=== PATIENT | female | born 1960 | race Caucasian/White ===

== ENCOUNTER 2024-02-20 14:43 | Outpatient (AMB) | payer MEDICARE, MEDICAID, SELFPAY ==
[2024-02-20 14:55] VITALS: PULSE 79; O2SAT 97; BMI 54.9
--- NOTE | 2024-02-20 14:55 | MHC.OFFVIS ---
Vital Signs 02/20/24 14:55 Height 5 ft 2 in Weight 300 lb BMI 54.9 Pulse 79 Pulse Source Pulse Oximeter Pulse Oximetry (%) 97 Oxygen Delivery Method Room Air Intake Visit Reasons: Chronic Low Back Pain Allergies No Known Allergies Allergy (Verified 02/20/24 17:25) HPI Comments Details: Lilli is a very pleasant 63-year-old who presents the office today for evaluation and management of their chronic right lower back pain Patient has been suffering with this pain for greater than 10 years, does endorse many accidents, falls and injuries in the past Right lower back pain with radiation down the thigh to the knee. Pain does not travel past the knee. Denies numbness, tingling, weakness of either lower extremity. History of bilateral knee replacements, does endorse chronic knee pain also Pain today is rated as a 10/10, constant. Pain is exacerbated by moving, bending, twisting, sitting for extended period of time, standing for extended period of time, doing housework. Patient is currently taking tramadol every 4-6 hours with oxycodone as needed. Cyclobenzaprine 10 mg 3 times daily as needed. Meloxicam daily. All without improvement of the pain. Currently attending formal physical therapy as well as seeing a physical therapist on their own. Working on core strength but there pain persists. Currently also doing home exercise therapy and water aerobics Patient has been using a sacroiliac joint belt without improvement of her pain. Endorses some urinary dribbling over the last several months, denies any loss of bladder without sensory awareness. Denies saddle anesthesia. Denies loss of bowel. In terms of muscle damage condition is described as spasming, stabbing, sharp, shooting, tiring, exhausting, cramping, numb. Pain is negatively impacting patient's enjoyment of life, general activity, recreational activities, relationships with people, sleep, walking, dressing, yd work, cooking, hygiene, housework. Review of Systems Const All systems reviewed & are unremarkable except as noted in HPI and below Physical Exam Vital Signs: Last Vital Signs Pulse 79 02/20/24 14:55 Pulse Ox 97 02/20/24 14:55 Oxygen Delivery Method Room Air 02/20/24 14:55 BMI result Body Mass Index 54.9 General: awake, alert, oriented. Answers questions appropriately. Fully engaged in examination. Skin: warm, dry, intact HEENT: Normocephalic. Hearing intact. Cardiac: External chest normal in appearance. Respiratory: No cough, audible wheezing or stridor. Abdomen: without gross distension. MS: No obvious swelling or deformities. Able to transition from sit to stand unassisted. Ambulates with bilaterally normal heel strike and toe off Bilateral lower extremity strength 5/5 Tenderness over right PSIS [place] positive in the right Thigh thrust positive on the right SI compression positive on the right SLR negative bilaterally Decreased range of motion of lumbar spine Facet loading positive Neurological: Oriented to person, place, time and situation. Thought process intact. Ambulates with the use of a cane/walker Psychiatric: Appropriate mood and affect. Good judgment and insight. Results Reviewed Results Reviewed: 06/2023 XR LS 04/2022 MRI LS Assessment & Plan Assessment & Plan (1) Sacroiliac joint dysfunction of right side: Code(s): M53.3 - Sacrococcygeal disorders, not elsewhere classified Category: Medical (2) Bilateral knee pain: Code(s): M25.561 - Pain in right knee; M25.562 - Pain in left knee Category: Medical Plan Patient presents the office today for evaluation management of their chronic right lower back pain History, physical exam and provocative testing consistent with right sacroiliac joint dysfunction Patient has exhausted conservative therapy including SI belt, PT, home exercise program, nonsteroidal anti-inflammatory medications, prescription medications, aquatherapy and aepe-cha-gthpiqa medications Discussed options for treatment including diagnostic interventional testing, epidural steroid injections, peripheral nerve stimulation with Sprint, RFA and more permanent neuromodulation. Informational pamphlets provided. TENS unit ordered, pamphlet provided to patient with instructions for use. There will be no call from the [employer] to the injury delivery of the device and supplies. Will schedule for diagnostic right sacroiliac joint injection under fluoroscopy guidance with local anesthetic. All questions and concerns have been answered and patient agrees with the plan. Follow up after injections and sooner if needed. Coding Level of Care Code New Pt Level 4 (56549) Diagnoses Sacroiliac joint dysfunction of right side M53.3 Bilateral knee pain M25.561; M25.562
== END 2024-02-20 17:00 | disposition home or self-care (01) ==
PROVIDERS: PCP Pediatrics; Referring Provider Pediatrics; Visit Provider Registered Nurse Emergency
DX: M53.3 Sacrococcygeal disorders, not elsewhere classified (principal); M25.561 Pain in right knee; M25.562 Pain in left knee
CPT/HCPCS: 99204

== ENCOUNTER → 2024-02-20 14:43 | Outpatient (BNVA) | payer MEDICARE, MEDICAID, SELFPAY | PROVIDERS: PCP Pediatrics; Referring Provider Pediatrics; Visit Provider Registered Nurse Emergency | DX: M53.3 Sacrococcygeal disorders, not elsewhere classified (principal); M25.561 Pain in right knee; M25.562 Pain in left knee | CPT/HCPCS: 99202 ==

== ENCOUNTER 2024-04-15 07:08 | Outpatient (REF) | payer MEDICARE, MEDICAID, SELFPAY | END 2024-04-15 07:09 | disposition home or self-care (01) | LOC: CF 07:08 | PROVIDERS: Visit Provider Anesthesiology | DX: M53.3 Sacrococcygeal disorders, not elsewhere classified (principal); M25.561 Pain in right knee; M25.562 Pain in left knee | CPT/HCPCS: 27096; J2795; Q9967 ==

== ENCOUNTER 2024-04-15 09:20 | Outpatient (AMB) | payer MEDICARE, MEDICAID, SELFPAY ==
--- NOTE | 2024-04-15 09:27 | MHC.OFFVIS ---
Vital Signs 04/15/24 09:41 04/15/24 10:58 BP 172/75 H 180/90 H Blood Pressure Location Lt radial Lt radial Position Sitting Sitting Respiration 16 16 Pulse 67 65 Pulse Source Pulse Oximeter Pulse Oximeter Pulse Oximetry (%) 97 98 Oxygen Delivery Method Room Air Room Air Comment pre-op post-op Intake Visit Reasons: RIGHT DIAGNOSTIC SIJ INJECTION Allergies No Known Allergies Allergy (Verified 04/15/24 10:58) Physical Exam Vital Signs: Last Vital Signs Pulse 65 04/15/24 10:58 Resp 16 04/15/24 10:58 BP 180/90 H 04/15/24 10:58 Pulse Ox 98 04/15/24 10:58 Oxygen Delivery Method Room Air 04/15/24 10:58 Assessment & Plan Assessment & Plan (1) Sacroiliac joint dysfunction of right side: Code(s): M53.3 - Sacrococcygeal disorders, not elsewhere classified Category: Medical Plan: Right diagnostic sacroiliac joint injection Informed consent was explained thoroughly to the patient. All questions about benefits and risks for the procedure were answered. Patient came to the operating room and was positioned prone on the operating table with the pillow under the abdomen. Time out was performed delineating name and of the patient, allergies and the nature of the procedure. The lower back and buttocks of the patient were prepped with ChloraPrep prepped and draped with sterile utility towels. C-arm was brought over the operating field and sq picture of patient's pelvis was demonstrated on the screen. For the right joint tilting C-arm contralateral to the site of the joint the most posterior portion of the joints was superimposed with anterior silhouette of the joint. large SI joint insufficiency was noted on the screen. Skin was injected in the projection of the joint slightly medial to the location of the joint with 25 gauge 1/2 inch needle using local lidocaine 2% .After that 22 gauge 3 and 1/2 inch needle was driven to the right joint in tunnel vision fashion. When needle entered the joint capsule injection of the contrast was performed demonstrating intra-articular and minimally periarticular spread of the contrast. After that 5 cc. of ropivacaine 0.5% was injected into the joint. Upon completion of the injections the needle was removed Sterile dressing was applied. Upon completion of the injection patient was taken outside of the operating room to the recovery room where recovered uneventfully. (2) Bilateral knee pain: Code(s): M25.561 - Pain in right knee; M25.562 - Pain in left knee Category: Medical Plan Patient presents the office today for evaluation management of their chronic right lower back pain History, physical exam and provocative testing consistent with right sacroiliac joint dysfunction Patient has exhausted conservative therapy including SI belt, PT, home exercise program, nonsteroidal anti-inflammatory medications, prescription medications, aquatherapy and iadx-yza-zcvxnpl medications Discussed options for treatment including diagnostic interventional testing, epidural steroid injections, peripheral nerve stimulation with Sprint, RFA and more permanent neuromodulation. Informational pamphlets provided. TENS unit ordered, pamphlet provided to patient with instructions for use. There will be no call from the company to the injury delivery of the device and supplies. Will schedule for diagnostic right sacroiliac joint injection under fluoroscopy guidance with local anesthetic. All questions and concerns have been answered and patient agrees with the plan. Follow up after injections and sooner if needed. Orders: Orders FL guidance in treatment room Today M53.3 - Sacrococcygeal disorders, not elsewhere classified Coding Level of Care Code Procedure Only Diagnoses Sacroiliac joint dysfunction of right side M53.3 Bilateral knee pain M25.561; M25.562
[2024-04-15 09:41] VITALS: BP 172/75; PULSE 67; RESP 16; O2SAT 97
[2024-04-15 10:58] VITALS: BP 180/90; PULSE 65; RESP 16; O2SAT 98
== END 2024-04-15 10:56 | disposition home or self-care (01) ==
LOC: HO.PMCPRC 09:20
PROVIDERS: PCP Pediatrics; Visit Provider Anesthesiology
DX: M53.3 Sacrococcygeal disorders, not elsewhere classified (principal); M25.561 Pain in right knee; M25.562 Pain in left knee
CPT/HCPCS: 27096

== ENCOUNTER 2024-04-17 18:06 | Outpatient (REF) | payer MEDICARE, MEDICAID, SELFPAY ==
--- NOTE | ~2024-04-17 | MR_ITS ---
EXAMINATION: MR LUMBAR SPINE WITHOUT CONTRAST CLINICAL INFORMATION: Lower back pain. COMPARISON: None available. TECHNIQUE: MRI of the lumbar spine was obtained using routine sequences without contrast. FINDINGS: Minimal left convex curvature of the lumbar spine. Degenerative grade 1 anterolisthesis of L4 on L5. Moderate degenerative disc disease from L2-S1. Mild degenerative disc disease at all additional levels. Associated mixed Modic type discogenic endplate changes including Modic type I discogenic edema from T12-S1 . Mild marrow edema within the posterior elements of L3-S1 consistent with degenerative stress reaction. No additional suspicious marrow edema. The vertebral body heights are well-maintained. The conus medullaris terminates at the level of L1. The distal spinal cord is normal in appearance. No significant abnormalities of the paraspinal musculature. Limited evaluation of the intra-abdominal structures without significant abnormalities. The abdominal aorta is of normal contour and caliber. AXIAL SPINAL LEVELS: L1-L2: Mild diffuse disc bulge. There is mild bilateral facet joint arthropathy. There is mild bilateral neural foraminal stenosis. There is no spinal canal stenosis. L2-L3: Mild diffuse disc bulge. There is severe right and moderate left facet joint arthropathy. There is moderate bilateral neural foraminal stenosis. There is stenosis of the subarticular zones with moderate spinal canal stenosis centrally. L3-L4: Moderate diffuse disc bulge with posterior osseous ridging. There is moderate bilateral facet joint arthropathy. There is severe bilateral neural foraminal stenosis. There is stenosis of the subarticular zones with moderate spinal canal stenosis centrally. L4-L5: Prominent diffuse disc bulge exacerbated by uncovering from anterolisthesis. There is severe bilateral facet joint arthropathy. There is moderate to severe bilateral neural foraminal stenosis. There is stenosis of the subarticular zones with moderate to severe spinal canal stenosis centrally. L5-S1: Moderate diffuse disc bulge. Left lateral osteophyte complex abutting the exited left L5 nerve root. There is severe right and moderate left facet joint arthropathy. There is moderate to severe left and moderate right neural foraminal stenosis. There is narrowing of the subarticular zones with no overt spinal canal stenosis centrally. MR/MR lumbar spine wo con IMPRESSION: Moderate to advanced multilevel degenerative spondyloarthropathy of the lumbar spine as described in detail above. Most notably, there is moderate to severe spinal canal stenosis at L4-L5. Moderate spinal canal stenoses at L2-L3 and L3-L4. Narrowing/stenoses of the subarticular zones from L2-S1. Moderate to severe neural foraminal stenoses from L2-S1. Electronically signed by: Ton Del Castillo DO 04/24/2024 02:44 PM EDT
== END 2024-04-17 18:07 | disposition home or self-care (01) ==
LOC: HO.MRI 18:06
PROVIDERS: PCP Pediatrics; Visit Provider Registered Nurse Emergency
DX: M54.50 Low back pain, unspecified (principal)
CPT/HCPCS: 72148

== ENCOUNTER 2024-04-18 10:56 | Outpatient (AMB) | payer MEDICARE, MEDICAID, SELFPAY ==
--- NOTE | 2024-04-18 15:05 | A.OFFVIS_ITS ---
Intake Visit Reasons: RIGHT DIAGNOSTIC SIJ INJECTION/05/06/24 Allergies No Known Allergies Allergy (Verified 04/15/24 10:58) HPI Comments Details: Telephone visit performed today for follow-up, 2 days status post right diagnostic sacroiliac joint injection She reports for 3 hours after the procedure she had no pain and her mobility was significantly improved. After this pain continued to improve though she did find that the instability and difficulty with walking and lifting her right leg remained Overall she would reports 80% pain relief in the hours after the procedure. She would like referral to spine surgeon can evaluate her for SI fusion with external hardware Intake note: Lilli is a very pleasant 63-year-old who presents the office today for evaluation and management of their chronic right lower back pain Patient has been suffering with this pain for greater than 10 years, does endorse many accidents, falls and injuries in the past Right lower back pain with radiation down the thigh to the knee. Pain does not travel past the knee. Denies numbness, tingling, weakness of either lower extremity. History of bilateral knee replacements, does endorse chronic knee pain also Pain today is rated as a 10/10, constant. Pain is exacerbated by moving, bending, twisting, sitting for extended period of time, standing for extended period of time, doing housework. Patient is currently taking tramadol every 4-6 hours with oxycodone as needed. Cyclobenzaprine 10 mg 3 times daily as needed. Meloxicam daily. All without improvement of the pain. Currently attending formal physical therapy as well as seeing a physical therapist on their own. Working on core strength but there pain persists. Currently also doing home exercise therapy and water aerobics Patient has been using a sacroiliac joint belt without improvement of her pain. Endorses some urinary dribbling over the last several months, denies any loss of bladder without sensory awareness. Denies saddle anesthesia. Denies loss of bowel. In terms of muscle damage condition is described as spasming, stabbing, sharp, shooting, tiring, exhausting, cramping, numb. Pain is negatively impacting patient's enjoyment of life, general activity, recreational activities, relationships with people, sleep, walking, dressing, yd work, cooking, hygiene, housework. Review of Systems Const All systems reviewed & are unremarkable except as noted in HPI and below Physical Exam Vital signs and physical exam deferred, telephone visit only Telehealth Telehealth Telehealth Platform: Telephone Location of provider rendering services: practice address Location of patient: address on file Patient Identification confirmed using: Name, : Yes Telehealth method: voice only Patient verbally consented to treatment: Yes Patient verbally consented to billing insurance company: Yes Patient informed of any privacy concerns related to visit: Yes Minutes spent on Phone/Video with Pt.: 32 Results Reviewed Results Reviewed: 06/2023 XR LS 04/2022 MRI LS Assessment & Plan Assessment & Plan (1) Sacroiliac joint dysfunction of right side: Code(s): M53.3 - Sacrococcygeal disorders, not elsewhere classified Category: Medical (2) Bilateral knee pain: Code(s): M25.561 - Pain in right knee; M25.562 - Pain in left knee Category: Medical (3) Gait instability: Code(s): R26.81 - Unsteadiness on feet Category: Medical Plan Telephone visit completed today for follow-up, today status post right diagnostic sacroiliac joint injection Reports 80% pain relief with the hours after the procedure with improvement in function and mobility. Pain has now returned. Order placed for occupational therapy to assist with ambulation Patient has exhausted conservative therapy including SI belt, PT, home exercise program, nonsteroidal anti-inflammatory medications, prescription medications, aquatherapy and [id number]-[id number] medications Will schedule for therapeutic right sacroiliac joint injection under fluoroscopy guidance with local anesthetic. Referral placed for neuro spine at [facility] to discuss SI fusion with external hardware. All questions and concerns have been answered and patient agrees with the plan. Follow up after injections and sooner if needed. Orders: Orders 2 OT Evaluation and Treatment Today M53.3 - Sacrococcygeal disorders, not elsewhere classified, R26.81 - Unsteadiness on feet Referrals 2 Neuro Spine Referral M53.3 - Sacrococcygeal disorders, not elsewhere classified, R26.81 - Unsteadiness on feet Medications: New 2 methocarbamol No driving while taking this medication. Do no take with alcohol or other [employer] Depressants 500 mg PO TID PRN 90 tabs 1RF muscle spasm Coding Level of Care Code Tele Est Pt Level 3 (71180) Complex EM visit Add On G2211 Diagnoses Sacroiliac joint dysfunction of right side M53.3 Bilateral knee pain M25.561; M25.562 Gait instability R26.81
== END 2024-04-18 11:09 | disposition home or self-care (01) ==
PROVIDERS: PCP Pediatrics; Visit Provider Registered Nurse Emergency
DX: M53.3 Sacrococcygeal disorders, not elsewhere classified (principal); M25.561 Pain in right knee; M25.562 Pain in left knee; R26.81 Unsteadiness on feet
CPT/HCPCS: 99443

== ENCOUNTER → 2024-04-18 10:56 | Outpatient (BNVA) | payer MEDICARE, MEDICAID, SELFPAY | PROVIDERS: PCP Pediatrics; Visit Provider Registered Nurse Emergency ==

== ENCOUNTER 2024-04-24 10:43 | Outpatient (AMB) | payer MEDICARE, MEDICAID, SELFPAY ==
--- NOTE | 2024-04-24 10:27 | A.OFFVIS_ITS ---
Vital Signs 3 04/24/24 10:43 Height 5 ft 2 in Weight 300 lb BMI 54.9 Intake Visit Reasons: Med discussion Allergies No Known Allergies Allergy (Verified 04/24/24 10:44) HPI Comments Details: Telephone visit completed today for follow up, patient with some questions about medications Has been taking Methocarbamol with minimal effect, she was advised yesterday she can increase to 1000mg TID as needed. Has questions about dosing and when to take in regards to her other medications continues with right SIJ pain and reports worsening function and mobility using two canes and at times a walker for ambulation has appt with [facility] for eval next Sunday Prior: Telephone visit performed today for follow-up, 2 days status post right diagnostic sacroiliac joint injection She reports for 3 hours after the procedure she had no pain and her mobility was significantly improved. After this pain continued to improve though she did find that the instability and difficulty with walking and lifting her right leg remained Overall she would reports 80% pain relief in the hours after the procedure. She would like referral to spine surgeon can evaluate her for SI fusion with external hardware Intake note: Lilli is a very pleasant 63-year-old who presents the office today for evaluation and management of their chronic right lower back pain Patient has been suffering with this pain for greater than 10 years, does endorse many accidents, falls and injuries in the past Right lower back pain with radiation down the thigh to the knee. Pain does not travel past the knee. Denies numbness, tingling, weakness of either lower extremity. History of bilateral knee replacements, does endorse chronic knee pain also Pain today is rated as a 10/10, constant. Pain is exacerbated by moving, bending, twisting, sitting for extended period of time, standing for extended period of time, doing housework. Patient is currently taking tramadol every 4-6 hours with oxycodone as needed. Cyclobenzaprine 10 mg 3 times daily as needed. Meloxicam daily. All without improvement of the pain. Currently attending formal physical therapy as well as seeing a physical therapist on their own. Working on core strength but there pain persists. Currently also doing home exercise therapy and water aerobics Patient has been using a sacroiliac joint belt without improvement of her pain. Endorses some urinary dribbling over the last several months, denies any loss of bladder without sensory awareness. Denies saddle anesthesia. Denies loss of bowel. In terms of muscle damage condition is described as spasming, stabbing, sharp, shooting, tiring, exhausting, cramping, numb. Pain is negatively impacting patient's enjoyment of life, general activity, recreational activities, relationships with people, sleep, walking, dressing, yd work, cooking, hygiene, housework. Review of Systems Const All systems reviewed & are unremarkable except as noted in HPI and below Physical Exam Vital signs and physical exam deferred, telephone visit only Telehealth Telehealth Telehealth Platform: Telephone Location of provider rendering services: practice address Location of patient: address on file Patient Identification confirmed using: Name, : Yes Telehealth method: voice only Patient verbally consented to treatment: Yes Patient verbally consented to billing insurance company: Yes Patient informed of any privacy concerns related to visit: Yes Minutes spent on Phone/Video with Pt.: 14 Results Reviewed Results Reviewed: 06/2023 XR LS 04/2022 MRI LS Assessment & Plan Assessment & Plan (1) Sacroiliac joint dysfunction of right side: Code(s): M53.3 - Sacrococcygeal disorders, not elsewhere classified Category: Medical (2) Bilateral knee pain: Code(s): M25.561 - Pain in right knee; M25.562 - Pain in left knee Category: Medical (3) Gait instability: Code(s): R26.81 - Unsteadiness on feet Category: Medical Plan Telephone visit completed today for follow-up Lengthy discussion today with patient about methocarbamol, all questions were answered Previously reported 80% pain relief with the hours after the diagnostic right SIJ injection with improvement in function and mobility. She has exhausted conservative therapy including SI belt, PT, home exercise program, nonsteroidal anti-inflammatory medications, prescription medications, aquatherapy and ombc-web-hfywadj medications Will schedule for therapeutic right sacroiliac joint injection under fluoroscopy guidance with local anesthetic. C/W plan for evaluation with [facility] for SIJ fusion with external hardware on Sunday04/28/24. All questions and concerns have been answered and patient agrees with the plan. Follow up after injections and sooner if needed. Coding Level of Care Code Tele Est Pt Level 3 (36051) Complex EM visit Add On G2211 Diagnoses Sacroiliac joint dysfunction of right side M53.3 Bilateral knee pain M25.561; M25.562 Gait instability R26.81
[2024-04-24 10:43] VITALS: BMI 54.9
== END 2024-04-24 10:43 | disposition home or self-care (01) ==
LOC: HO.PMC 10:43
PROVIDERS: PCP Pediatrics; Visit Provider Registered Nurse Emergency
DX: M53.3 Sacrococcygeal disorders, not elsewhere classified (principal); M25.561 Pain in right knee; M25.562 Pain in left knee; R26.81 Unsteadiness on feet
CPT/HCPCS: 99442

== ENCOUNTER → 2024-04-24 10:43 | Outpatient (BNVA) | payer MEDICARE, MEDICAID, SELFPAY | PROVIDERS: PCP Pediatrics; Visit Provider Registered Nurse Emergency ==

== ENCOUNTER 2024-06-05 14:29 | Outpatient (AMB) | payer MEDICARE, MEDICAID, SELFPAY ==
--- NOTE | 2024-06-05 15:01 | MHC.OFFVIS ---
Intake Visit Reasons: FU patient concerns Allergies No Known Allergies Allergy (Verified 04/24/24 10:44) HPI Comments Details: Telephone visit completed today for follow-up, review of recent MRI and x-rays. Imaging reviewed, results as per below Radiology findings reviewed with patient, questions and concerns were answered. She has been working to find an orthopedic office that will not discriminate because of her weight. She has been unsuccessful so far, unable to find anybody who would be willing to proceed with hip replacement surgery. Finding this frustrating as she is suffering in pain and her mobility/function are declining. Prior: Telephone visit completed today for follow up, patient with some questions about medications Has been taking Methocarbamol with minimal effect, she was advised yesterday she can increase to 1000mg TID as needed. Has questions about dosing and when to take in regards to her other medications continues with right SIJ pain and reports worsening function and mobility using two canes and at times a walker for ambulation has appt with [facility] for eval next Sunday Prior: Telephone visit performed today for follow-up, 2 days status post right diagnostic sacroiliac joint injection She reports for 3 hours after the procedure she had no pain and her mobility was significantly improved. After this pain continued to improve though she did find that the instability and difficulty with walking and lifting her right leg remained Overall she would reports 80% pain relief in the hours after the procedure. She would like referral to spine surgeon can evaluate her for SI fusion with external hardware Intake note: Lilli is a very pleasant 63-year-old who presents the office today for evaluation and management of their chronic right lower back pain Patient has been suffering with this pain for greater than 10 years, does endorse many accidents, falls and injuries in the past Right lower back pain with radiation down the thigh to the knee. Pain does not travel past the knee. Denies numbness, tingling, weakness of either lower extremity. History of bilateral knee replacements, does endorse chronic knee pain also Pain today is rated as a 10/10, constant. Pain is exacerbated by moving, bending, twisting, sitting for extended period of time, standing for extended period of time, doing housework. Patient is currently taking tramadol every 4-6 hours with oxycodone as needed. Cyclobenzaprine 10 mg 3 times daily as needed. Meloxicam daily. All without improvement of the pain. Currently attending formal physical therapy as well as seeing a physical therapist on their own. Working on core strength but there pain persists. Currently also doing home exercise therapy and water aerobics Patient has been using a sacroiliac joint belt without improvement of her pain. Endorses some urinary dribbling over the last several months, denies any loss of bladder without sensory awareness. Denies saddle anesthesia. Denies loss of bowel. In terms of muscle damage condition is described as spasming, stabbing, sharp, shooting, tiring, exhausting, cramping, numb. Pain is negatively impacting patient's enjoyment of life, general activity, recreational activities, relationships with people, sleep, walking, dressing, yd work, cooking, hygiene, housework. Review of Systems Const All systems reviewed & are unremarkable except as noted in HPI and below Physical Exam Vital signs and physical exam deferred, telephone visit only Telehealth Telehealth Telehealth Platform: Telephone Location of provider rendering services: practice address Location of patient: address on file Patient Identification confirmed using: Name, : Yes Telehealth method: voice only Patient verbally consented to treatment: Yes Patient verbally consented to billing insurance company: Yes Patient informed of any privacy concerns related to visit: Yes Minutes spent on Phone/Video with Pt.: 36 Results Reviewed Results Reviewed: 04/202404/17/24 MR/MR lumbar spine wo con FINDINGS: Minimal left convex curvature of the lumbar spine. Degenerative grade 1 anterolisthesis of L4 on L5. Moderate degenerative disc disease from L2-S1. Mild degenerative disc disease at all additional levels. Associated mixed Modic type discogenic endplate changes including Modic type I discogenic edema from T12-S1 . Mild marrow edema within the posterior elements of L3-S1 consistent with degenerative stress reaction. No additional suspicious marrow edema. The vertebral body heights are well-maintained. The conus medullaris terminates at the level of L1. The distal spinal cord is normal in appearance. No significant abnormalities of the paraspinal musculature. Limited evaluation of the intra-abdominal structures without significant abnormalities. The abdominal aorta is of normal contour and caliber. AXIAL SPINAL LEVELS: L1-L2: Mild diffuse disc bulge. There is mild bilateral facet joint arthropathy. There is mild bilateral neural foraminal stenosis. There is no spinal canal stenosis. L2-L3: Mild diffuse disc bulge. There is severe right and moderate left facet joint arthropathy. There is moderate bilateral neural foraminal stenosis. There is stenosis of the subarticular zones with moderate spinal canal stenosis centrally. L3-L4: Moderate diffuse disc bulge with posterior osseous ridging. There is moderate bilateral facet joint arthropathy. There is severe bilateral neural foraminal stenosis. There is stenosis of the subarticular zones with moderate spinal canal stenosis centrally. L4-L5: Prominent diffuse disc bulge exacerbated by uncovering from anterolisthesis. There is severe bilateral facet joint arthropathy. There is moderate to severe bilateral neural foraminal stenosis. There is stenosis of the subarticular zones with moderate to severe spinal canal stenosis centrally. L5-S1: Moderate diffuse disc bulge. Left lateral osteophyte complex abutting the exited left L5 nerve root. There is severe right and moderate left facet joint arthropathy. There is moderate to severe left and moderate right neural foraminal stenosis. There is narrowing of the subarticular zones with no overt spinal canal stenosis centrally. IMPRESSION: Moderate to advanced multilevel degenerative spondyloarthropathy of the lumbar spine as described in detail above. Most notably, there is moderate to severe spinal canal stenosis at L4-L5. Moderate spinal canal stenoses at L2-L3 and L3-L4. Narrowing/stenoses of the subarticular zones from L2-S1. Moderate to severe neural foraminal stenoses from L2-S1. 06/2023 XR LS 04/2022 MRI LS Assessment & Plan Assessment & Plan (1) Sacroiliac joint dysfunction of right side: Code(s): M53.3 - Sacrococcygeal disorders, not elsewhere classified Category: Medical (2) Bilateral knee pain: Code(s): M25.561 - Pain in right knee; M25.562 - Pain in left knee Category: Medical (3) Gait instability: Code(s): R26.81 - Unsteadiness on feet Category: Medical (4) Spinal stenosis: Code(s): M48.00 - Spinal stenosis, site unspecified Category: Medical Plan Telephone visit completed today for follow-up Review of recent MRI, results as per above. Patient has exhausted conservative therapy including SI belt, PT, home exercise program, nonsteroidal anti-inflammatory medications, prescription medications, aquatherapy and kbva-fvq-iuviajp medications Continue with plan for right therapeutic sacroiliac joint injection in one-week C/W plan for follow up with [facility] neuro spine All questions and concerns have been answered and patient agrees with the plan. Follow up after injections and sooner if needed. Coding Level of Care Code Tele Est Pt Level 3 (53351) Complex EM visit Add On G2211 Diagnoses Sacroiliac joint dysfunction of right side M53.3 Bilateral knee pain M25.561; M25.562 Gait instability R26.81 Spinal stenosis M48.00
== END 2024-06-05 15:08 | disposition home or self-care (01) ==
LOC: HO.PMC 14:30
PROVIDERS: PCP Pediatrics; Visit Provider Registered Nurse Emergency
DX: M53.3 Sacrococcygeal disorders, not elsewhere classified (principal); M25.561 Pain in right knee; M25.562 Pain in left knee; R26.81 Unsteadiness on feet; M48.00 Spinal stenosis, site unspecified
CPT/HCPCS: 99443

== ENCOUNTER 2024-06-10 06:22 | Outpatient (REF) | payer MEDICARE, MEDICAID, SELFPAY | END 2024-06-10 06:23 | disposition home or self-care (01) | LOC: CF 06:22 | PROVIDERS: Visit Provider Anesthesiology | DX: Z13.89 Encounter for screening for other disorder (principal) ==

== ENCOUNTER 2024-06-24 06:44 | Outpatient (REF) | payer MEDICARE, MEDICAID, SELFPAY | END 2024-06-24 06:45 | disposition home or self-care (01) | LOC: CF 06:44 | PROVIDERS: Visit Provider Anesthesiology | DX: M53.3 Sacrococcygeal disorders, not elsewhere classified (principal); M48.00 Spinal stenosis, site unspecified; M54.50 Low back pain, unspecified | CPT/HCPCS: 27096; J2003; J2795; J3301; Q9967 ==

== ENCOUNTER 2024-06-24 14:05 | Outpatient (AMB) | payer MEDICARE, MEDICAID, SELFPAY ==
--- OUTSIDE RECORDS SUMMARY | 2024-06-24 14:07 | XMS_ITS | Continuity of Care Document ---
Author Organization [facility] Address [address] [place] [address]- Care Team Providers Care Morgue Librarian Name Role Phone Vivi HENNING, Celestina Givens Primary Care Physician Encounter [facility] Date(s): 04/29/24 - 05/29/24 [facility] [address] [place] [address]- Allergies, Adverse Reactions, Alerts No Known Allergies Immunizations Given and Recorded Vaccine Date Status Refusal Reason influenza virus vaccine, inactivated 1 07/13/23 Gi hali influenza virus vaccine, inactivated 06/08/22 Give n influenza virus vaccine, inactivated 05/06/21 Give n influenza virus vaccine, inactivated 06/08/20 Give n influenza virus vaccine, inactivated 2 05/27/19 Gi hali influenza virus vaccine, inactivated 3 05/25/18 Gi hali influenza virus vaccine, inactivated 4 08/20/17 Gi hali influenza virus vaccine, inactivated 05/17/16 Give n influenza virus vaccine, inactivated 08/11/15 Give n influenza virus vaccine, inactivated 5 07/31/12 Gi hali tetanus/diphtheria/pertussis, acel(Tdap) 6 08/21/22 Given tetanus/diphtheria/pertussis, acel(Tdap) 7 08/13/12 Given [id number] 12y+ bivalent booster vax 06/14/22 Recorded SARS-CoV-2 mRNA ([id number]) vax 02/14/22 Recorded SARS-CoV-2 (COVID-19) mRNA BNT-162b2 vac 05/06/21 Given SARS-CoV-2 (COVID-19) mRNA BNT-162b2 vac 11/04/20 Recorded SARS-CoV-2 (COVID-19) mRNA BNT-162b2 vac 10/14/20 Recorded pneumococcal 23-valent vaccine 8 04/07/19 Given 1Result Comment: screening negative 2Result Comment: [facility]# [id number] 3Result Comment: [05/25/2018] seqirus lot number [id number] exp 01/26/2019 [facility] [id number] 4Result Comment: [08/20/2017] [facility] [id number] 5Admin Note: VIM dated 01/29/12 GIVEN TODAY 6Result Comment: [facility]# [id number] 7Admin Note: VIM dated 08/22/11 GIVEN TODAY 8Result Comment: [facility]#[id number] Medications acetaminophen 500 mg oral capsule 2 capsule = 1,000 mg, By Mouth, 2 times a day, 0 Refills, Maintenance, 07/25/21 16:23:00 EST, Partial fill upon patient request if the prescription is for a schedule II opioid drug. Start Date: 07/25/21 Status: Ordered Aerochamber w/Mask (Medium) See Instructions, # 1 each, Maintenance, Use as directed with albuterol inhaler. Asthma ICD 10 codeJ45.909, 08/15/19 7:50:00 EST, Compound, 161, cm, 08/12/19 12:43:00 EST, Height Start Date: 08/15/19 Status: Ordered amoxicillin 500 mg oral tablet 4 tablet = 2,000 mg, By Mouth, Once, Prior to dental work, # 4 tablet, 1 Refills, Soft Stop, 12/06/23 17:28:00 EDT, [facility]/pharmacy #5, Partial fill upon patient request if the prescription is for a schedule II opioid drug., 157.5, cm, 10/18/23 15:15:... Start Date: 12/06/23 Status: Ordered cilostazol 100 mg oral tablet 60 each, 0 Refill(s), TAKE 1 TABLET BY MOUTH TWICE A DAY, 0 Refills, 03/14/23 10:59:00 EDT, Partialfill upon patient request if the prescription is for a schedule II opioid drug. Start Date: 03/14/23 Status: Ordered Compression Stockings See Instructions, # 2 each, Refills 2, Tot. Refills 2, Maintenance, surgical, calf length 20-30 mm Hg Dx: venous insufficiency, 07/01/22 6:53:00 EST, Compound, 158, cm, 06/09/22 11:21:00 EST, Height,143, kg, 01/04/21 10:42:00 EDT, Dry Weight Start Date: 07/01/22 Status: Ordered Compression Stockings See Instructions, # 3 each, Maintenance, surgical, calf length 20-30 mm Hg Venous insufficiency. (187.2), 10/30/22 16:07:00 EDT, Venous insufficiency. (187.2), Supply Start Date: 10/30/22 Status: Ordered cyclobenzaprine 10 mg oral tablet 10 mg, 1, tablet, By Mouth, 3 times a day, PRN, # 30 tablet, Refills 0, Tot. Refills 0, Maintenance, for spasm, 05/17/24 16:46:00 EDT, Route to Pharmacy Electronically, [facility]/pharmacy #2024, Partial fill upon patient request if the prescription is for a... Start Date: 05/17/24 Status: Ordered diclofenac 1% topical gel See Instructions, APPLY TO AFFECTED AREA 4 TIMES A DAY. NOT COVERED, # 100 Gm, 1 Refills, Maintenance, 04/22/24 15:15:00 EDT, [facility]/pharmacy #2024, 30, APPLY TO AFFECTED AREA 4 TIMES A DAY. NOT COVERED, 157.5, cm, 02/12/24 14:48:00 EDT, Height, 145.9, k... Start Date: 04/22/24 Status: Ordered diclofenac 1% topical gel See Instructions, APPLY TO AFFECTED AREA 4 TIMES A DAY, # 100 Gm, 1 Refills, Maintenance, 11/07/23 7:48:00 EDT, [facility]/pharmacy #2024, 25, APPLY TO AFFECTED AREA 4 TIMES A DAY, 157.5, cm, 10/18/23 15:15:00 EDT, Height, 145.9, kg, 05/22/23 7:39:00 EDT, . Start Date: 11/07/23 Status: Ordered Dulera 50 mcg-5 mcg/inh inhalation aerosol 2 puffs, Inhalation, 2 times a day, PRN Other, as needed for cough, wheezing, or shortness of breath; may use up to 4 times daily for up to 1 week due to acute symptoms but notify prescriber if needing longer. Rinse mouth and throat after use., # 13 G... Start Date: 08/29/23 Status: Ordered Flonase 50 mcg/inh nasal spray See Instructions, 2 sprays Nares twice daily x 1 week, then once daily x 1-2 weeks until symptoms improve, # 16 Gm, 0 Refills, Maintenance, 02/28/21 16:31:00 EDT, [place], [facility]/pharmacy #2025, Partial fill upon patient request if the prescription is for... Start Date: 02/28/21 Status: Ordered FLUoxetine 10 mg oral capsule 1, capsule, By Mouth, Daily, INSTR:TO BE TAKEN WITH 20MG CAPSULES TO EQUAL 30MG DAILY, # 90 capsule, Refills 1, Maintenance, 01/25/24 9:11:00 EDT, Route to Pharmacy Electronically, [facility] STORE [id number], 157.5, cm, 01/22/24 10:31:00 EDT, Height, 145.9, kg,... Start Date: 01/25/24 Status: Ordered gabapentin 300 mg oral capsule 600 mg, 2, capsule, By Mouth, 3 times a day, # 180 capsule, Refills 3, Tot. Refills 3, Maintenance,08/25/22 22:35:00 EST, Route to Pharmacy Electronically, [facility]pharmacy #2025, Partial fill upon patient request if the prescription is for a schedule II... Start Date: 08/25/22 Status: Ordered Home Blood Pressure Monitor See Instructions, # 1 each, Maintenance, use to check pressure daily, 10/24/22 11:58:00 EDT, Pleaseensure available cuff will fit pt's arm or wrist, Supply Start Date: 10/24/22 Status: Ordered levothyroxine 150 mcg (0.15 mg) oral tablet 1 tablet, By Mouth, Daily, # 90 tablet, 1 Refills, Maintenance, 12/28/23 16:17:00 EDT, [facility] STORE [id number], 157.5, cm, 10/18/23 15:15:00 EDT, Height, 145.9, kg, 05/22/23 7:39:00 EDT, Dry Weight Start Date: 12/28/23 Status: Ordered meclizine 25 mg oral tablet See Instructions, PRN Dizziness, 1 tablet By Mouth 3 times a day, # 30 tablet, 0 Refills, Maintenance, 02/27/23 10:43:00 EDT, [facility], Partial fill upon patient request if the prescriptionis for a schedule II opioid drug., 157, cm, 2... Start Date: 02/27/23 Status: Ordered meloxicam 15 mg oral tablet See Instructions, TAKE 1 TABLET BY MOUTH DAILY WITH FOOD., # 30 tablet, 1 Refills, Maintenance, 03/28/24 7:37:00 EDT, [facility], 157.5, cm, 02/12/24 14:48:00 EDT, Height, 145.9, kg, 237:39:00 EDT, Dry Weight Start Date: 03/28/24 Status: Ordered metFORMIN 500 mg oral tablet, extended release 1 tablet = 500 mg, By Mouth, Daily, # 90 tablet, 1 Refills, Maintenance, 01/22/24 11:02:00 EDT, ER Tablet, [facility], Partial fill upon patient request if the prescription is for a schedule II opioid drug., 157.5, cm, 01/22/24 10:31:00 EDT, H... Start Date: 01/22/24 Status: Ordered oxyCODONE 5 mg oral tablet 5 mg, 1, tablet, By Mouth, Every 4 hours, PRN, you may filll this prescription for fewer pills. MASSpat reviewed, # 20 tablet, Refills 0, Tot. Refills 0, Maintenance, Pain , Severe, 05/28/24 16:27:00EDT, Route to Pharmacy Electronically, [facility]... Start Date: 05/28/24 Status: Ordered ROLLATOR WALKER with seat and wheels, HEAVY DUTY ROLLATOR WALKER with seat and wheels, HEAVY DUTY, See Instructions, # 1 each, Refills 0, Tot. Refills 0, Maintenance, use as directed. Diagnosis: osteoarthritis, Sacroiliiac dysfunction, sciatica, 02/22/24 8:47:00 EDT, Supply Start Date: 02/22/24 Status: Ordered Rollator wheeled walker with seat Rollator wheeled walker with seat, See Instructions, # 1 each, Refills 0, Tot. Refills 0, Maintenance, DX: Sacroiliac pain, 02/12/24 15:46:00 EDT, Supply Start Date: 02/12/24 Status: Ordered Splint See Instructions, # 1 each, Maintenance, left wrist short cock-up splint, 01/08/20 14:28:00 EDT, Supply Start Date: 01/08/20 Status: Ordered traMADol 50 mg oral tablet See Instructions, Take 2 tablets (100 mg) in the morning, 1 tab (50 mg) in afternoon,. and 1 tab (50 mg) at bedtime. Total of 4 tabs (200 mg) daily., # 81 tablet, 0 Refills, Maintenance, 11/29/23 15:24:00 EDT, [facility], 157.5, cm, 10/18/23 1... Start Date: 11/29/23 Status: Ordered traMADol 50 mg oral tablet 1 tablet = 50 mg, By Mouth, Every 4 hours, PRN for pain, max 5 tabs per day, # 140 tablet, 0 Refills, Maintenance, 03/28/24 16:39:00 EDT, Tablet, [facility], Partial fill upon patient requestif the prescription is for a schedule II opioid bairon... Start Date: 03/28/24 Status: Ordered Vitamin D3 2000 intl units oral capsule 2 capsule = 100 mcg, By Mouth, Daily, # 180 capsule, 1 Refills, Maintenance, 11/23/23 17:40:00 EDT,Capsule, [facility], Partial fill upon patient request if the prescription is for a schedule II opioid drug., 157.5, cm, 10/18/23 15:15:00 EDT,... Start Date: 11/23/23 Status: Ordered zolpidem 10 mg oral tablet 1 tablet = 10 mg, By Mouth, Daily at bedtime, # 30 tablet, 0 Refills, Maintenance, 05/08/24 17:33:00 EDT, [facility], Partial fill upon patient request if the prescription is for a schedule II opioid drug., 157.5, cm, 02/12/24 14:48:00 EDT, He... Start Date: 05/08/24 Status: Ordered Problem List Condition Confirmation Course Effective Dates Status H ealth Status Informant Acquired hypothyroidism Confirmed Active BMI 50.0-59.9, adult Confirmed Active Chronic low back pain Confirmed Active Drug-drug interaction Confirmed Active Eczema Confirmed Active Hirsutism Confirmed Active S/P hernia repair Confirmed Active Breast hypertrophy Confirmed Active Hyperkeratosis of skin Confirmed Active Asthma, mild persistent 1 Confirmed 07/01/22 Active Mixed anxiety and depressive disorder 2 Confirmed 07/01/22 Active Obesity Confirmed Active Obstructive sleep apnea on CPAP Confirmed Active Osteoarthritis of both knees Confirmed Active Osteomyelitis Confirmed Active Mild recurrent major depression Confirmed Active Severe obesity Confirmed Active Thromboangiitis obliterans Confirmed Active Diabetes mellitus, type 2 Confirmed Active 1Outside Source Comment: Last Assessment & Plan: I will give scheduled Combivent in place of an oral Ellipta. 2Outside Source Comment: Last Assessment & Plan: Continue outpatient medications. Social History Social History Type Response Smoking Status Former smoker, quit more than 30 days ago; Other: smoked up to pack a day x 25 years; entered on: 11/14/21 Sex Implantable Device List Procedure Provider Procedure Date Device Type Site Repair Hernia Umbilical Laparoscopic Yasemin Diaz MD 05/22/23 Unknown Umbilicus Device Identifier Serial Number Lot or Batch Number Manufacturing Date Expiration Date Distinct Identification Code MRI Safety Implantable Status Assigning Authority [id number] Unknown [id number] Unknown 08/26/24 Unknown Unknown Active GS1 Patient Care team information Care Team Personnel Name: Celestina Trinidad MD Position: [facility] Physician - Primary Care Member Role: PCP Address: Address: [address] [place] [address] Name: Hemalatha Lucas RN Position: [facility] RN Member Role: Primary Care Nurse Name: Lauren Mack RN Position: [facility] RN Member Role: Primary Care Nurse Name: Madelaine Ruiz RN Position: [facility] RN Member Role: Primary Care Nurse Name: Lora Santiago RN Position: [facility] SN RN Member Role: Primary Care Nurse Name: Mayco Ro RN Position: [facility] RN Member Role: Primary Care Nurse Name: Heydi Potts RN Position: [facility] SN RN Member Role: Primary Care Nurse Name: Janice Romano LPN Position: [facility] RN Member Role: Primary Care Nurse Name: Nadya Low RN Position: [facility] RN Member Role: Primary Care Nurse Name: Mirna Greenfield RN Position: [facility] RN Member Role: Primary Care Nurse Name: Nessa Bonilla RN Position: [facility] Tool Maintenance Technician Member Role: Primary Care Nurse Care Team Related Persons Name: ROSETTA, DINESH Address: [address] [place] [address] Name: BON DE Address: home [address] [address]
--- OUTSIDE RECORDS SUMMARY | 2024-06-24 14:07 | XMS_ITS | Continuity of Care Document ---
Author Organization [facility] Address [address] [place] [address]- Care Team Providers Care Skoog Machine Operator Name Role Phone Elder Good NP Primary Care Physician [phone] Encounter [facility] Date(s): 08/18/20 - 08/25/20 [facility] [address] [place] [address]- Encounter Diagnosis Low back pain(Discharge Diagnosis) - 08/22/20 Attending Physician: Elder Good NP Allergies, Adverse Reactions, Alerts Substance Reaction Severity Status NKA Active Immunizations Given and Recorded Vaccine Date Status Refusal Reason influenza virus vaccine, inactivated 06/08/20 Give n influenza virus vaccine, inactivated 1 05/27/19 Gi hali influenza virus vaccine, inactivated 2 05/25/18 Gi hali influenza virus vaccine, inactivated 3 08/20/17 Gi hali influenza virus vaccine, inactivated 05/17/16 Give n influenza virus vaccine, inactivated 08/11/15 Give n influenza virus vaccine, inactivated 4 07/31/12 Gi hali pneumococcal 23-valent vaccine 5 04/07/19 Given tetanus/diphtheria/pertussis, acel(Tdap) 6 08/13/12 Given 1Result Comment: [facility]# [id number] 2Result Comment: [05/25/2018] seqirus lot number [id number] exp 01/26/2019 [facility] [id number] 3Result Comment: [08/20/2017] [facility] [id number] 4Admin Note: VIM dated 01/29/12 GIVEN TODAY 5Result Comment: [facility]#[id number] 6Admin Note: VIM dated 08/22/11 GIVEN TODAY Medications Aerochamber w/Mask (Medium) See Instructions, # 1 each, Maintenance, Use as directed with albuterol inhaler. Asthma ICD 10 codeJ45.909, 08/15/19 7:50:00 EST, Compound, 161, cm, 08/12/19 12:43:00 EST, Height Start Date: 08/15/19 Status: Ordered albuterol CFC free 90 mcg/inh inhalation aerosol See Instructions, # 25.5 Unknown, Refills 2 Tot. Refills 2, INHALE 2 PUFFS EVERY 6 HOURS NEEDED FOR WHEEZE, [facility]/pharmacy #2024 Start Date: 05/27/19 Status: Ordered diclofenac 1% topical gel See Instructions, APPLY TOPICALLY 4 TIMES A DAY, # 100 Gm, 0 Refills, Maintenance, [facility] STORE ,25, APPLY TOPICALLY 4 TIMES A DAY, 161, cm, 06/08/20 13:48:00 EST, Height Start Date: 07/12/20 Status: Ordered FLUoxetine 20 mg oral capsule 20 mg, 1, capsule, By Mouth, Daily, # 30 capsule, Refills 5, Tot. Refills 5, Maintenance, 05/13/20 9:34:00 EDT, Route to Pharmacy Electronically, [facility]/pharmacy #2024, replacing 10mg dose, 161, cm, 05/13/20 8:28:00 EDT, Height Start Date: 05/13/20 Status: Ordered levothyroxine 0.137 mg oral tablet 1 tablet = 137 mcg, By Mouth, Daily, # 30 tablet, 3 Refills, Maintenance, 06/08/20 15:09:00 EST, Tablet, [facility]/pharmacy #2024, 161, cm, 06/08/20 13:48:00 EST, Height Start Date: 06/08/20 Stop Date: 10/06/20 Status: Ordered levothyroxine 125 mcg (0.125 mg) oral tablet 1 tablet = 125 mcg, By Mouth, Daily, # 30 tablet, 5 Refills, Maintenance, 05/13/20 9:34:00 EDT, Tablet, [facility]/pharmacy #2024, 161, cm, 05/13/20 8:28:00 EDT, Height Start Date: 05/13/20 Status: Ordered meloxicam 15 mg oral tablet 1 tablet = 15 mg, By Mouth, Daily, Take w food., # 30 tablet, 1 Refills, Maintenance, 07/08/20 11:31:00 EST, Tablet, [facility]/pharmacy #2025, Labs needed for further refills, 161, cm, 06/08/20 13:48:00 EST, Height Start Date: 07/08/20 Status: Ordered Splint See Instructions, # 1 each, Maintenance, left wrist short cock-up splint, 01/08/20 14:28:00 EDT, Supply Start Date: 01/08/20 Status: Ordered tiZANidine 2 mg oral tablet 2 mg, 1, tablet, By Mouth, Daily at bedtime, PRN, # 14 tablet, Refills 0, Tot. Refills 0, Maintenance, as needed for muscle spasm, 08/04/19 17:54:00 EST, Route to Pharmacy Electronically, [facility]/pharmacy #2024, 161, cm, 08/04/19 14:44:00 EST, Height Start Date: 08/04/19 Stop Date: 08/18/19 Status: Ordered traMADol 50 mg oral tablet 2 tablet = 100 mg, By Mouth, Every 12 hours, as needed for pain masspat checked, # 120 tablet, 2 Refills, Maintenance, 08/17/20 16:20:00 EST, [facility], 161, cm, 06/08/20 13:48:00 EST, Height Start Date: 08/17/20 Stop Date: 11/15/20 Status: Ordered zolpidem 10 mg oral tablet 1 tablet = 10 mg, By Mouth, Daily at bedtime, PRN for sleep, for 30 days, masspat check may fill less, # 30 tablet, 3 Refills, Acute 09/10/20 9:34:00 EST, 05/13/20 9:34:00 EDT, Tablet, [facility]/pharmacy #2024, 161, cm, 05/13/20 8:28:00 EDT, Height Start Date: 05/13/20 Stop Date: 09/10/20 Status: Ordered zolpidem 10 mg oral tablet 1 tablet = 10 mg, By Mouth, Daily at bedtime, PRN for sleep, for 30 days, masspat check may fill less, # 30 tablet, 3 Refills, Acute 01/08/21 9:34:00 EDT, 09/10/20 9:34:00 EST, Tablet, [facility], 161, cm, 08/18/20 15:29:00 EST, Height Start Date: 09/10/20 Stop Date: 01/08/21 Status: Ordered Problem List Condition Effective Dates Status Health Status Inform ant Acquired hypothyroidism(Confirmed) Active Asthma(Confirmed) Active BMI 50.0-59.9, adult(Confirmed) Active Eczema(Confirmed) Active Hirsutism(Confirmed) Active Obesity(Confirmed) Active Osteoarthritis of both knees(Confirmed) Active Mild recurrent major depression(Confirmed) Active Diagnosis Diagnosis Type Effective Dates Health Status Cl inical Service Informant Low back pain Discharge Diagnosis 08/22/20 Vital Signs Most recent to oldest [Reference Range]: 1 Height 161 cm (08/18/20 3:29 PM) Social History Social History Type Response Smoking Status Current every day oliva weinberg; Tobacco user in household: No; Type: Cigarettes; Tobacco use times per day: 1/2 ppd; entered on: 07/08/15 Sex
--- OUTSIDE RECORDS SUMMARY | 2024-06-24 14:07 | XMS_ITS | Continuity of Care Document ---
Author Organization [facility] Address [address] [place] [address]- Care Team Providers Care Pesticide Chemist Name Role Phone Yolanda AHN, Padmaja Pelayo Primary Care Physician En[place] [facility] [place](s): 11/14/21 - 12/14/21 [facility] [address] [place] [address]- Attending Physician: Calixto Beltran Admitting Physician: AdmCalixto hernandez Referring Physician: AdmtrCalixto Allergies, Adverse Reactions, Alerts No Known Allergies Immunizations Given and Recorded Vaccine Date Status Refusal Reason SARS-CoV-2 (COVID-19) mRNA BNT-162b2 vac 05/06/21 Given SARS-CoV-2 (COVID-19) mRNA BNT-162b2 vac 11/04/20 Recorded SARS-CoV-2 (COVID-19) mRNA BNT-162b2 vac 10/14/20 Recorded influenza virus vaccine, inactivated 05/06/21 Give n [...] tetanus/diphtheria/pertussis, acel(Tdap) 6 08/13/12 Given 1Result Comment: [facility] [place]# [id number] 2Result Comment: [05/25/2018] [facility] lot number [id number] 01/26/2019 [facility] [id number] 3Result Comment: [08/20/2017] [facility] [id number] 4Admin Note: VIM dated 01/29/12 GIVEN TODAY 5Result Comment: [facility]#[id number] 6Admin Note: VIM dated 08/22/11 GIVEN TODAY Medications acetaminophen 500 mg oral capsule 2 capsule = 1,000 mg, By Mouth, 2 times a day, 0 Refills, Maintenance, 07/25/21 16:23:00 EST, Partial fill upon patient request if the prescription is for a schedule II opioid drug. Start Date: 07/25/21 Status: Ordered Advair Diskus 250 mcg-50 mcg inhalation powder See Instructions, INHALE 1 DOSE BY MOUTH TWICE DAILY. RINSE MOUTH AFTER USE, # 60 each, Refills 5, Tot. Refills 5, Maintenance, 10/28/21 11:32:00 EDT, Instructions Replace Required Details, Route to Pharmacy Electronically, [id number]... Start Date: 10/28/21 Status: Ordered Aerochamber w/Mask (Medium) See Instructions, # 1 each, Maintenance, Use as directed with albuterol inhaler. Asthma ICD 10 codeJ45.909, 08/15/19 7:50:00 EST, Compound, 161, cm, 08/12/19 12:43:00 EST, Height Start Date: 08/15/19 Status: Ordered albuterol CFC free 90 mcg/inh inhalation aerosol 2, puffs, Inhalation, Every 4 hours, PRN, # 1 each, Refills 2, Tot. Refills 2, Soft Stop, 07/25/21 16:53:00 EST, Route to Pharmacy Electronically, [id number], [facility], 160.02, cm, 07/25/21 16:20:00 EST, Height, 143... Start Date: 07/25/21 Status: Ordered diclofenac 1% topical gel See Instructions, APPLY TOPICALLY 4 TIMES A DAY, # 100 Gm, 1 Refills, 09/19/21 12:51:00 EST, [facility], 25, APPLY TOPICALLY 4 TIMES A DAY, 160.02, cm, 07/25/21 16:20:00 EST, Height, 143, kg,01/04/21 10:42:00 EDT, Dry Weight Start Date: 09/19/21 Status: Ordered Flonase 50 mcg/inh nasal spray See Instructions, 2 sprays Nares twice daily x 1 week, then once daily x 1-2 weeks until symptoms improve, # 16 Gm, 0 Refills, Maintenance, 02/28/21 16:31:00 EDT, [place], [facility]/pharmacy #202, Partial fill upon patient request if the prescription is for... Start Date: 02/28/21 Status: Ordered FLUoxetine 10 mg oral capsule 10 mg, 1, capsule, By Mouth, Daily, Take with 20mg capsule for total of 30mg daily, # 90 capsule, Refills 1, Tot. Refills 1, Maintenance, 09/19/21 12:45:00 EST, Route to Pharmacy Electronically, [facility]/pharmacy #202, Partial fill upon patient request if... Start Date: 09/19/21 Status: Ordered FLUoxetine 20 mg oral capsule 20 mg, 1, capsule, By Mouth, Daily, Take with Fluoxetine 10mg for a total of 30mg, # 90 capsule, Refills 1, Tot. Refills 1, Maintenance, 05/04/21 16:44:00 EDT, Route to Pharmacy Electronically, [facility]/pharmacy #202, replacing 10mg dose, 160.02, cm, 08/0... Start Date: 05/04/21 Status: Ordered levothyroxine 0.137 mg oral tablet See Instructions, TAKE 1 TABLET BY MOUTH ON DAYS 1-6, THEN TAKE 2 TABLETS BY MOUTH ON DAY 7, # 96 tablet, 1 Refills, [facility] STORE [id number], 160.02, cm, 10/04/21 10:38:00 EST, Height, 143, kg, 01/04/21 10:42:00 EDT, Dry Weight Start Date: 11/08/21 Status: Ordered meclizine 25 mg oral tablet See Instructions, PRN Dizziness, 1 tablet By Mouth 3 times a day, # 30 tablet, 0 Refills, Maintenance, 05/11/21 13:11:00 EDT, [facility]/pharmacy #202, Partial fill upon patient request if the prescriptionis for a schedule II opioid drug., 160.02, cm, 10/0... Start Date: 05/11/21 Status: Ordered meloxicam 15 mg oral tablet 1 tablet, By Mouth, Daily, WITH FOOD., # 30 tablet, 3 Refills, 09/19/21 12:46:00 EST, [facility], 160.02, cm, 07/25/21 16:20:00 EST, Height, 143, kg, 01/04/21 10:42:00 EDT, Dry Weight Start Date: 09/19/21 Status: Ordered Splint See Instructions, # 1 each, Maintenance, left wrist short cock-up splint, 01/08/20 14:28:00 EDT, Supply Start Date: 01/08/20 Status: Ordered Symbicort 160mcg/4.5mcg Inhaler INHALE 2 PUFFS TWICE A DAY Start Date: 11/14/21 Status: Ordered traMADol 50 mg oral tablet 2 tablet = 100 mg, By Mouth, Every 12 hours, as needed for pain masspat checked, # 112 tablet, 0 Refills, Maintenance, 09/20/21 10:55:00 EST, [facility], 160.02, cm, 07/25/21 16:20:00 EST, Height, 143, kg, 01/04/21 10:42:00 EDT, Dry Weight Start Date: 09/20/21 Stop Date: 10/18/21 Status: Ordered zolpidem 10 mg oral tablet 1 tablet = 10 mg, By Mouth, Daily at bedtime, PRN for sleep, for 30 days, masspat check may fill less, # 30 tablet, 3 Refills, Acute 01/20/22 10:19:00 EDT, 09/22/21 10:19:00 EST, Tablet, [facility], 160.02, cm, 07/25/21 16:20:00 EST, Height,... Start Date: 09/22/21 Stop Date: 01/20/22 Status: Ordered Problem List Condition Effective Dates Status Health Status Inform ant Acquired hypothyroidism(Confirmed) Active Asthma(Confirmed) Active BMI 50.0-59.9, adult(Confirmed) Active Eczema(Confirmed) Active Hirsutism(Confirmed) Active Hyperkeratosis of skin(Confirmed) Active Obesity(Confirmed) Active Osteoarthritis of both knees(Confirmed) Active Mild recurrent major depression(Confirmed) Active Mild persistent asthma witho ut complication(Confirmed) Active Social History Social History Type Response Smoking Status Former smoker, quit more than 30 days ago; Other: smoked up to pack a day x 25 years; entered on: 11/14/21 Sex
--- OUTSIDE RECORDS SUMMARY | 2024-06-24 14:07 | XMS_ITS | Continuity of Care Document ---
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 Phone Patrick Mathur MD Primary Care Physician [phone] [place] [facility] [place] 08[place] [facility] [address] [place] [address]- [facility] Encounter Diagnosis Mild recurrent major depression(Discharge Diagnosis) - 08/12/19 Acquired hypothyroidism(Discharge Diagnosis) - 08/12/19 Attending Physician: Patrick Mathur MD Allergies, Adverse Reactions, Alerts Substance Reaction Severity Status NKA Active Immunizations Given and Recorded Vaccine Date Status Refusal Reason influenza virus vaccine, inactivated 1 05/27/19 Gi hali influenza virus vaccine, inactivated 2 05/25/18 Gi hali influenza virus vaccine, inactivated 3 08/20/17 Gi hali influenza virus vaccine, inactivated 05/17/16 Give n influenza virus vaccine, inactivated 08/11/15 Give n influenza virus vaccine, inactivated 4 07/31/12 Gi hali pneumococcal 23-valent vaccine 5 04/07/19 Given tetanus/diphtheria/pertussis, acel(Tdap) 6 08/13/12 Given 1Result Comment: [facility] [place]# [id number] 2Result Comment: [05/25/2018] [facility] lot number [id number] exp 01/26/2019 [facility] [place] [id number] 3Result Comment: [08/20/2017] [facility] [place] [id number] 4Admin Note: VIM dated 01/29/12 GIVEN TODAY 5Result Comment: [facility]#[id number] 6Admin Note: VIM dated 08/22/11 GIVEN TODAY [...] PUFFS EVERY 6 HOURS NEEDED FOR WHEEZE, [facility]/pharmacy #2024 Start Date: 05/27/19 Status: Ordered benzonatate 200 mg oral capsule 1 capsule = 200 mg, By Mouth, 3 times a day, PRN as needed for cough, for 10 days, # 30 capsule, 0 Refills, Acute 08/22/19 13:50:00 EST, 08/12/19 13:50:00 EST, Capsule, [facility]/pharmacy #2024, 161, cm, 08/12/19 12:43:00 EST, Height Start Date: 08/12/19 Stop Date: 08/22/19 Status: Ordered diclofenac 1% topical gel 1 application, Topically, 4 times a day, # 100 Gm, 0 Refills, Maintenance, 08/01/18 17:08:02 EST, Gel Start Date: 08/01/18 Status: Ordered FLUoxetine 20 mg oral capsule 20 mg, 1, capsule, By Mouth, Daily, # 30 capsule, Refills 5, Tot. Refills 5, Maintenance, 07/10/19 14:06:00 EST, Route to Pharmacy Electronically, [id number], [facility]/pharmacy #2024, replacing 10mg dose, 161, cm, 06/25/19 11:16:1... Start Date: 07/10/19 Status: Ordered levothyroxine 125 mcg (0.125 mg) oral tablet 1 tablet = 125 mcg, By Mouth, Daily, # 30 tablet, 5 Refills, Maintenance, 06/07/19 10:35:59 EST, Tablet Start Date: 06/07/19 Status: Ordered meloxicam 15 mg oral tablet 1 tablet = 15 mg, By Mouth, Daily, Take w food., # 30 tablet, 0 Refills, Maintenance, 08/03/19 11:35:00 EST, Tablet, [facility]/pharmacy #2024, Labs needed for further refills, 161, cm, 06/25/19 11:16:00 EST, Height Start Date: 08/03/19 Status: Ordered tiZANidine 2 mg oral tablet 2 mg, 1, tablet, By Mouth, Daily at bedtime, PRN, # 14 tablet, Refills 0, Tot. Refills 0, Maintenance, as needed for muscle spasm, 08/04/19 17:54:00 EST, Route to Pharmacy Electronically, [facility]/pharmacy #2024, 161, cm, 08/04/19 14:44:00 EST, Height Start Date: 08/04/19 Stop Date: 08/18/19 Status: Ordered traMADol 50 mg oral tablet 2 tablet = 100 mg, By Mouth, Every 12 hours, as needed for pain masspat checked, # 120 tablet, 0 Refills, Maintenance, 08/19/19 12:27:00 EST, [facility]/pharmacy #2024, 161, cm, 08/12/19 12:43:00 EST, Height Start Date: 08/19/19 Stop Date: 09/18/19 Status: Ordered zolpidem 10 mg oral tablet 1 tablet = 10 mg, By Mouth, Daily at bedtime, PRN for sleep, for 30 days, masspat check may fill less, # 30 tablet, 5 Refills, Acute 12/16/19 4:45:13 EDT, 06/19/19 4:45:13 EST, Tablet Start Date: 06/19/19 Stop Date: 12/16/19 Status: Ordered Problem List Condition Effective Dates Status Health Status Inform ant Acquired hypothyroidism(Confirmed) Active Asthma(Confirmed) Active BMI 50.0-59.9, adult(Confirmed) Active Eczema(Confirmed) Active Hirsutism(Confirmed) Active Obesity(Confirmed) Active Osteoarthritis of both knees(Confirmed) Active Mild recurrent major depression(Confirmed) Active Diagnosis Diagnosis Type Effective Dates Health Status Clinical Service Informant Mild recurrent major depression Discharge Diagnosis 08/12/19 Acquired hypothyroidism Discharge Diagnosis 08/12/19 Procedures Procedure Date Related Diagnosis Body Site Status Arthroscopically aided treat ment of intercondylar spine(s) and/or tuberosity fracture(s) of the knee, with or without manipulation; without internal or external fixation (includes arthroscopy) Completed Arthroscopy, elbow, diagnost ic, with or without synovial biopsy (separate procedure) Completed Arthrotomy, acromioclavicula r joint or sternoclavicular joint, including biopsy and/or excision of torn cartilage Completed Vital Signs Most recent to oldest [Reference Range]: 1 Height 161 cm (08/12/19 12:43 PM) Pulse Rate [55-90 bpm] 62 bpm (08/12/19 12:43 PM) Blood Pressure [90-138/55-84 mm Hg] 140/ 90mm Hg *H* (08/12/19 12:43 PM) Temperature [96.8-100.4 DegF] 97.9 DegF (08/12/19 12:43 PM) Blood pressure sites Arm, left (08/12/19 12:43 PM) Temperature Route Oral (08/12/19 12:43 PM) Social History Social History Type Response Smoking Status Current every day sm sultana; Tobacco user in household: No; Type: Cigarettes; Tobacco use times per day: 1/2 ppd; entered on: 07/08/15 Sex
--- OUTSIDE RECORDS SUMMARY | 2024-06-24 14:07 | XMS_ITS | Continuity of Care Document ---
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 Name Role Phone Celestina Trinidad MD Primary Care Physician [place] [facility] [place] [facility] [address] [address]- Attending Physician: Celestina Trinidad MD Admitting Physician: Celestina Trinidad MD Referring Physician: Celestina Trinidad MD Allergies, Adverse Reactions, Alerts No Known Allergies Immunizations Given and Recorded Vaccine Date Status Refusal Reason [id number] 12y+ bivalent booster vax 06/14/22 Recorded influenza virus vaccine, inactivated 06/08/22 Give n influenza virus vaccine, inactivated 05/06/21 Give n influenza virus vaccine, inactivated 06/08/20 Give n influenza virus vaccine, inactivated 1 05/27/19 Gi hali influenza virus vaccine, inactivated 2 05/25/18 Gi hali influenza virus vaccine, inactivated 3 08/20/17 Gi hali influenza virus vaccine, inactivated 05/17/16 Give n influenza virus vaccine, inactivated 08/11/15 Give n influenza virus vaccine, inactivated 07/31/12 Gi hali SARS-CoV-2 mRNA ([id number]) vax 02/14/22 Recorded SARS-CoV-2 (COVID-19) mRNA BNT-162b2 vac 05/06/21 Given SARS-CoV-2 (COVID-19) mRNA BNT-162b2 vac 11/04/20 Recorded SARS-CoV-2 (COVID-19) mRNA BNT-162b2 vac 10/14/20 Recorded pneumococcal 23-valent vaccine 5 04/07/19 Given tetanus/diphtheria/pertussis, acel(Tdap) 6 08/13/12 Given 1Result Comment: [facility]# [id number] 2Result Comment: [05/25/2018] [facility] lot number [id number] exp 01/26/2019 [facility] [id number] 3Result Comment: [08/20/2017] [facility] [id number] 4Admin Note: VIM dated 01/29/12 GIVEN TODAY 5Result Comment: [facility]#[id number] 6Admin Note: VIM dated 08/22/11 GIVEN TODAY [...] puffs, Inhalation, Every 4 hours, PRN, # 18 Gm, Refills 11, Tot. Refills 11, Soft Stop, 04/10/2215:14:00 EDT, Route to Pharmacy Electronically, [id number], [facility]/pharmacy #2025, 158, cm, 04/10/22 14:56:00 EDT, Height, 143,... Start Date: 04/10/22 Status: Ordered amLODIPine 10 mg oral tablet 1 tablet, By Mouth, Daily, # 90 tablet, 0 Refills, Maintenance, 07/21/22 17:34:00 EST, [facility], 158, cm, 07/21/22 15:09:00 EST, Height, 143, kg, 01/04/21 10:42:00 EDT, Dry Weight Start Date: 07/21/22 Status: Ordered Anoro Ellipta 62.5 mcg-25 mcg/inh inhalation powder 1 puffs, By Mouth, Daily, # 1 each, 6 Refills, Maintenance, 05/11/22 13:00:00 EDT, Powder, [facility], Partial fill upon patient request if the prescription is for a schedule II opioid drug., 1puffs By Mouth Daily,x30 days, 158, cm, 05/08/22 11... Start Date: 05/11/22 Stop Date: 12/07/22 Status: Ordered cilostazol 100 mg oral tablet 1 tablet = 100 mg, By Mouth, 2 times a day, 0 Refills, Maintenance, 07/03/22 13:46:00 EST, Partial fill upon patient request if the prescription is for a schedule II opioid drug. Start Date: 07/03/22 Status: Ordered cilostazol 100 mg oral tablet 1 tablet = 100 mg, By Mouth, 2 times a day, # 60 tablet, 0 Refills, Maintenance, 08/01/22 16:58:00 EST, Tablet, [facility]/pharmacy #2024, Partial fill upon patient request if the prescription is for a schedule II opioid drug., 159, cm, 08/01/22 14:14:00 EST... Start Date: 08/01/22 Status: Ordered Compression Stockings See Instructions, # 2 each, Refills 2, Tot. Refills 2, Maintenance, surgical, calf length 20-30 mm Hg Dx: venous insufficiency, 07/01/22 6:53:00 EST, Compound, 158, cm, 06/09/22 11:21:00 EST, Height,143, kg, 01/04/21 10:42:00 EDT, Dry Weight Start Date: 07/01/22 Status: Ordered diclofenac 1% topical gel See Instructions, APPLY TOPICALLY 4 TIMES A DAY, # 100 Gm, 1 Refills, 09/19/21 12:51:00 EST, [facility]/pharmacy #2024, 25, APPLY TOPICALLY 4 TIMES A DAY, 160.02, cm, 07/25/21 16:20:00 EST, Height, 143, kg,01/04/21 10:42:00 EDT, Dry Weight Start Date: 09/19/21 Status: Ordered doxycycline hyclate 100 mg oral tablet 1 tablet, By Mouth, 2 times a day, # 20 tablet, 0 Refills, Maintenance, 07/21/22 17:34:00 EST, [facility], 158, cm, 07/21/22 15:09:00 EST, Height, 143, kg, 01/04/21 10:42:00 EDT, Dry Weight Start Date: 07/21/22 Stop Date: 07/31/22 Status: Ordered Flonase 50 mcg/inh nasal spray See Instructions, 2 sprays Nares twice daily x 1 week, then once daily x 1-2 weeks until symptoms improve, # 16 Gm, 0 Refills, Maintenance, 02/28/21 16:31:00 EDT, [place], [facility]/pharmacy #2025, Partial fill upon patient request if the prescription is for... Start Date: 02/28/21 Status: Ordered FLUoxetine 20 mg oral capsule See Instructions, TAKE 1 CAPSULE BY MOUTH EVERY DAY, # 90 capsule, Refills 1, Maintenance, 06/13/2215:26:00 EST, Instructions Replace Required Details, Route to Pharmacy Electronically, [facility], 158, cm, 06/09/22 11:21:00 EST, Height, 143, kg... Start Date: 06/13/22 Status: Ordered gabapentin 300 mg oral capsule 600 mg, 2, capsule, By Mouth, 2 times a day, # 120 capsule, Refills 1, Tot. Refills 1, Maintenance,07/22/22 8:06:00 EST, Route to Pharmacy Electronically, [facility]/pharmacy #2025, Partial fill upon patient request if the prescription is for a schedule II... Start Date: 07/22/22 Status: Ordered levothyroxine 0.137 mg oral tablet 1 tablet = 137 mcg, By Mouth, Daily, 1 tab on days 1-6, take 2 tabs on day 7, # 102 tablet, 1 Refills, Maintenance, 07/03/22 14:41:00 EST, Tablet, [facility], Partial fill upon patient request if the prescription is for a schedule II opioid drMelonie.. Start Date: 07/03/22 Status: Ordered levothyroxine 0.137 mg oral tablet See Instructions, TAKE 1 TABLET BY MOUTH ON DAYS 1-6, THEN TAKE 2 TABLETS BY MOUTH ON DAY 7 Needs TSH lab work for refills, # 96 tablet, 0 Refills, 06/29/22 15:47:00 EST, [facility]/pharmacy #2024, 158, cm,06/09/22 11:21:00 EST, Height, 143, kg, 01/04/21 1... Start Date: 06/29/22 Status: Ordered meclizine 25 mg oral tablet See Instructions, PRN Dizziness, 1 tablet By Mouth 3 times a day, # 30 tablet, 0 Refills, Maintenance, 05/11/21 13:11:00 EDT, [facility]/pharmacy #2024, Partial fill upon patient request if the prescriptionis for a schedule II opioid drug., 160.02, cm, 10/0... Start Date: 05/11/21 Status: Ordered meloxicam 15 mg oral tablet See Instructions, TAKE 1 TABLET BY MOUTH DAILY WITH FOOD. LABS NEEDED FOR FURTHER REFILLS, # 30 tablet, 3 Refills, Maintenance, 07/17/22 19:56:00 EST, [facility]/pharmacy #2024, 158, cm, 07/13/22 13:46:00 EST, Height, 143, kg, 01/04/21 10:42:00 EDT, Dry Weight Start Date: 07/17/22 Status: Ordered oxyCODONE 10 mg oral tablet 1 tablet = 10 mg, By Mouth, Every 6 hours, PRN as needed for pain, # 20 tablet, 0 Refills, Maintenance, 08/01/22 16:58:00 EST, Tablet, [facility]/pharmacy #2024, Partial fill upon patient request if the prescription is for a schedule II opioid drug., 159, cm... Start Date: 08/01/22 Status: Ordered oxyCODONE 5 mg oral tablet 5 mg, 1, tablet, By Mouth, Every 6 hours, Refills 0, Tot. Refills 0, Maintenance, 07/03/22 13:46:00EST, Partial fill upon patient request if the prescription is for a schedule II opioid drug. Start Date: 07/03/22 Status: Ordered Santyl 250 u/gm ointment 1 application, Topically, Daily, # 15 Gm, 2 Refills, Acute 09/27/22 16:00:00 EST, 08/01/22 21:26:00EST, Ointment, [facility]/pharmacy #2024, Partial fill upon patient request if the prescription is for a schedule II opioid drug., 1 application Topically Loreto... Start Date: 08/01/22 Stop Date: 09/27/22 Status: Ordered Splint See Instructions, # 1 each, Maintenance, left wrist short cock-up splint, 01/08/20 14:28:00 EDT, Supply Start Date: 01/08/20 Status: Ordered traMADol 50 mg oral tablet See Instructions, 2 tab po qam and one tab po q pm prn moderate to severe pain, # 81 tablet, 0 Refills, Maintenance, 07/11/22 17:21:00 EST, [facility], 158, cm, 07/07/22 11:19:00 EST, Height,143, kg, 01/04/21 10:42:00 EDT, Dry Weight Start Date: 07/11/22 Status: Ordered Problem List Condition Confirmation Course Effective Dates Status H ealth Status Informant Acquired hypothyroidism Confirmed Active Asthma Confirmed Active BMI 50.0-59.9, adult Confirmed Active Eczema Confirmed Active Hirsutism Confirmed Active 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/22 Active Hyperkeratosis of skin Confirmed Active Obesity Confirmed Active Osteoarthritis of both knees Confirmed Active Mild recurrent major depression Confirmed Active Severe obesity Confirmed Active Thromboangiitis obliterans Confirmed Active Mild persistent asthma without complication Confirmed Active Vital Signs Most recent to oldest [Reference Range]: 1 Height 159 cm (07/28/22 3:07 PM) Oxygen Saturation [94-100 %] 100 % (07/28/22 3:07 PM) Pulse Rate [55-90 bpm] 81 bpm (07/28/22 3:07 PM) Blood Pressure [90-138/55-84 mm Hg] 120/ 67mm Hg (07/28/22 3:07 PM) Blood pressure sites Arm, left (07/28/22 3:07 PM) Social History Social History Type Response Smoking Status Former smoker, quit more than 30 days ago; Other: smoked up to pack a day x 25 years; entered on: 11/14/21 Sex Patient Care team information Care Team Personnel Name: Celestina Trinidad MD Position: [facility] Primary Care Physician Member Role: PCP Address: Address: [address] [place] [id number] Name: Lauren Mack RN Position: [facility] AMB Nurse Member Role: Primary Care Nurse Name: Lora Santiago RN Position: [facility] SN RN Member Role: Primary Care Nurse Name: Mayco Ro RN Position: [facility] RN Member Role: Primary Care Nurse Name: Heydi Potts RN Position: [facility] RN Member Role: Primary Care Nurse Name: Nadya Low RN Position: [facility] RN Member Role: Primary Care Nurse Name: Mirna Greenfield RN Position: [facility] RN Member Role: Primary Care Nurse Name: Nessa Bonilla RN Position: [facility] Hospital Pet Ambassador Member Role: Primary Care Nurse Care Team Related Persons Name: DINESH SARGENT Address: home [address] [place] [address] Name: BON DE Address: home [address] [address]
--- OUTSIDE RECORDS SUMMARY | 2024-06-24 14:07 | XMS_ITS | Continuity of Care Document ---
Author Organization [facility] Address [address] [place] [address]- Care Team Providers Care Site Supervising Technical Operator Name Role Phone Vivi HENNING, Celestina Givens Primary Care Physician [facility] - 01/07/23 [facility] [address] [place] [address]- Allergies, Adverse Reactions, Alerts No Known Allergies Immunizations Given and Recorded Vaccine Date Status Refusal Reason tetanus/diphtheria/pertussis, acel(Tdap) 1 08/21/22 Given tetanus/diphtheria/pertussis, acel(Tdap) 2 08/13/12 Given [id number] 12y+ bivalent booster vax 06/14/22 Recorded influenza virus vaccine, inactivated 06/08/22 Give n influenza virus vaccine, inactivated 05/06/21 Give n influenza virus vaccine, inactivated 06/08/20 Give n influenza virus vaccine, inactivated 3 05/27/19 Gi hali influenza virus vaccine, inactivated 4 05/25/18 Gi hali influenza virus vaccine, inactivated 5 08/20/17 Gi hali influenza virus vaccine, inactivated 05/17/16 Give n influenza virus vaccine, inactivated 08/11/15 Give n influenza virus vaccine, inactivated 6 07/31/12 Gi hali SARS-CoV-2 mRNA ([id number]) vax 02/14/22 Recorded SARS-CoV-2 (COVID-19) mRNA BNT-162b2 vac 05/06/21 Given SARS-CoV-2 (COVID-19) mRNA BNT-162b2 vac 11/04/20 Recorded SARS-CoV-2 (COVID-19) mRNA BNT-162b2 vac 10/14/20 Recorded pneumococcal 23-valent vaccine 7 04/07/19 Given 1Result Comment: [facility]# 74506-852-81 2Admin Note: VIM dated 08/22/11 GIVEN TODAY 3Result Comment: [facility]# [id number] 4Result Comment: [05/25/2018] [facility] lot number [id number] exp 01/26/2019 [facility] [id number] 5Result Comment: [08/20/2017] [facility] [id number] 6Admin Note: VIM dated 01/29/12 GIVEN TODAY 7Result Comment: [facility]#[id number] Medications acetaminophen 500 mg oral capsule 2 [...] Stop, 04/10/2215:14:00 EDT, Route to Pharmacy Electronically, [id number], [facility]/pharmacy #2025, 158, cm, 04/10/22 14:56:00 EDT, Height, 143,... Start Date: 04/10/22 Status: Ordered amLODIPine 10 mg oral tablet 1 tablet, By Mouth, Daily, # 90 tablet, 0 Refills, Maintenance, 10/23/22 12:47:00 EDT, [facility] STORE [facility], 157, cm, 09/13/22 15:58:00 EST, Height, 145, kg, 08/29/22 20:13:00 EST, Dry Weight Start Date: 10/23/22 Status: Ordered budesonide-formoterol 80 mcg-4.5 mcg/inh inhalation aerosol with adapter 2, puffs, Inhalation, 2 times a day, PRN, use with spacer chamber, rinse mouth and throat after use, j44.9, # 1 each, Refills 6, Tot. Refills 6, Maintenance, 12/08/22 12:55:00 EDT, Aerosol, Route to Pharmacy Electronically, [id number]... Start Date: 12/08/22 Status: Ordered Compression Stockings See Instructions, # [...] (187.2), Supply Start Date: 10/30/22 Status: Ordered diclofenac 1% topical gel See Instructions, APPLY TOPICALLY 4 TIMES A DAY, # 100 Gm, 1 Refills, 09/22/22 7:28:00 EST, [facility]/pharmacy #2024, 25, APPLY TOPICALLY 4 TIMES A DAY, 157, cm, 09/13/22 15:58:00 EST, Height, 145, kg, 08/29/22 20:13:00 EST, Dry Weight Start Date: 09/22/22 Status: Ordered docusate sodium 100 mg oral capsule 100 mg, 1, capsule, By Mouth, 2 times a day, PRN, # 20 capsule, Refills 0, Tot. Refills 0, Maintenance, as needed for constipation, 08/31/22 13:30:00 EST, Route to Pharmacy Electronically, [facility]/pharmacy #2024, Partial fill upon patient request if the p... Start Date: 08/31/22 Status: Ordered Flonase 50 mcg/inh nasal spray See Instructions, 2 sprays Nares twice daily x 1 week, then once daily x 1-2 weeks until symptoms improve, # 16 Gm, 0 Refills, Maintenance, 02/28/21 16:31:00 EDT, [place], [facility]/pharmacy #2024, Partial fill upon patient request if the prescription is for... Start Date: 02/28/21 Status: Ordered FLUoxetine 20 mg oral capsule 1, capsule, By Mouth, Daily, # 30 capsule, Refills 0, Tot. Refills 0, Maintenance, 12/29/22 15:11:00 EDT, Print Requisition Start Date: 12/29/22 Status: Ordered furosemide 20 mg oral tablet 1, tablet, By Mouth, Daily, MAY REPEAT IF NEEDED IN 2 HOURS, # 30 tablet, Refills 0, Maintenance, 11/29/22 22:18:00 EDT, Route to Pharmacy Electronically, [facility], 157, cm, 10/30/22 13:53:00 EDT, Height, 145, kg, 08/29/22 20:13:00 EST, Dry Weight Start Date: 11/29/22 Status: Ordered gabapentin 300 mg oral capsule 600 mg, 2, capsule, By Mouth, 3 times a day, # 180 capsule, Refills 3, Tot. Refills 3, Maintenance,08/25/22 22:35:00 EST, Route to Pharmacy Electronically, [facility]/pharmacy #2024, Partial fill upon patient request if the prescription is for a schedule II... Start Date: 08/25/22 Status: Ordered Home Blood Pressure Monitor See Instructions, # 1 each, Maintenance, use to check pressure daily, 10/24/22 11:58:00 EDT, Pleaseensure available cuff will fit pt's arm or wrist, Supply Start Date: 10/24/22 Status: Ordered levothyroxine 0.137 mg oral tablet 1 tablet = 137 mcg, By Mouth, Daily, 1 tab on days 1-6, take 2 tabs on day 7, # 102 tablet, 1 Refills, Maintenance, 07/03/22 14:41:00 EST, Tablet, [facility]/pharmacy #2024, Partial fill upon patient request if the prescription is for a schedule II opioid drMelonie.. Start Date: 07/03/22 Status: Ordered meclizine 25 mg oral tablet See Instructions, PRN Dizziness, 1 tablet By Mouth 3 times a day, # 30 tablet, 0 Refills, Maintenance, 10/13/21 13:11:00 EDT, [facility]/pharmacy #2025, Partial fill upon patient request if the prescriptionis for a schedule II opioid drug., 160.02, cm, 10/0... Start Date: 05/11/21 Status: Ordered meloxicam 15 mg oral tablet See Instructions, TAKE 1 TABLET BY MOUTH DAILY WITH FOOD. LABS NEEDED FOR FURTHER REFILLS, # 30 tablet, 3 Refills, Maintenance, 10/18/22 21:31:00 EDT, [facility], 157, cm, 09/13/22 15:58:00 EST,Height, 145, kg, 08/29/22 20:13:00 EST, Dry Weight Start Date: 10/18/22 Status: Ordered Splint See Instructions, # 1 each, Maintenance, left wrist short cock-up splint, 01/08/20 14:28:00 EDT, Supply Start Date: 01/08/20 Status: Ordered tiZANidine 2 mg oral tablet 2 mg, 1, tablet, By Mouth, 3 times a day, may use 1 tab or 2, # 21 tablet, Refills 0, Tot. Refills 0, Maintenance, 09/05/22 16:29:00 EST, Route to Pharmacy Electronically, [facility]/pharmacy #2025, Partialfill upon patient request if the prescription is fo... Start Date: 09/05/22 Stop Date: 09/12/22 Status: Ordered traMADol 50 mg oral tablet See Instructions, 2 tab po qam and one tab po q pm prn moderate to severe pain. 28 days. mass pat ok, # 81 tablet, 0 Refills, Maintenance, 12/29/22 15:11:00 EDT Start Date: 12/29/22 Status: Ordered zolpidem 10 mg oral tablet 1 tablet = 10 mg, By Mouth, Daily at bedtime, PRN for sleep, for 30 days, # 30 tablet, 0 Refills, Acute 02/03/23 16:33:00 EDT, 01/04/23 16:33:00 EDT, Tablet, early refill for travel. Thanks. Start Date: 01/04/23 Stop Date: 02/03/23 Status: Ordered zolpidem 5 mg oral tablet 2 tablet = 10 mg, By Mouth, Daily at bedtime, PRN as needed for insomnia, # 50 tablet, 0 Refills, Acute 02/03/23 16:53:00 EDT, 12/04/22 16:52:00 EDT, Tablet, [facility], Partial fill upon patient request if the prescription is for a schedule I... Start Date: 12/04/22 Stop Date: 02/03/23 Status: Ordered Problem List Condition Confirmation Course Effective Dates Status H ealth Status Informant Acquired hypothyroidism Confirmed Active Asthma Confirmed Active BMI 50.0-59.9, adult Confirmed Active Drug-drug interaction Confirmed Active Eczema Confirmed Active Hirsutism Confirmed Active 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/22 Active Ischemic finger ulcer Confirmed Active Hyperkeratosis of skin Confirmed Active Obesity Confirmed Active Osteoarthritis of both knees Confirmed Active Osteomyelitis Confirmed Active Mild recurrent major depression Confirmed Active Severe obesity Confirmed Active Thromboangiitis obliterans Confirmed Active Mild persistent asthma without complication Confirmed Active Social History Social History Type Response Smoking Status Former smoker, quit more than 30 days ago; Other: smoked up to pack a day x 25 years; entered on: 11/14/21 Sex Patient Care team information Care Team Personnel Name: Celestina Trinidad MD Position: [facility] Physician - Primary Care Member Role: PCP Address: Address: [address] [place] [address] Name: Hemalatha Lucas RN Position: [facility] RN Member Role: Primary Care Nurse Name: Lauren Mack RN Position: [facility] AMB Nurse Member Role: Primary Care Nurse Name: Madelaine Ruiz RN Position: [facility] RN Member Role: Primary Care Nurse Name: Lora Santiago RN Position: [facility] SN RN Member Role: Primary Care Nurse Name: Mayco Ro RN Position: [facility] RN Member Role: Primary Care Nurse Name: Heydi Potts RN Position: [facility] RN Member Role: Primary Care Nurse Name: Janice Romano LPN Position: [facility] RN Member Role: Primary Care Nurse Name: Nadya Low RN Position: [facility] RN Member Role: Primary Care Nurse Name: Mirna Greenfield RN Position: [facility] RN Member Role: Primary Care Nurse Name: Nessa Bonilla RN Position: [facility] [employer] Member Role: Primary Care Nurse Care Team Related Persons Name: ROSETTADINESH AVILA Address: [address] [place] [address] Name: BON DE Address: home [address] [place] [id number]
--- OUTSIDE RECORDS SUMMARY | 2024-06-24 14:08 | XMS_ITS | Continuity of Care Document ---
Author Organization [facility] Address [address] [place] [address]- Care Team Providers Care Junior Sales Assistant Name Role Phone Florentino AHN, Elder Hannah Primary Care Physician [facility] - [facility]04[facility]20 [facility] [address] [place] [address]- Allergies, Adverse Reactions, Alerts Substance Reaction Severity [...] tetanus/diphtheria/pertussis, acel(Tdap) 6 08/13/12 Given 1Result Comment: [facility]# 12412-062-17 2Result Comment: [05/25/2018] [facility] lot number [id number] exp 01/26/2019 [facility] 56813-547-96 3Result Comment: [08/20/2017] [facility] [id number] 4Admin Note: VIM dated 01/29/12 GIVEN TODAY 5Result Comment: [facility]#[id number] 6Admin Note: VIM dated 08/22/11 GIVEN TODAY [...] PUFFS EVERY 6 HOURS NEEDED FOR WHEEZE, [facility]/pharmacy #2024 Start Date: 05/27/19 Status: Ordered diclofenac 1% topical gel 1 applicator, Topically, 4 times a day, # 100 Gm, 0 Refills, Maintenance, 02/18/20 11:51:00 EDT, Gel, [facility]/pharmacy #2024, 161, cm, 01/08/20 13:51:00 EDT, Height Start Date: 02/18/20 Status: Ordered FLUoxetine 20 mg oral capsule 20 mg, 1, capsule, By Mouth, Daily, # 30 capsule, Refills 5, Tot. Refills 5, Maintenance, 05/13/20 9:34:00 EDT, Route to Pharmacy Electronically, [facility]/pharmacy #2024, replacing 10mg dose, 161, cm, 05/13/20 8:28:00 EDT, Height Start Date: 05/13/20 Status: Ordered levothyroxine 125 mcg (0.125 mg) oral tablet 1 tablet = 125 mcg, By Mouth, Daily, # 30 tablet, 5 Refills, Maintenance, 05/13/20 9:34:00 EDT, Tablet, [facility]/pharmacy #2024, 161, cm, 05/13/20 8:28:00 EDT, Height Start Date: 05/13/20 Status: Ordered meloxicam 15 mg oral tablet 1 tablet = 15 mg, By Mouth, Daily, Take w food., # 30 tablet, 1 Refills, Maintenance, 05/10/20 12:59:00 EDT, Tablet, [facility]/pharmacy #2024, Labs needed for further refills, 161, cm, 02/24/20 10:51:00 EDT, Height Start Date: 05/10/20 Status: Ordered Splint See Instructions, # 1 each, Maintenance, left wrist short cock-up splint, 01/08/20 14:28:00 EDT, Supply Start Date: 01/08/20 Status: Ordered tiZANidine 2 mg oral tablet 2 mg, 1, tablet, By Mouth, Daily at bedtime, PRN, # 14 tablet, Refills 0, Tot. Refills 0, Maintenance, as needed for muscle spasm, 08/04/19 17:54:00 EST, Route to Pharmacy Electronically, [facility]/pharmacy #5, 161, cm, 08/04/19 14:44:00 EST, Height Start Date: 08/04/19 Stop Date: 08/18/19 Status: Ordered traMADol 50 mg oral tablet 2 tablet = 100 mg, By Mouth, Every 12 hours, as needed for pain masspat checked, # 120 tablet, 2 Refills, Maintenance, 05/13/20 9:34:00 EDT, [facility], 161, cm, 05/13/20 8:28:00 EDT, Height Start Date: 05/13/20 Stop Date: 08/11/20 Status: Ordered zolpidem 10 mg oral tablet 1 tablet = 10 mg, By Mouth, Daily at bedtime, PRN for sleep, for 30 days, masspat check may fill less, # 30 tablet, 3 Refills, Acute 09/10/20 9:34:00 EST, 05/13/20 9:34:00 EDT, Tablet, [facility]/pharmacy #5, 161, cm, 05/13/20 8:28:00 EDT, Height Start Date: 05/13/20 Stop Date: 09/10/20 Status: Ordered Problem List Condition Effective Dates Status Health Status Inform ant Acquired hypothyroidism(Confirmed) Active Asthma(Confirmed) Active BMI 50.0-59.9, adult(Confirmed) Active Eczema(Confirmed) Active Hirsutism(Confirmed) Active Obesity(Confirmed) Active Osteoarthritis of both knees(Confirmed) Active Mild recurrent major depression(Confirmed) Active Social History Social History Type Response Smoking Status Current every day sm oker; Tobacco user in household: No; Type: Cigarettes; Tobacco use times per day: 1/2 ppd; entered on: 07/08/15 Sex
--- OUTSIDE RECORDS SUMMARY | 2024-06-24 14:08 | XMS_ITS | Continuity of Care Document ---
Author Organization [facility] Address [address] [place] [address]- Care Team Providers Care Flying Shear Operator Name Role Phone Vivi HENNING, Celestina Givens Primary Care Physician [facility] - 11/01/22 [facility] [address] [place] [address]- Allergies, Adverse Reactions, Alerts No Known Allergies Immunizations Given and Recorded Vaccine Date Status Refusal Reason tetanus/diphtheria/pertussis, acel(Tdap) 1 08/21/22 Given tetanus/diphtheria/pertussis, acel(Tdap) 2 08/13/12 Given [id number] 12y+ bivalent booster vax 06/14/22 Recorded influenza [...] inactivated 6 07/31/12 Gi hali SARS-CoV-2 mRNA ([id number]-[id number]-hsmxm) vax 02/14/22 Recorded SARS-CoV-2 (COVID-19) mRNA BNT-162b2 vac 05/06/21 Given SARS-CoV-2 (COVID-19) mRNA BNT-162b2 vac 11/04/20 Recorded SARS-CoV-2 (COVID-19) mRNA BNT-162b2 vac 10/14/20 Recorded pneumococcal 23-valent vaccine 7 04/07/19 Given 1Result Comment: [facility]# [id number] 2Admin Note: VIM dated 08/22/11 GIVEN TODAY 3Result Comment: [facility]# [id number] 4Result Comment: [05/25/2018] [facility] lot number [id number] exp 01/26/2019 [facility] [id number] 5Result Comment: [08/20/2017] [facility] [id number] 6Admin Note: VIM dated 01/29/12 GIVEN TODAY 7Result Comment: [facility]#[id number] Medications acetaminophen 500 mg oral capsule 2 [...] Stop, 04/10/2215:14:00 EDT, Route to Pharmacy Electronically, [id number], [facility]/pharmacy #2025, 158, cm, 04/10/22 14:56:00 EDT, Height, 143,... Start Date: 04/10/22 Status: Ordered amLODIPine 10 mg oral tablet 1 tablet, By Mouth, Daily, # 90 tablet, 0 Refills, Maintenance, 10/23/22 12:47:00 EDT, [facility] STORE 16[facility], 157, cm, 09/13/22 15:58:00 EST, Height, 145, kg, 08/29/22 20:13:00 EST, Dry Weight Start Date: 10/23/22 Status: Ordered budesonide-formoterol 80 mcg-4.5 mcg/inh inhalation aerosol with adapter 2, puffs, Inhalation, 2 times a day, PRN, use with spacer chamber, rinse mouth and throat after use, # 10.2 Gm, Refills 5, Tot. Refills 5, Maintenance, 09/12/22 11:06:00 EST, Aerosol, Route to Pharmacy Electronically, [id number]... Start Date: 09/12/22 Status: Ordered cilostazol 100 mg oral tablet 1 tablet, By Mouth, 2 times a day, # 60 tablet, 0 Refills, Maintenance, 10/23/22 12:47:00 EDT, [facility], 157, cm, 09/13/22 15:58:00 EST, Height, 145, kg, 08/29/22 20:13:00 EST, Dry Weight Start Date: 10/23/22 Status: Ordered Compression Stockings See Instructions, # [...] 100 Gm, 1 Refills, 09/22/22 7:28:00 EST, [facility], 25, APPLY TOPICALLY 4 TIMES A DAY, 157, cm, 09/13/22 15:58:00 EST, Height, 145, kg, 08/29/22 20:13:00 EST, Dry Weight Start Date: 09/22/22 Status: Ordered docusate sodium 100 mg oral capsule 100 mg, 1, capsule, By Mouth, 2 times a day, PRN, # 20 capsule, Refills 0, Tot. Refills 0, Maintenance, as needed for constipation, 08/31/22 13:30:00 EST, Route to Pharmacy Electronically, [facility]/pharmacy #2025, Partial fill upon patient request if the p... Start Date: 08/31/22 Status: Ordered Flonase 50 mcg/inh nasal spray See Instructions, 2 sprays Nares twice daily x 1 week, then once daily x 1-2 weeks until symptoms improve, # 16 Gm, 0 Refills, Maintenance, 02/28/21 16:31:00 EDT, [place], [facility]/pharmacy #2025, Partial fill upon patient request if the prescription is for... Start Date: 02/28/21 Status: Ordered FLUoxetine 20 mg oral capsule 1, capsule, By Mouth, Daily, # 90 capsule, Refills 1, Maintenance, 10/23/22 12:47:00 EDT, Route to Pharmacy Electronically, [facility], 157, cm, 09/13/22 15:58:00 EST, Height, 145, kg, 08/29/22 20:13:00 EST, Dry Weight Start Date: 10/23/22 Status: Ordered furosemide 20 mg oral tablet 1, tablet, By Mouth, Daily, MAY REPEAT IF NEEDED IN 2 HOURS, # 30 tablet, Refills 0, Maintenance, 10/29/22 21:42:00 EDT, Route to Pharmacy Electronically, [facility], 157, cm, 09/13/22 15:58:00 EST, Height, 145, kg, 08/29/22 20:13:00 EST, Dry Weight Start Date: 10/29/22 Status: Ordered gabapentin 300 mg oral capsule 600 mg, 2, capsule, By Mouth, 3 times a day, # 180 capsule, Refills 3, Tot. Refills 3, Maintenance,08/25/22 22:35:00 EST, Route to Pharmacy Electronically, [facility]/pharmacy #2025, Partial fill upon patient request if [...] 1 Refills, Maintenance, 07/03/22 14:41:00 EST, Tablet, [facility]/pharmacy #202, Partial fill upon patient request if the prescription is for a schedule II opioid dr... Start Date: 07/03/22 Status: Ordered meclizine 25 mg oral tablet See Instructions, PRN Dizziness, 1 tablet By Mouth 3 times a day, # 30 tablet, 0 Refills, Maintenance, 05/11/21 13:11:00 EDT, [facility]/pharmacy #202, Partial fill upon patient request if the prescriptionis for a schedule II opioid drug., 160.02, cm, 10/0... Start Date: 05/11/21 Status: Ordered meloxicam 15 mg oral tablet See Instructions, TAKE 1 TABLET BY MOUTH DAILY WITH FOOD. LABS NEEDED FOR FURTHER REFILLS, # 30 tablet, 3 Refills, Maintenance, 10/18/22 21:31:00 EDT, [facility], 157, cm, 09/13/22 15:58:00 EST,Height, 145, kg, [...] 09/05/22 16:29:00 EST, Route to Pharmacy Electronically, [facility]/pharmacy #2025, Partialfill upon patient request if the prescription is fo... Start Date: 09/05/22 Stop Date: 09/12/22 Status: Ordered traMADol 50 mg oral tablet See Instructions, 2 tab po qam and one tab po q pm prn moderate to severe pain. 28 days. mass pat ok, # 81 tablet, 0 Refills, Maintenance, 10/29/22 21:38:00 EDT, [facility], 157, cm, 09/13/2314:58:00 EST, Height, 145, kg, 08/29/22 20:13:00 E... Start Date: 10/29/22 Status: Ordered zolpidem 10 mg oral tablet 1 tablet = 10 mg, By Mouth, Daily at bedtime, PRN for sleep, for 30 days, masspat check may fill less, # 30 tablet, 0 Refills, Acute 11/20/22 16:47:00 EDT, 10/21/22 16:47:00 EDT, Tablet, [facility]/pharmacy#5, 157, cm, 09/13/22 15:58:00 EST, Height, 145... Start Date: 10/21/22 Stop Date: 11/20/22 Status: Ordered Problem List Condition Confirmation Course [...] Team Personnel Name: Celestina Trinidad MD Position: [facility] Primary Care Physician Member Role: PCP Address: Address: [address] [place] [address] Name: Hemalatha Lucas RN Position: [facility] RN Member Role: Primary Care Nurse Name: Lauren Mack RN Position: [facility] AMB Nurse Member Role: Primary Care Nurse Name: Madelaine Ruiz RN Position: [facility] RN Member Role: Primary Care Nurse Name: Lora Santiago RN Position: [facility] RN Member Role: Primary Care Nurse Name: Mayco Ro RN Position: [facility] RN Member Role: Primary Care Nurse Name: Heydi Potts RN Position: [facility] RN Member Role: Primary Care Nurse Name: Janice Romano LPN Position: [facility] RN Member Role: Primary Care Nurse Name: Nadya Low RN Position: [facility] RN Member Role: Primary Care Nurse Name: Mirna Greenfield RN Position: [facility] RN Member Role: Primary Care Nurse Name: Nessa Bonilla RN Position: [facility] [employer] Member Role: Primary Care Nurse Care Team Related Persons Name: ROSETTADINESH Address: home [address] [place] [address] Name: BON DE Address: home [address] [address]
--- OUTSIDE RECORDS SUMMARY | 2024-06-24 14:08 | XMS_ITS | Continuity of Care Document ---
Author Organization [facility] Address [address] [place] [address]- Care Team Providers Care Machine Tester Name Role Phone Vivi HENNING, Celestina Givens Primary Care Physician Encounter [facility] Date(s): 02/11/24 - 03/12/24 [facility] [address] [place] [address]- Allergies, Adverse Reactions, Alerts No Known Allergies [...] 08/21/22 Given tetanus/diphtheria/pertussis, acel(Tdap) 7 08/13/12 Given [id number] 12y+ bivalent booster vax 06/14/22 Recorded SARS-CoV-2 mRNA ([id number]) vax 02/14/22 Recorded SARS-CoV-2 (COVID-19) mRNA BNT-162b2 vac 05/06/21 Given SARS-CoV-2 (COVID-19) mRNA BNT-162b2 vac 11/04/20 Recorded SARS-CoV-2 (COVID-19) mRNA BNT-162b2 vac 10/14/20 Recorded pneumococcal 23-valent vaccine 8 04/07/19 Given 1Result Comment: screening negative 2Result Comment: [facility]# [id number] 3Result Comment: [05/25/2018] [employer] lot number [id number] exp 01/26/2019 [facility] [id number] 4Result Comment: [08/20/2017] [facility] [id number] 5Admin Note: VIM dated 01/29/12 GIVEN TODAY 6Result Comment: [facility]# [id number] 7Admin Note: VIM dated 08/22/11 GIVEN TODAY 8Result Comment: [facility]#[id number] Medications acetaminophen 500 mg oral capsule 2 [...] 1 Refills, Soft Stop, 12/06/23 17:28:00 EDT, [facility]/pharmacy #5, Partial fill upon patient request if [...] 05/17/24 16:46:00 EDT, Route to Pharmacy Electronically, [facility]/pharmacy #[id number], Partial fill upon patient request if the prescription is for a... Start Date: 05/17/24 Status: Ordered cyclobenzaprine 10 mg oral tablet 10 mg, 1, tablet, By Mouth, 3 times a day, PRN, # 30 tablet, Refills 0, Tot. Refills 0, Acute 05/17/24 16:46:00 EDT, for spasm, 05/17/23 16:45:00 EDT, Route to Pharmacy Electronically, [facility]/pharmacy #[id number], Partial fill upon patient request if the presc... Start Date: 05/17/23 Stop Date: 05/17/24 Status: Ordered diclofenac 1% topical gel See Instructions, APPLY TO AFFECTED AREA 4 TIMES A DAY, # 100 Gm, 1 Refills, Maintenance, 11/07/23 7:48:00 EDT, [facility]/pharmacy #2024, 25, APPLY TO AFFECTED AREA 4 TIMES A DAY, 157.5, cm, 10/18/23 15:15:00 EDT, Height, 145.9, kg, 05/22/23 7:39:00 EDT, Start Date: 11/07/23 Status: Ordered diclofenac 1% topical gel See Instructions, APPLY TO AFFECTED AREA 4 TIMES A DAY. NOT COVERED, # 100 Gm, 1 Refills, Maintenance, 02/01/24 13:44:00 EDT, [id number], 30, APPLY TO AFFECTED AREA 4 TIMES A DAY. NOT COVERED, 157.5, cm, 01/22/24 10:31:00 EDT, Height, 145.9, kg,... Start Date: 02/01/24 Status: Ordered Dulera 50 mcg-5 mcg/inh inhalation [...] Gm, 0 Refills, Maintenance, 02/28/21 16:31:00 EDT, [place], [facility]/pharmacy #2024, Partial fill upon patient request if the prescription is for... Start Date: 02/28/21 Status: Ordered FLUoxetine 10 mg oral capsule 1, capsule, By Mouth, Daily, INSTR:TO BE TAKEN WITH 20MG CAPSULES TO EQUAL 30MG DAILY, # 90 capsule, Refills 1, Maintenance, 01/25/24 9:11:00 EDT, Route to Pharmacy Electronically, [id number], 157.5, cm, 01/22/24 10:31:00 EDT, Height, 145.9, kg,... Start Date: 01/25/24 Status: Ordered gabapentin 300 mg oral capsule 600 mg, 2, capsule, By Mouth, 3 times a day, # 180 capsule, Refills 3, Tot. Refills 3, Maintenance,08/25/22 22:35:00 EST, Route to Pharmacy Electronically, [facility]/pharmacy #2024, Partial fill upon patient request if [...] tablet, 1 Refills, Maintenance, 12/28/23 16:17:00 EDT, [id number], 157.5, cm, 10/18/23 15:15:00 EDT, Height, 145.9, kg, 05/22/23 7:39:00 EDT, Dry Weight Start Date: 12/28/23 Status: Ordered meclizine 25 mg oral tablet See Instructions, PRN Dizziness, 1 tablet By Mouth 3 times a day, # 30 tablet, 0 Refills, Maintenance, 02/27/23 10:43:00 EDT, [facility], Partial fill upon patient request if the prescriptionis for a schedule II opioid drug., 157, cm, ... Start Date: 02/27/23 Status: Ordered meloxicam 15 mg oral tablet See Instructions, TAKE 1 TABLET BY MOUTH DAILY WITH FOOD., # 30 tablet, 5 Refills, Maintenance, 10/08/23 17:05:00 EDT, [facility]/pharmacy #2025, 157.5, cm, 07/13/23 9:57:00 EST, Height, 145.9, kg, :39:00 EDT, Dry Weight Start Date: 10/08/23 Status: Ordered metFORMIN 500 mg oral tablet, extended release 1 tablet = 500 mg, By Mouth, Daily, # 90 tablet, 1 Refills, Maintenance, 01/22/24 11:02:00 EDT, ER Tablet, [facility]/pharmacy #2025, Partial fill upon patient request if [...] Tot. Refills 0, Maintenance, Pain , Severe, 01/25/24 16:24:00EDT, Route to Pharmacy Electronically, [facility]... Start Date: 01/25/24 Status: Ordered ROLLATOR WALKER with seat and [...] 10/18/23 1... Start Date: 11/29/23 Status: Ordered Vitamin D3 2000 intl units [...] bedtime, # 30 tablet, 0 Refills, Maintenance, 03/07/24 17:13:00 EDT, [facility], Partial fill upon patient request if the prescription is for a schedule II opioid drug., 157.5, cm, 02/12/24 14:48:00 EDT, He... Start Date: 03/07/24 Status: Ordered Problem List Condition Confirmation Course [...] Device Type Site Repair Hernia Umbilical Laparoscopic Emily HENNING, Yasemin 05/22/23 Unknown Umbilicus Device Identifier Serial Number Lot or Batch Number Manufacturing Date Expiration Date Distinct Identification Code MRI Safety Implantable Status Assigning Authority [id number] Unknown [id number] Unknown 08/26/24 Unknown Unknown Active GS1 Patient Care team information Care Team Personnel Name: Celestina Trinidad MD Position: [facility] Physician - Primary Care Member Role: PCP Address: Address: [address] [place] [address] Name: Hemalatha Lucas RN Position: [facility] RN Member Role: Primary Care Nurse Name: Lauren Mack RN Position: [facility] MARY Nurse Member Role: Primary Care Nurse Name: Madelaine Ruiz RN Position: [facility] RN Member Role: Primary Care Nurse Name: Lora Santiago RN Position: [facility] RN Member Role: Primary Care Nurse Name: Mayco Ro RN Position: [facility] RN Member Role: Primary Care Nurse Name: Heydi Potts RN Position: [facility] SN RN Member Role: Primary Care Nurse Name: Janice Romano LPN Position: [facility] RN Member Role: Primary Care Nurse Name: Nadya Low RN Position: [facility] RN Member Role: Primary Care Nurse Name: Mirna Greenfield RN Position: [facility] RN Member Role: Primary Care Nurse Name: eNssa Bonilla RN Position: [facility] Product Advisor Member Role: Primary Care Nurse Care Team Related Persons Name: ROSETTA DINESH Address: home [address] [place] [address] Name: BON DE Address: home [address] [address]
--- OUTSIDE RECORDS SUMMARY | 2024-06-24 14:08 | XMS_ITS | Continuity of Care Document ---
Author Organization [facility] ter Address [address] [place] [id number]- Care Team Providers Care Charge Account Authorizer Name Role Phone Vivi HENNING, Celestina Givens Primary Care Physician Encounter [facility] [place] Date(s): 08/29/22 - 08/31/[address] [address]- Discharge Disposition: A-D/C Home Attending Physician: Jeannine Ames MD Admitting Physician: Jeannine Ames MD Referring Physician: Jeannine Ames MD Allergies, Adverse Reactions, Alerts No Known Allergies Immunizations Given and Recorded Vaccine Date Status Refusal Reason tetanus/diphtheria/pertussis, acel(Tdap) 1 08/21/22 Given tetanus/diphtheria/pertussis, acel(Tdap) 2 08/13/12 Given [id number] 12y+ bivalent booster vax 06/14/22 Recorded influenza [...] inactivated 6 07/31/12 Gi hali SARS-CoV-2 mRNA (heliyzy-[id number]) vax 02/14/22 Recorded SARS-CoV-2 (COVID-19) mRNA BNT-162b2 vac 05/06/21 Given SARS-CoV-2 (COVID-19) mRNA BNT-162b2 vac 11/04/20 Recorded SARS-CoV-2 (COVID-19) mRNA BNT-162b2 vac 10/14/20 Recorded pneumococcal 23-valent vaccine 7 04/07/19 Given 1Result Comment: [facility]# [id number] 2Admin Note: VIM dated 08/22/11 GIVEN TODAY 3Result Comment: [facility]# [id number] 4Result Comment: [05/25/2018] [employer] lot number [id number] exp 01/26/[address] [facility] [id number] 5Result Comment: [08/20/2017] [facility] [id number] 6Admin Note: VIM dated 01/29/12 GIVEN TODAY 7Result Comment: [facility]#[id number] Medications acetaminophen 500 mg oral capsule 2 [...] Stop, 04/10/2215:14:00 EDT, Route to Pharmacy Electronically, [id number], [facility]/pharmacy #[id number], 158, cm, 04/10/22 14:56:00 EDT, Height, 143,... Start Date: 04/10/22 Status: Ordered amLODIPine 5 mg oral tablet 1 tablet, By Mouth, Daily, # 30 tablet, 5 Refills, Maintenance, 08/24/22 20:08:00 EST, [id number], 159, cm, 08/21/22 11:38:00 EST, Height, 143, kg, 01/04/21 10:42:00 EDT, Dry Weight Start Date: 08/24/22 Status: Ordered amLODIPine 5 mg oral tablet 5 mg, Tablet, By Mouth, 08/31/22 9:00:00 EST Start Date: 08/31/22 Stop Date: 08/31/22 Status: Completed Anoro Ellipta 62.5 mcg-25 mcg/inh inhalation powder 1 puffs, By Mouth, Daily, # 1 each, 6 Refills, Maintenance, 05/11/22 13:00:00 EDT, Powder, [facility], Partial fill upon patient request if the prescription is for a schedule II opioid drug., 1puffs By Mouth Daily,x30 days, 158, cm, 05/08/22 11... Start Date: 05/11/22 Stop Date: 12/07/22 Status: Ordered Augmentin 875 mg-125 mg oral tablet 1 tablet, By Mouth, Every 12 hours, for 6 week(s), # 84 tablet, 0 Refills, Acute 10/12/22 13:28:00 EDT, 08/31/22 13:28:00 EST, Tablet, [facility]/pharmacy #2025, Partial fill upon patient request if the prescription is for a schedule II opioid drug., 157, cm... Start Date: 08/31/22 Stop Date: 10/12/22 Status: Ordered cilostazol 100 mg oral tablet 1 tablet, By Mouth, 2 times a day, # 60 tablet, 0 Refills, Maintenance, 08/20/22 11:31:00 EST, [id number], 159, cm, 08/15/22 11:23:00 EST, Height, 143, kg, 01/04/21 10:42:00 EDT, Dry Weight Start Date: 08/20/22 Status: Ordered Compression Stockings See Instructions, # [...] 100 Gm, 1 Refills, 09/19/21 12:51:00 EST, [facility]/pharmacy #2024, 25, APPLY TOPICALLY 4 TIMES A DAY, 160.02, cm, 07/25/21 16:20:00 EST, Height, 143, kg,01/04/21 10:42:00 EDT, Dry Weight Start Date: 09/19/21 Status: Ordered docusate sodium 100 mg oral capsule 100 mg, 1, capsule, By Mouth, 2 times a day, PRN, # 20 capsule, Refills 0, Tot. Refills 0, Maintenance, as needed for constipation, 08/31/22 13:30:00 EST, Route to Pharmacy Electronically, [facility]/pharmacy #2024, Partial fill upon patient request if the p... Start Date: 08/31/22 Status: Ordered Flonase 50 mcg/inh nasal spray See Instructions, 2 sprays Nares twice daily x 1 week, then once daily x 1-2 weeks until symptoms improve, # 16 Gm, 0 Refills, Maintenance, 02/28/21 16:31:00 EDT, [place], [facility]/pharmacy #202, Partial fill upon patient request if the prescription is for... Start Date: 02/28/21 Status: Ordered fluconazole 200 mg oral tablet 2 tablet = 400 mg, By Mouth, Daily, for 6 week(s), # 84 tablet, 0 Refills, Acute 10/12/22 13:28:00 EDT, 08/31/22 13:28:00 EST, Tablet, [facility]/pharmacy #202, Partial fill upon patient request if the prescription is for a schedule II opioid drug., 157, cm... Start Date: 08/31/22 Stop Date: 10/12/22 Status: Ordered FLUoxetine 20 mg oral capsule See Instructions, TAKE 1 CAPSULE BY MOUTH EVERY DAY, # 90 capsule, Refills 1, Maintenance, 06/13/2215:26:00 EST, Instructions Replace Required Details, Route to Pharmacy Electronically, [id number], 158, cm, 06/09/22 11:21:00 EST, Height, 143, kg... Start Date: 06/13/22 Status: Ordered gabapentin 300 mg oral capsule 600 mg, Capsule, By Mouth, 08/31/22 11:00:00 EST Start Date: 08/31/22 Stop Date: 08/31/22 Status: Completed gabapentin 300 mg oral capsule 600 mg, 2, capsule, By Mouth, 3 times a day, # 180 capsule, Refills 3, Tot. Refills 3, Maintenance,08/25/22 22:35:00 EST, Route to Pharmacy Electronically, [facility]/pharmacy #2024, Partial fill upon patient request if the prescription is for a schedule II... Start Date: 08/25/22 Status: Ordered levothyroxine 0.137 mg oral tablet 1 tablet = 137 mcg, By Mouth, Daily, 1 tab on days 1-6, take 2 tabs on day 7, # 102 tablet, 1 Refills, Maintenance, 07/03/22 14:41:00 EST, Tablet, [facility]/pharmacy #2024, Partial fill upon patient request if the prescription is for a schedule II opioid dr.Melonie. Start Date: 07/03/22 Status: Ordered meclizine 25 mg oral tablet See Instructions, PRN Dizziness, 1 tablet By Mouth 3 times a day, # 30 tablet, 0 Refills, Maintenance, 05/11/21 13:11:00 EDT, [facility]/pharmacy #2024, Partial fill upon patient request if the prescriptionis for a schedule II opioid drug., 160.02, cm, 100... Start Date: 05/11/21 Status: Ordered meloxicam 15 mg oral tablet See Instructions, TAKE 1 TABLET BY MOUTH DAILY WITH FOOD. LABS NEEDED FOR FURTHER REFILLS, # 30 tablet, 3 Refills, Maintenance, 07/17/22 19:56:00 EST, [facility]/pharmacy #2024, 158, cm, 07/13/22 13:46:00 EST, Height, 143, kg, 01/04/21 10:42:00 EDT, Dry Weight Start Date: 07/17/22 Status: Ordered oxyCODONE 10 mg oral tablet 1 tablet = 10 mg, By Mouth, Every 6 hours, PRN as needed for pain, for 5 days, # 20 tablet, 0 Refills, Acute 09/05/22 13:29:00 EST, 08/31/22 13:29:00 EST, Tablet, [facility]/pharmacy #2024, Partial fill upon patient request if the prescription is for a sched... Start Date: 08/31/22 Stop Date: 09/05/22 Status: Ordered Splint See Instructions, # 1 [...] Most recent to oldest [Reference Range]: 1 2 3 Height 157 cm (08/31/22 7:20 AM) 157 cm (08/31/22 5:02 AM) 157 cm (08/30/22 7:03 PM) Weight 145 kg (08/29/22 8:13 PM) Oxygen Saturation [94-100 %] 96 % (08/31/22 7:20 AM) 96 % (08/31/22 5:02 AM) 100 % (08/30/22 7:03 PM) Pulse Rate [55-90 bpm] 89 bpm (08/31/22 7:20 AM) 86 bpm (08/31/22 5:02 AM) 88 bpm (08/30/22 7:03 PM) Body Mass Index [18.5-24.99 kg/m2] 58.83 kg/m2 *>HHI* (08/29/22 8:13 PM) Blood Pressure [90-138/55-84 mm Hg] 123/73mm Hg (08/31/22 9:37 AM) 134/55mm Hg (08/31/22 7:20 AM) 150/75mm Hg *H* (08/31/22 5:02 AM) Respiratory Rate [16-30 br/min] 17 br/min (08/31/22 10:36 AM) 18 br/min (08/31/22 9:36 AM) 18 br/min (08/31/22 7:20 AM) Temperature [96.8-100.4 DegF] 97.5 DegF (08/31/22 7:20 AM) 97.4 DegF (08/31/22 5:02 AM) 98.5 DegF (08/30/22 7:03 PM) Mode of Delivery (Oxygen) Room air (08/31/22 7:20 AM) Room air (08/31/22 5:02 AM) Room air (08/30/22 7:03 PM) Blood pressure sites Arm, left (08/31/22 7:20 AM) Arm, left (08/31/22 5:02 AM) Arm, left (08/30/22 7:03 PM) Temperature Route Oral (08/31/22 7:20 AM) Oral (08/31/22 5:02 AM) Oral (08/30/22 7:03 PM) Dry Weight 145 kg (08/29/22 8:13 PM) Weight Obtained Via Patient/family state d (08/29/22 8:13 PM) Social History Social History Type Response Smoking Status Former smoker, quit more than 30 days ago; Other: smoked up to pack a day x 25 years; entered on: 11/14/21 Sex Admission evaluation note * Billie Ramirez MD: MODIFY, SIGN, VERIFY, PERFORM, MODIFY Event Display: Admission Note Authored Date: [id number] Patient: JORGE ALBERTO SAHU Age: 62 years Sex: Female : 1960 Associated Diagnoses: None Author: Billie Ramirez MD Admission Information Attending Physician Certification of Inpatient Medical Necessity Estimated Duration of Hospitalization: 3-4 days. Plans for Posthospital Care: Home. History of Present Illness Jorge Alberto is a 62-year-old female who was directly admitted due to a non healing right finger ulcer. She was initially seen at an OSH on 07/01/22 with an acutely painful purple cold right index finger. Workup in the ER included multiple labs (CRP was high, CBC normal). She had good peripheral pulses. She was started on amlodipine and pletal and discharged home with oxycodone for pain. Since then the purple area of her index finger gradually decreased; initially the whole finger was involved; 2 weekslater only the distal phalanx was still purple/black and cold. She also had cellulitis/tissue necrosis at an area of infection on the finger, and was treated with doxycycline. Wound care cultured thewound and felt there might be a fungal infection, so she was started on a p.o. antifungal. Infectious disease recommended a biopsy of the wound. She was seen in the vascular surgery office on 08/25 where she was found to have a large necrotic eschar at the base of the wound. She underwent a debridement of the finger with bone biopsy which showed E.faecalis/luis a. She has since completed her oral antifungals. She was directly admitted to Vascular Surgery for IV antibiotics and further management. The finger is extremely painful to touch and erythematous, but she is motor and sensation intact.She denies any fevers, chills, chest pain, SOB, nausea, or vomiting. She is afebrile and hemodynamic ally stable. Past Medical History Asthma Hypothyroidism Eczema Ischemic finger Thromboangiitis obliterans Obesity MDD Allergies: Patient denies any known allergies Problem list All Problems knee pain / Confirmed morbid obesity ( class III) / Confirmed Acquired hypothyroidism / SNOMED CT 075200464 / Confirmed Asthma / SNOMED CT 528402505 / Confirmed BMI 50.0-59.9, adult / SNOMED CT 7247106649 / Confirmed Eczema / SNOMED CT 36592011 / Confirmed Hirsutism / SNOMED CT 2808618027 / Confirmed Hyperkeratosis of skin / SNOMED CT 273547612 / Confirmed Ischemic finger / SNOMED CT 610045420 / Confirmed Mild persistent asthma without complication / SNOMED CT 3032028857 / Confirmed Mild recurrent major depression / SNOMED CT 270598259 / Confirmed Obesity / SNOMED CT 2116084411 / Confirmed Osteoarthritis of both knees / SNOMED CT 875545796 / Confirmed Severe obesity / SNOMED CT 7903485236 / Confirmed Thromboangiitis obliterans / SNOMED CT 50439661 / Confirmed Allergies Allergic Reactions (Selected) NKA Current medications (Selected) Inpatient Medications Ordered Acetaminophen Tablet: 650 mg, Tablet, By Mouth, Every 4 hours, PRN for Pain , Mild, Temperature Greater than 100.5, Routine, 08/29/22 18:33:00 EST Docusate/Senna Tablet: 1 tablet, Tablet, By Mouth, 2 times a day, PRN for Constipation, Routine, 08/29/22 18:33:00 EST Melatonin Tablet: 3 mg, Tablet, By Mouth, Daily at bedtime, PRN for Insomnia, Routine, 08/29/22 18:33:00 EST MiraLax Powder: 17 Gm, Powder, By Mouth, Daily for 14 days, Dissolve in 8 ounces of water., PRN forConstipation, Routine, 08/29/22 18:33:00 EST, Stop date 09/12/22 18:32:00 EST NaCL 0.9% Flush: 3 mL, Injection, IV Push, Every 8 hours, PRN for Line/Tube Patency, Routine, 08/29/22 18:33:00 EST NaCL 0.9% Flush: 3 mL, Injection, IV Push, Every 8 hours, Routine, 08/29/22 19:00:00 EST Robitussin DM Liquid: 10 mL, Syrup, By Mouth, Every 4 hours, PRN for Cough, Routine, 08/29/22 18:33:00 EST Simethicone Tablet: 80 mg, Chew Tablet, Chew, 3 times a day, PRN for Gas, Routine, 08/29/22 18:33:00 EST Prescriptions Prescribed Aerochamber w/Mask (Medium): See Instructions, # 1 each, Maintenance, Use as directed with albuterol inhaler. Asthma ICD 10 code J45.909, 08/15/19 7:50:00 EST, Compound, 161, cm, 08/12/19 12:43:00 EST, Height Anoro Ellipta 62.5 mcg-25 mcg/inh inhalation powder: 1 puffs, By Mouth, Daily, # 1 each, 6 Refills,Maintenance, 05/11/22 13:00:00 EDT, Powder, [facility], Partial fill upon patient request if the prescription is for a schedule II opioid drug., 1 puffs By Mouth Daily,x30 days, 158, cm, 05/08/22 11... Compression Stockings: See Instructions, # 2 each, Refills 2, Tot. Refills 2, Maintenance, surgical, calf length 20-30 mm Hg Dx: venous insufficiency, 07/01/22 6:53:00 EST, Compound, 158, cm, 06/09/22 11:21:00 EST, Height, 143, kg, 01/04/21 10:42:00 EDT, Dry Weight FLUoxetine 20 mg oral capsule: See Instructions, TAKE 1 CAPSULE BY MOUTH EVERY DAY, # 90 capsule, Refills 1, Maintenance, 06/13/22 15:26:00 EST, Instructions Replace Required Details, Route to Pharmacy Electronically, [id number], 158, cm, 06/09/22 11:21:00 EST, Height, 143, kg... Flonase 50 mcg/inh nasal spray: See Instructions, 2 sprays Nares twice daily x 1 week, then once daily x 1-2 weeks until symptoms improve, # 16 Gm, 0 Refills, Maintenance, 02/28/21 16:31:00 EDT, [place], [facility]/pharmacy #2024, Partial fill upon patient request if the prescription is for... Santyl 250 u/gm ointment: 1 application, Topically, Daily, # 15 Gm, 2 Refills, Acute 09/27/22 16:00:00 EST, 08/01/22 21:26:00 EST, Ointment, [facility]/pharmacy #2024, Partial fill upon patient request if the prescription is for a schedule II opioid drug., 1 application Topically [place]to... Splint: See Instructions, # 1 each, Maintenance, left wrist short cock-up splint, 01/08/20 14:28:00EDT, Supply albuterol CFC free 90 mcg/inh inhalation aerosol: 2, puffs, Inhalation, Every 4 hours, PRN, # 18 Gm, Refills 11, Tot. Refills 11, Soft Stop, 04/10/22 15:14:00 EDT, Route to Pharmacy Electronically, [id number], [facility]/pharmacy #2024, 158, cm, 04/10/22 14:56:00 EDT, Height, 143,... amLODIPine 5 mg oral tablet: 1 tablet, By Mouth, Daily, # 30 tablet, 5 Refills, Maintenance, 08/24/22 20:08:00 EST, [facility], 159, cm, 08/21/22 11:38:00 EST, Height, 143, kg, 01/04/21 10:42:00EDT, Dry Weight cilostazol 100 mg oral tablet: 1 tablet, By Mouth, 2 times a day, # 60 tablet, 0 Refills, Maintenance, 08/20/22 11:31:00 EST, [facility], 159, cm, 08/15/22 11:23:00 EST, Height, 143, kg, 01/04/21 10:42:00 EDT, Dry Weight diclofenac 1% topical gel: See Instructions, APPLY TOPICALLY 4 TIMES A DAY, # 100 Gm, 1 Refills, 09/19/21 12:51:00 EST, [facility]/pharmacy #2024, 25, APPLY TOPICALLY 4 TIMES A DAY, 160.02, cm, 07/25/21 16:20:00 EST, Height, 143, kg, 01/04/21 10:42:00 EDT, Dry Weight doxycycline hyclate 100 mg oral tablet: 1 tablet, By Mouth, 2 times a day, # 20 tablet, 0 Refills, Maintenance, 08/10/22 16:34:00 EST, [facility]/pharmacy #2024, 159, cm, 08/01/22 14:14:00 EST, Height, 143,kg, 01/04/21 10:42:00 EDT, Dry Weight gabapentin 300 mg oral capsule: 600 mg, 2, capsule, By Mouth, 2 times a day, # 120 capsule, Refills1, Tot. Refills 1, Maintenance, 07/22/22 8:06:00 EST, Route to Pharmacy Electronically, [facility]/pharmacy #202, Partial fill upon patient request if the prescription is for a schedule II... gabapentin 300 mg oral capsule: 600 mg, 2, capsule, By Mouth, 3 times a day, # 180 capsule, Refills3, Tot. Refills 3, Maintenance, 08/25/22 22:35:00 EST, Route to Pharmacy Electronically, [facility]/pharmacy #202, Partial fill upon patient request if the prescription is for a schedule II... levothyroxine 0.137 mg oral tablet: 1 tablet = 137 mcg, By Mouth, Daily, 1 tab on days 1-6, take 2 tabs on day 7, # 102 tablet, 1 Refills, Maintenance, 07/03/22 14:41:00 EST, Tablet, [facility]/pharmacy #2024, Partial fill upon patient request if the prescription is for a schedule II opioid dr... levothyroxine 0.137 mg oral tablet: See Instructions, TAKE 1 TABLET BY MOUTH ON DAYS 1-6, THEN TAKE2 TABLETS BY MOUTH ON DAY 7 Needs TSH lab work for refills, # 96 tablet, 0 Refills, 06/29/22 15:47:00 EST, [facility], 158, cm, 06/09/22 11:21:00 EST, Height, 143, kg, 01/04/21 1... meclizine 25 mg oral tablet: See Instructions, PRN Dizziness, 1 tablet By Mouth 3 times a day, # 30tablet, 0 Refills, Maintenance, 05/11/21 13:11:00 EDT, [facility]/pharmacy #2024, Partial fill upon patient request if the prescription is for a schedule II opioid drug., 160.02, cm, 10/0... meloxicam 15 mg oral tablet: See Instructions, TAKE 1 TABLET BY MOUTH DAILY WITH FOOD. LABS NEEDED FOR FURTHER REFILLS, # 30 tablet, 3 Refills, Maintenance, 07/17/22 19:56:00 EST, [facility]/pharmacy #2024,158, cm, 07/13/22 13:46:00 EST, Height, 143, kg, 01/04/21 10:42:00 EDT, Dry Weight... oxyCODONE 10 mg oral tablet: 1 tablet = 10 mg, By Mouth, Every 6 hours, PRN as needed for pain, # 20 tablet, 0 Refills, Maintenance, 08/01/22 16:58:00 EST, Tablet, [facility]/pharmacy #2024, Partial fill upon patient request if the prescription is for a schedule II opioid drug., 159, cm... traMADol 50 mg oral tablet: See Instructions, 2 tab po qam and one tab po q pm prn moderate to severe pain, # 81 tablet, 0 Refills, Maintenance, 07/11/22 17:21:00 EST, [facility], 158, cm, 07/07/22 11:19:00 EST, Height, 143, kg, 01/04/21 10:42:00 EDT, Dry Weight Documented Medications Documented Diflucan 100 mg oral tablet: 1 tablet = 100 mg, By Mouth, Daily, Patient taking 200 mg, 0 Refills, Maintenance, 08/25/22 11:14:00 EST, Partial fill upon patient request if the prescription is for a schedule II opioid drug. acetaminophen 500 mg oral capsule: 2 capsule = 1,000 mg, By Mouth, 2 times a day, 0 Refills, Maintenance, 07/25/21 16:23:00 EST, Partial fill upon patient request if the prescription is for a schedule II opioid drug. oxyCODONE 5 mg oral tablet: 5 mg, 1, tablet, By Mouth, Every 6 hours, Refills 0, Tot. Refills 0, Maintenance, 07/03/22 13:46:00 EST, Partial fill upon patient request if the prescription is for a schedule II opioid drug. Surgical History Left Knee arthroplasty: 06/14/15 Arthroscopically aided treatment of intercondylar spine(s) and/or tuberosity fracture(s) of the knee, with or without manipulation; without internal or external fixation (includes arthroscopy) Arthroscopy, elbow, diagnostic, with or without synovial biopsy (separate procedure) Arthrotomy, acromioclavicular joint or sternoclavicular joint, including biopsy and/or excision of torn cartilage Social History Patient denies any alcohol use Former tobacco use Current marijuana Patient lives at home alone Family History Patient denies any past family history Review of Systems All others negative as per HPI Physical Examination Vitals: Temperature 98.8 (20:16) Systolic Blood Pressure 128 (19:47) Diastolic Blood Pressure 62 (19:47) Pulse 87 (20:16) SpO2 98 (20:13) Respiratory Rate 16 (20:16) Physical Exam: Constitutional: No acute distress, awake, alert and oriented x3, obese Cardiovascular: Regular rate and rhythm, +S1/S2, no murmurs, rubs, or gallops, no edema, 2+ dorsalis pedia bilaterally Respiratory: Clear to auscultation bilaterally, no wheezes, rales, rhonchi, or crackles Abdomen: soft, non-tender, non-distended Gastrointestinal: bowel sounds present Genitourinary: no CVA tenderness Musculoskeletal: no calf tenderness Skin: Right index finger distal phalanx with approximately 1.5 cm ulceration with no signs of necrosis, there is surrounding erythema. There is a healing left index finger laceration with sutures in place with no erythema. Neurological: no loss of sensation bilaterally Lymphatic: no lymphedema or hepatosplenomegaly Results Review No labs resulted between 08/28/2022 00:00 and 08/29/2022 21:40 Impression and Plan Jorge Alberto is a 62F w/ PMH of Thromboangiitis obliterans, asthma, obesity, and hypothyroidism who was directly admitted due to an ongoing non healing right index finger ulcer. She was seen in clinic on 08/25 where she underwent a debridement and bone biopsy which was significant for Canidia and E. fecalis. The area has failed to heal despite wound care and continues to be extremely painful to touch. Given the results of the bone biopsy the decision was made to directly admit her for IV antibiotics aswell as a RUE angiogram. We will consult ID as they initially recommended obtaining the bone biopsy. Plan: - Diet: Regular diet - IV ab: Zosyn/Fluconazole - ID consult - Wound care - Pain control: Oxy, Isabela, Tylenol - OR for RUE angiogram - DVT Prophylaxis: [facility] [place] [phone] with any questions This patient was discussed with ??[facility] Progress note * Manisha Elam: PERFORM, SIGN, VERIFY Event Display: Progress Note Hospital Authored Date: [id number] Patient: JORGE ALBERTO SAHU [facility]: [id number] Age: 62 years Sex: Female : 1960 Associated Diagnoses: None Author: Manisha Elam Findings Problem Related to Alteration in Integumentary : Alteration in Integumentary/new 08/31/2022 7:00 EST Alteration in Integumentary Related to Other: right index finger ulcer Goals & Outcomes, Integumentary Nutritional intake is adequate for metabolic needs, Pt will maintain adequate fluid & nutritional balance, Pt will maintain intact skin integrity, Wound will progress towards healing Interventions, Integumentary Cleanse all wounds with Normal Saline, Consult Wound Care as needed for further interventions, Encourage & assist with range of motion exercises, Interdisciplinary consults as appropriate, Keep linen clean, dry and wrinkle free, Keep skin clean & dry, Maintain sterile technique with dressing changes, Minimize friction, shear and moisture, Record extent of impai red skin integrity, Teach Pt/caregiver s/s of infection, Teach Pt/S.O. risks of & measures to prevent skin breakdown BH Goals/Interventions, Integumentary Yes Integumentary, Problem Start 08/31/2022 7:43 Reviewed plan with, Integumentary Patient Patient Progression, Integumentary Plan Initiation . Nursing Data Integumentary Data. : Integumentary Data. 08/31/2022 7:00 EST Skin Integrity Intact Pressure Ulcer Location I Fingers, right Pressure Ulcer I, Stage Unable to Stage Pressure Ulcer I, Surrounding Skin Intact Integumentary WNL except . Evaluation Pt AAOx4, VSS on RA in no apparent distress. pt denying pain, SOB, N/V. Ambualting independently tobathroom, voiding without issue. pt diet changed to regular, tolerating diet. ulcer on right hand index finger wrapped with gauze and tape. Pt scheduled for angio procedure, procedure cancelled and will be preformed outpt. Pt planned to be discharged home.. * Jacek Bull NP: PERFORM, SIGN, VERIFY Event Display: Progress Note Hospital Authored Date: Patient: JORGE ALBERTO SAHU Age: 62 years Sex: Female : 1960 Associated Diagnoses: None Author: Jacek Bull NP Subjective No acute events overnight. Denies chest pain, shortness of breath, nausea or vomiting. Pain controlled Objective Vital Signs Vitals : VITALS 08/31/2022 5:02 EST Height 157 cm Temperature 97.4 DegF Temperature Route Oral Pulse Rate 86 bpm Respiratory Rate 18 br/min Systolic Blood Pressure 150 mm Hg H Diastolic Blood Pressure 75 mm Hg Blood pressure sites Arm, left Mean Arterial Pressure 100 mm Hg Pulse Pressure 75 mm Hg Oxygen Saturation 96 % Mode of Delivery (Oxygen) Room air . Physical exam Patient is: in no acute distress, alert, awake. Cardiac: RRR. Respiratory: CTA. Abdomen: Abdomen is (soft, non-tender, non-distended), Bowel Sounds positive. Extremities: Right index finger distal phalanx with approximately 1.5 cm ulceration with no signs of necrosis, there is surrounding erythema. There is a healing left index finger laceration with sutures in place with no erythema. . Vascular Surgical Pulses Left Upper Extremity: Radial palpable, Ulnar palpable. Left Lower Extremity: Dorsalis pedis palpable, Posterior tibial palpable. Right Upper Extremity: Radial palpable, Ulnar palpable. Right Lower Extremity: Dorsalis pedis palpable, Posterior tibial palpable. Results Review 7 Day Results Results Laboratory : LABORATORY 08/31/2022 7:29 EST WBC 6.7 k/mm3 RBC 3.56 m/mm3 L Hgb 10.7 Gm/dL L Hct 33.4 % L MCV 93.8 femtoliters MCH 30.1 pg MCHC 32.0 g/dL L Platelet Count 319 k/mm3 RDW-SD 46.7 femtoliters MPV 9.2 femtoliters L Nucleated RBC (Automated) 0.0 #/100 WBC'S Abs. NRBC 0.0 k/mm3 Abs. Neut 3.2 k/mm3 Abs. Lymph 2.4 k/mm3 Abs. [place] 0.6 k/mm3 Abs. Eo 0.3 k/mm3 Abs. Baso 0.1 k/mm3 Neut % 48.5 % Lymph % 35.4 % [place] % 9.3 % Eos % 4.9 % Baso % 1.0 % Imm Gran 0.9 % Abs. Imm Gran 0.1 k/mm3 INR 1.0 Protime (PT) 10.7 seconds APTT 25.5 seconds Sodium 139 mmol/L Potassium 4.3 mmol/L Chloride 102 mmol/L Bicarbonate Level 26 mmol/L Anion Gap 11 BUN 14 mg/dL Creatinine-Blood 0.7 mg/dL Estimated GFR Creatinine 97 ML/MIN/1.73 M2 Calcium, Ionized pH Corrected 1.18 mmol/L Phosphorus 3.8 mg/dL Magnesium 1.9 mg/dL Impression and Plan Jorge Alberto is a 62F w/ PMH of Thromboangiitis obliterans, asthma, obesity, and hypothyroidism who was directly admitted due to an ongoing non healing right index finger ulcer. She was seen in clinic on 08/25 where she underwent a debridement and bone biopsy which was significant for Canidia and E. fecalis. The area has failed to heal despite wound care and continues to be extremely painful to touch. Given the results of the bone biopsy the decision was made to directly admit her for IV antibiotics aswell as a RUE angiogram. We will consult ID as they initially recommended obtaining the bone biopsy. Unable to perform RUE angiogram today due to lack of OR space. Will arrange outpatient. Will resume diet Plan: - Regular diet - RUE angiogram to be scheduled outpatient - IV abx: Zosyn/Fluconazole - ID consult; will need outpatient abx plan ?IV vs PO - Moist saline gauze packing to right index finger, cover with DSD - Pain control: Oxy, Isabela, Tylenol - DVT Prophylaxis: [facility] [place] [phone] with any questions This patient was discussed with ??Hui * Janice Romano LPN: PERFORM, SIGN, VERIFY Event Display: Progress Note Hospital Authored Date: Patient: JORGE ALBERTO SAHU Age: 62 years Sex: Female : 1960 Associated Diagnoses: None Author: Janice Romano LPN Findings Evaluation Patient alert, oriented and independently abulatory. Friends visiting at bedside. Patient in good spirits. Appetite good. Does c/o pain to right index finer and is noted to be massaging right knee (has osteroarthritis) . Medicated for pain her orders with gabapentin and oxycodone with satifactorialresults. EKG [place] pre procedure for tomorrows angiogram and plced on paper chart. Pre op checklist started. IV to left hand no longer patent and would not flush. IV team paged for replacement so IV meds can be administered. Safety and comfort maintained.. Note * Manisha Elam: PERFORM Event Display: Discharge/Transfer Note Hospital Authored Date: Nursing Discharge Note Entered On: 08/31/2022 15:47 EST Performed On: 08/31/2022 15:46 EST by Manisha Elam Nursing Discharge Note 2 Discharge Time : 08/31/2022 15:47 EST Discharge Level of Care at Discharge : Home/Jail/Foster Care Patient Left Unit Via : Ambulatory Patient Accompanied Off Unit with : Responsible adult DC Instructions Provided & Signed by Pt : Yes Patient Understands D/C Instructions : Yes Patient Instructions Discharge Signed : Yes Did Pt have Specialty Bed or Wound Vac : No aMnisha Elam - 08/31/2022 15:46 EST * Jacek Bull NP: MODIFY, MODIFY, SIGN, VERIFY, PERFORM Event Display: Discharge/Transfer Note Hospital Authored Date: [id number] Patient: JORGE ALBERTO SAHU Age: 62 years Sex: Female : 1960 Associated Diagnoses: None Author: Jacek Bull NP Discharge Information Admission Date: 08/29/2022 Discharge Date 08/31/2022 Primary Care Provider: Celestina Trinidad MD Principal Discharge Diagnosis Ischemic finger ulcer: Present on admission - yes. Secondary Discharge Diagnoses Thromboangiitis obliterans: Present on admission - yes. Osteomyelitis: Present on admission - yes. Osteoarthritis of both knees: Present on admission - yes. Mild recurrent major depression: Present on admission - yes. Mild persistent asthma without complication: Present on admission - yes. Mild persistent asthma: Present on admission - yes. Hyperkeratosis of skin: Present on admission - yes. Hirsutism: Present on admission - yes. Eczema: Present on admission - yes. BMI 50.0-59.9, adult: Present on admission - yes. Asthma: Present on admission - yes. Acquired hypothyroidism: Present on admission - yes. Medications MEDICATION LIST (Selected) Prescriptions Prescribed Aerochamber w/Mask (Medium): See Instructions, # 1 each, Maintenance, Use as directed with albuterol inhaler. Asthma ICD 10 code J45.909, 08/15/19 7:50:00 EST, Compound, 161, cm, 08/12/19 12:43:00 EST, Height Anoro Ellipta 62.5 mcg-25 mcg/inh inhalation powder: 1 puffs, By Mouth, Daily, # 1 each, 6 Refills,Maintenance, 05/11/22 13:00:00 EDT, Powder, [facility], Partial fill upon patient request if the prescription is for a schedule II opioid drug., 1 puffs By Mouth Daily,x30 days, 158, cm, 05/08/22 11... Augmentin 875 mg-125 mg oral tablet: 1 tablet, By Mouth, Every 12 hours, for 6 week(s), # 84 tablet, 0 Refills, Acute 10/12/22 13:28:00 EDT, 08/31/22 13:28:00 EST, Tablet, [facility]/pharmacy #2024, Partialfill upon patient request if the prescription is for a schedule II opioid drug., 157, cm... Compression Stockings: See Instructions, # 2 each, Refills 2, Tot. Refills 2, Maintenance, surgical, calf length 20-30 mm Hg Dx: venous insufficiency, 07/01/22 6:53:00 EST, Compound, 158, cm, 06/09/22 11:21:00 EST, Height, 143, kg, 01/04/21 10:42:00 EDT, Dry Weight FLUoxetine 20 mg oral capsule: See Instructions, TAKE 1 CAPSULE BY MOUTH EVERY DAY, # 90 capsule, Refills 1, Maintenance, 06/13/22 15:26:00 EST, Instructions Replace Required Details, Route to Pharmacy Electronically, [id number], 158, cm, 06/09/22 11:21:00 EST, Height, 143, kg... Flonase 50 mcg/inh nasal spray: See Instructions, 2 sprays Nares twice daily x 1 week, then once daily x 1-2 weeks until symptoms improve, # 16 Gm, 0 Refills, Maintenance, 02/28/21 16:31:00 EDT, [place], [facility]/pharmacy #2024, Partial fill upon patient request if the prescription is for... Splint: See Instructions, # 1 each, Maintenance, left wrist short cock-up splint, 01/08/20 14:28:00EDT, Supply albuterol CFC free 90 mcg/inh inhalation aerosol: 2, puffs, Inhalation, Every 4 hours, PRN, # 18 Gm, Refills 11, Tot. Refills 11, Soft Stop, 04/10/22 15:14:00 EDT, Route to Pharmacy Electronically, [id number], [facility]/pharmacy #2024, 158, cm, 04/10/22 14:56:00 EDT, Height, 143,... amLODIPine 5 mg oral tablet: 1 tablet, By Mouth, Daily, # 30 tablet, 5 Refills, Maintenance, 08/24/22 20:08:00 EST, [id number], 159, cm, 08/21/22 11:38:00 EST, Height, 143, kg, 01/04/21 10:42:00EDT, Dry Weight cilostazol 100 mg oral tablet: 1 tablet, By Mouth, 2 times a day, # 60 tablet, 0 Refills, Maintenance, 08/20/22 11:31:00 EST, [facility] [id number], 159, cm, 08/15/22 11:23:00 EST, Height, 143, kg, 01/04/21 10:42:00 EDT, Dry Weight diclofenac 1% topical gel: See Instructions, APPLY TOPICALLY 4 TIMES A DAY, # 100 Gm, 1 Refills, 09/19/21 12:51:00 EST, [facility]/pharmacy #2024, 25, APPLY TOPICALLY 4 TIMES A DAY, 160.02, cm, 07/25/21 16:20:00 EST, Height, 143, kg, 01/04/21 10:42:00 EDT, Dry Weight docusate sodium 100 mg oral capsule: 100 mg, 1, capsule, By Mouth, 2 times a day, PRN, # 20 capsule, Refills 0, Tot. Refills 0, Maintenance, as needed for constipation, 08/31/22 13:30:00 EST, Route to Pharmacy Electronically, [facility]/pharmacy #2024, Partial fill upon patient request if the p... fluconazole 200 mg oral tablet: 2 tablet = 400 mg, By Mouth, Daily, for 6 week(s), # 84 tablet, 0 Refills, Acute 10/12/22 13:28:00 EDT, 08/31/22 13:28:00 EST, Tablet, [facility]/pharmacy #2025, Partial fillupon patient request if the prescription is for a schedule II opioid drug., 157, cm... gabapentin 300 mg oral capsule: 600 mg, 2, capsule, By Mouth, 3 times a day, # 180 capsule, Refills3, Tot. Refills 3, Maintenance, 08/25/22 22:35:00 EST, Route to Pharmacy Electronically, [facility]/pharmacy #2025, Partial fill upon patient request if the prescription is for a schedule II... levothyroxine 0.137 mg oral tablet: 1 tablet = 137 mcg, By Mouth, Daily, 1 tab on days 1-6, take 2 tabs on day 7, # 102 tablet, 1 Refills, Maintenance, 07/03/22 14:41:00 EST, Tablet, [facility], Partial fill upon patient request if the prescription is for a schedule II opioid dr... meclizine 25 mg oral tablet: See Instructions, PRN Dizziness, 1 tablet By Mouth 3 times a day, # 30tablet, 0 Refills, Maintenance, 05/11/21 13:11:00 EDT, [facility], Partial fill upon patient request if the prescription is for a schedule II opioid drug., 160.02, cm, 10/0... meloxicam 15 mg oral tablet: See Instructions, TAKE 1 TABLET BY MOUTH DAILY WITH FOOD. LABS NEEDED FOR FURTHER REFILLS, # 30 tablet, 3 Refills, Maintenance, 07/17/22 19:56:00 EST, [facility],158, cm, 07/13/22 13:46:00 EST, Height, 143, kg, 01/04/21 10:42:00 EDT, Dry Weight... oxyCODONE 10 mg oral tablet: 1 tablet = 10 mg, By Mouth, Every 6 hours, PRN as needed for pain, for5 days, # 20 tablet, 0 Refills, Acute 09/05/22 13:29:00 EST, 08/31/22 13:29:00 EST, Tablet, [facility], Partial fill upon patient request if the prescription is for a sched... traMADol 50 mg oral tablet: See Instructions, 2 tab po qam and one tab po q pm prn moderate to severe pain, # 81 tablet, 0 Refills, Maintenance, 07/11/22 17:21:00 EST, [facility], 158, cm, 07/07/22 11:19:00 EST, Height, 143, kg, 01/04/21 10:42:00 EDT, Dry Weight Documented Medications Documented acetaminophen 500 mg oral capsule: 2 capsule = 1,000 mg, By Mouth, 2 times a day, 0 Refills, Maintenance, 07/25/21 16:23:00 EST, Partial fill upon patient request if the prescription is for a schedule II opioid drug.. Chief Complaint/Reason for Admission Right Index Finger Ischemic Ulcer Aware of diagnosis: patient. Attending Consultants Stu HENNING, Maninder Moser Allergies Allergic Reactions (Selected) NKA Discharge condition: good Compared to admission: improved Code status: Full Hospital Course Postoperative Events Unexpected Return to the OR: no. Bleeding required re-operation: noMelonie Reeder is a 62F w/ PMH of Thromboangiitis obliterans, asthma, obesity, and hypothyroidism who was directly admitted due to an ongoing non healing right index finger ulcer. She was seen in clinic on 08/25 where she underwent a debridement and bone biopsy which was significant for Canidia and E. fecalis. The area has failed to heal despite wound care and continues to be extremely painful to touch. Given the results of the bone biopsy the decision was made to directly admit her for IV antibiotics aswell as a RUE angiogram. We will consult ID as they initially recommended obtaining the bone biopsy. Will arrange for outpatient RUE angiogram. Per ID, will discharge on PO Augmentin and Fluconazole for 6 weeks. Pt tolerating diet without nausea or vomiting. Pain well controlled. Pt voiding withoutdifficulty. Pt ambulatory to baseline. Pt is seen as ready for discharge home on 08/31/22. PLEASE TAKE 1/2 TABLET (50MG) TWICE DAILY OF CILOSTAZOL WHILE ON ANTIMICROBIALS. Physical Exam Patient is: in no acute distress, alert, awake. Cardiac: RRR. Respiratory: CTA. Abdomen: Abdomen is (soft, non-tender, non-distended), Bowel Sounds positive. Extremities: Right index finger distal phalanx with approximately 1.5 cm ulceration with no signs of necrosis, there is surrounding erythema. Left index finger laceration with sutures in place with no erythema. Vascular Surgical Pulses Left Upper Extremity: Radial palpable, Ulnar palpable. Left Lower Extremity: Dorsalis pedis palpable, Posterior tibial palpable. Right Upper Extremity: Radial palpable, Ulnar palpable. Right Lower Extremity: Dorsalis pedis palpable, Posterior tibial palpable. Discharge Plan Discharge Disposition Discharge: home with VNA. Home Health Face to Face I certify that this patient is under my care and that I or an allowed non- physician practitioner working with me, had a [id number] encounter with the patient on this date: 08/31/2022. The encounter with the patient was in whole, or in part, for the following medical condition, whichis the primary reason for home health care: Ischemic finger ulcer. Nursing: Chronic disease management, Wound care and treatment, Home safety evaluation, Daily moist saline gauze packing to right index finger, cover with DSD. Homebound due to: Inability to leave home without assistance/supervision. Physician Signature: Hui HENNING, Jeannine Moreira . * Manisha Elam: PERFORM Event Display: Patient Education/Instruction Authored Date: [id number] Inpatient Adult Discharge Instructions [address] [address] Name: JORGE ALBERTO SAHU : 1960 Visit: 08/29/2022 17:30:00 Current Date: 08/31/2022 13:47 Account: [id number] Inpatient Adult Discharge Instructions We would like to thank you for allowing us to assist you with your healthcare needs. The following includes patient education materials and information regarding your injury/illness. Our entire staffstrives to provide an excellent experience for our patients and their families. PLEASE ENSURE YOU FOLLOW-UP PER THE INSTRUCTIONS BELOW! ?? YOUR OPINION IS IMPORTANT TO US! Please complete the survey you may receive by mail or email. Your feedback will be used to make improvements to the healthcare experiences of our patients and their families. Surveys are administered by [employer] ?? If further treatment with your primary care physician or another doctor is recommended, it is important for you to keep the appointment. Call your primary care physician or return to the Emergency Department immediately if your condition worsens, fails to improve, or new symptoms develop. If you need to find a doctor, you can call [facility] [facility] for a referral at [phone] or toll free at [phone] or log in to [email or web address].. ?? You can view and manage your care through the patient portal or by using a health care bryan of your choosing. [employer] is a website that allows you to securely view your medical information including your hospital discharge summary, office visit summaries, medications and follow-up visits. You can also request appointments, renew medications, and request access to your medical information using a health care bryan of your choosing, or just ask a question. You can enroll at [email or web address] or register during your next office visit. You have been discharged from [facility], Patient Care Unit: S1. If you have any questions regarding these instructions after you leave, please call us and we will be happy to assist you. [facility] Your Care Team Attending Physician Hui HENNING, Jeannine Moreira Consulting Providers Maninder Peraza MD Discharging Providers Priest AHN, Jacek Castillo Reason for Admission OSTEOMYELITIS Your Diagnosis Ischemic finger ulcer Mild persistent asthma Acquired hypothyroidism Asthma BMI 50.0-59.9, adult Eczema Hirsutism Hyperkeratosis of skin Mild persistent asthma without complication Mild recurrent major depression Osteoarthritis of both knees Thromboangiitis obliterans Osteomyelitis Tests Performed Below is a partial list of the tests performed during your hospitalization. You may have had other tests and procedures not included in this list. Please discuss all test results with your provider. BUN CBC w/ Differential Creatinine Ionized Calcium Lytes Magnesium Level Phosphorus Level PT (INR) PTT Type and Screen Primary Care Provider Celestina Trinidad MD Advance Directive Health Care Proxy on File Yes - Health Care Proxy Discharge Vitals Temperature: 97.5 DegF Height: 157 cm Pulse Rate: 89 bpm Weight: 145 kg Respiratory Rate: 18 br/min Body Mass Index:??58.83 kg/m2??Critical Systolic Blood Pressure: 123 mm Hg Body surface area: 2.51 Diastolic Blood Pressure: 73 mm Hg ?? Oxygen Saturation: 96 % ?? Studies Pending All tests and labs ordered during this hospital stay have been completed unless listed below. Please discuss all pending results with your provider listed above in these instructions. ?? BUN CBC w/ Differential COVID-19 (2019 Novel Coronavirus) PCR Creatinine Electrolytes (Lytes) INR (PT (INR)) Ionized Calcium Magnesium Level PTT Phosphorus Level What to do next Instructions From Your Doctor Discharge Orders Scheduled Follow-Up Appointments Sunday 4:20 PM EST ?? With: Wanda Panchal Where: [facility] Sunday 10:40 AM EST ?? With: Hector Boss MD Where: [facility] [address] [place] [phone]- Sunday 3:40 PM EST ?? With: Maninder Peraza MD Where: [facility] [address] [place] [id number]- You Need to Schedule the Following Appointments Follow Up with??Hui HENNING, Jeannine Moreira When??Within 2 to 3 weeks Why: [facility] will call with angiogram information Where: [address] [place] [phone]- Discharge Medications JORGE ALBERTO SAHU :1960 Visit Date:08/29/2022 Medications: Please continue your medications until treatment is completed or stopped by your provider. Medications not listed below should be discontinued. Discuss any questions related to medications with your provider. What How Much When Why Instructions Next Dose New Amoxicillin-Clavulanate (Augmentin 875 mg-125 mg oral tablet) 1 tab(s) Oral Every 12 hours Duration: 6 week(s) Pickup at [facility]/pharmacy #2024 New Docusate (docusate sodium 100 mg oral capsule) 1 capsule Oral Twice a day as needed for as needed for constipation [facility] Changed Fluconazole (fluconazole 200 mg oral tablet) 2 tab(s) Oral Daily Duration: 6 week(s) [facility] Changed Gabapentin (gabapentin 300 mg oral capsule) 2 capsule Oral 3 times a day Changed Levothyroxine (levothyroxine 0.137 mg oral tablet) 1 tab(s) Oral Daily 1 tab on days 1-6, take 2 tabs on day 7 ?? Changed Oxycodone (oxyCODONE 10 mg oral tablet) 1 tab(s) Oral Every 6 hours as needed for as needed for pain Duration: 5 Days Pickup at [facility]/pharmacy #2024 Unchanged Acetaminophen (acetaminophen 500 mg oral capsule) 2 capsule Oral Twice a day Unchanged Albuterol (albuterol CFC free 90 mcg/ inh inhalation aerosol) 2 puff(s) Inhalation Every 4 hours as needed for Wheezing/Shortness of Breath Mild persistent asthma Unchanged Amlodipine (amLODIPine 5 mg oral tablet) 1 tab(s) Oral Daily Unchanged Cilostazol (cilostazol 100 mg oral tablet) 1 tab(s) Oral Twice a day Unchanged Diclofenac Topical (diclofenac 1% topical gel) See instructions APPLY TOPICALLY 4 TIMES A DAY ?? Unchanged Durable Medical Equipment (Aerochamber w/ Mask (Medium)) See instructions Use as directed with albuterol inhaler. Asthma ICD 10 code J45.909 ?? Unchanged Durable Medical Equipment (Compression Stockings) See instructions surgical, calf length 20-30 mm Hg Dx: venous insufficiency ?? Unchanged Durable Medical Equipment (Splint) See instructions Left wrist pain left wrist short cock-up splint ?? Unchanged Fluoxetine (FLUoxetine 20 mg oral capsule) See instructions TAKE 1 CAPSULE BY MOUTH EVERY DAY ?? Unchanged Fluticasone Nasal (Flonase 50 mcg/ inh nasal spray) See instructions Serous otitis media 2 sprays Nares twice daily x 1 week, then once daily x 1-2 weeks until symptoms improve ?? Unchanged Meclizine (meclizine 25 mg oral tablet) See instructions 1 tablet By Mouth 3 times a day ?? Unchanged Meloxicam (meloxicam 15 mg oral tablet) See instructions TAKE 1 TABLET BY MOUTH DAILY WITH FOOD. LABS NEEDED FOR FURTHER REFILLS ?? Unchanged Tramadol (traMADol 50 mg oral tablet) See instructions 2 tab po qam and one tab po q pm prn moderate to severe pain ?? Unchanged umeclidinium-vilanterol (Anoro Ellipta 62.5 mcg-25 mcg/ inh inhalation powder) 1 puff(s) Oral Daily Duration: 30 Days Pharmacy Information [facility]/pharmacy #2024: [address], [place] [id number] [phone] ?? What How Much When Comments Stop Taking Collagenase Topical (Santyl 250 u/ gm ointment) 1 bryan Topically Daily Stop Taking Doxycycline (doxycycline hyclate 100 mg oral tablet) 1 tab(s) Oral Twice a day Duration: 10 Days Test Results Below is a partial list of the most recent Laboratory test results done prior to this discharge. You may have had other tests and procedures not included in this list. Please discuss all test resultswith your provider. BUN (08/31/2022) ???BUN - 14 mg/dL CBC w/ Differential (08/31/2022) ???WBC - 6.7 k/mm3???RBC - 3.56 m/mm3???Hgb - 10.7 Gm/dL???Hct - 33.4 %???MCV - 93.8 femtoliters???MCH - 30.1 pg???MCHC - 32.0 g/dL???Platelet Count - 319 k/mm3???RDW-SD - 46.7 femtoliters???MPV - 9.2 femtoliters???Nucleated RBC (Automated) - 0.0 #/100 WBC'S???Abs. NRBC - 0.0 k/mm3???Abs. Neut - 3.2 k/mm3???Abs. Lymph - 2.4 k/mm3???Abs. [place] - 0.6 k/mm3???Abs. Eo - 0.3 k/mm3???Abs. Baso - 0.1 k/mm3???Neut % - 48.5 %???Lymph % - 35.4 %???[place] % - 9.3 %???Eos % - 4.9 %???Baso % - 1.0 %???Imm Gran- 0.9 %???Abs. Imm Gran - 0.1 k/mm3 Creatinine (08/31/2022) ???Creatinine-Blood - 0.7 mg/dL???Estimated GFR Creatinine - 97 ML/MIN/1.73 M2 Ionized Calcium (08/31/2022) ???Calcium, Ionized pH Corrected - 1.18 mmol/L Lytes (08/31/2022) ???Sodium - 139 mmol/L???Potassium - 4.3 mmol/L???Chloride - 102 mmol/L???Bicarbonate Level - 26 mmol/L???Anion Gap - 11 Magnesium Level (08/31/2022) ???Magnesium - 1.9 mg/dL Phosphorus Level (08/31/2022) ???Phosphorus - 3.8 mg/dL PT (INR) (08/31/2022) ???INR - 1.0???Protime (PT) - 10.7 seconds PTT (08/31/2022) ???APTT - 25.5 seconds Type and Screen (08/29/2022) ???Blood Type - B Positive???Antibody Screen - Negative Allergies (NKA means No Known Allergies) NKA Problems Active Problems??(17) Acquired hypothyroidism?? Asthma?? BMI 50.0-59.9, adult?? Eczema?? Hirsutism?? Hyperkeratosis of skin?? Ischemic finger?? Ischemic finger ulcer?? knee pain?? Mild persistent asthma without complication?? Mild recurrent major depression?? morbid obesity ( class III)?? Obesity?? Osteoarthritis of both knees?? Osteomyelitis?? Severe obesity?? Thromboangiitis obliterans?? Education Materials Below is the list of Educational Leaflet Providered with your Discharge Instructions. Fluconazole Oral Tablet?? Amoxicillin/Clavulanate Oral Tablet?? Discharge Instructions for Osteomyelitis?? Valuables and Belongings I fully understand and agree that [facility] accepts no responsibility for all my personal property including clothing, toilet articles, radios, jewelry, dentures, hearing aids, rings, money, or any other property that is in my possession or is brought to me after admission. I understand certain valuables may be placed in a hospital safe for a short period of time. I understand that the hospital is not liable for loss or damage due to accident, fire, or other natural occurrence while said property is in the safe. I accept full responsibility for any personal property that I keep with me, and will not hold the hospital responsible in case of loss or disappearance. I acknowledge that i have been encouraged to send valuables and belongings home. ? Other Discharge Information ?? Wound Assessment?? Wound Assessment?? Wound Location I: Fingers, left Wound Type I: Traumatic Wound Wound I, Length: 0.1 cm Wound I, Width: 0.1 cm Wound I, Depth: 0.1 cm Wound I, Present on Admission: Yes ? Pulmonary Rehab Status?? Pulmonary Rehab Discharge Status?? Respiratory Rate: 18 br/min ? Common Emergency Awareness Tips IS IT A STROKE? Act FAST and Check for these signs: FACE Does the face look uneven? ARM Does one arm drift down? SPEECH Does their speech sound strange? TIME Call at any sign of stroke ?? Heart Attack Signs Chest discomfort: Most heart attacks involve discomfort in the center of the chest and lasts more than a few minutes, or goes away and comes back. It can feel like uncomfortable pressure, squeezing, fullness or pain. Discomfort in upper body: Symptoms can include pain or discomfort in one or both arms, back, neck, jaw or stomach. Shortness of breath: With or without discomfort. Other signs: Breaking out in a cold sweat, nausea, or lightheaded. Remember, MINUTES DO MATTER. If you experience any of these heart attack warning signs, call 9-1-1 to get immediate medical attention! ?? Smoking can increase your chances of developing chronic health problems and can cause harmful effects to other family members in your house. If you smoke, you are strongly encouraged to quit. Please call [facility] [employer] [facility] at [phone] or [phone] ([phone]) or log in to [email or web address] for referrals to smoking cessation programs. ?? The National Suicide Prevention Hotline is available 19/02 if you or someone you know needs to find a reason to keep living. By calling 8-529-764-[employer] (3062) you'll be connected to a skilled, trained counselor at a crisis center in your area. INPATIENT DISCHARGE INSTRUCTIONS SIGNATURE PAGE JORGE ALBERTO SAHU [facility]:[id number] Location:[facility] Registration Date and Time:08/29/2022 17:30 EST Primary Care Physician: Vivi HENNING, Celestina Givens, I JORGE ALBERTO SAHU, have received the above patient education materials/instructions and have verbalizedunderstanding. If ambulance or transport services are being used I further acknowledge being given a choice of service. ?? If you need to contact me, please call me at this number: . Patient/Neurological Surgeon Name: Patient/Neurological Surgeon Signature: Relationship to Patient: Witness Name/Signature: Date: * Jacek Bull NP: PERFORM Event Display: Patient Education Leaflets Authored Date: [id number] Fluconazole Oral Tablet ?? [id number] Fluconazole Oral Tablet Brands: Diflucan Uses For treating fungal infections. ?? Instructions This medicine may be taken with or without food. It is very important that you take the medicine at about the same time every day. It will work bestif you do this. Keep the medicine at room temperature. Avoid heat and direct light. Tell your doctor if you have severe or persistent sweating, diarrhea or vomiting. These can increase your risk of a serious side effect. If you forget to take a dose on time, take it as soon as you remember. If it is almost time for thenext dose, do not take the missed dose. Return to your normal schedule. Do not take 2 doses at one time. Drug interactions can change how medicines work or increase risk for side effects. Tell your healthcare providers about all medicines taken. Include prescription and numc-rup-pfpcwnb medicines, vitamins, and herbal medicines. Speak with your doctor or pharmacist before starting or stopping any medicine. Tell your doctor if symptoms do not get better or if they get worse. Keep using this medicine for the full number of days that it is prescribed. Do not stop the medicine even if you start to feel better. It is very important that you follow your doctor's instructions for all blood tests. ?? Cautions Tell your doctor and pharmacist if you ever had an allergic reaction to a medicine. Do not use the medication any more than instructed. Your ability to stay alert or to react quickly may be impaired by this medicine. Do not drive or operate machinery until you know how this medicine will affect you. Tell the doctor or pharmacist if you are , planning to be , or . Women must use reliable forms of control while taking this medicine and for 1 week after stopping to prevent . Do not share this medicine with anyone who has not been prescribed this medicine. ?? Side Effects The following is a list of some common side effects from this medicine. Please speak with your doctor about what you should do if you experience these or other side effects. ??? diarrhea ??? dizziness ??? headaches ??? nausea and vomiting ??? stomach upset or abdominal pain Call your doctor or get medical help right away if you notice any of these more serious side effects: ??? decreased appetite ??? fainting ??? swelling in the neck or throat ??? fast or irregular heart beats ??? signs of liver damage (such as yellowing of eye or skin, dark urine, or unusual tiredness)??? weight loss A few people may have an allergic reaction to this medicine. Symptoms can include difficulty breathing, skin rash, itching, swelling, or severe dizziness. If you notice any of these symptoms, seek medical help quickly. ?? Extra Please speak with your doctor, nurse, or pharmacist if you have any questions about this medicine. ?? [email or web address] IMPORTANT NOTE: This document tells you briefly how to take your medicine, but it does not tell youall there is to know about it. Your doctor or pharmacist may give you other documents about your medicine. Please talk to them if you have any questions. Always follow their advice. There is a more complete description of this medicine available in Kosovan. Scan this code on your smartphone or tablet or use the web address below. You can also ask your pharmacist for a printout. If you have any questions, please ask your pharmacist. The display and use of this drug information is subject to Terms of Use. Copyright(c) 2021 [employer]. ?? [employer]. All rights reserved. This information is not intended as a substitute for professional medical care. Always follow your healthcare professional's instructions. ?? * Jacek Bull NP: PERFORM Event Display: Patient Education Leaflets Authored Date: [id number] Amoxicillin/Clavulanate Oral Tablet ?? [id number] Amoxicillin/Clavulanate Oral Tablet Brands: Augmentin Uses For treating bacterial infection. ?? Instructions Take the medicine with food. Keep the medicine at room temperature. Avoid heat and direct light. It is important that you keep taking each dose of this medicine on time even if you are feeling well. If you forget to take a dose on time, take it as soon as you remember. If it is almost time for thenext dose, do not take the missed dose. Return to your normal schedule. Do not take 2 doses at one time. Tell your doctor and pharmacist about all your medicines. Include prescription and lizt-ryf-xsjwuuztllkhrnkm, vitamins, and herbal medicines. Keep using this medicine for the full number of days that it is prescribed. Do not stop the medicine even if you start to feel better. If you have diabetes and use urine glucose tests, this medicine may cause incorrect results. Pleasecheck with your doctor before making any changes to your diabetes treatment plan. ?? Cautions Tell your doctor and pharmacist if you ever had an allergic reaction to a medicine. Do not use the medication any more than instructed. Please tell your doctor if you have moderate to severe diarrhea while on this medicine. Do not treat the diarrhea with cqma-grw-iblixau diarrhea medicine. Tell the doctor or pharmacist if you are , planning to be , or . Do not start or stop any other medicines without first speaking to your doctor or pharmacist. Do not share this medicine with anyone who has not been prescribed this medicine. ?? Side Effects The following is a list of some common side effects from this medicine. Please speak with your doctor about what you should do if you experience these or other side effects. ??? diarrhea ??? nausea and vomiting ??? stomach upset or abdominal pain Call your doctor or get medical help right away if you notice any of these more serious side effects: ??? severe or persistent abdominal pain ??? severe, watery or bloody diarrhea ??? signs of liver damage (such as yellowing of eye or skin, dark urine, or unusual tiredness) ??? red, burning, or itchyskin ??? yeast infection of mouth ??? vaginal itching or discharge A few people may have an allergic reaction to this medicine. Symptoms can include difficulty breathing, skin rash, itching, swelling, or severe dizziness. If you notice any of these symptoms, seek medical help quickly. ?? Extra Please speak with your doctor, nurse, or pharmacist if you have any questions about this medicine. ?? [email or web address] IMPORTANT NOTE: This document tells you briefly how to take your medicine, but it does not tell youall there is to know about it. Your doctor or pharmacist may give you other documents about your medicine. Please talk to them if you have any questions. Always follow their advice. There is a more complete description of this medicine available in Kosovan. Scan this code on your smartphone or tablet or use the web address below. You can also ask your pharmacist for a printout. If you have any questions, please ask your pharmacist. The display and use of this drug information is subject to Terms of Use. Copyright(c) 2021 [employer] ?? [employer]. All rights reserved. This information is not intended as a substitute for professional medical care. Always follow your healthcare professional's instructions. ?? * Priest AHN, Jacek Castillo: PERFORM Event Display: Patient Education Leaflets Authored Date: [id number] Discharge Instructions for Osteomyelitis ?? 37143 Discharge Instructions for Osteomyelitis You have a condition called osteomyelitis. This is a bone infection caused by bacteria or fungi. Itmay have spread through the blood from one area of your body to the bone. Osteomyelitis is called acute when the infection is new. It's called chronic when you've had it for a longer time. Home care ??? Take your medicine exactly as directed. If you were given antibiotics or antifungal medicine, make sure you finish the prescription???even if you feel better. If you don???t finish the medicine, the infection may return and may make future infections harder??to treat. ??? Be careful not to injure the area where you have the infection. ??? Carefully follow all instructions for takingcare of any wounds. ??? Use a splint, sling, or brace as directed by your healthcare provider. ?? Follow-up care Make a follow-up appointment, or as directed. ?? When to get medical care Call your healthcare provider??if you have any of the following: ??? Increasing pain, redness, swelling, or drainage in the infected area ??? Fever of 100.4?? F??( 38??C) or higher, or as advised by your provider ??? Chills ??? Increasing fatigue or feeling tired ?? Last Reviewed Date: 2021 ?? [employer]. All rights reserved. This information is not intended as a substitute for professional medical care. Always follow your healthcare professional's instructions. ?? Patient Care team information Care Team Personnel Name: Celestina Trinidad MD Position: [facility] Primary Care Physician Member Role: PCP Address: Address: [address] [place] [id number] Name: Hemalatha Lucas RN Position: [facility] RN Member Role: Primary Care Nurse Name: Lauren Mack RN Position: [facility] AMB Nurse Member Role: Primary Care Nurse Name: Madelaine Ruiz RN Position: [facility] RN Member Role: Primary Care Nurse Name: Lora Santiago RN Position: [facility] SN RN Member Role: Primary Care Nurse Name: Mayco Ro RN Position: [facility] RN Member Role: Primary Care Nurse Name: Heydi Potts RN Position: [facility] RN Member Role: Primary Care Nurse Name: Janice Romano LPN Position: [facility] RN Member Role: Primary Care Nurse Name: Nadya Low RN Position: [facility] RN Member Role: Primary Care Nurse Name: Mirna Greenfield RN Position: [facility] RN Member Role: Primary Care Nurse Name: Nessa Bonilla RN Position: [facility] Hospital 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
--- OUTSIDE RECORDS SUMMARY | 2024-06-24 14:08 | XMS_ITS | Continuity of Care Document ---
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 Name Role Phone Patrick Mathur MD Primary Care Physician Encounter [facility] Date(s): 08/27/19 - 12/25/19 [facility] [address] [place] [address]- [facility] Attending Physician: Patrick Mathur MD Allergies, Adverse [...] acel(Tdap) 6 08/13/12 Given 1Result Comment: [facility]# [id number] 2Result Comment: [05/25/2018] [employer] lot number [id number] exp 01/26/2019 [facility] [id number] 3Result Comment: [08/20/2017] [facility] [id number] 4Admin Note: VIM dated 01/29/12 GIVEN TODAY 5Result Comment: [facility]#[id number] 6Admin Note: VIM dated 08/22/11 GIVEN TODAY [...] EVERY 6 HOURS NEEDED FOR WHEEZE, [facility]/pharmacy #2024 Start Date: 05/27/19 Status: Ordered diclofenac 1% topical gel 1 applicator, Topically, 4 times a day, # 100 Gm, 0 Refills, Maintenance, 08/22/19 12:32:00 EST, Gel, [facility]/pharmacy #2024, 161, cm, 08/12/19 12:43:00 EST, Height Start Date: 08/22/19 Status: Ordered FLUoxetine 20 mg oral capsule 20 mg, 1, capsule, By Mouth, Daily, # 30 capsule, Refills 4, Tot. Refills 4, Maintenance, 08/30/19 20:34:00 EST, Route to Pharmacy Electronically, [facility]/pharmacy #2024, replacing 10mg dose, 161, cm, 08/12/19 12:43:00 EST, Height Start Date: 08/30/19 Status: Ordered levothyroxine 125 mcg (0.125 mg) oral tablet 1 tablet = 125 mcg, By Mouth, Daily, # 30 tablet, 5 Refills, Maintenance, 11/11/19 14:50:00 EDT, Tablet, [facility]/pharmacy #2024, 161, cm, 10/07/19 9:57:00 EDT, Height Start Date: 11/11/19 Status: Ordered meloxicam 15 mg oral tablet 1 tablet = 15 mg, By Mouth, Daily, Take w food., # 30 tablet, 2 Refills, Maintenance, 10/06/19 15:04:00 EDT, Tablet, [facility]/pharmacy #2024, Labs needed for further refills, 161, cm, 08/12/19 12:43:00 EST, Height Start Date: 10/06/19 Status: Ordered tiZANidine 2 mg oral tablet 2 mg, 1, tablet, By Mouth, Daily at bedtime, PRN, # 14 tablet, Refills 0, Tot. Refills 0, Maintenance, as needed for muscle spasm, 08/04/19 17:54:00 EST, Route to Pharmacy Electronically, [facility]/pharmacy #5, 161, cm, 08/04/19 14:44:00 EST, Height Start Date: 08/04/19 Stop Date: 08/18/19 Status: Ordered traMADol 50 mg oral tablet 2 tablet = 100 mg, By Mouth, Every 12 hours, as needed for pain masspat checked, # 120 tablet, 2 Refills, Maintenance, 11/04/19 6:31:00 EDT, [facility], 161, cm, 10/07/19 9:57:00 EDT, Height Start Date: 11/04/19 Stop Date: 02/02/20 Status: Ordered zolpidem 10 mg oral tablet 1 tablet = 10 mg, By Mouth, Daily at bedtime, PRN for sleep, for 30 days, masspat check may fill less, # 30 tablet, 3 Refills, Acute 04/17/20 12:28:00 EDT, 12/19/19 12:28:00 EDT, Tablet, [facility]/pharmacy#5, 161, cm, 10/07/19 9:57:00 EDT, Height Start Date: 12/19/19 Stop Date: 04/17/20 Status: Ordered Problem List Condition Effective Dates [...]
--- OUTSIDE RECORDS SUMMARY | 2024-06-24 14:08 | XMS_ITS | Continuity of Care Document ---
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 Name Role Phone Vivi HENNING, Celestina Givens Primary Care Physician Encounter [facility] Date(s): 01/25/24 - 02/24/24 [facility] [address] [place] [address]- Allergies, Adverse Reactions, Alerts No Known Allergies [...] 08/21/22 Given tetanus/diphtheria/pertussis, acel(Tdap) 7 08/13/12 Given COQN-PlV-2nFKZ 12y+ bivalent booster vax 06/14/22 Recorded SARS-CoV-2 mRNA (vugfqcs-sfux-rijgl) vax 02/14/22 Recorded SARS-CoV-2 (COVID-19) mRNA BNT-162b2 vac 05/06/21 Given SARS-CoV-2 (COVID-19) mRNA BNT-162b2 vac 11/04/20 Recorded SARS-CoV-2 (COVID-19) mRNA BNT-162b2 vac 10/14/20 Recorded pneumococcal 23-valent vaccine 8 04/07/19 Given 1Result Comment: screening negative 2Result Comment: [facility]# [id number] 3Result Comment: [05/25/2018] [employer] lot number [id number] exp 01/26/2019 [facility] [id number] 4Result Comment: [08/20/2017] [facility] [id number] 5Admin Note: VIM dated 01/29/12 GIVEN TODAY 6Result Comment: [facility]# [id number] 7Admin Note: VIM dated 08/22/11 GIVEN TODAY 8Result Comment: [facility]#[id number] Medications acetaminophen 500 mg oral capsule 2 [...] 1 Refills, Soft Stop, 12/06/23 17:28:00 EDT, [facility]/pharmacy #5, Partial fill upon patient request [...] 05/17/23 16:45:00 EDT, Route to Pharmacy Electronically, [facility]/pharmacy #2024, Partial fill upon patient request if the presc... Start Date: 05/17/23 Stop Date: 05/17/24 Status: Ordered diclofenac 1% topical gel See Instructions, APPLY TO AFFECTED AREA 4 TIMES A DAY, # 100 Gm, 1 Refills, Maintenance, 11/07/23 7:48:00 EDT, [facility]/pharmacy #2024, 25, APPLY TO AFFECTED AREA 4 TIMES A DAY, 157.5, cm, 10/18/23 15:15:00 EDT, Height, 145.9, kg, 05/22/23 7:39:00 EDT, . Start Date: 11/07/23 Status: Ordered diclofenac 1% topical gel See Instructions, APPLY TO AFFECTED AREA 4 TIMES A DAY. NOT COVERED, # 100 Gm, 1 Refills, Maintenance, 02/01/24 13:44:00 EDT, [id number], 30, APPLY TO AFFECTED AREA 4 TIMES [...] Gm, 0 Refills, Maintenance, 02/28/21 16:31:00 EDT, [place], [facility]/pharmacy #2025, Partial fill upon patient request if the prescription is for... Start Date: 02/28/21 Status: Ordered FLUoxetine 10 mg oral capsule 1, capsule, By Mouth, Daily, INSTR:TO BE TAKEN WITH 20MG CAPSULES TO EQUAL 30MG DAILY, # 90 capsule, Refills 1, Maintenance, 01/25/24 9:11:00 EDT, Route to Pharmacy Electronically, [id number], 157.5, cm, 01/22/24 10:31:00 EDT, Height, 145.9, kg,... Start Date: 01/25/24 Status: Ordered gabapentin 300 mg oral capsule 600 mg, 2, capsule, By Mouth, 3 times a day, # 180 capsule, Refills 3, Tot. Refills 3, Maintenance,08/25/22 22:35:00 EST, Route to Pharmacy Electronically, [facility]/pharmacy #2024, Partial fill upon patient request [...] Refills, Maintenance, 12/28/23 16:17:00 EDT, [facility], 157.5, cm, 10/18/23 15:15:00 EDT, Height, 145.9, kg, 05/22/23 7:39:00 EDT, Dry Weight Start Date: 12/28/23 Status: Ordered meclizine 25 mg oral tablet See Instructions, PRN Dizziness, 1 tablet By Mouth 3 times a day, # 30 tablet, 0 Refills, Maintenance, 02/27/23 10:43:00 EDT, [facility]/pharmacy #2025, Partial fill upon patient request if the prescriptionis for a schedule II opioid drug., 157, cm, 2... Start Date: 02/27/23 Status: Ordered meloxicam 15 mg oral tablet See Instructions, TAKE 1 TABLET BY MOUTH DAILY WITH FOOD., # 30 tablet, 5 Refills, Maintenance, 10/08/23 17:05:00 EDT, [facility], 157.5, cm, 07/13/23 9:57:00 EST, Height, 145.9, kg, 237:39:00 EDT, Dry Weight Start Date: 10/08/23 Status: [...] tablet, 0 Refills, Maintenance, 11/29/23 15:24:00 EDT, [facility]/pharmacy #2025, 157.5, cm, 10/18/23 1... Start Date: [...] bedtime, # 30 tablet, 0 Refills, Maintenance, 02/05/24 8:12:00EDT, [facility], Partial fill upon patient request if the prescription is for a schedule IIopioid drug., 157.5, cm, 01/22/24 10:31:00 EDT, Hei... Start Date: 02/05/24 Status: Ordered Problem List Condition Confirmation Course [...] Code MRI Safety Implantable Status Assigning Authority [id number] Unknown [id number] Unknown 08/26/24 Unknown Unknown Active GS1 Patient Care team information Care Team Personnel Name: Celestina Trinidad MD Position: [facility] Physician - Primary Care Member Role: PCP Address: Address: [address] [place] [address] Name: Hemalatha Lucas RN Position: [facility] RN Member Role: Primary Care Nurse Name: Lauren Mack RN Position: [facility] AMB Nurse Member Role: Primary Care Nurse Name: Madelaine Ruiz RN Position: [facility] RN Member Role: Primary Care Nurse Name: Lora Santiago RN Position: [facility] SN RN Member Role: Primary Care Nurse Name: Mayco Ro RN Position: [facility] RN Member Role: Primary Care Nurse Name: Heydi Potts RN Position: [facility] SN RN Member Role: Primary Care Nurse Name: Janice Romano LPN Position: [facility] RN Member Role: Primary Care Nurse Name: Nadya Low RN Position: [facility] RN Member Role: Primary Care Nurse Name: Mirna Greenfield RN Position: [facility] RN Member Role: Primary Care Nurse Name: Nessa Bonilla RN Position: [facility] Hospital Munitions Factory Worker Member Role: Primary Care Nurse Care Team Related Persons Name: DINESH SARGENT Address: [address] [address] Name: BON DE Address: home [address] [place] [address]
--- OUTSIDE RECORDS SUMMARY | 2024-06-24 14:08 | XMS_ITS | Continuity of Care Document ---
Author Organization [facility] Address [address] [place] [address]- Care Team Providers Care Event Executive Name Role Phone Vivi HENNING, Celestina Givens Primary Care Physician En[place] [facility](s): 05/15/23 - 06/14/23 [facility] [address] [place] [address]- Allergies, Adverse Reactions, Alerts No Known Allergies Immunizations Given and Recorded Vaccine Date Status Refusal Reason tetanus/diphtheria/pertussis, acel(Tdap) 1 08/21/22 Given tetanus/diphtheria/pertussis, acel(Tdap) 2 08/13/12 Given [id number] 12y+ bivalent booster vax 06/14/22 Recorded influenza [...] inactivated 6 07/31/12 Gi hali SARS-CoV-2 mRNA ([id number]-[id number]) vax 02/14/22 Recorded SARS-CoV-2 (COVID-19) mRNA BNT-162b2 vac 05/06/21 Given SARS-CoV-2 (COVID-19) mRNA BNT-162b2 vac 11/04/20 Recorded SARS-CoV-2 (COVID-19) mRNA BNT-162b2 vac 10/14/20 Recorded pneumococcal 23-valent vaccine 7 04/07/19 Given 1Result Comment: [facility]# 27012-402-60 2Admin Note: VIM dated 08/22/11 GIVEN TODAY 3Result Comment: [facility]# [id number] 4Result Comment: [05/25/2018] seqirus lot number [id number] exp 01/26/2019 [facility] [id number] 5Result Comment: [08/20/2017] [facility] [id number] 6Admin Note: VIM dated 01/29/12 GIVEN TODAY 7Result Comment: [facility]#[id number] Medications acetaminophen 500 mg oral capsule 2 [...] Stop, 04/10/2215:14:00 EDT, Route to Pharmacy Electronically, [id number], [facility]/pharmacy #2025, 158, cm, 04/10/22 14:56:00 EDT, Height, 143,... Start Date: 04/10/22 Status: Ordered Anoro Ellipta 62.5 mcg-25 mcg/inh inhalation powder 60 each, 0 Refill(s), INHALE 1 PUFF BY MOUTH DAILY, 0 Refills, 03/14/23 10:58:00 EDT, Partial fill upon patient request if the prescription is for a schedule II opioid drug. Start Date: 03/14/23 Status: Ordered cephalexin monohydrate 500 mg oral tablet 1 tablet = 500 mg, By Mouth, 4 times a day, for 5 days, # 20 tablet, 0 Refills, Acute 06/17/23 15:49:00 EST, 06/12/23 15:49:00 EST, Tablet, [facility]/pharmacy #2024, Partial fill upon patient request if the prescription is for a schedule II opioid drug., 15... Start Date: 06/12/23 Stop Date: 06/17/23 Status: Ordered cilostazol 100 mg oral tablet [...] 05/17/23 16:45:00 EDT, Route to Pharmacy Electronically, [facility]/pharmacy #2024, Partial fill upon patient request if the presc... Start Date: 05/17/23 Stop Date: 05/17/24 Status: Ordered diclofenac 1% topical gel See Instructions, APPLY TOPICALLY 4 TIMES A DAY, # 100 Gm, 1 Refills, Maintenance, 06/05/23 10:25:00 EST, [facility]/pharmacy #2025, 50, APPLY TOPICALLY 4 TIMES A DAY, 157.5, cm, 05/22/23 7:39:00 EDT, Height, 145.9, kg, 05/22/23 7:39:00 EDT, Dry Weight Start Date: 06/05/23 Status: Ordered Flonase 50 mcg/inh nasal spray See Instructions, 2 sprays Nares twice daily x 1 week, then once daily x 1-2 weeks until symptoms improve, # 16 Gm, 0 Refills, Maintenance, 02/28/21 16:31:00 EDT, [place], [facility]/pharmacy #202, Partial fill upon patient request if the prescription is for... Start Date: 02/28/21 Status: Ordered FLUoxetine 10 mg oral capsule 10 mg, 1, capsule, By Mouth, Daily, to be taken with 20mg capsules to equal 30mg daily, # 90 capsule, Refills 1, Tot. Refills 1, Maintenance, 04/03/23 11:25:00 EDT, Route to Pharmacy Electronically, [facility]/pharmacy #2024, Partial fill upon patient reques... Start Date: 04/03/23 Status: Ordered FLUoxetine 20 mg oral capsule 1, capsule, By Mouth, Daily, # 90 capsule, Refills 1, Tot. Refills 1, Maintenance, 04/03/23 11:23:00 EDT, Route to Pharmacy Electronically, [facility]/pharmacy #2024, 157, cm, 03/14/23 11:02:00 EDT, Height,145, kg, 08/29/22 20:13:00 EST, Dry Weight Start Date: 04/03/23 Status: Ordered gabapentin 300 mg oral capsule 600 mg, 2, capsule, By Mouth, 3 times a day, # 180 capsule, Refills 3, Tot. Refills 3, Maintenance,08/25/22 22:35:00 EST, Route to Pharmacy Electronically, [facility]/pharmacy #2024, Partial fill upon patient request [...] See Instructions, TAKE 1 TABLET BY MOUTH 6 DAYS A WEEK AND 2 TABLETS BY MOUTH DAILY 1 DAY PER WEEK,# 96 tablet, 2 Refills, Maintenance, 02/27/23 7:25:00 EDT, [id number], 157, cm, 12/08/22 14:27:00 EDT, Height, 145, kg, 08/29/22 20:13:00 EST, Dry... Start Date: 02/27/23 Status: Ordered meclizine 25 mg oral tablet [...] NEEDED FOR FURTHER REFILLS, # 30 tablet, 1 Refills, Maintenance, 05/01/23 14:45:00 EDT, [facility], 157, cm, 03/14/23 11:02:00 EDT, Height, 145, kg, 08/29/22 20:13:00 EST, Dry Weight Start Date: 05/01/23 Status: Ordered oxyCODONE 5 mg oral tablet 5 mg, 1, tablet, By Mouth, Every 4 hours, PRN, you may filll this prescription for fewer pills. MASSpat reviewed, # 20 tablet, Refills 0, Tot. Refills 0, Maintenance, Pain , Severe, 05/22/23 9:10:00 EDT, Route to Pharmacy Electronically, [facility] Start Date: 05/22/23 Status: Ordered Paxlovid 150 mg-100 mg oral tablet See Instructions, take 300mg (2tabs) of nirmatrelvir + 100mg (1tab) of ritonavir by Mouth 2 times aday for 5 days, # 30 tablet, 0 Refills, Maintenance, 06/01/23 17:10:00 EDT, [facility], Partial fill upon patient request if the prescription i... Start Date: 06/01/23 Status: Ordered Splint See Instructions, # 1 each, Maintenance, left wrist short cock-up splint, 01/08/20 14:28:00 EDT, Supply Start Date: 01/08/20 Status: Ordered Symbicort 80mcg/4.5mcg Inhaler 10 Gm, 0 Refill(s), TAKE 2 PUFFS TWICE A DAY FOR WHEEZING SHORTNESS OF BREATH USE WITH SPACER [place]/THROAT AFTER., Refills 0, 03/14/23 10:59:00 EDT Start Date: 03/14/23 Status: Ordered Symbicort 80mcg/4.5mcg Inhaler 2, puffs, Inhalation, 2 times a day, # 10.2 Gm, Refills 1, Tot. Refills 1, Maintenance, 06/07/23 16:30:00 EST, Aerosol, Route to Pharmacy Electronically, [id number], [facility]/pharmacy #2024, 157.5, cm, 05/22/23 7:39:00 EDT, Height... Start Date: 06/07/23 Status: Ordered traMADol 50 mg oral tablet See Instructions, 2 tab po qam and one tab po q pm prn moderate to severe pain. 28 days. mass pat ok, # 81 tablet, 0 Refills, Maintenance, 05/14/23 16:14:00 EDT, [facility]/pharmacy #2024, 157, cm, 03/14/2311:02:00 EDT, Height, 145, kg, 08/29/22 20:13:00 E... Start Date: 05/14/23 Status: Ordered zolpidem 10 mg oral tablet 1 tablet = 10 mg, By Mouth, Daily at bedtime, PRN for sleep, for 30 days, # 30 tablet, 0 Refills, Acute 07/12/23 11:04:00 EST, 06/12/23 11:04:00 EST, Tablet, [facility]/pharmacy #2024, early refill for travel. Thanks., 157.5, cm, 06/08/23 11:48:00 EST, Heigh... Start Date: 06/12/23 Stop Date: 07/12/23 Status: Ordered Problem List Condition Confirmation Course Effective Dates Status H ealth Status Informant Acquired hypothyroidism Confirmed Active BMI 50.0-59.9, adult Confirmed Active Drug-drug interaction Confirmed Active Eczema Confirmed Active Hirsutism Confirmed Active Ischemic finger ulcer Confirmed Active Hyperkeratosis of skin Confirmed Active Mixed anxiety and depressive disorder 1 Confirmed 07/01/22 Active Moderate persistent asthma 2 Confirmed 07/01/22 Active Obesity Confirmed Active Obstructive sleep apnea on CPAP Confirmed Active Osteoarthritis of both knees Confirmed Active Osteomyelitis Confirmed Active Mild recurrent major depression Confirmed Active Severe obesity Confirmed Active Thromboangiitis obliterans Confirmed Active 1Outside Source Comment: Last Assessment & Plan: Continue outpatient medications. 2Outside Source Comment: Last Assessment & Plan: I will give scheduled Combivent in place of an oral Ellipta. Social History Social History Type Response Smoking [...] Code MRI Safety Implantable Status Assigning Authority [id number] Unknown [id number] Unknown 08/26/24 Unknown Unknown Active GS1 Patient Care team information Care Team Personnel Name: Celestina Trinidad MD Position: [facility] Physician - Primary Care Member Role: PCP Address: Address: [address] [place] [address] Name: Hemalatha Lucas RN Position: [facility] RN Member Role: Primary Care Nurse Name: Lauren Mack RN Position: [facility] AMB Nurse Member Role: Primary Care Nurse Name: Madelaine Ruiz RN Position: [facility] RN Member Role: Primary Care Nurse Name: Lora Santiago RN Position: [facility] RN Member Role: Primary Care Nurse Name: Mayco Ro RN Position: [facility] RN Member Role: Primary Care Nurse Name: Heydi Potts RN Position: [facility] RN Member Role: Primary Care Nurse Name: Janice Romano LPN Position: [facility] RN Member Role: Primary Care Nurse Name: Nadya Low RN Position: [facility] RN Member Role: Primary Care Nurse Name: Mirna Greenfield RN Position: [facility] RN Member Role: Primary Care Nurse Name: Nessa Bonilla RN Position: [facility] Senior Account Executive Member Role: Primary Care Nurse Care Team Related Persons Name: ROSETTADINESH JOHNSON Address: home [address] [id number] Name: BON ED Address: home [address] [address]
--- OUTSIDE RECORDS SUMMARY | 2024-06-24 14:08 | XMS_ITS | Continuity of Care Document ---
Author Organization [facility] Address [address] [place] [address]- Care Team Providers Care Harvest Worker Field Crop Name Role Phone Vivi HENNING, Celestina Givens Primary Care Physician Encounter [facility] Date(s): 09/14/23 - 10/14/23 [facility] [address] [place] [address]- Allergies, Adverse Reactions, Alerts No Known Allergies [...] 08/21/22 Given tetanus/diphtheria/pertussis, acel(Tdap) 7 08/13/12 Given [id number] 12y+ bivalent booster vax 06/14/22 Recorded SARS-CoV-2 mRNA ([id number]-jdso-[id number]) vax 02/14/22 Recorded SARS-CoV-2 (COVID-19) mRNA BNT-162b2 vac 05/06/21 Given SARS-CoV-2 (COVID-19) mRNA BNT-162b2 vac 11/04/20 Recorded SARS-CoV-2 (COVID-19) mRNA BNT-162b2 vac 10/14/20 Recorded pneumococcal 23-valent vaccine 8 04/07/19 Given 1Result Comment: screening negative 2Result Comment: [facility]# [id number] 3Result Comment: [05/25/2018] seq[facility] lot number [id number] exp 01/26/[address] [facility] 15076-744-70 4Result Comment: [08/20/2017] [facility] 20480-617-61 5Admin Note: VIM dated 01/29/12 GIVEN TODAY 6Result Comment: [facility]# [id number] 7Admin Note: VIM dated 08/22/11 GIVEN TODAY 8Result Comment: [facility]#[id number] Medications acetaminophen 500 mg oral capsule 2 [...] EST, Height Start Date: 08/15/19 Status: Ordered cilostazol 100 mg oral tablet [...] 05/17/23 16:45:00 EDT, Route to Pharmacy Electronically, [facility]/pharmacy #2024, Partial fill upon patient request if the presc... Start Date: 05/17/23 Stop Date: 05/17/24 Status: Ordered diclofenac 1% topical gel See Instructions, APPLY TO AFFECTED AREA 4 TIMES A DAY, # 100 Gm, 1 Refills, Maintenance, 09/02/23 8:08:00 EST, [id number], 25, APPLY TO AFFECTED AREA 4 TIMES A DAY, 157.5, cm, 07/13/23 9:57:00 EST, Height, 145.9, kg, 05/22/23 7:39:00 EDT, Dry We... Start Date: 09/02/23 Status: Ordered Dulera 50 mcg-5 mcg/inh inhalation [...] Gm, 0 Refills, Maintenance, 02/28/21 16:31:00 EDT, [place], Partial fill upon patient request if the prescription is for... Start Date: 02/28/21 Status: Ordered FLUoxetine 10 mg oral capsule 10 mg, 1, capsule, By Mouth, Daily, to be taken with 20mg capsules to equal 30mg daily, # 90 capsule, Refills 1, Tot. Refills 1, Maintenance, 07/31/23 19:01:00 EST, Route to Pharmacy Electronically, [facility], Partial fill upon patient reques... Start Date: 07/31/23 Status: Ordered FLUoxetine 20 mg oral capsule 1, capsule, By Mouth, Daily, # 90 capsule, Refills 1, Tot. Refills 1, Maintenance, 07/31/23 19:01:00 EST, Route to Pharmacy Electronically, [facility]/pharmacy #2024, 157.5, cm, 07/13/23 9:57:00 EST, Height, 145.9, kg, 05/22/23 7:39:00 EDT, Dry Weight Start Date: 07/31/23 Status: Ordered gabapentin 300 mg oral capsule 600 mg, 2, capsule, By Mouth, 3 times a day, # 180 capsule, Refills 3, Tot. Refills 3, Maintenance,08/25/22 22:35:00 EST, [facility] Partial fill upon patient request if [...] Daily, # 90 tablet, 0 Refills, Maintenance, 10/12/23 6:42:00 EDT, [facility]/pharmacy #2024, 157.5, cm, 07/13/23 9:57:00 EST, Height, 145.9, kg, 05/22/23 7:39:00 EDT, Dry Weight Start Date: 10/12/23 Status: Ordered meclizine 25 mg oral tablet See Instructions, PRN Dizziness, 1 tablet By Mouth 3 times a day, # 30 tablet, 0 Refills, Maintenance, 02/27/23 10:43:00 EDT, [facility]/pharmacy #2024, Partial fill upon patient request if the prescriptionis for a schedule II opioid drug., 157, cm, ... Start Date: 02/27/23 Status: Ordered meloxicam 15 mg oral tablet See Instructions, TAKE 1 TABLET BY MOUTH DAILY WITH FOOD., # 30 tablet, 5 Refills, Maintenance, 10/08/23 17:05:00 EDT, [facility], 157.5, cm, 07/13/23 9:57:00 EST, Height, 145.9, kg, 237:39:00 EDT, Dry Weight Start Date: 10/08/23 Status: Ordered oxyCODONE 5 mg oral tablet 5 mg, 1, tablet, By Mouth, Every 4 hours, PRN, you may filll this prescription for fewer pills. ARIELluis danielmarija reviewed, # 20 tablet, Refills 0, Tot. Refills 0, Maintenance, Pain , Severe, 09/11/23 12:45:00EST, Route to Pharm[facility] Electronically, [facility] Start Date: 09/11/23 Status: Ordered Splint See Instructions, # 1 each, Maintenance, left wrist short cock-up splint, 01/08/20 14:28:00 EDT, Supply Start Date: 01/08/20 Status: Ordered traMADol 50 mg oral tablet See Instructions, 2 tab po qam and one tab po q pm prn moderate to severe pain. 28 days. ariel merly ok, # 81 tablet, 0 Refills, Maintenance, 10/02/23 12:17:00 EST, [facility], 157.5, cm, 07/13/23 9:57:00 EST, Height, 145.9, kg, 05/22/23 7:39:00... Start Date: 10/02/23 Status: Ordered Vitamin D3 2000 intl units oral capsule 1 capsule = 50 mcg, By Mouth, Daily, # 90 capsule, 1 Refills, Maintenance, 07/15/23 17:38:00 EST, [place], [facility], Partial fill upon patient request if the prescription is for a schedule II opioid drug., 157.5, cm, 07/13/23 9:57:00 EST, He... Start Date: 07/15/23 Status: Ordered zolpidem 10 mg oral tablet 1 tablet = 10 mg, By Mouth, Daily at bedtime, # 30 tablet, 0 Refills, Maintenance, 10/08/23 17:51:00 EDT, [facility], Partial fill upon patient request if the prescription is for a schedule II opioid drug., 157.5, cm, 07/13/23 9:57:00 EST, Hei... Start Date: 10/08/23 Status: Ordered Problem List Condition Confirmation Course [...] Code MRI Safety Implantable Status Assigning Authority [id number] Unknown [id number] Unknown 08/26/24 Unknown Unknown Active GS1 Patient Care team information Care Team Personnel Name: Celestina Trinidad MD Position: [facility] Physician - Primary Care Member Role: PCP Address: Address: [address] [place] [id number] Name: Hemalatha Lucas RN Position: [facility] RN Member Role: Primary Care Nurse Name: Lauren Mack RN Position: [facility] MARY Nurse Member Role: Primary Care Nurse Name: Madelaine Ruiz RN Position: [facility] RN Member Role: Primary Care Nurse Name: Lora Santiago RN Position: [facility] RN Member Role: Primary Care Nurse Name: Mayco Ro RN Position: [facility] RN Member Role: Primary Care Nurse Name: Heydi Potts RN Position: [facility] RN Member Role: Primary Care Nurse Name: Janice Romano LPN Position: [facility] RN Member Role: Primary Care Nurse Name: Nadya Low RN Position: [facility] RN Member Role: Primary Care Nurse Name: Mirna Greenfield RN Position: [facility] RN Member Role: Primary Care Nurse Name: Nessa Bonilla RN Position: [facility] Risk Intern Member Role: Primary Care Nurse Care Team Related Persons Name: DINESH SARGENT Address: home [address] [place] [address] Name: BON DE Address: home [address] [address]
--- OUTSIDE RECORDS SUMMARY | 2024-06-24 14:08 | XMS_ITS | Continuity of Care Document ---
Author Organization [facility] Address [address] [place] [address]- Care Team Providers Care Prison Officer Name Role Phone Florentino AHN, Elder Hannah Primary Care Physician Encounter [facility] Date(s): 11/19/20 - 12/19/20 [facility] [address] [place], [place] [address] Allergies, Adverse Reactions, Alerts Substance Reaction Severity [...] influenza virus vaccine, inactivated 4 07/31/12 Gi hlai pneumococcal 23-valent vaccine 5 04/07/19 Given tetanus/diphtheria/pertussis, acel(Tdap) 6 08/13/12 Given 1Result Comment: [facility]# [id number] 2Result Comment: [05/25/2018] seq[facility] lot number [id number] exp 01/26/2019 [facility] [id number] 3Result Comment: [08/20/2017] [facility] [id number] 4Admin Note: VIM dated 01/29/12 GIVEN TODAY 5Result Comment: [facility]#[id number] 6Admin Note: VIM dated 08/22/11 GIVEN TODAY Medications Aerochamber w/Mask (Medium) See Instructions, # 1 each, Maintenance, Use as directed with albuterol inhaler. Asthma ICD 10 codeJ45.909, 08/15/19 7:50:00 EST, Compound, 161, cm, 08/12/19 12:43:00 EST, Height Start Date: 08/15/19 Status: Ordered albuterol CFC free 90 mcg/inh inhalation aerosol 2, puffs, Inhalation, Every 6 hours, PRN, # 1 each, Refills 2, Tot. Refills 2, Soft Stop, 10/27/20 14:48:00 EDT, Route to Pharmacy Electronically, [id number], [facility]/pharmacy #2024, 160.02, cm, 10/19/20 11:04:00 EDT, Height, 156... Start Date: 10/27/20 Status: Ordered diclofenac 1% topical gel See Instructions, APPLY TOPICALLY 4 TIMES A DAY, # 100 Gm, 1 Refills, 10/27/20 12:37:00 EDT, [facility]/pharmacy #2024, 25, APPLY TOPICALLY 4 TIMES A DAY, 160.02, cm, 10/19/20 11:04:00 EDT, Height, 156.81, kg, 10/19/20 11:04:00 EDT, Dry Weight Start Date: 10/27/20 Status: Ordered FLUoxetine 20 mg oral capsule 20 mg, 1, capsule, By Mouth, Daily, # 30 capsule, Refills 5, Tot. Refills 5, Maintenance, 05/13/20 9:34:00 EDT, Route to Pharmacy Electronically, [facility]/pharmacy #2024, replacing 10mg dose, 161, cm, 05/13/20 8:28:00 EDT, Height Start Date: 05/13/20 Status: Ordered levothyroxine 0.137 mg oral tablet See Instructions, Take 1 tablet by mouth on days 1-6, then take 2 tablets by mouth on day 7, # 121 tablet, 5 Refills, Maintenance, 12/07/20 9:46:00 EDT, [facility]/pharmacy #2024, 160.02, cm, 10/19/20 11:04:00 EDT, Height, 156.81, kg, 10/19/20 11:04:00 EDT,... Start Date: 12/07/20 Status: Ordered meloxicam 15 mg oral tablet 1 tablet, By Mouth, Daily, WITH FOOD., # 30 tablet, 1 Refills, Maintenance, 10/24/20 10:06:00 EDT, [facility] 78[facility], 160.02, cm, 10/19/20 11:04:00 EDT, Height, 156.81, kg, 10/19/20 11:04:00 EDT, Dry Weight Start Date: 10/24/20 Status: Ordered Splint See Instructions, # 1 each, Maintenance, left wrist short cock-up splint, 01/08/20 14:28:00 EDT, Supply Start Date: 01/08/20 Status: Ordered tiZANidine 2 mg oral tablet 2 mg, 1, tablet, By Mouth, Daily at bedtime, PRN, # 14 tablet, Refills 0, Tot. Refills 0, Maintenance, as needed for muscle spasm, 08/04/19 17:54:00 EST, Route to Pharmacy Electronically, [facility]/pharmacy #5, 161, cm, 08/04/19 14:44:00 EST, Height Start Date: 08/04/19 Stop Date: 08/18/19 Status: Ordered traMADol 50 mg oral tablet 2 tablet = 100 mg, By Mouth, Every 12 hours, as needed for pain masspat checked, # 120 tablet, 2 Refills, Maintenance, 09/13/20 16:54:00 EST, [facility]/pharmacy #5, 161, cm, 08/18/20 15:29:00 EST, Height Start Date: 09/13/20 Stop Date: 12/12/20 Status: Ordered zolpidem 10 mg oral tablet 1 tablet = 10 mg, By Mouth, Daily at bedtime, PRN for sleep, for 30 days, masspat check may fill less, # 30 tablet, 3 Refills, Acute 01/08/21 9:34:00 EDT, 09/10/20 9:34:00 EST, Tablet, [facility]/pharmacy #2024, 161, cm, 08/18/20 15:29:00 EST, Height Start Date: 09/10/20 Stop Date: 01/08/21 Status: Ordered zolpidem 10 mg oral tablet 1 tablet = 10 mg, By Mouth, Daily at bedtime, PRN for sleep, for 30 days, masspat check may fill less, # 30 tablet, 3 Refills, Acute 03/19/21 10:02:00 EDT, 11/19/20 10:02:00 EDT, [facility]t, [facility], 160.02, cm, 10/19/20 11:04:00 EDT, Height,... Start Date: 11/19/20 Stop Date: 03/19/21 Status: Ordered Problem List Condition Effective Dates [...]
--- OUTSIDE RECORDS SUMMARY | 2024-06-24 14:08 | XMS_ITS | Continuity of Care Document ---
Author Organization [facility] Address [address] [place] [address]- Care Team Providers Care Shank Faker Name Role Phone Celestina Trinidad MD Primary Care Physician Encounter [facility] [place] Date(s): 01/22/24 - 01/29/24 [facility] [address] [place] [address]- Encounter Diagnosis Chronic back pain(Discharge Diagnosis) - 01/23/24 Attending Physician: Celestina Trinidad MD Allergies, Adverse Reactions, [...] 08/21/22 Given tetanus/diphtheria/pertussis, acel(Tdap) 7 08/13/12 Given [id number] 12y+ bivalent booster vax 06/14/22 Recorded SARS-CoV-2 mRNA (delvedf-kdxp-piliy) vax 02/14/22 Recorded SARS-CoV-2 (COVID-19) mRNA BNT-162b2 vac 05/06/21 Given SARS-CoV-2 (COVID-19) mRNA BNT-162b2 vac 4/8/21 Recorded SARS-CoV-2 (COVID-19) mRNA BNT-162b2 vac 10/14/20 Recorded pneumococcal 23-valent vaccine 8 04/07/19 Given 1Result Comment: screening negative 2Result Comment: [facility]# [id number] 3Result Comment: [05/25/2018] [employer] lot number [id number] exp 01/26/[address] [facility] [id number] 4Result Comment: [08/20/2017] [facility] [id number] 5Admin Note: VIM dated 01/29/12 GIVEN TODAY 6Result Comment: [facility]# [id number] 7Admin Note: VIM dated 08/22/11 GIVEN TODAY 8Result Comment: [facility]#[id number] Medications acetaminophen 500 mg oral capsule 2 [...] 1 Refills, Soft Stop, 12/06/23 17:28:00 EDT, [facility]/pharmacy #2025, Partial fill upon patient request [...] 16:45:00 EDT, Route to Pharmacy Electronically, [facility]/pharmacy #2025, Partial fill upon patient request if the presc... Start Date: 05/17/23 Stop Date: 05/17/24 Status: Ordered diclofenac 1% topical gel See Instructions, APPLY TO AFFECTED AREA 4 TIMES A DAY, # 100 Gm, 1 Refills, Maintenance, 11/07/23 7:48:00 EDT, [facility]/pharmacy #202, 25, APPLY TO AFFECTED AREA 4 TIMES A DAY, 157.5, cm, 10/18/23 15:15:00 EDT, Height, 145.9, kg, 05/22/23 7:39:00 EDT, Start Date: 11/07/23 Status: Ordered Dulera 50 [...] Gm, 0 Refills, Maintenance, 02/28/21 16:31:00 EDT, [place], [facility], Partial fill upon patient request if the prescription is for... Start Date: 02/28/21 Status: Ordered FLUoxetine 10 mg oral capsule 1, capsule, By Mouth, Daily, INSTR:TO BE TAKEN WITH 20MG CAPSULES TO EQUAL 30MG DAILY, # 90 capsule, Refills 1, Maintenance, 01/25/24 9:11:00 EDT, Route to Pharmacy Electronically, [id number], 157.5, cm, 01/22/24 10:31:00 EDT, Height, 145.9, kg,... Start Date: 01/25/24 Status: Ordered gabapentin 300 mg oral capsule 600 mg, 2, capsule, By Mouth, 3 times a day, # 180 capsule, Refills 3, Tot. Refills 3, Maintenance,08/25/22 22:35:00 EST, Route to Pharmacy Electronically, [facility]/pharmacy #2024, Partial fill upon patient request [...] Refills, Maintenance, 12/28/23 16:17:00 EDT, [facility], 157.5, cm, 10/18/23 15:15:00 EDT, Height, 145.9, [...] tablet, 5 Refills, Maintenance, 10/08/23 17:05:00 EDT, [facility]/pharmacy #2024, 157.5, cm, 07/13/23 9:57:00 EST, Height, 145.9, kg, 237:39:00 EDT, Dry Weight Start Date: 10/08/23 Status: Ordered metFORMIN 500 mg oral tablet, extended release 1 tablet = 500 mg, By Mouth, Daily, # 90 tablet, 1 Refills, Maintenance, 01/22/24 11:02:00 EDT, ER Tablet, [facility], Partial fill upon patient [...] Electronically, [facility] Start Date: 01/25/24 Status: Ordered Splint See Instructions, # 1 [...] 0 Refills, Maintenance, 11/29/23 15:24:00 EDT, [facility], 157.5, cm, 10/18/23 1... Start Date: 11/29/23 Status: Ordered traMADol 50 mg oral tablet 1 tablet = 50 mg, By Mouth, Every 4 hours, PRN for pain, max 5 tabs per day, # 140 tablet, 0 Refills, Acute 02/19/24 11:11:00 EDT, 01/22/24 11:08:00 EDT, Tablet, [facility], Partial fill uponpatient request if the prescription is for a schedu... Start Date: 01/22/24 Stop Date: 02/19/24 Status: Ordered Vitamin D3 2000 intl units [...] bedtime, # 30 tablet, 0 Refills, Maintenance, 01/08/24 17:06:00 EDT, [facility], Partial fill upon patient request if the prescription is for a schedule II opioid drug., 157.5, cm, 10/18/23 15:15:00 EDT, He... Start Date: 01/08/24 Status: Ordered Problem List Condition Confirmation Course [...] Last Assessment & Plan: Continue outpatient medications. Diagnosis Diagnosis Type Effective Dates Health Status Cl inical Service Informant Chronic back pain Discharge Diagnosis 6/26/24 Vital Signs Most recent to oldest [Reference Range]: 1 Height 157.5 cm (01/22/24 10:31 AM) Oxygen Saturation [94-100 %] 97 % (01/22/24 10:31 AM) Pulse Rate [55-90 bpm] 68 bpm (01/22/24 10:31 AM) Blood Pressure [90-138/55-84 mm Hg] 128/ 69mm Hg (01/22/24 10:31 AM) Blood pressure sites Arm, left (01/22/24 10:31 AM) Social History Social History Type Response Smoking [...] Code MRI Safety Implantable Status Assigning Authority [id number] Unknown [id number] Unknown 08/26/24 Unknown Unknown Active GS1 Patient Care team information Care Team Personnel Name: Celestina Trinidad MD Position: [facility] Physician - Primary Care Member Role: PCP Address: Address: [address] [place] [address] Name: Hemalatha Lucas RN Position: [facility] RN Member Role: Primary Care Nurse Name: Lauren Mack RN Position: [facility] AMB Nurse Member Role: Primary Care Nurse Name: Madelaine Ruiz RN Position: [facility] RN Member Role: Primary Care Nurse Name: Lora Santiago RN Position: [facility] SN RN Member Role: Primary Care Nurse Name: Mayco Ro RN Position: [facility] RN Member Role: Primary Care Nurse Name: Heydi Potts RN Position: [facility] SN RN Member Role: Primary Care Nurse Name: Janice Romano LPN Position: [facility] RN Member Role: Primary Care Nurse Name: Nadya Low RN Position: [facility] RN Member Role: Primary Care Nurse Name: Mirna Greenfield RN Position: [facility] RN Member Role: Primary Care Nurse Name: Nessa Bonilla RN Position: [facility] Knitting Teacher Member Role: Primary Care Nurse Care Team Related Persons Name: DINESH SARGENT Address: home [address] [place] [address] Name: BON DE Address: home [address] [place] [address]
--- OUTSIDE RECORDS SUMMARY | 2024-06-24 14:08 | XMS_ITS | Continuity of Care Document ---
Author Organization [facility] Address [address] [place] [address]- Care Team Providers Care Typewriter Operator Automatic Name Role Phone Celestina Trinidad MD Primary Care Physician [place] [facility] [place] Date(s): 10/02/23 - 11/01/23 [facility] [address] [place] [address]- Allergies, Adverse Reactions, Alerts No Known Allergies [...] 08/21/22 Given tetanus/diphtheria/pertussis, acel(Tdap) 7 08/13/12 Given [id number] 12y+ bivalent booster vax 06/14/22 Recorded SARS-CoV-2 mRNA (kjhrilx-areg-ixpxq) vax 02/14/22 Recorded SARS-CoV-2 (COVID-19) mRNA BNT-162b2 vac 05/06/21 Given SARS-CoV-2 (COVID-19) mRNA BNT-162b2 vac 11/04/20 Recorded SARS-CoV-2 (COVID-19) mRNA BNT-162b2 vac 10/14/20 Recorded pneumococcal 23-valent vaccine 8 04/07/19 Given 1Result Comment: screening negative 2Result Comment: [facility]# [id number] 3Result Comment: [05/25/2018] [employer] lot number [id number] exp 01/26/2019 [facility] [id number] 4Result Comment: [08/20/2017] [facility] [id number] 5Admin Note: VIM dated 01/29/12 GIVEN TODAY 6Result Comment: [facility][NOTE 3]# [id number] 7Admin Note: VIM dated 08/22/11 GIVEN TODAY 8Result Comment: [facility][NOTE 3]#[id number] Medications acetaminophen 500 mg oral capsule 2 [...] 05/17/23 16:45:00 EDT, Route to Pharmacy Electronically, [facility]/pharmacy #2025, Partial fill upon patient request if the presc... Start Date: 05/17/23 Stop Date: 05/17/24 Status: Ordered diclofenac 1% topical gel See Instructions, APPLY TO AFFECTED AREA 4 TIMES A DAY, # 100 Gm, 1 Refills, Maintenance, 09/02/23 8:08:00 EST, [facility], 25, APPLY TO AFFECTED AREA 4 TIMES [...] Gm, 0 Refills, Maintenance, 02/28/21 16:31:00 EDT, [place], [facility], Partial fill upon patient request if the prescription is for... Start Date: 02/28/21 Status: Ordered FLUoxetine 10 mg oral capsule 10 mg, 1, capsule, By Mouth, Daily, to be taken with 20mg capsules to equal 30mg daily, # 90 capsule, Refills 1, Tot. Refills 1, Maintenance, 07/31/23 19:01:00 EST, Route to [facility]acy Electronically, [facility], Partial fill upon patient reques... Start Date: 07/31/23 Status: Ordered FLUoxetine 20 mg oral capsule 1, capsule, By Mouth, Daily, # 90 capsule, Refills 1, Tot. Refills 1, Maintenance, 07/31/23 19:01:00 EST, [facility], cm, 07/13/23 9:57:00 EST, Height, 145.9, kg, 05/22/23 7:39:00 EDT, Dry Weight Start Date: 07/31/23 Status: Ordered gabapentin 300 mg oral capsule 600 mg, 2, capsule, By Mouth, 3 times a day, # 180 capsule, Refills 3, Tot. Refills 3, Maintenance,08/25/22 22:35:00 EST, [facility] fill upon patient request [...] tablet, 0 Refills, Maintenance, 10/12/23 6:42:00 EDT, [facility]/pharmacy #2024, 157.5, cm, 07/13/23 9:57:00 EST, Height, 145.9, kg, 05/22/23 7:39:00 EDT, Dry Weight Start Date: 10/12/23 Status: Ordered meclizine 25 mg oral tablet See Instructions, PRN Dizziness, 1 tablet By Mouth 3 times a day, # 30 tablet, 0 Refills, Maintenance, 02/27/23 10:43:00 EDT, [facility]/pharmacy #2024, Partial fill upon patient request [...] Daily, # 90 tablet, 1 Refills, Maintenance, 10/24/23 11:39:00 EDT, ER Tablet, [facility], Partial fill upon patient request if the prescription is for a schedule II opioid drug., 157.5, cm, 10/18/23 15:15:00 EDT, H... Start Date: 10/24/23 Status: Ordered oxyCODONE 5 mg oral tablet 5 mg, 1, tablet, By Mouth, Every 4 hours, PRN, you may filll this prescription for fewer pills. Edward reviewed, # 20 tablet, Refills 0, Tot. Refills 0, Maintenance, Pain , Severe, 10/22/23 18:15:00EDT, [facility] to [facility], [facility] Start Date: 10/22/23 Status: Ordered Splint See Instructions, # 1 each, Maintenance, left wrist short cock-up splint, 01/08/20 14:28:00 EDT, Supply Start Date: 01/08/20 Status: Ordered traMADol 50 mg oral tablet See Instructions, 2 tab po qam and one tab po q pm prn moderate to severe pain. 28 days. ariel holliday, # 81 tablet, 0 Refills, Maintenance, 10/02/23 [...] tablet, 0 Refills, Maintenance, 10/08/23 17:51:00 EDT, [facility]/pharmacy #2025, Partial fill upon patient request [...] Code MRI Safety Implantable Status Assigning Authority [id number] [id number] Unknown [id number] Unknown 08/26/24 Unknown Unknown Active GS1 Patient Care team information Care Team Personnel Name: Celestina Trinidad MD Position: [facility] Physician - Primary Care Member Role: PCP Address: Address: [address] [place] [address] Name: Hemalatha Lucas RN Position: [facility] RN Member Role: Primary Care Nurse Name: Lauren Mack RN Position: [facility] AMB Nurse Member Role: Primary Care Nurse Name: Madelaine Ruiz RN Position: [facility] RN Member Role: Primary Care Nurse Name: Lora Santiago RN Position: [facility] SN RN Member Role: Primary Care Nurse Name: Mayco Ro RN Position: [facility] RN Member Role: Primary Care Nurse Name: Heydi Potts RN Position: [facility] SN RN Member Role: Primary Care Nurse Name: Janice Romano LPN Position: [facility] RN Member Role: Primary Care Nurse Name: Nadya Low RN Position: [facility] RN Member Role: Primary Care Nurse Name: Mirna Greenfield RN Position: [facility] RN Member Role: Primary Care Nurse Name: Nessa Bonilla RN Position: [facility] [employer]raft Digester Operator Member Role: Primary Care Nurse Care Team Related Persons Name: ROSETTA DINESH Address: home [address] [place] [address] Name: BON DE Address: [address] [address]
--- OUTSIDE RECORDS SUMMARY | 2024-06-24 14:08 | XMS_ITS | Continuity of Care Document ---
Author Organization [facility] Address [address] [place] [address]- Care Team Providers Care Customer Professional Name Role Phone Noe EXCHANGE TROUBLE SHOOTER, Mónica Graham Primary Care Physician Encounter [facility] Date(s): 07/19/21 - 08/18/21 [facility] [address] [place] [address]- Allergies, Adverse Reactions, Alerts No Known Allergies [...] tetanus/diphtheria/pertussis, acel(Tdap) 6 08/13/12 Given 1Result Comment: [facility]# [id number] 2Result Comment: [05/25/2018] [facility] lot number [id number] exp 01/26/2019 [facility] [id number] 3Result Comment: [08/20/2017] [facility] [id number] 4Admin Note: VIM dated 01/29/12 GIVEN TODAY 5Result Comment: [facility][NOTE 3]#[id number] 6Admin Note: VIM dated 08/22/11 GIVEN TODAY Medications acetaminophen 500 mg oral capsule 2 capsule = 1,000 mg, By Mouth, 2 times a day, 0 Refills, Maintenance, 07/25/21 16:23:00 EST, Partial fill upon patient request if the prescription is for a schedule II opioid drug. Start Date: 07/25/21 Status: Ordered Advair Diskus 250 mcg-50 mcg inhalation powder 1, puffs, Inhalation, 2 times a day, # 60 each, Refills 1, Tot. Refills 1, Maintenance, 07/25/21 16:52:00 EST, Powder, Route to Pharmacy Electronically, [id number], [facility]/pharmacy #2024, 160.02, cm, 07/25/21 16:20:00 EST, Heigh... Start Date: 07/25/21 Status: Ordered Aerochamber w/Mask [...] 07/25/21 16:53:00 EST, Route to Pharmacy Electronically, [id number], [facility], 160.02, cm, 07/25/21 16:20:00 EST, Height, 143... Start Date: 07/25/21 Status: Ordered diclofenac 1% topical gel See Instructions, APPLY TOPICALLY 4 TIMES A DAY, # 100 Gm, 1 Refills, 10/27/20 12:37:00 EDT, [facility], 25, APPLY TOPICALLY 4 TIMES A DAY, 160.02, cm, 10/19/20 11:04:00 EDT, Height, 156.81, kg, 10/19/20 11:04:00 EDT, Dry Weight Start Date: 10/27/20 Status: Ordered Flonase 50 mcg/inh nasal spray See Instructions, 2 sprays Nares twice daily x 1 week, then once daily x 1-2 weeks until symptoms improve, # 16 Gm, 0 Refills, Maintenance, 02/28/21 16:31:00 EDT, [place], [facility]/pharmacy #202, Partial fill upon patient request if the prescription is for... Start Date: 02/28/21 Status: Ordered FLUoxetine 10 mg oral capsule 10 mg, 1, capsule, By Mouth, Daily, Take with 20mg capsule for total of 30mg daily, # 90 capsule, Refills 1, Tot. Refills 1, Maintenance, 05/04/21 16:44:00 EDT, Route to Pharmacy Electronically, [facility]/pharmacy #202, Partial fill upon patient request if... Start Date: 05/04/21 Status: Ordered FLUoxetine 20 mg oral capsule 20 mg, 1, capsule, By Mouth, Daily, Take with Fluoxetine 10mg for a total of 30mg, # 90 capsule, Refills 1, Tot. Refills 1, Maintenance, 05/04/21 16:44:00 EDT, Route to Pharmacy Electronically, [facility]/pharmacy #2024, replacing 10mg dose, 160.02, cm, 08/0... Start Date: 05/04/21 Status: Ordered levothyroxine 0.137 mg oral tablet See Instructions, Take 1 tablet by mouth on days 1-6, then take 2 tablets by mouth on day 7, # 121 tablet, 5 Refills, Maintenance, 12/07/20 9:46:00 EDT, [facility], 160.02, cm, 10/19/20 11:04:00 EDT, Height, 156.81, kg, 10/19/20 11:04:00 EDT,... Start Date: 12/07/20 Status: Ordered meclizine 25 mg oral tablet See Instructions, PRN Dizziness, 1 tablet By Mouth 3 times a day, # 30 tablet, 0 Refills, Maintenance, 05/11/21 13:11:00 EDT, [facility]/pharmacy #202, Partial fill upon patient request if the prescriptionis for a schedule II opioid drug., 160.02, cm, 100... Start Date: 05/11/21 Status: Ordered meloxicam 15 mg oral tablet 1 tablet, By Mouth, Daily, WITH FOOD., # 30 tablet, 0 Refills, [facility], 160.02, cm, 05/06/21 10:09:00 EDT, Height, 143, kg, 01/04/21 10:42:00 EDT, Dry Weight Start Date: 07/07/21 Status: Ordered Splint See Instructions, # 1 each, Maintenance, left wrist short cock-up splint, 01/08/20 14:28:00 EDT, Supply Start Date: 01/08/20 Status: Ordered tiZANidine 2 mg oral tablet 2 mg, 1, tablet, By Mouth, Daily at bedtime, PRN, # 14 tablet, Refills 0, Tot. Refills 0, Maintenance, as needed for muscle spasm, 08/04/19 17:54:00 EST, Route to Pharmacy Electronically, [facility]/pharmacy #2024, 161, cm, 08/04/19 14:44:00 EST, Height Start Date: 08/04/19 Stop Date: 08/18/19 Status: Ordered traMADol 50 mg oral tablet 2 tablet = 100 mg, By Mouth, Every 12 hours, as needed for pain masspat checked, # 112 tablet, 0 Refills, Maintenance, 07/20/21 17:37:00 EST, [facility]/pharmacy #2024, 160.02, cm, 07/13/21 15:00:00 EST, Height, 143, kg, 01/04/21 10:42:00 EDT, Dry Weight Start Date: 07/20/21 Stop Date: 08/17/21 Status: Ordered zolpidem 10 mg oral tablet 1 tablet = 10 mg, By Mouth, Daily at bedtime, PRN for sleep, for 30 days, masspat check may fill less, # 30 tablet, 3 Refills, Acute 09/08/21 13:11:00 EST, 05/11/21 13:11:00 EDT, Tablet, [facility]/pharmacy#202, 160.02, cm, 05/06/21 10:09:00 EDT, Height,... Start Date: 05/11/21 Stop Date: 09/08/21 Status: Ordered Problem List Condition Effective Dates Status Health Status Inform ant Acquired hypothyroidism(Confirmed) Active Asthma(Confirmed) Active BMI 50.0-59.9, adult(Confirmed) Active Eczema(Confirmed) Active Hirsutism(Confirmed) Active Obesity(Confirmed) Active Osteoarthritis of both knees(Confirmed) Active Mild recurrent major depression(Confirmed) Active Social History Social History Type Response Smoking Status Former smoker, quit more than 30 days ago entered on: 07/25/21 Sex
--- OUTSIDE RECORDS SUMMARY | 2024-06-24 14:08 | XMS_ITS | Continuity of Care Document ---
Author Organization [facility] Address [address] [place] [address]- Care Team Providers Care Station Installer And Repairer Name Role Phone Vivi HENNING, Celestina Givens Primary Care Physician Encounter [facility] [place] [facility] Date(s): 06/12/23 - 07/12/23 [facility] [address] [place] [address]- Allergies, Adverse Reactions, Alerts No Known Allergies Immunizations Given and Recorded Vaccine Date Status Refusal Reason tetanus/diphtheria/pertussis, acel(Tdap) 1 08/21/22 Given tetanus/diphtheria/pertussis, acel(Tdap) 2 08/13/12 Given [id number] 12y+ bivalent booster vax 06/14/22 Recorded influenza [...] inactivated 6 07/31/12 Gi hali SARS-CoV-2 mRNA ([id number]) vax 02/14/22 Recorded SARS-CoV-2 (COVID-19) mRNA BNT-162b2 vac 05/06/21 Given SARS-CoV-2 (COVID-19) mRNA BNT-162b2 vac 11/04/20 Recorded SARS-CoV-2 (COVID-19) mRNA BNT-162b2 vac 10/14/20 Recorded pneumococcal 23-valent vaccine 7 04/07/19 Given 1Result Comment: [facility]# [id number] 2Admin Note: VIM dated 08/22/11 GIVEN TODAY 3Result Comment: [facility]# [id number] 4Result Comment: [05/25/2018] [employer] lot number [id number] exp 01/26/2019 [facility] [id number] 5Result Comment: [08/20/2017] [facility] [id number] 6Admin Note: VIM dated 01/29/12 GIVEN TODAY 7Result Comment: [facility]#[id number] Medications acetaminophen 500 mg oral capsule 2 [...] 05/17/23 16:45:00 EDT, Route to Pharmacy Electronically, [facility]/pharmacy #2024, Partial fill upon patient request if the presc... Start Date: 05/17/23 Stop Date: 05/17/24 Status: Ordered diclofenac 1% topical gel See Instructions, APPLY TOPICALLY 4 TIMES A DAY, # 100 Gm, 1 Refills, Maintenance, 06/05/23 10:25:00 EST, [facility], [facility], APPLY TOPICALLY 4 TIMES A DAY, 157.5, cm, 05/22/23 7:39:00 EDT, Height, 145.9, kg, 05/22/23 7:39:00 EDT, Dry Weight Start Date: 06/05/23 Status: Ordered Flonase 50 mcg/inh nasal spray See Instructions, 2 sprays Nares twice daily x 1 week, then once daily x 1-2 weeks until symptoms improve, # 16 Gm, 0 Refills, Maintenance, 02/28/21 16:31:00 EDT, [place], [facility]/pharmacy #2024, Partial fill upon patient request if the prescription is for... Start Date: 02/28/21 Status: Ordered FLUoxetine 10 mg oral capsule 10 mg, 1, capsule, By Mouth, Daily, to be taken with 20mg capsules to equal 30mg daily, # 90 capsule, Refills 1, Tot. Refills 1, Maintenance, 04/03/23 11:25:00 EDT, [facility] to [facility], [facility], Partial fill upon patient reques... Start Date: 04/03/23 Status: Ordered FLUoxetine 20 mg oral capsule 1, capsule, By Mouth, Daily, # 90 capsule, Refills 1, Tot. Refills 1, Maintenance, 04/03/23 11:23:00 EDT, Route to Pharmacy Electronically, [facility]/pharmacy #2024, 157, cm, 03/14/23 11:02:00 EDT, Height,145, kg, 08/29/22 20:13:00 EST, Dry Weight Start Date: 04/03/23 Status: Ordered gabapentin 300 mg oral capsule 600 mg, 2, capsule, By Mouth, 3 times a day, # 180 capsule, Refills 3, Tot. Refills 3, Maintenance,08/25/22 22:35:00 EST, Route to Pharmacy Electronically, [facility]/pharmacy #2025, Partial fill upon patient [...] tablet, 2 Refills, Maintenance, 02/27/23 7:25:00 EDT, [facility] STORE [id number], 157, cm, 12/08/22 14:27:00 EDT, Height, 145, kg, 08/29/22 20:13:00 EST, Dry... Start Date: 02/27/23 Status: Ordered meclizine 25 mg oral tablet See Instructions, PRN Dizziness, 1 tablet By Mouth 3 times a day, # 30 tablet, 0 Refills, Maintenance, 02/27/23 10:43:00 EDT, [facility]/pharmacy #202, Partial fill upon patient request if the prescriptionis for a schedule II opioid drug., 157, cm, ... Start Date: 02/27/23 Status: Ordered meloxicam 15 mg oral tablet See Instructions, TAKE 1 TABLET BY MOUTH DAILY WITH FOOD. LABS NEEDED FOR FURTHER REFILLS, # 30 tablet, 1 Refills, Maintenance, 05/01/23 14:45:00 EDT, [facility]/pharmacy #2025, 157, cm, 03/14/23 11:02:00 EDT, Height, 145, kg, 08/29/22 20:13:00 EST, Dry Weight Start Date: 05/01/23 Status: Ordered oxyCODONE 5 mg oral tablet 5 mg, 1, tablet, By Mouth, Every 4 hours, PRN, you may filll this prescription for fewer pills. Edward reviewed, # 20 tablet, Refills 0, Tot. Refills 0, Maintenance, Pain , Severe, 05/22/23 9:10:00 EDT, Route to Pharmacy Electronically, [facility]/pharmacy... Start Date: 05/22/23 Status: Ordered Splint See Instructions, # 1 each, Maintenance, left wrist short cock-up splint, 01/08/20 14:28:00 EDT, Supply Start Date: 01/08/20 Status: Ordered Symbicort 80mcg/4.5mcg Inhaler 2, puffs, Inhalation, 2 times a day, PRN, use with spacer chamber, rinse mouth and throat after use, may use up to 4 times daily for a week if necessary but notify provider, # 1 each, Refills 11, Tot. Refills 11, Maintenance, 07/04/23 16:07:00 EST,... Start Date: 07/04/23 Status: Ordered traMADol 50 mg oral tablet See Instructions, 2 tab po qam and one tab po q pm prn moderate to severe pain. 28 days. ariel holliday, # 81 tablet, 0 Refills, Maintenance, 07/02/23 16:52:00 EST, [facility], 157.5, cm, 06/26/23 10:22:00 EST, Height, 145.9, kg, 05/22/23 7:39:0... Start Date: 07/02/23 Status: Ordered zolpidem 10 mg oral tablet 1 tablet = 10 mg, By Mouth, Daily at bedtime, # 30 tablet, 0 Refills, Maintenance, 07/10/23 11:57:00 EST, [facility]/pharmacy #2024, Partial fill upon patient request if the prescription is for a schedule II opioid drug., 157.5, cm, 07/04/23 15:33:00 EST, He... Start Date: 07/10/23 Status: Ordered Problem List Condition Confirmation Course Effective Dates Status H ealth Status Informant Acquired hypothyroidism Confirmed Active BMI 50.0-59.9, adult Confirmed Active Drug-drug interaction Confirmed Active Eczema Confirmed Active Hirsutism Confirmed Active Hyperkeratosis of skin Confirmed Active [...] Code MRI Safety Implantable Status Assigning Authority [id number] Unknown [id number] Unknown 08/26/24 Unknown Unknown Active GS1 Patient Care team information Care Team Personnel Name: Celestina Trinidad MD Position: [facility] Physician - Primary Care Member Role: PCP Address: Address: [address] [place] [address] Name: Hemalatha Lucas RN Position: [facility] RN Member Role: Primary Care Nurse Name: Lauren Mack RN Position: [facility] AMB Nurse Member Role: Primary Care Nurse Name: Madelaine Ruiz RN Position: [facility] RN Member Role: Primary Care Nurse Name: Lora Santiago RN Position: [facility] SN RN Member Role: Primary Care Nurse Name: Mayco Ro RN Position: [facility] RN Member Role: Primary Care Nurse Name: Heydi Potts RN Position: [facility] SN RN Member Role: Primary Care Nurse Name: Janice Romano LPN Position: [facility] RN Member Role: Primary Care Nurse Name: Nadya Low RN Position: [facility] RN Member Role: Primary Care Nurse Name: Mirna Greenfield RN Position: [facility] RN Member Role: Primary Care Nurse Name: Nessa Bonilla RN Position: [facility] Hospital Therapy Technician Member Role: Primary Care Nurse Care Team Related Persons Name: ROSETTADINESH AVILA Address: home [address] [place] [address] Name: BON DE Address: home [address] [place] [id number]
--- OUTSIDE RECORDS SUMMARY | 2024-06-24 14:08 | XMS_ITS | Continuity of Care Document ---
Author Organization [facility] Address [address] [place] [address]- Care Team Providers Care Construction Consultant Name Role Phone Celestina Trinidad MD Primary Care Physician [place] [facility] 10/08/23 - 11/07/23 [facility] [address] [place] [address]- Allergies, Adverse Reactions, Alerts No Known Allergies [...] 08/21/22 Given tetanus/diphtheria/pertussis, acel(Tdap) 7 08/13/12 Given [id number] 12y+ bivalent booster vax 06/14/22 Recorded SARS-CoV-2 mRNA (inymicd-vggl-ipwux) vax 02/14/22 Recorded SARS-CoV-2 (COVID-19) mRNA BNT-162b2 vac 05/06/21 Given SARS-CoV-2 (COVID-19) mRNA BNT-162b2 vac 11/04/20 Recorded SARS-CoV-2 (COVID-19) mRNA BNT-162b2 vac 10/14/20 Recorded pneumococcal 23-valent vaccine 8 04/07/19 Given 1Result Comment: screening negative 2Result Comment: [facility]# [id number] 3Result Comment: [05/25/2018] [employer] lot number [id number] exp 01/26/2019 [facility] [id number] 4Result Comment: [08/20/2017] [facility] [id number] 5Admin Note: VIM dated 01/29/12 GIVEN TODAY 6Result Comment: [facility]# [id number] 7Admin Note: VIM dated 08/22/11 GIVEN TODAY 8Result Comment: [facility]#[id number] Medications acetaminophen 500 mg oral capsule 2 [...] Gm, 0 Refills, Maintenance, 02/28/21 16:31:00 EDT, [place], [facility], Partial fill upon patient request [...] 07/31/23 19:01:00 EST, Route to Pharmacy Electronically, [facility]/pharmacy #2024, 157.5, cm, 07/13/23 9:57:00 EST, Height, 145.9, kg, 05/22/23 7:39:00 EDT, Dry Weight Start Date: 07/31/23 Status: Ordered gabapentin 300 mg oral capsule 600 mg, 2, capsule, By Mouth, 3 times a day, # 180 capsule, Refills 3, Tot. Refills 3, Maintenance,08/25/22 22:35:00 EST, [facility] Partial fill upon patient request if [...] tablet, 0 Refills, Maintenance, 10/12/23 6:42:00 EDT, [facility]/pharmacy #2024, 157.5, cm, 07/13/23 9:57:00 EST, Height, 145.9, kg, 05/22/23 7:39:00 EDT, Dry Weight Start Date: 10/12/23 Status: Ordered meclizine 25 mg oral tablet See Instructions, PRN Dizziness, 1 tablet By Mouth 3 times a day, # 30 tablet, 0 Refills, Maintenance, 02/27/23 10:43:00 EDT, [facility]/pharmacy #2024, Partial fill upon patient request if the prescriptionis for a schedule II opioid drug., 157, cm, ... Start Date: 02/27/23 Status: Ordered meloxicam 15 mg oral tablet See Instructions, TAKE 1 TABLET BY MOUTH DAILY WITH FOOD., # 30 tablet, 5 Refills, Maintenance, 10/08/23 17:05:00 EDT, [facility]/pharmacy #2024, 157.5, cm, 07/13/23 9:57:00 EST, Height, 145.9, kg, :39:00 EDT, Dry Weight Start Date: 10/08/23 Status: Ordered metFORMIN 500 mg oral tablet, extended release 1 tablet = 500 mg, By Mouth, Daily, # 90 tablet, 1 Refills, Maintenance, 10/24/23 11:39:00 EDT, ER Tablet, [facility]/pharmacy #2024, Partial fill upon patient request if the prescription is for a schedule II opioid drug., 157.5, cm, 10/18/23 15:15:00 EDT, H... Start Date: 10/24/23 Status: Ordered oxyCODONE 5 mg oral tablet 5 mg, 1, tablet, By Mouth, Every 4 hours, PRN, you may filll this prescription for fewer pills. Edward ochoa, # 20 tablet, Refills 0, Tot. Refills [...] prn moderate to severe pain. 28 days. arile holliday, # 81 tablet, 0 Refills, Maintenance, 11/04/23 9:02:00 EDT, [facility], 157.5, cm, 10/18/23 15:15:00 EDT, Height, 145.9, kg, 05/22/23 7:39:00... Start Date: 11/04/23 Status: Ordered Vitamin D3 2000 intl units oral capsule 1 capsule = 50 mcg, By Mouth, Daily, # 90 capsule, 1 Refills, Maintenance, 07/15/23 17:38:00 EST, Capsule, [facility]/pharmacy #2024, Partial fill upon patient request if the prescription is for a schedule II opioid drug., 157.5, cm, 07/13/23 9:57:00 EST, He... Start Date: 07/15/23 Status: Ordered zolpidem 10 mg oral tablet 1 tablet = 10 mg, By Mouth, Daily at bedtime, # 30 tablet, 0 Refills, Maintenance, 11/05/23 16:28:00 EDT, [facility]/pharmacy #2025, Partial fill upon patient request if the prescription is for a schedule II opioid drug., 157.5, cm, 10/18/23 15:15:00 EDT, He... Start Date: 11/05/23 Status: Ordered Problem List Condition Confirmation Course [...] Code MRI Safety Implantable Status Assigning Authority [id number] Unknown [id number] Unknown 08/26/24 Unknown Unknown Active GS1 Patient Care team information Care Team Personnel Name: Celestina Trinidad MD Position: S Physician - Primary Care Member Role: PCP Address: Address: [address] [place] [address] Name: Hemalatha Lucas RN Position: [facility] RN Member Role: Primary Care Nurse Name: Lauren Mack RN Position: [facility] AMB Nurse Member Role: Primary Care Nurse Name: Madelaine Ruiz RN Position: [facility] RN Member Role: Primary Care Nurse Name: Lora Santiago RN Position: [facility] SN RN Member Role: Primary Care Nurse Name: Mayco Ro RN Position: [facility] RN Member Role: Primary Care Nurse Name: Heydi Potts RN Position: [facility] SN RN Member Role: Primary Care Nurse Name: Janice Romano LPN Position: [facility] RN Member Role: Primary Care Nurse Name: Nadya Low RN Position: [facility] RN Member Role: Primary Care Nurse Name: Mirna Greenfield RN Position: [facility] RN Member Role: Primary Care Nurse Name: Nessa Bonilla RN Position: [facility] Final Inspector Truck Trailer Member Role: Primary Care Nurse Care Team Related Persons Name: DINESH SARGENT Address: home [address] [place] [address] Name: BON DE Address: home [address] [place] [address]
--- OUTSIDE RECORDS SUMMARY | 2024-06-24 14:08 | XMS_ITS | Continuity of Care Document ---
Author Organization [facility] Address [address] [place] [address]- Care Team Providers Care Poly Operator Name Role Phone Elder Good NP Primary Care Physician Encounter [facility] Date(s): 09/24/20 - 10/01/20 [facility] [address] [place] [address]- Encounter Diagnosis Low back pain(Discharge Diagnosis) - 09/26/20 Attending Physician: Elder Good NP Allergies, Adverse [...] tetanus/diphtheria/pertussis, acel(Tdap) 6 08/13/12 Given 1Result Comment: [facility]# [id number] 2Result Comment: [05/25/2018] [facility] lot number [id number] exp 01/26/2019 [facility] [id number] 3Result Comment: [08/20/2017] [facility] [id number] 4Admin Note: VIM dated 01/29/12 GIVEN TODAY 5Result Comment: [facility]#[id number] 6Admin Note: VIM dated 08/22/11 GIVEN TODAY [...] PUFFS EVERY 6 HOURS NEEDED FOR WHEEZE, [facility]/pharmacy #2024 Start Date: 05/27/19 Status: Ordered diclofenac 1% topical gel See Instructions, APPLY TOPICALLY 4 TIMES A DAY, # 100 Gm, 0 Refills, Maintenance, [facility], APPLY TOPICALLY 4 TIMES A DAY, 161, cm, 06/08/20 13:48:00 EST, Height Start Date: 07/12/20 Status: Ordered FLUoxetine 20 mg oral capsule 20 mg, 1, capsule, By Mouth, Daily, # 30 capsule, Refills 5, Tot. Refills 5, Maintenance, 05/13/20 9:34:00 EDT, Route to Pharmacy Electronically, [facility]/pharmacy #2024, replacing 10mg dose, 161, cm, 05/13/20 8:28:00 EDT, Height Start Date: 05/13/20 Status: Ordered levothyroxine 0.137 mg oral tablet See Instructions, Take 1 tablet by mouth on days 1-6, then take 2 tablets by mouth on day 7, # 121 tablet, 1 Refills, Maintenance, 08/31/20 7:32:00 EST, [facility]/pharmacy #2024, 161, cm, 08/18/20 15:29:00EST, Height Start Date: 08/31/20 Status: Ordered meloxicam 15 mg oral tablet 1 tablet, By Mouth, Daily, WITH FOOD., # 30 tablet, 1 Refills, Maintenance, 08/30/20 7:37:00 EST, [facility], 161, cm, 08/18/20 15:29:00 EST, Height Start Date: 08/30/20 Status: Ordered Splint See Instructions, # 1 each, Maintenance, left wrist short cock-up splint, 01/08/20 14:28:00 EDT, Supply Start Date: 01/08/20 Status: Ordered tiZANidine 2 mg oral tablet 2 mg, 1, tablet, By Mouth, Daily at bedtime, PRN, # 14 tablet, Refills 0, Tot. Refills 0, Maintenance, as needed for muscle spasm, 08/04/19 17:54:00 EST, Route to Pharmacy Electronically, [facility]/pharmacy #2025, 161, cm, 08/04/19 14:44:00 EST, Height Start Date: 08/04/19 Stop Date: 08/18/19 Status: Ordered traMADol 50 mg oral tablet 2 tablet = 100 mg, By Mouth, Every 12 hours, for 30 days, as needed for pain masspat checked, # 120tablet, 2 Refills, Hard Stop 11/15/20 16:20:00 EDT, 08/17/20 16:20:00 EST, [facility]/pharmacy #5, 161,cm, 06/08/20 13:48:00 EST, Height Start Date: 08/17/20 Stop Date: 11/15/20 Status: Ordered traMADol 50 mg oral tablet 2 tablet = 100 mg, By Mouth, Every 12 hours, as needed for pain masspat checked, # 120 tablet, 2 Refills, Maintenance, 09/13/20 16:54:00 EST, [facility], 161, cm, 08/18/20 15:29:00 EST, Height Start Date: 09/13/20 Stop Date: 12/12/20 Status: Ordered zolpidem 10 mg oral tablet 1 tablet = 10 mg, By Mouth, Daily at bedtime, PRN for sleep, for 30 days, masspat check may fill less, # 30 tablet, 3 Refills, Acute 01/14/21 9:22:00 EDT, 09/16/20 9:22:00 EST, Tablet, [facility], 161, cm, 08/18/20 15:29:00 EST, Height Start Date: 09/16/20 Stop Date: 01/14/21 Status: Ordered zolpidem 10 mg oral tablet [...] Service Informant Low back pain Discharge Diagnosis 09/26/20 Social History Social History Type Response Smoking Status Current every day sm sultana; Tobacco user in household: No; Type: Cigarettes; Tobacco use times per day: 1/2 ppd; entered on: 07/08/15 Sex
--- OUTSIDE RECORDS SUMMARY | 2024-06-24 14:08 | XMS_ITS | Continuity of Care Document ---
Author Organization [facility] Address [address] [place] [address]- Care Team Providers Care Target Man Name Role Phone Yolanda AHN, Padmaja Heard Primary Care Physician Encounter [facility] [place] [facility] Date(s): 04/10/22 - 05/10/22 [facility] [address] [place] [address]- Attending Physician: Calixto Beltran Admitting Physician: AdmCalixto hernandez Referring Physician: [id number] Allergies, Adverse Reactions, Alerts No Known Allergies [...] tetanus/diphtheria/pertussis, acel(Tdap) 6 08/13/12 Given 1Result Comment: [facility]# [id number] 2Result Comment: [05/25/2018] [facility] lot number [id number] exp 01/26/2019 [facility] [id number] 3Result Comment: [08/20/2017] [facility] [id number] 4Admin Note: VIM dated 01/29/12 GIVEN TODAY 5Result Comment: [facility]#[id number] 6Admin Note: VIM dated 08/22/11 GIVEN TODAY [...] Stop, 04/10/2215:14:00 EDT, Route to Pharmacy Electronically, [id number], [facility]/pharmacy #2025, 158, cm, 04/10/22 14:56:00 EDT, Height, 143,... Start Date: 04/10/22 Status: Ordered Anoro Ellipta 62.5 mcg-25 mcg/inh inhalation powder 1 puffs, By Mouth, Daily, # 1 each, 6 Refills, Maintenance, 04/10/22 15:12:00 EDT, Powder, [facility], Partial fill upon patient request if the prescription is for a schedule II opioid drug.,1 puffs By Mouth Daily,x30 days, 158, cm, 04/10/22... Start Date: 04/10/22 Stop Date: 11/06/22 Status: Ordered Compression Stockings See Instructions, # 2 each, Refills 2, Tot. Refills 2, Maintenance, surgical, calf length 20-30 mm Hg Dx: venous insufficiency, 11/26/19 14:34:00 EDT, Compound Start Date: 11/26/19 Status: Ordered diclofenac 1% topical gel See Instructions, APPLY TOPICALLY 4 TIMES A DAY, # 100 Gm, 1 Refills, 09/19/21 12:51:00 EST, [facility]/pharmacy #2025, 25, APPLY TOPICALLY 4 TIMES A DAY, 160.02, cm, 07/25/21 16:20:00 EST, Height, 143, kg,01/04/21 10:42:00 EDT, Dry Weight Start Date: 09/19/21 Status: Ordered Flonase 50 mcg/inh nasal spray See Instructions, 2 sprays Nares twice daily x 1 week, then once daily x 1-2 weeks until symptoms improve, # 16 Gm, 0 Refills, Maintenance, 02/28/21 16:31:00 EDT, [place], [facility]/pharmacy #202, Partial fill upon patient request if the prescription is for... Start Date: 02/28/21 Status: Ordered FLUoxetine 10 mg oral capsule 10 mg, 1, capsule, By Mouth, Daily, Take with 20mg capsule for total of 30mg daily, # 90 capsule, Refills 1, Tot. Refills 1, Maintenance, 04/11/22 14:55:00 EDT, Route to Pharmacy Electronically, [facility], Partial fill upon patient request if t... Start Date: 04/11/22 Status: Ordered levothyroxine 0.137 mg oral tablet See Instructions, TAKE 1 TABLET BY MOUTH ON DAYS 1-6, THEN TAKE 2 TABLETS BY MOUTH ON DAY 7, # 96 tablet, 1 Refills, [facility] STORE 25323, 160.02, cm, 10/04/21 10:38:00 EST, Height, 143, kg, 01/04/21 10:42:00 EDT, Dry Weight Start Date: 11/08/21 Status: Ordered LORazepam 0.5 mg oral tablet 1 tablet = 0.5 mg, By Mouth, 2 times a day, PRN as needed for anxiety, take 60 minutes prior to flying; may repeat 30 min prior to fllying if necessary, # 10 tablet, 0 Refills, Acute 06/16/22 16:47:00 EST, 04/10/22 16:47:00 EDT, Tablet, [facility]/pharmacy #... Start Date: 04/10/22 Stop Date: 06/16/22 Status: Ordered meclizine 25 mg oral tablet See Instructions, PRN Dizziness, 1 tablet By Mouth 3 times a day, # 30 tablet, 0 Refills, Maintenance, 05/11/21 13:11:00 EDT, [facility]/pharmacy #2025, Partial fill upon patient request if the prescriptionis for a schedule II opioid drug., 160.02, cm, 10/0... Start Date: 05/11/21 Status: Ordered meloxicam 15 mg oral tablet See Instructions, TAKE 1 TABLET BY MOUTH DAILY WITH FOOD, # 30 tablet, 0 Refills, Maintenance, 04/11/22 14:55:00 EDT, [facility], Labs needed for further refills., 158, cm, 04/10/22 14:56:00 EDT, Height, 143, kg, 01/04/21 10:42:00 EDT, Dry Weight Start Date: 04/11/22 Status: Ordered Splint See Instructions, # 1 each, Maintenance, left wrist short cock-up splint, 01/08/20 14:28:00 EDT, Supply Start Date: 01/08/20 Status: Ordered traMADol 50 mg oral tablet See Instructions, 2 tab po qam and one tab po q pm prn moderate to severe pain, # 81 tablet, 0 Refills, Maintenance, 04/11/22 14:55:00 EDT, [facility], 158, cm, 04/10/22 14:56:00 EDT, Height, 143, kg, 01/04/21 10:42:00 EDT, Dry Weight Start Date: 04/11/22 Status: Ordered zolpidem 10 mg oral tablet 1 tablet = 10 mg, By Mouth, Daily at bedtime, PRN for sleep, for 30 days, masspat check may fill less, # 30 tablet, 2 Refills, Acute 07/19/22 9:22:00 EST, 04/20/22 9:22:00 EDT, Tablet, [facility], 158, cm, 04/10/22 14:56:00 EDT, Height, 143, kg... Start Date: 04/20/22 Stop Date: 07/19/22 Status: Ordered zolpidem 10 mg oral tablet 1 tablet = 10 mg, By Mouth, Daily at bedtime, PRN for sleep, for 30 days, masspat check may fill less, # 30 tablet, 3 Refills, Acute 07/19/22 13:40:00 EST, 03/21/22 13:40:00 EDT, Tablet, [facility], 158, cm, 03/02/22 11:38:00 EDT, Height, 143... Start Date: 03/21/22 Stop Date: 07/19/22 Status: Ordered Problem List Condition Confirmation Course Effective Dates Status H ealth Status Informant Acquired hypothyroidism Confirmed Active Asthma Confirmed Active BMI 50.0-59.9, adult Confirmed Active Eczema Confirmed Active Hirsutism Confirmed Active Hyperkeratosis of skin Confirmed Active Obesity Confirmed Active Osteoarthritis of both knees Confirmed Active Mild recurrent major depression Confirmed Active Mild persistent asthma without complication Confirmed Active Social History Social History Type Response Smoking Status Former smoker, quit more than 30 days ago; Other: smoked up to pack a day x 25 years; entered on: 11/14/21 Sex Patient Care team information Personnel Name: Padmaja Guerrero NP Address: Address: [address] [place] [address]
--- OUTSIDE RECORDS SUMMARY | 2024-06-24 14:08 | XMS_ITS | Continuity of Care Document ---
Author Organization [facility] Address [address] [place] [address]- Care Team Providers Care Manager Voice Name Role Phone Noe AHN, Mónica Graham Primary Care Physician [facility]): [facility] - 08/12/21 [facility] [address] [place] [address]- Attending Physician: Admdavid, Calixto Admitting Physician: Admtr, [id number] Referring Physician: Admtr, Ar8 Allergies, Adverse Reactions, Alerts No Known Allergies [...] Given 1Result Comment: [facility]# [id number] 2Result Comment: [05/25/2018] [facility] lot number [id number] exp 01/26/2019 [facility] [id number] 3Result Comment: [08/20/2017] [facility] [id number] 4Admin Note: VIM dated 01/29/12 GIVEN TODAY 5Result Comment: [facility]#[id number] 6Admin Note: VIM dated 08/22/11 GIVEN TODAY [...] 16:52:00 EST, Powder, Route to Pharmacy Electronically, [id number], [facility]/pharmacy #5, 160.02, cm, 07/25/21 16:20:00 EST, Heigh... Start [...] 07/25/21 16:53:00 EST, Route to Pharmacy Electronically, [id number], [facility]/pharmacy #5, 160.02, cm, 07/25/21 16:20:00 EST, Height, 143... Start Date: 07/25/21 Status: Ordered diclofenac 1% topical gel See Instructions, APPLY TOPICALLY 4 TIMES A DAY, # 100 Gm, 1 Refills, 10/27/20 12:37:00 EDT, [facility]/pharmacy #2024, 25, APPLY TOPICALLY 4 TIMES A DAY, 160.02, cm, 10/19/20 11:04:00 EDT, Height, 156.81, kg, 10/19/20 11:04:00 EDT, Dry Weight Start Date: 10/27/20 Status: Ordered Flonase 50 mcg/inh nasal spray See Instructions, 2 sprays Nares twice daily x 1 week, then once daily x 1-2 weeks until symptoms improve, # 16 Gm, 0 Refills, Maintenance, 02/28/21 16:31:00 EDT, [place], [facility]/pharmacy #2024, Partial fill upon patient request if the prescription is for... Start Date: 02/28/21 Status: Ordered FLUoxetine 10 mg oral capsule 10 mg, 1, capsule, By Mouth, Daily, Take with 20mg capsule for total of 30mg daily, # 90 capsule, Refills 1, Tot. Refills 1, Maintenance, 05/04/21 16:44:00 EDT, Route to Pharmacy Electronically, [facility]/pharmacy #2024, Partial fill upon patient request if... Start Date: 05/04/21 Status: Ordered FLUoxetine 20 mg oral capsule 20 mg, 1, capsule, By Mouth, Daily, Take with Fluoxetine 10mg for a total of 30mg, # 90 capsule, Refills 1, Tot. Refills 1, Maintenance, 05/04/21 16:44:00 EDT, Route to Pharmacy Electronically, [facility]/pharmacy #2024, replacing 10mg dose, 160.02, cm, 08/0... Start Date: 05/04/21 Status: Ordered levothyroxine 0.137 mg oral tablet See Instructions, Take 1 tablet by mouth on days 1-6, then take 2 tablets by mouth on day 7, # 121 tablet, 5 Refills, Maintenance, 12/07/20 9:46:00 EDT, [facility]/pharmacy #202, 160.02, cm, 10/19/20 11:04:00 EDT, Height, 156.81, kg, 10/19/20 11:04:00 EDT,... Start Date: 12/07/20 Status: Ordered meclizine 25 mg oral tablet See Instructions, PRN Dizziness, 1 tablet By Mouth 3 times a day, # 30 tablet, 0 Refills, Maintenance, 05/11/21 13:11:00 EDT, [facility]/pharmacy #202, Partial fill upon patient request if the prescriptionis for a schedule II opioid drug., 160.02, cm, ... Start Date: 05/11/21 Status: Ordered meloxicam 15 mg oral tablet 1 tablet, By Mouth, Daily, WITH FOOD., # 30 tablet, 0 Refills, [facility], 160.02, cm, 05/06/21 10:09:00 EDT, Height, 143, [...] tablet, 0 Refills, Maintenance, 07/20/21 17:37:00 EST, [facility]24, 160.02, cm, 07/13/21 15:00:00 EST, Height, 143, kg, 01/04/21 10:42:00 EDT, Dry Weight Start Date: 07/20/21 Stop Date: 08/17/21 Status: Ordered zolpidem 10 mg oral tablet 1 tablet = 10 mg, By Mouth, Daily at bedtime, PRN for sleep, for 30 days, masspat check may fill less, # 30 tablet, 3 Refills, Acute 09/08/21 13:11:00 EST, 05/11/21 13:11:00 EDT, Tablet, [facility], 160.02, cm, 05/06/21 10:09:00 EDT, Height,... Start [...]
--- OUTSIDE RECORDS SUMMARY | 2024-06-24 14:08 | XMS_ITS | Continuity of Care Document ---
Author Organization [facility] Address [address] [place] [address]- Care Team Providers Care Research Software Engineer Name Role Phone Florentino AHN, Elder Hannah Primary Care Physician [facility] Date[facility]): 08[facility]18/20 - 09/17/20 [facility] [address] [place] [address]- Allergies, Adverse Reactions, Alerts Substance Reaction Severity [...] 6 08/13/12 Given 1Result Comment: [facility]# [id number] 2Result Comment: [05/25/2018] [facility] lot number [id number] exp 01/26/2019 [facility] [id number] 3Result Comment: [08/20/2017] [facility] [id number] 4Admin Note: VIM dated 01/29/12 GIVEN TODAY 5Result Comment: [facility]#[id number] 6Admin Note: VIM dated 08/22/11 GIVEN TODAY [...] EVERY 6 HOURS NEEDED FOR WHEEZE, [facility]/pharmacy #2024 Start Date: 05/27/19 Status: Ordered diclofenac 1% topical gel See Instructions, APPLY TOPICALLY 4 TIMES A DAY, # 100 Gm, 0 Refills, Maintenance, [facility],25, APPLY TOPICALLY 4 TIMES A DAY, 161, cm, 06/08/20 13:48:00 EST, Height Start Date: 07/12/20 Status: Ordered FLUoxetine 20 mg oral capsule 20 mg, 1, capsule, By Mouth, Daily, # 30 capsule, Refills 5, Tot. Refills 5, Maintenance, 05/13/20 9:34:00 EDT, Route to Pharmacy Electronically, [facility]/pharmacy #2024, replacing 10mg dose, 161, cm, 05/13/20 8:28:00 EDT, Height Start Date: 05/13/20 Status: Ordered levothyroxine 0.137 mg oral tablet See Instructions, Take 1 tablet by mouth on days 1-6, then take 2 tablets by mouth on day 7, # 121 tablet, 1 Refills, Maintenance, 08/31/20 7:32:00 EST, [facility]/pharmacy #2024, 161, cm, 08/18/20 15:29:00EST, Height Start Date: 08/31/20 Status: Ordered meloxicam 15 mg oral tablet 1 tablet, By Mouth, Daily, WITH FOOD., # 30 tablet, 1 Refills, Maintenance, 08/30/20 7:37:00 EST, [facility] STORE [facility]99, 161, cm, 08/18/20 15:29:00 EST, Height Start [...] 17:54:00 EST, Route to Pharmacy Electronically, [facility]/pharmacy #5, 161, cm, 08/04/19 14:44:00 EST, Height Start Date: 08/04/19 Stop Date: 08/18/19 Status: Ordered traMADol 50 mg oral tablet 2 tablet = 100 mg, By Mouth, Every 12 hours, for 30 days, as needed for pain masspat checked, # 120tablet, 2 Refills, Hard Stop 11/15/20 16:20:00 EDT, 08/17/20 16:20:00 EST, [facility]/pharmacy #5, 161,cm, 06/08/20 13:48:00 EST, Height Start Date: 08/17/20 Stop Date: 11/15/20 Status: Ordered traMADol 50 mg oral tablet 2 tablet = 100 mg, By Mouth, Every 12 hours, as needed for pain masspat checked, # 120 tablet, 2 Refills, Maintenance, 09/13/20 16:54:00 EST, [facility]/pharmacy #5, 161, cm, 08/18/20 15:29:00 EST, Height Start Date: 09/13/20 Stop Date: 12/12/20 Status: Ordered zolpidem 10 mg oral tablet 1 tablet = 10 mg, By Mouth, Daily at bedtime, PRN for sleep, for 30 days, masspat check may fill less, # 30 tablet, 3 Refills, Acute 01/14/21 9:22:00 EDT, 09/16/20 9:22:00 EST, Tablet, [facility]/pharmacy #5, 161, cm, 08/18/20 15:29:00 EST, Height Start Date: 09/16/20 Stop Date: 01/14/21 Status: Ordered zolpidem 10 mg oral tablet 1 tablet = 10 mg, By Mouth, Daily at bedtime, PRN for sleep, for 30 days, masspat check may fill less, # 30 tablet, 3 Refills, Acute 01/08/21 9:34:00 EDT, 09/10/20 9:34:00 EST, Tablet, [facility]/pharmacy #5, 161, cm, 08/18/20 15:29:00 [...]
--- OUTSIDE RECORDS SUMMARY | 2024-06-24 14:08 | XMS_ITS | Continuity of Care Document ---
Author Organization [facility] Address [address] [place] [address]- Care Team Providers Care Kaiawhina Kohanga Reo Name Role Phone Vivi HENNING, Celestina Givens Primary Care Physician [facility] 12[facility]22 - 01/26/23 [facility] [address] [place] [address]- Allergies, Adverse Reactions, Alerts No Known Allergies Immunizations Given and Recorded Vaccine Date Status Refusal Reason tetanus/diphtheria/pertussis, acel(Tdap) 1 08/21/22 Given tetanus/diphtheria/pertussis, acel(Tdap) 2 08/13/12 Given [id number] 12y+ bivalent booster vax 06/14/22 Recorded influenza [...] inactivated 6 07/31/12 Gi hali SARS-CoV-2 mRNA ([id number]) vax 02/14/22 Recorded SARS-CoV-2 (COVID-19) mRNA BNT-162b2 vac 05/06/21 Given SARS-CoV-2 (COVID-19) mRNA BNT-162b2 vac 11/04/20 Recorded SARS-CoV-2 (COVID-19) mRNA BNT-162b2 vac 10/14/20 Recorded pneumococcal 23-valent vaccine 7 04/07/19 Given 1Result Comment: [facility]# [id number] 2Admin Note: VIM dated 08/22/11 GIVEN TODAY 3Result Comment: [facility]# [id number] 4Result Comment: [05/25/2018] [facility] lot number [id number] exp 01/26/2019 [facility] [id number] 5Result Comment: [08/20/2017] [facility] [id number] 6Admin Note: VIM dated 01/29/12 GIVEN TODAY 7Result Comment: [facility]#[id number] Medications acetaminophen 500 mg oral capsule 2 [...] Stop, 04/10/2215:14:00 EDT, Route to Pharmacy Electronically, [id number], [facility]/pharmacy #2025, 158, cm, 04/10/22 14:56:00 EDT, Height, 143,... Start Date: 04/10/22 Status: Ordered amLODIPine 10 mg oral tablet 1 tablet, By Mouth, Daily, # 90 tablet, 0 Refills, Maintenance, 10/23/22 12:47:00 EDT, [facility] STORE 49809, 157, cm, 09/13/22 15:58:00 EST, Height, 145, kg, 08/29/22 20:13:00 EST, Dry Weight Start Date: 10/23/22 Status: Ordered budesonide-formoterol 80 mcg-4.5 mcg/inh inhalation aerosol with adapter 2, puffs, Inhalation, 2 times a day, PRN, use with spacer chamber, rinse mouth and throat after use, j44.9, # 1 each, Refills 6, Tot. Refills 6, Maintenance, 12/08/22 12:55:00 EDT, Aerosol, Route to Pharmacy Electronically, [id number]... Start Date: 12/08/22 Status: Ordered Compression Stockings [...] DAY, # 100 Gm, 1 Refills, Maintenance, 01/08/23 9:36:00EDT, [facility] STORE 70635, 50, APPLY TOPICALLY 4 TIMES A DAY, 157, cm, 12/08/22 14:27:00 EDT, Height, 145, kg, 08/29/22 20:13:00 EST, Dry Weight Start Date: 01/08/23 Status: Ordered docusate sodium 100 mg oral capsule 100 mg, 1, capsule, By Mouth, 2 times a day, PRN, # 20 capsule, Refills 0, Tot. Refills 0, Maintenance, as needed for constipation, 08/31/22 13:30:00 EST, Route to Pharmacy Electronically, [facility]/pharmacy #2024, Partial fill upon patient request if the p... Start Date: 08/31/22 Status: Ordered Flonase 50 mcg/inh nasal spray See Instructions, 2 sprays Nares twice daily x 1 week, then once daily x 1-2 weeks until symptoms improve, # 16 Gm, 0 Refills, Maintenance, 02/28/21 16:31:00 EDT, [place], [facility]/pharmacy #2025, Partial fill upon patient request if the prescription is for... Start Date: 02/28/21 Status: Ordered FLUoxetine 10 mg oral capsule 10 mg, 1, capsule, By Mouth, Daily, to be taken with 20mg capsules to equal 30mg daily, # 90 capsule, Refills 0, Tot. Refills 0, Maintenance, 01/18/23 9:13:00 EDT, Route to Pharmacy Electronically, [facility]/pharmacy #8915, Partial fill upon patient request... Start Date: 01/18/23 Status: Ordered FLUoxetine 20 mg oral capsule 1, capsule, By Mouth, Daily, # 30 capsule, Refills 0, Tot. Refills 0, Maintenance, 12/29/22 15:11:00 EDT, Print Requisition Start Date: 12/29/22 Status: Ordered furosemide 20 mg oral tablet 1, tablet, By Mouth, Daily, MAY REPEAT IF NEEDED IN 2 HOURS, # 30 tablet, Refills 0, Maintenance, 11/29/22 22:18:00 EDT, Route to Pharmacy Electronically, [facility] STORE 38914, 157, cm, 10/30/22 13:53:00 EDT, Height, 145, kg, 08/29/22 20:13:00 EST, Dry Weight Start Date: 11/29/22 Status: Ordered gabapentin 300 mg oral capsule 600 mg, 2, capsule, By Mouth, 3 times a day, # 180 capsule, Refills 3, Tot. Refills 3, Maintenance,08/25/22 22:35:00 EST, Route to Pharmacy Electronically, [facility]/pharmacy #2025, Partial fill upon patient [...] 1 Refills, Maintenance, 07/03/22 14:41:00 EST, Tablet, [facility]/pharmacy #2024, Partial fill upon patient request if the prescription is for a schedule II opioid dr... Start Date: 07/03/22 Status: Ordered meclizine 25 mg oral tablet See Instructions, PRN Dizziness, 1 tablet By Mouth 3 times a day, # 30 tablet, 0 Refills, Maintenance, 05/11/21 13:11:00 EDT, [facility]/pharmacy #2024, Partial fill upon patient request if the prescriptionis for a schedule II opioid drug., 160.02, cm, 10/0... Start Date: 05/11/21 Status: Ordered meloxicam 15 mg oral tablet See Instructions, TAKE 1 TABLET BY MOUTH DAILY WITH FOOD. LABS NEEDED FOR FURTHER REFILLS, # 30 tablet, 3 Refills, Maintenance, 10/18/22 21:31:00 EDT, [facility] STORE 13918, 157, cm, 09/13/22 15:58:00 EST,Height, 145, kg, [...] 09/05/22 16:29:00 EST, Route to Pharmacy Electronically, [facility]/pharmacy #2024, Partialfill upon patient request [...] 16:53:00 EDT, 12/04/22 16:52:00 EDT, Tablet, [facility], Partial fill upon [...] Team Personnel Name: Celestina Trinidad MD Position: [facility] Physician - Primary Care Member Role: PCP Address: Address: [address] [place] [address] Name: Hemalatha Lucas RN Position: [facility] RN Member Role: Primary Care Nurse Name: Lauren Mack RN Position: [facility] AMB Nurse Member Role: Primary Care Nurse Name: Madelaine Ruiz RN Position: [facility] RN Member Role: Primary Care Nurse Name: Lora Santiago RN Position: [facility] RN Member Role: Primary Care Nurse Name: Mayco Ro RN Position: [facility] RN Member Role: Primary Care Nurse Name: Heydi Potts RN Position: [facility] RN Member Role: Primary Care Nurse Name: Janice Roamno LPN Position: [facility] RN Member Role: Primary Care Nurse Name: Nadya Low RN Position: [facility] RN Member Role: Primary Care Nurse Name: Mirna Greenfield RN Position: [facility] RN Member Role: Primary Care Nurse Name: Nessa Bonilla RN Position: [facility] [employer] Packer Member Role: Primary Care Nurse Care Team Related Persons Name: ROSETTADINESH Address: home [address] [place] [address] Name: BON DE Address: home [address] [address]
--- OUTSIDE RECORDS SUMMARY | 2024-06-24 14:08 | XMS_ITS | Continuity of Care Document ---
Author Organization [facility] Address [address] [place] [address]- Care Team Providers Care Meat Clerk Name Role Phone Elder Good NP Primary Care Physician [facility]20 [facility] [address] [place] [address]- Encounter Diagnosis Acquired hypothyroidism(Discharge Diagnosis) - 12/27/20 Left shoulder pain(Discharge Diagnosis) - 12/27/20 Pain of both breasts(Discharge Diagnosis) - 12/27/20 Tinea manuum(Discharge Diagnosis) - 12/27/20 Attending Physician: Elder Good NP Allergies, Adverse [...] tetanus/diphtheria/pertussis, acel(Tdap) 6 08/13/12 Given 1Result Comment: [facility]# [id number] 2Result Comment: [05/25/2018] [facility] lot number [id number] exp 01/26/2019 [facility] [id number] 3Result Comment: [08/20/2017] [facility] [id number] 4Admin Note: VIM dated 01/29/12 GIVEN TODAY 5Result Comment: [facility]#[id number] 6Admin Note: VIM dated 08/22/11 GIVEN TODAY [...] 10/27/20 14:48:00 EDT, Route to Pharmacy Electronically, [id number], [facility]/pharmacy #2024, 160.02, cm, 10/19/20 11:04:00 EDT, Height, 156... Start Date: 10/27/20 Status: Ordered betamethasone-clotrimazole 0.05%-1% topical cream 1 application, Topically, 2 times a day, # 45 Gm, 0 Refills, Maintenance, 12/27/20 14:13:00 EDT, Cream, [facility]/pharmacy #2024, Partial fill upon patient request if the prescription is for a schedule II opioid drug., 1 application Topically 2 times a day,... Start Date: 12/27/20 Status: Ordered diclofenac 1% topical gel See Instructions, APPLY TOPICALLY 4 TIMES A DAY, # 100 Gm, 1 Refills, 10/27/20 12:37:00 EDT, [facility]/pharmacy #2024, 25, APPLY TOPICALLY 4 TIMES A DAY, 160.02, cm, 10/19/20 11:04:00 EDT, Height, 156.81, kg, 10/19/20 11:04:00 EDT, Dry Weight Start Date: 10/27/20 Status: Ordered FLUoxetine 20 mg oral capsule 20 mg, 1, capsule, By Mouth, Daily, # 30 capsule, Refills 5, Tot. Refills 5, Maintenance, 12/20/20 14:39:00 EDT, Route to Pharmacy Electronically, [facility]/pharmacy #2024, replacing 10mg dose, 160.02, cm,12/20/20 11:59:00 EDT, Height, 156.81, kg, 10/19/20... Start Date: 12/20/20 Status: Ordered levothyroxine 0.137 mg oral tablet See Instructions, Take 1 tablet by mouth on days 1-6, then take 2 tablets by mouth on day 7, # 121 tablet, 5 Refills, Maintenance, 12/07/20 9:46:00 EDT, [facility]/pharmacy #2024, 160.02, cm, 10/19/20 11:04:00 EDT, Height, 156.81, kg, 10/19/20 11:04:00 EDT,... Start Date: 12/07/20 Status: Ordered meloxicam 15 mg oral tablet 1 tablet, By Mouth, Daily, WITH FOOD., # 30 tablet, 1 Refills, Maintenance, 12/20/20 7:39:00 EDT, [facility] STORE [address]29, 160.02, cm, 10/19/20 11:04:00 EDT, Height, 156.81, kg, 10/19/20 11:04:00 EDT, Dry Weight Start Date: 12/20/20 Status: Ordered Splint See Instructions, # 1 each, Maintenance, left wrist short cock-up splint, 01/08/20 14:28:00 EDT, Supply Start Date: 01/08/20 Status: Ordered tiZANidine 2 mg oral tablet 2 mg, 1, tablet, By Mouth, Daily at bedtime, PRN, # 14 tablet, Refills 0, Tot. Refills 0, Maintenance, as needed for muscle spasm, 08/04/19 17:54:00 EST, Route to Pharmacy Electronically, [facility]/pharmacy #2024, 161, cm, 08/04/19 14:44:00 EST, Height Start Date: 08/04/19 Stop Date: 08/18/19 Status: Ordered traMADol 50 mg oral tablet 2 tablet = 100 mg, By Mouth, Every 12 hours, as needed for pain masspat checked, # 120 tablet, 2 Refills, Maintenance, 09/13/20 16:54:00 EST, [facility]/pharmacy #2024, 161, cm, 08/18/20 15:29:00 EST, Height Start Date: 09/13/20 Stop Date: 12/12/20 Status: Ordered zolpidem 10 mg oral tablet 1 tablet = 10 mg, By Mouth, Daily at bedtime, PRN for sleep, for 30 days, masspat check may fill less, # 30 tablet, 3 Refills, Acute 01/08/21 9:34:00 EDT, 09/10/20 9:34:00 EST, Tablet, [facility]/pharmacy #2025, 161, cm, 08/18/20 15:29:00 EST, Height Start Date: 09/10/20 Stop Date: 01/08/21 Status: Ordered zolpidem 10 mg oral tablet 1 tablet = 10 mg, By Mouth, Daily at bedtime, PRN for sleep, for 30 days, masspat check may fill less, # 30 tablet, 3 Refills, Acute 03/19/21 10:02:00 EDT, 11/19/20 10:02:00 EDT, Tablet, [facility]/pharmacy#2025, 160.02, cm, 10/19/20 11:04:00 EDT, Height,... Start Date: 11/19/20 Stop Date: 03/19/21 Status: Ordered Problem List Condition Effective Dates Status Health Status Inform ant Acquired hypothyroidism(Confirmed) Active Asthma(Confirmed) Active BMI 50.0-59.9, adult(Confirmed) Active Eczema(Confirmed) Active Hirsutism(Confirmed) Active Obesity(Confirmed) Active Osteoarthritis of both knees(Confirmed) Active Mild recurrent major depression(Confirmed) Active Diagnosis Diagnosis Type Effective Dates Health Status Clinical Service Informant Acquired hypothyroidism Discharge Diagnosis 12/27/20 Left shoulder pain Discharge Diagnosis 12/27/20 Pain of both breasts Discharge Diagnosis 12/27/20 Tinea manuum Discharge Diagnosis 12/27/20 Vital Signs Most recent to oldest [Reference Range]: 1 2 Height 160.02 cm (12/20/20 11:59 AM) 160.02 cm (12/20/20 11:09 AM) Oxygen Saturation [94-100 %] 96 % (12/20/20 11:09 AM) Pulse Rate [55-90 bpm] 68 bpm (12/20/20 11:09 AM) Blood Pressure [90-138/55-84 mm Hg] 134/ 84mm Hg (12/20/20 11:59 AM) 166/99mm Hg *H* (12/20/20 11:09 AM) Respiratory Rate [16-30 br/min] 20 br/mi n (12/20/20 11:09 AM) Blood pressure sites Arm, right (12/20/20 11:09 AM) Social History Social History Type Response Smoking Status Current every day sm oker; Tobacco user in household: No; Type: Cigarettes; Tobacco use times per day: 1/2 ppd; entered on: 07/08/15 Sex
--- OUTSIDE RECORDS SUMMARY | 2024-06-24 14:08 | XMS_ITS | Continuity of Care Document ---
Author Organization [facility] Address [address] [place] [address]- Care Team Providers Care Photographer Apprentice Lithographic Name Role Phone Florentino AHN, Elder Hannah Primary Care Physician Encounter [facility] Date(s): 09/23/20 - 10/23/20 [facility] [address] [place], [place] [address] Allergies, Adverse Reactions, Alerts Substance [...] tetanus/diphtheria/pertussis, acel(Tdap) 6 08/13/12 Given 1Result Comment: [facility]# [id number] 2Result Comment: [05/25/2018] [facility] lot number [id number] 01/26/2019 [facility] [id number] 3Result Comment: [08/20/2017] [facility] [id number] 4Admin Note: VIM dated 01/29/12 GIVEN TODAY 5Result Comment: [facility]#[id number] 6Admin Note: VIM dated 08/22/11 GIVEN TODAY [...] PUFFS EVERY 6 HOURS NEEDED FOR WHEEZE, [facility]/pharmacy #2024 Start Date: 05/27/19 Status: Ordered diclofenac 1% topical gel See Instructions, APPLY TOPICALLY 4 TIMES A DAY, # 100 Gm, 0 Refills, Maintenance, [facility], APPLY TOPICALLY 4 TIMES A DAY, 161, cm, 06/08/20 13:48:00 EST, Height Start Date: 07/12/20 Status: Ordered FLUoxetine 20 mg oral capsule 20 mg, 1, capsule, By Mouth, Daily, # 30 capsule, Refills 5, Tot. Refills 5, Maintenance, 05/13/20 9:34:00 EDT, Route to Pharmacy Electronically, [facility]/pharmacy #2024, replacing 10mg dose, 161, cm, 05/13/20 8:28:00 EDT, Height Start Date: 05/13/20 Status: Ordered levothyroxine 0.137 mg oral tablet See Instructions, Take 1 tablet by mouth on days 1-6, then take 2 tablets by mouth on day 7, # 121 tablet, 1 Refills, Maintenance, 08/31/20 7:32:00 EST, [facility]/pharmacy #2024, 161, cm, 08/18/20 15:29:00EST, Height Start Date: 08/31/20 Status: Ordered meloxicam 15 mg oral tablet 1 tablet, By Mouth, Daily, WITH FOOD., # 30 tablet, 1 Refills, Maintenance, 08/30/20 7:37:00 EST, [facility] STORE [id number], 161, cm, 08/18/20 15:29:00 EST, Height Start [...] 08/04/19 17:54:00 EST, Route to Pharmacy Electronically, [facility]/pharmacy #5, 161, cm, 08/04/19 14:44:00 EST, Height Start Date: 08/04/19 Stop Date: 08/18/19 Status: Ordered traMADol 50 mg oral tablet 2 tablet = 100 mg, By Mouth, Every 12 hours, for 30 days, as needed for pain masspat checked, # 120tablet, 2 Refills, Hard Stop 11/15/20 16:20:00 EDT, 08/17/20 16:20:00 EST, [facility]/pharmacy #5, 161,cm, 06/08/20 13:48:00 EST, Height Start Date: 08/17/20 Stop Date: 11/15/20 Status: Ordered traMADol 50 mg oral tablet 2 tablet = 100 mg, By Mouth, Every 12 hours, as needed for pain masspat checked, # 120 tablet, 2 Refills, Maintenance, 09/13/20 16:54:00 EST, [facility]/pharmacy #5, 161, cm, 08/18/20 15:29:00 EST, Height Start Date: 09/13/20 Stop Date: 12/12/20 Status: Ordered zolpidem 10 mg oral tablet 1 tablet = 10 mg, By Mouth, Daily at bedtime, PRN for sleep, for 30 days, masspat check may fill less, # 30 tablet, 3 Refills, Acute 01/14/21 9:22:00 EDT, 09/16/20 9:22:00 EST, Tablet, [facility]/pharmacy #5, 161, cm, 08/18/20 15:29:00 EST, Height Start Date: 09/16/20 Stop Date: 01/14/21 Status: Ordered zolpidem 10 mg oral tablet 1 tablet = 10 mg, By Mouth, Daily at bedtime, PRN for sleep, for 30 days, masspat check may fill less, # 30 tablet, 3 Refills, Acute 01/08/21 9:34:00 EDT, 09/10/20 9:34:00 EST, Tablet, [facility]/pharmacy #5, 161, cm, 08/18/20 15:29:00 EST, Height [...]
--- OUTSIDE RECORDS SUMMARY | 2024-06-24 14:08 | XMS_ITS | Continuity of Care Document ---
Author Organization [facility] Address Unknown Care Team Providers Care Slip Mixer Name Role Phone Not on Staff, PCP Primary Care Physician Unavail able Encounter [facility] [id number] Date(s): 10/20/22 - 11/29/22 [facility] Attending Physician: Yasemin Diaz MD Admitting Physician: Yasemin Diaz MD Patient Care team information Care Team Personnel Name: Not on Staff, PCP Position: S Physician (General Medicine) Member Role: PCP
--- OUTSIDE RECORDS SUMMARY | 2024-06-24 14:09 | XMS_ITS | Continuity of Care Document ---
Author Organization [facility] Address [address] [place] [address]- Care Team Providers Care Pipe Processor Name Role Phone Celestina Trinidad MD Primary Care Physician Encounter [facility] Date(s): 07/13/23 - 07/20/23 [facility] [address] [place] [address]- Encounter Diagnosis Lumbar radiculitis(Discharge Diagnosis) - 07/15/23 Acquired hypothyroidism(Discharge Diagnosis) - 07/15/23 Breast hypertrophy(Discharge Diagnosis) - 07/15/23 S/P hernia repair(Discharge Diagnosis) - 07/15/23 Attending Physician: Celestina Trinidad MD Allergies, Adverse [...] 08/21/22 Given tetanus/diphtheria/pertussis, acel(Tdap) 7 08/13/12 Given [id number] 12y+ bivalent booster vax 06/14/22 Recorded SARS-CoV-2 mRNA (oeyyblh-tvwb-bqxhs) vax 02/14/22 Recorded SARS-CoV-2 (COVID-19) mRNA BNT-162b2 vac 05/06/21 Given SARS-CoV-2 (COVID-19) mRNA BNT-162b2 vac 11/04/20 Recorded SARS-CoV-2 (COVID-19) mRNA BNT-162b2 vac 10/14/20 Recorded pneumococcal 23-valent vaccine 8 04/07/19 Given 1Result Comment: screening negative 2Result Comment: [facility]# [id number] 3Result Comment: [05/25/2018] [facility] lot number [id number] exp 01/26/2019 [facility] [id number] 4Result Comment: [08/20/2017] [facility] [id number] 5Admin Note: VIM dated 01/29/12 GIVEN TODAY 6Result Comment: [facility]# [id number] 7Admin Note: VIM dated 08/22/11 GIVEN TODAY 8Result Comment: [facility]#[id number] Medications acetaminophen 500 mg oral capsule 2 [...] 05/17/23 16:45:00 EDT, Route to Pharmacy Electronically, [facility]/pharmacy #2024, Partial fill upon patient request [...] Gm, 0 Refills, Maintenance, 02/28/21 16:31:00 EDT, [place], Partial fill upon patient request if the prescription is for... Start Date: 02/28/21 Status: Ordered FLUoxetine 10 mg oral capsule 10 mg, 1, capsule, By Mouth, Daily, to be taken with 20mg capsules to equal 30mg daily, # 90 capsule, Refills 1, Tot. Refills 1, Maintenance, 04/03/23 11:25:00 EDT, [facility], [facility], Partial fill upon patient reques... Start Date: 04/03/23 Status: Ordered FLUoxetine 20 mg oral capsule 1, capsule, By Mouth, Daily, # 90 capsule, Refills 1, Tot. Refills 1, Maintenance, 04/03/23 11:23:00 EDT, Route to Pharmacy Electronically, [facility]/pharmacy #2024, 157, cm, 03/14/23 11:02:00 EDT, Height,145, kg, 08/29/22 20:13:00 EST, Dry Weight Start Date: 04/03/23 Status: Ordered gabapentin 300 mg oral capsule 600 mg, 2, capsule, By Mouth, 3 times a day, # 180 capsule, Refills 3, Tot. Refills 3, Maintenance,08/25/22 22:35:00 EST, Route to Pharmacy Electronically, [facility]/pharmacy #202, Partial fill upon patient request [...] tablet, 2 Refills, Maintenance, 02/27/23 7:25:00 EDT, [facility] STORE 28509, 157, cm, 12/08/22 14:27:00 EDT, Height, 145, kg, 08/29/22 20:13:00 EST, Dry... Start Date: 02/27/23 Status: Ordered levothyroxine 150 mcg (0.15 mg) oral tablet 1 tablet = 150 mcg, By Mouth, Daily, # 90 tablet, 0 Refills, Maintenance, 07/15/23 17:38:00 EST, Tablet, [facility]/pharmacy #202, Partial fill upon patient request if the prescription is for a schedule IIopioid drug., 157.5, cm, 07/13/23 9:57:00 EST, [place]... Start Date: 07/15/23 Status: Ordered meclizine 25 mg oral tablet [...] 1 Refills, Maintenance, 05/01/23 14:45:00 EDT, [facility], 157, cm, 03/14/23 11:02:00 EDT, Height, 145, kg, 08/29/22 20:13:00 EST, Dry Weight Start Date: 05/01/23 Status: Ordered oxyCODONE 5 mg oral tablet 5 mg, 1, tablet, By Mouth, Every 4 hours, PRN, you may filll this prescription for fewer pills. Edward ochoa, # 20 tablet, Refills 0, Tot. Refills 0, Maintenance, Pain , Severe, 07/13/23 21:40:00EST, [facility], [facility] Start Date: 07/13/23 Status: Ordered Splint See Instructions, # 1 [...] 05/22/23 7:39:0... Start Date: 07/02/23 Status: Ordered Vitamin D3 2000 intl units oral capsule 1 capsule = 50 mcg, By Mouth, Daily, # 90 capsule, 1 Refills, Maintenance, 07/15/23 17:38:00 EST, Capsule, [facility], Partial fill upon patient request if the prescription is for a schedule II opioid drug., 157.5, cm, 07/13/23 9:57:00 EST, He... Start Date: 07/15/23 Status: Ordered zolpidem 10 mg oral tablet 1 tablet = 10 mg, By Mouth, Daily at bedtime, # 30 tablet, 0 Refills, Maintenance, 07/10/23 11:57:00 EST, [facility], Partial fill upon patient request [...] Effective Dates Health Status Clinical Service Informant Lumbar radiculitis Discharge Diagnosis 07/15/23 Acquired hypothyroidism Discharge Diagnosis 07/15/23 Breast hypertrophy Discharge Diagnosis 07/15/23 S/P hernia repair Discharge Diagnosis 07/15/23 Vital Signs Most recent to oldest [Reference Range]: 1 2 Height 157.5 cm (07/13/23 9:57 AM) 157.5 cm (07/13/23 9:50 AM) Oxygen Saturation [94-100 %] 99 % (07/13/23 9:50 AM) Pulse Rate [55-90 bpm] 68 bpm (07/13/23 9:50 AM) Blood Pressure [90-138/55-84 mm Hg] 156/ 85mm Hg *H* (07/13/23 9:57 AM) 155/82mm Hg *H* (07/13/23 9:50 AM) Blood pressure sites Arm, left (07/13/23 9:57 AM) Arm, left (07/13/23 9:50 AM) Social History Social History Type Response [...] Code MRI Safety Implantable Status Assigning Authority [id number] Unknown [id number] Unknown 08/26/24 Unknown Unknown Active GS1 Patient Care team information Care Team Personnel Name: Celestina Trinidad MD Position: [facility] Physician - Primary Care Member Role: PCP Address: Address: [address] [place] [address] Name: Hemalatha Lucas RN Position: [facility] RN Member Role: Primary Care Nurse Name: Lauren Mack RN Position: [facility] AMB Nurse Member Role: Primary Care Nurse Name: Madelaine Ruiz RN Position: [facility] RN Member Role: Primary Care Nurse Name: Lora Santiago RN Position: [facility] SN RN Member Role: Primary Care Nurse Name: Mayco Ro RN Position: [facility] RN Member Role: Primary Care Nurse Name: Heydi Potts RN Position: [facility] SN RN Member Role: Primary Care Nurse Name: Janice Romano LPN Position: [facility] RN Member Role: Primary Care Nurse Name: Nadya Low RN Position: [facility] RN Member Role: Primary Care Nurse Name: Mirna Greenfield RN Position: [facility] RN Member Role: Primary Care Nurse Name: Nessa Bonilla RN Position: [facility] [employer] Dedicated Truck Driver Member Role: Primary Care Nurse Care Team Related Persons Name: DINESH SARGENT Address: home [address] [place] [address] Name: BON DE Address: home [address] [place] [id number]
--- OUTSIDE RECORDS SUMMARY | 2024-06-24 14:09 | XMS_ITS | Continuity of Care Document ---
Author Organization [facility] Address [address] [place] [address]- Care Team Providers Care Logging Crew Foreman Name Role Phone Vivi HENNING, Celestina Givens Primary Care Physician En[place] [facility] Date(s): 03/04/24 - 04/03/24 [facility] [address] [place] [address]- Allergies, Adverse Reactions, Alerts No Known Allergies [...] 08/21/22 Given tetanus/diphtheria/pertussis, acel(Tdap) 7 08/13/12 Given [id number] 12y+ bivalent booster vax 06/14/22 Recorded SARS-CoV-2 mRNA (lrqhmzk-vgzo-lhblc) vax 02/14/22 Recorded SARS-CoV-2 (COVID-19) mRNA BNT-162b2 vac 05/06/21 Given SARS-CoV-2 (COVID-19) mRNA BNT-162b2 vac 11/04/20 Recorded SARS-CoV-2 (COVID-19) mRNA BNT-162b2 vac 10/14/20 Recorded pneumococcal 23-valent vaccine 8 04/07/19 Given 1Result Comment: screening negative 2Result Comment: [facility]# [id number] 3Result Comment: [05/25/2018] [facility] lot number [id number] exp 01/26/2019 [facility] [id number] 4Result Comment: [08/20/2017] [facility] [id number] 5Admin Note: VIM dated 01/29/12 GIVEN TODAY 6Result Comment: [facility]# [id number] 7Admin Note: VIM dated 08/22/11 GIVEN TODAY 8Result Comment: [facility]#[id number] Medications acetaminophen 500 mg oral capsule 2 [...] Refills, Soft Stop, 12/06/23 17:28:00 EDT, [facility]/pharmacy #5, Partial fill upon patient request if [...] 05/17/24 16:46:00 EDT, [facility], Partial fill upon patient request if the prescription is for a... Start Date: 05/17/24 Status: Ordered cyclobenzaprine 10 mg oral tablet 10 mg, 1, tablet, By Mouth, 3 times a day, PRN, # 30 tablet, Refills 0, Tot. Refills 0, Acute 05/17/24 16:46:00 EDT, for spasm, 05/17/23 16:45:00 EDT, [facility], [facility], Partial fill upon patient request if the presc... Start Date: 05/17/23 Stop Date: 05/17/24 Status: Ordered diclofenac 1% topical gel See Instructions, APPLY TO AFFECTED AREA 4 TIMES A DAY. NOT COVERED, # 100 Gm, 1 Refills, Maintenance, 03/28/24 11:20:00 EDT, [facility], 30, APPLY TO AFFECTED AREA 4 TIMES A DAY. NOT COVERED, 157.5, cm, 02/12/24 14:48:00 EDT, Height, 145.9, k... Start Date: 03/28/24 Status: Ordered diclofenac 1% topical gel See Instructions, APPLY TO AFFECTED AREA 4 TIMES A DAY, # 100 Gm, 1 Refills, Maintenance, 11/07/23 7:48:00 EDT, [facility], 25, APPLY TO AFFECTED AREA 4 [...] Gm, 0 Refills, Maintenance, 02/28/21 16:31:00 EDT, [place], [facility]/pharmacy #2024, Partial fill upon patient request if the prescription is for... Start Date: 02/28/21 Status: Ordered FLUoxetine 10 mg oral capsule 1, capsule, By Mouth, Daily, INSTR:TO BE TAKEN WITH 20MG CAPSULES TO EQUAL 30MG DAILY, # 90 capsule, Refills 1, Maintenance, 01/25/24 9:11:00 EDT, Route to Pharmacy Electronically, [facility] STORE 95961, 157.5, cm, 01/22/24 10:31:00 EDT, Height, 145.9, kg,... Start Date: 01/25/24 Status: Ordered gabapentin 300 mg oral capsule 600 mg, 2, capsule, By Mouth, 3 times a day, # 180 capsule, Refills 3, Tot. Refills 3, Maintenance,08/25/22 22:35:00 EST, Route to Pharmacy Electronically, [facility]/pharmacy #2024, Partial fill upon patient request if [...] Refills, Maintenance, 12/28/23 16:17:00 EDT, [facility], 157.5, cm, 10/18/23 15:15:00 EDT, Height, 145.9, [...] tablet, 1 Refills, Maintenance, 03/28/24 7:37:00 EDT, [facility]/pharmacy #2025, 157.5, cm, 02/12/24 14:48:00 EDT, Height, 145.9, kg, :39:00 EDT, Dry Weight Start Date: 03/28/24 Status: Ordered metFORMIN 500 mg oral tablet, extended release 1 tablet = 500 mg, By Mouth, Daily, # 90 tablet, 1 Refills, Maintenance, 01/22/24 11:02:00 EDT, ER Tablet, [facility]/pharmacy #2025, Partial fill upon patient request if [...] Tot. Refills 0, Maintenance, Pain , Severe, 03/24/24 17:27:00EDT, [facility], [facility] Start Date: 03/24/24 Status: Ordered ROLLATOR WALKER with seat and [...] 0 Refills, Maintenance, 11/29/23 15:24:00 EDT, [facility], 157.5, cm, 10/18/23 1... Start Date: 11/29/23 [...] bedtime, # 30 tablet, 0 Refills, Maintenance, 03/31/24 17:50:00 EDT, [facility]/pharmacy #5, Partial fill upon patient request if the prescription is for a schedule II opioid drug., 157.5, cm, 02/12/24 14:48:00 EDT, He... Start Date: 03/31/24 Status: Ordered Problem List Condition Confirmation Course [...] Code MRI Safety Implantable Status Assigning Authority [id number] Unknown [id number] Unknown 08/26/24 Unknown Unknown Active GS1 Patient Care team information Care Team Personnel Name: Celestina Trinidad MD Position: [facility] Physician - Primary Care Member Role: PCP Address: Address: [address] [place] [id number] Name: Hemalatha Lucas RN Position: [facility] RN Member Role: Primary Care Nurse Name: Lauren Mack RN Position: [facility] RN Member Role: Primary Care Nurse Name: Madelaine Ruiz RN Position: [facility] RN Member Role: Primary Care Nurse Name: Lora Santiago RN Position: [facility] SN RN Member Role: Primary Care Nurse Name: Mayco Ro RN Position: [facility] RN Member Role: Primary Care Nurse Name: Heydi Potts RN Position: [facility] SN RN Member Role: Primary Care Nurse Name: Janice Romano LPN Position: [facility] RN Member Role: Primary Care Nurse Name: Nadya Low RN Position: [facility] RN Member Role: Primary Care Nurse Name: Mirna Greenfield RN Position: [facility] RN Member Role: Primary Care Nurse Name: Nessa Bonilla RN Position: [facility] Pharmacology Associate Member Role: Primary Care Nurse Care Team Related Persons Name: DINESH SARGENT Address: home [address] [place] [address] Name: BON DE Address: [address] [address]
--- OUTSIDE RECORDS SUMMARY | 2024-06-24 14:09 | XMS_ITS | Continuity of Care Document ---
Author Organization [facility] Address [address] [place] [address]- Care Team Providers Care Edge Inker Uppers Name Role Phone Celestina Trinidad MD Primary Care Physician [place] [facility] [place] 10/22/23 - 11/21/23 [facility] [address] [place] [address]- Allergies, Adverse Reactions, Alerts No Known Allergies [...] 08/21/22 Given tetanus/diphtheria/pertussis, acel(Tdap) 7 08/13/12 Given [id number] 12y+ bivalent booster vax 06/14/22 Recorded SARS-CoV-2 mRNA (zubrexp-vdam-ghawf) vax 02/14/22 Recorded SARS-CoV-2 (COVID-19) mRNA BNT-162b2 vac 05/06/21 Given SARS-CoV-2 (COVID-19) mRNA BNT-162b2 vac 11/04/20 Recorded SARS-CoV-2 (COVID-19) mRNA BNT-162b2 vac 10/14/20 Recorded pneumococcal 23-valent vaccine 8 04/07/19 Given 1Result Comment: screening negative 2Result Comment: [facility]# [id number] 3Result Comment: [05/25/2018] [facility] lot number [id number] exp 01/26/2019 [facility] [id number] 4Result Comment: [08/20/2017] [facility] [id number] 5Admin Note: VIM dated 01/29/12 GIVEN TODAY 6Result Comment: [facility]# [id number] 7Admin Note: VIM dated 08/22/11 GIVEN TODAY 8Result Comment: [facility]#[id number] Medications acetaminophen 500 mg oral capsule 2 [...] 05/17/23 16:45:00 EDT, Route to Pharmacy Electronically, [facility]/pharmacy #2024, Partial fill upon patient request if [...] Gm, 0 Refills, Maintenance, 02/28/21 16:31:00 EDT, [place], [facility], Partial fill upon patient request [...] 07/31/23 19:01:00 EST, [facility], cm, 07/13/23 9:57:00 EST, Height, 145.9, kg, 05/22/23 7:39:00 EDT, Dry Weight Start Date: 07/31/23 Status: Ordered gabapentin 300 mg oral capsule 600 mg, 2, capsule, By Mouth, 3 times a day, # 180 capsule, Refills 3, Tot. Refills 3, Maintenance,08/25/22 22:35:00 EST, [facility] fill upon patient request [...] tablet, 0 Refills, Maintenance, 10/12/23 6:42:00 EDT, [facility]/pharmacy #2024, 157.5, cm, 07/13/23 9:57:00 EST, Height, 145.9, kg, 05/22/23 7:39:00 EDT, Dry Weight Start Date: 10/12/23 Status: Ordered meclizine 25 mg oral tablet See Instructions, PRN Dizziness, 1 tablet By Mouth 3 times a day, # 30 tablet, 0 Refills, Maintenance, 02/27/23 10:43:00 EDT, [facility]/pharmacy #2024, Partial fill upon patient request if the prescriptionis for a schedule II opioid drug., 157, cm, ... Start Date: 02/27/23 Status: Ordered meloxicam 15 mg oral tablet See Instructions, TAKE 1 TABLET BY MOUTH DAILY WITH FOOD., # 30 tablet, 5 Refills, Maintenance, 10/08/23 17:05:00 EDT, [facility]/pharmacy #2024, 157.5, cm, 07/13/23 9:57:00 EST, Height, 145.9, kg, :39:00 EDT, Dry Weight Start Date: 10/08/23 Status: Ordered metFORMIN 500 mg oral tablet, extended release 1 tablet = 500 mg, By Mouth, Daily, # 90 tablet, 1 Refills, Maintenance, 10/24/23 11:39:00 EDT, ER Tablet, [facility]/pharmacy #2024, Partial fill upon patient request if [...] tablet, 0 Refills, Maintenance, 11/05/23 16:28:00 EDT, [facility]/pharmacy #2025, Partial fill upon patient request if [...] Code MRI Safety Implantable Status Assigning Authority [id number] Unknown [id number] Unknown 08/26/24 Unknown Unknown Active GS1 Patient Care team information Care Team Personnel Name: Celestina Trinidad MD Position: S Physician - Primary Care Member Role: PCP Address: Address: [address] [place] [address] Name: Hemalatha Lucas RN Position: [facility] RN Member Role: Primary Care Nurse Name: Lauren Mack RN Position: [facility] AMB Nurse Member Role: Primary Care Nurse Name: Madelaine Ruiz RN Position: [facility] RN Member Role: Primary Care Nurse Name: Lora Santiago RN Position: [facility] SN RN Member Role: Primary Care Nurse Name: Mayco Ro RN Position: [facility] RN Member Role: Primary Care Nurse Name: Heydi Potts RN Position: [facility] RN Member Role: Primary Care Nurse Name: Janice Romano LPN Position: [facility] RN Member Role: Primary Care Nurse Name: Nadya Low RN Position: [facility] RN Member Role: Primary Care Nurse Name: Mirna Greenfield RN Position: [facility] RN Member Role: Primary Care Nurse Name: Nessa Bonilla RN Position: [facility] Art Critic Member Role: Primary Care Nurse Care Team Related Persons Name: ROSETTA DINESH Address: home [address] [place] [address] Name: BON DE Address: home [address] [address]
--- OUTSIDE RECORDS SUMMARY | 2024-06-24 14:09 | XMS_ITS | Continuity of Care Document ---
Author Organization [facility] Address [address] [place] [address]- Care Team Providers Care Case Consultant Name Role Phone Florentino AHN, Elder Hannah Primary Care Physician Encounter [facility] Date(s): 12/06/20 - 01/05/21 [facility] [address] [place] [address]- Allergies, Adverse Reactions, Alerts Substance Reaction Severity [...] acel(Tdap) 6 08/13/12 Given 1Result Comment: [facility]# [id number] 2Result Comment: [05/25/2018] [facility] lot number [id number] exp 01/26/2019 [facility] [id number] 3Result Comment: [08/20/2017] [facility] [id number] 4Admin Note: VIM dated 01/29/12 GIVEN TODAY 5Result Comment: [facility]#[id number] 6Admin Note: VIM dated 08/22/11 GIVEN TODAY [...] 10/27/20 14:48:00 EDT, Route to Pharmacy Electronically, [id number], [facility]/pharmacy #2024, 160.02, cm, 10/19/20 11:04:00 EDT, Height, 156... Start Date: 10/27/20 Status: Ordered betamethasone-clotrimazole 0.05%-1% topical cream 1 application, Topically, 2 times a day, # 45 Gm, 0 Refills, Maintenance, 12/27/20 14:13:00 EDT, Cream, [facility]/pharmacy #2024, Partial fill upon patient request if the prescription is for a schedule II opioid drug., 1 application Topically 2 times a day,... Start Date: 12/27/20 Status: Ordered diclofenac 1% topical gel See Instructions, APPLY TOPICALLY 4 TIMES A DAY, # 100 Gm, 1 Refills, 10/27/20 12:37:00 EDT, [facility]/pharmacy #2024, 25, APPLY TOPICALLY 4 TIMES A DAY, 160.02, cm, 10/19/20 11:04:00 EDT, Height, 156.81, kg, 10/19/20 11:04:00 EDT, Dry Weight Start Date: 10/27/20 Status: Ordered FLUoxetine 20 mg oral capsule 20 mg, 1, capsule, By Mouth, Daily, # 30 capsule, Refills 5, Tot. Refills 5, Maintenance, 12/20/20 14:39:00 EDT, Route to Pharmacy Electronically, [facility]/pharmacy #2024, replacing 10mg dose, 160.02, cm,12/20/20 11:59:00 EDT, Height, 156.81, kg, 10/19/20... Start Date: 12/20/20 Status: Ordered levothyroxine 0.137 mg oral tablet See Instructions, Take 1 tablet by mouth on days 1-6, then take 2 tablets by mouth on day 7, # 121 tablet, 5 Refills, Maintenance, 12/07/20 9:46:00 EDT, [facility]/pharmacy #5, 160.02, cm, 10/19/20 11:04:00 EDT, Height, 156.81, kg, 10/19/20 11:04:00 EDT,... Start Date: 12/07/20 Status: Ordered meloxicam 15 mg oral tablet 1 tablet, By Mouth, Daily, WITH FOOD., # 30 tablet, 1 Refills, Maintenance, 12/20/20 7:39:00 EDT, [facility], 160.02, cm, 10/19/20 11:04:00 EDT, Height, 156.81, [...] EST, Route to Pharmacy Electronically, [facility]/pharmacy #2024, 161, cm, 08/04/19 14:44:00 EST, Height Start Date: 08/04/19 Stop Date: 08/18/19 Status: Ordered traMADol 50 mg oral tablet 2 tablet = 100 mg, By Mouth, Every 12 hours, as needed for pain masspat checked, # 120 tablet, 2 Refills, Maintenance, 09/13/20 16:54:00 EST, [facility]/pharmacy #5, 161, cm, 08/18/20 15:29:00 [...]
--- OUTSIDE RECORDS SUMMARY | 2024-06-24 14:09 | XMS_ITS | Continuity of Care Document ---
Author Organization [facility] Address [address] [place] [address]- Care Team Providers Care Dye Expert Name Role Phone Vivi HENNING, Celestina Givens Primary Care Physician Encounter [facility] Date(s): 09/21/22 - 10/21/22 [facility] [address] [place] [address]- Allergies, Adverse Reactions, Alerts No Known Allergies Immunizations Given and Recorded Vaccine Date Status Refusal Reason tetanus/diphtheria/pertussis, acel(Tdap) 1 08/21/22 Given tetanus/diphtheria/pertussis, acel(Tdap) 2 08/13/12 Given [id number] 12y+ bivalent booster vax 06/14/22 Recorded influenza [...] inactivated 6 07/31/12 Gi hali SARS-CoV-2 mRNA ([id number]) vax 02/14/22 Recorded SARS-CoV-2 (COVID-19) mRNA BNT-162b2 vac 05/06/21 Given SARS-CoV-2 (COVID-19) mRNA BNT-162b2 vac 11/04/20 Recorded SARS-CoV-2 (COVID-19) mRNA BNT-162b2 vac 10/14/20 Recorded pneumococcal 23-valent vaccine 7 04/07/19 Given 1Result Comment: [facility]# [id number] 2Admin Note: VIM dated 08/22/11 GIVEN TODAY 3Result Comment: [facility][note 3]# [id number] 4Result Comment: [05/25/2018] [employer] lot number [id number] exp 01/26/2019 [facility][note 3] [id number] 5Result Comment: [08/20/2017] [facility][note 3] [id number] 6Admin Note: VIM dated 01/29/12 GIVEN TODAY 7Result Comment: [facility]#[id number] Medications acetaminophen 500 mg oral capsule 2 [...] Stop, 04/10/2215:14:00 EDT, Route to Pharmacy Electronically, [id number], [facility]/pharmacy #2025, 158, cm, 04/10/22 14:56:00 EDT, Height, 143,... Start Date: 04/10/22 Status: Ordered amLODIPine 5 mg oral tablet 1 tablet, By Mouth, Daily, # 30 tablet, 5 Refills, Maintenance, 08/24/22 20:08:00 EST, [facility], 159, cm, 08/21/22 11:38:00 EST, Height, 143, kg, 01/04/21 10:42:00 EDT, Dry Weight Start Date: 08/24/22 Status: Ordered budesonide-formoterol 80 mcg-4.5 mcg/inh inhalation aerosol with adapter 2, puffs, Inhalation, 2 times a day, PRN, use with spacer chamber, rinse mouth and throat after use, # 10.2 Gm, Refills 5, Tot. Refills 5, Maintenance, 09/12/22 11:06:00 EST, Aerosol, Route to Pharmacy Electronically, [id number]... Start Date: 09/12/22 Status: Ordered cilostazol 50 mg oral tablet 1 tablet = 50 mg, By Mouth, Daily, # 180 tablet, 0 Refills, Maintenance, 09/02/22 10:35:00 EST, Tablet, [facility]/pharmacy #2024, Partial fill upon patient request if the prescription is for a schedule II opioid drug., 157, cm, 08/31/22 7:20:00 EST, Height,... Start Date: 09/02/22 Stop Date: 10/14/22 Status: Ordered Compression Stockings See Instructions, # 2 each, Refills 2, Tot. Refills 2, Maintenance, surgical, calf length 20-30 mm Hg Dx: venous insufficiency, 07/01/22 6:53:00 EST, Compound, 158, cm, 06/09/22 11:21:00 EST, Height,143, kg, 01/04/21 10:42:00 EDT, Dry Weight Start Date: 07/01/22 Status: Ordered Compression Stockings See Instructions, # 3 each, Maintenance, surgical, calf length 30-40 mm Hg Venous insufficiency. (187.2), 09/28/22 12:23:00 EST, Venous insufficiency. (187.2), Supply Start Date: 09/28/22 Status: Ordered diclofenac 1% topical gel See Instructions, APPLY TOPICALLY 4 TIMES A DAY, # 100 Gm, 1 Refills, 09/22/22 7:28:00 EST, [facility], 25, APPLY TOPICALLY 4 [...] 08/31/22 13:30:00 EST, Route to Pharmacy Electronically, [facility]/pharmacy #5, Partial fill upon patient request if the p... Start Date: 08/31/22 Status: Ordered Flonase 50 mcg/inh nasal spray See Instructions, 2 sprays Nares twice daily x 1 week, then once daily x 1-2 weeks until symptoms improve, # 16 Gm, 0 Refills, Maintenance, 02/28/21 16:31:00 EDT, [place], [facility]/pharmacy #2025, Partial fill upon patient request if the prescription is for... Start Date: 02/28/21 Status: Ordered FLUoxetine 20 mg oral capsule See Instructions, TAKE 1 CAPSULE BY MOUTH EVERY DAY, # 90 capsule, Refills 1, Maintenance, 06/13/2215:26:00 EST, Instructions Replace Required Details, Route to Pharmacy Electronically, [facility], 158, cm, 06/09/22 11:21:00 EST, Height, 143, kg... Start Date: 06/13/22 Status: Ordered furosemide 20 mg oral tablet 1, tablet, By Mouth, Daily, MAY REPEAT IF NEEDED IN 2 HOURS, # 30 tablet, Refills 0, Maintenance, 10/18/22 21:31:00 EDT, Route to Pharmacy Electronically, [facility], 157, cm, 09/13/22 15:58:00 EST, Height, 145, kg, 08/29/22 20:13:00 EST, Dry Weight Start Date: 10/18/22 Status: Ordered gabapentin 300 mg oral capsule 600 mg, 2, capsule, By Mouth, 3 times a day, # 180 capsule, Refills 3, Tot. Refills 3, Maintenance,08/25/22 22:35:00 EST, Route to Pharmacy Electronically, [facility]/pharmacy #5, Partial fill upon patient request if the prescription is for a schedule II... Start Date: 08/25/22 Status: Ordered levothyroxine 0.137 mg oral tablet 1 tablet = 137 mcg, By Mouth, Daily, 1 tab on days 1-6, take 2 tabs on day 7, # 102 tablet, 1 Refills, Maintenance, 07/03/22 14:41:00 EST, Tablet, [facility]/pharmacy #202, Partial fill upon patient request if the prescription is for a schedule II opioid dr... Start Date: 07/03/22 Status: Ordered meclizine 25 mg oral tablet See Instructions, PRN Dizziness, 1 tablet By Mouth 3 times a day, # 30 tablet, 0 Refills, Maintenance, 05/11/21 13:11:00 EDT, [facility]/pharmacy #2024, Partial fill upon patient request if the prescriptionis for a schedule II opioid drug., 160.02, cm, 10/0... Start Date: 05/11/21 Status: Ordered meloxicam 15 mg oral tablet See Instructions, TAKE 1 TABLET BY MOUTH DAILY WITH FOOD. LABS NEEDED FOR FURTHER REFILLS, # 30 tablet, 3 Refills, Maintenance, 10/18/22 21:31:00 EDT, [facility], 157, cm, 09/13/22 15:58:00 EST,Height, 145, kg, [...] 09/05/22 16:29:00 EST, Route to Pharmacy Electronically, [facility]/pharmacy #2024, Partialfill upon patient request if the prescription is fo... Start Date: 09/05/22 Stop Date: 09/12/22 Status: Ordered traMADol 50 mg oral tablet See Instructions, 2 tab po qam and one tab po q pm prn moderate to severe pain. 28 days. mass pat ok, # 81 tablet, 0 Refills, Maintenance, 09/21/22 16:44:00 EST, [facility], 157, cm, 09/13/2314:58:00 EST, Height, 145, kg, 08/29/22 20:13:00 E... Start Date: 09/21/22 Status: Ordered zolpidem 10 mg oral tablet 1 tablet = 10 mg, By Mouth, Daily at bedtime, PRN for sleep, for 30 days, masspat check may fill less, # 30 tablet, 0 Refills, Acute 11/01/22 17:14:00 EDT, 10/02/22 17:14:00 EST, Tablet, [facility], 157, cm, 09/13/22 15:58:00 EST, Height, 145... Start Date: 10/02/22 Stop Date: 11/01/22 Status: Ordered zolpidem 10 mg oral tablet 1 tablet = 10 mg, By Mouth, Daily at bedtime, PRN for sleep, for 30 days, masspat check may fill less, # 30 tablet, 0 Refills, Acute 11/20/22 16:47:00 EDT, 10/21/22 16:47:00 EDT, Tablet, [facility], 157, cm, 09/13/22 15:58:00 EST, Height, 145... [...] Trinidad MD Position: [facility] Primary Care Physician Member Role: PCP Address: Address: [address] [place] [id number] Name: Hemalatha Lucas RN Position: [facility] RN Member Role: Primary Care Nurse Name: Lauren Mack RN Position: [facility] Nurse Member Role: Primary Care Nurse Name: Madelaine Ruiz RN Position: [facility] RN Member Role: Primary Care Nurse Name: Lora Santiago RN Position: [facility] SN RN Member Role: Primary Care Nurse Name: Mayco Ro RN Position: [facility] RN Member Role: Primary Care Nurse Name: Heydi Potts RN Position: [facility] RN [...] Name: Nessa Bonilla RN Position: [facility] Director Acute Member Role: Primary Care Nurse Care Team Related Persons Name: DINESH SARGENT Address: home [address] [place] [address] Name: BON DE Address: home [address] [address]
--- OUTSIDE RECORDS SUMMARY | 2024-06-24 14:09 | XMS_ITS | Continuity of Care Document ---
Author Organization [facility] Address [address] [place] [address]- Care Team Providers Care Truck Hop Name Role Phone Celestina Trinidad MD Primary Care Physician Encounter [facility] Date(s): 10/15/23 - 11/14/23 [facility] [address] [place] [address]- Allergies, Adverse Reactions, Alerts No Known Allergies [...] 08/21/22 Given tetanus/diphtheria/pertussis, acel(Tdap) 7 08/13/12 Given [id number] 12y+ bivalent booster vax 06/14/22 Recorded SARS-CoV-2 mRNA (bjpialh-zmmn-qjjgk) vax 02/14/22 Recorded SARS-CoV-2 (COVID-19) mRNA BNT-162b2 vac 05/06/21 Given SARS-CoV-2 (COVID-19) mRNA BNT-162b2 vac 11/04/20 Recorded SARS-CoV-2 (COVID-19) mRNA BNT-162b2 vac 10/14/20 Recorded pneumococcal 23-valent vaccine 8 04/07/19 Given 1Result Comment: screening negative 2Result Comment: [facility]# [id number] 3Result Comment: [05/25/2018] [facility] lot number [id number] exp 01/26/2019 [facility] [id number] 4Result Comment: [08/20/2017] [facility] [id number] 5Admin Note: VIM dated 01/29/12 GIVEN TODAY 6Result Comment: [facility]# [id number] 7Admin Note: VIM dated 08/22/11 GIVEN TODAY 8Result Comment: [facility]#[id number] Medications acetaminophen 500 mg oral capsule 2 [...] 05/17/23 16:45:00 EDT, Route to Pharmacy Electronically, [facility]/pharmacy #2024, Partial fill upon patient request [...] Gm, 0 Refills, Maintenance, 02/28/21 16:31:00 EDT, [place], Partial fill upon patient request [...] 19:01:00 EST, [facility], cm, 07/13/23 9:57:00 EST, Height, 145.9, kg, 05/22/23 7:39:00 EDT, Dry Weight Start Date: 07/31/23 Status: Ordered gabapentin 300 mg oral capsule 600 mg, 2, capsule, By Mouth, 3 times a day, # 180 capsule, Refills 3, Tot. Refills 3, Maintenance,08/25/22 22:35:00 EST, [facility]ically[facility] fill upon patient request [...] tablet, 0 Refills, Maintenance, 10/12/23 6:42:00 EDT, [facility]/pharmacy #2024, 157.5, cm, 07/13/23 9:57:00 EST, Height, 145.9, kg, 05/22/23 7:39:00 EDT, Dry Weight Start Date: 10/12/23 Status: Ordered meclizine 25 mg oral tablet See Instructions, PRN Dizziness, 1 tablet By Mouth 3 times a day, # 30 tablet, 0 Refills, Maintenance, 02/27/23 10:43:00 EDT, [facility]/pharmacy #2024, Partial fill upon patient request if the prescriptionis for a schedule II opioid drug., 157, cm, ... Start Date: 02/27/23 Status: Ordered meloxicam 15 mg oral tablet See Instructions, TAKE 1 TABLET BY MOUTH DAILY WITH FOOD., # 30 tablet, 5 Refills, Maintenance, 10/08/23 17:05:00 EDT, [facility]/pharmacy #2024, 157.5, cm, 07/13/23 9:57:00 EST, Height, 145.9, kg, :39:00 EDT, Dry Weight Start Date: 10/08/23 Status: Ordered metFORMIN 500 mg oral tablet, extended release 1 tablet = 500 mg, By Mouth, Daily, # 90 tablet, 1 Refills, Maintenance, 10/24/23 11:39:00 EDT, ER Tablet, [facility]/pharmacy #2024, Partial fill upon patient request [...] tablet, 0 Refills, Maintenance, 11/05/23 16:28:00 EDT, [facility]/pharmacy #2025, Partial fill upon patient request [...] Code MRI Safety Implantable Status Assigning Authority [id number] Unknown [id number] Unknown 08/26/24 Unknown Unknown Active GS1 Patient Care team information Care Team Personnel Name: Celestina Trinidad MD Position: S Physician - Primary Care Member Role: PCP Address: Address: [address] [place] [address] Name: Hemalatha Lucas RN Position: [facility] RN Member Role: Primary Care Nurse Name: Lauren Mack RN Position: [facility] AMB Nurse Member Role: Primary Care Nurse Name: Madelaine Ruiz RN Position: [facility] RN Member Role: Primary Care Nurse Name: Lora Santiago RN Position: [facility] SN RN Member Role: Primary Care Nurse Name: Mayco Ro RN Position: [facility] RN Member Role: Primary Care Nurse Name: Heydi Potts RN Position: [facility] SN RN Member Role: Primary Care Nurse Name: Janice Romano LPN Position: [facility] RN Member Role: Primary Care Nurse Name: Nadya Low RN Position: [facility] RN Member Role: Primary Care Nurse Name: Mirna Greenfield RN Position: [facility] RN Member Role: Primary Care Nurse Name: Nessa Bonilla RN Position: [facility] Business Development Coordinator Member Role: Primary Care Nurse Care Team Related Persons Name: ROSETTAROLADINESH Address: home [address] [place] [address] Name: BON DE Address: home [address] [address]
--- OUTSIDE RECORDS SUMMARY | 2024-06-24 14:09 | XMS_ITS | Continuity of Care Document ---
Author Organization [facility] Address [address] [place] [address]- Care Team Providers Care Coning Machine Operator Name Role Phone Celestina Trinidad MD Primary Care Physician Encounter [facility] Date(s): 09/13/22 - 11/17/22 [facility] [address] [place] [id number] Attending Physician: Maninder Peraza MD Admitting Physician: Maninder Peraza MD Allergies, Adverse Reactions, Alerts No Known Allergies Immunizations Given and Recorded Vaccine Date Status Refusal Reason tetanus/diphtheria/pertussis, acel(Tdap) 1 08/21/22 Given tetanus/diphtheria/pertussis, acel(Tdap) 2 08/13/12 Given [id number] 12y+ bivalent booster vax 06/14/22 Recorded influenza [...] inactivated 6 07/31/12 Gi hali SARS-CoV-2 mRNA ([id number]-dhqrn) vax 02/14/22 Recorded SARS-CoV-2 (COVID-19) mRNA BNT-162b2 vac 05/06/21 Given SARS-CoV-2 (COVID-19) mRNA BNT-162b2 vac 11/04/20 Recorded SARS-CoV-2 (COVID-19) mRNA BNT-162b2 vac 10/14/20 Recorded pneumococcal 23-valent vaccine 7 04/07/19 Given 1Result Comment: [facility]# [id number] 2Admin Note: VIM dated 08/22/11 GIVEN TODAY 3Result Comment: [facility]# [id number] 4Result Comment: [05/25/2018] [facility] lot number [id number] exp 01/26/[address] [facility] [id number] 5Result Comment: [08/20/2017] [facility] [id number] 6Admin Note: VIM dated 01/29/12 GIVEN TODAY 7Result Comment: [facility]#[id number] Medications acetaminophen 500 mg oral capsule 2 [...] Stop, 04/10/2215:14:00 EDT, Route to Pharmacy Electronically, [id number], [facility]/pharmacy #2025, 158, cm, 04/10/22 14:56:00 EDT, Height, 143,... Start Date: 04/10/22 Status: Ordered amLODIPine 10 mg oral tablet 1 tablet, By Mouth, Daily, # 90 tablet, 0 Refills, Maintenance, 10/23/22 12:47:00 EDT, [facility], 157, cm, 09/13/22 15:58:00 EST, Height, 145, kg, 08/29/22 20:13:00 EST, Dry Weight Start Date: 10/23/22 Status: Ordered budesonide-formoterol 80 mcg-4.5 mcg/inh inhalation aerosol with adapter 2, puffs, Inhalation, 2 times a day, PRN, use with spacer chamber, rinse mouth and throat after use, # 10.2 Gm, Refills 5, Tot. Refills 5, Maintenance, 09/12/22 11:06:00 EST, Aerosol, Route to Pharmacy Electronically, [id number]... Start Date: 09/12/22 Status: Ordered cilostazol 100 mg oral tablet 1 tablet, By Mouth, 2 times a day, # 60 tablet, 0 Refills, Maintenance, 11/15/22 22:18:00 EDT, [facility], 157, cm, 10/30/22 13:53:00 EDT, Height, 145, kg, 08/29/22 20:13:00 EST, Dry Weight Start Date: 11/15/22 Status: Ordered Compression Stockings See Instructions, # [...] 100 Gm, 1 Refills, 09/22/22 7:28:00 EST, [facility]/pharmacy #5, 25, APPLY TOPICALLY 4 TIMES A DAY, 157, cm, 09/13/22 15:58:00 EST, Height, 145, kg, 08/29/22 20:13:00 EST, Dry Weight Start Date: 09/22/22 Status: Ordered docusate sodium 100 mg oral capsule 100 mg, 1, capsule, By Mouth, 2 times a day, PRN, # 20 capsule, Refills 0, Tot. Refills 0, Maintenance, as needed for constipation, 08/31/22 13:30:00 EST, Route to Pharmacy Electronically, [facility]/pharmacy #2024, Partial fill upon patient request if the p... Start Date: 08/31/22 Status: Ordered Flonase 50 mcg/inh nasal spray See Instructions, 2 sprays Nares twice daily x 1 week, then once daily x 1-2 weeks until symptoms improve, # 16 Gm, 0 Refills, Maintenance, 02/28/21 16:31:00 EDT, [place], [facility]/pharmacy #2024, Partial fill upon patient request if the prescription is for... Start Date: 02/28/21 Status: Ordered FLUoxetine 20 mg oral capsule 1, capsule, By Mouth, Daily, # 90 capsule, Refills 1, Maintenance, 10/23/22 12:47:00 EDT, Route to Pharmacy Electronically, [facility], 157, cm, 09/13/22 15:58:00 EST, Height, 145, kg, 08/29/22 20:13:00 EST, Dry Weight Start Date: 10/23/22 Status: Ordered furosemide 20 mg oral tablet 1, tablet, By Mouth, Daily, MAY REPEAT IF NEEDED IN 2 HOURS, # 30 tablet, Refills 0, Maintenance, 11/08/22 16:39:00 EDT, Route to Pharmacy Electronically, [facility], 157, cm, 10/30/22 13:53:00 EDT, Height, 145, kg, 08/29/22 20:13:00 EST, Dry Weight Start Date: 11/08/22 Status: Ordered gabapentin 300 mg oral capsule 600 mg, 2, capsule, By Mouth, 3 times a day, # 180 capsule, Refills 3, Tot. Refills 3, Maintenance,08/25/22 22:35:00 EST, Route to Pharmacy Electronically, [facility]/pharmacy #2024, Partial fill upon patient [...] 1 Refills, Maintenance, 07/03/22 14:41:00 EST, Tablet, [facility]/pharmacy #2024, Partial fill upon patient request if the prescription is for a schedule II opioid dr... Start Date: 07/03/22 Status: Ordered meclizine 25 mg oral tablet See Instructions, PRN Dizziness, 1 tablet By Mouth 3 times a day, # 30 tablet, 0 Refills, Maintenance, 05/11/21 13:11:00 EDT, [facility]/pharmacy #2024, Partial fill upon patient request if the prescriptionis for a schedule II opioid drug., 160.02, cm, 10/0... Start Date: 05/11/21 Status: Ordered meloxicam 15 mg oral tablet See Instructions, TAKE 1 TABLET BY MOUTH DAILY WITH FOOD. LABS NEEDED FOR FURTHER REFILLS, # 30 tablet, 3 Refills, Maintenance, 10/18/22 21:31:00 EDT, [facility], 157, cm, 09/13/22 15:58:00 EST,Height, 145, kg, [...] 09/05/22 16:29:00 EST, Route to Pharmacy Electronically, [facility]/pharmacy #2024, Partialfill upon patient request if [...] Team Personnel Name: Celestina Trinidad MD Position: [facility] Primary Care Physician Member Role: PCP Address: Address: [address] [place] [id number] Name: Hemalatha Lucas RN Position: [facility] RN Member Role: Primary Care Nurse Name: Lauren Mack RN Position: [facility] AMB Nurse Member Role: Primary Care Nurse Name: Madelaine Ruiz RN Position: [facility] RN Member Role: Primary Care Nurse Name: Lora Santiago RN Position: [facility] RN Member Role: Primary Care Nurse Name: Mayco Ro RN Position: [facility] RN Member Role: Primary Care Nurse Name: Heydi Potts RN Position: [facility] RN Member Role: Primary Care Nurse Name: Janice Romano LPN Position: [facility] RN Member Role: Primary Care Nurse Name: Nadya Low RN Position: [facility] RN Member Role: Primary Care Nurse Name: Mirna Greenfield RN Position: [facility] RN Member Role: Primary Care Nurse Name: Nessa Bonilla RN Position: [facility] [employer] Driver Member Role: Primary Care Nurse Care Team Related Persons Name: DINESH SARGENT Address: home [address] [place] [address] Name: BON DE Address: home [address] [place] [address]
--- OUTSIDE RECORDS SUMMARY | 2024-06-24 14:09 | XMS_ITS | Continuity of Care Document ---
Author Organization [facility] ry Address [address] [place] [address]- Care Team Providers Care Video Game Technician Name Role Phone Celestina Trinidad MD Primary Care Physician Encounter [facility] Date(s): 06/20/23 - 07/20/23 [facility] Surgery [address] [place] [address]- Allergies, Adverse Reactions, Alerts No Known Allergies [...] 08/21/22 Given tetanus/diphtheria/pertussis, acel(Tdap) 7 08/13/12 Given [id number] 12y+ bivalent booster vax 06/14/22 Recorded SARS-CoV-2 mRNA (hfgczyl-efkx-qeibs) vax 02/14/22 Recorded SARS-CoV-2 (COVID-19) mRNA BNT-162b2 vac 05/06/21 Given SARS-CoV-2 (COVID-19) mRNA BNT-162b2 vac 11/04/20 Recorded SARS-CoV-2 (COVID-19) mRNA BNT-162b2 vac 10/14/20 Recorded pneumococcal 23-valent vaccine 8 04/07/19 Given 1Result Comment: screening negative 2Result Comment: [facility]# 20650-126-82 3Result Comment: [05/25/2018] [facility] lot number [id number] exp 01/26/[address] [facility] [id number] 4Result Comment: [08/20/2017] [facility] [id number] 5Admin Note: VIM dated 01/29/12 GIVEN TODAY 6Result Comment: [facility]# [id number] 7Admin Note: VIM dated 08/22/11 GIVEN TODAY 8Result Comment: [facility]#[id number] Medications acetaminophen 500 mg oral capsule 2 [...] 16:45:00 EDT, Route to [facility]acy [facility]ically, [facility], Partial fill upon patient request [...] Gm, 0 Refills, Maintenance, 02/28/21 16:31:00 EDT, [place], [facility], Partial fill upon patient request [...] 04/03/23 11:23:00 EDT, Route to Pharmacy Electronically, [facility], 157, cm, 03/14/23 11:02:00 EDT, Height,145, kg, 08/29/22 20:13:00 EST, Dry Weight Start Date: 04/03/23 Status: Ordered gabapentin 300 mg oral capsule 600 mg, 2, capsule, By Mouth, 3 times a day, # 180 capsule, Refills 3, Tot. Refills 3, Maintenance,08/25/22 22:35:00 EST, Route to Pharmacy Electronically, [facility]/pharmacy #2024, Partial fill upon patient [...] Refills, Maintenance, 02/27/23 7:25:00 EDT, [facility], 157, cm, 12/08/22 14:27:00 EDT, Height, 145, kg, 08/29/22 20:13:00 EST, Dry... Start Date: 02/27/23 Status: Ordered levothyroxine 150 mcg (0.15 mg) oral tablet 1 tablet = 150 mcg, By Mouth, Daily, # 90 tablet, 0 Refills, Maintenance, 07/15/23 17:38:00 EST, Tablet, [facility]/pharmacy #2024, Partial fill upon patient [...] moderate to severe pain. 28 days. ariel [place], # 81 tablet, 0 Refills, Maintenance, 07/02/23 [...] tablet, 0 Refills, Maintenance, 07/10/23 11:57:00 EST, [facility]/pharmacy #2024, Partial fill upon patient [...] Code MRI Safety Implantable Status Assigning Authority [id number] [id number] Unknown [id number] Unknown 08/26/24 Unknown Unknown Active GS1 Patient Care team information Care Team Personnel Name: Celestina Trinidad MD Position: [facility] Physician - Primary Care Member Role: PCP Address: Address: [address] [place] [address]- Name: Hemaaltha Lucas RN Position: [facility] RN Member Role: Primary Care Nurse Name: Lauren Mack RN Position: [facility] AMB Nurse Member Role: Primary Care Nurse Name: Madelaine Ruiz RN Position: [facility] RN Member Role: Primary Care Nurse Name: Lora Santiago RN Position: [facility] SN RN Member Role: Primary Care Nurse Name: Mayco Ro RN Position: [facility] RN Member Role: Primary Care Nurse Name: Heydi Potts RN Position: [facility] SN RN Member Role: Primary Care Nurse Name: Janice Romano LPN Position: [facility] RN Member Role: Primary Care Nurse Name: Nadya Low RN Position: [facility] RN Member Role: Primary Care Nurse Name: Mirna Greenfield RN Position: [facility] RN Member Role: Primary Care Nurse Name: Nessa Bonilla RN Position: [facility] Dean Of Graduate [employer] Member Role: Primary Care Nurse Care Team Related Persons Name: DINESH SARGENT Address: home [address] [place] [address] Name: BON DE Address: home [address] [place] [address]
--- OUTSIDE RECORDS SUMMARY | 2024-06-24 14:09 | XMS_ITS | Continuity of Care Document ---
Author Organization [facility] em Address Unknown Care Team Providers Care Sider Mechanic Name Role Phone Celestina Trinidad MD Primary Care Physician [place] [facility] [place] 06/26/23 - 07/26/23 [facility] Attending Physician: Calixto Beltran Admitting Physician: Calixto Beltran Referring Physician: Calixto Beltran Allergies, Adverse Reactions, Alerts No Known Allergies [...] 08/21/22 Given tetanus/diphtheria/pertussis, acel(Tdap) 7 08/13/12 Given [id number] 12y+ bivalent booster vax 06/14/22 Recorded SARS-CoV-2 mRNA (hflorfk-ycpm-qpjbn) vax 02/14/22 Recorded SARS-CoV-2 (COVID-19) mRNA BNT-162b2 vac 05/06/21 Given SARS-CoV-2 (COVID-19) mRNA BNT-162b2 vac 11/04/20 Recorded SARS-CoV-2 (COVID-19) mRNA BNT-162b2 vac 10/14/20 Recorded pneumococcal 23-valent vaccine 8 04/07/19 Given 1Result Comment: screening negative 2Result Comment: [facility]# [id number] 3Result Comment: [05/25/2018] [employer] lot number [id number] exp 01/26/2019 [facility] 89331-557-22 4Result Comment: [08/20/2017] [facility] [id number] 5Admin Note: VIM dated 01/29/12 GIVEN TODAY 6Result Comment: [facility]# [id number] 7Admin Note: VIM dated 08/22/11 GIVEN TODAY 8Result Comment: [facility]#[id number] Medications acetaminophen 500 mg oral capsule 2 [...] 05/17/23 16:45:00 EDT, Route to Pharmacy Electronically, [facility]/pharm[facility] #202, Partial fill upon patient request if [...] Gm, 0 Refills, Maintenance, 02/28/21 16:31:00 EDT, [place], [facility]/pharmacy #202, Partial fill upon patient request if [...] 11:23:00 EDT, Route to [facility] Electronically, [facility], 157, cm, 03/14/23 11:02:00 EDT, Height,145, kg, 08/29/22 20:13:00 EST, Dry Weight Start Date: 04/03/23 Status: Ordered gabapentin 300 mg oral capsule 600 mg, 2, capsule, By Mouth, 3 times a day, # 180 capsule, Refills 3, Tot. Refills 3, Maintenance,08/25/22 22:35:00 EST, Route to Pharmacy Electronically, [facility]/pharmacy #2025, Partial fill upon patient request if [...] Refills, Maintenance, 02/27/23 7:25:00 EDT, [facility], 157, cm, 12/08/22 14:27:00 EDT, Height, 145, kg, 08/29/22 20:13:00 EST, Dry... Start Date: 02/27/23 Status: Ordered levothyroxine 150 mcg (0.15 mg) oral tablet 1 tablet = 150 mcg, By Mouth, Daily, # 90 tablet, 0 Refills, Maintenance, 07/15/23 17:38:00 EST, Tablet, [facility]/pharmacy #2025, Partial fill upon patient request if [...] tablet, 0 Refills, Maintenance, 07/10/23 11:57:00 EST, [facility]/pharmacy #5, Partial fill upon patient request if [...] Code MRI Safety Implantable Status Assigning Authority [id number] 731 Unknown [id number] Unknown 08/26/24 Unknown Unknown Active GS1 Patient Care team information Care Team Personnel Name: Celestina Trinidad MD Position: S Physician - Primary Care Member Role: PCP Address: Address: [address] [place] [address], [place] [address]- Name: Hemalatha Lucas RN Position: [facility] RN Member Role: Primary Care Nurse Name: Lauren Mack RN Position: [facility] AMB Nurse Member Role: Primary Care Nurse Name: Madelaine Ruiz RN Position: [facility] RN Member Role: Primary Care Nurse Name: Lora Santiago RN Position: [facility] SN RN Member Role: Primary Care Nurse Name: Mayco Ro RN Position: [facility] RN Member Role: Primary Care Nurse Name: Heydi Potts RN Position: [facility] SN RN Member Role: Primary Care Nurse Name: Janice Romano LPN Position: [facility] RN Member Role: Primary Care Nurse Name: Nadya Low RN Position: [facility] RN Member Role: Primary Care Nurse Name: Mirna Greenfield RN Position: [facility] RN Member Role: Primary Care Nurse Name: Nessa Bonilla RN Position: [facility] Corporate Meeting Planner Member Role: Primary Care Nurse Care Team Related Persons Name: DINESH SARGENT Address: home [address] [place] [address] Name: BON DE Address: home [address] [place] [address]
--- OUTSIDE RECORDS SUMMARY | 2024-06-24 14:09 | XMS_ITS | Continuity of Care Document ---
Author Organization [facility] Address [address] [place] [address]- Care Team Providers Care Specialized Language Instructor Name Role Phone Vivi HENNING, Celestina Givens Primary Care Physician [place] [facility] [place]23 [facility] [address] [place] [address]- Attending Physician: Calixto Beltran Admitting Physician: Calixto Beltran Referring Physician: AdmtrCalixto Allergies, Adverse Reactions, Alerts No Known Allergies Immunizations Given and Recorded Vaccine Date Status Refusal Reason tetanus/diphtheria/pertussis, acel(Tdap) 1 08/21/22 Given tetanus/diphtheria/pertussis, acel(Tdap) 2 08/13/12 Given [id number] 12y+ bivalent booster vax 06/14/22 Recorded influenza [...] inactivated 6 07/31/12 Gi hali SARS-CoV-2 mRNA (dhkzxww-qjpg-fvrhb) vax 02/14/22 Recorded SARS-CoV-2 (COVID-19) mRNA BNT-162b2 vac 05/06/21 Given SARS-CoV-2 (COVID-19) mRNA BNT-162b2 vac 11/04/20 Recorded SARS-CoV-2 (COVID-19) mRNA BNT-162b2 vac 10/14/20 Recorded pneumococcal 23-valent vaccine 7 04/07/19 Given 1Result Comment: [facility]# [id number] 2Admin Note: VIM dated 08/22/11 GIVEN TODAY 3Result Comment: [facility][note 2]# 36997-998-17 4Result Comment: [05/25/2018] [facility] lot number [id number] exp 01/26/2019 [facility][note 2] 03241-517-73 5Result Comment: [08/20/2017] [facility][note 2] 69654-265-76 6Admin Note: VIM dated 01/29/12 GIVEN TODAY 7Result Comment: [facility]#[id number] Medications acetaminophen 500 mg oral capsule 2 [...] Stop, 04/10/2215:14:00 EDT, Route to Pharmacy Electronically, [id number], [facility]/pharmacy #2025, 158, cm, 04/10/22 14:56:00 EDT, Height, 143,... Start Date: 04/10/22 Status: Ordered Anoro Ellipta 62.5 mcg-25 mcg/inh inhalation powder 60 each, 0 Refill(s), INHALE 1 PUFF BY MOUTH DAILY, 0 Refills, 03/14/23 10:58:00 EDT, Partial fill upon patient request if the prescription is for a schedule II opioid drug. Start Date: 03/14/23 Status: Ordered cilostazol 100 mg oral tablet [...] 05/17/23 16:45:00 EDT, Route to Pharmacy Electronically, [facility]/pharmacy #2024, Partial fill upon patient request if the presc... Start Date: 05/17/23 Stop Date: 05/17/24 Status: Ordered diclofenac 1% topical gel See Instructions, APPLY TOPICALLY 4 TIMES A DAY, # 100 Gm, 1 Refills, Maintenance, 06/05/23 10:25:00 EST, [facility]/pharmacy #2024, 50, APPLY TOPICALLY 4 TIMES A DAY, 157.5, cm, 05/22/23 7:39:00 EDT, Height, 145.9, kg, 05/22/23 7:39:00 EDT, Dry Weight Start Date: 06/05/23 Status: Ordered Flonase 50 mcg/inh nasal spray See Instructions, 2 sprays Nares twice daily x 1 week, then once daily x 1-2 weeks until symptoms improve, # 16 Gm, 0 Refills, Maintenance, 02/28/21 16:31:00 EDT, [place], [facility]/pharmacy #202, Partial fill upon patient request if the prescription is for... Start Date: 02/28/21 Status: Ordered FLUoxetine 10 mg oral capsule 10 mg, 1, capsule, By Mouth, Daily, to be taken with 20mg capsules to equal 30mg daily, # 90 capsule, Refills 1, Tot. Refills 1, Maintenance, 04/03/23 11:25:00 EDT, Route to Pharmacy Electronically, [facility]/pharmacy #202, Partial fill upon patient reques... Start Date: 04/03/23 Status: Ordered FLUoxetine 20 mg oral capsule 1, capsule, By Mouth, Daily, # 90 capsule, Refills 1, Tot. Refills 1, Maintenance, 04/03/23 11:23:00 EDT, Route to Pharmacy Electronically, [facility]/pharmacy #2024, 157, cm, 03/14/23 11:02:00 EDT, Height,145, kg, 08/29/22 20:13:00 EST, Dry Weight Start Date: 04/03/23 Status: Ordered gabapentin 300 mg oral capsule 600 mg, 2, capsule, By Mouth, 3 times a day, # 180 capsule, Refills 3, Tot. Refills 3, Maintenance,08/25/22 22:35:00 EST, Route to Pharmacy Electronically, [facility]/pharmacy #202, Partial fill [...] Refills, Maintenance, 02/27/23 7:25:00 EDT, [facility], 157, cm, 12/08/22 14:27:00 EDT, Height, 145, kg, 08/29/22 20:13:00 EST, Dry... Start Date: 02/27/23 Status: Ordered meclizine 25 mg oral tablet See Instructions, PRN Dizziness, 1 tablet By Mouth 3 times a day, # 30 tablet, 0 Refills, Maintenance, 02/27/23 10:43:00 EDT, [facility]/pharmacy #2025, Partial fill upon patient request [...] may filll this prescription for fewer pills. [facility], # 20 tablet, Refills 0, Tot. [...] 16:30:00 EST, Aerosol, Route to Pharmacy Electronically, [id number], [facility]/pharmacy #2025, 157.5, cm, 05/22/23 7:39:00 EDT, Height... Start Date: 06/07/23 Status: Ordered traMADol 50 mg oral tablet See Instructions, 2 tab po qam and one tab po q pm prn moderate to severe pain. 28 days. mass pat ok, # 81 tablet, 0 Refills, Maintenance, 05/14/23 16:14:00 EDT, [facility]/pharmacy #5, 157, cm, 03/14/2311:02:00 EDT, Height, 145, kg, 08/29/22 20:13:00 E... Start Date: 05/14/23 Status: Ordered zolpidem 10 mg oral tablet 1 tablet = 10 mg, By Mouth, Daily at bedtime, PRN for sleep, for 30 days, # 30 tablet, 0 Refills, Acute 07/12/23 11:04:00 EST, 06/12/23 11:04:00 EST, Tablet, [facility]/pharmacy #2024, early refill for travel. Thanks., 157.5, [...] Code MRI Safety Implantable Status Assigning Authority [id number] 731 Unknown [id number] Unknown 08/26/24 Unknown Unknown Active GS1 Patient Care team information Care Team Personnel Name: Celestina Trinidad MD Position: [facility] Physician - Primary Care Member Role: PCP Address: Address: [address] [place] [address] Name: Hemalatha Lucas RN Position: [facility] RN Member Role: Primary Care Nurse Name: Lauren Mack RN Position: [facility] AMB Nurse Member Role: Primary Care Nurse Name: Madelaine Ruiz RN Position: [facility] RN Member Role: Primary Care Nurse Name: Lora Santiago RN Position: [facility] SN RN Member Role: Primary Care Nurse Name: Mayco Ro RN Position: [facility] RN Member Role: Primary Care Nurse Name: Heydi Potts RN Position: [facility] RN Member Role: Primary Care Nurse Name: Janice Romano LPN Position: [facility] RN Member Role: Primary Care Nurse Name: Nadya Low RN Position: [facility] RN Member Role: Primary Care Nurse Name: Mirna Greenfield RN Position: [facility] RN Member Role: Primary Care Nurse Name: Nessa Bonilla RN Position: [facility] Hospital Ball Assembler Member Role: Primary Care Nurse Care Team Related Persons Name: DINESH SARGENT Address: home [address] [place] [address] Name: BON DE Address: [address] [address]
--- OUTSIDE RECORDS SUMMARY | 2024-06-24 14:09 | XMS_ITS | Continuity of Care Document ---
Author Organization [facility] Address [address] [place] [address]- Care Team Providers Care Leather Heel Breaster Name Role Phone Vivi HENNING, Celestina Givens Primary Care Physician Encounter [facility] Date(s): 06/02/23 - 07/02/23 [facility] [address] [place] [address]- Allergies, Adverse Reactions, Alerts No Known Allergies Immunizations Given and Recorded Vaccine Date Status Refusal Reason tetanus/diphtheria/pertussis, acel(Tdap) 1 08/21/22 Given tetanus/diphtheria/pertussis, acel(Tdap) 2 08/13/12 Given [id number] 12y+ bivalent booster vax 06/14/22 Recorded influenza [...] inactivated 6 07/31/12 Gi hali SARS-CoV-2 mRNA (ycflwib-npzc-lifjy) vax 02/14/22 Recorded SARS-CoV-2 (COVID-19) mRNA BNT-162b2 vac 05/06/21 Given SARS-CoV-2 (COVID-19) mRNA BNT-162b2 vac 11/04/20 Recorded SARS-CoV-2 (COVID-19) mRNA BNT-162b2 vac 10/14/20 Recorded pneumococcal 23-valent vaccine 7 04/07/19 Given 1Result Comment: [facility]# 12582-622-64 2Admin Note: VIM dated 08/22/11 GIVEN TODAY 3Result Comment: [facility]# 69557-963-73 4Result Comment: [05/25/2018] [employer] lot number [id number] 01/26/2019 [facility] 66931-270-12 5Result Comment: [08/20/2017] [facility] 89551-265-05 6Admin Note: VIM dated 01/29/12 GIVEN TODAY 7Result Comment: [facility]#[id number] Medications acetaminophen 500 mg oral capsule 2 [...] Stop, 04/10/2215:14:00 EDT, Route to Pharmacy Electronically, [id number], [facility]/pharmacy #2025, 158, cm, 04/10/22 14:56:00 [...] 05/17/23 16:45:00 EDT, Route to Pharmacy Electronically, [facility]/pharmacy #2024, Partial fill upon patient request if the presc... Start Date: 05/17/23 Stop Date: 05/17/24 Status: Ordered diclofenac 1% topical gel See Instructions, APPLY TOPICALLY 4 TIMES A DAY, # 100 Gm, 1 Refills, Maintenance, 06/05/23 10:25:00 EST, [facility]/pharmacy #2024, 50, APPLY TOPICALLY 4 TIMES A DAY, 157.5, cm, 05/22/23 7:39:00 EDT, Height, 145.9, kg, 05/22/23 7:39:00 EDT, Dry Weight Start Date: 06/05/23 Status: Ordered Flonase 50 mcg/inh nasal spray See Instructions, 2 sprays Nares twice daily x 1 week, then once daily x 1-2 weeks until symptoms improve, # 16 Gm, 0 Refills, Maintenance, 02/28/21 16:31:00 EDT, [place], [facility]/pharmacy #2024, Partial fill upon patient request if the prescription is for... Start Date: 02/28/21 Status: Ordered FLUoxetine 10 mg oral capsule 10 mg, 1, capsule, By Mouth, Daily, to be taken with 20mg capsules to equal 30mg daily, # 90 capsule, Refills 1, Tot. Refills 1, Maintenance, 04/03/23 11:25:00 EDT, Route to Pharmacy Electronically, [facility]/pharmacy #2024, Partial fill upon patient reques... Start Date: 04/03/23 Status: Ordered FLUoxetine 20 mg oral capsule 1, capsule, By Mouth, Daily, # 90 capsule, Refills 1, Tot. Refills 1, Maintenance, 04/03/23 11:23:00 EDT, Route to Pharmacy Electronically, [facility]/pharmacy #2024, 157, cm, 03/14/23 11:02:00 EDT, Height,145, kg, 08/29/22 20:13:00 EST, Dry Weight Start Date: 04/03/23 Status: Ordered gabapentin 300 mg oral capsule 600 mg, 2, capsule, By Mouth, 3 times a day, # 180 capsule, Refills 3, Tot. Refills 3, Maintenance,08/25/22 22:35:00 EST, Route to Pharmacy Electronically, [facility]/pharmacy #2024, Partial fill upon patient [...] tablet, 2 Refills, Maintenance, 02/27/23 7:25:00 EDT, [facility] STORE [facility], 157, cm, 12/08/22 14:27:00 EDT, Height, 145, kg, 08/29/22 20:13:00 EST, Dry... Start Date: 02/27/23 Status: Ordered meclizine 25 mg oral tablet See Instructions, PRN Dizziness, 1 tablet By Mouth 3 times a day, # 30 tablet, 0 Refills, Maintenance, 02/27/23 10:43:00 EDT, [facility] Partial fill upon patient request [...] 0 Refills, Maintenance, 06/01/23 17:10:00 EDT, [facility], Partial fill upon patient [...] 16:30:00 EST, Aerosol, Route to Pharmacy Electronically, [id number], [facility]/pharmacy #2024, 157.5, cm, 05/22/23 7:39:00 EDT, Height... Start Date: 06/07/23 Status: Ordered traMADol 50 mg oral tablet See Instructions, 2 tab po qam and one tab po q pm prn moderate to severe pain. 28 days. mass pat ok, # 81 tablet, 0 Refills, Maintenance, 07/02/23 16:52:00 EST, [facility]/pharmacy #2024, 157.5, cm, 06/26/23 10:22:00 EST, Height, 145.9, kg, 05/22/23 7:39:0... Start Date: 07/02/23 Status: Ordered zolpidem 10 mg oral tablet 1 tablet = 10 mg, By Mouth, Daily at bedtime, PRN for sleep, for 30 days, # 30 tablet, 0 Refills, Acute 07/12/23 11:04:00 EST, 06/12/23 11:04:00 EST, Tablet, [facility]/pharmacy #2024, early refill for travel. Thanks., [...] Code MRI Safety Implantable Status Assigning Authority [id number] 731 Unknown [id number] Unknown 08/26/24 Unknown Unknown Active GS1 Patient Care team information Care Team Personnel Name: Celestina Trinidad MD Position: [facility] Physician - Primary Care Member Role: PCP Address: Address: [address] [place] [address] Name: Hemalatha Lucas RN Position: [facility] RN Member Role: Primary Care Nurse Name: Lauren Mack RN Position: [facility] AMB Nurse Member Role: Primary Care Nurse Name: Madelaine Ruiz RN Position: [facility] RN Member Role: Primary Care Nurse Name: Lora Santiago RN Position: [facility] SN RN Member Role: Primary Care Nurse Name: Mayco Ro RN Position: [facility] RN Member Role: Primary Care Nurse Name: Heydi Potts RN Position: [facility] RN Member Role: Primary Care Nurse Name: Janice Romano LPN Position: [facility] RN Member Role: Primary Care Nurse Name: Nadya Low RN Position: [facility] RN Member Role: Primary Care Nurse Name: Mirna Greenfield RN Position: [facility] RN Member Role: Primary Care Nurse Name: Nessa Bonilla RN Position: [facility] Hospital Die Attacher Member Role: Primary Care Nurse Care Team Related Persons Name: ROSETTA DINESH Address: [address] [place] [address] Name: BON DE Address: [address] [address]
--- OUTSIDE RECORDS SUMMARY | 2024-06-24 14:09 | XMS_ITS | Continuity of Care Document ---
Author Organization [facility] Address [address] [place] [address]- Care Team Providers Care Barber Shop Operator Name Role Phone Celestina Trinidad MD Primary Care Physician Encounter [facility] Date(s): 11/07/23 - 12/07/23 [facility] [address] [place] [address]- Allergies, Adverse Reactions, Alerts No Known Allergies [...] 08/21/22 Given tetanus/diphtheria/pertussis, acel(Tdap) 7 08/13/12 Given [id number] 12y+ bivalent booster vax 06/14/22 Recorded SARS-CoV-2 mRNA (didgenj-ayzy-yxpcc) vax 02/14/22 Recorded SARS-CoV-2 (COVID-19) mRNA BNT-162b2 vac 05/06/21 Given SARS-CoV-2 (COVID-19) mRNA BNT-162b2 vac 11/04/20 Recorded SARS-CoV-2 (COVID-19) mRNA BNT-162b2 vac 10/14/20 Recorded pneumococcal 23-valent vaccine 8 04/07/19 Given 1Result Comment: screening negative 2Result Comment: [facility] [place] 2]# [id number] 3Result Comment: [05/25/2018] seq[facility] lot number [id number] exp 01/26/2019 [facility] [place]note 2] 17430-846-60 4Result Comment: [08/20/2017] [facility] [place][note 2] [id number] 5Admin Note: VIM dated 01/29/12 GIVEN TODAY 6Result Comment: [facility]# [id number] 7Admin Note: VIM dated 08/22/11 GIVEN TODAY 8Result Comment: [facility]#[id number] Medications acetaminophen 500 mg oral capsule 2 [...] 1 Refills, Soft Stop, 12/06/23 17:28:00 EDT, [facility]/pharmacy #5, Partial fill upon patient request if [...] 05/17/23 16:45:00 EDT, Route to Pharmacy Electronically, [facility]/pharmacy #2024, Partial fill upon patient request if [...] Gm, 0 Refills, Maintenance, 02/28/21 16:31:00 EDT, [place], [facility]/pharmacy #2024, Partial fill upon patient request if the prescription is for... Start Date: 02/28/21 Status: Ordered FLUoxetine 10 mg oral capsule 10 mg, 1, capsule, By Mouth, Daily, to be taken with 20mg capsules to equal 30mg daily, # 90 capsule, Refills 1, Tot. Refills 1, Maintenance, 07/31/23 19:01:00 EST, Route to Pharmacy Electronically, [facility]/pharmacy #2024, Partial fill upon patient reques... Start Date: 07/31/23 Status: Ordered FLUoxetine 20 mg oral capsule 1, capsule, By Mouth, Daily, # 90 capsule, Refills 1, Tot. Refills 1, Maintenance, 07/31/23 19:01:00 EST, [facility], cm, 07/13/23 9:57:00 EST, Height, 145.9, kg, 05/22/23 7:39:00 EDT, Dry Weight Start Date: 07/31/23 Status: Ordered gabapentin 300 mg oral capsule 600 mg, 2, capsule, By Mouth, 3 times a day, # 180 capsule, Refills 3, Tot. Refills 3, Maintenance,08/25/22 22:35:00 EST, Route to Pharmacy Electronically, [facility]/pharmacy #2024, Partial fill upon patient request if [...] tablet, 0 Refills, Maintenance, 10/12/23 6:42:00 EDT, [facility]/pharmacy #2024, 157.5, cm, 07/13/23 9:57:00 EST, Height, [...] 5 Refills, Maintenance, 10/08/23 17:05:00 EDT, [facility], 157.5, cm, 07/13/23 9:57:00 EST, Height, 145.9, [...] Tot. Refills 0, Maintenance, Pain , Severe, 11/29/23 13:25:00EDT, [facility] to [facility]ically, [facility] Start Date: 11/29/23 Status: Ordered Splint See Instructions, # 1 [...] capsule, 1 Refills, Maintenance, 11/23/23 17:40:00 EDT,Capsule, [facility]/pharmacy #2024, Partial fill upon patient request if the prescription is for a schedule II opioid drug., 157.5, cm, 10/18/23 15:15:00 EDT,... Start Date: 11/23/23 Status: Ordered zolpidem 10 mg oral tablet 1 tablet = 10 mg, By Mouth, Daily at bedtime, # 30 tablet, 0 Refills, Maintenance, 11/05/23 16:28:00 EDT, [facility], Partial fill upon patient [...] Code MRI Safety Implantable Status Assigning Authority [id number] Unknown [id number] Unknown 08/26/24 Unknown Unknown Active GS1 Patient Care team information Care Team Personnel Name: Celestina Trinidad MD Position: [facility] Physician - Primary Care Member Role: PCP Address: Address: [address] [place] [address] Name: Hemalatha Lucas RN Position: [facility] RN Member Role: Primary Care Nurse Name: Lauren Mack RN Position: [facility] AMB Nurse Member Role: Primary Care Nurse Name: Madelaine Ruiz RN Position: [facility] RN Member Role: Primary Care Nurse Name: Lora Santiago RN Position: [facility] SN RN Member Role: Primary Care Nurse Name: Mayco Ro RN Position: [facility] RN Member Role: Primary Care Nurse Name: Heydi Potts RN Position: [facility] SN RN Member Role: Primary Care Nurse Name: Janice Romano LPN Position: [facility] RN Member Role: Primary Care Nurse Name: Nadya Low RN Position: [facility] RN Member Role: Primary Care Nurse Name: Mirna Greenfield RN Position: [facility] RN Member Role: Primary Care Nurse Name: Nessa Bonilla RN Position: [facility] Retail Operations Specialist Member Role: Primary Care Nurse Care Team Related Persons Name: ROSETTA DINESH Address: home [address] [place] [address] Name: BON DE Address: [address] [address]
--- OUTSIDE RECORDS SUMMARY | 2024-06-24 14:09 | XMS_ITS | Continuity of Care Document ---
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 Name Role Phone Vivi HENNING, Celestina Givens Primary Care Physician Encounter [facility] Date(s): 12/28/23 - 01/27/24 [facility] [address] [place] [address]- Allergies, Adverse Reactions, Alerts No Known Allergies [...] 08/21/22 Given tetanus/diphtheria/pertussis, acel(Tdap) 7 08/13/12 Given [id number] 12y+ bivalent booster vax 06/14/22 Recorded SARS-CoV-2 mRNA (ushocrj-lryk-xdvgk) vax 02/14/22 Recorded SARS-CoV-2 (COVID-19) mRNA BNT-162b2 vac 05/06/21 Given SARS-CoV-2 (COVID-19) mRNA BNT-162b2 vac 11/04/20 Recorded SARS-CoV-2 (COVID-19) mRNA BNT-162b2 vac 10/14/20 Recorded pneumococcal 23-valent vaccine 8 04/07/19 Given 1Result Comment: screening negative 2Result Comment: [facility]# [id number] 3Result Comment: [05/25/2018] [facility] lot number [id number] exp 01/26/2019 [facility] [id number] 4Result Comment: [08/20/2017] [facility] [id number] 5Admin Note: VIM dated 01/29/12 GIVEN TODAY 6Result Comment: [facility]# [id number] 7Admin Note: VIM dated 08/22/11 GIVEN TODAY 8Result Comment: [facility]#[id number] Medications acetaminophen 500 mg oral capsule 2 [...] 1 Refills, Soft Stop, 12/06/23 17:28:00 EDT, [facility]/pharmacy #5, Partial fill upon patient request [...] 05/17/23 16:45:00 EDT, Route to Pharmacy Electronically, [facility]/pharmacy #2024, Partial fill upon patient request if the presc... Start Date: 05/17/23 Stop Date: 05/17/24 Status: Ordered diclofenac 1% topical gel See Instructions, APPLY TO AFFECTED AREA 4 TIMES A DAY, # 100 Gm, 1 Refills, Maintenance, 11/07/23 7:48:00 EDT, [facility]/pharmacy #2024, 25, APPLY TO AFFECTED AREA [...] Gm, 0 Refills, Maintenance, 02/28/21 16:31:00 EDT, [place], [facility], Partial fill upon patient request if the prescription is for... Start Date: 02/28/21 Status: Ordered FLUoxetine 10 mg oral capsule 1, capsule, By Mouth, Daily, INSTR:TO BE TAKEN WITH 20MG CAPSULES TO EQUAL 30MG DAILY, # 90 capsule, Refills 1, Maintenance, 01/25/24 9:11:00 EDT, Route to Pharmacy Electronically, [facility], 157.5, cm, 01/22/24 10:31:00 EDT, Height, 145.9, kg,... Start Date: 01/25/24 Status: Ordered gabapentin 300 mg oral capsule 600 mg, 2, capsule, By Mouth, 3 times a day, # 180 capsule, Refills 3, Tot. Refills 3, Maintenance,08/25/22 22:35:00 EST, Route to Pharmacy Electronically, [facility]/pharmacy #2024, Partial fill upon patient request [...] Refills, Maintenance, 12/28/23 16:17:00 EDT, [facility], 157.5, cm, 10/18/23 15:15:00 EDT, Height, 145.9, [...] Maintenance, 01/22/24 11:02:00 EDT, [place] Table[place], [facility], Partial fill upon patient request if the prescription is for a schedule II opioid drug., 157.5, cm, 01/22/24 10:31:00 EDT, H... Start Date: 01/22/24 Status: Ordered oxyCODONE 5 mg oral tablet 5 mg, 1, tablet, By Mouth, Every 4 hours, PRN, you may filll this prescription for fewer pills[facility], Refills 0, Tot. [...] 0 Refills, Maintenance, 01/08/24 17:06:00 EDT, [facility], Partial fill upon patient [...] Code MRI Safety Implantable Status Assigning Authority [id number] 731 Unknown [id number] Unknown 08/26/24 Unknown Unknown Active GS1 Patient Care team information Care Team Personnel Name: Celestina Trinidad MD Position: [facility] Physician - Primary Care Member Role: PCP Address: Address: [address] [place] [address] Name: Hemalatha Lucas RN Position: [facility] RN Member Role: Primary Care Nurse Name: Lauren Mack RN Position: [facility] AMB Nurse Member Role: Primary Care Nurse Name: Madelaine Ruiz RN Position: [facility] RN Member Role: Primary Care Nurse Name: Lora Santiago RN Position: [facility] SN RN Member Role: Primary Care Nurse Name: Mayco Ro RN Position: [facility] RN Member Role: Primary Care Nurse Name: Heydi Potts RN Position: [facility] SN RN Member Role: Primary Care Nurse Name: Janice Romano LPN Position: [facility] RN Member Role: Primary Care Nurse Name: Nadya Low RN Position: [facility] RN Member Role: Primary Care Nurse Name: Mirna Greenfield RN Position: [facility] RN Member Role: Primary Care Nurse Name: Nessa Bonilla RN Position: [facility] Doctor Assistant Member Role: Primary Care Nurse Care Team Related Persons Name: DINESH SARGENT Address: home [address] [place] [address] Name: BON DE Address: home [address] [address]
--- OUTSIDE RECORDS SUMMARY | 2024-06-24 14:09 | XMS_ITS | Continuity of Care Document ---
Author Organization [facility] Address [address] [place] [address]- Care Team Providers Care Spring Tacker Name Role Phone Celestina Trinidad MD Primary Care Physician Encounter [facility] Date(s): 10/08/23 - 11/07/23 [facility] [address] [place] [address]- Allergies, Adverse Reactions, Alerts No Known Allergies [...] 08/21/22 Given tetanus/diphtheria/pertussis, acel(Tdap) 7 08/13/12 Given [id number] 12y+ bivalent booster vax 06/14/22 Recorded SARS-CoV-2 mRNA (qumkyfj-jjei-igcjx) vax 02/14/22 Recorded SARS-CoV-2 (COVID-19) mRNA BNT-162b2 vac 05/06/21 Given SARS-CoV-2 (COVID-19) mRNA BNT-162b2 vac 11/04/20 Recorded SARS-CoV-2 (COVID-19) mRNA BNT-162b2 vac 10/14/20 Recorded pneumococcal 23-valent vaccine 8 04/07/19 Given 1Result Comment: screening negative 2Result Comment: [facility]# [id number] 3Result Comment: [05/25/2018] seq[facility] lot number [id number] exp 01/26/2019 [facility] [id number] 4Result Comment: [08/20/2017] [facility] 93134-417-28 5Admin Note: VIM dated 01/29/12 GIVEN TODAY 6Result Comment: [facility]# [id number] 7Admin Note: VIM dated 08/22/11 GIVEN TODAY 8Result Comment: [facility]#[id number] Medications acetaminophen 500 mg oral capsule 2 [...] 05/17/23 16:45:00 EDT, Route to Pharmacy Electronically, [facility]/pharmacy #2024, Partial fill upon patient request if the presc... Start Date: 05/17/23 Stop Date: 05/17/24 Status: Ordered diclofenac 1% topical gel See Instructions, APPLY TO AFFECTED AREA 4 TIMES A DAY, # 100 Gm, 1 Refills, Maintenance, 11/07/23 7:48:00 EDT, [facility]/pharmacy #2024, 25, APPLY TO AFFECTED AREA [...] Gm, 0 Refills, Maintenance, 02/28/21 16:31:00 EDT, [place], [facility], Partial fill upon patient request [...] 07/31/23 19:01:00 EST, Route to Pharmacy Electronically, [facility]/pharmacy #2024, 157.5, cm, 07/13/23 9:57:00 EST, Height, 145.9, kg, 05/22/23 7:39:00 EDT, Dry Weight Start Date: 07/31/23 Status: Ordered gabapentin 300 mg oral capsule 600 mg, 2, capsule, By Mouth, 3 times a day, # 180 capsule, Refills 3, Tot. Refills 3, Maintenance,08/25/22 22:35:00 EST, [facility] fill upon patient request [...] tablet, 0 Refills, Maintenance, 10/12/23 6:42:00 EDT, [facility]/pharmacy #2024, 157.5, cm, 07/13/23 9:57:00 EST, Height, 145.9, kg, 05/22/23 7:39:00 EDT, Dry Weight Start Date: 10/12/23 Status: Ordered meclizine 25 mg oral tablet See Instructions, PRN Dizziness, 1 tablet By Mouth 3 times a day, # 30 tablet, 0 Refills, Maintenance, 02/27/23 10:43:00 EDT, [facility]/pharmacy #2024, Partial fill upon patient request if the prescriptionis for a schedule II opioid drug., 157, cm, ... Start Date: 02/27/23 Status: Ordered meloxicam 15 mg oral tablet See Instructions, TAKE 1 TABLET BY MOUTH DAILY WITH FOOD., # 30 tablet, 5 Refills, Maintenance, 10/08/23 17:05:00 EDT, [facility]/pharmacy #2024, 157.5, cm, 07/13/23 9:57:00 EST, Height, 145.9, kg, :39:00 EDT, Dry Weight Start Date: 10/08/23 Status: Ordered metFORMIN 500 mg oral tablet, extended release 1 tablet = 500 mg, By Mouth, Daily, # 90 tablet, 1 Refills, Maintenance, 10/24/23 11:39:00 EDT, ER Tablet, [facility]/pharmacy #2024, Partial fill upon patient request [...] 1 Refills, Maintenance, 07/15/23 17:38:00 EST, Capsule, [facility]/pharmacy #2024, Partial fill upon patient request if the prescription is for a schedule II opioid drug., 157.5, cm, 07/13/23 9:57:00 EST, He... Start Date: 07/15/23 Status: Ordered zolpidem 10 mg oral tablet 1 tablet = 10 mg, By Mouth, Daily at bedtime, # 30 tablet, 0 Refills, Maintenance, 11/05/23 16:28:00 EDT, [facility]/pharmacy #2025, Partial fill upon patient request [...] Code MRI Safety Implantable Status Assigning Authority [id number] 731 Unknown [id number] Unknown 08/26/24 Unknown Unknown Active GS1 Patient Care team information Care Team Personnel Name: Celestina Trinidad MD Position: S Physician - Primary Care Member Role: PCP Address: Address: [address] [place] [address] Name: Hemalatha Lucas RN Position: [facility] RN Member Role: Primary Care Nurse Name: Lauren Mack RN Position: [facility] AMB Nurse Member Role: Primary Care Nurse Name: Madelaine Ruiz RN Position: [facility] RN Member Role: Primary Care Nurse Name: Lora Santiago RN Position: [facility] SN RN Member Role: Primary Care Nurse Name: Mayco Ro RN Position: [facility] RN Member Role: Primary Care Nurse Name: Heydi Potts RN Position: [facility] SN RN Member Role: Primary Care Nurse Name: Janice Romano LPN Position: [facility] RN Member Role: Primary Care Nurse Name: Nadya Low RN Position: [facility] RN Member Role: Primary Care Nurse Name: Mirna Greenfield RN Position: [facility] RN Member Role: Primary Care Nurse Name: Nessa Bonilla RN Position: [facility] Vice President Risk Management Member Role: Primary Care Nurse Care Team Related Persons Name: DINESH SARGENT Address: home [address] [place] [address] Name: BON DE Address: home [address] [place] [address]
--- OUTSIDE RECORDS SUMMARY | 2024-06-24 14:09 | XMS_ITS | Continuity of Care Document ---
Author Organization [facility] Address [address] [place] [address]- Care Team Providers Care Wax Machine Operator Name Role Phone Florentino AHN, Elder Hannah Primary Care Physician Encounter [facility] Date(s): 08/17/20 - 09/16/20 [facility] [address] [place] [address]- Allergies, Adverse Reactions, Alerts Substance Reaction Severity [...] 6 08/13/12 Given 1Result Comment: [facility]# [id number] 2Result Comment: [05/25/2018] [facility] lot number [id number] exp 01/26/2019 [facility] 71175-364-25 3Result Comment: [08/20/2017] [facility] 56171-509-66 4Admin Note: VIM dated 01/29/12 GIVEN TODAY 5Result Comment: [facility]#[id number] 6Admin Note: VIM dated 08/22/11 GIVEN TODAY [...] 6 HOURS NEEDED FOR WHEEZE, [facility]/pharmacy #2024 Start Date: 05/27/19 Status: Ordered diclofenac 1% topical gel See Instructions, APPLY TOPICALLY 4 TIMES A DAY, # 100 Gm, 0 Refills, Maintenance, [facility], APPLY TOPICALLY 4 TIMES A DAY, 161, cm, 06/08/20 13:48:00 EST, Height Start Date: 07/12/20 Status: Ordered FLUoxetine 20 mg oral capsule 20 mg, 1, capsule, By Mouth, Daily, # 30 capsule, Refills 5, Tot. Refills 5, Maintenance, 05/13/20 9:34:00 EDT, Route to Pharmacy Electronically, [facility]/pharmacy #2024, replacing 10mg dose, 161, cm, 05/13/20 8:28:00 EDT, Height Start Date: 05/13/20 Status: Ordered levothyroxine 0.137 mg oral tablet See Instructions, Take 1 tablet by mouth on days 1-6, then take 2 tablets by mouth on day 7, # 121 tablet, 1 Refills, Maintenance, 08/31/20 7:32:00 EST, [facility]/pharmacy #2024, 161, cm, 08/18/20 15:29:00EST, Height Start Date: 08/31/20 Status: Ordered meloxicam 15 mg oral tablet 1 tablet, By Mouth, Daily, WITH FOOD., # 30 tablet, 1 Refills, Maintenance, 08/30/20 7:37:00 EST, [facility] STORE [facility], 161, cm, 08/18/20 15:29:00 EST, Height Start [...] EST, Route to Pharmacy Electronically, [facility]/pharmacy #5, 161, cm, 08/04/19 14:44:00 EST, Height Start Date: 08/04/19 Stop Date: 08/18/19 Status: Ordered traMADol 50 mg oral tablet 2 tablet = 100 mg, By Mouth, Every 12 hours, for 30 days, as needed for pain masspat checked, # 120tablet, 2 Refills, Hard Stop 11/15/20 16:20:00 EDT, 08/17/20 16:20:00 EST, [facility]/pharmacy #5, 161,cm, 06/08/20 13:48:00 EST, Height Start Date: 08/17/20 Stop Date: 11/15/20 Status: Ordered traMADol 50 mg oral tablet 2 tablet = 100 mg, By Mouth, Every 12 hours, as needed for pain masspat checked, # 120 tablet, 2 Refills, Maintenance, 09/13/20 16:54:00 EST, [facility]/pharmacy #5, 161, cm, 08/18/20 15:29:00 EST, Height Start Date: 09/13/20 Stop Date: 12/12/20 Status: Ordered zolpidem 10 mg oral tablet 1 tablet = 10 mg, By Mouth, Daily at bedtime, PRN for sleep, for 30 days, masspat check may fill less, # 30 tablet, 3 Refills, Acute 01/14/21 9:22:00 EDT, 09/16/20 9:22:00 EST, Tablet, [facility]/pharmacy #5, 161, cm, 08/18/20 15:29:00 EST, Height Start Date: 09/16/20 Stop Date: 01/14/21 Status: Ordered zolpidem 10 mg oral tablet 1 tablet = 10 mg, By Mouth, Daily at bedtime, PRN for sleep, for 30 days, masspat check may fill less, # 30 tablet, 3 Refills, Acute 01/08/21 9:34:00 EDT, 09/10/20 9:34:00 EST, Tablet, [facility]/pharmacy #5, 161, cm, 08/18/20 15:29:00 EST, [...]
--- OUTSIDE RECORDS SUMMARY | 2024-06-24 14:09 | XMS_ITS | Continuity of Care Document ---
Author Organization [facility] Address [address] [place] [address]- Care Team Providers Care Gauger Chief Name Role Phone Noe AHN, Mónica Graham Primary Care Physician Unava ilable Encounter [facility] Date(s): 01/05/22 - 02/04/22 [facility] [address] [place] [address]- Allergies, Adverse Reactions, Alerts No Known Allergies [...] tetanus/diphtheria/pertussis, acel(Tdap) 6 08/13/12 Given 1Result Comment: [facility]# [id number] 2Result Comment: [05/25/2018] [facility] lot number [id number] exp 01/26/2019 [facility] 54974-454-25 3Result Comment: [08/20/2017] [facility] [id number] 4Admin Note: VIM dated 01/29/12 GIVEN TODAY 5Result Comment: [facility]#[id number] 6Admin Note: VIM dated 08/22/11 GIVEN TODAY [...] free 90 mcg/inh inhalation aerosol See Instructions, PRN, 2 puffs Inhalation Every 4 tp 6 hours prn SOB, cough, wheezing - may use with spacer, # 8.5 Gm, Refills 2, Tot. Refills 2, Soft Stop, 01/02/22 15:25:00 EDT, Instructions Replace Required Details, Route to Pharmacy Electronically... Start Date: 01/02/22 Status: Ordered Anoro Ellipta 62.5 mcg-25 mcg/inh inhalation powder 1 puffs, Inhalation, Daily, # 1 each, 3 Refills, Maintenance, 01/02/22 15:20:00 EDT, [place], [facility], Partial fill upon patient request if the prescription is for a schedule II opioid drug., 1 puffs Inhalation Daily,x30 days, 160.02, cm, 06... Start Date: 01/02/22 Stop Date: 05/02/22 Status: Ordered diclofenac 1% topical gel See [...] Gm, 0 Refills, Maintenance, 02/28/21 16:31:00 EDT, [place], [facility]/pharmacy #2024, Partial fill upon patient request if the prescription is for... Start Date: 02/28/21 Status: Ordered FLUoxetine 20 mg oral capsule 20 mg, 1, capsule, By Mouth, Daily, Take with Fluoxetine 10mg for a total of 30mg, # 90 capsule, Refills 1, Tot. Refills 1, Maintenance, 12/30/21 12:34:00 EDT, Route to Pharmacy Electronically, [facility]/pharmacy #202, replacing 10mg dose, 160.02, cm, 10/28... Start Date: 12/30/21 Status: Ordered levothyroxine 0.137 mg oral tablet See Instructions, TAKE 1 TABLET BY MOUTH ON DAYS 1-6, THEN TAKE 2 TABLETS BY MOUTH ON DAY 7, # 96 tablet, 1 Refills, [facility] STORE 45406, 160.02, cm, 10/04/21 10:38:00 EST, Height, 143, kg, 01/04/21 10:42:00 EDT, Dry Weight Start Date: 11/08/21 Status: Ordered meclizine 25 mg oral tablet See Instructions, PRN Dizziness, 1 tablet By Mouth 3 times a day, # 30 tablet, 0 Refills, Maintenance, 05/11/21 13:11:00 EDT, [facility]/pharmacy #202, Partial fill upon patient request if the prescriptionis for a schedule II opioid drug., 160.02, cm, 0... Start Date: 05/11/21 Status: Ordered meloxicam 15 mg oral tablet 1 tablet, By Mouth, Daily, WITH FOOD., # 30 tablet, 3 Refills, 09/19/21 12:46:00 EST, [facility]/pharmacy #202, 160.02, cm, 07/25/21 16:20:00 EST, Height, 143, [...] pain, # 81 tablet, 0 Refills, Maintenance, 01/12/22 11:47:00 EDT, [facility], 160.02, cm, 01/12/22 11:09:00 EDT, Height, 143, kg, 01/04/21 10:42:00 EDT, Dry Weight Start Date: 01/12/22 Status: Ordered Problem List Condition Effective Dates [...]
--- OUTSIDE RECORDS SUMMARY | 2024-06-24 14:09 | XMS_ITS | Continuity of Care Document ---
Author Organization [facility] ter Address [address] [place] [id number]- Care Team Providers Care Custom Shop Worker Name Role Phone Celestina Trinidad MD Primary Care Physician Encounter [facility] Date(s): 07/22/22 - 07/23/[address] [address]- Encounter Diagnosis Cellulitis of right finger(Final) - 07/23/22 Discharge Disposition: A-D/C Home Attending Physician: Wil Livingston MD Admitting Physician: Wil Livingston MD Referring Physician: Not on Staff, Referring MD Allergies, Adverse Reactions, Alerts No Known Allergies Immunizations Given and Recorded Vaccine Date Status Refusal Reason [id number] 12y+ bivalent booster vax 06/14/22 Recorded influenza [...] virus vaccine, inactivated 4 07/31/12 Gi hali SARS-CoV-2 mRNA (pjeuyvp-beqw-lypae) vax 02/14/22 Recorded SARS-CoV-2 (COVID-19) mRNA BNT-162b2 vac 05/06/21 Given SARS-CoV-2 (COVID-19) mRNA BNT-162b2 vac 11/04/20 Recorded SARS-CoV-2 (COVID-19) mRNA BNT-162b2 vac 10/14/20 Recorded pneumococcal 23-valent vaccine 5 04/07/19 Given tetanus/diphtheria/pertussis, acel(Tdap) 6 08/13/12 Given 1Result Comment: [facility]# [id number] 2Result Comment: [05/25/2018] [facility] lot number [id number] exp 01/[facility]/2019 [facility] [id number] 3Result Comment: [08/20/2017] [facility] [id number] 4Admin Note: VIM dated 01/29/12 GIVEN TODAY 5Result Comment: [facility]#[id number] 6Admin Note: VIM dated 08/22/11 GIVEN TODAY [...] Stop, 04/10/2215:14:00 EDT, Route to Pharmacy Electronically, [id number], [facility]/pharmacy #2025, 158, cm, 04/10/22 14:56:00 EDT, Height, 143,... Start Date: 04/10/22 Status: Ordered amLODIPine 10 mg oral tablet 1 tablet, By Mouth, Daily, # 90 tablet, 0 Refills, Maintenance, 07/21/22 17:34:00 EST, [facility], 158, cm, 07/21/22 15:09:00 EST, Height, 143, kg, 01/04/21 10:42:00 EDT, Dry Weight Start Date: 07/21/22 Status: Ordered Anoro Ellipta 62.5 mcg-25 mcg/inh inhalation powder 1 puffs, By Mouth, Daily, # 1 each, 6 Refills, Maintenance, 05/11/22 13:00:00 EDT, Powder, [facility], Partial fill upon patient request if [...] opioid drug. Start Date: 07/03/22 Status: Ordered Compression Stockings See Instructions, # [...] Gm, 1 Refills, 09/19/21 12:51:00 EST, [facility], 25, APPLY TOPICALLY 4 TIMES A DAY, 160.02, cm, 07/25/21 16:20:00 EST, Height, 143, kg,01/04/21 10:42:00 EDT, Dry Weight Start Date: 09/19/21 Status: Ordered doxycycline hyclate 100 mg oral tablet 1 tablet = 100 mg, By Mouth, 2 times a day, for 10 days, # 20 tablet, 0 Refills, Acute 08/02/22 1:51:00 EST, 07/23/22 1:51:00 EST, Capsule, [facility], Partial fill upon patient request if the prescription is for a schedule II opioid drug., 15... Start Date: 07/23/22 Stop Date: 08/02/22 Status: Ordered doxycycline hyclate 100 mg oral tablet 1 tablet, By Mouth, 2 times a day, # 20 tablet, 0 Refills, Maintenance, 07/21/22 17:34:00 EST, [facility], 158, cm, 07/21/22 15:09:00 EST, Height, 143, kg, 01/04/21 10:42:00 EDT, Dry Weight Start Date: 07/21/22 Stop Date: 07/31/22 Status: Ordered Flonase 50 mcg/inh nasal spray See Instructions, 2 sprays Nares twice daily x 1 week, then once daily x 1-2 weeks until symptoms improve, # 16 Gm, 0 Refills, Maintenance, 02/28/21 16:31:00 EDT, [place], [facility]/pharmacy #2025, Partial fill upon patient request if the prescription is for... Start Date: 02/28/21 Status: Ordered FLUoxetine 20 mg oral capsule See Instructions, TAKE 1 CAPSULE BY MOUTH EVERY DAY, # 90 capsule, Refills 1, Maintenance, 06/13/2215:26:00 EST, Instructions Replace Required Details, Route to Pharmacy Electronically, [facility], 158, cm, 06/09/22 11:21:00 EST, Height, 143, kg... Start Date: 06/13/22 Status: Ordered gabapentin 300 mg oral capsule 600 mg, 2, capsule, By Mouth, 2 times a day, # 120 capsule, Refills 1, Tot. Refills 1, Maintenance,07/22/22 8:06:00 EST, Route to Pharmacy Electronically, [facility]/pharmacy #2025, Partial fill upon patient request [...] 96 tablet, 0 Refills, 06/29/22 15:47:00 EST, [facility]/pharmacy #202, 158, cm,06/09/22 11:21:00 EST, Height, 143, kg, 01/04/21 1... Start Date: 06/29/22 Status: Ordered meclizine 25 mg oral tablet See Instructions, PRN Dizziness, 1 tablet By Mouth 3 times a day, # 30 tablet, 0 Refills, Maintenance, 05/11/21 13:11:00 EDT, [facility]/pharmacy #202, Partial fill upon patient request if the prescriptionis for a schedule II opioid drug., 160.02, cm, 100... Start Date: 05/11/21 Status: Ordered meloxicam 15 mg oral tablet See Instructions, TAKE 1 TABLET BY MOUTH DAILY WITH FOOD. LABS NEEDED FOR FURTHER REFILLS, # 30 tablet, 3 Refills, Maintenance, 07/17/22 19:56:00 EST, [facility]/pharmacy #2024, 158, cm, 07/13/22 13:46:00 EST, Height, 143, kg, 01/04/21 10:42:00 EDT, Dry Weight Start Date: 07/17/22 Status: Ordered oxyCODONE 10 mg oral tablet 1 tablet = 10 mg, By Mouth, Every 6 hours, PRN as needed for pain, # 20 tablet, 0 Refills, Acute 08/04/22 9:15:00 EST, 07/21/22 9:15:00 EST, Tablet, [facility]/pharmacy #202, Partial fill upon patient request if the prescription is for a schedule II opioid... Start Date: 07/21/22 Stop Date: 08/04/22 Status: Ordered oxyCODONE 5 mg oral tablet 5 mg, 1, tablet, By Mouth, Every 6 hours, Refills 0, Tot. Refills 0, Maintenance, 07/03/22 13:46:00EST, Partial fill upon patient request if the prescription is for a schedule II opioid drug. Start Date: 07/03/22 Status: Ordered Splint See Instructions, # 1 each, Maintenance, left wrist short cock-up splint, 01/08/20 14:28:00 EDT, Supply Start Date: 01/08/20 Status: Ordered traMADol 50 mg oral tablet See Instructions, 2 tab po qam and one tab po q pm prn moderate to severe pain, # 81 tablet, 0 Refills, Maintenance, 07/11/22 17:21:00 EST, [facility], 158, cm, 07/07/22 11:19:00 EST, Height,143, kg, [...] Mild persistent asthma without complication Confirmed Active Results Radiology Reports * Exam Date Time Procedure Performing Provider Status 07/23/22 1:26 AM Finger 2nd Right Hand Melisa Farmer; Auth (Verified) Notes: (Finger 2nd Right Hand) Reason For Exam: Infection RESULT: Finger 2nd Right Hand Finger 2nd Right Hand, 3 views Hx of Present Illness: pt presents to the ED stating I need to get iv abx for my R index finger. ;Reason: Infection; Clinical Question(s): Osteomyelitis COMPARISON: 03/16/2020. FINDINGS: No fractures or bone lesions. Again demonstrated extensive osteoarthritic changes at the first carpometacarpal joint. There is soft tissue swelling at the second digit. IMPRESSION: Soft tissue swelling without evidence of underlying bone pathology. WSN: [id number] Ordering Physician: Doyle Rowland Dictated By: Tangela Lopez MD Dictated Date/Time: 07/23/22 4:53 am Reviewed By: Tangela Lopez MD Signed By: Tangela Lopez MD Signed Date/Time: 07/23/22 4:53 am Transcribed By: ARGENTINA Transcribed Date/Time: 07/23/22 4:51 am Vital Signs Most recent to oldest [Reference Range]: 1 2 Height 159 cm (07/22/22 10:24 PM) 159 cm (07/22/22 10:15 PM) Oxygen Saturation [94-100 %] 99 % (07/23/22 2:09 AM) 98 % (07/22/22 10:15 PM) Pulse Rate [55-90 bpm] 82 bpm (07/23/22 2:09 AM) 97 bpm *H* (07/22/22 10:15 PM) Blood Pressure [90-138/55-84 mm Hg] 145/ 86mm Hg *H* (07/23/22 2:09 AM) 159/97mm Hg *H* (07/22/22 10:15 PM) Respiratory Rate [16-30 br/min] 18 br/mi n (07/23/22 2:09 AM) 18 br/min (07/22/22 10:15 PM) Temperature [96.8-100.4 DegF] 97.3 DegF (07/22/22 10:15 PM) Mode of Delivery (Oxygen) Room air (07/23/22 2:09 AM) Room air (07/22/22 10:15 PM) Blood pressure sites Arm, left (07/23/22 2:09 AM) Arm, left (07/22/22 10:15 PM) Temperature Route Oral (07/22/22 10:15 PM) Social History Social History Type Response Smoking Status Former smoker, quit more than 30 days ago; Other: smoked up to pack a day x 25 years; entered on: 11/14/21 Sex XR Finger second - right Views * [facility] , CIS S: TRANSCRIBE Tangela Lopez MD: VERIFY Event Display: Result: Authored Date: [id number] Finger 2nd Right Hand, 3 views Hx of Present Illness: pt presents to the ED stating I need to get iv abx for my R index finger. ;Reason: Infection; Clinical Question(s): Osteomyelitis COMPARISON: 03/16/2020. FINDINGS: No fractures or bone lesions. Again demonstrated extensive osteoarthritic changes at the first carpometacarpal joint. There is soft tissue swelling at the second digit. IMPRESSION: Soft tissue swelling without evidence of underlying bone pathology. WSN: [id number] Ordering Physician: Doyle Rowland Dictated By: Tangela Lopez MD Dictated Date/Time: 07/23/22 4:53 am Reviewed By: Tangela Lopez MD Signed By: Tangela Lopez MD Signed Date/Time: 07/23/22 4:53 am Transcribed By: CSBrayan Transcribed Date/Time: 07/23/22 4:51 am Patient Care team information Care Team Personnel Name: Celestina Trinidad MD Position: [facility] Primary Care Physician Member Role: PCP Address: Address: [address] [place] [address]- Name: Lauren Mack RN Position: [facility] AMB Nurse Member Role: Primary Care Nurse Name: Lora Santiago RN Position: [facility] SN RN Member Role: Primary Care Nurse Name: Mayco Ro RN Position: [facility] RN Member Role: Primary Care Nurse Name: Heydi Potts RN Position: [facility] RN Member Role: Primary Care Nurse Name: Nadya Low RN Position: [facility] RN Member Role: Primary Care Nurse Name: Mirna Greenfield RN Position: [facility] RN Member Role: Primary Care Nurse Name: Nessa Bonilla RN Position: [facility] Hospital Ultrasound Coordinator Member Role: Primary Care Nurse Name: Jailyn Mejía RN Position: [facility] ED RN W/OE and Tasks Member Role: Patient Care Provider Name: Wil Livingston MD Position: [facility] Resident Member Role: ED Attending Physician Address: Address: [address] [place] [address]- Name: Doyle Rowland DO Position: [facility] Resident Member Role: ED Resident Address: Address: [address] [place] [address]- Care Team Related Persons Name: DINESH SARGENT Address: home [address] [place] [address] Name: BON DE Address: home [address] [address]
--- OUTSIDE RECORDS SUMMARY | 2024-06-24 14:09 | XMS_ITS | Continuity of Care Document ---
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 Name Role Phone Vivi HENNING, Celestina Givens Primary Care Physician [facility] Date[facility]): 07[facility]22 - 08/04/22 [facility] [address] [place] [address]- Allergies, Adverse Reactions, Alerts No Known Allergies Immunizations Given and Recorded Vaccine Date Status Refusal Reason [id number] 12y+ bivalent booster vax 06/14/22 Recorded influenza [...] inactivated 4 07/31/12 Gi hali SARS-CoV-2 mRNA (icprlxz-qkin-vmcof) vax 02/14/22 Recorded SARS-CoV-2 (COVID-19) mRNA BNT-162b2 vac 05/06/21 Given SARS-CoV-2 (COVID-19) mRNA BNT-162b2 vac 11/04/20 Recorded SARS-CoV-2 (COVID-19) mRNA BNT-162b2 vac 10/14/20 Recorded pneumococcal 23-valent vaccine 5 04/07/19 Given tetanus/diphtheria/pertussis, acel(Tdap) 6 08/13/12 Given 1Result Comment: [facility]# [id number] 2Result Comment: [05/25/2018] [facility] lot number [id number] exp 01/26/[address] [facility] [id number] 3Result Comment: [08/20/2017] [facility] [id number] 4Admin Note: VIM dated 01/29/12 GIVEN TODAY 5Result Comment: [facility]#[id number] 6Admin Note: VIM dated 08/22/11 GIVEN TODAY [...] Stop, 04/10/2215:14:00 EDT, Route to Pharmacy Electronically, [id number], [facility]/pharmacy #2025, 158, cm, 04/10/22 14:56:00 EDT, Height, 143,... Start Date: 04/10/22 Status: Ordered amLODIPine 10 mg oral tablet 1 tablet, By Mouth, Daily, # 90 tablet, 0 Refills, Maintenance, 07/21/22 17:34:00 EST, [facility], 158, cm, 07/21/22 15:09:00 EST, Height, 143, kg, 01/04/21 10:42:00 EDT, Dry Weight Start Date: 07/21/22 Status: Ordered Anoro Ellipta 62.5 mcg-25 mcg/inh inhalation powder 1 puffs, By Mouth, Daily, # 1 each, 6 Refills, Maintenance, 05/11/22 13:00:00 EDT, Powder, [facility], Partial fill upon patient request if [...] 0 Refills, Maintenance, 08/01/22 16:58:00 EST, Tablet, [facility]/pharmacy #202, Partial fill upon patient request [...] 100 Gm, 1 Refills, 09/19/21 12:51:00 EST, [facility]/pharmacy #2025, 25, APPLY TOPICALLY 4 TIMES A DAY, 160.02, cm, 07/25/21 16:20:00 EST, Height, 143, kg,01/04/21 10:42:00 EDT, Dry Weight Start Date: 09/19/21 Status: Ordered doxycycline hyclate 100 mg oral tablet 1 tablet, By Mouth, 2 times a day, # 20 tablet, 0 Refills, Maintenance, 07/21/22 17:34:00 EST, [facility], 158, cm, 07/21/22 15:09:00 EST, Height, 143, kg, 01/04/21 10:42:00 EDT, Dry Weight Start Date: 07/21/22 Stop Date: 07/31/22 Status: Ordered Flonase 50 mcg/inh nasal spray See Instructions, 2 sprays Nares twice daily x 1 week, then once daily x 1-2 weeks until symptoms improve, # 16 Gm, 0 Refills, Maintenance, 02/28/21 16:31:00 EDT, [place], [facility]/pharmacy #202, Partial fill upon patient request if the prescription is for... Start Date: 02/28/21 Status: Ordered FLUoxetine 20 mg oral capsule See Instructions, TAKE 1 CAPSULE BY MOUTH EVERY DAY, # 90 capsule, Refills 1, Maintenance, 06/13/2215:26:00 EST, Instructions Replace Required Details, Route to Pharmacy Electronically, [facility], 158, cm, 06/09/22 11:21:00 EST, Height, 143, kg... Start Date: 06/13/22 Status: Ordered gabapentin 300 mg oral capsule 600 mg, 2, capsule, By Mouth, 2 times a day, # 120 capsule, Refills 1, Tot. Refills 1, Maintenance,07/22/22 8:06:00 EST, Route to Pharmacy Electronically, [facility]/pharmacy #2024, Partial fill upon patient request if the prescription is for a schedule II... Start Date: 07/22/22 Status: Ordered levothyroxine 0.137 mg oral tablet 1 tablet = 137 mcg, By Mouth, Daily, 1 tab on days 1-6, take 2 tabs on day 7, # 102 tablet, 1 Refills, Maintenance, 07/03/22 14:41:00 EST, Tablet, [facility]/pharmacy #202, Partial fill upon patient request if the prescription is for a schedule II opioid dr... Start Date: 07/03/22 Status: Ordered levothyroxine 0.137 mg oral tablet See Instructions, TAKE 1 TABLET BY MOUTH ON DAYS 1-6, THEN TAKE 2 TABLETS BY MOUTH ON DAY 7 Needs TSH lab work for refills, # 96 tablet, 0 Refills, 06/29/22 15:47:00 EST, [facility]/pharmacy #2024, 158, cm,06/09/22 11:21:00 EST, Height, 143, kg, 01/04/21 1... Start Date: 06/29/22 Status: Ordered meclizine 25 mg oral tablet See Instructions, PRN Dizziness, 1 tablet By Mouth 3 times a day, # 30 tablet, 0 Refills, Maintenance, 05/11/21 13:11:00 EDT, [facility]/pharmacy #2024, Partial fill upon patient request if the prescriptionis for a schedule II opioid drug., 160.02, cm, 10/0... Start Date: 05/11/21 Status: Ordered meloxicam 15 mg oral tablet See Instructions, TAKE 1 TABLET BY MOUTH DAILY WITH FOOD. LABS NEEDED FOR FURTHER REFILLS, # 30 tablet, 3 Refills, Maintenance, 07/17/22 19:56:00 EST, [facility], 158, cm, 07/13/22 13:46:00 EST, Height, 143, kg, 01/04/21 10:42:00 EDT, Dry Weight Start Date: 07/17/22 Status: Ordered oxyCODONE 10 mg oral tablet 1 tablet = 10 mg, By Mouth, Every 6 hours, PRN as needed for pain, # 20 tablet, 0 Refills, Maintenance, 08/01/22 16:58:00 EST, Tablet, [facility]/pharmacy #2024, Partial [...] Acute 09/27/22 16:00:00 EST, 08/01/22 21:26:00EST, [place], [facility]/pharmacy #2024, Partial fill [...] Name: Celestina Trinidad MD Position: [facility] Primary Care Physician Member Role: PCP Address: Address: [address] [place] [address] Name: Lauren Mack RN Position: [facility] AMB Nurse Member Role: Primary Care Nurse Name: Lora Santiago RN Position: [facility] SN RN Member Role: Primary Care Nurse Name: Mayco Ro RN Position: [facility] RN Member Role: Primary Care Nurse Name: Heydi Potts RN Position: [facility] RN Member Role: Primary Care Nurse Name: Nadya Low RN Position: [facility] RN Member Role: Primary Care Nurse Name: Mirna Greenfield RN Position: [facility] RN Member Role: Primary Care Nurse Name: Nessa Bonilla RN Position: [facility] Hospital Generation Engineer Member Role: Primary Care Nurse Care Team Related Persons Name: DINESH SARGENT Address: home [address] [place] [address] Name: BON DE Address: home [address] [place] [address]
--- OUTSIDE RECORDS SUMMARY | 2024-06-24 14:09 | XMS_ITS | Continuity of Care Document ---
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 Name Role Phone Vivi HENNING, Celestina Givens Primary Care Physician [facility]counter [facility] Date[facility]): 07[facility]23 - 08/27/23 [facility] [address] [place], [place] [address] Allergies, Adverse Reactions, Alerts No Known Allergies [...] 08/21/22 Given tetanus/diphtheria/pertussis, acel(Tdap) 7 08/13/12 Given [id number] 12y+ bivalent booster vax 06/14/22 Recorded SARS-CoV-2 mRNA (atlplhy-odag-dljsw) vax 02/14/22 Recorded SARS-CoV-2 (COVID-19) mRNA BNT-162b2 vac 05/06/21 Given SARS-CoV-2 (COVID-19) mRNA BNT-162b2 vac 11/04/20 Recorded SARS-CoV-2 (COVID-19) mRNA BNT-162b2 vac 10/14/20 Recorded pneumococcal 23-valent vaccine 8 04/07/19 Given 1Result Comment: screening negative 2Result Comment: [facility]# [id number] 3Result Comment: [05/25/2018] [facility] lot number [id number] exp 01/26/[address] [facility] [id number] 4Result Comment: [08/20/2017] [facility] [id number] 5Admin Note: VIM dated 01/29/12 GIVEN TODAY 6Result Comment: [facility]# [id number] 7Admin Note: VIM dated 08/22/11 GIVEN TODAY 8Result Comment: [facility]#[id number] Medications acetaminophen 500 mg oral capsule 2 [...] 16:45:00 EDT, Route to Pharmacy Electronically, [facility]/pharmacy #2025, Partial fill upon patient request [...] Gm, 0 Refills, Maintenance, 02/28/21 16:31:00 EDT, [place], [facility]/pharmacy #2025, Partial fill upon patient request if the prescription is for... Start Date: 02/28/21 Status: Ordered FLUoxetine 10 mg oral capsule 10 mg, 1, capsule, By Mouth, Daily, to be taken with 20mg capsules to equal 30mg daily, # 90 capsule, Refills 1, Tot. Refills 1, Maintenance, 07/31/23 19:01:00 EST, Route to [facility], [facility], Partial fill upon patient reques... Start Date: 07/31/23 Status: Ordered FLUoxetine 20 mg oral capsule 1, capsule, By Mouth, Daily, # 90 capsule, Refills 1, Tot. Refills 1, Maintenance, 07/31/23 19:01:00 EST, Route to [facility]ically, [facility], 157.5, cm, 07/13/23 9:57:00 EST, Height, 145.9, kg, 05/22/23 7:39:00 EDT, Dry Weight Start Date: 07/31/23 Status: Ordered gabapentin 300 mg oral capsule 600 mg, 2, capsule, By Mouth, 3 times a day, # 180 capsule, Refills 3, Tot. Refills 3, Maintenance,08/25/22 22:35:00 EST, Route to Pharmacy Electronically, [facility]/pharmacy #2024, Partial fill upon patient request [...] tablet, 2 Refills, Maintenance, 02/27/23 7:25:00 EDT, [facility], 157, cm, 12/08/22 14:27:00 EDT, Height, 145, kg, 08/29/22 20:13:00 EST, Dry... Start Date: 02/27/23 Status: Ordered levothyroxine 150 mcg (0.15 mg) oral tablet 1 tablet = 150 mcg, By Mouth, Daily, # 90 tablet, 0 Refills, Maintenance, 07/15/23 17:38:00 EST, Tablet, [facility]/pharmacy #2024, Partial fill upon patient request [...] REFILLS, # 30 tablet, 1 Refills, Maintenance, 07/28/23 10:21:00 EST, [facility], 157.5, cm, 07/13/23 9:57:00 EST, Height, 145.9, kg, 05/22/23 7:39:00 EDT, Dry Weight Start Date: 07/28/23 Status: Ordered oxyCODONE 5 mg oral tablet [...] holliday, # 81 tablet, 0 Refills, Maintenance, 08/05/23 12:22:00 EST, [facility]/pharmacy #5, 157.5, cm, 07/13/23 9:57:00 EST, Height, 145.9, kg, 05/22/23 7:39:00... Start Date: 08/05/23 Status: Ordered Vitamin D3 2000 intl units [...] bedtime, # 30 tablet, 0 Refills, Maintenance, 08/09/23 20:17:00 EST, [facility], Partial fill upon patient request if the prescription is for a schedule II opioid drug., 157.5, cm, 07/13/23 9:57:00 EST, [place]i... Start Date: 08/09/23 Status: Ordered Problem List Condition Confirmation Course [...] Code MRI Safety Implantable Status Assigning Authority [id number] Unknown [id number] Unknown 08/26/24 Unknown Unknown Active GS1 Patient Care team information Care Team Personnel Name: Celestina Trinidad MD Position: [facility] Physician - Primary Care Member Role: PCP Address: Address: [address] [place] [id number]- Name: Hemalatha Lucas RN Position: [facility] RN Member Role: Primary Care Nurse Name: Lauren Mack RN Position: [facility] AMB Nurse Member Role: Primary Care Nurse Name: Madelaine Ruiz RN Position: [facility] RN Member Role: Primary Care Nurse Name: Lora Santiago RN Position: [facility] SN RN Member Role: Primary Care Nurse Name: Mayco Ro RN Position: [facility] RN Member Role: Primary Care Nurse Name: Heydi Potts RN Position: [facility] RN Member Role: Primary Care Nurse Name: Janice Romano LPN Position: [facility] RN Member Role: Primary Care Nurse Name: Nadya Low RN Position: [facility] RN Member Role: Primary Care Nurse Name: Mirna Greenfield RN Position: [facility] RN Member Role: Primary Care Nurse Name: Nessa Bonilla RN Position: [facility] Management Development Specialist Member Role: Primary Care Nurse Care Team Related Persons Name: DINESH SARGENT Address: home [address] [place] [address] Name: BON DE Address: home [address] [address]
--- OUTSIDE RECORDS SUMMARY | 2024-06-24 14:10 | XMS_ITS | Continuity of Care Document ---
Author Organization [facility] Address [address] [place] [address]- Care Team Providers Care Fruit Preserver Name Role Phone Florentino AHN, Elder Hannah Primary Care Physician [phone] Encounter [facility] Date(s): 03/17/21 - 04/21/21 [facility] [address] [place] [address]- Attending Physician: Elder Good NP Allergies, Adverse [...] Given 1Result Comment: [facility]# [id number] 2Result Comment: [05/25/2018] [facility] lot number [id number] exp 01/26/2019 [facility] [phone] 3Result Comment: [08/20/2017] [facility] [phone] 4Admin Note: VIM dated 01/29/12 GIVEN TODAY 5Result Comment: [facility]#[id number] 6Admin Note: VIM dated 08/22/11 GIVEN TODAY [...] 10/27/20 14:48:00 EDT, Route to Pharmacy Electronically, [id number], [facility]/pharmacy #2024, 160.02, cm, 10/19/20 11:04:00 EDT, Height, 156... Start Date: 10/27/20 Status: Ordered betamethasone-clotrimazole 0.05%-1% topical cream 1 application, Topically, 2 times a day, # 45 Gm, 0 Refills, Maintenance, 12/27/20 14:13:00 EDT, Cream, [facility]/pharmacy #2024, Partial fill upon patient request if the prescription is for a schedule II opioid drug., 1 application Topically 2 times a day,... Start Date: 12/27/20 Status: Ordered diclofenac 1% topical gel See Instructions, APPLY TOPICALLY 4 TIMES A DAY, # 100 Gm, 1 Refills, 10/27/20 12:37:00 EDT, [facility]/pharmacy #2024, 25, APPLY TOPICALLY 4 TIMES A DAY, 160.02, cm, 10/19/20 11:04:00 EDT, Height, 156.81, kg, 10/19/20 11:04:00 EDT, Dry Weight Start Date: 10/27/20 Status: Ordered Flonase 50 mcg/inh nasal spray See Instructions, 2 sprays Nares twice daily x 1 week, then once daily x 1-2 weeks until symptoms improve, # 16 Gm, 0 Refills, Maintenance, 02/28/21 16:31:00 EDT, [place], [facility]/pharmacy #202, Partial fill upon patient request if the prescription is for... Start Date: 02/28/21 Status: Ordered FLUoxetine 10 mg oral capsule 10 mg, 1, capsule, By Mouth, Daily, Take with 20mg capsule for total of 30mg daily, # 90 capsule, Refills 0, Tot. Refills 0, Maintenance, 03/11/21 12:00:00 EDT, [facility] Partial fill upon patient request if... Start Date: 03/11/21 Status: Ordered FLUoxetine 20 mg oral capsule 20 mg, 1, capsule, By Mouth, Daily, # 30 capsule, Refills 5, Tot. Refills 5, Maintenance, 12/20/20 14:39:00 EDT, Route to Pharmacy Electronically, [facility]/pharmacy #202, replacing 10mg dose, 160.02, cm,12/20/20 11:59:00 EDT, Height, 156.81, kg, 10/19/20... Start Date: 12/20/20 Status: Ordered levothyroxine 0.137 mg oral tablet See Instructions, Take 1 tablet by mouth on days 1-6, then take 2 tablets by mouth on day 7, # 121 tablet, 5 Refills, Maintenance, 12/07/20 9:46:00 EDT, [facility]/pharmacy #2024, 160.02, cm, 10/19/20 11:04:00 EDT, Height, 156.81, kg, 10/19/20 11:04:00 EDT,... Start Date: 12/07/20 Status: Ordered meloxicam 15 mg oral tablet 1 tablet, By Mouth, Daily, WITH FOOD., # 30 tablet, 1 Refills, [facility] STORE 78[facility], 160.02, cm, 02/28/21 15:45:00 EDT, Height, 143, kg, 01/04/21 10:42:00 EDT, Dry Weight Start Date: 04/09/21 Status: Ordered Splint See Instructions, # 1 each, Maintenance, left wrist short cock-up splint, 01/08/20 14:28:00 EDT, Supply Start Date: 01/08/20 Status: Ordered tiZANidine 2 mg oral tablet 2 mg, 1, tablet, By Mouth, Daily at bedtime, PRN, # 14 tablet, Refills 0, Tot. Refills 0, Maintenance, as needed for muscle spasm, 08/04/19 17:54:00 EST, Route to Pharmacy Electronically, [facility], 161, cm, 08/04/19 14:44:00 EST, Height Start Date: 08/04/19 Stop Date: 08/18/19 Status: Ordered traMADol 50 mg oral tablet 2 tablet = 100 mg, By Mouth, Every 12 hours, as needed for pain masspat checked, # 120 tablet, 2 Refills, Maintenance, 02/10/21 12:37:00 EDT, [facility], 160.02, cm, 01/04/21 10:42:00 EDT, Height, 143, kg, 01/04/21 10:42:00 EDT, Dry Weight Start Date: 02/10/21 Stop Date: 05/11/21 Status: Ordered Problem List Condition Effective Dates [...]
--- OUTSIDE RECORDS SUMMARY | 2024-06-24 14:10 | XMS_ITS | Continuity of Care Document ---
Author Organization [facility] Address [address] [place] [address]- Care Team Providers Care Miniature Set Builder Name Role Phone Vivi HENNING, Celestina Givens Primary Care Physician Encounter [facility] Date(s): 01/25/24 - 02/24/24 [facility] [address] [place] [address]- Allergies, Adverse Reactions, Alerts No Known Allergies [...] 08/21/22 Given tetanus/diphtheria/pertussis, acel(Tdap) 7 08/13/12 Given [id number] 12y+ bivalent booster vax 06/14/22 Recorded SARS-CoV-2 mRNA (omaxleu-hqkg-geweq) vax 02/14/22 Recorded SARS-CoV-2 (COVID-19) mRNA BNT-162b2 vac 05/06/21 Given SARS-CoV-2 (COVID-19) mRNA BNT-162b2 vac 11/04/20 Recorded SARS-CoV-2 (COVID-19) mRNA BNT-162b2 vac 10/14/20 Recorded pneumococcal 23-valent vaccine 8 04/07/19 Given 1Result Comment: screening negative 2Result Comment: [facility]# [id number] 3Result Comment: [05/25/2018] [facility] lot number [id number] exp 01/26/2019 [facility] [id number] 4Result Comment: [08/20/2017] [facility] [id number] 5Admin Note: VIM dated 01/29/12 GIVEN TODAY 6Result Comment: [facility]# [id number] 7Admin Note: VIM dated 08/22/11 GIVEN TODAY 8Result Comment: [facility]#[id number] Medications acetaminophen 500 mg oral capsule 2 [...] 1 Refills, Soft Stop, 12/06/23 17:28:00 EDT, [facility]/pharmacy #5, Partial fill upon patient request [...] 05/17/23 16:45:00 EDT, Route to Pharmacy Electronically, [facility]/pharmacy #2024, Partial fill upon patient request if the presc... Start Date: 05/17/23 Stop Date: 05/17/24 Status: Ordered diclofenac 1% topical gel See Instructions, APPLY TO AFFECTED AREA 4 TIMES A DAY, # 100 Gm, 1 Refills, Maintenance, 11/07/23 7:48:00 EDT, [facility]/pharmacy #2024, 25, APPLY TO AFFECTED AREA 4 TIMES A DAY, 157.5, cm, 10/18/23 15:15:00 EDT, Height, 145.9, kg, 05/22/23 7:39:00 EDT, . Start Date: 11/07/23 Status: Ordered diclofenac 1% topical gel See Instructions, APPLY TO AFFECTED AREA 4 TIMES A DAY. NOT COVERED, # 100 Gm, 1 Refills, Maintenance, 02/01/24 13:44:00 EDT, [facility], 30, APPLY TO AFFECTED AREA 4 TIMES [...] Gm, 0 Refills, Maintenance, 02/28/21 16:31:00 EDT, [place], [facility]/pharmacy #5, Partial fill upon patient request if the prescription is for... Start Date: 02/28/21 Status: Ordered FLUoxetine 10 mg oral capsule 1, capsule, By Mouth, Daily, INSTR:TO BE TAKEN WITH 20MG CAPSULES TO EQUAL 30MG DAILY, # 90 capsule, Refills 1, Maintenance, 01/25/24 9:11:00 EDT, Route to Pharmacy Electronically, [facility], 157.5, cm, 01/22/24 10:31:00 EDT, Height, 145.9, kg,... Start Date: 01/25/24 Status: Ordered gabapentin 300 mg oral capsule 600 mg, 2, capsule, By Mouth, 3 times a day, # 180 capsule, Refills 3, Tot. Refills 3, Maintenance,08/25/22 22:35:00 EST, Route to Pharmacy Electronically, [facility]/pharmacy #2024, Partial fill upon [...] Refills, Maintenance, 12/28/23 16:17:00 EDT, [facility], 157.5, cm, 10/18/23 15:15:00 EDT, Height, 145.9, kg, 05/22/23 7:39:00 EDT, Dry Weight Start Date: 12/28/23 Status: Ordered meclizine 25 mg oral tablet See Instructions, PRN Dizziness, 1 tablet By Mouth 3 times a day, # 30 tablet, 0 Refills, Maintenance, 02/27/23 10:43:00 EDT, [facility]/pharmacy #2025, Partial fill upon [...] tablet, 0 Refills, Maintenance, 11/29/23 15:24:00 EDT, [facility]/pharmacy #2025, 157.5, cm, 10/18/23 1... Start [...] Code MRI Safety Implantable Status Assigning Authority [id number] Unknown [id number] Unknown 08/26/24 Unknown Unknown Active GS1 Patient Care team information Care Team Personnel Name: Celestina Trinidad MD Position: [facility] Physician - Primary Care Member Role: PCP Address: Address: [address] [place] [address] Name: Hemalatha Lucas RN Position: [facility] RN Member Role: Primary Care Nurse Name: Lauren Mack RN Position: [facility] AMB Nurse Member Role: Primary Care Nurse Name: Madelaine Ruiz RN Position: [facility] RN Member Role: Primary Care Nurse Name: Lora Santiago RN Position: [facility] SN RN Member Role: Primary Care Nurse Name: Mayco Ro RN Position: [facility] RN Member Role: Primary Care Nurse Name: Heydi Potts RN Position: [facility] SN RN Member Role: Primary Care Nurse Name: Janice Romano LPN Position: [facility] RN Member Role: Primary Care Nurse Name: Nadya Low RN Position: [facility] RN Member Role: Primary Care Nurse Name: Mirna Greenfield RN Position: [facility] RN Member Role: Primary Care Nurse Name: Nessa Bonilla RN Position: [facility] Promenade Tile Setter Member Role: Primary Care Nurse Care Team Related Persons Name: DINESH SARGENT Address: [address] [place] [address] Name: BON DE Address: home [address] [place] [address]
--- OUTSIDE RECORDS SUMMARY | 2024-06-24 14:10 | XMS_ITS | Continuity of Care Document ---
Author Organization [facility] Address [address] [place] [address] [address], [address] [place] [address]- Care Team Providers Care Therapeutic Assistant Name Role Phone Vivi HENNING, Celestina Givens Primary Care Physician Encounter [facility] Date(s): 05/11/23 - 06/10/23 [facility] [address] [place] [address] Drive, [address] [place] [address]- Allergies, Adverse Reactions, Alerts No Known Allergies Immunizations Given and Recorded Vaccine Date Status Refusal Reason tetanus/diphtheria/pertussis, acel(Tdap) 1 08/21/22 Given tetanus/diphtheria/pertussis, acel(Tdap) 2 08/13/12 Given [id number] 12y+ bivalent booster vax 06/14/22 Recorded influenza [...] inactivated 6 07/31/12 Gi [facility] SARS-CoV-2 mRNA (nqzzybc-slae-lbegq) vax 02/14/22 Recorded SARS-CoV-2 (COVID-19) mRNA BNT-162b2 vac 05/06/21 Given SARS-CoV-2 (COVID-19) mRNA BNT-162b2 vac 11/04/20 Recorded SARS-CoV-2 (COVID-19) mRNA BNT-162b2 vac 10/14/20 Recorded pneumococcal 23-valent vaccine 7 04/07/19 Given 1Result Comment: [facility]# [id number] 2Admin Note: VIM dated 08/22/11 GIVEN TODAY 3Result Comment: [facility]# [id number] 4Result Comment: [05/25/2018] [facility] lot number [id number] exp 01/26/2019 [facility] [id number] 5Result Comment: [08/20/2017] [facility] [id number] 6Admin Note: VIM dated 01/29/12 GIVEN TODAY 7Result Comment: [facility]#[id number] Medications acetaminophen 500 mg oral capsule 2 [...] Stop, 04/10/2215:14:00 EDT, Route to Pharmacy Electronically, [id number], [facility]/pharmacy #2025, 158, cm, 04/10/22 14:56:00 EDT, Height, [...] 05/17/23 16:45:00 EDT, Route to Pharmacy Electronically, [facility]/pharmacy #2024, Partial fill upon patient request if the presc... Start Date: 05/17/23 Stop Date: 05/17/24 Status: Ordered diclofenac 1% topical gel See Instructions, APPLY TOPICALLY 4 TIMES A DAY, # 100 Gm, 1 Refills, Maintenance, 06/05/23 10:25:00 EST, [facility]/pharmacy #2024, 50, APPLY TOPICALLY 4 TIMES A DAY, 157.5, cm, 05/22/23 7:39:00 EDT, Height, 145.9, kg, 05/22/23 7:39:00 EDT, Dry Weight Start Date: 06/05/23 Status: Ordered Flonase 50 mcg/inh nasal spray See Instructions, 2 sprays Nares twice daily x 1 week, then once daily x 1-2 weeks until symptoms improve, # 16 Gm, 0 Refills, Maintenance, 02/28/21 16:31:00 EDT, [place], [facility]/pharmacy #202, Partial fill upon patient request if the prescription is for... Start Date: 02/28/21 Status: Ordered FLUoxetine 10 mg oral capsule 10 mg, 1, capsule, By Mouth, Daily, to be taken with 20mg capsules to equal 30mg daily, # 90 capsule, Refills 1, Tot. Refills 1, Maintenance, 04/03/23 11:25:00 EDT, Route to Pharmacy Electronically, [facility]/pharmacy #2024, Partial fill upon patient reques... Start Date: 04/03/23 Status: Ordered FLUoxetine 20 mg oral capsule 1, capsule, By Mouth, Daily, # 90 capsule, Refills 1, Tot. Refills 1, Maintenance, 04/03/23 11:23:00 EDT, Route to Pharmacy Electronically, [facility]/pharmacy #2024, 157, cm, 03/14/23 11:02:00 EDT, Height,145, kg, 08/29/22 20:13:00 EST, Dry Weight Start Date: 04/03/23 Status: Ordered gabapentin 300 mg oral capsule 600 mg, 2, capsule, By Mouth, 3 times a day, # 180 capsule, Refills 3, Tot. Refills 3, Maintenance,08/25/22 22:35:00 EST, Route to Pharmacy Electronically, [facility]/pharmacy #2024, Partial fill upon patient request if [...] tablet, 2 Refills, Maintenance, 02/27/23 7:25:00 EDT, [facility] STORE 08[facility], 157, cm, 12/08/22 14:27:00 EDT, Height, 145, [...] 16:30:00 EST, Aeros[place], Route to Pharmacy Electronically, [id number], [facility]/pharmacy #2025, 157.5, cm, 05/22/23 7:39:00 EDT, Height... Start Date: 06/07/23 Status: Ordered traMADol 50 mg oral tablet See Instructions, 2 tab po qam and one tab po q pm prn moderate to severe pain. 28 days. mass pat ok, # 81 tablet, 0 Refills, Maintenance, 05/14/23 16:14:00 EDT, [facility]/pharmacy #2025, 157, cm, 03/14/2311:02:00 EDT, Height, 145, kg, 08/29/22 20:13:00 E... Start Date: 05/14/23 Status: Ordered Problem List Condition Confirmation Course [...] Code MRI Safety Implantable Status Assigning Authority [id number] Unknown [id number] Unknown 08/26/24 Unknown Unknown Active GS1 Patient Care team information Care Team Personnel Name: Celestina Trinidad MD Position: [facility] Physician - Primary Care Member Role: PCP Address: Address: [address] [place] [address] Name: Hemalatha Lucas RN Position: [facility] RN Member Role: Primary Care Nurse Name: Lauren Mack RN Position: [facility] AMB Nurse Member Role: Primary Care Nurse Name: Madelaine Ruiz RN Position: [facility] RN Member Role: Primary Care Nurse Name: Lora Santiago RN Position: [facility] SN RN Member Role: Primary Care Nurse Name: Mayco Ro RN Position: [facility] RN Member Role: Primary Care Nurse Name: Heydi Potts RN Position: [facility] RN Member Role: Primary Care Nurse Name: Janice Romano LPN Position: [facility] RN Member Role: Primary Care Nurse Name: Nadya Low RN Position: [facility] RN Member Role: Primary Care Nurse Name: Mirna Greenfield RN Position: [facility] RN Member Role: Primary Care Nurse Name: Nessa Bonilla RN Position: [facility] Hospital Cyber Security Specialist Member Role: Primary Care Nurse Care Team Related Persons Name: ROSETTA DINESH Address: [place] [address] Name: BON DE Address: home [address] [address]
--- OUTSIDE RECORDS SUMMARY | 2024-06-24 14:10 | XMS_ITS | Continuity of Care Document ---
Author Organization [facility] Address [address] [place] [address]- Care Team Providers Care Marketing Programs Manager Name Role Phone Kareen HENNING, Patrick Graham Primary Care Physician Encounter [facility] Date(s): 03/11/20 - 04/10/20 [facility] [address] [place] [address]- [facility] Allergies, Adverse Reactions, Alerts Substance Reaction Severity [...] tetanus/diphtheria/pertussis, acel(Tdap) 6 08/13/12 Given 1Result Comment: [facility]# [id number] 2Result Comment: [05/25/2018] [facility] lot number [id number] exp 01/26/2019 [facility] [id number] 3Result Comment: [08/20/2017] [facility] [phone] 4Admin Note: VIM dated 01/29/12 GIVEN TODAY 5Result Comment: [facility]#[id number] 6Admin Note: VIM dated 08/22/11 GIVEN TODAY [...] PUFFS EVERY 6 HOURS NEEDED FOR WHEEZE, [facility]/pharmacy #2024 Start Date: 05/27/19 Status: Ordered diclofenac 1% topical gel 1 applicator, Topically, 4 times a day, # 100 Gm, 0 Refills, Maintenance, 02/18/20 11:51:00 EDT, Gel, [facility]/pharmacy #2024, 161, cm, 01/08/20 13:51:00 EDT, Height Start Date: 02/18/20 Status: Ordered FLUoxetine 20 mg oral capsule 20 mg, 1, capsule, By Mouth, Daily, # 30 capsule, Refills 4, Tot. Refills 4, Maintenance, 08/30/19 20:34:00 EST, Route to Pharmacy Electronically, [facility]/pharmacy #2024, replacing 10mg dose, 161, cm, 08/12/19 12:43:00 EST, Height Start Date: 08/30/19 Status: Ordered levothyroxine 125 mcg (0.125 mg) oral tablet 1 tablet = 125 mcg, By Mouth, Daily, # 30 tablet, 5 Refills, Maintenance, 11/11/19 14:50:00 EDT, Tablet, [facility]/pharmacy #2024, 161, cm, 10/07/19 9:57:00 EDT, Height Start Date: 11/11/19 Status: Ordered meloxicam 15 mg oral tablet 1 tablet = 15 mg, By Mouth, Daily, Take w food., # 30 tablet, 1 Refills, Maintenance, 03/04/20 14:47:00 EDT, Tablet, [facility]/pharmacy #2024, Labs needed for further refills, 161, cm, 02/24/20 10:51:00 EDT, Height Start Date: 03/04/20 Status: Ordered Splint See Instructions, # 1 each, Maintenance, left wrist short cock-up splint, 01/08/20 14:28:00 EDT, Supply Start Date: 01/08/20 Status: Ordered tiZANidine 2 mg oral tablet 2 mg, 1, tablet, By Mouth, Daily at bedtime, PRN, # 14 tablet, Refills 0, Tot. Refills 0, Maintenance, as needed for muscle spasm, 08/04/19 17:54:00 EST, Route to Pharmacy Electronically, [facility]/pharmacy #5, 161, cm, 08/04/19 14:44:00 EST, Height Start Date: 08/04/19 Stop Date: 08/18/19 Status: Ordered traMADol 50 mg oral tablet 2 tablet = 100 mg, By Mouth, Every 12 hours, as needed for pain masspat checked, # 120 tablet, 2 Refills, Maintenance, 03/11/20 16:48:00 EDT, [facility], 161, cm, 02/24/20 10:51:00 EDT, Height Start Date: 03/11/20 Stop Date: 06/09/20 Status: Ordered zolpidem 10 mg oral tablet 1 tablet = 10 mg, By Mouth, Daily at bedtime, PRN for sleep, for 30 days, masspat check may fill less, # 30 tablet, 3 Refills, Acute 04/17/20 12:28:00 EDT, 12/19/19 12:28:00 EDT, Tablet, [facility]/pharmacy#5, 161, cm, 10/07/19 9:57:00 EDT, Height Start [...]
--- OUTSIDE RECORDS SUMMARY | 2024-06-24 14:10 | XMS_ITS | Continuity of Care Document ---
Author Organization [facility] Address [address] [place] [address]- Care Team Providers Care Financial Aid Administrator Name Role Phone Vivi HENNING, Celestina Givens Primary Care Physician [facility]counter [facility] Date(s): 12/04/22 - 01/03/23 [facility] [address] [place] [address]- Allergies, Adverse Reactions, Alerts No Known Allergies Immunizations Given and Recorded Vaccine Date Status Refusal Reason tetanus/diphtheria/pertussis, acel(Tdap) 1 08/21/22 Given tetanus/diphtheria/pertussis, acel(Tdap) 2 08/13/12 Given [id number] 12y+ bivalent booster vax 06/14/22 Recorded influenza [...] inactivated 6 07/31/12 Gi hali SARS-CoV-2 mRNA ([id number]) vax 02/14/22 Recorded SARS-CoV-2 (COVID-19) mRNA BNT-162b2 vac 05/06/21 Given SARS-CoV-2 (COVID-19) mRNA BNT-162b2 vac 11/04/20 Recorded SARS-CoV-2 (COVID-19) mRNA BNT-162b2 vac 10/14/20 Recorded pneumococcal 23-valent vaccine 7 04/07/19 Given 1Result Comment: [facility]# [id number] 2Admin Note: VIM dated 08/22/11 GIVEN TODAY 3Result Comment: [facility]# [id number] 4Result Comment: [05/25/2018] [employer] lot number [id number] 01/26/2019 [facility] [id number] 5Result Comment: [08/20/2017] [facility] [id number] 6Admin Note: VIM dated 01/29/12 GIVEN TODAY 7Result Comment: [facility]#[id number] Medications acetaminophen 500 mg oral capsule 2 [...] Stop, 04/10/2215:14:00 EDT, Route to Pharmacy Electronically, [id number], [facility]/pharmacy #2025, 158, cm, 04/10/22 14:56:00 EDT, Height, 143,... Start Date: 04/10/22 Status: Ordered amLODIPine 10 mg oral tablet 1 tablet, By Mouth, Daily, # 90 tablet, 0 Refills, Maintenance, 10/23/22 12:47:00 EDT, [facility] STORE [id number], 157, cm, 09/13/22 15:58:00 EST, Height, 145, kg, 08/29/22 20:13:00 EST, Dry Weight Start Date: 10/23/22 Status: Ordered budesonide-formoterol 80 mcg-4.5 mcg/inh inhalation aerosol with adapter 2, puffs, Inhalation, 2 times a day, PRN, use with spacer chamber, rinse mouth and throat after use, j44.9, # 1 each, Refills 6, Tot. Refills 6, Maintenance, 12/08/22 12:55:00 EDT, Aerosol, Route to Pharmacy Electronically, [id number]... Start Date: 12/08/22 Status: Ordered Compression Stockings [...] 100 Gm, 1 Refills, 09/22/22 7:28:00 EST, [facility]/pharmacy #2024, 25, APPLY TOPICALLY 4 [...] 13:30:00 EST, Route to Pharmacy Electronically, [facility]/pharmacy #2024, Partial fill upon patient request if the p... Start Date: 08/31/22 Status: Ordered Flonase 50 mcg/inh nasal spray See Instructions, 2 sprays Nares twice daily x 1 week, then once daily x 1-2 weeks until symptoms improve, # 16 Gm, 0 Refills, Maintenance, 02/28/21 16:31:00 EDT, [place], [facility]/pharmacy #2024, Partial fill upon patient [...] 11/29/22 22:18:00 EDT, Route to Pharmacy Electronically, [facility] STORE [id number], 157, cm, 10/30/22 13:53:00 EDT, Height, 145, kg, 08/29/22 20:13:00 EST, Dry Weight Start Date: 11/29/22 Status: Ordered gabapentin 300 mg oral capsule 600 mg, 2, capsule, By Mouth, 3 times a day, # 180 capsule, Refills 3, Tot. Refills 3, Maintenance,08/25/22 22:35:00 EST, Route to Pharmacy Electronically, [facility]/pharmacy #2024, Partial fill upon patient [...] Refills, Maintenance, 07/03/22 14:41:00 EST, Tablet, [facility]/pharmacy #2024, Partial fill upon patient request if the prescription is for a schedule II opioid drMelonie.. Start Date: 07/03/22 Status: Ordered meclizine 25 mg oral tablet See Instructions, PRN Dizziness, 1 tablet By Mouth 3 times a day, # 30 tablet, 0 Refills, Maintenance, 05/11/21 13:11:00 EDT, [facility], Partial fill upon patient request if the prescriptionis for a schedule II opioid drug., 160.02, cm, 10/0... Start Date: 05/11/21 Status: Ordered meloxicam 15 mg oral tablet See Instructions, TAKE 1 TABLET BY MOUTH DAILY WITH FOOD. LABS NEEDED FOR FURTHER REFILLS, # 30 tablet, 3 Refills, Maintenance, 10/18/22 21:31:00 EDT, [id number], 157, cm, 09/13/22 15:58:00 EST,Height, 145, kg, [...] 09/05/22 16:29:00 EST, Route to Pharmacy Electronically, [facility], Partialfill upon patient request if the prescription [...] days, # 30 tablet, 0 Refills, Acute 01/30/23 16:24:00 EDT, 12/31/22 16:24:00 EDT, Tablet, [facility], early refill for travel. Thanks., 157, cm, 10/30/22 13:53:00 EDT, Height,... Start Date: 12/31/22 Stop Date: 01/30/23 Status: Ordered zolpidem 5 mg oral tablet 2 tablet = 10 mg, By Mouth, Daily at bedtime, PRN as needed for insomnia, # 50 tablet, 0 Refills, Acute 02/03/23 16:53:00 EDT, 12/04/22 16:52:00 EDT, Tablet, [facility], Partial fill upon patient request [...] Team Personnel Name: Celestina Trinidad MD Position: [facility] Physician - Primary Care Member Role: PCP Address: Address: [address] [place] [id number] Name: Hemalatha Lucas RN Position: [facility] RN Member Role: Primary Care Nurse Name: Lauren Mack RN Position: [facility] AMB Nurse Member Role: Primary Care Nurse Name: Madelaine Ruiz RN Position: [facility] RN Member Role: Primary Care Nurse Name: Lora Santiago RN Position: [facility] SN RN Member Role: Primary Care Nurse Name: Mayco Ro RN Position: [facility] RN Member Role: Primary Care Nurse Name: Heydi Potts RN Position: [facility] RN Member Role: Primary Care Nurse Name: Janice Romano LPN Position: [facility] RN Member Role: Primary Care Nurse Name: Nadya Low RN Position: [facility] RN Member Role: Primary Care Nurse Name: Mirna Greenfield RN Position: [facility] RN Member Role: Primary Care Nurse Name: Nessa Bonilla RN Position: [facility] Registered Massage Therapist Member Role: Primary Care Nurse Care Team Related Persons Name: DINESH SARGENT Address: home [address] [place] [address] Name: BON DE Address: home [address] [address]
--- OUTSIDE RECORDS SUMMARY | 2024-06-24 14:10 | XMS_ITS | Continuity of Care Document ---
Author Organization [facility] Address [address] [place] [address]- Care Team Providers Care Hygiene Teacher Name Role Phone Kareen HENNING, Patrick Graham Primary Care Physician Encounter [facility] Date(s): 08/07/19 - 08/14/[address] [address]- [facility] Attending Physician: Deb Ward Allergies, Adverse Reactions, Alerts Substance Reaction Severity [...] tetanus/diphtheria/pertussis, acel(Tdap) 6 08/13/12 Given 1Result Comment: [facility]# [id number] 2Result Comment: [05/25/2018] [facility] lot number [id number] exp 01/26/2019 [facility] [id number] 3Result Comment: [08/20/2017] [facility] [id number] 4Admin Note: VIM dated 01/29/12 GIVEN TODAY 5Result Comment: [facility]#[id number] 6Admin Note: VIM dated 08/22/11 GIVEN TODAY Medications albuterol CFC free 90 mcg/inh inhalation aerosol See Instructions, # 25.5 Unknown, Refills 2 Tot. Refills 2, INHALE 2 PUFFS EVERY 6 HOURS NEEDED FOR WHEEZE, [facility]/pharmacy #2024 Start Date: 05/27/19 Status: Ordered benzonatate 200 mg oral capsule 1 capsule = 200 mg, By Mouth, 3 times a day, PRN as needed for cough, for 10 days, # 30 capsule, 0 Refills, Acute 08/22/19 13:50:00 EST, 08/12/19 13:50:00 EST, Capsule, [facility]/pharmacy #2024, 161, cm, 08/12/19 12:43:00 EST, Height [...] 07/10/19 14:06:00 EST, Route to Pharmacy Electronically, [id number], [facility]/pharmacy #2024, replacing 10mg dose, 161, cm, 06/25/19 [...] 0 Refills, Maintenance, 08/03/19 11:35:00 EST, Tablet, [facility]/pharmacy #2024, Labs needed for further refills, 161, cm, 06/25/19 11:16:00 EST, Height Start Date: 08/03/19 Status: Ordered tiZANidine 2 mg oral tablet 2 mg, 1, tablet, By Mouth, Daily at bedtime, PRN, # 14 tablet, Refills 0, Tot. Refills 0, Maintenance, as needed for muscle spasm, 08/04/19 17:54:00 EST, Route to Pharmacy Electronically, [facility]/pharmacy #2025, 161, cm, 08/04/19 14:44:00 EST, Height Start Date: 08/04/19 Stop Date: 08/18/19 Status: Ordered traMADol 50 mg oral tablet 2 tablet = 100 mg, By Mouth, Every 12 hours, as needed for pain masspat check, # 120 tablet, 0 Refills, Maintenance, 06/25/19 9:54:00 EST Start Date: 06/25/19 Stop Date: 07/25/19 Status: Ordered zolpidem 10 mg oral tablet [...]
--- OUTSIDE RECORDS SUMMARY | 2024-06-24 14:10 | XMS_ITS | Continuity of Care Document ---
Author Organization [facility] Address Unknown Care Team Providers Care Keymodule Assembly Machine Tender Name Role Phone Noe FIELD SUPERVISOR [employer], Mónica Graham Primary Care Physician Encounter [facility] Date(s): 05/04/21 - 06/03/21 [facility] Allergies, Adverse Reactions, Alerts Substance Reaction Severity [...] tetanus/diphtheria/pertussis, acel(Tdap) 6 08/13/12 Given 1Result Comment: [facility][note 3]# [id number] 2Result Comment: [05/25/2018] [facility] lot number [id number] exp 01/26/2019 [facility][note 3] [id number] 3Result Comment: [08/20/2017] [facility][note 3] [id number] 4Admin Note: VIM dated 01/29/12 GIVEN TODAY 5Result Comment: [facility]#[id number] 6Admin Note: VIM dated 08/22/11 GIVEN TODAY [...] 10/27/20 14:48:00 EDT, Route to Pharmacy Electronically, [id number], [facility]/pharmacy #2024, 160.02, cm, 10/19/20 11:04:00 EDT, Height, 156... Start Date: 10/27/20 Status: Ordered betamethasone-clotrimazole 0.05%-1% topical cream 1 application, Topically, 2 times a day, # 45 Gm, 0 Refills, Maintenance, 12/27/20 14:13:00 EDT, Cream, [facility]/pharmacy #2024, Partial fill upon patient request if the prescription is for a schedule II opioid drug., 1 application Topically 2 times a day,... Start Date: 12/27/20 Status: Ordered diclofenac 1% topical gel See Instructions, APPLY TOPICALLY 4 TIMES A DAY, # 100 Gm, 1 Refills, 10/27/20 12:37:00 EDT, [facility]/pharmacy #2024, 25, APPLY TOPICALLY 4 TIMES A DAY, 160.02, cm, 10/19/20 11:04:00 EDT, Height, 156.81, kg, 10/19/20 11:04:00 EDT, Dry Weight Start Date: 10/27/20 Status: Ordered Flonase 50 mcg/inh nasal spray See Instructions, 2 sprays Nares twice daily x 1 week, then once daily x 1-2 weeks until symptoms improve, # 16 Gm, 0 Refills, Maintenance, 02/28/21 16:31:00 EDT, [place], [facility]/pharmacy #202, Partial fill upon patient request if the prescription is for... Start Date: 02/28/21 Status: Ordered FLUoxetine 10 mg oral capsule 10 mg, 1, capsule, By Mouth, Daily, Take with 20mg capsule for total of 30mg daily, # 90 capsule, Refills 1, Tot. Refills 1, Maintenance, 05/04/21 16:44:00 EDT, [facility] fill upon patient request if... Start Date: 05/04/21 Status: Ordered FLUoxetine 20 mg oral capsule 20 mg, 1, capsule, By Mouth, Daily, Take with Fluoxetine 10mg for a total of 30mg, # 90 capsule, Refills 1, Tot. Refills 1, Maintenance, 05/04/21 16:44:00 EDT, [facility] Electronically[facility] dose, 160.02, cm, 08/0... Start Date: 05/04/21 Status: Ordered levothyroxine 0.137 mg oral tablet See Instructions, Take 1 tablet by mouth on days 1-6, then take 2 tablets by mouth on day 7, # 121 tablet, 5 Refills, Maintenance, 12/07/20 9:46:00 EDT, [facility]/pharmacy #202, 160.02, cm, 10/19/20 11:04:00 EDT, Height, 156.81, kg, 10/19/20 11:04:00 EDT,... Start Date: 12/07/20 Status: Ordered meclizine 25 mg oral tablet See Instructions, PRN Dizziness, 1 tablet By Mouth 3 times a day, # 30 tablet, 0 Refills, Maintenance, 05/11/21 13:11:00 EDT, [facility]/pharmacy #202, Partial fill upon patient request if the prescriptionis for a schedule II opioid drug., 160.02, cm, 10/0... Start Date: 05/11/21 Status: Ordered meloxicam 15 mg oral tablet 1 tablet, By Mouth, Daily, WITH FOOD., # 30 tablet, 1 Refills, [facility] STORE 95674, 160.02, cm, 02/28/21 15:45:00 EDT, Height, 143, [...] EST, Route to Pharmacy Electronically, [facility]/pharmacy #2025, 161, cm, 08/04/19 14:44:00 EST, Height Start Date: 08/04/19 Stop Date: 08/18/19 Status: Ordered traMADol 50 mg oral tablet 2 tablet = 100 mg, By Mouth, Every 12 hours, as needed for pain masspat checked, # 120 tablet, 2 Refills, Maintenance, 05/11/21 13:11:00 EDT, [facility]/pharmacy #2025, 160.02, cm, 05/06/21 10:09:00 EDT, Height, 143, kg, 01/04/21 10:42:00 EDT, Dry Weight Start Date: 05/11/21 Stop Date: 08/09/21 Status: Ordered traMADol 50 mg oral tablet 2 tablet = 100 mg, By Mouth, Every 12 hours, as needed for pain masspat checked, # 120 tablet, 2 Refills, Maintenance, 02/10/21 12:37:00 EDT, [facility], 160.02, cm, 01/04/21 10:42:00 EDT, Height, 143, kg, 01/04/21 10:42:00 EDT, Dry Weight Start Date: 02/10/21 Stop Date: 05/11/21 Status: Ordered zolpidem 10 mg oral tablet 1 tablet = 10 mg, By Mouth, Daily at bedtime, PRN for sleep, for 30 days, masspat check may fill less, # 30 tablet, 3 Refills, Acute 09/08/21 13:11:00 EST, 05/11/21 13:11:00 EDT, Tablet, [facility], 160.02, cm, 05/06/21 10:09:00 EDT, Height,... Start [...]
--- OUTSIDE RECORDS SUMMARY | 2024-06-24 14:10 | XMS_ITS | Continuity of Care Document ---
Author Organization [facility] Address [address] [place] [address]- Care Team Providers Care General House Worker Name Role Phone Vivi HENNING, Celestina Givens Primary Care Physician Encounter [facility] Date(s): 11/19/23 - 12/19/23 [facility] [address] [place] [address]- Allergies, Adverse Reactions, Alerts No Known Allergies [...] 08/21/22 Given tetanus/diphtheria/pertussis, acel(Tdap) 7 08/13/12 Given [id number] 12y+ bivalent booster vax 06/14/22 Recorded SARS-CoV-2 mRNA ([id number]) vax 02/14/22 Recorded SARS-CoV-2 (COVID-19) mRNA BNT-162b2 vac 05/06/21 Given SARS-CoV-2 (COVID-19) mRNA BNT-162b2 vac 11/04/20 Recorded SARS-CoV-2 (COVID-19) mRNA BNT-162b2 vac 10/14/20 Recorded pneumococcal 23-valent vaccine 8 04/07/19 Given 1Result Comment: screening negative 2Result Comment: [facility]# [id number] 3Result Comment: [05/25/2018] [facility] lot number [id number] exp 01/26/[address] [facility] 97036-206-89 4Result Comment: [08/20/2017] [facility] [id number] 5Admin Note: VIM dated 01/29/12 GIVEN TODAY 6Result Comment: [facility]# [id number] 7Admin Note: VIM dated 08/22/11 GIVEN TODAY 8Result Comment: [facility]#[id number] Medications acetaminophen 500 mg oral capsule 2 [...] 1 Refills, Soft Stop, 12/06/23 17:28:00 EDT, [facility]/pharmacy #5, Partial fill upon patient request [...] 05/17/23 16:45:00 EDT, Route to Pharmacy Electronically, [facility]/pharmacy #2024, Partial fill upon patient request if the presc... Start Date: 05/17/23 Stop Date: 05/17/24 Status: Ordered diclofenac 1% topical gel See Instructions, APPLY TO AFFECTED AREA 4 TIMES A DAY, # 100 Gm, 1 Refills, Maintenance, 11/07/23 7:48:00 EDT, [facility]/pharmacy #2024, 25, APPLY TO AFFECTED AREA [...] Gm, 0 Refills, Maintenance, 02/28/21 16:31:00 EDT, [place], [facility]/pharmacy #2024, Partial fill upon patient request if the prescription is for... Start Date: 02/28/21 Status: Ordered FLUoxetine 10 mg oral capsule 10 mg, 1, capsule, By Mouth, Daily, to be taken with 20mg capsules to equal 30mg daily, # 90 capsule, Refills 1, Tot. Refills 1, Maintenance, 07/31/23 19:01:00 EST, Route to Pharmacy Electronically, [facility]/pharmacy #2024, Partial fill upon patient reques... Start Date: 07/31/23 Status: Ordered FLUoxetine 20 mg oral capsule 1, capsule, By Mouth, Daily, # 90 capsule, Refills 1, Tot. Refills 1, Maintenance, 07/31/23 19:01:00 EST, Route to Pharmacy Electronically, [facility]/pharmacy #2024, 157.5, cm, 07/13/23 9:57:00 EST, Height, 145.9, kg, 05/22/23 7:39:00 EDT, Dry Weight Start Date: 07/31/23 Status: Ordered gabapentin 300 mg oral capsule 600 mg, 2, capsule, By Mouth, 3 times a day, # 180 capsule, Refills 3, Tot. Refills 3, Maintenance,08/25/22 22:35:00 EST, Route to Pharmacy Electronically, [facility]/pharmacy #2024, Partial fill upon patient request [...] tablet, 0 Refills, Maintenance, 10/12/23 6:42:00 EDT, [facility]/pharmacy #2024, 157.5, cm, 07/13/23 9:57:00 EST, Height, 145.9, kg, 05/22/23 7:39:00 EDT, Dry Weight Start Date: 10/12/23 Status: Ordered meclizine 25 mg oral tablet See Instructions, PRN Dizziness, 1 tablet By Mouth 3 times a day, # 30 tablet, 0 Refills, Maintenance, 02/27/23 10:43:00 EDT, [facility]/pharmacy #2025, Partial fill upon patient request [...] Refills, Maintenance, 10/24/23 11:39:00 EDT, ER Tablet, [facility]/pharmacy #2025, Partial fill upon patient request [...] 1 Refills, Maintenance, 11/23/23 17:40:00 EDT,Capsule, [facility], Partial fill upon patient request if the prescription is for a schedule II opioid drug., 157.5, cm, 10/18/23 15:15:00 EDT,... Start Date: 11/23/23 Status: Ordered zolpidem 10 mg oral tablet 1 tablet = 10 mg, By Mouth, Daily at bedtime, # 30 tablet, 0 Refills, Maintenance, 12/10/23 11:53:00 EDT, [facility], Partial fill upon patient request if the prescription is for a schedule II opioid drug., 157.5, cm, 10/18/23 15:15:00 EDT, He... Start Date: 12/10/23 Status: Ordered Problem List Condition Confirmation Course [...] Repair Hernia Umbilical Laparoscopic Emily HENNING, Yasemin 10/24/23 Unknown Umbilicus Device Identifier Serial Number Lot or Batch Number Manufacturing Date Expiration Date Distinct Identification Code MRI Safety Implantable Status Assigning Authority [id number] Unknown [id number] Unknown 08/26/24 Unknown Unknown Active GS1 Patient Care team information Care Team Personnel Name: Celestina Trinidad MD Position: [facility] Physician - Primary Care Member Role: PCP Address: Address: [address] [place] [address] Name: Hemalatha Lucas RN Position: [facility] RN Member Role: Primary Care Nurse Name: Lauren Mack RN Position: [facility] AMB Nurse Member Role: Primary Care Nurse Name: Madelaine Ruiz RN Position: [facility] RN Member Role: Primary Care Nurse Name: Lora Santiago RN Position: [facility] SN RN Member Role: Primary Care Nurse Name: Mayco Ro RN Position: [facility] RN Member Role: Primary Care Nurse Name: Heydi Potts RN Position: [facility] SN RN Member Role: Primary Care Nurse Name: Janice Romano LPN Position: [facility] RN Member Role: Primary Care Nurse Name: Nadya Low RN Position: [facility] RN Member Role: Primary Care Nurse Name: Mirna Greenfield RN Position: [facility] RN Member Role: Primary Care Nurse Name: Nessa Bonilla RN Position: [facility] Horse Rancher Member Role: Primary Care Nurse Care Team Related Persons Name: DINESH SARGENT Address: home [address] [place] [address] Name: BON DE Address: home [address] [address]
--- OUTSIDE RECORDS SUMMARY | 2024-06-24 14:10 | XMS_ITS | Continuity of Care Document ---
Author Organization [facility] Address [address] [place] [id number]- Care Team Providers Care Flight Operations Manager Name Role Phone Vivi HENNING, Celestina Givens Primary Care Physician Encounter [facility] Date(s): 07/14/22 - 08/13/22 [facility] [address] [place] [id number] Allergies, Adverse Reactions, Alerts No Known Allergies Immunizations Given and Recorded Vaccine Date Status Refusal Reason [id number] 12y+ bivalent booster vax 06/14/22 Recorded influenza [...] inactivated 4 07/31/12 Gi hali SARS-CoV-2 mRNA (uphjxcu-cmhk-olojo) vax 02/14/22 Recorded SARS-CoV-2 (COVID-19) mRNA BNT-162b2 vac 05/06/21 Given SARS-CoV-2 (COVID-19) mRNA BNT-162b2 vac 11/04/20 Recorded SARS-CoV-2 (COVID-19) mRNA BNT-162b2 vac 10/14/20 Recorded pneumococcal 23-valent vaccine 5 04/07/19 Given tetanus/diphtheria/pertussis, acel(Tdap) 6 08/13/12 Given 1Result Comment: [facility]# [id number] 2Result Comment: [05/25/2018] [employer] lot number [id number] exp 01/26/[address] [facility] [id number] 3Result Comment: [08/20/2017] [facility] [id number] 4Admin Note: VIM dated 01/29/12 GIVEN TODAY 5Result Comment: [facility]#[id number] 6Admin Note: VIM dated 08/22/11 GIVEN TODAY [...] Stop, 04/10/2215:14:00 EDT, Route to Pharmacy Electronically, [id number], [facility]/pharmacy #2025, 158, cm, 04/10/22 14:56:00 EDT, Height, 143,... Start Date: 04/10/22 Status: Ordered amLODIPine 10 mg oral tablet 1 tablet, By Mouth, Daily, # 90 tablet, 0 Refills, Maintenance, 07/21/22 17:34:00 EST, [facility], 158, cm, 07/21/22 15:09:00 EST, Height, 143, kg, 01/04/21 10:42:00 EDT, Dry Weight Start Date: 07/21/22 Status: Ordered Anoro Ellipta 62.5 mcg-25 mcg/inh inhalation powder 1 puffs, By Mouth, Daily, # 1 each, 6 Refills, Maintenance, 05/11/22 13:00:00 EDT, Powder, [facility], Partial fill upon patient request if [...] Refills, Maintenance, 08/01/22 16:58:00 EST, Tablet, [facility]/pharmacy #202, Partial fill upon patient [...] Gm, 1 Refills, 09/19/21 12:51:00 EST, [facility]/pharmacy #202, 25, APPLY TOPICALLY 4 TIMES A DAY, 160.02, cm, 07/25/21 16:20:00 EST, Height, 143, kg,01/04/21 10:42:00 EDT, Dry Weight Start Date: 09/19/21 Status: Ordered doxycycline hyclate 100 mg oral tablet 1 tablet, By Mouth, 2 times a day, # 20 tablet, 0 Refills, Maintenance, 08/10/22 16:34:00 EST, [facility], 159, cm, 08/01/22 14:14:00 EST, Height, 143, kg, 01/04/21 10:42:00 EDT, Dry Weight Start Date: 08/10/22 Stop Date: 08/20/22 Status: Ordered Flonase 50 mcg/inh nasal spray See Instructions, 2 sprays Nares twice daily x 1 week, then once daily x 1-2 weeks until symptoms improve, # 16 Gm, 0 Refills, Maintenance, 02/28/21 16:31:00 EDT, [place], [facility]/pharmacy #202, Partial fill upon patient request if the prescription is for... Start Date: 02/28/21 Status: Ordered FLUoxetine 20 mg oral capsule See Instructions, TAKE 1 CAPSULE BY MOUTH EVERY DAY, # 90 capsule, Refills 1, Maintenance, 06/13/2215:26:00 EST, Instructions Replace Required Details, Route to Pharmacy Electronically, [facility], 158, cm, 06/09/22 11:21:00 EST, Height, 143, kg... Start Date: 06/13/22 Status: Ordered gabapentin 300 mg oral capsule 600 mg, 2, capsule, By Mouth, 2 times a day, # 120 capsule, Refills 1, Tot. Refills 1, Maintenance,07/22/22 8:06:00 EST, Route to Pharmacy Electronically, [facility]/pharmacy #2024, Partial fill upon patient request if the prescription is for a schedule II... Start Date: 07/22/22 Status: Ordered levothyroxine 0.137 mg oral tablet 1 tablet = 137 mcg, By Mouth, Daily, 1 tab on days 1-6, take 2 tabs on day 7, # 102 tablet, 1 Refills, Maintenance, 07/03/22 14:41:00 EST, Tablet, [facility]/pharmacy #202, Partial fill upon patient request if the prescription is for a schedule II opioid dr... Start Date: 07/03/22 Status: Ordered levothyroxine 0.137 mg oral tablet See Instructions, TAKE 1 TABLET BY MOUTH ON DAYS 1-6, THEN TAKE 2 TABLETS BY MOUTH ON DAY 7 Needs TSH lab work for refills, # 96 tablet, 0 Refills, 06/29/22 15:47:00 EST, [facility]/pharmacy #2024, 158, cm,06/09/22 11:21:00 EST, Height, 143, kg, 01/04/21 1... Start Date: 06/29/22 Status: Ordered meclizine 25 mg oral tablet See Instructions, PRN Dizziness, 1 tablet By Mouth 3 times a day, # 30 tablet, 0 Refills, Maintenance, 05/11/21 13:11:00 EDT, [facility]/pharmacy #2024, Partial fill upon patient [...] Refills, Maintenance, 08/01/22 16:58:00 EST, Tablet, [facility]/pharmacy #2024, Partial fill upon patient [...] Acute 09/27/22 16:00:00 EST, 08/01/22 21:26:00EST, Ointment, [facility]/pharmacy #2024, Partial fill upon patient [...] Team Personnel Name: Celestina Trinidad MD Position: [facility] Primary Care Physician Member Role: PCP Address: Address: [address] [place] [address] [id number] Name: Lauren Mack RN Position: [facility] Nurse Member Role: Primary Care Nurse Name: Lora Santiago RN Position: [facility] SN RN Member Role: Primary Care Nurse Name: Mayco Ro RN Position: [facility] RN Member Role: Primary Care Nurse Name: Heydi Potts RN Position: [facility] RN Member Role: Primary Care Nurse Name: Nadya Low RN Position: [facility] RN Member Role: Primary Care Nurse Name: Mirna Greenfield RN Position: [facility] RN Member Role: Primary Care Nurse Name: Nessa Bonilla RN Position: [facility] Hospital Catering Sales Manager Member Role: Primary Care Nurse Care Team Related Persons Name: ROSETTAROLA JOHNSONELLE Address: home [address] [place] [address] Name: BON DE Address: home [address] [place] [address]
--- OUTSIDE RECORDS SUMMARY | 2024-06-24 14:10 | XMS_ITS | Continuity of Care Document ---
Author Organization [facility] Address [address] [place] [address]- Care Team Providers Care Rim Fire Charger Operator Name Role Phone Vivi HENNING, Celestina Givens Primary Care Physician Encounter [facility] Date(s): 01/25/24 - 02/24/24 [facility] [address] [place] [address]- Allergies, Adverse Reactions, Alerts No Known Allergies [...] 08/21/22 Given tetanus/diphtheria/pertussis, acel(Tdap) 7 08/13/12 Given [id number]-[id number] 12y+ bivalent booster vax 06/14/22 Recorded SARS-CoV-2 mRNA (bwijcvh-whzq-kpaic) vax 02/14/22 Recorded SARS-CoV-2 (COVID-19) mRNA BNT-162b2 vac 05/06/21 Given SARS-CoV-2 (COVID-19) mRNA BNT-162b2 vac 11/04/20 Recorded SARS-CoV-2 (COVID-19) mRNA BNT-162b2 vac 10/14/20 Recorded pneumococcal 23-valent vaccine 8 04/07/19 Given 1Result Comment: screening negative 2Result Comment: [facility]# [id number] 3Result Comment: [05/25/2018] [facility] lot number [id number] exp 01/26/[address] [facility] [id number] 4Result Comment: [08/20/2017] [facility] [id number] 5Admin Note: VIM dated 01/29/12 GIVEN TODAY 6Result Comment: [facility]# [id number] 7Admin Note: VIM dated 08/22/11 GIVEN TODAY 8Result Comment: [facility]#0368-3995-05 Medications acetaminophen 500 mg oral capsule 2 [...] 1 Refills, Soft Stop, 12/06/23 17:28:00 EDT, [facility]/pharmacy #5, Partial fill upon patient request if [...] 05/17/23 16:45:00 EDT, Route to Pharmacy Electronically, [facility]/pharmacy #2024, Partial fill upon patient request if the presc... Start Date: 05/17/23 Stop Date: 05/17/24 Status: Ordered diclofenac 1% topical gel See Instructions, APPLY TO AFFECTED AREA 4 TIMES A DAY, # 100 Gm, 1 Refills, Maintenance, 11/07/23 7:48:00 EDT, [facility]/pharmacy #2024, 25, APPLY TO AFFECTED AREA 4 TIMES A DAY, 157.5, cm, 10/18/23 15:15:00 EDT, Height, 145.9, kg, 05/22/23 7:39:00 EDT, . Start Date: 11/07/23 Status: Ordered diclofenac 1% topical gel See Instructions, APPLY TO AFFECTED AREA 4 TIMES A DAY. NOT COVERED, # 100 Gm, 1 Refills, Maintenance, 02/01/24 13:44:00 EDT, [facility], 30, APPLY TO AFFECTED AREA 4 TIMES [...] Gm, 0 Refills, Maintenance, 02/28/21 16:31:00 EDT, [place], [facility]/pharmacy #2025, Partial fill upon patient request if the prescription is for... Start Date: 02/28/21 Status: Ordered FLUoxetine 10 mg oral capsule 1, capsule, By Mouth, Daily, INSTR:TO BE TAKEN WITH 20MG CAPSULES TO EQUAL 30MG DAILY, # 90 capsule, Refills 1, Maintenance, 01/25/24 9:11:00 EDT, Route to Pharmacy Electronically, [facility], 157.5, cm, 01/22/24 10:31:00 EDT, Height, 145.9, kg,... Start Date: 01/25/24 Status: Ordered gabapentin 300 mg oral capsule 600 mg, 2, capsule, By Mouth, 3 times a day, # 180 capsule, Refills 3, Tot. Refills 3, Maintenance,08/25/22 22:35:00 EST, Route to Pharmacy Electronically, [facility]/pharmacy #2024, Partial fill upon patient request if [...] Refills, Maintenance, 12/28/23 16:17:00 EDT, [facility], 157.5, cm, 10/18/23 15:15:00 EDT, Height, 145.9, kg, 05/22/23 7:39:00 EDT, Dry Weight Start Date: 12/28/23 Status: Ordered meclizine 25 mg oral tablet See Instructions, PRN Dizziness, 1 tablet By Mouth 3 times a day, # 30 tablet, 0 Refills, Maintenance, 02/27/23 10:43:00 EDT, [facility]/pharmacy #2025, Partial fill [...] tablet, 0 Refills, Maintenance, 11/29/23 15:24:00 EDT, [facility]/pharmacy #2025, 157.5, cm, 10/18/23 1... Start Date: [...] Code MRI Safety Implantable Status Assigning Authority [id number] Unknown [id number] Unknown 08/26/24 Unknown Unknown Active GS1 Patient Care team information Care Team Personnel Name: Celestina Trinidad MD Position: [facility] Physician - Primary Care Member Role: PCP Address: Address: [address] [place] [address] Name: Hemalatha Lucas RN Position: [facility] RN Member Role: Primary Care Nurse Name: Lauren Mack RN Position: [facility] AMB Nurse Member Role: Primary Care Nurse Name: Madelaine Ruiz RN Position: [facility] RN Member Role: Primary Care Nurse Name: Lora Santiago RN Position: [facility] SN RN Member Role: Primary Care Nurse Name: Mayco Ro RN Position: [facility] RN Member Role: Primary Care Nurse Name: Heydi Potts RN Position: [facility] SN RN Member Role: Primary Care Nurse Name: Janice Romano LPN Position: [facility] RN Member Role: Primary Care Nurse Name: Nadya Low RN Position: [facility] RN Member Role: Primary Care Nurse Name: Mirna Greenfield RN Position: [facility] RN Member Role: Primary Care Nurse Name: Nessa Bonilla RN Position: [facility] Hospital [place]t Member Role: Primary Care Nurse Care Team Related Persons Name: DINESH SARGENT Address: [address] [address] Name: BON DE Address: home [address] [place] [address]
--- OUTSIDE RECORDS SUMMARY | 2024-06-24 14:10 | XMS_ITS | Continuity of Care Document ---
Author Organization [facility] Address [address] [place] [address]- Care Team Providers Care Patrol Commander Name Role Phone Vivi HENNING, Celestina Givens Primary Care Physician Encounter [facility] [place] Date(s): 09/14/22 - 10/14/22 [facility] [address] [place] [address]- Allergies, Adverse Reactions, Alerts No Known Allergies Immunizations Given and Recorded Vaccine Date Status Refusal Reason tetanus/diphtheria/pertussis, acel(Tdap) 1 08/21/22 Given tetanus/diphtheria/pertussis, acel(Tdap) 2 08/13/12 Given [id number] 12y+ bivalent booster vax 06/14/22 Recorded influenza [...] inactivated 6 07/31/12 Gi hali SARS-CoV-2 mRNA (zhettje-hvmy-nyxmf) vax 02/14/22 Recorded SARS-CoV-2 (COVID-19) mRNA BNT-162b2 vac 05/06/21 Given SARS-CoV-2 (COVID-19) mRNA BNT-162b2 vac 11/04/20 Recorded SARS-CoV-2 (COVID-19) mRNA BNT-162b2 vac 10/14/20 Recorded pneumococcal 23-valent vaccine 7 04/07/19 Given 1Result Comment: [facility]# 96888-698-25 2Admin Note: VIM dated 08/22/11 GIVEN TODAY 3Result Comment: [facility]# [id number] 4Result Comment: [05/25/2018] [facility] lot number [id number] exp 01/26/2019 [facility] [id number] 5Result Comment: [08/20/2017] [facility] [phone] 6Admin Note: VIM dated 01/29/12 GIVEN TODAY 7Result Comment: [facility]#[id number] Medications acetaminophen 500 mg oral capsule 2 [...] Stop, 04/10/2215:14:00 EDT, Route to Pharmacy Electronically, [id number], [facility]/pharmacy #2025, 158, cm, 04/10/22 14:56:00 EDT, Height, 143,... Start Date: 04/10/22 Status: Ordered amLODIPine 5 mg oral tablet 1 tablet, By Mouth, Daily, # 30 tablet, 5 Refills, Maintenance, 08/24/22 20:08:00 EST, [facility], 159, cm, 08/21/22 11:38:00 EST, Height, 143, kg, 01/04/21 10:42:00 EDT, Dry Weight Start Date: 08/24/22 Status: Ordered budesonide-formoterol 80 mcg-4.5 mcg/inh inhalation aerosol with adapter 2, puffs, Inhalation, 2 times a day, PRN, use with spacer chamber, rinse mouth and throat after use, # 10.2 Gm, Refills 5, Tot. Refills 5, Maintenance, 09/12/22 11:06:00 EST, Aerosol, Route to Pharmacy Electronically, [id number]... Start Date: 09/12/22 Status: Ordered cilostazol 50 mg oral tablet 1 tablet = 50 mg, By Mouth, Daily, # 180 tablet, 0 Refills, Maintenance, 09/02/22 10:35:00 EST, [facility], [facility] upon [...] EST, Route to Pharmacy Electronically, [facility]/pharmacy #2025, Partial fill upon patient request if the p... Start Date: 08/31/22 Status: Ordered Flonase 50 mcg/inh nasal spray See Instructions, 2 sprays Nares twice daily x 1 week, then once daily x 1-2 weeks until symptoms improve, # 16 Gm, 0 Refills, Maintenance, 02/28/21 16:31:00 EDT, [place], [facility]/pharmacy #2025, Partial fill upon patient request if the prescription is for... Start Date: 02/28/21 Status: Ordered FLUoxetine 20 mg oral capsule See Instructions, TAKE 1 CAPSULE BY MOUTH EVERY DAY, # 90 capsule, Refills 1, Maintenance, 06/13/2215:26:00 EST, Instructions Replace Required Details, Route to Pharmacy Electronically, [facility], 158, cm, 06/09/22 11:21:00 EST, Height, 143, kg... Start Date: 06/13/22 Status: Ordered furosemide 20 mg oral tablet 1, tablet, By Mouth, Daily, MAY REPEAT IF NEEDED IN 2 HOURS, # 30 tablet, Refills 0, Maintenance, 10/06/22 15:44:00 EST, Route to Pharmacy Electronically, [facility], 157, cm, 09/13/22 15:58:00 EST, Height, 145, kg, 08/29/22 20:13:00 EST, Dry Weight Start Date: 10/06/22 Status: Ordered gabapentin 300 mg oral capsule 600 mg, 2, capsule, By Mouth, 3 times a day, # 180 capsule, Refills 3, Tot. Refills 3, Maintenance,08/25/22 22:35:00 EST, Route to Pharmacy Electronically, [facility]/pharmacy #2025, Partial fill upon patient request if the prescription is for a schedule II... Start Date: 08/25/22 Status: Ordered levothyroxine 0.137 mg oral tablet 1 tablet = 137 mcg, By Mouth, Daily, 1 tab on days 1-6, take 2 tabs on day 7, # 102 tablet, 1 Refills, Maintenance, 07/03/22 14:41:00 EST, Tablet, [facility]/pharmacy #2024, Partial fill upon patient request if the prescription is for a schedule II opioid dr... Start Date: 07/03/22 Status: Ordered meclizine 25 mg oral tablet See Instructions, PRN Dizziness, 1 tablet By Mouth 3 times a day, # 30 tablet, 0 Refills, Maintenance, 05/11/21 13:11:00 EDT, [facility]/pharmacy #2024, Partial fill upon patient request if the prescriptionis for a schedule II opioid drug., 160.02, cm, 10/0... Start Date: 05/11/21 Status: Ordered meloxicam 15 mg oral tablet See Instructions, TAKE 1 TABLET BY MOUTH DAILY WITH FOOD. LABS NEEDED FOR FURTHER REFILLS, # 30 tablet, 3 Refills, Maintenance, 07/17/22 19:56:00 EST, [facility]/pharmacy #2024, 158, cm, 07/13/22 13:46:00 EST, Height, 143, kg, 01/04/21 10:42:00 EDT, Dry Weight Start Date: 07/17/22 Status: Ordered Splint See Instructions, # 1 each, Maintenance, left wrist short cock-up splint, 01/08/20 14:28:00 EDT, Supply Start Date: 01/08/20 Status: Ordered tiZANidine 2 mg oral tablet 2 mg, 1, tablet, By Mouth, 3 times a day, may use 1 tab or 2, # 21 tablet, Refills 0, Tot. Refills 0, Maintenance, 09/05/22 16:29:00 EST, Route to Pharmacy Electronically, [facility]/pharmacy #2024, Partialfill upon patient request if the [...] Team Personnel Name: Celestina Trinidad MD Position: [facility] Primary Care Physician Member Role: PCP Address: Address: [address] [place] [id number] Name: Hemalatha Lucas RN Position: [facility] RN Member Role: Primary Care Nurse Name: Lauren Mack RN Position: [facility] AMB Nurse Member Role: Primary Care Nurse Name: Madelaine Ruiz RN Position: [facility] RN Member Role: Primary Care Nurse Name: Lora Santiago RN Position: [facility] SN RN Member Role: Primary Care Nurse Name: Mayco Ro RN Position: [facility] RN Member Role: Primary Care Nurse Name: Heydi Potts RN Position: [facility] RN Member Role: Primary Care Nurse Name: Janice Romano LPN Position: [facility] RN Member Role: Primary Care Nurse Name: Nadya Low RN Position: [facility] RN Member Role: Primary Care Nurse Name: Mirna Greenfield RN Position: [facility] RN Member Role: Primary Care Nurse Name: Nessa Bonilla RN Position: [facility] Tarp Repairer Member Role: Primary Care Nurse Care Team Related Persons Name: DINESH SARGENT Address: home [address] [place] [address] Name: BON DE Address: home [address] [address]
--- OUTSIDE RECORDS SUMMARY | 2024-06-24 14:10 | XMS_ITS | Continuity of Care Document ---
Author Organization [facility] Address [address] [place] [address]- Care Team Providers Care Flying Shear Operator Name Role Phone Celestina Trinidad MD Primary Care Physician Encounter [facility] [place] [place] Date(s): 10/06/23 - 11/05/23 [facility] [address] [place] [address]- Allergies, Adverse Reactions, Alerts No Known Allergies [...] 08/21/22 Given tetanus/diphtheria/pertussis, acel(Tdap) 7 08/13/12 Given XOKO-IaO-0nYRC 12y+ bivalent booster vax 06/14/22 Recorded SARS-CoV-2 mRNA (ewvgwws-fzyz-pkige) vax 02/14/22 Recorded SARS-CoV-2 (COVID-19) mRNA BNT-162b2 vac 05/06/21 Given SARS-CoV-2 (COVID-19) mRNA BNT-162b2 vac 11/04/20 Recorded SARS-CoV-2 (COVID-19) mRNA BNT-162b2 vac 10/14/20 Recorded pneumococcal 23-valent vaccine 8 04/07/19 Given 1Result Comment: screening negative 2Result Comment: [facility]# [id number] 3Result Comment: [05/25/2018] [facility] lot number [id number] exp 01/26/2019 [facility] 65819-982-27 4Result Comment: [08/20/2017] [facility] 26678-901-04 5Admin Note: VIM dated 01/29/12 GIVEN TODAY 6Result Comment: [facility]# [id number] 7Admin Note: VIM dated 08/22/11 GIVEN TODAY 8Result Comment: [facility]#[id number] Medications acetaminophen 500 mg oral capsule 2 [...] 05/17/23 16:45:00 EDT, Route to Pharmacy Electronically, [facility]/pharmacy #2025, Partial fill upon patient request if the presc... Start Date: 05/17/23 Stop Date: 05/17/24 Status: Ordered diclofenac 1% topical gel See Instructions, APPLY TO AFFECTED AREA 4 TIMES A DAY, # 100 Gm, 1 Refills, Maintenance, 09/02/23 8:08:00 EST, [facility], 25, APPLY TO AFFECTED AREA 4 TIMES [...] Gm, 0 Refills, Maintenance, 02/28/21 16:31:00 EDT, [place], Partial fill upon patient request [...] 07/31/23 19:01:00 EST, [facility], cm, 07/13/23 9:57:00 EST, Height, 145.9, kg, 05/22/23 7:39:00 EDT, Dry Weight Start Date: 07/31/23 Status: Ordered gabapentin 300 mg oral capsule 600 mg, 2, capsule, By Mouth, 3 times a day, # 180 capsule, Refills 3, Tot. Refills 3, Maintenance,08/25/22 22:35:00 EST, [facility]ically[facility] upon patient [...] tablet, 0 Refills, Maintenance, 10/12/23 6:42:00 EDT, [facility]/pharmacy #2024, 157.5, cm, 07/13/23 9:57:00 EST, Height, 145.9, kg, 05/22/23 7:39:00 EDT, Dry Weight Start Date: 10/12/23 Status: Ordered meclizine 25 mg oral tablet See Instructions, PRN Dizziness, 1 tablet By Mouth 3 times a day, # 30 tablet, 0 Refills, Maintenance, 02/27/23 10:43:00 EDT, [facility]/pharmacy #2024, Partial fill upon [...] tablet, 0 Refills, Maintenance, 11/05/23 16:28:00 EDT, [facility]/pharmacy #2025, Partial fill upon patient [...] Code MRI Safety Implantable Status Assigning Authority [id number] Unknown [id number] Unknown 08/26/24 Unknown Unknown Active GS1 Patient Care team information Care Team Personnel Name: Celestina Trinidad MD Position: S Physician - Primary Care Member Role: PCP Address: Address: [address] [place] [address] Name: Hemalatha Lucas RN Position: [facility] RN Member Role: Primary Care Nurse Name: Lauren Mack RN Position: [facility] AMB Nurse Member Role: Primary Care Nurse Name: Madelaine Ruiz RN Position: [facility] RN Member Role: Primary Care Nurse Name: Lora Santiago RN Position: [facility] SN RN Member Role: Primary Care Nurse Name: Mayco Ro RN Position: [facility] RN Member Role: Primary Care Nurse Name: Heydi Potts RN Position: [facility] SN RN Member Role: Primary Care Nurse Name: Janice Romano LPN Position: [facility] RN Member Role: Primary Care Nurse Name: Nadya Low RN Position: [facility] RN Member Role: Primary Care Nurse Name: Mirna Greenfield RN Position: [facility] RN Member Role: Primary Care Nurse Name: Nessa Bonilla RN Position: [facility] Procurement Engineer Member Role: Primary Care Nurse Care Team Related Persons Name: ROSETTAROLADINESH Address: home [address] [address] Name: BON DE Address: [address] [address]
--- OUTSIDE RECORDS SUMMARY | 2024-06-24 14:10 | XMS_ITS | Continuity of Care Document ---
Author Organization [facility] em Address Unknown Care Team Providers Care Supervisor Special Education Name Role Phone Celestina Trinidad MD Primary Care Physician Encounter [facility] [place] [facility] Date(s): 06/14/23 - 07/22/23 [facility] Attending Physician: Liliana Allison Admitting Physician: Liliana Allison Allergies, Adverse Reactions, Alerts No Known Allergies [...] 08/21/22 Given tetanus/diphtheria/pertussis, acel(Tdap) 7 08/13/12 Given [id number] 12y+ bivalent booster vax 06/14/22 Recorded SARS-CoV-2 mRNA (oepbvbr-[id number]-spier) vax 02/14/22 Recorded SARS-CoV-2 (COVID-19) mRNA BNT-162b2 vac 05/06/21 Given SARS-CoV-2 (COVID-19) mRNA BNT-162b2 vac 11/04/20 Recorded SARS-CoV-2 (COVID-19) mRNA BNT-162b2 vac 10/14/20 Recorded pneumococcal 23-valent vaccine 8 04/07/19 Given 1Result Comment: screening negative 2Result Comment: [facility]# [id number] 3Result Comment: [05/25/2018] [facility] lot number [id number] exp 01/26/2019 [facility] [id number] 4Result Comment: [08/20/2017] [facility] [id number] 5Admin Note: VIM dated 01/29/12 GIVEN TODAY 6Result Comment: [facility][NOTE 3]# [id number] 7Admin Note: VIM dated 08/22/11 GIVEN TODAY 8Result Comment: [facility][NOTE 3]#[id number] Medications acetaminophen 500 mg oral capsule 2 [...] 05/17/23 16:45:00 EDT, Route to Pharmacy Electronically, [facility]/pharmacy #2025, Partial fill upon patient request if the presc... Start Date: 05/17/23 Stop Date: 05/17/24 Status: Ordered diclofenac 1% topical gel See Instructions, APPLY TOPICALLY 4 TIMES A DAY, # 100 Gm, 1 Refills, Maintenance, 06/05/23 10:25:00 EST, [facility]/pharmacy #2024, 50, APPLY TOPICALLY 4 TIMES A DAY, 157.5, cm, 05/22/23 7:39:00 EDT, Height, 145.9, kg, 05/22/23 7:39:00 EDT, Dry Weight Start Date: 06/05/23 Status: Ordered Flonase 50 mcg/inh nasal spray See Instructions, 2 sprays Nares twice daily x 1 week, then once daily x 1-2 weeks until symptoms improve, # 16 Gm, 0 Refills, Maintenance, 02/28/21 16:31:00 EDT, [place], [facility]/pharmacy #2025, Partial fill upon patient request [...] 04/03/23 11:23:00 EDT, Route to Pharmacy Electronically, [facility]/pharmacy #202, 157, cm, 03/14/23 11:02:00 EDT, Height,145, [...] Refills, Maintenance, 02/27/23 7:25:00 EDT, [facility], 157, cm, 12/08/22 14:27:00 EDT, Height, 145, kg, 08/29/22 20:13:00 EST, Dry... Start Date: 02/27/23 Status: Ordered levothyroxine 150 mcg (0.15 mg) oral tablet 1 tablet = 150 mcg, By Mouth, Daily, # 90 tablet, 0 Refills, Maintenance, 07/15/23 17:38:00 EST, Tablet, [facility]/pharmacy #2024, Partial fill [...] tablet, 0 Refills, Maintenance, 07/10/23 11:57:00 EST, [facility]/pharmacy #2025, Partial fill upon patient request [...] Code MRI Safety Implantable Status Assigning Authority [id number] Unknown [id number] Unknown 08/26/24 Unknown Unknown Active GS1 Patient Care team information Care Team Personnel Name: Celestina Trinidad MD Position: S Physician - Primary Care Member Role: PCP Address: Address: [address] [place] [id number] Name: Hemalatha Lucas RN Position: [facility] RN Member Role: Primary Care Nurse Name: Lauren Mack RN Position: [facility] AMB Nurse Member Role: Primary Care Nurse Name: Madelaine Ruiz RN Position: [facility] RN Member Role: Primary Care Nurse Name: Lora Santiago RN Position: [facility] SN RN Member Role: Primary Care Nurse Name: Mayco Ro RN Position: [facility] RN Member Role: Primary Care Nurse Name: Heydi Potts RN Position: [facility] SN RN Member Role: Primary Care Nurse Name: Janice Romano LPN Position: [facility] RN Member Role: Primary Care Nurse Name: Nadya Low RN Position: [facility] RN Member Role: Primary Care Nurse Name: Mirna Greenfield RN Position: [facility] RN Member Role: Primary Care Nurse Name: Nessa Bonilla RN Position: [facility] Shirt Presser Member Role: Primary Care Nurse Care Team Related Persons Name: DINESH SARGENT Address: [address] [place] [address] Name: BON DE Address: home [address] [place] [address]
--- OUTSIDE RECORDS SUMMARY | 2024-06-24 14:10 | XMS_ITS | Continuity of Care Document ---
Author Organization [facility] y Address [address] [place] [address], [address] [place] [address]- Care Team Providers Care Audit Specialist Name Role Phone Florentino AHN, Elder Hannah Primary Care Physician Encounter [facility] Date(s): 10/12/20 - 12/17/20 [facility] [address] [place] [address], [address] [place], [place] [address] Attending Physician: Shae Mosqueda DO Referring Physician: Elder Good NP Allergies, Adverse Reactions, [...] tetanus/diphtheria/pertussis, acel(Tdap) 6 08/13/12 Given 1Result Comment: [facility]# [id number] 2Result Comment: [05/25/2018] [facility] lot number [id number] exp 01/26/2019 [facility] [id number] 3Result Comment: [08/20/2017] [facility] [id number] 4Admin Note: VIM dated 01/29/12 GIVEN TODAY 5Result Comment: [facility]#[id number] 6Admin Note: VIM dated 08/22/11 GIVEN TODAY [...] 10/27/20 14:48:00 EDT, Route to Pharmacy Electronically, [id number], [facility]/pharmacy #2024, 160.02, cm, 10/19/20 11:04:00 EDT, Height, 156... Start Date: 10/27/20 Status: Ordered diclofenac 1% topical gel See Instructions, APPLY TOPICALLY 4 TIMES A DAY, # 100 Gm, 1 Refills, 10/27/20 12:37:00 EDT, [facility]/pharmacy #2024, 25, APPLY TOPICALLY 4 TIMES A DAY, 160.02, cm, 10/19/20 11:04:00 EDT, Height, 156.81, kg, 10/19/20 11:04:00 EDT, Dry Weight Start Date: 10/27/20 Status: Ordered FLUoxetine 20 mg oral capsule 20 mg, 1, capsule, By Mouth, Daily, # 30 capsule, Refills 5, Tot. Refills 5, Maintenance, 05/13/20 9:34:00 EDT, Route to Pharmacy Electronically, [facility]/pharmacy #2024, replacing 10mg dose, 161, cm, 05/13/20 8:28:00 EDT, Height Start Date: 05/13/20 Status: Ordered levothyroxine 0.137 mg oral tablet See Instructions, Take 1 tablet by mouth on days 1-6, then take 2 tablets by mouth on day 7, # 121 tablet, 5 Refills, Maintenance, 12/07/20 9:46:00 EDT, [facility], 160.02, cm, 10/19/20 11:04:00 EDT, Height, 156.81, kg, 10/19/20 11:04:00 EDT,... Start Date: 12/07/20 Status: Ordered meloxicam 15 mg oral tablet 1 tablet, By Mouth, Daily, WITH FOOD., # 30 tablet, 1 Refills, Maintenance, 10/24/20 10:06:00 EDT, [facility] STORE [facility], 160.02, cm, 10/19/20 11:04:00 EDT, Height, 156.81, [...] 08/04/19 17:54:00 EST, Route to Pharmacy Electronically, [facility]/pharmacy #5, 161, cm, 08/04/19 14:44:00 EST, Height Start Date: 08/04/19 Stop Date: 08/18/19 Status: Ordered traMADol 50 mg oral tablet 2 tablet = 100 mg, By Mouth, Every 12 hours, as needed for pain masspat checked, # 120 tablet, 2 Refills, Maintenance, 09/13/20 16:54:00 EST, [facility]/pharmacy #5, 161, cm, 08/18/20 15:29:00 EST, Height Start Date: 09/13/20 Stop Date: 12/12/20 Status: Ordered zolpidem 10 mg oral tablet 1 tablet = 10 mg, By Mouth, Daily at bedtime, PRN for sleep, for 30 days, masspat check may fill less, # 30 tablet, 3 Refills, Acute 01/08/21 9:34:00 EDT, 09/10/20 9:34:00 EST, Tablet, [facility], 161, cm, 08/18/20 15:29:00 EST, Height [...]
--- OUTSIDE RECORDS SUMMARY | 2024-06-24 14:10 | XMS_ITS | Continuity of Care Document ---
Author Organization [facility] Address [address] [address]- Care Team Providers Care Shoe Shanker Name Role Phone Celestina Trinidad MD Primary Care Physician Encounter [facility] [place] Date(s): 10/02/22 - 10/09/22 [facility] [address] [address]- Attending Physician: Hui HENNING, Jeannine Moreira Admitting Physician: Hui HENNING, Jeannine Moreira Referring Physician: Celestina Trinidad MD Allergies, Adverse Reactions, Alerts No Known Allergies Immunizations Given and Recorded Vaccine Date Status Refusal Reason tetanus/diphtheria/pertussis, acel(Tdap) 1 08/21/22 Given tetanus/diphtheria/pertussis, acel(Tdap) 2 08/13/12 Given [id number] 12y+ bivalent booster vax 06/14/22 Recorded influenza [...] inactivated 6 07/31/12 Gi [facility]i SARS-CoV-2 mRNA (bbpefng-jllt-xywfr) vax 02/14/22 Recorded SARS-CoV-2 (COVID-19) mRNA BNT-162b2 vac 05/06/21 Given SARS-CoV-2 (COVID-19) mRNA BNT-162b2 vac 11/04/20 Recorded SARS-CoV-2 (COVID-19) mRNA BNT-162b2 vac 10/14/20 Recorded pneumococcal 23-valent vaccine 7 04/07/19 Given 1Result Comment: [facility]# [id number] 2Admin Note: VIM dated 08/22/11 GIVEN TODAY 3Result Comment: [facility]# [id number] 4Result Comment: [05/25/2018] [facility] lot number [id number] exp 01/26/2019 [facility] [id number] 5Result Comment: [08/20/2017] [facility] [id number] 6Admin Note: VIM dated 01/29/12 GIVEN TODAY 7Result Comment: [facility]#[id number] Medications acetaminophen 500 mg oral capsule 2 [...] Stop, 04/10/2215:14:00 EDT, Route to Pharmacy Electronically, [id number], [facility]/pharmacy #2025, 158, cm, 04/10/22 14:56:00 EDT, Height, 143,... Start Date: 04/10/22 Status: Ordered amLODIPine 5 mg oral tablet 1 tablet, By Mouth, Daily, # 30 tablet, 5 Refills, Maintenance, 08/24/22 20:08:00 EST, [facility], 159, cm, 08/21/22 11:38:00 EST, Height, 143, kg, 06/08/21 10:42:00 EDT, Dry Weight Start Date: 08/24/22 Status: Ordered Augmentin 875 mg-125 mg oral tablet 1 tablet, By Mouth, Every 12 hours, for 6 week(s), # 84 tablet, 0 Refills, Acute 10/12/22 13:28:00 EDT, 08/31/22 13:28:00 EST, Tablet, [facility]/pharmacy #2024, Partial fill upon patient request if the prescription is for a schedule II opioid drug., 157, cm... Start Date: 08/31/22 Stop Date: 10/12/22 Status: Ordered budesonide-formoterol 80 mcg-4.5 mcg/inh inhalation aerosol with adapter 2, puffs, Inhalation, 2 times a day, PRN, use with spacer chamber, rinse mouth and throat after use, # 10.2 Gm, Refills 5, Tot. Refills 5, Maintenance, 09/12/22 11:06:00 EST, Aerosol, Route to Pharmacy Electronically, [id number]... Start Date: 09/12/22 Status: Ordered cilostazol 50 mg oral tablet 1 tablet = 50 mg, By Mouth, Daily, # 180 tablet, 0 Refills, Maintenance, 09/02/22 10:35:00 EST, Tablet, [facility]/pharmacy #2024, Partial fill upon [...] 100 Gm, 1 Refills, 09/22/22 7:28:00 EST, [facility]/pharmacy #2024, 25, APPLY TOPICALLY [...] 08/31/22 13:30:00 EST, Route to Pharmacy Electronically, [facility]/pharmacy #2024, Partial fill upon patient request if the p... Start Date: 08/31/22 Status: Ordered Flonase 50 mcg/inh nasal spray See Instructions, 2 sprays Nares twice daily x 1 week, then once daily x 1-2 weeks until symptoms improve, # 16 Gm, 0 Refills, Maintenance, 02/28/21 16:31:00 EDT, [place], [facility]/pharmacy #2024, Partial fill upon patient request if the prescription is for... Start Date: 02/28/21 Status: Ordered fluconazole 200 mg oral tablet 2 tablet = 400 mg, By Mouth, Daily, for 6 week(s), # 84 tablet, 0 Refills, Acute 10/12/22 13:28:00 EDT, 08/31/22 13:28:00 EST, Tablet, [facility]/pharmacy #202, Partial fill upon patient request if the prescription is for a schedule II opioid drug., 157, cm... Start Date: 08/31/22 Stop Date: 10/12/22 Status: Ordered FLUoxetine 20 mg oral capsule See Instructions, TAKE 1 CAPSULE BY MOUTH EVERY DAY, # 90 capsule, Refills 1, Maintenance, 06/13/2215:26:00 EST, Instructions Replace Required Details, Route to Pharmacy Electronically, [facility], 158, cm, 06/09/22 11:21:00 EST, Height, 143, kg... Start Date: 06/13/22 Status: Ordered furosemide 20 mg oral tablet 1, tablet, By Mouth, Daily, MAY REPEAT IF NEEDED IN 2 HOURS, # 30 tablet, Refills 0, Maintenance, 10/06/22 15:44:00 EST, Route to Pharmacy Electronically, [facility], 157, cm, 09/13/22 15:58:00 EST, Height, 145, kg, 08/29/22 20:13:00 EST, Dry Weight Start Date: 10/06/22 Status: Ordered gabapentin 300 mg oral capsule 600 mg, 2, capsule, By Mouth, 3 times a day, # 180 capsule, Refills 3, Tot. Refills 3, Maintenance,08/25/22 22:35:00 EST, Route to Pharmacy Electronically, [facility]/pharmacy #2024, Partial fill upon patient request if the prescription is for a schedule II... Start Date: 08/25/22 Status: Ordered levothyroxine 0.137 mg oral tablet 1 tablet = 137 mcg, By Mouth, Daily, 1 tab on days 1-6, take 2 tabs on day 7, # 102 tablet, 1 Refills, Maintenance, 07/03/22 14:41:00 EST, Tablet, [facility]/pharmacy #2024, Partial fill upon patient request if the prescription is for a schedule II opioid drMelonie.. Start Date: 07/03/22 Status: Ordered meclizine 25 mg oral tablet See Instructions, PRN Dizziness, 1 tablet By Mouth 3 times a day, # 30 tablet, 0 Refills, Maintenance, 05/11/21 13:11:00 EDT, [facility]/pharmacy #2024, Partial fill upon patient request if the prescriptionis for a schedule II opioid drug., 160.02, cm, 10/0... Start Date: 05/11/21 Status: Ordered meloxicam 15 mg oral tablet See Instructions, TAKE 1 TABLET BY MOUTH DAILY WITH FOOD. LABS NEEDED FOR FURTHER REFILLS, # 30 tablet, 3 Refills, Maintenance, 07/17/22 19:56:00 EST, [facility]/pharmacy #2024, 158, cm, 07/13/22 [...] 09/05/22 16:29:00 EST, Route to Pharmacy Electronically, [facility]/pharmacy #2024, Partialfill upon patient request if the prescription is fo... Start Date: 09/05/22 Stop Date: 09/12/22 Status: Ordered traMADol 50 mg oral tablet See Instructions, 2 tab po qam and one tab po q pm prn moderate to severe pain. 28 days. mass pat ok, # 81 tablet, 0 Refills, Maintenance, 09/21/22 16:44:00 EST, [facility]/pharmacy #2024, 157, cm, 09/13/2314:58:00 EST, Height, 145, kg, 08/29/22 20:13:00 E... Start Date: 09/21/22 Status: Ordered zolpidem 10 mg oral tablet 1 tablet = 10 mg, By Mouth, Daily at bedtime, PRN for sleep, for 30 days, masspat check may fill less, # 30 tablet, 0 Refills, Acute 11/01/22 17:14:00 EDT, 10/02/22 17:14:00 EST, Tablet, [facility]/pharmacy#2024, 157, cm, 09/13/22 15:58:00 EST, Height, 145... Start Date: 10/02/22 Stop Date: 11/01/22 Status: Ordered zolpidem 10 mg oral tablet 1 tablet = 10 mg, By Mouth, Daily at bedtime, PRN for sleep, for 30 days, masspat check may fill less, # 30 tablet, 0 Refills, Acute 11/20/22 16:47:00 EDT, 10/21/22 16:47:00 EDT, Tablet, [facility]/pharmacy#2024, 157, cm, 09/13/22 15:58:00 EST, Height, 145... [...] Team Personnel Name: Celestina Trinidad MD Position: [facility] Primary Care Physician Member Role: PCP Address: Address: [address] [place] [address] Name: Hemalatha Lucas RN Position: [facility] RN Member Role: Primary Care Nurse Name: Lauren Mack RN Position: [facility] Nurse Member Role: Primary Care Nurse Name: Madelaine Ruiz RN Position: [facility] RN Member Role: Primary Care Nurse Name: Lora Santiago RN Position: [facility] SN RN Member Role: Primary Care Nurse Name: Mayco Ro RN Position: [facility] RN Member Role: Primary Care Nurse Name: Heydi Potts RN Position: [facility] RN Member Role: Primary Care Nurse Name: Janice Romano LPN Position: [facility] RN Member Role: Primary Care Nurse Name: Nadya Low RN Position: [facility] RN Member Role: Primary Care Nurse Name: Mirna Greenfield RN Position: [facility] RN Member Role: Primary Care Nurse Name: Nessa Bonilla RN Position: [facility] Hospital Refrigeration Service Technician Member Role: Primary Care Nurse Care Team Related Persons Name: DINESH SARGENT Address: home [address] [place] [address] Name: BON DE Address: home [address] [address]
--- OUTSIDE RECORDS SUMMARY | 2024-06-24 14:10 | XMS_ITS | Continuity of Care Document ---
Author Organization [facility] Address [address] [place] [address]- Care Team Providers Care Class B Driver Name Role Phone Florentino AHN, Elder Hannah Primary Care Physician [phone] [facility]counter [facility] Date(s): 08/17/20 - 09/16/20 [facility] [address] [place] [address]- Allergies, Adverse Reactions, Alerts Substance Reaction Severity [...] tetanus/diphtheria/pertussis, acel(Tdap) 6 08/13/12 Given 1Result Comment: [facility]# [id number] 2Result Comment: [05/25/2018] [facility] lot number [id number] exp 01/26/2019 [facility] [id number] 3Result Comment: [08/20/2017] [facility] 03461-544-09 4Admin Note: VIM dated 01/29/12 GIVEN TODAY 5Result Comment: [facility]#[id number] 6Admin Note: VIM dated 08/22/11 GIVEN TODAY [...] PUFFS EVERY 6 HOURS NEEDED FOR WHEEZE, [facility]/pharmacy #2024 Start Date: 05/27/19 Status: Ordered diclofenac 1% topical gel See Instructions, APPLY TOPICALLY 4 TIMES A DAY, # 100 Gm, 0 Refills, Maintenance, [facility], APPLY TOPICALLY 4 TIMES A DAY, 161, cm, 06/08/20 13:48:00 EST, Height Start Date: 07/12/20 Status: Ordered FLUoxetine 20 mg oral capsule 20 mg, 1, capsule, By Mouth, Daily, # 30 capsule, Refills 5, Tot. Refills 5, Maintenance, 05/13/20 9:34:00 EDT, Route to Pharmacy Electronically, [facility]/pharmacy #2024, replacing 10mg dose, 161, cm, 05/13/20 8:28:00 EDT, Height Start Date: 05/13/20 Status: Ordered levothyroxine 0.137 mg oral tablet See Instructions, Take 1 tablet by mouth on days 1-6, then take 2 tablets by mouth on day 7, # 121 tablet, 1 Refills, Maintenance, 08/31/20 7:32:00 EST, [facility]/pharmacy #2024, 161, cm, 08/18/20 15:29:00EST, Height Start Date: 08/31/20 Status: Ordered meloxicam 15 mg oral tablet 1 tablet, By Mouth, Daily, WITH FOOD., # 30 tablet, 1 Refills, Maintenance, 08/30/20 7:37:00 EST, [facility], 161, cm, 08/18/20 15:29:00 EST, Height Start [...] 08/04/19 17:54:00 EST, Route to Pharmacy Electronically, [facility]/pharmacy #5, 161, cm, 08/04/19 14:44:00 EST, Height Start Date: 08/04/19 Stop Date: 08/18/19 Status: Ordered traMADol 50 mg oral tablet 2 tablet = 100 mg, By Mouth, Every 12 hours, for 30 days, as needed for pain masspat checked, # 120tablet, 2 Refills, Hard Stop 11/15/20 16:20:00 EDT, 08/17/20 16:20:00 EST, [facility]/pharmacy #5, 161,cm, 06/08/20 13:48:00 EST, Height Start Date: 08/17/20 Stop Date: 11/15/20 Status: Ordered traMADol 50 mg oral tablet 2 tablet = 100 mg, By Mouth, Every 12 hours, as needed for pain masspat checked, # 120 tablet, 2 Refills, Maintenance, 09/13/20 16:54:00 EST, [facility]/pharmacy #5, 161, cm, 08/18/20 15:29:00 EST, Height Start Date: 09/13/20 Stop Date: 12/12/20 Status: Ordered zolpidem 10 mg oral tablet 1 tablet = 10 mg, By Mouth, Daily at bedtime, PRN for sleep, for 30 days, masspat check may fill less, # 30 tablet, 3 Refills, Acute 01/14/21 9:22:00 EDT, 09/16/20 9:22:00 EST, Tablet, [facility]/pharmacy #5, 161, cm, 08/18/20 15:29:00 EST, Height Start Date: 09/16/20 Stop Date: 01/14/21 Status: Ordered zolpidem 10 mg oral tablet 1 tablet = 10 mg, By Mouth, Daily at bedtime, PRN for sleep, for 30 days, masspat check may fill less, # 30 tablet, 3 Refills, Acute 01/08/21 9:34:00 EDT, 09/10/20 9:34:00 EST, Tablet, [facility]/pharmacy #5, 161, cm, 08/18/20 15:29:00 EST, Height [...]
--- OUTSIDE RECORDS SUMMARY | 2024-06-24 14:10 | XMS_ITS | Continuity of Care Document ---
Author Organization [facility] Address [address] [place] [address]- Care Team Providers Care Family Nurse Name Role Phone Vivi HENNING, Celestina Givens Primary Care Physician Encounter [facility] Date(s): 05/10/23 - 06/09/23 [facility] [address] [place] [address]- Allergies, Adverse Reactions, Alerts No Known Allergies Immunizations Given and Recorded Vaccine Date Status Refusal Reason tetanus/diphtheria/pertussis, acel(Tdap) 1 08/21/22 Given tetanus/diphtheria/pertussis, acel(Tdap) 2 08/13/12 Given [id number] 12y+ bivalent booster vax 06/14/22 Recorded influenza [...] inactivated 6 07/31/12 Gi hali SARS-CoV-2 mRNA ([id number]) vax 02/14/22 Recorded SARS-CoV-2 (COVID-19) mRNA BNT-162b2 vac 05/06/21 Given SARS-CoV-2 (COVID-19) mRNA BNT-162b2 vac 11/04/20 Recorded SARS-CoV-2 (COVID-19) mRNA BNT-162b2 vac 10/14/20 Recorded pneumococcal 23-valent vaccine 7 04/07/19 Given 1Result Comment: [facility]# [id number] 2Admin Note: VIM dated 08/22/11 GIVEN TODAY 3Result Comment: [facility]# [id number] 4Result Comment: [05/25/2018] [facility] lot number [id number] exp 01/26/2019 [facility] [id number] 5Result Comment: [08/20/2017] [facility] [id number] 6Admin Note: VIM dated 01/29/12 GIVEN TODAY 7Result Comment: [facility]#[id number] Medications acetaminophen 500 mg oral capsule 2 [...] Stop, 04/10/2215:14:00 EDT, Route to Pharmacy Electronically, [id number], [facility]/pharmacy #2025, 158, cm, 04/10/22 14:56:00 [...] 05/17/23 16:45:00 EDT, Route to Pharmacy Electronically, [facility]/pharmacy #2024, Partial fill upon patient request if the presc... Start Date: 05/17/23 Stop Date: 05/17/24 Status: Ordered diclofenac 1% topical gel See Instructions, APPLY TOPICALLY 4 TIMES A DAY, # 100 Gm, 1 Refills, Maintenance, 06/05/23 10:25:00 EST, [facility]/pharmacy #2024, 50, APPLY TOPICALLY 4 TIMES A DAY, 157.5, cm, 05/22/23 7:39:00 EDT, Height, 145.9, kg, 05/22/23 7:39:00 EDT, Dry Weight Start Date: 06/05/23 Status: Ordered Flonase 50 mcg/inh nasal spray See Instructions, 2 sprays Nares twice daily x 1 week, then once daily x 1-2 weeks until symptoms improve, # 16 Gm, 0 Refills, Maintenance, 02/28/21 16:31:00 EDT, [place], [facility]/pharmacy #2024, Partial fill upon patient request if the prescription is for... Start Date: 02/28/21 Status: Ordered FLUoxetine 10 mg oral capsule 10 mg, 1, capsule, By Mouth, Daily, to be taken with 20mg capsules to equal 30mg daily, # 90 capsule, Refills 1, Tot. Refills 1, Maintenance, 04/03/23 11:25:00 EDT, Route to Pharmacy Electronically, [facility]/pharmacy #2024, Partial fill upon patient reques... Start Date: 04/03/23 Status: Ordered FLUoxetine 20 mg oral capsule 1, capsule, By Mouth, Daily, # 90 capsule, Refills 1, Tot. Refills 1, Maintenance, 04/03/23 11:23:00 EDT, Route to Pharmacy Electronically, [facility]/pharmacy #2024, 157, cm, 03/14/23 11:02:00 EDT, Height,145, kg, 08/29/22 20:13:00 EST, Dry Weight Start Date: 04/03/23 Status: Ordered gabapentin 300 mg oral capsule 600 mg, 2, capsule, By Mouth, 3 times a day, # 180 capsule, Refills 3, Tot. Refills 3, Maintenance,08/25/22 22:35:00 EST, Route to Pharmacy Electronically, [facility]/pharmacy #2024, Partial fill upon patient request [...] tablet, 2 Refills, Maintenance, 02/27/23 7:25:00 EDT, [facility] STORE 40580, 157, cm, 12/08/22 14:27:00 EDT, Height, 145, [...] 0 Refills, Maintenance, 06/01/23 17:10:00 EDT, [facility], Partial fill upon patient [...] 16:30:00 EST, Aerosol, Route to Pharmacy Electronically, [id number], [facility]/pharmacy #2025, 157.5, cm, 05/22/23 7:39:00 EDT, Height... Start Date: 06/07/23 Status: Ordered traMADol 50 mg oral tablet See Instructions, 2 tab po qam and one tab po q pm prn moderate to severe pain. 28 days. mass pat ok, # 81 tablet, 0 Refills, Maintenance, 05/14/23 16:14:00 EDT, [facility]/pharmacy #2025, 157, cm, 03/14/2311:02:00 EDT, Height, 145, kg, 08/29/22 20:13:00 E... Start Date: 05/14/23 Status: Ordered zolpidem 10 mg oral tablet 1 tablet = 10 mg, By Mouth, Daily at bedtime, PRN for sleep, for 30 days, # 30 tablet, 0 Refills, Acute 06/10/23 12:40:00 EST, 05/11/23 12:40:00 EDT, Tablet, [facility]/pharmacy #2024, early refill for travel. Thanks., 157, cm, 03/14/23 11:02:00 EDT, Height,... Start Date: 05/11/23 Stop Date: 06/10/23 Status: Ordered Problem List Condition Confirmation Course [...] Code MRI Safety Implantable Status Assigning Authority [id number] Unknown [id number] Unknown 08/26/24 Unknown Unknown Active GS1 Patient Care team information Care Team Personnel Name: Celestina Trinidad MD Position: [facility] Physician - Primary Care Member Role: PCP Address: Address: [address] [place] [address] Name: Hemalatha Lucas RN Position: [facility] RN Member Role: Primary Care Nurse Name: Lauren Mack RN Position: [facility] AMB Nurse Member Role: Primary Care Nurse Name: Madelaine Ruiz RN Position: [facility] RN Member Role: Primary Care Nurse Name: Lora Santiago RN Position: [facility] SN RN Member Role: Primary Care Nurse Name: Mayco Ro RN Position: [facility] RN Member Role: Primary Care Nurse Name: Heydi Potts RN Position: [facility] RN Member Role: Primary Care Nurse Name: Jnaice Romano LPN Position: [facility] RN Member Role: Primary Care Nurse Name: Nadya Low RN Position: [facility] RN Member Role: Primary Care Nurse Name: Mirna Greenfield RN Position: [facility] RN Member Role: Primary Care Nurse Name: Nessa Bonilla RN Position: [facility] Hospital Drilling Engineering Manager Member Role: Primary Care Nurse Care Team Related Persons Name: ROLA SARGENTELLE Address: home [address] [place] [address] Name: BON DE Address: [address] [address]
--- OUTSIDE RECORDS SUMMARY | 2024-06-24 14:10 | XMS_ITS | Continuity of Care Document ---
Author Organization [facility] Address [address] [place] [address]- Care Team Providers Care Piano Tuner Name Role Phone Vivi HENNING, Celestina Givens Primary Care Physician Encounter [facility] Date(s): 08/22/22 - 09/21/22 [facility] [address] [place] [address]- Allergies, Adverse Reactions, Alerts No Known Allergies Immunizations Given and Recorded Vaccine Date Status Refusal Reason tetanus/diphtheria/pertussis, acel(Tdap) 1 08/21/22 Given tetanus/diphtheria/pertussis, acel(Tdap) 2 08/13/12 Given [id number] 12y+ bivalent booster vax 06/14/22 Recorded influenza [...] inactivated 6 07/31/12 Gi hali SARS-CoV-2 mRNA ([id number]-fvoi-gdtrf) vax 02/14/22 Recorded SARS-CoV-2 (COVID-19) mRNA BNT-162b2 vac 05/06/21 Given SARS-CoV-2 (COVID-19) mRNA BNT-162b2 vac 11/04/20 Recorded SARS-CoV-2 (COVID-19) mRNA BNT-162b2 vac 10/14/20 Recorded pneumococcal 23-valent vaccine 7 04/07/19 Given 1Result Comment: [facility]# [id number] 2Admin Note: VIM dated 08/22/11 GIVEN TODAY 3Result Comment: [facility]# [id number] 4Result Comment: [05/25/2018] [facility] lot number [id number] exp 01/26/2019 [facility] [id number] 5Result Comment: [08/20/2017] [facility] [id number] 6Admin Note: VIM dated 01/29/12 GIVEN TODAY 7Result Comment: [facility]#[id number] Medications acetaminophen 500 mg oral capsule 2 [...] Stop, 04/10/2215:14:00 EDT, Route to Pharmacy Electronically, [id number], [facility]/pharmacy #2025, 158, cm, 04/10/22 14:56:00 EDT, Height, 143,... Start Date: 04/10/22 Status: Ordered amLODIPine 5 mg oral tablet 1 tablet, By Mouth, Daily, # 30 tablet, 5 Refills, Maintenance, 08/24/22 20:08:00 EST, [facility], 159, cm, 08/21/22 11:38:00 EST, Height, 143, kg, 01/04/21 10:42:00 EDT, Dry Weight Start Date: 08/24/22 Status: Ordered Augmentin 875 mg-125 mg oral tablet 1 tablet, By Mouth, Every 12 hours, for 6 week(s), # 84 tablet, 0 Refills, Acute 10/12/22 13:28:00 EDT, 08/31/22 13:28:00 EST, [place], [facility]/pharmacy #2024, Partial fill upon patient [...] 11:06:00 EST, Aerosol, Route to Pharmacy Electronically, [id number]... Start Date: 09/12/22 Status: Ordered cilostazol 50 mg oral tablet 1 tablet = 50 mg, By Mouth, Daily, # 180 tablet, 0 Refills, Maintenance, 09/02/22 10:35:00 EST, Tablet, [facility]/pharmacy #2024, Partial fill upon patient [...] each, Maintenance, surgical, calf length 30-40 mm Hg, 09/08/22 12:35:00 EST, Supply Start Date: 09/08/22 Status: Ordered diclofenac 1% topical gel See Instructions, APPLY TOPICALLY 4 TIMES A DAY, # 100 Gm, 1 Refills, 09/19/21 12:51:00 EST, [facility]/pharmacy #2024, 25, APPLY TOPICALLY 4 [...] 08/31/22 13:30:00 EST, Route to Pharmacy Electronically, [facility]/pharmacy #202, Partial fill upon patient request if the p... Start Date: 08/31/22 Status: Ordered Flonase 50 mcg/inh nasal spray See Instructions, 2 sprays Nares twice daily x 1 week, then once daily x 1-2 weeks until symptoms improve, # 16 Gm, 0 Refills, Maintenance, 02/28/21 16:31:00 EDT, [place], [facility]/pharmacy #2025, Partial fill upon patient request if the prescription is for... Start Date: 02/28/21 Status: Ordered fluconazole 200 mg oral tablet 2 tablet = 400 mg, By Mouth, Daily, for 6 week(s), # 84 tablet, 0 Refills, Acute 10/12/22 13:28:00 EDT, 08/31/22 13:28:00 EST, Tablet, [facility]/pharmacy #2025, Partial fill upon patient request if the prescription is for a schedule II opioid drug., 157, cm... Start Date: 08/31/22 Stop Date: 10/12/22 Status: Ordered FLUoxetine 20 mg oral capsule See Instructions, TAKE 1 CAPSULE BY MOUTH EVERY DAY, # 90 capsule, Refills 1, Maintenance, 06/13/2215:26:00 EST, Instructions Replace Required Details, Route to Pharmacy Electronically, [facility] STORE 115[facility], 158, cm, 06/09/22 11:21:00 EST, Height, 143, kg... Start Date: 06/13/22 Status: Ordered furosemide 20 mg oral tablet 1, tablet, By Mouth, Daily, MAY REPEAT IF NEEDED IN 2 HOURS, # 30 tablet, Refills 0, Maintenance, 09/07/22 12:45:00 EST, Route to Pharmacy Electronically, [facility] STORE [facility], 157, cm, 09/05/22 15:49:00 EST, Height, 145, kg, 08/29/22 20:13:00 EST, Dry Weight Start Date: 09/07/22 Status: Ordered gabapentin 300 mg oral capsule 600 mg, 2, capsule, By Mouth, 3 times a day, # 180 capsule, Refills 3, Tot. Refills 3, Maintenance,08/25/22 22:35:00 EST, [facility] Partial fill upon patient request if the prescription is for a schedule II... Start Date: 08/25/22 Status: Ordered levothyroxine 0.137 mg oral tablet 1 tablet = 137 mcg, By Mouth, Daily, 1 tab on days 1-6, take 2 tabs on day 7, # 102 tablet, 1 Refills, Maintenance, 07/03/22 14:41:00 EST, Tablet, [facility]/pharmacy #2024, Partial fill upon patient request if the prescription is for a schedule II opioid dr... Start Date: 07/03/22 Status: Ordered meclizine 25 mg oral tablet See Instructions, PRN Dizziness, 1 tablet By Mouth 3 times a day, # 30 tablet, 0 Refills, Maintenance, 05/11/21 13:11:00 EDT, [facility]/pharmacy #2024, Partial fill upon patient request if the prescriptionis for a schedule II opioid drug., 160.02, cm, 10/0... Start Date: 05/11/21 Status: Ordered meloxicam 15 mg oral tablet See Instructions, TAKE 1 TABLET BY MOUTH DAILY WITH FOOD. LABS NEEDED FOR FURTHER REFILLS, # 30 tablet, 3 Refills, Maintenance, 07/17/22 19:56:00 EST, [facility]/pharmacy #202, 158, cm, 07/13/22 13:46:00 EST, Height, 143, [...] 09/05/22 16:29:00 EST, [facility] upon patient request if the prescription is fo... Start Date: 09/05/22 Stop Date: 09/12/22 Status: Ordered traMADol 50 mg oral tablet See Instructions, 2 tab po qam and one tab po q pm prn moderate to severe pain. 28 days. mass pat ok, # 81 tablet, 0 Refills, Maintenance, 09/21/22 16:44:00 EST, [facility]/pharmacy #2024, 157, cm, 09/13/2314:58:00 EST, Height, 145, kg, 08/29/22 20:13:00 E... Start Date: 09/21/22 Status: Ordered zolpidem 10 mg oral tablet 1 tablet = 10 mg, By Mouth, Daily at bedtime, PRN for sleep, for 30 days, masspat check may fill less, # 10 tablet, 0 Refills, Acute 10/21/22 16:47:00 EDT, 09/21/22 16:47:00 EST, Tablet, [facility]/pharmacy#2024, 157, cm, 09/13/22 15:58:00 EST, Height, 145... Start Date: 09/21/22 Stop Date: 10/21/22 Status: Ordered Problem List Condition Confirmation Course [...] Team Personnel Name: Celestina Trinidad MD Position: [facility] Primary Care Physician Member Role: PCP Address: Address: [address] [place] [id number] Name: Hemalatha Lucas RN Position: [facility] RN Member Role: Primary Care Nurse Name: Lauren Mack RN Position: [facility] AMB Nurse Member Role: Primary Care Nurse Name: Madelaine Ruiz RN Position: [facility] RN Member Role: Primary Care Nurse Name: Lora Santiago RN Position: [facility] SN RN Member Role: Primary Care Nurse Name: Mayco Ro RN Position: [facility] RN Member Role: Primary Care Nurse Name: Heydi Potts RN Position: [facility] RN Member Role: Primary Care Nurse Name: Janice Romano LPN Position: [facility] RN Member Role: Primary Care Nurse Name: Nadya Low RN Position: [facility] RN Member Role: Primary Care Nurse Name: Mirna Greenfield RN Position: [facility] RN Member Role: Primary Care Nurse Name: Nessa Bonilla RN Position: [facility] Hospital Molder Meat Member Role: Primary Care Nurse Care Team Related Persons Name: DINESH SARGENT Address: home [address] [place] [address] Name: BON ED Address: [address] [address]
--- OUTSIDE RECORDS SUMMARY | 2024-06-24 14:10 | XMS_ITS | Continuity of Care Document ---
Author Organization [facility] Address [address] [place] [address]- Care Team Providers Care Lathe Machinist Name Role Phone Florentino AHN, Elder Hannah Primary Care Physician [facility]counter [facility] Date(s): 09/16/20 - 10/16/20 [facility] [address] [place] [address]- Allergies, Adverse Reactions, Alerts Substance Reaction Severity [...] tetanus/diphtheria/pertussis, acel(Tdap) 6 08/13/12 Given 1Result Comment: [facility]# [id number] 2Result Comment: [05/25/2018] [facility] lot number [id number] exp 01/26/2019 [facility] 75644-403-75 3Result Comment: [08/20/2017] [facility] [id number] 4Admin Note: VIM dated 01/29/12 GIVEN TODAY 5Result Comment: [facility]#[id number] 6Admin Note: VIM dated 08/22/11 GIVEN TODAY [...] PUFFS EVERY 6 HOURS NEEDED FOR WHEEZE, [facility]/pharmacy #2024 Start Date: 05/27/19 Status: Ordered diclofenac 1% topical gel See Instructions, APPLY TOPICALLY 4 TIMES A DAY, # 100 Gm, 0 Refills, Maintenance, [facility],25, APPLY TOPICALLY 4 TIMES A DAY, 161, cm, 06/08/20 13:48:00 EST, Height Start Date: 07/12/20 Status: Ordered FLUoxetine 20 mg oral capsule 20 mg, 1, capsule, By Mouth, Daily, # 30 capsule, Refills 5, Tot. Refills 5, Maintenance, 05/13/20 9:34:00 EDT, Route to Pharmacy Electronically, [facility]/pharmacy #2024, replacing 10mg dose, 161, cm, 05/13/20 8:28:00 EDT, Height Start Date: 05/13/20 Status: Ordered levothyroxine 0.137 mg oral tablet See Instructions, Take 1 tablet by mouth on days 1-6, then take 2 tablets by mouth on day 7, # 121 tablet, 1 Refills, Maintenance, 08/31/20 7:32:00 EST, [facility]/pharmacy #2024, 161, cm, 08/18/20 15:29:00EST, Height Start Date: 08/31/20 Status: Ordered meloxicam 15 mg oral tablet 1 tablet, By Mouth, Daily, WITH FOOD., # 30 tablet, 1 Refills, Maintenance, 08/30/20 7:37:00 EST, [facility], 161, cm, 08/18/20 15:29:00 EST, Height Start [...] 08/04/19 17:54:00 EST, Route to Pharmacy Electronically, [facility]/pharmacy #5, 161, cm, 08/04/19 14:44:00 EST, Height Start Date: 08/04/19 Stop Date: 08/18/19 Status: Ordered traMADol 50 mg oral tablet 2 tablet = 100 mg, By Mouth, Every 12 hours, for 30 days, as needed for pain masspat checked, # 120tablet, 2 Refills, Hard Stop 11/15/20 16:20:00 EDT, 08/17/20 16:20:00 EST, [facility]/pharmacy #5, 161,cm, 06/08/20 13:48:00 EST, Height Start Date: 08/17/20 Stop Date: 11/15/20 Status: Ordered traMADol 50 mg oral tablet 2 tablet = 100 mg, By Mouth, Every 12 hours, as needed for pain masspat checked, # 120 tablet, 2 Refills, Maintenance, 09/13/20 16:54:00 EST, [facility]/pharmacy #5, 161, cm, 08/18/20 15:29:00 EST, Height Start Date: 09/13/20 Stop Date: 12/12/20 Status: Ordered zolpidem 10 mg oral tablet 1 tablet = 10 mg, By Mouth, Daily at bedtime, PRN for sleep, for 30 days, masspat check may fill less, # 30 tablet, 3 Refills, Acute 01/14/21 9:22:00 EDT, 09/16/20 9:22:00 EST, Tablet, [facility]/pharmacy #5, 161, cm, 08/18/20 15:29:00 EST, Height Start Date: 09/16/20 Stop Date: 01/14/21 Status: Ordered zolpidem 10 mg oral tablet 1 tablet = 10 mg, By Mouth, Daily at bedtime, PRN for sleep, for 30 days, masspat check may fill less, # 30 tablet, 3 Refills, Acute 01/08/21 9:34:00 EDT, 09/10/20 9:34:00 EST, Tablet, [facility]/pharmacy #5, 161, cm, 08/18/20 15:29:00 EST, [...]
--- OUTSIDE RECORDS SUMMARY | 2024-06-24 14:10 | XMS_ITS | Continuity of Care Document ---
Author Organization [facility] Address [address] [place] [address]- Care Team Providers Care Blind Lacer Name Role Phone Vivi HENNING, Celestina Givens Primary Care Physician [facility]counter [facility] Date(s): 06/26/22 - 07/26/22 [facility] [address] [place] [address]- Allergies, Adverse Reactions, Alerts No Known Allergies Immunizations Given and Recorded Vaccine Date Status Refusal Reason [id number] 12y+ bivalent booster vax 06/14/22 Recorded influenza [...] inactivated 4 07/31/12 Gi hali SARS-CoV-2 mRNA ([id number]-[id number]-[id number]) vax 02/14/22 Recorded SARS-CoV-2 (COVID-19) mRNA BNT-162b2 vac 05/06/21 Given SARS-CoV-2 (COVID-19) mRNA BNT-162b2 vac 11/04/20 Recorded SARS-CoV-2 (COVID-19) mRNA BNT-162b2 vac 10/14/20 Recorded pneumococcal 23-valent vaccine 5 04/07/19 Given tetanus/diphtheria/pertussis, acel(Tdap) 6 08/13/12 Given 1Result Comment: [facility]# [id number] 2Result Comment: [05/25/2018] [facility] lot number [id number] exp 01/26/[address] [facility] [id number] 3Result Comment: [08/20/2017] [facility] [id number] 4Admin Note: VIM dated 01/29/12 GIVEN TODAY 5Result Comment: [facility]#[id number] 6Admin Note: VIM dated 08/22/11 GIVEN TODAY [...] Stop, 04/10/2215:14:00 EDT, Route to Pharmacy Electronically, [id number], [facility]/pharmacy #2025, 158, cm, 04/10/22 14:56:00 EDT, Height, 143,... Start Date: 04/10/22 Status: Ordered amLODIPine 10 mg oral tablet 1 tablet, By Mouth, Daily, # 90 tablet, 0 Refills, Maintenance, 07/21/22 17:34:00 EST, [facility], 158, cm, 07/21/22 15:09:00 EST, Height, 143, kg, 01/04/21 10:42:00 EDT, Dry Weight Start Date: 07/21/22 Status: Ordered Anoro Ellipta 62.5 mcg-25 mcg/inh inhalation powder 1 puffs, By Mouth, Daily, # 1 each, 6 Refills, Maintenance, 05/11/22 13:00:00 EDT, Powder, [facility], Partial fill upon patient request if [...] 100 Gm, 1 Refills, 09/19/21 12:51:00 EST, [facility]/pharmacy #2024, 25, APPLY TOPICALLY 4 TIMES A DAY, 160.02, cm, 07/25/21 16:20:00 EST, Height, 143, kg,01/04/21 10:42:00 EDT, Dry Weight Start Date: 09/19/21 Status: Ordered doxycycline hyclate 100 mg oral tablet 1 tablet = 100 mg, By Mouth, 2 times a day, for 10 days, # 20 tablet, 0 Refills, Acute 08/02/22 1:51:00 EST, 07/23/22 1:51:00 EST, Capsule, [facility]/pharmacy #2024, Partial fill upon patient request if the prescription is for a schedule II opioid drug., 15... Start Date: 07/23/22 Stop Date: 08/02/22 Status: Ordered doxycycline hyclate 100 mg oral tablet 1 tablet, By Mouth, 2 times a day, # 20 tablet, 0 Refills, Maintenance, 07/21/22 17:34:00 EST, [facility], 158, cm, 07/21/22 15:09:00 EST, Height, 143, kg, 01/04/21 10:42:00 EDT, Dry Weight Start Date: 07/21/22 Stop Date: 07/31/22 Status: Ordered Flonase 50 mcg/inh nasal spray See Instructions, 2 sprays Nares twice daily x 1 week, then once daily x 1-2 weeks until symptoms improve, # 16 Gm, 0 Refills, Maintenance, 02/28/21 16:31:00 EDT, [place], [facility]/pharmacy #2024, Partial fill upon patient request if the prescription is for... Start Date: 02/28/21 Status: Ordered FLUoxetine 20 mg oral capsule See Instructions, TAKE 1 CAPSULE BY MOUTH EVERY DAY, # 90 capsule, Refills 1, Maintenance, 06/13/2215:26:00 EST, Instructions Replace Required Details, Route to Pharmacy Electronically, [facility], 158, cm, 06/09/22 11:21:00 EST, Height, 143, kg... Start Date: 06/13/22 Status: Ordered gabapentin 300 mg oral capsule 600 mg, 2, capsule, By Mouth, 2 times a day, # 120 capsule, Refills 1, Tot. Refills 1, Maintenance,07/22/22 8:06:00 EST, Route to Pharmacy Electronically, [facility]/pharmacy #2025, Partial fill upon patient request if the prescription is for a schedule II... Start Date: 07/22/22 Status: Ordered levothyroxine 0.137 mg oral tablet 1 tablet = 137 mcg, By Mouth, Daily, 1 tab on days 1-6, take 2 tabs on day 7, # 102 tablet, 1 Refills, Maintenance, 07/03/22 14:41:00 EST, Tablet, [facility]/pharmacy #2025, Partial fill upon patient request if the prescription is for a schedule II opioid drMelonie.. Start Date: 07/03/22 Status: Ordered levothyroxine 0.137 mg oral tablet See Instructions, TAKE 1 TABLET BY MOUTH ON DAYS 1-6, THEN TAKE 2 TABLETS BY MOUTH ON DAY 7 Needs TSH lab work for refills, # 96 tablet, 0 Refills, 06/29/22 15:47:00 EST, [facility]/pharmacy #5, 158, cm,06/09/22 11:21:00 EST, Height, 143, kg, 01/04/21 1... Start Date: 06/29/22 Status: Ordered meclizine 25 mg oral tablet See Instructions, PRN Dizziness, 1 tablet By Mouth 3 times a day, # 30 tablet, 0 Refills, Maintenance, 05/11/21 13:11:00 EDT, [facility]/pharmacy #2024, Partial fill upon patient request [...] 08/04/22 9:15:00 EST, 07/21/22 9:15:00 EST, Tablet, [facility], Partial fill upon [...] Team Personnel Name: Celestina Trinidad MD Position: [facility] Primary Care Physician Member Role: PCP Address: Address: [address] [place] [id number] Name: Lauren Mack RN Position: [facility] Nurse Member Role: Primary Care Nurse Name: Lora Santiago RN Position: [facility] SN RN Member Role: Primary Care Nurse Name: Mayco Ro RN Position: [facility] RN Member Role: Primary Care Nurse Name: Heydi Potts RN Position: [facility] RN Member Role: Primary Care Nurse Name: Nadya Low RN Position: [facility] RN Member Role: Primary Care Nurse Name: Mirna Greenfield RN Position: [facility] RN Member Role: Primary Care Nurse Name: Nessa Bonilla RN Position: [facility] Hospital Fws Faculty Assistant Member Role: Primary Care Nurse Care Team Related Persons Name: ROSETTA DINESH Address: home [address] [place] [address] Name: BON DE Address: home [address] [address]
--- OUTSIDE RECORDS SUMMARY | 2024-06-24 14:10 | XMS_ITS | Continuity of Care Document ---
Author Organization [facility] Address [address] [place] [address]- Care Team Providers Care Dump Truck Operator Name Role Phone Vivi HENNING, Celestina Givens Primary Care Physician Encounter [facility] Date(s): 09/11/23 - 10/11/23 [facility] [address] [place] [address]- Allergies, Adverse Reactions, Alerts No Known Allergies [...] 08/21/22 Given tetanus/diphtheria/pertussis, acel(Tdap) 7 08/13/12 Given [id number] 12y+ bivalent booster vax 06/14/22 Recorded SARS-CoV-2 mRNA (aelsmvj-yjgh-bztqr) vax 02/14/22 Recorded SARS-CoV-2 (COVID-19) mRNA BNT-162b2 vac 05/06/21 Given SARS-CoV-2 (COVID-19) mRNA BNT-162b2 vac 11/04/20 Recorded SARS-CoV-2 (COVID-19) mRNA BNT-162b2 vac 10/14/20 Recorded pneumococcal 23-valent vaccine 8 04/07/19 Given 1Result Comment: screening negative 2Result Comment: [facility]# [id number] 3Result Comment: [05/25/2018] [facility] lot number [id number] exp 01/26/2019 [facility] [id number] 4Result Comment: [08/20/2017] [facility] [id number] 5Admin Note: VIM dated 01/29/12 GIVEN TODAY 6Result Comment: [facility]# [id number] 7Admin Note: VIM dated 08/22/11 GIVEN TODAY 8Result Comment: [facility]#[id number] Medications acetaminophen 500 mg oral capsule 2 [...] Refills, Maintenance, 09/02/23 8:08:00 EST, [facility], 25, APPLY TO AFFECTED AREA 4 TIMES [...] Gm, 0 Refills, Maintenance, 02/28/21 16:31:00 EDT, [place], [facility], Partial fill upon patient request [...] 07/31/23 19:01:00 EST, Route to Pharmacy Electronically, [facility]/pharmacy #2024, 157.5, cm, 07/13/23 [...] tablet, 2 Refills, Maintenance, 02/27/23 7:25:00 EDT, [facility], 157, cm, 12/08/22 14:27:00 EDT, Height, 145, kg, 08/29/22 20:13:00 EST, Dry... Start Date: 02/27/23 Status: Ordered levothyroxine 150 mcg (0.15 mg) oral tablet 1 tablet = 150 mcg, By Mouth, Daily, # 90 tablet, 0 Refills, Maintenance, 07/15/23 17:38:00 EST, Tablet, [facility]/pharmacy #2024, Partial fill upon patient request if the prescription is for a schedule IIopioid drug., 157.5, cm, 07/13/23 9:57:00 EST, [place]... Start Date: 07/15/23 Status: Ordered meclizine 25 mg oral tablet See Instructions, PRN Dizziness, 1 tablet By Mouth 3 times a day, # 30 tablet, 0 Refills, Maintenance, 02/27/23 10:43:00 EDT, [facility], Partial fill upon patient [...] tablet, 0 Refills, Maintenance, 10/08/23 17:51:00 EDT, [facility]/pharmacy #2024, Partial fill [...] Code MRI Safety Implantable Status Assigning Authority [id number] Unknown [id number] Unknown 08/26/24 Unknown Unknown Active GS1 Patient Care team information Care Team Personnel Name: Celestina Trinidad MD Position: [facility] Physician - Primary Care Member Role: PCP Address: Address: [address] [place] [address]- Name: Hemalatha Lucas RN Position: [facility] RN Member Role: Primary Care Nurse Name: Lauren Mack RN Position: [facility] AMB Nurse Member Role: Primary Care Nurse Name: Madelaine Ruiz RN Position: [facility] RN Member Role: Primary Care Nurse Name: Lora Santiago RN Position: [facility] SN RN Member Role: Primary Care Nurse Name: Mayco Ro RN Position: [facility] RN Member Role: Primary Care Nurse Name: Heydi Potts RN Position: [facility] SN RN Member Role: Primary Care Nurse Name: Janice Romano LPN Position: [facility] RN Member Role: Primary Care Nurse Name: Nadya Low RN Position: [facility] RN Member Role: Primary Care Nurse Name: Mirna Greenfield RN Position: [facility] RN Member Role: Primary Care Nurse Name: Nessa Bonilla RN Position: [facility] Logistics Clerk Member Role: Primary Care Nurse Care Team Related Persons Name: DINESH SARGENT Address: home [address] [address] Name: BON DE Address: home [address] [place] [address]
--- OUTSIDE RECORDS SUMMARY | 2024-06-24 14:10 | XMS_ITS | Continuity of Care Document ---
Author Organization [facility] Address [address] [place] [address]- Care Team Providers Care Bindery Machine Feeder Offbearer Name Role Phone Vivi HENNING, Celestina Givens Primary Care Physician [facility]counter [facility] Date(s): 11/14/22 - 12/14/22 [facility] [address] [place] [address]- Allergies, Adverse Reactions, Alerts No Known Allergies Immunizations Given and Recorded Vaccine Date Status Refusal Reason tetanus/diphtheria/pertussis, acel(Tdap) 1 08/21/22 Given tetanus/diphtheria/pertussis, acel(Tdap) 2 08/13/12 Given [id number] 12y+ bivalent booster vax 06/14/22 Recorded influenza [...] inactivated 6 07/31/12 Gi hali SARS-CoV-2 mRNA (pdsfqep-jlhd-fwben) vax 02/14/22 Recorded SARS-CoV-2 (COVID-19) mRNA BNT-162b2 vac 05/06/21 Given SARS-CoV-2 (COVID-19) mRNA BNT-162b2 vac 11/04/20 Recorded SARS-CoV-2 (COVID-19) mRNA BNT-162b2 vac 10/14/20 Recorded pneumococcal 23-valent vaccine 7 04/07/19 Given 1Result Comment: [facility]# [id number] 2Admin Note: VIM dated 08/22/11 GIVEN TODAY 3Result Comment: [facility]# [id number] 4Result Comment: [05/25/2018] [facility] lot number [id number] exp 01/26/2019 [facility] [id number] 5Result Comment: [08/20/2017] [facility] [id number] 6Admin Note: VIM dated 01/29/12 GIVEN TODAY 7Result Comment: [facility]#[id number] Medications acetaminophen 500 mg oral capsule 2 [...] Stop, 04/10/2215:14:00 EDT, Route to Pharmacy Electronically, [id number], [facility]/pharmacy #2025, 158, cm, 04/10/22 14:56:00 EDT, Height, 143,... Start Date: 04/10/22 Status: Ordered amLODIPine 10 mg oral tablet 1 tablet, By Mouth, Daily, # 90 tablet, 0 Refills, Maintenance, 10/23/22 12:47:00 EDT, [facility] ST[facility] 88[facility], 157, cm, 09/13/22 15:58:00 EST, Height, 145, kg, 08/29/22 20:13:00 EST, Dry Weight Start Date: 10/23/22 Status: Ordered budesonide-formoterol 80 mcg-4.5 mcg/inh inhalation aerosol with adapter 2, puffs, Inhalation, 2 times a day, PRN, use with spacer chamber, rinse mouth and throat after use, j44.9, # 1 each, Refills 6, Tot. Refills 6, Maintenance, 12/08/22 12:55:00 EDT, Aerosol, Route to Pharmacy Electronically, [id number]... Start Date: 12/08/22 Status: Ordered Compression Stockings [...] 100 Gm, 1 Refills, 09/22/22 7:28:00 EST, [facility]/pharmacy #2024, 25, APPLY TOPICALLY 4 TIMES [...] 08/31/22 13:30:00 EST, Route to Pharmacy Electronically, [facility]/pharmacy #2024, Partial fill upon patient request if the p... Start Date: 08/31/22 Status: Ordered Flonase 50 mcg/inh nasal spray See Instructions, 2 sprays Nares twice daily x 1 week, then once daily x 1-2 weeks until symptoms improve, # 16 Gm, 0 Refills, Maintenance, 02/28/21 16:31:00 EDT, [place], [facility], Partial fill upon patient request if the prescription is for... Start Date: 02/28/21 Status: Ordered FLUoxetine 20 mg oral capsule 1, capsule, By Mouth, Daily, # 90 capsule, Refills 1, Maintenance, 10/23/22 12:47:00 EDT, Route to Pharmacy Electronically, [facility], 157, cm, 09/13/22 15:58:00 EST, Height, 145, kg, 08/29/22 20:13:00 EST, Dry Weight Start Date: 10/23/22 Status: Ordered furosemide 20 mg oral tablet 1, tablet, By Mouth, Daily, MAY REPEAT IF NEEDED IN 2 HOURS, # 30 tablet, Refills 0, Maintenance, 11/29/22 22:18:00 EDT, Route to Pharmacy Electronically, [facility], 157, cm, 10/30/22 13:53:00 EDT, Height, 145, [...] tablet, 0 Refills, Maintenance, 05/11/21 13:11:00 EDT, [facility]/pharmacy #202, Partial fill upon patient request if the prescriptionis for a schedule II opioid drug., 160.02, cm, 10/0... Start Date: 05/11/21 Status: Ordered meloxicam 15 mg oral tablet See Instructions, TAKE 1 TABLET BY MOUTH DAILY WITH FOOD. LABS NEEDED FOR FURTHER REFILLS, # 30 tablet, 3 Refills, Maintenance, 10/18/22 21:31:00 EDT, [facility], 157, cm, 09/13/22 15:58:00 EST,Height, 145, kg, [...] 09/05/22 16:29:00 EST, Route to Pharmacy Electronically, [facility]/pharmacy #2024, Partialfill upon patient request if the prescription is fo... Start Date: 09/05/22 Stop Date: 09/12/22 Status: Ordered traMADol 50 mg oral tablet See Instructions, 2 tab po qam and one tab po q pm prn moderate to severe pain. 28 days. mass pat ok, # 81 tablet, 0 Refills, Maintenance, 10/29/22 21:38:00 EDT, [facility], 157, cm, 09/13/2314:58:00 EST, Height, [...] 12/31/22 Stop Date: 01/30/23 Status: Ordered zolpidem 10 mg oral tablet 1 tablet = 10 mg, By Mouth, Daily at bedtime, PRN for sleep, for 30 days, masspat check may fill less, # 10 tablet, 0 Refills, Acute 12/31/22 16:24:00 EDT, 12/01/22 16:24:00 EDT, Tablet, [facility], 157, cm, 10/30/22 13:53:00 EDT, Height, 145... Start Date: 12/01/22 Stop Date: 12/31/22 Status: Ordered zolpidem 5 mg oral tablet [...] Name: Celestina Trinidad MD Position: [facility] Primary Care Physician Member Role: PCP Address: Address: [address] [place] [id number] Name: Hemalatha Lucas RN Position: [facility] RN Member Role: Primary Care Nurse Name: Lauren Mack RN Position: [facility] AMB Nurse Member Role: Primary Care Nurse Name: Madelaine Ruiz RN Position: [facility] RN Member Role: Primary Care Nurse Name: Lora Santiago RN Position: [facility] SN RN Member Role: Primary Care Nurse Name: Mayco Ro RN Position: [facility] RN Member Role: Primary Care Nurse Name: Heydi Potts RN Position: [facility] RN Member Role: Primary Care Nurse Name: Janice Romano LPN Position: [facility] RN Member Role: Primary Care Nurse Name: Nadya Low RN Position: [facility] RN Member Role: Primary Care Nurse Name: Mirna Greenfield RN Position: [facility] RN Member Role: Primary Care Nurse Name: Nessa Bonilla RN Position: [facility] [place] Drill Operator Member Role: Primary Care Nurse Care Team Related Persons Name: DINESH SARGENT Address: home [address] [place] [address] Name: BON DE Address: home [address] [address]
--- OUTSIDE RECORDS SUMMARY | 2024-06-24 14:10 | XMS_ITS | Continuity of Care Document ---
Author Organization [facility] Address [address] [place] [address]- Care Team Providers Care Lacquer Coater Name Role Phone Flornetino AHN, Eldre Hannah Primary Care Physician Encounter [facility] Date(s): 05/07/20 - 06/06/20 [facility] [address] [place] [address]- Allergies, Adverse Reactions, Alerts Substance Reaction Severity [...] tetanus/diphtheria/pertussis, acel(Tdap) 6 08/13/12 Given 1Result Comment: [facility]# [id number] 2Result Comment: [05/25/2018] [facility] lot number [id number] exp 01/26/2019 [facility] [id number] 3Result Comment: [08/20/2017] [facility] [id number] 4Admin Note: VIM dated 01/29/12 GIVEN TODAY 5Result Comment: [facility]#[id number] 6Admin Note: VIM dated 08/22/11 GIVEN TODAY [...] Refills, Maintenance, 02/18/20 11:51:00 EDT, Gel, [facility]/pharmacy #2024, 161, cm, 01/08/20 13:51:00 EDT, Height Start Date: 02/18/20 Status: Ordered FLUoxetine 20 mg oral capsule 20 mg, 1, capsule, By Mouth, Daily, # 30 capsule, Refills 5, Tot. Refills 5, Maintenance, 05/13/20 9:34:00 EDT, Route to Pharmacy Electronically, [facility]/pharmacy #2024, replacing 10mg dose, 161, cm, 05/13/20 8:28:00 EDT, Height Start Date: 05/13/20 Status: Ordered levothyroxine 125 mcg (0.125 mg) oral tablet 1 tablet = 125 mcg, By Mouth, Daily, # 30 tablet, 5 Refills, Maintenance, 05/13/20 9:34:00 EDT, Tablet, [facility]/pharmacy #2024, 161, cm, 05/13/20 8:28:00 EDT, Height Start Date: 05/13/20 Status: Ordered meloxicam 15 mg oral tablet 1 tablet = 15 mg, By Mouth, Daily, Take w food., # 30 tablet, 1 Refills, Maintenance, 05/10/20 12:59:00 EDT, Tablet, [facility]/pharmacy #2024, [...] 9:34:00 EST, 05/13/20 9:34:00 EDT, Tablet, [facility]/pharmacy #5, 161, cm, 05/13/20 8:28:00 EDT, Height [...]
--- OUTSIDE RECORDS SUMMARY | 2024-06-24 14:11 | XMS_ITS | Continuity of Care Document ---
Author Organization [facility] Address [address] [place] [address]- Care Team Providers Care Associate Relations Specialist Name Role Phone Noe AHN, Mónica Graham Primary Care Physician Unava ilable [facility] Date[facility]s): 01/05/22 - 02/04/22 [facility] [address] [place] [address]- Allergies, Adverse Reactions, Alerts No Known Allergies [...] 08/13/12 Given 1Result Comment: [facility]# [id number] 2Result Comment: [05/25/2018] [facility] lot number [id number] exp 01/26/[address] [facility] [id number] 3Result Comment: [08/20/2017] [facility] [id number] 4Admin Note: VIM dated 01/29/12 GIVEN TODAY 5Result Comment: [facility]#[id number] 6Admin Note: VIM dated 08/22/11 GIVEN TODAY [...] Gm, 0 Refills, Maintenance, 02/28/21 16:31:00 EDT, [place], [facility]/pharmacy #2024, Partial fill upon patient request if the prescription is for... Start Date: 02/28/21 Status: Ordered FLUoxetine 20 mg oral capsule 20 mg, 1, capsule, By Mouth, Daily, Take with Fluoxetine 10mg for a total of 30mg, # 90 capsule, Refills 1, Tot. Refills 1, Maintenance, 12/30/21 12:34:00 EDT, Route to Pharmacy Electronically, [facility]/pharmacy #202, replacing 10mg dose, 160.02, cm, 10/28... Start Date: 12/30/21 Status: Ordered levothyroxine 0.137 mg oral tablet See Instructions, TAKE 1 TABLET BY MOUTH ON DAYS 1-6, THEN TAKE 2 TABLETS BY MOUTH ON DAY 7, # 96 tablet, 1 Refills, [facility] STORE 43494, 160.02, cm, 10/04/21 10:38:00 EST, Height, 143, kg, 01/04/21 10:42:00 EDT, Dry Weight Start Date: 11/08/21 Status: Ordered meclizine 25 mg oral tablet See Instructions, PRN Dizziness, 1 tablet By Mouth 3 times a day, # 30 tablet, 0 Refills, Maintenance, 05/11/21 13:11:00 EDT, [facility]/pharmacy #202, Partial fill upon patient request if the prescriptionis for a schedule II opioid drug., 160.02, cm, 0... Start Date: 05/11/21 Status: Ordered meloxicam 15 mg oral tablet 1 tablet, By Mouth, Daily, WITH FOOD., # 30 tablet, 3 Refills, 09/19/21 12:46:00 EST, [facility]/pharmacy #202, 160.02, cm, 07/25/21 16:20:00 EST, Height, [...]
--- OUTSIDE RECORDS SUMMARY | 2024-06-24 14:11 | XMS_ITS | Continuity of Care Document ---
Author Organization [facility] Address [address] [place] [address]- Care Team Providers Care Integration Software Developer Name Role Phone Vivi HENNING, Celestina Givens Primary Care Physician [place] [facility] [place] 03/13/24 [facility] [address] [place] [address]- Attending Physician: Calixto Beltran Admitting Physician: Calixto [...] 08/21/22 Given tetanus/diphtheria/pertussis, acel(Tdap) 7 08/13/12 Given [id number] 12y+ bivalent booster vax 06/14/22 Recorded SARS-CoV-2 mRNA (zkjvcuy-nqik-uifud) vax 02/14/22 Recorded SARS-CoV-2 (COVID-19) mRNA BNT-162b2 vac 05/06/21 Given SARS-CoV-2 (COVID-19) mRNA BNT-162b2 vac 11/04/20 Recorded SARS-CoV-2 (COVID-19) mRNA BNT-162b2 vac 10/14/20 Recorded pneumococcal 23-valent vaccine 8 04/07/19 Given 1Result Comment: screening negative 2Result Comment: [facility]# [id number] 3Result Comment: [05/25/2018] [facility] lot number [id number] exp 01/26/2019 [facility] [id number] 4Result Comment: [08/20/2017] [facility] [id number] 5Admin Note: VIM dated 01/29/12 GIVEN TODAY 6Result Comment: [facility]# [id number] 7Admin Note: VIM dated 08/22/11 GIVEN TODAY 8Result Comment: [facility]#[id number] Medications acetaminophen 500 mg oral capsule 2 [...] Refills, Soft Stop, 12/06/23 17:28:00 EDT, [facility]pharmacy [facility]2025, Partial fill upon patient request if [...] 05/17/24 16:46:00 EDT, Route to Pharmacy Electronically, [facility]/pharmacy #2024, Partial fill upon patient request if the prescription is for a... Start Date: 05/17/24 Status: Ordered cyclobenzaprine 10 mg oral tablet 10 mg, 1, tablet, By Mouth, 3 times a day, PRN, # 30 tablet, Refills 0, Tot. Refills 0, Acute 05/17/24 16:46:00 EDT, for spasm, 05/17/23 16:45:00 EDT, [facility], [facility], [...] Refills, Maintenance, 02/01/24 13:44:00 EDT, [facility], 30, APPLY TO AFFECTED AREA 4 TIMES [...] Gm, 0 Refills, Maintenance, 02/28/21 16:31:00 EDT, [place], [facility]/pharmacy #2024, Partial fill upon patient request if the prescription is for... Start Date: 02/28/21 Status: Ordered FLUoxetine 10 mg oral capsule 1, capsule, By Mouth, Daily, INSTR:TO BE TAKEN WITH 20MG CAPSULES TO EQUAL 30MG DAILY, # 90 capsule, Refills 1, Maintenance, 01/25/24 9:11:00 EDT, Route to Pharmacy Electronically, [facility], 157.5, cm, 01/22/24 10:31:00 EDT, Height, 145.9, kg,... Start Date: 01/25/24 Status: Ordered gabapentin 300 mg oral capsule 600 mg, 2, capsule, By Mouth, 3 times a day, # 180 capsule, Refills 3, Tot. Refills 3, Maintenance,08/25/22 22:35:00 EST, Route to Pharmacy Electronically, [facility]/pharmacy #2024, Partial fill upon patient request if [...] Refills, Maintenance, 12/28/23 16:17:00 EDT, [facility], 157.5, cm, 10/18/23 15:15:00 EDT, Height, 145.9, [...] 0 Refills, Maintenance, 11/29/23 15:24:00 EDT, [facility]/pharmacy #2025, 157.5, cm, 10/18/23 1... Start Date: [...] II opioid drug., 157.5, cm, 02/12/24 14:48:00 EDTGriffin. Start Date: 03/07/24 Status: Ordered Problem List [...] Code MRI Safety Implantable Status Assigning Authority [id number] Unknown [id number] Unknown 08/26/24 Unknown Unknown Active GS1 EKG study * Event Display: EKG Authored Date: Laboratory * Event Display: Non BH Lab Results Authored Date: * Event Display: Non BH Lab Results Authored Date: * Event Display: Non BH Lab Results Authored Date: * Event Display: Laboratory Result Scanned Authored Date: * Event Display: Non BH Lab Results Authored Date: * Event Display: Non BH Lab Results Authored Date: * Event Display: Non BH Lab Results Authored Date: * Event Display: Non BH Lab Results Authored Date: MR Spine * Event Display: MRI Spine Authored Date: Radiology * Event Display: Non BH Radiology Results Authored Date: * Ada Odell: PERFORM Event Display: Radiology Results Scanned Authored Date: [id number] * Fernando Jamison: PERFORM Event Display: Radiology Results Scanned Authored Date: Note * Event Display: Discharge/Transfer Note Hospital Authored Date: * Yesenia Kwon: PERFORM, SIGN, VERIFY Event Display: Patient Education/Instruction Authored Date: BMP PV Family Clinical Summary Person Information Name JORGE ALBERTO SAHU Age 52 Years 1960 12:00 AM PCP Kareen HENNING , Patrick Graham PCP Reason for Visit: Allergy Info: NKA Vital Signs Height Weight BMI Blood Pressure / Temperature Pulse Rate Respiratory Rate 02 Sat Mode of Delivery / Medication Information Albuterol (ProAir HFA 90 mcg/inh inhalation aerosol with adapter) 2 puffs, Inhalation, every 6 hours, As Needed, for wheezing, Refills: 0 Diclofenac (diclofenac sodium 75 mg oral enteric coated tablet) 1 tablet, Oral, twice a day, Refills: 0 Guaifenesin/Codeine (Robitussin-AC 10 mg-100 mg/5 ml oral syrup) 10 mL, Oral, every 6 hours, 10 days, As Needed, Cough, Refills: 0 Ibuprofen , As Needed, knee pain Ibuprofen Ibuprofen (ibuprofen 800 mg oral tablet) 1 tablet, Oral, 3 times a day, As Needed, for pain, Refills: 0 Meloxicam (meloxicam 15 mg oral tablet) 1 tablet, Oral, Daily, Refills: 1 Problem List Date Problem 10/13/11 Asthma 10/15/11 Hirsutism If the following labs have been performed in the last year, the most recent result is displayed below. Diagnostic Results Lab Result Value Date Lead Hemoglobin A1C LDL HDL Triglycerides Total Cholesterol Disclaimer: The information provided is of a general nature and is intended to be used in conjunction with the recommendations and advice of your health care practitioner. Every effort has been made to ensure that the information provided is accurate and complete at the time it is provided to you however, as your needs change, or, as new information becomes available, different or additional instructions may be required. If you have questions, please consult with your primary care provider or pharmacist, as appropriate. This information is not intended to serve as substitution for assessment and evaluation by a qualified health care provider. If you do not have a primary care provider, you may find a [facility] provider by calling [facility] at [phone]. Patient Education Information Follow-up Details: Patient Education Material: Please follow instructions discussed with your provider during this visit as well as any education documents you were given today. Patient Care team information Care Team Personnel Name: Celestina Trinidad MD Position: [facility] Physician - Primary Care Member Role: PCP Address: Address: [address] [place] [address] Name: Hemalatha Lucas RN Position: [facility] RN Member Role: Primary Care Nurse Name: Lauren Mack RN Position: [facility] AMB Nurse Member Role: Primary Care Nurse Name: Madelaine Ruiz RN Position: [facility] RN Member Role: Primary Care Nurse Name: Lora Santiago RN Position: [facility] SN RN Member Role: Primary Care Nurse Name: Mayco Ro RN Position: [facility] RN Member Role: Primary Care Nurse Name: Heydi Potts RN Position: [facility] SN RN Member Role: Primary Care Nurse Name: Janice Romano LPN Position: [facility] RN Member Role: Primary Care Nurse Name: Nadya Low RN Position: [facility] RN Member Role: Primary Care Nurse Name: Mirna Greenfield RN Position: [facility] RN Member Role: Primary Care Nurse Name: Nessa Bonilla RN Position: [facility] Hospital Deputy Prosecuting Attorney Member Role: Primary Care Nurse Care Team Related Persons Name: DINESH SARGENT Address: home [address] [place] [address] Name: BON DE Address: home [address] [address]
--- OUTSIDE RECORDS SUMMARY | 2024-06-24 14:11 | XMS_ITS | Continuity of Care Document ---
Author Organization [facility] Address [address] [place] [address]- Care Team Providers Care Emergency Services Professional Name Role Phone Vivi HENNING, Celestina Givens Primary Care Physician Encounter [facility] Date(s): 09/08/22 - 10/08/22 [facility] [address] [place] [address]- Allergies, Adverse Reactions, Alerts No Known Allergies Immunizations Given and Recorded Vaccine Date Status Refusal Reason tetanus/diphtheria/pertussis, acel(Tdap) 1 08/21/22 Given tetanus/diphtheria/pertussis, acel(Tdap) 2 08/13/12 Given [id number] 12y+ bivalent booster vax 06/14/22 Recorded influenza [...] inactivated 6 07/31/12 Gi hali SARS-CoV-2 mRNA (eoldkao-ygci-qnibr) vax 02/14/22 Recorded SARS-CoV-2 (COVID-19) mRNA BNT-162b2 vac 05/06/21 Given SARS-CoV-2 (COVID-19) mRNA BNT-162b2 vac 11/04/20 Recorded SARS-CoV-2 (COVID-19) mRNA BNT-162b2 vac 10/14/20 Recorded pneumococcal 23-valent vaccine 7 04/07/19 Given 1Result Comment: [facility]# [id number] 2Admin Note: VIM dated 08/22/11 GIVEN TODAY 3Result Comment: [facility]# [id number] 4Result Comment: [05/25/2018] [facility] lot number [id number] exp 01/26/2019 [facility] [id number] 5Result Comment: [08/20/2017] [facility] [id number] 6Admin Note: VIM dated 01/29/12 GIVEN TODAY 7Result Comment: [facility]#[id number] Medications acetaminophen 500 mg oral capsule 2 [...] Stop, 04/10/2215:14:00 EDT, Route to Pharmacy Electronically, [id number], [facility]/pharmacy #2025, 158, cm, 04/10/22 14:56:00 EDT, Height, 143,... Start Date: 04/10/22 Status: Ordered amLODIPine 5 mg oral tablet 1 tablet, By Mouth, Daily, # 30 tablet, 5 Refills, Maintenance, 08/24/22 20:08:00 EST, [facility], 159, cm, 08/21/22 11:38:00 EST, Height, 143, kg, 01/04/21 10:42:00 EDT, Dry Weight Start Date: 08/24/22 Status: Ordered Augmentin 875 mg-125 mg oral tablet 1 tablet, By Mouth, Every 12 hours, for 6 week(s), # 84 tablet, 0 Refills, Acute 10/12/22 13:28:00 EDT, 08/31/22 13:28:00 EST, Tablet, [facility]/pharmacy #2024, Partial fill upon [...] 11:06:00 EST, Aerosol, Route to Pharmacy Electronically, [id number]... Start Date: 09/12/22 Status: Ordered cilostazol 50 mg oral tablet 1 tablet = 50 mg, By Mouth, Daily, # 180 tablet, 0 Refills, Maintenance, 09/02/22 10:35:00 EST, Tablet, [facility]/pharmacy #2024, Partial fill upon [...] 100 Gm, 1 Refills, 09/22/22 7:28:00 EST, [facility]/pharmacy #2025, 25, APPLY [...] 08/31/22 13:30:00 EST, Route to Pharmacy Electronically, [facility]/pharmacy #202, Partial fill upon patient request if the p... Start Date: 08/31/22 Status: Ordered Flonase 50 mcg/inh nasal spray See Instructions, 2 sprays Nares twice daily x 1 week, then once daily x 1-2 weeks until symptoms improve, # 16 Gm, 0 Refills, Maintenance, 02/28/21 16:31:00 EDT, [place], [facility]/pharmacy #2025, Partial fill upon patient request if the prescription is for... Start Date: 02/28/21 Status: Ordered fluconazole 200 mg oral tablet 2 tablet = 400 mg, By Mouth, Daily, for 6 week(s), # 84 tablet, 0 Refills, Acute 10/12/22 13:28:00 EDT, 08/31/22 13:28:00 EST, Tablet, [facility]/pharmacy #2025, Partial fill upon patient request if the prescription is for a schedule II opioid drug., 157, cm... Start Date: 08/31/22 Stop Date: 10/12/22 Status: Ordered FLUoxetine 20 mg oral capsule See Instructions, TAKE 1 CAPSULE BY MOUTH EVERY DAY, # 90 capsule, Refills 1, Maintenance, 06/13/2215:26:00 EST, Instructions Replace Required Details, Route to Pharmacy Electronically, [facility], 158, cm, 06/09/22 11:21:00 EST, Height, 143, kg... Start Date: 06/13/22 Status: Ordered furosemide 20 mg oral tablet 1, tablet, By Mouth, Daily, MAY REPEAT IF NEEDED IN 2 HOURS, # 30 tablet, Refills 0, Maintenance, 10/06/22 15:44:00 EST, Route to Pharmacy Electronically, [facility], 157, cm, 09/13/22 15:58:00 EST, Height, 145, [...] 1 Refills, Maintenance, 07/03/22 14:41:00 EST, Tablet, [facility]/pharmacy #2024, Partial fill upon patient request if the prescription is for a schedule II opioid drJim. Start Date: 07/03/22 Status: Ordered meclizine 25 mg oral tablet See Instructions, PRN Dizziness, 1 tablet By Mouth 3 times a day, # 30 tablet, 0 Refills, Maintenance, 05/11/21 13:11:00 EDT, [facility]/pharmacy #2024, Partial fill upon patient request if the prescriptionis for a schedule II opioid drug., 160.02, cm, 10/0... Start Date: 05/11/21 Status: Ordered meloxicam 15 mg oral tablet See Instructions, TAKE 1 TABLET BY MOUTH DAILY WITH FOOD. LABS NEEDED FOR FURTHER REFILLS, # 30 tablet, 3 Refills, Maintenance, 07/17/22 19:56:00 EST, [facility]/pharmacy #2024, 158, cm, 07/13/22 13:46:00 EST, Height, [...] 09/05/22 16:29:00 EST, Route to Pharmacy Electronically, [facility]/pharmacy #2024, Partialfill upon patient request if the prescription is fo... Start Date: 09/05/22 Stop Date: 09/12/22 Status: Ordered traMADol 50 mg oral tablet See Instructions, 2 tab po qam and one tab po q pm prn moderate to severe pain. 28 days. mass pat ok, # 81 tablet, 0 Refills, Maintenance, 09/21/22 16:44:00 EST, [facility]/pharmacy #2024, 157, cm, 09/13/2314:58:00 EST, Height, 145, kg, 08/29/22 20:13:00 E... Start Date: 09/21/22 Status: Ordered zolpidem 10 mg oral tablet 1 tablet = 10 mg, By Mouth, Daily at bedtime, PRN for sleep, for 30 days, masspat check may fill less, # 30 tablet, 0 Refills, Acute 11/01/22 17:14:00 EDT, 10/02/22 17:14:00 EST, Tablet, [facility]/pharmacy#2024, 157, cm, 09/13/22 15:58:00 EST, Height, 145... Start Date: 10/02/22 Stop Date: 11/01/22 Status: Ordered zolpidem 10 mg oral tablet 1 tablet = 10 mg, By Mouth, Daily at bedtime, PRN for sleep, for 30 days, masspat check may fill less, # 30 tablet, 0 Refills, Acute 11/20/22 16:47:00 EDT, 10/21/22 16:47:00 EDT, Tablet, [facility]/pharmacy#2024, 157, cm, 09/13/22 15:58:00 EST, Height, 145... [...] MD Position: [facility] Primary Care Physician Member Role: PCP Address: Address: [address] [place] [id number] Name: Hemalatha Lucas RN Position: [facility] RN Member Role: Primary Care Nurse Name: Lauren Mack RN Position: [facility] AMB Nurse Member Role: Primary Care Nurse Name: Madelaine Ruiz RN Position: [facility] RN Member Role: Primary Care Nurse Name: Lora Santiago RN Position: [facility] SN RN Member Role: Primary Care Nurse Name: Mayco Ro RN Position: [facility] RN Member Role: Primary Care Nurse Name: Heydi Potts RN Position: [facility] RN Member Role: Primary Care Nurse Name: Janice Romano LPN Position: [facility] RN Member Role: Primary Care Nurse Name: Nadya Low RN Position: [facility] RN Member Role: Primary Care Nurse Name: Mirna Greenfield RN Position: [facility] RN Member Role: Primary Care Nurse Name: Nessa Bonilla RN Position: [facility] Hospital Health Concierge Member Role: Primary Care Nurse Care Team Related Persons Name: DINESH SARGENT Address: home [address] [place] [address] Name: BON DE Address: home [address] [address]
--- OUTSIDE RECORDS SUMMARY | 2024-06-24 14:11 | XMS_ITS | Continuity of Care Document ---
Author Organization [facility] Address [address] [address]- Care Team Providers Care Cleaning Matron Name Role Phone Vivi HENNING, Celestina Givens Primary Care Physician Encounter [facility] Date(s): 09/04/22 - 10/04/22 [facility] [address] [address] [place] Allergies, Adverse Reactions, Alerts No Known Allergies Immunizations Given and Recorded Vaccine Date Status Refusal Reason tetanus/diphtheria/pertussis, acel(Tdap) 1 08/21/22 Given tetanus/diphtheria/pertussis, acel(Tdap) 2 08/13/12 Given [id number] 12y+ bivalent booster vax 06/14/22 Recorded influenza [...] inactivated 6 07/31/12 Gi hali SARS-CoV-2 mRNA (mmddufw-ggkk-lvgxw) vax 02/14/22 Recorded SARS-CoV-2 (COVID-19) mRNA BNT-162b2 vac 05/06/21 Given SARS-CoV-2 (COVID-19) mRNA BNT-162b2 vac 11/04/20 Recorded SARS-CoV-2 (COVID-19) mRNA BNT-162b2 vac 10/14/20 Recorded pneumococcal 23-valent vaccine 7 04/07/19 Given 1Result Comment: [facility]# [id number] 2Admin Note: VIM dated 08/22/11 GIVEN TODAY 3Result Comment: [facility]# [id number] 4Result Comment: [05/25/2018] [facility] lot number [id number] exp 01/26/2019 [facility] [id number] 5Result Comment: [08/20/2017] [facility] [id number] 6Admin Note: VIM dated 01/29/12 GIVEN TODAY 7Result Comment: [facility]#[id number] Medications acetaminophen 500 mg oral capsule 2 [...] Stop, 04/10/2215:14:00 EDT, Route to Pharmacy Electronically, [id number], [facility]/pharmacy #2025, 158, cm, 04/10/22 14:56:00 EDT, Height, 143,... Start Date: 04/10/22 Status: Ordered amLODIPine 5 mg oral tablet 1 tablet, By Mouth, Daily, # 30 tablet, 5 Refills, Maintenance, 08/24/22 20:08:00 EST, [facility], 159, cm, 08/21/22 11:38:00 EST, Height, 143, kg, 01/04/21 10:42:00 EDT, Dry Weight Start Date: 08/24/22 Status: Ordered Augmentin 875 mg-125 mg oral tablet 1 tablet, By Mouth, Every 12 hours, for 6 week(s), # 84 tablet, 0 Refills, Acute 10/12/22 13:28:00 EDT, 08/31/22 13:28:00 EST, Tablet, [facility]/pharmacy #2024, Partial fill upon patient [...] 11:06:00 EST, Aerosol, Route to Pharmacy Electronically, [id number]... Start Date: 09/12/22 Status: Ordered cilostazol 50 mg oral tablet 1 tablet = 50 mg, By Mouth, Daily, # 180 tablet, 0 Refills, Maintenance, 09/02/22 10:35:00 EST, Tablet, [facility]/pharmacy #2024, Partial fill upon patient [...] 100 Gm, 1 Refills, 09/22/22 7:28:00 EST, [facility]/pharmacy #2024, 25, APPLY TOPICALLY 4 [...] 08/31/22 13:30:00 EST, Route to Pharmacy Electronically, [facility]/pharmacy #202, Partial fill upon patient request if the p... Start Date: 08/31/22 Status: Ordered Flonase 50 mcg/inh nasal spray See Instructions, 2 sprays Nares twice daily x 1 week, then once daily x 1-2 weeks until symptoms improve, # 16 Gm, 0 Refills, Maintenance, 02/28/21 16:31:00 EDT, [place], [facility]/pharmacy #202, Partial fill upon patient request if the prescription is for... Start Date: 02/28/21 Status: Ordered fluconazole 200 mg oral tablet 2 tablet = 400 mg, By Mouth, Daily, for 6 week(s), # 84 tablet, 0 Refills, Acute 10/12/22 13:28:00 EDT, 08/31/22 13:28:00 EST, Tablet, [facility]/pharmacy #202, Partial fill upon patient request if the prescription is for a schedule II opioid drug., 157, cm... Start Date: 08/31/22 Stop Date: 10/12/22 Status: Ordered FLUoxetine 20 mg oral capsule See Instructions, TAKE 1 CAPSULE BY MOUTH EVERY DAY, # 90 capsule, Refills 1, Maintenance, 06/13/2215:26:00 EST, Instructions Replace Required Details, Route to Pharmacy Electronically, [facility], 158, cm, 06/09/22 11:21:00 EST, Height, 143, kg... Start Date: 06/13/22 Status: Ordered furosemide 20 mg oral tablet 1, tablet, By Mouth, Daily, MAY REPEAT IF NEEDED IN 2 HOURS, # 30 tablet, Refills 0, Maintenance, 09/26/22 15:09:00 EST, Route to Pharmacy Electronically, [facility], 157, cm, 09/13/22 15:58:00 EST, Height, 145, kg, 08/29/22 20:13:00 EST, Dry Weight Start Date: 09/26/22 Status: Ordered gabapentin 300 mg oral capsule 600 mg, 2, capsule, By Mouth, 3 times a day, # 180 capsule, Refills 3, Tot. Refills 3, Maintenance,08/25/22 22:35:00 EST, [facility] fill upon patient request if the prescription is for a schedule II... Start Date: 08/25/22 Status: Ordered levothyroxine 0.137 mg oral tablet 1 tablet = 137 mcg, By Mouth, Daily, 1 tab on days 1-6, take 2 tabs on day 7, # 102 tablet, 1 Refills, Maintenance, 07/03/22 14:41:00 EST, Tablet, [facility] Partial fill upon patient request if the prescription is for a schedule II opioid dr... Start Date: 07/03/22 Status: Ordered meclizine 25 mg oral tablet See Instructions, PRN Dizziness, 1 tablet By Mouth 3 times a day, # 30 tablet, 0 Refills, Maintenance, 05/11/21 13:11:00 EDT, [facility]/pharmacy #2024, Partial fill upon patient request if the prescriptionis for a schedule II opioid drug., 160.02, cm, 10/0... Start Date: 05/11/21 Status: Ordered meloxicam 15 mg oral tablet See Instructions, TAKE 1 TABLET BY MOUTH DAILY WITH FOOD. LABS NEEDED FOR FURTHER REFILLS, # 30 tablet, 3 Refills, Maintenance, 07/17/22 19:56:00 EST, [facility]/pharmacy #2024, 158, cm, 07/13/22 13:46:00 EST, Height, [...] 09/05/22 16:29:00 EST, [facility] upon patient request if the prescription is fo... Start Date: 09/05/22 Stop Date: 09/12/22 Status: Ordered traMADol 50 mg oral tablet See Instructions, 2 tab po qam and one tab po q pm prn moderate to severe pain. 28 days. mass pat ok, # 81 tablet, 0 Refills, Maintenance, 09/21/22 16:44:00 EST, [facility]/pharmacy #2024, 157, cm, 09/13/2314:58:00 EST, Height, 145, kg, 08/29/22 20:13:00 E... Start Date: 09/21/22 Status: Ordered zolpidem 10 mg oral tablet 1 tablet = 10 mg, By Mouth, Daily at bedtime, PRN for sleep, for 30 days, masspat check may fill less, # 30 tablet, 0 Refills, Acute 11/01/22 17:14:00 EDT, 10/02/22 17:14:00 EST, Tablet, [facility]/pharmacy#2024, 157, cm, 09/13/22 15:58:00 EST, Height, 145... Start Date: 10/02/22 Stop Date: 11/01/22 Status: Ordered zolpidem 10 mg oral tablet 1 tablet = 10 mg, By Mouth, Daily at bedtime, PRN for sleep, for 30 days, masspat check may fill less, # 30 tablet, 0 Refills, Acute 11/20/22 16:47:00 EDT, 10/21/22 16:47:00 EDT, Tablet, [facility]/pharmacy#2024, 157, cm, 09/13/22 15:58:00 EST, Height, 145... [...] Team Personnel Name: Celestina Trinidad MD Position: [facility] Primary Care Physician Member Role: PCP Address: Address: [address] [place] [id number] Name: Hemalatha Lucas RN Position: [facility] RN Member Role: Primary Care Nurse Name: Lauren Mack RN Position: [facility] AMB Nurse Member Role: Primary Care Nurse Name: Madelaine Ruiz RN Position: [facility] RN Member Role: Primary Care Nurse Name: Lora Santiago RN Position: [facility] RN Member Role: Primary Care Nurse Name: Mayco Ro RN Position: [facility] RN Member Role: Primary Care Nurse Name: Heydi Potts RN Position: [facility] RN Member Role: Primary Care Nurse Name: Janice Romano LPN Position: [facility] RN Member Role: Primary Care Nurse Name: Nadya Low RN Position: [facility] RN Member Role: Primary Care Nurse Name: Mirna Greenfield RN Position: [facility] RN Member Role: Primary Care Nurse Name: Nessa Bonilla RN Position: [facility] Hospital Tassel Making Machine Operator Member Role: Primary Care Nurse Care Team Related Persons Name: DINESH SARGENT Address: home [address] [place] [address] Name: BON DE Address: home [address] [address]
--- OUTSIDE RECORDS SUMMARY | 2024-06-24 14:11 | XMS_ITS | Continuity of Care Document ---
Author Organization [facility] Address [address] [place] [address]- Care Team Providers Care Supervisor Mill Name Role Phone Celestina Trinidad MD Primary Care Physician Encounter [facility] Date(s): 10/08/23 - 11/07/23 [facility] [address] [place] [address]- Allergies, Adverse Reactions, Alerts No Known Allergies [...] 08/21/22 Given tetanus/diphtheria/pertussis, acel(Tdap) 7 08/13/12 Given [id number] 12y+ bivalent booster vax 06/14/22 Recorded SARS-CoV-2 mRNA (pgyqwfy-jsli-ymwdi) vax 02/14/22 Recorded SARS-CoV-2 (COVID-19) mRNA BNT-162b2 vac 05/06/21 Given SARS-CoV-2 (COVID-19) mRNA BNT-162b2 vac 11/04/20 Recorded SARS-CoV-2 (COVID-19) mRNA BNT-162b2 vac 10/14/20 Recorded pneumococcal 23-valent vaccine 8 04/07/19 Given 1Result Comment: screening negative 2Result Comment: [facility]# [id number] 3Result Comment: [05/25/2018] [employer] lot number [id number] exp 01/26/2019 [facility] 57854-436-58 4Result Comment: [08/20/2017] [facility] [id number] 5Admin Note: VIM dated 01/29/12 GIVEN TODAY 6Result Comment: [facility]# [id number] 7Admin Note: VIM dated 08/22/11 GIVEN TODAY 8Result Comment: [facility]#[id number] Medications acetaminophen 500 mg oral capsule 2 [...] EDT, Route to Pharmacy Electronically, [facility]/pharmacy #2024, Partial fill upon patient request if the presc... Start Date: 05/17/23 Stop Date: 05/17/24 Status: Ordered diclofenac 1% topical gel See Instructions, APPLY TO AFFECTED AREA 4 TIMES A DAY, # 100 Gm, 1 Refills, Maintenance, 11/07/23 7:48:00 EDT, [facility]/pharmacy #2024, 25, APPLY TO AFFECTED AREA 4 [...] Gm, 0 Refills, Maintenance, 02/28/21 16:31:00 EDT, [place], [facility], Partial fill upon patient request [...] EST, Route to Pharmacy Electronically, [facility]/pharmacy #2024, 157.5, cm, 07/13/23 9:57:00 EST, Height, 145.9, kg, 05/22/23 7:39:00 EDT, Dry Weight Start Date: 07/31/23 Status: Ordered gabapentin 300 mg oral capsule 600 mg, 2, capsule, By Mouth, 3 times a day, # 180 capsule, Refills 3, Tot. Refills 3, Maintenance,08/25/22 22:35:00 EST, [facility] Partial fill upon patient request [...] Refills, Maintenance, 10/12/23 6:42:00 EDT, [facility]/pharmacy #2024, 157.5, cm, 07/13/23 9:57:00 EST, Height, 145.9, kg, 05/22/23 7:39:00 EDT, Dry Weight Start Date: 10/12/23 Status: Ordered meclizine 25 mg oral tablet See Instructions, PRN Dizziness, 1 tablet By Mouth 3 times a day, # 30 tablet, 0 Refills, Maintenance, 02/27/23 10:43:00 EDT, [facility]/pharmacy #2024, Partial fill upon patient request if the prescriptionis for a schedule II opioid drug., 157, cm, ... Start Date: 02/27/23 Status: Ordered meloxicam 15 mg oral tablet See Instructions, TAKE 1 TABLET BY MOUTH DAILY WITH FOOD., # 30 tablet, 5 Refills, Maintenance, 10/08/23 17:05:00 EDT, [facility]/pharmacy #2024, 157.5, cm, 07/13/23 9:57:00 EST, Height, 145.9, kg, :39:00 EDT, Dry Weight Start Date: 10/08/23 Status: Ordered metFORMIN 500 mg oral tablet, extended release 1 tablet = 500 mg, By Mouth, Daily, # 90 tablet, 1 Refills, Maintenance, 10/24/23 11:39:00 EDT, ER Tablet, [facility]/pharmacy #2024, Partial fill upon patient request [...] 1 Refills, Maintenance, 07/15/23 17:38:00 EST, Capsule, [facility]/pharmacy #2024, Partial fill upon patient request if the prescription is for a schedule II opioid drug., 157.5, cm, 07/13/23 9:57:00 EST, He... Start Date: 07/15/23 Status: Ordered zolpidem 10 mg oral tablet 1 tablet = 10 mg, By Mouth, Daily at bedtime, # 30 tablet, 0 Refills, Maintenance, 11/05/23 16:28:00 EDT, [facility]/pharmacy #2025, Partial fill upon patient request [...] Code MRI Safety Implantable Status Assigning Authority [id number] Unknown [id number] Unknown 08/26/24 Unknown Unknown Active GS1 Patient Care team information Care Team Personnel Name: Celestina Trinidad MD Position: S Physician - Primary Care Member Role: PCP Address: Address: [address] [place] [address] Name: Hemalatha Lucas RN Position: [facility] RN Member Role: Primary Care Nurse Name: Lauren Mack RN Position: [facility] AMB Nurse Member Role: Primary Care Nurse Name: Madelaine Ruiz RN Position: [facility] RN Member Role: Primary Care Nurse Name: Lora Santiago RN Position: [facility] SN RN Member Role: Primary Care Nurse Name: Mayco Ro RN Position: [facility] RN Member Role: Primary Care Nurse Name: Heydi Potts RN Position: [facility] SN RN Member Role: Primary Care Nurse Name: Janice Romano LPN Position: [facility] RN Member Role: Primary Care Nurse Name: Nadya Low RN Position: [facility] RN Member Role: Primary Care Nurse Name: Mirna Greenfield RN Position: [facility] RN Member Role: Primary Care Nurse Name: Nessa Bonilla RN Position: [facility] [employer] Advisor Member Role: Primary Care Nurse Care Team Related Persons Name: DINESH SARGENT Address: home [address] [place] [address] Name: BON DE Address: home [address] [place] [address]
--- OUTSIDE RECORDS SUMMARY | 2024-06-24 14:11 | XMS_ITS | Continuity of Care Document ---
Author Organization [facility] Address [address] [place] [address]- Care Team Providers Care Food Sanitarian Name Role Phone Florentino AHN, Elder Hannah Primary Care Physician [phone] Encounter [facility] Date(s): 12/09/20 - 01/08/21 [facility] [address] [place] [address]- Allergies, Adverse Reactions, Alerts Substance Reaction Severity [...] tetanus/diphtheria/pertussis, acel(Tdap) 6 08/13/12 Given 1Result Comment: [facility]# [id number] 2Result Comment: [05/25/2018] [employer] lot number [id number] exp 01/26/2019 [facility] [id number] 3Result Comment: [08/20/2017] [facility] 85297-551-65 4Admin Note: VIM dated 01/29/12 GIVEN TODAY 5Result Comment: [facility]#[id number] 6Admin Note: VIM dated 08/22/11 GIVEN TODAY [...] 10/27/20 14:48:00 EDT, Route to Pharmacy Electronically, [id number], [facility]/pharmacy #2024, 160.02, cm, 10/19/20 11:04:00 EDT, Height, 156... Start Date: 10/27/20 Status: Ordered betamethasone-clotrimazole 0.05%-1% topical cream 1 application, Topically, 2 times a day, # 45 Gm, 0 Refills, Maintenance, 12/27/20 14:13:00 EDT, Cream, [facility]/pharmacy #2024, Partial fill upon patient request if the prescription is for a schedule II opioid drug., 1 application Topically 2 times a day,... Start Date: 12/27/20 Status: Ordered diclofenac 1% topical gel See Instructions, APPLY TOPICALLY 4 TIMES A DAY, # 100 Gm, 1 Refills, 10/27/20 12:37:00 EDT, [facility]/pharmacy #2024, 25, APPLY TOPICALLY 4 TIMES A DAY, 160.02, cm, 10/19/20 11:04:00 EDT, Height, 156.81, kg, 10/19/20 11:04:00 EDT, Dry Weight Start Date: 10/27/20 Status: Ordered FLUoxetine 20 mg oral capsule 20 mg, 1, capsule, By Mouth, Daily, # 30 capsule, Refills 5, Tot. Refills 5, Maintenance, 12/20/20 14:39:00 EDT, Route to Pharmacy Electronically, [facility]/pharmacy #2024, replacing 10mg dose, 160.02, cm,12/20/20 11:59:00 EDT, Height, 156.81, kg, 10/19/20... Start Date: 12/20/20 Status: Ordered levothyroxine 0.137 mg oral tablet See Instructions, Take 1 tablet by mouth on days 1-6, then take 2 tablets by mouth on day 7, # 121 tablet, 5 Refills, Maintenance, 12/07/20 9:46:00 EDT, [facility]/pharmacy #5, 160.02, cm, 10/19/20 11:04:00 EDT, Height, 156.81, kg, 10/19/20 11:04:00 EDT,... Start Date: 12/07/20 Status: Ordered meloxicam 15 mg oral tablet 1 tablet, By Mouth, Daily, WITH FOOD., # 30 tablet, 1 Refills, Maintenance, 12/20/20 7:39:00 EDT, [facility], 160.02, cm, 10/19/20 11:04:00 EDT, Height, 156.81, [...] 08/04/19 17:54:00 EST, Route to Pharmacy Electronically, [facility]/pharmacy #2024, 161, cm, 08/04/19 14:44:00 EST, Height Start Date: 08/04/19 Stop Date: 08/18/19 Status: Ordered traMADol 50 mg oral tablet 2 tablet = 100 mg, By Mouth, Every 12 hours, as needed for pain masspat checked, # 120 tablet, 2 Refills, Maintenance, 09/13/20 16:54:00 EST, [facility]/pharmacy #5, 161, cm, 08/18/20 15:29:00 EST, [...]
--- OUTSIDE RECORDS SUMMARY | 2024-06-24 14:11 | XMS_ITS | Continuity of Care Document ---
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 Role Phone Celestina Trinidad MD Primary Care Physician Encounter [facility] Date(s): 12/08/22 - 01/07/23 [facility] [address] [address]- Attending Physician: Calixto Beltran Admitting Physician: AdmtrCalixto Referring Physician: Admtr, Ar8 Allergies, Adverse Reactions, Alerts No Known Allergies Immunizations Given and Recorded Vaccine Date Status Refusal Reason tetanus/diphtheria/pertussis, acel(Tdap) 1 08/21/22 Given tetanus/diphtheria/pertussis, acel(Tdap) 2 08/13/12 Given [id number] 12y+ bivalent booster vax 06/14/22 Recorded influenza [...] inactivated 6 07/31/12 Gi hali SARS-CoV-2 mRNA (ynuinnd-dcyb-ofyzi) vax 02/14/22 Recorded SARS-CoV-2 (COVID-19) mRNA BNT-162b2 vac 05/06/21 Given SARS-CoV-2 (COVID-19) mRNA BNT-162b2 vac 11/04/20 Recorded SARS-CoV-2 (COVID-19) mRNA BNT-162b2 vac 10/14/20 Recorded pneumococcal 23-valent vaccine 7 04/07/19 Given 1Result Comment: [facility]# [id number] 2Admin Note: VIM dated 08/22/11 GIVEN TODAY 3Result Comment: [facility]# [id number] 4Result Comment: [05/25/2018] [facility] lot number [id number] exp 01/26/2019 [facility] [id number] 5Result Comment: [08/20/2017] [facility] [id number] 6Admin Note: VIM dated 01/29/12 GIVEN TODAY 7Result Comment: [facility]#[id number] Medications acetaminophen 500 mg oral capsule 2 [...] Stop, 04/10/2215:14:00 EDT, Route to Pharmacy Electronically, [id number], [facility]/pharmacy #2025, 158, cm, 04/10/22 14:56:00 EDT, Height, 143,... Start Date: 04/10/22 Status: Ordered amLODIPine 10 mg oral tablet 1 tablet, By Mouth, Daily, # 90 tablet, 0 Refills, Maintenance, 10/23/22 12:47:00 EDT, [facility], 157, cm, 09/13/22 15:58:00 EST, Height, 145, kg, 08/29/22 20:13:00 EST, Dry Weight Start Date: 10/23/22 Status: Ordered budesonide-formoterol 80 mcg-4.5 mcg/inh inhalation aerosol with adapter 2, puffs, Inhalation, 2 times a day, PRN, use with spacer chamber, rinse mouth and throat after use, j44.9, # 1 each, Refills 6, Tot. Refills 6, Maintenance, 12/08/22 12:55:00 EDT, Aerosol, Route to Pharmacy Electronically, [id number]... Start Date: 12/08/22 Status: Ordered Compression Stockings [...] 100 Gm, 1 Refills, 09/22/22 7:28:00 EST, [facility]/pharmacy #2024, 25, APPLY TOPICALLY 4 TIMES A DAY, 157, cm, 09/13/22 15:58:00 EST, Height, 145, kg, 08/29/22 20:13:00 EST, Dry Weight Start Date: 09/22/22 Status: Ordered docusate sodium 100 mg oral capsule 100 mg, 1, capsule, By Mouth, 2 times a day, PRN, # 20 capsule, Refills 0, Tot. Refills 0, Maintenance, as needed for constipation, 08/31/22 13:30:00 EST, Route to Pharmacy Electronically, [facility]/pharmacy #2024, Partial fill upon patient request if the p... Start Date: 08/31/22 Status: Ordered Flonase 50 mcg/inh nasal spray See Instructions, 2 sprays Nares twice daily x 1 week, then once daily x 1-2 weeks until symptoms improve, # 16 Gm, 0 Refills, Maintenance, 02/28/21 16:31:00 EDT, [place], [facility]/pharmacy #2024, Partial fill upon patient request [...] 11/29/22 22:18:00 EDT, Route to Pharmacy Electronically, [facility], 157, cm, 10/30/22 13:53:00 EDT, Height, 145, kg, 08/29/22 20:13:00 EST, Dry Weight Start Date: 11/29/22 Status: Ordered gabapentin 300 mg oral capsule 600 mg, 2, capsule, By Mouth, 3 times a day, # 180 capsule, Refills 3, Tot. Refills 3, Maintenance,08/25/22 22:35:00 EST, Route to Pharmacy Electronically, [facility]/pharmacy #2024, Partial fill upon patient request [...] tablet, 0 Refills, Maintenance, 05/11/21 13:11:00 EDT, [facility]/pharmacy #2025, Partial fill upon patient request if the prescriptionis for a schedule II opioid drug., 160.02, cm, 10/0... Start Date: 05/11/21 Status: Ordered meloxicam 15 mg oral tablet See Instructions, TAKE 1 TABLET BY MOUTH DAILY WITH FOOD. LABS NEEDED FOR FURTHER REFILLS, # 30 tablet, 3 Refills, Maintenance, 10/18/22 21:31:00 EDT, [facility], 157, cm, 09/13/22 15:58:00 EST,Height, 145, kg, [...] 09/05/22 16:29:00 EST, Route to Pharmacy Electronically, [facility]/pharmacy #2025, Partialfill upon patient request if the [...] Name: Celestina Trinidad MD Position: [facility] Physician - Primary Care Member Role: PCP Address: Address: [address] [place] [address] Name: Hemalatha Lucas RN Position: [facility] RN Member Role: Primary Care Nurse Name: Lauren Mack RN Position: [facility] AMB Nurse Member Role: Primary Care Nurse Name: Madelaine Ruiz RN Position: [facility] RN Member Role: Primary Care Nurse Name: Lora Santiago RN Position: [facility] RN Member Role: Primary Care Nurse Name: Mayco Ro RN Position: [facility] RN Member Role: Primary Care Nurse Name: Heydi Potts RN Position: [facility] RN Member Role: Primary Care Nurse Name: Janice Romano LPN Position: [facility] RN Member Role: Primary Care Nurse Name: Nadya Low RN Position: [facility] RN Member Role: Primary Care Nurse Name: Mrina Greenfield RN Position: [facility] RN Member Role: Primary Care Nurse Name: Nessa Bonilla RN Position: [facility] [employer] Member Role: Primary Care Nurse Care Team Related Persons Name: DINESH SARGENT Address: home [address] [place] [address] Name: BON DE Address: home [address] [place] [id number]
--- OUTSIDE RECORDS SUMMARY | 2024-06-24 14:11 | XMS_ITS | Continuity of Care Document ---
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 Role Phone Florentino AHN, Elder Hannah Primary Care Physician Encounter [facility] Date(s): 01/04/21 - 02/03/21 [facility] [address] [place] [address]- Attending Physician: Calixto Beltran Admitting Physician: AdmCalixto hernandez Referring Physician: AdmtrCalixto Allergies, Adverse Reactions, Alerts Substance Reaction Severity [...] tetanus/diphtheria/pertussis, acel(Tdap) 6 08/13/12 Given 1Result Comment: [facility]# [id number] 2Result Comment: [05/25/2018] [facility] lot number [id number] exp 01/26/2019 [facility] [id number] 3Result Comment: [08/20/2017] [facility] [id number] 4Admin Note: VIM dated 01/29/12 GIVEN TODAY 5Result Comment: [facility]#[id number] 6Admin Note: VIM dated 08/22/11 GIVEN TODAY [...] 10/27/20 14:48:00 EDT, Route to Pharmacy Electronically, [id number], [facility]/pharmacy #2024, 160.02, cm, 10/19/20 11:04:00 EDT, Height, 156... Start Date: 10/27/20 Status: Ordered betamethasone-clotrimazole 0.05%-1% topical cream 1 application, Topically, 2 times a day, # 45 Gm, 0 Refills, Maintenance, 12/27/20 14:13:00 EDT, Cream, [facility]/pharmacy #2024, Partial fill upon patient request if the prescription is for a schedule II opioid drug., 1 application Topically 2 times a day,... Start Date: 12/27/20 Status: Ordered diclofenac 1% topical gel See Instructions, APPLY TOPICALLY 4 TIMES A DAY, # 100 Gm, 1 Refills, 10/27/20 12:37:00 EDT, [facility]/pharmacy #2024, 25, APPLY TOPICALLY 4 TIMES A DAY, 160.02, cm, 10/19/20 11:04:00 EDT, Height, 156.81, kg, 10/19/20 11:04:00 EDT, Dry Weight Start Date: 10/27/20 Status: Ordered FLUoxetine 20 mg oral capsule 20 mg, 1, capsule, By Mouth, Daily, # 30 capsule, Refills 5, Tot. Refills 5, Maintenance, 12/20/20 14:39:00 EDT, Route to Pharmacy Electronically, [facility]/pharmacy #2024, replacing 10mg dose, 160.02, cm,12/20/20 11:59:00 EDT, Height, 156.81, kg, 10/19/20... Start Date: 12/20/20 Status: Ordered levothyroxine 0.137 mg oral tablet See Instructions, Take 1 tablet by mouth on days 1-6, then take 2 tablets by mouth on day 7, # 121 tablet, 5 Refills, Maintenance, 12/07/20 9:46:00 EDT, [facility]/pharmacy #2025, 160.02, cm, 10/19/20 11:04:00 EDT, Height, 156.81, kg, 10/19/20 11:04:00 EDT,... Start Date: 12/07/20 Status: Ordered meloxicam 15 mg oral tablet 1 tablet, By Mouth, Daily, WITH FOOD., # 30 tablet, 1 Refills, Maintenance, 12/20/20 7:39:00 EDT, [facility], 160.02, cm, 10/19/20 11:04:00 EDT, Height, 156.81, [...] EST, Route to Pharmacy Electronically, [facility]/pharmacy #2024, 161, cm, 08/04/19 14:44:00 EST, [...] less, # 30 tablet, 3 Refills, Acute 05/20/21 10:28:00 EDT, 01/20/21 10:28:00 EDT, Tablet, [facility], 160.02, cm, 01/04/21 10:42:00 EDT, Height,... Start Date: 01/20/21 Stop Date: 05/20/21 Status: Ordered zolpidem 10 mg oral tablet 1 tablet = 10 mg, By Mouth, Daily at bedtime, PRN for sleep, for 30 days, masspat check may fill less, # 30 tablet, 3 Refills, Acute 03/19/21 10:02:00 EDT, 11/19/20 10:02:00 EDT, Tablet, [facility]/pharmacy#2025, 160.02, cm, 10/19/20 11:04:00 EDT, Height,... Start [...]
--- OUTSIDE RECORDS SUMMARY | 2024-06-24 14:11 | XMS_ITS | Continuity of Care Document ---
Author Organization [facility] Address [address] [place] [address]- Care Team Providers Care Clinical Quality Rn Name Role Phone Vivi HENNING, Celesitna Givens Primary Care Physician Encounter [facility] Date(s): 07/21/22 - 08/20/22 [facility] [address] [place] [address]- Allergies, Adverse Reactions, Alerts No Known Allergies Immunizations Given and Recorded Vaccine Date Status Refusal Reason [id number] 12y+ bivalent booster vax 06/14/22 Recorded influenza [...] inactivated 4 07/31/12 Gi hali SARS-CoV-2 mRNA (nrzprls-rwfw-bqakb) vax 02/14/22 Recorded SARS-CoV-2 (COVID-19) mRNA BNT-162b2 vac 05/06/21 Given SARS-CoV-2 (COVID-19) mRNA BNT-162b2 vac 11/04/20 Recorded SARS-CoV-2 (COVID-19) mRNA BNT-162b2 vac 10/14/20 Recorded pneumococcal 23-valent vaccine 5 04/07/19 Given tetanus/diphtheria/pertussis, acel(Tdap) 6 08/13/12 Given 1Result Comment: [facility]# [id number] 2Result Comment: [05/25/2018] [facility] lot number [id number] exp 01/26/2019 [facility] [id number] 3Result Comment: [08/20/2017] [facility] [id number] 4Admin Note: VIM dated 01/29/12 GIVEN TODAY 5Result Comment: [facility]#[id number] 6Admin Note: VIM dated 08/22/11 GIVEN TODAY [...] Stop, 04/10/2215:14:00 EDT, Route to Pharmacy Electronically, [id number], [facility]/pharmacy #2025, 158, cm, 04/10/22 14:56:00 EDT, Height, 143,... Start Date: 04/10/22 Status: Ordered amLODIPine 10 mg oral tablet 1 tablet, By Mouth, Daily, # 90 tablet, 0 Refills, Maintenance, 07/21/22 17:34:00 EST, [facility], 158, cm, 07/21/22 15:09:00 EST, Height, 143, kg, 01/04/21 10:42:00 EDT, Dry Weight Start Date: 07/21/22 Status: Ordered Anoro Ellipta 62.5 mcg-25 mcg/inh inhalation powder 1 puffs, By Mouth, Daily, # 1 each, 6 Refills, Maintenance, 05/11/22 13:00:00 EDT, Powder, [facility], Partial fill upon patient request if the prescription is for a schedule II opioid drug., 1puffs By Mouth Daily,x30 days, 158, cm, 05/08/22 11... Start Date: 05/11/22 Stop Date: 12/07/22 Status: Ordered cilostazol 100 mg oral tablet 1 tablet, By Mouth, 2 times a day, # 60 tablet, 0 Refills, Maintenance, 08/20/22 11:31:00 EST, [facility], 159, cm, 08/15/22 11:23:00 EST, Height, 143, [...] 100 Gm, 1 Refills, 09/19/21 12:51:00 EST, [facility]/pharmacy #2025, 25, APPLY TOPICALLY 4 TIMES A DAY, 160.02, cm, 07/25/21 16:20:00 EST, Height, 143, kg,01/04/21 10:42:00 EDT, Dry Weight Start Date: 09/19/21 Status: Ordered doxycycline hyclate 100 mg oral tablet 1 tablet, By Mouth, 2 times a day, # 20 tablet, 0 Refills, Maintenance, 08/10/22 16:34:00 EST, [facility]/pharmacy #2025, 159, cm, 08/01/22 14:14:00 EST, Height, 143, kg, 01/04/21 10:42:00 EDT, Dry Weight Start Date: 08/10/22 Stop Date: 08/20/22 Status: Ordered Flonase 50 mcg/inh nasal spray See Instructions, 2 sprays Nares twice daily x 1 week, then once daily x 1-2 weeks until symptoms improve, # 16 Gm, 0 Refills, Maintenance, 02/28/21 16:31:00 EDT, [place], [facility]/pharmacy #2024, Partial fill upon patient request if the prescription is for... Start Date: 02/28/21 Status: Ordered FLUoxetine 20 mg oral capsule See Instructions, TAKE 1 CAPSULE BY MOUTH EVERY DAY, # 90 capsule, Refills 1, Maintenance, 06/13/2215:26:00 EST, Instructions Replace Required Details, Route to Pharmacy Electronically, [id number], 158, cm, 06/09/22 11:21:00 EST, Height, 143, kg... Start Date: 06/13/22 Status: Ordered gabapentin 300 mg oral capsule 600 mg, 2, capsule, By Mouth, 2 times a day, # 120 capsule, Refills 1, Tot. Refills 1, Maintenance,07/22/22 8:06:00 EST, [facility] Partial fill upon patient request if the prescription is for a schedule II... Start Date: 07/22/22 Status: Ordered levothyroxine 0.137 mg oral tablet 1 tablet = 137 mcg, By Mouth, Daily, 1 tab on days 1-6, take 2 tabs on day 7, # 102 tablet, 1 Refills, Maintenance, 07/03/22 14:41:00 EST, Tablet, [facility]/pharmacy #2024, Partial fill upon patient request if the prescription is for a schedule II opioid dr... Start Date: 07/03/22 Status: Ordered levothyroxine 0.137 mg oral tablet See Instructions, TAKE 1 TABLET BY MOUTH ON DAYS 1-6, THEN TAKE 2 TABLETS BY MOUTH ON DAY 7 Needs TSH lab work for refills, # 96 tablet, 0 Refills, 06/29/22 15:47:00 EST, [facility]/pharmacy #2024, 158, cm,06/09/22 11:21:00 EST, Height, 143, kg, 01/04/21 1... Start Date: 06/29/22 Status: Ordered meclizine 25 mg oral tablet See Instructions, PRN Dizziness, 1 tablet By Mouth 3 times a day, # 30 tablet, 0 Refills, Maintenance, 05/11/21 13:11:00 EDT, [facility], Partial fill upon patient [...] 0 Refills, Maintenance, 08/01/22 16:58:00 EST, Tablet, [facility]/pharmacy #2024, Partial fill upon patient request if [...] Acute 09/27/22 16:00:00 EST, 08/01/22 21:26:00EST, Ointment, [facility]/pharmacy #2024, Partial fill upon patient request if [...] Trinidad MD Position: [facility] Primary Care Physician Member Role: PCP Address: Address: [address] [place] [address] Name: Lauren Mack RN Position: [facility] Nurse Member Role: Primary Care Nurse Name: Lora Santiago RN Position: [facility] RN Member Role: Primary Care Nurse Name: Mayco Ro RN Position: [facility] RN Member Role: Primary Care Nurse Name: Heydi Potts RN Position: [facility] RN Member Role: Primary Care Nurse Name: Nadya Low RN Position: [facility] RN Member Role: Primary Care Nurse Name: Mirna Greenfield RN Position: [facility] RN Member Role: Primary Care Nurse Name: Nessa Bonilla RN Position: [facility] Hospital Wood Chopper Member Role: Primary Care Nurse Care Team Related Persons Name: ROSETTAROLADINESH Address: home [address] [address] Name: BON DE Address: home [address] [address]
--- OUTSIDE RECORDS SUMMARY | 2024-06-24 14:11 | XMS_ITS | Continuity of Care Document ---
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 Role Phone Vivi HENNING, Celestina Givens Primary Care Physician Encounter [facility] Date(s): 02/05/24 - 03/06/24 [facility] [address] [place] [address]- Allergies, Adverse Reactions, Alerts No Known Allergies [...] 08/21/22 Given tetanus/diphtheria/pertussis, acel(Tdap) 7 08/13/12 Given [id number] 12y+ bivalent booster vax 06/14/22 Recorded SARS-CoV-2 mRNA (kgcthqm-akdl-ilglp) vax 02/14/22 Recorded SARS-CoV-2 (COVID-19) mRNA BNT-162b2 vac 05/06/21 Given SARS-CoV-2 (COVID-19) mRNA BNT-162b2 vac 11/04/20 Recorded SARS-CoV-2 (COVID-19) mRNA BNT-162b2 vac 10/14/20 Recorded pneumococcal 23-valent vaccine 8 04/07/19 Given 1Result Comment: screening negative 2Result Comment: [facility]# [id number] 3Result Comment: [05/25/2018] [facility] lot number [id number] exp 01/26/2019 [facility] [id number] 4Result Comment: [08/20/2017] [facility] [id number] 5Admin Note: VIM dated 01/29/12 GIVEN TODAY 6Result Comment: [facility]# [id number] 7Admin Note: VIM dated 08/22/11 GIVEN TODAY 8Result Comment: [facility]#[id number] Medications acetaminophen 500 mg oral capsule 2 [...] Refills, Soft Stop, 12/06/23 17:28:00 EDT, [facility]/pharmacy #5, Partial fill upon patient request if [...] 05/17/24 16:46:00 EDT, Route to Pharmacy Electronically, [facility]/pharmacy #2024, Partial fill upon patient request if the prescription is for a... Start Date: 05/17/24 Status: Ordered cyclobenzaprine 10 mg oral tablet 10 mg, 1, tablet, By Mouth, 3 times a day, PRN, # 30 tablet, Refills 0, Tot. Refills 0, Acute 05/17/24 16:46:00 EDT, for spasm, 05/17/23 16:45:00 EDT, Route to Pharmacy Electronically, [facility]/pharmacy #2024, Partial fill upon patient request if the presc... Start Date: 05/17/23 Stop Date: 05/17/24 Status: Ordered diclofenac 1% topical gel See Instructions, APPLY TO AFFECTED AREA 4 TIMES A DAY, # 100 Gm, 1 Refills, Maintenance, 11/07/23 7:48:00 EDT, [facility]/pharmacy #2024, 25, APPLY TO AFFECTED AREA 4 TIMES A DAY, 157.5, cm, 10/18/23 15:15:00 EDT, Height, 145.9, kg, 05/22/23 7:39:00 EDT, Start Date: 11/07/23 Status: Ordered diclofenac 1% topical gel See Instructions, APPLY TO AFFECTED AREA 4 TIMES A DAY. NOT COVERED, # 100 Gm, 1 Refills, Maintenance, 02/01/24 13:44:00 EDT, [facility], 30, APPLY TO AFFECTED AREA 4 TIMES [...] Gm, 0 Refills, Maintenance, 02/28/21 16:31:00 EDT, [place], [facility]/pharmacy #2024, Partial fill upon patient request if the prescription is for... Start Date: 02/28/21 Status: Ordered FLUoxetine 10 mg oral capsule 1, capsule, By Mouth, Daily, INSTR:TO BE TAKEN WITH 20MG CAPSULES TO EQUAL 30MG DAILY, # 90 capsule, Refills 1, Maintenance, 01/25/24 9:11:00 EDT, Route to Pharmacy Electronically, [facility], 157.5, cm, 01/22/24 10:31:00 EDT, Height, 145.9, kg,... Start Date: 01/25/24 Status: Ordered gabapentin 300 mg oral capsule 600 mg, 2, capsule, By Mouth, 3 times a day, # 180 capsule, Refills 3, Tot. Refills 3, Maintenance,08/25/22 22:35:00 EST, Route to Pharmacy Electronically, [facility]/pharmacy #2024, Partial fill upon patient request [...] Refills, Maintenance, 12/28/23 16:17:00 EDT, [facility], 157.5, cm, 10/18/23 15:15:00 EDT, Height, 145.9, [...] tablet, 5 Refills, Maintenance, 10/08/23 17:05:00 EDT, [facility]/pharmacy #2025, 157.5, cm, 07/13/23 9:57:00 EST, Height, 145.9, kg, :39:00 EDT, Dry Weight Start Date: 10/08/23 Status: Ordered metFORMIN 500 mg oral tablet, extended release 1 tablet = 500 mg, By Mouth, Daily, # 90 tablet, 1 Refills, Maintenance, 01/22/24 11:02:00 EDT, ER Tablet, [facility]/pharmacy #2025, Partial fill upon patient request [...] Code MRI Safety Implantable Status Assigning Authority [id number] Unknown [id number] Unknown 08/26/24 Unknown Unknown Active GS1 Patient Care team information Care Team Personnel Name: Celestina Trinidad MD Position: [facility] Physician - Primary Care Member Role: PCP Address: Address: [address] [place] [address] Name: Hemalatha Lucas RN Position: [facility] RN Member Role: Primary Care Nurse Name: Lauren Mack RN Position: [facility] Nurse Member Role: Primary Care Nurse Name: Madelaine Ruiz RN Position: [facility] RN Member Role: Primary Care Nurse Name: Lora Santiago RN Position: [facility] RN Member Role: Primary Care Nurse Name: Mayco Ro RN Position: [facility] RN Member Role: Primary Care Nurse Name: Heydi Potts RN Position: [facility] RN Member Role: Primary Care Nurse Name: Janice Romano LPN Position: [facility] RN Member Role: Primary Care Nurse Name: Nadya Low RN Position: [facility] RN Member Role: Primary Care Nurse Name: Mirna Greenfield RN Position: [facility] RN Member Role: Primary Care Nurse Name: Nessa Bonilla RN Position: [facility] Operations Support Representative Member Role: Primary Care Nurse Care Team Related Persons Name: DINESH SARGENT Address: home [address] [place] [address] Name: BON DE Address: [address] [address]
--- OUTSIDE RECORDS SUMMARY | 2024-06-24 14:11 | XMS_ITS | Continuity of Care Document ---
Author Organization [facility] Address [address] [place] [address]- Care Team Providers Care Supervisor Paper Machine Name Role Phone Celestina Trinidad MD Primary Care Physician Encounter [facility] Date(s): 11/07/23 - 12/07/23 [facility] [address] [place] [address]- Allergies, Adverse Reactions, Alerts No Known Allergies [...] 08/21/22 Given tetanus/diphtheria/pertussis, acel(Tdap) 7 08/13/12 Given PJZF-JiN-4rVXR 12y+ bivalent booster vax 06/14/22 Recorded SARS-CoV-2 mRNA (cmeooso-wvtp-zjurf) vax 02/14/22 Recorded SARS-CoV-2 (COVID-19) mRNA BNT-162b2 vac 05/06/21 Given SARS-CoV-2 (COVID-19) mRNA BNT-162b2 vac 11/04/20 Recorded SARS-CoV-2 (COVID-19) mRNA BNT-162b2 vac 10/14/20 Recorded pneumococcal 23-valent vaccine 8 04/07/19 Given 1Result Comment: screening negative 2Result Comment: [facility]# [id number] 3Result Comment: [05/25/2018] [facility] lot number [id number] exp 01/26/[address] [facility] [id number] 4Result Comment: [08/20/2017] [facility] [id number] 5Admin Note: VIM dated 01/29/12 GIVEN TODAY 6Result Comment: [facility]# [id number] 7Admin Note: VIM dated 08/22/11 GIVEN TODAY 8Result Comment: [facility]#[id number] Medications acetaminophen 500 mg oral capsule 2 [...] 1 Refills, Soft Stop, 12/06/23 17:28:00 EDT, [facility]/pharmacy #5, Partial fill upon patient request if [...] 05/17/23 16:45:00 EDT, Route to Pharmacy Electronically, [facility]/pharmacy #2024, Partial fill upon patient [...] Gm, 0 Refills, Maintenance, 02/28/21 16:31:00 EDT, [place], [facility]/pharmacy #2024, Partial fill upon patient request if the prescription is for... Start Date: 02/28/21 Status: Ordered FLUoxetine 10 mg oral capsule 10 mg, 1, capsule, By Mouth, Daily, to be taken with 20mg capsules to equal 30mg daily, # 90 capsule, Refills 1, Tot. Refills 1, Maintenance, 07/31/23 19:01:00 EST, Route to Pharmacy Electronically, [facility]/pharmacy #2024, Partial fill upon patient reques... Start Date: 07/31/23 Status: Ordered FLUoxetine 20 mg oral capsule 1, capsule, By Mouth, Daily, # 90 capsule, Refills 1, Tot. Refills 1, Maintenance, 07/31/23 19:01:00 EST, [facility] 157.5, cm, 07/13/23 9:57:00 EST, Height, 145.9, kg, 05/22/23 7:39:00 EDT, Dry Weight Start Date: 07/31/23 Status: Ordered gabapentin 300 mg oral capsule 600 mg, 2, capsule, By Mouth, 3 times a day, # 180 capsule, Refills 3, Tot. Refills 3, Maintenance,08/25/22 22:35:00 EST, Route to Pharmacy Electronically, [facility]/pharmacy #2024, Partial fill upon patient [...] tablet, 0 Refills, Maintenance, 10/12/23 6:42:00 EDT, [facility]/pharmacy #2024, 157.5, cm, 07/13/23 9:57:00 EST, Height, [...] capsule, 1 Refills, Maintenance, 11/23/23 17:40:00 EDT,Capsule, [facility]/pharmacy #2024, Partial fill upon patient [...] Device Type Site Repair Hernia Umbilical Laparoscopic Emliy HENNING, Yasemin 05/22/23 Unknown Umbilicus Device Identifier Serial Number Lot or Batch Number Manufacturing Date Expiration Date Distinct Identification Code MRI Safety Implantable Status Assigning Authority [id number] Unknown [id number] Unknown 08/26/24 Unknown Unknown Active GS1 Patient Care team information Care Team Personnel Name: Celestina Trinidad MD Position: [facility] Physician - Primary Care Member Role: PCP Address: Address: [address] [place] [address] Name: Hemalatha Lucas RN Position: [facility] RN Member Role: Primary Care Nurse Name: Lauren Mack RN Position: [facility] AMB Nurse Member Role: Primary Care Nurse Name: Madelaine Ruiz RN Position: [facility] RN Member Role: Primary Care Nurse Name: Lora Santiago RN Position: [facility] SN RN Member Role: Primary Care Nurse Name: Mayco Ro RN Position: [facility] RN Member Role: Primary Care Nurse Name: eHydi Potts RN Position: [facility] SN RN Member Role: Primary Care Nurse Name: Janice Romano LPN Position: [facility] RN Member Role: Primary Care Nurse Name: Nadya Low RN Position: [facility] RN Member Role: Primary Care Nurse Name: Mirna Greenfield RN Position: [facility] RN Member Role: Primary Care Nurse Name: Nessa Bonilla RN Position: [facility] Cafeteria Director Member Role: Primary Care Nurse Care Team Related Persons Name: ROSETTA DINESH Address: home [address] [place] [address] Name: BON DE Address: [address] [address]
--- OUTSIDE RECORDS SUMMARY | 2024-06-24 14:11 | XMS_ITS | Continuity of Care Document ---
Author Organization [facility] Address [address] [place] [address]- Care Team Providers Care Livestock Ranch Hand Name Role Phone Viiv HENNING, Celestina Givens Primary Care Physician [facility]counter [facility] Date(s): 06/09/23 - 07/09/23 [facility] [address] [place] [address]- Allergies, Adverse Reactions, Alerts No Known Allergies Immunizations Given and Recorded Vaccine Date Status Refusal Reason tetanus/diphtheria/pertussis, acel(Tdap) 1 08/21/22 Given tetanus/diphtheria/pertussis, acel(Tdap) 2 08/13/12 Given [id number]-[id number]-[id number] 12y+ bivalent booster vax 06/14/22 Recorded influenza [...] inactivated 6 07/31/12 Gi hali SARS-CoV-2 mRNA (iixrgpl-aamc-xsmmi) vax 02/14/22 Recorded SARS-CoV-2 (COVID-19) mRNA BNT-162b2 vac 05/06/21 Given SARS-CoV-2 (COVID-19) mRNA BNT-162b2 vac 11/04/20 Recorded SARS-CoV-2 (COVID-19) mRNA BNT-162b2 vac 10/14/20 Recorded pneumococcal 23-valent vaccine 7 04/07/19 Given 1Result Comment: [facility]# [id number] 2Admin Note: VIM dated 08/22/11 GIVEN TODAY 3Result Comment: [facility]# [id number] 4Result Comment: [05/25/2018] [facility] lot number [id number] exp 01/26/2019 [facility] [id number] 5Result Comment: [08/20/2017] [facility] [id number] 6Admin Note: VIM dated 01/29/12 GIVEN TODAY 7Result Comment: [facility]#[id number] Medications acetaminophen 500 mg oral capsule 2 [...] Gm, 0 Refills, Maintenance, 02/28/21 16:31:00 EDT, [place], [facility]/pharmacy #2024, Partial [...] Pharmacy Electronically, [facility]/pharmacy #2025, Partial [...] tablet, 2 Refills, Maintenance, 02/27/23 7:25:00 EDT, [facility]ORE [facility], 157, cm, 12/08/22 14:27:00 EDT, Height, 145, kg, 08/29/22 20:13:00 EST, Dry... Start Date: 02/27/23 Status: Ordered meclizine 25 mg oral tablet See Instructions, PRN Dizziness, 1 tablet By Mouth 3 times a day, # 30 tablet, 0 Refills, Maintenance, 02/27/23 10:43:00 EDT, [facility]/pharmacy #202, Partial fill upon patient request if the prescriptionis for a schedule II opioid drug., 157, cm, ... Start Date: 02/27/23 Status: Ordered meloxicam 15 mg oral tablet See Instructions, TAKE 1 TABLET BY MOUTH DAILY WITH FOOD. LABS NEEDED FOR FURTHER REFILLS, # 30 tablet, 1 Refills, Maintenance, 05/01/23 14:45:00 EDT, [facility]/pharmacy #2025, 157, cm, 03/14/23 11:02:00 EDT, [...] 05/22/23 9:10:00 EDT, Route to Pharmacy Electronically, [facility]/pharmacy... Start Date: 05/22/23 Status: Ordered Splint [...] 07/12/23 11:04:00 EST, 06/12/23 11:04:00 EST, Tablet, [facility], early refill for travel. Thanks., 157.5, cm, 06/08/23 11:48:00 EST, [place]... Start Date: 06/12/23 Stop Date: 07/12/23 Status: [...] Code MRI Safety Implantable Status Assigning Authority [id number] Unknown [id number] Unknown 08/26/24 Unknown Unknown Active GS1 Patient Care team information Care Team Personnel Name: Celestina Trinidad MD Position: [facility] Physician - Primary Care Member Role: PCP Address: Address: [address] [place] [address] Name: Hemalatha Lucas RN Position: [facility] RN Member Role: Primary Care Nurse Name: Lauren Mack RN Position: [facility] AMB Nurse Member Role: Primary Care Nurse Name: Madelaine Ruiz RN Position: [facility] RN Member Role: Primary Care Nurse Name: Lora Santiago RN Position: [facility] SN RN [...] Name: Nessa Bonilla RN Position: [facility] Retail Sales Advisor Member Role: Primary Care Nurse Care Team Related Persons Name: DINESH SARGENT Address: home [address] [place] [address] Name: BON DE Address: home [address] [place] [id number]
--- OUTSIDE RECORDS SUMMARY | 2024-06-24 14:11 | XMS_ITS | Continuity of Care Document ---
Author Organization [facility] Geovanna liana Address [address] [place] [address] [address] [place] [address]- Care Team Providers Care Parks And Recreation Worker Name Role Phone Celestina Trinidad MD Primary Care Physician [place] [facility] [place]22 - 09/27/22 [facility] [address] [place] [address]- Attending Physician: Jay Stafford MD Referring Physician: Celestina Trinidad MD Allergies, Adverse Reactions, Alerts No Known Allergies Immunizations Given and Recorded Vaccine Date Status Refusal Reason tetanus/diphtheria/pertussis, acel(Tdap) 1 08/21/22 Given tetanus/diphtheria/pertussis, acel(Tdap) 2 08/13/12 Given [id number] 12y+ bivalent booster vax 06/14/22 Recorded influenza [...] influenza virus vaccine, inactivated 6 07/31/12 Gi hlai SARS-CoV-2 mRNA (pbxjdux-gdcp-hguro) vax 02/14/22 Recorded SARS-CoV-2 (COVID-19) mRNA BNT-162b2 vac 05/06/21 Given SARS-CoV-2 (COVID-19) mRNA BNT-162b2 vac 11/04/20 Recorded SARS-CoV-2 (COVID-19) mRNA BNT-162b2 vac 10/14/20 Recorded pneumococcal 23-valent vaccine 7 04/07/19 Given 1Result Comment: [facility]# [id number] 2Admin Note: VIM dated 08/22/11 GIVEN TODAY 3Result Comment: [facility]# [id number] 4Result Comment: [05/25/2018] seq[employer] lot number [id number] exp 01/26/[address] [facility] [id number] 5Result Comment: [08/20/2017] [facility] 16621-469-89 6Admin Note: VIM dated 01/29/12 GIVEN TODAY 7Result Comment: [facility]#[id number] Medications acetaminophen 500 mg oral capsule 2 [...] Stop, 04/10/2215:14:00 EDT, Route to Pharmacy Electronically, [id number], [facility]/pharmacy #2025, 158, cm, 04/10/22 14:56:00 EDT, Height, 143,... Start Date: 04/10/22 Status: Ordered amLODIPine 5 mg oral tablet 1 tablet, By Mouth, Daily, # 30 tablet, 5 Refills, Maintenance, 08/24/22 20:08:00 EST, [facility], 159, cm, 08/21/22 11:38:00 EST, Height, 143, kg, 01/04/21 10:42:00 EDT, Dry Weight Start Date: 08/24/22 Status: Ordered Augmentin 875 mg-125 mg oral tablet 1 tablet, By Mouth, Every 12 hours, for 6 week(s), # 84 tablet, 0 Refills, Acute 10/12/22 13:28:00 EDT, 08/31/22 13:28:00 EST, Tablet, [facility]/pharmacy #2024, Partial fill [...] 11:06:00 EST, Aerosol, Route to Pharmacy Electronically, [id number]... Start Date: 09/12/22 Status: Ordered cilostazol 50 mg oral tablet 1 tablet = 50 mg, By Mouth, Daily, # 180 tablet, 0 Refills, Maintenance, 09/02/22 10:35:00 EST, Tablet, [facility]/pharmacy #2024, Partial fill [...] 100 Gm, 1 Refills, 09/22/22 7:28:00 EST, [facility]/pharmacy #2024, 25, APPLY [...] 08/31/22 13:30:00 EST, Route to Pharmacy Electronically, [facility]/pharmacy #2024, Partial fill upon patient request if the p... Start Date: 08/31/22 Status: Ordered Flonase 50 mcg/inh nasal spray See Instructions, 2 sprays Nares twice daily x 1 week, then once daily x 1-2 weeks until symptoms improve, # 16 Gm, 0 Refills, Maintenance, 02/28/21 16:31:00 EDT, [place], [facility]/pharmacy #202, Partial fill upon patient request if the prescription is for... Start Date: 02/28/21 Status: Ordered fluconazole 200 mg oral tablet 2 tablet = 400 mg, By Mouth, Daily, for 6 week(s), # 84 tablet, 0 Refills, Acute 10/12/22 13:28:00 EDT, 08/31/22 13:28:00 EST, Tablet, [facility]/pharmacy #2025, Partial fill upon patient request if the prescription is for a schedule II opioid drug., 157, cm... Start Date: 08/31/22 Stop Date: 10/12/22 Status: Ordered FLUoxetine 20 mg oral capsule See Instructions, TAKE 1 CAPSULE BY MOUTH EVERY DAY, # 90 capsule, Refills 1, Maintenance, 06/13/2215:26:00 EST, Instructions Replace Required Details, Route to Pharmacy Electronically, [facility], 158, cm, 06/09/22 11:21:00 EST, Height, 143, kg... Start Date: 06/13/22 Status: Ordered furosemide 20 mg oral tablet 1, tablet, By Mouth, Daily, MAY REPEAT IF NEEDED IN 2 HOURS, # 30 tablet, Refills 0, Maintenance, 09/26/22 15:09:00 EST, Route to Pharmacy Electronically, [facility], 157, cm, 09/13/22 15:58:00 EST, Height, 145, kg, 08/29/22 20:13:00 EST, Dry Weight Start Date: 09/26/22 Status: Ordered gabapentin 300 mg oral capsule 600 mg, 2, capsule, By Mouth, 3 times a day, # 180 capsule, Refills 3, Tot. Refills 3, Maintenance,08/25/22 22:35:00 EST, Route to Pharmacy Electronically, [facility]/pharmacy #2024, Partial fill upon patient request if the prescription is for a schedule II... Start Date: 08/25/22 Status: Ordered levothyroxine 0.137 mg oral tablet 1 tablet = 137 mcg, By Mouth, Daily, 1 tab on days 1-6, take 2 tabs on day 7, # 102 tablet, 1 Refills, Maintenance, 07/03/22 14:41:00 EST, Tablet, [facility]/pharmacy #2024, Partial fill upon patient request if the prescription is for a schedule II opioid dr... Start Date: 07/03/22 Status: Ordered meclizine 25 mg oral tablet See Instructions, PRN Dizziness, 1 tablet By Mouth 3 times a day, # 30 tablet, 0 Refills, Maintenance, 05/11/21 13:11:00 EDT, [facility]/pharmacy #2024, Partial fill upon patient request if the prescriptionis for a schedule II opioid drug., 160.02, cm, 10/0... Start Date: 05/11/21 Status: Ordered meloxicam 15 mg oral tablet See Instructions, TAKE 1 TABLET BY MOUTH DAILY WITH FOOD. LABS NEEDED FOR FURTHER REFILLS, # 30 tablet, 3 Refills, Maintenance, 07/17/22 19:56:00 EST, [facility]/pharmacy #2024, 158, cm, 07/13/22 13:46:00 EST, [...] 09/05/22 16:29:00 EST, Route to Pharmacy Electronically, [facility]/pharmacy #2024, Partialfill upon patient request if the prescription is fo... Start Date: 09/05/22 Stop Date: 09/12/22 Status: Ordered traMADol 50 mg oral tablet See Instructions, 2 tab po qam and one tab po q pm prn moderate to severe pain. 28 days. mass pat ok, # 81 tablet, 0 Refills, Maintenance, 09/21/22 16:44:00 EST, [facility]/pharmacy #2024, 157, cm, 09/13/2314:58:00 EST, Height, 145, kg, 08/29/22 20:13:00 E... Start Date: 09/21/22 Status: Ordered zolpidem 10 mg oral tablet 1 tablet = 10 mg, By Mouth, Daily at bedtime, PRN for sleep, for 30 days, masspat check may fill less, # 30 tablet, 0 Refills, Acute 11/20/22 16:47:00 EDT, 10/21/22 16:47:00 EDT, Tablet, [facility]/pharmacy#2024, 157, cm, 09/13/22 15:58:00 EST, Height, 145... Start Date: 10/21/22 Stop Date: 11/20/22 Status: Ordered zolpidem 10 mg oral tablet 1 tablet = 10 mg, By Mouth, Daily at bedtime, PRN for sleep, for 30 days, masspat check may fill less, # 10 tablet, 0 Refills, Acute 10/21/22 16:47:00 EDT, 09/21/22 16:47:00 EST, Tablet, [facility]/pharmacy#2024, 157, cm, 09/13/22 15:58:00 EST, [...] Name: Celestina Trinidad MD Position: [facility] Primary Care Physician Member Role: PCP Address: Address: [address] [place] [id number] Name: Hemalatha Lucas RN Position: [facility] RN Member Role: Primary Care Nurse Name: Lauren Mack RN Position: [facility] Nurse Member Role: Primary Care Nurse Name: Madelaine Ruiz RN Position: [facility] RN Member Role: Primary Care Nurse Name: Lora Santiago RN Position: [facility] SN RN Member Role: Primary Care Nurse Name: Mayco Ro RN Position: [facility] RN Member Role: Primary Care Nurse Name: Heydi Potts RN Position: [facility] RN Member Role: Primary Care Nurse Name: Janice Romano LPN Position: [facility] RN Member Role: Primary Care Nurse Name: Nadya Low RN Position: [facility] RN Member Role: Primary Care Nurse Name: Mirna Greenfield RN Position: [facility] RN Member Role: Primary Care Nurse Name: Nessa Bonilla RN Position: [facility] Hospital Manual Lathe Machinist Member Role: Primary Care Nurse Care Team Related Persons Name: DINESH SARGENT Address: home [address] [place] [address] Name: BON DE Address: [address] [address]
--- OUTSIDE RECORDS SUMMARY | 2024-06-24 14:11 | XMS_ITS | Continuity of Care Document ---
Author Organization [facility] Address [address] [place] [address]- Care Team Providers Care Entertainment Production Professional Name Role Phone Vivi HENNING, Celestina Givens Primary Care Physician Encounter [facility] Date(s): 07/25/22 - 08/24/22 [facility] [address] [place], [place] [address] Attending Physician: Calixto Beltran Admitting Physician: AdmCalixto hernandez Referring Physician: Admtr, Ar8 Allergies, Adverse Reactions, Alerts No Known Allergies Immunizations Given and Recorded Vaccine Date Status Refusal Reason tetanus/diphtheria/pertussis, acel(Tdap) 1 08/21/22 Given tetanus/diphtheria/pertussis, acel(Tdap) 2 08/13/12 Given [id number] 12y+ bivalent booster vax 06/14/22 Recorded influenza [...] inactivated 6 07/31/12 Gi hali SARS-CoV-2 mRNA (dgaxxib-bmar-ohwsv) vax 02/14/22 Recorded SARS-CoV-2 (COVID-19) mRNA BNT-162b2 vac 05/06/21 Given SARS-CoV-2 (COVID-19) mRNA BNT-162b2 vac 11/04/20 Recorded SARS-CoV-2 (COVID-19) mRNA BNT-162b2 vac 10/14/20 Recorded pneumococcal 23-valent vaccine 7 04/07/19 Given 1Result Comment: [facility]# [id number] 2Admin Note: VIM dated 08/22/11 GIVEN TODAY 3Result Comment: [facility]# [id number] 4Result Comment: [05/25/2018] seq[employer] lot number [id number] exp 01/26/2019 [facility] [id number] 5Result Comment: [08/20/2017] [facility] [id number] 6Admin Note: VIM dated 01/29/12 GIVEN TODAY 7Result Comment: [facility]#[id number] Medications acetaminophen 500 mg oral capsule 2 [...] Stop, 04/10/2215:14:00 EDT, Route to Pharmacy Electronically, [id number], [facility]/pharmacy #2025, 158, cm, 04/10/22 14:56:00 EDT, Height, 143,... Start Date: 04/10/22 Status: Ordered amLODIPine 5 mg oral tablet 1 tablet, By Mouth, Daily, # 30 tablet, 5 Refills, Maintenance, 08/24/22 20:08:00 EST, [facility], 159, cm, 08/21/22 11:38:00 EST, Height, 143, kg, 01/04/21 10:42:00 EDT, Dry Weight Start Date: 08/24/22 Status: Ordered Anoro Ellipta 62.5 mcg-25 mcg/inh inhalation powder 1 puffs, By Mouth, Daily, # 1 each, 6 Refills, Maintenance, 05/11/22 13:00:00 EDT, Powder, [facility], Partial fill upon patient request if the prescription is for a schedule II opioid drug., 1puffs By Mouth Daily,x30 days, 158, cm, 05/08/22 11... Start Date: 05/11/22 Stop Date: 12/07/22 Status: Ordered cilostazol 100 mg oral tablet 1 tablet, By Mouth, 2 times a day, # 60 tablet, 0 Refills, Maintenance, 08/20/22 11:31:00 EST, [facility], 159, cm, 08/15/22 11:23:00 EST, Height, 143, [...] 100 Gm, 1 Refills, 09/19/21 12:51:00 EST, [facility]/pharmacy #2025, 25, APPLY TOPICALLY 4 TIMES A DAY, 160.02, cm, 07/25/21 16:20:00 EST, Height, 143, kg,01/04/21 10:42:00 EDT, Dry Weight Start Date: 09/19/21 Status: Ordered doxycycline hyclate 100 mg oral tablet 1 tablet, By Mouth, 2 times a day, # 20 tablet, 0 Refills, Maintenance, 08/10/22 16:34:00 EST, [facility]/pharmacy #2025, 159, cm, 08/01/22 14:14:00 EST, Height, 143, kg, 01/04/21 10:42:00 EDT, Dry Weight Start Date: 08/10/22 Stop Date: 08/20/22 Status: Ordered Flonase 50 mcg/inh nasal spray See Instructions, 2 sprays Nares twice daily x 1 week, then once daily x 1-2 weeks until symptoms improve, # 16 Gm, 0 Refills, Maintenance, 02/28/21 16:31:00 EDT, [place], [facility]/pharmacy #202, Partial fill upon patient request if the prescription is for... Start Date: 02/28/21 Status: Ordered FLUoxetine 20 mg oral capsule See Instructions, TAKE 1 CAPSULE BY MOUTH EVERY DAY, # 90 capsule, Refills 1, Maintenance, 06/13/2215:26:00 EST, Instructions Replace Required Details, Route to Pharmacy Electronically, [facility], 158, cm, 06/09/22 11:21:00 EST, Height, 143, kg... Start Date: 06/13/22 Status: Ordered gabapentin 300 mg oral capsule 600 mg, 2, capsule, By Mouth, 2 times a day, # 120 capsule, Refills 1, Tot. Refills 1, Maintenance,07/22/22 8:06:00 EST, [facility] Electronically, [facility] 96 tablet, 0 Refills, 06/29/22 15:47:00 EST, [facility]/pharmacy #2024, 158, cm,06/09/22 11:21:00 EST, Height, [...] 0 Refills, Maintenance, 08/01/22 16:58:00 EST, Tablet, [facility]/pharmacy #2024, [...] Acute 09/27/22 16:00:00 EST, 08/01/22 21:26:00EST, Oint[place], [facility]/pharmacy #2024, Partial fill [...] Care Physician Member Role: PCP Address: Address: [address] [place] [id number] Name: Lauren Mack RN Position: [...] Care Nurse Name: Nessa Bonilla RN Position: [facility] Stoker Installation Mechanic Member Role: Primary Care Nurse Care Team Related Persons Name: ROLA SARGENTELLE Address: home [address] [place] [address] Name: BON DE Address: home [address] [place] [address]
--- OUTSIDE RECORDS SUMMARY | 2024-06-24 14:11 | XMS_ITS | Continuity of Care Document ---
Author Organization [facility] Address [address] [place] [address]- Care Team Providers Care Golf Course Mechanic Name Role Phone Yolanda AHN, Padmaja Pelayo Primary Care Physician Encounter [facility] Date(s): 09/29/21 - 10/29/21 [facility] [address] [place] [address]- Allergies, Adverse Reactions, Alerts No Known Allergies [...] tetanus/diphtheria/pertussis, acel(Tdap) 6 08/13/12 Given 1Result Comment: [facility]# [id number] 2Result Comment: [05/25/2018] [employer] lot number [id number] exp 01/26/2019 [facility] [id number] 3Result Comment: [08/20/2017] [facility] [id number] 4Admin Note: VIM dated 01/29/12 GIVEN TODAY 5Result Comment: [facility]#[id number] 6Admin Note: VIM dated 08/22/11 GIVEN TODAY [...] Replace Required Details, Route to Pharmacy Electronically, [id number]... Start Date: 10/28/21 Status: Ordered Aerochamber w/Mask [...] 07/25/21 16:53:00 EST, Route to Pharmacy Electronically, [id number], [facility]/pharmacy #2025, 160.02, cm, 07/25/21 16:20:00 EST, Height, 143... Start Date: 07/25/21 Status: Ordered diclofenac 1% topical gel See Instructions, APPLY TOPICALLY 4 TIMES A DAY, # 100 Gm, 1 Refills, 09/19/21 12:51:00 EST, [facility], APPLY TOPICALLY 4 TIMES A DAY, 160.02, cm, 07/25/21 16:20:00 EST, Height, 143, kg,01/04/21 10:42:00 EDT, Dry Weight Start Date: 09/19/21 Status: Ordered Flonase 50 mcg/inh nasal spray See Instructions, 2 sprays Nares twice daily x 1 week, then once daily x 1-2 weeks until symptoms improve, # 16 Gm, 0 Refills, Maintenance, 02/28/21 16:31:00 EDT, [place], [facility]/pharmacy #2024, Partial fill upon patient request if the prescription is for... Start Date: 02/28/21 Status: Ordered FLUoxetine 10 mg oral capsule 10 mg, 1, capsule, By Mouth, Daily, Take with 20mg capsule for total of 30mg daily, # 90 capsule, Refills 1, Tot. Refills 1, Maintenance, 09/19/21 12:45:00 EST, Route to Pharmacy Electronically, [facility]/pharmacy #2024, Partial fill upon patient request if... Start Date: 09/19/21 Status: Ordered FLUoxetine 20 mg oral capsule 20 mg, 1, capsule, By Mouth, Daily, Take with Fluoxetine 10mg for a total of 30mg, # 90 capsule, Refills 1, Tot. Refills 1, Maintenance, 05/04/21 16:44:00 EDT, Route to Pharmacy Electronically, [facility]/pharmacy #202, replacing 10mg dose, 160.02, cm, 08/0... Start Date: 05/04/21 Status: Ordered levothyroxine 0.137 mg oral tablet See Instructions, Take 1 tablet by mouth on days 1-6, then take 2 tablets by mouth on day 7, # 121 tablet, 5 Refills, Maintenance, 12/07/20 9:46:00 EDT, [facility]/pharmacy #202, 160.02, cm, 10/19/20 11:04:00 EDT, Height, 156.81, kg, 10/19/20 11:04:00 EDT,... Start Date: 12/07/20 Status: Ordered meclizine 25 mg oral tablet See Instructions, PRN Dizziness, 1 tablet By Mouth 3 times a day, # 30 tablet, 0 Refills, Maintenance, 05/11/21 13:11:00 EDT, [facility]/pharmacy #202, Partial fill [...] 0 Refills, Maintenance, 09/20/21 10:55:00 EST, [facility], 160.02, cm, 07/25/21 16:20:00 EST, Height, 143, kg, 01/04/21 10:42:00 EDT, Dry Weight Start Date: 09/20/21 Stop Date: 10/18/21 Status: Ordered zolpidem 10 mg oral tablet 1 tablet = 10 mg, By Mouth, Daily at bedtime, PRN for sleep, for 30 days, masspat check may fill less, # 30 tablet, 3 Refills, Acute 01/20/22 10:19:00 EDT, 09/22/21 10:19:00 EST, Tablet, [facility], 160.02, cm, 07/25/21 16:20:00 EST, Height,... Start [...]
--- OUTSIDE RECORDS SUMMARY | 2024-06-24 14:11 | XMS_ITS | Continuity of Care Document ---
Author Organization [facility] Address [address] [place] [address]- Care Team Providers Care Tank Car Repairer Name Role Phone Vivi HENNING, Celestina Givens Primary Care Physician Encounter [facility] Date(s): 05/29/23 - 06/28/23 [facility] [address] [place] [address]- Allergies, Adverse Reactions, Alerts No Known Allergies Immunizations Given and Recorded Vaccine Date Status Refusal Reason tetanus/diphtheria/pertussis, acel(Tdap) 1 08/21/22 Given tetanus/diphtheria/pertussis, acel(Tdap) 2 08/13/12 Given [id number]-[id number] 12y+ bivalent booster vax 06/14/22 Recorded influenza [...] inactivated 6 07/31/12 Gi hali SARS-CoV-2 mRNA (dgroygs-dxeb-wljsw) vax 02/14/22 Recorded SARS-CoV-2 (COVID-19) mRNA BNT-162b2 vac 05/06/21 Given SARS-CoV-2 (COVID-19) mRNA BNT-162b2 vac 11/04/20 Recorded SARS-CoV-2 (COVID-19) mRNA BNT-162b2 vac 10/14/20 Recorded pneumococcal 23-valent vaccine 7 04/07/19 Given 1Result Comment: [facility]# [id number] 2Admin Note: VIM dated 08/22/11 GIVEN TODAY 3Result Comment: [facility]# [id number] 4Result Comment: [05/25/2018] [facility] lot number [id number] exp 01/26/2019 [facility] [id number] 5Result Comment: [08/20/2017] [facility] [id number] 6Admin Note: VIM dated 01/29/12 GIVEN TODAY 7Result Comment: [facility]#[id number] Medications acetaminophen 500 mg oral capsule 2 [...] Stop, 04/10/2215:14:00 EDT, Route to Pharmacy Electronically, [id number], [facility]/pharmacy #2025, 158, cm, 04/10/22 14:56:00 [...] Gm, 0 Refills, Maintenance, 02/28/21 16:31:00 EDT, [place], [facility], Partial fill upon patient request if the prescription is for... Start Date: 02/28/21 Status: Ordered FLUoxetine 10 mg oral capsule 10 mg, 1, capsule, By Mouth, Daily, to be taken with 20mg capsules to equal 30mg daily, # 90 capsule, Refills 1, Tot. Refills 1, Maintenance, 04/03/23 11:25:00 EDT, Route to Pharmacy Electronically, [facility]/pharmacy #2024, Partial fill upon patient reques... Start Date: 04/03/23 Status: Ordered FLUoxetine 20 mg oral capsule 1, capsule, By Mouth, Daily, # 90 capsule, Refills 1, Tot. Refills 1, Maintenance, 04/03/23 11:23:00 EDT, Route to Pharmacy Electronically, [facility]/pharmacy #2024, 157, cm, 03/14/23 11:02:00 EDT, Height,145, kg, 08/29/22 20:13:00 EST, Dry Weight Start Date: 04/03/23 Status: Ordered gabapentin 300 mg oral capsule 600 mg, 2, capsule, By Mouth, 3 times a day, # 180 capsule, Refills 3, Tot. Refills 3, Maintenance,08/25/22 22:35:00 EST, Route to Pharmacy Electronically, [facility]/pharmacy #2024, Partial fill upon [...] tablet, 2 Refills, Maintenance, 02/27/23 7:25:00 EDT, [facility]ORE 864[facility], 157, cm, 12/08/22 14:27:00 EDT, Height, 145, [...] 16:30:00 EST, Aerosol, Route to Pharmacy Electronically, [id number], [facility]/pharmacy #2025, 157.5, cm, 05/22/23 7:39:00 EDT, Height... Start Date: 06/07/23 Status: Ordered traMADol 50 mg oral tablet See Instructions, 2 tab po qam and one tab po q pm prn moderate to severe pain. 28 days. mass pat ok, # 81 tablet, 0 Refills, Maintenance, 05/14/23 16:14:00 EDT, [facility]/pharmacy #5, 157, cm, 03/14/2311:02:00 EDT, Height, 145, kg, 08/29/22 20:13:00 E... Start Date: 05/14/23 Status: Ordered zolpidem 10 mg oral tablet 1 tablet = 10 mg, By Mouth, Daily at bedtime, PRN for sleep, for 30 days, # 30 tablet, 0 Refills, Acute 07/12/23 11:04:00 EST, 06/12/23 11:04:00 EST, Tablet, [facility]/pharmacy #2024, early refill for travel. Thanks., [...] Code MRI Safety Implantable Status Assigning Authority [id number] Unknown [id number] Unknown 08/26/24 Unknown Unknown Active GS1 Patient Care team information Care Team Personnel Name: Celestina Trinidad MD Position: [facility] Physician - Primary Care Member Role: PCP Address: Address: [address] [place] [address] Name: Hemalatha Lucas RN Position: [facility] RN Member Role: Primary Care Nurse Name: Lauren Mack RN Position: [facility] AMB Nurse Member Role: Primary Care Nurse Name: Madelaine Ruiz RN Position: [facility] RN Member Role: Primary Care Nurse Name: Lora Santiago RN Position: [facility] SN RN Member Role: Primary Care Nurse Name: Mayco Ro RN Position: [facility] RN Member Role: Primary Care Nurse Name: Heydi Potts RN Position: [facility] RN Member Role: Primary Care Nurse Name: Janice Romano LPN Position: [facility] RN Member Role: Primary Care Nurse Name: Nadya Low RN Position: [facility] RN Member Role: Primary Care Nurse Name: Mirna Greenfield RN Position: [facility] RN Member Role: Primary Care Nurse Name: Nessa Bonilla RN Position: [facility] Hospital Felt Coverer Member Role: Primary Care Nurse Care Team Related Persons Name: ROSETTA, DINESH Address: home [address] [place] [address] Name: BON DE Address: home [address] [address]
--- OUTSIDE RECORDS SUMMARY | 2024-06-24 14:11 | XMS_ITS | Continuity of Care Document ---
Author Organization [facility] Address [address] [place] [address]- Care Team Providers Care Industrial Safety And Health Manager Name Role Phone Vivi HENNING, Celestina Givens Primary Care Physician Encounter [facility] Date(s): 03/24/24 - 04/23/24 [facility] [address] [place] [address]- Allergies, Adverse Reactions, Alerts No Known Allergies [...] 08/21/22 Given tetanus/diphtheria/pertussis, acel(Tdap) 7 08/13/12 Given [id number] 12y+ bivalent booster vax 06/14/22 Recorded SARS-CoV-2 mRNA (ulmdpyo-stxa-jwkly) vax 02/14/22 Recorded SARS-CoV-2 (COVID-19) mRNA BNT-162b2 vac 05/06/21 Given SARS-CoV-2 (COVID-19) mRNA BNT-162b2 vac 11/04/20 Recorded SARS-CoV-2 (COVID-19) mRNA BNT-162b2 vac 10/14/20 Recorded pneumococcal 23-valent vaccine 8 04/07/19 Given 1Result Comment: screening negative 2Result Comment: [facility]# [id number] 3Result Comment: [05/25/2018] seq[employer] lot number [id number] exp 01/26/2019 [facility] [id number] 4Result Comment: [08/20/2017] [facility] [id number] 5Admin Note: VIM dated 01/29/12 GIVEN TODAY 6Result Comment: [facility]# [id number] 7Admin Note: VIM dated 08/22/11 GIVEN TODAY 8Result Comment: [facility]#[id number] Medications acetaminophen 500 mg oral capsule 2 [...] 1 Refills, Soft Stop, 12/06/23 17:28:00 EDT, [facility]/pharmacy #5, Partial fill upon patient request if [...] Gm, 1 Refills, Maintenance, 04/22/24 15:15:00 EDT, [facility] 30, APPLY TO AFFECTED AREA 4 TIMES [...] Gm, 0 Refills, Maintenance, 02/28/21 16:31:00 EDT, [place], [facility]/pharmacy #2024, Partial fill upon patient request if the prescription is for... Start Date: 02/28/21 Status: Ordered FLUoxetine 10 mg oral capsule 1, capsule, By Mouth, Daily, INSTR:TO BE TAKEN WITH 20MG CAPSULES TO EQUAL 30MG DAILY, # 90 capsule, Refills 1, Maintenance, 01/25/24 9:11:00 EDT, Route to Pharmacy Electronically, [facility], 157.5, cm, 01/22/24 10:31:00 EDT, Height, 145.9, kg,... Start Date: 01/25/24 Status: Ordered gabapentin 300 mg oral capsule 600 mg, 2, capsule, By Mouth, 3 times a day, # 180 capsule, Refills 3, Tot. Refills 3, Maintenance,08/25/22 22:35:00 EST, Route to Pharmacy Electronically, [facility]/pharmacy #2024, [...] Refills, Maintenance, 12/28/23 16:17:00 EDT, [facility], 157.5, cm, 10/18/23 15:15:00 EDT, Height, 145.9, [...] tablet, 1 Refills, Maintenance, 03/28/24 7:37:00 EDT, [facility]/pharmacy #2025, 157.5, cm, 02/12/24 14:48:00 EDT, Height, 145.9, kg, :39:00 EDT, Dry Weight Start Date: 03/28/24 Status: Ordered metFORMIN 500 mg oral tablet, extended release 1 tablet = 500 mg, By Mouth, Daily, # 90 tablet, 1 Refills, Maintenance, 01/22/24 11:02:00 EDT, ER Tablet, [facility]/pharmacy #2025, Partial fill upon patient [...] tablet, 0 Refills, Maintenance, 03/31/24 17:50:00 EDT, [facility]/pharmacy #2025, Partial fill upon [...] Code MRI Safety Implantable Status Assigning Authority [id number] Unknown [id number] Unknown 08/26/24 Unknown Unknown Active GS1 Patient Care team information Care Team Personnel Name: Celestina Trinidad MD Position: [facility] Physician - Primary Care Member Role: PCP Address: Address: [address] [place] [id number] Name: Hemalatha Lucas RN Position: [facility] RN Member Role: Primary Care Nurse Name: Lauren Mack RN Position: [facility] RN Member Role: Primary Care Nurse Name: Madelaine Ruiz RN Position: [facility] RN Member Role: Primary Care Nurse Name: Lora Santiago RN Position: [facility] SN RN Member Role: Primary Care Nurse Name: Mayco Ro RN Position: [facility] RN Member Role: Primary Care Nurse Name: Heydi Potts RN Position: [facility] SN RN Member Role: Primary Care Nurse Name: Janice Romano LPN Position: [facility] RN Member Role: Primary Care Nurse Name: Nadya Low RN Position: [facility] RN Member Role: Primary Care Nurse Name: Mirna Greenfield RN Position: [facility] RN Member Role: Primary Care Nurse Name: Nessa Bonilla RN Position: [facility] Press[employer] Automatic Member Role: Primary Care Nurse Care Team Related Persons Name: DINESH SARGENT Address: home [address] [place] [address] Name: BON DE Address: home [address] [address]
--- OUTSIDE RECORDS SUMMARY | 2024-06-24 14:11 | XMS_ITS | Continuity of Care Document ---
Author Organization [facility] Address [address] [place] [address]- Care Team Providers Care Certified Procedural Coder Name Role Phone Vivi HENNING, Celestina Givens Primary Care Physician Encounter [facility] Date(s): 12/01/22 - 12/31/22 [facility] [address] [place] [address]- Allergies, Adverse Reactions, Alerts No Known Allergies Immunizations Given and Recorded Vaccine Date Status Refusal Reason tetanus/diphtheria/pertussis, acel(Tdap) 1 08/21/22 Given tetanus/diphtheria/pertussis, acel(Tdap) 2 08/13/12 Given [id number]-0bSNX 12y+ bivalent booster vax 06/14/22 Recorded influenza [...] inactivated 6 07/31/12 Gi hali SARS-CoV-2 mRNA (pwwqtie-khrr-gyjal) vax 02/14/22 Recorded SARS-CoV-2 (COVID-19) mRNA BNT-162b2 vac 05/06/21 Given SARS-CoV-2 (COVID-19) mRNA BNT-162b2 vac 11/04/20 Recorded SARS-CoV-2 (COVID-19) mRNA BNT-162b2 vac 10/14/20 Recorded pneumococcal 23-valent vaccine 7 04/07/19 Given 1Result Comment: [facility][NOTE 3]# [id number] 2Admin Note: VIM dated 08/22/11 GIVEN TODAY 3Result Comment: [facility]# [id number] 4Result Comment: [05/25/2018] [employer] lot number [id number] exp 01/26/2019 [facility] [id number] 5Result Comment: [08/20/2017] [facility] [id number] 6Admin Note: VIM dated 01/29/12 GIVEN TODAY 7Result Comment: [facility][NOTE 3]#[id number] Medications acetaminophen 500 mg oral capsule 2 [...] Stop, 04/10/2215:14:00 EDT, Route to Pharmacy Electronically, [id number], [facility]/pharmacy #2025, 158, cm, 04/10/22 14:56:00 EDT, Height, 143,... Start Date: 04/10/22 Status: Ordered amLODIPine 10 mg oral tablet 1 tablet, By Mouth, Daily, # 90 tablet, 0 Refills, Maintenance, 10/23/22 12:47:00 EDT, [facility] STORE 100[facility], 157, cm, 09/13/22 15:58:00 EST, Height, 145, kg, 08/29/22 20:13:00 EST, Dry Weight Start Date: 10/23/22 Status: Ordered budesonide-formoterol 80 mcg-4.5 mcg/inh inhalation aerosol with adapter 2, puffs, Inhalation, 2 times a day, PRN, use with spacer chamber, rinse mouth and throat after use, j44.9, # 1 each, Refills 6, Tot. Refills 6, Maintenance, 12/08/22 12:55:00 EDT, Aerosol, Route to Pharmacy Electronically, [id number]... Start Date: 12/08/22 Status: Ordered Compression Stockings [...] 100 Gm, 1 Refills, 09/22/22 7:28:00 EST, [facility]/pharmacy #2024, 25, APPLY TOPICALLY 4 TIMES [...] 08/31/22 13:30:00 EST, Route to Pharmacy Electronically, [facility]/pharmacy #2024, Partial fill upon patient request if the p... Start Date: 08/31/22 Status: Ordered Flonase 50 mcg/inh nasal spray See Instructions, 2 sprays Nares twice daily x 1 week, then once daily x 1-2 weeks until symptoms improve, # 16 Gm, 0 Refills, Maintenance, 02/28/21 16:31:00 EDT, [place], [facility]/pharmacy #2024, Partial fill upon [...] 11/29/22 22:18:00 EDT, Route to Pharmacy Electronically, [facility] STORE 14917, 157, cm, 10/30/22 13:53:00 EDT, Height, 145, [...] 1 Refills, Maintenance, 07/03/22 14:41:00 EST, Tablet, [facility]/pharmacy #2024, Partial fill upon patient request if the prescription is for a schedule II opioid drMelonie.. Start Date: 07/03/22 Status: Ordered meclizine 25 mg oral tablet See Instructions, PRN Dizziness, 1 tablet By Mouth 3 times a day, # 30 tablet, 0 Refills, Maintenance, 10/13/21 13:11:00 EDT, [facility], Partial fill upon patient request if the prescriptionis for a schedule II opioid drug., 160.02, cm, 10/0... Start Date: 05/11/21 Status: Ordered meloxicam 15 mg oral tablet See Instructions, TAKE 1 TABLET BY MOUTH DAILY WITH FOOD. LABS NEEDED FOR FURTHER REFILLS, # 30 tablet, 3 Refills, Maintenance, 10/18/22 21:31:00 EDT, [facility], 157, cm, 09/13/22 15:58:00 EST,Height, 145, kg, [...] 16:24:00 EDT, 12/31/22 16:24:00 EDT, Tablet, [facility], early refill for travel. Thanks., 157, cm, [...] Team Personnel Name: Celestina Trinidad MD Position: [facility] Physician - Primary Care Member Role: PCP Address: Address: [address] [place] [address] Name: Hemalatha Lucas RN Position: [facility] RN Member Role: Primary Care Nurse Name: Lauren Mack RN Position: [facility] AMB Nurse Member Role: Primary Care Nurse Name: Madelaine Ruiz RN Position: [facility] RN Member Role: Primary Care Nurse Name: Lora Santiago RN Position: [facility] SN RN Member Role: Primary Care Nurse Name: Mayco Ro RN Position: [facility] RN Member Role: Primary Care Nurse Name: Heydi Potts RN Position: [facility] RN Member Role: Primary Care Nurse Name: Janice Romano LPN Position: [facility] RN Member Role: Primary Care Nurse Name: Nadya Low RN Position: [facility] RN Member Role: Primary Care Nurse Name: Mirna Greenfield RN Position: [facility] RN Member Role: Primary Care Nurse Name: Nessa Bonilla RN Position: [facility] Custom Garment Designer Member Role: Primary Care Nurse Care Team Related Persons Name: DINESH SARGENT Address: home [address] [place] [address] Name: BON DE Address: home [address] [address]
--- OUTSIDE RECORDS SUMMARY | 2024-06-24 14:11 | XMS_ITS | Continuity of Care Document ---
Author Organization [facility] Address [address] [place] [address]- Care Team Providers Care School Program Director Name Role Phone Vivi HENNING, Celestina Givens Primary Care Physician Encounter [facility] [place] [place] Date(s): 01/31/24 - 03/01/24 [facility] [address] [place] [address]- Allergies, Adverse Reactions, Alerts No Known Allergies [...] 08/21/22 Given tetanus/diphtheria/pertussis, acel(Tdap) 7 08/13/12 Given [id number]-KwM-7jCTN 12y+ bivalent booster vax 06/14/22 Recorded SARS-CoV-2 mRNA (jdzawyh-vinz-hbufp) vax 02/14/22 Recorded SARS-CoV-2 (COVID-19) mRNA BNT-162b2 vac 05/06/21 Given SARS-CoV-2 (COVID-19) mRNA BNT-162b2 vac 11/04/20 Recorded SARS-CoV-2 (COVID-19) mRNA BNT-162b2 vac 10/14/20 Recorded pneumococcal 23-valent vaccine 8 04/07/19 Given 1Result Comment: screening negative 2Result Comment: [facility]# [id number] 3Result Comment: [05/25/2018] [facility] lot number [id number] exp 01/26/2019 [facility] [id number] 4Result Comment: [08/20/2017] [facility] [id number] 5Admin Note: VIM dated 01/29/12 GIVEN TODAY 6Result Comment: [facility]# [id number] 7Admin Note: VIM dated 08/22/11 GIVEN TODAY 8Result Comment: [facility]#[id number] Medications acetaminophen 500 mg oral capsule 2 [...] Refills, Soft Stop, 12/06/23 17:28:00 EDT, [facility]/pharmacy #5, Partial fill upon patient request if [...] 16:45:00 EDT, Route to Pharmacy Electronically, [facility]/pharmacy #2024, Partial fill upon patient request if the presc... Start Date: 05/17/23 Stop Date: 05/17/24 Status: Ordered diclofenac 1% topical gel See Instructions, APPLY TO AFFECTED AREA 4 TIMES A DAY, # 100 Gm, 1 Refills, Maintenance, 11/07/23 7:48:00 EDT, [facility]/pharmacy #2024, 25, APPLY TO AFFECTED AREA 4 TIMES A DAY, 157.5, cm, 10/18/23 15:15:00 EDT, Height, 145.9, kg, 05/22/23 7:39:00 EDT, . Start Date: 11/07/23 Status: Ordered diclofenac 1% topical gel See Instructions, APPLY TO AFFECTED AREA 4 TIMES A DAY. NOT COVERED, # 100 Gm, 1 Refills, Maintenance, 02/01/24 13:44:00 EDT, [facility], 30, APPLY TO AFFECTED AREA 4 TIMES [...] Gm, 0 Refills, Maintenance, 02/28/21 16:31:00 EDT, [place], [facility]/pharmacy #5, Partial fill upon patient request if the prescription is for... Start Date: 02/28/21 Status: Ordered FLUoxetine 10 mg oral capsule 1, capsule, By Mouth, Daily, INSTR:TO BE TAKEN WITH 20MG CAPSULES TO EQUAL 30MG DAILY, # 90 capsule, Refills 1, Maintenance, 01/25/24 9:11:00 EDT, Route to Pharmacy Electronically, [facility], 157.5, cm, 01/22/24 10:31:00 EDT, Height, 145.9, kg,... Start Date: 01/25/24 Status: Ordered gabapentin 300 mg oral capsule 600 mg, 2, capsule, By Mouth, 3 times a day, # 180 capsule, Refills 3, Tot. Refills 3, Maintenance,08/25/22 22:35:00 EST, Route to Pharmacy Electronically, [facility]/pharmacy #2024, Partial fill [...] Refills, Maintenance, 12/28/23 16:17:00 EDT, [facility], 157.5, cm, 10/18/23 15:15:00 EDT, Height, 145.9, kg, 05/22/23 7:39:00 EDT, Dry Weight Start Date: 12/28/23 Status: Ordered meclizine 25 mg oral tablet See Instructions, PRN Dizziness, 1 tablet By Mouth 3 times a day, # 30 tablet, 0 Refills, Maintenance, 02/27/23 10:43:00 EDT, [facility]/pharmacy #2025, Partial fill upon patient request if [...] tablet, 0 Refills, Maintenance, 11/29/23 15:24:00 EDT, [facility]/pharmacy #2025, 157.5, cm, 10/18/23 1... Start Date: [...] Code MRI Safety Implantable Status Assigning Authority [id number] [id number] Unknown [id number] Unknown 08/26/24 Unknown Unknown Active GS1 Patient Care team information Care Team Personnel Name: Celestina Trinidad MD Position: [facility] Physician - Primary Care Member Role: PCP Address: Address: [address] [place] [address] Name: Hemalatha Lucas RN Position: [facility] RN Member Role: Primary Care Nurse Name: Lauren Mack RN Position: [facility] AMB Nurse Member Role: Primary Care Nurse Name: Madelaine Ruiz RN Position: [facility] RN Member Role: Primary Care Nurse Name: Lora Santiago RN Position: [facility] SN RN Member Role: Primary Care Nurse Name: Mayco Ro RN Position: [facility] RN Member Role: Primary Care Nurse Name: Heydi Potts RN Position: [facility] SN RN Member Role: Primary Care Nurse Name: Janice Romano LPN Position: [facility] RN Member Role: Primary Care Nurse Name: Nadya Low RN Position: [facility] RN Member Role: Primary Care Nurse Name: Mirna Greenfield RN Position: [facility] RN Member Role: Primary Care Nurse Name: Nessa Bonilla RN Position: [facility] Hospital Order Dispatcher Member Role: Primary Care Nurse Care Team Related Persons Name: DINESH SARGENT Address: [address] [place] [address] Name: BON DE Address: home [address] [place] [address]
--- OUTSIDE RECORDS SUMMARY | 2024-06-24 14:12 | XMS_ITS | Continuity of Care Document ---
Author Organization [facility] Address [address] [place] [address]- Care Team Providers Care Health Safety Specialist Name Role Phone Noe RAILROAD OPERATOR, Mónica Graham Primary Care Physician Unamonico iljoe Encounter [facility] Date(s): 03/06/22 - 04/05/22 [facility] [address] [place] [id number] Allergies, Adverse Reactions, Alerts No Known Allergies [...] tetanus/diphtheria/pertussis, acel(Tdap) 6 08/13/12 Given 1Result Comment: [facility]# [id number] 2Result Comment: [05/25/2018] [facility] lot number [id number] exp 01/26/2019 [facility] [id number] 3Result Comment: [08/20/2017] [facility] [id number] 4Admin Note: VIM dated 01/29/12 GIVEN TODAY 5Result Comment: [facility]#[id number] 6Admin Note: VIM dated 08/22/11 GIVEN TODAY [...] Refills 11, Tot. Refills 11, Soft Stop, 03/02/2212:01:00 EDT, Route to Pharmacy Electronically, [id number], [facility]/pharmacy #5, 158, cm, 03/02/22 11:38:00 EDT, Height, 143,... Start Date: 03/02/22 Status: Ordered Compression Stockings See Instructions, # 2 each, Refills 2, Tot. Refills 2, Maintenance, surgical, calf length 20-30 mm Hg Dx: venous insufficiency, 11/26/19 14:34:00 EDT, Compound Start Date: 11/26/19 Status: Ordered diclofenac 1% topical gel See Instructions, APPLY TOPICALLY 4 TIMES A DAY, # 100 Gm, 1 Refills, 09/19/21 12:51:00 EST, [facility]/pharmacy #5, 25, APPLY TOPICALLY 4 TIMES A DAY, 160.02, cm, 07/25/21 16:20:00 EST, Height, 143, kg,01/04/21 10:42:00 EDT, Dry Weight Start Date: 09/19/21 Status: Ordered Flonase 50 mcg/inh nasal spray See Instructions, 2 sprays Nares twice daily x 1 week, then once daily x 1-2 weeks until symptoms improve, # 16 Gm, 0 Refills, Maintenance, 02/28/21 16:31:00 EDT, [place], [facility]/pharmacy #2025, Partial fill upon patient request if the prescription is for... Start Date: 02/28/21 Status: Ordered FLUoxetine 10 mg oral capsule 10 mg, 1, capsule, By Mouth, Daily, Take with 20mg capsule for total of 30mg daily, # 90 capsule, Refills 1, Tot. Refills 1, Maintenance, 03/11/22 11:03:00 EDT, Route to Pharmacy Electronically, [facility]/pharmacy #202, Partial fill upon patient request if... Start Date: 03/11/22 Status: Ordered FLUoxetine 20 mg oral capsule 20 mg, 1, capsule, By Mouth, Daily, Take with Fluoxetine 10mg for a total of 30mg, # 90 capsule, Refills 1, Tot. Refills 1, Maintenance, 12/30/21 12:34:00 EDT, Route to Pharmacy Electronically, [facility]/pharmacy #202, replacing 10mg dose, 160.02, cm, 10/28... Start Date: 12/30/21 Status: Ordered fluticasone-vilanterol 100 mcg-25 mcg/inh inhalation powder 1 puffs, Inhalation, Every 24 hours, rinse mouth and throat after use, j45.40, # 1 each, 11 Refills, Maintenance, 03/10/22 12:51:00 EDT, [place], [facility]/pharmacy #2024, Partial fill upon patient request if the prescription is for a schedule II opioid drug... Start Date: 03/10/22 Status: Ordered levothyroxine 0.137 mg oral tablet See Instructions, TAKE 1 TABLET BY MOUTH ON DAYS 1-6, THEN TAKE 2 TABLETS BY MOUTH ON DAY 7, # 96 tablet, 1 Refills, [facility]26, 160.02, cm, 10/04/21 10:38:00 EST, Height, 143, [...] FOOD, # 30 tablet, 0 Refills, Maintenance, 03/21/22 12:05:00 EDT, [facility], Labs needed for further refills., 158, cm, 03/02/22 11:38:00 EDT, Height, 143, kg, 01/04/21 10:42:00 EDT, Dry Weight Start Date: 03/21/22 Status: Ordered Splint See Instructions, # 1 each, Maintenance, left wrist short cock-up splint, 01/08/20 14:28:00 EDT, Supply Start Date: 01/08/20 Status: Ordered traMADol 50 mg oral tablet See Instructions, 2 tab po qam and one tab po q pm prn moderate to severe pain, # 81 tablet, 0 Refills, Maintenance, 03/12/22 18:29:00 EDT, [facility], 158, cm, 03/02/22 11:38:00 EDT, Height,143, kg, 01/04/21 10:42:00 EDT, Dry Weight Start Date: 03/12/22 Status: Ordered zolpidem 10 mg oral tablet 1 tablet = 10 mg, By Mouth, Daily at bedtime, PRN for sleep, for 30 days, masspat check may fill less, # 30 tablet, 3 Refills, Acute 07/19/22 13:40:00 EST, 03/21/22 13:40:00 EDT, Tablet, [facility], 158, cm, 03/02/22 11:38:00 EDT, Height, 143... Start Date: 03/21/22 Stop Date: 07/19/22 Status: Ordered Problem List Condition Effective Dates [...] x 25 years; entered on: 11/14/21 Sex Care Team Personnel Name: Noe AHN, Mónica Graham
--- OUTSIDE RECORDS SUMMARY | 2024-06-24 14:12 | XMS_ITS | Continuity of Care Document ---
Author Organization [facility] Address [address] [place] [address]- Care Team Providers Care Exhibit Carpenter Name Role Phone Celestina Trinidad MD Primary Care Physician En[place] [facility] [place](s): 04/03/23 - 05/05/23 [facility] [address] [place] [address]- Attending Physician: Rosie Cortes NP Referring Physician: Celestina Trinidad MD Allergies, Adverse Reactions, Alerts No Known Allergies Immunizations Given and Recorded Vaccine Date Status Refusal Reason tetanus/diphtheria/pertussis, acel(Tdap) 1 08/21/22 Given tetanus/diphtheria/pertussis, acel(Tdap) 2 08/13/12 Given [id number] 12y+ bivalent booster vax 06/14/22 Recorded influenza [...] inactivated 6 07/31/12 Gi hali SARS-CoV-2 mRNA (xapysrw-onvh-birte) vax 02/14/22 Recorded SARS-CoV-2 (COVID-19) mRNA BNT-162b2 vac 05/06/21 Given SARS-CoV-2 (COVID-19) mRNA BNT-162b2 vac 11/04/20 Recorded SARS-CoV-2 (COVID-19) mRNA BNT-162b2 vac 10/14/20 Recorded pneumococcal 23-valent vaccine 7 04/07/19 Given 1Result Comment: [facility]# [id number] 2Admin Note: VIM dated 08/22/11 GIVEN TODAY 3Result Comment: [facility]# [id number] 4Result Comment: [05/25/2018] seq[facility] lot number [id number] exp 01/26/2019 [facility] [id number] 5Result Comment: [08/20/2017] [facility] [id number] 6Admin Note: VIM dated 01/29/12 GIVEN TODAY 7Result Comment: [facility]#[id number] Medications acetaminophen 500 mg oral capsule 2 [...] Stop, 04/10/2215:14:00 EDT, Route to Pharmacy Electronically, [id number], [facility]/pharmacy #2025, 158, [...] 100 Gm, 1 Refills, Maintenance, 01/08/23 9:36:00EDT, [facility] STORE 24724, 50, APPLY TOPICALLY 4 TIMES A DAY, 157, cm, 12/08/22 14:27:00 EDT, Height, 145, kg, 08/29/22 20:13:00 EST, Dry Weight Start Date: 01/08/23 Status: Ordered diclofenac sodium 75 mg oral delayed release tablet 60 each, 0 Refill(s), TAKE 1 TABLET BY MOUTH TWICE A DAY DIRECTED WITH FOOD, 0 Refills, 03/14/2310:59:00 EDT, Partial fill upon patient request if the prescription is for a schedule II opioid drug. Start Date: 03/14/23 Status: Ordered Flonase 50 mcg/inh nasal spray See Instructions, 2 sprays Nares twice daily x 1 week, then once daily x 1-2 weeks until symptoms improve, # 16 Gm, 0 Refills, Maintenance, 02/28/21 16:31:00 EDT, [place], [facility]/pharmacy #2024, Partial [...] EDT, [facility] STORE 91815, 157, cm, 12/08/22 14:27:00 EDT, Height, 145, kg, 08/29/22 20:13:00 EST, Dry... Start Date: 02/27/23 Status: Ordered meclizine 25 mg oral tablet See Instructions, PRN Dizziness, 1 tablet By Mouth 3 times a day, # 30 tablet, 0 Refills, Maintenance, 02/27/23 10:43:00 EDT, [facility]/pharmacy #2024, Partial [...] Dry Weight Start Date: 05/01/23 Status: Ordered Splint See Instructions, # 1 each, Maintenance, left wrist short cock-up splint, 01/08/20 14:28:00 EDT, Supply Start Date: 01/08/20 Status: Ordered Symbicort 80mcg/4.5mcg Inhaler 10 Gm, 0 Refill(s), TAKE 2 PUFFS TWICE A DAY FOR WHEEZING SHORTNESS OF BREATH USE WITH SPACER [place]/THROAT AFTER., Refills 0, 03/14/23 10:59:00 EDT Start Date: 03/14/23 Status: Ordered traMADol 50 mg oral tablet See Instructions, 2 tab po qam and one tab po q pm prn moderate to severe pain. 28 days. mass pat ok, # 81 tablet, 0 Refills, Maintenance, 02/20/23 17:17:00 EDT, [facility], 157, cm, 12/08/2313:27:00 EDT, Height, 145, kg, 08/29/22 20:13:00 E... 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 Name: Hemalatha Lucas RN Position: [facility] RN Member Role: Primary Care Nurse Name: Lauren Mack RN Position: [facility] Nurse Member Role: Primary Care Nurse Name: Madelaine Ruiz RN Position: [facility] RN Member Role: Primary Care Nurse Name: Lora Santiago RN Position: [facility] SN RN Member Role: Primary Care Nurse Name: Mayco Ro RN Position: [facility] RN Member Role: Primary Care Nurse Name: Heydi Potts RN Position: [facility] RN Member Role: Primary Care Nurse Name: Janice Romano LPN Position: [facility] RN Member Role: Primary Care Nurse Name: Nadya Low RN Position: [facility] RN Member Role: Primary Care Nurse Name: Mirna Greenfield RN Position: [facility] RN Member Role: Primary Care Nurse Name: Nessa Bonilla RN Position: [facility] Hospital Truck Driver Rubbish Collector Member Role: Primary Care Nurse Care Team Related Persons Name: ROSETTA DINESH Address: home [address] [place] [address] Name: BON DE Address: [address] [address]
--- OUTSIDE RECORDS SUMMARY | 2024-06-24 14:12 | XMS_ITS | Continuity of Care Document ---
Author Organization [facility] Address [address] [place] [address]- Care Team Providers Care Manager It Security Name Role Phone Vivi HENNING, Celestina Givens Primary Care Physician [place] [facility] [place] 04/28/24 [facility] [address] [place] [address]- Allergies, Adverse Reactions, Alerts No Known Allergies [...] 08/21/22 Given tetanus/diphtheria/pertussis, acel(Tdap) 7 08/13/12 Given [id number] 12y+ bivalent booster vax 06/14/22 Recorded SARS-CoV-2 mRNA (yawtffr-bnts-kpnsd) vax 02/14/22 Recorded SARS-CoV-2 (COVID-19) mRNA BNT-162b2 vac 05/06/21 Given SARS-CoV-2 (COVID-19) mRNA BNT-162b2 vac 11/04/20 Recorded SARS-CoV-2 (COVID-19) mRNA BNT-162b2 vac 10/14/20 Recorded pneumococcal 23-valent vaccine 8 04/07/19 Given 1Result Comment: screening negative 2Result Comment: [facility]# [id number] 3Result Comment: [05/25/2018] seq[facility] lot number [id number] exp 01/26/2019 [facility] [id number] 4Result Comment: [08/20/2017] [facility] [id number] 5Admin Note: VIM dated 01/29/12 GIVEN TODAY 6Result Comment: [facility]# [id number] 7Admin Note: VIM dated 08/22/11 GIVEN TODAY 8Result Comment: [facility]#[id number] Medications acetaminophen 500 mg oral capsule 2 [...] Soft Stop, 12/06/23 17:28:00 EDT, [facility]/pharmacy #5, Partial fill upon patient request [...] 1 Refills, Maintenance, 04/22/24 15:15:00 EDT, [facility], 30, APPLY TO AFFECTED [...] Gm, 0 Refills, Maintenance, 02/28/21 16:31:00 EDT, [place], [facility]/pharmacy #2024, Partial fill upon patient request if the prescription is for... Start Date: 02/28/21 Status: Ordered FLUoxetine 10 mg oral capsule 1, capsule, By Mouth, Daily, INSTR:TO BE TAKEN WITH 20MG CAPSULES TO EQUAL 30MG DAILY, # 90 capsule, Refills 1, Maintenance, 01/25/24 9:11:00 EDT, Route to Pharmacy Electronically, [facility] STORE 56596, 157.5, cm, 01/22/24 10:31:00 EDT, Height, 145.9, kg,... Start Date: 01/25/24 Status: Ordered gabapentin 300 mg oral capsule 600 mg, 2, capsule, By Mouth, 3 times a day, # 180 capsule, Refills 3, Tot. Refills 3, Maintenance,08/25/22 22:35:00 EST, Route to Pharmacy Electronically, [facility]/pharmacy #2024, Partial fill upon patient request [...] Refills, Maintenance, 12/28/23 16:17:00 EDT, [facility], 157.5, cm, 10/18/23 15:15:00 EDT, Height, 145.9, [...] tablet, 1 Refills, Maintenance, 03/28/24 7:37:00 EDT, [facility]/pharmacy #2025, 157.5, cm, 02/12/24 14:48:00 EDT, Height, 145.9, kg, :39:00 EDT, Dry Weight Start Date: 03/28/24 Status: Ordered metFORMIN 500 mg oral tablet, extended release 1 tablet = 500 mg, By Mouth, Daily, # 90 tablet, 1 Refills, Maintenance, 01/22/24 11:02:00 EDT, ER Tablet, [facility]/pharmacy #2025, Partial fill upon patient request [...] tablet, 0 Refills, Maintenance, 03/31/24 17:50:00 EDT, [facility]/pharmacy #5, Partial fill upon patient request [...] Code MRI Safety Implantable Status Assigning Authority [id number] Unknown [id number] Unknown 08/26/24 Unknown Unknown Active GS1 Patient Care team information Care Team Personnel Name: Celestina Trinidad MD Position: [facility] Physician - Primary Care Member Role: PCP Address: Address: [address] [place] [id number] Name: Hemalatha Lucas RN Position: [facility] RN Member Role: Primary Care Nurse Name: Lauren Mack RN Position: [facility] RN Member Role: Primary Care Nurse Name: Madelaine Ruiz RN Position: [facility] RN Member Role: Primary Care Nurse Name: Lora Santiago RN Position: [facility] SN RN Member Role: Primary Care Nurse Name: Mayco Ro RN Position: [facility] RN Member Role: Primary Care Nurse Name: Heydi Potts RN Position: [facility] SN RN Member Role: Primary Care Nurse Name: Janice Romano LPN Position: [facility] RN Member Role: Primary Care Nurse Name: Nadya Low RN Position: [facility] RN Member Role: Primary Care Nurse Name: Mirna Greenfield RN Position: [facility] RN Member Role: Primary Care Nurse Name: Nessa Bonilla RN Position: [facility] Charge Master Analyst Member Role: Primary Care Nurse Care Team Related Persons Name: DINESH SARGENT Address: home [address] [place] [address] Name: BON DE Address: [address] [address]
--- OUTSIDE RECORDS SUMMARY | 2024-06-24 14:12 | XMS_ITS | Continuity of Care Document ---
Author Organization [facility] Address [address] [place] [address]- Care Team Providers Care Direct Care Supervisor Name Role Phone iVvi HENNING, Celestina Givens Primary Care Physician [place] [facility] [place] 01/28/24 - 02/27/24 [facility] [address] [place] [address]- Allergies, Adverse Reactions, Alerts No Known Allergies [...] 08/21/22 Given tetanus/diphtheria/pertussis, acel(Tdap) 7 08/13/12 Given [id number] 12y+ bivalent booster vax 06/14/22 Recorded SARS-CoV-2 mRNA (lijsdyy-mquk-yphls) vax 02/14/22 Recorded SARS-CoV-2 (COVID-19) mRNA BNT-162b2 vac 05/06/21 Given SARS-CoV-2 (COVID-19) mRNA BNT-162b2 vac 11/04/20 Recorded SARS-CoV-2 (COVID-19) mRNA BNT-162b2 vac 10/14/20 Recorded pneumococcal 23-valent vaccine 8 04/07/19 Given 1Result Comment: screening negative 2Result Comment: [facility]# [id number] 3Result Comment: [05/25/2018] [facility] lot number [id number] exp 01/26/2019 [facility] [id number] 4Result Comment: [08/20/2017] [facility] [id number] 5Admin Note: VIM dated 01/29/12 GIVEN TODAY 6Result Comment: [facility]# [id number] 7Admin Note: VIM dated 08/22/11 GIVEN TODAY 8Result Comment: [facility]#[id number] Medications acetaminophen 500 mg oral capsule 2 [...] 1 Refills, Soft Stop, 12/06/23 17:28:00 EDT, [facility]/pharmacy #5, Partial fill upon patient [...] 05/17/23 16:45:00 EDT, Route to Pharmacy Electronically, [facility]/pharmacy #2024, Partial fill upon patient request if the presc... Start Date: 05/17/23 Stop Date: 05/17/24 Status: Ordered diclofenac 1% topical gel See Instructions, APPLY TO AFFECTED AREA 4 TIMES A DAY, # 100 Gm, 1 Refills, Maintenance, 11/07/23 7:48:00 EDT, [facility]/pharmacy #2024, 25, APPLY TO AFFECTED AREA 4 TIMES A DAY, 157.5, cm, 10/18/23 15:15:00 EDT, Height, 145.9, kg, 05/22/23 7:39:00 EDT, . Start Date: 11/07/23 Status: Ordered diclofenac 1% topical gel See Instructions, APPLY TO AFFECTED AREA 4 TIMES A DAY. NOT COVERED, # 100 Gm, 1 Refills, Maintenance, 02/01/24 13:44:00 EDT, [facility], 30, APPLY TO AFFECTED AREA 4 TIMES [...] Gm, 0 Refills, Maintenance, 02/28/21 16:31:00 EDT, [place], [facility]/pharmacy #2025, Partial fill upon patient request if the prescription is for... Start Date: 02/28/21 Status: Ordered FLUoxetine 10 mg oral capsule 1, capsule, By Mouth, Daily, INSTR:TO BE TAKEN WITH 20MG CAPSULES TO EQUAL 30MG DAILY, # 90 capsule, Refills 1, Maintenance, 01/25/24 9:11:00 EDT, Route to Pharmacy Electronically, [facility], 157.5, cm, 01/22/24 10:31:00 EDT, Height, 145.9, kg,... Start Date: 01/25/24 Status: Ordered gabapentin 300 mg oral capsule 600 mg, 2, capsule, By Mouth, 3 times a day, # 180 capsule, Refills 3, Tot. Refills 3, Maintenance,08/25/22 22:35:00 EST, Route to Pharmacy Electronically, [facility]/pharmacy #2024, Partial fill upon patient [...] Refills, Maintenance, 12/28/23 16:17:00 EDT, [facility], 157.5, cm, 10/18/23 15:15:00 EDT, Height, 145.9, kg, 05/22/23 7:39:00 EDT, Dry Weight Start Date: 12/28/23 Status: Ordered meclizine 25 mg oral tablet See Instructions, PRN Dizziness, 1 tablet By Mouth 3 times a day, # 30 tablet, 0 Refills, Maintenance, 02/27/23 10:43:00 EDT, [facility]/pharmacy #2025, Partial fill upon patient [...] tablet, 0 Refills, Maintenance, 11/29/23 15:24:00 EDT, [facility]/pharmacy #2025, 157.5, cm, 10/18/23 1... [...] Code MRI Safety Implantable Status Assigning Authority [id number] Unknown [id number] Unknown 08/26/24 Unknown Unknown Active GS1 Patient Care team information Care Team Personnel Name: Celestina Trinidad MD Position: [facility] Physician - Primary Care Member Role: PCP Address: Address: [address] [place] [address] Name: Hemalatha Lucas RN [facility] Care Nurse Name: Nessa Bonilla RN Position: [facility] Hospital Building Rental Manager Member Role: Primary Care Nurse Care Team Related Persons Name: DINESH SARGENT Address: [address] [address] Name: BON DE Address: home [address] [place] [address]
--- OUTSIDE RECORDS SUMMARY | 2024-06-24 14:12 | XMS_ITS | Continuity of Care Document ---
Author Organization [facility] Address [address] [place] [address]- Care Team Providers Care Authorization Rep Name Role Phone Yolanda AHN, Padmaja Pelayo Primary Care Physician [phone] Encounter [facility] Date(s): 10/21/21 - 11/20/21 [facility] [address] [place] [address]- Allergies, Adverse Reactions, Alerts No Known Allergies [...] tetanus/diphtheria/pertussis, acel(Tdap) 6 08/13/12 Given 1Result Comment: [facility]# [id number] 2Result Comment: [05/25/2018] [facility] lot number [id number] exp 01/26/2019 [facility] [id number] 3Result Comment: [08/20/2017] [facility] [id number] 4Admin Note: VIM dated 01/29/12 GIVEN TODAY 5Result Comment: [facility]#[id number] 6Admin Note: VIM dated 08/22/11 GIVEN TODAY [...] Replace Required Details, Route to Pharmacy Electronically, [id number]... Start Date: 10/28/21 Status: Ordered Aerochamber w/Mask [...] 07/25/21 16:53:00 EST, Route to Pharmacy Electronically, [id number], [facility]/pharmacy #5, 160.02, cm, 07/25/21 16:20:00 EST, Height, [...] Gm, 0 Refills, Maintenance, 02/28/21 16:31:00 EDT, [place], [facility]/pharmacy #2025, Partial fill upon patient request if the prescription is for... Start Date: 02/28/21 Status: Ordered FLUoxetine 10 mg oral capsule 10 mg, 1, capsule, By Mouth, Daily, Take with 20mg capsule for total of 30mg daily, # 90 capsule, Refills 1, Tot. Refills 1, Maintenance, 09/19/21 12:45:00 EST, Route to Pharmacy Electronically, [facility]/pharmacy #202, Partial fill upon patient request if... Start Date: 09/19/21 Status: Ordered FLUoxetine 20 mg oral capsule 20 mg, 1, capsule, By Mouth, Daily, Take with Fluoxetine 10mg for a total of 30mg, # 90 capsule, Refills 1, Tot. Refills 1, Maintenance, 05/04/21 16:44:00 EDT, Route to Pharm[facility]ically, [facility], replacing 10mg dose, 160.02, cm, 08/0... Start Date: 05/04/21 Status: Ordered levothyroxine 0.137 mg oral tablet See Instructions, TAKE 1 TABLET BY MOUTH ON DAYS 1-6, THEN TAKE 2 TABLETS BY MOUTH ON DAY 7, # 96 tablet, 1 Refills, [facility] STORE 22999, 160.02, cm, 10/04/21 10:38:00 EST, Height, 143, kg, 01/04/21 10:42:00 EDT, Dry Weight Start Date: 11/08/21 Status: Ordered meclizine 25 mg oral tablet See Instructions, PRN Dizziness, 1 tablet By Mouth 3 times a day, # 30 tablet, 0 Refills, Maintenance, 05/11/21 13:11:00 EDT, [facility]/pharmacy #2025, Partial [...]
--- OUTSIDE RECORDS SUMMARY | 2024-06-24 14:12 | XMS_ITS | Continuity of Care Document ---
Author Organization [facility] Address [address] [place] [address]- Care Team Providers Care Petroleum Refining Equipment Operator Name Role Phone Yolanda AHN, Pdamaja Heard Primary Care Physician [place] [facility] [place] 04/12/22 - 05/12/22 [facility] [address] [place] [address]- Allergies, Adverse Reactions, Alerts No Known Allergies [...] 08/13/12 Given 1Result Comment: [facility]# [id number] 2Result Comment: [05/25/2018] seq[facility] lot number [id number] exp 01/26/2019 [facility] [id number] 3Result Comment: [08/20/2017] [facility] [id number] 4Admin Note: VIM dated 01/29/12 GIVEN TODAY 5Result Comment: [facility]#[id number] 6Admin Note: VIM dated 08/22/11 GIVEN TODAY [...] Stop, 04/10/2215:14:00 EDT, Route to Pharmacy Electronically, [id number], [facility]/pharmacy #2025, 158, cm, 04/10/22 14:56:00 EDT, Height, 143,... Start Date: 04/10/22 Status: Ordered Anoro Ellipta 62.5 mcg-25 mcg/inh inhalation powder 1 puffs, By Mouth, Daily, # 1 each, 6 Refills, Maintenance, 05/11/22 13:00:00 EDT, [place], [facility], Partial fill upon patient request if the prescription is for a schedule II opioid drug., 1puffs By Mouth Daily,x30 days, 158, cm, 05/08/22 11... Start Date: 05/11/22 Stop Date: 12/07/22 Status: Ordered Compression Stockings See Instructions, # 2 each, Refills 2, Tot. Refills 2, Maintenance, surgical, calf length 20-30 mm Hg Dx: venous insufficiency, 11/26/19 14:34:00 EDT, Compound Start Date: 11/26/19 Status: Ordered diclofenac 1% topical gel See Instructions, APPLY TOPICALLY 4 TIMES A DAY, # 100 Gm, 1 Refills, 09/19/21 12:51:00 EST, [facility]/pharmacy #2024, 25, APPLY TOPICALLY 4 TIMES A DAY, 160.02, cm, 07/25/21 16:20:00 EST, Height, 143, kg,01/04/21 10:42:00 EDT, Dry Weight Start Date: 09/19/21 Status: Ordered Flonase 50 mcg/inh nasal spray See Instructions, 2 sprays Nares twice daily x 1 week, then once daily x 1-2 weeks until symptoms improve, # 16 Gm, 0 Refills, Maintenance, 02/28/21 16:31:00 EDT, [place], [facility]/pharmacy #2024, Partial fill upon patient request if the prescription is for... Start Date: 02/28/21 Status: Ordered FLUoxetine 10 mg oral capsule 10 mg, 1, capsule, By Mouth, Daily, Take with 20mg capsule for total of 30mg daily, # 90 capsule, Refills 1, Tot. Refills 1, Maintenance, 04/11/22 14:55:00 EDT, Route to Pharmacy Electronically, [facility], Partial fill upon patient request if t... Start Date: 04/11/22 Status: Ordered levothyroxine 0.137 mg oral tablet See Instructions, TAKE 1 TABLET BY MOUTH ON DAYS 1-6, THEN TAKE 2 TABLETS BY MOUTH ON DAY 7, # 96 tablet, 1 Refills, [facility] STORE 75138, 160.02, cm, 10/04/21 10:38:00 EST, Height, 143, [...] 06/16/22 16:47:00 EST, 04/10/22 16:47:00 EDT, [facility]t, [facility] Start Date: 04/10/22 Stop Date: 06/16/22 Status: Ordered meclizine 25 mg oral tablet See Instructions, PRN Dizziness, 1 tablet By Mouth 3 times a day, # 30 tablet, 0 Refills, Maintenance, 05/11/21 13:11:00 EDT, [facility]/pharmacy #2024, Partial fill upon patient request if the prescriptionis for a schedule II opioid drug., 160.02, cm, 100... Start Date: 05/11/21 Status: Ordered meloxicam 15 mg oral tablet See Instructions, TAKE 1 TABLET BY MOUTH DAILY WITH FOOD, # 30 tablet, 0 Refills, Maintenance, 05/11/22 18:51:00 EDT, [facility], Labs needed for further refills., 158, cm, 05/08/22 11:49:00 EDT, Height, 143, kg, 01/04/21 10:42:00 EDT, Dry Weight Start Date: 05/11/22 Status: Ordered Splint See Instructions, # 1 each, Maintenance, left wrist short cock-up splint, 01/08/20 14:28:00 EDT, Supply Start Date: 01/08/20 Status: Ordered traMADol 50 mg oral tablet See Instructions, 2 tab po qam and one tab po q pm prn moderate to severe pain, # 81 tablet, 0 Refills, Maintenance, 05/11/22 18:51:00 EDT, [facility], 158, cm, 05/08/22 11:49:00 EDT, Height, 143, kg, 01/04/21 10:42:00 EDT, Dry Weight Start Date: 05/11/22 Status: Ordered zolpidem 10 mg oral tablet 1 tablet = 10 mg, By Mouth, Daily at bedtime, PRN for sleep, for 30 days, masspat check may fill less, # 30 tablet, 2 Refills, Acute 07/19/22 9:22:00 EST, 04/20/22 9:22:00 EDT, Tablet, [facility], 158, cm, 04/10/22 14:56:00 EDT, Height, [...] Sex Patient Care team information Personnel Name: Yolanda AHN, Padmaja Heard Address: Address: [address] [place] [address] [place], [place] [address]
--- OUTSIDE RECORDS SUMMARY | 2024-06-24 14:12 | XMS_ITS | Continuity of Care Document ---
Author Organization [facility] Address [address] [place] [address]- Care Team Providers Care Burglar Alarm Superintendent Name Role Phone Celestina Trinidad MD Primary Care Physician [place] [facility] [place]23 [facility] [address] [place] [address]- Allergies, Adverse Reactions, Alerts No Known Allergies [...] 08/21/22 Given tetanus/diphtheria/pertussis, acel(Tdap) 7 08/13/12 Given [id number] 12y+ bivalent booster vax 06/14/22 Recorded SARS-CoV-2 mRNA (lnawrnx-sahd-avxoo) vax 02/14/22 Recorded SARS-CoV-2 (COVID-19) mRNA BNT-162b2 vac 05/06/21 Given SARS-CoV-2 (COVID-19) mRNA BNT-162b2 vac 11/04/20 Recorded SARS-CoV-2 (COVID-19) mRNA BNT-162b2 vac 10/14/20 Recorded pneumococcal 23-valent vaccine 8 04/07/19 Given 1Result Comment: screening negative 2Result Comment: [facility]# [id number] 3Result Comment: [05/25/2018] seqirus lot number [id number] exp 01/26/2019 [facility] [id number] 4Result Comment: [08/20/2017] [facility] [id number] 5Admin Note: VIM dated 01/29/12 GIVEN TODAY 6Result Comment: [facility]# [id number] 7Admin Note: VIM dated 08/22/11 GIVEN TODAY 8Result Comment: [facility]#[id number] Medications acetaminophen 500 mg oral capsule 2 [...] 05/17/23 16:45:00 EDT, Route to Pharmacy Electronically, [facility]/pharmacy #2024, Partial fill upon patient request if the presc... Start Date: 05/17/23 Stop Date: 05/17/24 Status: Ordered diclofenac 1% topical gel See Instructions, APPLY TO AFFECTED AREA 4 TIMES A DAY, # 100 Gm, 1 Refills, Maintenance, 11/07/23 7:48:00 EDT, [facility]/pharmacy #2024, 25, APPLY TO AFFECTED AREA 4 [...] Gm, 0 Refills, Maintenance, 02/28/21 16:31:00 EDT, [place], [facility], Partial fill upon patient request [...] 07/31/23 19:01:00 EST, Route to Pharmacy Electronically, [facility]/pharmacy #2024, 157.5, cm, 07/13/23 9:57:00 EST, Height, 145.9, kg, 05/22/23 7:39:00 EDT, Dry Weight Start Date: 07/31/23 Status: Ordered gabapentin 300 mg oral capsule 600 mg, 2, capsule, By Mouth, 3 times a day, # 180 capsule, Refills 3, Tot. Refills 3, Maintenance,08/25/22 22:35:00 EST, [facility] fill upon patient request if [...] tablet, 0 Refills, Maintenance, 10/12/23 6:42:00 EDT, [facility]/pharmacy #2024, 157.5, cm, 07/13/23 9:57:00 EST, Height, 145.9, kg, 05/22/23 7:39:00 EDT, Dry Weight Start Date: 10/12/23 Status: Ordered meclizine 25 mg oral tablet See Instructions, PRN Dizziness, 1 tablet By Mouth 3 times a day, # 30 tablet, 0 Refills, Maintenance, 02/27/23 10:43:00 EDT, [facility]/pharmacy #2024, Partial fill upon patient request if the prescriptionis for a schedule II opioid drug., 157, cm, ... Start Date: 02/27/23 Status: Ordered meloxicam 15 mg oral tablet See Instructions, TAKE 1 TABLET BY MOUTH DAILY WITH FOOD., # 30 tablet, 5 Refills, Maintenance, 10/08/23 17:05:00 EDT, [facility]/pharmacy #2024, 157.5, cm, 07/13/23 9:57:00 EST, Height, 145.9, kg, :39:00 EDT, Dry Weight Start Date: 10/08/23 Status: Ordered metFORMIN 500 mg oral tablet, extended release 1 tablet = 500 mg, By Mouth, Daily, # 90 tablet, 1 Refills, Maintenance, 10/24/23 11:39:00 EDT, ER Tablet, [facility]/pharmacy #2024, Partial fill upon [...] 1 Refills, Maintenance, 07/15/23 17:38:00 EST, Capsule, [facility]/pharmacy #2024, Partial fill upon patient request if the prescription is for a schedule II opioid drug., 157.5, cm, 07/13/23 9:57:00 EST, He... Start Date: 07/15/23 Status: Ordered zolpidem 10 mg oral tablet 1 tablet = 10 mg, By Mouth, Daily at bedtime, # 30 tablet, 0 Refills, Maintenance, 11/05/23 16:28:00 EDT, [facility]/pharmacy #2025, Partial fill [...] Code MRI Safety Implantable Status Assigning Authority [id number] Unknown [id number] Unknown 08/26/24 Unknown Unknown Active GS1 Patient Care team information Care Team Personnel Name: Celestina Trinidad MD Position: S Physician - Primary Care Member Role: PCP Address: Address: [address] [place] [address] Name: Hemalatha Lucas RN Position: [facility] RN Member Role: Primary Care Nurse Name: Lauren Mack RN Position: [facility] AMB Nurse Member Role: Primary Care Nurse Name: Madelaine Ruiz RN Position: [facility] RN Member Role: Primary Care Nurse Name: Lora Santiago RN Position: [facility] SN RN Member Role: Primary Care Nurse Name: Mayco Ro RN Position: [facility] RN Member Role: Primary Care Nurse Name: Heydi Potts RN Position: [facility] SN RN Member Role: Primary Care Nurse Name: Janice Romano LPN Position: [facility] RN Member Role: Primary Care Nurse Name: Nadya Low RN Position: [facility] RN Member Role: Primary Care Nurse Name: Mirna Greenfield RN Position: [facility] RN Member Role: Primary Care Nurse Name: Nessa Bonilla RN Position: [facility] Furniture Rental Consultant Member Role: Primary Care Nurse Care Team Related Persons Name: DINESH SARGENT Address: home [address] [place] [address] Name: BON DE Address: home [address] [place] [address]
--- OUTSIDE RECORDS SUMMARY | 2024-06-24 14:12 | XMS_ITS | Continuity of Care Document ---
Author Organization [facility] Address [address] [place] [address]- Care Team Providers Care Hostler Helper Name Role Phone Yolanda AHN, Padmaja Pelayo Primary Care Physician Encounter [facility] Date(s): 09/20/21 - 10/20/21 [facility] [address] [place] [address]- Allergies, Adverse Reactions, Alerts No Known Allergies [...] acel(Tdap) 6 08/13/12 Given 1Result Comment: [facility]# [id number] 2Result Comment: [05/25/2018] [employer] lot number [id number] exp 01/26/[address] [facility] [id number] 3Result Comment: [08/20/2017] [facility] [id number] 4Admin Note: VIM dated 01/29/12 GIVEN TODAY 5Result Comment: [facility]#[id number] 6Admin Note: VIM dated 08/22/11 GIVEN TODAY [...] each, Refills 5, Tot. Refills 5, Maintenance, 09/15/21 8:01:00 EST, Instructions Replace Required Details, Route to Pharmacy Electronically, [id number]... Start Date: 09/15/21 Status: Ordered Aerochamber w/Mask (Medium) See Instructions, [...] 07/25/21 16:53:00 EST, Route to Pharmacy Electronically, [id number], [facility]/pharmacy #2025, 160.02, cm, 07/25/21 16:20:00 EST, Height, [...] Gm, 0 Refills, Maintenance, 02/28/21 16:31:00 EDT, [place], [facility]/pharmacy #2024, Partial fill upon patient request if the prescription is for... Start Date: 02/28/21 Status: Ordered FLUoxetine 10 mg oral capsule 10 mg, 1, capsule, By Mouth, Daily, Take with 20mg capsule for total of 30mg daily, # 90 capsule, Refills 1, Tot. Refills 1, Maintenance, 09/19/21 12:45:00 EST, Route to Pharmacy Electronically, [facility]/pharmacy #2024, Partial fill upon patient request if... Start Date: 09/19/21 Status: Ordered FLUoxetine 20 mg oral capsule 20 mg, 1, capsule, By Mouth, Daily, Take with Fluoxetine 10mg for a total of 30mg, # 90 capsule, Refills 1, Tot. Refills 1, Maintenance, 05/04/21 16:44:00 EDT, Route to Pharmacy Electronically, [facility]/pharmacy #202, replacing 10mg dose, 160.02, cm, 08/0... Start Date: 05/04/21 Status: Ordered levothyroxine 0.137 mg oral tablet See Instructions, Take 1 tablet by mouth on days 1-6, then take 2 tablets by mouth on day 7, # 121 tablet, 5 Refills, Maintenance, 12/07/20 9:46:00 EDT, [facility]/pharmacy #202, 160.02, cm, 10/19/20 11:04:00 EDT, Height, 156.81, kg, 10/19/20 11:04:00 EDT,... Start Date: 12/07/20 Status: Ordered meclizine 25 mg oral tablet See Instructions, PRN Dizziness, 1 tablet By Mouth 3 times a day, # 30 tablet, 0 Refills, Maintenance, 05/11/21 13:11:00 EDT, [facility]/pharmacy #202, Partial fill upon patient request if the prescriptionis for a schedule II opioid drug., 160.02, cm, 10/0... Start Date: 05/11/21 Status: Ordered meloxicam 15 mg oral tablet 1 tablet, By Mouth, Daily, WITH FOOD., # 30 tablet, 3 Refills, 09/19/21 12:46:00 EST, [facility]/pharmacy #2025, 160.02, cm, 07/25/21 16:20:00 EST, Height, 143, kg, 01/04/21 10:42:00 EDT, Dry Weight Start Date: 09/19/21 Status: Ordered Splint See Instructions, # 1 each, Maintenance, left wrist short cock-up splint, 01/08/20 14:28:00 EDT, Supply Start Date: 01/08/20 Status: Ordered Symbicort 160mcg/4.5mcg Inhaler 2, puffs, Inhalation, 2 times a day, # 10.2 Gm, Refills 0, Tot. Refills 0, Maintenance, 10/03/21 13:47:00 EST, Aerosol, Route to Pharmacy Electronically, [id number], [facility]/pharmacy #2024, 160.02, cm, 07/25/21 16:20:00 EST, [place]... Start Date: 10/03/21 Status: Ordered traMADol 50 mg oral tablet 2 tablet = 100 mg, By Mouth, Every 12 hours, as needed for pain masspat checked, # 112 tablet, 0 Refills, Maintenance, 09/20/21 10:55:00 EST, [facility]/pharmacy #5, 160.02, cm, 07/25/21 16:20:00 EST, Height, 143, kg, 01/04/21 10:42:00 EDT, Dry Weight Start Date: 09/20/21 Stop Date: 10/18/21 Status: Ordered zolpidem 10 mg oral tablet 1 tablet = 10 mg, By Mouth, Daily at bedtime, PRN for sleep, for 30 days, masspat check may fill less, # 30 tablet, 3 Refills, Acute 01/20/22 10:19:00 EDT, 09/22/21 10:19:00 EST, Tablet, [facility]/pharmacy#5, 160.02, cm, 07/25/21 16:20:00 EST, Height,... Start [...]
--- OUTSIDE RECORDS SUMMARY | 2024-06-24 14:12 | XMS_ITS | Continuity of Care Document ---
Author Organization [facility] Address [address] [place] [address]- Care Team Providers Care Head Sampler Name Role Phone Vivi HENNING, Celestina Givens Primary Care Physician Encounter [facility] Date(s): 05/22/24 - 06/21/24 [facility] [address] [place] [address]- Encounter Type: Triage Allergies, Adverse Reactions, Alerts No Known Allergies [...] 08/21/22 Given tetanus/diphtheria/pertussis, acel(Tdap) 7 08/13/12 Given EUUD-GgG-1qLDN 12y+ bivalent booster vax 06/14/22 Recorded SARS-CoV-2 mRNA (yucouna-[id number]-gzggw) vax 02/14/22 Recorded SARS-CoV-2 (COVID-19) mRNA BNT-162b2 vac 05/06/21 Given SARS-CoV-2 (COVID-19) mRNA BNT-162b2 vac 11/04/20 Recorded SARS-CoV-2 (COVID-19) mRNA BNT-162b2 vac 10/14/20 Recorded pneumococcal 23-valent vaccine 8 04/07/19 Given 1Result Comment: screening negative 2Result Comment: [facility]# [id number] 3Result Comment: [05/25/2018] seqirus lot number [id number] exp 01/26/2019 [facility] [id number] 4Result Comment: [08/20/2017] [facility] [phone] 5Admin Note: VIM dated 01/29/12 GIVEN TODAY 6Result Comment: [facility]# [id number] 7Admin Note: VIM dated 08/22/11 GIVEN TODAY 8Result Comment: [facility]#[id number] Medications acetaminophen 500 mg oral capsule 2 capsule = 1,000 mg, By Mouth, 2 times a day, 0 Refills, Maintenance, 07/25/21 4:23:00 PM EST, Partial fill upon patient request if the prescription is for a schedule II opioid drug. Start Date: 07/25/21 Status: Ordered Repeat number: 1 Aerochamber w/Mask (Medium) See Instructions, # 1 each, Maintenance, Use as directed with albuterol inhaler. Asthma ICD 10 codeJ45.909, 06/13/24 11:42:00 AM EST, Compound, 157.5, cm, 02/12/24 14:48:00 EDT, Height, 145.9, kg, 05/22/23 7:39:00 EDT, Dry Weight Start Date: 06/13/24 Status: Ordered Quantity: 1.0 Unit: each Repeat number: 1 amoxicillin 500 mg oral tablet 4 tablet = 2,000 mg, By Mouth, Once, Prior to dental work, # 4 tablet, 1 Refills, Soft Stop, :28:00 PM EDT, [facility], Partial fill upon patient request if the prescription is for a schedule II opioid drug., 157.5, cm, 10/18/23 15:15:00 EDT, Height, 145.9, kg, 05/22/23 7:39:00 EDT,Dry Weight Start Date: 12/06/23 Status: Ordered Quantity: 4.0 Unit: tablet Repeat number: 2 cilostazol 100 mg oral tablet 60 each, 0 Refill(s), TAKE 1 TABLET BY MOUTH TWICE A DAY, 0 Refills, 03/14/23 10:59:00 AM EDT, Partial fill upon patient request if the prescription is for a schedule II opioid drug. Start Date: 03/14/23 Status: Ordered Repeat number: 1 Compression Stockings See Instructions, # 2 each, Refills 2, Tot. Refills 2, Maintenance, surgical, calf length 20-30 mm Hg Dx: venous insufficiency, 07/01/22 6:53:00 AM EST, Compound, 158, cm, 06/09/22 11:21:00 EST, Height, 143, kg, 01/04/21 10:42:00 EDT, Dry Weight Start Date: 07/01/22 Status: Ordered Quantity: 2.0 Unit: each Repeat number: 3 Compression Stockings See Instructions, # 3 each, Maintenance, surgical, calf length 20-30 mm Hg Venous insufficiency. (187.2), 10/30/22 4:07:00 PM EDT, Venous insufficiency. (187.2), Supply Start Date: 10/30/22 Status: Ordered Quantity: 3.0 Unit: each Repeat number: 1 cyclobenzaprine 10 mg oral tablet 10 mg, 1, tablet, By Mouth, 3 times a day, PRN, # 30 tablet, Refills 0, Tot. Refills 0, Maintenance, for spasm, 05/17/24 4:46:00 PM EDT, Route to Pharmacy Electronically, [facility]/pharmacy #[id number], Partial fill upon patient request if the prescription is for a schedule II opioid drug., 157.5, cm, 02/11/2414:48:00 EDT, Height, 145.9, kg, 05/22/23 7:39:00 EDT, Dry Weight Start Date: 05/17/24 Status: Ordered Quantity: 30.0 Unit: tablet Repeat number: 1 diclofenac 1% topical gel See Instructions, APPLY TO AFFECTED AREA 4 TIMES A DAY. NOT COVERED, # 100 Gm, 1 Refills, Maintenance, 04/22/24 3:15:00 PM EDT, [facility]/pharmacy #2024, 30, APPLY TO AFFECTED AREA 4 TIMES A DAY. NOT COVERED, 157.5, cm, 02/12/24 14:48:00 EDT, Height, 145.9, kg, 05/22/23 7:39:00 EDT, Dry Weight Start Date: 04/22/24 Status: Ordered Quantity: 100.0 Unit: g Repeat number: 2 diclofenac 1% topical gel See Instructions, APPLY TO AFFECTED AREA 4 TIMES A DAY, # 100 Gm, 1 Refills, Maintenance, 11/07/23 7:48:00 AM EDT, [facility]/pharmacy #2024, 25, APPLY TO AFFECTED AREA 4 TIMES A DAY, 157.5, cm, 10/18/23 15:15:00 EDT, Height, 145.9, kg, 05/22/23 7:39:00 EDT, Dry Weight Start Date: 11/07/23 Status: Ordered Quantity: 100.0 Unit: g Repeat number: 2 Dulera 50 mcg-5 mcg/inh inhalation aerosol 2 puffs, Inhalation, 2 times a day, PRN Other, as needed for cough, wheezing, or shortness of breath; may use up to 4 times daily for up to 1 week due to acute symptoms but notify prescriber if needing longer. Rinse mouth and throat after use., # 13 Gm, 11 Refills, Maintenance, 08/29/23 5:07:00 PM EST, Aerosol, [facility]/pharmacy #2024, Partial fill upon patient request if the prescription is for a schedule II opioid drug., 2 puffs Inhalation 2 times a day,PRN:Other,Instr:as needed for cough, wheezing, or shortness of breath; may use up to 4 times daily for up to 1 week due to acute symptoms but notify prescriber if needing longer. Rinse mouth and throat after use., 157.5, cm, 07/13/23 9:57:00 EST, Height, 145.9, kg, 05/22/23 7:39:00 EDT, Dry Weight Start Date: 08/29/23 Status: Ordered Quantity: 13.0 Unit: g Repeat number: 12 Indication: Mild persistent asthma, uncomplicated Flonase 50 mcg/inh nasal spray See Instructions, 2 sprays Nares twice daily x 1 week, then once daily x 1-2 weeks until symptoms improve, # 16 Gm, 0 Refills, Maintenance, 02/28/21 4:31:00 PM EDT, [place], [facility]/pharmacy #2025, Partial fill upon patient request if the prescription is for a schedule II opioid drug., 2 sprays Nares twicedaily x 1 week, then once daily x 1-2 weeks until symptoms improve, 160.02, cm, 02/28/21 15:45:00 EDT, Height, 143, kg, 01/04/21 10:42:00 EDT, Dry Weight Start Date: 02/28/21 Status: Ordered Quantity: 16.0 Unit: g Repeat number: 1 Indication: Unspecified nonsuppurative otitis media, unspecified ear FLUoxetine 10 mg oral capsule 1, capsule, By Mouth, Daily, INSTR:TO BE TAKEN WITH 20MG CAPSULES TO EQUAL 30MG DAILY, # 90 capsule, Refills 1, Maintenance, 01/25/24 9:11:00 AM EDT, Route to Pharmacy Electronically, [facility]ORE [id number],157.5, cm, 01/22/24 10:31:00 EDT, Height, 145.9, kg, 05/22/23 7:39:00 EDT, Dry Weight Start Date: 01/25/24 Status: Ordered Quantity: 90.0 Unit: capsule Repeat number: 1 FLUoxetine 20 mg oral capsule See Instructions, TAKE 1 CAPSULE BY MOUTH EVERY DAY, # 90 capsule, Refills 1, Maintenance, 06/20/2411:48:00 AM EST, Instructions Replace Required Details, Route to Pharmacy Electronically, [facility] [id number], 157.5, cm, 06/16/24 14:53:00 EST, Height, 145.9, kg, 05/22/23 7:39:00 EDT, Dry Weight Start Date: 06/20/24 Status: Ordered Quantity: 90.0 Unit: capsule Repeat number: 1 gabapentin 300 mg oral capsule 600 mg, 2, capsule, By Mouth, 3 times a day, # 180 capsule, Refills 3, Tot. Refills 3, Maintenance,08/25/22 10:35:00 PM EST, Route to Pharmacy Electronically, [facility]/pharmacy #202, Partial fill upon patient request if the prescription is for a schedule II opioid drug., 159, cm, 08/25/22 11:55:00 EST, Height, 143, kg, 01/04/21 10:42:00 EDT, Dry Weight Start Date: 08/25/22 Status: Ordered Quantity: 180.0 Unit: capsule Repeat number: 4 Home Blood Pressure Monitor See Instructions, # 1 each, Maintenance, use to check pressure daily, 10/24/22 11:58:00 AM EDT, Please ensure available cuff will fit pt's arm or wrist, Supply Start Date: 10/24/22 Status: Ordered Quantity: 1.0 Unit: each Repeat number: 1 levothyroxine 150 mcg (0.15 mg) oral tablet 1 tablet, By Mouth, Daily, # 90 tablet, 1 Refills, Maintenance, 12/28/23 4:17:00 PM EDT, [id number], 157.5, cm, 10/18/23 15:15:00 EDT, Height, 145.9, kg, 05/22/23 7:39:00 EDT, Dry Weight Start Date: 12/28/23 Status: Ordered Quantity: 90.0 Unit: tablet Repeat number: 1 levothyroxine 175 mcg (0.175 mg) oral tablet 1 tablet = 175 mcg, By Mouth, Daily, # 90 tablet, 2 Refills, Maintenance, 06/17/24 1:48:00 PM EST, Tablet, [facility]/pharmacy #2025, Partial fill upon patient request if the prescription is for a schedule II opioid drug., 157.5, cm, 06/16/24 14:53:00 EST, Height, 145.9, kg, 05/22/23 7:39:00 EDT, Dry Weight Start Date: 06/17/24 Status: Ordered Quantity: 90.0 Unit: tablet Repeat number: 3 meclizine 25 mg oral tablet See Instructions, PRN Dizziness, 1 tablet By Mouth 3 times a day, # 30 tablet, 0 Refills, Maintenance, 02/27/23 10:43:00 AM EDT, [facility], Partial fill upon patient request if the prescription is for a schedule II opioid drug., 157, cm, 12/08/22 14:27:00 EDT, Height, 145, kg, 08/29/22 20:13:00 EST, Dry Weight Start Date: 02/27/23 Status: Ordered Quantity: 30.0 Unit: tablet Repeat number: 1 meloxicam 15 mg oral tablet See Instructions, TAKE 1 TABLET BY MOUTH DAILY WITH FOOD., # 30 tablet, 1 Refills, Maintenance, 03/28/24 7:37:00 AM EDT, [facility]/pharmacy #2024, 157.5, cm, 02/12/24 14:48:00 EDT, Height, 145.9, kg, 05/22/23 7:39:00 EDT, Dry Weight Start Date: 03/28/24 Status: Ordered Quantity: 30.0 Unit: tablet Repeat number: 2 metFORMIN 500 mg oral tablet, extended release 1 tablet = 500 mg, By Mouth, Daily, # 90 tablet, 1 Refills, Maintenance, 01/22/24 11:02:00 AM EDT, ER Tablet, [facility]/pharmacy #2024, Partial fill upon patient request if the prescription is for a schedule II opioid drug., 157.5, cm, 01/22/24 10:31:00 EDT, Height, 145.9, kg, 05/22/23 7:39:00 EDT, Dry Weight Start Date: 01/22/24 Status: Ordered Quantity: 90.0 Unit: tablet Repeat number: 2 oxyCODONE 5 mg oral tablet 5 mg, 1, tablet, By Mouth, Every 4 hours, PRN, you may filll this prescription for fewer pills. [facility] reviewed, # 20 tablet, Refills 0, Tot. Refills 0, Maintenance, Pain , Severe, 05/28/24 4:27:00 PM EDT, Route to Pharmacy Electronically, [facility]/pharmacy #2024, Partial fill upon patient request, 157.5, cm, 02/12/24 14:48:00 EDT, Height, 145.9, kg, 05/22/23 7:39:00 EDT, Dry Weight Start Date: 05/28/24 Status: Ordered Quantity: 20.0 Unit: tablet Repeat number: 1 ROLLATOR WALKER with seat and wheels, HEAVY DUTY ROLLATOR WALKER with seat and wheels, HEAVY DUTY, See Instructions, # 1 each, Refills 0, Tot. Refills 0, Maintenance, use as directed. Diagnosis: osteoarthritis, Sacroiliiac dysfunction, sciatica, 02/22/24 8:47:00 AM EDT, Supply Start Date: 02/22/24 Status: Ordered Quantity: 1.0 Unit: each Repeat number: 1 Rollator wheeled walker with seat Rollator wheeled walker with seat, See Instructions, # 1 each, Refills 0, Tot. Refills 0, Maintenance, DX: Sacroiliac pain, 02/12/24 3:46:00 PM EDT, Supply Start Date: 02/12/24 Status: Ordered Quantity: 1.0 Unit: each Repeat number: 1 Splint See Instructions, # 1 each, Maintenance, left wrist short cock-up splint, 01/08/20 2:28:00 PM EDT, Supply Start Date: 01/08/20 Status: Ordered Quantity: 1.0 Unit: each Repeat number: 1 Indication: Pain in left wrist traMADol 50 mg oral tablet 1 tablet = 50 mg, By Mouth, Every 4 hours, PRN for pain, max 5 tabs per day, # 140 tablet, 0 Refills, Maintenance, 06/10/24 2:39:00 PM EST, Tablet, [facility], Partial fill upon patient request if the prescription is for a schedule II opioid drug., 157.5, cm, 02/12/24 14:48:00 EDT, Height, 145.9, kg, 05/22/23 7:39:00 EDT, Dry Weight Start Date: 06/10/24 Status: Ordered Quantity: 140.0 Unit: tablet Repeat number: 1 traMADol 50 mg oral tablet See Instructions, Take 2 tablets (100 mg) in the morning, 1 tab (50 mg) in afternoon,. and 1 tab (50 mg) at bedtime. Total of 4 tabs (200 mg) daily., # 81 tablet, 0 Refills, Maintenance, 11/29/23 3:24:00 PM EDT, [facility], 157.5, cm, 10/18/23 15:15:00 EDT, Height, 145.9, kg, 05/22/23 7:39:00EDT, Dry Weight Start Date: 11/29/23 Status: Ordered Quantity: 81.0 Unit: tablet Repeat number: 1 Vitamin D3 2000 intl units oral capsule 2 capsule = 100 mcg, By Mouth, Daily, # 180 capsule, 1 Refills, Maintenance, 11/23/23 5:40:00 PM EDT, Capsule, [facility], Partial fill upon patient request if the prescription is for a schedule II opioid drug., 157.5, cm, 10/18/23 15:15:00 EDT, Height, 145.9, kg, 05/22/23 7:39:00 EDT, Dry Weight Start Date: 11/23/23 Status: Ordered Quantity: 180.0 Unit: capsule Repeat number: 2 zolpidem 10 mg oral tablet 1 tablet = 10 mg, By Mouth, Daily at bedtime, # 30 tablet, 0 Refills, Maintenance, 06/10/24 2:39:00PM [facility], [facility]/pharmacy #2024, Partial fill upon patient request if the prescription is for a scheduleII opioid drug., 157.5, cm, 02/12/24 14:48:00 EDT, Height, 145.9, kg, 05/22/23 7:39:00 EDT, Dry Weight Start Date: 06/10/24 Status: Ordered Quantity: 30.0 Unit: tablet Repeat number: 1 Problem List Condition Confirmation Course Effective Dates [...] x 25 years; entered on: 11/14/21 Sex Sex Representation Female (finding) Implantable Device List Procedure Provider Procedure Date Device Type Site Repair Hernia Umbilical Laparoscopic Emily HENNING, Yasemin 05/22/23 Unknown Umbilicus Device Identifier Serial Number Lot or Batch Number Manufacturing Date Expiration Date Distinct Identification Code MRI Safety Implantable Status Assigning Authority [id number] Unknown [id number] Unknown 08/26/24 Unknown Unknown Active GS1 Patient Care team information Care Team Personnel Name: Celestina Trinidad MD Position: [facility] Physician - Primary Care Member Role: PCP Address: [address] [place] [id number] Telecom: Name: Hemalatha Lucas RN [facility] [...] Nessa Bonilla RN Position: [facility] Supply Clerk Member Role: Primary Care Nurse Care Team Related Persons Name: DINESH SARGENT Name: BON DE Insurance Providers Guarantor name: JORGE ALBERTO SAHU Health Plan Information #: 1 Payer: MEDICARE PART B OUTPT Member Number: NA Policy Number: NA Group Number: NA Health Plan Information #: 2 Payer: [place] Member Number: NA Policy Number: NA Group Number: NA
--- OUTSIDE RECORDS SUMMARY | 2024-06-24 14:12 | XMS_ITS | Continuity of Care Document ---
Author Organization [facility] Address [address] [place] [address]- Care Team Providers Care Programmer Numerical Control Name Role Phone Vivi HENNING, Celestina Givens Primary Care Physician Encounter [facility] Date(s): 11/29/23 - 12/29/23 [facility] [address] [place] [address]- Allergies, Adverse Reactions, Alerts No Known Allergies [...] 08/21/22 Given tetanus/diphtheria/pertussis, acel(Tdap) 7 08/13/12 Given AVHR-AcF-1uLTU 12y+ bivalent booster vax 06/14/22 Recorded SARS-CoV-2 mRNA (qcbshsp-swdr-syoec) vax 02/14/22 Recorded SARS-CoV-2 (COVID-19) mRNA BNT-162b2 vac 05/06/21 Given SARS-CoV-2 (COVID-19) mRNA BNT-162b2 vac 11/04/20 Recorded SARS-CoV-2 (COVID-19) mRNA BNT-162b2 vac 10/14/20 Recorded pneumococcal 23-valent vaccine 8 04/07/19 Given 1Result Comment: screening negative 2Result Comment: [facility]# [id number] 3Result Comment: [05/25/2018] seqirus lot number [id number] exp 01/26/2019 [facility] [id number] 4Result Comment: [08/20/2017] [facility] [id number] 5Admin Note: VIM dated 01/29/12 GIVEN TODAY 6Result Comment: [facility]# [id number] 7Admin Note: VIM dated 08/22/11 GIVEN TODAY 8Result Comment: [facility]#[id number] Medications acetaminophen 500 mg oral capsule 2 [...] 1 Refills, Soft Stop, 12/06/23 17:28:00 EDT, [facility]/pharmacy #5, Partial fill upon patient request [...] 05/17/23 16:45:00 EDT, Route to Pharmacy Electronically, [facility]/pharmacy #2024, Partial fill upon patient request if the presc... Start Date: 05/17/23 Stop Date: 05/17/24 Status: Ordered diclofenac 1% topical gel See Instructions, APPLY TO AFFECTED AREA 4 TIMES A DAY, # 100 Gm, 1 Refills, Maintenance, 11/07/23 7:48:00 EDT, [facility]/pharmacy #2024, 25, APPLY TO AFFECTED AREA [...] Gm, 0 Refills, Maintenance, 02/28/21 16:31:00 EDT, [place], [facility]/pharmacy #2024, Partial fill upon patient request if the prescription is for... Start Date: 02/28/21 Status: Ordered FLUoxetine 10 mg oral capsule 10 mg, 1, capsule, By Mouth, Daily, to be taken with 20mg capsules to equal 30mg daily, # 90 capsule, Refills 1, Tot. Refills 1, Maintenance, 07/31/23 19:01:00 EST, Route to Pharmacy Electronically, [facility]/pharmacy #2024, Partial fill upon patient reques... Start Date: 07/31/23 Status: Ordered FLUoxetine 20 mg oral capsule 1, capsule, By Mouth, Daily, # 90 capsule, Refills 1, Tot. Refills 1, Maintenance, 07/31/23 19:01:00 EST, Route to Pharmacy Electronically, [facility]/pharmacy #2024, 157.5, cm, 07/13/23 9:57:00 EST, Height, 145.9, kg, 05/22/23 7:39:00 EDT, Dry Weight Start Date: 07/31/23 Status: Ordered gabapentin 300 mg oral capsule 600 mg, 2, capsule, By Mouth, 3 times a day, # 180 capsule, Refills 3, Tot. Refills 3, Maintenance,08/25/22 22:35:00 EST, Route to Pharmacy Electronically, [facility]/pharmacy #2024, Partial fill upon patient request [...] tablet, 1 Refills, Maintenance, 12/28/23 16:17:00 EDT, [facility]ORE [id number], 157.5, cm, 10/18/23 15:15:00 EDT, Height, 145.9, kg, 05/22/23 7:39:00 EDT, Dry Weight Start Date: 12/28/23 Status: Ordered meclizine 25 mg oral tablet See Instructions, PRN Dizziness, 1 tablet By Mouth 3 times a day, # 30 tablet, 0 Refills, Maintenance, 02/27/23 10:43:00 EDT, [facility]/pharmacy #2025, Partial fill upon patient request [...] Refills, Maintenance, 10/24/23 11:39:00 EDT, ER Tablet, [facility]/pharmacy #2025, Partial fill upon patient request [...] Code MRI Safety Implantable Status Assigning Authority [id number] Unknown [id number] Unknown 08/26/24 Unknown Unknown Active GS1 Patient Care team information Care Team Personnel Name: Celestina Trinidad MD Position: [facility] Physician - Primary Care Member Role: PCP Address: Address: [address] [place] [address] Name: Hemalatha Lucas RN Position: [facility] RN Member Role: Primary Care Nurse Name: Lauren Mack RN Position: [facility] AMB Nurse Member Role: Primary Care Nurse Name: Madelaine Ruiz RN Position: [facility] RN Member Role: Primary Care Nurse Name: Lora Santiago RN Position: [facility] SN RN Member Role: Primary Care Nurse Name: Mayco Ro RN Position: [facility] RN Member Role: Primary Care Nurse Name: Heydi Potts RN Position: [facility] SN RN Member Role: Primary Care Nurse Name: Janice Romano LPN Position: [facility] RN Member Role: Primary Care Nurse Name: Nadya Low RN Position: [facility] RN Member Role: Primary Care Nurse Name: Mirna Greenfield RN Position: [facility] RN Member Role: Primary Care Nurse Name: Nessa Bonilla RN Position: [facility] Thermometer Tester Member Role: Primary Care Nurse Care Team Related Persons Name: DINESH SARGENT Address: [address] [place] [address] Name: BON DE Address: home [address] [address]
--- OUTSIDE RECORDS SUMMARY | 2024-06-24 14:12 | XMS_ITS | Continuity of Care Document ---
Author Organization [facility] ry Address [address] [place] [address]- Care Team Providers Care Foreign Collection Clerk Name Role Phone Celestina Trinidad MD Primary Care Physician Encounter [facility] Date(s): 08/07/22 - 09/06/22 [facility] [address] [place] [address]- Allergies, Adverse Reactions, Alerts No Known Allergies Immunizations Given and Recorded Vaccine Date Status Refusal Reason tetanus/diphtheria/pertussis, acel(Tdap) 1 08/21/22 Given tetanus/diphtheria/pertussis, acel(Tdap) 2 08/13/12 Given [id number] 12y+ bivalent booster vax 06/14/22 Recorded influenza [...] inactivated 6 07/31/12 Gi hali SARS-CoV-2 mRNA (unadjqy-jrwo-fkcxf) vax 02/14/22 Recorded SARS-CoV-2 (COVID-19) mRNA BNT-162b2 vac 05/06/21 Given SARS-CoV-2 (COVID-19) mRNA BNT-162b2 vac 11/04/20 Recorded SARS-CoV-2 (COVID-19) mRNA BNT-162b2 vac 10/14/20 Recorded pneumococcal 23-valent vaccine 7 04/07/19 Given 1Result Comment: [facility]# [id number] 2Admin Note: VIM dated 08/22/11 GIVEN TODAY 3Result Comment: [facility]# [id number] 4Result Comment: [05/25/2018] seq[employer] lot number [id number] exp 01/26/2019 [facility] [id number] 5Result Comment: [08/20/2017] [facility] [id number] 6Admin Note: VIM dated 01/29/12 GIVEN TODAY 7Result Comment: [facility]#[id number] Medications acetaminophen 500 mg oral capsule 2 [...] Stop, 04/10/2215:14:00 EDT, Route to Pharmacy Electronically, [id number], [facility]/pharmacy #2025, 158, cm, 04/10/22 14:56:00 EDT, Height, 143,... Start Date: 04/10/22 Status: Ordered amLODIPine 5 mg oral tablet 1 tablet, By Mouth, Daily, # 30 tablet, 5 Refills, Maintenance, 08/24/22 20:08:00 EST, [id number], 159, cm, 08/21/22 11:38:00 EST, Height, 143, kg, 01/04/21 10:42:00 EDT, Dry Weight Start Date: 08/24/22 Status: Ordered Anoro Ellipta 62.5 mcg-25 mcg/inh inhalation powder 1 puffs, By Mouth, Daily, # 1 each, 6 Refills, Maintenance, 05/11/22 13:00:00 EDT, Powder, [facility], Partial fill upon patient [...] 13:28:00 EDT, 08/31/22 13:28:00 EST, Tablet, [facility]/pharmacy #2024, Partial fill upon patient request if the prescription is for a schedule II opioid drug., 157, cm... Start Date: 08/31/22 Stop Date: 10/12/22 Status: Ordered cilostazol 50 mg oral tablet 1 tablet = 50 mg, By Mouth, Daily, # 180 tablet, 0 Refills, Maintenance, 09/02/22 10:35:00 EST, Tablet, [facility]/pharmacy #2024, Partial [...] 08/31/22 13:30:00 EST, [facility] Partial fill upon patient request if the p... Start Date: 08/31/22 Status: Ordered Flonase 50 mcg/inh nasal spray See Instructions, 2 sprays Nares twice daily x 1 week, then once daily x 1-2 weeks until symptoms improve, # 16 Gm, 0 Refills, Maintenance, 02/28/21 16:31:00 EDT, [place], [facility]/pharmacy #2025, Partial fill upon patient request if the prescription is for... Start Date: 02/28/21 Status: Ordered fluconazole 200 mg oral tablet 2 tablet = 400 mg, By Mouth, Daily, for 6 week(s), # 84 tablet, 0 Refills, Acute 10/12/22 13:28:00 EDT, 08/31/22 13:28:00 EST, Tablet, [facility]/pharmacy #5, Partial fill upon patient request if the prescription is for a schedule II opioid drug., 157, cm... Start Date: 08/31/22 Stop Date: 10/12/22 Status: Ordered FLUoxetine 20 mg oral capsule See Instructions, TAKE 1 CAPSULE BY MOUTH EVERY DAY, # 90 capsule, Refills 1, Maintenance, 06/13/2215:26:00 EST, Instructions Replace Required Details, Route to Pharmacy Electronically, [id number], 158, cm, 06/09/22 11:21:00 EST, Height, 143, [...] schedule II... Start Date: 08/25/22 Status: Ordered Lasix 20 mg oral tablet 20 mg, 1, tablet, By Mouth, Daily, May repeat if needed in 2 hours, # 30 tablet, Refills 0, Tot. Refills 0, Soft Stop, 09/05/22 16:55:00 EST, Route to Pharmacy Electronically, [facility]/pharmacy #2024, Partial fill upon patient request if the prescription i... Start Date: 09/05/22 Status: Ordered levothyroxine 0.137 mg oral tablet 1 tablet = 137 mcg, By Mouth, Daily, 1 tab on days 1-6, take 2 tabs on day 7, # 102 tablet, 1 Refills, Maintenance, 07/03/22 14:41:00 EST, Tablet, [facility]/pharmacy #2024, Partial fill upon patient request if the prescription is for a schedule II opioid drJim. Start Date: 07/03/22 Status: Ordered meclizine 25 mg oral tablet See Instructions, PRN Dizziness, 1 tablet By Mouth 3 times a day, # 30 tablet, 0 Refills, Maintenance, 05/11/21 13:11:00 EDT, [facility]/pharmacy #2024, Partial fill upon patient request if the prescriptionis for a schedule II opioid drug., 160.02, cm, 10/0... Start Date: 05/11/21 Status: Ordered meloxicam 15 mg oral tablet See Instructions, TAKE 1 TABLET BY MOUTH DAILY WITH FOOD. LABS NEEDED FOR FURTHER REFILLS, # 30 tablet, 3 Refills, Maintenance, 07/17/22 19:56:00 EST, [facility]/pharmacy #2024, 158, cm, 07/13/22 13:46:00 [...] 16:29:00 EST, Route to Pharmacy Electronically, [facility]/pharmacy #2024, Partialfill upon patient request [...] Team Personnel Name: Celestina Trinidad MD Position: [facility] Primary Care Physician Member Role: PCP Address: Address: [address] [place] [address] Name: Hemalatha Lucas RN Position: [facility] RN Member Role: Primary Care Nurse Name: Lauren Mack RN Position: [facility] AMB Nurse Member Role: Primary Care Nurse Name: Madelaine Ruiz RN Position: [facility] RN Member Role: Primary Care Nurse Name: Lora Santiago RN Position: [facility] SN RN Member Role: Primary Care Nurse Name: Mayco Ro RN Position: [facility] RN Member Role: Primary Care Nurse Name: Heydi Potts RN Position: [facility] RN Member Role: Primary Care Nurse Name: Janice Romano LPN Position: [facility] RN Member Role: Primary Care Nurse Name: Nadya Low RN Position: [facility] RN Member Role: Primary Care Nurse Name: Mirna Greenfield RN Position: [facility] RN Member Role: Primary Care Nurse Name: Nessa Bonilla RN Position: [facility] Briar Wood Sorter Member Role: Primary Care Nurse Care Team Related Persons Name: DINESH SARGENT Address: home [address] [place] [address] Name: BON DE Address: home [address] [place] [address]
--- OUTSIDE RECORDS SUMMARY | 2024-06-24 14:12 | XMS_ITS | Continuity of Care Document ---
Author Organization [facility] Address [address] [place] [address]- Care Team Providers Care Senior Wealth Advisor Name Role Phone Florentino AHN, Elder Hannah Primary Care Physician [phone] Encounter [facility] Date(s): 12/20/20 - 01/19/21 [facility] [address] [place] [address]- Attending Physician: Calixto Beltran Admitting Physician: Calixto [...] Comment: [facility]# [id number] 2Result Comment: [05/25/2018] [employer] lot number [id number] exp 01/26/2019 [facility] [id number] 3Result Comment: [08/20/2017] [facility] [id number] 4Admin Note: VIM dated 01/29/12 GIVEN TODAY 5Result Comment: [facility]#[id number] 6Admin Note: VIM dated 08/22/11 GIVEN TODAY [...] 10/27/20 14:48:00 EDT, Route to Pharmacy Electronically, [id number], [facility]/pharmacy #2024, 160.02, cm, 10/19/20 11:04:00 EDT, Height, 156... Start Date: 10/27/20 Status: Ordered betamethasone-clotrimazole 0.05%-1% topical cream 1 application, Topically, 2 times a day, # 45 Gm, 0 Refills, Maintenance, 12/27/20 14:13:00 EDT, Cream, [facility]/pharmacy #2024, Partial fill upon patient request if the prescription is for a schedule II opioid drug., 1 application Topically 2 times a day,... Start Date: 12/27/20 Status: Ordered diclofenac 1% topical gel See Instructions, APPLY TOPICALLY 4 TIMES A DAY, # 100 Gm, 1 Refills, 10/27/20 12:37:00 EDT, [facility]/pharmacy #2024, 25, APPLY TOPICALLY 4 TIMES A DAY, 160.02, cm, 10/19/20 11:04:00 EDT, Height, 156.81, kg, 10/19/20 11:04:00 EDT, Dry Weight Start Date: 10/27/20 Status: Ordered FLUoxetine 20 mg oral capsule 20 mg, 1, capsule, By Mouth, Daily, # 30 capsule, Refills 5, Tot. Refills 5, Maintenance, 12/20/20 14:39:00 EDT, Route to Pharmacy Electronically, [facility]/pharmacy #2024, replacing 10mg dose, 160.02, cm,12/20/20 11:59:00 EDT, Height, 156.81, kg, 10/19/20... Start Date: 12/20/20 Status: Ordered levothyroxine 0.137 mg oral tablet See Instructions, Take 1 tablet by mouth on days 1-6, then take 2 tablets by mouth on day 7, # 121 tablet, 5 Refills, Maintenance, 12/07/20 9:46:00 EDT, [facility]/pharmacy #2025, 160.02, cm, 10/19/20 11:04:00 EDT, Height, 156.81, kg, 10/19/20 11:04:00 EDT,... Start Date: 12/07/20 Status: Ordered meloxicam 15 mg oral tablet 1 tablet, By Mouth, Daily, WITH FOOD., # 30 tablet, 1 Refills, Maintenance, 12/20/20 7:39:00 EDT, [facility], 160.02, cm, 10/19/20 11:04:00 EDT, Height, 156.81, [...] 08/04/19 17:54:00 EST, Route to Pharmacy Electronically, [facility]/pharmacy #2024, 161, cm, 08/04/19 14:44:00 EST, Height Start Date: 08/04/19 Stop Date: 08/18/19 Status: Ordered traMADol 50 mg oral tablet 2 tablet = 100 mg, By Mouth, Every 12 hours, as needed for pain masspat checked, # 120 tablet, 2 Refills, Maintenance, 09/13/20 16:54:00 EST, [facility], 161, cm, 08/18/20 15:29:00 EST, [...] Response Smoking Status Current every day oliva oker; Tobacco user in household: No; Type: Cigarettes; Tobacco use times per day: 1/2 ppd; entered on: 07/08/15 Sex
--- OUTSIDE RECORDS SUMMARY | 2024-06-24 14:12 | XMS_ITS | Continuity of Care Document ---
Author Organization [facility] Address [address] [place] [address]- Care Team Providers Care Clerk Analyst Name Role Phone Kareen HENNING, Patrick Graham Primary Care Physician Encounter [facility] Date(s): 08/04/19 - 08/11/19 [facility] [address] [place] [address]- [facility] Encounter Diagnosis Acute URI(Discharge Diagnosis) - 08/04/19 Right hip pain(Discharge Diagnosis) - 08/04/19 Low back pain(Discharge Diagnosis) - 08/04/19 Mild asthma exacerbation(Discharge Diagnosis) - 08/05/19 Attending Physician: Norberto Baugh MD Allergies, Adverse Reactions, Alerts Substance Reaction [...] [facility]# [id number] 2Result Comment: [05/25/2018] [employer] lot number [id number] exp 01/26/[address] [facility] [id number] 3Result Comment: [08/20/2017] [facility] [id number] 4Admin Note: VIM dated 01/29/12 GIVEN TODAY 5Result Comment: [facility]#[id number] 6Admin Note: VIM dated 08/22/11 GIVEN TODAY Medications albuterol CFC free 90 mcg/inh inhalation aerosol See Instructions, # 25.5 Unknown, Refills 2 Tot. Refills 2, INHALE 2 PUFFS EVERY 6 HOURS NEEDED FOR WHEEZE, [facility]/pharmacy #2024 Start Date: 05/27/19 Status: Ordered diclofenac 1% topical gel 1 application, Topically, 4 times a day, # 100 Gm, 0 Refills, Maintenance, 08/01/18 17:08:02 EST, Gel Start Date: 08/01/18 Status: Ordered FLUoxetine 20 mg oral capsule 20 mg, 1, capsule, By Mouth, Daily, # 30 capsule, Refills 5, Tot. Refills 5, Maintenance, 07/10/19 14:06:00 EST, Route to Pharmacy Electronically, [id number], [facility]/pharmacy #2024, replacing 10mg dose, 161, [...] 0 Refills, Maintenance, 08/03/19 11:35:00 EST, Tablet, [facility]/pharmacy #2024, Labs needed for further refills, 161, cm, 06/25/19 11:16:00 EST, Height Start Date: 08/03/19 Status: Ordered tiZANidine 2 mg oral tablet 2 mg, 1, tablet, By Mouth, Daily at bedtime, PRN, # 14 tablet, Refills 0, Tot. Refills 0, Maintenance, as needed for muscle spasm, 08/04/19 17:54:00 EST, Route to Pharmacy Electronically, [facility]/pharmacy #2024, 161, cm, 08/04/19 14:44:00 [...] Effective Dates Health Status Clinical Service Informant Acute URI Discharge Diagnosis 08/04/19 Right hip pain Discharge Diagnosis 08/04/19 Low back pain Discharge Diagnosis 08/04/19 Mild asthma exacerbation Discharge Diagnosis 08/05/19 Vital Signs Most recent to oldest [Reference Range]: 1 Height 161 cm (08/04/19 2:44 PM) Oxygen Saturation [94-100 %] 99 % (08/04/19 2:44 PM) Pulse Rate [55-90 bpm] 66 bpm (08/04/19 2:44 PM) Blood Pressure [90-138/55-84 mm Hg] 124/ 68mm Hg (08/04/19 2:44 PM) Respiratory Rate [16-30 br/min] 16 br/mi n (08/04/19 2:44 PM) Mode of Delivery (Oxygen) Room air (08/04/19 2:44 PM) Blood pressure sites Arm, right (08/04/19 2:44 PM) Social History Social History Type Response Smoking Status Current every day sm oker; Tobacco user in household: No; Type: Cigarettes; Tobacco use times per day: 1/2 ppd; entered on: 07/08/15 Sex
--- OUTSIDE RECORDS SUMMARY | 2024-06-24 14:12 | XMS_ITS | Continuity of Care Document ---
Author Organization [facility] Address [address] [place] [address]- Care Team Providers Care Computer Systems Design Analyst Name Role Phone Celestina Trinidad MD Primary Care Physician Encounter [facility] Date(s): 11/05/23 - 12/05/23 [facility] [address] [place] [address]- Allergies, Adverse Reactions, Alerts No Known Allergies [...] 08/21/22 Given tetanus/diphtheria/pertussis, acel(Tdap) 7 08/13/12 Given [id number]-SlY-[id number] 12y+ bivalent booster vax 06/14/22 Recorded SARS-CoV-2 mRNA (eixyubd-owcq-taccd) vax 02/14/22 Recorded SARS-CoV-2 (COVID-19) mRNA BNT-162b2 vac 05/06/21 Given SARS-CoV-2 (COVID-19) mRNA BNT-162b2 vac 11/04/20 Recorded SARS-CoV-2 (COVID-19) mRNA BNT-162b2 vac 10/14/20 Recorded pneumococcal 23-valent vaccine 8 04/07/19 Given 1Result Comment: screening negative 2Result Comment: [facility]# [id number] 3Result Comment: [05/25/2018] [facility] lot number [id number] exp 01/26/2019 [facility] [id number] 4Result Comment: [08/20/2017] [facility] [id number] 5Admin Note: VIM dated 01/29/12 GIVEN TODAY 6Result Comment: [facility]# [id number] 7Admin Note: VIM dated 08/22/11 GIVEN TODAY 8Result Comment: [facility]#[id number] Medications acetaminophen 500 mg oral capsule 2 [...] Route to Pharmacy Electronically, [facility]/pharmacy #2024, Partial fill upon patient request if the presc... Start Date: 05/17/23 Stop Date: 05/17/24 Status: Ordered diclofenac 1% topical gel See Instructions, APPLY TO AFFECTED AREA 4 TIMES A DAY, # 100 Gm, 1 Refills, Maintenance, 11/07/23 7:48:00 EDT, [facility]/pharmacy #2024, 25, APPLY TO AFFECTED AREA [...] Gm, 0 Refills, Maintenance, 02/28/21 16:31:00 EDT, [place], Partial fill upon patient request [...] 19:01:00 EST, Route to Pharmacy Electronically, [facility]/pharmacy #2024, 157.5, cm, 07/13/23 9:57:00 EST, Height, 145.9, kg, 05/22/23 7:39:00 EDT, Dry Weight Start Date: 07/31/23 Status: Ordered gabapentin 300 mg oral capsule 600 mg, 2, capsule, By Mouth, 3 times a day, # 180 capsule, Refills 3, Tot. Refills 3, Maintenance,08/25/22 22:35:00 EST, [facility] Partial fill upon patient request if [...] 0 Refills, Maintenance, 10/12/23 6:42:00 EDT, [facility]/pharmacy #2024, 157.5, cm, 07/13/23 9:57:00 EST, Height, 145.9, kg, 05/22/23 7:39:00 EDT, Dry Weight Start Date: 10/12/23 Status: Ordered meclizine 25 mg oral tablet See Instructions, PRN Dizziness, 1 tablet By Mouth 3 times a day, # 30 tablet, 0 Refills, Maintenance, 02/27/23 10:43:00 EDT, [facility]/pharmacy #2024, Partial fill upon patient request [...] Maintenance, 10/24/23 11:39:00 EDT, ER Tablet, [facility], Partial fill upon patient request if the prescription is for a schedule II opioid drug., 157.5, cm, 10/18/23 15:15:00 EDT, H... Start Date: 10/24/23 Status: Ordered oxyCODONE 5 mg oral tablet 5 mg, 1, tablet, By Mouth, Every 4 hours, PRN, you may filll this prescription for fewer pills[facility] # [facility], Refills 0, [...] tablet, 0 Refills, Maintenance, 11/05/23 16:28:00 EDT, [facility]/pharmacy #2025, Partial fill upon patient request [...] Code MRI Safety Implantable Status Assigning Authority [id number] Unknown [id number] Unknown 08/26/24 Unknown Unknown Active GS1 Patient Care team information Care Team Personnel Name: Celestina Trinidad MD Position: [facility] Physician - Primary Care Member Role: PCP Address: Address: [address] [place] [address] Name: Hemalatha Lucas RN Position: [facility] RN Member Role: Primary Care Nurse Name: Lauren Mack RN Position: [facility] AMB Nurse Member Role: Primary [...] Bonilla RN Position: [facility] Natural Resources Specialist Member Role: Primary Care Nurse Care Team Related Persons Name: ROSETTA DINESH Address: home [address] [place] [address] Name: BON DE Address: [address] [address]
--- OUTSIDE RECORDS SUMMARY | 2024-06-24 14:12 | XMS_ITS | Continuity of Care Document ---
Author Organization [facility] Address [address] [place] [address]- Care Team Providers Care Bridge Manager Name Role Phone Vivi HENNING, Celestina Givens Primary Care Physician Encounter [facility] Date(s): 09/24/23 - 10/24/23 [facility] [address] [place] [address]- Allergies, Adverse Reactions, Alerts No Known Allergies [...] 08/21/22 Given tetanus/diphtheria/pertussis, acel(Tdap) 7 08/13/12 Given [id number] 12y+ bivalent booster vax 06/14/22 Recorded SARS-CoV-2 mRNA (pkeaafn-eams-hitkx) vax 02/14/22 Recorded SARS-CoV-2 (COVID-19) mRNA BNT-162b2 vac 05/06/21 Given SARS-CoV-2 (COVID-19) mRNA BNT-162b2 vac 11/04/20 Recorded SARS-CoV-2 (COVID-19) mRNA BNT-162b2 vac 10/14/20 Recorded pneumococcal 23-valent vaccine 8 04/07/19 Given 1Result Comment: screening negative 2Result Comment: [facility]# [id number] 3Result Comment: [05/25/2018] [facility] lot number [id number] exp 01/26/2019 [facility] 45132-595-74 4Result Comment: [08/20/2017] [facility] [id number] 5Admin Note: VIM dated 01/29/12 GIVEN TODAY 6Result Comment: [facility]# [id number] 7Admin Note: VIM dated 08/22/11 GIVEN TODAY 8Result Comment: [facility]#[id number] Medications acetaminophen 500 mg oral capsule 2 [...] Refills, Maintenance, 09/02/23 8:08:00 EST, [facility], 25, APPLY TO AFFECTED AREA 4 TIMES [...] Gm, 0 Refills, Maintenance, 02/28/21 16:31:00 EDT, [place], [facility], Partial fill upon patient request [...] Maintenance,08/25/22 22:35:00 EST, [facility] fill upon patient request [...] tablet, 0 Refills, Maintenance, 10/08/23 17:51:00 EDT, [facility]/pharmacy #6, Partial fill upon patient request if the [...] Code MRI Safety Implantable Status Assigning Authority [id number] Unknown [id number] Unknown 08/26/24 Unknown Unknown Active GS1 Patient Care team information Care Team Personnel Name: Celestina Trinidad MD Position: S Physician - Primary Care Member Role: PCP Address: Address: [address] [place] [address]- Name: Hemalatha Lucas RN Position: [facility] RN Member Role: Primary Care Nurse Name: Lauren Mack RN Position: [facility] AMB Nurse Member Role: Primary Care Nurse Name: Madelaine Ruiz RN Position: [facility] RN Member Role: Primary Care Nurse Name: Lora Santiago RN Position: [facility] SN RN Member Role: Primary Care Nurse Name: Mayco Ro RN Position: [facility] RN Member Role: Primary Care Nurse Name: Heydi Potts RN Position: [facility] SN RN Member Role: Primary Care Nurse Name: Janice Romano LPN Position: [facility] RN Member Role: Primary Care Nurse Name: Nadya Low RN Position: [facility] RN Member Role: Primary Care Nurse Name: Mirna Greenfield RN Position: [facility] RN Member Role: Primary Care Nurse Name: Nessa Bonilla RN Position: [facility] Consolidator Member Role: Primary Care Nurse Care Team Related Persons Name: DINESH SARGENT Address: home [address] [place] [address] Name: BON DE Address: home [address] [address]
--- OUTSIDE RECORDS SUMMARY | 2024-06-24 14:12 | XMS_ITS | Continuity of Care Document ---
Author Organization [facility] Address [address] [place] [address]- Care Team Providers Care Paper Baler Name Role Phone Florentino AHN, Elder Hannah Primary Care Physician Encounter [facility] [place] Date(s): 02/28/21 - 03/30/21 [facility] [address] [place] [address]- Attending Physician: Calixto Beltran Admitting Physician: AdmCalixto [...] influenza virus vaccine, inactivated 4 07/31/12 Gi hail pneumococcal 23-valent vaccine 5 04/07/19 Given tetanus/diphtheria/pertussis, acel(Tdap) 6 08/13/12 Given 1Result Comment: [facility]# [id number] 2Result Comment: [05/25/2018] [facility] lot number [id number] 01/26/2019 [facility] [id number] 3Result Comment: [08/20/2017] [facility] [id number] 4Admin Note: VIM dated 01/29/12 GIVEN TODAY 5Result Comment: [facility][NOTE 2]#[id number] 6Admin Note: VIM dated 08/22/11 GIVEN TODAY [...] 10/27/20 14:48:00 EDT, Route to Pharmacy Electronically, [id number], [facility]/pharmacy #2024, 160.02, cm, 10/19/20 11:04:00 EDT, Height, 156... Start Date: 10/27/20 Status: Ordered betamethasone-clotrimazole 0.05%-1% topical cream 1 application, Topically, 2 times a day, # 45 Gm, 0 Refills, Maintenance, 12/27/20 14:13:00 EDT, [place], [facility], Partial fill upon patient request [...] Gm, 0 Refills, Maintenance, 02/28/21 16:31:00 EDT, [place], [facility], Partial fill upon patient request if the prescription is for... Start Date: 02/28/21 Status: Ordered FLUoxetine 10 mg oral capsule 10 mg, 1, capsule, By Mouth, Daily, Take with 20mg capsule for total of 30mg daily, # 90 capsule, Refills 0, Tot. Refills 0, Maintenance, 03/11/21 12:00:00 EDT, Route to Pharmacy Electronically, [facility]/pharmacy #202, Partial fill upon patient request if... Start Date: 03/11/21 Status: Ordered FLUoxetine 20 mg oral capsule 20 mg, 1, capsule, By Mouth, Daily, # 30 capsule, Refills 5, Tot. Refills 5, Maintenance, 12/20/20 14:39:00 EDT, Route to Pharmacy Electronically, [facility]/pharmacy #202, replacing 10mg dose, 160.02, cm,12/20/20 11:59:00 EDT, Height, 156.81, kg, 10/19/20... Start Date: 12/20/20 Status: Ordered levothyroxine 0.137 mg oral tablet See Instructions, Take 1 tablet by mouth on days 1-6, then take 2 tablets by mouth on day 7, # 121 tablet, 5 Refills, Maintenance, 12/07/20 9:46:00 EDT, [facility]/pharmacy #202, 160.02, cm, 10/19/20 11:04:00 EDT, Height, 156.81, kg, 10/19/20 11:04:00 EDT,... Start Date: 12/07/20 Status: Ordered meclizine 25 mg oral tablet See Instructions, PRN Dizziness, 1 tablet By Mouth 3 times a day, # 30 tablet, 0 Refills, Acute 03/31/21 12:00:00 EDT, 03/17/21 9:08:00 EDT, [facility]/pharmacy #202, Partial fill upon patient request if the prescription is for a schedule II opioid drug., 1... Start Date: 03/17/21 Stop Date: 03/31/21 Status: Ordered meloxicam 15 mg oral tablet 1 tablet, By Mouth, Daily, WITH FOOD., # 30 tablet, 1 Refills, Maintenance, 02/13/21 16:32:00 EDT, [facility], 160.02, cm, 01/04/21 10:42:00 EDT, Height, 143, kg, 01/04/21 10:42:00 EDT, Dry Weight Start Date: 02/13/21 Status: Ordered Splint See Instructions, # 1 each, Maintenance, left wrist short cock-up splint, 01/08/20 14:28:00 EDT, Supply Start Date: 01/08/20 Status: Ordered tiZANidine 2 mg oral tablet 2 mg, 1, tablet, By Mouth, Daily at bedtime, PRN, # 14 tablet, Refills 0, Tot. Refills 0, Maintenance, as needed for muscle spasm, 08/04/19 17:54:00 EST, Route to Pharmacy Electronically, [facility]/pharmacy #2024, 161, cm, 08/04/19 14:44:00 EST, Height Start Date: 08/04/19 Stop Date: 08/18/19 Status: Ordered traMADol 50 mg oral tablet 2 tablet = 100 mg, By Mouth, Every 12 hours, as needed for pain masspat checked, # 120 tablet, 2 Refills, Maintenance, 02/10/21 12:37:00 EDT, [facility]/pharmacy #2024, 160.02, cm, 01/04/21 10:42:00 EDT, Height, 143, [...]
--- OUTSIDE RECORDS SUMMARY | 2024-06-24 14:12 | XMS_ITS | Continuity of Care Document ---
Author Organization [facility] Address [address] [place] [address]- Care Team Providers Care Treer Name Role Phone Vivi HENNING, Celestina Givens Primary Care Physician Encounter [facility] Date(s): 04/03/23 - 05/03/23 [facility] [address] [place] [address]- Allergies, Adverse Reactions, Alerts No Known Allergies Immunizations Given and Recorded Vaccine Date Status Refusal Reason tetanus/diphtheria/pertussis, acel(Tdap) 1 08/21/22 Given tetanus/diphtheria/pertussis, acel(Tdap) 2 08/13/12 Given [id number] 12y+ bivalent booster vax 06/14/22 Recorded influenza [...] inactivated 6 07/31/12 Gi hali SARS-CoV-2 mRNA (oqgmwgd-yunf-qbnbp) vax 02/14/22 Recorded SARS-CoV-2 (COVID-19) mRNA BNT-162b2 vac 05/06/21 Given SARS-CoV-2 (COVID-19) mRNA BNT-162b2 vac 11/04/20 Recorded SARS-CoV-2 (COVID-19) mRNA BNT-162b2 vac 10/14/20 Recorded pneumococcal 23-valent vaccine 7 04/07/19 Given 1Result Comment: [facility]# [id number] 2Admin Note: VIM dated 08/22/11 GIVEN TODAY 3Result Comment: [facility]# [id number] 4Result Comment: [05/25/2018] [facility] lot number [id number] exp 01/26/2019 [facility] [id number] 5Result Comment: [08/20/2017] [facility] [id number] 6Admin Note: VIM dated 01/29/12 GIVEN TODAY 7Result Comment: [facility]#[id number] Medications acetaminophen 500 mg oral capsule 2 [...] Stop, 04/10/2215:14:00 EDT, Route to Pharmacy Electronically, [id number], [facility]/pharmacy #2025, 158, cm, 04/10/22 14:56:00 [...] 100 Gm, 1 Refills, Maintenance, 01/08/23 9:36:00EDT, [facility], 50, APPLY TOPICALLY 4 TIMES A DAY, [...] Gm, 0 Refills, Maintenance, 02/28/21 16:31:00 EDT, [place], [facility]/pharmacy #202, Partial fill upon patient request if the prescription is for... Start Date: 02/28/21 Status: Ordered FLUoxetine 10 mg oral capsule 10 mg, 1, capsule, By Mouth, Daily, to be taken with 20mg capsules to equal 30mg daily, # 90 capsule, Refills 1, Tot. Refills 1, Maintenance, 04/03/23 11:25:00 EDT, Route to Pharmacy Electronically, [facility]/pharmacy #2024, Partial fill upon patient reques... Start Date: 04/03/23 Status: Ordered FLUoxetine 20 mg oral capsule 1, capsule, By Mouth, Daily, # 90 capsule, Refills 1, Tot. Refills 1, Maintenance, 04/03/23 11:23:00 EDT, Route to Pharmacy Electronically, [facility]/pharmacy #2024, 157, cm, 03/14/23 11:02:00 EDT, Height,145, kg, 08/29/22 20:13:00 EST, Dry Weight Start Date: 04/03/23 Status: Ordered gabapentin 300 mg oral capsule 600 mg, 2, capsule, By Mouth, 3 times a day, # 180 capsule, Refills 3, Tot. Refills 3, Maintenance,08/25/22 22:35:00 EST, Route to Pharmacy Electronically, [facility]/pharmacy #2024, Partial fill upon patient [...] tablet, 2 Refills, Maintenance, 02/27/23 7:25:00 EDT, [facility] STORE 45130, 157, cm, 12/08/22 14:27:00 EDT, Height, 145, kg, 08/29/22 20:13:00 EST, Dry... Start Date: 02/27/23 Status: Ordered meclizine 25 mg oral tablet See Instructions, PRN Dizziness, 1 tablet By Mouth 3 times a day, # 30 tablet, 0 Refills, Maintenance, 02/27/23 10:43:00 EDT, [facility]/pharmacy #2024, Partial fill upon patient request if the prescriptionis for a schedule II opioid drug., 157, cm, ... Start Date: 02/27/23 Status: Ordered meloxicam 15 mg oral tablet See Instructions, TAKE 1 TABLET BY MOUTH DAILY WITH FOOD. LABS NEEDED FOR FURTHER REFILLS, # 30 tablet, 1 Refills, Maintenance, 05/01/23 14:45:00 EDT, [facility]/pharmacy #2025, 157, cm, 03/14/23 11:02:00 [...] holliday, # 81 tablet, 0 Refills, Maintenance, 02/20/23 17:17:00 EDT, [facility]/pharmacy #5, 157, cm, 12/08/2313:27:00 EDT, Height, 145, kg, 08/29/22 20:13:00 E... Start Date: 02/20/23 Status: Ordered zolpidem 10 mg oral tablet 1 tablet = 10 mg, By Mouth, Daily at bedtime, PRN for sleep, for 30 days, # 30 tablet, 0 Refills, Acute 05/04/23 22:28:00 EDT, 04/04/23 22:28:00 EDT, Tablet, 157, cm, 03/14/23 11:02:00 EDT, Height, 145, kg, 08/29/22 20:13:00 EST, Dry Weight Start Date: 04/04/23 Stop Date: 05/04/23 Status: Ordered Problem List Condition Confirmation Course [...] Team Personnel Name: Celestina Trinidad MD Position: [facility] Physician - Primary Care Member Role: PCP Address: Address: [address] [place] [address] Name: Hemalatha Lucas RN Position: [facility] RN Member Role: Primary Care Nurse Name: Lauren Mack RN Position: [facility] AMB Nurse Member Role: Primary Care Nurse Name: Madelaine Ruiz RN Position: [facility] RN Member Role: Primary Care Nurse Name: Lora Santiago RN Position: [facility] SN RN Member Role: Primary Care Nurse Name: Mayco Ro RN Position: [facility] RN Member Role: Primary Care Nurse Name: Heydi Potts RN Position: [facility] RN Member Role: Primary Care Nurse Name: Janice Romano LPN Position: [facility] RN Member Role: Primary Care Nurse Name: Nadya Low RN Position: [facility] RN Member Role: Primary Care Nurse Name: Mirna Greenfield RN Position: [facility] RN Member Role: Primary Care Nurse Name: Nessa Bonilla RN Position: [facility] Hospital Catering Operations Manager Member Role: Primary Care Nurse Care Team Related Persons Name: ROSETTA DINESH Address: home [address] [place] [address] Name: BON DE Address: home [address] [place] [id number]
--- OUTSIDE RECORDS SUMMARY | 2024-06-24 14:12 | XMS_ITS | Continuity of Care Document ---
Author Organization [facility] em Address Unknown Care Team Providers Care Academic Services Professional Name Role Phone Celestina Trinidad MD Primary Care Physician Encounter [facility] Date(s): 10/20/22 - 11/19/22 [facility] Attending Physician: Calixto Beltran Admitting Physician: Calixto Beltran Referring Physician: Calixto Beltran Allergies, Adverse Reactions, Alerts No Known Allergies Immunizations Given and Recorded Vaccine Date Status Refusal Reason tetanus/diphtheria/pertussis, acel(Tdap) 1 08/21/22 Given tetanus/diphtheria/pertussis, acel(Tdap) 2 08/13/12 Given [id number] 12y+ bivalent booster vax 06/14/22 Recorded influenza [...] inactivated 6 07/31/12 Gi hali SARS-CoV-2 mRNA (qsqoomp-szzq-xvysq) vax 02/14/22 Recorded SARS-CoV-2 (COVID-19) mRNA BNT-162b2 vac 05/06/21 Given SARS-CoV-2 (COVID-19) mRNA BNT-162b2 vac 11/04/20 Recorded SARS-CoV-2 (COVID-19) mRNA BNT-162b2 vac 10/14/20 Recorded pneumococcal 23-valent vaccine 7 04/07/19 Given 1Result Comment: [facility]# [id number] 2Admin Note: VIM dated 08/22/11 GIVEN TODAY 3Result Comment: [facility]# [id number] 4Result Comment: [05/25/2018] [facility] lot number [id number] exp 01/26/2019 [facility] [id number] 5Result Comment: [08/20/2017] [facility] [id number] 6Admin Note: VIM dated 01/29/12 GIVEN TODAY 7Result Comment: [facility]#[id number] Medications acetaminophen 500 mg oral capsule 2 [...] Stop, 04/10/2215:14:00 EDT, Route to Pharmacy Electronically, [id number], [facility]/pharmacy #2025, 158, cm, 04/10/22 14:56:00 EDT, Height, 143,... Start Date: 04/10/22 Status: Ordered amLODIPine 10 mg oral tablet 1 tablet, By Mouth, Daily, # 90 tablet, 0 Refills, Maintenance, 10/23/22 12:47:00 EDT, [facility] STORE 29206, 157, cm, 09/13/22 15:58:00 EST, Height, 145, kg, 08/29/22 20:13:00 EST, Dry Weight Start Date: 10/23/22 Status: Ordered budesonide-formoterol 80 mcg-4.5 mcg/inh inhalation aerosol with adapter 2, puffs, Inhalation, 2 times a day, PRN, use with spacer chamber, rinse mouth and throat after use, # 10.2 Gm, Refills 5, Tot. Refills 5, Maintenance, 09/12/22 11:06:00 EST, Aerosol, Route to Pharmacy Electronically, [id number]... Start Date: 09/12/22 Status: Ordered cilostazol 100 mg oral tablet 1 tablet, By Mouth, 2 times a day, # 60 tablet, 0 Refills, Maintenance, 11/15/22 22:18:00 EDT, [facility], 157, cm, 10/30/22 13:53:00 EDT, Height, 145, [...] Gm, 1 Refills, 09/22/22 7:28:00 EST, [facility], 25, APPLY TOPICALLY 4 TIMES A DAY, 157, cm, 09/13/22 15:58:00 EST, Height, 145, kg, 08/29/22 20:13:00 EST, Dry Weight Start Date: 09/22/22 Status: Ordered docusate sodium 100 mg oral capsule 100 mg, 1, capsule, By Mouth, 2 times a day, PRN, # 20 capsule, Refills 0, Tot. Refills 0, Maintenance, as needed for constipation, 08/31/22 13:30:00 EST, Route to Pharmacy Electronically, [facility]/pharmacy #5, Partial fill upon patient request if the p... Start Date: 08/31/22 Status: Ordered Flonase 50 mcg/inh nasal spray See Instructions, 2 sprays Nares twice daily x 1 week, then once daily x 1-2 weeks until symptoms improve, # 16 Gm, 0 Refills, Maintenance, 02/28/21 16:31:00 EDT, [place], [facility]/pharmacy #2025, Partial fill upon patient request if the prescription is for... Start Date: 02/28/21 Status: Ordered FLUoxetine 20 mg oral capsule 1, capsule, By Mouth, Daily, # 90 capsule, Refills 1, Maintenance, 10/23/22 12:47:00 EDT, Route to Pharmacy Electronically, [facility], 157, cm, 09/13/22 15:58:00 EST, Height, 145, kg, 08/29/22 20:13:00 EST, Dry Weight Start Date: 10/23/22 Status: Ordered furosemide 20 mg oral tablet 1, tablet, By Mouth, Daily, MAY REPEAT IF NEEDED IN 2 HOURS, # 30 tablet, Refills 0, Maintenance, 11/08/22 16:39:00 EDT, Route to Pharmacy Electronically, [facility], 157, cm, 10/30/22 13:53:00 EDT, Height, 145, kg, 08/29/22 20:13:00 EST, Dry Weight Start Date: 11/08/22 Status: Ordered gabapentin 300 mg oral capsule 600 mg, 2, capsule, By Mouth, 3 times a day, # 180 capsule, Refills 3, Tot. Refills 3, Maintenance,08/25/22 22:35:00 EST, Route to Pharmacy Electronically, [facility]/pharmacy #2025, Partial fill upon patient request [...] 1 Refills, Maintenance, 07/03/22 14:41:00 EST, Tablet, [facility]/pharmacy #2024, Partial fill upon patient request if the prescription is for a schedule II opioid drMelonie.. Start Date: 07/03/22 Status: Ordered meclizine 25 mg oral tablet See Instructions, PRN Dizziness, 1 tablet By Mouth 3 times a day, # 30 tablet, 0 Refills, Maintenance, 05/11/21 13:11:00 EDT, [facility]/pharmacy #2024, Partial fill upon patient request if the prescriptionis for a schedule II opioid drug., 160.02, cm, 100... Start Date: 05/11/21 Status: Ordered meloxicam 15 mg oral tablet See Instructions, TAKE 1 TABLET BY MOUTH DAILY WITH FOOD. LABS NEEDED FOR FURTHER REFILLS, # 30 tablet, 3 Refills, Maintenance, 10/18/22 21:31:00 EDT, [facility] STORE 87488, 157, cm, 09/13/22 15:58:00 EST,Height, 145, kg, [...] 09/05/22 16:29:00 EST, Route to Pharmacy Electronically, [facility]/pharmacy #2024, Partialfill upon patient request if the prescription is fo... Start Date: 09/05/22 Stop Date: 09/12/22 Status: Ordered traMADol 50 mg oral tablet See Instructions, 2 tab po qam and one tab po q pm prn moderate to severe pain. 28 days. mass pat ok, # 81 tablet, 0 Refills, Maintenance, 10/29/22 21:38:00 EDT, [facility]/pharmacy #2025, 157, cm, 09/13/2314:58:00 EST, Height, 145, [...] Team Personnel Name: Celestina Trinidad MD Position: [facility] Primary Care Physician Member Role: PCP Address: Address: [address] [place] [address] Name: Hemalatha Lucas RN Position: [facility] RN Member Role: Primary Care Nurse Name: Lauren Mack RN Position: [facility] AMB Nurse Member Role: Primary Care Nurse Name: Madelaine Ruiz RN Position: [facility] RN Member Role: Primary Care Nurse Name: Lora Santiago RN Position: [facility] RN Member Role: Primary Care Nurse Name: Mayco Ro RN Position: [facility] RN Member Role: Primary Care Nurse Name: Heydi Potts RN Position: [facility] RN Member Role: Primary Care Nurse Name: Janice Romano LPN Position: [facility] RN Member Role: Primary Care Nurse Name: Nadya Low RN Position: [facility] RN Member Role: Primary Care Nurse Name: Mirna Greenfield RN Position: [facility] RN Member Role: Primary Care Nurse Name: Nessa Bonilla RN Position: [facility] Candy Cooker Helper Member Role: Primary Care Nurse Care Team Related Persons Name: DINESH SARGENT Address: [address] [place] [address] Name: BON DE Address: [address] [address]
--- OUTSIDE RECORDS SUMMARY | 2024-06-24 14:12 | XMS_ITS | Continuity of Care Document ---
Author Organization [facility] Address [address] [place] [address]- Care Team Providers Care Computer Technical Support Specialist Name Role Phone Celestina Trinidad MD Primary Care Physician Encounter [facility] R [id number] Date(s): 02/27/23 - 04/06/23 [facility] [address] [place] [address]- Attending Physician: Not on Staff, Attending MD Allergies, Adverse Reactions, Alerts No Known Allergies Immunizations Given and Recorded Vaccine Date Status Refusal Reason tetanus/diphtheria/pertussis, acel(Tdap) 1 08/21/22 Given tetanus/diphtheria/pertussis, acel(Tdap) 2 08/13/12 Given [id number] 12y+ bivalent booster vax 06/14/22 Recorded influenza [...] inactivated 6 07/31/12 Gi hali SARS-CoV-2 mRNA (rciojfe-druh-qpxyn) vax 02/14/22 Recorded SARS-CoV-2 (COVID-19) mRNA BNT-162b2 vac 05/06/21 Given SARS-CoV-2 (COVID-19) mRNA BNT-162b2 vac 11/04/20 Recorded SARS-CoV-2 (COVID-19) mRNA BNT-162b2 vac 10/14/20 Recorded pneumococcal 23-valent vaccine 7 04/07/19 Given 1Result Comment: [facility]# [id number] 2Admin Note: VIM dated 08/22/11 GIVEN TODAY 3Result Comment: [facility]# [id number] 4Result Comment: [05/25/2018] [facility] lot number [id number] exp 01/26/2019 [facility] 36511-184-42 5Result Comment: [08/20/2017] [facility] 79089-913-81 6Admin Note: VIM dated 01/29/12 GIVEN TODAY 7Result Comment: [facility]#[id number] Medications acetaminophen 500 mg oral capsule 2 [...] Stop, 04/10/2215:14:00 EDT, Route to Pharmacy Electronically, [id number], [facility]/pharmacy #2025, 158, cm, 04/10/22 14:56:00 EDT, Height, [...] 1 Refills, Maintenance, 01/08/23 9:36:00EDT, [facility], 50, APPLY TOPICALLY 4 TIMES A DAY, [...] Gm, 0 Refills, Maintenance, 02/28/21 16:31:00 EDT, [place], [facility]/pharmacy #2024, Partial fill upon patient request if the prescription is for... Start Date: 02/28/21 Status: Ordered FLUoxetine 10 mg oral capsule 10 mg, 1, capsule, By Mouth, Daily, to be taken with 20mg capsules to equal 30mg daily, # 90 capsule, Refills 1, Tot. Refills 1, Maintenance, 04/03/23 11:25:00 EDT, Route to Pharmacy Electronically, [facility]/pharmacy #2025, Partial fill upon patient reques... Start Date: 04/03/23 Status: Ordered FLUoxetine 20 mg oral capsule 1, capsule, By Mouth, Daily, # 90 capsule, Refills 1, Tot. Refills 1, Maintenance, 04/03/23 11:23:00 EDT, Route to Pharmacy Electronically, [facility]/pharmacy #2024, 157, cm, 03/14/23 11:02:00 EDT, Height,145, kg, 08/29/22 20:13:00 EST, Dry Weight Start Date: 04/03/23 Status: Ordered gabapentin 300 mg oral capsule 600 mg, 2, capsule, By Mouth, 3 times a day, # 180 capsule, Refills 3, Tot. Refills 3, Maintenance,08/25/22 22:35:00 EST, Route to Pharmacy Electronically, [facility]/pharmacy #2025, Partial fill upon patient request if [...] tablet, 2 Refills, Maintenance, 02/27/23 7:25:00 EDT, [facility] STORE 48056, 157, cm, 12/08/22 14:27:00 EDT, Height, 145, kg, 08/29/22 20:13:00 EST, Dry... Start Date: 02/27/23 Status: Ordered meclizine 25 mg oral tablet See Instructions, PRN Dizziness, 1 tablet By Mouth 3 times a day, # 30 tablet, 0 Refills, Maintenance, 02/27/23 10:43:00 EDT, [facility]/pharmacy #202, Partial fill upon patient request if the prescriptionis for a schedule II opioid drug., 157, cm, ... Start Date: 02/27/23 Status: Ordered meloxicam 15 mg oral tablet See Instructions, TAKE 1 TABLET BY MOUTH DAILY WITH FOOD. LABS NEEDED FOR FURTHER REFILLS, # 30 tablet, 1 Refills, Maintenance, 03/05/23 9:28:00 EDT, [facility] STORE 79270, 157, cm, 12/08/22 14:27:00 EDT, Height, 145, kg, 08/29/22 20:13:00 EST, Dry Weight Start Date: 03/05/23 Status: Ordered Splint See Instructions, # 1 [...] moderate to severe pain. 28 days. mass merly holliday, # 81 tablet, 0 Refills, Maintenance, 02/20/23 17:17:00 EDT, [facility]/pharmacy #2024, 157, cm, 12/08/2313:27:00 EDT, Height, 145, kg, 08/29/22 20:13:00 E... Start Date: 02/20/23 Status: Ordered zolpidem 10 mg oral tablet 1 tablet = 10 mg, By Mouth, Daily at bedtime, PRN for sleep, for 30 days, # 30 tablet, 0 Refills, Acute 04/11/23 9:06:00 EDT, 03/12/23 9:06:00 EDT, [facility], [facility] 157, cm, 12/08/22 14:27:00 EDT, Height, 145, kg, 08/29/22 20:13:00 EST, Dry... Start Date: 03/12/23 Stop Date: 04/11/23 Status: Ordered zolpidem 10 mg oral tablet [...] Team Personnel Name: Celestina Trinidad MD Position: [facility] Physician - Primary Care Member Role: PCP Address: Address: [address] [place] [id number] Name: Hemalatha Lucas RN Position: [facility] RN Member Role: Primary Care Nurse Name: Lauren Mack RN Position: [facility] AMB Nurse Member Role: Primary Care Nurse Name: Madelaine Riuz RN Position: [facility] RN Member Role: Primary Care Nurse Name: Lora Santiago RN Position: [facility] SN RN Member Role: Primary Care Nurse Name: Mayco Ro RN Position: [facility] RN Member Role: Primary Care Nurse Name: Heydi Potts RN Position: [facility] RN Member Role: Primary Care Nurse Name: Janice Romano LPN Position: [facility] RN Member Role: Primary Care Nurse Name: Nadya Low RN Position: [facility] RN Member Role: Primary Care Nurse Name: Mirna Greenfield RN Position: [facility] RN Member Role: Primary Care Nurse Name: Nessa Bonilla RN Position: [facility] Taker Off Braker Machine Member Role: Primary Care Nurse Care Team Related Persons Name: DINESH SARGENT Address: [address] [address] Name: BON DE Address: [address] [address]
--- OUTSIDE RECORDS SUMMARY | 2024-06-24 14:12 | XMS_ITS | Continuity of Care Document ---
Author Organization [facility] Address [address] [place] [address]- Care Team Providers Care Thermometer Production Worker Name Role Phone Vivi HENNING, Celestina Givens Primary Care Physician [place] [facility] [place] 03/30/24 [facility] [address] [place] [address]- Allergies, Adverse Reactions, Alerts No Known Allergies [...] 08/21/22 Given tetanus/diphtheria/pertussis, acel(Tdap) 7 08/13/12 Given EHUV-AcA-7eHBP 12y+ bivalent booster vax 06/14/22 Recorded SARS-CoV-2 mRNA (aalraqt-upsc-pzyjb) vax 02/14/22 Recorded SARS-CoV-2 (COVID-19) mRNA BNT-162b2 vac 05/06/21 Given SARS-CoV-2 (COVID-19) mRNA BNT-162b2 vac 11/04/20 Recorded SARS-CoV-2 (COVID-19) mRNA BNT-162b2 vac 10/14/20 Recorded pneumococcal 23-valent vaccine 8 04/07/19 Given 1Result Comment: screening negative 2Result Comment: [facility]# [id number] 3Result Comment: [05/25/2018] [facility] lot number [id number] exp 01/26/2019 [facility] [id number] 4Result Comment: [08/20/2017] [facility] 68036-631-32 5Admin Note: VIM dated 01/29/12 GIVEN TODAY 6Result Comment: [facility]# [id number] 7Admin Note: VIM dated 08/22/11 GIVEN TODAY 8Result Comment: [facility]#[id number] Medications acetaminophen 500 mg oral capsule 2 [...] 1 Refills, Soft Stop, 12/06/23 17:28:00 EDT, [facility]/pharmacy #5, Partial fill upon [...] 1 Refills, Maintenance, 03/28/24 11:20:00 EDT, [facility] 30, APPLY TO AFFECTED [...] Gm, 0 Refills, Maintenance, 02/28/21 16:31:00 EDT, [place], [facility]/pharmacy #2024, Partial fill upon patient request if the prescription is for... Start Date: 02/28/21 Status: Ordered FLUoxetine 10 mg oral capsule 1, capsule, By Mouth, Daily, INSTR:TO BE TAKEN WITH 20MG CAPSULES TO EQUAL 30MG DAILY, # 90 capsule, Refills 1, Maintenance, 01/25/24 9:11:00 EDT, Route to Pharmacy Electronically, [facility] STORE 38237, 157.5, cm, 01/22/24 10:31:00 EDT, Height, 145.9, kg,... Start Date: 01/25/24 Status: Ordered gabapentin 300 mg oral capsule 600 mg, 2, capsule, By Mouth, 3 times a day, # 180 capsule, Refills 3, Tot. Refills 3, Maintenance,08/25/22 22:35:00 EST, Route to Pharmacy Electronically, [facility]/pharmacy #2024, Partial fill upon [...] Refills, Maintenance, 12/28/23 16:17:00 EDT, [facility], 157.5, cm, 10/18/23 15:15:00 EDT, Height, 145.9, [...] tablet, 1 Refills, Maintenance, 03/28/24 7:37:00 EDT, [facility]/pharmacy #2025, 157.5, cm, 02/12/24 14:48:00 EDT, Height, 145.9, kg, :39:00 EDT, Dry Weight Start Date: 03/28/24 Status: Ordered metFORMIN 500 mg oral tablet, extended release 1 tablet = 500 mg, By Mouth, Daily, # 90 tablet, 1 Refills, Maintenance, 01/22/24 11:02:00 EDT, ER Tablet, [facility]/pharmacy #2025, Partial fill upon [...] tablet, 0 Refills, Maintenance, 03/07/24 17:13:00 EDT, [facility]/pharmacy #2025, Partial fill upon [...] Code MRI Safety Implantable Status Assigning Authority [id number] [id number] Unknown [id number] Unknown 08/26/24 Unknown Unknown Active GS1 Patient Care team information Care Team Personnel Name: Celestina Trinidad MD Position: [facility] Physician - Primary Care Member Role: PCP Address: Address: [address] [place] [id number] Name: Hemalatha Lucas RN Position: [facility] RN Member Role: Primary Care Nurse Name: Lauren Mack RN Position: [facility] Nurse Member Role: Primary Care Nurse Name: Madelaine Ruiz RN Position: [facility] RN Member Role: Primary Care Nurse Name: Lora Santiago RN Position: [facility] SN RN Member Role: Primary Care Nurse Name: Mayco Ro RN Position: [facility] RN Member Role: Primary Care Nurse Name: Heydi Potts RN Position: [facility] SN RN Member Role: Primary Care Nurse Name: Janice Romano LPN Position: [facility] RN Member Role: Primary Care Nurse Name: Nadya Low RN Position: [facility] RN Member Role: Primary Care Nurse Name: Mirna Greenfield RN Position: [facility] RN Member Role: Primary Care Nurse Name: Nessa Bonilla RN Position: [facility] Lithographic Photographer Member Role: Primary Care Nurse Care Team Related Persons Name: DINESH SARGENT Address: home [address] [place] [address] Name: BON DE Address: [address] [address]
--- OUTSIDE RECORDS SUMMARY | 2024-06-24 14:13 | XMS_ITS | Continuity of Care Document ---
Author Organization [facility] Address [address] [place] [address]- Care Team Providers Care Director Institution Name Role Phone Vivi HENNING, Celestina Givens Primary Care Physician [place] [facility] [place]24 [facility] [address] [place] [address]- Allergies, Adverse Reactions, Alerts No Known Allergies [...] 08/21/22 Given tetanus/diphtheria/pertussis, acel(Tdap) 7 08/13/12 Given PNXI-ZgH-6jGGR 12y+ bivalent booster vax 06/14/22 Recorded SARS-CoV-2 mRNA (rpvkipp-jxyc-zyoas) vax 02/14/22 Recorded SARS-CoV-2 (COVID-19) mRNA BNT-162b2 vac 05/06/21 Given SARS-CoV-2 (COVID-19) mRNA BNT-162b2 vac 11/04/20 Recorded SARS-CoV-2 (COVID-19) mRNA BNT-162b2 vac 10/14/20 Recorded pneumococcal 23-valent vaccine 8 04/07/19 Given 1Result Comment: screening negative 2Result Comment: [facility]# [id number] 3Result Comment: [05/25/2018] [facility] lot number [id number] exp 01/26/2019 [facility] 86629-818-32 4Result Comment: [08/20/2017] [facility] [id number] 5Admin Note: VIM dated 01/29/12 GIVEN TODAY 6Result Comment: [facility]# [id number] 7Admin Note: VIM dated 08/22/11 GIVEN TODAY 8Result Comment: [facility]#[id number] Medications acetaminophen 500 mg oral capsule 2 [...] Soft Stop, 12/06/23 17:28:00 EDT, [facility]/pharmacy #5, Partial fill upon patient request [...] EDT, Route to Pharmacy Electronically, [facility]/pharmacy #2024, Partial fill upon patient request if the presc... Start Date: 05/17/23 Stop Date: 05/17/24 Status: Ordered diclofenac 1% topical gel See Instructions, APPLY TO AFFECTED AREA 4 TIMES A DAY, # 100 Gm, 1 Refills, Maintenance, 11/07/23 7:48:00 EDT, [facility]/pharmacy #2024, 25, APPLY TO AFFECTED AREA 4 TIMES A DAY, 157.5, cm, 10/18/23 15:15:00 EDT, Height, 145.9, kg, 05/22/23 7:39:00 EDT, . Start Date: 11/07/23 Status: Ordered diclofenac 1% topical gel See Instructions, APPLY TO AFFECTED AREA 4 TIMES A DAY. NOT COVERED, # 100 Gm, 1 Refills, Maintenance, 02/01/24 13:44:00 EDT, [facility], 30, APPLY TO AFFECTED AREA 4 TIMES [...] 0 Refills, Maintenance, 02/28/21 16:31:00 EDT, [place], [facility]/pharmacy #5, Partial fill upon patient request if the prescription is for... Start Date: 02/28/21 Status: Ordered FLUoxetine 10 mg oral capsule 1, capsule, By Mouth, Daily, INSTR:TO BE TAKEN WITH 20MG CAPSULES TO EQUAL 30MG DAILY, # 90 capsule, Refills 1, Maintenance, 01/25/24 9:11:00 EDT, Route to Pharmacy Electronically, [facility], 157.5, cm, 01/22/24 10:31:00 EDT, Height, 145.9, [...] Refills, Maintenance, 12/28/23 16:17:00 EDT, [facility], 157.5, cm, 10/18/23 15:15:00 EDT, Height, 145.9, kg, 05/22/23 7:39:00 EDT, Dry Weight Start Date: 12/28/23 Status: Ordered meclizine 25 mg oral tablet See Instructions, PRN Dizziness, 1 tablet By Mouth 3 times a day, # 30 tablet, 0 Refills, Maintenance, 02/27/23 10:43:00 EDT, [facility]/pharmacy #2025, [...] Refills, Maintenance, 11/29/23 15:24:00 EDT, [facility]/pharmacy #2025, 157.5, cm, 10/18/23 1... Start Date: [...] Code MRI Safety Implantable Status Assigning Authority [id number] 731 Unknown [id number] Unknown 08/26/24 Unknown Unknown Active GS1 Patient Care team information Care Team Personnel Name: Celestina Trinidad MD Position: [facility] Physician - Primary Care Member Role: PCP Address: Address: [address] [place] [address] Name: Hemalatha Lucas RN [facility] Bonilla RN Position: [facility] Hospital Artistic Associate Member Role: Primary Care Nurse Care Team Related Persons Name: DINESH SARGENT Address: [address] [place] [address] Name: BON DE Address: home [address] [place] [address]
--- OUTSIDE RECORDS SUMMARY | 2024-06-24 14:13 | XMS_ITS | Continuity of Care Document ---
Author Organization [facility] Address [address] [place] [address]- Care Team Providers Care Comparator Operator Name Role Phone Vivi HENNING, Celestina Givens Primary Care Physician Encounter [facility] Date(s): 05/08/24 - 06/07/24 [facility] [address] [place] [address]- Allergies, Adverse Reactions, Alerts No Known Allergies [...] 08/21/22 Given tetanus/diphtheria/pertussis, acel(Tdap) 7 08/13/12 Given SWMJ-NnL-1pWYH 12y+ bivalent booster vax 06/14/22 Recorded SARS-CoV-2 mRNA (sbsunaa-buth-fjqjm) vax 02/14/22 Recorded SARS-CoV-2 (COVID-19) mRNA BNT-162b2 vac 05/06/21 Given SARS-CoV-2 (COVID-19) mRNA BNT-162b2 vac 11/04/20 Recorded SARS-CoV-2 (COVID-19) mRNA BNT-162b2 vac 10/14/20 Recorded pneumococcal 23-valent vaccine 8 04/07/19 Given 1Result Comment: screening negative 2Result Comment: [facility]# [id number] 3Result Comment: [05/25/2018] [facility] lot number [id number] exp 01/26/2019 [facility] [id number] 4Result Comment: [08/20/2017] [facility] 14834-466-88 5Admin Note: VIM dated 01/29/12 GIVEN TODAY 6Result Comment: [facility]# [id number] 7Admin Note: VIM dated 08/22/11 GIVEN TODAY 8Result Comment: [facility]#8660-1443-01 Medications acetaminophen 500 mg oral capsule 2 [...] 1 Refills, Soft Stop, 12/06/23 17:28:00 EDT, [facility]/pharmacy #5, Partial fill upon patient [...] 05/17/24 16:46:00 EDT, Route to Pharmacy Electronically, [facility]/pharmacy #2024, Partial fill upon patient request if the prescription is for a... Start Date: 05/17/24 Status: Ordered diclofenac 1% topical gel See Instructions, APPLY TO AFFECTED AREA 4 TIMES A DAY. NOT COVERED, # 100 Gm, 1 Refills, Maintenance, 04/22/24 15:15:00 EDT, [facility]/pharmacy #2024, 30, APPLY TO AFFECTED AREA 4 TIMES A DAY. NOT COVERED, 157.5, cm, 02/12/24 14:48:00 EDT, Height, 145.9, k... Start Date: 04/22/24 Status: Ordered diclofenac 1% topical gel See Instructions, APPLY TO AFFECTED AREA 4 TIMES A DAY, # 100 Gm, 1 Refills, Maintenance, 11/07/23 7:48:00 EDT, [facility]/pharmacy #2024, 25, APPLY TO AFFECTED [...] Gm, 0 Refills, Maintenance, 02/28/21 16:31:00 EDT, [place], [facility]/pharmacy #2025, Partial fill upon patient request if the prescription is for... Start Date: 02/28/21 Status: Ordered FLUoxetine 10 mg oral capsule 1, capsule, By Mouth, Daily, INSTR:TO BE TAKEN WITH 20MG CAPSULES TO EQUAL 30MG DAILY, # 90 capsule, Refills 1, Maintenance, 01/25/24 9:11:00 EDT, Route to Pharmacy Electronically, [facility] STORE 53542, 157.5, cm, 01/22/24 10:31:00 EDT, Height, 145.9, [...] tablet, 1 Refills, Maintenance, 12/28/23 16:17:00 EDT, [facility] STORE 09278, 157.5, cm, 10/18/23 15:15:00 EDT, Height, 145.9, [...] Code MRI Safety Implantable Status Assigning Authority [id number] 731 Unknown [id number] Unknown 08/26/24 Unknown Unknown Active GS1 Patient Care team information Care Team Personnel Name: Celestina Trinidad MD Position: [facility] Physician - Primary Care Member Role: PCP Address: Address: [address] [place] [address] Name: Hemalatha Lucas RN Position: [facility] RN Member Role: Primary Care Nurse Name: Lauren Mack RN Position: [facility] RN Member Role: Primary Care Nurse Name: Madelaine Ruiz RN Position: [facility] RN Member Role: Primary Care Nurse Name: Lora Santiago RN Position: [facility] SN RN Member Role: Primary Care Nurse Name: Mayco Ro RN Position: [facility] RN Member Role: Primary Care Nurse Name: Heydi Potts RN Position: [facility] SN RN Member Role: Primary Care Nurse Name: Janice Romano LPN Position: [facility] RN Member Role: Primary Care Nurse Name: Nadya Low RN Position: [facility] RN Member Role: Primary Care Nurse Name: Mirna Greenfield RN Position: [facility] RN Member Role: Primary Care Nurse Name: Nessa Bonilla RN Position: [facility] Change Control Coordinator Member Role: Primary Care Nurse Care Team Related Persons Name: ROSETTA, DINESH Address: home [address] [place] [address] Name: BON DE Address: home [address] [address]
--- OUTSIDE RECORDS SUMMARY | 2024-06-24 14:13 | XMS_ITS | Continuity of Care Document ---
Author Organization [facility] Address [address] [place] [address]- Care Team Providers Care Interior Assemblies Developer Prover Name Role Phone Vivi HENNING, Celestina Givens Primary Care Physician [place] [facility] [place] 12/11/23 - 01/10/24 [facility] [address] [place] [address]- Allergies, Adverse Reactions, Alerts No Known Allergies [...] 08/21/22 Given tetanus/diphtheria/pertussis, acel(Tdap) 7 08/13/12 Given QKOM-GyS-8yTYR 12y+ bivalent booster vax 06/14/22 Recorded SARS-CoV-2 mRNA (nnclabb-rytp-zlowu) vax 02/14/22 Recorded SARS-CoV-2 (COVID-19) mRNA BNT-162b2 vac 05/06/21 Given SARS-CoV-2 (COVID-19) mRNA BNT-162b2 vac 11/04/20 Recorded SARS-CoV-2 (COVID-19) mRNA BNT-162b2 vac 10/14/20 Recorded pneumococcal 23-valent vaccine 8 04/07/19 Given 1Result Comment: screening negative 2Result Comment: [facility]# 54071-251-04 3Result Comment: [05/25/2018] [facility] lot number [id number] exp 01/26/2019 [facility] 51493-449-89 4Result Comment: [08/20/2017] [facility] 23002-790-08 5Admin Note: VIM dated 01/29/12 GIVEN TODAY 6Result Comment: [facility]# [id number] 7Admin Note: VIM dated 08/22/11 GIVEN TODAY 8Result Comment: [facility]#[id number] Medications acetaminophen 500 mg oral capsule 2 [...] Refills, Soft Stop, 12/06/23 17:28:00 EDT, [facility]/pharmacy #5, Partial fill upon patient [...] 16:45:00 EDT, Route to Pharmacy Electronically, [facility]/pharmacy #2024, Partial fill upon patient request if the presc... Start Date: 05/17/23 Stop Date: 05/17/24 Status: Ordered diclofenac 1% topical gel See Instructions, APPLY TO AFFECTED AREA 4 TIMES A DAY, # 100 Gm, 1 Refills, Maintenance, 11/07/23 7:48:00 EDT, [facility]/pharmacy #2024, 25, APPLY TO AFFECTED [...] Gm, 0 Refills, Maintenance, 02/28/21 16:31:00 EDT, [place], [facility]/pharmacy #2024, Partial fill upon patient request if the prescription is for... Start Date: 02/28/21 Status: Ordered FLUoxetine 10 mg oral capsule 10 mg, 1, capsule, By Mouth, Daily, to be taken with 20mg capsules to equal 30mg daily, # 90 capsule, Refills 1, Tot. Refills 1, Maintenance, 07/31/23 19:01:00 EST, Route to Pharmacy Electronically, [facility]/pharmacy #2024, Partial fill upon patient reques... Start Date: 07/31/23 Status: Ordered FLUoxetine 20 mg oral capsule 1, capsule, By Mouth, Daily, # 90 capsule, Refills 1, Tot. Refills 1, Maintenance, 07/31/23 19:01:00 EST, Route to Pharmacy Electronically, [facility]/pharmacy #2024, 157.5, cm, 07/13/23 9:57:00 EST, Height, 145.9, kg, 05/22/23 7:39:00 EDT, Dry Weight Start Date: 07/31/23 Status: Ordered gabapentin 300 mg oral capsule 600 mg, 2, capsule, By Mouth, 3 times a day, # 180 capsule, Refills 3, Tot. Refills 3, Maintenance,08/25/22 22:35:00 EST, Route to Pharmacy Electronically, [facility]/pharmacy #2024, Partial fill upon patient [...] tablet, 1 Refills, Maintenance, 12/28/23 16:17:00 EDT, [facility] STORE 52634, 157.5, cm, 10/18/23 15:15:00 EDT, Height, 145.9, kg, 05/22/23 7:39:00 EDT, Dry Weight Start Date: 12/28/23 Status: Ordered meclizine 25 mg oral tablet See Instructions, PRN Dizziness, 1 tablet By Mouth 3 times a day, # 30 tablet, 0 Refills, Maintenance, 02/27/23 10:43:00 EDT, [facility]/pharmacy #2025, Partial fill upon patient [...] Refills, Maintenance, 10/24/23 11:39:00 EDT, ER Tablet, [facility]/pharmacy #2025, Partial fill upon patient [...] Code MRI Safety Implantable Status Assigning Authority [id number] [id number] Unknown [id number] Unknown 08/26/24 Unknown Unknown Active GS1 Patient Care team information Care Team Personnel Name: Celestina Trinidad MD Position: [facility] Physician - Primary Care Member Role: PCP Address: Address: [address] [place] [address] Name: Hemalatha Lucas RN Position: [facility] RN Member Role: Primary Care Nurse Name: Lauren Mack RN Position: [facility] AMB Nurse Member Role: Primary Care Nurse Name: Madelaine Ruiz RN Position: [facility] RN Member Role: Primary Care Nurse Name: Lora Santiago RN Position: [facility] SN RN Member Role: Primary Care Nurse Name: Mayco Ro RN Position: [facility] RN Member Role: Primary Care Nurse Name: Heydi Potts RN Position: [facility] SN RN Member Role: Primary Care Nurse Name: Janice Romano LPN Position: [facility] RN Member Role: Primary Care Nurse Name: Nadya Low RN Position: [facility] RN Member Role: Primary Care Nurse Name: Mirna Greenfield RN Position: [facility] RN Member Role: Primary Care Nurse Name: Nessa Bonilla RN Position: [facility] Rehabilitation Inspector Member Role: Primary Care Nurse Care Team Related Persons Name: DINESH SARGENT Address: home [address] [place] [address] Name: BON DE Address: home [address] [address]
--- OUTSIDE RECORDS SUMMARY | 2024-06-24 14:13 | XMS_ITS | Continuity of Care Document ---
Author Organization [facility] Address [address] [place] [address]- Care Team Providers Care Waste Machine Operator Name Role Phone Vivi HENNING, Celestina Givens Primary Care Physician Encounter [facility] Date(s): 09/08/22 - 10/08/22 [facility] [address] [place] [address]- Allergies, Adverse Reactions, Alerts No Known Allergies Immunizations Given and Recorded Vaccine Date Status Refusal Reason tetanus/diphtheria/pertussis, acel(Tdap) 1 08/21/22 Given tetanus/diphtheria/pertussis, acel(Tdap) 2 08/13/12 Given PWPN-FwL-6rPUS 12y+ bivalent booster vax 06/14/22 Recorded influenza [...] inactivated 6 07/31/12 Gi [facility]i SARS-CoV-2 mRNA (mmmpkjs-casi-dszej) vax 02/14/22 Recorded SARS-CoV-2 (COVID-19) mRNA BNT-162b2 vac 05/06/21 Given SARS-CoV-2 (COVID-19) mRNA BNT-162b2 vac 11/04/20 Recorded SARS-CoV-2 (COVID-19) mRNA BNT-162b2 vac 10/14/20 Recorded pneumococcal 23-valent vaccine 7 04/07/19 Given 1Result Comment: [facility]# 58694-310-26 2Admin Note: VIM dated 08/22/11 GIVEN TODAY 3Result Comment: [facility]# 32399-888-69 4Result Comment: [05/25/2018] [facility] lot number [id number] exp 01/26/[address] [facility] 76284-225-11 5Result Comment: [08/20/2017] [facility] 39991-026-09 6Admin Note: VIM dated 01/29/12 GIVEN TODAY 7Result Comment: [facility]#[id number] Medications acetaminophen 500 mg oral capsule 2 [...] Stop, 04/10/2215:14:00 EDT, Route to Pharmacy Electronically, [id number], [facility]/pharmacy #2025, 158, cm, 04/10/22 14:56:00 EDT, Height, 143,... Start Date: 04/10/22 Status: Ordered amLODIPine 5 mg oral tablet 1 tablet, By Mouth, Daily, # 30 tablet, 5 Refills, Maintenance, 08/24/22 20:08:00 EST, [facility], 159, cm, 08/21/22 11:38:00 EST, Height, 143, [...] 11:06:00 EST, Aerosol, Route to Pharmacy Electronically, [id number]... Start Date: 09/12/22 Status: Ordered cilostazol 50 [...] 09/22/22 7:28:00 EST, [facility]/pharmacy #2025, 25, [...] Pharmacy Electronically, [facility]/pharmacy #202, Partial fill upon patient request if the p... Start Date: 08/31/22 Status: Ordered Flonase 50 mcg/inh nasal spray See Instructions, 2 sprays Nares twice daily x 1 week, then once daily x 1-2 weeks until symptoms improve, # 16 Gm, 0 Refills, Maintenance, 02/28/21 16:31:00 EDT, [place], [facility]/pharmacy #2025, Partial fill [...] Pharmacy Electronically, [facility] STORE 48956, 158, cm, 06/09/22 11:21:00 EST, Height, 143, kg... Start Date: 06/13/22 Status: Ordered furosemide 20 mg oral tablet 1, tablet, By Mouth, Daily, MAY REPEAT IF NEEDED IN 2 HOURS, # 30 tablet, Refills 0, Maintenance, 10/06/22 15:44:00 EST, Route to Pharmacy Electronically, [facility] STORE 65473, 157, cm, 09/13/22 15:58:00 EST, Height, 145, [...] 11/01/22 17:14:00 EDT, 10/02/22 17:14:00 EST, Tablet, [facility]/pharmacy#2024, 157, [...] Team Personnel Name: Celestina Trinidad MD Position: [facility] Primary Care Physician Member Role: PCP Address: Address: [address] [place] [id number] Name: Hemalatha Lucas RN Position: [facility] [...] Name: Heydi Potts RN Position: [facility] RN Member Role: Primary Care Nurse Name: Janice Romano LPN Position: [facility] RN Member Role: Primary Care Nurse Name: Nadya Low RN Position: [facility] RN Member Role: Primary Care Nurse Name: Mirna Greenfield RN Position: [facility] RN Member Role: Primary Care Nurse Name: Nessa Bonilla RN Position: [facility] Hospital Sheep Or Calf Grader Member Role: Primary Care Nurse Care Team Related Persons Name: DINESH SARGENT Address: home [address] [place] [address] Name: BON DE Address: home [address] [address]
--- OUTSIDE RECORDS SUMMARY | 2024-06-24 14:13 | XMS_ITS | Continuity of Care Document ---
Author Organization [facility] Address [address] [place] [address]- Care Team Providers Care Creel Selector Name Role Phone Vivi HENNING, Celestina Givens Primary Care Physician Encounter [facility] Date(s): 07/31/23 - 08/30/23 [facility] [address] [place], [place] [address] Allergies, Adverse Reactions, Alerts [...] 08/21/22 Given tetanus/diphtheria/pertussis, acel(Tdap) 7 08/13/12 Given [id number] 12y+ bivalent booster vax 06/14/22 Recorded SARS-CoV-2 mRNA (ysrmfzt-[id number]-[id number]) vax 02/14/22 Recorded SARS-CoV-2 (COVID-19) mRNA BNT-162b2 vac 05/06/21 Given SARS-CoV-2 (COVID-19) mRNA BNT-162b2 vac 11/04/20 Recorded SARS-CoV-2 (COVID-19) mRNA BNT-162b2 vac 10/14/20 Recorded pneumococcal 23-valent vaccine 8 04/07/19 Given 1Result Comment: screening negative 2Result Comment: formerly named [facility]# [id number] 3Result Comment: [05/25/2018] [facility] lot number [id number] exp 01/26/2019 formerly named [facility] [id number] 4Result Comment: [08/20/2017] formerly named [facility] [phone] 5Admin Note: VIM dated 01/29/12 GIVEN TODAY 6Result Comment: [facility]# [id number] 7Admin Note: VIM dated 08/22/11 GIVEN TODAY 8Result Comment: [facility]#[id number] Medications acetaminophen 500 mg oral capsule 2 [...] 05/17/23 16:45:00 EDT, Route to Pharmacy Electronically, [facility]/pharmacy #202, Partial fill upon patient request if the presc... Start Date: 05/17/23 Stop Date: 05/17/24 Status: Ordered diclofenac 1% topical gel See Instructions, APPLY TOPICALLY 4 TIMES A DAY, # 100 Gm, 1 Refills, Maintenance, 06/05/23 10:25:00 EST, [facility]/pharmacy #2024, 50, APPLY TOPICALLY 4 TIMES A DAY, 157.5, cm, 05/22/23 7:39:00 EDT, Height, 145.9, kg, 05/22/23 7:39:00 EDT, Dry Weight Start Date: 06/05/23 Status: Ordered Dulera 50 mcg-5 mcg/inh inhalation [...] Gm, 0 Refills, Maintenance, 02/28/21 16:31:00 EDT, [place], [facility], Partial fill upon patient request [...] 07/31/23 19:01:00 EST, Route to Pharmacy Electronically, [facility]/pharmacy #2024, 157.5, cm, 07/13/23 9:57:00 EST, Height, 145.9, kg, 05/22/23 7:39:00 EDT, Dry Weight Start Date: 07/31/23 Status: Ordered gabapentin 300 mg oral capsule 600 mg, 2, capsule, By Mouth, 3 times a day, # 180 capsule, Refills 3, Tot. Refills 3, Maintenance,08/25/22 22:35:00 EST, [facility] Partial fill upon patient request if [...] tablet, 2 Refills, Maintenance, 02/27/23 7:25:00 EDT, [facility] STORE [facility], 157, cm, 12/08/22 14:27:00 EDT, Height, 145, kg, 08/29/22 20:13:00 EST, Dry... Start Date: 02/27/23 Status: Ordered levothyroxine 150 mcg (0.15 mg) oral tablet 1 tablet = 150 mcg, By Mouth, Daily, # 90 tablet, 0 Refills, Maintenance, 07/15/23 17:38:00 EST, Tablet, [facility]/pharmacy #2024, Partial fill [...] Refills, Maintenance, 07/28/23 10:21:00 EST, [facility], 157.5, cm, 07/13/23 9:57:00 EST, Height, 145.9, [...] ok, # 81 tablet, 0 Refills, Maintenance, 08/05/23 12:22:00 EST, [facility], 157.5, cm, 07/13/23 9:57:00 EST, [...] tablet, 0 Refills, Maintenance, 08/09/23 20:17:00 EST, [facility]/pharmacy #2024, Partial fill [...] Code MRI Safety Implantable Status Assigning Authority [id number] Unknown [id number] Unknown 08/26/24 Unknown Unknown Active GS1 Patient Care team information Care Team Personnel Name: Celestina Trinidad MD Position: [facility] Physician - Primary Care Member Role: PCP Address: Address: [address] [place] [address]- Name: Hemalatha Lucas RN Position: [facility] RN Member Role: Primary Care Nurse Name: Lauren Mack RN Position: [facility] AMB Nurse Member Role: Primary Care Nurse Name: Madelaine Ruiz RN Position: [facility] RN Member Role: Primary Care Nurse Name: Lora Santiago RN Position: [facility] SN RN Member Role: [...] Nessa Bonilla RN Position: [facility] [employer] Miner Blasting Member Role: Primary Care Nurse Care Team Related Persons Name: DINESH SARGENT Address: home [address] [place] [address] Name: BON DE Address: home [address] [place] [address]
--- OUTSIDE RECORDS SUMMARY | 2024-06-24 14:13 | XMS_ITS | Continuity of Care Document ---
Author Organization [facility] Address [address] [place] [address]- Care Team Providers Care Admissions Officer Name Role Phone Vivi HENNING, Celestina Givens Primary Care Physician [facility] Date[facility]s): 04/25/24 - 05/25/24 [facility] [address] [place] [address]- Allergies, Adverse Reactions, Alerts No Known Allergies [...] 08/21/22 Given tetanus/diphtheria/pertussis, acel(Tdap) 7 08/13/12 Given [id number] 12y+ bivalent booster vax 06/14/22 Recorded SARS-CoV-2 mRNA ([id number]-sskho) vax 02/14/22 Recorded SARS-CoV-2 (COVID-19) mRNA BNT-162b2 vac 05/06/21 Given SARS-CoV-2 (COVID-19) mRNA BNT-162b2 vac 11/04/20 Recorded SARS-CoV-2 (COVID-19) mRNA BNT-162b2 vac 10/14/20 Recorded pneumococcal 23-valent vaccine 8 04/07/19 Given 1Result Comment: screening negative 2Result Comment: [facility]# [id number] 3Result Comment: [05/25/2018] [facility] lot number [id number] exp 01/26/2019 [facility] [id number] 4Result Comment: [08/20/2017] [facility] [id number] 5Admin Note: VIM dated 01/29/12 GIVEN TODAY 6Result Comment: [facility]# [id number] 7Admin Note: VIM dated 08/22/11 GIVEN TODAY 8Result Comment: [facility]#[id number] Medications acetaminophen 500 mg oral capsule 2 [...] 1 Refills, Soft Stop, 12/06/23 17:28:00 EDT, [facility]/pharmacy #5, Partial fill upon patient [...] 05/17/24 16:46:00 EDT, Route to Pharmacy Electronically, [facility]/pharmacy #2024, Partial fill upon patient request if the prescription is for a... Start Date: 05/17/24 Status: Ordered diclofenac 1% topical gel See Instructions, APPLY TO AFFECTED AREA 4 TIMES A DAY. NOT COVERED, # 100 Gm, 1 Refills, Maintenance, 04/22/24 15:15:00 EDT, [facility]/pharmacy #2024, 30, APPLY TO AFFECTED AREA 4 TIMES A DAY. NOT COVERED, 157.5, cm, 02/12/24 14:48:00 EDT, Height, 145.9, k... Start Date: 04/22/24 Status: Ordered diclofenac 1% topical gel See Instructions, APPLY TO AFFECTED AREA 4 TIMES A DAY, # 100 Gm, 1 Refills, Maintenance, 11/07/23 7:48:00 EDT, [facility]/pharmacy #2024, 25, APPLY TO AFFECTED AREA [...] Gm, 0 Refills, Maintenance, 02/28/21 16:31:00 EDT, [place], [facility]/pharmacy #2025, Partial fill upon patient request if the prescription is for... Start Date: 02/28/21 Status: Ordered FLUoxetine 10 mg oral capsule 1, capsule, By Mouth, Daily, INSTR:TO BE TAKEN WITH 20MG CAPSULES TO EQUAL 30MG DAILY, # 90 capsule, Refills 1, Maintenance, 01/25/24 9:11:00 EDT, Route to Pharmacy Electronically, [facility], 157.5, cm, 01/22/24 10:31:00 EDT, Height, 145.9, [...] tablet, 1 Refills, Maintenance, 12/28/23 16:17:00 EDT, [facility], 157.5, cm, 10/18/23 15:15:00 EDT, Height, 145.9, [...] Tot. Refills 0, Maintenance, Pain , Severe, 05/08/24 17:41:00EDT, [facility] Start Date: 05/08/24 Status: Ordered ROLLATOR WALKER with seat and [...] Code MRI Safety Implantable Status Assigning Authority [id number] Unknown [id number] Unknown 08/26/24 Unknown Unknown Active GS1 Patient Care team information Care Team Personnel Name: Celestina Trinidad MD Position: [facility] Physician - Primary Care Member Role: PCP Address: Address: [address] [place] [address] Name: Hemalatha Lucas RN Position: [facility] RN Member Role: Primary Care Nurse Name: Lauren Mack RN Position: [facility] RN Member Role: Primary Care Nurse Name: Madelaine Ruiz RN Position: [facility] RN Member Role: Primary Care Nurse Name: Lora Santiago RN Position: [facility] SN RN Member Role: Primary Care Nurse Name: Mayco Ro RN Position: [facility] RN Member Role: Primary Care Nurse Name: Hedyi Potts RN Position: [facility] SN RN [...] RN Position: [facility] Embedded Engineer Member Role: Primary Care Nurse Care Team Related Persons Name: ROSETTA, DINESH Address: home [address] [place] [address] Name: BON DE Address: home [address] [address]
--- OUTSIDE RECORDS SUMMARY | 2024-06-24 14:13 | XMS_ITS | Continuity of Care Document ---
Author Organization [facility] Address [address] [place] [address]- Care Team Providers Care Curtains And Draperies Salesperson Name Role Phone Noe SUPERVISOR RUBBER COVERING, Mónica Graham Primary Care Physician Unamonico ilable [facility]counter [facility] Date(s): 03/01/22 - 03/31/22 [facility] [address] [place] [address]- Allergies, Adverse Reactions, Alerts No Known Allergies [...] tetanus/diphtheria/pertussis, acel(Tdap) 6 08/13/12 Given 1Result Comment: [facility]# [id number] 2Result Comment: [05/25/2018] [facility] lot number [id number] exp 01/26/2019 [facility] [id number] 3Result Comment: [08/20/2017] [facility] [phone] 4Admin Note: VIM dated 01/29/12 GIVEN TODAY 5Result Comment: [facility]#[id number] 6Admin Note: VIM dated 08/22/11 GIVEN TODAY [...] Stop, 03/02/2212:01:00 EDT, Route to Pharmacy Electronically, [id number], [facility]/pharmacy #2024, 158, cm, 03/02/22 11:38:00 EDT, Height, 143,... Start Date: 03/02/22 Status: Ordered Compression Stockings See Instructions, # 2 each, Refills 2, Tot. Refills 2, Maintenance, surgical, calf length 20-30 mm Hg Dx: venous insufficiency, 11/26/19 14:34:00 EDT, Compound Start Date: 11/26/19 Status: Ordered diclofenac 1% topical gel See Instructions, APPLY TOPICALLY 4 TIMES A DAY, # 100 Gm, 1 Refills, 09/19/21 12:51:00 EST, [facility]/pharmacy #5, 25, APPLY TOPICALLY 4 TIMES A DAY, 160.02, cm, 07/25/21 16:20:00 EST, Height, 143, kg,01/04/21 10:42:00 EDT, Dry Weight Start Date: 09/19/21 Status: Ordered Flonase 50 mcg/inh nasal spray See Instructions, 2 sprays Nares twice daily x 1 week, then once daily x 1-2 weeks until symptoms improve, # 16 Gm, 0 Refills, Maintenance, 02/28/21 16:31:00 EDT, [place], [facility]/pharmacy #2025, Partial fill upon patient request if the prescription is for... Start Date: 02/28/21 Status: Ordered FLUoxetine 10 mg oral capsule 10 mg, 1, capsule, By Mouth, Daily, Take with 20mg capsule for total of 30mg daily, # 90 capsule, Refills 1, Tot. Refills 1, Maintenance, 03/11/22 11:03:00 EDT, Route to Pharmacy Electronically, [facility]/pharmacy #2025, Partial fill upon patient request if... Start Date: 03/11/22 Status: Ordered FLUoxetine 20 mg oral capsule 20 mg, 1, capsule, By Mouth, Daily, Take with Fluoxetine 10mg for a total of 30mg, # 90 capsule, Refills 1, Tot. Refills 1, Maintenance, 12/30/21 12:34:00 EDT, Route to Pharmacy Electronically, [facility]/pharmacy #2025, replacing 10mg dose, 160.02, cm, 10/28... Start Date: 12/30/21 Status: Ordered fluticasone-vilanterol 100 mcg-25 mcg/inh inhalation powder 1 puffs, Inhalation, Every 24 hours, rinse mouth and throat after use, j45.40, # 1 each, 11 Refills, Maintenance, 03/10/22 12:51:00 EDT, [place], [facility]/pharmacy #2024, Partial fill upon patient request if the prescription is for a schedule II opioid drug... Start Date: 03/10/22 Status: Ordered levothyroxine 0.137 mg oral tablet See Instructions, TAKE 1 TABLET BY MOUTH ON DAYS 1-6, THEN TAKE 2 TABLETS BY MOUTH ON DAY 7, # 96 tablet, 1 Refills, [facility] STORE 16975, 160.02, cm, 10/04/21 10:38:00 EST, Height, 143, [...]
--- OUTSIDE RECORDS SUMMARY | 2024-06-24 14:13 | XMS_ITS | Continuity of Care Document ---
Author Organization [facility] Address [address] [id number]- Care Team Providers Care Diabetes Education Coordinator Name Role Phone Kareen HENNING, Patrick Graham Primary Care Physician [facility] Date[facility]s): 11/26/19 - 12/26/19 [place] [id number] [address]- [place] Attending Physician: Calixto Beltran Admitting Physician: Calixto Beltran Referring Physician: AdmCalixto hernandez Allergies, Adverse Reactions, Alerts Substance Reaction Severity [...] [facility]# [id number] 2Result Comment: [05/25/2018] [facility] lot number [id number] exp 01/26/[address] [facility] [id number] 3Result Comment: [08/20/2017] [facility] [id number] 4Admin Note: VIM dated 01/29/12 GIVEN TODAY 5Result Comment: [facility]#[id number] 6Admin Note: VIM dated 08/22/11 GIVEN TODAY [...] PUFFS EVERY 6 HOURS NEEDED FOR WHEEZE, [facility]/pharmacy #2024 Start Date: 05/27/19 Status: Ordered diclofenac 1% topical gel 1 applicator, Topically, 4 times a day, # 100 Gm, 0 Refills, Maintenance, 08/22/19 12:32:00 EST, Gel, [facility]/pharmacy #2024, 161, cm, 08/12/19 12:43:00 EST, Height Start Date: 08/22/19 Status: Ordered FLUoxetine 20 mg oral capsule 20 mg, 1, capsule, By Mouth, Daily, # 30 capsule, Refills 4, Tot. Refills 4, Maintenance, 08/30/19 20:34:00 EST, Route to Pharmacy Electronically, [facility]/pharmacy #2024, replacing 10mg dose, 161, cm, 08/12/19 12:43:00 EST, Height Start Date: 08/30/19 Status: Ordered levothyroxine 125 mcg (0.125 mg) oral tablet 1 tablet = 125 mcg, By Mouth, Daily, # 30 tablet, 5 Refills, Maintenance, 11/11/19 14:50:00 EDT, Tablet, [facility]/pharmacy #2024, 161, cm, 10/07/19 9:57:00 EDT, Height Start Date: 11/11/19 Status: Ordered meloxicam 15 mg oral tablet 1 tablet = 15 mg, By Mouth, Daily, Take w food., # 30 tablet, 2 Refills, Maintenance, 10/06/19 15:04:00 EDT, Tablet, [facility]/pharmacy #2024, Labs needed for further refills, 161, cm, 08/12/19 12:43:00 EST, Height Start Date: 10/06/19 Status: Ordered tiZANidine 2 mg oral tablet 2 mg, 1, tablet, By Mouth, Daily at bedtime, PRN, # 14 tablet, Refills 0, Tot. Refills 0, Maintenance, as needed for muscle spasm, 08/04/19 17:54:00 EST, Route to Pharmacy Electronically, [facility]/pharmacy #2025, 161, cm, 08/04/19 14:44:00 EST, Height Start Date: 08/04/19 Stop Date: 08/18/19 Status: Ordered traMADol 50 mg oral tablet 2 tablet = 100 mg, By Mouth, Every 12 hours, as needed for pain masspat checked, # 120 tablet, 2 Refills, Maintenance, 11/04/19 6:31:00 EDT, [facility]/pharmacy #2025, 161, cm, 10/07/19 9:57:00 EDT, Height Start Date: 11/04/19 Stop Date: 02/02/20 Status: Ordered zolpidem 10 mg oral tablet 1 tablet = 10 mg, By Mouth, Daily at bedtime, PRN for sleep, for 30 days, masspat check may fill less, # 30 tablet, 3 Refills, Acute 04/17/20 12:28:00 EDT, 12/19/19 12:28:00 EDT, Tablet, [facility]/pharmacy#5, 161, cm, 10/07/19 9:57:00 EDT, Height Start [...]
--- OUTSIDE RECORDS SUMMARY | 2024-06-24 14:13 | XMS_ITS | Continuity of Care Document ---
Author Organization [facility] Address [address] [place] [address]- Care Team Providers Care Machine Operator Replanter Name Role Phone Florentino AHN, Elder Hannah Primary Care Physician [facility] Date[facility]): 05[facility]20 - 05/20/20 [facility] [address] [place] [address]- [facility] Encounter Diagnosis Acquired hypothyroidism(Discharge Diagnosis) - 05/13/20 Mild recurrent major depression(Discharge Diagnosis) - 05/13/20 Asthma(Discharge Diagnosis) - 05/13/20 Shoulder arthritis(Discharge Diagnosis) - 05/13/20 Attending Physician: Patrick Mathur MD Allergies, Adverse Reactions, Alerts Substance Reaction Severity Status NKA Active Immunizations Given and Recorded Vaccine Date Status Refusal Reason influenza virus vaccine, inactivated 1 05/27/19 Gi hali influenza virus vaccine, inactivated 2 05/25/18 Gi hail influenza virus vaccine, inactivated 3 08/20/17 Gi hali influenza virus vaccine, inactivated 05/17/16 Give n influenza virus vaccine, inactivated 08/11/15 Give n influenza virus vaccine, inactivated 4 07/31/12 Gi hali pneumococcal 23-valent vaccine 5 04/07/19 Given tetanus/diphtheria/pertussis, acel(Tdap) 6 08/13/12 Given 1Result Comment: [facility]# [id number] 2Result Comment: [05/25/2018] [facility] lot number [id number] exp 01/26/2019 [facility] [id number] 3Result Comment: [08/20/2017] [facility] [id number] 4Admin Note: VIM dated 01/29/12 GIVEN TODAY 5Result Comment: [facility]#[id number] 6Admin Note: VIM dated 08/22/11 GIVEN TODAY [...] PUFFS EVERY 6 HOURS NEEDED FOR WHEEZE, [facility]/pharmacy #2024 Start Date: 05/27/19 Status: Ordered diclofenac 1% topical gel 1 applicator, Topically, 4 times a day, # 100 Gm, 0 Refills, Maintenance, 02/18/20 11:51:00 EDT, Gel, [facility]/pharmacy #2024, 161, cm, 01/08/20 13:51:00 EDT, Height Start Date: 02/18/20 Status: Ordered FLUoxetine 20 mg oral capsule 20 mg, 1, capsule, By Mouth, Daily, # 30 capsule, Refills 5, Tot. Refills 5, Maintenance, 05/13/20 9:34:00 EDT, Route to Pharmacy Electronically, [facility]/pharmacy #2024, replacing 10mg dose, 161, cm, 05/13/20 8:28:00 EDT, Height Start Date: 05/13/20 Status: Ordered levothyroxine 125 mcg (0.125 mg) oral tablet 1 tablet = 125 mcg, By Mouth, Daily, # 30 tablet, 5 Refills, Maintenance, 05/13/20 9:34:00 EDT, Tablet, [facility], 161, cm, 05/13/20 8:28:00 EDT, Height Start Date: 05/13/20 Status: Ordered meloxicam 15 mg oral tablet 1 tablet = 15 mg, By Mouth, Daily, Take w food., # 30 tablet, 1 Refills, Maintenance, 05/10/20 12:59:00 EDT, Tablet, [facility]/pharmacy #2024, Labs needed for further refills, [...] 08/04/19 17:54:00 EST, Route to Pharmacy Electronically, [facility]/pharmacy #2025, 161, cm, 08/04/19 14:44:00 EST, Height Start Date: 08/04/19 Stop Date: 08/18/19 Status: Ordered traMADol 50 mg oral tablet 2 tablet = 100 mg, By Mouth, Every 12 hours, as needed for pain masspat checked, # 120 tablet, 2 Refills, Maintenance, 05/13/20 9:34:00 EDT, [facility]/pharmacy #5, 161, cm, 05/13/20 8:28:00 EDT, Height Start Date: 05/13/20 Stop Date: 08/11/20 Status: Ordered zolpidem 10 mg oral tablet 1 tablet = 10 mg, By Mouth, Daily at bedtime, PRN for sleep, for 30 days, masspat check may fill less, # 30 tablet, 3 Refills, Acute 09/10/20 9:34:00 EST, 05/13/20 9:34:00 EDT, Tablet, [facility]/pharmacy #5, 161, cm, 05/13/20 8:28:00 EDT, Height [...] Clinical Service Informant Acquired hypothyroidism Discharge Diagnosis 05/13/20 Mild recurrent major depression Discharge Diagnosis 05/13/20 Asthma Discharge Diagnosis 05/13/20 Shoulder arthritis Discharge Diagnosis 05/13/20 Vital Signs Most recent to oldest [Reference Range]: 1 Height 161 cm (05/13/20 8:28 AM) Social History Social History Type Response Smoking Status Current every day oliva weinberg; Tobacco user in household: No; Type: Cigarettes; Tobacco use times per day: 1/2 ppd; entered on: 07/08/15 Sex
--- OUTSIDE RECORDS SUMMARY | 2024-06-24 14:13 | XMS_ITS | Continuity of Care Document ---
Author Organization [facility] Address [address] [place] [address]- Care Team Providers Care It Recruiter Name Role Phone Vivi HENNING, Celestina Givens Primary Care Physician [facility] - 03/29/23 [facility] [address] [place] [address]- Allergies, Adverse Reactions, Alerts No Known Allergies Immunizations Given and Recorded Vaccine Date Status Refusal Reason tetanus/diphtheria/pertussis, acel(Tdap) 1 08/21/22 Given tetanus/diphtheria/pertussis, acel(Tdap) 2 08/13/12 Given OFPU-ZcG-6fJHI 12y+ bivalent booster vax 06/14/22 Recorded influenza [...] inactivated 6 07/31/12 Gi hali SARS-CoV-2 mRNA (zedjajk-rvww-hcfwq) vax 02/14/22 Recorded SARS-CoV-2 (COVID-19) mRNA BNT-162b2 vac 05/06/21 Given SARS-CoV-2 (COVID-19) mRNA BNT-162b2 vac 11/04/20 Recorded SARS-CoV-2 (COVID-19) mRNA BNT-162b2 vac 10/14/20 Recorded pneumococcal 23-valent vaccine 7 04/07/19 Given 1Result Comment: [facility]# [id number] 2Admin Note: VIM dated 08/22/11 GIVEN TODAY 3Result Comment: [facility]# [id number] 4Result Comment: [05/25/2018] [employer] lot number [id number] exp 01/26/2019 [facility] [phone] 5Result Comment: [08/20/2017] [facility] [id number] 6Admin Note: VIM dated 01/29/12 GIVEN TODAY 7Result Comment: [facility]#[id number] Medications acetaminophen 500 mg oral capsule 2 [...] Stop, 04/10/2215:14:00 EDT, Route to Pharmacy Electronically, [id number], [facility]/pharmacy #2025, 158, cm, 04/10/22 14:56:00 [...] 1 Refills, Maintenance, 01/08/23 9:36:00EDT, [facility], 50, APPLY TOPICALLY 4 TIMES A DAY, [...] Gm, 0 Refills, Maintenance, 02/28/21 16:31:00 EDT, [place], [facility]/pharmacy #2024, Partial fill upon patient request if the prescription is for... Start Date: 02/28/21 Status: Ordered FLUoxetine 10 mg oral capsule 10 mg, 1, capsule, By Mouth, Daily, to be taken with 20mg capsules to equal 30mg daily, # 90 capsule, Refills 0, Tot. Refills 0, Maintenance, 01/18/23 9:13:00 EDT, Route to Pharmacy Electronically, [facility]/pharmacy #3125, Partial fill upon patient request... Start Date: 01/18/23 Status: Ordered FLUoxetine 20 mg oral capsule 1, capsule, By Mouth, Daily, # 30 capsule, Refills 0, Tot. Refills 0, Maintenance, 12/29/22 15:11:00 EDT, Print Requisition Start Date: 12/29/22 Status: Ordered gabapentin 300 mg oral capsule 600 mg, 2, capsule, By Mouth, 3 times a day, # 180 capsule, Refills 3, Tot. Refills 3, Maintenance,08/25/22 22:35:00 EST, Route to Pharmacy Electronically, [facility]/pharmacy #2025, Partial fill [...] Refills, Maintenance, 02/27/23 7:25:00 EDT, [facility], 157, cm, 12/08/22 14:27:00 EDT, Height, 145, [...] tablet, 1 Refills, Maintenance, 03/05/23 9:28:00 EDT, [facility] STORE 67407, 157, cm, 12/08/22 14:27:00 EDT, Height, 145, [...] 0 Refills, Maintenance, 02/20/23 17:17:00 EDT, [facility]/pharmacy #2025, 157, cm, 12/08/2313:27:00 EDT, Height, 145, kg, 08/29/22 20:13:00 E... Start Date: 02/20/23 Status: Ordered zolpidem 10 mg oral tablet 1 tablet = 10 mg, By Mouth, Daily at bedtime, PRN for sleep, for 30 days, # 30 tablet, 0 Refills, Acute 04/11/23 9:06:00 EDT, 03/12/23 9:06:00 EDT, Tablet, [facility]/pharmacy #2025, 157, cm, 12/08/22 14:27:00 EDT, Height, 145, kg, 08/29/22 20:13:00 EST, Dry... Start Date: 03/12/23 Stop Date: 04/11/23 Status: Ordered Problem List Condition Confirmation Course [...] Team Personnel Name: Celestina Trinidad MD Position: [facility] Physician - Primary Care Member Role: PCP Address: Address: [address] [place] [address] Name: Hemalatha Lucas RN [facility] Heydi Potts RN Position: [facility] RN Member Role: Primary Care Nurse Name: Janice Romano LPN Position: [facility] RN Member Role: Primary Care Nurse Name: Nadya Low RN Position: [facility] RN Member Role: Primary Care Nurse Name: Mirna Greenfield RN Position: [facility] RN Member Role: Primary Care Nurse Name: Nessa Bonilla RN Position: [facility] Hospital Holistic Health Practitioner Member Role: Primary Care Nurse Care Team Related Persons Name: ROSETTA DINESH Address: home [address] [place] [address] Name: BON DE Address: home [address] [address]
--- OUTSIDE RECORDS SUMMARY | 2024-06-24 14:13 | XMS_ITS | Continuity of Care Document ---
Author Organization [facility] Address [address] [place] [address]- Care Team Providers Care Assistant Activities Director Name Role Phone Vivi HENNING, Celestina Givens Primary Care Physician [facility] 12[facility]22 - 01/27/23 [facility] [address] [place] [address]- Allergies, Adverse Reactions, Alerts No Known Allergies Immunizations Given and Recorded Vaccine Date Status Refusal Reason tetanus/diphtheria/pertussis, acel(Tdap) 1 08/21/22 Given tetanus/diphtheria/pertussis, acel(Tdap) 2 08/13/12 Given EROB-FvD-5rFRD 12y+ bivalent booster vax 06/14/22 Recorded influenza [...] inactivated 6 07/31/12 Gi hali SARS-CoV-2 mRNA (axrpfrt-cpyw-wqjsj) vax 02/14/22 Recorded SARS-CoV-2 (COVID-19) mRNA BNT-162b2 vac 05/06/21 Given SARS-CoV-2 (COVID-19) mRNA BNT-162b2 vac 11/04/20 Recorded SARS-CoV-2 (COVID-19) mRNA BNT-162b2 vac 10/14/20 Recorded pneumococcal 23-valent vaccine 7 04/07/19 Given 1Result Comment: [facility]# [id number] 2Admin Note: VIM dated 08/22/11 GIVEN TODAY 3Result Comment: [facility]# [id number] 4Result Comment: [05/25/2018] [employer] lot number [id number] exp 01/26/2019 [facility] [id number] 5Result Comment: [08/20/2017] [facility] [id number] 6Admin Note: VIM dated 01/29/12 GIVEN TODAY 7Result Comment: [facility]#[id number] Medications acetaminophen 500 mg oral capsule 2 [...] Stop, 04/10/2215:14:00 EDT, Route to Pharmacy Electronically, [id number], [facility]/pharmacy #2025, 158, cm, 04/10/22 14:56:00 EDT, Height, 143,... Start Date: 04/10/22 Status: Ordered amLODIPine 10 mg oral tablet 1 tablet, By Mouth, Daily, # 90 tablet, 0 Refills, Maintenance, 10/23/22 12:47:00 EDT, [facility] STORE 80645, 157, cm, 09/13/22 15:58:00 EST, Height, 145, kg, 08/29/22 20:13:00 EST, Dry Weight Start Date: 10/23/22 Status: Ordered budesonide-formoterol 80 mcg-4.5 mcg/inh inhalation aerosol with adapter 2, puffs, Inhalation, 2 times a day, PRN, use with spacer chamber, rinse mouth and throat after use, j44.9, # 1 each, Refills 6, Tot. Refills 6, Maintenance, 12/08/22 12:55:00 EDT, Aerosol, Route to Pharmacy Electronically, [id number]... Start Date: 12/08/22 Status: Ordered Compression Stockings [...] 100 Gm, 1 Refills, Maintenance, 01/08/23 9:36:00EDT, [facility] STORE 82473, 50, APPLY TOPICALLY 4 TIMES A DAY, 157, cm, 12/08/22 14:27:00 EDT, Height, 145, kg, 08/29/22 20:13:00 EST, Dry Weight Start Date: 01/08/23 Status: Ordered docusate sodium 100 mg oral capsule 100 mg, 1, capsule, By Mouth, 2 times a day, PRN, # 20 capsule, Refills 0, Tot. Refills 0, Maintenance, as needed for constipation, 08/31/22 13:30:00 EST, Route to Pharmacy Electronically, [facility]/pharmacy #2024, Partial fill upon patient request if the p... Start Date: 08/31/22 Status: Ordered Flonase 50 mcg/inh nasal spray See Instructions, 2 sprays Nares twice daily x 1 week, then once daily x 1-2 weeks until symptoms improve, # 16 Gm, 0 Refills, Maintenance, 02/28/21 16:31:00 EDT, [place], [facility]/pharmacy #2025, Partial fill upon patient request if the prescription is for... Start Date: 02/28/21 Status: Ordered FLUoxetine 10 mg oral capsule 10 mg, 1, capsule, By Mouth, Daily, to be taken with 20mg capsules to equal 30mg daily, # 90 capsule, Refills 0, Tot. Refills 0, Maintenance, 01/18/23 9:13:00 EDT, Route to Pharmacy Electronically, [facility]/pharmacy #8915, Partial fill upon patient request... [...] 22:18:00 EDT, Route to Pharmacy Electronically, [facility] STORE 72065, 157, cm, 10/30/22 13:53:00 EDT, Height, 145, kg, 08/29/22 20:13:00 EST, Dry Weight Start Date: 11/29/22 Status: Ordered gabapentin 300 mg oral capsule 600 mg, 2, capsule, By Mouth, 3 times a day, # 180 capsule, Refills 3, Tot. Refills 3, Maintenance,08/25/22 22:35:00 EST, Route to Pharmacy Electronically, [facility]/pharmacy #2025, Partial fill [...] Refills, Maintenance, 07/03/22 14:41:00 EST, Tablet, [facility]/pharmacy #2024, Partial fill upon patient request if the prescription is for a schedule II opioid dr... Start Date: 07/03/22 Status: Ordered meclizine 25 mg oral tablet See Instructions, PRN Dizziness, 1 tablet By Mouth 3 times a day, # 30 tablet, 0 Refills, Maintenance, 05/11/21 13:11:00 EDT, [facility]/pharmacy #2024, Partial fill upon patient request if the prescriptionis for a schedule II opioid drug., 160.02, cm, 10/0... Start Date: 05/11/21 Status: Ordered meloxicam 15 mg oral tablet See Instructions, TAKE 1 TABLET BY MOUTH DAILY WITH FOOD. LABS NEEDED FOR FURTHER REFILLS, # 30 tablet, 3 Refills, Maintenance, 10/18/22 21:31:00 EDT, [facility] STORE 09655, 157, cm, 09/13/22 15:58:00 EST,Height, 145, kg, [...] 16:29:00 EST, Route to Pharmacy Electronically, [facility]/pharmacy #202, Partialfill upon patient request if the [...] Primary Care Member Role: PCP Address: Address: [address] [place] [id number] Name: Hemalatha Lucas RN Position: [facility] [...] Nurse Name: Nessa Bonilla RN Position: [facility] Legal Adviser Member Role: Primary Care Nurse Care Team Related Persons Name: DINESH SARGENT Address: home [address] [address] Name: BON DE Address: [address] [address]
--- OUTSIDE RECORDS SUMMARY | 2024-06-24 14:13 | XMS_ITS | Continuity of Care Document ---
Author Organization [facility] Address [address] [place] [address]- Care Team Providers Care Automobile Locator Name Role Phone Patrick Mathur MD Primary Care Physician [facility]): 08[facility]19 - 08/14/[address] [address]- [facility] Attending Physician: Patrick Mathur MD Allergies, Adverse [...] Given 1Result Comment: [facility]# 45028-011-75 2Result Comment: [05/25/2018] [employer] lot number [id number] exp 01/26/2019 [facility] 17221-359-29 3Result Comment: [08/20/2017] [facility] 95270-493-12 4Admin Note: VIM dated 01/29/12 GIVEN TODAY 5Result Comment: [facility]#[id number] 6Admin Note: VIM dated 08/22/11 GIVEN TODAY Medications albuterol CFC free 90 mcg/inh inhalation aerosol See Instructions, # 25.5 Unknown, Refills 2 Tot. Refills 2, INHALE 2 PUFFS EVERY 6 HOURS NEEDED FOR WHEEZE, [facility]/pharmacy #2024 Start Date: 05/27/19 Status: Ordered benzonatate 200 mg oral capsule 1 capsule = 200 mg, By Mouth, 3 times a day, PRN as needed for cough, for 10 days, # 30 capsule, 0 Refills, Acute 08/22/19 13:50:00 EST, 08/12/19 13:50:00 EST, Capsule, [facility]/pharmacy #2024, 161, cm, 08/12/19 12:43:00 [...] 07/10/19 14:06:00 EST, Route to Pharmacy Electronically, [id number], [facility]/pharmacy #2024, replacing 10mg dose, 161, [...] 0 Refills, Maintenance, 08/03/19 11:35:00 EST, Tablet, [facility]/pharmacy #2024, Labs needed for further refills, 161, cm, 06/25/19 11:16:00 EST, Height Start Date: 08/03/19 Status: Ordered tiZANidine 2 mg oral tablet 2 mg, 1, tablet, By Mouth, Daily at bedtime, PRN, # 14 tablet, Refills 0, Tot. Refills 0, Maintenance, as needed for muscle spasm, 08/04/19 17:54:00 EST, Route to Pharmacy Electronically, [facility]/pharmacy #2025, 161, cm, 08/04/19 14:44:00 EST, [...] Response Smoking Status Current every day oliva wienberg; Tobacco user in household: No; Type: Cigarettes; Tobacco use times per day: 1/2 ppd; entered on: 07/08/15 Sex
--- OUTSIDE RECORDS SUMMARY | 2024-06-24 14:13 | XMS_ITS | Continuity of Care Document ---
Author Organization [facility] Address [address] [place] [address]- Care Team Providers Care Crystal Report Developer Name Role Phone Vivi HENNING, Celestina Givens Primary Care Physician [facility]): 05[facility]08[facility]24 - 06/07/24 [facility] [address] [place] [address]- Allergies, Adverse Reactions, Alerts No Known Allergies [...] 08/21/22 Given tetanus/diphtheria/pertussis, acel(Tdap) 7 08/13/12 Given EMXY-IsS-4nFCT 12y+ bivalent booster vax 06/14/22 Recorded SARS-CoV-2 mRNA (dfaqqwk-syyl-fpovs) vax 02/14/22 Recorded SARS-CoV-2 (COVID-19) mRNA BNT-162b2 vac 05/06/21 Given SARS-CoV-2 (COVID-19) mRNA BNT-162b2 vac 11/04/20 Recorded SARS-CoV-2 (COVID-19) mRNA BNT-162b2 vac 10/14/20 Recorded pneumococcal 23-valent vaccine 8 04/07/19 Given 1Result Comment: screening negative 2Result Comment: [facility]# [id number] 3Result Comment: [05/25/2018] [facility] lot number [id number] exp 01/26/[address] [facility] 64902-984-73 4Result Comment: [08/20/2017] [facility] [id number] 5Admin Note: VIM dated 01/29/12 GIVEN TODAY 6Result Comment: [facility]# [id number] 7Admin Note: VIM dated 08/22/11 GIVEN TODAY 8Result Comment: [facility]#[id number] Medications acetaminophen 500 mg oral capsule 2 [...] 1 Refills, Soft Stop, 12/06/23 17:28:00 EDT, [facility]/pharmacy #5, Partial fill upon patient request if [...] 05/17/24 16:46:00 EDT, Route to Pharmacy Electronically, [facility]/pharmacy #2024, Partial fill upon patient request if the prescription is for a... Start Date: 05/17/24 Status: Ordered diclofenac 1% topical gel See Instructions, APPLY TO AFFECTED AREA 4 TIMES A DAY. NOT COVERED, # 100 Gm, 1 Refills, Maintenance, 04/22/24 15:15:00 EDT, [facility]/pharmacy #2024, 30, APPLY TO AFFECTED AREA 4 TIMES A DAY. NOT COVERED, 157.5, cm, 02/12/24 14:48:00 EDT, Height, 145.9, k... Start Date: 04/22/24 Status: Ordered diclofenac 1% topical gel See Instructions, APPLY TO AFFECTED AREA 4 TIMES A DAY, # 100 Gm, 1 Refills, Maintenance, 11/07/23 7:48:00 EDT, [facility]/pharmacy #2024, 25, APPLY TO AFFECTED AREA 4 [...] Gm, 0 Refills, Maintenance, 02/28/21 16:31:00 EDT, [place], [facility]/pharmacy #2025, Partial fill upon patient request if the prescription is for... Start Date: 02/28/21 Status: Ordered FLUoxetine 10 mg oral capsule 1, capsule, By Mouth, Daily, INSTR:TO BE TAKEN WITH 20MG CAPSULES TO EQUAL 30MG DAILY, # 90 capsule, Refills 1, Maintenance, 01/25/24 9:11:00 EDT, Route to Pharmacy Electronically, [facility] 8[facility], 157.5, cm, 01/22/24 10:31:00 EDT, Height, 145.9, [...] tablet, 1 Refills, Maintenance, 12/28/23 16:17:00 EDT, [facility] 00[facility], 157.5, cm, 10/18/23 15:15:00 EDT, Height, 145.9, [...] Code MRI Safety Implantable Status Assigning Authority [id number] Unknown [id number] Unknown 08/26/24 Unknown Unknown Active GS1 Patient Care team information Care Team Personnel Name: Ceelstina Trinidad MD Position: [facility] Physician - Primary Care Member Role: PCP Address: Address: [address] [place] [address] Name: Hemalatha Lucas RN Position: [facility] RN Member Role: Primary Care Nurse Name: Lauren Mack RN Position: [facility] RN Member [...] Nessa Bonilla RN Position: [facility] Grinder Set Up Operator Universal Member Role: Primary Care Nurse Care Team Related Persons Name: ROSETTA, DINESH Address: home [address] [place] [address] Name: BON DE Address: home [address] [address]
--- OUTSIDE RECORDS SUMMARY | 2024-06-24 14:13 | XMS_ITS | Continuity of Care Document ---
Author Organization [facility] Address [address] [id number]- Care Team Providers Care Health Record Technician Name Role Phone Kareen HENNING, Patrick Graham Primary Care Physician [facility]): [facility] - 12/03/19 [place] [id number] [address]- [place] Attending Physician: Hui HENNING, Jeannine Moreira Admitting Physician: Hui HENNING, Jeannine Moreira Referring Physician: Norberto Baugh MD Allergies, Adverse Reactions, [...] tetanus/diphtheria/pertussis, acel(Tdap) 6 08/13/12 Given 1Result Comment: [facility]# [id number] 2Result Comment: [05/25/2018] [facility] lot number [id number] exp 01/26/2019 [facility] 71156-149-42 3Result Comment: [08/20/2017] [facility] [id number] 4Admin Note: VIM dated 01/29/12 GIVEN TODAY 5Result Comment: [facility]#[id number] 6Admin Note: VIM dated 08/22/11 GIVEN TODAY [...] PUFFS EVERY 6 HOURS NEEDED FOR WHEEZE, [facility]/pharmacy #2024 Start Date: 05/27/19 Status: Ordered diclofenac 1% topical gel 1 applicator, Topically, 4 times a day, # 100 Gm, 0 Refills, Maintenance, 08/22/19 12:32:00 EST, Gel, [facility]/pharmacy #2024, 161, cm, 08/12/19 12:43:00 EST, Height Start Date: 08/22/19 Status: Ordered FLUoxetine 20 mg oral capsule 20 mg, 1, capsule, By Mouth, Daily, # 30 capsule, Refills 4, Tot. Refills 4, Maintenance, 08/30/19 20:34:00 EST, Route to Pharmacy Electronically, [facility]/pharmacy #2024, replacing 10mg dose, 161, cm, 08/12/19 12:43:00 EST, Height Start Date: 08/30/19 Status: Ordered levothyroxine 125 mcg (0.125 mg) oral tablet 1 tablet = 125 mcg, By Mouth, Daily, # 30 tablet, 5 Refills, Maintenance, 11/11/19 14:50:00 EDT, Tablet, [facility]/pharmacy #2024, 161, cm, 10/07/19 9:57:00 EDT, Height Start Date: 11/11/19 Status: Ordered meloxicam 15 mg oral tablet 1 tablet = 15 mg, By Mouth, Daily, Take w food., # 30 tablet, 2 Refills, Maintenance, 10/06/19 15:04:00 EDT, Tablet, [facility]/pharmacy #2024, Labs needed for further refills, 161, cm, 08/12/19 12:43:00 EST, Height Start Date: 10/06/19 Status: Ordered tiZANidine 2 mg oral tablet 2 mg, 1, tablet, By Mouth, Daily at bedtime, PRN, # 14 tablet, Refills 0, Tot. Refills 0, Maintenance, as needed for muscle spasm, 08/04/19 17:54:00 EST, Route to Pharmacy Electronically, [facility]/pharmacy #2025, 161, cm, 08/04/19 14:44:00 EST, Height Start Date: 08/04/19 Stop Date: 08/18/19 Status: Ordered traMADol 50 mg oral tablet 2 tablet = 100 mg, By Mouth, Every 12 hours, as needed for pain masspat checked, # 120 tablet, 2 Refills, Maintenance, 11/04/19 6:31:00 EDT, [facility]/pharmacy #2025, 161, cm, 10/07/19 9:57:00 EDT, Height [...]
--- OUTSIDE RECORDS SUMMARY | 2024-06-24 14:13 | XMS_ITS | Continuity of Care Document ---
Author Organization [facility] Address [address] [place] [address]- Care Team Providers Care Cocoa Room Operator Name Role Phone Vivi HENNING, Celestina Givens Primary Care Physician [facility] 07[facility] - 08/01/23 [facility] [address] [place], [place] [address] Allergies, Adverse Reactions, Alerts No Known Allergies [...] 08/21/22 Given tetanus/diphtheria/pertussis, acel(Tdap) 7 08/13/12 Given VCVU-NvL-3bMWB 12y+ bivalent booster vax 06/14/22 Recorded SARS-CoV-2 mRNA (shloyaf-gzfv-lpdcw) vax 02/14/22 Recorded SARS-CoV-2 (COVID-19) mRNA BNT-162b2 vac 05/06/21 Given SARS-CoV-2 (COVID-19) mRNA BNT-162b2 vac 11/04/20 Recorded SARS-CoV-2 (COVID-19) mRNA BNT-162b2 vac 10/14/20 Recorded pneumococcal 23-valent vaccine 8 04/07/19 Given 1Result Comment: screening negative 2Result Comment: [facility]# [id number] 3Result Comment: [05/25/2018] [facility] lot number [id number] exp 01/26/2019 [facility] 58965-527-46 4Result Comment: [08/20/2017] [facility] [id number] 5Admin Note: VIM dated 01/29/12 GIVEN TODAY 6Result Comment: [facility]# [id number] 7Admin Note: VIM dated 08/22/11 GIVEN TODAY 8Result Comment: [facility]#[id number] Medications acetaminophen 500 mg oral capsule 2 [...] 16:45:00 EDT, [facility], [facility], [...] Gm, 0 Refills, Maintenance, 02/28/21 16:31:00 EDT, [place], [facility], Partial fill upon patient request [...] Pharmacy Electronically, [facility]/pharmacy #2024, Partial fill [...] 7:25:00 EDT, [facility] STORE 63794, 157, cm, 12/08/22 14:27:00 EDT, Height, 145, kg, 08/29/22 20:13:00 EST, Dry... Start Date: 02/27/23 Status: Ordered levothyroxine 150 mcg (0.15 mg) oral tablet 1 tablet = 150 mcg, By Mouth, Daily, # 90 tablet, 0 Refills, Maintenance, 07/15/23 17:38:00 EST, Tablet, [facility]/pharmacy #2024, Partial fill [...] Refills, Maintenance, 07/28/23 10:21:00 EST, [facility], 157.5, cm, 07/13/23 9:57:00 EST, Height, 145.9, [...] tablet, 0 Refills, Maintenance, 07/02/23 16:52:00 EST, [facility]/pharmacy #5, 157.5, cm, 06/26/23 10:22:00 EST, Height, 145.9, [...] Code MRI Safety Implantable Status Assigning Authority [id number] Unknown [id number] Unknown 08/26/24 Unknown Unknown Active GS1 Patient Care team information Care Team Personnel Name: Celestina Trinidad MD Position: [facility] Physician - Primary Care Member Role: PCP Address: Address: [address] [place] [address]- Name: Hemalatha Lucas RN [facility] [...] Name: Nessa Bonilla RN Position: [facility] Medical Attendant Member Role: Primary Care Nurse Care Team Related Persons Name: DINESH SARGENT Address: home [address] [place] [address] Name: BON DE Address: home [address] [address]
--- OUTSIDE RECORDS SUMMARY | 2024-06-24 14:13 | XMS_ITS | Continuity of Care Document ---
Author Organization [facility] Address [address] [place] [address]- Care Team Providers Care Supervisor Fabrication Name Role Phone Florentino AHN, Elder Hannah Primary Care Physician [phone] [facility]counter [facility] Date(s): 09/27/20 - 10/27/20 [facility] [address] [place], [place] [address] Allergies, Adverse Reactions, Alerts [...] tetanus/diphtheria/pertussis, acel(Tdap) 6 08/13/12 Given 1Result Comment: [facility]# [id number] 2Result Comment: [05/25/2018] [facility] lot number [id number] exp 01/26/2019 [facility] [id number] 3Result Comment: [08/20/2017] [facility] [id number] 4Admin Note: VIM dated 01/29/12 GIVEN TODAY 5Result Comment: [facility]#[id number] 6Admin Note: VIM dated 08/22/11 GIVEN TODAY [...] 10/27/20 14:48:00 EDT, Route to Pharmacy Electronically, [id number], [facility]/pharmacy #2024, 160.02, cm, 10/19/20 11:04:00 EDT, Height, 156... Start Date: 10/27/20 Status: Ordered diclofenac 1% topical gel See Instructions, APPLY TOPICALLY 4 TIMES A DAY, # 100 Gm, 1 Refills, 10/27/20 12:37:00 EDT, [facility]/pharmacy #2024, 25, APPLY TOPICALLY 4 TIMES A DAY, 160.02, cm, 10/19/20 11:04:00 EDT, Height, 156.81, kg, 10/19/20 11:04:00 EDT, Dry Weight Start Date: 10/27/20 Status: Ordered FLUoxetine 20 mg oral capsule 20 mg, 1, capsule, By Mouth, Daily, # 30 capsule, Refills 5, Tot. Refills 5, Maintenance, 05/13/20 9:34:00 EDT, Route to Pharmacy Electronically, [facility]/pharmacy #2024, replacing 10mg dose, 161, cm, 05/13/20 8:28:00 EDT, Height Start Date: 05/13/20 Status: Ordered levothyroxine 0.137 mg oral tablet See Instructions, Take 1 tablet by mouth on days 1-6, then take 2 tablets by mouth on day 7, # 121 tablet, 5 Refills, Maintenance, 10/27/20 12:37:00 EDT, [facility]/pharmacy #2024, 160.02, cm, 10/19/20 11:04:00 EDT, Height, 156.81, kg, 10/19/20 11:04:00 EDT,... Start Date: 10/27/20 Status: Ordered meloxicam 15 mg oral tablet 1 tablet, By Mouth, Daily, WITH FOOD., # 30 tablet, 1 Refills, Maintenance, 10/24/20 10:06:00 EDT, [facility] STORE [facility], 160.02, cm, 10/19/20 11:04:00 EDT, Height, 156.81, [...] [facility], cm, 08/04/19 14:44:00 EST, Height Start Date: 08/04/19 Stop Date: 08/18/19 Status: Ordered traMADol 50 mg oral tablet 2 tablet = 100 mg, By Mouth, Every 12 hours, for 30 days, as needed for pain masspat checked, # 120tablet, 2 Refills, Hard Stop 11/15/20 16:20:00 EDT, 08/17/20 16:20:00 EST, [facility]/pharmacy #5, 161,cm, 06/08/20 13:48:00 EST, Height Start Date: 08/17/20 Stop Date: 11/15/20 Status: Ordered traMADol 50 mg oral tablet 2 tablet = 100 mg, By Mouth, Every 12 hours, as needed for pain masspat checked, # 120 tablet, 2 Refills, Maintenance, 09/13/20 16:54:00 EST, [facility]/pharmacy #5, 161, cm, 08/18/20 15:29:00 EST, Height Start Date: 09/13/20 Stop Date: 12/12/20 Status: Ordered zolpidem 10 mg oral tablet 1 tablet = 10 mg, By Mouth, Daily at bedtime, PRN for sleep, for 30 days, masspat check may fill less, # 30 tablet, 3 Refills, Acute 01/14/21 9:22:00 EDT, 09/16/20 9:22:00 EST, Tablet, [facility], 161, cm, 08/18/20 [...]
--- OUTSIDE RECORDS SUMMARY | 2024-06-24 14:13 | XMS_ITS | Continuity of Care Document ---
Author Organization [facility] Address [address] [facility] [place] [address]- Care Team Providers Care Career Development Consultant Name Role Phone Vivi HENNING, Celestina Givens Primary Care Physician Encounter 06/05/22 - 06/12/22 [facility] [address], [facility] [address] [place] [address]- Attending Physician: Madeline Lux NP Admitting Physician: Madeline Lux NP Referring Physician: Madeline Lux NP Allergies, Adverse Reactions, Alerts No Known Allergies Immunizations Given and Recorded Vaccine Date Status Refusal Reason influenza virus vaccine, inactivated 06/08/22 Give n [...] vaccine, inactivated 4 07/31/12 Gi hali SARS-CoV-2 (COVID-19) mRNA BNT-162b2 vac 05/06/21 Given SARS-CoV-2 (COVID-19) mRNA BNT-162b2 vac 11/04/20 Recorded SARS-CoV-2 (COVID-19) mRNA BNT-162b2 vac 10/14/20 Recorded pneumococcal 23-valent vaccine 5 04/07/19 Given tetanus/diphtheria/pertussis, acel(Tdap) 6 08/13/12 Given 1Result Comment: [facility]# [id number] 2Result Comment: [05/25/2018] [facility] lot number [id number] exp 01/26/2019 [facility] [id number] 3Result Comment: [08/20/2017] [facility] [id number] 4Admin Note: VIM dated 01/29/12 GIVEN TODAY 5Result Comment: [facility]#[id number] 6Admin Note: VIM dated 08/22/11 GIVEN TODAY [...] Stop, 04/10/2215:14:00 EDT, Route to Pharmacy Electronically, [id number], [facility]/pharmacy #2025, 158, cm, 04/10/22 14:56:00 EDT, Height, 143,... Start Date: 04/10/22 Status: Ordered Anoro Ellipta 62.5 mcg-25 mcg/inh inhalation powder 1 puffs, By Mouth, Daily, # 1 each, 6 Refills, Maintenance, 05/11/22 13:00:00 EDT, Powder, [facility], Partial fill upon patient [...] Gm, 1 Refills, 09/19/21 12:51:00 EST, [facility]/pharmacy #2025, 25, APPLY TOPICALLY 4 TIMES A DAY, 160.02, cm, 07/25/21 16:20:00 EST, Height, 143, kg,01/04/21 10:42:00 EDT, Dry Weight Start Date: 09/19/21 Status: Ordered Flonase 50 mcg/inh nasal spray See Instructions, 2 sprays Nares twice daily x 1 week, then once daily x 1-2 weeks until symptoms improve, # 16 Gm, 0 Refills, Maintenance, 02/28/21 16:31:00 EDT, [place], [facility]/pharmacy #202, Partial fill upon patient request if the prescription is for... Start Date: 02/28/21 Status: Ordered FLUoxetine 10 mg oral capsule 10 mg, 1, capsule, By Mouth, Daily, Take with 20mg capsule for total of 30mg daily, # 90 capsule, Refills 1, Tot. Refills 1, Maintenance, 04/11/22 14:55:00 EDT, Route to Pharmacy Electronically, [facility], Partial fill upon patient request if t... Start Date: 04/11/22 Status: Ordered levothyroxine 0.137 mg oral tablet See Instructions, TAKE 1 TABLET BY MOUTH ON DAYS 1-6, THEN TAKE 2 TABLETS BY MOUTH ON DAY 7, # 96 tablet, 1 Refills, [facility] 8[facility]78, 160.02, cm, 10/04/21 10:38:00 EST, Height, 143, [...] 06/16/22 16:47:00 EST, 04/10/22 16:47:00 EDT, Tablet, [facility]/pharmacy #... Start Date: 04/10/22 Stop Date: 06/16/22 Status: Ordered meclizine 25 mg oral tablet See Instructions, PRN Dizziness, 1 tablet By Mouth 3 times a day, # 30 tablet, 0 Refills, Maintenance, 05/11/21 13:11:00 EDT, [facility]/pharmacy #2025, Partial fill upon patient request if the prescriptionis for a schedule II opioid drug., 160.02, cm, ... Start Date: 05/11/21 Status: Ordered meloxicam 15 mg oral tablet See Instructions, TAKE 1 TABLET BY MOUTH DAILY WITH FOOD. LABS NEEDED FOR FURTHER REFILLS, # 30 tablet, 3 Refills, Maintenance, 06/08/22 14:55:00 EST, [facility], 158, cm, 06/08/22 14:23:00 EST, Height, 143, kg, 01/04/21 10:42:00 EDT, Dry Weight Start Date: 06/08/22 Status: Ordered Splint See Instructions, # 1 each, Maintenance, left wrist short cock-up splint, 01/08/20 14:28:00 EDT, Supply Start Date: 01/08/20 Status: Ordered traMADol 50 mg oral tablet See Instructions, 2 tab po qam and one tab po q pm prn moderate to severe pain, # 81 tablet, 0 Refills, Maintenance, 05/11/22 18:51:00 EDT, [facility], 158, cm, 05/08/22 11:49:00 EDT, Height, 143, kg, 01/04/21 10:42:00 EDT, Dry Weight Start Date: 05/11/22 Status: Ordered zolpidem 10 mg oral tablet 1 tablet = 10 mg, By Mouth, Daily at bedtime, PRN for sleep, for 30 days, masspat check may fill less, # 30 tablet, 2 Refills, Acute 07/19/22 9:22:00 EST, 04/20/22 9:22:00 EDT, Tablet, [facility], 158, cm, 04/10/22 14:56:00 EDT, Height, [...] depression Confirmed Active Severe obesity Confirmed Active Mild persistent asthma without complication Confirmed Active Results Radiology Reports * Exam Date Time Procedure Performing Provider Status 06/05/22 3:51 PM US Soft Tissue Abdomen Ashly Carlos; Keerthi (Verified) Notes: (US Soft Tissue Abdomen) Reason For Exam: Other: RESULT: US Soft Tissue Abdomen US Soft Tissue Abdomen REASON: Umbilical hernia and not definite for other abd hernias COMPARISON: 10/17/2021 FINDINGS: High-resolution, linear array, grayscale and color Doppler imaging of the superficial soft tissues of the umbilicus was performed in the area of the patient's symptoms. There is a hernia present with no evidence of peristalsis, with the sac measuring 4.4 x 4.3 cm. Theneck of the hernia measures 1.8 cm and is not entirely reducible. IMPRESSION: Fat-containing supraumbilical hernia measuring 4.4 cm. I have personally reviewed the images and I agree with this report. WSN: [id number] Ordering Physician: Madeline Lux Dictated By: Kathia Cuba DO Dictated Date/Time: 06/05/22 5:05 pm Reviewed By: Luis Rg MD Signed By: Luis Rg MD Signed Date/Time: 06/05/22 5:10 pm Transcribed By: ARGENTINA Transcribed Date/Time: 06/05/22 4:38 pm Social History Social History Type Response Smoking Status Former smoker, quit more than 30 days ago; Other: smoked up to pack a day x 25 years; entered on: 11/14/21 Sex Note * SPowerscribe , CIS S: TRANSCRILuis Griffin MD: VERIFY Kathia Cuba DO: SIGN Event Display: Result: Authored Date: [id number] US Soft Tissue Abdomen REASON: Umbilical hernia and not definite for other abd hernias COMPARISON: 10/17/2021 FINDINGS: High-resolution, linear array, grayscale and color Doppler imaging of the superficial soft tissues of the umbilicus was performed in the area of the patient's symptoms. There is a hernia present with no evidence of peristalsis, with the sac measuring 4.4 x 4.3 cm. Theneck of the hernia measures 1.8 cm and is not entirely reducible. IMPRESSION: Fat-containing supraumbilical hernia measuring 4.4 cm. I have personally reviewed the images and I agree with this report. WSN: [id number] Ordering Physician: Madeline Lux Dictated By: Kathia Cuba DO Dictated Date/Time: 06/05/22 5:05 pm Reviewed By: Luis Rg MD Signed By: Luis Rg MD Signed Date/Time: 06/05/22 5:10 pm Transcribed By: ARGENTINA Transcribed Date/Time: 06/05/22 4:38 pm Patient Care team information Care Team Personnel Name: Celestina Trinidad MD Position: [facility] Primary Care Physician Member Role: PCP Address: Address: [address] [place] [address] Name: Lauren Mack RN Position: [facility] AMB Nurse Member Role: Primary Care Nurse Name: Lora Santiago RN Position: [facility] RN [...] Care Nurse Name: Nessa Bonilla RN Position: [facility] Family Consultant Member Role: Primary Care Nurse Care Team Related Persons Name: MADELINE SARGENT Address: home [address] [place] [address] Name: BON DE Address: home [address] [place] [id number]
--- OUTSIDE RECORDS SUMMARY | 2024-06-24 14:13 | XMS_ITS | Continuity of Care Document ---
Author Organization [facility] y [address], [address] [place] [address]- Care Team Providers Care Independent Beauty Consultant Name Role Phone Yolanda AHN, Padmaja Heard Primary Care Physician Encounter [facility] Date(s): 05/08/22 - 05/15/[address], [address] [place], [place] [address] Attending Physician: Shae Mosqueda DO Allergies, Adverse Reactions, Alerts No Known Allergies [...] acel(Tdap) 6 08/13/12 Given 1Result Comment: [facility]# [id number] 2Result Comment: [05/25/2018] [facility] lot number [id number] exp 01/26/[address] [facility] [id number] 3Result Comment: [08/20/2017] [facility] [id number] 4Admin Note: VIM dated 01/29/12 GIVEN TODAY 5Result Comment: [facility]#[id number] 6Admin Note: VIM dated 08/22/11 GIVEN TODAY [...] Stop, 04/10/2215:14:00 EDT, Route to Pharmacy Electronically, [id number], [facility]/pharmacy #2025, 158, cm, 04/10/22 14:56:00 EDT, Height, 143,... Start Date: 04/10/22 Status: Ordered Anoro Ellipta 62.5 mcg-25 mcg/inh inhalation powder 1 puffs, By Mouth, Daily, # 1 each, 6 Refills, Maintenance, 05/11/22 13:00:00 EDT, Powder, [facility], Partial fill upon patient [...] 100 Gm, 1 Refills, 09/19/21 12:51:00 EST, [facility]/pharmacy #2024, 25, APPLY TOPICALLY 4 TIMES A DAY, 160.02, cm, 07/25/21 16:20:00 EST, Height, 143, kg,01/04/21 10:42:00 EDT, Dry Weight Start Date: 09/19/21 Status: Ordered Flonase 50 mcg/inh nasal spray See Instructions, 2 sprays Nares twice daily x 1 week, then once daily x 1-2 weeks until symptoms improve, # 16 Gm, 0 Refills, Maintenance, 02/28/21 16:31:00 EDT, [place], [facility]/pharmacy #2024, Partial fill upon patient request if the prescription is for... Start Date: 02/28/21 Status: Ordered FLUoxetine 10 mg oral capsule 10 mg, 1, capsule, By Mouth, Daily, Take with 20mg capsule for total of 30mg daily, # 90 capsule, Refills 1, Tot. Refills 1, Maintenance, 04/11/22 14:55:00 EDT, Route to Pharmacy Electronically, [facility], Partial fill upon patient request if t... Start Date: 04/11/22 Status: Ordered levothyroxine 0.137 mg oral tablet See Instructions, TAKE 1 TABLET BY MOUTH ON DAYS 1-6, THEN TAKE 2 TABLETS BY MOUTH ON DAY 7, # 96 tablet, 1 Refills, [facility] 99459, 160.02, cm, 10/04/21 10:38:00 EST, Height, 143, [...] tablet, 0 Refills, Maintenance, 05/11/21 13:11:00 EDT, [facility]/pharmacy #2024, Partial fill upon patient request if the prescriptionis for a schedule II opioid drug., 160.02, cm, 100... Start Date: 05/11/21 Status: Ordered meloxicam 15 mg oral tablet See Instructions, TAKE 1 TABLET BY MOUTH DAILY WITH FOOD, # 30 tablet, 0 Refills, Maintenance, 05/11/22 18:51:00 EDT, [facility], Labs needed for further refills., 158, [...] tablet, 0 Refills, Maintenance, 05/11/22 18:51:00 EDT, [facility], 158, cm, 05/08/22 11:49:00 EDT, Height, 143, kg, 01/04/21 10:42:00 EDT, Dry Weight Start Date: 05/11/22 Status: Ordered zolpidem 10 mg oral tablet 1 tablet = 10 mg, By Mouth, Daily at bedtime, PRN for sleep, for 30 days, masspat check may fill less, # 30 tablet, 2 Refills, Acute 07/19/22 9:22:00 EST, 04/20/22 9:22:00 EDT, Tablet, [facility], 158, cm, 04/10/22 14:56:00 EDT, [...] recent to oldest [Reference Range]: 1 Height 158 cm (05/08/22 11:49 AM) Social History Social History Type Response Smoking Status Former smoker, quit more than 30 days ago; Other: smoked up to pack a day x 25 years; entered on: 11/14/21 Sex Patient Care team information Personnel Name: Padmaja Guerrero NP Address: Address: [address] [place] [address]
--- OUTSIDE RECORDS SUMMARY | 2024-06-24 14:13 | XMS_ITS | Continuity of Care Document ---
Author Organization [facility] em Address Unknown Care Team Providers Care Final Canoe Inspector Name Role Phone Not on Staff, PCP Primary Care Physician Unavail able [id number] Date(s): 10/30/22 - 11/29/22 [facility] Attending Physician: Calixto Beltran Admitting Physician: Calixto Beltran Referring Physician: Calixto Beltran Patient Care team information Care Team Personnel Name: Not on Staff, PCP Position: [facility] Physician (General Medicine) Member Role: PCP
--- OUTSIDE RECORDS SUMMARY | 2024-06-24 14:13 | XMS_ITS | Continuity of Care Document ---
Author Organization [facility] Address [address] [place] [address]- Care Team Providers Care Supervisor Delivery Department Name Role Phone Vivi HENNING, Celestina Givens Primary Care Physician [facility]counter [facility] Date(s): 07/20/22 - 08/19/22 [facility] [address] [place] [address]- Allergies, Adverse Reactions, Alerts No Known Allergies Immunizations Given and Recorded Vaccine Date Status Refusal Reason [id number] 12y+ bivalent booster vax 06/14/22 Recorded influenza [...] inactivated 4 07/31/12 Gi hali SARS-CoV-2 mRNA ([id number]) vax 02/14/22 Recorded SARS-CoV-2 (COVID-19) mRNA BNT-162b2 vac 05/06/21 Given SARS-CoV-2 (COVID-19) mRNA BNT-162b2 vac 11/04/20 Recorded SARS-CoV-2 (COVID-19) mRNA BNT-162b2 vac 10/14/20 Recorded pneumococcal 23-valent vaccine 5 04/07/19 Given tetanus/diphtheria/pertussis, acel(Tdap) 6 08/13/12 Given 1Result Comment: [facility]# [id number] 2Result Comment: [05/25/2018] [facility] lot number [id number] exp 01/26/[address] [facility] [id number] 3Result Comment: [08/20/2017] [facility] [id number] 4Admin Note: VIM dated 01/29/12 GIVEN TODAY 5Result Comment: [facility]#[id number] 6Admin Note: VIM dated 08/22/11 GIVEN TODAY [...] Stop, 04/10/2215:14:00 EDT, Route to Pharmacy Electronically, [id number], [facility]/pharmacy #2025, 158, cm, 04/10/22 14:56:00 EDT, Height, 143,... Start Date: 04/10/22 Status: Ordered amLODIPine 10 mg oral tablet 1 tablet, By Mouth, Daily, # 90 tablet, 0 Refills, Maintenance, 07/21/22 17:34:00 EST, [facility], 158, cm, 07/21/22 15:09:00 EST, Height, 143, kg, 01/04/21 10:42:00 EDT, Dry Weight Start Date: 07/21/22 Status: Ordered Anoro Ellipta 62.5 mcg-25 mcg/inh inhalation powder 1 puffs, By Mouth, Daily, # 1 each, 6 Refills, Maintenance, 05/11/22 13:00:00 EDT, Powder, [facility], Partial fill upon patient [...] 0 Refills, Maintenance, 08/01/22 16:58:00 EST, Tablet, [facility]/pharmacy #202, Partial fill upon patient request [...] 100 Gm, 1 Refills, 09/19/21 12:51:00 EST, [facility]/pharmacy #202, 25, APPLY TOPICALLY 4 TIMES A [...] Gm, 0 Refills, Maintenance, 02/28/21 16:31:00 EDT, [place], [facility]/pharmacy #202, Partial fill upon patient request if the prescription is for... Start Date: 02/28/21 Status: Ordered FLUoxetine 20 mg oral capsule See Instructions, TAKE 1 CAPSULE BY MOUTH EVERY DAY, # 90 capsule, Refills 1, Maintenance, 06/13/2215:26:00 EST, Instructions Replace Required Details, Route to Pharmacy Electronically, [facility], 158, cm, 06/09/22 11:21:00 EST, Height, 143, kg... Start Date: 06/13/22 Status: Ordered gabapentin 300 mg oral capsule 600 mg, 2, capsule, By Mouth, 2 times a day, # 120 capsule, Refills 1, Tot. Refills 1, Maintenance,07/22/22 8:06:00 EST, Route to Pharmacy Electronically, [facility]/pharmacy #2024, Partial fill upon patient request if the prescription is for a schedule II... Start Date: 07/22/22 Status: Ordered levothyroxine 0.137 mg oral tablet 1 tablet = 137 mcg, By Mouth, Daily, 1 tab on days 1-6, take 2 tabs on day 7, # 102 tablet, 1 Refills, Maintenance, 07/03/22 14:41:00 EST, Tablet, [facility]/pharmacy #202, Partial fill upon patient request if the prescription is for a schedule II opioid dr... Start Date: 07/03/22 Status: Ordered levothyroxine 0.137 mg oral tablet See Instructions, TAKE 1 TABLET BY MOUTH ON DAYS 1-6, THEN TAKE 2 TABLETS BY MOUTH ON DAY 7 Needs TSH lab work for refills, # 96 tablet, 0 Refills, 06/29/22 15:47:00 EST, [facility]/pharmacy #2024, 158, cm,06/09/22 11:21:00 EST, Height, 143, kg, 01/04/21 1... Start Date: 06/29/22 Status: Ordered meclizine 25 mg oral tablet See Instructions, PRN Dizziness, 1 tablet By Mouth 3 times a day, # 30 tablet, 0 Refills, Maintenance, 05/11/21 13:11:00 EDT, [facility]/pharmacy #2024, Partial fill upon patient [...] 0 Refills, Maintenance, 08/01/22 16:58:00 EST, Tablet, [facility]/pharmacy #2024, Partial fill upon patient [...] Acute 09/27/22 16:00:00 EST, 08/01/22 21:26:00EST, Ointment, [facility]/pharmacy #2024, Partial fill upon patient [...] Team Personnel Name: Celestina Trinidad MD Position: [facility] Primary Care Physician Member Role: PCP Address: Address: [address] [place] [id number] Name: Lauren Mack RN Position: [facility] AMB Nurse Member Role: Primary Care Nurse Name: Lora Santiago RN Position: [facility] RN Member Role: Primary Care Nurse Name: Mayco Ro RN Position: [facility] RN Member Role: Primary Care Nurse Name: Heydi Potts RN Position: [facility] RN Member Role: Primary Care Nurse Name: Nadya Low RN Position: [facility] RN Member Role: Primary Care Nurse Name: Mirna Greenfield RN Position: [facility] RN Member Role: Primary Care Nurse Name: Nessa Bonilla RN Position: [facility] Hospital Bag Turner Member Role: Primary Care Nurse Care Team Related Persons Name: ROSETTAROLA JOHNSONELLE Address: home [address] [place] [address] Name: BON DE Address: home [address] [place] [address]
--- OUTSIDE RECORDS SUMMARY | 2024-06-24 14:13 | XMS_ITS | Continuity of Care Document ---
Author Organization [facility] Address [address] [place] [address]- Care Team Providers Care Director Of Resource Development Name Role Phone Vivi HENNING, Celestina Givens Primary Care Physician [facility] Date[facility]): 06[facility]22 - 07/29/22 [facility] [address] [place] [address]- Allergies, Adverse Reactions, Alerts No Known Allergies Immunizations Given and Recorded Vaccine Date Status Refusal Reason [id number] 12y+ bivalent booster vax 06/14/22 Recorded influenza [...] inactivated 4 07/31/12 Gi hali SARS-CoV-2 mRNA (yplddbj-njnd-wolrs) vax 02/14/22 Recorded SARS-CoV-2 (COVID-19) mRNA BNT-162b2 vac 05/06/21 Given SARS-CoV-2 (COVID-19) mRNA BNT-162b2 vac 11/04/20 Recorded SARS-CoV-2 (COVID-19) mRNA BNT-162b2 vac 10/14/20 Recorded pneumococcal 23-valent vaccine 5 04/07/19 Given tetanus/diphtheria/pertussis, acel(Tdap) 6 08/13/12 Given 1Result Comment: [facility]# [id number] 2Result Comment: [05/25/2018] seq[facility] lot number [id number] exp 01/26/2019 [facility] [id number] 3Result Comment: [08/20/2017] [facility] [phone] 4Admin Note: VIM dated 01/29/12 GIVEN TODAY 5Result Comment: [facility]#[id number] 6Admin Note: VIM dated 08/22/11 GIVEN TODAY [...] Stop, 04/10/2215:14:00 EDT, Route to Pharmacy Electronically, [id number], [facility]/pharmacy #2025, 158, cm, 04/10/22 14:56:00 EDT, Height, 143,... Start Date: 04/10/22 Status: Ordered amLODIPine 10 mg oral tablet 1 tablet, By Mouth, Daily, # 90 tablet, 0 Refills, Maintenance, 07/21/22 17:34:00 EST, [id number], 158, cm, 07/21/22 15:09:00 EST, Height, 143, kg, 01/04/21 10:42:00 EDT, Dry Weight Start Date: 07/21/22 Status: Ordered Anoro Ellipta 62.5 mcg-25 mcg/inh inhalation powder 1 puffs, By Mouth, Daily, # 1 each, 6 Refills, Maintenance, 05/11/22 13:00:00 EDT, Powder, [facility], Partial fill upon patient [...] 100 Gm, 1 Refills, 09/19/21 12:51:00 EST, [facility]/pharmacy #2024, 25, APPLY TOPICALLY 4 TIMES A DAY, 160.02, cm, 07/25/21 16:20:00 EST, Height, 143, kg,01/04/21 10:42:00 EDT, Dry Weight Start Date: 09/19/21 Status: Ordered doxycycline hyclate 100 mg oral tablet 1 tablet = 100 mg, By Mouth, 2 times a day, for 10 days, # 20 tablet, 0 Refills, Acute 08/02/22 1:51:00 EST, 07/23/22 1:51:00 EST, Capsule, [facility]/pharmacy #2024, Partial fill upon patient request if the prescription is for a schedule II opioid drug., 15... Start Date: 07/23/22 Stop Date: 08/02/22 Status: Ordered doxycycline hyclate 100 mg oral tablet 1 tablet, By Mouth, 2 times a day, # 20 tablet, 0 Refills, Maintenance, 07/21/22 17:34:00 EST, [facility], 158, cm, 07/21/22 15:09:00 EST, Height, 143, kg, 01/04/21 10:42:00 EDT, Dry Weight Start Date: 07/21/22 Stop Date: 07/31/22 Status: Ordered Flonase 50 mcg/inh nasal spray See Instructions, 2 sprays Nares twice daily x 1 week, then once daily x 1-2 weeks until symptoms improve, # 16 Gm, 0 Refills, Maintenance, 02/28/21 16:31:00 EDT, [place], [facility]/pharmacy #202, Partial fill upon patient request if the prescription is for... Start Date: 02/28/21 Status: Ordered FLUoxetine 20 mg oral capsule See Instructions, TAKE 1 CAPSULE BY MOUTH EVERY DAY, # 90 capsule, Refills 1, Maintenance, 06/13/2215:26:00 EST, Instructions Replace Required Details, Route to Pharmacy Electronically, [facility], 158, cm, 06/09/22 11:21:00 EST, Height, 143, kg... Start Date: 06/13/22 Status: Ordered gabapentin 300 mg oral capsule 600 mg, 2, capsule, By Mouth, 2 times a day, # 120 capsule, Refills 1, Tot. Refills 1, Maintenance,07/22/22 8:06:00 EST, Route to Pharmacy Electronically, [facility]/pharmacy #202, Partial fill upon patient request if the prescription is for a schedule II... Start Date: 07/22/22 Status: Ordered levothyroxine 0.137 mg oral tablet 1 tablet = 137 mcg, By Mouth, Daily, 1 tab on days 1-6, take 2 tabs on day 7, # 102 tablet, 1 Refills, Maintenance, 07/03/22 14:41:00 EST, Tablet, [facility]/pharmacy #2025, Partial fill upon patient request if the prescription is for a schedule II opioid drMelonie.. Start Date: 07/03/22 Status: Ordered levothyroxine 0.137 mg oral tablet See Instructions, TAKE 1 TABLET BY MOUTH ON DAYS 1-6, THEN TAKE 2 TABLETS BY MOUTH ON DAY 7 Needs TSH lab work for refills, # 96 tablet, 0 Refills, 06/29/22 15:47:00 EST, [facility], 158, cm,06/09/22 11:21:00 EST, Height, 143, kg, 01/04/21 1... Start Date: 06/29/22 Status: Ordered meclizine 25 mg oral tablet See Instructions, PRN Dizziness, 1 tablet By Mouth 3 times a day, # 30 tablet, 0 Refills, Maintenance, 05/11/21 13:11:00 EDT, [facility]/pharmacy #2025, Partial fill upon patient request if the prescriptionis for a schedule II opioid drug., 160.02, cm, 10/0... Start Date: 05/11/21 Status: Ordered meloxicam 15 mg oral tablet See Instructions, TAKE 1 TABLET BY MOUTH DAILY WITH FOOD. LABS NEEDED FOR FURTHER REFILLS, # 30 tablet, 3 Refills, Maintenance, 07/17/22 19:56:00 EST, [facility], 158, cm, 07/13/22 13:46:00 EST, Height, 143, kg, 01/04/21 10:42:00 EDT, Dry Weight Start Date: 07/17/22 Status: Ordered oxyCODONE 10 mg oral tablet 1 tablet = 10 mg, By Mouth, Every 6 hours, PRN as needed for pain, # 20 tablet, 0 Refills, Acute 08/04/22 9:15:00 EST, 07/21/22 9:15:00 EST, Tablet, [facility], Partial fill upon [...] Celestina Trinidad MD Position: [facility] Primary Care Physician Member Role: PCP Address: Address: [address] [place] [id number] Name: Lauren Mack RN Position: [facility] Nurse Member Role: Primary Care Nurse Name: Lora Santiago RN Position: [facility] SN RN Member Role: Primary Care Nurse Name: Mayco Ro RN Position: [facility] RN Member Role: Primary Care Nurse Name: Heydi Potts RN Position: [facility] RN Member Role: Primary Care Nurse Name: Nadya Low RN Position: [facility] RN Member Role: Primary Care Nurse Name: Mirna Greenfield RN Position: [facility] RN Member Role: Primary Care Nurse Name: Nessa Bonilla RN Position: [facility] Hospital Business Management Intern Member Role: Primary Care Nurse Care Team Related Persons Name: ROSETTA DINESH Address: home [address] [place] [address] Name: BON DE Address: home [address] [address]
--- OUTSIDE RECORDS SUMMARY | 2024-06-24 14:14 | XMS_ITS | Continuity of Care Document ---
Author Organization [facility] Address [address] [place] [address]- Care Team Providers Care Technical Support Technician Name Role Phone Celestina Trinidad MD Primary Care Physician Encounter [facility] Date(s): 10/30/23 - 11/29/23 [facility] [address] [place] [address]- Allergies, Adverse Reactions, Alerts No Known Allergies [...] 08/21/22 Given tetanus/diphtheria/pertussis, acel(Tdap) 7 08/13/12 Given ESAV-QrK-5hNNL 12y+ bivalent booster vax 06/14/22 Recorded SARS-CoV-2 mRNA (eahejab-heqr-qikys) vax 02/14/22 Recorded SARS-CoV-2 (COVID-19) mRNA BNT-162b2 vac 05/06/21 Given SARS-CoV-2 (COVID-19) mRNA BNT-162b2 vac 11/04/20 Recorded SARS-CoV-2 (COVID-19) mRNA BNT-162b2 vac 10/14/20 Recorded pneumococcal 23-valent vaccine 8 04/07/19 Given 1Result Comment: screening negative 2Result Comment: [facility]# [id number] 3Result Comment: [05/25/2018] [facility] lot number [id number] exp 01/26/2019 [facility] 40105-347-19 4Result Comment: [08/20/2017] [facility] [id number] 5Admin Note: VIM dated 01/29/12 GIVEN TODAY 6Result Comment: [facility]# [id number] 7Admin Note: VIM dated 08/22/11 GIVEN TODAY 8Result Comment: [facility]#[id number] Medications acetaminophen 500 mg oral capsule 2 [...] 05/17/23 16:45:00 EDT, Route to Pharmacy Electronically, [facility]/pharmacy #2024, Partial fill upon patient request if the presc... Start Date: 05/17/23 Stop Date: 05/17/24 Status: Ordered diclofenac 1% topical gel See Instructions, APPLY TO AFFECTED AREA 4 TIMES A DAY, # 100 Gm, 1 Refills, Maintenance, 11/07/23 7:48:00 EDT, [facility]/pharmacy #2024, 25, APPLY TO [...] Gm, 0 Refills, Maintenance, 02/28/21 16:31:00 EDT, [place], [facility], Partial fill upon patient request [...] 07/31/23 19:01:00 EST, Route to Pharmacy Electronically, [facility]/pharmacy #2024, 157.5, cm, 07/13/23 9:57:00 EST, Height, 145.9, kg, 05/22/23 7:39:00 EDT, Dry Weight Start Date: 07/31/23 Status: Ordered gabapentin 300 mg oral capsule 600 mg, 2, capsule, By Mouth, 3 times a day, # 180 capsule, Refills 3, Tot. Refills 3, Maintenance,08/25/22 22:35:00 EST, [facility] Partial fill upon patient request if [...] tablet, 0 Refills, Maintenance, 10/12/23 6:42:00 EDT, [facility]/pharmacy #2024, 157.5, cm, 07/13/23 9:57:00 EST, Height, 145.9, kg, 05/22/23 7:39:00 EDT, Dry Weight Start Date: 10/12/23 Status: Ordered meclizine 25 mg oral tablet See Instructions, PRN Dizziness, 1 tablet By Mouth 3 times a day, # 30 tablet, 0 Refills, Maintenance, 02/27/23 10:43:00 EDT, [facility]/pharmacy #2024, Partial fill upon [...] may filll this prescription for fewer pills[facility] # [facility], Refills [...] tablet, 0 Refills, Maintenance, 11/05/23 16:28:00 EDT, [facility]/pharmacy #2025, Partial fill upon [...] Code MRI Safety Implantable Status Assigning Authority [id number] Unknown [id number] Unknown 08/26/24 Unknown Unknown Active GS1 Patient Care team information Care Team Personnel Name: Celestina Trinidad MD Position: [facility] Physician - Primary Care Member Role: PCP Address: Address: [address] [place] [address] Name: Hemalatha Lucas RN Position: [facility] RN Member Role: Primary Care Nurse Name: Lauren Mack RN Position: [facility] AMB Nurse Member Role: Primary Care Nurse Name: Madelaine Ruiz RN Position: [facility] RN Member Role: Primary Care Nurse Name: Lora Santiago RN Position: [facility] SN RN Member Role: Primary Care Nurse Name: Mayco Ro RN Position: [facility] RN Member Role: Primary Care Nurse Name: Heydi Potts RN Position: [facility] RN Member Role: Primary Care Nurse Name: Janice Romano LPN Position: [facility] RN Member Role: Primary Care Nurse Name: Nadya Low RN Position: [facility] RN Member Role: Primary Care Nurse Name: Mirna Greenfield RN Position: [facility] RN Member Role: Primary Care Nurse Name: Nessa Bonilla RN Position: [facility] Electronic Member Role: Primary Care Nurse Care Team Related Persons Name: DINESH SARGENT Address: home [address] [place] [address] Name: BON DE Address: [address] [address]
--- OUTSIDE RECORDS SUMMARY | 2024-06-24 14:14 | XMS_ITS | Continuity of Care Document ---
Author Organization [facility] Address [address] [place] [address]- Care Team Providers Care End Finder Twisting Department Name Role Phone Florentino AHN, Elder Hannah Primary Care Physician [phone] [facility]counter [facility] Date(s): 06/11/20 - 07/11/20 [facility] [address] [place], [place] [address] Allergies, Adverse Reactions, Alerts Substance Reaction Severity [...] 1Result Comment: [facility]# [id number] 2Result Comment: [05/25/2018] [facility] lot number [id number] exp 01/26/2019 [facility] [id number] 3Result Comment: [08/20/2017] [facility] [id number] 4Admin Note: VIM dated 01/29/12 GIVEN TODAY 5Result Comment: [facility]#[id number] 6Admin Note: VIM dated 08/22/11 GIVEN TODAY [...] PUFFS EVERY 6 HOURS NEEDED FOR WHEEZE, [facility]/pharmacy #2024 Start Date: 05/27/19 Status: Ordered diclofenac 1% topical gel 1 applicator, Topically, 4 times a day, # 100 Gm, 0 Refills, Maintenance, 06/08/20 15:07:00 EST, Gel, [facility]/pharmacy #2024, 161, cm, 06/08/20 13:48:00 EST, Height Start Date: 06/08/20 Status: Ordered FLUoxetine 20 mg oral capsule 20 mg, 1, capsule, By Mouth, Daily, # 30 capsule, Refills 5, Tot. Refills 5, Maintenance, 05/13/20 9:34:00 EDT, Route to Pharmacy Electronically, [facility]/pharmacy #2024, replacing 10mg dose, 161, cm, 05/13/20 8:28:00 EDT, Height Start Date: 05/13/20 Status: Ordered levothyroxine 0.137 mg oral tablet 1 tablet = 137 mcg, By Mouth, Daily, # 30 tablet, 3 Refills, Maintenance, 06/08/20 15:09:00 EST, Tablet, [facility]/pharmacy #2024, 161, cm, 06/08/20 13:48:00 EST, Height Start Date: 06/08/20 Stop Date: 10/06/20 Status: Ordered levothyroxine 125 mcg (0.125 mg) oral tablet 1 tablet = 125 mcg, By Mouth, Daily, # 30 tablet, 5 Refills, Maintenance, 05/13/20 9:34:00 EDT, Tablet, [facility]/pharmacy #2024, 161, cm, 05/13/20 8:28:00 EDT, Height Start Date: 05/13/20 Status: Ordered meloxicam 15 mg oral tablet 1 tablet = 15 mg, By Mouth, Daily, Take w food., # 30 tablet, 1 Refills, Maintenance, 07/08/20 11:31:00 EST, Tablet, [facility]/pharmacy #2025, Labs needed for further refills, 161, [...] 08/04/19 17:54:00 EST, Route to Pharmacy Electronically, [facility]/pharmacy #2024, 161, cm, 08/04/19 14:44:00 EST, Height Start Date: 08/04/19 Stop Date: 08/18/19 Status: Ordered traMADol 50 mg oral tablet 2 tablet = 100 mg, By Mouth, Every 12 hours, as needed for pain masspat checked, # 120 tablet, 2 Refills, Maintenance, 05/13/20 9:34:00 EDT, [facility], 161, cm, 05/13/20 8:28:00 EDT, Height Start Date: 05/13/20 Stop Date: 08/11/20 Status: Ordered zolpidem 10 mg oral tablet 1 tablet = 10 mg, By Mouth, Daily at bedtime, PRN for sleep, for 30 days, masspat check may fill less, # 30 tablet, 3 Refills, Acute 09/10/20 9:34:00 EST, 05/13/20 9:34:00 EDT, Tablet, [facility]/pharmacy #2024, 161, cm, 05/13/20 8:28:00 EDT, [...]
--- OUTSIDE RECORDS SUMMARY | 2024-06-24 14:14 | XMS_ITS | Continuity of Care Document ---
Author Organization [facility] Address [address] [place] [address]- Care Team Providers Care Brand Marketing Manager Name Role Phone Vivi HENNING, Celestina Givens Primary Care Physician Encounter [facility] Date(s): 02/21/23 - 03/23/23 [facility] [address] [place] [address]- Allergies, Adverse Reactions, Alerts No Known Allergies Immunizations Given and Recorded Vaccine Date Status Refusal Reason tetanus/diphtheria/pertussis, acel(Tdap) 1 08/21/22 Given tetanus/diphtheria/pertussis, acel(Tdap) 2 08/13/12 Given WEOM-KoT-0wOHN 12y+ bivalent booster vax 06/14/22 Recorded influenza [...] inactivated 6 07/31/12 Gi hali SARS-CoV-2 mRNA (czmbbfv-gzok-nobxr) vax 02/14/22 Recorded SARS-CoV-2 (COVID-19) mRNA BNT-162b2 vac 05/06/21 Given SARS-CoV-2 (COVID-19) mRNA BNT-162b2 vac 11/04/20 Recorded SARS-CoV-2 (COVID-19) mRNA BNT-162b2 vac 10/14/20 Recorded pneumococcal 23-valent vaccine 7 04/07/19 Given 1Result Comment: [facility]# [id number] 2Admin Note: VIM dated 08/22/11 GIVEN TODAY 3Result Comment: [facility]# [id number] 4Result Comment: [05/25/2018] seq[facility] lot number [id number] exp 01/26/2019 [facility] [id number] 5Result Comment: [08/20/2017] [facility] [id number] 6Admin Note: VIM dated 01/29/12 GIVEN TODAY 7Result Comment: [facility]#[id number] Medications acetaminophen 500 mg oral capsule 2 [...] Stop, 04/10/2215:14:00 EDT, Route to Pharmacy Electronically, [id number], [facility]/pharmacy #2025, 158, cm, 04/10/22 14:56:00 EDT, Height, [...] 1 Refills, Maintenance, 01/08/23 9:36:00EDT, [facility], 50, APPLY TOPICALLY 4 TIMES A DAY, [...] Gm, 0 Refills, Maintenance, 02/28/21 16:31:00 EDT, [place], [facility]/pharmacy #2024, Partial fill upon patient request if the prescription is for... Start Date: 02/28/21 Status: Ordered FLUoxetine 10 mg oral capsule 10 mg, 1, capsule, By Mouth, Daily, to be taken with 20mg capsules to equal 30mg daily, # 90 capsule, Refills 0, Tot. Refills 0, Maintenance, 01/18/23 9:13:00 EDT, Route to Pharmacy Electronically, [facility]/pharmacy #0352, Partial fill upon patient request... Start Date: [...] 22:35:00 EST, Route to Pharmacy Electronically, [facility]/pharmacy #2025, Partial fill upon patient request if [...] tablet, 2 Refills, Maintenance, 02/27/23 7:25:00 EDT, [facility] STORE [facility], 157, cm, 12/08/22 14:27:00 EDT, Height, 145, kg, 08/29/22 20:13:00 EST, Dry... Start Date: 02/27/23 Status: Ordered meclizine 25 mg oral tablet See Instructions, PRN Dizziness, 1 tablet By Mouth 3 times a day, # 30 tablet, 0 Refills, Maintenance, 02/27/23 10:43:00 EDT, [facility]/pharmacy #2025, Partial fill upon patient request if the prescriptionis for a schedule II opioid drug., 157, cm, ... Start Date: 02/27/23 Status: Ordered meloxicam 15 mg oral tablet See Instructions, TAKE 1 TABLET BY MOUTH DAILY WITH FOOD. LABS NEEDED FOR FURTHER REFILLS, # 30 tablet, 1 Refills, Maintenance, 03/05/23 9:28:00 EDT, [facility], 157, cm, 12/08/22 14:27:00 EDT, Height, 145, [...] 0 Refills, Maintenance, 02/20/23 17:17:00 EDT, [facility], 157, cm, 12/08/2313:27:00 EDT, Height, 145, kg, 08/29/22 20:13:00 E... Start Date: 02/20/23 Status: Ordered zolpidem 10 mg oral tablet 1 tablet = 10 mg, By Mouth, Daily at bedtime, PRN for sleep, for 30 days, # 30 tablet, 0 Refills, Acute 04/11/23 9:06:00 EDT, 03/12/23 9:06:00 EDT, Tablet, [facility], 157, cm, 12/08/22 14:27:00 EDT, Height, [...] Team Personnel Name: Celestina Trinidad MD [facility] Physician - Primary Care Member Role: PCP Address: Address: [address] [place] [address] Name: Hemalatha Lucas RN Position: [facility] RN Member Role: Primary Care Nurse Name: Lauren Mack RN Position: [facility] Nurse Member Role: Primary Care Nurse Name: Madelaine Ruiz RN Position: [facility] RN Member Role: Primary Care Nurse Name: Lora Santiago RN Position: [facility] SN RN Member Role: Primary Care Nurse Name: Mayco Ro RN Position: [facility] RN Member Role: Primary Care Nurse Name: Heydi Potts RN Position: [facility] RN Member Role: Primary Care Nurse Name: Janice Romano LPN Position: [facility] RN Member Role: Primary Care Nurse Name: Nadya Low RN Position: [facility] RN Member Role: Primary Care Nurse Name: Mirna Greenfield RN Position: [facility] RN Member Role: Primary Care Nurse Name: Nessa Bonilla RN Position: [facility] Hospital Canal Structure Operator Member Role: Primary Care Nurse Care Team Related Persons Name: ROSETTADINESH Address: home [address] [place] [address] Name: BON DE Address: home [address] [address]
--- OUTSIDE RECORDS SUMMARY | 2024-06-24 14:14 | XMS_ITS | Continuity of Care Document ---
Author Organization [facility] Address [address] [place] [address]- Care Team Providers Care General Internal Medicine Physician Name Role Phone Celestina Trinidad MD Primary Care Physician Encounter [facility] Date(s): 10/25/23 - 11/24/23 [facility] [address] [place] [address]- Allergies, Adverse Reactions, Alerts No Known Allergies [...] 08/21/22 Given tetanus/diphtheria/pertussis, acel(Tdap) 7 08/13/12 Given TMWX-JzJ-4cTFC 12y+ bivalent booster vax 06/14/22 Recorded SARS-CoV-2 mRNA (vyfffav-ipvt-ovdxx) vax 02/14/22 Recorded SARS-CoV-2 (COVID-19) mRNA BNT-162b2 vac 05/06/21 Given SARS-CoV-2 (COVID-19) mRNA BNT-162b2 vac 11/04/20 Recorded SARS-CoV-2 (COVID-19) mRNA BNT-162b2 vac 10/14/20 Recorded pneumococcal 23-valent vaccine 8 04/07/19 Given 1Result Comment: screening negative 2Result Comment: [facility]# [id number] 3Result Comment: [05/25/2018] seq[facility] lot number [id number] exp 01/26/2019 [facility] [id number] 4Result Comment: [08/20/2017] [facility] [id number] 5Admin Note: VIM dated 01/29/12 GIVEN TODAY 6Result Comment: [facility]# [id number] 7Admin Note: VIM dated 08/22/11 GIVEN TODAY 8Result Comment: [facility]#[id number] Medications acetaminophen 500 mg oral capsule 2 [...] 05/17/23 16:45:00 EDT, Route to Pharmacy Electronically, [facility]/pharmacy #2024, Partial fill upon patient request [...] Gm, 0 Refills, Maintenance, 02/28/21 16:31:00 EDT, [place], Partial fill upon patient request [...] 07/31/23 19:01:00 EST, Route to Pharmacy Electronically, [facility] 157.5, cm, 07/13/23 9:57:00 EST, Height, 145.9, kg, 05/22/23 7:39:00 EDT, Dry Weight Start Date: 07/31/23 Status: Ordered gabapentin 300 mg oral capsule 600 mg, 2, capsule, By Mouth, 3 times a day, # 180 capsule, Refills 3, Tot. Refills 3, Maintenance,08/25/22 22:35:00 EST, Route to Pharmacy Electronically, [facility] Partial fill upon patient [...] tablet, 0 Refills, Maintenance, 10/12/23 6:42:00 EDT, [facility]/pharmacy #2024, 157.5, cm, 07/13/23 9:57:00 EST, Height, 145.9, kg, 05/22/23 7:39:00 EDT, Dry Weight Start Date: 10/12/23 Status: Ordered meclizine 25 mg oral tablet See Instructions, PRN Dizziness, 1 tablet By Mouth 3 times a day, # 30 tablet, 0 Refills, Maintenance, 02/27/23 10:43:00 EDT, [facility]/pharmacy #2024, Partial fill upon patient request if the prescriptionis for a schedule II opioid drug., 157, cm, ... Start Date: 02/27/23 Status: Ordered meloxicam 15 mg oral tablet See Instructions, TAKE 1 TABLET BY MOUTH DAILY WITH FOOD., # 30 tablet, 5 Refills, Maintenance, 10/08/23 17:05:00 EDT, [facility]/pharmacy #2024, 157.5, cm, 07/13/23 9:57:00 EST, Height, 145.9, kg, :39:00 EDT, Dry Weight Start Date: 10/08/23 Status: Ordered metFORMIN 500 mg oral tablet, extended release 1 tablet = 500 mg, By Mouth, Daily, # 90 tablet, 1 Refills, Maintenance, 10/24/23 11:39:00 EDT, ER Tablet, [facility]/pharmacy #2024, Partial fill upon patient request [...] tablet, 0 Refills, Maintenance, 11/05/23 16:28:00 EDT, [facility]/pharmacy #2025, Partial fill upon patient request [...] Code MRI Safety Implantable Status Assigning Authority [id number] Unknown [id number] Unknown 08/26/24 Unknown Unknown Active GS1 Patient Care team information Care Team Personnel Name: Celestina Trinidad MD Position: S Physician - Primary Care Member Role: PCP Address: Address: [address] [place] [address] Name: Hemalatha Lucas RN [facility]: [facility] [...] Care Nurse Name: Heydi Potts RN Position: [facility] [...] Care Nurse Name: Nessa Bonilla RN Position: [facility] Hand Fur Cleaner Member Role: Primary Care Nurse Care Team Related Persons Name: DINESH SARGENT Address: home [address] [place] [address] Name: BON DE Address: home [address] [place] [address]
--- OUTSIDE RECORDS SUMMARY | 2024-06-24 14:14 | XMS_ITS | Continuity of Care Document ---
Author Organization [facility] Address [address] [place] [address]- Care Team Providers Care Hearing Care Professional Name Role Phone Vivi HENNING, Celestina Givens Primary Care Physician [facility] Date[facility]s): 08/[facility]23 - 09/04/23 [facility] [address] [place], [place] [address] Allergies, Adverse Reactions, Alerts No Known Allergies [...] 08/21/22 Given tetanus/diphtheria/pertussis, acel(Tdap) 7 08/13/12 Given [id number] 12y+ bivalent booster vax 06/14/22 Recorded SARS-CoV-2 mRNA (begtstk-tmjh-vzvki) vax 02/14/22 Recorded SARS-CoV-2 (COVID-19) mRNA BNT-162b2 vac 05/06/21 Given SARS-CoV-2 (COVID-19) mRNA BNT-162b2 vac 11/04/20 Recorded SARS-CoV-2 (COVID-19) mRNA BNT-162b2 vac 10/14/20 Recorded pneumococcal 23-valent vaccine 8 04/07/19 Given 1Result Comment: screening negative 2Result Comment: [facility]# [id number] 3Result Comment: [05/25/2018] [employer] lot number [id number] exp 01/26/2019 [facility] [id number] 4Result Comment: [08/20/2017] [facility] [id number] 5Admin Note: VIM dated 01/29/12 GIVEN TODAY 6Result Comment: [facility]# [id number] 7Admin Note: VIM dated 08/22/11 GIVEN TODAY 8Result Comment: [facility]#[id number] Medications acetaminophen 500 mg oral capsule 2 [...] Refills, Maintenance, 09/02/23 8:08:00 EST, [facility], 25, APPLY TO AFFECTED AREA 4 TIMES [...] Gm, 0 Refills, Maintenance, 02/28/21 16:31:00 EDT, [place], [facility], Partial fill upon patient request [...] tablet, 2 Refills, Maintenance, 02/27/23 7:25:00 EDT, [facility] STORE 59926, 157, cm, 12/08/22 14:27:00 EDT, Height, 145, kg, 08/29/22 20:13:00 EST, Dry... Start Date: 02/27/23 Status: Ordered levothyroxine 150 mcg (0.15 mg) oral tablet 1 tablet = 150 mcg, By Mouth, Daily, # 90 tablet, 0 Refills, Maintenance, 07/15/23 17:38:00 EST, Tablet, [facility]/pharmacy #2024, Partial [...] Refills, Maintenance, 07/28/23 10:21:00 EST, [facility], 157.5, cm, 07/13/23 9:57:00 EST, Height, 145.9, [...] to severe pain. 28 days. mass merly ok, # 81 tablet, 0 Refills, Maintenance, 08/05/23 12:22:00 EST, [facility], 157.5, cm, 07/13/23 9:57:00 EST, Height, 145.9, kg, 05/22/23 7:39:00... Start Date: 08/05/23 Status: Ordered Vitamin D3 2000 intl units oral capsule 1 capsule = 50 mcg, By Mouth, Daily, # 90 capsule, 1 Refills, Maintenance, 07/15/23 17:38:00 EST, Capsule, [facility], Partial fill upon patient request if the prescription is for a schedule II opioid drug., 157.5, cm, 07/13/23 9:57:00 EST, He... Start Date: 07/15/23 Status: Ordered zolpidem 10 mg oral tablet 1 tablet = 10 mg, By Mouth, Daily at bedtime, # 30 tablet, 0 Refills, Maintenance, 08/09/23 20:17:00 EST, [facility]/pharmacy #2024, Partial fill upon [...] Code MRI Safety Implantable Status Assigning Authority [id number] [id number] Unknown [id number] Unknown 08/26/24 Unknown Unknown Active GS1 Patient Care team information Care Team Personnel Name: Celestina Trinidad MD Position: [facility] Physician - Primary Care Member Role: PCP Address: Address: [address] [place] [address]- Name: Hemalatha Lucas RN [facility] [...] Heydi Potts RN Position: [facility] SN RN Member Role: Primary Care Nurse Name: Janice Romano LPN Position: [facility] RN Member Role: Primary Care Nurse Name: Nadya Low RN Position: [facility] RN Member Role: Primary Care Nurse Name: Mirna Greenfield RN Position: [facility] RN Member Role: Primary Care Nurse Name: Nessa Bonilla RN Position: [facility] Staff Home Therapy Rn Member Role: Primary Care Nurse Care Team Related Persons Name: DINESH SARGENT Address: home [address] [place] [address] Name: BON DE Address: home [address] [place] [address]
--- OUTSIDE RECORDS SUMMARY | 2024-06-24 14:14 | XMS_ITS | Continuity of Care Document ---
Author Organization [facility] Address [address] [place] [address]- Care Team Providers Care Security Public Safety Officer Name Role Phone Florentino AHN, Elder Hannah Primary Care Physician Encounter [facility] Date(s): 03/09/21 - 04/08/21 [facility] [address] [place] [address]- Allergies, Adverse Reactions, Alerts Substance Reaction Severity [...] tetanus/diphtheria/pertussis, acel(Tdap) 6 08/13/12 Given 1Result Comment: [facility]# [id number] 2Result Comment: [05/25/2018] [employer] lot number [id number] exp 01/26/2019 [facility] [id number] 3Result Comment: [08/20/2017] [facility] [id number] 4Admin Note: VIM dated 01/29/12 GIVEN TODAY 5Result Comment: [facility]#[id number] 6Admin Note: VIM dated 08/22/11 GIVEN TODAY [...] 10/27/20 14:48:00 EDT, Route to Pharmacy Electronically, [id number], [facility]/pharmacy #202, 160.02, cm, 10/19/20 11:04:00 EDT, Height, 156... Start Date: 10/27/20 Status: Ordered betamethasone-clotrimazole 0.05%-1% topical cream 1 application, Topically, 2 times a day, # 45 Gm, 0 Refills, Maintenance, 12/27/20 14:13:00 EDT, Cream, [facility]/pharmacy #2024, Partial fill upon patient request if the prescription is for a schedule II opioid drug., 1 application Topically 2 times a day,... Start Date: 12/27/20 Status: Ordered diclofenac 1% topical gel See Instructions, APPLY TOPICALLY 4 TIMES A DAY, # 100 Gm, 1 Refills, 10/27/20 12:37:00 EDT, [facility]/pharmacy #202, 25, APPLY TOPICALLY 4 TIMES A DAY, 160.02, cm, 10/19/20 11:04:00 EDT, Height, 156.81, kg, 10/19/20 11:04:00 EDT, Dry Weight Start Date: 10/27/20 Status: Ordered Flonase 50 mcg/inh nasal spray See Instructions, 2 sprays Nares twice daily x 1 week, then once daily x 1-2 weeks until symptoms improve, # 16 Gm, 0 Refills, Maintenance, 02/28/21 16:31:00 EDT, [place], [facility]/pharmacy #2025, Partial fill upon patient request if the prescription is for... Start Date: 02/28/21 Status: Ordered FLUoxetine 10 mg oral capsule 10 mg, 1, capsule, By Mouth, Daily, Take with 20mg capsule for total of 30mg daily, # 90 capsule, Refills 0, Tot. Refills 0, Maintenance, 03/11/21 12:00:00 EDT, Route to Pharmacy Electronically, [facility]/pharmacy #202, Partial fill upon patient request if... Start Date: 03/11/21 Status: Ordered FLUoxetine 20 mg oral capsule 20 mg, 1, capsule, By Mouth, Daily, # 30 capsule, Refills 5, Tot. Refills 5, Maintenance, 12/20/20 14:39:00 EDT, Route to Pharmacy Electronically, [facility]/pharmacy #202, replacing 10mg dose, 160.02, cm,12/20/20 11:59:00 EDT, Height, 156.81, kg, 10/19/20... Start Date: 12/20/20 Status: Ordered levothyroxine 0.137 mg oral tablet See Instructions, Take 1 tablet by mouth on days 1-6, then take 2 tablets by mouth on day 7, # 121 tablet, 5 Refills, Maintenance, 12/07/20 9:46:00 EDT, [facility]/pharmacy #202, 160.02, cm, 10/19/20 11:04:00 EDT, Height, 156.81, kg, 10/19/20 11:04:00 EDT,... Start Date: 12/07/20 Status: Ordered meloxicam 15 mg oral tablet 1 tablet, By Mouth, Daily, WITH FOOD., # 30 tablet, 1 Refills, Maintenance, 02/13/21 16:32:00 EDT, [facility] STORE 606[facility], 160.02, cm, 01/04/21 10:42:00 EDT, Height, 143, [...] EST, Route to Pharmacy Electronically, [facility]/pharmacy #2025, 161, cm, 08/04/19 14:44:00 EST, Height Start Date: 08/04/19 Stop Date: 08/18/19 Status: Ordered traMADol 50 mg oral tablet 2 tablet = 100 mg, By Mouth, Every 12 hours, as needed for pain masspat checked, # 120 tablet, 2 Refills, Maintenance, 02/10/21 12:37:00 EDT, [facility]/pharmacy #2025, 160.02, cm, 01/04/21 10:42:00 EDT, Height, [...]
--- OUTSIDE RECORDS SUMMARY | 2024-06-24 14:14 | XMS_ITS | Continuity of Care Document ---
Author Organization [facility] Address [address] [place] [address]- Care Team Providers Care Stereo Plotter Operator Name Role Phone Vivi HENNING, Celestina Givens Primary Care Physician Encounter [facility] Date(s): 01/21/24 - 02/20/24 [facility] [address] [place] [address]- Allergies, Adverse Reactions, Alerts No Known Allergies [...] 08/21/22 Given tetanus/diphtheria/pertussis, acel(Tdap) 7 08/13/12 Given ZOTR-IeR-1mOUH 12y+ bivalent booster vax 06/14/22 Recorded SARS-CoV-2 mRNA (qupvczw-isac-nhlyn) vax 02/14/22 Recorded SARS-CoV-2 (COVID-19) mRNA BNT-162b2 vac 05/06/21 Given SARS-CoV-2 (COVID-19) mRNA BNT-162b2 vac 11/04/20 Recorded SARS-CoV-2 (COVID-19) mRNA BNT-162b2 vac 10/14/20 Recorded pneumococcal 23-valent vaccine 8 04/07/19 Given 1Result Comment: screening negative 2Result Comment: [facility]# [id number] 3Result Comment: [05/25/2018] [employer] lot number [id number] exp 01/26/2019 [facility] [id number] 4Result Comment: [08/20/2017] [facility] [id number] 5Admin Note: VIM dated 01/29/12 GIVEN TODAY 6Result Comment: [facility]# [id number] 7Admin Note: VIM dated 08/22/11 GIVEN TODAY 8Result Comment: [facility]#[id number] Medications acetaminophen 500 mg oral capsule 2 [...] Refills, Soft Stop, 12/06/23 17:28:00 EDT, [facility]/pharmacy #5, Partial fill upon patient request [...] 05/17/23 16:45:00 EDT, Route to Pharmacy Electronically, [facility]/pharmacy #2024, Partial fill upon patient request if the presc... Start Date: 05/17/23 Stop Date: 05/17/24 Status: Ordered diclofenac 1% topical gel See Instructions, APPLY TO AFFECTED AREA 4 TIMES A DAY, # 100 Gm, 1 Refills, Maintenance, 11/07/23 7:48:00 EDT, [facility]/pharmacy #2024, 25, APPLY TO AFFECTED AREA 4 TIMES A DAY, 157.5, cm, 10/18/23 15:15:00 EDT, Height, 145.9, kg, 05/22/23 7:39:00 EDT, . Start Date: 11/07/23 Status: Ordered diclofenac 1% topical gel See Instructions, APPLY TO AFFECTED AREA 4 TIMES A DAY. NOT COVERED, # 100 Gm, 1 Refills, Maintenance, 02/01/24 13:44:00 EDT, [facility], 30, APPLY TO AFFECTED AREA 4 TIMES [...] 0 Refills, Maintenance, 02/28/21 16:31:00 EDT, [place], [facility]/pharmacy #5, Partial fill upon patient request if the prescription is for... Start Date: 02/28/21 Status: Ordered FLUoxetine 10 mg oral capsule 1, capsule, By Mouth, Daily, INSTR:TO BE TAKEN WITH 20MG CAPSULES TO EQUAL 30MG DAILY, # 90 capsule, Refills 1, Maintenance, 01/25/24 9:11:00 EDT, Route to Pharmacy Electronically, [facility], 157.5, cm, 01/22/24 10:31:00 EDT, Height, 145.9, kg,... Start Date: 01/25/24 Status: Ordered gabapentin 300 mg oral capsule 600 mg, 2, capsule, By Mouth, 3 times a day, # 180 capsule, Refills 3, Tot. Refills 3, Maintenance,08/25/22 22:35:00 EST, Route to Pharmacy Electronically, [facility]/pharmacy #2024, Partial fill upon patient request [...] Refills, Maintenance, 12/28/23 16:17:00 EDT, [facility], 157.5, cm, 10/18/23 15:15:00 EDT, Height, 145.9, kg, 05/22/23 7:39:00 EDT, Dry Weight Start Date: 12/28/23 Status: Ordered meclizine 25 mg oral tablet See Instructions, PRN Dizziness, 1 tablet By Mouth 3 times a day, # 30 tablet, 0 Refills, Maintenance, 02/27/23 10:43:00 EDT, [facility]/pharmacy #2025, Partial fill upon patient request [...] as directed. Diagnosis: osteoarthritis, Sacroiliiac dysfunction, sciatica, 02/14/24 14:51:00 EDT, Supply Start Date: 02/14/24 Status: Ordered Rollator wheeled walker with seat [...] tablet, 0 Refills, Maintenance, 11/29/23 15:24:00 EDT, [facility]/pharmacy #2025, 157.5, cm, 10/18/23 1... Start [...] Code MRI Safety Implantable Status Assigning Authority [id number] 731 Unknown [id number] Unknown 08/26/24 Unknown Unknown Active GS1 Patient Care team information Care Team Personnel Name: Celestina Trinidad MD [facility] Physician - Primary Care Member Role: PCP Address: Address: [address] [place] [address] Name: Hemalatha Lucas RN [facility] RN Member Role: Primary Care Nurse Name: Lauren Mack RN Position: [facility] AMB Nurse Member Role: Primary Care Nurse Name: Madelaine Ruiz RN Position: [facility] RN Member Role: Primary Care Nurse Name: Lora Santiago RN Position: [facility] SN RN Member Role: Primary Care Nurse Name: Mayco Ro RN Position: [facility] RN Member Role: Primary Care Nurse Name: Heydi Potts RN Position: [facility] SN RN Member Role: Primary Care Nurse Name: Janice Romano LPN Position[facility] RN Member Role: Primary Care Nurse Name: Nadya Low RN [facility] RN Member Role: Primary Care Nurse Name: Mirna Greenfield RN [facility] RN Member Role: Primary Care Nurse Name: Nessa Bonilla RN Position: [facility] Hospital Telecommunications Cable Jointer Member Role: Primary Care Nurse Care Team Related Persons Name: DINESH SARGENT Address: [address] [place] [address] Name: BON DE Address: home [address] [place] [address]
--- OUTSIDE RECORDS SUMMARY | 2024-06-24 14:14 | XMS_ITS | Continuity of Care Document ---
Author Organization [facility] Address [address] [place] [address]- Care Team Providers Care Edging Catcher Name Role Phone Vivi HENNING, Celestina Givens Primary Care Physician [facility]counter [facility] Date(s): 04/02/23 - 05/02/23 [facility] [address] [place] [address]- Allergies, Adverse Reactions, Alerts No Known Allergies Immunizations Given and Recorded Vaccine Date Status Refusal Reason tetanus/diphtheria/pertussis, acel(Tdap) 1 08/21/22 Given tetanus/diphtheria/pertussis, acel(Tdap) 2 08/13/12 Given [id number] 12y+ bivalent booster vax 06/14/22 Recorded influenza [...] inactivated 6 07/31/12 [facility]i SARS-CoV-2 mRNA (cfvmvpp-qibl-ogrjj) vax 02/14/22 Recorded SARS-CoV-2 (COVID-19) mRNA BNT-162b2 vac 05/06/21 Given SARS-CoV-2 (COVID-19) mRNA BNT-162b2 vac 11/04/20 Recorded SARS-CoV-2 (COVID-19) mRNA BNT-162b2 vac 10/14/20 Recorded pneumococcal 23-valent vaccine 7 04/07/19 Given 1Result Comment: [facility]# [id number] 2Admin Note: VIM dated 08/22/11 GIVEN TODAY 3Result Comment: [facility]# [id number] 4Result Comment: [05/25/2018] [facility] lot number [id number] exp 01/26/2019 [facility] [id number] 5Result Comment: [08/20/2017] [facility] [id number] 6Admin Note: VIM dated 01/29/12 GIVEN TODAY 7Result Comment: [facility]#[id number] Medications acetaminophen 500 mg oral capsule 2 [...] Stop, 04/10/2215:14:00 EDT, Route to Pharmacy Electronically, [id number], [facility]/pharmacy #2025, 158, cm, 04/10/22 14:56:00 [...] 1 Refills, Maintenance, 01/08/23 9:36:00EDT, [facility], 50, APPLY TOPICALLY 4 TIMES A DAY, [...] Gm, 0 Refills, Maintenance, 02/28/21 16:31:00 EDT, [place], [facility]/pharmacy #2024, Partial fill upon patient request if the prescription is for... Start Date: 02/28/21 Status: Ordered FLUoxetine 10 mg oral capsule 10 mg, 1, capsule, By Mouth, Daily, to be taken with 20mg capsules to equal 30mg daily, # 90 capsule, Refills 1, Tot. Refills 1, Maintenance, 04/03/23 11:25:00 EDT, Route to Pharmacy Electronically, [facility]/pharmacy #2024, Partial fill upon patient reques... Start Date: 04/03/23 Status: Ordered FLUoxetine 20 mg oral capsule 1, capsule, By Mouth, Daily, # 90 capsule, Refills 1, Tot. Refills 1, Maintenance, 04/03/23 11:23:00 EDT, Route to Pharmacy Electronically, [facility]/pharmacy #2024, 157, cm, 03/14/23 11:02:00 EDT, Height,145, kg, 08/29/22 20:13:00 EST, Dry Weight Start Date: 04/03/23 Status: Ordered gabapentin 300 mg oral capsule 600 mg, 2, capsule, By Mouth, 3 times a day, # 180 capsule, Refills 3, Tot. Refills 3, Maintenance,08/25/22 22:35:00 EST, Route to Pharmacy Electronically, [facility]/pharmacy #2024, Partial fill upon patient [...] tablet, 2 Refills, Maintenance, 02/27/23 7:25:00 EDT, [facility] STORE 00167, 157, cm, 12/08/22 14:27:00 EDT, Height, 145, kg, 08/29/22 20:13:00 EST, Dry... Start Date: 02/27/23 Status: Ordered meclizine 25 mg oral tablet See Instructions, PRN Dizziness, 1 tablet By Mouth 3 times a day, # 30 tablet, 0 Refills, Maintenance, 02/27/23 10:43:00 EDT, [facility]/pharmacy #2024, Partial fill upon patient request if the prescriptionis for a schedule II opioid drug., 157, cm, ... Start Date: 02/27/23 Status: Ordered meloxicam 15 mg oral tablet See Instructions, TAKE 1 TABLET BY MOUTH DAILY WITH FOOD. LABS NEEDED FOR FURTHER REFILLS, # 30 tablet, 1 Refills, Maintenance, 05/01/23 14:45:00 EDT, [facility]/pharmacy #2025, 157, cm, 03/14/23 11:02:00 [...] tablet, 0 Refills, Maintenance, 02/20/23 17:17:00 EDT, [facility]/pharmacy #5, 157, cm, 12/08/2313:27:00 EDT, Height, [...] Care Member Role: PCP Address: Address: [address] [place] [address] Name: Hemalatha Lucas RN [facility] Care Nurse Name: Nessa Bonilla RN Position: [facility] Hospital Rubber Off Member Role: Primary Care Nurse Care Team Related Persons Name: DINESH SARGENT Address: [place] [address] Name: BON DE Address: home [address] [place] [address]
--- OUTSIDE RECORDS SUMMARY | 2024-06-24 14:14 | XMS_ITS | Continuity of Care Document ---
Author Organization [facility] Address [address] [place] [address]- Care Team Providers Care Medical Science Liaison Name Role Phone Florentino AHN, Elder Hannah Primary Care Physician [phone] [facility]counter [facility] Date(s): 01/04/21 - 01/11/21 [facility] [address] [place] [address]- Attending Physician: Lien Lopez NP Referring Physician: Florentino AHN, Elder Hannah Allergies, Adverse Reactions, Alerts Substance Reaction Severity [...] tetanus/diphtheria/pertussis, acel(Tdap) 6 08/13/12 Given 1Result Comment: [facility]# [id number] 2Result Comment: [05/25/2018] [facility] lot number [id number] exp 01/26/2019 [facility] [id number] 3Result Comment: [08/20/2017] [facility] [id number] 4Admin Note: VIM dated 01/29/12 GIVEN TODAY 5Result Comment: [facility]#[id number] 6Admin Note: VIM dated 08/22/11 GIVEN TODAY [...] 10/27/20 14:48:00 EDT, Route to Pharmacy Electronically, [id number], [facility]/pharmacy #2024, 160.02, cm, 10/19/20 11:04:00 EDT, Height, 156... Start Date: 10/27/20 Status: Ordered betamethasone-clotrimazole 0.05%-1% topical cream 1 application, Topically, 2 times a day, # 45 Gm, 0 Refills, Maintenance, 12/27/20 14:13:00 EDT, [place], [facility]/pharmacy #2024, Partial fill upon patient request if the prescription is for a schedule II opioid drug., 1 application Topically 2 times a day,... Start Date: 12/27/20 Status: Ordered diclofenac 1% topical gel See Instructions, APPLY TOPICALLY 4 TIMES A DAY, # 100 Gm, 1 Refills, 10/27/20 12:37:00 EDT, [facility]/pharmacy #2024, 25, APPLY TOPICALLY 4 TIMES A DAY, 160.02, cm, 10/19/20 11:04:00 EDT, Height, 156.81, kg, 10/19/20 11:04:00 EDT, Dry Weight Start Date: 10/27/20 Status: Ordered FLUoxetine 20 mg oral capsule 20 mg, 1, capsule, By Mouth, Daily, # 30 capsule, Refills 5, Tot. Refills 5, Maintenance, 12/20/20 14:39:00 EDT, Route to Pharmacy Electronically, [facility]/pharmacy #2024, replacing 10mg dose, 160.02, cm,12/20/20 11:59:00 EDT, Height, 156.81, kg, 10/19/20... Start Date: 12/20/20 Status: Ordered levothyroxine 0.137 mg oral tablet See Instructions, Take 1 tablet by mouth on days 1-6, then take 2 tablets by mouth on day 7, # 121 tablet, 5 Refills, Maintenance, 12/07/20 9:46:00 EDT, [facility]/pharmacy #2025, 160.02, cm, 10/19/20 11:04:00 EDT, Height, 156.81, kg, 10/19/20 11:04:00 EDT,... Start Date: 12/07/20 Status: Ordered meloxicam 15 mg oral tablet 1 tablet, By Mouth, Daily, WITH FOOD., # 30 tablet, 1 Refills, Maintenance, 12/20/20 7:39:00 EDT, [facility], 160.02, cm, 10/19/20 11:04:00 EDT, Height, 156.81, [...] 08/04/19 17:54:00 EST, Route to Pharmacy Electronically, [facility]/pharmacy #2024, 161, cm, 08/04/19 14:44:00 EST, Height Start Date: 08/04/19 Stop Date: 08/18/19 Status: Ordered traMADol 50 mg oral tablet 2 tablet = 100 mg, By Mouth, Every 12 hours, as needed for pain masspat checked, # 120 tablet, 2 Refills, Maintenance, 09/13/20 16:54:00 EST, [facility]/pharmacy #5, 161, cm, 08/18/20 15:29:00 EST, Height [...] knees(Confirmed) Active Mild recurrent major depression(Confirmed) Active Vital Signs Most recent to oldest [Reference Range]: 1 Height 160.02 cm (01/04/21 10:42 AM) Weight 143 kg (01/04/21 10:42 AM) Pulse Rate [55-90 bpm] 73 bpm (01/04/21 10:42 AM) Body Mass Index [18.5-24.99] 55.85 *>HHI* (01/04/21 10:42 AM) Blood Pressure [90-138/55-84 mm Hg] 142/ 88mm Hg *H* (01/04/21 10:42 AM) Temperature [96.8-100.4 DegF] 98.2 DegF (01/04/21 10:42 AM) Blood pressure sites Arm, right (01/04/21 10:42 AM) Temperature Route Oral (01/04/21 10:42 AM) Dry Weight 143 kg (01/04/21 10:42 AM) Weight Obtained Via Patient/family state d (01/04/21 10:42 AM) Dry Weight Obtained Via Patient/family s tated (01/04/21 10:42 AM) Social History Social History Type Response Smoking Status Current every day sm oker; Tobacco user in household: No; Type: Cigarettes; Tobacco use times per day: 1/2 ppd; entered on: 07/08/15 Sex
--- OUTSIDE RECORDS SUMMARY | 2024-06-24 14:14 | XMS_ITS | Continuity of Care Document ---
Author Organization [facility] Address [address] [place] [address]- Care Team Providers Care Greige Goods Examiner Name Role Phone Celestina Trinidad MD Primary Care Physician Encounter [facility] Date(s): 09/27/23 - 10/27/23 [facility] [address] [place] [address]- Allergies, Adverse Reactions, Alerts No Known Allergies [...] 08/21/22 Given tetanus/diphtheria/pertussis, acel(Tdap) 7 08/13/12 Given [id number] 12y+ bivalent booster vax 06/14/22 Recorded SARS-CoV-2 mRNA (ujxinci-lsuo-ajhhy) vax 02/14/22 Recorded SARS-CoV-2 (COVID-19) mRNA BNT-162b2 vac 05/06/21 Given SARS-CoV-2 (COVID-19) mRNA BNT-162b2 vac 11/04/20 Recorded SARS-CoV-2 (COVID-19) mRNA BNT-162b2 vac 10/14/20 Recorded pneumococcal 23-valent vaccine 8 04/07/19 Given 1Result Comment: screening negative 2Result Comment: [facility]# [id number] 3Result Comment: [05/25/2018] seq[employer] lot number [id number] exp 01/26/2019 [facility] 22964-318-60 4Result Comment: [08/20/2017] [facility] [id number] 5Admin Note: VIM dated 01/29/12 GIVEN TODAY 6Result Comment: [facility]# [id number] 7Admin Note: VIM dated 08/22/11 GIVEN TODAY 8Result Comment: [facility]#[id number] Medications acetaminophen 500 mg oral capsule 2 [...] 05/17/23 16:45:00 EDT, Route to Pharmacy Electronically, [facility]/pharmacy #2025, Partial fill upon patient request if the presc... Start Date: 05/17/23 Stop Date: 05/17/24 Status: Ordered diclofenac 1% topical gel See Instructions, APPLY TO AFFECTED AREA 4 TIMES A DAY, # 100 Gm, 1 Refills, Maintenance, 09/02/23 8:08:00 EST, [id number], 25, APPLY TO AFFECTED AREA 4 TIMES [...] Gm, 0 Refills, Maintenance, 02/28/21 16:31:00 EDT, [place], Partial fill upon patient request [...] 07/31/23 19:01:00 EST, [facility], cm, 07/13/23 9:57:00 EST, Height, 145.9, kg, 05/22/23 7:39:00 EDT, Dry Weight Start Date: 07/31/23 Status: Ordered gabapentin 300 mg oral capsule 600 mg, 2, capsule, By Mouth, 3 times a day, # 180 capsule, Refills 3, Tot. Refills 3, Maintenance,08/25/22 22:35:00 EST, [facility] fill upon patient [...] tablet, 0 Refills, Maintenance, 10/12/23 6:42:00 EDT, [facility]/pharmacy #2024, 157.5, cm, 07/13/23 9:57:00 EST, Height, 145.9, kg, 05/22/23 7:39:00 EDT, Dry Weight Start Date: 10/12/23 Status: Ordered meclizine 25 mg oral tablet See Instructions, PRN Dizziness, 1 tablet By Mouth 3 times a day, # 30 tablet, 0 Refills, Maintenance, 02/27/23 10:43:00 EDT, [facility]/pharmacy #2024, Partial fill [...] tablet, 0 Refills, Maintenance, 10/08/23 17:51:00 EDT, [facility]/pharmacy #2025, Partial fill upon patient [...] Code MRI Safety Implantable Status Assigning Authority [id number] 731 Unknown [id number] Unknown 08/26/24 Unknown Unknown Active GS1 Patient Care team information Care Team Personnel Name: Celestina Trinidad MD Position: [facility] Physician - Primary Care Member Role: PCP Address: Address: [address] [place] [address] Name: Hemalatha Lucas RN Position: [facility] RN Member Role: Primary Care Nurse Name: Lauren Mack RN Position: [facility] AMB Nurse Member Role: Primary Care Nurse Name: Madelaine Ruiz RN Position: [facility] RN Member Role: Primary Care Nurse Name: Lora Santiago RN Position: [facility] SN RN Member Role: Primary Care Nurse Name: Mayco Ro RN Position: [facility] RN Member Role: Primary Care Nurse Name: Heydi Potts RN Position: [facility] SN RN Member Role: Primary Care Nurse Name: Janice Romano LPN Position: [facility] RN Member Role: Primary Care Nurse Name: Nadya Low RN Position: [facility] RN Member Role: Primary Care Nurse Name: Mirna Greenfield RN Position: [facility] RN Member Role: Primary Care Nurse Name: Nessa Bonilla RN Position: [facility] Helper/Driver Member Role: Primary Care Nurse Care Team Related Persons Name: ROSETTA DINESH Address: [address] [place] [address] Name: BON DE Address: [address] [address]
--- OUTSIDE RECORDS SUMMARY | 2024-06-24 14:14 | XMS_ITS | Continuity of Care Document ---
Author Organization [facility] Address [address] [place] [address], [address] [place] [address]- Care Team Providers Care Ui Designer Name Role Phone Vivi HENNING, Celestina Givens Primary Care Physician Encounter [facility] Date(s): 09/11/23 - 10/11/[address], [address] [place] [address]- Allergies, Adverse Reactions, Alerts No Known Allergies [...] 08/21/22 Given tetanus/diphtheria/pertussis, acel(Tdap) 7 08/13/12 Given [id number] 12y+ bivalent booster vax 06/14/22 Recorded SARS-CoV-2 mRNA (ipxmmoe-mhza-szqhh) vax 02/14/22 Recorded SARS-CoV-2 (COVID-19) mRNA BNT-162b2 vac 05/06/21 Given SARS-CoV-2 (COVID-19) mRNA BNT-162b2 vac 11/04/20 Recorded SARS-CoV-2 (COVID-19) mRNA BNT-162b2 vac 10/14/20 Recorded pneumococcal 23-valent vaccine 8 04/07/19 Given 1Result Comment: screening negative 2Result Comment: [facility]# [id number] 3Result Comment: [05/25/2018] seq[employer] lot number [id number] exp 01/26/2019 [facility] 63326-457-20 4Result Comment: [08/20/2017] [facility] [id number] 5Admin Note: VIM dated 01/29/12 GIVEN TODAY 6Result Comment: [facility]# [id number] 7Admin Note: VIM dated 08/22/11 GIVEN TODAY 8Result Comment: [facility]#[id number] Medications acetaminophen 500 mg oral capsule 2 [...] Refills, Maintenance, 09/02/23 8:08:00 EST, [facility], 25, APPLY TO AFFECTED AREA 4 TIMES [...] Gm, 0 Refills, Maintenance, 02/28/21 16:31:00 EDT, [place], [facility]/pharmacy #2024, Partial fill upon patient request if the prescription is for... Start Date: 02/28/21 Status: Ordered FLUoxetine 10 mg oral capsule 10 mg, 1, capsule, By Mouth, Daily, to be taken with 20mg capsules to equal 30mg daily, # 90 capsule, Refills 1, Tot. Refills 1, Maintenance, 07/31/23 19:01:00 EST, Route to Pharmacy Electronically, [facility]/pharmacy #2024, Partial fill upon patient reques... Start Date: 07/31/23 Status: Ordered FLUoxetine 20 mg oral capsule 1, capsule, By Mouth, Daily, # 90 capsule, Refills 1, Tot. Refills 1, Maintenance, 07/31/23 19:01:00 EST, Route to Pharmacy Electronically, [facility]/pharmacy #2024, 157.5, cm, 07/13/23 9:57:00 EST, Height, 145.9, kg, 05/22/23 7:39:00 EDT, Dry Weight Start Date: 07/31/23 Status: Ordered gabapentin 300 mg oral capsule 600 mg, 2, capsule, By Mouth, 3 times a day, # 180 capsule, Refills 3, Tot. Refills 3, Maintenance,08/25/22 22:35:00 EST, [facility] fill upon patient [facility] [...] tablet, 0 Refills, Maintenance, 10/12/23 6:42:00 EDT, [facility]/pharmacy #2024, 157.5, cm, 07/13/23 9:57:00 EST, Height, 145.9, kg, 05/22/23 7:39:00 EDT, Dry Weight Start Date: 10/12/23 Status: Ordered meclizine 25 mg oral tablet See Instructions, PRN Dizziness, 1 tablet By Mouth 3 times a day, # 30 tablet, 0 Refills, Maintenance, 02/27/23 10:43:00 EDT, [facility]/pharmacy #2024, Partial fill [...] 0 Refills, Maintenance, 10/08/23 17:51:00 EDT, [facility] fill upon patient [...] Code MRI Safety Implantable Status Assigning Authority [id number] 731 Unknown [id number] Unknown 08/26/24 Unknown Unknown Active GS1 Patient Care team information Care Team Personnel Name: Celestina Trinidad MD Position: [facility] Physician - Primary Care Member Role: PCP Address: Address: [address] [place] [address] Name: Hemalatha Lucas RN Position: [facility] RN Member Role: Primary Care Nurse Name: Lauren Mack RN Position: [facility] MARY Nurse Member Role: Primary Care Nurse Name: Madelaine Ruiz RN Position: [facility] RN Member Role: Primary Care Nurse Name: Lora Santiago RN Position: [facility] RN Member Role: Primary Care Nurse Name: Mayco Ro RN Position: [facility] RN Member Role: Primary Care Nurse Name: Heydi Potts RN Position: [facility] SN RN Member Role: Primary Care Nurse Name: Janice Romano LPN Position: [facility] RN Member Role: Primary Care Nurse Name: Nadya Low RN Position: [facility] RN Member Role: Primary Care Nurse Name: Mirna Greenfield RN Position: [facility] RN Member Role: Primary Care Nurse Name: Nessa Bonilla RN Position: [facility] Hospital Natural Resources Engineer Member Role: Primary Care Nurse Care Team Related Persons Name: DINESH SARGENT Address: home [address] [address] Name: BON DE Address: home [address] [address]
--- OUTSIDE RECORDS SUMMARY | 2024-06-24 14:14 | XMS_ITS | Continuity of Care Document ---
Author Organization [facility] em Address Unknown Care Team Providers Care Mold Machine Operator Name Role Phone Celestina Trinidad MD Primary Care Physician En[place] [facility] Date(s): 03/26/23 - 07/06/23 [facility] Attending Physician: Yasemin Diaz MD Admitting Physician: Yasemin Diaz MD Allergies, Adverse Reactions, Alerts No Known Allergies Immunizations Given and Recorded Vaccine Date Status Refusal Reason tetanus/diphtheria/pertussis, acel(Tdap) 1 08/21/22 Given tetanus/diphtheria/pertussis, acel(Tdap) 2 08/13/12 Given [id number] 12y+ bivalent booster vax 06/14/22 Recorded influenza [...] inactivated 6 07/31/12 Gi hali SARS-CoV-2 mRNA (wjkzphl-diom-crxiw) vax 02/14/22 Recorded SARS-CoV-2 (COVID-19) mRNA BNT-162b2 vac 05/06/21 Given SARS-CoV-2 (COVID-19) mRNA BNT-162b2 vac 11/04/20 Recorded SARS-CoV-2 (COVID-19) mRNA BNT-162b2 vac 10/14/20 Recorded pneumococcal 23-valent vaccine 7 04/07/19 Given 1Result Comment: [facility]# 37472-632-00 2Admin Note: VIM dated 08/22/11 GIVEN TODAY 3Result Comment: [facility]# [id number] 4Result Comment: [05/25/2018] seq[facility] lot number [id number] exp 01/26/2019 [facility] 53214-505-57 5Result Comment: [08/20/2017] [facility] 26420-921-58 6Admin Note: VIM dated 01/29/12 GIVEN TODAY 7Result Comment: [facility]#[id number] Medications acetaminophen 500 mg oral capsule 2 [...] 05/17/23 16:45:00 EDT, Route to Pharmacy Electronically, [facility]/pharmacy #2025, Partial fill upon patient request if the presc... Start Date: 05/17/23 Stop Date: 05/17/24 Status: Ordered diclofenac 1% topical gel See Instructions, APPLY TOPICALLY 4 TIMES A DAY, # 100 Gm, 1 Refills, Maintenance, 06/05/23 10:25:00 EST, [facility]/pharmacy #2024, 50, APPLY TOPICALLY 4 TIMES A DAY, 157.5, cm, 05/22/23 7:39:00 EDT, Height, 145.9, kg, 05/22/23 7:39:00 EDT, Dry Weight Start Date: 06/05/23 Status: Ordered Flonase 50 mcg/inh nasal spray See Instructions, 2 sprays Nares twice daily x 1 week, then once daily x 1-2 weeks until symptoms improve, # 16 Gm, 0 Refills, Maintenance, 02/28/21 16:31:00 EDT, [place], [facility]/pharmacy #2025, Partial fill upon patient request if the prescription is for... Start Date: 02/28/21 Status: Ordered FLUoxetine 10 mg oral capsule 10 mg, 1, capsule, By Mouth, Daily, to be taken with 20mg capsules to equal 30mg daily, # 90 capsule, Refills 1, Tot. Refills 1, Maintenance, 04/03/23 11:25:00 EDT, Route to Pharmacy Electronically, [facility]/pharmacy #2025, Partial fill upon patient reques... Start Date: 04/03/23 Status: Ordered FLUoxetine 20 mg oral capsule 1, capsule, By Mouth, Daily, # 90 capsule, Refills 1, Tot. Refills 1, Maintenance, 04/03/23 11:23:00 EDT, Route to Pharmacy Electronically, [facility]/pharmacy #2025, 157, cm, 03/14/23 11:02:00 EDT, Height,145, kg, 08/29/22 20:13:00 EST, Dry Weight Start Date: 04/03/23 Status: Ordered gabapentin 300 mg oral capsule 600 mg, 2, capsule, By Mouth, 3 times a day, # 180 capsule, Refills 3, Tot. Refills 3, Maintenance,08/25/22 22:35:00 EST, Route to Pharmacy Electronically, [facility]/pharmacy #202, Partial fill upon patient [...] EDT, [id number], 157, cm, 12/08/22 14:27:00 EDT, Height, 145, kg, 08/29/22 20:13:00 EST, Dry... Start Date: 02/27/23 Status: Ordered meclizine 25 mg oral tablet See Instructions, PRN Dizziness, 1 tablet By Mouth 3 times a day, # 30 tablet, 0 Refills, Maintenance, 02/27/23 10:43:00 EDT, [facility]/pharmacy #202, Partial fill upon patient [...] 05/22/23 9:10:00 EDT, Route to Pharmacy Electronically, [facility]/pharmacy... Start Date: 05/22/23 Status: Ordered [...] 07/12/23 11:04:00 EST, 06/12/23 11:04:00 EST, Tablet, [facility]/pharmacy #2024, early refill for travel. [...] Code MRI Safety Implantable Status Assigning Authority [id number] 731 Unknown [id number] Unknown 08/26/24 Unknown Unknown Active GS1 Patient Care team information Care Team Personnel Name: Celestina Trinidad MD Position: [facility] Physician - Primary Care Member Role: PCP Address: Address: [address] [place] [address] Name: Hemalatha Lucas RN Position: [facility] RN Member Role: Primary Care Nurse Name: Lauren Mack RN Position: [facility] AMB Nurse Member Role: Primary Care Nurse Name: Madelaine Ruiz RN Position: [facility] RN Member Role: Primary Care Nurse Name: Lora Santiago RN Position: [facility] SN RN Member Role: Primary Care Nurse Name: Mayco Ro RN Position: [facility] RN Member Role: Primary Care Nurse Name: Heydi Potts RN Position: [facility] RN Member Role: Primary Care Nurse Name: Janice Romano LPN Position: [facility] RN Member Role: Primary Care Nurse Name: Nadya Low RN Position: [facility] RN Member Role: Primary Care Nurse Name: Mirna Greenfield RN Position: [facility] RN Member Role: Primary Care Nurse Name: Nessa Bonilla RN Position: [facility] Hospital Special Event Assistant Member Role: Primary Care Nurse Care Team Related Persons Name: DINESH SARGENT Address: home [address] [place] [address] Name: BON DE Address: home [address] [place] [address]
--- OUTSIDE RECORDS SUMMARY | 2024-06-24 14:14 | XMS_ITS | Continuity of Care Document ---
Author Organization [facility] Address [address] [place] [address]- Care Team Providers Care Assistive Technology Trainer Name Role Phone Florentino AHN, Elder Hannah Primary Care Physician Encounter [facility] Date(s): 04/13/20 - 05/13/20 [facility] [address] [place] [address]- [facility] Allergies, Adverse Reactions, Alerts Substance Reaction [...] 08/13/12 Given 1Result Comment: [facility]# [id number] 2Result Comment: [05/25/2018] [facility] lot number [id number] exp 01/26/2019 [facility] 18740-934-39 3Result Comment: [08/20/2017] [facility] [id number] 4Admin Note: VIM dated 01/29/12 GIVEN TODAY 5Result Comment: [facility]#[id number] 6Admin Note: VIM dated 08/22/11 GIVEN TODAY [...] PUFFS EVERY 6 HOURS NEEDED FOR WHEEZE, [facility]/pharmacy #2024 Start Date: 05/27/19 Status: Ordered diclofenac 1% topical gel 1 applicator, Topically, 4 times a day, # 100 Gm, 0 Refills, Maintenance, 02/18/20 11:51:00 EDT, Gel, [facility]/pharmacy #2024, 161, cm, 01/08/20 13:51:00 EDT, Height Start Date: 02/18/20 Status: Ordered FLUoxetine 20 mg oral capsule 20 mg, 1, capsule, By Mouth, Daily, # 30 capsule, Refills 5, Tot. Refills 5, Maintenance, 05/13/20 9:34:00 EDT, Route to Pharmacy Electronically, [facility]/pharmacy #2024, replacing 10mg dose, 161, cm, 05/13/20 8:28:00 EDT, Height Start Date: 05/13/20 Status: Ordered levothyroxine 125 mcg (0.125 mg) oral tablet 1 tablet = 125 mcg, By Mouth, Daily, # 30 tablet, 5 Refills, Maintenance, 05/13/20 9:34:00 EDT, Tablet, [facility]/pharmacy #2024, 161, cm, 05/13/20 8:28:00 EDT, Height Start Date: 05/13/20 Status: Ordered meloxicam 15 mg oral tablet 1 tablet = 15 mg, By Mouth, Daily, Take w food., # 30 tablet, 1 Refills, Maintenance, 05/10/20 12:59:00 EDT, Tablet, [facility]/pharmacy #2024, Labs needed for further refills, [...] 08/04/19 17:54:00 EST, Route to Pharmacy Electronically, [facility]/pharmacy #2025, 161, cm, 08/04/19 14:44:00 EST, Height Start Date: 08/04/19 Stop Date: 08/18/19 Status: Ordered traMADol 50 mg oral tablet 2 tablet = 100 mg, By Mouth, Every 12 hours, as needed for pain masspat checked, # 120 tablet, 2 Refills, Maintenance, 05/13/20 9:34:00 EDT, [facility]/pharmacy #5, 161, cm, 05/13/20 8:28:00 EDT, Height Start Date: 05/13/20 Stop Date: 08/11/20 Status: Ordered zolpidem 10 mg oral tablet 1 tablet = 10 mg, By Mouth, Daily at bedtime, PRN for sleep, for 30 days, masspat check may fill less, # 30 tablet, 3 Refills, Acute 09/10/20 9:34:00 EST, 05/13/20 9:34:00 EDT, Tablet, [facility]/pharmacy #5, 161, cm, 05/13/20 8:28:00 EDT, [...]
--- OUTSIDE RECORDS SUMMARY | 2024-06-24 14:14 | XMS_ITS | Continuity of Care Document ---
Author Organization [facility] Address [address] [place] [address]- Care Team Providers Care Soft Sugar Supervisor Name Role Phone Celestina Trinidad MD Primary Care Physician Encounter [facility] Date(s): 10/16/23 - 11/15/23 [facility] [address] [place] [address]- Allergies, Adverse Reactions, Alerts No Known Allergies [...] 08/21/22 Given tetanus/diphtheria/pertussis, acel(Tdap) 7 08/13/12 Given [id number] 12y+ bivalent booster vax 06/14/22 Recorded SARS-CoV-2 mRNA (bqchmbc-dqqm-vvhyn) vax 02/14/22 Recorded SARS-CoV-2 (COVID-19) mRNA BNT-162b2 vac 05/06/21 Given SARS-CoV-2 (COVID-19) mRNA BNT-162b2 vac 11/04/20 Recorded SARS-CoV-2 (COVID-19) mRNA BNT-162b2 vac 10/14/20 Recorded pneumococcal 23-valent vaccine 8 04/07/19 Given 1Result Comment: screening negative 2Result Comment: [facility]# [id number] 3Result Comment: [05/25/2018] seq[facility] lot number [id number] exp 01/26/2019 [facility] 91076-775-09 4Result Comment: [08/20/2017] [facility] [id number] 5Admin Note: VIM dated 01/29/12 GIVEN TODAY 6Result Comment: [facility]# [id number] 7Admin Note: VIM dated 08/22/11 GIVEN TODAY 8Result Comment: [facility]#[id number] Medications acetaminophen 500 mg oral capsule 2 [...] 05/17/23 16:45:00 EDT, Route to Pharmacy Electronically, [facility]/pharmacy #2024, Partial fill upon patient request if the presc... Start Date: 05/17/23 Stop Date: 05/17/24 Status: Ordered diclofenac 1% topical gel See Instructions, APPLY TO AFFECTED AREA 4 TIMES A DAY, # 100 Gm, 1 Refills, Maintenance, 11/07/23 7:48:00 EDT, [facility]/pharmacy #2024, 25, APPLY TO AFFECTED AREA 4 [...] Gm, 0 Refills, Maintenance, 02/28/21 16:31:00 EDT, [place], Partial fill upon patient request [...] 07/31/23 19:01:00 EST, Route to Pharmacy Electronically, [facility]/pharmacy #2024, 157.5, cm, 07/13/23 9:57:00 EST, Height, 145.9, kg, 05/22/23 7:39:00 EDT, Dry Weight Start Date: 07/31/23 Status: Ordered gabapentin 300 mg oral capsule 600 mg, 2, capsule, By Mouth, 3 times a day, # 180 capsule, Refills 3, Tot. Refills 3, Maintenance,08/25/22 22:35:00 EST, [facility] Partial fill upon patient request [...] tablet, 0 Refills, Maintenance, 10/12/23 6:42:00 EDT, [facility]/pharmacy #2024, 157.5, cm, 07/13/23 9:57:00 EST, Height, 145.9, kg, 05/22/23 7:39:00 EDT, Dry Weight Start Date: 10/12/23 Status: Ordered meclizine 25 mg oral tablet See Instructions, PRN Dizziness, 1 tablet By Mouth 3 times a day, # 30 tablet, 0 Refills, Maintenance, 02/27/23 10:43:00 EDT, [facility]/pharmacy #2024, Partial fill upon patient request if the prescriptionis for a schedule II opioid drug., 157, cm, ... Start Date: 02/27/23 Status: Ordered meloxicam 15 mg oral tablet See Instructions, TAKE 1 TABLET BY MOUTH DAILY WITH FOOD., # 30 tablet, 5 Refills, Maintenance, 10/08/23 17:05:00 EDT, [facility]/pharmacy #2024, 157.5, cm, 07/13/23 9:57:00 EST, Height, 145.9, kg, :39:00 EDT, Dry Weight Start Date: 10/08/23 Status: Ordered metFORMIN 500 mg oral tablet, extended release 1 tablet = 500 mg, By Mouth, Daily, # 90 tablet, 1 Refills, Maintenance, 10/24/23 11:39:00 EDT, ER Tablet, [facility]/pharmacy #2024, Partial fill upon patient request [...] 1 Refills, Maintenance, 07/15/23 17:38:00 EST, Capsule, [facility]/pharmacy #2024, Partial fill upon patient request if the prescription is for a schedule II opioid drug., 157.5, cm, 07/13/23 9:57:00 EST, He... Start Date: 07/15/23 Status: Ordered zolpidem 10 mg oral tablet 1 tablet = 10 mg, By Mouth, Daily at bedtime, # 30 tablet, 0 Refills, Maintenance, 11/05/23 16:28:00 EDT, [facility]/pharmacy #2025, Partial fill upon patient request if [...] Code MRI Safety Implantable Status Assigning Authority [id number] Unknown [id number] Unknown 08/26/24 Unknown Unknown Active GS1 Patient Care team information Care Team Personnel Name: Celestina Trinidad MD Position: S Physician - Primary Care Member Role: PCP Address: Address: [address] [place] [address] Name: Hemalatha Lucas RN Position: [facility] [...] Heydi Potts RN Position: [facility] SN RN Member Role: Primary Care Nurse Name: Janice Romano LPN Position: [facility] RN Member Role: Primary Care Nurse Name: Nadya Low RN Position: [facility] RN Member Role: Primary Care Nurse Name: Mirna Greenfield RN Position: [facility] RN Member Role: Primary Care Nurse Name: Nessa Bonilla RN Position: [facility] Rough Rounder Machine Member Role: Primary Care Nurse Care Team Related Persons Name: DINESH SARGENT Address: home [address] [place] [address] Name: BON DE Address: home [address] [place] [address]
--- OUTSIDE RECORDS SUMMARY | 2024-06-24 14:14 | XMS_ITS | Continuity of Care Document ---
Author Organization [facility] liana Address [address] [place], [place] [address]i ve [address] [place] [address]- Care Team Providers Care Building Engineer Name Role Phone Kareen HENNING, Patrick Graham Primary Care Physician [phone] [facility] Date[facility]): 02/04/20 - 03/05/20 [facility] [address] [place] [address]- [facility] Allergies, Adverse Reactions, Alerts Substance Reaction Severity [...] tetanus/diphtheria/pertussis, acel(Tdap) 6 08/13/12 Given 1Result Comment: [facility]# [id number] 2Result Comment: [05/25/2018] [facility] lot number [id number] exp 01/26/2019 [facility] [id number] 3Result Comment: [08/20/2017] [facility] [id number] 4Admin Note: VIM dated 01/29/12 GIVEN TODAY 5Result Comment: [facility]#[id number] 6Admin Note: VIM dated 08/22/11 GIVEN TODAY [...] 0 Refills, Maintenance, 02/18/20 11:51:00 EDT, Gel, [facility]/pharmacy #2024, 161, cm, 01/08/20 13:51:00 EDT, Height Start Date: 02/18/20 Status: Ordered FLUoxetine 20 mg oral capsule 20 mg, 1, capsule, By Mouth, Daily, # 30 capsule, Refills 4, Tot. Refills 4, Maintenance, 08/30/19 20:34:00 EST, Route to Pharmacy Electronically, [facility]/pharmacy #2024, replacing 10mg dose, 161, cm, 08/12/19 12:43:00 EST, Height Start Date: 08/30/19 Status: Ordered levothyroxine 125 mcg (0.125 mg) oral tablet 1 tablet = 125 mcg, By Mouth, Daily, # 30 tablet, 5 Refills, Maintenance, 11/11/19 14:50:00 EDT, Tablet, [facility]/pharmacy #2024, 161, cm, 10/07/19 9:57:00 EDT, Height Start Date: 11/11/19 Status: Ordered meloxicam 15 mg oral tablet 1 tablet = 15 mg, By Mouth, Daily, Take w food., # 30 tablet, 1 Refills, Maintenance, 03/04/20 14:47:00 EDT, Tablet, [facility]/pharmacy #2024, Labs needed [...] Route to Pharmacy Electronically, [facility]/pharmacy #2025, 161, cm, 08/04/19 14:44:00 EST, Height Start Date: 08/04/19 Stop Date: 08/18/19 Status: Ordered traMADol 50 mg oral tablet 2 tablet = 100 mg, By Mouth, Every 12 hours, as needed for pain masspat checked, # 120 tablet, 2 Refills, Maintenance, 11/04/19 6:31:00 EDT, [facility]/pharmacy #2025, 161, cm, 10/07/19 9:57:00 EDT, Height Start Date: 11/04/19 Stop Date: 02/02/20 Status: Ordered zolpidem 10 mg oral tablet 1 tablet = 10 mg, By Mouth, Daily at bedtime, PRN for sleep, for 30 days, masspat check may fill less, # 30 tablet, 3 Refills, Acute 04/17/20 12:28:00 EDT, 12/19/19 12:28:00 EDT, Tablet, [facility]/pharmacy#5, 161, cm, 10/07/19 9:57:00 EDT, Height [...]
--- OUTSIDE RECORDS SUMMARY | 2024-06-24 14:14 | XMS_ITS | Continuity of Care Document ---
Author Organization [facility] Geovanna liana Address [address] [place] [address] [address] [place] [address]- Care Team Providers Care Monitor Technician Name Role Phone Patrick Mathur MD Primary Care Physician [facility] Date[facility]s): 02/04/20 - 03/18/20 [facility] [address] [place] [address]- [place] States Attending Physician: Not on Staff, Attending MD Referring Physician: Patrick Mathur MD Allergies, Adverse Reactions, [...] acel(Tdap) 6 08/13/12 Given 1Result Comment: [facility]# [id number] 2Result Comment: [05/25/2018] [facility] lot number [id number] exp 01/26/[address] [facility] [id number] 3Result Comment: [08/20/2017] [facility] [id number] 4Admin Note: VIM dated 01/29/12 GIVEN TODAY 5Result Comment: [facility]#[id number] 6Admin Note: VIM dated 08/22/11 GIVEN TODAY [...] PUFFS EVERY 6 HOURS NEEDED FOR WHEEZE, [facility]/pharmacy #2024 Start Date: 05/27/19 Status: Ordered diclofenac 1% topical gel 1 applicator, Topically, 4 times a day, # 100 Gm, 0 Refills, Maintenance, 02/18/20 11:51:00 EDT, Gel, [facility]/pharmacy #2024, 161, cm, 01/08/20 13:51:00 EDT, Height Start Date: 02/18/20 Status: Ordered FLUoxetine 20 mg oral capsule 20 mg, 1, capsule, By Mouth, Daily, # 30 capsule, Refills 4, Tot. Refills 4, Maintenance, 08/30/19 20:34:00 EST, Route to Pharmacy Electronically, [facility]/pharmacy #2024, replacing 10mg dose, 161, cm, 08/12/19 12:43:00 EST, Height Start Date: 08/30/19 Status: Ordered levothyroxine 125 mcg (0.125 mg) oral tablet 1 tablet = 125 mcg, By Mouth, Daily, # 30 tablet, 5 Refills, Maintenance, 11/11/19 14:50:00 EDT, Tablet, [facility]/pharmacy #2024, 161, cm, 10/07/19 9:57:00 EDT, Height Start Date: 11/11/19 Status: Ordered meloxicam 15 mg oral tablet 1 tablet = 15 mg, By Mouth, Daily, Take w food., # 30 tablet, 1 Refills, Maintenance, 03/04/20 14:47:00 EDT, Tablet, [facility]/pharmacy #2024, Labs needed for further refills, [...] 08/04/19 17:54:00 EST, Route to Pharmacy Electronically, [facility]/pharmacy #2025, 161, cm, 08/04/19 14:44:00 EST, Height Start Date: 08/04/19 Stop Date: 08/18/19 Status: Ordered traMADol 50 mg oral tablet 2 tablet = 100 mg, By Mouth, Every 12 hours, as needed for pain masspat checked, # 120 tablet, 2 Refills, Maintenance, 03/11/20 16:48:00 EDT, [facility]/pharmacy #5, 161, cm, 02/24/20 10:51:00 EDT, Height Start Date: 03/11/20 Stop Date: 06/09/20 Status: Ordered zolpidem 10 mg oral tablet 1 tablet = 10 mg, By Mouth, Daily at bedtime, PRN for sleep, for 30 days, masspat check may fill less, # 30 tablet, 3 Refills, Acute 04/17/20 12:28:00 EDT, 12/19/19 12:28:00 EDT, Tablet, [facility]/pharmacy#5, 161, cm, 10/07/19 9:57:00 EDT, Height Start [...]
--- OUTSIDE RECORDS SUMMARY | 2024-06-24 14:14 | XMS_ITS | Continuity of Care Document ---
Author Organization [facility] Address [address] [place] [address]- Care Team Providers Care Proration Clerk Name Role Phone Vivi HENNING, Celestina Givens Primary Care Physician [facility] Date[facility]s): 06/14/23 - 07/14/23 [facility] [address] [place], [place] [address] Allergies, Adverse Reactions, Alerts No [...] 08/21/22 Given tetanus/diphtheria/pertussis, acel(Tdap) 7 08/13/12 Given [id number] 12y+ bivalent booster vax 06/14/22 Recorded SARS-CoV-2 mRNA (luygjxo-caty-vmugp) vax 02/14/22 Recorded SARS-CoV-2 (COVID-19) mRNA BNT-162b2 vac 05/06/21 Given SARS-CoV-2 (COVID-19) mRNA BNT-162b2 vac 11/04/20 Recorded SARS-CoV-2 (COVID-19) mRNA BNT-162b2 vac 10/14/20 Recorded pneumococcal 23-valent vaccine 8 04/07/19 Given 1Result Comment: screening negative 2Result Comment: [facility]# [id number] 3Result Comment: [05/25/2018] [facility] lot number [id number] exp 01/26/2019 [facility] [id number] 4Result Comment: [08/20/2017] [facility] [id number] 5Admin Note: VIM dated 01/29/12 GIVEN TODAY 6Result Comment: [facility]# [id number] 7Admin Note: VIM dated 08/22/11 GIVEN TODAY 8Result Comment: [facility]#[id number] Medications acetaminophen 500 mg oral capsule 2 [...] Gm, 0 Refills, Maintenance, 02/28/21 16:31:00 EDT, [place], [facility], Partial fill upon patient request [...] 22:35:00 EST, Route to Pharmacy Electronically, [facility]/pharmacy #2025, Partial fill upon patient request [...] Refills, Maintenance, 02/27/23 7:25:00 EDT, [id number], 157, cm, 12/08/22 14:27:00 EDT, Height, 145, kg, 08/29/22 20:13:00 EST, Dry... Start Date: 02/27/23 Status: Ordered meclizine 25 mg oral tablet See Instructions, PRN Dizziness, 1 tablet By Mouth 3 times a day, # 30 tablet, 0 Refills, Maintenance, 02/27/23 10:43:00 EDT, [facility]/pharmacy #2024, Partial fill upon patient request if the prescriptionis for a schedule II opioid drug., 157, cm, ... Start Date: 02/27/23 Status: Ordered meloxicam 15 mg oral tablet See Instructions, TAKE 1 TABLET BY MOUTH DAILY WITH FOOD. LABS NEEDED FOR FURTHER REFILLS, # 30 tablet, 1 Refills, Maintenance, 05/01/23 14:45:00 EDT, [facility], 157, cm, 03/14/23 11:02:00 EDT, Height, [...] Code MRI Safety Implantable Status Assigning Authority [id number] Unknown [id number] Unknown 08/26/24 Unknown Unknown Active GS1 Patient Care team information Care Team Personnel Name: Celestina Trinidad MD Position: [facility] Physician - Primary Care Member Role: PCP Address: Address: [address] [place] [address] Name: Hemalatha Lucas RN Position: [facility] RN Member Role: Primary Care Nurse Name: Lauren Mack RN Position: [facility] AMB Nurse Member Role: Primary Care Nurse Name: Madelaine Ruiz RN Position: [facility] RN Member Role: Primary Care Nurse Name: Lora Santigao RN Position: [facility] SN RN Member Role: Primary Care Nurse Name: Mayco Ro RN Position: [facility] RN Member Role: Primary Care Nurse Name: Heydi Potts RN Position: [facility] SN RN Member Role: Primary Care Nurse Name: Janice Romano LPN Position: [facility] RN Member Role: Primary Care Nurse Name: Nadya Low RN Position: [facility] RN Member Role: Primary Care Nurse Name: Mirna Greenfield RN Position: [facility] RN Member Role: Primary Care Nurse Name: Nessa Bonilla RN Position: [facility] Hospital Bottle Feeder Member Role: Primary Care Nurse Care Team Related Persons Name: ROSETTADINESH AVILA Address: home [address] [place] [address] Name: BON DE Address: home [address] [place] [id number]
--- OUTSIDE RECORDS SUMMARY | 2024-06-24 14:14 | XMS_ITS | Continuity of Care Document ---
Author Organization [facility] Address [address] [place] [address]- Care Team Providers Care Supervisor Mails Name Role Phone Noe AHN, Mónica Graham Primary Care Physician [place] [facility] [place] Date(s): 07/13/21 - 07/20/21 [facility] [address] [place] [address]- Encounter Diagnosis Left shoulder strain(Discharge Diagnosis) - 07/13/21 Attending Physician: Lalo Mason MD Referring Physician: Mónica Liu NP Allergies, Adverse Reactions, Alerts Substance Reaction [...] 1Result Comment: [facility]# [id number] 2Result Comment: [05/25/2018] [facility] lot number [id number] exp 01/26/[address] [facility] [id number] 3Result Comment: [08/20/2017] [facility] [id number] 4Admin Note: VIM dated 01/29/12 GIVEN TODAY 5Result Comment: [facility]#[id number] 6Admin Note: VIM dated 08/22/11 GIVEN TODAY [...] 10/27/20 14:48:00 EDT, Route to Pharmacy Electronically, [id number], [facility]/pharmacy #2025, 160.02, cm, 10/19/20 11:04:00 EDT, Height, 156... [...] Gm, 0 Refills, Maintenance, 02/28/21 16:31:00 EDT, [place], [facility], Partial fill upon patient request if the prescription is for... Start Date: 02/28/21 Status: Ordered FLUoxetine 10 mg oral capsule 10 mg, 1, capsule, By Mouth, Daily, Take with 20mg capsule for total of 30mg daily, # 90 capsule, Refills 1, Tot. Refills 1, Maintenance, 05/04/21 16:44:00 EDT, Route to Pharmacy Electronically, [facility]/pharmacy #2024, Partial fill upon patient request if... Start Date: 05/04/21 Status: Ordered FLUoxetine 20 mg oral capsule 20 mg, 1, capsule, By Mouth, Daily, Take with Fluoxetine 10mg for a total of 30mg, # 90 capsule, Refills 1, Tot. Refills 1, Maintenance, 05/04/21 16:44:00 EDT, Route to Pharmacy Electronically, [facility]/pharmacy #202, replacing 10mg dose, 160.02, cm, 0... Start Date: 05/04/21 Status: Ordered levothyroxine 0.137 mg oral tablet See Instructions, Take 1 tablet by mouth on days 1-6, then take 2 tablets by mouth on day 7, # 121 tablet, 5 Refills, Maintenance, 12/07/20 9:46:00 EDT, [facility]/pharmacy #2024, 160.02, cm, 10/19/20 11:04:00 EDT, Height, 156.81, kg, 10/19/20 11:04:00 EDT,... Start Date: 12/07/20 Status: Ordered meclizine 25 mg oral tablet See Instructions, PRN Dizziness, 1 tablet By Mouth 3 times a day, # 30 tablet, 0 Refills, Maintenance, 05/11/21 13:11:00 EDT, [facility]/pharmacy #2024, Partial fill upon patient request if the prescriptionis for a schedule II opioid drug., 160.02, cm, 0... Start Date: 05/11/21 Status: Ordered meloxicam 15 mg oral tablet 1 tablet, By Mouth, Daily, WITH FOOD., # 30 tablet, 0 Refills, [facility] STORE 20468, 160.02, cm, 05/06/21 10:09:00 EDT, Height, 143, [...] 17:54:00 EST, Route to Pharmacy Electronically, [facility]/pharmacy #5, 161, cm, 08/04/19 14:44:00 EST, Height Start Date: 08/04/19 Stop Date: 08/18/19 Status: Ordered traMADol 50 mg oral tablet 2 tablet = 100 mg, By Mouth, Every 12 hours, as needed for pain masspat checked, # 112 tablet, 0 Refills, Maintenance, 07/20/21 17:37:00 EST, [facility]/pharmacy #5, 160.02, cm, 07/13/21 15:00:00 EST, Height, 143, kg, 01/04/21 10:42:00 EDT, Dry Weight Start Date: 07/20/21 Stop Date: 08/17/21 Status: Ordered zolpidem 10 mg oral tablet 1 tablet = 10 mg, By Mouth, Daily at bedtime, PRN for sleep, for 30 days, masspat check may fill less, # 30 tablet, 3 Refills, Acute 09/08/21 13:11:00 EST, 05/11/21 13:11:00 EDT, Tablet, [facility]/pharmacy#2025, 160.02, cm, 05/06/21 10:09:00 EDT, Height,... Start Date: 05/11/21 Stop Date: 09/08/21 Status: Ordered Problem List Condition Effective Dates Status Health Status Inform ant Acquired hypothyroidism(Confirmed) Active Asthma(Confirmed) Active BMI 50.0-59.9, adult(Confirmed) Active Eczema(Confirmed) Active Hirsutism(Confirmed) Active Obesity(Confirmed) Active Osteoarthritis of both knees(Confirmed) Active Mild recurrent major depression(Confirmed) Active Diagnosis Diagnosis Type Effective Dates Health Status Cl inical Service Informant Left shoulder strain Discharge Diagnosis 07/13/21 Vital Signs Most recent to oldest [Reference Range]: 1 Height 160.02 cm (07/13/21 3:00 PM) Oxygen Saturation [94-100 %] 97 % (07/13/21 3:00 PM) Pulse Rate [55-90 bpm] 76 bpm (07/13/21 3:00 PM) Blood Pressure [90-138/55-84 mm Hg] 185/ 99mm Hg *H* (07/13/21 3:00 PM) Respiratory Rate [16-30 br/min] 18 br/mi n (07/13/21 3:00 PM) Temperature [96.8-100.4 DegF] 97.3 DegF (07/13/21 3:00 PM) Mode of Delivery (Oxygen) Room air (07/13/21 3:00 PM) Blood pressure sites Arm, right (07/13/21 3:00 PM) Temperature Route Temporal (07/13/21 3:00 PM) Social History Social History Type Response Smoking Status Current every day oliva weinberg; Tobacco user in household: No; Type: Cigarettes; Tobacco use times per day: 1/2 ppd; entered on: 07/08/15 Sex
--- OUTSIDE RECORDS SUMMARY | 2024-06-24 14:14 | XMS_ITS | Continuity of Care Document ---
Author Organization [facility] Address [address] [place] [address]- Care Team Providers Care Major Assembly Lineman Name Role Phone Vivi HENNING, Celestina Givens Primary Care Physician [place] [facility] [place]25[place]22 - 10/25/22 [facility] [address] [place] [address]- Allergies, Adverse Reactions, Alerts No Known Allergies Immunizations Given and Recorded Vaccine Date Status Refusal Reason tetanus/diphtheria/pertussis, acel(Tdap) 1 08/21/22 Given tetanus/diphtheria/pertussis, acel(Tdap) 2 08/13/12 Given [id number] 12y+ bivalent booster vax 06/14/22 Recorded influenza [...] inactivated 6 07/31/12 Gi hali SARS-CoV-2 mRNA (axgxklr-tdpz-worwm) vax 02/14/22 Recorded SARS-CoV-2 (COVID-19) mRNA BNT-162b2 vac 05/06/21 Given SARS-CoV-2 (COVID-19) mRNA BNT-162b2 vac 11/04/20 Recorded SARS-CoV-2 (COVID-19) mRNA BNT-162b2 vac 10/14/20 Recorded pneumococcal 23-valent vaccine 7 04/07/19 Given 1Result Comment: [facility]# [id number] 2Admin Note: VIM dated 08/22/11 GIVEN TODAY 3Result Comment: [facility]# [id number] 4Result Comment: [05/25/2018] [facility] lot number [id number] exp 01/26/2019 [facility] [id number] 5Result Comment: [08/20/2017] [facility] [id number] 6Admin Note: VIM dated 01/29/12 GIVEN TODAY 7Result Comment: [facility]#[id number] Medications acetaminophen 500 mg oral capsule 2 [...] Stop, 04/10/2215:14:00 EDT, Route to Pharmacy Electronically, [id number], [facility]/pharmacy #2025, 158, cm, 04/10/22 14:56:00 EDT, Height, 143,... Start Date: 04/10/22 Status: Ordered amLODIPine 10 mg oral tablet 1 tablet, By Mouth, Daily, # 90 tablet, 0 Refills, Maintenance, 10/23/22 12:47:00 EDT, [facility], 157, cm, 09/13/22 15:58:00 EST, Height, 145, kg, 08/29/22 20:13:00 EST, Dry Weight Start Date: 10/23/22 Status: Ordered budesonide-formoterol 80 mcg-4.5 mcg/inh inhalation aerosol with adapter 2, puffs, Inhalation, 2 times a day, PRN, use with spacer chamber, rinse mouth and throat after use, # 10.2 Gm, Refills 5, Tot. Refills 5, Maintenance, 09/12/22 11:06:00 EST, Aerosol, Route to Pharmacy Electronically, [id number]... Start Date: 09/12/22 Status: Ordered cilostazol 100 mg oral tablet 1 tablet, By Mouth, 2 times a day, # 60 tablet, 0 Refills, Maintenance, 10/23/22 12:47:00 EDT, [facility], 157, cm, 09/13/22 15:58:00 EST, Height, 145, [...] 08/31/22 13:30:00 EST, Route to Pharmacy Electronically, [facility]/pharmacy #2025, Partial fill upon patient request if the p... Start Date: 08/31/22 Status: Ordered Flonase 50 mcg/inh nasal spray See Instructions, 2 sprays Nares twice daily x 1 week, then once daily x 1-2 weeks until symptoms improve, # 16 Gm, 0 Refills, Maintenance, 02/28/21 16:31:00 EDT, [place], [facility]/pharmacy #2025, Partial fill upon patient request if the prescription is for... Start Date: 02/28/21 Status: Ordered FLUoxetine 20 mg oral capsule 1, capsule, By Mouth, Daily, # 90 capsule, Refills 1, Maintenance, 10/23/22 12:47:00 EDT, Route to Pharmacy Electronically, [facility], 157, cm, 09/13/22 15:58:00 EST, Height, 145, kg, 08/29/22 20:13:00 EST, Dry Weight Start Date: 10/23/22 Status: Ordered furosemide 20 mg oral tablet 1, tablet, By Mouth, Daily, MAY REPEAT IF NEEDED IN 2 HOURS, # 30 tablet, Refills 0, Maintenance, 10/18/22 21:31:00 EDT, Route to Pharmacy Electronically, [facility], 157, cm, 09/13/22 15:58:00 EST, Height, 145, kg, 08/29/22 20:13:00 EST, Dry Weight Start Date: 10/18/22 Status: Ordered gabapentin 300 mg oral capsule 600 mg, 2, capsule, By Mouth, 3 times a day, # 180 capsule, Refills 3, Tot. Refills 3, Maintenance,08/25/22 22:35:00 EST, Route to Pharmacy Electronically, [facility]/pharmacy #2024, Partial fill upon patient [...] 1 Refills, Maintenance, 07/03/22 14:41:00 EST, Tablet, [facility]/pharmacy #2024, Partial fill upon patient request if the prescription is for a schedule II opioid dr... Start Date: 07/03/22 Status: Ordered meclizine 25 mg oral tablet See Instructions, PRN Dizziness, 1 tablet By Mouth 3 times a day, # 30 tablet, 0 Refills, Maintenance, 05/11/21 13:11:00 EDT, [facility]/pharmacy #2024, Partial fill upon patient request if the prescriptionis for a schedule II opioid drug., 160.02, cm, 10/0... Start Date: 05/11/21 Status: Ordered meloxicam 15 mg oral tablet See Instructions, TAKE 1 TABLET BY MOUTH DAILY WITH FOOD. LABS NEEDED FOR FURTHER REFILLS, # 30 tablet, 3 Refills, Maintenance, 10/18/22 21:31:00 EDT, [facility] STORE 827[facility], 157, cm, 09/13/22 15:58:00 EST,Height, 145, kg, [...] 09/05/22 16:29:00 EST, Route to Pharmacy Electronically, [facility]/pharmacy #2025, Partialfill upon patient request if the prescription is fo... Start Date: 09/05/22 Stop Date: 09/12/22 Status: Ordered traMADol 50 mg oral tablet See Instructions, 2 tab po qam and one tab po q pm prn moderate to severe pain. 28 days. mass pat ok, # 81 tablet, 0 Refills, Maintenance, 09/21/22 16:44:00 EST, [facility], 157, cm, 09/13/2314:58:00 EST, Height, [...] Personnel Name: Celestina Trinidad MD Position: S Primary Care Physician Member Role: PCP Address: Address: [address] [place] [address]- Name: Hemalatha Lucas RN Position: [facility] RN Member Role: Primary Care Nurse Name: Lauren Mack RN Position: [facility] AMB Nurse Member Role: Primary Care Nurse Name: Madelaine Ruiz RN Position: [facility] RN Member Role: Primary Care Nurse Name: Loar Santiago RN Position: [facility] SN RN Member Role: Primary Care Nurse Name: Mayco Ro RN Position: [facility] RN Member Role: Primary Care Nurse Name: Heydi Potts RN Position: [facility] RN Member Role: Primary Care Nurse Name: Janice Romano LPN Position: [facility] RN Member Role: Primary Care Nurse Name: Nadya Low RN Position: [facility] RN Member Role: Primary Care Nurse Name: Mirna Greenfield RN Position: [facility] RN Member Role: Primary Care Nurse Name: Nessa Bonilla RN Position: [facility] Secretary Board Of Commissioners Member Role: Primary Care Nurse Care Team Related Persons Name: DINESH SARGENT Address: home [address] [place] [address] Name: BON DE Address: home [address] [place] [address]
--- OUTSIDE RECORDS SUMMARY | 2024-06-24 14:14 | XMS_ITS | Continuity of Care Document ---
Author Organization [facility] Address [address] [place] [address]- Care Team Providers Care Rehabilitation Aide Name Role Phone Vivi HENNING, Celestina Givens Primary Care Physician [facility] Date[facility]): 09[facility]22 - 10/30/22 [facility] [address] [place] [address]- Allergies, Adverse Reactions, Alerts No Known Allergies Immunizations Given and Recorded Vaccine Date Status Refusal Reason tetanus/diphtheria/pertussis, acel(Tdap) 1 08/21/22 Given tetanus/diphtheria/pertussis, acel(Tdap) 2 08/13/12 Given [id number] 12y+ bivalent booster vax 06/14/22 Recorded influenza [...] inactivated 6 07/31/12 Gi hali SARS-CoV-2 mRNA (uvrozsm-mysy-kxtqu) vax 02/14/22 Recorded SARS-CoV-2 (COVID-19) mRNA BNT-162b2 vac 05/06/21 Given SARS-CoV-2 (COVID-19) mRNA BNT-162b2 vac 11/04/20 Recorded SARS-CoV-2 (COVID-19) mRNA BNT-162b2 vac 10/14/20 Recorded pneumococcal 23-valent vaccine 7 04/07/19 Given 1Result Comment: [facility]# [id number] 2Admin Note: VIM dated 08/22/11 GIVEN TODAY 3Result Comment: [facility]# [id number] 4Result Comment: [05/25/2018] [facility] lot number [id number] exp 01/26/2019 [facility] [id number] 5Result Comment: [08/20/2017] [facility] [id number] 6Admin Note: VIM dated 01/29/12 GIVEN TODAY 7Result Comment: [facility]#[id number] Medications acetaminophen 500 mg oral capsule 2 [...] Stop, 04/10/2215:14:00 EDT, Route to Pharmacy Electronically, [id number], [facility]/pharmacy #2025, 158, cm, 04/10/22 14:56:00 EDT, Height, 143,... Start Date: 04/10/22 Status: Ordered amLODIPine 10 mg oral tablet 1 tablet, By Mouth, Daily, # 90 tablet, 0 Refills, Maintenance, 10/23/22 12:47:00 EDT, [facility] STORE 16[facility], 157, cm, 09/13/22 15:58:00 EST, Height, 145, kg, 08/29/22 20:13:00 EST, Dry Weight Start Date: 10/23/22 Status: Ordered budesonide-formoterol 80 mcg-4.5 mcg/inh inhalation aerosol with adapter 2, puffs, Inhalation, 2 times a day, PRN, use with spacer chamber, rinse mouth and throat after use, # 10.2 Gm, Refills 5, Tot. Refills 5, Maintenance, 09/12/22 11:06:00 EST, Aerosol, Route to Pharmacy Electronically, [id number]... Start Date: 09/12/22 Status: Ordered cilostazol 100 mg oral tablet 1 tablet, By Mouth, 2 times a day, # 60 tablet, 0 Refills, Maintenance, 10/23/22 12:47:00 EDT, [facility], 157, cm, 09/13/22 15:58:00 EST, Height, 145, [...] 08/31/22 13:30:00 EST, Route to Pharmacy Electronically, [facility]/pharmacy #2025, Partial fill upon patient request if the p... Start Date: 08/31/22 Status: Ordered Flonase 50 mcg/inh nasal spray See Instructions, 2 sprays Nares twice daily x 1 week, then once daily x 1-2 weeks until symptoms improve, # 16 Gm, 0 Refills, Maintenance, 02/28/21 16:31:00 EDT, [place], [facility]/pharmacy #2025, Partial fill upon patient request if the prescription is for... Start Date: 02/28/21 Status: Ordered FLUoxetine 20 mg oral capsule 1, capsule, By Mouth, Daily, # 90 capsule, Refills 1, Maintenance, 10/23/22 12:47:00 EDT, Route to Pharmacy Electronically, [facility], 157, cm, 09/13/22 15:58:00 EST, Height, 145, kg, 08/29/22 20:13:00 EST, Dry Weight Start Date: 10/23/22 Status: Ordered furosemide 20 mg oral tablet 1, tablet, By Mouth, Daily, MAY REPEAT IF NEEDED IN 2 HOURS, # 30 tablet, Refills 0, Maintenance, 10/29/22 21:42:00 EDT, Route to Pharmacy Electronically, [facility], 157, cm, 09/13/22 15:58:00 EST, Height, 145, kg, 08/29/22 20:13:00 EST, Dry Weight Start Date: 10/29/22 Status: Ordered gabapentin 300 mg oral capsule 600 mg, 2, capsule, By Mouth, 3 times a day, # 180 capsule, Refills 3, Tot. Refills 3, Maintenance,08/25/22 22:35:00 EST, [facility] Electronically, [facility] 1 Refills, Maintenance, 07/03/22 14:41:00 EST, Tablet, [facility]/pharmacy #202, Partial fill upon patient request if the prescription is for a schedule II opioid dr... Start Date: 07/03/22 Status: Ordered meclizine 25 mg oral tablet See Instructions, PRN Dizziness, 1 tablet By Mouth 3 times a day, # 30 tablet, 0 Refills, Maintenance, 05/11/21 13:11:00 EDT, [facility]/pharmacy #202, Partial fill upon patient request if the prescriptionis for a schedule II opioid drug., 160.02, cm, 100... Start Date: 05/11/21 Status: Ordered meloxicam 15 mg oral tablet See Instructions, TAKE 1 TABLET BY MOUTH DAILY WITH FOOD. LABS NEEDED FOR FURTHER REFILLS, # 30 tablet, 3 Refills, Maintenance, 10/18/22 21:31:00 EDT, [facility], 157, cm, 09/13/22 15:58:00 EST,Height, 145, kg, [...] 09/05/22 16:29:00 EST, Route to Pharmacy Electronically, [facility]/pharmacy #2025, Partialfill upon patient request if the [...] 11/20/22 16:47:00 EDT, 10/21/22 16:47:00 EDT, Tablet, [facility], 157, cm, 09/13/22 15:58:00 EST, Height, 145... [...] Physician Member Role: PCP Address: Address: [address] [place] [address] Name: Hemalatha Lucas RN Position: [facility] [...] Care Nurse Name: Nessa Bonilla RN Position: [facility] Collection Systems Administrator Member Role: Primary Care Nurse Care Team Related Persons Name: DINESH SARGENT Address: home [address] [place] [address] Name: BON DE Address: home [address] [place] [id number]
--- OUTSIDE RECORDS SUMMARY | 2024-06-24 14:15 | XMS_ITS | Continuity of Care Document ---
Author Organization [facility] Address [address] [place] [address]- Care Team Providers Care Jail Keeper Name Role Phone Yolanda AHN, Padmaja Pelayo Primary Care Physician Encounter [facility] Date(s): 10/04/21 - 10/11/21 [facility] [address] [place] [address]- Encounter Diagnosis Umbilical pain(Discharge Diagnosis) - 10/04/21 Attending Physician: Mónica Liu NP Allergies, Adverse Reactions, Alerts No Known [...] [facility]# [id number] 2Result Comment: [05/25/2018] [facility] lot number [id number] exp 01/26/[address] [facility] 87265-884-64 3Result Comment: [08/20/2017] [facility] [id number] 4Admin Note: VIM dated 01/29/12 GIVEN TODAY 5Result Comment: [facility]#[id number] 6Admin Note: VIM dated 08/22/11 GIVEN TODAY [...] Replace Required Details, Route to Pharmacy Electronically, [id number]... Start Date: 09/15/21 Status: Ordered Aerochamber w/Mask [...] 07/25/21 16:53:00 EST, Route to Pharmacy Electronically, [id number], [facility]/pharmacy #2024, 160.02, cm, 07/25/21 16:20:00 EST, Height, [...] Gm, 0 Refills, Maintenance, 02/28/21 16:31:00 EDT, [place], [facility]/pharmacy #2024, Partial fill upon patient request if the prescription is for... Start Date: 02/28/21 Status: Ordered FLUoxetine 10 mg oral capsule 10 mg, 1, capsule, By Mouth, Daily, Take with 20mg capsule for total of 30mg daily, # 90 capsule, Refills 1, Tot. Refills 1, Maintenance, 09/19/21 12:45:00 EST, Route to Pharmacy Electronically, [facility]/pharmacy #2024, Partial fill upon patient request if... Start Date: 09/19/21 Status: Ordered FLUoxetine 20 mg oral capsule 20 mg, 1, capsule, By Mouth, Daily, Take with Fluoxetine 10mg for a total of 30mg, # 90 capsule, Refills 1, Tot. Refills 1, Maintenance, 05/04/21 16:44:00 EDT, Route to Pharmacy Electronically, [facility]/pharmacy #2024, replacing 10mg dose, 160.02, cm, 080... Start Date: 05/04/21 Status: Ordered levothyroxine 0.137 [...] 0 Refills, Maintenance, 05/11/21 13:11:00 EDT, [facility]/pharmacy #2025, Partial fill upon patient request if the prescriptionis for a schedule II opioid drug., 160.02, cm, 10/0... Start Date: 05/11/21 Status: Ordered meloxicam 15 mg oral tablet 1 tablet, By Mouth, Daily, WITH FOOD., # 30 tablet, 3 Refills, 09/19/21 12:46:00 EST, [facility]/pharmacy #2025, 160.02, cm, 07/25/21 16:20:00 EST, Height, [...] 13:47:00 EST, Aerosol, Route to Pharmacy Electronically, [id number], [facility]/pharmacy #2024, 160.02, cm, 07/25/21 16:20:00 EST, [place]... Start Date: 10/03/21 Status: Ordered traMADol 50 mg oral tablet 2 tablet = 100 mg, By Mouth, Every 12 hours, as needed for pain masspat checked, # 112 tablet, 0 Refills, Maintenance, 09/20/21 10:55:00 EST, [facility]/pharmacy #2025, 160.02, cm, 07/25/21 16:20:00 EST, Height, [...] Mild persistent asthma witho ut complication(Confirmed) Active Diagnosis Diagnosis Type Effective Dates Health Status Cl inical Service Informant Umbilical pain Discharge Diagnosis 10/04/21 Vital Signs Most recent to oldest [Reference Range]: 1 2 Height 160.02 cm (10/04/21 10:38 AM) 160.02 cm (10/04/21 10:31 AM) Oxygen Saturation [94-100 %] 97 % (10/04/21 10:31 AM) Pulse Rate [55-90 bpm] 72 bpm (10/04/21 10:31 AM) Blood Pressure [90-138/55-84 mm Hg] 169/ 94mm Hg *H* (10/04/21 10:38 AM) 178/84mm Hg *H* (10/04/21 10:31 AM) Respiratory Rate [16-30 br/min] 26 br/mi n (10/04/21 10:31 AM) Blood pressure sites Arm, right (10/04/21 10:38 AM) Arm, right (10/04/21 10:31 AM) Social History Social History Type Response Smoking Status Former smoker, quit more than 30 days ago entered on: 07/25/21 Sex
--- OUTSIDE RECORDS SUMMARY | 2024-06-24 14:15 | XMS_ITS | Continuity of Care Document ---
Author Organization [facility] Address [address] [place] [address]- Care Team Providers Care Engine Dynamometer Tester Name Role Phone Yolanda AHN, Padmaja Pelayo Primary Care Physician [phone] Encounter [facility] Date(s): 11/11/21 - 12/11/21 [facility] [address] [place] [address]- Allergies, Adverse Reactions, Alerts No Known Allergies [...] Given 1Result Comment: [facility]# 02328-618-27 2Result Comment: [05/25/2018] [facility] lot number [id number] exp 01/26/2019 [facility] [id number] 3Result Comment: [08/20/2017] [facility] 60486-592-94 4Admin Note: VIM dated 01/29/12 GIVEN TODAY 5Result Comment: [facility]#[id number] 6Admin Note: VIM dated 08/22/11 GIVEN TODAY [...] Replace Required Details, Route to Pharmacy Electronically, [id number]... Start Date: 10/28/21 Status: Ordered Aerochamber w/Mask [...] 07/25/21 16:53:00 EST, Route to Pharmacy Electronically, [id number], [facility]/pharmacy #2025, 160.02, cm, 07/25/21 16:20:00 EST, [...] Gm, 0 Refills, Maintenance, 02/28/21 16:31:00 EDT, [place], [facility]/pharmacy #2025, Partial fill upon patient request if the prescription is for... Start Date: 02/28/21 Status: Ordered FLUoxetine 10 mg oral capsule 10 mg, 1, capsule, By Mouth, Daily, Take with 20mg capsule for total of 30mg daily, # 90 capsule, Refills 1, Tot. Refills 1, Maintenance, 09/19/21 12:45:00 EST, Route to Pharmacy Electronically, [facility]/pharmacy #2025, Partial fill upon patient request if... Start Date: 09/19/21 Status: Ordered FLUoxetine 20 mg oral capsule 20 mg, 1, capsule, By Mouth, Daily, Take with Fluoxetine 10mg for a total of 30mg, # 90 capsule, Refills 1, Tot. Refills 1, Maintenance, 05/04/21 16:44:00 EDT, Route to Pharmacy Electronically, [facility]/pharmacy #2025, replacing 10mg dose, 160.02, cm, 08/0... Start Date: 05/04/21 Status: Ordered levothyroxine 0.137 mg oral tablet See Instructions, TAKE 1 TABLET BY MOUTH ON DAYS 1-6, THEN TAKE 2 TABLETS BY MOUTH ON DAY 7, # 96 tablet, 1 Refills, [facility] STORE 13744, 160.02, cm, 10/04/21 10:38:00 EST, Height, 143, kg, 01/04/21 10:42:00 EDT, Dry Weight Start Date: 11/08/21 Status: Ordered meclizine 25 mg oral tablet See Instructions, PRN Dizziness, 1 tablet By Mouth 3 times a day, # 30 tablet, 0 Refills, Maintenance, 05/11/21 13:11:00 EDT, [facility]/pharmacy #2025, Partial [...] 01/20/22 10:19:00 EDT, 09/22/21 10:19:00 EST, [facility]t, [facility], 160.02, cm, 07/25/21 16:20:00 EST, Height,... Start [...]
--- OUTSIDE RECORDS SUMMARY | 2024-06-24 14:15 | XMS_ITS | Continuity of Care Document ---
Author Organization [facility] Address [address] [place] [address]- Care Team Providers Care Process Control Technician Name Role Phone Vivi HENNING, Celestina Givens Primary Care Physician Encounter [facility] Date(s): 02/21/24 - 03/22/24 [facility] [address] [place] [address]- Allergies, Adverse Reactions, Alerts No Known Allergies [...] 08/21/22 Given tetanus/diphtheria/pertussis, acel(Tdap) 7 08/13/12 Given FTDM-RcL-5vMQK 12y+ bivalent booster vax 06/14/22 Recorded SARS-CoV-2 mRNA (wkayuvt-fchn-bfchg) vax 02/14/22 Recorded SARS-CoV-2 (COVID-19) mRNA BNT-162b2 vac 05/06/21 Given SARS-CoV-2 (COVID-19) mRNA BNT-162b2 vac 11/04/20 Recorded SARS-CoV-2 (COVID-19) mRNA BNT-162b2 vac 10/14/20 Recorded pneumococcal 23-valent vaccine 8 04/07/19 Given 1Result Comment: screening negative 2Result Comment: [facility]# [id number] 3Result Comment: [05/25/2018] [facility] lot number [id number] exp 01/26/2019 [facility] [id number] 4Result Comment: [08/20/2017] [facility] 73613-004-61 5Admin Note: VIM dated 01/29/12 GIVEN TODAY 6Result Comment: [facility]# 64841-648-38 7Admin Note: VIM dated 08/22/11 GIVEN TODAY 8Result Comment: [facility]#9866-9953-26 Medications acetaminophen 500 mg oral capsule 2 [...] 1 Refills, Soft Stop, 12/06/23 17:28:00 EDT, [facility]/pharmacy #5, Partial fill upon patient request [...] 05/17/24 16:46:00 EDT, Route to Pharmacy Electronically, [facility]/pharmacy [...] Gm, 1 Refills, Maintenance, 11/07/23 7:48:00 EDT, [facility]/pharmacy #2024, 25, APPLY TO AFFECTED AREA 4 TIMES A DAY, 157.5, cm, 10/18/23 15:15:00 EDT, Height, 145.9, kg, 05/22/23 7:39:00 EDT, Start Date: 11/07/23 Status: Ordered diclofenac 1% topical gel See Instructions, APPLY TO AFFECTED AREA 4 TIMES A DAY. NOT COVERED, # 100 Gm, 1 Refills, Maintenance, 02/01/24 13:44:00 EDT, [facility], 30, APPLY TO AFFECTED AREA 4 TIMES [...] Gm, 0 Refills, Maintenance, 02/28/21 16:31:00 EDT, [place], [facility]/pharmacy #2024, Partial fill upon patient request if the prescription is for... Start Date: 02/28/21 Status: Ordered FLUoxetine 10 mg oral capsule 1, capsule, By Mouth, Daily, INSTR:TO BE TAKEN WITH 20MG CAPSULES TO EQUAL 30MG DAILY, # 90 capsule, Refills 1, Maintenance, 01/25/24 9:11:00 EDT, Route to Pharmacy Electronically, [facility] 197[facility], 157.5, cm, 01/22/24 10:31:00 EDT, Height, 145.9, [...] Refills, Maintenance, 12/28/23 16:17:00 EDT, [facility], 157.5, cm, 10/18/23 15:15:00 EDT, Height, 145.9, [...] tablet, 5 Refills, Maintenance, 10/08/23 17:05:00 EDT, [facility]/pharmacy #2025, 157.5, cm, 07/13/23 9:57:00 EST, Height, 145.9, kg, :39:00 EDT, Dry Weight Start Date: 10/08/23 Status: Ordered metFORMIN 500 mg oral tablet, extended release 1 tablet = 500 mg, By Mouth, Daily, # 90 tablet, 1 Refills, Maintenance, 01/22/24 11:02:00 EDT, ER Tablet, [facility]/pharmacy #2025, Partial fill upon patient [...] Code MRI Safety Implantable Status Assigning Authority [id number] Unknown [id number] Unknown 08/26/24 Unknown Unknown Active GS1 Patient Care team information Care Team Personnel Name: Celestina Trinidad MD Position: [facility] Physician - Primary Care Member Role: PCP Address: Address: [address] [place] [address] Name: Hemalatha Lucas RN Position: [facility] RN Member Role: Primary Care Nurse Name: Lauren Mack RN Position: [facility] MARY Nurse Member Role: Primary Care Nurse Name: Madelaine Ruiz RN Position: [facility] RN Member Role: Primary Care Nurse Name: Lora Santiago RN Position: [facility] RN Member Role: Primary Care Nurse Name: Mayco Ro RN Position: [facility] RN Member Role: Primary Care Nurse Name: Heydi Potts RN Position: [facility] SN RN Member Role: Primary Care Nurse Name: Janice Romano LPN Position: [facility] RN Member Role: Primary Care Nurse Name: Nadya Low RN Position: [facility] RN Member Role: Primary Care Nurse Name: Mirna Greenfield RN Position: [facility] RN Member Role: Primary Care Nurse Name: Nessa Bonilla RN Position: [facility] Spool Sorter Member Role: Primary Care Nurse Care Team Related Persons Name: ROSETTA DINESH Address: home [address] [place] [address] Name: BON DE Address: home [address] [address]
--- OUTSIDE RECORDS SUMMARY | 2024-06-24 14:15 | XMS_ITS | Continuity of Care Document ---
Author Organization [facility] Address [address] [place] [address]- Care Team Providers Care Licensing Engineer Name Role Phone Vivi HENNING, Celestina Givens Primary Care Physician [facility] Date(s): 03/12/23 - 04/11/23 [facility] [address] [place] [address]- Allergies, Adverse Reactions, Alerts No Known Allergies Immunizations Given and Recorded Vaccine Date Status Refusal Reason tetanus/diphtheria/pertussis, acel(Tdap) 1 08/21/22 Given tetanus/diphtheria/pertussis, acel(Tdap) 2 08/13/12 Given [id number] 12y+ bivalent booster vax 06/14/22 Recorded influenza [...] inactivated 6 07/31/12 Gi [facility] SARS-CoV-2 mRNA (dqmeubr-lmit-wnzwl) vax 02/14/22 Recorded SARS-CoV-2 (COVID-19) mRNA BNT-162b2 vac 05/06/21 Given SARS-CoV-2 (COVID-19) mRNA BNT-162b2 vac 11/04/20 Recorded SARS-CoV-2 (COVID-19) mRNA BNT-162b2 vac 10/14/20 Recorded pneumococcal 23-valent vaccine 7 04/07/19 Given 1Result Comment: [facility]# [id number] 2Admin Note: VIM dated 08/22/11 GIVEN TODAY 3Result Comment: [facility]# 17900-621-33 4Result Comment: [05/25/2018] [facility] lot number [id number] exp 01/26/2019 [facility] [id number] 5Result Comment: [08/20/2017] [facility] [id number] 6Admin Note: VIM dated 01/29/12 GIVEN TODAY 7Result Comment: [facility]#4099-3766-08 Medications acetaminophen 500 mg oral capsule 2 [...] Stop, 04/10/2215:14:00 EDT, Route to Pharmacy Electronically, [id number], [facility]/pharmacy #2025, 158, cm, 04/10/22 14:56:00 EDT, [...] 1 Refills, Maintenance, 01/08/23 9:36:00EDT, [facility], 50, APPLY TOPICALLY 4 TIMES A DAY, [...] Gm, 0 Refills, Maintenance, 02/28/21 16:31:00 EDT, [place], [facility]/pharmacy #2024, Partial fill upon patient request if the prescription is for... Start Date: 02/28/21 Status: Ordered FLUoxetine 10 mg oral capsule 10 mg, 1, capsule, By Mouth, Daily, to be taken with 20mg capsules to equal 30mg daily, # 90 capsule, Refills 1, Tot. Refills 1, Maintenance, 04/03/23 11:25:00 EDT, Route to Pharmacy Electronically, [facility]/pharmacy #2024, Partial fill upon patient reques... Start Date: 04/03/23 Status: Ordered FLUoxetine 20 mg oral capsule 1, capsule, By Mouth, Daily, # 90 capsule, Refills 1, Tot. Refills 1, Maintenance, 04/03/23 11:23:00 EDT, Route to Pharmacy Electronically, [facility]/pharmacy #2024, 157, cm, 03/14/23 11:02:00 EDT, Height,145, kg, 08/29/22 20:13:00 EST, Dry Weight Start Date: 04/03/23 Status: Ordered gabapentin 300 mg oral capsule 600 mg, 2, capsule, By Mouth, 3 times a day, # 180 capsule, Refills 3, Tot. Refills 3, Maintenance,08/25/22 22:35:00 EST, Route to Pharmacy Electronically, [facility]/pharmacy [...] tablet, 2 Refills, Maintenance, 02/27/23 7:25:00 EDT, [facility] 12[facility], 157, cm, 12/08/22 14:27:00 EDT, Height, 145, kg, 08/29/22 20:13:00 EST, Dry... Start Date: 02/27/23 Status: Ordered meclizine 25 mg oral tablet See Instructions, PRN Dizziness, 1 tablet By Mouth 3 times a day, # 30 tablet, 0 Refills, Maintenance, 02/27/23 10:43:00 EDT, [facility]/pharmacy #2024, Partial fill upon patient request if the prescriptionis for a schedule II opioid drug., 157, cm, ... Start Date: 02/27/23 Status: Ordered meloxicam 15 mg oral tablet See Instructions, TAKE 1 TABLET BY MOUTH DAILY WITH FOOD. LABS NEEDED FOR FURTHER REFILLS, # 30 tablet, 1 Refills, Maintenance, 03/05/23 9:28:00 EDT, [facility], 157, cm, 12/08/22 14:27:00 EDT, Height, 145, [...] tablet, 0 Refills, Maintenance, 02/20/23 17:17:00 EDT, [facility]/pharmacy #2025, 157, cm, 12/08/2313:27:00 EDT, Height, 145, [...] Name: Celestina Trinidad MD Position: [facility] Physician - Primary Care Member Role: PCP Address: Address: [address] [place] [address] Name: Hemalatha Lucas RN Position: [facility] RN Member Role: Primary Care Nurse Name: Lauren Mack RN Position: [facility] AMB Nurse Member Role: Primary Care Nurse Name: Madelaine Ruiz RN Position: [facility] RN Member Role: Primary Care Nurse Name: Lora Santiago RN Position: [facility] SN RN Member Role: Primary Care Nurse Name: Mayco Ro RN Position: [facility] RN Member Role: Primary Care Nurse Name: Heydi Potts RN Position: [facility] RN Member Role: Primary Care Nurse Name: Janice Romano LPN Position: [facility] RN Member Role: Primary Care Nurse Name: Nadya Low RN Position: [facility] RN Member Role: Primary Care Nurse Name: Mirna Greenfield RN Position: [facility] RN Member Role: Primary Care Nurse Name: Nessa Bonilla RN Position: [facility] Hospital Chief Marketing Officer Member Role: Primary Care Nurse Care Team Related Persons Name: DINESH SARGENT Address: [place] [address] Name: BON DE Address: home [address] [place] [address]
--- OUTSIDE RECORDS SUMMARY | 2024-06-24 14:15 | XMS_ITS | Continuity of Care Document ---
Author Organization [facility] Address [address] [place] [address]- Care Team Providers Care Composing Machine Operator Name Role Phone Vivi HENNING, Celestina Givens Primary Care Physician [place] [facility] [place] 04[place]17/24 [facility] [address] [place] [address]- Allergies, Adverse Reactions, Alerts No Known Allergies [...] 08/21/22 Given tetanus/diphtheria/pertussis, acel(Tdap) 7 08/13/12 Given [id number] 12y+ bivalent booster vax 06/14/22 Recorded SARS-CoV-2 mRNA (hhjymyy-wxeg-imbhs) vax 02/14/22 Recorded SARS-CoV-2 (COVID-19) mRNA BNT-162b2 vac 05/06/21 Given SARS-CoV-2 (COVID-19) mRNA BNT-162b2 vac 11/04/20 Recorded SARS-CoV-2 (COVID-19) mRNA BNT-162b2 vac 10/14/20 Recorded pneumococcal 23-valent vaccine 8 04/07/19 Given 1Result Comment: screening negative 2Result Comment: [facility]# [id number] 3Result Comment: [05/25/2018] [facility] lot number [id number] exp 01/26/2019 [facility] [id number] 4Result Comment: [08/20/2017] [facility] [id number] 5Admin Note: VIM dated 01/29/12 GIVEN TODAY 6Result Comment: [facility]# [id number] 7Admin Note: VIM dated 08/22/11 GIVEN TODAY 8Result Comment: [facility]#[id number] Medications acetaminophen 500 mg oral capsule 2 [...] 1 Refills, Soft Stop, 12/06/23 17:28:00 EDT, [facility]/pharmacy #5, Partial fill upon [...] Gm, 0 Refills, Maintenance, 02/28/21 16:31:00 EDT, [place], [facility]/pharmacy #2024, Partial fill upon patient request if the prescription is for... Start Date: 02/28/21 Status: Ordered FLUoxetine 10 mg oral capsule 1, capsule, By Mouth, Daily, INSTR:TO BE TAKEN WITH 20MG CAPSULES TO EQUAL 30MG DAILY, # 90 capsule, Refills 1, Maintenance, 01/25/24 9:11:00 EDT, Route to Pharmacy Electronically, [facility] STORE 13105, 157.5, cm, 01/22/24 10:31:00 EDT, Height, 145.9, kg,... Start Date: 01/25/24 Status: Ordered gabapentin 300 mg oral capsule 600 mg, 2, capsule, By Mouth, 3 times a day, # 180 capsule, Refills 3, Tot. Refills 3, Maintenance,08/25/22 22:35:00 EST, Route to Pharmacy Electronically, [facility]/pharmacy #2024, Partial fill upon [...] Refills, Maintenance, 12/28/23 16:17:00 EDT, [facility], 157.5, cm, 10/18/23 15:15:00 EDT, Height, 145.9, [...] tablet, 1 Refills, Maintenance, 03/28/24 7:37:00 EDT, [facility]/pharmacy #2025, 157.5, cm, 02/12/24 14:48:00 EDT, Height, 145.9, kg, :39:00 EDT, Dry Weight Start Date: 03/28/24 Status: Ordered metFORMIN 500 mg oral tablet, extended release 1 tablet = 500 mg, By Mouth, Daily, # 90 tablet, 1 Refills, Maintenance, 01/22/24 11:02:00 EDT, ER Tablet, [facility]/pharmacy #2025, Partial fill upon [...] tablet, 0 Refills, Maintenance, 03/31/24 17:50:00 EDT, [facility]/pharmacy #2025, Partial fill upon [...] Code MRI Safety Implantable Status Assigning Authority [id number] Unknown [id number] Unknown 08/26/24 Unknown Unknown Active GS1 Patient Care team information Care Team Personnel Name: Celestina Trinidad MD Position: [facility] Physician - Primary Care Member Role: PCP Address: Address: [address] [place] [id number] Name: Hemalatha Lucsa RN Position: [facility] RN Member Role: Primary Care Nurse Name: Lauren Mcak RN Position: [facility] [...] Nessa Bonilla RN Position: [facility] Strickler Attendant Member Role: Primary Care Nurse Care Team Related Persons Name: DINESH SARGENT Address: home [address] [place] [address] Name: BON DE Address: home [address] [address]
--- OUTSIDE RECORDS SUMMARY | 2024-06-24 14:15 | XMS_ITS | Continuity of Care Document ---
Author Organization [facility] Address [address] [place] [address]- Care Team Providers Care Hot Patcher Name Role Phone Vivi HENNING, Celestina Givens Primary Care Physician [facility] Date[facility]): 05/17/23 - 06/16/23 [facility] [address] [place] [address]- Allergies, Adverse Reactions, Alerts No Known Allergies Immunizations Given and Recorded Vaccine Date Status Refusal Reason tetanus/diphtheria/pertussis, acel(Tdap) 1 08/21/22 Given tetanus/diphtheria/pertussis, acel(Tdap) 2 08/13/12 Given GCPH-MhD-7rSFS 12y+ bivalent booster vax 06/14/22 Recorded influenza [...] inactivated 6 07/31/12 Gi hali SARS-CoV-2 mRNA (nyqeazu-lsar-dqgiq) vax 02/14/22 Recorded SARS-CoV-2 (COVID-19) mRNA BNT-162b2 vac 05/06/21 Given SARS-CoV-2 (COVID-19) mRNA BNT-162b2 vac 11/04/20 Recorded SARS-CoV-2 (COVID-19) mRNA BNT-162b2 vac 10/14/20 Recorded pneumococcal 23-valent vaccine 7 04/07/19 Given 1Result Comment: [facility]# [id number] 2Admin Note: VIM dated 08/22/11 GIVEN TODAY 3Result Comment: [facility]# [id number] 4Result Comment: [05/25/2018] [facility] lot number [id number] exp 01/26/2019 [facility] [id number] 5Result Comment: [08/20/2017] [facility] [id number] 6Admin Note: VIM dated 01/29/12 GIVEN TODAY 7Result Comment: [facility]#[id number] Medications acetaminophen 500 mg oral capsule 2 [...] Stop, 04/10/2215:14:00 EDT, Route to Pharmacy Electronically, [id number], [facility]/pharmacy #2025, 158, cm, [...] 06/17/23 15:49:00 EST, 06/12/23 15:49:00 EST, Tablet, [facility]/pharmacy #2024, [...] 16:45:00 EDT, Route to Pharmacy Electronically, [facility]/pharmacy #2024, Partial fill upon patient request if the presc... Start Date: 05/17/23 Stop Date: 05/17/24 Status: Ordered diclofenac 1% topical gel See Instructions, APPLY TOPICALLY 4 TIMES A DAY, # 100 Gm, 1 Refills, Maintenance, 06/05/23 10:25:00 EST, [facility]/pharmacy #2024, 50, APPLY TOPICALLY 4 TIMES A DAY, 157.5, cm, 10/24/23 7:39:00 EDT, Height, 145.9, kg, 05/22/23 7:39:00 EDT, Dry Weight Start Date: 06/05/23 Status: Ordered Flonase 50 mcg/inh nasal spray See Instructions, 2 sprays Nares twice daily x 1 week, then once daily x 1-2 weeks until symptoms improve, # 16 Gm, 0 Refills, Maintenance, 02/28/21 16:31:00 EDT, [place], [facility]/pharmacy #202, Partial fill upon patient request if the prescription is for... Start Date: 02/28/21 Status: Ordered FLUoxetine 10 mg oral capsule 10 mg, 1, capsule, By Mouth, Daily, to be taken with 20mg capsules to equal 30mg daily, # 90 capsule, Refills 1, Tot. Refills 1, Maintenance, 04/03/23 11:25:00 EDT, Route to Pharmacy Electronically, [facility]/pharmacy #2024, Partial fill upon patient reques... Start Date: 04/03/23 Status: Ordered FLUoxetine 20 mg oral capsule 1, capsule, By Mouth, Daily, # 90 capsule, Refills 1, Tot. Refills 1, Maintenance, 04/03/23 11:23:00 EDT, Route to Pharmacy Electronically, [facility]/pharmacy #2024, 157, cm, 03/14/23 11:02:00 EDT, Height,145, kg, 08/29/22 20:13:00 EST, Dry Weight Start Date: 04/03/23 Status: Ordered gabapentin 300 mg oral capsule 600 mg, 2, capsule, By Mouth, 3 times a day, # 180 capsule, Refills 3, Tot. Refills 3, Maintenance,08/25/22 22:35:00 EST, Route to Pharmacy Electronically, [facility]/pharmacy #202, Partial fill [...] 2 Refills, Maintenance, 02/27/23 7:25:00 EDT, [facility] STORE 47682, 157, cm, 12/08/22 14:27:00 EDT, Height, 145, [...] tablet, 1 Refills, Maintenance, 05/01/23 14:45:00 EDT, [facility]/pharmacy #202, 157, cm, 03/14/23 11:02:00 EDT, Height, [...] 16:30:00 EST, Aerosol, Route to Pharmacy Electronically, [id number], [facility]/pharmacy #2024, 157.5, cm, 05/22/23 7:39:00 EDT, Height... Start Date: 06/07/23 Status: Ordered traMADol 50 mg oral tablet See Instructions, 2 tab po qam and one tab po q pm prn moderate to severe pain. 28 days. mass pat ok, # 81 tablet, 0 Refills, Maintenance, 05/14/23 16:14:00 EDT, [facility], 157, cm, 03/14/2311:02:00 EDT, Height, 145, [...] Code MRI Safety Implantable Status Assigning Authority [id number] Unknown [id number] Unknown 08/26/24 Unknown Unknown Active GS1 Patient Care team information Care Team Personnel Name: Celestina Trinidad MD Position: [facility] Physician - Primary Care Member Role: PCP Address: Address: [address] [place] [address] Name: Hemalatha Lucas RN Position: [facility] RN Member Role: Primary Care Nurse Name: Lauren Mack RN Position: [facility] AMB Nurse Member Role: Primary Care Nurse Name: Madelaine Ruiz RN Position: [facility] RN Member Role: Primary Care Nurse Name: Lora Santiago RN Position: [facility] RN Member Role: Primary Care Nurse Name: Mayco Ro RN Position: [facility] RN Member Role: Primary Care Nurse Name: Heydi Potts RN Position: [facility] RN Member Role: Primary Care Nurse Name: Janice Romano LPN Position: [facility] RN Member Role: Primary Care Nurse Name: Nadya Low RN Position: [facility] RN Member Role: Primary Care Nurse Name: Mirna Greenfield RN Position: [facility] RN Member Role: Primary Care Nurse Name: Nessa Bonilla RN Position: [facility] [employer] Member Role: Primary Care Nurse Care Team Related Persons Name: ROSETTADINESH Address: home [address] [place] [address] Name: BON DE Address: home [address] [address]
--- OUTSIDE RECORDS SUMMARY | 2024-06-24 14:15 | XMS_ITS | Continuity of Care Document ---
Author Organization [facility] Address [address] [place] [address]- Care Team Providers Care Gravity Manager Name Role Phone Vivi HENNING, Celestina Givens Primary Care Physician [facility]counter [facility] Date[facility]s): 04/16/24 - 05/16/24 [facility] [address] [place] [address]- Allergies, Adverse Reactions, Alerts No Known Allergies [...] 08/21/22 Given tetanus/diphtheria/pertussis, acel(Tdap) 7 08/13/12 Given WLTW-QxA-5yQNQ 12y+ bivalent booster vax 06/14/22 Recorded SARS-CoV-2 mRNA (dnbrtea-ndwx-xbwqo) vax 02/14/22 Recorded SARS-CoV-2 (COVID-19) mRNA BNT-162b2 vac 05/06/21 Given SARS-CoV-2 (COVID-19) mRNA BNT-162b2 vac 11/04/20 Recorded SARS-CoV-2 (COVID-19) mRNA BNT-162b2 vac 10/14/20 Recorded pneumococcal 23-valent vaccine 8 04/07/19 Given 1Result Comment: screening negative 2Result Comment: [facility]# [id number] 3Result Comment: [05/25/2018] [facility] lot number [id number] exp 01/26/2019 [facility] [id number] 4Result Comment: [08/20/2017] [facility] [id number] 5Admin Note: VIM dated 01/29/12 GIVEN TODAY 6Result Comment: [facility]# [id number] 7Admin Note: VIM dated 08/22/11 GIVEN TODAY 8Result Comment: [facility]#[id number] Medications acetaminophen 500 mg oral capsule 2 [...] Refills, Soft Stop, 12/06/23 17:28:00 EDT, [facility]/pharmacy #5, Partial fill upon patient [...] Gm, 0 Refills, Maintenance, 02/28/21 16:31:00 EDT, [place], [facility]/pharmacy #2024, Partial fill upon patient request if the prescription is for... Start Date: 02/28/21 Status: Ordered FLUoxetine 10 mg oral capsule 1, capsule, By Mouth, Daily, INSTR:TO BE TAKEN WITH 20MG CAPSULES TO EQUAL 30MG DAILY, # 90 capsule, Refills 1, Maintenance, 01/25/24 9:11:00 EDT, Route to Pharmacy Electronically, [facility] STORE 96827, 157.5, cm, 01/22/24 10:31:00 EDT, Height, 145.9, [...] Refills, Maintenance, 12/28/23 16:17:00 EDT, [facility], 157.5, cm, 10/18/23 15:15:00 EDT, Height, 145.9, [...] 1 Refills, Maintenance, 03/28/24 7:37:00 EDT, [facility]/pharmacy #2025, 157.5, cm, 02/12/24 14:48:00 EDT, Height, 145.9, kg, :39:00 EDT, Dry Weight Start Date: 03/28/24 Status: Ordered metFORMIN 500 mg oral tablet, extended release 1 tablet = 500 mg, By Mouth, Daily, # 90 tablet, 1 Refills, Maintenance, 01/22/24 11:02:00 EDT, ER Tablet, [facility]/pharmacy #2025, Partial fill upon patient [...] tablet, 0 Refills, Maintenance, 05/08/24 17:33:00 EDT, [facility]/pharmacy #5, Partial fill upon patient [...] Code MRI Safety Implantable Status Assigning Authority [id number] Unknown [id number] Unknown 08/26/24 Unknown Unknown Active GS1 Patient Care team information Care Team Personnel Name: Celestina Trinidad MD Position: [facility] Physician - Primary Care Member Role: PCP Address: Address: [address] [place] [id number] Name: Hemalatha Lucas RN Position: [facility] RN Member Role: Primary Care Nurse Name: Lauren Mack RN Position: [facility] RN Member Role: Primary Care Nurse Name: Madelaine Ruiz RN Position: [facility] RN Member Role: Primary Care Nurse Name: Lora Santiago RN Position: [facility] SN RN Member Role: Primary Care Nurse Name: Mayco Ro RN Position: [facility] RN Member Role: Primary Care Nurse Name: Heydi Potts RN Position: [facility] SN RN Member Role: Primary Care Nurse Name: Janice Romano LPN Position: [facility] RN Member Role: Primary Care Nurse Name: Nadya Low RN Position: [facility] RN Member Role: Primary Care Nurse Name: Mirna Greenfield RN Position: [facility] RN Member Role: Primary Care Nurse Name: Nessa Bonilla RN Position: [facility] Supervisor Cell Maintenance Member Role: Primary Care Nurse Care Team Related Persons Name: DINESH SARGENT Address: home [address] [place] [address] Name: BON DE Address: [address] [address]
--- OUTSIDE RECORDS SUMMARY | 2024-06-24 14:15 | XMS_ITS | Continuity of Care Document ---
Author Organization [facility] Address [address] [place] [address], [address] [place] [address]- Care Team Providers Care Cardiac Nurse Name Role Phone Florentino AHN, Elder Hannah Primary Care Physician [facility] Date[facility] 11/17[facility]20 - 12/17/20 [facility] [address] [place] [address], [address] [place], [place] [address] Attending Physician: Calixto Beltran Admitting [...] 08/13/12 Given 1Result Comment: [facility]# [id number] 2Result Comment: [05/25/2018] [facility] lot number [id number] exp 01/26/2019 [facility] [id number] 3Result Comment: [08/20/2017] [facility] [id number] 4Admin Note: VIM dated 01/29/12 GIVEN TODAY 5Result Comment: [facility]#[id number] 6Admin Note: VIM dated 08/22/11 GIVEN TODAY [...] 10/27/20 14:48:00 EDT, Route to Pharmacy Electronically, [id number], [facility]/pharmacy #2024, 160.02, cm, 10/19/20 11:04:00 EDT, Height, 156... Start Date: 10/27/20 Status: Ordered diclofenac 1% topical gel See Instructions, APPLY TOPICALLY 4 TIMES A DAY, # 100 Gm, 1 Refills, 10/27/20 12:37:00 EDT, [facility]/pharmacy #2024, 25, APPLY TOPICALLY 4 TIMES A DAY, 160.02, cm, 10/19/20 11:04:00 EDT, Height, 156.81, kg, 10/19/20 11:04:00 EDT, Dry Weight Start Date: 10/27/20 Status: Ordered FLUoxetine 20 mg oral capsule 20 mg, 1, capsule, By Mouth, Daily, # 30 capsule, Refills 5, Tot. Refills 5, Maintenance, 05/13/20 9:34:00 EDT, Route to Pharmacy Electronically, [facility]/pharmacy #2024, replacing 10mg dose, 161, cm, 05/13/20 8:28:00 EDT, Height Start Date: 05/13/20 Status: Ordered levothyroxine 0.137 mg oral tablet See Instructions, Take 1 tablet by mouth on days 1-6, then take 2 tablets by mouth on day 7, # 121 tablet, 5 Refills, Maintenance, 12/07/20 9:46:00 EDT, [facility]/pharmacy #2024, 160.02, cm, 10/19/20 11:04:00 EDT, Height, 156.81, kg, 10/19/20 11:04:00 EDT,... Start Date: 12/07/20 Status: Ordered meloxicam 15 mg oral tablet 1 tablet, By Mouth, Daily, WITH FOOD., # 30 tablet, 1 Refills, Maintenance, 10/24/20 10:06:00 EDT, [facility] STORE 15536, 160.02, cm, 10/19/20 11:04:00 EDT, Height, 156.81, [...] Route to Pharmacy Electronically, [facility]/pharmacy #5, 161, cm, 08/04/19 14:44:00 EST, Height [...] 9:34:00 EDT, 09/10/20 9:34:00 EST, Tablet, [facility], 161, cm, 08/18/20 [...]
--- OUTSIDE RECORDS SUMMARY | 2024-06-24 14:15 | XMS_ITS | Continuity of Care Document ---
Author Organization [facility] Address [address] [place] [address]- Care Team Providers Care Master Lay Out Specialist Name Role Phone Yolanda AHN, Padmaja Pelayo Primary Care Physician [facility] Date[facility] 09[facility] - 10/19/21 [facility] [address] [place] [address]- Allergies, Adverse Reactions, Alerts No Known Allergies [...] [facility]# [id number] 2Result Comment: [05/25/2018] [facility] lot number [id number] exp 01/26/2019 [facility] [id number] 3Result Comment: [08/20/2017] [facility] [id number] 4Admin Note: VIM dated 01/29/12 GIVEN TODAY 5Result Comment: [facility]#[id number] 6Admin Note: VIM dated 08/22/11 GIVEN TODAY [...] Replace Required Details, Route to Pharmacy Electronically, [id number]... Start Date: 09/15/21 Status: Ordered Aerochamber w/Mask [...] 07/25/21 16:53:00 EST, Route to Pharmacy Electronically, [id number], [facility]/pharmacy #2025, 160.02, cm, 07/25/21 16:20:00 EST, [...] Gm, 0 Refills, Maintenance, 02/28/21 16:31:00 EDT, [place], [facility]/pharmacy #2024, Partial fill upon patient request if the prescription is for... Start Date: 02/28/21 Status: Ordered FLUoxetine 10 mg oral capsule 10 mg, 1, capsule, By Mouth, Daily, Take with 20mg capsule for total of 30mg daily, # 90 capsule, Refills 1, Tot. Refills 1, Maintenance, 09/19/21 12:45:00 EST, Route to Pharmacy Electronically, [facility]/pharmacy #2024, Partial fill upon patient request if... Start Date: 09/19/21 Status: Ordered FLUoxetine 20 mg oral capsule 20 mg, 1, capsule, By Mouth, Daily, Take with Fluoxetine 10mg for a total of 30mg, # 90 capsule, Refills 1, Tot. Refills 1, Maintenance, 05/04/21 16:44:00 EDT, Route to Pharmacy Electronically, [facility]/pharmacy #202, replacing 10mg dose, 160.02, cm, 08/0... Start Date: 05/04/21 Status: Ordered levothyroxine 0.137 mg oral tablet See Instructions, Take 1 tablet by mouth on days 1-6, then take 2 tablets by mouth on day 7, # 121 tablet, 5 Refills, Maintenance, 12/07/20 9:46:00 EDT, [facility]/pharmacy #202, 160.02, cm, 10/19/20 11:04:00 EDT, Height, 156.81, kg, 10/19/20 11:04:00 EDT,... Start Date: 12/07/20 Status: Ordered meclizine 25 mg oral tablet See Instructions, PRN Dizziness, 1 tablet By Mouth 3 times a day, # 30 tablet, 0 Refills, Maintenance, 05/11/21 13:11:00 EDT, [facility]/pharmacy #202, Partial fill upon patient request if the prescriptionis for a schedule II opioid drug., 160.02, cm, 10/0... Start Date: 05/11/21 Status: Ordered meloxicam 15 mg oral tablet 1 tablet, By Mouth, Daily, WITH FOOD., # 30 tablet, 3 Refills, 09/19/21 12:46:00 EST, [facility]/pharmacy #2025, 160.02, cm, 07/25/21 16:20:00 EST, [...] 13:47:00 EST, Aerosol, Route to Pharmacy Electronically, [id number], [facility]/pharmacy #2024, 160.02, cm, 07/25/21 16:20:00 EST, [place]... Start Date: 10/03/21 Status: Ordered traMADol 50 mg oral tablet 2 tablet = 100 mg, By Mouth, Every 12 hours, as needed for pain masspat checked, # 112 tablet, 0 Refills, Maintenance, 09/20/21 10:55:00 EST, [facility]/pharmacy #5, 160.02, cm, 07/25/21 16:20:00 EST, Height, 143, kg, 01/04/21 10:42:00 EDT, Dry Weight Start Date: 09/20/21 Stop Date: 10/18/21 Status: Ordered zolpidem 10 mg oral tablet 1 tablet = 10 mg, By Mouth, Daily at bedtime, PRN for sleep, for 30 days, masspat check may fill less, # 30 tablet, 3 Refills, Acute 01/20/22 10:19:00 EDT, 09/22/21 10:19:00 EST, Tablet, [facility]/pharmacy#5, 160.02, cm, 07/25/21 16:20:00 EST, Height,... Start [...]
--- OUTSIDE RECORDS SUMMARY | 2024-06-24 14:15 | XMS_ITS | Continuity of Care Document ---
Author Organization [facility] Address [address] [address]- Care Team Providers Care Flour Mixer Helper Name Role Phone Celestina Trinidad MD Primary Care Physician Encounter [facility] Date(s): 12/08/22 - 12/15/22 [facility] [address] [address]- Attending Physician: Hui HENNING, Jeannine Moreira Admitting Physician: Hui HENNING, Jeannine Moreira Referring Physician: Celestina Trinidad MD Allergies, Adverse Reactions, Alerts No Known Allergies Immunizations Given and Recorded Vaccine Date Status Refusal Reason tetanus/diphtheria/pertussis, acel(Tdap) 1 08/21/22 Given tetanus/diphtheria/pertussis, acel(Tdap) 2 08/13/12 Given [id number] 12y+ bivalent booster vax 06/14/22 Recorded influenza [...] inactivated 6 07/31/12 Gi hali SARS-CoV-2 mRNA (ztzshps-arbc-gchjo) vax 02/14/22 Recorded SARS-CoV-2 (COVID-19) mRNA BNT-162b2 vac 05/06/21 Given SARS-CoV-2 (COVID-19) mRNA BNT-162b2 vac 11/04/20 Recorded SARS-CoV-2 (COVID-19) mRNA BNT-162b2 vac 10/14/20 Recorded pneumococcal 23-valent vaccine 7 04/07/19 Given 1Result Comment: [facility]# [id number] 2Admin Note: VIM dated 08/22/11 GIVEN TODAY 3Result Comment: [facility]# [id number] 4Result Comment: [05/25/2018] [employer] lot number [id number] exp 01/26/2019 [facility] [id number] 5Result Comment: [08/20/2017] [facility] [id number] 6Admin Note: VIM dated 01/29/12 GIVEN TODAY 7Result Comment: [facility]#[id number] Medications acetaminophen 500 mg oral capsule 2 [...] Stop, 04/10/2215:14:00 EDT, Route to Pharmacy Electronically, [id number], [facility]/pharmacy #2025, 158, cm, 04/10/22 14:56:00 EDT, Height, 143,... Start Date: 04/10/22 Status: Ordered amLODIPine 10 mg oral tablet 1 tablet, By Mouth, Daily, # 90 tablet, 0 Refills, Maintenance, 10/23/22 12:47:00 EDT, [facility], 157, cm, 09/13/22 15:58:00 EST, Height, 145, kg, 08/29/22 20:13:00 EST, Dry Weight Start Date: 10/23/22 Status: Ordered budesonide-formoterol 80 mcg-4.5 mcg/inh inhalation aerosol with adapter 2, puffs, Inhalation, 2 times a day, PRN, use with spacer chamber, rinse mouth and throat after use, j44.9, # 1 each, Refills 6, Tot. Refills 6, Maintenance, 12/08/22 12:55:00 EDT, Aerosol, Route to Pharmacy Electronically, [id number]... Start Date: 12/08/22 Status: Ordered Compression Stockings [...] 100 Gm, 1 Refills, 09/22/22 7:28:00 EST, [facility]/pharmacy #2024, 25, APPLY TOPICALLY 4 TIMES A DAY, 157, cm, 09/13/22 15:58:00 EST, Height, 145, kg, 08/29/22 20:13:00 EST, Dry Weight Start Date: 09/22/22 Status: Ordered docusate sodium 100 mg oral capsule 100 mg, 1, capsule, By Mouth, 2 times a day, PRN, # 20 capsule, Refills 0, Tot. Refills 0, Maintenance, as needed for constipation, 08/31/22 13:30:00 EST, Route to Pharmacy Electronically, [facility]/pharmacy #2024, Partial fill upon patient request if the p... Start Date: 08/31/22 Status: Ordered Flonase 50 mcg/inh nasal spray See Instructions, 2 sprays Nares twice daily x 1 week, then once daily x 1-2 weeks until symptoms improve, # 16 Gm, 0 Refills, Maintenance, 02/28/21 16:31:00 EDT, [place], [facility]/pharmacy #5, Partial fill upon patient request if the prescription is for... Start Date: 02/28/21 Status: Ordered FLUoxetine 20 mg oral capsule 1, capsule, By Mouth, Daily, # 90 capsule, Refills 1, Maintenance, 10/23/22 12:47:00 EDT, Route to Pharmacy Electronically, [facility] STORE [facility], 157, cm, 09/13/22 15:58:00 EST, Height, 145, kg, 08/29/22 20:13:00 EST, Dry Weight Start Date: 10/23/22 Status: Ordered furosemide 20 mg oral tablet 1, tablet, By Mouth, Daily, MAY REPEAT IF NEEDED IN 2 HOURS, # 30 tablet, Refills 0, Maintenance, 11/29/22 22:18:00 EDT, Route to Pharmacy Electronically, [facility], 157, cm, 10/30/22 13:53:00 EDT, Height, 145, [...] Refills, Maintenance, 07/03/22 14:41:00 EST, Tablet, [facility], Partial fill upon patient request if the prescription is for a schedule II opioid dr... Start Date: 07/03/22 Status: Ordered meclizine 25 mg oral tablet See Instructions, PRN Dizziness, 1 tablet By Mouth 3 times a day, # 30 tablet, 0 Refills, Maintenance, 05/11/21 13:11:00 EDT, [facility]/pharmacy #202, Partial fill upon patient request if the prescriptionis for a schedule II opioid drug., 160.02, cm, 10/0... Start Date: 05/11/21 Status: Ordered meloxicam 15 mg oral tablet See Instructions, TAKE 1 TABLET BY MOUTH DAILY WITH FOOD. LABS NEEDED FOR FURTHER REFILLS, # 30 tablet, 3 Refills, Maintenance, 10/18/22 21:31:00 EDT, [facility] STORE 66[facility], 157, cm, 09/13/22 15:58:00 EST,Height, 145, kg, [...] 09/05/22 16:29:00 EST, Route to Pharmacy Electronically, [facility]/pharmacy #2024, Partialfill upon patient request if the prescription is fo... Start Date: 09/05/22 Stop Date: 09/12/22 Status: Ordered traMADol 50 mg oral tablet See Instructions, 2 tab po qam and one tab po q pm prn moderate to severe pain. 28 days. mass pat ok, # 81 tablet, 0 Refills, Maintenance, 10/29/22 21:38:00 EDT, [facility]/pharmacy #2024, 157, cm, 09/13/2314:58:00 EST, Height, 145, [...] recent to oldest [Reference Range]: 1 Height 157 cm (12/08/22 2:27 PM) Weight 145 kg (12/08/22 2:27 PM) Oxygen Saturation [94-100 %] 98 % (12/08/22 2:27 PM) Pulse Rate [55-90 bpm] 78 bpm (12/08/22 2:27 PM) Body Mass Index [18.5-24.99 kg/m2] 58.83 kg/m2 *>HHI* (12/08/22 2:27 PM) Blood Pressure [90-138/55-84 mm Hg] 127/ 44mm Hg (12/08/22 2:27 PM) Blood pressure sites Arm, left (12/08/22 2:27 PM) Weight Obtained Via Standing scale (12/08/22 2:27 PM) Social History Social History Type Response Smoking Status Former smoker, quit more than 30 days ago; Other: smoked up to pack a day x 25 years; entered on: 11/14/21 Sex Patient Care team information Care Team Personnel Name: Celestina Trinidad MD Position: [facility] Primary Care Physician Member Role: PCP Address: Address: [address] [place] [address] Name: Hemalatha Lucas RN [facility] Bonilla RN Position: [facility] Hospital Rn Camp Member Role: Primary Care Nurse Care Team Related Persons Name: ROSETTA DINESH Address: home [address] [place] [address] Name: BON DE Address: home [address] [address]
--- OUTSIDE RECORDS SUMMARY | 2024-06-24 14:15 | XMS_ITS | Continuity of Care Document ---
Author Organization [facility] Address [address] [place] [address]- Care Team Providers Care Core Drill Operator Helper Name Role Phone Noe TROUBLE SHOOTING MECHANIC, Mónica Graham Primary Care Physician Encounter [facility] Date(s): 07/25/21 - 08/24/21 [facility] [address] [place] [address]- Allergies, Adverse Reactions, Alerts No Known Allergies [...] acel(Tdap) 6 08/13/12 Given 1Result Comment: [facility]# [id number] 2Result Comment: [05/25/2018] [facility] lot number [id number] exp 01/26/2019 [facility] [id number] 3Result Comment: [08/20/2017] [facility] 12761-179-83 4Admin Note: VIM dated 01/29/12 GIVEN TODAY 5Result Comment: [facility]#[id number] 6Admin Note: VIM dated 08/22/11 GIVEN TODAY [...] 16:52:00 EST, [place], Route to Pharmacy Electronically, [id number], [facility]/pharmacy #2024, 160.02, cm, 07/25/21 16:20:00 EST, Heigh... [...] 07/25/21 16:53:00 EST, Route to Pharmacy Electronically, [id number], [facility], 160.02, cm, 07/25/21 16:20:00 EST, [...] Gm, 0 Refills, Maintenance, 02/28/21 16:31:00 EDT, [place], [facility]/pharmacy #202, Partial fill upon patient request if the prescription is for... Start Date: 02/28/21 Status: Ordered FLUoxetine 10 mg oral capsule 10 mg, 1, capsule, By Mouth, Daily, Take with 20mg capsule for total of 30mg daily, # 90 capsule, Refills 1, Tot. Refills 1, Maintenance, 05/04/21 16:44:00 EDT, Route to Pharmacy Electronically, [facility]/pharmacy #202, Partial fill upon patient request if... Start Date: 05/04/21 Status: Ordered FLUoxetine 20 mg oral capsule 20 mg, 1, capsule, By Mouth, Daily, Take with Fluoxetine 10mg for a total of 30mg, # 90 capsule, Refills 1, Tot. Refills 1, Maintenance, 05/04/21 16:44:00 EDT, Route to Pharmacy Electronically, [facility]/pharmacy #202, replacing 10mg dose, 160.02, cm, 08/0... [...] 05/11/21 13:11:00 EDT, [facility]/pharmacy #202, Partial fill upon patient request if the prescriptionis for a schedule II opioid drug., 160.02, cm, 100... Start Date: 05/11/21 Status: Ordered meloxicam 15 mg oral tablet 1 tablet, By Mouth, Daily, WITH FOOD., # 30 tablet, 0 Refills, [facility] STORE 35537, 160.02, cm, 05/06/21 10:09:00 EDT, Height, 143, [...] Pharmacy Electronically, [facility]/pharmacy #2024, 161, cm, 08/04/19 14:44:00 EST, Height Start Date: 08/04/19 Stop Date: 08/18/19 Status: Ordered traMADol 50 mg oral tablet 2 tablet = 100 mg, By Mouth, Every 12 hours, as needed for pain masspat checked, # 112 tablet, 0 Refills, Maintenance, 07/20/21 17:37:00 EST, [facility]/pharmacy #2024, 160.02, cm, 07/13/21 15:00:00 EST, Height, 143, kg, 01/04/21 10:42:00 EDT, Dry Weight Start Date: 07/20/21 Stop Date: 08/17/21 Status: Ordered zolpidem 10 mg oral tablet 1 tablet = 10 mg, By Mouth, Daily at bedtime, PRN for sleep, for 30 days, masspat check may fill less, # 30 tablet, 3 Refills, Acute 09/08/21 13:11:00 EST, 05/11/21 13:11:00 EDT, Tablet, [facility]/pharmacy#202, 160.02, cm, 05/06/21 10:09:00 EDT, Height,... Start [...]
--- OUTSIDE RECORDS SUMMARY | 2024-06-24 14:15 | XMS_ITS | Continuity of Care Document ---
Author Organization [facility] Address [address] [place] [address]- Care Team Providers Care Talent Management Specialist Name Role Phone Vivi HENNING, Celestina Givens Primary Care Physician Encounter [facility] Date(s): 09/04/22 - 10/31/[address] [address] Attending Physician: Jeannine Ames MD Admitting Physician: Hui HENNING, Jeannine Moreira Allergies, Adverse Reactions, Alerts No Known Allergies Immunizations Given and Recorded Vaccine Date Status Refusal Reason tetanus/diphtheria/pertussis, acel(Tdap) 1 08/21/22 Given tetanus/diphtheria/pertussis, acel(Tdap) 2 08/13/12 Given [id number]-YpS-1fYIP 12y+ bivalent booster vax 06/14/22 Recorded influenza [...] inactivated 6 07/31/12 Gi hali SARS-CoV-2 mRNA (fdhiyxf-jhhd-wvfdo) vax 02/14/22 Recorded SARS-CoV-2 (COVID-19) mRNA BNT-162b2 vac 05/06/21 Given SARS-CoV-2 (COVID-19) mRNA BNT-162b2 vac 11/04/20 Recorded SARS-CoV-2 (COVID-19) mRNA BNT-162b2 vac 10/14/20 Recorded pneumococcal 23-valent vaccine 7 04/07/19 Given 1Result Comment: [facility]# [id number] 2Admin Note: VIM dated 08/22/11 GIVEN TODAY 3Result Comment: [facility]# [id number] 4Result Comment: [05/25/2018] [facility] lot number [id number] exp 01/26/[address] [facility] [id number] 5Result Comment: [08/20/2017] [facility] [id number] 6Admin Note: VIM dated 01/29/12 GIVEN TODAY 7Result Comment: [facility]#[id number] Medications acetaminophen 500 mg oral capsule 2 [...] Stop, 04/10/2215:14:00 EDT, Route to Pharmacy Electronically, [id number], [facility]/pharmacy #2025, 158, cm, 04/10/22 14:56:00 EDT, Height, 143,... Start Date: 04/10/22 Status: Ordered amLODIPine 10 mg oral tablet 1 tablet, By Mouth, Daily, # 90 tablet, 0 Refills, Maintenance, 10/23/22 12:47:00 EDT, [facility], 157, cm, 09/13/22 15:58:00 EST, Height, 145, kg, 08/29/22 20:13:00 EST, Dry Weight Start Date: 10/23/22 Status: Ordered budesonide-formoterol 80 mcg-4.5 mcg/inh inhalation aerosol with adapter 2, puffs, Inhalation, 2 times a day, PRN, use with spacer chamber, rinse mouth and throat after use, # 10.2 Gm, Refills 5, Tot. Refills 5, Maintenance, 09/12/22 11:06:00 EST, Aerosol, Route to Pharmacy Electronically, [id number]... Start Date: 09/12/22 Status: Ordered cilostazol 100 mg oral tablet 1 tablet, By Mouth, 2 times a day, # 60 tablet, 0 Refills, Maintenance, 10/23/22 12:47:00 EDT, [facility], 157, cm, 09/13/22 15:58:00 EST, Height, 145, [...] 100 Gm, 1 Refills, 09/22/22 7:28:00 EST, [facility]/pharmacy #5, 25, APPLY TOPICALLY 4 TIMES [...] 08/31/22 13:30:00 EST, Route to Pharmacy Electronically, [facility]/pharmacy #202, Partial fill upon patient request if the p... Start Date: 08/31/22 Status: Ordered Flonase 50 mcg/inh nasal spray See Instructions, 2 sprays Nares twice daily x 1 week, then once daily x 1-2 weeks until symptoms improve, # 16 Gm, 0 Refills, Maintenance, 02/28/21 16:31:00 EDT, [place], [facility]/pharmacy #2024, Partial fill upon patient request if the prescription is for... Start Date: 02/28/21 Status: Ordered FLUoxetine 20 mg oral capsule 1, capsule, By Mouth, Daily, # 90 capsule, Refills 1, Maintenance, 10/23/22 12:47:00 EDT, Route to Pharmacy Electronically, [facility] STORE [facility]43, 157, cm, 09/13/22 15:58:00 EST, Height, 145, kg, 08/29/22 20:13:00 EST, Dry Weight Start Date: 10/23/22 Status: Ordered furosemide 20 mg oral tablet 1, tablet, By Mouth, Daily, MAY REPEAT IF NEEDED IN 2 HOURS, # 30 tablet, Refills 0, Maintenance, 10/29/22 21:42:00 EDT, Route to Pharmacy Electronically, [facility] STORE 701[facility], 157, cm, 09/13/22 15:58:00 EST, Height, 145, kg, 08/29/22 20:13:00 EST, Dry Weight Start Date: 10/29/22 Status: Ordered gabapentin 300 mg oral capsule 600 mg, 2, capsule, By Mouth, 3 times a day, # 180 capsule, Refills 3, Tot. Refills 3, Maintenance,08/25/22 22:35:00 EST, Route to Pharmacy Electronically, [facility]/pharmacy #2024, Partial fill upon patient [...] 1 Refills, Maintenance, 07/03/22 14:41:00 EST, Tablet, [facility]/pharmacy #2024, Partial fill upon patient request if the prescription is for a schedule II opioid drMelonie.. Start Date: 07/03/22 Status: Ordered meclizine 25 mg oral tablet See Instructions, PRN Dizziness, 1 tablet By Mouth 3 times a day, # 30 tablet, 0 Refills, Maintenance, 05/11/21 13:11:00 EDT, [facility]/pharmacy #2024, Partial fill upon patient request if the prescriptionis for a schedule II opioid drug., 160.02, cm, 10/0... Start Date: 05/11/21 Status: Ordered meloxicam 15 mg oral tablet See Instructions, TAKE 1 TABLET BY MOUTH DAILY WITH FOOD. LABS NEEDED FOR FURTHER REFILLS, # 30 tablet, 3 Refills, Maintenance, 10/18/22 21:31:00 EDT, [facility] STORE 95618, 157, cm, 09/13/22 15:58:00 EST,Height, 145, kg, [...] 09/05/22 16:29:00 EST, Route to Pharmacy Electronically, [facility]/pharmacy #2024, Partialfill upon patient request if [...] Team Personnel Name: Celestina Trinidad MD Position: [facility] Primary Care Physician Member Role: PCP Address: Address: [address] [place] [id number] Name: Hemalatha Lucas RN Position: [facility] RN Member Role: Primary Care Nurse Name: Lauren Mack RN Position: [facility] AMB Nurse Member Role: Primary Care Nurse Name: Madelaine Ruiz RN Position: [facility] RN Member Role: Primary Care Nurse Name: Lora Santiago RN Position: [facility] SN RN Member Role: Primary Care Nurse Name: Mayco Ro RN Position: [facility] RN Member Role: Primary Care Nurse Name: Heydi Potts RN Position: [facility] RN Member Role: Primary Care Nurse Name: Janice Romano LPN Position: [facility] RN Member Role: Primary Care Nurse Name: Nadya Low RN Position: [facility] RN Member Role: Primary Care Nurse Name: Mirna Greenfield RN Position: [facility] RN Member Role: Primary Care Nurse Name: Nessa Bonilla RN Position: [facility] Earrings Fabricator Member Role: Primary Care Nurse Care Team Related Persons Name: DINESH SARGENT Address: home [address] [address] Name: BON DE Address: home [address] [address]
--- OUTSIDE RECORDS SUMMARY | 2024-06-24 14:15 | XMS_ITS | Continuity of Care Document ---
Author Organization [facility] Address [address] [place] [address]- Care Team Providers Care Chinese Teacher Name Role Phone Vivi HENNING, Celestina Givens Primary Care Physician Encounter [facility] Date(s): 10/02/22 - 11/01/22 [facility] [address] [place] [address]- Allergies, Adverse Reactions, Alerts No Known Allergies Immunizations Given and Recorded Vaccine Date Status Refusal Reason tetanus/diphtheria/pertussis, acel(Tdap) 1 08/21/22 Given tetanus/diphtheria/pertussis, acel(Tdap) 2 08/13/12 Given ZISP-CuO-2eCXI 12y+ bivalent booster vax 06/14/22 Recorded influenza [...] inactivated 6 07/31/12 Gi hali SARS-CoV-2 mRNA (hzhtxww-vnao-bsbdb) vax 02/14/22 Recorded SARS-CoV-2 (COVID-19) mRNA BNT-162b2 vac 05/06/21 Given SARS-CoV-2 (COVID-19) mRNA BNT-162b2 vac 11/04/20 Recorded SARS-CoV-2 (COVID-19) mRNA BNT-162b2 vac 10/14/20 Recorded pneumococcal 23-valent vaccine 7 04/07/19 Given 1Result Comment: [facility]# [id number] 2Admin Note: VIM dated 08/22/11 GIVEN TODAY 3Result Comment: [facility]# [id number] 4Result Comment: [05/25/2018] [facility] lot number [id number] exp 01/26/2019 [facility] 75985-615-25 5Result Comment: [08/20/2017] [facility] [id number] 6Admin Note: VIM dated 01/29/12 GIVEN TODAY 7Result Comment: [facility]#[id number] Medications acetaminophen 500 mg oral capsule 2 [...] Stop, 04/10/2215:14:00 EDT, Route to Pharmacy Electronically, [id number], [facility]/pharmacy #2025, 158, cm, 04/10/22 14:56:00 EDT, Height, 143,... Start Date: 04/10/22 Status: Ordered amLODIPine 10 mg oral tablet 1 tablet, By Mouth, Daily, # 90 tablet, 0 Refills, Maintenance, 10/23/22 12:47:00 EDT, [facility] STORE 34285, 157, cm, 09/13/22 15:58:00 EST, Height, 145, kg, 08/29/22 20:13:00 EST, Dry Weight Start Date: 10/23/22 Status: Ordered budesonide-formoterol 80 mcg-4.5 mcg/inh inhalation aerosol with adapter 2, puffs, Inhalation, 2 times a day, PRN, use with spacer chamber, rinse mouth and throat after use, # 10.2 Gm, Refills 5, Tot. Refills 5, Maintenance, 09/12/22 11:06:00 EST, Aerosol, Route to Pharmacy Electronically, [id number]... Start Date: 09/12/22 Status: Ordered cilostazol 100 mg oral tablet 1 tablet, By Mouth, 2 times a day, # 60 tablet, 0 Refills, Maintenance, 10/23/22 12:47:00 EDT, [facility], 157, cm, 09/13/22 15:58:00 EST, Height, 145, [...] 08/31/22 13:30:00 EST, Route to Pharmacy Electronically, [facility]/pharmacy #2025, Partial fill upon patient request if the p... Start Date: 08/31/22 Status: Ordered Flonase 50 mcg/inh nasal spray See Instructions, 2 sprays Nares twice daily x 1 week, then once daily x 1-2 weeks until symptoms improve, # 16 Gm, 0 Refills, Maintenance, 02/28/21 16:31:00 EDT, [place], [facility]/pharmacy #2025, Partial fill upon patient request if the prescription is for... Start Date: 02/28/21 Status: Ordered FLUoxetine 20 mg oral capsule 1, capsule, By Mouth, Daily, # 90 capsule, Refills 1, Maintenance, 10/23/22 12:47:00 EDT, Route to Pharmacy Electronically, [facility], 157, cm, 09/13/22 15:58:00 EST, Height, 145, kg, 08/29/22 20:13:00 EST, Dry Weight Start Date: 10/23/22 Status: Ordered furosemide 20 mg oral tablet 1, tablet, By Mouth, Daily, MAY REPEAT IF NEEDED IN 2 HOURS, # 30 tablet, Refills 0, Maintenance, 10/29/22 21:42:00 EDT, Route to Pharmacy Electronically, [facility], 157, cm, 09/13/22 15:58:00 EST, Height, 145, [...] Refills, Maintenance, 07/03/22 14:41:00 EST, Tablet, [facility]/pharmacy #202, Partial fill upon patient request if the prescription is for a schedule II opioid dr... Start Date: 07/03/22 Status: Ordered meclizine 25 mg oral tablet See Instructions, PRN Dizziness, 1 tablet By Mouth 3 times a day, # 30 tablet, 0 Refills, Maintenance, 05/11/21 13:11:00 EDT, [facility]/pharmacy #202, Partial fill upon patient request if the prescriptionis for a schedule II opioid drug., 160.02, cm, 100... Start Date: 05/11/21 Status: Ordered meloxicam 15 mg oral tablet See Instructions, TAKE 1 TABLET BY MOUTH DAILY WITH FOOD. LABS NEEDED FOR FURTHER REFILLS, # 30 tablet, 3 Refills, Maintenance, 10/18/22 21:31:00 EDT, [facility], 157, cm, 09/13/22 15:58:00 EST,Height, 145, kg, [...] 09/05/22 16:29:00 EST, Route to Pharmacy Electronically, [facility]/pharmacy #2025, Partialfill upon patient request if [...] 11/20/22 16:47:00 EDT, 10/21/22 16:47:00 EDT, Tablet, [facility]/pharmacy#5, 157, cm, 09/13/22 15:58:00 EST, Height, 145... [...] Care Physician Member Role: PCP Address: Address: [address] [place] [address] Name: Hemalatha Lucas RN Position: [facility] RN Member Role: Primary Care Nurse Name: Lauren Mack RN Position: [facility] AMB Nurse Member Role: Primary Care Nurse Name: Madelaine Ruiz RN Position: [facility] RN Member Role: Primary Care Nurse Name: Lora Santiago RN Position: [facility] RN Member Role: [...] Nessa Bonilla RN Position: [facility] Legal Specialist Member Role: Primary Care Nurse Care Team Related Persons Name: DINESH SARGENT Address: home [address] [place] [address] Name: BON DE Address: [address] [address]
--- OUTSIDE RECORDS SUMMARY | 2024-06-24 14:15 | XMS_ITS | Continuity of Care Document ---
Author Organization [facility] Address [address] [address]- Care Team Providers Care Food And Beverage Lead Name Role Phone Celestina Trinidad MD Primary Care Physician Encounter [facility] Date(s): 08/25/22 - 09/01/22 [place] [id number], [place] [address]- Attending Physician: Hui HENNING, Jeannine Moreira Admitting Physician: Jeannine Ames MD Referring Physician: Celestina Trinidad MD Allergies, Adverse Reactions, Alerts No Known Allergies Immunizations Given and Recorded Vaccine Date Status Refusal Reason tetanus/diphtheria/pertussis, acel(Tdap) 1 08/21/22 Given tetanus/diphtheria/pertussis, acel(Tdap) 2 08/13/12 Given [id number] 12y+ bivalent booster vax 06/14/22 Recorded influenza [...] inactivated 6 07/31/12 Gi hali SARS-CoV-2 mRNA ([id number]) vax 02/14/22 Recorded SARS-CoV-2 (COVID-19) mRNA BNT-162b2 vac 05/06/21 Given SARS-CoV-2 (COVID-19) mRNA BNT-162b2 vac 11/04/20 Recorded SARS-CoV-2 (COVID-19) mRNA BNT-162b2 vac 10/14/20 Recorded pneumococcal 23-valent vaccine 7 04/07/19 Given 1Result Comment: [facility]# [id number] 2Admin Note: VIM dated 08/22/11 GIVEN TODAY 3Result Comment: [facility]# [id number] 4Result Comment: [05/25/2018] [employer] lot number [id number] exp 01/26/2019 [facility] 70348-392-61 5Result Comment: [08/20/2017] [facility] [id number] 6Admin Note: VIM dated 01/29/12 GIVEN TODAY 7Result Comment: [facility]#[id number] Medications acetaminophen 500 mg oral capsule 2 [...] Stop, 04/10/2215:14:00 EDT, Route to Pharmacy Electronically, [id number], [facility]/pharmacy #[id number], 158, cm, 04/10/22 14:56:00 EDT, Height, 143,... Start Date: 04/10/22 Status: Ordered amLODIPine 5 mg oral tablet 1 tablet, By Mouth, Daily, # 30 tablet, 5 Refills, Maintenance, 08/24/22 20:08:00 EST, [id number], 159, cm, 08/21/22 11:38:00 EST, Height, 143, kg, 01/04/21 10:42:00 EDT, Dry Weight Start Date: 08/24/22 Status: Ordered Anoro Ellipta 62.5 mcg-25 mcg/inh inhalation powder 1 puffs, By Mouth, Daily, # 1 each, 6 Refills, Maintenance, 05/11/22 13:00:00 EDT, Powder, [facility], Partial fill upon patient request if the prescription is for a schedule II opioid drug., 1puffs By Mouth Daily,x30 days, 158, cm, 05/08/22 11... Start Date: 05/11/22 Stop Date: 12/07/22 Status: Ordered Augmentin 875 mg-125 mg oral tablet 1 tablet, By Mouth, Every 12 hours, for 6 week(s), # 84 tablet, 0 Refills, Acute 10/12/22 13:28:00 EDT, 08/31/22 13:28:00 EST, Tablet, [facility]/pharmacy #202, Partial fill upon patient request if the prescription is for a schedule II opioid drug., 157, cm... Start Date: 08/31/22 Stop Date: 10/12/22 Status: Ordered cilostazol 100 mg oral tablet 1 tablet, By Mouth, 2 times a day, # 60 tablet, 0 Refills, Maintenance, 08/20/22 11:31:00 EST, [id number], 159, cm, 08/15/22 11:23:00 EST, Height, 143, [...] 100 Gm, 1 Refills, 09/19/21 12:51:00 EST, [facility]/pharmacy #202, 25, APPLY TOPICALLY 4 TIMES A DAY, 160.02, cm, 07/25/21 16:20:00 EST, Height, 143, kg,01/04/21 10:42:00 EDT, Dry Weight Start Date: 09/19/21 Status: Ordered docusate sodium 100 mg oral capsule 100 mg, 1, capsule, By Mouth, 2 times a day, PRN, # 20 capsule, Refills 0, Tot. Refills 0, Maintenance, as needed for constipation, 08/31/22 13:30:00 EST, Route to Pharmacy Electronically, [facility]/pharmacy #202, Partial fill upon patient request if the p... Start Date: 08/31/22 Status: Ordered Flonase 50 mcg/inh nasal spray See Instructions, 2 sprays Nares twice daily x 1 week, then once daily x 1-2 weeks until symptoms improve, # 16 Gm, 0 Refills, Maintenance, 02/28/21 16:31:00 EDT, [place], [facility]/pharmacy #2024, Partial fill upon patient request if the prescription is for... Start Date: 02/28/21 Status: Ordered fluconazole 200 mg oral tablet 2 tablet = 400 mg, By Mouth, Daily, for 6 week(s), # 84 tablet, 0 Refills, Acute 10/12/22 13:28:00 EDT, 08/31/22 13:28:00 EST, Tablet, [facility]/pharmacy #2024, Partial fill upon patient request if the prescription is for a schedule II opioid drug., 157, cm... Start Date: 08/31/22 Stop Date: 10/12/22 Status: Ordered FLUoxetine 20 mg oral capsule See Instructions, TAKE 1 CAPSULE BY MOUTH EVERY DAY, # 90 capsule, Refills 1, Maintenance, 06/13/2215:26:00 EST, Instructions Replace Required Details, Route to Pharmacy Electronically, [id number], 158, cm, 06/09/22 11:21:00 EST, Height, 143, kg... Start Date: 06/13/22 Status: Ordered gabapentin 300 mg oral capsule 600 mg, 2, capsule, By Mouth, 3 times a day, # 180 capsule, Refills 3, Tot. Refills 3, Maintenance,08/25/22 22:35:00 EST, Route to Pharmacy Electronically, [facility]/pharmacy #202, Partial fill upon patient request [...] 09/05/22 13:29:00 EST, 08/31/22 13:29:00 EST, Tablet, [facility]/pharmacy #2024, Partial fill upon [...] oldest [Reference Range]: 1 Height 159 cm (08/25/22 11:55 AM) Oxygen Saturation [94-100 %] 99 % (08/25/22 11:55 AM) Pulse Rate [55-90 bpm] 88 bpm (08/25/22 11:55 AM) Blood Pressure [90-138/55-84 mm Hg] 118/ 67mm Hg (08/25/22 11:55 AM) Blood pressure sites Arm, left (08/25/22 11:55 AM) Social History Social History Type Response Smoking Status Former smoker, quit more than 30 days ago; Other: smoked up to pack a day x 25 years; entered on: 11/14/21 Sex Note * Collette Cotton: PERFORM, SIGN, VERIFY Event Display: Patient Education/Instruction Authored Date: [id number] [facility] *[facility] Clinical Summary Name JORGE ALBERTO SAHU Age 62 Years 1960 PCP Vivi HENNING, Celestina Givens PCP Visit Date 08/25/2022 11:40:00 Additional Instructions: Scheduled Appointments?? Future Appointments ?*[facility] ?Phone:??--?Fax:??-- ?Appt. Date:??08/28/2022?8:40 AM ?Scheduled Provider:??Nydia HENNING , Jay Pepe ?*[facility] ?Phone:??--?Fax:??-- ?Appt. Date:??09/05/2022?4:20 PM ?Scheduled Provider:??Wanda Panchal ?*[facility] ?[address]??[place],??[place],??[address] ?Phone:??--?Fax:??-- ?Appt. Date:??09/12/2022?10:40 AM ?Scheduled Provider:??Gera HENNING, Hector Graham Follow-Up Instructions ?? With: Address: When: Jeannine Ames [address] [facility] [place] [address] Business (1) 09/11/2022 1:00 PM Diagnosis Medications: Please continue your medications until treatment is completed or stopped by your provider. Discuss any questions related to medications with your provider. Medications to Continue with No Changes These medications were not printed or sent to your pharmacy Acetaminophen (acetaminophen 500 mg oral capsule) 2 capsule Oral twice a day. Next Dose: Albuterol (albuterol CFC free 90 mcg/inh inhalation aerosol) 2 puff(s) Inhalation every 4 hours as needed Wheezing/Shortness of Breath. Refills: 11. Next Dose: Amlodipine (amLODIPine 5 mg oral tablet) 1 tab(s) Oral Daily. Refills: 5. Next Dose: Cilostazol (cilostazol 100 mg oral tablet) 1 tab(s) Oral twice a day. Refills: 0. Next Dose: Collagenase Topical (Santyl 250 u/gm ointment) 1 bryan Topically Daily. Refills: 2. Next Dose: Diclofenac Topical (diclofenac 1% topical gel) APPLY TOPICALLY 4 TIMES A DAY. Refills: 1. Next Dose: Doxycycline (doxycycline hyclate 100 mg oral tablet) 1 tab(s) Oral twice a day for 10 Days. Refills: 0. Next Dose: Durable Medical Equipment (Aerochamber w/Mask (Medium)) Use as directed with albuterol inhaler. Asthma ICD 10 code J45.909. Refills: 0. Next Dose: Durable Medical Equipment (Compression Stockings) surgical, calf length 20-30 mm Hg Dx: venous insufficiency. Refills: 2. Next Dose: Durable Medical Equipment (Splint) left wrist short cock-up splint. Refills: 0. Next Dose: Fluconazole (Diflucan 100 mg oral tablet) 1 tab(s) Oral Daily. Patient taking 200 mg. Next Dose: Fluoxetine (FLUoxetine 20 mg oral capsule) TAKE 1 CAPSULE BY MOUTH EVERY DAY. Refills: 1. Next Dose: Fluticasone Nasal (Flonase 50 mcg/inh nasal spray) 2 sprays Nares twice daily x 1 week, then once daily x 1-2 weeks until symptoms improve. Refills: 0. Next Dose: Gabapentin (gabapentin 300 mg oral capsule) 2 capsule Oral twice a day. Refills: 1. Next Dose: Levothyroxine (levothyroxine 0.137 mg oral tablet) 1 tab(s) Oral Daily. 1 tab on days 1-6, take 2 tabs on day 7. Refills: 1. Next Dose: Levothyroxine (levothyroxine 0.137 mg oral tablet) TAKE 1 TABLET BY MOUTH ON DAYS 1-6, THEN TAKE 2 TABLETS BY MOUTH ON DAY 7 Needs TSH lab work for refills. Refills: 0. Next Dose: Meclizine (meclizine 25 mg oral tablet) 1 tablet By Mouth 3 times a day; as needed Dizziness. Refills: 0. Next Dose: Meloxicam (meloxicam 15 mg oral tablet) TAKE 1 TABLET BY MOUTH DAILY WITH FOOD. LABS NEEDED FOR FURTHER REFILLS. Refills: 3. Next Dose: Oxycodone (oxyCODONE 10 mg oral tablet) 1 tab(s) Oral every 6 hours as needed as needed for pain. Refills: 0. Next Dose: Oxycodone (oxyCODONE 5 mg oral tablet) 1 tab(s) Oral every 6 hours. Next Dose: Tramadol (traMADol 50 mg oral tablet) 2 tab po qam and one tab po q pm prn moderate to severe pain.Refills: 0. Next Dose: umeclidinium-vilanterol (Anoro Ellipta 62.5 mcg-25 mcg/inh inhalation powder) 1 puff(s) Oral Daily for 30 Days. Refills: 6. Next Dose: Allergy Info:?? NKA Medications Given This Visit Future Orders ?Wound Deep Culture w/ Gram Smear? Order Date:08/25/22?- Complete on or after?08/25/22 ?Lupus Anticoagulant Coag Panel? Order Date:08/25/22?- Complete on or after?08/25/22 ?Anaerobic Culture? Order Date:08/25/22?- Complete on or after?08/25/22 ?Fungal Culture, Nonrespiratory? Order Date:08/25/22?- Complete by?08/25/22 ?Anaerobic Culture? Order Date:08/25/22?- Complete by?08/25/22 Vital Signs Height 159 cm Weight BMI Blood Pressure 118 mm Hg/67 mm Hg Temperature Pulse Rate 88 bpm Respiratory Rate 02 Sat Mode of Delivery 99 %/ You can now view a summary of your hospital visit from the comfort of your home through a free online portal called [employer]. [employer] is a website that allows you to securely view your medical information including discharge summary, medications and follow-up visits. ??You can alsosend a secure electronic message to your doctor???s office to request appointments, renew medications or just ask a question. You can enroll at [email or web address] or register during your next office visit. Disclaimer:?? The information provided is of a general nature and is intended to be used in conjunction with the recommendations and advice of your health care practitioner. ??Every effort has been made to ensure that the information provided is accurate and complete at the time it is provided to you however, as your needs change, or, as new ??information becomes available, different or additional instructions may be required. If you have questions, please consult with your primary care provider or pharmacist, as appropriate. ??This information is not intended to serve as substitution for assessment and evaluation by a qualified health care provider. If you do not have a primary care provider, you may find a [facility] provider by calling [facility] at [phone]. For information about the plan of care including goals and instructions for your diagnosis, please see the patient education orders section of this document. Patient Education Materials?? The content of this educational material or handout may have been modified, supplemented, or adapted from its original content and format to support your individualized medical care. Patient Care team information Care Team Personnel Name: Celestina Trinidad MD Position: [facility] Primary Care Physician Member Role: PCP Address: Address: [address] [place] [address] Name: Hemalatha Lucas RN Position: [facility] RN Member Role: Primary Care Nurse Name: Lauren Mack RN Position: [facility] AMB Nurse Member Role: Primary Care Nurse Name: Madelaine Ruiz RN Position: [facility] RN Member Role: Primary Care Nurse Name: Lora Santiago RN Position: [facility] RN Member Role: Primary Care Nurse Name: Mayco Ro RN Position: [facility] RN Member Role: Primary Care Nurse Name: Heydi Potts RN Position: [facility] RN Member Role: Primary Care Nurse Name: Janice Romano LPN Position: [facility] RN Member Role: Primary Care Nurse Name: Nadya Low RN Position: [facility] RN Member Role: Primary Care Nurse Name: Mirna Greenfield RN Position: [facility] RN Member Role: Primary Care Nurse Name: Nessa Bonilla RN Position: [facility] Manager Asset Management Member Role: Primary Care Nurse Care Team Related Persons Name: DINESH SARGENT Address: home [address] [place] [address] Name: BON DE Address: home [address] [address]
--- OUTSIDE RECORDS SUMMARY | 2024-06-24 14:15 | XMS_ITS | Continuity of Care Document ---
Author Organization [facility] Address [address] [place] [address]- Care Team Providers Care Architecture Analyst Name Role Phone Vivi HENNING, Celestina Givens Primary Care Physician Encounter [facility] Date(s): 06/08/23 - 07/08/23 [facility] [address] [place] [address]- Allergies, Adverse Reactions, Alerts No Known Allergies Immunizations Given and Recorded Vaccine Date Status Refusal Reason tetanus/diphtheria/pertussis, acel(Tdap) 1 08/21/22 Given tetanus/diphtheria/pertussis, acel(Tdap) 2 08/13/12 Given [id number] 12y+ bivalent booster vax 06/14/22 Recorded influenza [...] inactivated 6 07/31/12 Gi hali SARS-CoV-2 mRNA ([id number]) vax 02/14/22 Recorded SARS-CoV-2 (COVID-19) mRNA BNT-162b2 vac 05/06/21 Given SARS-CoV-2 (COVID-19) mRNA BNT-162b2 vac 11/04/20 Recorded SARS-CoV-2 (COVID-19) mRNA BNT-162b2 vac 10/14/20 Recorded pneumococcal 23-valent vaccine 7 04/07/19 Given 1Result Comment: [facility]# [id number] 2Admin Note: VIM dated 08/22/11 GIVEN TODAY 3Result Comment: [facility]# [id number] 4Result Comment: [05/25/2018] [facility] lot number [id number] exp 01/26/2019 [facility] [id number] 5Result Comment: [08/20/2017] [facility] [id number] 6Admin Note: VIM dated 01/29/12 GIVEN TODAY 7Result Comment: [facility]#[id number] Medications acetaminophen 500 mg oral capsule 2 [...] 0 Refills, Maintenance, 02/28/21 16:31:00 EDT, [place], [facility]/pharmacy #2024, [...] 04/03/23 11:23:00 EDT, Route to Pharmacy Electronically, [facility]/pharmacy #2024, 157, cm, 03/14/23 11:02:00 EDT, Height,145, kg, 08/29/22 20:13:00 EST, Dry Weight Start Date: 04/03/23 Status: Ordered gabapentin 300 mg oral capsule 600 mg, 2, capsule, By Mouth, 3 times a day, # 180 capsule, Refills 3, Tot. Refills 3, Maintenance,08/25/22 22:35:00 EST, Route to Pharmacy Electronically, [facility]/pharmacy #2025, [...] tablet, 2 Refills, Maintenance, 02/27/23 7:25:00 EDT, [facility] STORE [facility], 157, cm, 12/08/22 14:27:00 EDT, Height, 145, kg, 08/29/22 20:13:00 EST, Dry... Start Date: 02/27/23 Status: Ordered meclizine 25 mg oral tablet See Instructions, PRN Dizziness, 1 tablet By Mouth 3 times a day, # 30 tablet, 0 Refills, Maintenance, 02/27/23 10:43:00 EDT, [facility]/pharmacy #202, Partial fill upon patient request if the prescriptionis for a schedule II opioid drug., 157, cm, ... Start Date: 02/27/23 Status: Ordered meloxicam 15 mg oral tablet See Instructions, TAKE 1 TABLET BY MOUTH DAILY WITH FOOD. LABS NEEDED FOR FURTHER REFILLS, # 30 tablet, 1 Refills, Maintenance, 05/01/23 14:45:00 EDT, [facility]/pharmacy #2025, 157, cm, 03/14/23 11:02:00 EDT, Height, 145, kg, 08/29/22 20:13:00 EST, Dry Weight Start Date: 05/01/23 Status: Ordered oxyCODONE 5 mg oral tablet 5 mg, 1, tablet, By Mouth, Every 4 hours, PRN, you may filll this prescription for fewer pills. Edward reviewed, # 20 tablet, Refills 0, Tot. Refills 0, Maintenance, Pain , Severe, 05/22/23 9:10:00 EDT, Route to Pharmacy Electronically, [facility]/pharmacy... Start Date: 05/22/23 Status: Ordered Splint See [...] Code MRI Safety Implantable Status Assigning Authority [id number] Unknown [id number] Unknown 08/26/24 Unknown Unknown Active GS1 Patient Care team information Care Team Personnel Name: Celestina Trinidad MD Position: [facility] Physician - Primary Care Member Role: PCP Address: Address: [address] [place] [address] Name: Hemalatha Lucas RN [facility] Potts RN Position: [facility] RN [...] Name: Nessa Bonilla RN Position: [facility] Toe Puller Member Role: Primary Care Nurse Care Team Related Persons Name: DINESH SARGENT Address: home [address] [place] [address] Name: BON DE Address: home [address] [place] [id number]
--- OUTSIDE RECORDS SUMMARY | 2024-06-24 14:15 | XMS_ITS | Continuity of Care Document ---
Author Organization [facility] Address [address] [place] [address]- Care Team Providers Care Cross Country Coach Name Role Phone Vivi HENNING, Celestina Givens Primary Care Physician [place] [facility] [place]22 - 09/21/22 [facility] [address] [place] [address]- Allergies, Adverse Reactions, Alerts No Known Allergies Immunizations Given and Recorded Vaccine Date Status Refusal Reason tetanus/diphtheria/pertussis, acel(Tdap) 1 08/21/22 Given tetanus/diphtheria/pertussis, acel(Tdap) 2 08/13/12 Given [id number] 12y+ bivalent booster vax 06/14/22 Recorded influenza [...] inactivated 6 07/31/12 Gi hali SARS-CoV-2 mRNA ([id number]) vax 02/14/22 Recorded SARS-CoV-2 (COVID-19) mRNA BNT-162b2 vac 05/06/21 Given SARS-CoV-2 (COVID-19) mRNA BNT-162b2 vac 11/04/20 Recorded SARS-CoV-2 (COVID-19) mRNA BNT-162b2 vac 10/14/20 Recorded pneumococcal 23-valent vaccine 7 04/07/19 Given 1Result Comment: [facility]# [id number] 2Admin Note: VIM dated 08/22/11 GIVEN TODAY 3Result Comment: [facility]# [id number] 4Result Comment: [05/25/2018] [facility] lot number [id number] exp 01/26/2019 [facility] [id number] 5Result Comment: [08/20/2017] [facility] [id number] 6Admin Note: VIM dated 01/29/12 GIVEN TODAY 7Result Comment: [facility]#[id number] Medications acetaminophen 500 mg oral capsule 2 [...] Stop, 04/10/2215:14:00 EDT, Route to Pharmacy Electronically, [id number], [facility]/pharmacy #2025, 158, cm, 04/10/22 14:56:00 EDT, Height, 143,... Start Date: 04/10/22 Status: Ordered amLODIPine 5 mg oral tablet 1 tablet, By Mouth, Daily, # 30 tablet, 5 Refills, Maintenance, 08/24/22 20:08:00 EST, [id number], 159, cm, 08/21/22 11:38:00 EST, Height, 143, kg, 01/04/21 10:42:00 EDT, Dry Weight Start Date: 08/24/22 Status: Ordered Augmentin 875 mg-125 mg oral tablet 1 tablet, By Mouth, Every 12 hours, for 6 week(s), # 84 tablet, 0 Refills, Acute 10/12/22 13:28:00 EDT, 08/31/22 13:28:00 EST, Tablet, [facility]/pharmacy #2024, Partial [...] 11:06:00 EST, Aerosol, Route to Pharmacy Electronically, [id number]... Start Date: 09/12/22 Status: Ordered cilostazol 50 mg oral tablet 1 tablet = 50 mg, By Mouth, Daily, # 180 tablet, 0 Refills, Maintenance, 09/02/22 10:35:00 EST, Tablet, [facility]/pharmacy #2024, Partial [...] 100 Gm, 1 Refills, 09/19/21 12:51:00 EST, [facility]/pharmacy #2024, 25, APPLY TOPICALLY 4 [...] 08/31/22 13:30:00 EST, Route to Pharmacy Electronically, [facility]/pharmacy #202, Partial fill upon patient request if the p... Start Date: 08/31/22 Status: Ordered Flonase 50 mcg/inh nasal spray See Instructions, 2 sprays Nares twice daily x 1 week, then once daily x 1-2 weeks until symptoms improve, # 16 Gm, 0 Refills, Maintenance, 02/28/21 16:31:00 EDT, [place], [facility]/pharmacy #202, Partial fill upon patient request if the prescription is for... Start Date: 02/28/21 Status: Ordered fluconazole 200 mg oral tablet 2 tablet = 400 mg, By Mouth, Daily, for 6 week(s), # 84 tablet, 0 Refills, Acute 10/12/22 13:28:00 EDT, 08/31/22 13:28:00 EST, Tablet, [facility]/pharmacy #202, Partial fill upon patient request if the prescription is for a schedule II opioid drug., 157, cm... Start Date: 08/31/22 Stop Date: 10/12/22 Status: Ordered FLUoxetine 20 mg oral capsule See Instructions, TAKE 1 CAPSULE BY MOUTH EVERY DAY, # 90 capsule, Refills 1, Maintenance, 06/13/2215:26:00 EST, Instructions Replace Required Details, Route to Pharmacy Electronically, [id number], 158, cm, 06/09/22 11:21:00 EST, Height, 143, kg... Start Date: 06/13/22 Status: Ordered furosemide 20 mg oral tablet 1, tablet, By Mouth, Daily, MAY REPEAT IF NEEDED IN 2 HOURS, # 30 tablet, Refills 0, Maintenance, 09/07/22 12:45:00 EST, Route to Pharmacy Electronically, [id number], 157, cm, 09/05/22 15:49:00 EST, Height, 145, kg, 08/29/22 20:13:00 EST, Dry Weight Start Date: 09/07/22 Status: Ordered gabapentin 300 mg oral capsule 600 mg, 2, capsule, By Mouth, 3 times a day, # 180 capsule, Refills 3, Tot. Refills 3, Maintenance,08/25/22 22:35:00 EST, [facility] Partial fill upon patient request if the prescription is for a schedule II... Start Date: 08/25/22 Status: Ordered levothyroxine 0.137 mg oral tablet 1 tablet = 137 mcg, By Mouth, Daily, 1 tab on days 1-6, take 2 tabs on day 7, # 102 tablet, 1 Refills, Maintenance, 07/03/22 14:41:00 EST, Tablet, [facility]/pharmacy #2024, Partial fill upon patient request if the prescription is for a schedule II opioid dr... Start Date: 07/03/22 Status: Ordered meclizine 25 mg oral tablet See Instructions, PRN Dizziness, 1 tablet By Mouth 3 times a day, # 30 tablet, 0 Refills, Maintenance, 05/11/21 13:11:00 EDT, [facility]/pharmacy #2024, Partial fill upon patient request if the prescriptionis for a schedule II opioid drug., 160.02, cm, 10/0... Start Date: 05/11/21 Status: Ordered meloxicam 15 mg oral tablet See Instructions, TAKE 1 TABLET BY MOUTH DAILY WITH FOOD. LABS NEEDED FOR FURTHER REFILLS, # 30 tablet, 3 Refills, Maintenance, 07/17/22 19:56:00 EST, [facility]/pharmacy #2024, 158, cm, 07/13/22 13:46:00 [...] 09/05/22 16:29:00 EST, Route to Pharmacy Electronically, [facility]/pharmacy #2024, Partialfill upon patient request if the prescription is fo... Start Date: 09/05/22 Stop Date: 09/12/22 Status: Ordered traMADol 50 mg oral tablet See Instructions, 2 tab po qam and one tab po q pm prn moderate to severe pain. 28 days. mass pat ok, # 81 tablet, 0 Refills, Maintenance, 09/21/22 16:44:00 EST, [facility]/pharmacy #2024, 157, cm, 09/13/2314:58:00 EST, Height, 145, kg, 08/29/22 20:13:00 E... Start Date: 09/21/22 Status: Ordered zolpidem 10 mg oral tablet 1 tablet = 10 mg, By Mouth, Daily at bedtime, PRN for sleep, for 30 days, masspat check may fill less, # 10 tablet, 0 Refills, Acute 10/21/22 16:47:00 EDT, 09/21/22 16:47:00 EST, Tablet, [facility]/pharmacy#2024, 157, cm, 09/13/22 15:58:00 EST, [...] Team Personnel Name: Celestina Trinidad MD Position: [facility] Primary Care Physician Member Role: PCP Address: Address: [address] [place] [id number]- Name: Hemalatha Lucas RN [facility] Heydi Potts RN Position: [facility] RN Member Role: Primary Care Nurse Name: Janice Romano LPN Position: [facility] RN Member Role: Primary Care Nurse Name: Nadya Low RN Position: [facility] RN Member Role: Primary Care Nurse Name: Mirna Greenfield RN Position: [facility] RN Member Role: Primary Care Nurse Name: Nessa Bonilla RN Position: [facility] Hospital Adult Family Home Program Manager Member Role: Primary Care Nurse Care Team Related Persons Name: DINESH SARGENT Address: home [address] [place] [address] Name: BON DE Address: home [address] [address]
--- OUTSIDE RECORDS SUMMARY | 2024-06-24 14:15 | XMS_ITS | Continuity of Care Document ---
Author Organization [facility] Address [address] [place] [address]- Care Team Providers Care Stage Driver Name Role Phone Noe AHN, Mónica Graham Primary Care Physician Unava ilable Encounter [facility] Date(s): 12/21/21 - 01/20/22 [facility] [address] [place] [address]- Allergies, Adverse Reactions, Alerts No Known Allergies [...] 6 08/13/12 Given 1Result Comment: [facility]# [id number] 2Result Comment: [05/25/2018] [facility] lot number [id number] exp 01/26/2019 [facility] [id number] 3Result Comment: [08/20/2017] [facility] [id number] 4Admin Note: VIM dated 01/29/12 GIVEN TODAY 5Result Comment: [facility]#[id number] 6Admin Note: VIM dated 08/22/11 GIVEN TODAY [...] Refills, Maintenance, 01/02/22 15:20:00 EDT, Powder, [facility], Partial fill upon patient request if the prescription is for a schedule II opioid drug., 1 puffs Inhalation Daily,x30 days, 160.02, cm, 06... Start Date: 01/02/22 Stop Date: 05/02/22 Status: Ordered clotrimazole 1% topical cream 1 application, Topically, 2 times a day, for 7 days, # 45 Gm, 2 Refills, Acute 01/23/22 15:06:00 EDT, 01/02/22 15:06:00 EDT, Cream, [facility], Partial fill upon patient request if the prescription is for a schedule II opioid drug., 1 applicat... Start Date: 01/02/22 Stop Date: 01/23/22 Status: Ordered diclofenac 1% topical gel See Instructions, APPLY TOPICALLY 4 TIMES A DAY, # 100 Gm, 1 Refills, 09/19/21 12:51:00 EST, [facility]/pharmacy #2024, 25, APPLY TOPICALLY 4 TIMES A DAY, 160.02, cm, 07/25/21 16:20:00 EST, Height, 143, kg,01/04/21 10:42:00 EDT, Dry Weight Start Date: 09/19/21 Status: Ordered Flonase 50 mcg/inh nasal spray See Instructions, 2 sprays Nares twice daily x 1 week, then once daily x 1-2 weeks until symptoms improve, # 16 Gm, 0 Refills, Maintenance, 02/28/21 16:31:00 EDT, [place], [facility]/pharmacy #202, Partial fill upon patient request if the prescription is for... Start Date: 02/28/21 Status: Ordered FLUoxetine 20 mg oral capsule 20 mg, 1, capsule, By Mouth, Daily, Take with Fluoxetine 10mg for a total of 30mg, # 90 capsule, Refills 1, Tot. Refills 1, Maintenance, 12/30/21 12:34:00 EDT, Route to Pharmacy Electronically, [facility]/pharmacy #2025, replacing 10mg dose, 160.02, cm, 1... Start Date: 12/30/21 Status: Ordered levothyroxine 0.137 mg oral tablet See Instructions, TAKE 1 TABLET BY MOUTH ON DAYS 1-6, THEN TAKE 2 TABLETS BY MOUTH ON DAY 7, # 96 tablet, 1 Refills, [facility], 160.02, cm, 10/04/21 10:38:00 EST, Height, 143, kg, 01/04/21 10:42:00 EDT, Dry Weight Start Date: 11/08/21 Status: Ordered meclizine 25 mg oral tablet See Instructions, PRN Dizziness, 1 tablet By Mouth 3 times a day, # 30 tablet, 0 Refills, Maintenance, 05/11/21 13:11:00 EDT, [facility]/pharmacy #202, Partial fill upon patient [...] 0 Refills, Maintenance, 01/12/22 11:47:00 EDT, [facility], 160.02, cm, 01/12/22 11:09:00 EDT, Height, 143, [...]
--- OUTSIDE RECORDS SUMMARY | 2024-06-24 14:15 | XMS_ITS | Continuity of Care Document ---
Author Organization [facility] Address [address] [place] [address]- Care Team Providers Care Energy Attorney Name Role Phone Vivi HENNNIG, Celestina Givens Primary Care Physician Encounter [facility] [place](s): 06/16/24 - 06/23/24 [facility] [address] [place] [address]- Attending Physician: Celestina Trinidad MD Encounter Type: Office Visit Allergies, Adverse Reactions, Alerts No Known Allergies [...] 08/21/22 Given tetanus/diphtheria/pertussis, acel(Tdap) 7 08/13/12 Given [id number] 12y+ bivalent booster vax 06/14/22 Recorded SARS-CoV-2 mRNA (jsdlsiy-glgn-ryfnc) vax 02/14/22 Recorded SARS-CoV-2 (COVID-19) mRNA BNT-162b2 vac 05/06/21 Given SARS-CoV-2 (COVID-19) mRNA BNT-162b2 vac 11/04/20 Recorded SARS-CoV-2 (COVID-19) mRNA BNT-162b2 vac 10/14/20 Recorded pneumococcal 23-valent vaccine 8 04/07/19 Given 1Result Comment: screening negative 2Result Comment: [facility]# [id number] 3Result Comment: [05/25/2018] seq[employer] lot number [id number] exp 01/26/[address] [facility] [id number] 4Result Comment: [08/20/2017] [facility] [id number] 5Admin Note: VIM dated 01/29/12 GIVEN TODAY 6Result Comment: [facility]# [id number] 7Admin Note: VIM dated 08/22/11 GIVEN TODAY 8Result Comment: [facility]#[id number] Medications acetaminophen 500 mg oral capsule 2 [...] Refills, Soft Stop, :28:00 PM EDT, [facility], Partial fill upon patient request if the [...] 4:46:00 PM EDT, Route to Pharmacy Electronically, [facility]/pharmacy #2024, Partial fill upon patient request if [...] 1 Refills, Maintenance, 04/22/24 3:15:00 PM EDT, [facility]/pharmacy #2024, 30, APPLY TO AFFECTED AREA 4 TIMES A DAY. NOT COVERED, 157.5, cm, 02/12/24 14:48:00 EDT, Height, 145.9, kg, 05/22/23 7:39:00 EDT, Dry Weight Start Date: 04/22/24 Status: Ordered Quantity: 100.0 Unit: g Repeat number: 2 diclofenac 1% topical gel See Instructions, APPLY TO AFFECTED AREA 4 TIMES A DAY, # 100 Gm, 1 Refills, Maintenance, 11/07/23 7:48:00 AM EDT, [facility]/pharmacy #2024, 25, APPLY TO AFFECTED AREA 4 [...] Refills, Maintenance, 08/29/23 5:07:00 PM EST, Aerosol, [facility]/pharmacy #2024, Partial fill upon patient request if [...] 0 Refills, Maintenance, 02/28/21 4:31:00 PM EDT, [place], [facility]/pharmacy #2025, Partial fill upon patient request if [...] 9:11:00 AM EDT, Route to Pharmacy Electronically, [facility] STORE 89619,157.5, cm, 01/22/24 10:31:00 EDT, Height, 145.9, kg, 05/22/23 7:39:00 EDT, Dry Weight Start Date: 01/25/24 Status: Ordered Quantity: 90.0 Unit: capsule Repeat number: 1 FLUoxetine 20 mg oral capsule See Instructions, TAKE 1 CAPSULE BY MOUTH EVERY DAY, # 90 capsule, Refills 1, Maintenance, 06/20/2411:48:00 AM EST, Instructions Replace Required Details, Route to Pharmacy Electronically, [facility] [id number], 157.5, cm, 06/16/24 14:53:00 EST, Height, 145.9, kg, 05/22/23 7:39:00 EDT, Dry Weight Start Date: 06/20/24 Status: Ordered Quantity: 90.0 Unit: capsule Repeat number: 1 gabapentin 300 mg oral capsule 600 mg, 2, capsule, By Mouth, 3 times a day, # 180 capsule, Refills 3, Tot. Refills 3, Maintenance,08/25/22 10:35:00 PM EST, Route to Pharmacy Electronically, [facility]/pharmacy #5, Partial fill upon patient request if [...] Maintenance, 12/28/23 4:17:00 PM EDT, [id number], 157.5, cm, 10/18/23 15:15:00 EDT, Height, 145.9, kg, 05/22/23 7:39:00 EDT, Dry Weight Start Date: 12/28/23 Status: Ordered Quantity: 90.0 Unit: tablet Repeat number: 1 levothyroxine 175 mcg (0.175 mg) oral tablet 1 tablet = 175 mcg, By Mouth, Daily, # 90 tablet, 2 Refills, Maintenance, 06/17/24 1:48:00 PM EST, Tablet, [facility], Partial fill upon [...] 1 Refills, Maintenance, 03/28/24 7:37:00 AM EDT, [facility]/pharmacy #2024, 157.5, cm, 02/12/24 14:48:00 EDT, Height, 145.9, kg, 05/22/23 7:39:00 EDT, Dry Weight Start Date: 03/28/24 Status: Ordered Quantity: 30.0 Unit: tablet Repeat number: 2 metFORMIN 500 mg oral tablet, extended release 1 tablet = 500 mg, By Mouth, Daily, # 90 tablet, 1 Refills, Maintenance, 01/22/24 11:02:00 AM EDT, ER Tablet, [facility]/pharmacy #2024, Partial fill upon patient request if [...] 4:27:00 PM EDT, Route to Pharmacy Electronically, [facility]/pharmacy #202, Partial fill upon patient request, 157.5, cm, [...] Quantity: 180.0 Unit: capsule Repeat number: 2 Zepbound 2.5 mg/0.5 mL subcutaneous solution = 2.5 mg, Subcutaneous Injection, Every week, rotate injection sites, # 4 each, 2 Refills, Maintenance, 06/23/24 12:55:00 PM EST, Solution, [facility], Partial fill upon patient request if the prescription is for a schedule II opioid drug., 157.5, cm, 06/16/24 14:53:00 EST, Height, 145.9, kg, 05/22/23 7:39:00 EDT, Dry Weight Start Date: 06/23/24 Status: Ordered Quantity: 4.0 Unit: each Repeat number: 3 zolpidem 10 mg oral tablet 1 tablet = 10 mg, By Mouth, Daily at bedtime, # 30 tablet, 0 Refills, Maintenance, 06/10/24 2:39:00PM EST, [facility], Partial fill upon patient [...] Last Assessment & Plan: Continue outpatient medications. Vital Signs Most recent to oldest [Reference Range]: 1 2 Height 157.5 cm (06/16/24 2:53 PM) 157.5 cm (06/16/24 1:22 PM) Weight 139.4 kg (06/16/24 1:22 PM) Oxygen Saturation [94-100 %] 98 % (06/16/24 1:22 PM) Pulse Rate [55-90 bpm] 68 bpm (06/16/24 1:22 PM) Body Mass Index [18.5-24.99 kg/m2] 56.2 kg/m2 *>HHI* (06/16/24 1:22 PM) Blood Pressure [90-138/55-84 mm Hg] 154/ 84mm Hg *H* (06/16/24 2:53 PM) 181/98mm Hg *H* (06/16/24 1:22 PM) Blood pressure sites Arm, right (06/16/24 1:22 PM) Weight Obtained Via Standing scale (06/16/24 1:22 PM) Social History Social History Type Response [...] Code MRI Safety Implantable Status Assigning Authority [id number] Unknown [id number] Unknown 08/26/24 Unknown Unknown Active GS1 Note * Camilla Vincent: PERFORM Event Display: Patient Education/Instruction Authored Date: [id number] Ambulatory Adult Visit Summary [address] [id number] Name: JORGE ALBERTO SAHU : 1960?? Visit: 06/16/2024 13:14?? Ambulatory Visit Instructions ?? Your Care Team Primary Care Provider Celestina Trinidad MD? This Visit Provider Celestina Trinidad MD Your Diagnosis Hypothyroid Type 2 diabetes mellitus Vitals Signs Pulse Rate: 68 bpm Height: 157.5 cm Systolic Blood Pressure:??154 mm Hg??High Weight: 139.4 kg Diastolic Blood Pressure: 84 mm Hg Body Mass Index:??56.2 kg/m2??Critical Oxygen Saturation: 98 % Body surface area: 2.47 What to do next Scheduled Follow-Up Appointments Sunday 3:30 PM EST ?? Where: [facility] [address] [place] [address]- Status: Pending Sunday 4:20 PM EST ?? With: Gera HENNING, Hector Graham Where: [facility] [address] [place] [address]- Status: Pending Future Orders TSH - Routine, Once, 01/23/24 16:48:00 EDT, Order for Today, [facility], Blood?? Hemoglobin A1C (Monitoring) - Routine, Once, 01/23/24 16:50:00 EDT, Order for Today, [facility], Blood?? Vitamin D 25 Hydroxy Level - Routine, Once, 01/23/24 16:51:00 EDT, Order for Today, [facility], Blood?? Comprehensive Metabolic Panel - Routine, Once, 01/23/24 16:52:00 EDT, Order for Today, [facility], Blood?? CBC - Routine, Once, 01/23/24 20:01:00 EDT, Order for Today, [facility], Blood?? TSH - Routine, Once, 06/16/24 13:51:00 EST, Order for Today, [facility], Blood?? Hemoglobin A1C w/ Estimated Glucose - Routine, Once, 06/16/24 13:51:00 EST, Order for Today, [facility], Blood?? Comprehensive Metabolic Panel - Routine, Once, 06/16/24 13:52:00 EST, Order for Today, [facility], Blood?? Lipid Panel Non Fasting - Routine, Once, 06/16/24 13:54:00 EST, Order for Today, [facility], Blood?? Medications The list below reflects the information in our records and provided by you today along with any changes made during this visit. Please continue your medications until treatment is completed or stopped by your provider. If this is different from the information you have or there are other questions,please contact the prescribing provider. What How Much When Why Instructions Unchanged Acetaminophen (acetaminophen 500 mg oral capsule) 2 capsule Oral Twice a day Unchanged Amoxicillin (amoxicillin 500 mg oral tablet) 4 tab(s) Oral Once Prior to dental work ?? Unchanged Cholecalciferol (Vitamin D3 2000 intl units oral capsule) 2 capsule Oral Daily Unchanged Cilostazol (cilostazol 100 mg oral tablet) 60 each, 0 Refill(s), TAKE 1 TABLET BY MOUTH TWICE A DAY ?? Unchanged Cyclobenzaprine (cyclobenzaprine 10 mg oral tablet) 1 tab(s) Oral 3 times a day as needed for for spasm Unchanged Diclofenac Topical (diclofenac 1% topical gel) See instructions APPLY TO AFFECTED AREA 4 TIMES A DAY ?? Unchanged Diclofenac Topical (diclofenac 1% topical gel) See instructions APPLY TO AFFECTED AREA 4 TIMES A DAY. NOT COVERED ?? Unchanged Durable Medical Equipment (Aerochamber w/ Mask (Medium)) See instructions Use as directed with albuterol inhaler. Asthma ICD 10 code J45.909 ?? Unchanged Durable Medical Equipment (Compression Stockings) See instructions surgical, calf length 20-30 mm Hg Dx: venous insufficiency ?? Unchanged Durable Medical Equipment (Compression Stockings) See instructions surgical, calf length 20-30 mm Hg Venous insufficiency. (187.2) ?? Unchanged Durable Medical Equipment (Home Blood Pressure Monitor) See instructions use to check pressure daily ?? Unchanged Durable Medical Equipment (ROLLATOR WALKER with seat and wheels, HEAVY DUTY) See instructions use as directed. Diagnosis: osteoarthritis, Sacroiliiac dysfunction, sciatica ?? Unchanged Durable Medical Equipment (Rollator wheeled walker with seat) See instructions DX: Sacroiliac pain ?? Unchanged Durable Medical Equipment (Splint) See instructions Left wrist pain left wrist short cock-up splint ?? Unchanged Fluoxetine (FLUoxetine 10 mg oral capsule) 1 capsule Oral Daily INSTR:TO BE TAKEN WITH 20MG CAPSULES TO EQUAL 30MG DAILY ?? Unchanged Fluticasone Nasal (Flonase 50 mcg/ inh nasal spray) See instructions Serous otitis media 2 sprays Nares twice daily x 1 week, then once daily x 1-2 weeks until symptoms improve ?? Unchanged formoterol-mometasone (Dulera 50 mcg-5 mcg/ inh inhalation aerosol) 2 puff(s) Inhalation Twice a day as needed for Other Asthma, mild persistent as needed for cough, wheezing, or shortness of breath; may use up to 4 times daily for up to 1 weekdue to acute symptoms but notify prescriber if needing longer. Rinse mouth and throat after use. ?? Unchanged Gabapentin (gabapentin 300 mg oral capsule) 2 capsule Oral 3 times a day Unchanged Levothyroxine (levothyroxine 150 mcg (0.15 mg) oral tablet) 1 tab(s) Oral Daily Unchanged Meclizine (meclizine 25 mg oral tablet) See instructions 1 tablet By Mouth 3 times a day, As needed for Dizziness ?? Unchanged Meloxicam (meloxicam 15 mg oral tablet) See instructions TAKE 1 TABLET BY MOUTH DAILY WITH FOOD. ?? Unchanged Metformin (metFORMIN 500 mg oral tablet, extended release) 1 tab(s) Oral Daily Unchanged Oxycodone (oxyCODONE 5 mg oral tablet) 1 tab(s) Oral Every 4 hours as needed for Pain , Severe you may filll this prescription for fewer pills. MASSpat ??reviewed ?? Unchanged Tramadol (traMADol 50 mg oral tablet) 1 tab(s) Oral Every 4 hours as needed for for pain max 5 tabs per day ?? Unchanged Tramadol (traMADol 50 mg oral tablet) See instructions Take 2 tablets (100 mg) in the morning, 1 tab (50 mg) in afternoon,. and 1 tab (50 mg) at bedtime. Total of 4 tabs (200 mg) daily. ?? Unchanged Zolpidem (zolpidem 10 mg oral tablet) 1 tab(s) Oral Daily at Bedtime Test Performed Below is a partial list of the tests performed during your Visit. You may have had other tests and procedures not included in this list. Please discuss all test results with your provider. Comprehensive Metabolic Panel?-- Results Pending -- Hemoglobin A1C w/ Estimated Glucose?-- Results Pending -- Lipid Panel Non Fasting?-- Results Pending -- TSH?-- Results Pending -- Medications and Immunizations Administered Medications Given During Visit No medications given during this visit.?? Allergies (NKA means No Known Allergies) NKA Common Emergency Awareness Tips IS IT A [...] of these heart attack warning signs, call to get immediate medical attention! ?? Smoking can increase your chances of developing chronic health problems and can cause harmful effects to other family members in your house. If you smoke, you are strongly encouraged to quit. Please call [facility] Link at [phone] or [phone] ([phone]) or log in to [email or web address] for referrals to smoking cessation programs. ?? The National Suicide Prevention Hotline is available 19/02 if you or someone you know needs to find a reason to keep living. By calling 7-200-727-[employer] (5075) you'll be connected to a skilled, trained counselor at a crisis center in your area. [facility] Portal You can view and manage your care through the patient portal or by using a health care bryan of your choosing. [employer] is a website that allows you to securely view your medical information including your hospital discharge summary, office visit summaries, medications and follow-up visits. You can also request appointments, renew medications, and request access to your medical information using a health care bryan of your choosing, or just ask a question. You can enroll at [email or web address] or register during your next office visit. [facility], in keeping with [facility] guidance, no longer requires face masks for staff, patientsor visitors in most situations. Similiar to time spent indoors at other locations, there is the chance that you were exposed to repiratory viruses during your time with us (such as flu or COVID-19). If you develop symptoms concerning for a viral respiratory infection, please seek testing (and treatment if indicated) from your medical provider or home test kit. ?? Disclaimer: The information provided is of a [...] different or additional instructions may be required. ?? If you have questions, please consult with your primary care provider or pharmacist, as appropriate. This information is not intended to serve as substitution for assessment and evaluation by a qualified health care provider. If you do not have a primary care provider, you may find a [facility] provider by calling [facility] at [phone]. Patient Care team information Care Team Personnel Name: Celestina Trinidad MD Position: [facility] Physician - Primary Care Member Role: PCP Address: [address] [place] [address] Telecom: Name: Hemalatha Lucas RN Position: [facility] RN Member Role: Primary Care Nurse Name: Lauren Mack RN Position: [facility] RN Member Role: Primary Care Nurse Name: Madelaine Ruiz RN Position: [facility] RN Member Role: Primary Care Nurse Name: Lora Santiago RN Position: [facility] RN Member Role: Primary Care Nurse Name: Mayco Ro RN Position: [facility] RN Member Role: Primary Care Nurse Name: Heydi Potts RN Position: [facility] SN RN Member Role: Primary Care Nurse Name: Janice Romano LPN Position: [facility] RN Member Role: Primary Care Nurse Name: Nadya Low RN Position: [facility] RN Member Role: Primary Care Nurse Name: Mirna Greenfield RN Position: [facility] RN Member Role: Primary Care Nurse Name: Nessa Bonilla RN Position: [facility] Hospital Fresh Food Manager Member Role: Primary Care Nurse Care Team Related Persons Name: DINESH SARGENT Name: BON DE Insurance Providers Guarantor name: [facility] Plan Information #: 2 Payer: [facility] Member Number: [id number] Policy Number: MARTHA Group Number: NA Health Plan Information #: 1 Payer: MEDICARE PART B OUTPT Member Number: [id number] Policy Number: NA Group Number: NA
--- OUTSIDE RECORDS SUMMARY | 2024-06-24 14:15 | XMS_ITS | Continuity of Care Document ---
Author Organization [facility] Address [address] [place] [address]- Care Team Providers Care Manager Operational Name Role Phone Vivi HENNING, Celestina Givens Primary Care Physician Encounter [facility] Date(s): 01/04/23 - 02/03/23 [facility] [address] [place] [address]- Allergies, Adverse Reactions, Alerts No Known Allergies Immunizations Given and Recorded Vaccine Date Status Refusal Reason tetanus/diphtheria/pertussis, acel(Tdap) 1 08/21/22 Given tetanus/diphtheria/pertussis, acel(Tdap) 2 08/13/12 Given [id number] 12y+ bivalent booster vax 06/14/22 Recorded influenza [...] inactivated 6 07/31/12 Gi hali SARS-CoV-2 mRNA (rqhgnub-avwl-yxnms) vax 02/14/22 Recorded SARS-CoV-2 (COVID-19) mRNA BNT-162b2 vac 05/06/21 Given SARS-CoV-2 (COVID-19) mRNA BNT-162b2 vac 11/04/20 Recorded SARS-CoV-2 (COVID-19) mRNA BNT-162b2 vac 10/14/20 Recorded pneumococcal 23-valent vaccine 7 04/07/19 Given 1Result Comment: [facility]# [id number] 2Admin Note: VIM dated 08/22/11 GIVEN TODAY 3Result Comment: [facility]# [id number] 4Result Comment: [05/25/2018] [facility] lot number [id number] exp 01/26/2019 [facility] [id number] 5Result Comment: [08/20/2017] [facility] [id number] 6Admin Note: VIM dated 01/29/12 GIVEN TODAY 7Result Comment: [facility]#[id number] Medications acetaminophen 500 mg oral capsule 2 [...] Stop, 04/10/2215:14:00 EDT, Route to Pharmacy Electronically, [id number], [facility]/pharmacy #2025, 158, cm, 04/10/22 14:56:00 EDT, Height, 143,... Start Date: 04/10/22 Status: Ordered amLODIPine 10 mg oral tablet 1 tablet, By Mouth, Daily, # 90 tablet, 0 Refills, Maintenance, 10/23/22 12:47:00 EDT, [facility] STORE 85700, 157, cm, 09/13/22 15:58:00 EST, Height, 145, kg, 08/29/22 20:13:00 EST, Dry Weight Start Date: 10/23/22 Status: Ordered budesonide-formoterol 80 mcg-4.5 mcg/inh inhalation aerosol with adapter 2, puffs, Inhalation, 2 times a day, PRN, use with spacer chamber, rinse mouth and throat after use, j44.9, # 1 each, Refills 6, Tot. Refills 6, Maintenance, 12/08/22 12:55:00 EDT, Aerosol, Route to Pharmacy Electronically, [id number]... Start Date: 12/08/22 Status: Ordered Compression Stockings [...] 100 Gm, 1 Refills, Maintenance, 01/08/23 9:36:00EDT, [facility] STORE 60788, 50, APPLY TOPICALLY 4 TIMES A DAY, 157, cm, 12/08/22 14:27:00 EDT, Height, 145, kg, 08/29/22 20:13:00 EST, Dry Weight Start Date: 01/08/23 Status: Ordered docusate sodium 100 mg oral capsule 100 mg, 1, capsule, By Mouth, 2 times a day, PRN, # 20 capsule, Refills 0, Tot. Refills 0, Maintenance, as needed for constipation, 08/31/22 13:30:00 EST, Route to Pharmacy Electronically, [facility]/pharmacy #2024, Partial fill upon patient request if the p... Start Date: 08/31/22 Status: Ordered Flonase 50 mcg/inh nasal spray See Instructions, 2 sprays Nares twice daily x 1 week, then once daily x 1-2 weeks until symptoms improve, # 16 Gm, 0 Refills, Maintenance, 02/28/21 16:31:00 EDT, [place], [facility]/pharmacy #2025, Partial fill upon patient request if the prescription is for... Start Date: 02/28/21 Status: Ordered FLUoxetine 10 mg oral capsule 10 mg, 1, capsule, By Mouth, Daily, to be taken with 20mg capsules to equal 30mg daily, # 90 capsule, Refills 0, Tot. Refills 0, Maintenance, 01/18/23 9:13:00 EDT, Route to Pharmacy Electronically, [facility]/pharmacy #8915, Partial fill upon patient request... Start [...] 11/29/22 22:18:00 EDT, Route to Pharmacy Electronically, [facility] STORE 8[facility]14, 157, cm, 10/30/22 13:53:00 EDT, Height, 145, kg, 08/29/22 20:13:00 EST, Dry Weight Start Date: 11/29/22 Status: Ordered gabapentin 300 mg oral capsule 600 mg, 2, capsule, By Mouth, 3 times a day, # 180 capsule, Refills 3, Tot. Refills 3, Maintenance,08/25/22 22:35:00 EST, Route to Pharmacy Electronically, [facility]/pharmacy #2025, Partial fill [...] 1 Refills, Maintenance, 07/03/22 14:41:00 EST, Tablet, [facility]/pharmacy #2024, Partial fill upon patient request if the prescription is for a schedule II opioid drMelonie.. Start Date: 07/03/22 Status: Ordered meclizine 25 mg oral tablet See Instructions, PRN Dizziness, 1 tablet By Mouth 3 times a day, # 30 tablet, 0 Refills, Maintenance, 05/11/21 13:11:00 EDT, [facility]/pharmacy #2024, Partial fill upon patient request if the prescriptionis for a schedule II opioid drug., 160.02, cm, 10/0... Start Date: 05/11/21 Status: Ordered meloxicam 15 mg oral tablet See Instructions, TAKE 1 TABLET BY MOUTH DAILY WITH FOOD. LABS NEEDED FOR FURTHER REFILLS, # 30 tablet, 3 Refills, Maintenance, 10/18/22 21:31:00 EDT, [facility] 84[facility], 157, cm, 09/13/22 15:58:00 EST,Height, 145, kg, [...] 09/05/22 16:29:00 EST, Route to Pharmacy Electronically, [facility]/pharmacy #2024, Partialfill upon patient request if the prescription is fo... Start Date: 09/05/22 Stop Date: 09/12/22 Status: Ordered traMADol 50 mg oral tablet See Instructions, 2 tab po qam and one tab po q pm prn moderate to severe pain. 28 days. mass pat ok, # 81 tablet, 0 Refills, Maintenance, 12/29/22 15:11:00 EDT Start Date: 12/29/22 Status: Ordered Problem List Condition Confirmation Course [...] Team Personnel Name: Celestina Trinidad MD Position: [facility] Physician - Primary Care Member Role: PCP Address: Address: [address] [place] [address] Name: Hemalatha Lucas RN Position: [facility] RN Member Role: Primary Care Nurse Name: Lauren Mack RN Position: [facility] Nurse Member Role: Primary Care Nurse Name: Madelaine Ruiz RN Position: [facility] RN Member Role: Primary Care Nurse Name: oLra Santiago RN Position: [facility] SN RN [...] Care Nurse Name: Nessa Bonilla RN Position: [facility] Hospital Pegger Member Role: Primary Care Nurse Care Team Related Persons Name: ROSETTA DINESH Address: home [address] [place] [address] Name: BON DE Address: [address] [address]
--- OUTSIDE RECORDS SUMMARY | 2024-06-24 14:15 | XMS_ITS | Continuity of Care Document ---
Author Organization [facility] Address [address] [place] [address]- Care Team Providers Care Manager Universal Name Role Phone Vivi HENNING, Celestina Givens Primary Care Physician Encounter [facility] Date(s): 11/09/22 - 12/09/22 [facility] [address] [place] [address]- Allergies, Adverse Reactions, Alerts No Known Allergies Immunizations Given and Recorded Vaccine Date Status Refusal Reason tetanus/diphtheria/pertussis, acel(Tdap) 1 08/21/22 Given tetanus/diphtheria/pertussis, acel(Tdap) 2 08/13/12 Given [id number] 12y+ bivalent booster vax 06/14/22 Recorded influenza [...] inactivated 6 07/31/12 Gi hali SARS-CoV-2 mRNA (qbrxkml-cbyp-wcajp) vax 02/14/22 Recorded SARS-CoV-2 (COVID-19) mRNA BNT-162b2 vac 05/06/21 Given SARS-CoV-2 (COVID-19) mRNA BNT-162b2 vac 11/04/20 Recorded SARS-CoV-2 (COVID-19) mRNA BNT-162b2 vac 10/14/20 Recorded pneumococcal 23-valent vaccine 7 04/07/19 Given 1Result Comment: [facility]# [id number] 2Admin Note: VIM dated 08/22/11 GIVEN TODAY 3Result Comment: [facility]# [id number] 4Result Comment: [05/25/2018] [facility] lot number [id number] exp 01/26/2019 [facility] [id number] 5Result Comment: [08/20/2017] [facility] [id number] 6Admin Note: VIM dated 01/29/12 GIVEN TODAY 7Result Comment: [facility]#[id number] Medications acetaminophen 500 mg oral capsule 2 [...] Stop, 04/10/2215:14:00 EDT, Route to Pharmacy Electronically, [id number], [facility]/pharmacy #2025, 158, cm, 04/10/22 14:56:00 EDT, Height, 143,... Start Date: 04/10/22 Status: Ordered amLODIPine 10 mg oral tablet 1 tablet, By Mouth, Daily, # 90 tablet, 0 Refills, Maintenance, 10/23/22 12:47:00 EDT, [facility] STORE 11293, 157, cm, 09/13/22 15:58:00 EST, Height, 145, kg, 08/29/22 20:13:00 EST, Dry Weight Start Date: 10/23/22 Status: Ordered budesonide-formoterol 80 mcg-4.5 mcg/inh inhalation aerosol with adapter 2, puffs, Inhalation, 2 times a day, PRN, use with spacer chamber, rinse mouth and throat after use, j44.9, # 1 each, Refills 6, Tot. Refills 6, Maintenance, 12/08/22 12:55:00 EDT, Aerosol, Route to Pharmacy Electronically, [id number]... Start Date: 12/08/22 Status: Ordered Compression Stockings [...] 100 Gm, 1 Refills, 09/22/22 7:28:00 EST, [facility]/pharmacy #2024, 25, APPLY TOPICALLY 4 TIMES A DAY, 157, cm, 09/13/22 15:58:00 EST, Height, 145, kg, 08/29/22 20:13:00 EST, Dry Weight Start Date: 09/22/22 Status: Ordered docusate sodium 100 mg oral capsule 100 mg, 1, capsule, By Mouth, 2 times a day, PRN, # 20 capsule, Refills 0, Tot. Refills 0, Maintenance, as needed for constipation, 08/31/22 13:30:00 EST, Route to Pharmacy Electronically, [facility]/pharmacy #2024, Partial fill upon patient request if the p... Start Date: 08/31/22 Status: Ordered Flonase 50 mcg/inh nasal spray See Instructions, 2 sprays Nares twice daily x 1 week, then once daily x 1-2 weeks until symptoms improve, # 16 Gm, 0 Refills, Maintenance, 02/28/21 16:31:00 EDT, [place], [facility], Partial fill upon patient request if the prescription is for... Start Date: 02/28/21 Status: Ordered FLUoxetine 20 mg oral capsule 1, capsule, By Mouth, Daily, # 90 capsule, Refills 1, Maintenance, 10/23/22 12:47:00 EDT, Route to Pharmacy Electronically, [facility], 157, cm, 09/13/22 15:58:00 EST, Height, 145, kg, 08/29/22 20:13:00 EST, Dry Weight Start Date: 10/23/22 Status: Ordered furosemide 20 mg oral tablet 1, tablet, By Mouth, Daily, MAY REPEAT IF NEEDED IN 2 HOURS, # 30 tablet, Refills 0, Maintenance, 11/29/22 22:18:00 EDT, Route to Pharmacy Electronically, [facility] 42583, 157, cm, 10/30/22 13:53:00 EDT, Height, 145, kg, 08/29/22 20:13:00 EST, Dry Weight Start Date: 11/29/22 Status: Ordered gabapentin 300 mg oral capsule 600 mg, 2, capsule, By Mouth, 3 times a day, # 180 capsule, Refills 3, Tot. Refills 3, Maintenance,08/25/22 22:35:00 EST, Route to Pharmacy Electronically, [facility]/pharmacy #2024, Partial fill upon patient request [...] tablet, 0 Refills, Maintenance, 05/11/21 13:11:00 EDT, [facility]/pharmacy #202, Partial fill upon patient request if the prescriptionis for a schedule II opioid drug., 160.02, cm, 10/0... Start Date: 05/11/21 Status: Ordered meloxicam 15 mg oral tablet See Instructions, TAKE 1 TABLET BY MOUTH DAILY WITH FOOD. LABS NEEDED FOR FURTHER REFILLS, # 30 tablet, 3 Refills, Maintenance, 10/18/22 21:31:00 EDT, [facility], 157, cm, 09/13/22 15:58:00 EST,Height, 145, kg, [...] 09/05/22 16:29:00 EST, Route to Pharmacy Electronically, [facility]/pharmacy #2024, Partialfill upon patient request if [...] Personnel Name: Celestina Trinidad MD Position: [facility] Primary Care Physician Member Role: PCP Address: Address: [address] [place] [address] Name: Hemalatha Lucas RN Position: [facility] RN Member Role: Primary Care Nurse Name: Lauren Mack RN Position: [facility] AMB Nurse Member Role: Primary Care Nurse Name: Madelaine Ruiz RN Position: [facility] RN Member Role: Primary Care Nurse Name: Lora Santiago RN Position: [facility] SN RN Member Role: Primary Care Nurse Name: Mayco Ro RN Position: [facility] RN Member Role: Primary Care Nurse Name: Heydi oPtts RN Position: [facility] RN Member Role: Primary Care Nurse Name: Janice Romano LPN Position: [facility] RN Member Role: Primary Care Nurse Name: Nadya Low RN Position: [facility] RN Member Role: Primary Care Nurse Name: Mirna Greenfield RN Position: [facility] RN Member Role: Primary Care Nurse Name: Nessa Bonilla RN Position: [facility] Spinning Mule Tender Member Role: Primary Care Nurse Care Team Related Persons Name: DINESH SARGENT Address: home [address] [place] [address] Name: BON DE Address: home [address] [address]
--- OUTSIDE RECORDS SUMMARY | 2024-06-24 14:15 | XMS_ITS | Continuity of Care Document ---
Author Organization [facility] Address [address] [place] [address]- Care Team Providers Care Solar Manager Name Role Phone Florentino AHN, Elder Hannah Primary Care Physician [place] [facility] Date([place]): 02/10/21 - 03/12/21 [facility] [address] [place] [address]- Allergies, Adverse Reactions, Alerts Substance Reaction Severity [...] 08/13/12 Given 1Result Comment: [facility]# [id number] 2Result Comment: [05/25/2018] [facility] lot number [id number] exp 01/26/2019 [facility] [id number] 3Result Comment: [08/20/2017] [facility] [id number] 4Admin Note: VIM dated 01/29/12 GIVEN TODAY 5Result Comment: [facility]#[id number] 6Admin Note: VIM dated 08/22/11 GIVEN TODAY [...] 10/27/20 14:48:00 EDT, Route to Pharmacy Electronically, [id number], [facility]/pharmacy #202, 160.02, cm, 10/19/20 11:04:00 EDT, Height, 156... Start Date: 10/27/20 Status: Ordered betamethasone-clotrimazole 0.05%-1% topical cream 1 application, Topically, 2 times a day, # 45 Gm, 0 Refills, Maintenance, 12/27/20 14:13:00 EDT, [place], [facility]/pharmacy #2024, Partial fill upon patient request if the prescription is for a schedule II opioid drug., 1 application Topically 2 times a day,... Start Date: 12/27/20 Status: Ordered diclofenac 1% topical gel See Instructions, APPLY TOPICALLY 4 TIMES A DAY, # 100 Gm, 1 Refills, 10/27/20 12:37:00 EDT, [facility]/pharmacy #202, 25, APPLY TOPICALLY 4 TIMES A DAY, 160.02, cm, 10/19/20 11:04:00 EDT, Height, 156.81, kg, 10/19/20 11:04:00 EDT, Dry Weight Start Date: 10/27/20 Status: Ordered Flonase 50 mcg/inh nasal spray See Instructions, 2 sprays Nares twice daily x 1 week, then once daily x 1-2 weeks until symptoms improve, # 16 Gm, 0 Refills, Maintenance, 02/28/21 16:31:00 EDT, [place], [facility]/pharmacy #2025, Partial fill upon patient request if the prescription is for... Start Date: 02/28/21 Status: Ordered FLUoxetine 10 mg oral capsule 10 mg, 1, capsule, By Mouth, Daily, Take with 20mg capsule for total of 30mg daily, # 90 capsule, Refills 0, Tot. Refills 0, Maintenance, 03/11/21 12:00:00 EDT, Route to Pharmacy Electronically, [facility]/pharmacy #202, Partial fill upon patient request if... Start Date: 03/11/21 Status: Ordered FLUoxetine 20 mg oral capsule 20 mg, 1, capsule, By Mouth, Daily, # 30 capsule, Refills 5, Tot. Refills 5, Maintenance, 12/20/20 14:39:00 EDT, Route to Pharmacy Electronically, [facility]/pharmacy #202, replacing 10mg dose, 160.02, cm,12/20/20 11:59:00 EDT, Height, 156.81, kg, 10/19/20... Start Date: 12/20/20 Status: Ordered levothyroxine 0.137 mg oral tablet See Instructions, Take 1 tablet by mouth on days 1-6, then take 2 tablets by mouth on day 7, # 121 tablet, 5 Refills, Maintenance, 12/07/20 9:46:00 EDT, [facility]/pharmacy #202, 160.02, cm, 10/19/20 11:04:00 EDT, Height, 156.81, kg, 10/19/20 11:04:00 EDT,... Start Date: 12/07/20 Status: Ordered meloxicam 15 mg oral tablet 1 tablet, By Mouth, Daily, WITH FOOD., # 30 tablet, 1 Refills, Maintenance, 02/13/21 16:32:00 EDT, [facility] STORE 20489, 160.02, cm, 01/04/21 10:42:00 EDT, Height, 143, [...] Electronically, [facility]/pharmacy #2025, 161, cm, 08/04/19 14:44:00 [...] less, # 30 tablet, 0 Refills, Acute 03/19/21 16:45:00 EDT, 02/17/21 16:45:00 EDT, Tablet, [facility], 160.02, cm, 01/04/21 10:42:00 EDT, Height,... Start Date: 02/17/21 Stop Date: 03/19/21 Status: Ordered Problem List [...]
--- OUTSIDE RECORDS SUMMARY | 2024-06-24 14:16 | XMS_ITS | Continuity of Care Document ---
Author Organization [facility] Address [address] [place] [address]- Care Team Providers Care Plastic Duplicator Name Role Phone Vivi HENNING, Celestina Givens Primary Care Physician Encounter [facility] Date(s): 02/22/24 - 03/23/24 [facility] [address] [place] [address]- Allergies, Adverse Reactions, Alerts No Known Allergies [...] 08/21/22 Given tetanus/diphtheria/pertussis, acel(Tdap) 7 08/13/12 Given [id number] 12y+ bivalent booster vax 06/14/22 Recorded SARS-CoV-2 mRNA (rpngbqj-tpno-txwet) vax 02/14/22 Recorded SARS-CoV-2 (COVID-19) mRNA BNT-162b2 vac 05/06/21 Given SARS-CoV-2 (COVID-19) mRNA BNT-162b2 vac 11/04/20 Recorded SARS-CoV-2 (COVID-19) mRNA BNT-162b2 vac 10/14/20 Recorded pneumococcal 23-valent vaccine 8 04/07/19 Given 1Result Comment: screening negative 2Result Comment: [facility]# [id number] 3Result Comment: [05/25/2018] [facility] lot number [id number] exp 01/26/2019 [facility] [id number] 4Result Comment: [08/20/2017] [facility] [id number] 5Admin Note: VIM dated 01/29/12 GIVEN TODAY 6Result Comment: [facility]# [id number] 7Admin Note: VIM dated 08/22/11 GIVEN TODAY 8Result Comment: [facility]#[id number] Medications acetaminophen 500 mg oral capsule 2 [...] 1 Refills, Soft Stop, 12/06/23 17:28:00 EDT, [facility]/pharmacy #5, Partial [...] 05/17/24 16:46:00 EDT, Route to Pharmacy Electronically, [facility]/pharmacy #2024, Partial fill upon patient request if the prescription is for a... Start Date: 05/17/24 Status: Ordered cyclobenzaprine 10 mg oral tablet 10 mg, 1, tablet, By Mouth, 3 times a day, PRN, # 30 tablet, Refills 0, Tot. Refills 0, Acute 05/17/24 16:46:00 EDT, for spasm, 05/17/23 16:45:00 EDT, Route to Pharmacy Electronically, [facility]/pharmacy #2024, Partial [...] Refills, Maintenance, 02/01/24 13:44:00 EDT, [facility], 30, APPLY TO AFFECTED AREA 4 TIMES [...] Gm, 0 Refills, Maintenance, 02/28/21 16:31:00 EDT, [place], [facility]/pharmacy #5, Partial fill upon patient request if the prescription is for... Start Date: 02/28/21 Status: Ordered FLUoxetine 10 mg oral capsule 1, capsule, By Mouth, Daily, INSTR:TO BE TAKEN WITH 20MG CAPSULES TO EQUAL 30MG DAILY, # 90 capsule, Refills 1, Maintenance, 01/25/24 9:11:00 EDT, Route to Pharmacy Electronically, [facility] STORE 69256, 157.5, cm, 01/22/24 10:31:00 EDT, Height, 145.9, kg,... Start Date: 01/25/24 Status: Ordered gabapentin 300 mg oral capsule 600 mg, 2, capsule, By Mouth, 3 times a day, # 180 capsule, Refills 3, Tot. Refills 3, Maintenance,08/25/22 22:35:00 EST, Route to Pharmacy Electronically, [facility]/pharmacy #2024, Partial [...] Refills, Maintenance, 12/28/23 16:17:00 EDT, [facility], 157.5, cm, 10/18/23 15:15:00 EDT, Height, 145.9, [...] tablet, 5 Refills, Maintenance, 10/08/23 17:05:00 EDT, [facility]/pharmacy #2025, 157.5, cm, 07/13/23 9:57:00 EST, Height, 145.9, kg, 237:39:00 EDT, Dry Weight Start Date: 10/08/23 Status: Ordered metFORMIN 500 mg oral tablet, extended release 1 tablet = 500 mg, By Mouth, Daily, # 90 tablet, 1 Refills, Maintenance, 01/22/24 11:02:00 EDT, ER Tablet, [facility]/pharmacy #2025, Partial [...] Code MRI Safety Implantable Status Assigning Authority [id number] Unknown [id number] Unknown 08/26/24 Unknown Unknown Active GS1 Patient Care team information Care Team Personnel Name: Celestina Trinidad MD Position: [facility] Physician - Primary Care Member Role: PCP Address: Address: [address] [place] [address] Name: Hemalatha Lucas RN Position: [facility] RN Member Role: Primary Care Nurse Name: Lauren Mack RN Position: [facility] MARY Nurse Member Role: Primary Care Nurse Name: Madelaine Ruiz RN Position: [facility] RN Member Role: Primary Care Nurse Name: Lora Santiago RN Position: [facility] RN Member Role: Primary Care Nurse Name: Mayco Ro RN Position: [facility] RN Member Role: Primary Care Nurse Name: Heydi Potts RN Position: [facility] SN RN Member Role: Primary Care Nurse Name: Janice Romano LPN Position: [facility] RN Member Role: Primary Care Nurse Name: Nadya Low RN Position: [facility] RN Member Role: Primary Care Nurse Name: Mirna Greenfield RN Position: [facility] RN Member Role: Primary Care Nurse Name: Nessa Bonilla RN Position: [facility] [employer] Seed Specialist Member Role: Primary Care Nurse Care Team Related Persons Name: DINESH SARGENT Address: home [address] [place] [address] Name: BON DE Address: home [address] [place] [id number]
--- OUTSIDE RECORDS SUMMARY | 2024-06-24 14:16 | XMS_ITS | Continuity of Care Document ---
Author Organization [facility] Address [address] [place] [address]- Care Team Providers Care Pillar Man Name Role Phone Vivi HENNING, Celestina Givens Primary Care Physician Encounter [facility] Date(s): 12/27/22 - 01/26/23 [facility] [address] [place] [address]- Allergies, Adverse Reactions, Alerts No Known Allergies Immunizations Given and Recorded Vaccine Date Status Refusal Reason tetanus/diphtheria/pertussis, acel(Tdap) 1 08/21/22 Given tetanus/diphtheria/pertussis, acel(Tdap) 2 08/13/12 Given [id number] 12y+ bivalent booster vax 06/14/22 Recorded influenza [...] inactivated 6 07/31/12 Gi hali SARS-CoV-2 mRNA (vgsyrsn-mmuw-czoqm) vax 02/14/22 Recorded SARS-CoV-2 (COVID-19) mRNA BNT-162b2 vac 05/06/21 Given SARS-CoV-2 (COVID-19) mRNA BNT-162b2 vac 11/04/20 Recorded SARS-CoV-2 (COVID-19) mRNA BNT-162b2 vac 10/14/20 Recorded pneumococcal 23-valent vaccine 7 04/07/19 Given 1Result Comment: [facility]# [id number] 2Admin Note: VIM dated 08/22/11 GIVEN TODAY 3Result Comment: [facility]# [id number] 4Result Comment: [05/25/2018] [facility] lot number [id number] exp 01/26/2019 [facility] [id number] 5Result Comment: [08/20/2017] [facility] [id number] 6Admin Note: VIM dated 01/29/12 GIVEN TODAY 7Result Comment: [facility]#[id number] Medications acetaminophen 500 mg oral capsule 2 [...] Stop, 04/10/2215:14:00 EDT, Route to Pharmacy Electronically, [id number], [facility]/pharmacy #2025, 158, cm, 04/10/22 14:56:00 EDT, Height, 143,... Start Date: 04/10/22 Status: Ordered amLODIPine 10 mg oral tablet 1 tablet, By Mouth, Daily, # 90 tablet, 0 Refills, Maintenance, 10/23/22 12:47:00 EDT, [facility] STORE 41205, 157, cm, 09/13/22 15:58:00 EST, Height, 145, kg, 08/29/22 20:13:00 EST, Dry Weight Start Date: 10/23/22 Status: Ordered budesonide-formoterol 80 mcg-4.5 mcg/inh inhalation aerosol with adapter 2, puffs, Inhalation, 2 times a day, PRN, use with spacer chamber, rinse mouth and throat after use, j44.9, # 1 each, Refills 6, Tot. Refills 6, Maintenance, 12/08/22 12:55:00 EDT, Aerosol, Route to Pharmacy Electronically, [id number]... Start Date: 12/08/22 Status: Ordered Compression Stockings [...] 100 Gm, 1 Refills, Maintenance, 01/08/23 9:36:00EDT, [facility] STORE 96268, 50, APPLY TOPICALLY 4 TIMES A DAY, 157, cm, 12/08/22 14:27:00 EDT, Height, 145, kg, 08/29/22 20:13:00 EST, Dry Weight Start Date: 01/08/23 Status: Ordered docusate sodium 100 mg oral capsule 100 mg, 1, capsule, By Mouth, 2 times a day, PRN, # 20 capsule, Refills 0, Tot. Refills 0, Maintenance, as needed for constipation, 08/31/22 13:30:00 EST, Route to Pharmacy Electronically, [facility]/pharmacy #2024, Partial fill upon patient request if the p... Start Date: 08/31/22 Status: Ordered Flonase 50 mcg/inh nasal spray See Instructions, 2 sprays Nares twice daily x 1 week, then once daily x 1-2 weeks until symptoms improve, # 16 Gm, 0 Refills, Maintenance, 02/28/21 16:31:00 EDT, [place], [facility]/pharmacy #2025, Partial fill upon patient request if the prescription is for... Start Date: 02/28/21 Status: Ordered FLUoxetine 10 mg oral capsule 10 mg, 1, capsule, By Mouth, Daily, to be taken with 20mg capsules to equal 30mg daily, # 90 capsule, Refills 0, Tot. Refills 0, Maintenance, 01/18/23 9:13:00 EDT, Route to Pharmacy Electronically, [facility]/pharmacy #8915, Partial fill upon patient [...] 11/29/22 22:18:00 EDT, Route to Pharmacy Electronically, [facility] STORE 30657, 157, cm, 10/30/22 13:53:00 EDT, Height, 145, kg, 08/29/22 20:13:00 EST, Dry Weight Start Date: 11/29/22 Status: Ordered gabapentin 300 mg oral capsule 600 mg, 2, capsule, By Mouth, 3 times a day, # 180 capsule, Refills 3, Tot. Refills 3, Maintenance,08/25/22 22:35:00 EST, Route to Pharmacy Electronically, [facility]/pharmacy #2025, Partial fill upon patient [...] 1 Refills, Maintenance, 07/03/22 14:41:00 EST, Tablet, [facility]/pharmacy #2024, Partial fill upon patient request if the prescription is for a schedule II opioid dr... Start Date: 07/03/22 Status: Ordered meclizine 25 mg oral tablet See Instructions, PRN Dizziness, 1 tablet By Mouth 3 times a day, # 30 tablet, 0 Refills, Maintenance, 05/11/21 13:11:00 EDT, [facility]/pharmacy #2024, Partial fill upon patient request if the prescriptionis for a schedule II opioid drug., 160.02, cm, 10/0... Start Date: 05/11/21 Status: Ordered meloxicam 15 mg oral tablet See Instructions, TAKE 1 TABLET BY MOUTH DAILY WITH FOOD. LABS NEEDED FOR FURTHER REFILLS, # 30 tablet, 3 Refills, Maintenance, 10/18/22 21:31:00 EDT, [facility] STORE 58386, 157, cm, 09/13/22 15:58:00 EST,Height, 145, kg, [...] 09/05/22 16:29:00 EST, Route to Pharmacy Electronically, [facility]/pharmacy #2024, Partialfill upon patient request [...] Care Member Role: PCP Address: Address: [address] [place] [address] Name: Hemalatha Lucas RN Position: [facility] [...] Nessa Bonilla RN Position: [facility] Night [facility]er Member Role: Primary Care Nurse Care Team Related Persons Name: ROSETTADINESH Address: home [address] [place] [address] Name: BON DE Address: home [address] [address]
--- OUTSIDE RECORDS SUMMARY | 2024-06-24 14:16 | XMS_ITS | Continuity of Care Document ---
Author Organization [facility] Address [address] [place] [address]- Care Team Providers Care Prototype Technician Name Role Phone Vivi HENNING, Celestina Givens Primary Care Physician Encounter [facility] [place] [place] Date(s): 11/29/23 - 12/29/23 [facility] [address] [place] [address]- Allergies, Adverse Reactions, Alerts No Known Allergies [...] 08/21/22 Given tetanus/diphtheria/pertussis, acel(Tdap) 7 08/13/12 Given [id number] 12y+ bivalent booster vax 06/14/22 Recorded SARS-CoV-2 mRNA (ciiosuw-aiql-faepx) vax 02/14/22 Recorded SARS-CoV-2 (COVID-19) mRNA BNT-162b2 vac 05/06/21 Given SARS-CoV-2 (COVID-19) mRNA BNT-162b2 vac 11/04/20 Recorded SARS-CoV-2 (COVID-19) mRNA BNT-162b2 vac 10/14/20 Recorded pneumococcal 23-valent vaccine 8 04/07/19 Given 1Result Comment: screening negative 2Result Comment: [facility]# [id number] 3Result Comment: [05/25/2018] seq[employer] lot number [id number] exp 01/26/2019 [facility] [id number] 4Result Comment: [08/20/2017] [facility] [id number] 5Admin Note: VIM dated 01/29/12 GIVEN TODAY 6Result Comment: [facility]# [id number] 7Admin Note: VIM dated 08/22/11 GIVEN TODAY 8Result Comment: [facility]#[id number] Medications acetaminophen 500 mg oral capsule 2 [...] 1 Refills, Soft Stop, 12/06/23 17:28:00 EDT, [facility]/pharmacy #5, Partial fill upon [...] Gm, 1 Refills, Maintenance, 11/07/23 7:48:00 EDT, [facility]/pharmacy #2024, 25, APPLY TO AFFECTED AREA 4 [...] Gm, 0 Refills, Maintenance, 02/28/21 16:31:00 EDT, [place], [facility]/pharmacy #2024, Partial fill upon patient request if the prescription is for... Start Date: 02/28/21 Status: Ordered FLUoxetine 10 mg oral capsule 10 mg, 1, capsule, By Mouth, Daily, to be taken with 20mg capsules to equal 30mg daily, # 90 capsule, Refills 1, Tot. Refills 1, Maintenance, 07/31/23 19:01:00 EST, Route to Pharmacy Electronically, [facility]/pharmacy #2024, Partial fill upon patient reques... Start Date: 07/31/23 Status: Ordered FLUoxetine 20 mg oral capsule 1, capsule, By Mouth, Daily, # 90 capsule, Refills 1, Tot. Refills 1, Maintenance, 07/31/23 19:01:00 EST, Route to Pharmacy Electronically, [facility]/pharmacy #2024, 157.5, cm, 07/13/23 9:57:00 EST, Height, [...] tablet, 1 Refills, Maintenance, 12/28/23 16:17:00 EDT, [facility] STORE [id number], 157.5, cm, 10/18/23 15:15:00 EDT, Height, 145.9, kg, 05/22/23 7:39:00 EDT, Dry Weight Start Date: 12/28/23 Status: Ordered meclizine 25 mg oral tablet See Instructions, PRN Dizziness, 1 tablet By Mouth 3 times a day, # 30 tablet, 0 Refills, Maintenance, 02/27/23 10:43:00 EDT, [facility]/pharmacy #2025, Partial fill upon [...] Refills, Maintenance, 10/24/23 11:39:00 EDT, ER Tablet, [facility]/pharmacy #2025, Partial fill [...] Code MRI Safety Implantable Status Assigning Authority [id number] Unknown [id number] Unknown 08/26/24 Unknown Unknown Active GS1 Patient Care team information Care Team Personnel Name: Celestina Trinidad MD Position: [facility] Physician - Primary Care Member Role: PCP Address: Address: [address] [place] [address] Name: Hemalatha Lucas RN Position: [facility] RN Member Role: Primary Care Nurse Name: Lauren Mack RN Position: [facility] AMB Nurse Member Role: Primary Care Nurse Name: Madelaine Ruiz RN Position: [facility] RN Member Role: Primary Care Nurse Name: Lora Santiago RN Position: [facility] SN RN Member Role: Primary Care Nurse Name: Mayco Ro RN Position: [facility] RN Member Role: Primary Care Nurse Name: Heydi Potts RN Position: [facility] SN RN Member Role: Primary Care Nurse Name: Janice Romano LPN Position: [facility] RN Member Role: Primary Care Nurse Name: Nadya Low RN Position: [facility] RN Member Role: Primary Care Nurse Name: Mirna Greenfield RN Position: [facility] RN Member Role: Primary Care Nurse Name: Nessa Bonilla RN Position: [facility] Stone Polisher Hand Member Role: Primary Care Nurse Care Team Related Persons Name: DINESH SARGENT Address: home [address] [place] [address] Name: BON DE Address: home [address] [address]
--- OUTSIDE RECORDS SUMMARY | 2024-06-24 14:16 | XMS_ITS | Continuity of Care Document ---
Author Organization [facility] Address [address] [place] [address]- Care Team Providers Care Asphalt Tamper Name Role Phone Noe AHN, Mónica Graham Primary Care Physician Encounter [facility] Date(s): 05/09/21 - 06/08/21 [facility] [place] [address] [place] [address]- Allergies, Adverse Reactions, Alerts Substance Reaction Severity [...] Comment: [facility]# [id number] 2Result Comment: [05/25/2018] seq[employer] lot number [id number] exp 01/26/2019 [facility] [id number] 3Result Comment: [08/20/2017] [facility] [id number] 4Admin Note: VIM dated 01/29/12 GIVEN TODAY 5Result Comment: [facility]#[id number] 6Admin Note: VIM dated 08/22/11 GIVEN TODAY [...] 10/27/20 14:48:00 EDT, Route to Pharmacy Electronically, [id number], [facility]/pharmacy #2024, 160.02, cm, 10/19/20 11:04:00 EDT, Height, 156... Start Date: 10/27/20 Status: Ordered betamethasone-clotrimazole 0.05%-1% topical cream 1 application, Topically, 2 times a day, # 45 Gm, 0 Refills, Maintenance, 12/27/20 14:13:00 EDT, [place], [facility]/pharmacy #2024, Partial fill upon patient [...] Gm, 0 Refills, Maintenance, 02/28/21 16:31:00 EDT, [place], [facility]/pharmacy #2024, Partial fill upon patient request if the prescription is for... Start Date: 02/28/21 Status: Ordered FLUoxetine 10 mg oral capsule 10 mg, 1, capsule, By Mouth, Daily, Take with 20mg capsule for total of 30mg daily, # 90 capsule, Refills 1, Tot. Refills 1, Maintenance, 05/04/21 16:44:00 EDT, Route to Pharmacy Electronically, [facility]/pharmacy #202, Partial fill upon patient request if... Start Date: 05/04/21 Status: Ordered FLUoxetine 20 mg oral capsule 20 mg, 1, capsule, By Mouth, Daily, Take with Fluoxetine 10mg for a total of 30mg, # 90 capsule, Refills 1, Tot. Refills 1, Maintenance, 05/04/21 16:44:00 EDT, Route to Pharmacy Electronically, [facility]/pharmacy #2024, replacing 10mg dose, 160.02, cm, 08/0... Start Date: 05/04/21 Status: Ordered levothyroxine 0.137 mg oral tablet See Instructions, Take 1 tablet by mouth on days 1-6, then take 2 tablets by mouth on day 7, # 121 tablet, 5 Refills, Maintenance, 12/07/20 9:46:00 EDT, [facility]/pharmacy #2024, 160.02, cm, 10/19/20 11:04:00 EDT, Height, 156.81, kg, 10/19/20 11:04:00 EDT,... Start Date: 12/07/20 Status: Ordered meclizine 25 mg oral tablet See Instructions, PRN Dizziness, 1 tablet By Mouth 3 times a day, # 30 tablet, 0 Refills, Maintenance, 05/11/21 13:11:00 EDT, [facility]/pharmacy #202, Partial fill upon patient request if the prescriptionis for a schedule II opioid drug., 160.02, cm, 10/0... Start Date: 05/11/21 Status: Ordered meloxicam 15 mg oral tablet 1 tablet, By Mouth, Daily, WITH FOOD., # 30 tablet, 0 Refills, Maintenance, 06/06/21 13:21:00 EST, [facility]/pharmacy #2025, 160.02, cm, 05/06/21 10:09:00 EDT, Height, 143, kg, 01/04/21 10:42:00 EDT, Dry Weight Start Date: 06/06/21 Status: Ordered Splint See Instructions, # 1 each, Maintenance, left wrist short cock-up splint, 01/08/20 14:28:00 EDT, Supply Start Date: 01/08/20 Status: Ordered tiZANidine 2 mg oral tablet 2 mg, 1, tablet, By Mouth, Daily at bedtime, PRN, # 14 tablet, Refills 0, Tot. Refills 0, Maintenance, as needed for muscle spasm, 08/04/19 17:54:00 EST, Route to Pharmacy Electronically, [facility]/pharmacy #2025, 161, cm, 08/04/19 14:44:00 EST, Height Start Date: 08/04/19 Stop Date: 08/18/19 Status: Ordered traMADol 50 mg oral tablet 2 tablet = 100 mg, By Mouth, Every 12 hours, as needed for pain masspat checked, # 120 tablet, 2 Refills, Maintenance, 05/11/21 13:11:00 EDT, [facility]/pharmacy #2025, 160.02, cm, 05/06/21 10:09:00 EDT, Height, 143, kg, 01/04/21 10:42:00 EDT, Dry Weight Start Date: 05/11/21 Stop Date: 08/09/21 Status: Ordered traMADol 50 mg oral tablet 2 tablet = 100 mg, By Mouth, Every 12 hours, as needed for pain masspat checked, # 120 tablet, 2 Refills, Maintenance, 02/10/21 12:37:00 EDT, [facility]/pharmacy #2025, 160.02, cm, 01/04/21 10:42:00 EDT, Height, [...]
--- OUTSIDE RECORDS SUMMARY | 2024-06-24 14:16 | XMS_ITS | Continuity of Care Document ---
Author Organization [facility] em Address Unknown Care Team Providers Care Assistant Manager/Embalmer Name Role Phone Celestina Trinidad MD Primary Care Physician Encounter [facility] [place] Date(s): 05/22/23 - 07/06/23 [facility] Attending Physician: Yasemin Diaz MD Admitting Physician: Yasemin Diaz MD Allergies, Adverse Reactions, Alerts No Known Allergies Immunizations Given and Recorded Vaccine Date Status Refusal Reason tetanus/diphtheria/pertussis, acel(Tdap) 1 08/21/22 Given tetanus/diphtheria/pertussis, acel(Tdap) 2 08/13/12 Given [id number] 12y+ bivalent booster vax 06/14/22 Recorded influenza [...] inactivated 6 07/31/12 Gi hali SARS-CoV-2 mRNA (ddwuzob-jxap-pgbrr) vax 02/14/22 Recorded SARS-CoV-2 (COVID-19) mRNA BNT-162b2 vac 05/06/21 Given SARS-CoV-2 (COVID-19) mRNA BNT-162b2 vac 11/04/20 Recorded SARS-CoV-2 (COVID-19) mRNA BNT-162b2 vac 10/14/20 Recorded pneumococcal 23-valent vaccine 7 04/07/19 Given 1Result Comment: [facility]# [id number] 2Admin Note: VIM dated 08/22/11 GIVEN TODAY 3Result Comment: [facility]# [id number] 4Result Comment: [05/25/2018] seq[facility] lot number [id number] exp 01/26/2019 [facility] [id number] 5Result Comment: [08/20/2017] [facility] [id number] 6Admin Note: VIM dated 01/29/12 GIVEN TODAY 7Result Comment: [facility]#[id number] Medications acetaminophen 500 mg oral capsule 2 [...] 05/17/23 16:45:00 EDT, Route to Pharmacy Electronically, [facility]/pharmacy #2025, Partial fill upon patient request if the presc... Start Date: 05/17/23 Stop Date: 05/17/24 Status: Ordered diclofenac 1% topical gel See Instructions, APPLY TOPICALLY 4 TIMES A DAY, # 100 Gm, 1 Refills, Maintenance, 06/05/23 10:25:00 EST, [facility]/pharmacy #2024, 50, APPLY TOPICALLY 4 TIMES A DAY, 157.5, cm, 05/22/23 7:39:00 EDT, Height, 145.9, kg, 05/22/23 7:39:00 EDT, Dry Weight Start Date: 06/05/23 Status: Ordered Flonase 50 mcg/inh nasal spray See Instructions, 2 sprays Nares twice daily x 1 week, then once daily x 1-2 weeks until symptoms improve, # 16 Gm, 0 Refills, Maintenance, 02/28/21 16:31:00 EDT, [place], [facility]/pharmacy #2025, Partial fill upon patient request if the prescription is for... Start Date: 02/28/21 Status: Ordered FLUoxetine 10 mg oral capsule 10 mg, 1, capsule, By Mouth, Daily, to be taken with 20mg capsules to equal 30mg daily, # 90 capsule, Refills 1, Tot. Refills 1, Maintenance, 04/03/23 11:25:00 EDT, Route to Pharmacy Electronically, [facility]/pharmacy #2025, Partial fill upon patient reques... Start Date: 04/03/23 Status: Ordered FLUoxetine 20 mg oral capsule 1, capsule, By Mouth, Daily, # 90 capsule, Refills 1, Tot. Refills 1, Maintenance, 04/03/23 11:23:00 EDT, Route to Pharmacy Electronically, [facility]/pharmacy #2025, 157, cm, 03/14/23 11:02:00 EDT, Height,145, kg, 08/29/22 20:13:00 EST, Dry Weight Start Date: 04/03/23 Status: Ordered gabapentin 300 mg oral capsule 600 mg, 2, capsule, By Mouth, 3 times a day, # 180 capsule, Refills 3, Tot. Refills 3, Maintenance,08/25/22 22:35:00 EST, Route to Pharmacy Electronically, [facility]/pharmacy #202, Partial fill upon patient request [...] tablet, 2 Refills, Maintenance, 02/27/23 7:25:00 EDT, [facility] STORE 20233, 157, cm, 12/08/22 14:27:00 EDT, Height, 145, kg, 08/29/22 20:13:00 EST, Dry... Start Date: 02/27/23 Status: Ordered meclizine 25 mg oral tablet See Instructions, PRN Dizziness, 1 tablet By Mouth 3 times a day, # 30 tablet, 0 Refills, Maintenance, 02/27/23 10:43:00 EDT, [facility]/pharmacy #202, Partial fill upon patient request if the prescriptionis for a schedule II opioid drug., 157, cm, ... Start Date: 02/27/23 Status: Ordered meloxicam 15 mg oral tablet See Instructions, TAKE 1 TABLET BY MOUTH DAILY WITH FOOD. LABS NEEDED FOR FURTHER REFILLS, # 30 tablet, 1 Refills, Maintenance, 05/01/23 14:45:00 EDT, [facility]/pharmacy #2025, 157, cm, 03/14/23 11:02:00 EDT, [...] 05/22/23 9:10:00 EDT, Route to Pharmacy Electronically, [facility]/pharmacy... Start Date: 05/22/23 Status: Ordered Splint [...] 07/12/23 11:04:00 EST, 06/12/23 11:04:00 EST, Tablet, [facility]/pharmacy #2024, early refill for travel. Thanks., [...] Code MRI Safety Implantable Status Assigning Authority [id number] [id number] Unknown [id number] Unknown 08/26/24 Unknown Unknown Active GS1 Patient Care team information Care Team Personnel Name: Celestina Trinidad MD Position: [facility] Physician - Primary Care Member Role: PCP Address: Address: [address] [place] [address] Name: Hemalatha Lucas RN Position: [facility] RN Member Role: Primary Care Nurse Name: Lauren Mack RN Position: [facility] AMB Nurse Member Role: Primary Care Nurse Name: Madelaine Ruiz RN Position: [facility] RN Member Role: Primary Care Nurse Name: Lora Santiago RN Position: [facility] SN RN Member Role: Primary Care Nurse Name: Mayco Ro RN Position: [facility] RN Member Role: Primary Care Nurse Name: Heydi Potts RN Position: [facility] RN Member Role: Primary Care Nurse Name: Janice Romano LPN Position: [facility] RN Member Role: Primary Care Nurse Name: Nadya Low RN Position: [facility] RN Member Role: Primary Care Nurse Name: Mirna Greenfield RN Position: [facility] RN Member Role: Primary Care Nurse Name: Nessa Bonilla RN Position: [facility] Hospital Dental Professional Member Role: Primary Care Nurse Care Team Related Persons Name: DINESH SARGENT Address: home [address] [place] [address] Name: BON DE Address: home [address] [place] [address]
--- OUTSIDE RECORDS SUMMARY | 2024-06-24 14:16 | XMS_ITS | Continuity of Care Document ---
Author Organization [facility] Address [address] [place] [address]- Care Team Providers Care Spike Maker Name Role Phone Celestina Trinidad MD Primary Care Physician Encounter [facility] Date(s): 10/08/23 - 11/07/23 [facility] [address] [place] [address]- Allergies, Adverse Reactions, Alerts No Known Allergies [...] 08/21/22 Given tetanus/diphtheria/pertussis, acel(Tdap) 7 08/13/12 Given [id number] 12y+ bivalent booster vax 06/14/22 Recorded SARS-CoV-2 mRNA (tsoefoe-dzkl-uqgnp) vax 02/14/22 Recorded SARS-CoV-2 (COVID-19) mRNA BNT-162b2 vac 05/06/21 Given SARS-CoV-2 (COVID-19) mRNA BNT-162b2 vac 11/04/20 Recorded SARS-CoV-2 (COVID-19) mRNA BNT-162b2 vac 10/14/20 Recorded pneumococcal 23-valent vaccine 8 04/07/19 Given 1Result Comment: screening negative 2Result Comment: [facility]# [id number] 3Result Comment: [05/25/2018] [facility] lot number [id number] exp 01/26/2019 [facility] [id number] 4Result Comment: [08/20/2017] [facility] [id number] 5Admin Note: VIM dated 01/29/12 GIVEN TODAY 6Result Comment: [facility]# [id number] 7Admin Note: VIM dated 08/22/11 GIVEN TODAY 8Result Comment: [facility]#[id number] Medications acetaminophen 500 mg oral capsule 2 [...] EDT, Route to Pharmacy Electronically, [facility]/pharmacy #2024, Partial fill upon patient request if the presc... Start Date: 05/17/23 Stop Date: 05/17/24 Status: Ordered diclofenac 1% topical gel See Instructions, APPLY TO AFFECTED AREA 4 TIMES A DAY, # 100 Gm, 1 Refills, Maintenance, 11/07/23 7:48:00 EDT, [facility]/pharmacy #2024, 25, APPLY TO AFFECTED AREA [...] Gm, 0 Refills, Maintenance, 02/28/21 16:31:00 EDT, [place], [facility]/pharmacy #2024, Partial fill upon patient request [...] EST, Route to Pharmacy Electronically, [facility]/pharmacy #2024, 157.5, cm, 07/13/23 9:57:00 EST, Height, 145.9, kg, 05/22/23 7:39:00 EDT, Dry Weight Start Date: 07/31/23 Status: Ordered gabapentin 300 mg oral capsule 600 mg, 2, capsule, By Mouth, 3 times a day, # 180 capsule, Refills 3, Tot. Refills 3, Maintenance,08/25/22 22:35:00 EST, [facility] Partial fill upon patient request [...] Refills, Maintenance, 10/12/23 6:42:00 EDT, [facility]/pharmacy #2024, 157.5, cm, 07/13/23 9:57:00 EST, Height, 145.9, kg, 05/22/23 7:39:00 EDT, Dry Weight Start Date: 10/12/23 Status: Ordered meclizine 25 mg oral tablet See Instructions, PRN Dizziness, 1 tablet By Mouth 3 times a day, # 30 tablet, 0 Refills, Maintenance, 02/27/23 10:43:00 EDT, [facility]/pharmacy #2024, Partial fill upon patient request if the prescriptionis for a schedule II opioid drug., 157, cm, ... Start Date: 02/27/23 Status: Ordered meloxicam 15 mg oral tablet See Instructions, TAKE 1 TABLET BY MOUTH DAILY WITH FOOD., # 30 tablet, 5 Refills, Maintenance, 10/08/23 17:05:00 EDT, [facility]/pharmacy #2024, 157.5, cm, 07/13/23 9:57:00 EST, Height, 145.9, kg, :39:00 EDT, Dry Weight Start Date: 10/08/23 Status: Ordered metFORMIN 500 mg oral tablet, extended release 1 tablet = 500 mg, By Mouth, Daily, # 90 tablet, 1 Refills, Maintenance, 10/24/23 11:39:00 EDT, ER Tablet, [facility]/pharmacy #2024, Partial fill upon patient request if the prescription is for a schedule II opioid drug., 157.5, cm, 10/18/23 15:15:00 EDT, H... Start Date: 10/24/23 Status: Ordered oxyCODONE 5 mg oral tablet 5 mg, 1, tablet, By Mouth, Every 4 hours, PRN, you may filll this prescription for fewer pills. Edawrd ochoa, # 20 tablet, Refills 0, Tot. [...] 1 Refills, Maintenance, 07/15/23 17:38:00 EST, [place], [facility]/pharmacy #2024, Partial fill upon patient request if the prescription is for a schedule II opioid drug., 157.5, cm, 07/13/23 9:57:00 EST, He... Start Date: 07/15/23 Status: Ordered zolpidem 10 mg oral tablet 1 tablet = 10 mg, By Mouth, Daily at bedtime, # 30 tablet, 0 Refills, Maintenance, 11/05/23 16:28:00 EDT, [facility]/pharmacy #2025, Partial fill upon patient request [...] Code MRI Safety Implantable Status Assigning Authority [id number] [id number] Unknown [id number] Unknown 08/26/24 Unknown Unknown Active GS1 Patient Care team information Care Team Personnel Name: Celestina Trinidad MD Position: S Physician - Primary Care Member Role: PCP Address: Address: [address] [place] [address] Name: Hemalatha Lucas RN Position: [facility] RN Member Role: Primary Care Nurse Name: Lauren Mack RN Position: [facility] AMB Nurse Member Role: Primary Care Nurse Name: Madelaine Ruiz RN Position: [facility] RN Member Role: Primary Care Nurse Name: Lora Santiago RN Position: [facility] SN RN Member Role: Primary Care Nurse Name: Mayco Ro RN Position: [facility] RN Member Role: Primary Care Nurse Name: Heydi Potts RN Position: [facility] SN RN Member Role: Primary Care Nurse Name: Janice Romano LPN Position: [facility] RN Member Role: Primary Care Nurse Name: Nadya Low RN Position: [facility] RN Member Role: Primary Care Nurse Name: Mirna Greenfield RN Position: [facility] RN Member Role: Primary Care Nurse Name: Nessa Bonilla RN Position: [facility] Log Chain Worker Member Role: Primary Care Nurse Care Team Related Persons Name: DINESH SARGENT Address: home [address] [place] [address] Name: BON DE Address: home [address] [place] [address]
--- OUTSIDE RECORDS SUMMARY | 2024-06-24 14:16 | XMS_ITS | Continuity of Care Document ---
Author Organization [facility] Address [address] [place] [address]- Care Team Providers Care Co Founder And President Name Role Phone Vivi HENNING, Celestina Givens Primary Care Physician Encounter [facility] Date(s): 01/15/23 - 02/14/23 [facility] [address] [place] [address]- Allergies, Adverse Reactions, Alerts No Known Allergies Immunizations Given and Recorded Vaccine Date Status Refusal Reason tetanus/diphtheria/pertussis, acel(Tdap) 1 08/21/22 Given tetanus/diphtheria/pertussis, acel(Tdap) 2 08/13/12 Given [id number] 12y+ bivalent booster vax 06/14/22 Recorded influenza [...] inactivated 6 07/31/12 Gi hali SARS-CoV-2 mRNA (cdgipnt-wecp-iupac) vax 02/14/22 Recorded SARS-CoV-2 (COVID-19) mRNA BNT-162b2 vac 05/06/21 Given SARS-CoV-2 (COVID-19) mRNA BNT-162b2 vac 11/04/20 Recorded SARS-CoV-2 (COVID-19) mRNA BNT-162b2 vac 10/14/20 Recorded pneumococcal 23-valent vaccine 7 04/07/19 Given 1Result Comment: [facility]# 12681-685-65 2Admin Note: VIM dated 08/22/11 GIVEN TODAY 3Result Comment: [facility]# 82078-618-97 4Result Comment: [05/25/2018] seq[employer] lot number [id number] exp 01/26/2019 [facility] 28314-395-04 5Result Comment: [08/20/2017] [facility] 18123-626-52 6Admin Note: VIM dated 01/29/12 GIVEN TODAY 7Result Comment: [facility]#5941-8889-54 Medications acetaminophen 500 mg oral capsule 2 [...] Stop, 04/10/2215:14:00 EDT, Route to Pharmacy Electronically, [id number], [facility]/pharmacy #2025, 158, cm, 04/10/22 14:56:00 EDT, Height, 143,... Start Date: 04/10/22 Status: Ordered amLODIPine 10 mg oral tablet 1 tablet, By Mouth, Daily, # 90 tablet, 0 Refills, Maintenance, 10/23/22 12:47:00 EDT, [facility], 157, cm, 09/13/22 15:58:00 EST, Height, 145, kg, 08/29/22 20:13:00 EST, Dry Weight Start Date: 10/23/22 Status: Ordered budesonide-formoterol 80 mcg-4.5 mcg/inh inhalation aerosol with adapter 2, puffs, Inhalation, 2 times a day, PRN, use with spacer chamber, rinse mouth and throat after use, j44.9, # 1 each, Refills 6, Tot. Refills 6, Maintenance, 12/08/22 12:55:00 EDT, Aerosol, Route to Pharmacy Electronically, [id number]... Start Date: 12/08/22 Status: Ordered cilostazol 50 mg oral tablet 1 tablet, By Mouth, Daily, # 90 tablet, 1 Refills, Maintenance, 02/08/23 7:54:00 EDT, [facility], 157, cm, 12/08/22 14:27:00 EDT, Height, 145, kg, 08/29/22 20:13:00 EST, Dry Weight Start Date: 02/08/23 Status: Ordered Compression Stockings See Instructions, # [...] 1 Refills, Maintenance, 01/08/23 9:36:00EDT, [facility], 50, APPLY TOPICALLY 4 TIMES A DAY, [...] Route to Pharmacy Electronically, [facility]/pharmacy #2025, Partial fill upon patient request if the p... Start Date: 08/31/22 Status: Ordered Flonase 50 mcg/inh nasal spray See Instructions, 2 sprays Nares twice daily x 1 week, then once daily x 1-2 weeks until symptoms improve, # 16 Gm, 0 Refills, Maintenance, 02/28/21 16:31:00 EDT, [place], [facility]/pharmacy #2025, Partial fill upon patient request if the prescription is for... Start Date: 02/28/21 Status: Ordered FLUoxetine 10 mg oral capsule 10 mg, 1, capsule, By Mouth, Daily, to be taken with 20mg capsules to equal 30mg daily, # 90 capsule, Refills 0, Tot. Refills 0, Maintenance, 01/18/23 9:13:00 EDT, Route to Pharmacy Electronically, [facility]/pharmacy #8915, Partial fill upon patient request... Start [...] Route to Pharmacy Electronically, [facility] 448[facility], 157, cm, 10/30/22 13:53:00 EDT, Height, 145, kg, 08/29/22 20:13:00 EST, Dry Weight Start Date: 11/29/22 Status: Ordered gabapentin 300 mg oral capsule 600 mg, 2, capsule, By Mouth, 3 times a day, # 180 capsule, Refills 3, Tot. Refills 3, Maintenance,08/25/22 22:35:00 EST, Route to Pharmacy Electronically, [facility]/pharmacy #2025, Partial fill upon patient [...] Maintenance, 07/03/22 14:41:00 EST, Tablet, [facility]/pharmacy #2025, Partial fill upon patient request if the prescription is for a schedule II opioid dr... Start Date: 07/03/22 Status: Ordered meclizine 25 mg oral tablet See Instructions, PRN Dizziness, 1 tablet By Mouth 3 times a day, # 30 tablet, 0 Refills, Maintenance, 05/11/21 13:11:00 EDT, [facility]/pharmacy #2025, Partial fill upon patient request if the prescriptionis for a schedule II opioid drug., 160.02, cm, 10/0... Start Date: 05/11/21 Status: Ordered meloxicam 15 mg oral tablet See Instructions, TAKE 1 TABLET BY MOUTH DAILY WITH FOOD. LABS NEEDED FOR FURTHER REFILLS, # 30 tablet, 3 Refills, Maintenance, 10/18/22 21:31:00 EDT, [facility]78[facility], 157, cm, 09/13/22 15:58:00 EST,Height, 145, kg, [...] days, # 30 tablet, 0 Refills, Acute 03/08/23 7:34:00 EDT, 02/06/23 7:34:00 EDT, Tablet Start Date: 02/06/23 Stop Date: 03/08/23 Status: Ordered Problem List Condition Confirmation Course [...] Primary Care Member Role: PCP Address: Address: [address] [place] [address] Name: Hemalatha Lucas RN Position: [facility] RN Member Role: Primary Care Nurse Name: Lauren Mack RN Position: [facility] AMB Nurse Member Role: Primary Care Nurse Name: Madelaine Ruiz RN Position: [facility] RN Member Role: Primary Care Nurse Name: Lora Santiago RN Position: [facility] RN [...] Nessa Bonilla RN Position: [facility] Office Administrative Assistant Member Role: Primary Care Nurse Care Team Related Persons Name: ROLA SARGENTELLE Address: home [address] [place] [address] Name: BON DE Address: home [address] [address]
--- OUTSIDE RECORDS SUMMARY | 2024-06-24 14:16 | XMS_ITS | Continuity of Care Document ---
Author Organization [facility] em Address Unknown Care Team Providers Care Coke Oven Patcher Name Role Phone Celestina Trinidad MD Primary Care Physician [place] [facility] [place] 05/04[place] 06/10/23 [facility] Attending Physician: Yasemin Diaz MD Admitting Physician: Yasemin Diaz MD Allergies, Adverse Reactions, Alerts No Known Allergies Immunizations Given and Recorded Vaccine Date Status Refusal Reason tetanus/diphtheria/pertussis, acel(Tdap) 1 08/21/22 Given tetanus/diphtheria/pertussis, acel(Tdap) 2 08/13/12 Given AXTP-WfS-3gQTL 12y+ bivalent booster vax 06/14/22 Recorded influenza [...] inactivated 6 07/31/12 Gi hali SARS-CoV-2 mRNA (pyqcqgx-vyda-mazqj) vax 02/14/22 Recorded SARS-CoV-2 (COVID-19) mRNA BNT-162b2 vac 05/06/21 Given SARS-CoV-2 (COVID-19) mRNA BNT-162b2 vac 11/04/20 Recorded SARS-CoV-2 (COVID-19) mRNA BNT-162b2 vac 10/14/20 Recorded pneumococcal 23-valent vaccine 7 04/07/19 Given 1Result Comment: [facility]# 17101-401-86 2Admin Note: VIM dated 08/22/11 GIVEN TODAY 3Result Comment: [facility]# 23192-618-72 4Result Comment: [05/25/2018] [employer] lot number [id number] exp 01/26/2019 [facility] 09770-153-67 5Result Comment: [08/20/2017] [facility] 34734-008-25 6Admin Note: VIM dated 01/29/12 GIVEN TODAY 7Result Comment: [facility]#[id number] Medications acetaminophen 500 mg oral capsule 2 [...] Stop, 04/10/2215:14:00 EDT, Route to Pharmacy Electronically, [id number], [facility]/pharmacy #2025, 158, cm, 04/10/22 [...] 1 Refills, Maintenance, 06/05/23 10:25:00 EST, [facility], 50, APPLY TOPICALLY 4 TIMES A DAY, 157.5, cm, 05/22/23 7:39:00 EDT, Height, 145.9, kg, 05/22/23 7:39:00 EDT, Dry Weight Start Date: 06/05/23 Status: Ordered Flonase 50 mcg/inh nasal spray See Instructions, 2 sprays Nares twice daily x 1 week, then once daily x 1-2 weeks until symptoms improve, # 16 Gm, 0 Refills, Maintenance, 02/28/21 16:31:00 EDT, [place], [facility], Partial fill upon patient request if the prescription is for... Start Date: 02/28/21 Status: Ordered FLUoxetine 10 mg oral capsule 10 mg, 1, capsule, By Mouth, Daily, to be taken with 20mg capsules to equal 30mg daily, # 90 capsule, Refills 1, Tot. Refills 1, Maintenance, 04/03/23 11:25:00 EDT, Route to Pharmacy Electronically, [facility]/pharmacy #2024, Partial fill upon patient reques... Start Date: 04/03/23 Status: Ordered FLUoxetine 20 mg oral capsule 1, capsule, By Mouth, Daily, # 90 capsule, Refills 1, Tot. Refills 1, Maintenance, 04/03/23 11:23:00 EDT, Route to Pharmacy Electronically, [facility]/pharmacy #2024, 157, cm, 03/14/23 11:02:00 EDT, Height,145, kg, 08/29/22 20:13:00 EST, Dry Weight Start Date: 04/03/23 Status: Ordered gabapentin 300 mg oral capsule 600 mg, 2, capsule, By Mouth, 3 times a day, # 180 capsule, Refills 3, Tot. Refills 3, Maintenance,08/25/22 22:35:00 EST, Route to Pharmacy Electronically, [facility]/pharmacy #2024, Partial fill upon [...] tablet, 2 Refills, Maintenance, 02/27/23 7:25:00 EDT, [facility] STORE 56435, 157, cm, 12/08/22 14:27:00 EDT, Height, 145, [...] may filll this prescription for fewer pills. [facility] # [facility] tablet, Refills 0, [...] 16:30:00 EST, Aerosol, Route to Pharmacy Electronically, [id number], [facility]/pharmacy #2025, 157.5, cm, 05/22/23 7:39:00 EDT, Height... Start Date: 06/07/23 Status: Ordered traMADol 50 mg oral tablet See Instructions, 2 tab po qam and one tab po q pm prn moderate to severe pain. 28 days. mass pat ok, # 81 tablet, 0 Refills, Maintenance, 05/14/23 16:14:00 EDT, [facility] 157, cm, 03/14/2311:02:00 EDT, Height, 145, [...] Code MRI Safety Implantable Status Assigning Authority [id number] [id number] Unknown [id number] Unknown 08/26/24 Unknown Unknown Active GS1 Patient Care team information Care Team Personnel Name: Celestina Trinidad MD Position: [facility] Physician - Primary Care Member Role: PCP Address: Address: [address] [place] [address] Name: Hemalatha Lucas RN Position: [facility] RN Member Role: Primary Care Nurse Name: Lauren Mack RN Position: [facility] AMB Nurse Member Role: Primary Care Nurse Name: Madelaine Ruiz RN Position: [facility] RN Member Role: Primary Care Nurse Name: Lora Santiago RN Position: [facility] SN RN Member Role: Primary Care Nurse Name: Mayco Ro RN Position: [facility] RN Member Role: Primary Care Nurse Name: Heydi Potts RN Position: [facility] RN Member Role: Primary Care Nurse Name: Janice Romano LPN Position: [facility] RN Member Role: Primary Care Nurse Name: Nadya Low RN Position: [facility] RN Member Role: Primary Care Nurse Name: Mirna Greenfield RN Position: [facility] RN Member Role: Primary Care Nurse Name: Nessa Bonilla RN Position: [facility] Snowmaker Member Role: Primary Care Nurse Care Team Related Persons Name: ROLA SARGENTELLE Address: home [address] [place] [address] Name: BON DE Address: [address] [address]
--- OUTSIDE RECORDS SUMMARY | 2024-06-24 14:16 | XMS_ITS | Continuity of Care Document ---
Author Organization [facility] Address [address] [place] [address]- Care Team Providers Care Ore Digger Name Role Phone Vivi HENNING, Celestina Givens Primary Care Physician [place] [facility] Date(s): 09/11/23 - 10/11/23 [facility] [address] [place] [address]- Allergies, Adverse Reactions, Alerts No Known Allergies [...] 08/21/22 Given tetanus/diphtheria/pertussis, acel(Tdap) 7 08/13/12 Given GIUF-PdR-4iWCR 12y+ bivalent booster vax 06/14/22 Recorded SARS-CoV-2 mRNA (vxesibz-zcfk-rlbpv) vax 02/14/22 Recorded SARS-CoV-2 (COVID-19) mRNA BNT-162b2 vac 05/06/21 Given SARS-CoV-2 (COVID-19) mRNA BNT-162b2 vac 11/04/20 Recorded SARS-CoV-2 (COVID-19) mRNA BNT-162b2 vac 10/14/20 Recorded pneumococcal 23-valent vaccine 8 04/07/19 Given 1Result Comment: screening negative 2Result Comment: [facility]# 11859-302-17 3Result Comment: [05/25/2018] [employer] lot number [id number] exp 01/26/2019 [facility] 97818-596-37 4Result Comment: [08/20/2017] [facility] 63929-194-22 5Admin Note: VIM dated 01/29/12 GIVEN TODAY 6Result Comment: [facility]# 03741-208-90 7Admin Note: VIM dated 08/22/11 GIVEN TODAY 8Result Comment: [facility]#9988-8775-85 Medications acetaminophen 500 mg oral capsule 2 [...] 05/17/23 16:45:00 EDT, Route to Pharmacy Electronically, [facility]/pharmacy #2024, Partial fill upon patient request if the presc... Start Date: 05/17/23 Stop Date: 05/17/24 Status: Ordered diclofenac 1% topical gel See Instructions, APPLY TO AFFECTED AREA 4 TIMES A DAY, # 100 Gm, 1 Refills, Maintenance, 09/02/23 8:08:00 EST, [facility], 25, APPLY TO AFFECTED AREA 4 TIMES [...] Gm, 0 Refills, Maintenance, 02/28/21 16:31:00 EDT, [place], [facility], Partial fill upon patient request [...] 07/31/23 19:01:00 EST, Route to Pharmacy Electronically, [facility]/pharmacy #2024, 157.5, cm, 07/13/23 9:57:00 [...] tablet, 2 Refills, Maintenance, 02/27/23 7:25:00 EDT, [facility] STORE 39244, 157, cm, 12/08/22 14:27:00 EDT, Height, 145, kg, 08/29/22 20:13:00 EST, Dry... Start Date: 02/27/23 Status: Ordered levothyroxine 150 mcg (0.15 mg) oral tablet 1 tablet = 150 mcg, By Mouth, Daily, # 90 tablet, 0 Refills, Maintenance, 07/15/23 17:38:00 EST, Tablet, [facility]/pharmacy [...] tablet, 0 Refills, Maintenance, 10/08/23 17:51:00 EDT, [facility]/pharmacy #2024, [...] Code MRI Safety Implantable Status Assigning Authority [id number] [id number] Unknown [id number] Unknown 08/26/24 Unknown Unknown Active GS1 Patient Care team information Care Team Personnel Name: Celestina Trinidad MD Position: [facility] Physician - Primary Care Member Role: PCP Address: Address: [address] [place] [address]- Name: Hemalatha Lucas RN [facility] Potts RN Position: [facility] SN RN Member Role: Primary Care Nurse Name: Janice Romano LPN Position: [facility] RN Member Role: Primary Care Nurse Name: Nadya Low RN Position: [facility] RN Member Role: Primary Care Nurse Name: Mirna Greenfield RN Position: [facility] RN Member Role: Primary Care Nurse Name: Nessa Bonilla RN Position: [facility] Round Up Ring Hand Member Role: Primary Care Nurse Care Team Related Persons Name: DINESH SARGENT Address: home [address] [address] Name: BON DE Address: home [address] [place] [address]
--- OUTSIDE RECORDS SUMMARY | 2024-06-24 14:16 | XMS_ITS | Continuity of Care Document ---
Author Organization [facility] Address [address] [place] [address]- Care Team Providers Care Child Day Care Center Worker Name Role Phone Vivi HENNING, Celestina Givens Primary Care Physician Encounter [facility] Date(s): 07/15/23 - 08/14/23 [facility] [address] [place], [place] [address] Allergies, Adverse [...] 08/21/22 Given tetanus/diphtheria/pertussis, acel(Tdap) 7 08/13/12 Given VFXD-IfB-1zEOJ 12y+ bivalent booster vax 06/14/22 Recorded SARS-CoV-2 mRNA (okfwfhg-ewgz-fdvzk) vax 02/14/22 Recorded SARS-CoV-2 (COVID-19) mRNA BNT-162b2 vac 05/06/21 Given SARS-CoV-2 (COVID-19) mRNA BNT-162b2 vac 11/04/20 Recorded SARS-CoV-2 (COVID-19) mRNA BNT-162b2 vac 10/14/20 Recorded pneumococcal 23-valent vaccine 8 04/07/19 Given 1Result Comment: screening negative 2Result Comment: [facility]# 58322-938-88 3Result Comment: [05/25/2018] [employer] lot number [id number] exp 01/26/2019 [facility] 71243-139-50 4Result Comment: [08/20/2017] [facility] 84321-509-56 5Admin Note: VIM dated 01/29/12 GIVEN TODAY 6Result Comment: [facility]# 54832-581-82 7Admin Note: VIM dated 08/22/11 GIVEN TODAY 8Result Comment: [facility]#4092-0559-95 Medications acetaminophen 500 mg oral capsule 2 [...] Gm, 0 Refills, Maintenance, 02/28/21 16:31:00 EDT, [place], Partial fill upon patient request [...] 22:35:00 EST, Route to Pharmacy Electronically, [facility] [...] tablet, 2 Refills, Maintenance, 02/27/23 7:25:00 EDT, [facility] STORE 39532, 157, cm, 12/08/22 14:27:00 EDT, Height, 145, kg, 08/29/22 20:13:00 EST, Dry... Start Date: 02/27/23 Status: Ordered levothyroxine 150 mcg (0.15 mg) oral tablet 1 tablet = 150 mcg, By Mouth, Daily, # 90 tablet, 0 Refills, Maintenance, 07/15/23 17:38:00 EST, Tablet, [facility]/pharmacy #2024, Partial fill upon [...] Refills, Maintenance, 07/28/23 10:21:00 EST, [facility], 157.5, cm, 07/13/23 9:57:00 EST, Height, 145.9, [...] tablet, 0 Refills, Maintenance, 08/05/23 12:22:00 EST, [facility]/pharmacy #5, 157.5, cm, 07/13/23 9:57:00 EST, [...] Code MRI Safety Implantable Status Assigning Authority [id number] [id number] Unknown [id number] Unknown 08/26/24 Unknown Unknown Active GS1 Patient Care team information Care Team Personnel Name: Celestina Trinidad MD Position: [facility] Physician - Primary Care Member Role: PCP Address: Address: [address] [place] [address]- Name: Hemalatha Lucas RN Position: [facility] RN Member Role: Primary Care Nurse Name: Lauren Mack RN Position: [facility] AMB Nurse Member Role: Primary Care Nurse Name: Madelaine Ruiz RN Position: [facility] RN Member Role: Primary Care Nurse Name: Lora Santiago RN Position: [facility] SN RN Member Role: Primary Care Nurse Name: Mayco Ro RN Position: [facility] RN Member Role: Primary Care Nurse Name: Heydi Potts RN Position: [facility] SN RN Member Role: Primary Care Nurse Name: Janice Romano LPN Position: [facility] RN Member Role: Primary Care Nurse Name: Nadya Low RN Position: [facility] RN Member Role: Primary Care Nurse Name: Mirna Greenfield RN Position: [facility] RN Member Role: Primary Care Nurse Name: Nessa Bonilla RN Position: [facility] Public Administration Professor Member Role: Primary Care Nurse Care Team Related Persons Name: DINESH SARGENT Address: home [address] [place] [address] Name: BON DE Address: home [address] [address]
--- OUTSIDE RECORDS SUMMARY | 2024-06-24 14:16 | XMS_ITS | Continuity of Care Document ---
Author Organization [facility] em Address Unknown Care Team Providers Care Haulage Boss Name Role Phone Celestina Trinidad MD Primary Care Physician Encounter [facility] Date(s): 06/11/23 - 07/12/23 [facility] Attending Physician: Liliana Allison Admitting Physician: Liliana Allison Allergies, Adverse Reactions, Alerts No Known Allergies Immunizations Given and Recorded Vaccine Date Status Refusal Reason tetanus/diphtheria/pertussis, acel(Tdap) 1 08/21/22 Given tetanus/diphtheria/pertussis, acel(Tdap) 2 08/13/12 Given [id number] 12y+ bivalent booster vax 06/14/22 Recorded influenza [...] inactivated 6 07/31/12 Gi hali SARS-CoV-2 mRNA (tlgvnjp-ncra-hazer) vax 02/14/22 Recorded SARS-CoV-2 (COVID-19) mRNA BNT-162b2 vac 05/06/21 Given SARS-CoV-2 (COVID-19) mRNA BNT-162b2 vac 11/04/20 Recorded SARS-CoV-2 (COVID-19) mRNA BNT-162b2 vac 10/14/20 Recorded pneumococcal 23-valent vaccine 7 04/07/19 Given 1Result Comment: [facility]# [id number] 2Admin Note: VIM dated 08/22/11 GIVEN TODAY 3Result Comment: [facility]# [id number] 4Result Comment: [05/25/2018] [facility] lot number [id number] 01/26/2019 [facility] [id number] 5Result Comment: [08/20/2017] [facility] [id number] 6Admin Note: VIM dated 01/29/12 GIVEN TODAY 7Result Comment: [facility]#[id number] Medications acetaminophen 500 mg oral capsule 2 [...] 05/17/23 16:45:00 EDT, Route to Pharmacy Electronically, [facility]/pharmacy #2025, Partial fill upon patient request if the presc... Start Date: 05/17/23 Stop Date: 05/17/24 Status: Ordered diclofenac 1% topical gel See Instructions, APPLY TOPICALLY 4 TIMES A DAY, # 100 Gm, 1 Refills, Maintenance, 06/05/23 10:25:00 EST, [facility]/pharmacy #2024, 50, APPLY TOPICALLY 4 TIMES A DAY, 157.5, cm, 05/22/23 7:39:00 EDT, Height, 145.9, kg, 05/22/23 7:39:00 EDT, Dry Weight Start Date: 06/05/23 Status: Ordered Flonase 50 mcg/inh nasal spray See Instructions, 2 sprays Nares twice daily x 1 week, then once daily x 1-2 weeks until symptoms improve, # 16 Gm, 0 Refills, Maintenance, 02/28/21 16:31:00 EDT, [place], [facility]/pharmacy #2025, Partial fill upon patient request if the prescription is for... Start Date: 02/28/21 Status: Ordered FLUoxetine 10 mg oral capsule 10 mg, 1, capsule, By Mouth, Daily, to be taken with 20mg capsules to equal 30mg daily, # 90 capsule, Refills 1, Tot. Refills 1, Maintenance, 04/03/23 11:25:00 EDT, Route to Pharmacy Electronically, [facility]/pharmacy #2025, Partial fill upon patient reques... Start Date: 04/03/23 Status: Ordered FLUoxetine 20 mg oral capsule 1, capsule, By Mouth, Daily, # 90 capsule, Refills 1, Tot. Refills 1, Maintenance, 04/03/23 11:23:00 EDT, Route to Pharmacy Electronically, [facility]/pharmacy #2025, 157, cm, 03/14/23 11:02:00 EDT, Height,145, kg, 08/29/22 20:13:00 EST, Dry Weight Start Date: 04/03/23 Status: Ordered gabapentin 300 mg oral capsule 600 mg, 2, capsule, By Mouth, 3 times a day, # 180 capsule, Refills 3, Tot. Refills 3, Maintenance,08/25/22 22:35:00 EST, Route to Pharmacy Electronically, [facility]/pharmacy #202, Partial fill upon [...] tablet, 2 Refills, Maintenance, 02/27/23 7:25:00 EDT, [facility] STORE [id number], 157, cm, 12/08/22 14:27:00 EDT, Height, 145, kg, 08/29/22 20:13:00 EST, Dry... Start Date: 02/27/23 Status: Ordered meclizine 25 mg oral tablet See Instructions, PRN Dizziness, 1 tablet By Mouth 3 times a day, # 30 tablet, 0 Refills, Maintenance, 02/27/23 10:43:00 EDT, [facility]/pharmacy #202, Partial fill upon patient request if the prescriptionis for a schedule II opioid drug., 157, cm, ... Start Date: 02/27/23 Status: Ordered meloxicam 15 mg oral tablet See Instructions, TAKE 1 TABLET BY MOUTH DAILY WITH FOOD. LABS NEEDED FOR FURTHER REFILLS, # 30 tablet, 1 Refills, Maintenance, 05/01/23 14:45:00 EDT, [facility]/pharmacy #2025, 157, cm, 03/14/23 11:02:00 EDT, [...] 05/22/23 9:10:00 EDT, Route to Pharmacy Electronically, [facility]/pharmacy... Start Date: 05/22/23 Status: Ordered Splint [...] tablet, 0 Refills, Maintenance, 07/02/23 16:52:00 EST, [facility]/pharmacy #2024, 157.5, cm, 06/26/23 10:22:00 EST, Height, 145.9, kg, 05/22/23 7:39:0... Start Date: 07/02/23 Status: Ordered zolpidem 10 mg oral tablet 1 tablet = 10 mg, By Mouth, Daily at bedtime, # 30 tablet, 0 Refills, Maintenance, 07/10/23 11:57:00 EST, [facility]/pharmacy #2024, Partial fill upon [...] Code MRI Safety Implantable Status Assigning Authority [id number] Unknown [id number] Unknown 08/26/24 Unknown Unknown Active GS1 Patient Care team information Care Team Personnel Name: Celestina Trinidad MD Position: [facility] Physician - Primary Care Member Role: PCP Address: Address: [address] [place] [address] Name: Hemalatha Lucas RN Position: [facility] RN Member Role: Primary Care Nurse Name: Lauren Mack RN Position: [facility] Nurse Member Role: Primary Care Nurse Name: Madelaine Ruiz RN Position: [facility] RN Member Role: Primary Care Nurse Name: Lora Santiago RN Position: [facility] SN RN Member Role: Primary Care Nurse Name: Mayco Ro RN Position: [facility] RN Member Role: Primary Care Nurse Name: Heydi Potts RN Position: [facility] SN RN Member Role: Primary Care Nurse Name: Janice Romano LPN Position: [facility] RN Member Role: Primary Care Nurse Name: Nadya Low RN Position: [facility] RN Member Role: Primary Care Nurse Name: Mirna Greenfield RN Position: [facility] RN Member Role: Primary Care Nurse Name: Nessa Bonilla RN Position: [facility] Hospital Aviation Electronic Warfare Operator Member Role: Primary Care Nurse Care Team Related Persons Name: DINESH SARGENT Address: home [address] [place] [address] Name: BON DE Address: home [address] [place] [address]
--- OUTSIDE RECORDS SUMMARY | 2024-06-24 14:16 | XMS_ITS | Continuity of Care Document ---
Author Organization [facility] Address [address] [place] [address]- Care Team Providers Care Corporate Webmaster Name Role Phone Celestina Trinidad MD Primary Care Physician Encounter [facility] Date(s): 10/08/23 - 11/07/23 [facility] [address] [place] [address]- Allergies, Adverse Reactions, Alerts No Known Allergies [...] 08/21/22 Given tetanus/diphtheria/pertussis, acel(Tdap) 7 08/13/12 Given [id number]-[id number] 12y+ bivalent booster vax 06/14/22 Recorded SARS-CoV-2 mRNA (ugomgsn-xleh-kdetk) vax 02/14/22 Recorded SARS-CoV-2 (COVID-19) mRNA BNT-162b2 vac 05/06/21 Given SARS-CoV-2 (COVID-19) mRNA BNT-162b2 vac 11/04/20 Recorded SARS-CoV-2 (COVID-19) mRNA BNT-162b2 vac 10/14/20 Recorded pneumococcal 23-valent vaccine 8 04/07/19 Given 1Result Comment: screening negative 2Result Comment: [facility]# [id number] 3Result Comment: [05/25/2018] [facility] lot number [id number] exp 01/26/2019 [facility] [id number] 4Result Comment: [08/20/2017] [facility] [id number] 5Admin Note: VIM dated 01/29/12 GIVEN TODAY 6Result Comment: [facility]# [id number] 7Admin Note: VIM dated 08/22/11 GIVEN TODAY 8Result Comment: [facility]#[id number] Medications acetaminophen 500 mg oral capsule 2 [...] 16:45:00 EDT, Route to Pharmacy Electronically, [facility]/pharmacy #2024, Partial fill upon patient request if the presc... Start Date: 05/17/23 Stop Date: 05/17/24 Status: Ordered diclofenac 1% topical gel See Instructions, APPLY TO AFFECTED AREA 4 TIMES A DAY, # 100 Gm, 1 Refills, Maintenance, 11/07/23 7:48:00 EDT, [facility]/pharmacy #2024, 25, APPLY TO AFFECTED AREA [...] Gm, 0 Refills, Maintenance, 02/28/21 16:31:00 EDT, [place], [facility], Partial fill upon patient request [...] 07/31/23 19:01:00 EST, Route to Pharmacy Electronically, [facility]/pharmacy #2024, 157.5, cm, 07/13/23 9:57:00 EST, Height, 145.9, kg, 05/22/23 7:39:00 EDT, Dry Weight Start Date: 07/31/23 Status: Ordered gabapentin 300 mg oral capsule 600 mg, 2, capsule, By Mouth, 3 times a day, # 180 capsule, Refills 3, Tot. Refills 3, Maintenance,08/25/22 22:35:00 EST, [facility] fill upon patient request [...] 0 Refills, Maintenance, 10/12/23 6:42:00 EDT, [facility]/pharmacy #2024, 157.5, cm, 07/13/23 9:57:00 EST, Height, 145.9, kg, 05/22/23 7:39:00 EDT, Dry Weight Start Date: 10/12/23 Status: Ordered meclizine 25 mg oral tablet See Instructions, PRN Dizziness, 1 tablet By Mouth 3 times a day, # 30 tablet, 0 Refills, Maintenance, 02/27/23 10:43:00 EDT, [facility]/pharmacy #2024, Partial fill upon patient request if the prescriptionis for a schedule II opioid drug., 157, cm, ... Start Date: 02/27/23 Status: Ordered meloxicam 15 mg oral tablet See Instructions, TAKE 1 TABLET BY MOUTH DAILY WITH FOOD., # 30 tablet, 5 Refills, Maintenance, 10/08/23 17:05:00 EDT, [facility]/pharmacy #2024, 157.5, cm, 07/13/23 9:57:00 EST, Height, 145.9, kg, :39:00 EDT, Dry Weight Start Date: 10/08/23 Status: Ordered metFORMIN 500 mg oral tablet, extended release 1 tablet = 500 mg, By Mouth, Daily, # 90 tablet, 1 Refills, Maintenance, 10/24/23 11:39:00 EDT, ER Tablet, [facility]/pharmacy #2024, Partial fill upon patient request [...] 1 Refills, Maintenance, 07/15/23 17:38:00 EST, Capsule, [facility]/pharmacy #2024, Partial fill upon patient request if the prescription is for a schedule II opioid drug., 157.5, cm, 07/13/23 9:57:00 EST, He... Start Date: 07/15/23 Status: Ordered zolpidem 10 mg oral tablet 1 tablet = 10 mg, By Mouth, Daily at bedtime, # 30 tablet, 0 Refills, Maintenance, 11/05/23 16:28:00 EDT, [facility]/pharmacy #2025, Partial fill upon patient request [...] Code MRI Safety Implantable Status Assigning Authority [id number] [id number] Unknown [id number] Unknown 08/26/24 Unknown Unknown Active GS1 Patient Care team information Care Team Personnel Name: Celestina Trinidad MD Position: S Physician - Primary Care Member Role: PCP Address: Address: [address] [place] [address] Name: Hemalatha Lucas RN Position: [facility] [...] Care Nurse Name: Nessa Bonilla RN Position: [facility] Lyric Writer Member Role: Primary Care Nurse Care Team Related Persons Name: DINESH SARGENT Address: home [address] [place] [address] Name: BON DE Address: home [address] [place] [address]
--- OUTSIDE RECORDS SUMMARY | 2024-06-24 14:16 | XMS_ITS | Continuity of Care Document ---
Author Organization [facility] Address [address] [place] [address]- Care Team Providers Care Promotion Specialist Name Role Phone Yolanda AHN, Padmaja Heard Primary Care Physician Encounter [facility] Date(s): 04/14/22 - 05/14/22 [facility] [address] [place] [address]- Allergies, Adverse Reactions, Alerts No Known Allergies [...] tetanus/diphtheria/pertussis, acel(Tdap) 6 08/13/12 Given 1Result Comment: [facility]# [id number] 2Result Comment: [05/25/2018] [facility] lot number [id number] exp 01/26/2019 [facility] [id number] 3Result Comment: [08/20/2017] [facility] [id number] 4Admin Note: VIM dated 01/29/12 GIVEN TODAY 5Result Comment: [facility]#[id number] 6Admin Note: VIM dated 08/22/11 GIVEN TODAY [...] Stop, 04/10/2215:14:00 EDT, Route to Pharmacy Electronically, [id number], [facility]/pharmacy #2025, 158, cm, 04/10/22 14:56:00 EDT, Height, 143,... Start Date: 04/10/22 Status: Ordered Anoro Ellipta 62.5 mcg-25 mcg/inh inhalation powder 1 puffs, By Mouth, Daily, # 1 each, 6 Refills, Maintenance, 05/11/22 13:00:00 EDT, Powder, [facility], Partial fill upon patient [...] 100 Gm, 1 Refills, 09/19/21 12:51:00 EST, [facility]/pharmacy #2024, 25, APPLY TOPICALLY 4 TIMES A DAY, 160.02, cm, 07/25/21 16:20:00 EST, Height, 143, kg,01/04/21 10:42:00 EDT, Dry Weight Start Date: 09/19/21 Status: Ordered Flonase 50 mcg/inh nasal spray See Instructions, 2 sprays Nares twice daily x 1 week, then once daily x 1-2 weeks until symptoms improve, # 16 Gm, 0 Refills, Maintenance, 02/28/21 16:31:00 EDT, [place], [facility]/pharmacy #2024, Partial fill upon patient request if the prescription is for... Start Date: 02/28/21 Status: Ordered FLUoxetine 10 mg oral capsule 10 mg, 1, capsule, By Mouth, Daily, Take with 20mg capsule for total of 30mg daily, # 90 capsule, Refills 1, Tot. Refills 1, Maintenance, 04/11/22 14:55:00 EDT, Route to Pharmacy Electronically, [facility], Partial fill upon patient request if t... Start Date: 04/11/22 Status: Ordered levothyroxine 0.137 mg oral tablet See Instructions, TAKE 1 TABLET BY MOUTH ON DAYS 1-6, THEN TAKE 2 TABLETS BY MOUTH ON DAY 7, # 96 tablet, 1 Refills, [facility] STORE 18656, 160.02, cm, 10/04/21 10:38:00 EST, Height, 143, [...] 0 Refills, Maintenance, 05/11/21 13:11:00 EDT, [facility]/pharmacy #2024, Partial fill upon patient request if the prescriptionis for a schedule II opioid drug., 160.02, cm, 100... Start Date: 05/11/21 Status: Ordered meloxicam 15 mg oral tablet See Instructions, TAKE 1 TABLET BY MOUTH DAILY WITH FOOD, # 30 tablet, 0 Refills, Maintenance, 05/11/22 18:51:00 EDT, [facility], Labs needed for further refills., [...] tablet, 0 Refills, Maintenance, 05/11/22 18:51:00 EDT, [facility], 158, cm, 05/08/22 11:49:00 EDT, Height, 143, kg, 01/04/21 10:42:00 EDT, Dry Weight Start Date: 05/11/22 Status: Ordered zolpidem 10 mg oral tablet 1 tablet = 10 mg, By Mouth, Daily at bedtime, PRN for sleep, for 30 days, masspat check may fill less, # 30 tablet, 2 Refills, Acute 07/19/22 9:22:00 EST, 04/20/22 9:22:00 EDT, Tablet, [facility], 158, cm, 04/10/22 14:56:00 EDT, [...] Name: Yolanda AHN, Padmaja Heard Address: Address: [address] [place] [address] [place], [place] [address]
--- OUTSIDE RECORDS SUMMARY | 2024-06-24 14:16 | XMS_ITS | Continuity of Care Document ---
Author Organization [facility] Address [address] [place] [address]- Care Team Providers Care Automatic Shirring Machine Operator Name Role Phone Florentino AHN, Elder Hannah Primary Care Physician [phone] Encounter [facility] Date(s): 09/02/20 - 10/02/20 [facility] [address] [place] [address]- Allergies, Adverse Reactions, Alerts Substance Reaction Severity [...] tetanus/diphtheria/pertussis, acel(Tdap) 6 08/13/12 Given 1Result Comment: [facility]# [id number] 2Result Comment: [05/25/2018] [facility] lot number [id number] exp 01/26/2019 [facility] [id number] 3Result Comment: [08/20/2017] [facility] [id number] 4Admin Note: VIM dated 01/29/12 GIVEN TODAY 5Result Comment: [facility]#[id number] 6Admin Note: VIM dated 08/22/11 GIVEN TODAY [...] 6 HOURS NEEDED FOR WHEEZE, [facility]/pharmacy #2024 Start Date: 05/27/19 Status: Ordered diclofenac 1% topical gel See Instructions, APPLY TOPICALLY 4 TIMES A DAY, # 100 Gm, 0 Refills, Maintenance, [facility],25, APPLY TOPICALLY 4 TIMES A DAY, 161, cm, 06/08/20 13:48:00 EST, Height Start Date: 07/12/20 Status: Ordered FLUoxetine 20 mg oral capsule 20 mg, 1, capsule, By Mouth, Daily, # 30 capsule, Refills 5, Tot. Refills 5, Maintenance, 05/13/20 9:34:00 EDT, Route to Pharmacy Electronically, [facility]/pharmacy #2024, replacing 10mg dose, 161, cm, 05/13/20 8:28:00 EDT, Height Start Date: 05/13/20 Status: Ordered levothyroxine 0.137 mg oral tablet See Instructions, Take 1 tablet by mouth on days 1-6, then take 2 tablets by mouth on day 7, # 121 tablet, 1 Refills, Maintenance, 08/31/20 7:32:00 EST, [facility]/pharmacy #2024, 161, cm, 08/18/20 15:29:00EST, Height Start Date: 08/31/20 Status: Ordered meloxicam 15 mg oral tablet 1 tablet, By Mouth, Daily, WITH FOOD., # 30 tablet, 1 Refills, Maintenance, 08/30/20 7:37:00 EST, [facility] STORE 72572, 161, cm, 08/18/20 15:29:00 EST, Height Start [...] to Pharmacy Electronically, [facility]/pharmacy #5, 161, cm, 08/04/19 14:44:00 EST, Height Start Date: 08/04/19 Stop Date: 08/18/19 Status: Ordered traMADol 50 mg oral tablet 2 tablet = 100 mg, By Mouth, Every 12 hours, for 30 days, as needed for pain masspat checked, # 120tablet, 2 Refills, Hard Stop 11/15/20 16:20:00 EDT, 08/17/20 16:20:00 EST, [facility]/pharmacy #5, 161,cm, 06/08/20 13:48:00 EST, Height Start Date: 08/17/20 Stop Date: 11/15/20 Status: Ordered traMADol 50 mg oral tablet 2 tablet = 100 mg, By Mouth, Every 12 hours, as needed for pain masspat checked, # 120 tablet, 2 Refills, Maintenance, 09/13/20 16:54:00 EST, [facility]/pharmacy #5, 161, cm, 08/18/20 15:29:00 EST, Height Start Date: 09/13/20 Stop Date: 12/12/20 Status: Ordered zolpidem 10 mg oral tablet 1 tablet = 10 mg, By Mouth, Daily at bedtime, PRN for sleep, for 30 days, masspat check may fill less, # 30 tablet, 3 Refills, Acute 01/14/21 9:22:00 EDT, 09/16/20 9:22:00 EST, Tablet, [facility]/pharmacy #5, 161, cm, 08/18/20 15:29:00 EST, Height Start Date: 09/16/20 Stop Date: 01/14/21 Status: Ordered zolpidem 10 mg oral tablet 1 tablet = 10 mg, By Mouth, Daily at bedtime, PRN for sleep, for 30 days, masspat check may fill less, # 30 tablet, 3 Refills, Acute 01/08/21 9:34:00 EDT, 09/10/20 9:34:00 EST, Tablet, [facility]/pharmacy #5, 161, cm, 08/18/20 15:29:00 EST, Height [...]
--- OUTSIDE RECORDS SUMMARY | 2024-06-24 14:16 | XMS_ITS | Continuity of Care Document ---
Author Organization [facility] Address [address] [place] [address]- Care Team Providers Care Service Developer Name Role Phone Vivi HENNING, Celestina Givens Primary Care Physician Encounter [facility] Date(s): 11/29/23 - 12/29/23 [facility] [address] [place] [address]- Allergies, Adverse Reactions, Alerts No Known Allergies [...] 08/21/22 Given tetanus/diphtheria/pertussis, acel(Tdap) 7 08/13/12 Given [id number] 12y+ bivalent booster vax 06/14/22 Recorded SARS-CoV-2 mRNA (gakzlhq-tyju-dwpkj) vax 02/14/22 Recorded SARS-CoV-2 (COVID-19) mRNA BNT-162b2 vac 05/06/21 Given SARS-CoV-2 (COVID-19) mRNA BNT-162b2 vac 11/04/20 Recorded SARS-CoV-2 (COVID-19) mRNA BNT-162b2 vac 10/14/20 Recorded pneumococcal 23-valent vaccine 8 04/07/19 Given 1Result Comment: screening negative 2Result Comment: [facility]# [id number] 3Result Comment: [05/25/2018] [facility] lot number [id number] exp 01/26/2019 [facility] [id number] 4Result Comment: [08/20/2017] [facility] [id number] 5Admin Note: VIM dated 01/29/12 GIVEN TODAY 6Result Comment: [facility]# [id number] 7Admin Note: VIM dated 08/22/11 GIVEN TODAY 8Result Comment: [facility]#[id number] Medications acetaminophen 500 mg oral capsule 2 [...] 16:45:00 EDT, [facility], [facility] [...] Gm, 0 Refills, Maintenance, 02/28/21 16:31:00 EDT, [place], [facility]/pharmacy #2024, Partial fill upon patient request if the prescription is for... Start Date: 02/28/21 Status: Ordered FLUoxetine 10 mg oral capsule 10 mg, 1, capsule, By Mouth, Daily, to be taken with 20mg capsules to equal 30mg daily, # 90 capsule, Refills 1, Tot. Refills 1, Maintenance, 07/31/23 19:01:00 EST, Route to Pharmacy Electronically, [facility]/pharmacy #2024, Partial fill upon patient reques... Start Date: 07/31/23 Status: Ordered FLUoxetine 20 mg oral capsule 1, capsule, By Mouth, Daily, # 90 capsule, Refills 1, Tot. Refills 1, Maintenance, 07/31/23 19:01:00 EST, Route to Pharmacy Electronically, [facility]/pharmacy #2024, 157.5, cm, 07/13/23 9:57:00 [...] tablet, 1 Refills, Maintenance, 12/28/23 16:17:00 EDT, [facility] STORE 08353, 157.5, cm, 10/18/23 15:15:00 EDT, Height, 145.9, [...] 1 Refills, Maintenance, 11/23/23 17:40:00 EDT,Capsule, [facility], Partial fill upon patient request [...] Code MRI Safety Implantable Status Assigning Authority [id number] [id number] Unknown [id number] Unknown 08/26/24 Unknown Unknown Active GS1 Patient Care team information Care Team Personnel Name: Celestina Trinidad MD Position: [facility] Physician - Primary Care Member Role: PCP Address: Address: [address] [place] [address] Name: Hemalatha Lucas RN Position: [facility] RN Member Role: Primary Care Nurse Name: Lauren Mack RN Position: [facility] AMB Nurse Member Role: Primary Care Nurse Name: Madelaine Ruiz RN Position: [facility] RN Member Role: Primary Care Nurse Name: Lora Santiago RN Position: [facility] SN RN Member Role: Primary Care Nurse Name: Mayco Ro RN Position: [facility] RN Member Role: Primary Care Nurse Name: Heydi Potts RN Position: [facility] SN RN Member Role: Primary Care Nurse Name: Janice Romano LPN Position: [facility] RN Member Role: Primary Care Nurse Name: Nadya Low RN Position: [facility] RN Member Role: Primary Care Nurse Name: Mirna Greenfield RN Position: [facility] RN Member Role: Primary Care Nurse Name: Nessa Bonilla RN Position: [facility] Hse Specialist Member Role: Primary Care Nurse Care Team Related Persons Name: ROSETTADINESH AVILA Address: home [address] [place] [address] Name: BON DE Address: home [address] [address]
--- OUTSIDE RECORDS SUMMARY | 2024-06-24 14:16 | XMS_ITS | Continuity of Care Document ---
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 Name Role Phone Celestina Trinidad MD Primary Care Physician Encounter [facility] Date(s): 07/03/22 - 07/10/22 [facility] [address] [place] [address]- Encounter Diagnosis Ischemic finger(Discharge Diagnosis) - 07/03/22 Thromboangiitis obliterans(Discharge Diagnosis) - 07/03/22 Attending Physician: Celestina Trinidad MD Allergies, Adverse Reactions, Alerts No Known Allergies Immunizations Given and Recorded Vaccine Date Status Refusal Reason [id number] 12y+ bivalent booster vax 06/14/22 Recorded influenza [...] inactivated 4 07/31/12 Gi hali SARS-CoV-2 mRNA ([id number]) vax 02/14/22 Recorded SARS-CoV-2 (COVID-19) mRNA BNT-162b2 vac 05/06/21 Given SARS-CoV-2 (COVID-19) mRNA BNT-162b2 vac 11/04/20 Recorded SARS-CoV-2 (COVID-19) mRNA BNT-162b2 vac 10/14/20 Recorded pneumococcal 23-valent vaccine 5 04/07/19 Given tetanus/diphtheria/pertussis, acel(Tdap) 6 08/13/12 Given 1Result Comment: [facility]# [id number] 2Result Comment: [05/25/2018] [employer] lot number [id number] 01/26/2019 [facility] [id number] 3Result Comment: [08/20/2017] [facility] [id number] 4Admin Note: VIM dated 01/29/12 GIVEN TODAY 5Result Comment: [facility]#[id number] 6Admin Note: VIM dated 08/22/11 GIVEN TODAY [...] Stop, 04/10/2215:14:00 EDT, Route to Pharmacy Electronically, [id number], [facility]/pharmacy #2025, 158, cm, 04/10/22 14:56:00 EDT, Height, 143,... Start Date: 04/10/22 Status: Ordered Amlodipine By Mouth, Daily, 0 Refills, Maintenance, 07/03/22 13:46:00 EST, Partial fill upon patient request if the prescription is for a schedule II opioid drug. Start Date: 07/03/22 Status: Ordered amLODIPine 5 mg oral tablet 5 mg, 1, tablet, By Mouth, Daily, # 30 tablet, Refills 1, Tot. Refills 1, Maintenance, 07/07/22 11:50:00 EST, Route to Pharmacy Electronically, [facility]/pharmacy #2024, Partial fill upon patient request if the prescription is for a schedule II opioid drug.... Start Date: 07/07/22 Status: Ordered Anoro Ellipta 62.5 mcg-25 mcg/inh inhalation powder 1 puffs, By Mouth, Daily, # 1 each, 6 Refills, Maintenance, 05/11/22 13:00:00 EDT, Powder, [facility], Partial fill upon patient [...] Gm, 1 Refills, 09/19/21 12:51:00 EST, [facility]/pharmacy #202, 25, APPLY TOPICALLY 4 TIMES A DAY, 160.02, cm, 07/25/21 16:20:00 EST, Height, 143, kg,01/04/21 10:42:00 EDT, Dry Weight Start Date: 09/19/21 Status: Ordered doxycycline hyclate 100 mg oral tablet 1 tablet = 100 mg, By Mouth, 2 times a day, for 10 days, # 20 tablet, 0 Refills, Acute 07/17/22 11:52:00 EST, 07/07/22 11:52:00 EST, Tablet, [facility]/pharmacy #202, Partial fill upon patient request if the prescription is for a schedule II opioid drug., 1... Start Date: 07/07/22 Stop Date: 07/17/22 Status: Ordered Flonase 50 mcg/inh nasal spray See Instructions, 2 sprays Nares twice daily x 1 week, then once daily x 1-2 weeks until symptoms improve, # 16 Gm, 0 Refills, Maintenance, 02/28/21 16:31:00 EDT, [place], [facility]/pharmacy #202, Partial fill upon patient request if the prescription is for... Start Date: 02/28/21 Status: Ordered FLUoxetine 20 mg oral capsule See Instructions, TAKE 1 CAPSULE BY MOUTH EVERY DAY, # 90 capsule, Refills 1, Maintenance, 06/13/2215:26:00 EST, Instructions Replace Required Details, Route to Pharmacy Electronically, [facility] STORE [id number], 158, cm, 06/09/22 11:21:00 EST, Height, 143, kg... Start Date: 06/13/22 Status: Ordered gabapentin 300 mg oral capsule 300 mg, 1, capsule, By Mouth, 3 times a day, # 90 capsule, Refills 1, Tot. Refills 1, Maintenance, 07/03/22 14:24:00 EST, Route to Pharmacy Electronically, [facility]/pharmacy #2024, Partial fill upon patient request if the prescription is for a schedule II... Start Date: 07/03/22 Status: Ordered levothyroxine 0.137 mg oral tablet 1 tablet = 137 mcg, By Mouth, Daily, 1 tab on days 1-6, take 2 tabs on day 7, # 102 tablet, 1 Refills, Maintenance, 07/03/22 14:41:00 EST, Tablet, [facility]/pharmacy #202, Partial fill upon patient request if the prescription is for a schedule II opioid drMelonie.. Start Date: 07/03/22 Status: Ordered levothyroxine 0.137 mg oral tablet See Instructions, TAKE 1 TABLET BY MOUTH ON DAYS 1-6, THEN TAKE 2 TABLETS BY MOUTH ON DAY 7 Needs TSH lab work for refills, # 96 tablet, 0 Refills, 06/29/22 15:47:00 EST, [facility]/pharmacy #2024, 158, cm,06/09/22 11:21:00 EST, Height, 143, kg, 01/04/21 1... Start Date: 06/29/22 Status: Ordered meclizine 25 mg oral tablet See Instructions, PRN Dizziness, 1 tablet By Mouth 3 times a day, # 30 tablet, 0 Refills, Maintenance, 05/11/21 13:11:00 EDT, [facility]/pharmacy #2025, Partial fill upon patient request if the prescriptionis for a schedule II opioid drug., 160.02, cm, 100... Start Date: 05/11/21 Status: Ordered meloxicam 15 mg oral tablet See Instructions, TAKE 1 TABLET BY MOUTH DAILY WITH FOOD. LABS NEEDED FOR FURTHER REFILLS, # 30 tablet, 3 Refills, Maintenance, 06/08/22 14:55:00 EST, [facility], 158, cm, 06/08/22 14:23:00 EST, Height, 143, kg, 01/04/21 10:42:00 EDT, Dry Weight Start Date: 06/08/22 Status: Ordered oxyCODONE 10 mg oral tablet 1 tablet = 10 mg, By Mouth, Every 8 hours, # 20 tablet, 0 Refills, Acute 07/13/22 12:00:00 EST, 07/07/22 11:53:00 EST, [facility]/pharmacy #2025, Partial fill upon patient request if the prescription is fora schedule II opioid drug., 158, cm, 07/07/22 11:19... Start Date: 07/07/22 Stop Date: 07/13/22 Status: Ordered oxyCODONE 5 mg oral tablet [...] pain, # 81 tablet, 0 Refills, Maintenance, 06/14/22 15:39:00 EST, [facility]/pharmacy #2025, 158, cm, 06/09/22 11:21:00 EST, Height,143, kg, 01/04/21 10:42:00 EDT, Dry Weight Start Date: 06/14/22 Status: Ordered zolpidem 10 mg oral tablet 1 tablet = 10 mg, By Mouth, Daily at bedtime, PRN for sleep, for 30 days, masspat check may fill less, # 30 tablet, 2 Refills, Acute 07/19/22 9:22:00 EST, 04/20/22 9:22:00 EDT, Tablet, [facility], 158, cm, 04/10/22 14:56:00 EDT, Height, 143, kg... Start Date: 04/20/22 Stop Date: 07/19/22 Status: Ordered zolpidem 10 mg oral tablet 1 tablet = 10 mg, By Mouth, Daily at bedtime, PRN for sleep, for 30 days, masspat check may fill less, # 30 tablet, 3 Refills, Acute 07/19/22 13:40:00 EST, 03/21/22 13:40:00 EDT, Tablet, [facility]/pharmacy#2025, 158, cm, 03/02/22 11:38:00 EDT, Height, 143... [...] Mild persistent asthma without complication Confirmed Active Diagnosis Diagnosis Type Effective Dates Health Status Clinical Service Informant Ischemic finger Discharge Diagnosis 07/03/22 Thromboangiitis obliterans Discharge Diagnosis 07/03/22 Vital Signs Most recent to oldest [Reference Range]: 1 Height 158 cm (07/03/22 1:44 PM) Oxygen Saturation [94-100 %] 100 % (07/03/22 1:44 PM) Pulse Rate [55-90 bpm] 92 bpm *H* (07/03/22 1:44 PM) Blood Pressure [90-138/55-84 mm Hg] 134/ 68mm Hg (07/03/22 1:44 PM) Blood pressure sites Arm, left (07/03/22 1:44 PM) Social History Social History Type Response Smoking Status Former smoker, quit more than 30 days ago; Other: smoked up to pack a day x 25 years; entered on: 11/14/21 Sex Note * Yesenia Reid: PERFORM, SIGN, VERIFY Event Display: Patient Education/Instruction Authored Date: [id number] [facility] Clinical Summary Name JORGE ALBERTO SAHU Age 62 Years 1960 PCP Vivi HENNING, Celestina Givens PCP Visit Date 07/03/2022 13:42:00 Additional Instructions: Scheduled Appointments?? Future Appointments ?*[facility] ?[address]??[place],??[place],??[address] ?Phone:??--?Fax:??-- ?Appt. Date:??07/14/2022?11:40 AM ?Scheduled Provider:??Gera HENNING, Hector Graham Follow-Up Instructions ?? Diagnosis Medications: Please continue your medications until treatment is completed or stopped by your provider. Discuss any questions related to medications with your provider. New Medications [facility] [place], [place] [id number], [phone] Gabapentin (gabapentin 300 mg oral capsule) 1 capsule Oral 3 times a day. Refills: 1. Next Dose: Medications to Continue with No Changes These medications were not printed or sent to your pharmacy Acetaminophen (acetaminophen 500 mg oral capsule) 2 capsule Oral twice a day. Next Dose: Albuterol (albuterol CFC free 90 mcg/inh inhalation aerosol) 2 puff(s) Inhalation every 4 hours as needed Wheezing/Shortness of Breath. Refills: 11. Next Dose: Amlodipine Oral Daily. Next Dose: Cilostazol (cilostazol 100 mg oral tablet) 1 tab(s) Oral twice a day. Next Dose: Diclofenac Topical (diclofenac 1% topical gel) APPLY TOPICALLY 4 TIMES A DAY. Refills: 1. Next Dose: Durable Medical Equipment (Aerochamber w/Mask (Medium)) Use as directed with albuterol inhaler. Asthma ICD 10 code J45.909. Refills: 0. Next Dose: Durable Medical Equipment (Compression Stockings) surgical, calf length 20-30 mm Hg Dx: venous insufficiency. Refills: 2. Next Dose: Durable Medical Equipment (Splint) left wrist short cock-up splint. Refills: 0. Next Dose: Fluoxetine (FLUoxetine 20 mg oral capsule) TAKE 1 CAPSULE BY MOUTH EVERY DAY. Refills: 1. Next Dose: Fluticasone Nasal (Flonase 50 mcg/inh nasal spray) 2 sprays Nares twice daily x 1 week, then once daily x 1-2 weeks until symptoms improve. Refills: 0. Next Dose: Levothyroxine (levothyroxine 0.137 mg oral [...] REFILLS. Refills: 3. Next Dose: Oxycodone (oxyCODONE 5 mg oral tablet) 1 tab(s) Oral every 6 hours. Next Dose: Tramadol (traMADol 50 mg oral tablet) 2 tab po qam and one tab po q pm prn moderate to severe pain.Refills: 0. Next Dose: umeclidinium-vilanterol (Anoro Ellipta 62.5 mcg-25 mcg/inh inhalation powder) 1 puff(s) Oral Daily for 30 Days. Refills: 6. Next Dose: Zolpidem (zolpidem 10 mg oral tablet) 1 tab(s) Oral Daily at Bedtime as needed for sleep for 30 Days. masspat check may fill less. Refills: 3. Next Dose: Zolpidem (zolpidem 10 mg oral tablet) 1 tab(s) Oral Daily at Bedtime as needed for sleep for 30 Days. masspat check may fill less. Refills: 2. Next Dose: Allergy Info:?? NKA Medications Given This Visit Future Orders ?No future orders Vital Signs Height 158 cm Weight BMI Blood Pressure 134 mm Hg/68 mm Hg Temperature Pulse Rate 92 bpm Respiratory Rate 02 Sat Mode of Delivery 100 %/ You can now view a summary of your hospital visit from the comfort of your home through a free online portal called [place]. [place] is a website that allows you to securely view your medical information including discharge summary, medications and follow-up visits. ??You can alsosend a secure electronic message to your doctor???s office to request appointments, renew medications or just ask a question. You can enroll at [email or web address] or register during your next office visit. [...] primary care provider, you may find a [facility] provider by calling [facility] [employer] [facility] at [phone]. For information about the plan of care [...] Personnel Name: Celestina Trinidad MD Position: [facility] Primary Care Physician Member Role: PCP Address: Address: [address] [place] [id number] Name: Lauren Mack RN Position: [facility] Nurse Member Role: Primary Care Nurse Name: Lora Santiago RN Position: [facility] RN Member Role: Primary Care Nurse Name: Mayco Ro RN Position: [facility] RN Member Role: Primary Care Nurse Name: Heydi Potts RN Position: [facility] RN Member Role: Primary Care Nurse Name: Nadya Low RN Position: [facility] RN Member Role: Primary Care Nurse Name: Mirna Greenfield RN Position: [facility] RN Member Role: Primary Care Nurse Name: Nessa Bonilla RN Position: [facility] Fill Technician Member Role: Primary Care Nurse Care Team Related Persons Name: DINESH SARGENT Address: home [address] [place] [address] Name: BON DE Address: home [address] [place] [id number]
--- OUTSIDE RECORDS SUMMARY | 2024-06-24 14:16 | XMS_ITS | Continuity of Care Document ---
Author Organization [facility] Address [address] [place] [address]- Care Team Providers Care Advice Line Rn Name Role Phone Noe AHN, Mónica Graham Primary Care Physician Unava ilable Encounter [facility] Date(s): 12/27/21 - 01/26/22 [facility] [address] [place] [address]- Allergies, Adverse Reactions, Alerts No Known Allergies [...] influenza virus vaccine, inactivated 4 07/31/12 Gi ahli pneumococcal 23-valent vaccine 5 04/07/19 Given tetanus/diphtheria/pertussis, acel(Tdap) 6 08/13/12 Given 1Result Comment: [facility]# [id number] 2Result Comment: [05/25/2018] [facility] lot number [id number] 01/26/2019 [facility] [id number] 3Result Comment: [08/20/2017] [facility] [id number] 4Admin Note: VIM dated 01/29/12 GIVEN TODAY 5Result Comment: [facility]#[id number] 6Admin Note: VIM dated 08/22/11 GIVEN TODAY [...] Gm, 0 Refills, Maintenance, 02/28/21 16:31:00 EDT, [place], [facility]/pharmacy #2024, Partial fill upon patient request if the prescription is for... Start Date: 02/28/21 Status: Ordered FLUoxetine 20 mg oral capsule 20 mg, 1, capsule, By Mouth, Daily, Take with Fluoxetine 10mg for a total of 30mg, # 90 capsule, Refills 1, Tot. Refills 1, Maintenance, 12/30/21 12:34:00 EDT, Route to Pharmacy Electronically, [facility]/pharmacy #202, replacing 10mg dose, 160.02, cm, 10/28... Start Date: 12/30/21 Status: Ordered levothyroxine 0.137 mg oral tablet See Instructions, TAKE 1 TABLET BY MOUTH ON DAYS 1-6, THEN TAKE 2 TABLETS BY MOUTH ON DAY 7, # 96 tablet, 1 Refills, [facility] STORE 86120, 160.02, cm, 10/04/21 10:38:00 EST, Height, 143, [...] 30 tablet, 3 Refills, 09/19/21 12:46:00 EST, [facility]/pharmacy #202, 160.02, cm, 07/25/21 16:20:00 EST, Height, [...]
--- OUTSIDE RECORDS SUMMARY | 2024-06-24 14:16 | XMS_ITS | Continuity of Care Document ---
Author Organization [facility] Address [address] [place] [address]- Care Team Providers Care Measuring Machine Operator Name Role Phone Vivi HENNING, Celestina Givens Primary Care Physician Encounter [facility] Date(s): 04/18/24 - 05/18/24 [facility] [address] [place] [address]- Allergies, Adverse Reactions, Alerts No Known Allergies [...] 08/21/22 Given tetanus/diphtheria/pertussis, acel(Tdap) 7 08/13/12 Given [id number] 12y+ bivalent booster vax 06/14/22 Recorded SARS-CoV-2 mRNA ([id number]) vax 02/14/22 Recorded SARS-CoV-2 (COVID-19) mRNA BNT-162b2 vac 05/06/21 Given SARS-CoV-2 (COVID-19) mRNA BNT-162b2 vac 11/04/20 Recorded SARS-CoV-2 (COVID-19) mRNA BNT-162b2 vac 10/14/20 Recorded pneumococcal 23-valent vaccine 8 04/07/19 Given 1Result Comment: screening negative 2Result Comment: [facility]# [id number] 3Result Comment: [05/25/2018] [facility] lot number [id number] exp 01/26/[address] [facility] [id number] 4Result Comment: [08/20/2017] [facility] [id number] 5Admin Note: VIM dated 01/29/12 GIVEN TODAY 6Result Comment: [facility]# [id number] 7Admin Note: VIM dated 08/22/11 GIVEN TODAY 8Result Comment: [facility]#[id number] Medications acetaminophen 500 mg oral capsule 2 [...] 1 Refills, Soft Stop, 12/06/23 17:28:00 EDT, [facility]/pharmacy #5, Partial fill upon patient [...] 05/17/24 16:46:00 EDT, Route to Pharmacy Electronically, [facility]/pharmacy #202, Partial fill upon patient request if the prescription is for a... Start Date: 05/17/24 Status: Ordered diclofenac 1% topical gel See Instructions, APPLY TO AFFECTED AREA 4 TIMES A DAY. NOT COVERED, # 100 Gm, 1 Refills, Maintenance, 04/22/24 15:15:00 EDT, [facility]/pharmacy #2024, 30, APPLY TO AFFECTED AREA 4 TIMES A DAY. NOT COVERED, 157.5, cm, 02/12/24 14:48:00 EDT, Height, 145.9, k... Start Date: 04/22/24 Status: Ordered diclofenac 1% topical gel See Instructions, APPLY TO AFFECTED AREA 4 TIMES A DAY, # 100 Gm, 1 Refills, Maintenance, 11/07/23 7:48:00 EDT, [facility]/pharmacy #2024, 25, APPLY TO AFFECTED [...] Gm, 0 Refills, Maintenance, 02/28/21 16:31:00 EDT, [place], [facility]/pharmacy #2025, Partial fill upon patient request if the prescription is for... Start Date: 02/28/21 Status: Ordered FLUoxetine 10 mg oral capsule 1, capsule, By Mouth, Daily, INSTR:TO BE TAKEN WITH 20MG CAPSULES TO EQUAL 30MG DAILY, # 90 capsule, Refills 1, Maintenance, 01/25/24 9:11:00 EDT, Route to Pharmacy Electronically, [facility], 157.5, cm, 01/22/24 10:31:00 EDT, Height, 145.9, kg,... Start Date: 01/25/24 Status: Ordered gabapentin 300 mg oral capsule 600 mg, 2, capsule, By Mouth, 3 times a day, # 180 capsule, Refills 3, Tot. Refills 3, Maintenance,08/25/22 22:35:00 EST, Route to Pharmacy Electronically, [facility]/pharmacy #202, Partial fill upon patient [...] tablet, 1 Refills, Maintenance, 12/28/23 16:17:00 EDT, [facility] STORE 65[facility], 157.5, cm, 10/18/23 15:15:00 EDT, Height, 145.9, [...] Code MRI Safety Implantable Status Assigning Authority [id number] Unknown [id number] Unknown 08/26/24 Unknown Unknown Active GS1 Patient Care team information Care Team Personnel Name: Celestina Trinidad MD Position: [facility] Physician - Primary Care Member Role: PCP Address: Address: [address] [place] [address] Name: Hemalatha Lucas RN Position: [facility] RN Member Role: Primary Care Nurse Name: Lauren Mack RN Position: [facility] RN [...] Member Role: Primary Care Nurse Name: Mirna Greenifeld RN Position: [facility] RN Member Role: Primary Care Nurse Name: Nessa Bonilla RN Position: [facility] Clerical Support Specialist Member Role: Primary Care Nurse Care Team Related Persons Name: ROSETTA, DINESH Address: [address] [place] [address] Name: BON DE Address: [address] [address]
--- OUTSIDE RECORDS SUMMARY | 2024-06-24 14:16 | XMS_ITS | Continuity of Care Document ---
Author Organization [facility] ter Address [address] [place] [address]- Care Team Providers Care Boilers Inspector Name Role Phone Vivi HENNING, Celestina Givens Primary Care Physician Encounter [facility] Date(s): 03/30/23 - 05/23/[address] [address] Attending Physician: Rosie Cortes NP Admitting Physician: Rosie Cortes NP Referring Physician: Rosie Cortes NP Allergies, Adverse Reactions, Alerts No Known Allergies Immunizations Given and Recorded Vaccine Date Status Refusal Reason tetanus/diphtheria/pertussis, acel(Tdap) 1 08/21/22 Given tetanus/diphtheria/pertussis, acel(Tdap) 2 08/13/12 Given [id number] 12y+ bivalent booster vax 06/14/22 Recorded influenza [...] inactivated 6 07/31/12 Gi hali SARS-CoV-2 mRNA ([id number]) vax 02/14/22 Recorded SARS-CoV-2 (COVID-19) mRNA BNT-162b2 vac 05/06/21 Given SARS-CoV-2 (COVID-19) mRNA BNT-162b2 vac 11/04/20 Recorded SARS-CoV-2 (COVID-19) mRNA BNT-162b2 vac 10/14/20 Recorded pneumococcal 23-valent vaccine 7 04/07/19 Given 1Result Comment: [facility]# [id number] 2Admin Note: VIM dated 08/22/11 GIVEN TODAY 3Result Comment: [facility]# [id number] 4Result Comment: [05/25/2018] [employer] lot number [id number] exp 01/26/2019 [facility] [id number] 5Result Comment: [08/20/2017] [facility] [id number] 6Admin Note: VIM dated 01/29/12 GIVEN TODAY 7Result Comment: [facility]#[id number] Medications acetaminophen 500 mg oral capsule 2 [...] Stop, 04/10/2215:14:00 EDT, Route to Pharmacy Electronically, [id number], [facility]/pharmacy #2025, 158, cm, 04/10/22 14:56:00 EDT, [...] 05/17/23 16:45:00 EDT, Route to Pharmacy Electronically, [facility]/pharmacy #9039, Partial fill upon patient request if the presc... Start Date: 05/17/23 Stop Date: 05/17/24 Status: Ordered diclofenac 1% topical gel See Instructions, APPLY TOPICALLY 4 TIMES A DAY, # 100 Gm, 1 Refills, Maintenance, 01/08/23 9:36:00EDT, [facility] STORE [facility], 50, APPLY TOPICALLY 4 TIMES A DAY, [...] Gm, 0 Refills, Maintenance, 02/28/21 16:31:00 EDT, [place], [facility]/pharmacy #2024, Partial fill upon patient request if the prescription is for... Start Date: 02/28/21 Status: Ordered FLUoxetine 10 mg oral capsule 10 mg, 1, capsule, By Mouth, Daily, to be taken with 20mg capsules to equal 30mg daily, # 90 capsule, Refills 1, Tot. Refills 1, Maintenance, 04/03/23 11:25:00 EDT, Route to Pharmacy Electronically, [facility]/pharmacy #202, Partial fill upon patient reques... Start Date: 04/03/23 Status: Ordered FLUoxetine 20 mg oral capsule 1, capsule, By Mouth, Daily, # 90 capsule, Refills 1, Tot. Refills 1, Maintenance, 04/03/23 11:23:00 EDT, Route to Pharmacy Electronically, [facility]/pharmacy #2024, 157, cm, 03/14/23 11:02:00 EDT, Height,145, kg, 08/29/22 20:13:00 EST, Dry Weight Start Date: 04/03/23 Status: Ordered gabapentin 300 mg oral capsule 600 mg, 2, capsule, By Mouth, 3 times a day, # 180 capsule, Refills 3, Tot. Refills 3, Maintenance,08/25/22 22:35:00 EST, Route to Pharmacy Electronically, [facility]/pharmacy #2025, Partial fill upon patient request [...] Refills, Maintenance, 02/27/23 7:25:00 EDT, [facility], 157, cm, 12/08/22 14:27:00 EDT, Height, 145, kg, 08/29/22 20:13:00 EST, Dry... Start Date: 02/27/23 Status: Ordered meclizine 25 mg oral tablet See Instructions, PRN Dizziness, 1 tablet By Mouth 3 times a day, # 30 tablet, 0 Refills, Maintenance, 02/27/23 10:43:00 EDT, [facility]/pharmacy #2025, Partial fill upon patient request if the prescriptionis for a schedule II opioid drug., 157, cm, ... Start Date: 02/27/23 Status: Ordered meloxicam 15 mg oral tablet See Instructions, TAKE 1 TABLET BY MOUTH DAILY WITH FOOD. LABS NEEDED FOR FURTHER REFILLS, # 30 tablet, 1 Refills, Maintenance, 05/01/23 14:45:00 EDT, [facility]/pharmacy #2024, 157, cm, 03/14/23 11:02:00 EDT, Height, 145, kg, 08/29/22 20:13:00 EST, Dry Weight Start Date: 05/01/23 Status: Ordered oxyCODONE 5 mg oral tablet 5 mg, 1, tablet, By Mouth, Every 4 hours, PRN, you may filll this prescription for fewer pills. MASSpat reviewed, # 20 tablet, Refills 0, Tot. Refills 0, Maintenance, Pain , Severe, 05/22/23 9:10:00 EDT, Route to Pharmacy Electronically, [facility]/pharmacy... Start Date: 05/22/23 Status: Ordered Splint See [...] 06/10/23 12:40:00 EST, 05/11/23 12:40:00 EDT, Tablet, [facility]/pharmacy #2024, early refill for travel. Thanks., 157, [...] obesity Confirmed Active Thromboangiitis obliterans Confirmed Active Hernia, [...] Code MRI Safety Implantable Status Assigning Authority [id number] Unknown [id number] Unknown 08/26/24 Unknown Unknown Active GS1 Patient Care team information Care Team Personnel Name: Celestina Trinidad MD Position: [facility] Physician - Primary Care Member Role: PCP Address: Address: [address] [place] [id number] Name: Hemalatha Lucas RN Position: [facility] RN Member Role: Primary Care Nurse Name: Lauren Mack RN Position: [facility] AMB Nurse Member Role: Primary Care Nurse Name: Madelaine Ruiz RN Position: [facility] RN Member Role: Primary Care Nurse Name: Lora Santiago RN Position: [facility] SN RN Member Role: Primary Care Nurse Name: Mayco Ro RN Position: [facility] RN Member Role: Primary Care Nurse Name: Heydi Potts RN Position: [facility] RN Member Role: Primary Care Nurse Name: Janice Romano LPN Position: [facility] RN Member Role: Primary Care Nurse Name: Nadya Low RN Position: [facility] RN Member Role: Primary Care Nurse Name: Mirna Greenfield RN Position: [facility] RN Member Role: Primary Care Nurse Name: Nessa Bonilla RN Position: [facility] Hospital High School Science Tutor Member Role: Primary Care Nurse Care Team Related Persons Name: DINESH SARGENT Address: home [address] [place] [address] Name: BON DE Address: home [address] [address]
--- OUTSIDE RECORDS SUMMARY | 2024-06-24 14:17 | XMS_ITS | Continuity of Care Document ---
Author Organization [facility] Address [address] [place] [address]- Care Team Providers Care Tail Board Man Name Role Phone Noe AHN, Mónica Graham Primary Care Physician Encounter [facility] Date(s): 08/25/21 - 09/24/21 [facility] [address] [place] [address]- Attending Physician: Calixto Beltran Admitting Physician: AdmCalixto hernandez Referring Physician: Admtr ArLarissa Allergies, Adverse Reactions, Alerts No Known Allergies [...] 6 08/13/12 Given 1Result Comment: [facility]# [id number] 2Result Comment: [05/25/2018] [facility] lot number [id number] exp 01/26/2019 [facility] [id number] 3Result Comment: [08/20/2017] [facility] [id number] 4Admin Note: VIM dated 01/29/12 GIVEN TODAY 5Result Comment: [facility]#[id number] 6Admin Note: VIM dated 08/22/11 GIVEN TODAY [...] Replace Required Details, Route to Pharmacy Electronically, [id number]... Start Date: 09/15/21 Status: Ordered Aerochamber w/Mask [...] 07/25/21 16:53:00 EST, Route to Pharmacy Electronically, [id number], [facility], 160.02, cm, 07/25/21 16:20:00 EST, Height, 143... Start Date: 07/25/21 Status: Ordered diclofenac 1% topical gel See Instructions, APPLY TOPICALLY 4 TIMES A DAY, # 100 Gm, 1 Refills, 09/19/21 12:51:00 EST, [facility], 25, APPLY TOPICALLY 4 TIMES A DAY, 160.02, cm, 12/27/21 16:20:00 EST, Height, 143, kg,01/04/21 10:42:00 EDT, Dry Weight Start Date: 09/19/21 Status: Ordered Flonase 50 mcg/inh nasal spray See Instructions, 2 sprays Nares twice daily x 1 week, then once daily x 1-2 weeks until symptoms improve, # 16 Gm, 0 Refills, Maintenance, 02/28/21 16:31:00 EDT, [place], [facility]/pharmacy #2024, Partial fill upon patient request if the prescription is for... Start Date: 02/28/21 Status: Ordered FLUoxetine 10 mg oral capsule 10 mg, 1, capsule, By Mouth, Daily, Take with 20mg capsule for total of 30mg daily, # 90 capsule, Refills 1, Tot. Refills 1, Maintenance, 09/19/21 12:45:00 EST, Route to Pharmacy Electronically, [facility]/pharmacy #2024, Partial fill upon patient request if... Start Date: 09/19/21 Status: Ordered FLUoxetine 20 mg oral capsule 20 mg, 1, capsule, By Mouth, Daily, Take with Fluoxetine 10mg for a total of 30mg, # 90 capsule, Refills 1, Tot. Refills 1, Maintenance, 05/04/21 16:44:00 EDT, Route to Pharmacy Electronically, [facility]/pharmacy #2024, replacing 10mg dose, 160.02, cm, [...] tablet, 0 Refills, Maintenance, 05/11/21 13:11:00 EDT, [facility]/pharmacy #202, Partial fill upon patient request if the prescriptionis for a schedule II opioid drug., 160.02, cm, 10/0... Start Date: 05/11/21 Status: Ordered meloxicam 15 mg oral tablet 1 tablet, By Mouth, Daily, WITH FOOD., # 30 tablet, 3 Refills, 09/19/21 12:46:00 EST, [facility]/pharmacy #2024, 160.02, cm, 07/25/21 16:20:00 EST, Height, [...] 08/04/19 17:54:00 EST, Route to Pharmacy Electronically, [facility]/pharmacy #2024, 161, cm, 08/04/19 14:44:00 EST, Height Start Date: 08/04/19 Stop Date: 08/18/19 Status: Ordered traMADol 50 mg oral tablet 2 tablet = 100 mg, By Mouth, Every 12 hours, as needed for pain masspat checked, # 112 tablet, 0 Refills, Maintenance, 09/20/21 10:55:00 EST, [facility]/pharmacy #2024, 160.02, cm, 07/25/21 16:20:00 EST, Height, 143, kg, 01/04/21 10:42:00 EDT, Dry Weight Start Date: 09/20/21 Stop Date: 10/18/21 Status: Ordered zolpidem 10 mg oral tablet 1 tablet = 10 mg, By Mouth, Daily at bedtime, PRN for sleep, for 30 days, masspat check may fill less, # 30 tablet, 3 Refills, Acute 01/20/22 10:19:00 EDT, 09/22/21 10:19:00 EST, Tablet, [facility]/pharmacy#2024, 160.02, cm, 07/25/21 16:20:00 EST, Height,... Start [...]
--- OUTSIDE RECORDS SUMMARY | 2024-06-24 14:17 | XMS_ITS | Continuity of Care Document ---
Author Organization [facility] lt Address [address] [place] [address]- Care Team Providers Care Store Facility Technician Name Role Phone Florentino AHN, Elder Hannah Primary Care Physician Encounter [facility] Date(s): 03/16/21 - 04/15/21 [facility] [address] [place] [address]- Allergies, Adverse Reactions, Alerts Substance Reaction Severity [...] acel(Tdap) 6 08/13/12 Given 1Result Comment: [facility]# [id number] 2Result Comment: [05/25/2018] [facility] lot number [id number] exp 01/26/2019 [facility] [id number] 3Result Comment: [08/20/2017] [facility] [id number] 4Admin Note: VIM dated 01/29/12 GIVEN TODAY 5Result Comment: [facility]#[id number] 6Admin Note: VIM dated 08/22/11 GIVEN TODAY [...] 10/27/20 14:48:00 EDT, Route to Pharmacy Electronically, [id number], [facility]/pharmacy #2024, 160.02, cm, 10/19/20 11:04:00 EDT, Height, 156... Start Date: 10/27/20 Status: Ordered betamethasone-clotrimazole 0.05%-1% topical cream 1 application, Topically, 2 times a day, # 45 Gm, 0 Refills, Maintenance, 12/27/20 14:13:00 EDT, [place], [facility]/pharmacy #2024, Partial fill upon patient request if the prescription is for a schedule II opioid drug., 1 application Topically 2 times a day,... Start Date: 12/27/20 Status: Ordered diclofenac 1% topical gel See Instructions, APPLY TOPICALLY 4 TIMES A DAY, # 100 Gm, 1 Refills, 10/27/20 12:37:00 EDT, [facility]/pharmacy #2024, 25, APPLY TOPICALLY 4 TIMES A DAY, 160.02, cm, 10/19/20 11:04:00 EDT, Height, 156.81, kg, 10/19/20 11:04:00 EDT, Dry Weight Start Date: 10/27/20 Status: Ordered Flonase 50 mcg/inh nasal spray See Instructions, 2 sprays Nares twice daily x 1 week, then once daily x 1-2 weeks until symptoms improve, # 16 Gm, 0 Refills, Maintenance, 02/28/21 16:31:00 EDT, [place], [facility]/pharmacy #202, Partial fill upon patient request if the prescription is for... Start Date: 02/28/21 Status: Ordered FLUoxetine 10 mg oral capsule 10 mg, 1, capsule, By Mouth, Daily, Take with 20mg capsule for total of 30mg daily, # 90 capsule, Refills 0, Tot. Refills 0, Maintenance, 03/11/21 12:00:00 EDT, Route to Pharmacy Electronically, [facility]/pharmacy #2024, Partial fill upon patient request if... Start Date: 03/11/21 Status: Ordered FLUoxetine 20 mg oral capsule 20 mg, 1, capsule, By Mouth, Daily, # 30 capsule, Refills 5, Tot. Refills 5, Maintenance, 12/20/20 14:39:00 EDT, Route to Pharmacy Electronically, [facility]/pharmacy #2024, replacing 10mg dose, 160.02, cm,12/20/20 11:59:00 EDT, Height, 156.81, kg, 10/19/20... Start Date: 12/20/20 Status: Ordered levothyroxine 0.137 mg oral tablet See Instructions, Take 1 tablet by mouth on days 1-6, then take 2 tablets by mouth on day 7, # 121 tablet, 5 Refills, Maintenance, 12/07/20 9:46:00 EDT, [facility]/pharmacy #2024, 160.02, cm, 10/19/20 11:04:00 EDT, Height, 156.81, kg, 10/19/20 11:04:00 EDT,... Start Date: 12/07/20 Status: Ordered meloxicam 15 mg oral tablet 1 tablet, By Mouth, Daily, WITH FOOD., # 30 tablet, 1 Refills, [facility] STORE [facility], 160.02, cm, 02/28/21 15:45:00 EDT, Height, 143, [...] 17:54:00 EST, Route to Pharmacy Electronically, [facility], 161, cm, 08/04/19 14:44:00 EST, Height Start Date: 08/04/19 Stop Date: 08/18/19 Status: Ordered traMADol 50 mg oral tablet 2 tablet = 100 mg, By Mouth, Every 12 hours, as needed for pain masspat checked, # 120 tablet, 2 Refills, Maintenance, 02/10/21 12:37:00 EDT, [facility], 160.02, cm, 01/04/21 10:42:00 EDT, Height, [...]
--- OUTSIDE RECORDS SUMMARY | 2024-06-24 14:17 | XMS_ITS | Continuity of Care Document ---
Author Organization [facility] Address [address] [place] [address]- Care Team Providers Care Cartographic Engineer Name Role Phone Noe AHN, Mónica Graham Primary Care Physician Unava ilable Encounter [facility] Date(s): 01/12/22 - 01/19/22 [facility] [address] [place] [address]- Encounter Diagnosis Chronic musculoskeletal pain(Discharge Diagnosis) - 01/12/22 SOB (shortness of breath) on exertion(Discharge Diagnosis) - 01/12/22 Attending Physician: Madeline Lux NP Allergies, Adverse Reactions, [...] [facility]# [id number] 2Result Comment: [05/25/2018] [facility] lot number [id number] exp 01/26/2019 [facility] [id number] 3Result Comment: [08/20/2017] [facility] [id number] 4Admin Note: VIM dated 01/29/12 GIVEN TODAY 5Result Comment: [facility]#[id number] 6Admin Note: VIM dated 08/22/11 GIVEN TODAY [...] Refills, Maintenance, 01/02/22 15:20:00 EDT, [place], [facility], Partial fill upon patient request if the prescription is for a schedule II opioid drug., 1 puffs Inhalation Daily,x30 days, 160.02, cm, 06... Start Date: 01/02/22 Stop Date: 05/02/22 Status: Ordered clotrimazole 1% topical cream 1 application, Topically, 2 times a day, for 7 days, # 45 Gm, 2 Refills, Acute 01/23/22 15:06:00 EDT, 01/02/22 15:06:00 EDT, [place], [facility], Partial fill upon patient request if the prescription is for a schedule II opioid drug., 1 applicat... Start Date: 01/02/22 Stop Date: 01/23/22 Status: Ordered diclofenac 1% topical gel See Instructions, APPLY TOPICALLY 4 TIMES A DAY, # 100 Gm, 1 Refills, 09/19/21 12:51:00 EST, [facility]/pharmacy #2024, 25, APPLY TOPICALLY 4 TIMES A DAY, 160.02, cm, 07/25/21 16:20:00 EST, Height, 143, kg,01/04/21 10:42:00 EDT, Dry Weight Start Date: 09/19/21 Status: Ordered Flonase 50 mcg/inh nasal spray See Instructions, 2 sprays Nares twice daily x 1 week, then once daily x 1-2 weeks until symptoms improve, # 16 Gm, 0 Refills, Maintenance, 02/28/21 16:31:00 EDT, [place], [facility]/pharmacy #202, Partial fill upon patient request if the prescription is for... Start Date: 02/28/21 Status: Ordered FLUoxetine 20 mg oral capsule 20 mg, 1, capsule, By Mouth, Daily, Take with Fluoxetine 10mg for a total of 30mg, # 90 capsule, Refills 1, Tot. Refills 1, Maintenance, 12/30/21 12:34:00 EDT, Route to Pharmacy Electronically, [facility]/pharmacy #202, replacing 10mg dose, 160.02, cm, 10/28... Start Date: 12/30/21 Status: Ordered levothyroxine 0.137 mg oral tablet See Instructions, TAKE 1 TABLET BY MOUTH ON DAYS 1-6, THEN TAKE 2 TABLETS BY MOUTH ON DAY 7, # 96 tablet, 1 Refills, [facility] STORE [address]3495, 160.02, cm, 10/04/21 10:38:00 EST, Height, 143, kg, 01/04/21 10:42:00 EDT, Dry Weight Start Date: 11/08/21 Status: Ordered meclizine 25 mg oral tablet See Instructions, PRN Dizziness, 1 tablet By Mouth 3 times a day, # 30 tablet, 0 Refills, Maintenance, 05/11/21 13:11:00 EDT, [facility]/pharmacy #202, Partial fill upon patient [...] 0 Refills, Maintenance, 01/12/22 11:47:00 EDT, [facility], 160.02, cm, 01/12/22 11:09:00 EDT, Height, 143, kg, 01/04/21 10:42:00 EDT, Dry Weight Start Date: 01/12/22 Status: Ordered zolpidem 10 mg oral tablet [...] Effective Dates Health Status Clinical Service Informant Chronic musculoskeletal pain Discharge Diagnosis 01/12/22 SOB (shortness of breath) on exertion Discharge Diagnosis 01/12/22 Vital Signs Most recent to oldest [Reference Range]: 1 Height 160.02 cm (01/12/22 11:09 AM) Oxygen Saturation [94-100 %] 98 % (01/12/22 11:09 AM) Pulse Rate [55-90 bpm] 73 bpm (01/12/22 11:09 AM) Blood Pressure [90-138/55-84 mm Hg] 132/ 86mm Hg (01/12/22 11:09 AM) Respiratory Rate [16-30 br/min] 18 br/mi n (01/12/22 11:09 AM) Blood pressure sites Arm, left (01/12/22 11:09 AM) Social History Social History Type Response Smoking Status Former smoker, quit more than 30 days ago; Other: smoked up to pack a day x 25 years; entered on: 11/14/21 Sex
--- OUTSIDE RECORDS SUMMARY | 2024-06-24 14:17 | XMS_ITS | Continuity of Care Document ---
Author Organization [facility] Address [address] [place] [address]- Care Team Providers Care Food Service Attendant Name Role Phone Vivi HENNING, Celestina Givens Primary Care Physician Encounter [facility] [place] Date(s): 06/04/23 - 07/04/23 [facility] [address] [place] [address]- Allergies, Adverse Reactions, Alerts No Known Allergies Immunizations Given and Recorded Vaccine Date Status Refusal Reason tetanus/diphtheria/pertussis, acel(Tdap) 1 08/21/22 Given tetanus/diphtheria/pertussis, acel(Tdap) 2 08/13/12 Given [id number] 12y+ bivalent booster vax 06/14/22 Recorded influenza [...] inactivated 6 07/31/12 Gi hali SARS-CoV-2 mRNA ([id number]) vax 02/14/22 Recorded SARS-CoV-2 (COVID-19) mRNA BNT-162b2 vac 05/06/21 Given SARS-CoV-2 (COVID-19) mRNA BNT-162b2 vac 11/04/20 Recorded SARS-CoV-2 (COVID-19) mRNA BNT-162b2 vac 10/14/20 Recorded pneumococcal 23-valent vaccine 7 04/07/19 Given 1Result Comment: [facility]# [id number] 2Admin Note: VIM dated 08/22/11 GIVEN TODAY 3Result Comment: [facility]# [id number] 4Result Comment: [05/25/2018] [facility] lot number [id number] exp 01/26/2019 [facility] [id number] 5Result Comment: [08/20/2017] [facility] [id number] 6Admin Note: VIM dated 01/29/12 GIVEN TODAY 7Result Comment: [facility]#[id number] Medications acetaminophen 500 mg oral capsule 2 [...] Pharmacy Electronically, [facility]/pharmacy #202, Partial fill upon [...] Gm, 0 Refills, Maintenance, 02/28/21 16:31:00 EDT, [place], [facility]/pharmacy #2024, Partial [...] Maintenance,08/25/22 22:35:00 EST, Route to Pharmacy Electronically, [facility] tablet, 2 Refills, Maintenance, 02/27/23 7:25:00 EDT, [facility] STORE 90416, 157, cm, 12/08/22 14:27:00 EDT, Height, 145, [...] [facility]ically, [facility] Start Date: 05/22/23 Status: Ordered Splint See [...] Code MRI Safety Implantable Status Assigning Authority [id number] Unknown [id number] Unknown 08/26/24 Unknown Unknown Active GS1 Patient Care team information Care Team Personnel Name: Celestina Trinidad MD Position: [facility] Physician - Primary Care Member Role: PCP Address: Address: [address] [place] [address] Name: Hemalatha Lucas RN [facility] [...] Care Nurse Name: Nessa Bonilla RN Position: [facility] Assistant Branch Operations Manager Member Role: Primary Care Nurse Care Team Related Persons Name: DINESH SARGENT Address: home [address] [place] [address] Name: BON DE Address: home [address] [address]
--- OUTSIDE RECORDS SUMMARY | 2024-06-24 14:17 | XMS_ITS | Continuity of Care Document ---
Author Organization [facility] Address [address] [place] [address]- Care Team Providers Care Molding Process Technician Name Role Phone Padmaja Guerrero NP Primary Care Physician [phone] [place] [facility] [place] 01/02[place]22 - 01/09/22 [facility] [address] [place] [address]- Encounter Diagnosis Acquired hypothyroidism(Discharge Diagnosis) - 01/02/22 Candidal intertrigo(Discharge Diagnosis) - 01/02/22 Large breasts(Discharge Diagnosis) - 01/02/22 SOB (shortness of breath) on exertion(Discharge Diagnosis) - 01/02/22 Attending Physician: Madeline Lux NP Referring Physician: Padmaja Guerrero NP Allergies, Adverse Reactions, Alerts No Known [...] influenza virus vaccine, inactivated 3 08/20/17 Gi hlai influenza virus vaccine, inactivated 05/17/16 Give n influenza virus vaccine, inactivated 08/11/15 Give n influenza virus vaccine, inactivated 4 07/31/12 Gi hali pneumococcal 23-valent vaccine 5 04/07/19 Given tetanus/diphtheria/pertussis, acel(Tdap) 6 08/13/12 Given 1Result Comment: [facility]# [id number] 2Result Comment: [05/25/2018] [facility] lot number [id number] exp 01/26/[address] [facility] [id number] 3Result Comment: [08/20/2017] [facility] [id number] 4Admin Note: VIM dated 01/29/12 GIVEN TODAY 5Result Comment: [facility]#[id number] 6Admin Note: VIM dated 08/22/11 GIVEN TODAY [...] Refills, Maintenance, 01/02/22 15:20:00 EDT, [place], [facility] fill upon patient request if the prescription is for a schedule II opioid drug., 1 puffs Inhalation Daily,x30 days, 160.02, cm, 06... Start Date: 01/02/22 Stop Date: 05/02/22 Status: Ordered clotrimazole 1% topical cream 1 application, Topically, 2 times a day, for 7 days, # 45 Gm, 2 Refills, Acute 01/23/22 15:06:00 EDT, 01/02/22 15:06:00 EDT, Cream, [facility]/pharmacy #2024, Partial fill upon patient [...] Gm, 0 Refills, Maintenance, 02/28/21 16:31:00 EDT, [place], [facility]/pharmacy #202, Partial fill upon patient request if the prescription is for... Start Date: 02/28/21 Status: Ordered FLUoxetine 20 mg oral capsule 20 mg, 1, capsule, By Mouth, Daily, Take with Fluoxetine 10mg for a total of 30mg, # 90 capsule, Refills 1, Tot. Refills 1, Maintenance, 12/30/21 12:34:00 EDT, Route to Pharmacy Electronically, [facility]/pharmacy #202, replacing 10mg dose, 160.02, cm, 10/28... Start Date: 12/30/21 Status: Ordered levothyroxine 0.137 mg oral tablet See Instructions, TAKE 1 TABLET BY MOUTH ON DAYS 1-6, THEN TAKE 2 TABLETS BY MOUTH ON DAY 7, # 96 tablet, 1 Refills, [facility]144, 160.02, cm, 10/04/21 10:38:00 EST, Height, 143, [...] tablet, 3 Refills, 09/19/21 12:46:00 EST, [facility], 160.02, cm, 07/25/21 16:20:00 EST, Height, [...] 01/20/22 10:19:00 EDT, 09/22/21 10:19:00 EST, Tablet, [facility], 160.02, cm, 07/25/21 16:20:00 EST, Height,... Start [...] Effective Dates Health Status Clinical Service Informant Large breasts Discharge Diagnosis 01/02/22 Candidal intertrigo Discharge Diagnosis 01/02/22 Acquired hypothyroidism Discharge Diagnosis 01/02/22 SOB (shortness of breath) on exertion Discharge Diagnosis 01/02/22 Vital Signs Most recent to oldest [Reference Range]: 1 Height 160.02 cm (01/02/22 2:18 PM) Oxygen Saturation [94-100 %] 98 % (01/02/22 2:18 PM) Pulse Rate [55-90 bpm] 74 bpm (01/02/22 2:18 PM) Blood Pressure [90-138/55-84 mm Hg] 132/ 78mm Hg (01/02/22 2:18 PM) Respiratory Rate [16-30 br/min] 18 br/mi n (01/02/22 2:18 PM) Blood pressure sites Arm, right (01/02/22 2:18 PM) Social History Social History Type Response Smoking Status Former smoker, quit more than 30 days ago; Other: smoked up to pack a day x 25 years; entered on: 11/14/21 Sex
--- OUTSIDE RECORDS SUMMARY | 2024-06-24 14:17 | XMS_ITS | Continuity of Care Document ---
Author Organization [facility] Address [address] [address]- Care Team Providers Care Rubber Compounder Mixer Name Role Phone Vivi HENNING, Celestina Givens Primary Care Physician [facility] - 10/04/22 [facility] [address] [address]- [place] Allergies, Adverse Reactions, Alerts No Known Allergies Immunizations Given and Recorded Vaccine Date Status Refusal Reason tetanus/diphtheria/pertussis, acel(Tdap) 1 08/21/22 Given tetanus/diphtheria/pertussis, acel(Tdap) 2 08/13/12 Given [id number] 12y+ bivalent booster vax 06/14/22 Recorded influenza [...] inactivated 6 07/31/12 Gi hali SARS-CoV-2 mRNA (bucdeit-fgbh-swljv) vax 02/14/22 Recorded SARS-CoV-2 (COVID-19) mRNA BNT-162b2 vac 05/06/21 Given SARS-CoV-2 (COVID-19) mRNA BNT-162b2 vac 11/04/20 Recorded SARS-CoV-2 (COVID-19) mRNA BNT-162b2 vac 10/14/20 Recorded pneumococcal 23-valent vaccine 7 04/07/19 Given 1Result Comment: [facility]# [id number] 2Admin Note: VIM dated 08/22/11 GIVEN TODAY 3Result Comment: [facility]# [id number] 4Result Comment: [05/25/2018] [facility] lot number [id number] exp 01/26/2019 [facility] [id number] 5Result Comment: [08/20/2017] [facility] [id number] 6Admin Note: VIM dated 01/29/12 GIVEN TODAY 7Result Comment: [facility]#[id number] Medications acetaminophen 500 mg oral capsule 2 [...] Stop, 04/10/2215:14:00 EDT, Route to Pharmacy Electronically, [id number], [facility]/pharmacy #2025, 158, cm, 04/10/22 14:56:00 EDT, Height, 143,... Start Date: 04/10/22 Status: Ordered amLODIPine 5 mg oral tablet 1 tablet, By Mouth, Daily, # 30 tablet, 5 Refills, Maintenance, 08/24/22 20:08:00 EST, [facility], 159, cm, 08/21/22 11:38:00 EST, Height, 143, kg, 01/04/21 10:42:00 EDT, Dry Weight Start Date: 08/24/22 Status: Ordered Augmentin 875 mg-125 mg oral tablet 1 tablet, By Mouth, Every 12 hours, for 6 week(s), # 84 tablet, 0 Refills, Acute 10/12/22 13:28:00 EDT, 08/31/22 13:28:00 EST, Tablet, [facility]/pharmacy #2024, Partial [...] 11:06:00 EST, Aerosol, Route to Pharmacy Electronically, [id number]... Start Date: 09/12/22 Status: Ordered cilostazol 50 [...] 100 Gm, 1 Refills, 09/22/22 7:28:00 EST, [facility]/pharmacy #2024, 25, APPLY TOPICALLY 4 [...] Route to Pharmacy Electronically, [facility]/pharmacy #202, Partial fill upon patient request if the p... Start Date: 08/31/22 Status: Ordered Flonase 50 mcg/inh nasal spray See Instructions, 2 sprays Nares twice daily x 1 week, then once daily x 1-2 weeks until symptoms improve, # 16 Gm, 0 Refills, Maintenance, 02/28/21 16:31:00 EDT, [place], [facility]/pharmacy #202, Partial fill upon patient request if the prescription is for... Start Date: 02/28/21 Status: Ordered fluconazole 200 mg oral tablet 2 tablet = 400 mg, By Mouth, Daily, for 6 week(s), # 84 tablet, 0 Refills, Acute 10/12/22 13:28:00 EDT, 08/31/22 13:28:00 EST, Tablet, [facility]/pharmacy #202, Partial fill upon patient request if the prescription is for a schedule II opioid drug., 157, cm... Start Date: 08/31/22 Stop Date: 10/12/22 Status: Ordered FLUoxetine 20 mg oral capsule See Instructions, TAKE 1 CAPSULE BY MOUTH EVERY DAY, # 90 capsule, Refills 1, Maintenance, 06/13/2215:26:00 EST, Instructions Replace Required Details, Route to Pharmacy Electronically, [facility], 158, cm, 06/09/22 11:21:00 EST, Height, 143, kg... Start Date: 06/13/22 Status: Ordered furosemide 20 mg oral tablet 1, tablet, By Mouth, Daily, MAY REPEAT IF NEEDED IN 2 HOURS, # 30 tablet, Refills 0, Maintenance, 09/26/22 15:09:00 EST, Route to Pharmacy Electronically, [facility] 224[facility], 157, cm, 09/13/22 15:58:00 EST, Height, 145, kg, 08/29/22 20:13:00 EST, Dry Weight Start Date: 09/26/22 Status: Ordered gabapentin 300 mg oral capsule 600 mg, 2, capsule, By Mouth, 3 times a day, # 180 capsule, Refills 3, Tot. Refills 3, Maintenance,08/25/22 22:35:00 EST, [facility] fill upon patient request if the prescription is for a schedule II... Start Date: 08/25/22 Status: Ordered levothyroxine 0.137 mg oral tablet 1 tablet = 137 mcg, By Mouth, Daily, 1 tab on days 1-6, take 2 tabs on day 7, # 102 tablet, 1 Refills, Maintenance, 07/03/22 14:41:00 EST, Tablet[facility] Partial fill upon patient request [...] tablet, 3 Refills, Maintenance, 07/17/22 19:56:00 EST, [facility]/pharmacy #2024, 158, cm, 07/13/22 13:46:00 EST, [...] 09/05/22 16:29:00 EST, [facility] upon patient request if the prescription is fo... Start Date: 09/05/22 Stop Date: 09/12/22 Status: Ordered traMADol 50 mg oral tablet See Instructions, 2 tab po qam and one tab po q pm prn moderate to severe pain. 28 days. mass pat ok, # 81 tablet, 0 Refills, Maintenance, 09/21/22 16:44:00 EST, [facility]/pharmacy #2024, 157, cm, 09/13/2314:58:00 EST, Height, 145, kg, 08/29/22 20:13:00 E... Start Date: 09/21/22 Status: Ordered zolpidem 10 mg oral tablet 1 tablet = 10 mg, By Mouth, Daily at bedtime, PRN for sleep, for 30 days, masspat check may fill less, # 30 tablet, 0 Refills, Acute 11/01/22 17:14:00 EDT, 10/02/22 17:14:00 EST, Tablet, [facility]/pharmacy#2024, 157, cm, 09/13/22 15:58:00 EST, Height, 145... Start Date: 10/02/22 Stop Date: 11/01/22 Status: Ordered zolpidem 10 mg oral tablet 1 tablet = 10 mg, By Mouth, Daily at bedtime, PRN for sleep, for 30 days, masspat check may fill less, # 30 tablet, 0 Refills, Acute 11/20/22 16:47:00 EDT, 10/21/22 16:47:00 EDT, Tablet, [facility]/pharmacy#2024, 157, cm, 09/13/22 15:58:00 EST, Height, 145... [...] Care Physician Member Role: PCP Address: Address: [address] [place] [id number] Name: Hemalatha Lucas RN Position: [facility] RN Member Role: Primary Care Nurse Name: Lauren Mack RN Position: [facility] AMB Nurse Member Role: Primary Care Nurse Name: Madelaine Ruiz RN Position: [facility] RN Member Role: Primary Care Nurse Name: Lora Santiago RN Position: [facility] RN Member Role: Primary Care Nurse Name: [...] Member Role: Primary Care Nurse Name: Nessa Bonilal RN Position: [facility] Hospital Ambulance Attendant Member Role: Primary Care Nurse Care Team Related Persons Name: DINESH SARGENT Address: home [address] [place] [address] Name: BON DE Address: home [address] [address]
--- OUTSIDE RECORDS SUMMARY | 2024-06-24 14:17 | XMS_ITS | Continuity of Care Document ---
Author Organization [facility] Address [address] [place] [address]- Care Team Providers Care Business Employment Specialist Name Role Phone Vivi HENNING, Celestina Givens Primary Care Physician [facility] 12[facility]19[facility]22 - 01/18/23 [facility] [address] [place] [address]- Allergies, Adverse Reactions, Alerts No Known Allergies Immunizations Given and Recorded Vaccine Date Status Refusal Reason tetanus/diphtheria/pertussis, acel(Tdap) 1 08/21/22 Given tetanus/diphtheria/pertussis, acel(Tdap) 2 08/13/12 Given [id number] 12y+ bivalent booster vax 06/14/22 Recorded influenza [...] inactivated 6 07/31/12 Gi hali SARS-CoV-2 mRNA (zqxkkcp-aadx-mqxha) vax 02/14/22 Recorded SARS-CoV-2 (COVID-19) mRNA BNT-162b2 vac 05/06/21 Given SARS-CoV-2 (COVID-19) mRNA BNT-162b2 vac 11/04/20 Recorded SARS-CoV-2 (COVID-19) mRNA BNT-162b2 vac 10/14/20 Recorded pneumococcal 23-valent vaccine 7 04/07/19 Given 1Result Comment: [facility]# [id number] 2Admin Note: VIM dated 08/22/11 GIVEN TODAY 3Result Comment: [facility]# [id number] 4Result Comment: [05/25/2018] [facility] lot number [id number] exp 01/26/2019 [facility] [id number] 5Result Comment: [08/20/2017] [facility] [id number] 6Admin Note: VIM dated 01/29/12 GIVEN TODAY 7Result Comment: [facility]#[id number] Medications acetaminophen 500 mg oral capsule 2 [...] Stop, 04/10/2215:14:00 EDT, Route to Pharmacy Electronically, [id number], [facility]/pharmacy #2025, 158, cm, 04/10/22 14:56:00 EDT, Height, 143,... Start Date: 04/10/22 Status: Ordered amLODIPine 10 mg oral tablet 1 tablet, By Mouth, Daily, # 90 tablet, 0 Refills, Maintenance, 10/23/22 12:47:00 EDT, [facility] 125[facility], 157, cm, 09/13/22 15:58:00 EST, Height, 145, kg, 08/29/22 20:13:00 EST, Dry Weight Start Date: 10/23/22 Status: Ordered budesonide-formoterol 80 mcg-4.5 mcg/inh inhalation aerosol with adapter 2, puffs, Inhalation, 2 times a day, PRN, use with spacer chamber, rinse mouth and throat after use, j44.9, # 1 each, Refills 6, Tot. Refills 6, Maintenance, 12/08/22 12:55:00 EDT, Aerosol, Route to Pharmacy Electronically, [id number]... Start Date: 12/08/22 Status: Ordered Compression Stockings [...] Gm, 1 Refills, Maintenance, 01/08/23 9:36:00EDT, [facility] 68564, 50, APPLY TOPICALLY 4 TIMES A DAY, 157, cm, 12/08/22 14:27:00 EDT, Height, 145, kg, 08/29/22 20:13:00 EST, Dry Weight Start Date: 01/08/23 Status: Ordered docusate sodium 100 mg oral capsule 100 mg, 1, capsule, By Mouth, 2 times a day, PRN, # 20 capsule, Refills 0, Tot. Refills 0, Maintenance, as needed for constipation, 08/31/22 13:30:00 EST, Route to Pharmacy Electronically, [facility]/pharmacy #2024, Partial fill upon patient request if the p... Start Date: 08/31/22 Status: Ordered Flonase 50 mcg/inh nasal spray See Instructions, 2 sprays Nares twice daily x 1 week, then once daily x 1-2 weeks until symptoms improve, # 16 Gm, 0 Refills, Maintenance, 02/28/21 16:31:00 EDT, [place], [facility]/pharmacy #2025, Partial fill upon patient request if the prescription is for... Start Date: 02/28/21 Status: Ordered FLUoxetine 10 mg oral capsule 10 mg, 1, capsule, By Mouth, Daily, to be taken with 20mg capsules to equal 30mg daily, # 90 capsule, Refills 0, Tot. Refills 0, Maintenance, 01/18/23 9:13:00 EDT, Route to Pharmacy Electronically, [facility]/pharmacy #8915, Partial fill upon patient [...] 22:18:00 EDT, Route to Pharmacy Electronically, [facility] 52760, 157, cm, 10/30/22 13:53:00 EDT, Height, 145, kg, 08/29/22 20:13:00 EST, Dry Weight Start Date: 11/29/22 Status: Ordered gabapentin 300 mg oral capsule 600 mg, 2, capsule, By Mouth, 3 times a day, # 180 capsule, Refills 3, Tot. Refills 3, Maintenance,08/25/22 22:35:00 EST, Route to Pharmacy Electronically, [facility]/pharmacy #2025, Partial fill upon patient [...] 14:41:00 EST, Tablet, [facility]/pharmacy #2024, [...] 3 Refills, Maintenance, 10/18/22 21:31:00 EDT, [facility] 316[facility], 157, cm, 09/13/22 15:58:00 EST,Height, 145, kg, [...] 16:29:00 EST, Route to Pharmacy Electronically, [facility]/pharmacy #2024, Partialfill upon patient request [...] Primary Care Member Role: PCP Address: Address: [address] [place] [address] Name: Hemalatha Lucas RN Position: [facility] RN Member Role: Primary Care Nurse Name: Lauren Mack RN Position: [facility] AMB Nurse Member Role: Primary Care Nurse Name: Madelaine Ruiz RN Position: [facility] RN Member Role: Primary Care Nurse Name: Lora Santiago RN Position: [facility] RN Member Role: Primary Care Nurse Name: Mayco Ro RN Position: [facility] RN Member Role: Primary Care Nurse Name: Heydi Potts RN Position: [facility] RN Member Role: Primary Care Nurse Name: Janice Romano LPN Position: [facility] RN Member Role: Primary Care Nurse Name: Nadya Low RN Position: [facility] RN Member Role: Primary Care Nurse Name: Mirna Greenfield RN Position: [facility] RN Member Role: Primary Care Nurse Name: Nessa Bonilla RN Position: [facility] Merchandise Support Associate Member Role: Primary Care Nurse Care Team Related Persons Name: ROSETTADINESH Address: home [address] [address] Name: BON DE Address: home [address] [address]
--- OUTSIDE RECORDS SUMMARY | 2024-06-24 14:17 | XMS_ITS | Continuity of Care Document ---
Author Organization [facility] Address [address] [place] [address]- Care Team Providers Care Certified Medical Transcriptionist Name Role Phone Vivi HENNING, Celestina Givens Primary Care Physician [facility]23 - 05/02/23 [facility] [address] [place] [address]- Allergies, Adverse Reactions, Alerts No Known Allergies Immunizations Given and Recorded Vaccine Date Status Refusal Reason tetanus/diphtheria/pertussis, acel(Tdap) 1 08/21/22 Given tetanus/diphtheria/pertussis, acel(Tdap) 2 08/13/12 Given BIVW-NvB-3xYWB 12y+ bivalent booster vax 06/14/22 Recorded influenza [...] inactivated 6 07/31/12 Gi hali SARS-CoV-2 mRNA (bbayjkb-upsp-pecar) vax 02/14/22 Recorded SARS-CoV-2 (COVID-19) mRNA BNT-162b2 vac 05/06/21 Given SARS-CoV-2 (COVID-19) mRNA BNT-162b2 vac 11/04/20 Recorded SARS-CoV-2 (COVID-19) mRNA BNT-162b2 vac 10/14/20 Recorded pneumococcal 23-valent vaccine 7 04/07/19 Given 1Result Comment: [facility]# [id number] 2Admin Note: VIM dated 08/22/11 GIVEN TODAY 3Result Comment: [facility]# [id number] 4Result Comment: [05/25/2018] [facility] lot number [id number] exp 01/26/2019 [facility] [id number] 5Result Comment: [08/20/2017] [facility] [id number] 6Admin Note: VIM dated 01/29/12 GIVEN TODAY 7Result Comment: [facility]#[id number] Medications acetaminophen 500 mg oral capsule 2 [...] Stop, 04/10/2215:14:00 EDT, Route to Pharmacy Electronically, [id number], [facility]/pharmacy #2025, 158, cm, [...] 1 Refills, Maintenance, 01/08/23 9:36:00EDT, [facility], 50, APPLY TOPICALLY 4 TIMES A DAY, [...] Gm, 0 Refills, Maintenance, 02/28/21 16:31:00 EDT, [place], [facility]/pharmacy #2024, Partial fill [...] 7:25:00 EDT, [facility] 12761, 157, cm, 12/08/22 14:27:00 EDT, Height, 145, kg, 08/29/22 20:13:00 EST, Dry... Start Date: 02/27/23 Status: Ordered meclizine 25 mg oral tablet See Instructions, PRN Dizziness, 1 tablet By Mouth 3 times a day, # 30 tablet, 0 Refills, Maintenance, 02/27/23 10:43:00 EDT, [facility]/pharmacy #2024, Partial fill upon patient request if the prescriptionis for a schedule II opioid drug., 157, cm, ... Start Date: 02/27/23 Status: Ordered meloxicam 15 mg oral tablet See Instructions, TAKE 1 TABLET BY MOUTH DAILY WITH FOOD. LABS NEEDED FOR FURTHER REFILLS, # 30 tablet, 1 Refills, Maintenance, 05/01/23 14:45:00 EDT, [facility]/pharmacy #2025, 157, cm, 03/14/23 11:02:00 [...] tablet, 0 Refills, Maintenance, 02/20/23 17:17:00 EDT, [facility]/pharmacy #5, 157, cm, 12/08/2313:27:00 EDT, [...] Primary Care Member Role: PCP Address: Address: [address] [place] [address] Name: Hemalatha Lucas RN Position: [facility] RN [...] Heydi Potts RN Position: [facility] RN Member Role: Primary Care Nurse Name: Janice Romano LPN Position: [facility] RN Member Role: Primary Care Nurse Name: Nadya Low RN Position: [facility] RN Member Role: Primary Care Nurse Name: Mirna Greenfield RN Position: [facility] RN Member Role: Primary Care Nurse Name: Nessa Bonilla RN Position: [facility] Hospital Dispatch Supervisor Member Role: Primary Care Nurse Care Team Related Persons Name: DINESH SARGENT Address: [place] [address] Name: BON DE Address: home [address] [place] [address]
--- OUTSIDE RECORDS SUMMARY | 2024-06-24 14:17 | XMS_ITS | Continuity of Care Document ---
Author Organization [facility] Address [address] [place] [address]- Care Team Providers Care Instructor Technical Training Name Role Phone Florentino AHN, Edler Hannah Primary Care Physician [facility]20 [facility] [address] [place], [place] [address] Allergies, Adverse Reactions, Alerts Substance Reaction [...] Given 1Result Comment: [facility]# [id number] 2Result Comment: [05/25/2018] [facility] lot number [id number] exp 01/26/2019 [facility] [id number] 3Result Comment: [08/20/2017] [facility] [id number] 4Admin Note: VIM dated 01/29/12 GIVEN TODAY 5Result Comment: [facility]#[id number] 6Admin Note: VIM dated 08/22/11 GIVEN TODAY [...] 6 HOURS NEEDED FOR WHEEZE, [facility]/pharmacy #2024 Start Date: 05/27/19 Status: Ordered diclofenac 1% topical gel 1 applicator, Topically, 4 times a day, # 100 Gm, 0 Refills, Maintenance, 06/08/20 15:07:00 EST, Gel, [facility]/pharmacy #2024, 161, cm, 06/08/20 13:48:00 EST, Height Start Date: 06/08/20 Status: Ordered FLUoxetine 20 mg oral capsule 20 mg, 1, capsule, By Mouth, Daily, # 30 capsule, Refills 5, Tot. Refills 5, Maintenance, 05/13/20 9:34:00 EDT, Route to Pharmacy Electronically, [facility]/pharmacy #2024, replacing 10mg dose, 161, cm, 05/13/20 8:28:00 EDT, Height Start Date: 05/13/20 Status: Ordered levothyroxine 0.137 mg oral tablet 1 tablet = 137 mcg, By Mouth, Daily, # 30 tablet, 3 Refills, Maintenance, 06/08/20 15:09:00 EST, Tablet, [facility]/pharmacy #2024, 161, cm, 06/08/20 13:48:00 EST, Height Start Date: 06/08/20 Stop Date: 10/06/20 Status: Ordered levothyroxine 125 mcg (0.125 mg) oral tablet 1 tablet = 125 mcg, By Mouth, Daily, # 30 tablet, 5 Refills, Maintenance, 05/13/20 9:34:00 EDT, Tablet, [facility]/pharmacy #2024, 161, cm, 05/13/20 8:28:00 EDT, Height Start Date: 05/13/20 Status: Ordered meloxicam 15 mg oral tablet 1 tablet = 15 mg, By Mouth, Daily, Take w food., # 30 tablet, 1 Refills, Maintenance, 07/08/20 11:31:00 EST, Tablet, [facility]/pharmacy #2025, Labs needed for further refills, 161, [...] EST, Route to Pharmacy Electronically, [facility]/pharmacy #2024, 161, cm, 08/04/19 14:44:00 EST, Height [...] 09/10/20 9:34:00 EST, 05/13/20 9:34:00 EDT, Tablet, [facility]/pharmacy #2024, 161, cm, 05/13/20 8:28:00 EDT, Height [...]
--- OUTSIDE RECORDS SUMMARY | 2024-06-24 14:17 | XMS_ITS | Continuity of Care Document ---
Author Organization [facility] Address [address] [place] [id number]- Care Team Providers Care Safety Relief Valve Technician Name Role Phone Vivi HENNING, Celestina Givens Primary Care Physician [facility] 12/08/22 - 01/07/23 [facility] [address] [place] [id number] Allergies, Adverse Reactions, Alerts No Known Allergies Immunizations Given and Recorded Vaccine Date Status Refusal Reason tetanus/diphtheria/pertussis, acel(Tdap) 1 08/21/22 Given tetanus/diphtheria/pertussis, acel(Tdap) 2 08/13/12 Given [id number] 12y+ bivalent booster vax 06/14/22 Recorded influenza [...] inactivated 6 07/31/12 Gi hali SARS-CoV-2 mRNA (feaonov-ibsu-hdhit) vax 02/14/22 Recorded SARS-CoV-2 (COVID-19) mRNA BNT-162b2 vac 05/06/21 Given SARS-CoV-2 (COVID-19) mRNA BNT-162b2 vac 11/04/20 Recorded SARS-CoV-2 (COVID-19) mRNA BNT-162b2 vac 10/14/20 Recorded pneumococcal 23-valent vaccine 7 04/07/19 Given 1Result Comment: [facility]# [id number] 2Admin Note: VIM dated 08/22/11 GIVEN TODAY 3Result Comment: [facility]# [id number] 4Result Comment: [05/25/2018] [employer] lot number [id number] exp 01/26/2019 [facility] [id number] 5Result Comment: [08/20/2017] [facility] [id number] 6Admin Note: VIM dated 01/29/12 GIVEN TODAY 7Result Comment: [facility]#[id number] Medications acetaminophen 500 mg oral capsule 2 [...] Stop, 04/10/2215:14:00 EDT, Route to Pharmacy Electronically, [id number], [facility]/pharmacy #2025, 158, cm, 04/10/22 14:56:00 EDT, Height, 143,... Start Date: 04/10/22 Status: Ordered amLODIPine 10 mg oral tablet 1 tablet, By Mouth, Daily, # 90 tablet, 0 Refills, Maintenance, 10/23/22 12:47:00 EDT, [facility], 157, cm, 09/13/22 15:58:00 EST, Height, 145, kg, 08/29/22 20:13:00 EST, Dry Weight Start Date: 10/23/22 Status: Ordered budesonide-formoterol 80 mcg-4.5 mcg/inh inhalation aerosol with adapter 2, puffs, Inhalation, 2 times a day, PRN, use with spacer chamber, rinse mouth and throat after use, j44.9, # 1 each, Refills 6, Tot. Refills 6, Maintenance, 12/08/22 12:55:00 EDT, Aerosol, Route to Pharmacy Electronically, [id number]... Start Date: 12/08/22 Status: Ordered Compression Stockings [...] 100 Gm, 1 Refills, 09/22/22 7:28:00 EST, [facility]/pharmacy #2024, 25, APPLY TOPICALLY 4 TIMES A [...] 13:30:00 EST, Route to Pharmacy Electronically, [facility]/pharmacy #2024, Partial fill upon patient request if the p... Start Date: 08/31/22 Status: Ordered Flonase 50 mcg/inh nasal spray See Instructions, 2 sprays Nares twice daily x 1 week, then once daily x 1-2 weeks until symptoms improve, # 16 Gm, 0 Refills, Maintenance, 02/28/21 16:31:00 EDT, [place], [facility]/pharmacy #2024, Partial fill upon patient request if [...] 11/29/22 22:18:00 EDT, Route to Pharmacy Electronically, [facility], 157, cm, 10/30/22 13:53:00 EDT, Height, 145, kg, 08/29/22 20:13:00 EST, Dry Weight Start Date: 11/29/22 Status: Ordered gabapentin 300 mg oral capsule 600 mg, 2, capsule, By Mouth, 3 times a day, # 180 capsule, Refills 3, Tot. Refills 3, Maintenance,08/25/22 22:35:00 EST, Route to Pharmacy Electronically, [facility]/pharmacy #2024, Partial fill upon patient request if [...] Refills, Maintenance, 07/03/22 14:41:00 EST, Tablet, [facility]/pharmacy #2024, Partial fill upon patient request if the prescription is for a schedule II opioid drMelonie.. Start Date: 07/03/22 Status: Ordered meclizine 25 mg oral tablet See Instructions, PRN Dizziness, 1 tablet By Mouth 3 times a day, # 30 tablet, 0 Refills, Maintenance, 05/11/21 13:11:00 EDT, [facility]/pharmacy #2025, Partial fill upon patient request if the prescriptionis for a schedule II opioid drug., 160.02, cm, 10/0... Start Date: 05/11/21 Status: Ordered meloxicam 15 mg oral tablet See Instructions, TAKE 1 TABLET BY MOUTH DAILY WITH FOOD. LABS NEEDED FOR FURTHER REFILLS, # 30 tablet, 3 Refills, Maintenance, 10/18/22 21:31:00 EDT, [facility], 157, cm, 09/13/22 15:58:00 EST,Height, 145, kg, [...] 16:29:00 EST, Route to Pharmacy Electronically, [facility]/pharmacy #2025, Partialfill upon patient request if the [...] Name: Celestina Trinidad MD Position: [facility] Physician - Primary Care Member Role: PCP Address: Address: [address] [place] [address] Name: Hemalatha Lucas RN [facility] Heydi Potts RN Position: [facility] RN Member Role: Primary Care Nurse Name: Janice Romano LPN Position: [facility] RN Member Role: Primary Care Nurse Name: Nadya Low RN Position: [facility] RN Member Role: Primary Care Nurse Name: Mirna Greenfield RN Position: [facility] RN Member Role: Primary Care Nurse Name: Nessa Bonilla RN Position: [facility] Hospital Gluer Machine Setup Operator Member Role: Primary Care Nurse Care Team Related Persons Name: ROSETTADINESH Address: home [address] [place] [address] Name: BON DE Address: home [address] [place] [id number]
--- OUTSIDE RECORDS SUMMARY | 2024-06-24 14:17 | XMS_ITS | Continuity of Care Document ---
Author Organization [facility] Address [address] [place] [address]- Care Team Providers Care Coding Consultant Name Role Phone Vivi HENNING, Celestina Givens Primary Care Physician [facility] Date[facility]s): 10/05/22 - 11/04/22 [facility] [address] [place] [address]- Allergies, Adverse Reactions, Alerts No Known Allergies Immunizations Given and Recorded Vaccine Date Status Refusal Reason tetanus/diphtheria/pertussis, acel(Tdap) 1 08/21/22 Given tetanus/diphtheria/pertussis, acel(Tdap) 2 08/13/12 Given [id number] 12y+ bivalent booster vax 06/14/22 Recorded influenza [...] inactivated 6 07/31/12 Gi hali SARS-CoV-2 mRNA (ujaknsk-ohqm-nhboo) vax 02/14/22 Recorded SARS-CoV-2 (COVID-19) mRNA BNT-162b2 vac 05/06/21 Given SARS-CoV-2 (COVID-19) mRNA BNT-162b2 vac 11/04/20 Recorded SARS-CoV-2 (COVID-19) mRNA BNT-162b2 vac 10/14/20 Recorded pneumococcal 23-valent vaccine 7 04/07/19 Given 1Result Comment: [facility]# [id number] 2Admin Note: VIM dated 08/22/11 GIVEN TODAY 3Result Comment: [facility] [place] 2]# [id number] 4Result Comment: [05/25/2018] [facility] lot number [id number] exp 01/26/2019 [facility] [place]note 2] 42243-289-89 5Result Comment: [08/20/2017] [facility] [place]note 2] [id number] 6Admin Note: VIM dated 01/29/12 GIVEN TODAY 7Result Comment: [facility]#[id number] Medications acetaminophen 500 mg oral capsule 2 [...] Stop, 04/10/2215:14:00 EDT, Route to Pharmacy Electronically, [id number], [facility]/pharmacy #2025, 158, cm, 04/10/22 14:56:00 EDT, Height, 143,... Start Date: 04/10/22 Status: Ordered amLODIPine 10 mg oral tablet 1 tablet, By Mouth, Daily, # 90 tablet, 0 Refills, Maintenance, 10/23/22 12:47:00 EDT, [facility] STORE 130[facility], 157, cm, 09/13/22 15:58:00 EST, Height, 145, kg, 08/29/22 20:13:00 EST, Dry Weight Start Date: 10/23/22 Status: Ordered budesonide-formoterol 80 mcg-4.5 mcg/inh inhalation aerosol with adapter 2, puffs, Inhalation, 2 times a day, PRN, use with spacer chamber, rinse mouth and throat after use, # 10.2 Gm, Refills 5, Tot. Refills 5, Maintenance, 09/12/22 11:06:00 EST, Aerosol, Route to Pharmacy Electronically, [id number]... Start Date: 09/12/22 Status: Ordered cilostazol 100 mg oral tablet 1 tablet, By Mouth, 2 times a day, # 60 tablet, 0 Refills, Maintenance, 10/23/22 12:47:00 EDT, [facility], 157, cm, 09/13/22 15:58:00 EST, Height, 145, [...] 08/31/22 13:30:00 EST, Route to Pharmacy Electronically, [facility]/pharmacy #2025, Partial fill upon patient request if the p... Start Date: 08/31/22 Status: Ordered Flonase 50 mcg/inh nasal spray See Instructions, 2 sprays Nares twice daily x 1 week, then once daily x 1-2 weeks until symptoms improve, # 16 Gm, 0 Refills, Maintenance, 02/28/21 16:31:00 EDT, [place], [facility]/pharmacy #2025, Partial fill upon patient request if the prescription is for... Start Date: 02/28/21 Status: Ordered FLUoxetine 20 mg oral capsule 1, capsule, By Mouth, Daily, # 90 capsule, Refills 1, Maintenance, 10/23/22 12:47:00 EDT, Route to Pharmacy Electronically, [facility], 157, cm, 09/13/22 15:58:00 EST, Height, 145, kg, 08/29/22 20:13:00 EST, Dry Weight Start Date: 10/23/22 Status: Ordered furosemide 20 mg oral tablet 1, tablet, By Mouth, Daily, MAY REPEAT IF NEEDED IN 2 HOURS, # 30 tablet, Refills 0, Maintenance, 10/29/22 21:42:00 EDT, Route to Pharmacy Electronically, [facility], 157, cm, 09/13/22 15:58:00 EST, Height, 145, kg, 08/29/22 20:13:00 EST, Dry Weight Start Date: 10/29/22 Status: Ordered gabapentin 300 mg oral capsule 600 mg, 2, capsule, By Mouth, 3 times a day, # 180 capsule, Refills 3, Tot. Refills 3, Maintenance,08/25/22 22:35:00 EST, Route to Pharmacy Electronically, [facility]/pharmacy #2025, Partial fill upon patient [...] 1 Refills, Maintenance, 07/03/22 14:41:00 EST, Tablet, [facility]/pharmacy #202, Partial fill upon patient request if the prescription is for a schedule II opioid dr... Start Date: 07/03/22 Status: Ordered meclizine 25 mg oral tablet See Instructions, PRN Dizziness, 1 tablet By Mouth 3 times a day, # 30 tablet, 0 Refills, Maintenance, 05/11/21 13:11:00 EDT, [facility]/pharmacy #202, Partial fill upon patient request if the prescriptionis for a schedule II opioid drug., 160.02, cm, 10/0... Start Date: 05/11/21 Status: Ordered meloxicam 15 mg oral tablet See Instructions, TAKE 1 TABLET BY MOUTH DAILY WITH FOOD. LABS NEEDED FOR FURTHER REFILLS, # 30 tablet, 3 Refills, Maintenance, 10/18/22 21:31:00 EDT, [facility], 157, cm, 09/13/22 15:58:00 EST,Height, 145, kg, [...] 09/05/22 16:29:00 EST, Route to Pharmacy Electronically, [facility]/pharmacy #2025, Partialfill upon patient request if [...] 11/20/22 16:47:00 EDT, 10/21/22 16:47:00 EDT, Tablet, [facility]/pharmacy#5, 157, cm, 09/13/22 15:58:00 EST, Height, [...] Team Personnel Name: Celestina Trinidad MD Position: [facility] Primary Care Physician Member Role: PCP Address: Address: [address] [place] [address] Name: Hemalatha Lucas RN Position: [facility] RN Member Role: Primary Care Nurse Name: Lauren Mack RN Position: [facility] AMB Nurse Member Role: Primary Care Nurse Name: Madelaine Ruiz RN Position: [facility] RN Member Role: Primary Care Nurse Name: Lora Santiago RN Position: [facility] RN Member Role: Primary Care Nurse Name: Mayco Ro RN Position: [facility] RN Member Role: Primary Care Nurse Name: Heydi Potts RN Position: [facility] RN Member Role: Primary Care Nurse Name: Janice Romano LPN Position: [facility] RN Member Role: Primary Care Nurse Name: Nadya Low RN Position: [facility] RN Member Role: Primary Care Nurse Name: Mirna Greenfield RN Position: [facility] RN Member Role: Primary Care Nurse Name: Nessa Bonilla RN Position: [facility] Towboat Operator Member Role: Primary Care Nurse Care Team Related Persons Name: ROSETTADINESH Address: home [address] [place] [address] Name: BON DE Address: home [address] [address]
--- OUTSIDE RECORDS SUMMARY | 2024-06-24 14:17 | XMS_ITS | Continuity of Care Document ---
Author Organization [facility] Geovanna [facility] Address [address] [place] [address] [address] [place] [address]- Care Team Providers Care Cash Applications Associate Name Role Phone Celestina Trinidad MD Primary Care Physician [place] [facility] 08/08[place]22 [facility] [address] [place] [address]- Attending Physician: Jay Stafford MD Referring Physician: Celestina Trinidad MD Allergies, Adverse Reactions, Alerts No Known Allergies Immunizations Given and Recorded Vaccine Date Status Refusal Reason [id number] 12y+ bivalent booster vax 06/14/22 Recorded influenza [...] vaccine, inactivated 07/31/12 Gi hali SARS-CoV-2 mRNA (ukibjsp-ntox-frbfn) vax 02/14/22 Recorded SARS-CoV-2 (COVID-19) mRNA BNT-162b2 vac 05/06/21 Given SARS-CoV-2 (COVID-19) mRNA BNT-162b2 vac 11/04/20 Recorded SARS-CoV-2 (COVID-19) mRNA BNT-162b2 vac 10/14/20 Recorded pneumococcal 23-valent vaccine 5 04/07/19 Given tetanus/diphtheria/pertussis, acel(Tdap) 6 08/13/12 Given 1Result Comment: [facility]# [id number] 2Result Comment: [05/25/2018] [facility] lot number [id number] exp 01/26/2019 [facility] 62061-477-90 3Result Comment: [08/20/2017] [facility] [id number] 4Admin Note: VIM dated 01/29/12 GIVEN TODAY 5Result Comment: [facility]#[id number] 6Admin Note: VIM dated 08/22/11 GIVEN TODAY [...] Stop, 04/10/2215:14:00 EDT, Route to Pharmacy Electronically, [id number], [facility]/pharmacy #2025, 158, cm, 04/10/22 14:56:00 EDT, Height, 143,... Start Date: 04/10/22 Status: Ordered amLODIPine 10 mg oral tablet 1 tablet, By Mouth, Daily, # 90 tablet, 0 Refills, Maintenance, 07/21/22 17:34:00 EST, [facility], 158, cm, 07/21/22 15:09:00 EST, Height, 143, [...] Refills, Maintenance, 08/01/22 16:58:00 EST, Tablet, [facility]/pharmacy #2024, [...] Gm, 1 Refills, 09/19/21 12:51:00 EST, [facility]/pharmacy #2024, 25, APPLY TOPICALLY 4 TIMES A DAY, 160.02, cm, 07/25/21 16:20:00 EST, Height, 143, kg,01/04/21 10:42:00 EDT, Dry Weight Start Date: 09/19/21 Status: Ordered doxycycline hyclate 100 mg oral tablet 1 tablet, By Mouth, 2 times a day, # 20 tablet, 0 Refills, Maintenance, 07/21/22 17:34:00 EST, [facility], 158, cm, 07/21/22 15:09:00 EST, Height, 143, kg, 01/04/21 10:42:00 EDT, Dry Weight Start Date: 07/21/22 Stop Date: 07/31/22 Status: Ordered Flonase 50 mcg/inh nasal spray See Instructions, 2 sprays Nares twice daily x 1 week, then once daily x 1-2 weeks until symptoms improve, # 16 Gm, 0 Refills, Maintenance, 02/28/21 16:31:00 EDT, [place], [facility]/pharmacy #2025, Partial fill upon patient request if the prescription is for... Start Date: 02/28/21 Status: Ordered FLUoxetine 20 mg oral capsule See Instructions, TAKE 1 CAPSULE BY MOUTH EVERY DAY, # 90 capsule, Refills 1, Maintenance, 06/13/2215:26:00 EST, Instructions Replace Required Details, Route to Pharmacy Electronically, [facility], 158, cm, 06/09/22 11:21:00 EST, Height, 143, kg... Start Date: 06/13/22 Status: Ordered gabapentin 300 mg oral capsule 600 mg, 2, capsule, By Mouth, 2 times a day, # 120 capsule, Refills 1, Tot. Refills 1, Maintenance,07/22/22 8:06:00 EST, Route to Pharmacy Electronically, [facility] tablet, 0 Refills, 06/29/22 15:47:00 EST, [facility]/pharmacy #2024, 158, cm,06/09/22 11:21:00 EST, Height, 143, kg, 01/04/21 1... Start Date: 06/29/22 Status: Ordered meclizine 25 mg oral tablet See Instructions, PRN Dizziness, 1 tablet By Mouth 3 times a day, # 30 tablet, 0 Refills, Maintenance, 05/11/21 13:11:00 EDT, [facility]/pharmacy #2024, Partial fill upon patient request if the prescriptionis for a schedule II opioid drug., 160.02, cm, 10/0... Start Date: 05/11/21 Status: Ordered meloxicam 15 mg oral tablet See Instructions, TAKE 1 TABLET BY MOUTH DAILY WITH FOOD. LABS NEEDED FOR FURTHER REFILLS, # 30 tablet, 3 Refills, Maintenance, 07/17/22 19:56:00 EST, [facility]/pharmacy #2024, 158, cm, 07/13/22 13:46:00 EST, Height, 143, kg, 01/04/21 10:42:00 EDT, Dry Weight Start Date: 07/17/22 Status: Ordered oxyCODONE 10 mg oral tablet 1 tablet = 10 mg, By Mouth, Every 6 hours, PRN as needed for pain, # 20 tablet, 0 Refills, Maintenance, 08/01/22 16:58:00 EST, Tablet, [facility]/pharmacy #2024, [...] 09/27/22 16:00:00 EST, 08/01/22 21:26:00EST, [place], [facility]/pharmacy #2024, Partial fill [...] oldest [Reference Range]: 1 Height 159 cm (08/01/22 2:14 PM) Social History Social History Type Response Smoking Status Former smoker, quit more than 30 days ago; Other: smoked up to pack a day x 25 years; entered on: 11/14/21 Sex Patient Care team information Care Team Personnel Name: Celestina Trinidad MD Position: [facility] Primary Care Physician Member Role: PCP Address: Address: [address] [place] [id number] Name: Lauren Mack RN Position: [facility] AMB Nurse Member Role: Primary Care Nurse Name: Lora Santiago RN Position: [facility] RN Member Role: Primary Care Nurse Name: Mayco Ro RN Position: [facility] RN Member Role: Primary Care Nurse Name: Heydi Potts RN Position: [facility] RN Member Role: Primary Care Nurse Name: Nadya Low RN Position: [facility] RN Member Role: Primary Care Nurse Name: Mirna Greenfield RN Position: [facility] RN Member Role: Primary Care Nurse Name: Nessa Bonilla RN Position: [facility] Land Sales Agent Member Role: Primary Care Nurse Care Team Related Persons Name: DINESH SARGENT Address: home [address] [place] [address] Name: BON DE Address: home [address] [place] [id number]
--- OUTSIDE RECORDS SUMMARY | 2024-06-24 14:17 | XMS_ITS | Continuity of Care Document ---
Author Organization [facility] Address [address] [place] [address]- Care Team Providers Care Electric Needle Specialist Name Role Phone Vivi HENNING, Celestina Givens Primary Care Physician [facility] Date[facility] 06[facility]23 - 07/05/23 [facility] [address] [place] [address]- Allergies, Adverse Reactions, Alerts No Known Allergies Immunizations Given and Recorded Vaccine Date Status Refusal Reason tetanus/diphtheria/pertussis, acel(Tdap) 1 08/21/22 Given tetanus/diphtheria/pertussis, acel(Tdap) 2 08/13/12 Given [id number] 12y+ bivalent booster vax 06/14/22 Recorded influenza [...] inactivated 6 07/31/12 Gi hali SARS-CoV-2 mRNA (rbwbdtx-qnne-pqxxg) vax 02/14/22 Recorded SARS-CoV-2 (COVID-19) mRNA BNT-162b2 vac 05/06/21 Given SARS-CoV-2 (COVID-19) mRNA BNT-162b2 vac 11/04/20 Recorded SARS-CoV-2 (COVID-19) mRNA BNT-162b2 vac 10/14/20 Recorded pneumococcal 23-valent vaccine 7 04/07/19 Given 1Result Comment: [facility]# [id number] 2Admin Note: VIM dated 08/22/11 GIVEN TODAY 3Result Comment: [facility]# [id number] 4Result Comment: [05/25/2018] [facility] lot number [id number] exp 01/26/[address] [facility] [id number] 5Result Comment: [08/20/2017] [facility] [id number] 6Admin Note: VIM dated 01/29/12 GIVEN TODAY 7Result Comment: [facility]#[id number] Medications acetaminophen 500 mg oral capsule 2 [...] 05/17/23 16:45:00 EDT, Route to Pharmacy Electronically, [facility]/pharmacy [...] Gm, 0 Refills, Maintenance, 02/28/21 16:31:00 EDT, [place], [facility]/pharmacy #2024, Partial fill upon patient [...] Route to Pharmacy Electronically, [facility]/pharmacy #2025, Partial fill upon patient [...] Maintenance, 02/27/23 7:25:00 EDT, [facility] 49888, 157, cm, 12/08/22 14:27:00 EDT, Height, 145, kg, 08/29/22 20:13:00 EST, Dry... Start Date: 02/27/23 Status: Ordered meclizine 25 mg oral tablet See Instructions, PRN Dizziness, 1 tablet By Mouth 3 times a day, # 30 tablet, 0 Refills, Maintenance, 02/27/23 10:43:00 EDT, [facility]/pharmacy #202, Partial fill upon patient request if the prescriptionis for a schedule II opioid drug., 157, cm, ... Start Date: 02/27/23 Status: Ordered meloxicam 15 mg oral tablet See Instructions, TAKE 1 TABLET BY MOUTH DAILY WITH FOOD. LABS NEEDED FOR FURTHER REFILLS, # 30 tablet, 1 Refills, Maintenance, 05/01/23 14:45:00 EDT, [facility]/pharmacy #2025, 157, cm, 03/14/23 11:02:00 EDT, [...] 05/22/23 9:10:00 EDT, Route to Pharmacy Electronically, [facility]/pharmacy... Start Date: 05/22/23 Status: Ordered Splint [...] Code MRI Safety Implantable Status Assigning Authority [id number] Unknown [id number] Unknown 08/26/24 Unknown Unknown Active GS1 Patient Care team information Care Team Personnel Name: Celestina Tirnidad MD Position: [facility] Physician - Primary Care Member Role: PCP Address: Address: [address] [place] [address] Name: Hemalatha Lucas RN Position: [facility] RN Member Role: Primary Care Nurse Name: Lauren Mack RN Position: [facility] AMB Nurse Member Role: Primary [...] Name: Nessa Bonilla RN Position: [facility] Heavy Cleaner Member Role: Primary Care Nurse Care Team Related Persons Name: DINESH SARGENT Address: home [address] [place] [address] Name: BON DE Address: home [address] [place] [id number]
--- OUTSIDE RECORDS SUMMARY | 2024-06-24 14:17 | XMS_ITS | Continuity of Care Document ---
Author Organization [facility] Address [address] [place] [address]- Care Team Providers Care Car Tracer Name Role Phone Yolanda AHN, Padmaja Pelayo Primary Care Physician [facility] Date[facility]): 09/27/21 - 10/27/21 [facility] [address] [place] [address]- Allergies, Adverse Reactions, Alerts No Known Allergies [...] tetanus/diphtheria/pertussis, acel(Tdap) 6 08/13/12 Given 1Result Comment: [facility]# [id number] 2Result Comment: [05/25/2018] [facility] lot number [id number] exp 01/26/2019 [facility] [phone] 3Result Comment: [08/20/2017] [facility] [id number] 4Admin Note: VIM dated 01/29/12 GIVEN TODAY 5Result Comment: [facility]#[id number] 6Admin Note: VIM dated 08/22/11 GIVEN TODAY [...] Replace Required Details, Route to Pharmacy Electronically, [id number]... Start Date: 09/15/21 Status: Ordered Aerochamber w/Mask [...] 07/25/21 16:53:00 EST, Route to Pharmacy Electronically, [id number], [facility]/pharmacy #5, 160.02, cm, 07/25/21 16:20:00 [...] Gm, 0 Refills, Maintenance, 02/28/21 16:31:00 EDT, [place], [facility]/pharmacy #202, Partial fill upon patient request if the prescription is for... Start Date: 02/28/21 Status: Ordered FLUoxetine 10 mg oral capsule 10 mg, 1, capsule, By Mouth, Daily, Take with 20mg capsule for total of 30mg daily, # 90 capsule, Refills 1, Tot. Refills 1, Maintenance, 09/19/21 12:45:00 EST, Route to Pharmacy Electronically, [facility]/pharmacy #2024, Partial fill upon patient request if... Start Date: 09/19/21 Status: Ordered FLUoxetine 20 mg oral capsule 20 mg, 1, capsule, By Mouth, Daily, Take with Fluoxetine 10mg for a total of 30mg, # 90 capsule, Refills 1, Tot. Refills 1, Maintenance, 05/04/21 16:44:00 EDT, Route to Pharmacy Electronically, [facility]/pharmacy #2024, replacing 10mg dose, 160.02, cm, 08/0... Start Date: 05/04/21 Status: Ordered levothyroxine 0.137 mg oral tablet See Instructions, Take 1 tablet by mouth on days 1-6, then take 2 tablets by mouth on day 7, # 121 tablet, 5 Refills, Maintenance, 12/07/20 9:46:00 EDT, [facility]/pharmacy #2024, 160.02, cm, 10/19/20 11:04:00 EDT, Height, 156.81, kg, 10/19/20 11:04:00 EDT,... Start Date: 12/07/20 Status: Ordered meclizine 25 mg oral tablet See Instructions, PRN Dizziness, 1 tablet By Mouth 3 times a day, # 30 tablet, 0 Refills, Maintenance, 05/11/21 13:11:00 EDT, [facility]/pharmacy #202, Partial fill upon patient request if the prescriptionis for a schedule II opioid drug., 160.02, cm, 10/0... Start Date: 05/11/21 Status: Ordered meloxicam 15 mg oral tablet 1 tablet, By Mouth, Daily, WITH FOOD., # 30 tablet, 3 Refills, 09/19/21 12:46:00 EST, [facility]/pharmacy #5, 160.02, cm, 07/25/21 16:20:00 [...] 13:47:00 EST, Aerosol, Route to Pharmacy Electronically, [id number], [facility]/pharmacy #2024, 160.02, cm, 07/25/21 16:20:00 EST, [place]... Start Date: 10/03/21 Status: Ordered traMADol 50 mg oral tablet 2 tablet = 100 mg, By Mouth, Every 12 hours, as needed for pain masspat checked, # 112 tablet, 0 Refills, Maintenance, 09/20/21 10:55:00 EST, [facility]/pharmacy #2024, 160.02, cm, 07/25/21 16:20:00 EST, Height, 143, kg, 01/04/21 10:42:00 EDT, Dry Weight Start Date: 09/20/21 Stop Date: 10/18/21 Status: Ordered zolpidem 10 mg oral tablet 1 tablet = 10 mg, By Mouth, Daily at bedtime, PRN for sleep, for 30 days, masspat check may fill less, # 30 tablet, 3 Refills, Acute 01/20/22 10:19:00 EDT, 09/22/21 10:19:00 EST, Tablet, [facility]/pharmacy#2024, 160.02, cm, 07/25/21 16:20:00 EST, Height,... [...]
--- OUTSIDE RECORDS SUMMARY | 2024-06-24 14:17 | XMS_ITS | Continuity of Care Document ---
Author Organization [facility] Address [address] [place] [address]- Care Team Providers Care Foot Cutter Name Role Phone Vivi HENNING, Celestina Givens Primary Care Physician [facility] 06[facility]23 - 07/11/23 [facility] [address] [place] [address]- Allergies, Adverse Reactions, Alerts No Known Allergies Immunizations Given and Recorded Vaccine Date Status Refusal Reason tetanus/diphtheria/pertussis, acel(Tdap) 1 08/21/22 Given tetanus/diphtheria/pertussis, acel(Tdap) 2 08/13/12 Given [id number] 12y+ bivalent booster vax 06/14/22 Recorded influenza [...] inactivated 6 07/31/12 Gi hali SARS-CoV-2 mRNA (hgvvver-guib-iytaw) vax 02/14/22 Recorded SARS-CoV-2 (COVID-19) mRNA BNT-162b2 vac 05/06/21 Given SARS-CoV-2 (COVID-19) mRNA BNT-162b2 vac 11/04/20 Recorded SARS-CoV-2 (COVID-19) mRNA BNT-162b2 vac 10/14/20 Recorded pneumococcal 23-valent vaccine 7 04/07/19 Given 1Result Comment: [facility]# [id number] 2Admin Note: VIM dated 08/22/11 GIVEN TODAY 3Result Comment: [facility]# [id number] 4Result Comment: [05/25/2018] [facility] lot number [id number] exp 01/26/2019 [facility] [id number] 5Result Comment: [08/20/2017] [facility] [id number] 6Admin Note: VIM dated 01/29/12 GIVEN TODAY 7Result Comment: [facility]#[id number] Medications acetaminophen 500 mg oral capsule 2 [...] 05/17/23 16:45:00 EDT, Route to Pharmacy Electronically, [facility]/pharmacy #2024, Partial fill upon patient [...] Gm, 0 Refills, Maintenance, 02/28/21 16:31:00 EDT, [place], [facility]/pharmacy #2024, Partial fill upon patient [...] 04/03/23 11:23:00 EDT, Route to Pharmacy Electronically, [facility]/pharmacy #2024, 157, cm, 03/14/23 11:02:00 EDT, Height,145, kg, 08/29/22 20:13:00 EST, Dry Weight Start Date: 04/03/23 Status: Ordered gabapentin 300 mg oral capsule 600 mg, 2, capsule, By Mouth, 3 times a day, # 180 capsule, Refills 3, Tot. Refills 3, Maintenance,08/25/22 22:35:00 EST, Route to Pharmacy Electronically, [facility]/pharmacy #2025, Partial fill upon patient [...] tablet, 2 Refills, Maintenance, 02/27/23 7:25:00 EDT, [facility] STORE [id number], 157, cm, 12/08/22 14:27:00 EDT, Height, 145, kg, 08/29/22 20:13:00 EST, Dry... Start Date: 02/27/23 Status: Ordered meclizine 25 mg oral tablet See Instructions, PRN Dizziness, 1 tablet By Mouth 3 times a day, # 30 tablet, 0 Refills, Maintenance, 02/27/23 10:43:00 EDT, [facility]/pharmacy #202, Partial fill upon patient request if the prescriptionis for a schedule II opioid drug., 157, cm, ... Start Date: 02/27/23 Status: Ordered meloxicam 15 mg oral tablet See Instructions, TAKE 1 TABLET BY MOUTH DAILY WITH FOOD. LABS NEEDED FOR FURTHER REFILLS, # 30 tablet, 1 Refills, Maintenance, 05/01/23 14:45:00 EDT, [facility]/pharmacy #2025, 157, cm, 03/14/23 11:02:00 [...] 11:04:00 EST, 06/12/23 11:04:00 EST, Tablet, [facility]acy [facility], early refill for travel. Thanks., 157.5, cm, 06/08/23 11:48:00 EST, [place]... Start Date: 06/12/23 Stop Date: 07/12/23 Status: Ordered zolpidem 10 mg oral tablet 1 tablet = 10 mg, By Mouth, Daily at bedtime, # 30 tablet, 0 Refills, Maintenance, 07/10/23 11:57:00 EST, [facility], Partial fill upon patient request if the prescription is for a schedule II opioid drug., 157.5, cm, 07/04/23 15:33:00 EST He... Start Date: 07/10/23 Status: Ordered Problem [...] Code MRI Safety Implantable Status Assigning Authority [id number] Unknown [id number] Unknown 08/26/24 Unknown Unknown Active GS1 Patient Care team information Care Team Personnel Name: Celestina Trinidad MD Position: [facility] Physician - Primary Care Member Role: PCP Address: Address: [address] [place] [address] Name: Hemalatha Lucas RN Position: [facility] RN Member Role: Primary Care Nurse Name: Lauren Mack RN Position: [facility] MARY Nurse Member Role: Primary Care [...] [facility] Hospital County Surveyor Member Role: Primary Care Nurse Care Team Related Persons Name: DINESH SARGENT Address: [address] [place] [address] Name: BON DE Address: [address] [address]
--- OUTSIDE RECORDS SUMMARY | 2024-06-24 14:17 | XMS_ITS | Continuity of Care Document ---
Author Organization [facility] Address [address] [place] [address]- Care Team Providers Care Traveling Missionary Name Role Phone Florentino AHN, Elder Hannah Primary Care Physician [phone] [facility]counter [facility] Date[facility]s): 12/09/20 - 01/08/21 [facility] [address] [place] [address]- Allergies, Adverse Reactions, Alerts Substance Reaction Severity [...] 1Result Comment: [facility]# [id number] 2Result Comment: [05/25/2018] [facility] lot number [id number] exp 01/26/2019 [facility] [id number] 3Result Comment: [08/20/2017] [facility] [id number] 4Admin Note: VIM dated 01/29/12 GIVEN TODAY 5Result Comment: [facility]#[id number] 6Admin Note: VIM dated 08/22/11 GIVEN TODAY [...] 10/27/20 14:48:00 EDT, Route to Pharmacy Electronically, [id number], [facility]/pharmacy #2024, 160.02, cm, 10/19/20 11:04:00 EDT, Height, 156... Start Date: 10/27/20 Status: Ordered betamethasone-clotrimazole 0.05%-1% topical cream 1 application, Topically, 2 times a day, # 45 Gm, 0 Refills, Maintenance, 12/27/20 14:13:00 EDT, [place], [facility]/pharmacy #2024, Partial fill upon patient request if the prescription is for a schedule II opioid drug., 1 application Topically 2 times a day,... Start Date: 12/27/20 Status: Ordered diclofenac 1% topical gel See Instructions, APPLY TOPICALLY 4 TIMES A DAY, # 100 Gm, 1 Refills, 10/27/20 12:37:00 EDT, [facility]/pharmacy #2024, 25, APPLY TOPICALLY 4 TIMES A DAY, 160.02, cm, 10/19/20 11:04:00 EDT, Height, 156.81, kg, 10/19/20 11:04:00 EDT, Dry Weight Start Date: 10/27/20 Status: Ordered FLUoxetine 20 mg oral capsule 20 mg, 1, capsule, By Mouth, Daily, # 30 capsule, Refills 5, Tot. Refills 5, Maintenance, 12/20/20 14:39:00 EDT, Route to Pharmacy Electronically, [facility]/pharmacy #2024, replacing 10mg dose, 160.02, cm,12/20/20 11:59:00 EDT, Height, 156.81, kg, 10/19/20... Start Date: 12/20/20 Status: Ordered levothyroxine 0.137 mg oral tablet See Instructions, Take 1 tablet by mouth on days 1-6, then take 2 tablets by mouth on day 7, # 121 tablet, 5 Refills, Maintenance, 12/07/20 9:46:00 EDT, [facility]/pharmacy #5, 160.02, cm, 10/19/20 11:04:00 EDT, Height, 156.81, kg, 10/19/20 11:04:00 EDT,... Start Date: 12/07/20 Status: Ordered meloxicam 15 mg oral tablet 1 tablet, By Mouth, Daily, WITH FOOD., # 30 tablet, 1 Refills, Maintenance, 12/20/20 7:39:00 EDT, [facility], 160.02, cm, 10/19/20 11:04:00 EDT, Height, 156.81, [...] 17:54:00 EST, Route to Pharmacy Electronically, [facility]/pharmacy #2024, 161, cm, 08/04/19 14:44:00 EST, Height Start Date: 08/04/19 Stop Date: 08/18/19 Status: Ordered traMADol 50 mg oral tablet 2 tablet = 100 mg, By Mouth, Every 12 hours, as needed for pain masspat checked, # 120 tablet, 2 Refills, Maintenance, 09/13/20 16:54:00 EST, [facility]/pharmacy #5, 161, cm, 08/18/20 15:29:00 EST, Height [...]
--- OUTSIDE RECORDS SUMMARY | 2024-06-24 14:17 | XMS_ITS | Continuity of Care Document ---
Author Organization [facility] Address [address] [place] [address]- Care Team Providers Care Inspector Receiving Name Role Phone Vivi HENNING, Celestina Givens Primary Care Physician [facility]): 04[facility]23 - 05/02/23 [facility] [address] [place] [address]- Allergies, Adverse Reactions, Alerts No Known Allergies Immunizations Given and Recorded Vaccine Date Status Refusal Reason tetanus/diphtheria/pertussis, acel(Tdap) 1 08/21/22 Given tetanus/diphtheria/pertussis, acel(Tdap) 2 08/13/12 Given [id number] 12y+ bivalent booster vax 06/14/22 Recorded influenza [...] inactivated 6 07/31/12 Gi hali SARS-CoV-2 mRNA (zxpfxlu-fhsl-ilxzk) vax 02/14/22 Recorded SARS-CoV-2 (COVID-19) mRNA BNT-162b2 vac 05/06/21 Given SARS-CoV-2 (COVID-19) mRNA BNT-162b2 vac 11/04/20 Recorded SARS-CoV-2 (COVID-19) mRNA BNT-162b2 vac 10/14/20 Recorded pneumococcal 23-valent vaccine 7 04/07/19 Given 1Result Comment: [facility]# [id number] 2Admin Note: VIM dated 08/22/11 GIVEN TODAY 3Result Comment: [facility]# [id number] 4Result Comment: [05/25/2018] [facility] lot number [id number] exp 01/26/2019 [facility] [id number] 5Result Comment: [08/20/2017] [facility] [phone] 6Admin Note: VIM dated 01/29/12 GIVEN TODAY 7Result Comment: [facility]#[id number] Medications acetaminophen 500 mg oral capsule 2 [...] Stop, 04/10/2215:14:00 EDT, Route to Pharmacy Electronically, [id number], [facility]/pharmacy #2025, 158, cm, 04/10/22 [...] 1 Refills, Maintenance, 01/08/23 9:36:00EDT, [facility], 50, APPLY TOPICALLY 4 TIMES A DAY, [...] 0 Refills, Maintenance, 02/28/21 16:31:00 EDT, [place], [facility]/pharmacy #2024, Partial fill upon patient request if the prescription is for... Start Date: 02/28/21 Status: Ordered FLUoxetine 10 mg oral capsule 10 mg, 1, capsule, By Mouth, Daily, to be taken with 20mg capsules to equal 30mg daily, # 90 capsule, Refills 1, Tot. Refills 1, Maintenance, 04/03/23 11:25:00 EDT, Route to Pharmacy Electronically, [facility]/pharmacy #2024, Partial fill upon patient reques... Start Date: 04/03/23 Status: Ordered FLUoxetine 20 mg oral capsule 1, capsule, By Mouth, Daily, # 90 capsule, Refills 1, Tot. Refills 1, Maintenance, 04/03/23 11:23:00 EDT, Route to Pharmacy Electronically, [facility]/pharmacy #2024, 157, cm, 03/14/23 11:02:00 EDT, Height,145, [...] tablet, 2 Refills, Maintenance, 02/27/23 7:25:00 EDT, [facility] STORE 7[facility], 157, cm, 12/08/22 14:27:00 EDT, Height, 145, [...] tablet, 1 Refills, Maintenance, 05/01/23 14:45:00 EDT, [facility]/pharmacy #2025, 157, cm, 03/14/23 11:02:00 EDT, Height, [...] tablet, 0 Refills, Maintenance, 02/20/23 17:17:00 EDT, [facility]/pharmacy #5, 157, cm, 12/08/2313:27:00 EDT, Height, 145, [...] Team Personnel Name: Celestina Trinidad MD Position: [facility] Physician - Primary Care Member Role: PCP Address: Address: [address] [place] [address] Name: Hemalatha Lucas RN Position: [facility] RN Member Role: Primary Care Nurse Name: Lauren Mack RN Position: [facility] AMB Nurse Member Role: Primary Care Nurse Name: Madelaine Ruiz RN Position: [facility] RN Member Role: Primary Care Nurse Name: Lora Santiago RN Position: [facility] SN RN Member Role: Primary Care Nurse Name: Mayco Ro RN Position: [facility] RN Member Role: Primary Care Nurse Name: Heydi Potts RN Position: [facility] RN Member Role: Primary Care Nurse Name: Janice Romano LPN Position: [facility] RN Member Role: Primary Care Nurse Name: Nadya Low RN Position: [facility] RN Member Role: Primary Care Nurse Name: Mirna Greenfield RN Position: [facility] RN Member Role: Primary Care Nurse Name: Nessa Bonilla RN Position: [facility] Hospital Approver Member Role: Primary Care Nurse Care Team Related Persons Name: DINESH [place] Address: [place] [address] Name: BON DE Address: home [address] [place] [address]
--- OUTSIDE RECORDS SUMMARY | 2024-06-24 14:17 | XMS_ITS | Continuity of Care Document ---
Author Organization [facility] Address [address] [place], [place] [address]i ve [address] [place] [address]- Care Team Providers Care Info Specialist Name Role Phone Patrick Mathur MD Primary Care Physician Encounter [facility] Date(s): 02/24/20 - 03/02/20 [facility] [address] [place] [address]- [facility] Attending Physician: Wanda Panchal Referring Physician: Patrick Mathur MD Allergies, Adverse [...] 08/13/12 Given 1Result Comment: [facility]# [id number] 2Result Comment: [05/25/2018] [facility] lot number [id number] exp 01/26/2019 [facility] [id number] 3Result Comment: [08/20/2017] [facility] [id number] 4Admin Note: VIM dated 01/29/12 GIVEN TODAY 5Result Comment: [facility]#[id number] 6Admin Note: VIM dated 08/22/11 GIVEN TODAY [...] PUFFS EVERY 6 HOURS NEEDED FOR WHEEZE, [facility]/pharmacy #2024 Start Date: 05/27/19 Status: Ordered diclofenac 1% topical gel 1 applicator, Topically, 4 times a day, # 100 Gm, 0 Refills, Maintenance, 02/18/20 11:51:00 EDT, Gel, [facility]/pharmacy #2024, 161, cm, 01/08/20 13:51:00 EDT, Height Start Date: 02/18/20 Status: Ordered FLUoxetine 20 mg oral capsule 20 mg, 1, capsule, By Mouth, Daily, # 30 capsule, Refills 4, Tot. Refills 4, Maintenance, 08/30/19 20:34:00 EST, Route to Pharmacy Electronically, [facility]/pharmacy #2024, replacing 10mg dose, 161, cm, 08/12/19 12:43:00 EST, Height Start Date: 08/30/19 Status: Ordered levothyroxine 125 mcg (0.125 mg) oral tablet 1 tablet = 125 mcg, By Mouth, Daily, # 30 tablet, 5 Refills, Maintenance, 11/11/19 14:50:00 EDT, Tablet, [facility]/pharmacy #2024, 161, cm, 10/07/19 9:57:00 EDT, Height Start Date: 11/11/19 Status: Ordered meloxicam 15 mg oral tablet 1 tablet = 15 mg, By Mouth, Daily, Take w food., # 30 tablet, 1 Refills, Maintenance, 12/31/19 8:12:00 EDT, Tablet, [facility]/pharmacy #2024, Labs needed for further refills, 161, cm, 10/07/19 9:57:00 EDT,Height Start Date: 12/31/19 Status: Ordered Splint See Instructions, # 1 each, Maintenance, left wrist short cock-up splint, 01/08/20 14:28:00 EDT, Supply Start Date: 01/08/20 Status: Ordered tiZANidine 2 mg oral tablet 2 mg, 1, tablet, By Mouth, Daily at bedtime, PRN, # 14 tablet, Refills 0, Tot. Refills 0, Maintenance, as needed for muscle spasm, 08/04/19 17:54:00 EST, Route to Pharmacy Electronically, [facility]/pharmacy #5, 161, cm, 08/04/19 14:44:00 EST, Height Start Date: 08/04/19 Stop Date: 08/18/19 Status: Ordered traMADol 50 mg oral tablet 2 tablet = 100 mg, By Mouth, Every 12 hours, as needed for pain masspat checked, # 120 tablet, 2 Refills, Maintenance, 11/04/19 6:31:00 EDT, [facility]/pharmacy #5, 161, cm, 10/07/19 9:57:00 EDT, Height Start Date: 11/04/19 Stop Date: 02/02/20 Status: Ordered zolpidem 10 mg oral tablet 1 tablet = 10 mg, By Mouth, Daily at bedtime, PRN for sleep, for 30 days, masspat check may fill less, # 30 tablet, 3 Refills, Acute 04/17/20 12:28:00 EDT, 12/19/19 12:28:00 EDT, Tablet, [facility]/pharmacy#5, 161, cm, 10/07/19 9:57:00 EDT, Height Start Date: 12/19/19 Stop Date: 04/17/20 Status: Ordered Problem List Condition Effective Dates Status Health Status Inform ant Acquired hypothyroidism(Confirmed) Active Asthma(Confirmed) Active BMI 50.0-59.9, adult(Confirmed) Active Eczema(Confirmed) Active Hirsutism(Confirmed) Active Obesity(Confirmed) Active Osteoarthritis of both knees(Confirmed) Active Mild recurrent major depression(Confirmed) Active Vital Signs Most recent to oldest [Reference Range]: 1 Height 161 cm (02/24/20 10:51 AM) Blood Pressure [90-138/55-84 mm Hg] 150/ 86mm Hg *H* (02/24/20 10:51 AM) Blood pressure sites Arm, right (02/24/20 10:51 AM) Social History Social History Type Response Smoking Status Current every day sm oker; Tobacco user in household: No; Type: Cigarettes; Tobacco use times per day: 1/2 ppd; entered on: 07/08/15 Sex
--- OUTSIDE RECORDS SUMMARY | 2024-06-24 14:17 | XMS_ITS | Continuity of Care Document ---
Author Organization [facility] Address [address] [place] [address]- Care Team Providers Care Curing Press Maintainer Name Role Phone Vivi HENNING, Celestina Givens Primary Care Physician Encounter [facility] Date(s): 10/15/22 - 11/14/22 [facility] [address] [place] [address]- Allergies, Adverse Reactions, Alerts No Known Allergies Immunizations Given and Recorded Vaccine Date Status Refusal Reason tetanus/diphtheria/pertussis, acel(Tdap) 1 08/21/22 Given tetanus/diphtheria/pertussis, acel(Tdap) 2 08/13/12 Given [id number] 12y+ bivalent booster vax 06/14/22 Recorded influenza [...] inactivated 6 07/31/12 Gi hali SARS-CoV-2 mRNA (uuwuylm-efik-lvmhj) vax 02/14/22 Recorded SARS-CoV-2 (COVID-19) mRNA BNT-162b2 vac 05/06/21 Given SARS-CoV-2 (COVID-19) mRNA BNT-162b2 vac 11/04/20 Recorded SARS-CoV-2 (COVID-19) mRNA BNT-162b2 vac 10/14/20 Recorded pneumococcal 23-valent vaccine 7 04/07/19 Given 1Result Comment: [facility]# [id number] 2Admin Note: VIM dated 08/22/11 GIVEN TODAY 3Result Comment: [facility]# [id number] 4Result Comment: [05/25/2018] [employer] lot number [id number] exp 01/26/[address] [facility] [id number] 5Result Comment: [08/20/2017] [facility] [id number] 6Admin Note: VIM dated 01/29/12 GIVEN TODAY 7Result Comment: [facility]#[id number] Medications acetaminophen 500 mg oral capsule 2 [...] Stop, 04/10/2215:14:00 EDT, Route to Pharmacy Electronically, [id number], [facility]/pharmacy #2025, 158, cm, 04/10/22 14:56:00 EDT, Height, 143,... Start Date: 04/10/22 Status: Ordered amLODIPine 10 mg oral tablet 1 tablet, By Mouth, Daily, # 90 tablet, 0 Refills, Maintenance, 10/23/22 12:47:00 EDT, [facility], 157, cm, 09/13/22 15:58:00 EST, Height, 145, kg, 08/29/22 20:13:00 EST, Dry Weight Start Date: 10/23/22 Status: Ordered budesonide-formoterol 80 mcg-4.5 mcg/inh inhalation aerosol with adapter 2, puffs, Inhalation, 2 times a day, PRN, use with spacer chamber, rinse mouth and throat after use, # 10.2 Gm, Refills 5, Tot. Refills 5, Maintenance, 09/12/22 11:06:00 EST, Aerosol, Route to Pharmacy Electronically, [id number]... Start Date: 09/12/22 Status: Ordered cilostazol 100 mg oral tablet 1 tablet, By Mouth, 2 times a day, # 60 tablet, 0 Refills, Maintenance, 10/23/22 12:47:00 EDT, [facility], 157, cm, 09/13/22 15:58:00 EST, Height, 145, [...] 08/31/22 13:30:00 EST, Route to Pharmacy Electronically, [facility]/pharmacy #2025, Partial fill upon patient request if the p... Start Date: 08/31/22 Status: Ordered Flonase 50 mcg/inh nasal spray See Instructions, 2 sprays Nares twice daily x 1 week, then once daily x 1-2 weeks until symptoms improve, # 16 Gm, 0 Refills, Maintenance, 02/28/21 16:31:00 EDT, [place], [facility]/pharmacy #2025, Partial fill upon patient request if the prescription is for... Start Date: 02/28/21 Status: Ordered FLUoxetine 20 mg oral capsule 1, capsule, By Mouth, Daily, # 90 capsule, Refills 1, Maintenance, 10/23/22 12:47:00 EDT, Route to Pharmacy Electronically, [facility], 157, cm, 09/13/22 15:58:00 EST, Height, 145, kg, 08/29/22 20:13:00 EST, Dry Weight Start Date: 10/23/22 Status: Ordered furosemide 20 mg oral tablet 1, tablet, By Mouth, Daily, MAY REPEAT IF NEEDED IN 2 HOURS, # 30 tablet, Refills 0, Maintenance, 11/08/22 16:39:00 EDT, Route to Pharmacy Electronically, [facility], 157, cm, 10/30/22 13:53:00 EDT, Height, 145, [...] 1 Refills, Maintenance, 07/03/22 14:41:00 EST, Tablet, [facility]/pharmacy #202, Partial fill upon patient request if the prescription is for a schedule II opioid dr... Start Date: 07/03/22 Status: Ordered meclizine 25 mg oral tablet See Instructions, PRN Dizziness, 1 tablet By Mouth 3 times a day, # 30 tablet, 0 Refills, Maintenance, 05/11/21 13:11:00 EDT, [facility]/pharmacy #202, Partial fill upon patient request if the prescriptionis for a schedule II opioid drug., 160.02, cm, 10/0... Start Date: 05/11/21 Status: Ordered meloxicam 15 mg oral tablet See Instructions, TAKE 1 TABLET BY MOUTH DAILY WITH FOOD. LABS NEEDED FOR FURTHER REFILLS, # 30 tablet, 3 Refills, Maintenance, 10/18/22 21:31:00 EDT, [facility], 157, cm, 09/13/22 15:58:00 EST,Height, 145, kg, [...] 09/05/22 16:29:00 EST, Route to Pharmacy Electronically, [facility]/pharmacy #2025, Partialfill upon patient request if [...] 11/20/22 16:47:00 EDT, 10/21/22 16:47:00 EDT, Tablet, [facility]/pharmacy#5, 157, cm, 09/13/22 15:58:00 EST, Height, [...] Team Personnel Name: Celestina Trinidad MD Position: [facility] Physician - Primary Care Member Role: PCP Address: Address: [address] [place] [address] Name: Hemalatha Lucas RN Position: [facility] RN Member Role: Primary Care Nurse Name: Lauren Mack RN Position: [facility] AMB Nurse Member Role: Primary Care Nurse Name: Madelaine Ruiz RN Position: [facility] RN Member Role: Primary Care Nurse Name: Lora Santiago RN Position: [facility] RN Member Role: Primary Care Nurse Name: Mayco Ro RN Position: [facility] RN Member Role: Primary Care Nurse Name: Heydi Potts RN Position: [facility] RN Member Role: Primary Care Nurse Name: Janice Romano LPN Position: [facility] RN Member Role: Primary Care Nurse Name: Nadya Low RN Position: [facility] RN Member Role: Primary Care Nurse Name: Mirna Greenfield RN Position: [facility] RN Member Role: Primary Care Nurse Name: Nessa Bonilla RN Position: [facility] Camera Technician Member Role: Primary Care Nurse Care Team Related Persons Name: ROSETTADINESH Address: home [address] [place] [address] Name: BON DE Address: home [address] [address]
--- OUTSIDE RECORDS SUMMARY | 2024-06-24 14:17 | XMS_ITS | Continuity of Care Document ---
Author Organization [facility] Address [address] [place] [address]- Care Team Providers Care Chip Tester Name Role Phone Yolanda AHN, Padmaja Heard Primary Care Physician Encounter [facility] Date(s): 04/18/22 - 05/18/22 [facility] [address] [place] [address]- Allergies, Adverse Reactions, Alerts No Known Allergies [...] acel(Tdap) 6 08/13/12 Given 1Result Comment: [facility]# [id number] 2Result Comment: [05/25/2018] [employer] lot number [id number] exp 01/26/2019 [facility] [id number] 3Result Comment: [08/20/2017] [facility] [id number] 4Admin Note: VIM dated 01/29/12 GIVEN TODAY 5Result Comment: [facility]#[id number] 6Admin Note: VIM dated 08/22/11 GIVEN TODAY [...] Stop, 04/10/2215:14:00 EDT, Route to Pharmacy Electronically, [id number], [facility]/pharmacy #2025, 158, cm, 04/10/22 14:56:00 EDT, Height, 143,... Start Date: 04/10/22 Status: Ordered Anoro Ellipta 62.5 mcg-25 mcg/inh inhalation powder 1 puffs, By Mouth, Daily, # 1 each, 6 Refills, Maintenance, 05/11/22 13:00:00 EDT, Powder, [facility], Partial fill upon patient [...] 100 Gm, 1 Refills, 09/19/21 12:51:00 EST, [facility]/pharmacy #2024, 25, APPLY TOPICALLY 4 TIMES A DAY, 160.02, cm, 07/25/21 16:20:00 EST, Height, 143, kg,01/04/21 10:42:00 EDT, Dry Weight Start Date: 09/19/21 Status: Ordered Flonase 50 mcg/inh nasal spray See Instructions, 2 sprays Nares twice daily x 1 week, then once daily x 1-2 weeks until symptoms improve, # 16 Gm, 0 Refills, Maintenance, 02/28/21 16:31:00 EDT, [place], [facility]/pharmacy #2024, Partial fill upon patient request if the prescription is for... Start Date: 02/28/21 Status: Ordered FLUoxetine 10 mg oral capsule 10 mg, 1, capsule, By Mouth, Daily, Take with 20mg capsule for total of 30mg daily, # 90 capsule, Refills 1, Tot. Refills 1, Maintenance, 04/11/22 14:55:00 EDT, Route to Pharmacy Electronically, [facility], Partial fill upon patient request if t... Start Date: 04/11/22 Status: Ordered levothyroxine 0.137 mg oral tablet See Instructions, TAKE 1 TABLET BY MOUTH ON DAYS 1-6, THEN TAKE 2 TABLETS BY MOUTH ON DAY 7, # 96 tablet, 1 Refills, [facility] 86199, 160.02, cm, 10/04/21 10:38:00 EST, Height, 143, [...] tablet, 0 Refills, Maintenance, 05/11/22 18:51:00 EDT, [facility], Labs needed for further refills., 158, [...] tablet, 0 Refills, Maintenance, 05/11/22 18:51:00 EDT, [facility], 158, cm, 05/08/22 11:49:00 EDT, Height, 143, kg, 01/04/21 10:42:00 EDT, Dry Weight Start Date: 05/11/22 Status: Ordered zolpidem 10 mg oral tablet 1 tablet = 10 mg, By Mouth, Daily at bedtime, PRN for sleep, for 30 days, masspat check may fill less, # 30 tablet, 2 Refills, Acute 07/19/22 9:22:00 EST, 04/20/22 9:22:00 EDT, Tablet, [facility], 158, cm, 04/10/22 14:56:00 EDT, Height, [...] Name: Yolanda AHN, Padmaja Heard Address: Address: [address] [place] [address] [place], [place] [address]
--- OUTSIDE RECORDS SUMMARY | 2024-06-24 14:17 | XMS_ITS | Continuity of Care Document ---
Author Organization [facility] Address [address] [place] [address]- Care Team Providers Care Merchandising Intern Name Role Phone Vivi HENNING, Celestina Givens Primary Care Physician Encounter [facility] Date(s): 08/25/22 - 09/24/22 [facility] [address] [place] [address]- Allergies, Adverse Reactions, Alerts No Known Allergies Immunizations Given and Recorded Vaccine Date Status Refusal Reason tetanus/diphtheria/pertussis, acel(Tdap) 1 08/21/22 Given tetanus/diphtheria/pertussis, acel(Tdap) 2 08/13/12 Given [id number] 12y+ bivalent booster vax 06/14/22 Recorded influenza [...] inactivated 6 07/31/12 Gi hali SARS-CoV-2 mRNA (qrfsheg-dlzk-ucjzc) vax 02/14/22 Recorded SARS-CoV-2 (COVID-19) mRNA BNT-162b2 vac 05/06/21 Given SARS-CoV-2 (COVID-19) mRNA BNT-162b2 vac 11/04/20 Recorded SARS-CoV-2 (COVID-19) mRNA BNT-162b2 vac 10/14/20 Recorded pneumococcal 23-valent vaccine 7 04/07/19 Given 1Result Comment: [facility]# [id number] 2Admin Note: VIM dated 08/22/11 GIVEN TODAY 3Result Comment: [facility]# [id number] 4Result Comment: [05/25/2018] [facility] lot number [id number] exp 01/26/2019 [facility] [id number] 5Result Comment: [08/20/2017] [facility] [id number] 6Admin Note: VIM dated 01/29/12 GIVEN TODAY 7Result Comment: [facility]#[id number] Medications acetaminophen 500 mg oral capsule 2 [...] Stop, 04/10/2215:14:00 EDT, Route to Pharmacy Electronically, [id number], [facility]/pharmacy #2025, 158, cm, 04/10/22 14:56:00 EDT, Height, 143,... Start Date: 04/10/22 Status: Ordered amLODIPine 5 mg oral tablet 1 tablet, By Mouth, Daily, # 30 tablet, 5 Refills, Maintenance, 08/24/22 20:08:00 EST, [facility], 159, cm, 08/21/22 11:38:00 EST, Height, 143, kg, 01/04/21 10:42:00 EDT, Dry Weight Start Date: 08/24/22 Status: Ordered Augmentin 875 mg-125 mg oral tablet 1 tablet, By Mouth, Every 12 hours, for 6 week(s), # 84 tablet, 0 Refills, Acute 10/12/22 13:28:00 EDT, 08/31/22 13:28:00 EST, Tablet, [facility]/pharmacy #2024, Partial fill upon patient request [...] 11:06:00 EST, Aerosol, Route to Pharmacy Electronically, [id number]... Start Date: 09/12/22 Status: Ordered cilostazol 50 mg oral tablet 1 tablet = 50 mg, By Mouth, Daily, # 180 tablet, 0 Refills, Maintenance, 09/02/22 10:35:00 EST, Tablet, [facility]/pharmacy #2024, Partial fill upon patient request [...] 100 Gm, 1 Refills, 09/22/22 7:28:00 EST, [facility]/pharmacy #202, 25, APPLY TOPICALLY 4 TIMES [...] 08/31/22 13:30:00 EST, Route to Pharmacy Electronically, [facility]/pharmacy #202, Partial fill upon patient request if the p... Start Date: 08/31/22 Status: Ordered Flonase 50 mcg/inh nasal spray See Instructions, 2 sprays Nares twice daily x 1 week, then once daily x 1-2 weeks until symptoms improve, # 16 Gm, 0 Refills, Maintenance, 02/28/21 16:31:00 EDT, [place], [facility]/pharmacy #2025, Partial fill upon patient request if the prescription is for... Start Date: 02/28/21 Status: Ordered fluconazole 200 mg oral tablet 2 tablet = 400 mg, By Mouth, Daily, for 6 week(s), # 84 tablet, 0 Refills, Acute 10/12/22 13:28:00 EDT, 08/31/22 13:28:00 EST, Tablet, [facility]/pharmacy #202, Partial fill upon patient request if the prescription is for a schedule II opioid drug., 157, cm... Start Date: 08/31/22 Stop Date: 10/12/22 Status: Ordered FLUoxetine 20 mg oral capsule See Instructions, TAKE 1 CAPSULE BY MOUTH EVERY DAY, # 90 capsule, Refills 1, Maintenance, 06/13/2215:26:00 EST, Instructions Replace Required Details, Route to Pharmacy Electronically, [facility] 6[facility], 158, cm, 06/09/22 11:21:00 EST, Height, 143, kg... Start Date: 06/13/22 Status: Ordered furosemide 20 mg oral tablet 1, tablet, By Mouth, Daily, MAY REPEAT IF NEEDED IN 2 HOURS, # 30 tablet, Refills 0, Maintenance, 09/07/22 12:45:00 EST, Route to Pharmacy Electronically, [facility] 67562, 157, cm, 09/05/22 15:49:00 EST, Height, 145, kg, 08/29/22 20:13:00 EST, Dry Weight Start Date: 09/07/22 Status: Ordered gabapentin 300 mg oral capsule 600 mg, 2, capsule, By Mouth, 3 times a day, # 180 capsule, Refills 3, Tot. Refills 3, Maintenance,08/25/22 22:35:00 EST, [facility] Partial fill upon patient request if the prescription is for a schedule II... Start Date: 08/25/22 Status: Ordered levothyroxine 0.137 mg oral tablet 1 tablet = 137 mcg, By Mouth, Daily, 1 tab on days 1-6, take 2 tabs on day 7, # 102 tablet, 1 Refills, Maintenance, 07/03/22 14:41:00 EST, Tablet, [facility] Partial fill upon patient request if the prescription is for a schedule II opioid dr... Start Date: 07/03/22 Status: Ordered meclizine 25 mg oral tablet See Instructions, PRN Dizziness, 1 tablet By Mouth 3 times a day, # 30 tablet, 0 Refills, Maintenance, 05/11/21 13:11:00 EDT, [facility]/pharmacy #2024, Partial fill upon patient request if the prescriptionis for a schedule II opioid drug., 160.02, cm, 10/0... Start Date: 05/11/21 Status: Ordered meloxicam 15 mg oral tablet See Instructions, TAKE 1 TABLET BY MOUTH DAILY WITH FOOD. LABS NEEDED FOR FURTHER REFILLS, # 30 tablet, 3 Refills, Maintenance, 07/17/22 19:56:00 EST, [facility]/pharmacy #2024, 158, cm, 07/13/22 13:46:00 EST, [...] [facility] to Pharm[facility] Electronically[facility] Partial[facility] upon patient request if the prescription is fo... Start Date: 09/05/22 Stop Date: 09/12/22 Status: Ordered traMADol 50 mg oral tablet See Instructions, 2 tab po qam and one tab po q pm prn moderate to severe pain. 28 days. mass pat ok, # 81 tablet, 0 Refills, Maintenance, 09/21/22 16:44:00 EST, [facility]/pharmacy #2024, 157, cm, 09/13/2314:58:00 EST, Height, 145, kg, 08/29/22 20:13:00 E... Start Date: 09/21/22 Status: Ordered zolpidem 10 mg oral tablet 1 tablet = 10 mg, By Mouth, Daily at bedtime, PRN for sleep, for 30 days, masspat check may fill less, # 10 tablet, 0 Refills, Acute 10/21/22 16:47:00 EDT, 09/21/22 16:47:00 EST, Tablet, [facility]/pharmacy#2024, 157, cm, 09/13/22 15:58:00 EST, Height, [...] Team Personnel Name: Celestina Trinidad MD Position: [facility] Primary Care Physician Member Role: PCP Address: Address: [address] [place] [id number] Name: Hemalatha Lucas RN Position: [facility] RN Member Role: Primary Care Nurse Name: Lauren Mack RN Position: [facility] AMB Nurse Member Role: Primary Care Nurse Name: Madelaine Ruiz RN Position: [facility] RN Member Role: Primary Care Nurse Name: Lora Santiago RN Position: [facility] SN RN Member Role: Primary Care Nurse Name: Mayco Ro RN Position: [facility] RN Member Role: Primary Care Nurse Name: Heydi Potts RN Position: [facility] RN Member Role: Primary Care Nurse Name: Janice Romano LPN Position: [facility] RN Member Role: Primary Care Nurse Name: Nadya Low RN Position: [facility] RN Member Role: Primary Care Nurse Name: Mirna Greenfield RN Position: [facility] RN Member Role: Primary Care Nurse Name: Nessa Bonilla RN Position: [facility] Machine Specialist Member Role: Primary Care Nurse Care Team Related Persons Name: DINESH SARGENT Address: home [address] [place] [address] Name: BON DE Address: home [address] [address]
--- OUTSIDE RECORDS SUMMARY | 2024-06-24 14:17 | XMS_ITS | Continuity of Care Document ---
Author Organization [facility] Address [address] [place] [address]- Care Team Providers Care Yard Brakeman Name Role Phone Celestina Trinidad MD Primary Care Physician Encounter [facility] Date(s): 07/21/22 - 07/28/22 [facility] [address] [place] [address]- Attending Physician: Not on Staff, Attending MD Referring Physician: Celestina Trinidad MD Allergies, Adverse Reactions, Alerts No Known Allergies Immunizations Given and Recorded Vaccine Date Status Refusal Reason [id number] 12y+ bivalent booster vax 06/14/22 Recorded influenza [...] inactivated 4 07/31/12 Gi hali SARS-CoV-2 mRNA (nopazbz-esbf-zxyck) vax 02/14/22 Recorded SARS-CoV-2 (COVID-19) mRNA BNT-162b2 vac 05/06/21 Given SARS-CoV-2 (COVID-19) mRNA BNT-162b2 vac 11/04/20 Recorded SARS-CoV-2 (COVID-19) mRNA BNT-162b2 vac 10/14/20 Recorded pneumococcal 23-valent vaccine 5 04/07/19 Given tetanus/diphtheria/pertussis, acel(Tdap) 6 08/13/12 Given 1Result Comment: [facility]# [id number] 2Result Comment: [05/25/2018] [facility] lot number [id number] exp 01/26/2019 [facility] [id number] 3Result Comment: [08/20/2017] [facility] [id number] 4Admin Note: VIM dated 01/29/12 GIVEN TODAY 5Result Comment: [facility]#[id number] 6Admin Note: VIM dated 08/22/11 GIVEN TODAY [...] Stop, 04/10/2215:14:00 EDT, Route to Pharmacy Electronically, [id number], [facility]/pharmacy #2025, 158, cm, 04/10/22 14:56:00 EDT, Height, 143,... Start Date: 04/10/22 Status: Ordered amLODIPine 10 mg oral tablet 1 tablet, By Mouth, Daily, # 90 tablet, 0 Refills, Maintenance, 07/21/22 17:34:00 EST, [facility], 158, cm, 07/21/22 15:09:00 EST, Height, 143, kg, 01/04/21 10:42:00 EDT, Dry Weight Start Date: 07/21/22 Status: Ordered Anoro Ellipta 62.5 mcg-25 mcg/inh inhalation powder 1 puffs, By Mouth, Daily, # 1 each, 6 Refills, Maintenance, 05/11/22 13:00:00 EDT, Powder, [facility], Partial fill upon patient [...] 100 Gm, 1 Refills, 09/19/21 12:51:00 EST, [facility]/pharmacy #2024, 25, APPLY TOPICALLY 4 TIMES A DAY, 160.02, cm, 07/25/21 16:20:00 EST, Height, 143, kg,01/04/21 10:42:00 EDT, Dry Weight Start Date: 09/19/21 Status: Ordered doxycycline hyclate 100 mg oral tablet 1 tablet = 100 mg, By Mouth, 2 times a day, for 10 days, # 20 tablet, 0 Refills, Acute 08/02/22 1:51:00 EST, 07/23/22 1:51:00 EST, Capsule, [facility]/pharmacy #2024, Partial fill upon patient request if the prescription is for a schedule II opioid drug., 15... Start Date: 07/23/22 Stop Date: 08/02/22 Status: Ordered doxycycline hyclate 100 mg oral tablet 1 tablet, By Mouth, 2 times a day, # 20 tablet, 0 Refills, Maintenance, 07/21/22 17:34:00 EST, [facility], 158, cm, 07/21/22 15:09:00 EST, Height, 143, kg, 01/04/21 10:42:00 EDT, Dry Weight Start Date: 07/21/22 Stop Date: 07/31/22 Status: Ordered Flonase 50 mcg/inh nasal spray See Instructions, 2 sprays Nares twice daily x 1 week, then once daily x 1-2 weeks until symptoms improve, # 16 Gm, 0 Refills, Maintenance, 02/28/21 16:31:00 EDT, [place], [facility]/pharmacy #2025, Partial fill upon patient request if the prescription is for... Start Date: 02/28/21 Status: Ordered FLUoxetine 20 mg oral capsule See Instructions, TAKE 1 CAPSULE BY MOUTH EVERY DAY, # 90 capsule, Refills 1, Maintenance, 06/13/2215:26:00 EST, Instructions Replace Required Details, Route to Pharmacy Electronically, [facility], 158, cm, 06/09/22 11:21:00 EST, Height, 143, kg... Start Date: 06/13/22 Status: Ordered gabapentin 300 mg oral capsule 600 mg, 2, capsule, By Mouth, 2 times a day, # 120 capsule, Refills 1, Tot. Refills 1, Maintenance,07/22/22 8:06:00 EST, Route to Pharmacy Electronically, [facility]/pharmacy #2025, Partial fill upon patient [...] Refills, 06/29/22 15:47:00 EST, [facility], 158, cm,06/09/22 11:21:00 EST, Height, 143, kg, 01/04/21 1... Start Date: 06/29/22 Status: Ordered meclizine 25 mg oral tablet See Instructions, PRN Dizziness, 1 tablet By Mouth 3 times a day, # 30 tablet, 0 Refills, Maintenance, 05/11/21 13:11:00 EDT, [facility]/pharmacy #2024, Partial fill upon patient request if the prescriptionis for a schedule II opioid drug., 160.02, cm, 10/0... Start Date: 05/11/21 Status: Ordered meloxicam 15 mg oral tablet See Instructions, TAKE 1 TABLET BY MOUTH DAILY WITH FOOD. LABS NEEDED FOR FURTHER REFILLS, # 30 tablet, 3 Refills, Maintenance, 07/17/22 19:56:00 EST, [facility]/pharmacy #2024, 158, cm, 07/13/22 13:46:00 EST, Height, 143, kg, 01/04/21 10:42:00 EDT, Dry Weight Start Date: 07/17/22 Status: Ordered oxyCODONE 10 mg oral tablet 1 tablet = 10 mg, By Mouth, Every 6 hours, PRN as needed for pain, # 20 tablet, 0 Refills, Acute 08/04/22 9:15:00 EST, 07/21/22 9:15:00 EST, Tablet, [facility]/pharmacy #2024, Partial fill upon patient [...] oldest [Reference Range]: 1 Height 158 cm (07/21/22 3:09 PM) Oxygen Saturation [94-100 %] 99 % (07/21/22 3:09 PM) Pulse Rate [55-90 bpm] 85 bpm (07/21/22 3:09 PM) Blood Pressure [90-138/55-84 mm Hg] 147/ 77mm Hg *H* (07/21/22 3:09 PM) Respiratory Rate [16-30 br/min] 18 br/mi n (07/21/22 3:09 PM) Mode of Delivery (Oxygen) Room air (07/21/22 3:09 PM) Blood pressure sites Arm, left (07/21/22 3:09 PM) Social History Social History Type Response Smoking Status Former smoker, quit more than 30 days ago; Other: smoked up to pack a day x 25 years; entered on: 11/14/21 Sex Patient Care team information Care Team Personnel Name: Celestina Trinidad MD Position: [facility] Primary Care Physician Member Role: PCP Address: Address: [address] [place] [id number] Name: Lauren Mack RN [facility] Bonilla RN Position: [facility] Pbx Wire Chief Member Role: Primary Care Nurse Care Team Related Persons Name: ROSETTADINESH Address: [address] [place] [address] Name: BON DE Address: home [address] [address]
--- OUTSIDE RECORDS SUMMARY | 2024-06-24 14:17 | XMS_ITS | Continuity of Care Document ---
Author Organization [facility] Address [address] [place] [address]- Care Team Providers Care Microelectronics Engineer Name Role Phone Noe AHN, Mónica Graham Primary Care Physician [facility]counter [facility] Date(s): 05/10/21 - 06/09/21 [facility] [address] [place] [address]- Allergies, Adverse Reactions, Alerts Substance Reaction Severity [...] tetanus/diphtheria/pertussis, acel(Tdap) 6 08/13/12 Given 1Result Comment: [facility]# [id number] 2Result Comment: [05/25/2018] [facility] lot number [id number] exp 01/26/2019 [facility] [id number] 3Result Comment: [08/20/2017] [facility] [id number] 4Admin Note: VIM dated 01/29/12 GIVEN TODAY 5Result Comment: [facility]#[id number] 6Admin Note: VIM dated 08/22/11 GIVEN TODAY [...] 10/27/20 14:48:00 EDT, Route to Pharmacy Electronically, [id number], [facility]/pharmacy #2024, 160.02, cm, 10/19/20 11:04:00 EDT, Height, 156... Start Date: 10/27/20 Status: Ordered betamethasone-clotrimazole 0.05%-1% topical cream 1 application, Topically, 2 times a day, # 45 Gm, 0 Refills, Maintenance, 12/27/20 14:13:00 EDT, [place], [facility]/pharmacy #2024, Partial fill upon patient [...] Gm, 0 Refills, Maintenance, 02/28/21 16:31:00 EDT, [place], [facility]/pharmacy #2024, Partial fill upon patient request if the prescription is for... Start Date: 02/28/21 Status: Ordered FLUoxetine 10 mg oral capsule 10 mg, 1, capsule, By Mouth, Daily, Take with 20mg capsule for total of 30mg daily, # 90 capsule, Refills 1, Tot. Refills 1, Maintenance, 05/04/21 16:44:00 EDT, Route to Pharmacy Electronically, [facility]/pharmacy #202, Partial fill upon patient request if... Start Date: 05/04/21 Status: Ordered FLUoxetine 20 mg oral capsule 20 mg, 1, capsule, By Mouth, Daily, Take with Fluoxetine 10mg for a total of 30mg, # 90 capsule, Refills 1, Tot. Refills 1, Maintenance, 05/04/21 16:44:00 EDT, Route to Pharmacy Electronically, [facility]/pharmacy #2024, replacing 10mg dose, 160.02, cm, 08/0... Start Date: 05/04/21 Status: Ordered levothyroxine 0.137 mg oral tablet See Instructions, Take 1 tablet by mouth on days 1-6, then take 2 tablets by mouth on day 7, # 121 tablet, 5 Refills, Maintenance, 12/07/20 9:46:00 EDT, [facility]/pharmacy #2024, 160.02, cm, 10/19/20 11:04:00 EDT, Height, 156.81, kg, 10/19/20 11:04:00 EDT,... Start Date: 12/07/20 Status: Ordered meclizine 25 mg oral tablet See Instructions, PRN Dizziness, 1 tablet By Mouth 3 times a day, # 30 tablet, 0 Refills, Maintenance, 05/11/21 13:11:00 EDT, [facility]/pharmacy #202, Partial fill upon patient request if the prescriptionis for a schedule II opioid drug., 160.02, cm, 10/0... Start Date: 05/11/21 Status: Ordered meloxicam 15 mg oral tablet 1 tablet, By Mouth, Daily, WITH FOOD., # 30 tablet, 0 Refills, Maintenance, 06/06/21 13:21:00 EST, [facility]/pharmacy #2025, 160.02, cm, 05/06/21 10:09:00 EDT, Height, [...] tablet, 2 Refills, Maintenance, 05/11/21 13:11:00 EDT, [facility]/pharmacy #2025, 160.02, cm, 05/06/21 10:09:00 EDT, Height, 143, kg, 01/04/21 10:42:00 EDT, Dry Weight Start Date: 05/11/21 Stop Date: 08/09/21 Status: Ordered traMADol 50 mg oral tablet 2 tablet = 100 mg, By Mouth, Every 12 hours, as needed for pain masspat checked, # 120 tablet, 2 Refills, Maintenance, 02/10/21 12:37:00 EDT, [facility]/pharmacy #2025, 160.02, cm, 01/04/21 10:42:00 EDT, [...]
--- OUTSIDE RECORDS SUMMARY | 2024-06-24 14:18 | XMS_ITS | Continuity of Care Document ---
Author Organization [facility] Address [address] [place] [address]- Care Team Providers Care Utility Clerk Name Role Phone Celestina Trinidad MD Primary Care Physician [place] [facility] [place]12[place]23 - 11/11/23 [facility] [address] [place] [address]- Allergies, Adverse Reactions, Alerts No Known Allergies [...] 08/21/22 Given tetanus/diphtheria/pertussis, acel(Tdap) 7 08/13/12 Given [id number] 12y+ bivalent booster vax 06/14/22 Recorded SARS-CoV-2 mRNA (nwutrkf-zomv-fqeny) vax 02/14/22 Recorded SARS-CoV-2 (COVID-19) mRNA BNT-162b2 vac 05/06/21 Given SARS-CoV-2 (COVID-19) mRNA BNT-162b2 vac 11/04/20 Recorded SARS-CoV-2 (COVID-19) mRNA BNT-162b2 vac 10/14/20 Recorded pneumococcal 23-valent vaccine 8 04/07/19 Given 1Result Comment: screening negative 2Result Comment: [facility]# [id number] 3Result Comment: [05/25/2018] [facility] lot number [id number] exp 01/26/2019 [facility] [id number] 4Result Comment: [08/20/2017] [facility] [id number] 5Admin Note: VIM dated 01/29/12 GIVEN TODAY 6Result Comment: [facility]# [id number] 7Admin Note: VIM dated 08/22/11 GIVEN TODAY 8Result Comment: [facility]#[id number] Medications acetaminophen 500 mg oral capsule 2 [...] to Pharmacy Electronically, [facility]/pharmacy #2024, Partial fill upon [...] Gm, 0 Refills, Maintenance, 02/28/21 16:31:00 EDT, [place], [facility], Partial fill upon patient request [...] 07/31/23 19:01:00 EST, [facility], cm, 07/13/23 9:57:00 EST, Height, 145.9, kg, 05/22/23 7:39:00 EDT, Dry Weight Start Date: 07/31/23 Status: Ordered gabapentin 300 mg oral capsule 600 mg, 2, capsule, By Mouth, 3 times a day, # 180 capsule, Refills 3, Tot. Refills 3, Maintenance,08/25/22 22:35:00 EST, [facility]ically[facility] upon patient [...] tablet, 0 Refills, Maintenance, 10/12/23 6:42:00 EDT, [facility]/pharmacy #2024, 157.5, cm, 07/13/23 9:57:00 EST, Height, 145.9, kg, 05/22/23 7:39:00 EDT, Dry Weight Start Date: 10/12/23 Status: Ordered meclizine 25 mg oral tablet See Instructions, PRN Dizziness, 1 tablet By Mouth 3 times a day, # 30 tablet, 0 Refills, Maintenance, 02/27/23 10:43:00 EDT, [facility]/pharmacy #2024, Partial fill upon patient request if the prescriptionis for a schedule II opioid drug., 157, cm, ... Start Date: 02/27/23 Status: Ordered meloxicam 15 mg oral tablet See Instructions, TAKE 1 TABLET BY MOUTH DAILY WITH FOOD., # 30 tablet, 5 Refills, Maintenance, 10/08/23 17:05:00 EDT, [facility]/pharmacy #2024, 157.5, cm, 07/13/23 9:57:00 EST, Height, 145.9, kg, :39:00 EDT, Dry Weight Start Date: 10/08/23 Status: Ordered metFORMIN 500 mg oral tablet, extended release 1 tablet = 500 mg, By Mouth, Daily, # 90 tablet, 1 Refills, Maintenance, 10/24/23 11:39:00 EDT, ER Tablet, [facility]/pharmacy #2024, Partial fill upon [...] tablet, 0 Refills, Maintenance, 11/05/23 16:28:00 EDT, [facility]/pharmacy #2025, Partial fill [...] Code MRI Safety Implantable Status Assigning Authority [id number] Unknown [id number] Unknown 08/26/24 Unknown Unknown Active GS1 Patient Care team information Care Team Personnel Name: Celestina Trinidad MD Position: S Physician - Primary Care Member Role: PCP Address: Address: [address] [place] [address] Name: Hemalatha Lucas RN [facility] [...] Name: Nessa Bonilla RN Position: [facility] Salesperson Member Role: Primary Care Nurse Care Team Related Persons Name: ROSETTAROLADINESH Address: [address] [place] [address] Name: BON DE Address: home [address] [address]
--- OUTSIDE RECORDS SUMMARY | 2024-06-24 14:18 | XMS_ITS | Continuity of Care Document ---
Author Organization [facility] Address [address] [place] [address]- Care Team Providers Care Movie Theater Manager Name Role Phone Vivi HENNING, Celestina Givens Primary Care Physician Encounter [facility] Date(s): 11/22/22 - 12/22/[address] [facility] [address] [place], [place] [address] Allergies, Adverse Reactions, Alerts No Known Allergies Immunizations Given and Recorded Vaccine Date Status Refusal Reason tetanus/diphtheria/pertussis, acel(Tdap) 1 08/21/22 Given tetanus/diphtheria/pertussis, acel(Tdap) 2 08/13/12 Given [id number] 12y+ bivalent booster vax 06/14/22 Recorded influenza [...] inactivated 6 07/31/12 Gi hali SARS-CoV-2 mRNA (oomhzqs-kvbh-xcpjw) vax 02/14/22 Recorded SARS-CoV-2 (COVID-19) mRNA BNT-162b2 vac 05/06/21 Given SARS-CoV-2 (COVID-19) mRNA BNT-162b2 vac 11/04/20 Recorded SARS-CoV-2 (COVID-19) mRNA BNT-162b2 vac 10/14/20 Recorded pneumococcal 23-valent vaccine 7 04/07/19 Given 1Result Comment: [facility]NOTE 3]# [id number] 2Admin Note: VIM dated 08/22/11 GIVEN TODAY 3Result Comment: [facility]# [id number] 4Result Comment: [05/25/2018] [facility] lot number [id number] exp 01/26/2019 [facility] [id number] 5Result Comment: [08/20/2017] [facility] [id number] 6Admin Note: VIM dated 01/29/12 GIVEN TODAY 7Result Comment: [facility][NOTE 3]#[id number] Medications acetaminophen 500 mg oral capsule 2 [...] Stop, 04/10/2215:14:00 EDT, Route to Pharmacy Electronically, [id number], [facility]/pharmacy #2025, 158, cm, 04/10/22 14:56:00 EDT, Height, 143,... Start Date: 04/10/22 Status: Ordered amLODIPine 10 mg oral tablet 1 tablet, By Mouth, Daily, # 90 tablet, 0 Refills, Maintenance, 10/23/22 12:47:00 EDT, [facility], 157, cm, 09/13/22 15:58:00 EST, Height, 145, kg, 08/29/22 20:13:00 EST, Dry Weight Start Date: 10/23/22 Status: Ordered budesonide-formoterol 80 mcg-4.5 mcg/inh inhalation aerosol with adapter 2, puffs, Inhalation, 2 times a day, PRN, use with spacer chamber, rinse mouth and throat after use, j44.9, # 1 each, Refills 6, Tot. Refills 6, Maintenance, 12/08/22 12:55:00 EDT, Aerosol, Route to Pharmacy Electronically, [id number]... Start Date: 12/08/22 Status: Ordered Compression Stockings [...] 100 Gm, 1 Refills, 09/22/22 7:28:00 EST, [facility]/pharmacy #2024, 25, APPLY TOPICALLY [...] 08/31/22 13:30:00 EST, Route to Pharmacy Electronically, [facility]/pharmacy #2024, Partial fill upon patient request if the p... Start Date: 08/31/22 Status: Ordered Flonase 50 mcg/inh nasal spray See Instructions, 2 sprays Nares twice daily x 1 week, then once daily x 1-2 weeks until symptoms improve, # 16 Gm, 0 Refills, Maintenance, 02/28/21 16:31:00 EDT, [place], [facility]/pharmacy #2024, Partial fill upon patient request if the prescription is for... Start Date: 02/28/21 Status: Ordered FLUoxetine 20 mg oral capsule 1, capsule, By Mouth, Daily, # 90 capsule, Refills 1, Maintenance, 10/23/22 12:47:00 EDT, Route to Pharmacy Electronically, [address], 157, cm, 09/13/22 15:58:00 EST, Height, 145, kg, 08/29/22 20:13:00 EST, Dry Weight Start Date: 10/23/22 Status: Ordered furosemide 20 mg oral tablet 1, tablet, By Mouth, Daily, MAY REPEAT IF NEEDED IN 2 HOURS, # 30 tablet, Refills 0, Maintenance, 11/29/22 22:18:00 EDT, Route to Pharmacy Electronically, [address] [facility], 157, cm, 10/30/22 13:53:00 EDT, Height, 145, kg, 08/29/22 20:13:00 EST, Dry Weight Start Date: 11/29/22 Status: Ordered gabapentin 300 mg oral capsule 600 mg, 2, capsule, By Mouth, 3 times a day, # 180 capsule, Refills 3, Tot. Refills 3, Maintenance,08/25/22 22:35:00 EST, Route to Pharmacy Electronically, [facility]/pharmacy #2024, Partial fill upon patient request [...] 1 Refills, Maintenance, 07/03/22 14:41:00 EST, Tablet, [facility]/pharmacy #2024, Partial fill upon patient request if the prescription is for a schedule II opioid drMelonie.. Start Date: 07/03/22 Status: Ordered meclizine 25 mg oral tablet See Instructions, PRN Dizziness, 1 tablet By Mouth 3 times a day, # 30 tablet, 0 Refills, Maintenance, 05/11/21 13:11:00 EDT, [facility]/pharmacy #2024, Partial fill upon patient request if the prescriptionis for a schedule II opioid drug., 160.02, cm, 10/0... Start Date: 05/11/21 Status: Ordered meloxicam 15 mg oral tablet See Instructions, TAKE 1 TABLET BY MOUTH DAILY WITH FOOD. LABS NEEDED FOR FURTHER REFILLS, # 30 tablet, 3 Refills, Maintenance, 10/18/22 21:31:00 EDT, [facility], 157, cm, 09/13/22 15:58:00 EST,Height, 145, kg, [...] 09/05/22 16:29:00 EST, Route to Pharmacy Electronically, [facility]/pharmacy #2024, Partialfill upon patient request if [...] 12/31/22 16:24:00 EDT, 12/01/22 16:24:00 EDT, Tablet, [facility], 157, cm, 10/30/22 13:53:00 EDT, Height, 145... Start Date: 12/01/22 Stop Date: 12/31/22 Status: Ordered zolpidem 5 mg oral tablet 2 tablet = 10 mg, By Mouth, Daily at bedtime, PRN as needed for insomnia, # 50 tablet, 0 Refills, Acute 02/03/23 16:53:00 EDT, 12/04/22 16:52:00 EDT, Tablet, [facility], Partial fill upon patient [...] Team Personnel Name: Celestina Trinidad MD Position: [facility] Physician - Primary Care Member Role: PCP Address: Address: [address] [place] [address]- [place] Name: Hemalatha Lucas RN Position: [facility] RN Member Role: Primary Care Nurse Name: Lauren Mack RN Position: [facility] AMB Nurse Member Role: Primary Care Nurse Name: Madelaine Ruiz RN Position: [facility] RN Member Role: Primary Care Nurse Name: Lora Santiago RN Position: [facility] SN RN Member Role: Primary Care Nurse Name: Mayco Ro RN Position: [facility] RN Member Role: Primary Care Nurse Name: Heydi Potts RN Position: [facility] RN Member Role: Primary Care Nurse Name: Janice Romano LPN Position: [facility] RN Member Role: Primary Care Nurse Name: Nadya Low RN Position: [facility] RN Member Role: Primary Care Nurse Name: Mirna Greenfield RN Position: [facility] RN Member Role: Primary Care Nurse Name: Nessa Bonilla RN Position: [facility] Jelly Filter Tender Member Role: Primary Care Nurse Care Team Related Persons Name: DINESH SARGENT Address: home [address] [address] Name: BON DE Address: home [address] [place] [address]
--- OUTSIDE RECORDS SUMMARY | 2024-06-24 14:18 | XMS_ITS | Continuity of Care Document ---
Author Organization [facility] Address [address] [place] [address]- Care Team Providers Care Net Web Developer Name Role Phone Kareen HENNING, Patrick Graham Primary Care Physician [phone] Encounter [facility] Date(s): 03/04/20 - 04/03/20 [facility] [address] [place] [address]- [facility] Allergies, Adverse Reactions, Alerts Substance Reaction [...] Comment: [facility]# [id number] 2Result Comment: [05/25/2018] [facility] lot number [id number] exp 01/26/2019 [facility] [id number] 3Result Comment: [08/20/2017] [facility] [id number] 4Admin Note: VIM dated 01/29/12 GIVEN TODAY 5Result Comment: [facility]#[id number] 6Admin Note: VIM dated 08/22/11 GIVEN TODAY [...] PUFFS EVERY 6 HOURS NEEDED FOR WHEEZE, [facility]/pharmacy #2024 Start Date: 05/27/19 Status: Ordered diclofenac 1% topical gel 1 applicator, Topically, 4 times a day, # 100 Gm, 0 Refills, Maintenance, 02/18/20 11:51:00 EDT, Gel, [facility]/pharmacy #2024, 161, cm, 01/08/20 13:51:00 EDT, Height Start Date: 02/18/20 Status: Ordered FLUoxetine 20 mg oral capsule 20 mg, 1, capsule, By Mouth, Daily, # 30 capsule, Refills 4, Tot. Refills 4, Maintenance, 08/30/19 20:34:00 EST, Route to Pharmacy Electronically, [facility]/pharmacy #2024, replacing 10mg dose, 161, cm, 08/12/19 12:43:00 EST, Height Start Date: 08/30/19 Status: Ordered levothyroxine 125 mcg (0.125 mg) oral tablet 1 tablet = 125 mcg, By Mouth, Daily, # 30 tablet, 5 Refills, Maintenance, 11/11/19 14:50:00 EDT, Tablet, [facility]/pharmacy #2024, 161, cm, 10/07/19 9:57:00 EDT, Height Start Date: 11/11/19 Status: Ordered meloxicam 15 mg oral tablet 1 tablet = 15 mg, By Mouth, Daily, Take w food., # 30 tablet, 1 Refills, Maintenance, 03/04/20 14:47:00 EDT, Tablet, [facility]/pharmacy #2024, Labs needed for further [...] 08/04/19 17:54:00 EST, Route to Pharmacy Electronically, [facility]/pharmacy #5, 161, cm, 08/04/19 14:44:00 [...] 04/17/20 12:28:00 EDT, 12/19/19 12:28:00 EDT, Tablet, [facility]/pharmacy#5, 161, cm, 10/07/19 9:57:00 EDT, [...]
--- OUTSIDE RECORDS SUMMARY | 2024-06-24 14:18 | XMS_ITS | Continuity of Care Document ---
Author Organization [facility] Address [address] [place] [address]- Care Team Providers Care Tower Cleaner Name Role Phone Noe KITCHEN DESIGNER, Mónica Graham Primary Care Physician Encounter [facility] Date(s): 08/25/21 - 09/01/21 [facility] [address] [place] [address]- Attending Physician: Aiyana HENNING, Celina Graham Allergies, Adverse Reactions, Alerts No Known Allergies [...] 08/13/12 Given 1Result Comment: [facility]# [id number] 2Result Comment: [05/25/2018] [facility] lot number [id number] exp 01/26/2019 [facility] [id number] 3Result Comment: [08/20/2017] [facility] [id number] 4Admin Note: VIM dated 01/29/12 GIVEN TODAY 5[facility][id number] 6Admin Note: VIM dated 08/22/11 GIVEN TODAY [...] 16:52:00 EST, [place], Route to Pharmacy Electronically, [id number], [facility]/pharmacy #2024, 160.02, cm, 07/25/21 16:20:00 [...] 07/25/21 16:53:00 EST, Route to Pharmacy Electronically, [id number], [facility]/pharmacy #5, 160.02, cm, 07/25/21 16:20:00 EST, Height, 143... Start Date: 07/25/21 Status: Ordered diclofenac 1% topical gel See Instructions, APPLY TOPICALLY 4 TIMES A DAY, # 100 Gm, 1 Refills, 10/27/20 12:37:00 EDT, [facility]/pharmacy #202, 25, APPLY TOPICALLY 4 TIMES A DAY, 160.02, cm, 10/19/20 11:04:00 EDT, Height, 156.81, kg, 10/19/20 11:04:00 EDT, Dry Weight Start Date: 10/27/20 Status: Ordered Flonase 50 mcg/inh nasal spray See Instructions, 2 sprays Nares twice daily x 1 week, then once daily x 1-2 weeks until symptoms improve, # 16 Gm, 0 Refills, Maintenance, 02/28/21 16:31:00 EDT, [place], [facility]/pharmacy #202, Partial fill upon patient request if the prescription is for... Start Date: 02/28/21 Status: Ordered FLUoxetine 10 mg oral capsule 10 mg, 1, capsule, By Mouth, Daily, Take with 20mg capsule for total of 30mg daily, # 90 capsule, Refills 1, Tot. Refills 1, Maintenance, 05/04/21 16:44:00 EDT, Route to Pharmacy Electronically, [facility]/pharmacy #202, Partial fill upon patient request if... Start Date: 05/04/21 Status: Ordered FLUoxetine 20 mg oral capsule 20 mg, 1, capsule, By Mouth, Daily, Take with Fluoxetine 10mg for a total of 30mg, # 90 capsule, Refills 1, Tot. Refills 1, Maintenance, 05/04/21 16:44:00 EDT, Route to Pharmacy Electronically, [facility]/pharmacy #202, replacing 10mg dose, 160.02, cm, 08/0... Start Date: 05/04/21 Status: Ordered levothyroxine 0.137 mg oral tablet See Instructions, Take 1 tablet by mouth on days 1-6, then take 2 tablets by mouth on day 7, # 121 tablet, 5 Refills, Maintenance, 12/07/20 9:46:00 EDT, [facility]/pharmacy #202, 160.02, cm, 10/19/20 11:04:00 EDT, Height, 156.81, kg, 10/19/20 11:04:00 EDT,... Start Date: 12/07/20 Status: Ordered meclizine 25 mg oral tablet See Instructions, PRN Dizziness, 1 tablet By Mouth 3 times a day, # 30 tablet, 0 Refills, Maintenance, 05/11/21 13:11:00 EDT, [facility]/pharmacy #202, Partial fill upon patient request if the prescriptionis for a schedule II opioid drug., 160.02, cm, ... Start Date: 05/11/21 Status: Ordered meloxicam 15 mg oral tablet 1 tablet, By Mouth, Daily, WITH FOOD., # 30 tablet, 0 Refills, [facility], 160.02, cm, 05/06/21 10:09:00 EDT, Height, 143, [...] 08/04/19 17:54:00 EST, Route to Pharmacy Electronically, [facility]/pharmacy #2024, 161, cm, 08/04/19 [...] 09/08/21 13:11:00 EST, 05/11/21 13:11:00 EDT, Tablet, [facility]/pharmacy#2025, 160.02, cm, 05/06/21 10:09:00 EDT, Height,... Start [...]
--- OUTSIDE RECORDS SUMMARY | 2024-06-24 14:18 | XMS_ITS | Continuity of Care Document ---
Author Organization [facility] Address [address] [place] [address]- Care Team Providers Care Cook Box Filler Name Role Phone Vivi HENNING, Celestina Givens Primary Care Physician [facility] Date[facility] 03/28[facility]24 - 04/27/24 [facility] [address] [place] [address]- Allergies, Adverse Reactions, Alerts No Known Allergies [...] 08/21/22 Given tetanus/diphtheria/pertussis, acel(Tdap) 7 08/13/12 Given LIBG-VmP-3aALZ 12y+ bivalent booster vax 06/14/22 Recorded SARS-CoV-2 mRNA (eojlewt-fxsk-qlddf) vax 02/14/22 Recorded SARS-CoV-2 (COVID-19) mRNA BNT-162b2 vac 05/06/21 Given SARS-CoV-2 (COVID-19) mRNA BNT-162b2 vac 11/04/20 Recorded SARS-CoV-2 (COVID-19) mRNA BNT-162b2 vac 10/14/20 Recorded pneumococcal 23-valent vaccine 8 04/07/19 Given 1Result Comment: screening negative 2Result Comment: [facility]# [id number] 3Result Comment: [05/25/2018] [facility] lot number [id number] exp 01/26/2019 [facility] 29522-323-69 4Result Comment: [08/20/2017] [facility] [phone] 5Admin Note: VIM dated 01/29/12 GIVEN TODAY 6Result Comment: [facility]# [phone] 7Admin Note: VIM dated 08/22/11 GIVEN TODAY 8Result Comment: [facility]#[id number] Medications acetaminophen 500 mg oral capsule 2 [...] Gm, 0 Refills, Maintenance, 02/28/21 16:31:00 EDT, [place], [facility]/pharmacy #2024, Partial fill upon patient request if the prescription is for... Start Date: 02/28/21 Status: Ordered FLUoxetine 10 mg oral capsule 1, capsule, By Mouth, Daily, INSTR:TO BE TAKEN WITH 20MG CAPSULES TO EQUAL 30MG DAILY, # 90 capsule, Refills 1, Maintenance, 01/25/24 9:11:00 EDT, Route to Pharmacy Electronically, [facility] STORE [facility]42, 157.5, cm, 01/22/24 10:31:00 EDT, Height, 145.9, [...] Refills, Maintenance, 12/28/23 16:17:00 EDT, [facility], 157.5, cm, 10/18/23 15:15:00 EDT, Height, 145.9, [...] Refills, Maintenance, 03/28/24 7:37:00 EDT, [facility]/pharmacy #2025, 157.5, cm, 02/12/24 14:48:00 EDT, Height, 145.9, kg, :39:00 EDT, Dry Weight Start Date: 03/28/24 Status: Ordered metFORMIN 500 mg oral tablet, extended release 1 tablet = 500 mg, By Mouth, Daily, # 90 tablet, 1 Refills, Maintenance, 01/22/24 11:02:00 EDT, ER Tablet, [facility]/pharmacy #2025, Partial fill [...] Refills, Maintenance, 03/31/24 17:50:00 EDT, [facility]/pharmacy #5, Partial [...] Code MRI Safety Implantable Status Assigning Authority [id number] Unknown [id number] Unknown 08/26/24 Unknown Unknown Active GS1 Patient Care team information Care Team Personnel Name: Celestina Trinidad MD Position: [facility] Physician - Primary Care Member Role: PCP Address: Address: [address] [place] [id number] Name: Hemalatha Lucas RN Position: [facility] RN Member Role: Primary Care Nurse Name: Lauren Mack RN Position: [facility] RN Member Role: Primary Care Nurse Name: Madelaine Ruiz RN Position: [facility] RN Member Role: Primary Care Nurse Name: Lora Santiago RN Position: [facility] SN RN Member Role: Primary Care Nurse Name: Mayco Ro RN Position: [facility] RN Member Role: Primary Care Nurse Name: Heydi Potts RN Position: [facility] SN RN Member Role: Primary Care Nurse Name: Janice Romano LPN Position: [facility] RN Member Role: Primary Care Nurse Name: Nadya Low RN Position: [facility] RN Member Role: Primary Care Nurse Name: Mirna Greenfield RN Position: [facility] RN Member Role: Primary Care Nurse Name: Nessa Bonilla RN Position: [facility] Tower Attendant Member Role: Primary Care Nurse Care Team Related Persons Name: DINESH SARGENT Address: home [address] [place] [address] Name: BON DE Address: [address] [address]
--- OUTSIDE RECORDS SUMMARY | 2024-06-24 14:18 | XMS_ITS | Continuity of Care Document ---
Author Organization [facility] Address [address] [place] [address]- Care Team Providers Care Yarding And Folding Machine Operator Name Role Phone Yolanda AHN, Padmaja Pelayo Primary Care Physician [place] [facility] [place]19[place] - 11/18/21 [facility] [address] [place] [address]- Allergies, Adverse Reactions, Alerts No Known Allergies [...] [facility]# [id number] 2Result Comment: [05/25/2018] [facility] lot number [id number] exp 01/26/2019 [facility] 54009-149-68 3Result Comment: [08/20/2017] [facility] 63009-569-45 4Admin Note: VIM dated 01/29/12 GIVEN TODAY 5Result Comment: [facility]#[id number] 6Admin Note: VIM dated 08/22/11 GIVEN TODAY [...] Replace Required Details, Route to Pharmacy Electronically, [id number]... Start Date: 10/28/21 Status: Ordered Aerochamber w/Mask [...] 07/25/21 16:53:00 EST, Route to Pharmacy Electronically, [id number], [facility]/pharmacy #5, 160.02, cm, 07/25/21 16:20:00 EST, Height, [...] Gm, 0 Refills, Maintenance, 02/28/21 16:31:00 EDT, [place], [facility]/pharmacy #2025, [...] [place], Partial fill upon patient request if... [...] # 96 tablet, 1 Refills, [facility] STORE 20796, 160.02, cm, 10/04/21 10:38:00 EST, Height, 143, kg, 01/04/21 10:42:00 EDT, Dry Weight Start Date: 11/08/21 Status: Ordered meclizine 25 mg oral tablet See Instructions, PRN Dizziness, 1 tablet By Mouth 3 times a day, # 30 tablet, 0 Refills, Maintenance, 05/11/21 13:11:00 EDT, [facility]/pharmacy #2025, [...]
--- OUTSIDE RECORDS SUMMARY | 2024-06-24 14:18 | XMS_ITS | Continuity of Care Document ---
Author Organization [facility] Address [address] [place] [address]- Care Team Providers Care Marine Steam Fitter Helper Name Role Phone Florentino AHN, Elder Hannah Primary Care Physician [facility] Date[facility] - [facility] [address] [place] [address]- Attending Physician: Calixto Beltran Admitting Physician: Calixto [...] Given 1Result Comment: [facility]# 32777-498-10 2Result Comment: [05/25/2018] [facility] lot number [id number] exp 01/26/2019 [facility] 23232-107-75 3Result Comment: [08/20/2017] [facility] 98764-926-16 4Admin Note: VIM dated 01/29/12 GIVEN TODAY 5Result Comment: [facility]#[id number] 6Admin Note: VIM dated 08/22/11 GIVEN TODAY [...] PUFFS EVERY 6 HOURS NEEDED FOR WHEEZE, [facility]/pharmacy #2024 Start Date: 05/27/19 Status: Ordered diclofenac 1% topical gel See Instructions, APPLY TOPICALLY 4 TIMES A DAY, # 100 Gm, 0 Refills, Maintenance, [facility], APPLY TOPICALLY 4 TIMES A DAY, 161, cm, 06/08/20 13:48:00 EST, Height Start Date: 07/12/20 Status: Ordered FLUoxetine 20 mg oral capsule 20 mg, 1, capsule, By Mouth, Daily, # 30 capsule, Refills 5, Tot. Refills 5, Maintenance, 05/13/20 9:34:00 EDT, Route to Pharmacy Electronically, [facility]/pharmacy #2024, replacing 10mg dose, 161, cm, 05/13/20 8:28:00 EDT, Height Start Date: 05/13/20 Status: Ordered levothyroxine 0.137 mg oral tablet See Instructions, Take 1 tablet by mouth on days 1-6, then take 2 tablets by mouth on day 7, # 121 tablet, 1 Refills, Maintenance, 08/31/20 7:32:00 EST, [facility]/pharmacy #2024, 161, cm, 08/18/20 15:29:00EST, Height Start Date: 08/31/20 Status: Ordered meloxicam 15 mg oral tablet 1 tablet, By Mouth, Daily, WITH FOOD., # 30 tablet, 1 Refills, Maintenance, 08/30/20 7:37:00 EST, [facility], 161, cm, 08/18/20 15:29:00 EST, Height Start [...] 08/04/19 17:54:00 EST, Route to Pharmacy Electronically, [facility]/pharmacy #2025, 161, cm, 08/04/19 14:44:00 EST, Height Start Date: 08/04/19 Stop Date: 08/18/19 Status: Ordered traMADol 50 mg oral tablet 2 tablet = 100 mg, By Mouth, Every 12 hours, for 30 days, as needed for pain masspat checked, # 120tablet, 2 Refills, Hard Stop 11/15/20 16:20:00 EDT, 08/17/20 16:20:00 EST, [facility]/pharmacy #2025, 161,cm, 06/08/20 13:48:00 EST, Height Start Date: [...]
--- OUTSIDE RECORDS SUMMARY | 2024-06-24 14:18 | XMS_ITS | Continuity of Care Document ---
Author Organization [facility] Address [address] [place] [address]- Care Team Providers Care Gasoline Pump Installer Name Role Phone Vivi HENNING, Celestina Givens Primary Care Physician [facility] Date[facility]s): 11/13/22 - 12/13/22 [facility] [address] [place], [place] [address] Allergies, Adverse Reactions, Alerts No Known Allergies Immunizations Given and Recorded Vaccine Date Status Refusal Reason tetanus/diphtheria/pertussis, acel(Tdap) 1 08/21/22 Given tetanus/diphtheria/pertussis, acel(Tdap) 2 08/13/12 Given MDPV-SnY-7xBEB 12y+ bivalent booster vax 06/14/22 Recorded influenza [...] inactivated 6 07/31/12 Gi hali SARS-CoV-2 mRNA (ajmnjeu-miwz-ufmau) vax 02/14/22 Recorded SARS-CoV-2 (COVID-19) mRNA BNT-162b2 vac 05/06/21 Given SARS-CoV-2 (COVID-19) mRNA BNT-162b2 vac 11/04/20 Recorded SARS-CoV-2 (COVID-19) mRNA BNT-162b2 vac 10/14/20 Recorded pneumococcal 23-valent vaccine 7 04/07/19 Given 1Result Comment: [facility]# [id number] 2Admin Note: VIM dated 08/22/11 GIVEN TODAY 3Result Comment: [facility]# 67241-915-46 4Result Comment: [05/25/2018] [facility] lot number [id number] exp 01/26/2019 [facility] 92400-814-28 5Result Comment: [08/20/2017] [facility] 31051-403-56 6Admin Note: VIM dated 01/29/12 GIVEN TODAY 7Result Comment: [facility]#[id number] Medications acetaminophen 500 mg oral capsule 2 [...] Stop, 04/10/2215:14:00 EDT, Route to Pharmacy Electronically, [id number], [facility]/pharmacy #2025, 158, cm, 04/10/22 14:56:00 EDT, Height, 143,... Start Date: 04/10/22 Status: Ordered amLODIPine 10 mg oral tablet 1 tablet, By Mouth, Daily, # 90 tablet, 0 Refills, Maintenance, 10/23/22 12:47:00 EDT, [facility], 157, cm, 09/13/22 15:58:00 EST, Height, 145, kg, 08/29/22 20:13:00 EST, Dry Weight Start Date: 10/23/22 Status: Ordered budesonide-formoterol 80 mcg-4.5 mcg/inh inhalation aerosol with adapter 2, puffs, Inhalation, 2 times a day, PRN, use with spacer chamber, rinse mouth and throat after use, j44.9, # 1 each, Refills 6, Tot. Refills 6, Maintenance, 12/08/22 12:55:00 EDT, Aerosol, Route to Pharmacy Electronically, [id number]... Start Date: 12/08/22 Status: Ordered Compression Stockings [...] 100 Gm, 1 Refills, 09/22/22 7:28:00 EST, [facility]/pharmacy #2024, 25, APPLY TOPICALLY 4 [...] 08/31/22 13:30:00 EST, Route to Pharmacy Electronically, [facility]/pharmacy #2024, Partial fill upon patient request if the p... Start Date: 08/31/22 Status: Ordered Flonase 50 mcg/inh nasal spray See Instructions, 2 sprays Nares twice daily x 1 week, then once daily x 1-2 weeks until symptoms improve, # 16 Gm, 0 Refills, Maintenance, 02/28/21 16:31:00 EDT, [place], [facility]/pharmacy #2024, Partial fill upon patient request if the prescription is for... Start Date: 02/28/21 Status: Ordered FLUoxetine 20 mg oral capsule 1, capsule, By Mouth, Daily, # 90 capsule, Refills 1, Maintenance, 10/23/22 12:47:00 EDT, Route to Pharmacy Electronically, [facility], 157, cm, 09/13/22 15:58:00 EST, Height, 145, kg, 08/29/22 20:13:00 EST, Dry Weight Start Date: 10/23/22 Status: Ordered furosemide 20 mg oral tablet 1, tablet, By Mouth, Daily, MAY REPEAT IF NEEDED IN 2 HOURS, # 30 tablet, Refills 0, Maintenance, 11/29/22 22:18:00 EDT, Route to Pharmacy Electronically, [facility], 157, cm, 10/30/22 13:53:00 EDT, Height, 145, kg, 08/29/22 20:13:00 EST, Dry Weight Start Date: 11/29/22 Status: Ordered gabapentin 300 mg oral capsule 600 mg, 2, capsule, By Mouth, 3 times a day, # 180 capsule, Refills 3, Tot. Refills 3, Maintenance,08/25/22 22:35:00 EST, Route to Pharmacy Electronically, [facility]/pharmacy #2024, Partial fill [...] 1 Refills, Maintenance, 07/03/22 14:41:00 EST, Tablet, [facility]/pharmacy #2024, Partial fill upon patient request if the prescription is for a schedule II opioid drMelonie.. Start Date: 07/03/22 Status: Ordered meclizine 25 mg oral tablet See Instructions, PRN Dizziness, 1 tablet By Mouth 3 times a day, # 30 tablet, 0 Refills, Maintenance, 05/11/21 13:11:00 EDT, [facility]/pharmacy #2024, Partial fill upon patient request if the prescriptionis for a schedule II opioid drug., 160.02, cm, 10/0... Start Date: 05/11/21 Status: Ordered meloxicam 15 mg oral tablet See Instructions, TAKE 1 TABLET BY MOUTH DAILY WITH FOOD. LABS NEEDED FOR FURTHER REFILLS, # 30 tablet, 3 Refills, Maintenance, 10/18/22 21:31:00 EDT, [facility], 157, cm, 09/13/22 15:58:00 EST,Height, 145, kg, [...] 09/05/22 16:29:00 EST, Route to Pharmacy Electronically, [facility]/pharmacy #2024, Partialfill upon patient request [...] Team Personnel Name: Celestina Trinidad MD Position: [facility] Primary Care Physician Member Role: PCP Address: Address: [address] [place] [address]- Name: Hemalatha Lucas RN Position: [facility] RN Member Role: Primary Care Nurse Name: Lauren Mack RN Position: [facility] AMB Nurse Member Role: Primary Care Nurse Name: Madelaine Ruiz RN Position: [facility] RN Member Role: Primary Care Nurse Name: Lora Santiago RN Position: [facility] SN RN Member Role: Primary Care Nurse Name: Mayco Ro RN Position: [facility] RN Member Role: Primary Care Nurse Name: Heydi Potts RN Position: [facility] RN Member Role: Primary Care Nurse Name: Janice Romano LPN Position: [facility] RN Member Role: Primary Care Nurse Name: Nadya Low RN Position: [facility] RN Member Role: Primary Care Nurse Name: Mirna Greenfield RN Position: [facility] RN Member Role: Primary Care Nurse Name: Nessa Bonilla RN Position: [facility] Central[facility] Machine Operator Member Role: Primary Care Nurse Care Team Related Persons Name: DINESH SARGENT Address: home [address] [place] [address] Name: BON DE Address: home [address] [place] [address]
--- OUTSIDE RECORDS SUMMARY | 2024-06-24 14:18 | XMS_ITS | Continuity of Care Document ---
Author Organization [facility] Address [address] [place] [address]- Care Team Providers Care Research Specialist Name Role Phone Celestina Trinidad MD Primary Care Physician Encounter [facility] Date(s): 06/15/23 - 07/15/23 [facility] [address] [place] [address]- Allergies, Adverse Reactions, Alerts No Known Allergies [...] 08/21/22 Given tetanus/diphtheria/pertussis, acel(Tdap) 7 08/13/12 Given QRVY-XcC-3lTHD 12y+ bivalent booster vax 06/14/22 Recorded SARS-CoV-2 mRNA (bcstlxz-foor-cwayh) vax 02/14/22 Recorded SARS-CoV-2 (COVID-19) mRNA BNT-162b2 vac 05/06/21 Given SARS-CoV-2 (COVID-19) mRNA BNT-162b2 vac 11/04/20 Recorded SARS-CoV-2 (COVID-19) mRNA BNT-162b2 vac 10/14/20 Recorded pneumococcal 23-valent vaccine 8 04/07/19 Given 1Result Comment: screening negative 2Result Comment: [facility]# 84840-613-26 3Result Comment: [05/25/2018] [facility] lot number [id number] exp 01/26/2019 [facility] 22768-178-75 4Result Comment: [08/20/2017] [facility] 90017-665-66 5Admin Note: VIM dated 01/29/12 GIVEN TODAY 6Result Comment: [facility]# 28011-518-99 7Admin Note: VIM dated 08/22/11 GIVEN TODAY 8Result Comment: [facility]#[id number] Medications acetaminophen 500 mg oral capsule 2 [...] Gm, 0 Refills, Maintenance, 02/28/21 16:31:00 EDT, [place], Partial fill upon patient request [...] Maintenance,08/25/22 22:35:00 EST, Route to Pharmacy Electronically, [facility] [...] Refills, Maintenance, 02/27/23 7:25:00 EDT, [facility], 157, cm, 12/08/22 14:27:00 EDT, Height, 145, kg, 08/29/22 20:13:00 EST, Dry... Start Date: 02/27/23 Status: Ordered levothyroxine 150 mcg (0.15 mg) oral tablet 1 tablet = 150 mcg, By Mouth, Daily, # 90 tablet, 0 Refills, Maintenance, 07/15/23 17:38:00 EST, Tablet, [facility]/pharmacy #2024, Partial fill [...] tablet, 0 Refills, Maintenance, 07/10/23 11:57:00 EST, [facility]/pharmacy #2024, Partial fill [...] Code MRI Safety Implantable Status Assigning Authority [id number] Unknown [id number] Unknown 08/26/24 Unknown Unknown Active GS1 Patient Care team information Care Team Personnel Name: Celestina Trinidad MD Position: [facility] Physician - Primary Care Member Role: PCP Address: Address: [address] [place] [address]- Name: Hemalatha Lucas RN Position: [facility] RN Member Role: Primary Care Nurse Name: Lauren Mack RN Position: [facility] AMB Nurse Member Role: Primary Care Nurse Name: Madelaine Ruiz RN Position: [facility] RN Member Role: Primary Care Nurse Name: Lora Santiago RN Position: [facility] SN RN Member Role: Primary Care Nurse Name: Mayco Ro RN Position: [facility] RN Member Role: Primary Care Nurse Name: Heydi Potts RN Position: [facility] SN RN Member Role: Primary Care Nurse Name: Janice Romano LPN Position: [facility] RN Member Role: Primary Care Nurse Name: Nadya oLw RN Position: [facility] RN Member Role: Primary Care Nurse Name: Mirna Greenfield RN Position: [facility] RN Member Role: Primary Care Nurse Name: Nessa Bonilla RN Position: [facility] Roofer Applicator Member Role: Primary Care Nurse Care Team Related Persons Name: DINESH SARGENT Address: home [address] [place] [address] Name: BON DE Address: home [address] [place] [address]
--- OUTSIDE RECORDS SUMMARY | 2024-06-24 14:18 | XMS_ITS | Continuity of Care Document ---
Author Organization [facility] Address [address] [place] [address]- Care Team Providers Care Solar Photovoltaic Installer Name Role Phone Yolanda AHN, Padmaja Pelayo Primary Care Physician [facility] Date[facility]s): 09/19/21 - 10/19/21 [facility] [address] [place] [address]- Allergies, Adverse Reactions, Alerts No Known Allergies [...] acel(Tdap) 6 08/13/12 Given 1Result Comment: [facility]# [id number] 2Result Comment: [05/25/2018] [facility] lot number [id number] exp 01/26/2019 [facility] 63505-870-42 3Result Comment: [08/20/2017] [facility] 39291-586-25 4Admin Note: VIM dated 01/29/12 GIVEN TODAY 5Result Comment: [facility]#[id number] 6Admin Note: VIM dated 08/22/11 GIVEN TODAY [...] Replace Required Details, Route to Pharmacy Electronically, [id number]... Start Date: 09/15/21 Status: Ordered Aerochamber w/Mask [...] 07/25/21 16:53:00 EST, Route to Pharmacy Electronically, [id number], [facility]/pharmacy #2025, 160.02, cm, 07/25/21 16:20:00 EST, Height, [...] 0 Refills, Maintenance, 02/28/21 16:31:00 EDT, [place], [facility]/pharmacy #2024, Partial fill upon patient request if the prescription is for... Start Date: 02/28/21 Status: Ordered FLUoxetine 10 mg oral capsule 10 mg, 1, capsule, By Mouth, Daily, Take with 20mg capsule for total of 30mg daily, # 90 capsule, Refills 1, Tot. Refills 1, Maintenance, 09/19/21 12:45:00 EST, Route to Pharmacy Electronically, [facility]/pharmacy #2024, Partial fill upon patient request if... Start Date: 09/19/21 Status: Ordered FLUoxetine 20 mg oral capsule 20 mg, 1, capsule, By Mouth, Daily, Take with Fluoxetine 10mg for a total of 30mg, # 90 capsule, Refills 1, Tot. Refills 1, Maintenance, 05/04/21 16:44:00 EDT, Route to Pharmacy Electronically, [facility]/pharmacy #202, replacing 10mg dose, 160.02, cm, 08/0... Start Date: 05/04/21 Status: Ordered levothyroxine 0.137 mg oral tablet See Instructions, Take 1 tablet by mouth on days 1-6, then take 2 tablets by mouth on day 7, # 121 tablet, 5 Refills, Maintenance, 12/07/20 9:46:00 EDT, [facility]/pharmacy #202, 160.02, cm, 10/19/20 11:04:00 EDT, Height, 156.81, kg, 10/19/20 11:04:00 EDT,... Start Date: 12/07/20 Status: Ordered meclizine 25 mg oral tablet See Instructions, PRN Dizziness, 1 tablet By Mouth 3 times a day, # 30 tablet, 0 Refills, Maintenance, 05/11/21 13:11:00 EDT, [facility]/pharmacy #202, Partial fill upon patient request if the prescriptionis for a schedule II opioid drug., 160.02, cm, 10/0... Start Date: 05/11/21 Status: Ordered meloxicam 15 mg oral tablet 1 tablet, By Mouth, Daily, WITH FOOD., # 30 tablet, 3 Refills, 09/19/21 12:46:00 EST, [facility]/pharmacy #2025, 160.02, cm, 07/25/21 16:20:00 EST, Height, [...] 13:47:00 EST, Aerosol, Route to Pharmacy Electronically, [id number], [facility]/pharmacy #2024, 160.02, cm, 07/25/21 16:20:00 EST, [place]... Start Date: 10/03/21 Status: Ordered traMADol 50 mg oral tablet 2 tablet = 100 mg, By Mouth, Every 12 hours, as needed for pain masspat checked, # 112 tablet, 0 Refills, Maintenance, 09/20/21 10:55:00 EST, [facility]/pharmacy #5, 160.02, cm, 07/25/21 16:20:00 EST, Height, 143, kg, 01/04/21 10:42:00 EDT, Dry Weight Start Date: 09/20/21 Stop Date: 10/18/21 Status: Ordered zolpidem 10 mg oral tablet 1 tablet = 10 mg, By Mouth, Daily at bedtime, PRN for sleep, for 30 days, masspat check may fill less, # 30 tablet, 3 Refills, Acute 01/20/22 10:19:00 EDT, 09/22/21 10:19:00 EST, Tablet, [facility]/pharmacy#5, 160.02, cm, 07/25/21 16:20:00 EST, Height,... Start [...]
--- OUTSIDE RECORDS SUMMARY | 2024-06-24 14:18 | XMS_ITS | Continuity of Care Document ---
Author Organization [facility] Address [address] [place] [address]- Care Team Providers Care Clinical Secretary Name Role Phone Vivi HENNING, Celestina Givens Primary Care Physician [place] [facility] [place]23 - 01/27/24 [facility] [address] [place] [address]- Allergies, Adverse Reactions, Alerts No Known Allergies [...] 08/21/22 Given tetanus/diphtheria/pertussis, acel(Tdap) 7 08/13/12 Given [id number]-[id number]-[id number] 12y+ bivalent booster vax 06/14/22 Recorded SARS-CoV-2 mRNA (tbsjwod-qvgr-zjcsc) vax 02/14/22 Recorded SARS-CoV-2 (COVID-19) mRNA BNT-162b2 vac 05/06/21 Given SARS-CoV-2 (COVID-19) mRNA BNT-162b2 vac 11/04/20 Recorded SARS-CoV-2 (COVID-19) mRNA BNT-162b2 vac 10/14/20 Recorded pneumococcal 23-valent vaccine 8 04/07/19 Given 1Result Comment: screening negative 2Result Comment: [facility]# [id number] 3Result Comment: [05/25/2018] [employer] lot number [id number] exp 01/26/2019 [facility] [id number] 4Result Comment: [08/20/2017] [facility] [id number] 5Admin Note: VIM dated 01/29/12 GIVEN TODAY 6Result Comment: [facility]# [id number] 7Admin Note: VIM dated 08/22/11 GIVEN TODAY 8Result Comment: [facility]#[id number] Medications acetaminophen 500 mg oral capsule 2 [...] Gm, 0 Refills, Maintenance, 02/28/21 16:31:00 EDT, [place], [facility], Partial fill upon patient request if the prescription is for... Start Date: 02/28/21 Status: Ordered FLUoxetine 10 mg oral capsule 1, capsule, By Mouth, Daily, INSTR:TO BE TAKEN WITH 20MG CAPSULES TO EQUAL 30MG DAILY, # 90 capsule, Refills 1, Maintenance, 01/25/24 9:11:00 EDT, Route to [facility]acy Electronically, [facility], 157.5, cm, 01/22/24 10:31:00 EDT, Height, 145.9, [...] Refills, Maintenance, 12/28/23 16:17:00 EDT, [facility], 157.5, cm, 10/18/23 15:15:00 EDT, Height, 145.9, [...] may filll this prescription for fewer pills. [facility], # 20 tablet, Refills 0, Tot. [...] Code MRI Safety Implantable Status Assigning Authority [id number] [id number] Unknown [id number] 4 Unknown 08/26/24 Unknown Unknown Active GS1 Patient Care team information Care Team Personnel Name: Celestina Trinidad MD Position: [facility] Physician - Primary Care Member Role: PCP Address: Address: [address] [place] [address] Name: Hemalatha Lucas RN Position: [facility] RN Member Role: Primary Care Nurse Name: Lauren Mack RN Position: [facility] AMB Nurse Member Role: Primary Care Nurse Name: Madelaine Ruiz RN Position: [facility] RN Member Role: Primary Care Nurse Name: Lora Santiago RN Position: [facility] SN RN Member Role: Primary Care Nurse Name: Mayco Ro RN Position: [facility] RN Member Role: Primary Care Nurse Name: Heydi Potts RN Position: [facility] SN RN Member Role: Primary Care Nurse Name: Janice Romano LPN Position: [facility] RN Member Role: Primary Care Nurse Name: Nadya Low RN Position: [facility] RN Member Role: Primary Care Nurse Name: Mirna Greenfield RN Position: [facility] RN Member Role: Primary Care Nurse Name: Nessa Bonilla RN Position: [facility] Fitting Room Checker Member Role: Primary Care Nurse Care Team Related Persons Name: DINESH SARGENT Address: home [address] [place] [address] Name: BON DE Address: home [address] [address]
--- OUTSIDE RECORDS SUMMARY | 2024-06-24 14:18 | XMS_ITS | Continuity of Care Document ---
Author Organization [facility] Address [address] [place] [address]- Care Team Providers Care Supervisor Operations Name Role Phone Celestina Trinidad MD Primary Care Physician Encounter [facility] Date(s): 10/23/23 - 11/22/23 [facility] [address] [place] [address]- Allergies, Adverse Reactions, Alerts No Known Allergies [...] 08/21/22 Given tetanus/diphtheria/pertussis, acel(Tdap) 7 08/13/12 Given [id number]-[id number]-[id number] 12y+ bivalent booster vax 06/14/22 Recorded SARS-CoV-2 mRNA (jwbstou-ghin-jqdya) vax 02/14/22 Recorded SARS-CoV-2 (COVID-19) mRNA BNT-162b2 vac 05/06/21 Given SARS-CoV-2 (COVID-19) mRNA BNT-162b2 vac 11/04/20 Recorded SARS-CoV-2 (COVID-19) mRNA BNT-162b2 vac 10/14/20 Recorded pneumococcal 23-valent vaccine 8 04/07/19 Given 1Result Comment: screening negative 2Result Comment: [facility]# [id number] 3Result Comment: [05/25/2018] [employer] lot number [id number] exp 01/26/2019 [facility] [id number] 4Result Comment: [08/20/2017] [facility] [id number] 5Admin Note: VIM dated 01/29/12 GIVEN TODAY 6Result Comment: [facility]# [id number] 7Admin Note: VIM dated 08/22/11 GIVEN TODAY 8Result Comment: [facility]#[id number] Medications acetaminophen 500 mg oral capsule 2 [...] 05/17/23 16:45:00 EDT, Route to Pharmacy Electronically, [facility]/pharmacy #2024, Partial fill upon patient request if the presc... Start Date: 05/17/23 Stop Date: 05/17/24 Status: Ordered diclofenac 1% topical gel See Instructions, APPLY TO AFFECTED AREA 4 TIMES A DAY, # 100 Gm, 1 Refills, Maintenance, 11/07/23 7:48:00 EDT, [facility]/pharmacy #2024, 25, APPLY TO [...] Gm, 0 Refills, Maintenance, 02/28/21 16:31:00 EDT, [place], [facility], Partial fill upon patient request [...] 07/31/23 19:01:00 EST, Route to Pharmacy Electronically, [facility]/pharmacy #2024, 157.5, cm, 07/13/23 9:57:00 EST, Height, 145.9, kg, 05/22/23 7:39:00 EDT, Dry Weight Start Date: 07/31/23 Status: Ordered gabapentin 300 mg oral capsule 600 mg, 2, capsule, By Mouth, 3 times a day, # 180 capsule, Refills 3, Tot. Refills 3, Maintenance,08/25/22 22:35:00 EST, [facility] Partial fill upon patient request if [...] tablet, 0 Refills, Maintenance, 10/12/23 6:42:00 EDT, [facility]/pharmacy #2024, 157.5, cm, 07/13/23 9:57:00 EST, Height, 145.9, kg, 05/22/23 7:39:00 EDT, Dry Weight Start Date: 10/12/23 Status: Ordered meclizine 25 mg oral tablet See Instructions, PRN Dizziness, 1 tablet By Mouth 3 times a day, # 30 tablet, 0 Refills, Maintenance, 02/27/23 10:43:00 EDT, [facility]/pharmacy #2024, Partial fill upon patient request if the prescriptionis for a schedule II opioid drug., 157, cm, ... Start Date: 02/27/23 Status: Ordered meloxicam 15 mg oral tablet See Instructions, TAKE 1 TABLET BY MOUTH DAILY WITH FOOD., # 30 tablet, 5 Refills, Maintenance, 10/08/23 17:05:00 EDT, [facility]/pharmacy #2024, 157.5, cm, 07/13/23 9:57:00 EST, Height, 145.9, kg, :39:00 EDT, Dry Weight Start Date: 10/08/23 Status: Ordered metFORMIN 500 mg oral tablet, extended release 1 tablet = 500 mg, By Mouth, Daily, # 90 tablet, 1 Refills, Maintenance, 10/24/23 11:39:00 EDT, ER Tablet, [facility]/pharmacy #2024, Partial fill upon [...] 1 Refills, Maintenance, 07/15/23 17:38:00 EST, Capsule, [facility]/pharmacy #2024, Partial fill upon patient request if the prescription is for a schedule II opioid drug., 157.5, cm, 07/13/23 9:57:00 EST, He... Start Date: 07/15/23 Status: Ordered zolpidem 10 mg oral tablet 1 tablet = 10 mg, By Mouth, Daily at bedtime, # 30 tablet, 0 Refills, Maintenance, 11/05/23 16:28:00 EDT, [facility]/pharmacy #2025, Partial fill upon [...] Code MRI Safety Implantable Status Assigning Authority [id number] 731 Unknown [id number] Unknown 08/26/24 Unknown Unknown Active GS1 Patient Care team information Care Team Personnel Name: Celestina Trinidad MD Position: S Physician - Primary Care Member Role: PCP Address: Address: [address] [place] [address] Name: Hemalatha Lucas RN Position: [facility] RN Member Role: Primary Care Nurse Name: Lauren Mack RN Position: [facility] AMB Nurse Member Role: Primary Care Nurse Name: Madelaine Ruiz RN Position: [facility] RN Member Role: Primary Care Nurse Name: Lora Santiago RN Position: [facility] SN RN Member Role: Primary Care Nurse Name: Mayco Ro RN Position: [facility] RN Member Role: Primary Care Nurse Name: Heydi Potts RN Position: [facility] RN Member Role: Primary Care Nurse Name: Janice Romano LPN Position: [facility] RN Member Role: Primary Care Nurse Name: Nadya Low RN Position: [facility] RN Member Role: Primary Care Nurse Name: Mirna Greenfield RN Position: [facility] RN Member Role: Primary Care Nurse Name: Nessa Bonilla RN Position: [facility] [employer] Custom Member Role: Primary Care Nurse Care Team Related Persons Name: ROSETTAROLADINESH Address: home [address] [place] [address] Name: BON DE Address: home [facility] [address] [place] [address]
--- OUTSIDE RECORDS SUMMARY | 2024-06-24 14:18 | XMS_ITS | Continuity of Care Document ---
Author Organization [facility] Address [address] [place] [address]- Care Team Providers Care Quarter Supervisor Name Role Phone Vivi HENNING, Celestina Givens Primary Care Physician Encounter [facility] Date(s): 12/29/22 - 01/28/23 [facility] [address] [place] [address]- Allergies, Adverse Reactions, Alerts No Known Allergies Immunizations Given and Recorded Vaccine Date Status Refusal Reason tetanus/diphtheria/pertussis, acel(Tdap) 1 08/21/22 Given tetanus/diphtheria/pertussis, acel(Tdap) 2 08/13/12 Given [id number]-[id number] 12y+ bivalent booster vax 06/14/22 Recorded influenza [...] inactivated 6 07/31/12 Gi hali SARS-CoV-2 mRNA (chmkzna-kptj-qstny) vax 02/14/22 Recorded SARS-CoV-2 (COVID-19) mRNA BNT-162b2 vac 05/06/21 Given SARS-CoV-2 (COVID-19) mRNA BNT-162b2 vac 11/04/20 Recorded SARS-CoV-2 (COVID-19) mRNA BNT-162b2 vac 10/14/20 Recorded pneumococcal 23-valent vaccine 7 04/07/19 Given 1Result Comment: [facility]# [id number] 2Admin Note: VIM dated 08/22/11 GIVEN TODAY 3Result Comment: [facility]# [id number] 4Result Comment: [05/25/2018] [employer] lot number [id number] exp 01/26/[address] [facility] 75729-483-03 5Result Comment: [08/20/2017] [facility] 83573-077-49 6Admin Note: VIM dated 01/29/12 GIVEN TODAY 7Result Comment: [facility]#[id number] Medications acetaminophen 500 mg oral capsule 2 [...] Stop, 04/10/2215:14:00 EDT, Route to Pharmacy Electronically, [id number], [facility]/pharmacy #2025, 158, cm, 04/10/22 14:56:00 EDT, Height, 143,... Start Date: 04/10/22 Status: Ordered amLODIPine 10 mg oral tablet 1 tablet, By Mouth, Daily, # 90 tablet, 0 Refills, Maintenance, 10/23/22 12:47:00 EDT, [facility] 20[facility], 157, cm, 09/13/22 15:58:00 EST, Height, 145, kg, 08/29/22 20:13:00 EST, Dry Weight Start Date: 10/23/22 Status: Ordered budesonide-formoterol 80 mcg-4.5 mcg/inh inhalation aerosol with adapter 2, puffs, Inhalation, 2 times a day, PRN, use with spacer chamber, rinse mouth and throat after use, j44.9, # 1 each, Refills 6, Tot. Refills 6, Maintenance, 12/08/22 12:55:00 EDT, Aerosol, Route to Pharmacy Electronically, [id number]... Start Date: 12/08/22 Status: Ordered Compression Stockings [...] 100 Gm, 1 Refills, Maintenance, 01/08/23 9:36:00EDT, [facility] 78267, 50, APPLY TOPICALLY 4 TIMES A DAY, 157, cm, 12/08/22 14:27:00 EDT, Height, 145, kg, 08/29/22 20:13:00 EST, Dry Weight Start Date: 01/08/23 Status: Ordered docusate sodium 100 mg oral capsule 100 mg, 1, capsule, By Mouth, 2 times a day, PRN, # 20 capsule, Refills 0, Tot. Refills 0, Maintenance, as needed for constipation, 08/31/22 13:30:00 EST, Route to Pharmacy Electronically, [facility]/pharmacy #2024, Partial fill upon patient request if the p... Start Date: 08/31/22 Status: Ordered Flonase 50 mcg/inh nasal spray See Instructions, 2 sprays Nares twice daily x 1 week, then once daily x 1-2 weeks until symptoms improve, # 16 Gm, 0 Refills, Maintenance, 02/28/21 16:31:00 EDT, [place], [facility]/pharmacy #2025, Partial fill upon patient request if the prescription is for... Start Date: 02/28/21 Status: Ordered FLUoxetine 10 mg oral capsule 10 mg, 1, capsule, By Mouth, Daily, to be taken with 20mg capsules to equal 30mg daily, # 90 capsule, Refills 0, Tot. Refills 0, Maintenance, 01/18/23 9:13:00 EDT, Route to Pharmacy Electronically, [facility]/pharmacy #8915, Partial fill upon patient request... [...] 11/29/22 22:18:00 EDT, Route to Pharmacy Electronically, [facility], 157, cm, 10/30/22 13:53:00 EDT, Height, 145, [...] Refills, Maintenance, 07/03/22 14:41:00 EST, Tablet, [facility]/pharmacy #2024, Partial fill upon patient request if the prescription is for a schedule II opioid dr... Start Date: 07/03/22 Status: Ordered meclizine 25 mg oral tablet See Instructions, PRN Dizziness, 1 tablet By Mouth 3 times a day, # 30 tablet, 0 Refills, Maintenance, 05/11/21 13:11:00 EDT, [facility]/pharmacy #2024, Partial fill upon patient request if the prescriptionis for a schedule II opioid drug., 160.02, cm, 10/0... Start Date: 05/11/21 Status: Ordered meloxicam 15 mg oral tablet See Instructions, TAKE 1 TABLET BY MOUTH DAILY WITH FOOD. LABS NEEDED FOR FURTHER REFILLS, # 30 tablet, 3 Refills, Maintenance, 10/18/22 21:31:00 EDT, [facility] 91471, 157, cm, 09/13/22 15:58:00 EST,Height, 145, kg, [...] 16:29:00 EST, Route to Pharmacy Electronically, [facility]/pharmacy #202, Partialfill upon patient request if the [...] Care Member Role: PCP Address: Address: [address] [place] [id number] Name: Hemalatha Lucas RN Position: [facility] [...] [facility] Director [facility] Member Role: Primary Care Nurse Care Team Related Persons Name: DINESH SARGENT Address: home [address] [place] [address] Name: BON DE Address: [address] [address]
--- OUTSIDE RECORDS SUMMARY | 2024-06-24 14:18 | XMS_ITS | Continuity of Care Document ---
Author Organization [facility] Address [address] [address]- Care Team Providers Care High Speed Operator Name Role Phone Celestina Trinidad MD Primary Care Physician [place] [facility] [place] - 11/29/22 [facility] [address] [address]- Attending Physician: Calixto Beltran Admitting Physician: AdmtrCalixto Referring Physician: Admtr, Ar8 Allergies, Adverse Reactions, Alerts No Known Allergies Immunizations Given and Recorded Vaccine Date Status Refusal Reason tetanus/diphtheria/pertussis, acel(Tdap) 1 08/21/22 Given tetanus/diphtheria/pertussis, acel(Tdap) 2 08/13/12 Given [id number]-1rVKV 12y+ bivalent booster vax 06/14/22 Recorded influenza [...] inactivated 6 07/31/12 Gi hali SARS-CoV-2 mRNA (frtjbax-piax-plhwp) vax 02/14/22 Recorded SARS-CoV-2 (COVID-19) mRNA BNT-162b2 vac 05/06/21 Given SARS-CoV-2 (COVID-19) mRNA BNT-162b2 vac 11/04/20 Recorded SARS-CoV-2 (COVID-19) mRNA BNT-162b2 vac 10/14/20 Recorded pneumococcal 23-valent vaccine 7 04/07/19 Given 1Result Comment: [facility]# [id number] 2Admin Note: VIM dated 08/22/11 GIVEN TODAY 3Result Comment: [facility]# [id number] 4Result Comment: [05/25/2018] [employer] lot number [id number] exp 01/26/2019 [facility] 44873-549-61 5Result Comment: [08/20/2017] [facility] [id number] 6Admin Note: VIM dated 01/29/12 GIVEN TODAY 7Result Comment: [facility]#[id number] Medications acetaminophen 500 mg oral capsule 2 [...] Stop, 04/10/2215:14:00 EDT, Route to Pharmacy Electronically, [id number], [facility]/pharmacy #2025, 158, cm, 04/10/22 14:56:00 EDT, Height, 143,... Start Date: 04/10/22 Status: Ordered amLODIPine 10 mg oral tablet 1 tablet, By Mouth, Daily, # 90 tablet, 0 Refills, Maintenance, 10/23/22 12:47:00 EDT, [facility], 157, cm, 09/13/22 15:58:00 EST, Height, 145, kg, 08/29/22 20:13:00 EST, Dry Weight Start Date: 10/23/22 Status: Ordered budesonide-formoterol 80 mcg-4.5 mcg/inh inhalation aerosol with adapter 2, puffs, Inhalation, 2 times a day, PRN, use with spacer chamber, rinse mouth and throat after use, # 10.2 Gm, Refills 5, Tot. Refills 5, Maintenance, 09/12/22 11:06:00 EST, Aerosol, Route to Pharmacy Electronically, [id number]... Start Date: 09/12/22 Status: Ordered Compression Stockings See Instructions, # [...] 100 Gm, 1 Refills, 09/22/22 7:28:00 EST, [facility]/pharmacy #2024, 25, APPLY [...] 13:30:00 EST, Route to Pharmacy Electronically, [facility]/pharmacy #2024, Partial fill upon patient request if the p... Start Date: 08/31/22 Status: Ordered Flonase 50 mcg/inh nasal spray See Instructions, 2 sprays Nares twice daily x 1 week, then once daily x 1-2 weeks until symptoms improve, # 16 Gm, 0 Refills, Maintenance, 02/28/21 16:31:00 EDT, [place], [facility]/pharmacy #2024, Partial fill upon patient request if the prescription is for... Start Date: 02/28/21 Status: Ordered FLUoxetine 20 mg oral capsule 1, capsule, By Mouth, Daily, # 90 capsule, Refills 1, Maintenance, 10/23/22 12:47:00 EDT, Route to Pharmacy Electronically, [facility], 157, cm, 09/13/22 15:58:00 EST, Height, 145, kg, 08/29/22 20:13:00 EST, Dry Weight Start Date: 10/23/22 Status: Ordered furosemide 20 mg oral tablet 1, tablet, By Mouth, Daily, MAY REPEAT IF NEEDED IN 2 HOURS, # 30 tablet, Refills 0, Maintenance, 11/29/22 22:18:00 EDT, Route to Pharmacy Electronically, [facility] 276[facility], 157, cm, 10/30/22 13:53:00 EDT, Height, 145, kg, 08/29/22 20:13:00 EST, Dry Weight Start Date: 11/29/22 Status: Ordered gabapentin 300 mg oral capsule 600 mg, 2, capsule, By Mouth, 3 times a day, # 180 capsule, Refills 3, Tot. Refills 3, Maintenance,08/25/22 22:35:00 EST, Route to Pharmacy Electronically, [facility]/pharmacy #2024, Partial fill upon patient [...] Refills, Maintenance, 07/03/22 14:41:00 EST, Tablet, [facility]/pharmacy #202, Partial fill upon patient request if the prescription is for a schedule II opioid dr... Start Date: 07/03/22 Status: Ordered meclizine 25 mg oral tablet See Instructions, PRN Dizziness, 1 tablet By Mouth 3 times a day, # 30 tablet, 0 Refills, Maintenance, 05/11/21 13:11:00 EDT, [facility]/pharmacy #2024, Partial fill upon patient request if the prescriptionis for a schedule II opioid drug., 160.02, cm, 10/0... Start Date: 05/11/21 Status: Ordered meloxicam 15 mg oral tablet See Instructions, TAKE 1 TABLET BY MOUTH DAILY WITH FOOD. LABS NEEDED FOR FURTHER REFILLS, # 30 tablet, 3 Refills, Maintenance, 10/18/22 21:31:00 EDT, [facility] 499[facility], 157, cm, 09/13/22 15:58:00 EST,Height, 145, kg, [...] 16:29:00 EST, Route to Pharmacy Electronically, [facility]/pharmacy #2024, Partialfill upon patient request [...] 20:13:00 E... Start Date: 10/29/22 Status: Ordered Problem List Condition Confirmation Course [...] Celestina Trinidad MD Position: [facility] Primary Care Physician Member Role: PCP Address: Address: [address] [place] [id number] Name: Hemalatha Lucas RN Position: [facility] RN Member Role: Primary Care Nurse Name: Lauren Mack RN Position: [facility] Nurse Member Role: Primary Care Nurse Name: Madelaine Ruiz RN Position: [facility] RN Member Role: Primary Care Nurse Name: Lora Santiago RN Position: [facility] SN RN Member Role: Primary Care Nurse Name: Mayco Ro RN Position: [facility] RN Member Role: Primary Care Nurse Name: Heydi Potts RN Position: [facility] RN Member Role: Primary Care Nurse Name: Janice Romano LPN Position: [facility] RN Member Role: Primary Care Nurse Name: Nadya Low RN Position: [facility] RN Member Role: Primary Care Nurse Name: Mirna Greenfield RN Position: [facility] RN Member Role: Primary Care Nurse Name: Nessa Bonilla RN Position: [facility] Hospital Floor Sander Member Role: Primary Care Nurse Care Team Related Persons Name: DINESH SARGENT Address: home [address] [place] [address] Name: BON DE Address: [address] [address]
--- OUTSIDE RECORDS SUMMARY | 2024-06-24 14:18 | XMS_ITS | Continuity of Care Document ---
Author Organization [facility] Address [address] [place] [address]- Care Team Providers Care Tire Fabric Impregnating Range Tender Name Role Phone Vivi HENNING, Celestina Givens Primary Care Physician [facility] Date([facility]): 04/03/23 - 05/03/23 [facility] [address] [place] [address]- Allergies, Adverse Reactions, Alerts No Known Allergies Immunizations Given and Recorded Vaccine Date Status Refusal Reason tetanus/diphtheria/pertussis, acel(Tdap) 1 08/21/22 Given tetanus/diphtheria/pertussis, acel(Tdap) 2 08/13/12 Given [id number] 12y+ bivalent booster vax 06/14/22 Recorded influenza [...] inactivated 6 07/31/12 Gi hali SARS-CoV-2 mRNA ([id number]) vax 02/14/22 Recorded SARS-CoV-2 (COVID-19) mRNA BNT-162b2 vac 05/06/21 Given SARS-CoV-2 (COVID-19) mRNA BNT-162b2 vac 11/04/20 Recorded SARS-CoV-2 (COVID-19) mRNA BNT-162b2 vac 10/14/20 Recorded pneumococcal 23-valent vaccine 7 04/07/19 Given 1Result Comment: [facility]# [id number] 2Admin Note: VIM dated 08/22/11 GIVEN TODAY 3Result Comment: formerly named [facility]# [id number] 4Result Comment: [05/25/2018] [facility] lot number [id number] exp 01/26/2019 formerly named [facility] [id number] 5Result Comment: [08/20/2017] formerly named [facility] [id number] 6Admin Note: VIM dated 01/29/12 GIVEN TODAY 7Result Comment: [facility]#[id number] Medications acetaminophen 500 mg oral capsule 2 [...] Stop, 04/10/2215:14:00 EDT, Route to Pharmacy Electronically, [id number], [facility]/pharmacy #2025, 158, cm, 04/10/22 14:56:00 EDT, Height, [...] 1 Refills, Maintenance, 01/08/23 9:36:00EDT, [id number], 50, APPLY TOPICALLY 4 TIMES A DAY, [...] Gm, 0 Refills, Maintenance, 02/28/21 16:31:00 EDT, [place], [facility]/pharmacy #202, Partial fill upon patient request if the prescription is for... Start Date: 02/28/21 Status: Ordered FLUoxetine 10 mg oral capsule 10 mg, 1, capsule, By Mouth, Daily, to be taken with 20mg capsules to equal 30mg daily, # 90 capsule, Refills 1, Tot. Refills 1, Maintenance, 04/03/23 11:25:00 EDT, Route to Pharmacy Electronically, [facility]/pharmacy #2024, Partial fill upon patient reques... Start Date: 04/03/23 Status: Ordered FLUoxetine 20 mg oral capsule 1, capsule, By Mouth, Daily, # 90 capsule, Refills 1, Tot. Refills 1, Maintenance, 04/03/23 11:23:00 EDT, Route to Pharmacy Electronically, [facility]/pharmacy #2024, 157, cm, 03/14/23 11:02:00 EDT, Height,145, kg, 08/29/22 20:13:00 EST, Dry Weight Start Date: 04/03/23 Status: Ordered gabapentin 300 mg oral capsule 600 mg, 2, capsule, By Mouth, 3 times a day, # 180 capsule, Refills 3, Tot. Refills 3, Maintenance,08/25/22 22:35:00 EST, Route to Pharmacy Electronically, [facility]/pharmacy #2024, Partial fill upon patient request if [...] 2 Refills, Maintenance, 02/27/23 7:25:00 EDT, [facility] STORE [id number], 157, cm, 12/08/22 14:27:00 EDT, Height, 145, kg, 08/29/22 20:13:00 EST, Dry... Start Date: 02/27/23 Status: Ordered meclizine 25 mg oral tablet See Instructions, PRN Dizziness, 1 tablet By Mouth 3 times a day, # 30 tablet, 0 Refills, Maintenance, 02/27/23 10:43:00 EDT, [facility]/pharmacy #2024, Partial fill upon patient request if the prescriptionis for a schedule II opioid drug., 157, cm, ... Start Date: 02/27/23 Status: Ordered meloxicam 15 mg oral tablet See Instructions, TAKE 1 TABLET BY MOUTH DAILY WITH FOOD. LABS NEEDED FOR FURTHER REFILLS, # 30 tablet, 1 Refills, Maintenance, 05/01/23 14:45:00 EDT, [facility]/pharmacy #2025, 157, cm, 03/14/23 11:02:00 EDT, Height, [...] Refills, Maintenance, 02/20/23 17:17:00 EDT, [facility]/pharmacy #5, 157, cm, 12/08/2313:27:00 EDT, Height, 145, [...] Care Member Role: PCP Address: Address: [address] [place] [address] Name: Hemalatha Lucas RN Position: [facility] [...] Care Nurse Name: Nessa Bonilla RN Position: [facility] Helper Induction Member Role: Primary Care Nurse Care Team Related Persons Name: ROSETTA DINESH Address: home [address] [place] [address] Name: BON DE Address: home [address] [place] [id number]
--- OUTSIDE RECORDS SUMMARY | 2024-06-24 14:18 | XMS_ITS | Continuity of Care Document ---
Author Organization [facility] Address [address] [place] [address] [address], [address] [place] [address]- Care Team Providers Care Shipfitters Supervisor Name Role Phone Florentino AHN, Elder Hannah Primary Care Physician [phone] Encounter [facility] Date(s): 10/08/20 - 11/07/20 [facility] [address] [place] [address], [address] [place] [address]- Allergies, Adverse Reactions, Alerts Substance Reaction Severity [...] acel(Tdap) 6 08/13/12 Given 1Result Comment: [facility]# [id number] 2Result Comment: [05/25/2018] [facility] lot number [id number] exp 01/26/2019 [facility] [id number] 3Result Comment: [08/20/2017] [facility] [id number] 4Admin Note: VIM dated 01/29/12 GIVEN TODAY 5Result Comment: [facility]#[id number] 6Admin Note: VIM dated 08/22/11 GIVEN TODAY [...] 10/27/20 14:48:00 EDT, Route to Pharmacy Electronically, [id number], [facility]/pharmacy #2024, 160.02, cm, 10/19/20 11:04:00 EDT, Height, 156... Start Date: 10/27/20 Status: Ordered diclofenac 1% topical gel See Instructions, APPLY TOPICALLY 4 TIMES A DAY, # 100 Gm, 1 Refills, 10/27/20 12:37:00 EDT, [facility]/pharmacy #2024, 25, APPLY TOPICALLY 4 TIMES A DAY, 160.02, cm, 10/19/20 11:04:00 EDT, Height, 156.81, kg, 10/19/20 11:04:00 EDT, Dry Weight Start Date: 10/27/20 Status: Ordered FLUoxetine 20 mg oral capsule 20 mg, 1, capsule, By Mouth, Daily, # 30 capsule, Refills 5, Tot. Refills 5, Maintenance, 05/13/20 9:34:00 EDT, Route to Pharmacy Electronically, [facility]/pharmacy #2024, replacing 10mg dose, 161, cm, 05/13/20 8:28:00 EDT, Height Start Date: 05/13/20 Status: Ordered levothyroxine 0.137 mg oral tablet See Instructions, Take 1 tablet by mouth on days 1-6, then take 2 tablets by mouth on day 7, # 121 tablet, 5 Refills, Maintenance, 10/27/20 12:37:00 EDT, [facility]/pharmacy #2024, 160.02, cm, 10/19/20 11:04:00 EDT, Height, 156.81, kg, 10/19/20 11:04:00 EDT,... Start Date: 10/27/20 Status: Ordered meloxicam 15 mg oral tablet 1 tablet, By Mouth, Daily, WITH FOOD., # 30 tablet, 1 Refills, Maintenance, 10/24/20 10:06:00 EDT, [facility] STORE [facility], 160.02, cm, 10/19/20 11:04:00 EDT, Height, 156.81, [...] [facility], cm, 08/04/19 14:44:00 EST, Height Start Date: 08/04/19 Stop Date: 08/18/19 Status: Ordered traMADol 50 mg oral tablet 2 tablet = 100 mg, By Mouth, Every 12 hours, for 30 days, as needed for pain masspat checked, # 120tablet, 2 Refills, Hard Stop 11/15/20 16:20:00 EDT, 08/17/20 16:20:00 EST, [facility]/pharmacy #2025, 161,cm, 06/08/20 13:48:00 EST, Height Start Date: 08/17/20 Stop Date: 11/15/20 Status: Ordered traMADol 50 mg oral tablet 2 tablet = 100 mg, By Mouth, Every 12 hours, as needed for pain masspat checked, # 120 tablet, 2 Refills, Maintenance, 09/13/20 16:54:00 EST, [facility]/pharmacy #2025, 161, cm, 08/18/20 15:29:00 EST, Height [...]
--- OUTSIDE RECORDS SUMMARY | 2024-06-24 14:18 | XMS_ITS | Continuity of Care Document ---
Author Organization [facility] Address [address] [place] [address]- Care Team Providers Care Machine Tailer Name Role Phone Kareen HENNING, Patrick Graham Primary Care Physician Encounter [facility] Date(s): 10/07/19 - 10/17/19 [facility] [address] [place] [address]- [facility] Attending Physician: Calixto Beltran Admitting Physician: AdmCalixto [...] tetanus/diphtheria/pertussis, acel(Tdap) 6 08/13/12 Given 1Result Comment: [facility]# [id number] 2Result Comment: [05/25/2018] [facility] lot number [id number] exp 01/26/2019 [facility] [id number] 3Result Comment: [08/20/2017] [facility] [id number] 4Admin Note: VIM dated 01/29/12 GIVEN TODAY 5Result Comment: [facility]#[id number] 6Admin Note: VIM dated 08/22/11 GIVEN TODAY [...] PUFFS EVERY 6 HOURS NEEDED FOR WHEEZE, [facility]/pharmacy #2024 Start Date: 05/27/19 Status: Ordered diclofenac 1% topical gel 1 applicator, Topically, 4 times a day, # 100 Gm, 0 Refills, Maintenance, 08/22/19 12:32:00 EST, Gel, [facility]/pharmacy #2024, 161, cm, 08/12/19 12:43:00 EST, Height Start Date: 08/22/19 Status: Ordered FLUoxetine 20 mg oral capsule 20 mg, 1, capsule, By Mouth, Daily, # 30 capsule, Refills 4, Tot. Refills 4, Maintenance, 08/30/19 20:34:00 EST, Route to Pharmacy Electronically, [facility]/pharmacy #2024, replacing 10mg dose, [...] 2 Refills, Maintenance, 10/06/19 15:04:00 EDT, Tablet, [facility]/pharmacy #2024, Labs needed for further refills, 161, cm, 08/12/19 12:43:00 EST, Height Start Date: 10/06/19 Status: Ordered tiZANidine 2 mg oral tablet 2 mg, 1, tablet, By Mouth, Daily at bedtime, PRN, # 14 tablet, Refills 0, Tot. Refills 0, Maintenance, as needed for muscle spasm, 08/04/19 17:54:00 EST, Route to Pharmacy Electronically, [facility]/pharmacy #2025, 161, cm, 08/04/19 14:44:00 EST, Height Start Date: 08/04/19 Stop Date: 08/18/19 Status: Ordered traMADol 50 mg oral tablet 2 tablet = 100 mg, By Mouth, Every 12 hours, as needed for pain masspat checked, # 120 tablet, 0 Refills, Maintenance, 08/19/19 12:27:00 EST, [facility]/pharmacy #2025, 161, cm, 08/12/19 12:43:00 EST, Height Start [...]
--- OUTSIDE RECORDS SUMMARY | 2024-06-24 14:18 | XMS_ITS | Continuity of Care Document ---
Author Organization [facility] Address [address] [place] [address]- Care Team Providers Care Sports Photographer Name Role Phone Noe AHN, Mónica Graham Primary Care Physician [facility] Date(s): 04/11/21 - 05/11/21 [facility] [address] [place] [address]- Allergies, Adverse Reactions, Alerts Substance Reaction Severity [...] Given 1Result Comment: [facility]# [id number] 2Result Comment: [05/25/2018] [facility] lot number [id number] exp 01/26/2019 [facility] [id number] 3Result Comment: [08/20/2017] [facility] [id number] 4Admin Note: VIM dated 01/29/12 GIVEN TODAY 5Result Comment: [facility]#[id number] 6Admin Note: VIM dated 08/22/11 GIVEN TODAY [...] 10/27/20 14:48:00 EDT, Route to Pharmacy Electronically, [id number], [facility]/pharmacy #2024, 160.02, cm, 10/19/20 11:04:00 EDT, Height, 156... Start Date: 10/27/20 Status: Ordered betamethasone-clotrimazole 0.05%-1% topical cream 1 application, Topically, 2 times a day, # 45 Gm, 0 Refills, Maintenance, 12/27/20 14:13:00 EDT, Cream, [facility]/pharmacy #2024, Partial fill [...] Gm, 0 Refills, Maintenance, 02/28/21 16:31:00 EDT, [place], [facility]/pharmacy #2024, Partial fill upon patient request if the prescription is for... Start Date: 02/28/21 Status: Ordered FLUoxetine 10 mg oral capsule 10 mg, 1, capsule, By Mouth, Daily, Take with 20mg capsule for total of 30mg daily, # 90 capsule, Refills 1, Tot. Refills 1, Maintenance, 05/04/21 16:44:00 EDT, Route to Pharmacy Electronically, [facility]/pharmacy #202, Partial fill upon patient request if... Start Date: 05/04/21 Status: Ordered FLUoxetine 20 mg oral capsule 20 mg, 1, capsule, By Mouth, Daily, Take with Fluoxetine 10mg for a total of 30mg, # 90 capsule, Refills 1, Tot. Refills 1, Maintenance, 05/04/21 16:44:00 EDT, Route to Pharmacy Electronically, [facility]/pharmacy #202, replacing 10mg dose, 160.02, cm, 08/0... Start Date: 05/04/21 Status: Ordered levothyroxine 0.137 mg oral tablet See Instructions, Take 1 tablet by mouth on days 1-6, then take 2 tablets by mouth on day 7, # 121 tablet, 5 Refills, Maintenance, 12/07/20 9:46:00 EDT, [facility]/pharmacy #2024, 160.02, cm, 10/19/20 11:04:00 EDT, Height, 156.81, kg, 10/19/20 11:04:00 EDT,... Start Date: 12/07/20 Status: Ordered meclizine 25 mg oral tablet See Instructions, PRN Dizziness, 1 tablet By Mouth 3 times a day, # 30 tablet, 0 Refills, Maintenance, 05/11/21 13:11:00 EDT, [facility]/pharmacy #202, Partial fill upon patient request if the prescriptionis for a schedule II opioid drug., 160.02, cm, 10/0... Start Date: 05/11/21 Status: Ordered meloxicam 15 mg oral tablet 1 tablet, By Mouth, Daily, WITH FOOD., # 30 tablet, 1 Refills, [facility] [id number], 160.02, cm, 02/28/21 15:45:00 EDT, Height, 143, [...] 08/04/19 17:54:00 EST, Route to Pharmacy Electronically, [facility]/pharmacy #2025, 161, cm, 08/04/19 14:44:00 EST, Height Start Date: 08/04/19 Stop Date: 08/18/19 Status: Ordered traMADol 50 mg oral tablet 2 tablet = 100 mg, By Mouth, Every 12 hours, as needed for pain masspat checked, # 120 tablet, 2 Refills, Maintenance, 05/11/21 13:11:00 EDT, [facility]/pharmacy #2025, 160.02, cm, 05/06/21 10:09:00 EDT, Height, 143, kg, 01/04/21 10:42:00 EDT, Dry Weight Start Date: 05/11/21 Stop Date: 08/09/21 Status: Ordered traMADol 50 mg oral tablet 2 tablet = 100 mg, By Mouth, Every 12 hours, as needed for pain masspat checked, # 120 tablet, 2 Refills, Maintenance, 02/10/21 12:37:00 EDT, [facility]/pharmacy #2025, 160.02, cm, 01/04/21 10:42:00 [...]
--- OUTSIDE RECORDS SUMMARY | 2024-06-24 14:18 | XMS_ITS | Continuity of Care Document ---
Author Organization [facility] Address [address] [place] [address]- Care Team Providers Care Lawn And Garden Technician Name Role Phone Celestina Trinidad MD Primary Care Physician Encounter [facility] Date(s): 05/22/23 - 05/22/[address] [address]- Discharge Disposition: A-D/C Home Attending Physician: Yasemin Diaz MD Admitting Physician: Yasemin Diaz MD Referring Physician: Yasemin Diaz MD Allergies, Adverse Reactions, Alerts No Known Allergies Immunizations Given and Recorded Vaccine Date Status Refusal Reason tetanus/diphtheria/pertussis, acel(Tdap) 1 08/21/22 Given tetanus/diphtheria/pertussis, acel(Tdap) 2 08/13/12 Given [id number] 12y+ bivalent booster vax 06/14/22 Recorded influenza [...] inactivated 6 07/31/12 Gi hali SARS-CoV-2 mRNA (ingareo-ndyu-qpaxu) vax 02/14/22 Recorded SARS-CoV-2 (COVID-19) mRNA BNT-162b2 vac 05/06/21 Given SARS-CoV-2 (COVID-19) mRNA BNT-162b2 vac 11/04/20 Recorded SARS-CoV-2 (COVID-19) mRNA BNT-162b2 vac 10/14/20 Recorded pneumococcal 23-valent vaccine 7 04/07/19 Given 1Result Comment: [facility]# [id number] 2Admin Note: VIM dated 08/22/11 GIVEN TODAY 3Result Comment: [facility]# [id number] 4Result Comment: [05/25/2018] [employer] lot number [id number] exp 01/26/2019 [facility] [id number] 5Result Comment: [08/20/2017] [facility] [id number] 6Admin Note: VIM dated 01/29/12 GIVEN TODAY 7Result Comment: [facility]#[id number] Medications acetaminophen 500 mg oral capsule 2 [...] Stop, 04/10/2215:14:00 EDT, Route to Pharmacy Electronically, [id number], [facility]/pharmacy #[id number], 158, cm, [...] to Pharmacy Electronically, [facility]/pharmacy #1, Partial fill upon patient request if the presc... Start Date: 05/17/23 Stop Date: 05/17/24 Status: Ordered diclofenac 1% topical gel See Instructions, APPLY TOPICALLY 4 TIMES A DAY, # 100 Gm, 1 Refills, Maintenance, 01/08/23 9:36:00EDT, [facility] STORE [id number], 50, APPLY TOPICALLY 4 TIMES A DAY, [...] Gm, 0 Refills, Maintenance, 02/28/21 16:31:00 EDT, [place], [facility]/pharmacy #2025, Partial fill upon patient request if the prescription is for... Start Date: 02/28/21 Status: Ordered FLUoxetine 10 mg oral capsule 10 mg, 1, capsule, By Mouth, Daily, to be taken with 20mg capsules to equal 30mg daily, # 90 capsule, Refills 1, Tot. Refills 1, Maintenance, 04/03/23 11:25:00 EDT, Route to Pharmacy Electronically, [facility]/pharmacy #202, Partial fill upon patient reques... Start Date: 04/03/23 Status: Ordered FLUoxetine 20 mg oral capsule 1, capsule, By Mouth, Daily, # 90 capsule, Refills 1, Tot. Refills 1, Maintenance, 04/03/23 11:23:00 EDT, Route to Pharmacy Electronically, [facility]/pharmacy #2024, 157, cm, 03/14/23 11:02:00 EDT, Height,145, kg, 08/29/22 20:13:00 EST, Dry Weight Start Date: 04/03/23 Status: Ordered gabapentin 300 mg oral capsule 600 mg, 2, capsule, By Mouth, 3 times a day, # 180 capsule, Refills 3, Tot. Refills 3, Maintenance,08/25/22 22:35:00 EST, [facility] to Pharm[facility] Electronically, [facility] 2 Refills, Maintenance, 02/27/23 7:25:00 EDT, [facility] STORE [id number], 157, cm, 12/08/22 14:27:00 EDT, Height, 145, kg, 08/29/22 20:13:00 EST, Dry... Start Date: 02/27/23 Status: Ordered meclizine 25 mg oral tablet See Instructions, PRN Dizziness, 1 tablet By Mouth 3 times a day, # 30 tablet, 0 Refills, Maintenance, 02/27/23 10:43:00 EDT, [facility]/pharmacy #202, Partial fill upon patient request if the prescriptionis for a schedule II opioid drug., 157, cm, ... Start Date: 02/27/23 Status: Ordered meloxicam 15 mg oral tablet See Instructions, TAKE 1 TABLET BY MOUTH DAILY WITH FOOD. LABS NEEDED FOR FURTHER REFILLS, # 30 tablet, 1 Refills, Maintenance, 05/01/23 14:45:00 EDT, [facility]/pharmacy #202, 157, cm, 03/14/23 11:02:00 EDT, Height, 145, kg, 08/29/22 20:13:00 EST, Dry Weight Start Date: 05/01/23 Status: Ordered oxyCODONE 5 mg oral tablet 5 mg, 1, tablet, By Mouth, Every 4 hours, PRN, you may filll this prescription for fewer pills. MASSpat reviewed, # 20 tablet, Refills 0, Tot. Refills 0, Maintenance, Pain , Severe, 05/22/23 9:10:00 EDT, Route to Pharmacy Electronically, [facility]/pharmacy... Start Date: 05/22/23 Status: Ordered Oxycodone 5mg Oral Tablet (PACU ONLY) 10 mg, Tablet, By Mouth, Once, in PACU ONLY, PRN for Pain , Severe, Routine, 05/22/23 9:12:00 EDT Start Date: 05/22/23 Stop Date: 05/22/23 Status: Completed Splint See Instructions, # 1 each, Maintenance, [...] 0 Refills, Maintenance, 05/14/23 16:14:00 EDT, [facility]pharmacy #2025, 157, cm, 03/14/2311:02:00 EDT, Height, 145, kg, 08/29/22 20:13:00 E... Start Date: 05/14/23 Status: Ordered zolpidem 10 mg oral tablet 1 tablet = 10 mg, By Mouth, Daily at bedtime, PRN for sleep, for 30 days, # 30 tablet, 0 Refills, Acute 06/10/23 12:40:00 EST, 05/11/23 12:40:00 EDT, Tablet, [facility], early refill for [...] Combivent in place of an oral Ellipta. Procedures Procedure Date Related Diagnosis Body Site Status Laparoscopic umbilical hernia repair 05/22/23 Completed Vital Signs Most recent to oldest [Reference Range]: 1 2 3 Height 157.5 cm (05/22/23 7:39 AM) Weight 145.9 kg (05/22/23 7:39 AM) Oxygen Saturation [94-100 %] 95 % (05/22/23 11:45 AM) 97 % (05/22/23 11:30 AM) 96 % (05/22/23 11:15 AM) Pulse Rate [55-90 bpm] 65 bpm (05/22/23 7:39 AM) Body Mass Index [18.5-24.99 kg/m2] 58.82 kg/m2 *>HHI* (05/22/23 7:39 AM) Blood Pressure [90-138/55-84 mm Hg] 173/90mm Hg *H* (05/22/23 11:30 AM) 156/79mm Hg *H* (05/22/23 11:00 AM) 161/83mm Hg *H* (05/22/23 10:45 AM) Respiratory Rate [16-30 br/min] 18 br/min (05/22/23 11:45 AM) 15 br/min *L* (05/22/23 11:40 AM) 17 br/min (05/22/23 11:30 AM) Temperature [96.8-100.4 DegF] 98.2 DegF (05/22/23 10:15 AM) 97.8 DegF (05/22/23 9:30 AM) 97.4 DegF (05/22/23 7:39 AM) Liters per Minute 5 L/min (05/22/23 11:15 AM) 5 L/min (05/22/23 10:15 AM) 5 L/min (05/22/23 10:12 AM) Mode of Delivery (Oxygen) Room air (05/22/23 11:45 AM) Room air (05/22/23 11:30 AM) Blow by (05/22/23 11:15 AM) Blood pressure sites Arm, right (05/22/23 9:30 AM) Arm, right (05/22/23 7:39 AM) Arm, right (05/22/23 7:15 AM) Temperature Route Temporal (05/22/23 10:15 AM) Temporal (05/22/23 9:30 AM) Temporal (05/22/23 7:39 AM) Dry Weight 145.9 kg (05/22/23 7:39 AM) Weight Obtained Via Standing scale (05/22/23 7:39 AM) Dry Weight Obtained Via Standing scale (05/22/23 7:39 AM) Social History Social History Type Response [...] Code MRI Safety Implantable Status Assigning Authority [id number] Unknown [id number] 4 Unknown 08/26/24 Unknown Unknown Active GS1 Note * Pepe DAWN, Andrew Givens: PERFORM Event Display: Patient Education/Instruction Authored Date: [id number] Surgery [place] [address] Name: JORGE ALBERTO SAHU : 1960?? Visit: 05/22/2023 06:28?? Current Date: 05/22/2023 11:14 ?? Account: [id number]?? Surgery Discharge Instructions We would like to thank [...] and their families. Surveys are administered by [employer] ?? If further treatment with your primary care physician or another doctor is recommended, it is important for you to keep the appointment. Call your primary care physician or return to the Emergency Department immediately if your condition worsens, fails to improve, or new symptoms develop. If you need to find a doctor, you can call [facility] Link for a referral at [phone] or toll free at [phone] or log in to [email or web address].. ?? [facility], in keeping with [facility] guidance, no longer requires face masks for [...] medical provider or home test kit. ?? You can view and manage your care through the patient portal or by using a health care bryan of your choosing. [place] is a website that allows you to securely view your medical information including your hospital discharge summary, office visit summaries, medications and follow-up visits. You can also request appointments, renew medications, and request access to your medical information using a health care bryan of your choosing, or just ask a question. You are entitled to know the individuals who participated in your treatment. This information is available within your medical record and will be provided upon your request. You can enroll at [email or web address] or register d uring your next office visit. You have been discharged from [facility], Patient Care Unit: [facility]??. If you have any questions regarding these instructions after you leave, please call us and we will be happy to assist you. [facility] Your Care Team Attending Physician Yasemin Diaz MD?? Discharging Providers Liliana Allison Reason for Admission UMBILICAL HERNIA Primary Care Provider Celestina Trinidad MD? Advance Directive Health Care Proxy on File Yes - Health Care Proxy What to do next Instructions From Your Doctor Special instructions: ?If you develop fever, chills, increased pain, nausea, vomiting, bleeding, or increased redness or pus around the wound please call [facility] at [phone].?Activity ?-No heavy lifting >10 lbs. ?-Increase activity as tolerated ?-Encourage cough and deep breathing, use incentive spirometry ?-No tub baths until incisions have healed ?-No driving until off narcotics ?-If prescribed narcotics you may fill your narcotic prescription for less tablets/pills than prescribed ?-Take pain medication as needed ?Pain control: - Acetaminophen 650 mg every 4-6 hours; not to exceed 4000 mg /24 hours - resume Meloxicam as prescribed. - Take narcotics as prescribed -??Avoid taking Tramadol with Oxycodone ?-Your incision is closed with subcuticular sutures and covered with steri strips and band aids. You may remove band aids in 48 hours but leave steri strips in place until they fall off or your follow up appointment. Umbilical site with pressure dressing??gauze and Tegaderm; remove in 48 hours; leave steri strip in??place until follow up ?-You may shower after you remove band aids and dressing??48 hours after your surgery?-Resume your normal diet ?? Orders? 05/22/23 9:10:00 EDT?? Scheduled Follow-Up Appointments Sunday 1:40 PM EDT ?? With: Gera HENNING, Hector Graham Where: [facility] [address] [place] [address]- Status: Pending Sunday 10:20 AM EST ?? With: Yasemin Diaz MD Where: [facility] [address] [place] [address]- Status: Pending Sunday 1:20 PM EST ?? With: Celestina Trinidad MD Where: [facility] [place] [address] [place] [address]- Status: Pending You Need to Schedule the Following Appointments Follow Up with??Yasmein Diaz MD When:??2023 10:20 AM EST Where: [address] [place] [address], [place] [address]- Discharge Medications JORGE ALBERTO SAHU :1960 Visit Date:05/22/2023 Medications: Please continue your medications until treatment is completed or stopped by your provider. You may resume your daily prescription medications. Discuss any questions related to medications with your provider. What How Much When Why Instructions Next Dose New Oxycodone (oxyCODONE 5 mg oral tablet) 1 tab(s) Oral Every 4 hours as needed for Pain , Severe you may filll this prescription for fewer pills. MASSpat ??reviewed ?? Pickup at [facility]/pharmacy #2024 Unchanged Acetaminophen (acetaminophen 500 mg oral capsule) 2 capsule Oral Twice a day Unchanged Albuterol (albuterol CFC free 90 mcg/ inh inhalation aerosol) 2 puff(s) Inhalation Every 4 hours as needed for Wheezing/Shortness of Breath Mild persistent asthma Unchanged Budesonide-Formoterol (Symbicort 80mcg/ 4.5mcg Inhaler) 10 Gm, 0 Refill(s), TAKE 2 PUFFS TWICE A DAY FOR WHEEZING SHORTNESS OF BREATH USE WITH SPACER [place]/ THROAT AFTER. ?? Unchanged Cilostazol (cilostazol 100 mg oral tablet) 60 each, 0 Refill(s), TAKE 1 TABLET BY MOUTH TWICE A DAY ?? Unchanged Cyclobenzaprine (cyclobenzaprine 10 mg oral tablet) 1 tab(s) Oral 3 times a day as needed for for spasm Unchanged Diclofenac (diclofenac sodium 75 mg oral delayed release tablet) 60 each, 0 Refill(s), TAKE 1 TABLET BY MOUTH TWICE A DAY DIRECTED WITH FOOD ?? Unchanged Diclofenac Topical (diclofenac 1% topical [...] pressure daily ?? Unchanged Durable Medical Equipment (Splint) See instructions Left wrist pain left wrist short cock-up splint ?? Unchanged Fluoxetine (FLUoxetine 10 mg oral capsule) 1 capsule Oral Daily to be taken with 20mg capsules to equal 30mg daily ?? Unchanged Fluoxetine (FLUoxetine 20 mg oral capsule) 1 capsule Oral Daily Unchanged Fluticasone Nasal (Flonase 50 mcg/ inh nasal spray) See instructions Serous otitis media 2 sprays Nares twice daily x 1 week, then once daily x 1-2 weeks until symptoms improve ?? Unchanged Gabapentin (gabapentin 300 mg oral capsule) 2 capsule Oral 3 times a day Unchanged Levothyroxine (levothyroxine 0.137 mg oral tablet) See instructions TAKE 1 TABLET BY MOUTH 6 DAYS A WEEK AND 2 TABLETS BY MOUTH DAILY 1 DAY PER WEEK ?? Unchanged Meclizine (meclizine 25 mg oral [...] prn moderate to severe pain. 28 days. ??mass pat ok ?? Unchanged umeclidinium-vilanterol (Anoro Ellipta 62.5 mcg-25 mcg/ inh inhalation powder) 60 each, 0 Refill(s), INHALE 1 PUFF BY MOUTH DAILY ?? Unchanged Zolpidem (zolpidem 10 mg oral tablet) 1 tab(s) Oral Daily at Bedtime as needed for for sleep Duration: 30 Days Pharmacy Information [facility]/pharmacy #2024: [address], [place] [id number] [phone] Allergies (NKA means No Known Allergies) NKA Education Materials Below is the list of Educational Leaflet Providered with your Discharge Instructions. Oxycodone/Acetaminophen Oral Tablet?? After Laparoscopic Hernia Repair?? Valuables and Belongings I fully understand and agree that [facility] accepts no responsibility for all [...] and belongings home. ? Other Discharge Information ? Pulmonary Rehab Status?? Pulmonary Rehab Discharge Status?? Respiratory Rate:??14 br/min??Low ? Common Emergency Awareness Tips IS IT [...] are strongly encouraged to quit. Please call [facility] [employer] Link at [phone] or [phone]) or log in to [email or web address] for referrals to smoking cessation programs. ?? The National Suicide Prevention Hotline is available 19/02 if you or someone you know needs to find a reason to keep living. By calling 0-153-774-[employer] (0895) you'll be connected to a skilled, trained counselor at a crisis center in your area. SURGERY DISCHARGE INSTRUCTIONS SIGNATURE PAGE JORGE ALBERTO SAHU Location:[facility] Registration Date and Time:05/22/2023 06:28 EDT Primary Care Physician: Celestina Trinidad MD, Attending Physician: Yasemin Diaz MD, JORGE ALBERTO DEGOROT, have received the above patient education materials/instructions and have verbalizedunderstanding. If ambulance or transport services are being used I further acknowledge being given a choice of service. ?? If you need to contact me, please call me at this number: . Patient/Size Stamper Name: Patient/Size Stamper Signature: Relationship to Patient: Witness Name/Signature: Date: * Andrew Cantu RN: PERFORM Event Display: Patient Education Leaflets Authored Date: [id number] Oxycodone/Acetaminophen Oral Tablet ?? [address] Oxycodone/Acetaminophen Oral Tablet Brands: Endocet, Nalocet, Percocet, Primlev, Prolate Uses For pain. ?? Instructions This medicine may be taken with or without food. Store at room temperature away from heat, light, and moisture. Do not keep in the bathroom. Please ask your doctor, nurse, or pharmacist how to discard unused medicines safely. To reduce constipation, eat high fiber foods, drink plenty of water and exercise. Drug interactions can change how medicines work or increase risk for side effects. Tell your healthcare providers about all medicines taken. Include prescription and katu-mex-ccnceqn medicines, vitamins, and herbal medicines. Speak with your doctor or pharmacist before starting or stopping any medicine. Tell your doctor if symptoms do not get better or if they get worse. ?? Cautions This medicine has an opioid. Opioids help many people but may cause addiction, especially if used for a long time. The addiction risk is higher if you have a substance use disorder (overuse of or addiction to drugs or alcohol). Ask your doctor about the benefits and risks. Ask your doctor or pharmacist if you should have naloxone on hand to treat opioid overdose. Teach your family or household members about the signs of an opioid overdose and how to treat it. If you stop this medicine suddenly after using it for a long time, you may have withdrawal. Your doctor may slowly lower your dose before stopping it. Tell your doctor right away if you have symptoms, such as unusual sweating, watering eyes, runny nose, chills, diarrhea, yawning, muscle aches, restlessness, anxiety, trouble sleeping, or thoughts of suicide. Tell your doctor and pharmacist if you ever had an allergic reaction to a medicine. Do not use the medication any more than instructed. If possible, avoid using with alcohol, marijuana, or other medicines that can cause dizziness or drowsiness. These include allergy/cold products, muscle relaxers, sleep aids, and pain relievers. Your ability to stay alert or to react quickly may be impaired by this medicine. Do not drive or operate machinery until you know how this medicine will affect you. This medicine passes into breast milk. Ask your doctor before . This medicine can hurt a new baby in the womb. If you become while on this medicine, tell your doctor immediately. Your doctor may switch you to a different medicine. This medicine should be used with caution in patients with breathing difficulties. Call your doctor right away if you notice slow or shallow breathing. Do not share this medicine with anyone who has not been prescribed this medicine. This medicine contains acetaminophen. There are many medicines with acetaminophen. Taking these medicines together can cause you to get too much acetaminophen. This can cause serious liver problems. Look carefully on the package of all your medicines to see if acetaminophen is included. Ask your pha rmacist which medicines you can take safely. Some patients have serious side effects from this medicine. Ask your pharmacist to show you the information from the Food and Drug Administration (FDA) and discuss it with you. ?? Side Effects The following is a list of some common side effects from this medicine. Please speak with your doctor about what you should do if you experience these or other side effects. ??? decreased appetite ??? constipation ??? dizziness or drowsiness ??? lightheadedness ??? nausea and vomiting If you have any of the following side effects, you may be getting too much medicine. Please contactyour doctor to let them know about these side effects. ??? changes in memory, mood, or thinking ??? confusion ??? fainting ??? slow heartbeat Call your doctor or get medical help right away if you notice any of these more serious side effects: ??? decreased awareness or responsiveness ??? breathing interruption during sleep ??? shallow, irregular breathing ??? hallucinations (unusual thoughts, seeing or hearing things that are not real) ??? signs of liver damage (such as yellowing of eye or skin, dark urine, or unusual tiredness) ??? seizures ??? shortness of breath ??? severe stomach or bowel pain ??? difficulty or discomfort urinating ??? severe or persistent vomiting ??? weight loss A few people may have an allergic reaction to this medicine. Symptoms can include difficulty breathing, skin rash, itching, swelling, or severe dizziness. If you notice any of these symptoms, seek medical help quickly. ?? Extra Please speak with your doctor, nurse, or pharmacist if you have any questions about this medicine. ?? [email or web address] IMPORTANT NOTE: This document tells you briefly how to take your medicine, but it does not tell youall there is to know about it. Your doctor or pharmacist may give you other documents about your medicine. Please talk to them if you have any questions. Always follow their advice. There is a more complete description of this medicine available in [place]ian. Scan this code on your smartphone or tablet or use the web address below. You can also ask your pharmacist for a printout. If you have any questions, please ask your pharmacist. The display and use of this drug information is subject to Terms of Use. Copyright(c) 2022 [employer]. ?? [employer]. All rights reserved. This information is not intended as a substitute for professional medical care. Always follow your healthcare professional's instructions. ?? * Pepe DAWN, Andrew Givens: PERFORM Event Display: Patient Education Leaflets Authored Date: After Laparoscopic Hernia Repair ?? [id number] After Laparoscopic Hernia Repair You had a procedure called laparoscopic hernia repair. A hernia is a defect in the tough tissue covering the musculature of the abdominal wall (fascia). During laparoscopic hernia surgery, a surgeon inserts a telescope attached to a camera as well as surgical instruments through several tiny incisions in your abdomen. The surgeon repairs the??hernia??with mesh, which patches the tear or weakness i n the fascia. Home care ??? You may have sharp pain that radiates to your shoulder. This is referred pain from the gases they used to inflate your belly. It's??common and usually lasts a short time. You may also have numbness around the incision area. ??? Keep doing the coughing and deep breathing exercises thatyou learned in the hospital. These will help to prevent lung infection. ??? Prevent constipation so you don???t strain when going to the bathroom. Eat fruits, vegetables, and whole grains. Drink 6 to8??glasses of water a day, unless otherwise directed. Use a laxative or a mild stool softener if your??healthcare provider??says it???s OK. ??? Wash your incision with mild soap and water. Pat it dry. Don???t??use oil, powder, or lotion on your incision. ??? Shower or take baths as instructed by your??healthcare provider. Instructions will vary based on how your incision was closed and how it???shealing. It may be closed with glue, stitches, or nahid. Your healthcare provider may have different advice for each kind. ?? Activity ??? Ask others to help with chores and errands while you recover. ??? Don???t lift anything heavier than??10 pounds until your??healthcare provider??says it???s OK. ??? Don???t mow the lawn,use a vacuum marble cleaner, or do other strenuous activities until your??healthcare provider??says it's OK. ??? Climb stairs slowly and pause after every few steps. ??? Walk as often as you feel able. ??? Ask your??healthcare provider??when you can drive again. This may be when you stop taking pain medicine and can move comfortably from side to side. Don???t drive if you are still taking opioid pain medicine. ?? When to call your??healthcare provider?? Call your??healthcare provider??right away if you have any of the following: ??? Pain, bleeding, redness, or fluid at the incision site that gets worse ??? Fever of??100.4??F (38??C) or higher or as directed by your healthcare provider ??? Chills ??? Vomiting or nausea that doesn???t go away ??? Inability to urinate ??? No bowel movement after three days ??? Swelling in abdomen or groin that getsworse ??? Pain that???s not relieved by medicine ?? Last Reviewed Date: 2021 ?? [id number] [employer]. All rights reserved. This information is not intended as a substitute for professional medical care. Always follow your healthcare professional's instructions. ?? Patient Care team information Care Team Personnel Name: Celestina Trinidad MD Position: [facility] Physician - Primary Care Member Role: PCP Address: Address: [address] [place] [id number] Name: Hemalatha Lucas RN Position: [facility] RN Member Role: Primary Care Nurse Name: Lauren Mack RN Position: [facility] MARY Nurse Member Role: Primary Care Nurse [...] Bonilla RN Position: [facility] Avionics Test Technician Member Role: Primary Care Nurse Care Team Related Persons Name: DINESH SARGENT Address: home [address] [place] [address] Name: BON DE Address: home [address] [address]
--- OUTSIDE RECORDS SUMMARY | 2024-06-24 14:18 | XMS_ITS | Continuity of Care Document ---
Author Organization [facility] Address [address] [place] [address]- Care Team Providers Care Needle Control Cheniller Name Role Phone Vivi HENNING, Celestina Givens Primary Care Physician [place] [facility] [place] 03/04/24 - 04/03/24 [facility] [address] [place] [address]- Allergies, Adverse Reactions, Alerts No Known Allergies [...] 08/21/22 Given tetanus/diphtheria/pertussis, acel(Tdap) 7 08/13/12 Given [id number] 12y+ bivalent booster vax 06/14/22 Recorded SARS-CoV-2 mRNA (yivhucy-claf-ehdwp) vax 02/14/22 Recorded SARS-CoV-2 (COVID-19) mRNA BNT-162b2 vac 05/06/21 Given SARS-CoV-2 (COVID-19) mRNA BNT-162b2 vac 11/04/20 Recorded SARS-CoV-2 (COVID-19) mRNA BNT-162b2 vac 10/14/20 Recorded pneumococcal 23-valent vaccine 8 04/07/19 Given 1Result Comment: screening negative 2Result Comment: [facility]# [id number] 3Result Comment: [05/25/2018] [facility] lot number [id number] exp 01/26/2019 [facility] [id number] 4Result Comment: [08/20/2017] [facility] [id number] 5Admin Note: VIM dated 01/29/12 GIVEN TODAY 6Result Comment: [facility]# [id number] 7Admin Note: VIM dated 08/22/11 GIVEN TODAY 8Result Comment: [facility]#[id number] Medications acetaminophen 500 mg oral capsule 2 [...] 1 Refills, Soft Stop, 12/06/23 17:28:00 EDT, [facility]/pharmacy #5, Partial fill upon patient request [...] Gm, 0 Refills, Maintenance, 02/28/21 16:31:00 EDT, [place], [facility]/pharmacy #2024, Partial fill upon patient request if the prescription is for... Start Date: 02/28/21 Status: Ordered FLUoxetine 10 mg oral capsule 1, capsule, By Mouth, Daily, INSTR:TO BE TAKEN WITH 20MG CAPSULES TO EQUAL 30MG DAILY, # 90 capsule, Refills 1, Maintenance, 01/25/24 9:11:00 EDT, Route to Pharmacy Electronically, [facility], 157.5, cm, 01/22/24 10:31:00 EDT, Height, 145.9, [...] Refills, Maintenance, 12/28/23 16:17:00 EDT, [facility], 157.5, cm, 10/18/23 15:15:00 EDT, Height, 145.9, [...] tablet, 1 Refills, Maintenance, 03/28/24 7:37:00 EDT, [facility]/pharmacy #2025, 157.5, cm, 02/12/24 14:48:00 EDT, Height, 145.9, kg, :39:00 EDT, Dry Weight Start Date: 03/28/24 Status: Ordered metFORMIN 500 mg oral tablet, extended release 1 tablet = 500 mg, By Mouth, Daily, # 90 tablet, 1 Refills, Maintenance, 01/22/24 11:02:00 EDT, ER Tablet, [facility]/pharmacy #2025, Partial fill upon [...] tablet, 0 Refills, Maintenance, 03/31/24 17:50:00 EDT, [facility]/pharmacy #5, Partial fill upon patient request [...] Code MRI Safety Implantable Status Assigning Authority [id number] Unknown [id number] Unknown 08/26/24 Unknown Unknown Active GS1 Patient Care team information Care Team Personnel Name: Celestina Trinidad MD Position: [facility] Physician - Primary Care Member Role: PCP Address: Address: [address] [place] [id number] Name: Hemalatha Lucas RN Position: [facility] RN Member Role: Primary Care Nurse Name: Lauren Mack RN Position: [facility] RN Member Role: Primary Care Nurse Name: Madelaine Ruiz RN Position: [facility] RN Member Role: Primary Care Nurse Name: Lora Santiago RN Position: [facility] SN RN Member Role: Primary Care Nurse Name: Mayco Ro RN Position: [facility] RN Member Role: Primary Care Nurse Name: Heydi oPtts RN Position: [facility] SN RN Member Role: Primary Care Nurse Name: Janice Romano LPN Position: [facility] RN Member Role: Primary Care Nurse Name: Nadya Low RN Position: [facility] RN Member Role: Primary Care Nurse Name: Mirna Greenfield RN Position: [facility] RN Member Role: Primary Care Nurse Name: Nessa Bonilla RN Position: [facility] Kiss Mixer Member Role: Primary Care Nurse Care Team Related Persons Name: DINESH SARGENT Address: home [address] [place] [address] Name: BON DE Address: [address] [address]
--- OUTSIDE RECORDS SUMMARY | 2024-06-24 14:18 | XMS_ITS | Continuity of Care Document ---
Author Organization [facility] Address [address] [place] [address]- Care Team Providers Care Program Manager Environmental Planning Name Role Phone Celestina Trinidad MD Primary Care Physician Encounter [facility] Date(s): 07/13/22 - 07/20/22 [facility] [address] [place] [address]- Encounter Diagnosis Ischemic finger(Discharge Diagnosis) - 07/13/22 Thromboangiitis obliterans(Discharge Diagnosis) - 07/13/22 Attending Physician: Celestina Trinidad MD Allergies, Adverse Reactions, Alerts No Known Allergies Immunizations Given and Recorded Vaccine Date Status Refusal Reason [id number] 12y+ bivalent booster vax 06/14/22 Recorded influenza [...] inactivated 4 07/31/12 Gi hali SARS-CoV-2 mRNA (egucbup-tezx-itdaf) vax 02/14/22 Recorded SARS-CoV-2 (COVID-19) mRNA BNT-162b2 vac 05/06/21 Given SARS-CoV-2 (COVID-19) mRNA BNT-162b2 vac 11/04/20 Recorded SARS-CoV-2 (COVID-19) mRNA BNT-162b2 vac 10/14/20 Recorded pneumococcal 23-valent vaccine 5 04/07/19 Given tetanus/diphtheria/pertussis, acel(Tdap) 6 08/13/12 Given 1Result Comment: [facility]# [id number] 2Result Comment: [05/25/2018] [facility] lot number [id number] exp 01/26/2019 [facility] [id number] 3Result Comment: [08/20/2017] [facility] [id number] 4Admin Note: VIM dated 01/29/12 GIVEN TODAY 5Result Comment: [facility]#[id number] 6Admin Note: VIM dated 08/22/11 GIVEN TODAY [...] Stop, 04/10/2215:14:00 EDT, Route to Pharmacy Electronically, [id number], [facility]/pharmacy #202, 158, cm, 04/10/22 14:56:00 EDT, Height, 143,... Start Date: 04/10/22 Status: Ordered amLODIPine 10 mg oral tablet 10 mg, 1, tablet, By Mouth, Daily, new dosage, # 30 tablet, Refills 2, Tot. Refills 2, Maintenance,07/11/22 16:33:00 EST, [facility] to [facility]ically, [facility], Partial fill upon patient request if the prescription is for a schedule II... Start Date: 07/11/22 Status: Ordered Anoro Ellipta 62.5 mcg-25 mcg/inh inhalation powder 1 puffs, By Mouth, Daily, # 1 each, 6 Refills, Maintenance, 05/11/22 13:00:00 EDT, Powder, [facility], Partial fill upon patient request if [...] Gm, 1 Refills, 09/19/21 12:51:00 EST, [facility]/pharmacy #202, 25, APPLY TOPICALLY 4 TIMES A DAY, 160.02, cm, 07/25/21 16:20:00 EST, Height, 143, kg,01/04/21 10:42:00 EDT, Dry Weight Start Date: 09/19/21 Status: Ordered doxycycline hyclate 100 mg oral tablet 1 tablet = 100 mg, By Mouth, 2 times a day, # 20 tablet, 0 Refills, Maintenance, 07/13/22 21:24:00 EST, Tablet, [facility]/pharmacy #202, Partial fill upon patient request if the prescription is for a schedule II opioid drug., 158, cm, 07/13/22 13:46:00 EST... Start Date: 07/13/22 Stop Date: 07/23/22 Status: Ordered Flonase 50 mcg/inh nasal spray See Instructions, 2 sprays Nares twice daily x 1 week, then once daily x 1-2 weeks until symptoms improve, # 16 Gm, 0 Refills, Maintenance, 02/28/21 16:31:00 EDT, [place], [facility]/pharmacy #2024, Partial fill upon patient request if the prescription is for... Start Date: 02/28/21 Status: Ordered FLUoxetine 20 mg oral capsule See Instructions, TAKE 1 CAPSULE BY MOUTH EVERY DAY, # 90 capsule, Refills 1, Maintenance, 06/13/2215:26:00 EST, Instructions Replace Required Details, Route to Pharmacy Electronically, [id number], 158, cm, 06/09/22 11:21:00 EST, Height, 143, kg... Start Date: 06/13/22 Status: Ordered gabapentin 300 mg oral capsule 300 mg, 1, capsule, By Mouth, 3 times a day, # 90 capsule, Refills 1, Tot. Refills 1, Maintenance, 07/03/22 14:24:00 EST, Route to Pharmacy Electronically, [facility] [...] 96 tablet, 0 Refills, 06/29/22 15:47:00 EST, [facility]/pharmacy #2024, 158, cm,06/09/22 11:21:00 EST, Height, 143, [...] Weight Start Date: 07/17/22 Status: Ordered oxyCODONE 5 mg oral tablet [...] [facility], 158, cm, 07/07/22 11:19:00 EST, Height,143, kg, [...] Clinical Service Informant Ischemic finger Discharge Diagnosis 07/13/22 Thromboangiitis obliterans Discharge Diagnosis 07/13/22 Vital Signs Most recent to oldest [Reference Range]: 1 Height 158 cm (07/13/22 1:46 PM) Oxygen Saturation [94-100 %] 99 % (07/13/22 1:46 PM) Pulse Rate [55-90 bpm] 92 bpm *H* (07/13/22 1:46 PM) Blood Pressure [90-138/55-84 mm Hg] 118/ 72mm Hg (07/13/22 1:46 PM) Blood pressure sites Arm, left (07/13/22 1:46 PM) Social History Social History Type Response Smoking Status Former smoker, quit more than 30 days ago; Other: smoked up to pack a day x 25 years; entered on: 11/14/21 Sex Note * Yesenia Reid: PERFORM, SIGN, VERIFY Event Display: Patient Education/Instruction Authored Date: [id number] [facility] Clinical Summary Name JORGE ALBERTO SAHU Age 62 Years 1960 PCP Celestina Trinidad MD PCP Visit Date 07/13/2022 13:43:00 Additional Instructions: Scheduled Appointments?? Future Appointments ?*[facility] ?[address]??[place],??[place],??[address] ?Phone:??--?Fax:??-- ?Appt. Date:??07/14/2022?11:40 AM ?Scheduled Provider:??Gera HENNING, Hector Graham ?*[facility] ?Phone:??--?Fax:??-- ?Appt. Date:??07/18/2022?11:40 AM ?Scheduled Provider:??Nydia HENNING , Jay Pepe Follow-Up Instructions ?? Diagnosis Medications: Please continue [...] Next Dose: Amlodipine Oral Daily. Next Dose: Amlodipine (amLODIPine 10 mg oral tablet) 1 tab(s) Oral Daily. new dosage. Refills: 2. Next Dose: Cilostazol (cilostazol 100 mg oral [...] Dose: Gabapentin (gabapentin 300 mg oral capsule) 1 capsule Oral 3 times a day. Refills: 1. Next Dose: Levothyroxine [...] Height 158 cm Weight BMI Blood Pressure 118 mm Hg/72 mm Hg Temperature Pulse Rate 92 bpm Respiratory Rate 02 Sat Mode of Delivery 99 %/ You can now view a summary of your hospital visit from the comfort of your home through a free online portal called [employer]. [employer] is a website that allows you to securely view your medical information including discharge summary, medications and follow-up visits. ??You can alsosend a secure electronic message to your doctor???s office to request appointments, renew medications or just ask a question. You can enroll at [email or web address] or register during your next office [...] primary care provider, you may find a [facility] provider by calling [facility] Click Contact [facility] at [phone]. For information about the plan of care [...] Care Physician Member Role: PCP Address: Address: [address] [place] [address] Name: Lauren Mack RN Position: [facility] Nurse Member Role: Primary Care Nurse Name: Lora Santiago RN Position: [facility] RN Member Role: Primary Care [...] Care Nurse Name: Nessa Bonilla RN Position: [facility] Typesetter Apprentice Member Role: Primary Care Nurse Care Team Related Persons Name: ROSETTADINESH Address: home [address] [place] [address] Name: BON DE Address: home [address] [address]
--- OUTSIDE RECORDS SUMMARY | 2024-06-24 14:18 | XMS_ITS | Continuity of Care Document ---
Author Organization [facility] Address [address] [place] [address]- Care Team Providers Care Plant Guide Name Role Phone Madeline Lux NP Primary Care Physician [phone] Encounter [facility] Date(s): 02/13/22 - 03/15/22 [facility] [address] [place] [address]- Allergies, Adverse Reactions, Alerts No Known Allergies [...] Given 1Result Comment: [facility]# [id number] 2Result Comment: [05/25/2018] [facility] lot number [id number] exp 01/26/[address] [facility] [id number] 3Result Comment: [08/20/2017] [facility] [id number] 4Admin Note: VIM dated 01/29/12 GIVEN TODAY 5Result Comment: [facility]#[id number] 6Admin Note: VIM dated 08/22/11 GIVEN TODAY [...] Stop, 03/02/2212:01:00 EDT, Route to Pharmacy Electronically, [id number], [facility], 158, cm, 03/02/22 11:38:00 EDT, Height, 143,... Start Date: 03/02/22 Status: Ordered diclofenac 1% topical gel See [...] Gm, 0 Refills, Maintenance, 02/28/21 16:31:00 EDT, [place], [facility], Partial fill upon patient request if the prescription is for... Start Date: 02/28/21 Status: Ordered FLUoxetine 10 mg oral capsule 10 mg, 1, capsule, By Mouth, Daily, Take with 20mg capsule for total of 30mg daily, # 90 capsule, Refills 1, Tot. Refills 1, Maintenance, 03/11/22 11:03:00 EDT, Route to Pharmacy Electronically, [facility]/pharmacy #2025, Partial fill upon patient request if... Start Date: 03/11/22 Status: Ordered FLUoxetine 20 mg oral capsule 20 mg, 1, capsule, By Mouth, Daily, Take with Fluoxetine 10mg for a total of 30mg, # 90 capsule, Refills 1, Tot. Refills 1, Maintenance, 12/30/21 12:34:00 EDT, Route to Pharmacy Electronically, [facility]/pharmacy #2025, replacing 10mg dose, 160.02, cm, 1... Start Date: 12/30/21 Status: Ordered fluticasone-vilanterol 100 mcg-25 mcg/inh inhalation powder 1 puffs, Inhalation, Every 24 hours, rinse mouth and throat after use, j45.40, # 1 each, 11 Refills, Maintenance, 03/10/22 12:51:00 EDT, [place], [facility]/pharmacy #2025, Partial fill upon patient request if the prescription is for a schedule II opioid drug... Start Date: 03/10/22 Status: Ordered levothyroxine 0.137 mg oral tablet See Instructions, TAKE 1 TABLET BY MOUTH ON DAYS 1-6, THEN TAKE 2 TABLETS BY MOUTH ON DAY 7, # 96 tablet, 1 Refills, [facility], 160.02, cm, 10/04/21 10:38:00 EST, Height, 143, [...] WITH FOOD., # 30 tablet, 1 Refills, 02/08/22 14:04:00 EDT, [facility], 160.02, cm, 01/12/22 11:09:00 EDT, Height, 143, kg, 01/04/21 10:42:00 EDT, Dry Weight Start Date: 02/08/22 Status: Ordered Splint See Instructions, # 1 each, Maintenance, left wrist short cock-up splint, 01/08/20 14:28:00 EDT, Supply Start Date: 01/08/20 Status: Ordered traMADol 50 mg oral tablet See Instructions, 2 tab po qam and one tab po q pm prn moderate to severe pain, # 81 tablet, 0 Refills, Maintenance, 03/12/22 18:29:00 EDT, [facility], 158, cm, 03/02/22 11:38:00 EDT, Height,143, kg, 01/04/21 10:42:00 EDT, Dry Weight Start Date: 03/12/22 Status: Ordered Problem List Condition Effective Dates [...]
--- OUTSIDE RECORDS SUMMARY | 2024-06-24 14:18 | XMS_ITS | Continuity of Care Document ---
Author Organization [facility] Address [address] [place] [address]- Care Team Providers Care Polystyrene Molding Machine Tender Name Role Phone Noe AHN, Mónica Graham Primary Care Physician Encounter [facility] Date(s): 05/06/21 - 06/05/21 [facility] [address] [place] [address]- Attending Physician: Admtr, [id number] Admitting Physician: Admtr, Ar8 Referring Physician: Admtr, Ar8 Allergies, Adverse Reactions, Alerts Substance Reaction Severity [...] Given 1Result Comment: [facility]# [id number] 2Result Comment: [05/25/2018] [facility] lot number [id number] exp 01/26/2019 [facility] [id number] 3Result Comment: [08/20/2017] [facility] [id number] 4Admin Note: VIM dated 01/29/12 GIVEN TODAY 5Result Comment: [facility]#[id number] 6Admin Note: VIM dated 08/22/11 GIVEN TODAY [...] 10/27/20 14:48:00 EDT, Route to Pharmacy Electronically, [id number], [facility]/pharmacy #2024, 160.02, cm, 10/19/20 11:04:00 EDT, [...] Gm, 0 Refills, Maintenance, 02/28/21 16:31:00 EDT, [place], [facility]/pharmacy #2024, Partial [...] Electronically, [facility]/pharmacy #2024, replacing 10mg dose, 160.02, cm, 08/0... Start Date: 05/04/21 Status: Ordered levothyroxine 0.137 mg oral tablet See Instructions, Take 1 tablet by mouth on days 1-6, then take 2 tablets by mouth on day 7, # 121 tablet, 5 Refills, Maintenance, 12/07/20 9:46:00 EDT, [facility]/pharmacy #2024, 160.02, cm, 10/19/20 11:04:00 EDT, Height, 156.81, kg, 10/19/20 11:04:00 EDT,... Start Date: 12/07/20 Status: Ordered meclizine 25 mg oral tablet See Instructions, PRN Dizziness, 1 tablet By Mouth 3 times a day, # 30 tablet, 0 Refills, Maintenance, 05/11/21 13:11:00 EDT, [facility]/pharmacy #2024, Partial fill upon patient request if the prescriptionis for a schedule II opioid drug., 160.02, cm, 10/0... Start Date: 05/11/21 Status: Ordered meloxicam 15 mg oral tablet 1 tablet, By Mouth, Daily, WITH FOOD., # 30 tablet, 1 Refills, [facility], 160.02, cm, 02/28/21 15:45:00 EDT, Height, 143, [...] 08/04/19 17:54:00 EST, [facility], 161, cm, 08/04/19 14:44:00 EST, Height Start Date: 08/04/19 Stop Date: 08/18/19 Status: Ordered traMADol 50 mg oral tablet 2 tablet = 100 mg, By Mouth, Every 12 hours, as needed for pain masspat checked, # 120 tablet, 2 Refills, Maintenance, 05/11/21 13:11:00 EDT, [facility]/pharmacy #2025, 160.02, cm, 05/06/21 10:09:00 EDT, Height, 143, kg, 01/04/21 10:42:00 EDT, Dry Weight Start Date: 05/11/21 Stop Date: 08/09/21 Status: Ordered traMADol 50 mg oral tablet 2 tablet = 100 mg, By Mouth, Every 12 hours, as needed for pain masspat checked, # 120 tablet, 2 Refills, Maintenance, 02/10/21 12:37:00 EDT, [facility]/pharmacy #2025, 160.02, cm, 01/04/21 10:42:00 EDT, Height, 143, kg, 01/04/21 10:42:00 EDT, Dry Weight Start Date: 02/10/21 Stop Date: 05/11/21 Status: Ordered zolpidem 10 mg oral tablet 1 tablet = 10 mg, By Mouth, Daily at bedtime, PRN for sleep, for 30 days, masspat check may fill less, # 30 tablet, 3 Refills, Acute 09/08/21 13:11:00 EST, 05/11/21 13:11:00 EDT, Tablet, [facility]/pharmacy#2025, 160.02, cm, 05/06/21 10:09:00 EDT, Height,... [...]
--- OUTSIDE RECORDS SUMMARY | 2024-06-24 14:19 | XMS_ITS | Continuity of Care Document ---
Author Organization [facility] Address [address] [facility] [place] [address]- Care Team Providers Care Custom Clothier Name Role Phone Celsetina Trinidad MD Primary Care Physician Encounter 10/25/23 - 11/01/23 [facility] [address], [address] [place] [address]- Attending Physician: Celestina Trinidad MD Admitting Physician: [...] 08/21/22 Given tetanus/diphtheria/pertussis, acel(Tdap) 7 08/13/12 Given [id number] 12y+ bivalent booster vax 06/14/22 Recorded SARS-CoV-2 mRNA (plnabkt-nnyq-snnge) vax 02/14/22 Recorded SARS-CoV-2 (COVID-19) mRNA BNT-162b2 vac 05/06/21 Given SARS-CoV-2 (COVID-19) mRNA BNT-162b2 vac 11/04/20 Recorded SARS-CoV-2 (COVID-19) mRNA BNT-162b2 vac 10/14/20 Recorded pneumococcal 23-valent vaccine 8 04/07/19 Given 1Result Comment: screening negative 2Result Comment: [facility]# [id number] 3Result Comment: [05/25/2018] seqirus lot number [id number] exp 01/26/2019 [facility] [id number] 4Result Comment: [08/20/2017] [facility] [id number] 5Admin Note: VIM dated 01/29/12 GIVEN TODAY 6Result Comment: [facility]# [id number] 7Admin Note: VIM dated 08/22/11 GIVEN TODAY 8Result Comment: [facility]#[id number] Medications acetaminophen 500 mg oral capsule 2 [...] 05/17/23 16:45:00 EDT, Route to Pharmacy Electronically, [facility]/pharmacy #2024, Partial fill upon patient request if the presc... Start Date: 05/17/23 Stop Date: 05/17/24 Status: Ordered diclofenac 1% topical gel See Instructions, APPLY TO AFFECTED AREA 4 TIMES A DAY, # 100 Gm, 1 Refills, Maintenance, 09/02/23 8:08:00 EST, [id number], 25, APPLY TO AFFECTED AREA 4 TIMES [...] Gm, 0 Refills, Maintenance, 02/28/21 16:31:00 EDT, [place], [facility]/pharmacy #2024, Partial fill upon patient [...] SOUTH[facility]/pharmacy #2024, Partial fill upon patient reques... Start Date: 07/31/23 Status: Ordered FLUoxetine 20 mg oral capsule 1, capsule, By Mouth, Daily, # 90 capsule, Refills 1, Tot. Refills 1, Maintenance, 07/31/23 19:01:00 EST, Route to Pharmacy Electronically, [facility]/pharmacy #2024, 157.5, cm, 07/13/23 9:57:00 EST, Height, 145.9, kg, 05/22/23 7:39:00 EDT, Dry Weight Start Date: 07/31/23 Status: Ordered gabapentin 300 mg oral capsule 600 mg, 2, capsule, By Mouth, 3 times a day, # 180 capsule, Refills 3, Tot. Refills 3, Maintenance,08/25/22 22:35:00 EST, Route to Pharmacy Electronically, [facility]/pharmacy #2024, Partial fill upon patient [...] tablet, 0 Refills, Maintenance, 10/12/23 6:42:00 EDT, [facility]/pharmacy #2024, 157.5, cm, 07/13/23 9:57:00 EST, Height, 145.9, kg, 05/22/23 7:39:00 EDT, Dry Weight Start Date: 10/12/23 Status: Ordered meclizine 25 mg oral tablet See Instructions, PRN Dizziness, 1 tablet By Mouth 3 times a day, # 30 tablet, 0 Refills, Maintenance, 02/27/23 10:43:00 EDT, [facility]/pharmacy #2024, Partial fill upon patient [...] Maintenance, 10/24/23 11:39:00 EDT, ER Tablet, [facility], [facility] fill [...] 0 Refills, Maintenance, 10/08/23 17:51:00 EDT, [facility], Partial fill upon patient [...] Last Assessment & Plan: Continue outpatient medications. Results Radiology Reports * Exam Date Time Procedure Performing Provider Status 10/25/23 11:28 AM MM Digital Mammo Unilat Right Daniella Rich; Auth (Verified) Notes: (MM Digital Mammo Unilat Right) Reason For Exam: RT BREAST 6 MONTH BIOP FU RESULT: MM Digital Mammo Unilat Right PROCEDURE: MM Digital Mammo Unilat Right INDICATION: Reason: RT BREAST 6 MONTH BIOP FU 6 month follow-up imaging, benign RIGHT breast tomosynthesis biopsy 04/18/2023. COMPARISON: 04/18/2023, 03/30/2023, 12/16/2020. TECHNIQUE: Digital diagnostic RIGHT mammogram: 3-D full-field CC and MLO views. Computer- aided detection (CAD)was utilized in the interpretation of this study. FINDINGS: MAMMOGRAM: There is a mini cork shaped biopsy marking clip abutting the lateral margin of the biopsied 4 x 5 mm asymmetry. Margins appear slightly more indistinct than on the prebiopsy images, although it is nolarger and likely due to postbiopsy change. IMPRESSION: No suspicious changes. RECOMMENDATION: Annual mammographic screening BI-RADS: 2 (Benign) Lay letter mailed to patient Results and follow-up recommendations verbally communicated to the patient at [facility] 10/25/2023 11:30 AM. WSN: [id number] Ordering Physician: Celestina Trinidad Dictated By: Shae Arriaga MD Dictated Date/Time: 10/25/23 11:38 am Reviewed By: Shae Arriaga MD Signed By: Shae Arriaga MD Signed Date/Time: 10/25/23 11:38 am Transcribed By: ARGENTINA Machining Technician Date/Time: 10/25/23 11:29 am Birads: Social History Social History Type Response Smoking [...] Code MRI Safety Implantable Status Assigning Authority [id number] Unknown [id number] Unknown 08/26/24 Unknown Unknown Active GS1 Patient Care team information Care Team Personnel Name: Celestina Trinidad MD Position: [facility] Physician - Primary Care Member Role: PCP Address: Address: [address] [place] [id number] Name: Hemalatha Lucas RN Position: [facility] RN Member Role: Primary Care Nurse Name: Lauren Mack RN Position: [facility] AMB Nurse Member Role: Primary Care Nurse Name: Madelaine Ruiz RN Position: [facility] RN Member Role: Primary Care Nurse Name: Lora Santiago RN Position: [facility] RN Member Role: Primary Care Nurse Name: Mayco Ro RN Position: [facility] RN Member Role: Primary Care Nurse Name: Heydi Potts RN Position: [facility] SN RN Member Role: Primary Care Nurse Name: Janice Romano LPN Position: [facility] RN Member Role: Primary Care Nurse Name: Nadya Low RN Position: [facility] RN Member Role: Primary Care Nurse Name: Mirna Greenfield RN Position: [facility] RN Member Role: Primary Care Nurse Name: Nessa Bonilla RN Position: [facility] Automation Test Developer Member Role: Primary Care Nurse Care Team Related Persons Name: DINESH SARGENT Address: home [address] [place] [address] Name: BON [place] Address: [address] [address]
--- OUTSIDE RECORDS SUMMARY | 2024-06-24 14:19 | XMS_ITS | Continuity of Care Document ---
Author Organization [facility] Address [address] [place] [address]- Care Team Providers Care Income Auditor Name Role Phone Vivi HENNING, Celestina Gviens Primary Care Physician Encounter [facility] Date(s): 10/30/22 - 11/29/22 [facility] [address] [place] [address]- Allergies, Adverse Reactions, Alerts No Known Allergies Immunizations Given and Recorded Vaccine Date Status Refusal Reason tetanus/diphtheria/pertussis, acel(Tdap) 1 08/21/22 Given tetanus/diphtheria/pertussis, acel(Tdap) 2 08/13/12 Given [id number] 12y+ bivalent booster vax 06/14/22 Recorded influenza [...] inactivated 6 07/31/12 Gi hali SARS-CoV-2 mRNA (okksjfl-zzkq-brbip) vax 02/14/22 Recorded SARS-CoV-2 (COVID-19) mRNA BNT-162b2 vac 05/06/21 Given SARS-CoV-2 (COVID-19) mRNA BNT-162b2 vac 11/04/20 Recorded SARS-CoV-2 (COVID-19) mRNA BNT-162b2 vac 10/14/20 Recorded pneumococcal 23-valent vaccine 7 04/07/19 Given 1Result Comment: [facility]# [id number] 2Admin Note: VIM dated 08/22/11 GIVEN TODAY 3Result Comment: [facility]# [id number] 4Result Comment: [05/25/2018] seq[facility] lot number [id number] exp 01/26/2019 [facility] [id number] 5Result Comment: [08/20/2017] [facility] [id number] 6Admin Note: VIM dated 01/29/12 GIVEN TODAY 7Result Comment: [facility]#[id number] Medications acetaminophen 500 mg oral capsule 2 [...] Stop, 04/10/2215:14:00 EDT, Route to Pharmacy Electronically, [id number], [facility]/pharmacy #2025, 158, cm, 04/10/22 14:56:00 EDT, Height, 143,... Start Date: 04/10/22 Status: Ordered amLODIPine 10 mg oral tablet 1 tablet, By Mouth, Daily, # 90 tablet, 0 Refills, Maintenance, 10/23/22 12:47:00 EDT, [facility], 157, cm, 09/13/22 15:58:00 EST, Height, 145, kg, 08/29/22 20:13:00 EST, Dry Weight Start Date: 10/23/22 Status: Ordered budesonide-formoterol 80 mcg-4.5 mcg/inh inhalation aerosol with adapter 2, puffs, Inhalation, 2 times a day, PRN, use with spacer chamber, rinse mouth and throat after use, # 10.2 Gm, Refills 5, Tot. Refills 5, Maintenance, 09/12/22 11:06:00 EST, Aerosol, Route to Pharmacy Electronically, [id number]... Start Date: 09/12/22 Status: Ordered Compression Stockings [...] Gm, 1 Refills, 09/22/22 7:28:00 EST, [facility]/pharmacy #2024, 25, APPLY TOPICALLY 4 [...] Gm, 0 Refills, Maintenance, 02/28/21 16:31:00 EDT, [place], Partial fill upon patient request if the prescription is for... Start Date: 02/28/21 Status: Ordered FLUoxetine 20 mg oral capsule 1, capsule, By Mouth, Daily, # 90 capsule, Refills 1, Maintenance, 10/23/22 12:47:00 EDT, Route to [facility]acy Electronically, [facility], 157, cm, 09/13/22 15:58:00 EST, Height, 145, kg, 08/29/22 20:13:00 EST, Dry Weight Start Date: 10/23/22 Status: Ordered furosemide 20 mg oral tablet 1, tablet, By Mouth, Daily, MAY REPEAT IF NEEDED IN 2 HOURS, # 30 tablet, Refills 0, Maintenance, 11/29/22 22:18:00 EDT, Route to Pharmacy Electronically, [facility], 157, cm, 10/30/22 13:53:00 EDT, Height, 145, [...] Refills, Maintenance, 10/18/22 21:31:00 EDT, [facility], 157, cm, 09/13/22 15:58:00 EST,Height, 145, kg, [...] Team Personnel Name: Celestina Trinidad MD Position: [facility] Primary Care Physician Member Role: PCP Address: Address: [address] [place] [id number] Name: Hemalatha Lucas RN Position: [facility] RN Member Role: Primary Care Nurse Name: Lauren Mack RN Position: [facility] AMB Nurse Member Role: Primary Care Nurse Name: Madelaine Ruiz RN Position: [facility] RN Member Role: Primary Care Nurse Name: Lora Santiago RN Position: [facility] SN RN Member Role: Primary Care Nurse Name: Mayco Ro RN Position: [facility] RN Member Role: Primary Care Nurse Name: Heydi Potts RN Position: [facility] RN Member Role: Primary Care Nurse Name: Janice Romano LPN Position: [facility] RN Member Role: Primary Care Nurse Name: Nadya Low RN Position: [facility] RN Member Role: Primary Care Nurse Name: Mirna Greenfield RN Position: [facility] RN Member Role: Primary Care Nurse Name: Nessa Bonilla RN Position: [facility] Hospital Oven Heater Helper Member Role: Primary Care Nurse Care Team Related Persons Name: DINESH SARGENT Address: home [address] [place] [address] Name: BON [place] Address: home [address] [address]
--- OUTSIDE RECORDS SUMMARY | 2024-06-24 14:19 | XMS_ITS | Continuity of Care Document ---
Author Organization [facility] Address [address] [place] [address]- Care Team Providers Care Insurance Follow Up Specialist Name Role Phone Vivi HENNING, Celestina Givens Primary Care Physician Encounter [facility] Date[facility]s): 07/13/22 - 08/12/22 [facility] [address] [place] [address]- Attending Physician: Calixto Beltran Admitting Physician: Calixto Beltran Referring Physician: AdmtrCalixto Allergies, Adverse Reactions, Alerts No Known Allergies Immunizations Given and Recorded Vaccine Date Status Refusal Reason [id number] 12y+ bivalent booster vax 06/14/22 Recorded influenza [...] vaccine, inactivated 07/31/12 Gi hali SARS-CoV-2 mRNA (kccqjqg-opem-kvtwu) vax 02/14/22 Recorded SARS-CoV-2 (COVID-19) mRNA BNT-162b2 vac 05/06/21 Given SARS-CoV-2 (COVID-19) mRNA BNT-162b2 vac 11/04/20 Recorded SARS-CoV-2 (COVID-19) mRNA BNT-162b2 vac 10/14/20 Recorded pneumococcal 23-valent vaccine 5 04/07/19 Given tetanus/diphtheria/pertussis, acel(Tdap) 6 08/13/12 Given 1Result Comment: [facility]# [id number] 2Result Comment: [05/25/2018] [facility] lot number [id number] exp 01/26/2019 [facility] [id number] 3Result Comment: [08/20/2017] [facility] [id number] 4Admin Note: VIM dated 01/29/12 GIVEN TODAY 5Result Comment: [facility]#[id number] 6Admin Note: VIM dated 08/22/11 GIVEN TODAY [...] Stop, 04/10/2215:14:00 EDT, Route to Pharmacy Electronically, [id number], [facility]/pharmacy #2025, 158, cm, 04/10/22 14:56:00 EDT, Height, 143,... Start Date: 04/10/22 Status: Ordered amLODIPine 10 mg oral tablet 1 tablet, By Mouth, Daily, # 90 tablet, 0 Refills, Maintenance, 07/21/22 17:34:00 EST, [facility], 158, cm, 07/21/22 15:09:00 EST, Height, 143, kg, 01/04/21 10:42:00 EDT, Dry Weight Start Date: 07/21/22 Status: Ordered Anoro Ellipta 62.5 mcg-25 mcg/inh inhalation powder 1 puffs, By Mouth, Daily, # 1 each, 6 Refills, Maintenance, 05/11/22 13:00:00 EDT, Powder, [facility], Partial fill upon patient [...] 0 Refills, Maintenance, 08/01/22 16:58:00 EST, Tablet, [facility]/pharmacy #2024, Partial fill upon [...] tablet, 0 Refills, Maintenance, 08/10/22 16:34:00 EST, [facility]/pharmacy #2024, 159, cm, 08/01/22 14:14:00 EST, Height, 143, kg, 01/04/21 10:42:00 EDT, Dry Weight Start Date: 08/10/22 Stop Date: 08/20/22 Status: Ordered Flonase 50 mcg/inh nasal spray See Instructions, 2 sprays Nares twice daily x 1 week, then once daily x 1-2 weeks until symptoms improve, # 16 Gm, 0 Refills, Maintenance, 02/28/21 16:31:00 EDT, [place], [facility]/pharmacy #2025, Partial fill upon patient request if the prescription is for... Start Date: 02/28/21 Status: Ordered FLUoxetine 20 mg oral capsule See Instructions, TAKE 1 CAPSULE BY MOUTH EVERY DAY, # 90 capsule, Refills 1, Maintenance, 06/13/2215:26:00 EST, Instructions Replace Required Details, Route to Pharmacy Electronically, [facility], 158, cm, 06/09/22 11:21:00 EST, Height, 143, kg... Start Date: 06/13/22 Status: Ordered gabapentin 300 mg oral capsule 600 mg, 2, capsule, By Mouth, 2 times a day, # 120 capsule, Refills 1, Tot. Refills 1, Maintenance,07/22/22 8:06:00 EST, Route to Pharmacy Electronically, [facility]/pharmacy #202, Partial fill upon patient request if the prescription is for a schedule II... Start Date: 07/22/22 Status: Ordered levothyroxine 0.137 mg oral tablet 1 tablet = 137 mcg, By Mouth, Daily, 1 tab on days 1-6, take 2 tabs on day 7, # 102 tablet, 1 Refills, Maintenance, 07/03/22 14:41:00 EST, Tablet, [facility]/pharmacy #2025, Partial fill upon patient request if the prescription is for a schedule II opioid drMelonie.. Start Date: 07/03/22 Status: Ordered levothyroxine 0.137 mg oral tablet See Instructions, TAKE 1 TABLET BY MOUTH ON DAYS 1-6, THEN TAKE 2 TABLETS BY MOUTH ON DAY 7 Needs TSH lab work for refills, # 96 tablet, 0 Refills, 06/29/22 15:47:00 EST, [facility]/pharmacy #2024, 158, cm,06/09/22 11:21:00 EST, Height, 143, kg, 01/04/21 1... Start Date: 06/29/22 Status: Ordered meclizine 25 mg oral tablet See Instructions, PRN Dizziness, 1 tablet By Mouth 3 times a day, # 30 tablet, 0 Refills, Maintenance, 05/11/21 13:11:00 EDT, [facility]/pharmacy #2024, Partial fill upon patient request if the prescriptionis for a schedule II opioid drug., 160.02, cm, 10/0... Start Date: 05/11/21 Status: Ordered meloxicam 15 mg oral tablet See Instructions, TAKE 1 TABLET BY MOUTH DAILY WITH FOOD. LABS NEEDED FOR FURTHER REFILLS, # 30 tablet, 3 Refills, Maintenance, 07/17/22 19:56:00 EST, [facility]/pharmacy #2024, 158, cm, 07/13/22 13:46:00 EST, Height, 143, kg, 01/04/21 10:42:00 EDT, Dry Weight Start Date: 07/17/22 Status: Ordered oxyCODONE 10 mg oral tablet 1 tablet = 10 mg, By Mouth, Every 6 hours, PRN as needed for pain, # 20 tablet, 0 Refills, Maintenance, 08/01/22 16:58:00 EST, Tablet, [facility]/pharmacy #2024, Partial fill upon [...] Acute 09/27/22 16:00:00 EST, 08/01/22 21:26:00EST, Oint[place], [facility]/pharmacy #2024, Partial fill upon [...] x 25 years; entered on: 11/14/21 Sex EKG study * Event Display: EKG Authored Date: Note * Event Display: Non BH Lab Results [...] Lab Results Authored Date: * Event Display: Discharge/Transfer Note Hospital Authored Date: * Event Display: Non [facility] Radiology Results Authored Date: [id number] * Yesenia Kwon: PERFORM, SIGN, VERIFY Event Display: Patient Education/Instruction Authored Date: [id number] [facility] BMP PV Family Clinical Summary Person Information [...] care provider, you may find a [facility] provider by calling [facility] at [phone]. Patient Education Information Follow-up Details: Patient Education Material: Please follow instructions discussed with your provider during this visit as well as any education documents you were given today. * Ada Odell: PERFORM Event Display: Radiology Results Scanned Authored Date: [id number] * Fernando Jamison S: PERFORM Event Display: Radiology Results Scanned Authored Date: Deprecated MR Spine study * Event Display: MRI Spine Authored Date: Patient Care team information Care Team Personnel Name: Celestina Trinidad MD Position: [facility] Primary Care Physician Member Role: PCP Address: Address: [address] [place] [id number] Name: Lauren Mack RN Position: [facility] Nurse Member Role: Primary Care Nurse Name: Lora Santiago RN Position: [facility] RN Member Role: Primary Care Nurse Name: Mayco Ro RN Position: [facility] RN Member Role: Primary Care Nurse Name: Heydi Potts RN Position: [facility] RN Member Role: Primary Care Nurse Name: Nadya Low RN Position: [facility] RN Member Role: Primary Care Nurse Name: Mirna Greenfield RN Position: [facility] RN Member Role: Primary Care Nurse Name: Nessa Bonilla RN Position: [facility] Enterprise Resource Planning Consultant Member Role: Primary Care Nurse Care Team Related Persons Name: DINESH SARGENT Address: [place] [address] Name: [place] Address: [address] [address]
--- OUTSIDE RECORDS SUMMARY | 2024-06-24 14:19 | XMS_ITS | Continuity of Care Document ---
Author Organization [facility] Address [address] [place] [id number]- Care Team Providers Care Academic Department Chair Name Role Phone Vivi HENNING, Celestina Givens Primary Care Physician [facility] Date[facility]): 04/15/22 - 08/13/22 [facility] [address] [place] [address] Attending Physician: Hector Boss MD Admitting Physician: Hector Boss MD Referring Physician: Madeline Lux NP Allergies, Adverse Reactions, Alerts No Known Allergies Immunizations Given and Recorded Vaccine Date Status Refusal Reason [id number] 12y+ bivalent booster vax 06/14/22 Recorded influenza [...] inactivated 4 07/31/12 Gi hali SARS-CoV-2 mRNA (ulfjlcs-erok-qcbim) vax 02/14/22 Recorded SARS-CoV-2 (COVID-19) mRNA BNT-162b2 vac 05/06/21 Given SARS-CoV-2 (COVID-19) mRNA BNT-162b2 vac 11/04/20 Recorded SARS-CoV-2 (COVID-19) mRNA BNT-162b2 vac 10/14/20 Recorded pneumococcal 23-valent vaccine 5 04/07/19 Given tetanus/diphtheria/pertussis, acel(Tdap) 6 08/13/12 Given 1Result Comment: formerly named [facility]# [id number] 2Result Comment: [05/25/2018] [facility] lot number [id number] exp 01/26/2019 formerly [facility] [id number] 3Result Comment: [08/20/2017] formerly [facility] [id number] 4Admin Note: VIM dated 01/29/12 GIVEN TODAY 5Result Comment: [facility]#[id number] 6Admin Note: VIM dated 08/22/11 GIVEN TODAY [...] Stop, 04/10/2215:14:00 EDT, Route to Pharmacy Electronically, [id number], [facility]/pharmacy #2025, 158, cm, 04/10/22 14:56:00 EDT, Height, 143,... Start Date: 04/10/22 Status: Ordered amLODIPine 10 mg oral tablet 1 tablet, By Mouth, Daily, # 90 tablet, 0 Refills, Maintenance, 07/21/22 17:34:00 EST, [facility], 158, cm, 07/21/22 15:09:00 EST, Height, 143, kg, 01/04/21 10:42:00 EDT, Dry Weight Start Date: 07/21/22 Status: Ordered Anoro Ellipta 62.5 mcg-25 mcg/inh inhalation powder 1 puffs, By Mouth, Daily, # 1 each, 6 Refills, Maintenance, 05/11/22 13:00:00 EDT, Powder, [facility], Partial fill upon patient request [...] 0 Refills, Maintenance, 08/01/22 16:58:00 EST, Tablet, [facility]/pharmacy #2024, Partial fill [...] tablet, 0 Refills, Maintenance, 08/10/22 16:34:00 EST, [facility]/pharmacy #2024, 159, cm, 08/01/22 14:14:00 EST, Height, 143, kg, 01/04/21 10:42:00 EDT, Dry Weight Start Date: 08/10/22 Stop Date: 08/20/22 Status: Ordered Flonase 50 mcg/inh nasal spray See Instructions, 2 sprays Nares twice daily x 1 week, then once daily x 1-2 weeks until symptoms improve, # 16 Gm, 0 Refills, Maintenance, 02/28/21 16:31:00 EDT, [place], [facility]/pharmacy #202, Partial fill upon patient request if the prescription is for... Start Date: 02/28/21 Status: Ordered FLUoxetine 20 mg oral capsule See Instructions, TAKE 1 CAPSULE BY MOUTH EVERY DAY, # 90 capsule, Refills 1, Maintenance, 06/13/2215:26:00 EST, Instructions Replace Required Details, Route to Pharmacy Electronically, [facility], 158, cm, 06/09/22 11:21:00 EST, Height, 143, kg... Start Date: 06/13/22 Status: Ordered gabapentin 300 mg oral capsule 600 mg, 2, capsule, By Mouth, 2 times a day, # 120 capsule, Refills 1, Tot. Refills 1, Maintenance,07/22/22 8:06:00 EST, [facility] Maintenance, 07/03/22 14:41:00 EST, Tablet, [facility]/pharmacy #202, Partial fill [...] 0 Refills, 06/29/22 15:47:00 EST, [facility]/pharmacy #2024, 158, cm,06/09/22 11:21:00 EST, Height, 143, kg, 01/04/21 1... Start Date: 06/29/22 Status: Ordered meclizine 25 mg oral tablet See Instructions, PRN Dizziness, 1 tablet By Mouth 3 times a day, # 30 tablet, 0 Refills, Maintenance, 05/11/21 13:11:00 EDT, [facility]/pharmacy #2024, Partial fill upon patient request if the prescriptionis for a schedule II opioid drug., 160.02, cm, 10/0... Start Date: 05/11/21 Status: Ordered meloxicam 15 mg oral tablet See Instructions, TAKE 1 TABLET BY MOUTH DAILY WITH FOOD. LABS NEEDED FOR FURTHER REFILLS, # 30 tablet, 3 Refills, Maintenance, 07/17/22 19:56:00 EST, [facility]/pharmacy #2024, 158, cm, 07/13/22 13:46:00 EST, Height, 143, kg, 01/04/21 10:42:00 EDT, Dry Weight Start Date: 07/17/22 Status: Ordered oxyCODONE 10 mg oral tablet 1 tablet = 10 mg, By Mouth, Every 6 hours, PRN as needed for pain, # 20 tablet, 0 Refills, Maintenance, 08/01/22 16:58:00 EST, Tablet, [facility]/pharmacy #2024, Partial fill [...] Acute 09/27/22 16:00:00 EST, 08/01/22 21:26:00EST, Ointment, [facility]/pharmacy #2024, Partial fill [...] Physician Member Role: PCP Address: Address: [address] [place] [address] Name: Lauren Mack RN Position: [facility] RN Position: [facility] Hospital Lab Assistant Member Role: Primary Care Nurse Care Team Related Persons Name: MADELINE SARGENT Address: home [address] [place] [address] Name: BON DE Address: home [address] [place] [address]
--- OUTSIDE RECORDS SUMMARY | 2024-06-24 14:19 | XMS_ITS | Continuity of Care Document ---
Author Organization [facility] Address [address] [place] [address]- Care Team Providers Care Ged Teacher Name Role Phone Vivi HENNING, Celestina Givens Primary Care Physician [facility] Date[facility]): 04/29/24 - 05/29/24 [facility] [address] [place] [address]- Allergies, Adverse Reactions, Alerts No Known Allergies [...] 08/21/22 Given tetanus/diphtheria/pertussis, acel(Tdap) 7 08/13/12 Given GLQF-IfS-3pLME 12y+ bivalent booster vax 06/14/22 Recorded SARS-CoV-2 mRNA (ghjulco-ubum-ntekt) vax 02/14/22 Recorded SARS-CoV-2 (COVID-19) mRNA BNT-162b2 vac 05/06/21 Given SARS-CoV-2 (COVID-19) mRNA BNT-162b2 vac 11/04/20 Recorded SARS-CoV-2 (COVID-19) mRNA BNT-162b2 vac 10/14/20 Recorded pneumococcal 23-valent vaccine 8 04/07/19 Given 1Result Comment: screening negative 2Result Comment: [facility]# [id number] 3Result Comment: [05/25/2018] [employer] lot number [id number] exp 01/26/2019 [facility] [id number] 4Result Comment: [08/20/2017] [facility] [id number] 5Admin Note: VIM dated 01/29/12 GIVEN TODAY 6Result Comment: [facility]# [id number] 7Admin Note: VIM dated 08/22/11 GIVEN TODAY 8Result Comment: [facility]#[id number] Medications acetaminophen 500 mg oral capsule 2 [...] 1 Refills, Soft Stop, 12/06/23 17:28:00 EDT, [facility]/pharmacy #5, Partial fill upon patient request [...] 05/17/24 16:46:00 EDT, Route to Pharmacy Electronically, [facility]/pharmacy #202, Partial fill upon patient request if the prescription is for a... Start Date: 05/17/24 Status: Ordered diclofenac 1% topical gel See Instructions, APPLY TO AFFECTED AREA 4 TIMES A DAY. NOT COVERED, # 100 Gm, 1 Refills, Maintenance, 04/22/24 15:15:00 EDT, [facility]/pharmacy #2024, 30, APPLY TO AFFECTED AREA 4 TIMES A DAY. NOT COVERED, 157.5, cm, 02/12/24 14:48:00 EDT, Height, 145.9, k... Start Date: 04/22/24 Status: Ordered diclofenac 1% topical gel See Instructions, APPLY TO AFFECTED AREA 4 TIMES A DAY, # 100 Gm, 1 Refills, Maintenance, 11/07/23 7:48:00 EDT, [facility]/pharmacy #2024, 25, APPLY TO AFFECTED AREA [...] Gm, 0 Refills, Maintenance, 02/28/21 16:31:00 EDT, [place], [facility]/pharmacy #2025, Partial fill upon patient request if the prescription is for... Start Date: 02/28/21 Status: Ordered FLUoxetine 10 mg oral capsule 1, capsule, By Mouth, Daily, INSTR:TO BE TAKEN WITH 20MG CAPSULES TO EQUAL 30MG DAILY, # 90 capsule, Refills 1, Maintenance, 01/25/24 9:11:00 EDT, Route to Pharmacy Electronically, [facility], 157.5, cm, 01/22/24 10:31:00 EDT, Height, 145.9, kg,... Start Date: 01/25/24 Status: Ordered gabapentin 300 mg oral capsule 600 mg, 2, capsule, By Mouth, 3 times a day, # 180 capsule, Refills 3, Tot. Refills 3, Maintenance,08/25/22 22:35:00 EST, Route to Pharmacy Electronically, [facility]/pharmacy #202, Partial fill upon patient request [...] tablet, 1 Refills, Maintenance, 12/28/23 16:17:00 EDT, [facility], 157.5, cm, 10/18/23 15:15:00 EDT, Height, 145.9, [...] Code MRI Safety Implantable Status Assigning Authority [id number] Unknown [id number] Unknown 08/26/24 Unknown Unknown Active GS1 Patient Care team information Care Team Personnel Name: Celestina Trinidad MD Position: [facility] Physician - Primary Care Member Role: PCP Address: Address: [address] [place] [address] Name: Hemalatha Lucas RN Position: [facility] RN Member Role: Primary Care Nurse Name: Lauren Mack RN Position: [facility] RN Member Role: Primary Care Nurse Name: Madelaine Ruiz RN Position: [facility] RN Member Role: Primary Care Nurse Name: Lora Santiago RN Position: [facility] SN RN Member Role: Primary Care Nurse Name: Mayco Ro RN Position: [facility] RN Member Role: Primary Care Nurse Name: Heydi Potts RN Position: [facility] SN RN Member Role: Primary Care Nurse Name: Janice Romano LPN Position: [facility] RN Member Role: Primary Care Nurse Name: Nadya Low RN Position: [facility] RN Member Role: Primary Care Nurse Name: Mirna Greenfield RN Position: [facility] RN Member Role: Primary Care Nurse Name: Nessa Bonilla RN Position: [facility] Fishing Tool Technician Oil Well Member Role: Primary Care Nurse Care Team Related Persons Name: ROSETTA, DINESH Address: home [address] [place] [address] Name: BON DE Address: home [address] [address]
--- OUTSIDE RECORDS SUMMARY | 2024-06-24 14:19 | XMS_ITS | Continuity of Care Document ---
Author Organization [facility] Address [address] [place] [address]- Care Team Providers Care Monument Setter Name Role Phone Vivi HENNING, Celestina Givens Primary Care Physician Encounter [facility] Date(s): 02/06/23 - 03/08/23 [facility] [address] [place] [address]- Allergies, Adverse Reactions, Alerts No Known Allergies Immunizations Given and Recorded Vaccine Date Status Refusal Reason tetanus/diphtheria/pertussis, acel(Tdap) 1 08/21/22 Given tetanus/diphtheria/pertussis, acel(Tdap) 2 08/13/12 Given [id number]-[id number] 12y+ bivalent booster vax 06/14/22 Recorded influenza [...] inactivated 6 07/31/12 Gi hali SARS-CoV-2 mRNA (jtthoan-dvqh-sicls) vax 02/14/22 Recorded SARS-CoV-2 (COVID-19) mRNA BNT-162b2 vac 05/06/21 Given SARS-CoV-2 (COVID-19) mRNA BNT-162b2 vac 11/04/20 Recorded SARS-CoV-2 (COVID-19) mRNA BNT-162b2 vac 10/14/20 Recorded pneumococcal 23-valent vaccine 7 04/07/19 Given 1Result Comment: [facility]# [id number] 2Admin Note: VIM dated 08/22/11 GIVEN TODAY 3Result Comment: formerly [facility]# [id number] 4Result Comment: [05/25/2018] [facility] lot number [id number] exp 01/26/2019 formerly [facility] [id number] 5Result Comment: [08/20/2017] formerly [facility] [id number] 6Admin Note: VIM dated 01/29/12 GIVEN TODAY 7Result Comment: [facility]#[id number] Medications acetaminophen 500 mg oral capsule 2 [...] Stop, 04/10/2215:14:00 EDT, Route to Pharmacy Electronically, [id number], [facility]/pharmacy #2025, 158, cm, 04/10/22 14:56:00 EDT, Height, 143,... Start Date: 04/10/22 Status: Ordered amLODIPine 10 mg oral tablet 1 tablet, By Mouth, Daily, # 90 tablet, 0 Refills, Maintenance, 10/23/22 12:47:00 EDT, [facility], 157, cm, 09/13/22 15:58:00 EST, Height, 145, kg, 08/29/22 20:13:00 EST, Dry Weight Start Date: 10/23/22 Status: Ordered budesonide-formoterol 80 mcg-4.5 mcg/inh inhalation aerosol with adapter 2, puffs, Inhalation, 2 times a day, PRN, use with spacer chamber, rinse mouth and throat after use, j44.9, # 1 each, Refills 6, Tot. Refills 6, Maintenance, 12/08/22 12:55:00 EDT, Aerosol, Route to Pharmacy Electronically, [id number]... Start Date: 12/08/22 Status: Ordered cilostazol 50 mg oral tablet 1 tablet, By Mouth, Daily, # 90 tablet, 1 Refills, Maintenance, 02/08/23 7:54:00 EDT, [facility], 157, cm, 12/08/22 14:27:00 EDT, Height, 145, [...] 100 Gm, 1 Refills, Maintenance, 01/08/23 9:36:00EDT, [facility], 50, APPLY TOPICALLY 4 TIMES A DAY, 157, cm, 12/08/22 14:27:00 EDT, Height, 145, kg, 08/29/22 20:13:00 EST, Dry Weight Start Date: 01/08/23 Status: Ordered docusate sodium 100 mg oral capsule 100 mg, 1, capsule, By Mouth, 2 times a day, PRN, # 20 capsule, Refills 0, Tot. Refills 0, Maintenance, as needed for constipation, 08/31/22 13:30:00 EST, Route to Pharmacy Electronically, [facility]/pharmacy #2025, Partial fill upon patient request if the p... Start Date: 08/31/22 Status: Ordered Flonase 50 mcg/inh nasal spray See Instructions, 2 sprays Nares twice daily x 1 week, then once daily x 1-2 weeks until symptoms improve, # 16 Gm, 0 Refills, Maintenance, 02/28/21 16:31:00 EDT, [place], [facility]/pharmacy #2025, Partial fill upon patient request if the prescription is for... Start Date: 02/28/21 Status: Ordered FLUoxetine 10 mg oral capsule 10 mg, 1, capsule, By Mouth, Daily, to be taken with 20mg capsules to equal 30mg daily, # 90 capsule, Refills 0, Tot. Refills 0, Maintenance, 01/18/23 9:13:00 EDT, [facility] fill upon patient request... Start [...] 11/29/22 22:18:00 EDT, Route to Pharmacy Electronically, [facility] 46[facility], 157, cm, 10/30/22 13:53:00 EDT, Height, 145, kg, 08/29/22 20:13:00 EST, Dry Weight Start Date: 11/29/22 Status: Ordered gabapentin 300 mg oral capsule 600 mg, 2, capsule, By Mouth, 3 times a day, # 180 capsule, Refills 3, Tot. Refills 3, Maintenance,08/25/22 22:35:00 EST, Route to Pharmacy Electronically, [facility]/pharmacy #2025, Partial [...] tablet, 2 Refills, Maintenance, 02/27/23 7:25:00 EDT, [facility] ST[facility] 14[facility], 157, cm, 12/08/22 14:27:00 EDT, Height, 145, [...] tablet, 1 Refills, Maintenance, 03/05/23 9:28:00 EDT, [facility]ORE 217[facility], 157, cm, 12/08/22 14:27:00 EDT, Height, 145, [...] 09/05/22 16:29:00 EST, Route to Pharmacy Electronically, [facility]/pharmacy #2025, Partialfill upon patient request if the [...] Trinidad MD Position: [facility] Physician - Primary Care Member Role: PCP Address: Address: [address] [place] [address] Name: Hemalatha Lucas RN Position: [facility] RN Member Role: Primary Care Nurse Name: Lauren Mack RN Position: [facility] AMB Nurse Member Role: Primary Care Nurse Name: Madelaine Ruiz RN Position: [facility] RN Member Role: Primary Care Nurse Name: Lora Santiago RN Position: [facility] RN [...] Name: Nessa Bonilla RN Position: [facility] Cash Register Operator Member Role: Primary Care Nurse Care Team Related Persons Name: DINESH SARGENT Address: home [address] [place] [address] Name: BON DE Address: home [address] [address]
--- OUTSIDE RECORDS SUMMARY | 2024-06-24 14:19 | XMS_ITS | Continuity of Care Document ---
Author Organization [facility] Address [address] [place] [address]- Care Team Providers Care Deflector Operator Name Role Phone Vivi HENNING, Celestina Givens Primary Care Physician [facility] Date[facility]): 04[facility]16[facility]24 - 05/16/24 [facility] [address] [place] [address]- Allergies, Adverse Reactions, Alerts No Known Allergies [...] 08/21/22 Given tetanus/diphtheria/pertussis, acel(Tdap) 7 08/13/12 Given MFAT-WrC-6uBUF 12y+ bivalent booster vax 06/14/22 Recorded SARS-CoV-2 mRNA (zctdttb-uokz-blfzk) vax 02/14/22 Recorded SARS-CoV-2 (COVID-19) mRNA BNT-162b2 vac 05/06/21 Given SARS-CoV-2 (COVID-19) mRNA BNT-162b2 vac 11/04/20 Recorded SARS-CoV-2 (COVID-19) mRNA BNT-162b2 vac 10/14/20 Recorded pneumococcal 23-valent vaccine 8 04/07/19 Given 1Result Comment: screening negative 2Result Comment: [facility]# [id number] 3Result Comment: [05/25/2018] [facility] lot number [id number] exp 01/26/2019 [facility] [id number] 4Result Comment: [08/20/2017] [facility] [id number] 5Admin Note: VIM dated 01/29/12 GIVEN TODAY 6Result Comment: [facility]# [id number] 7Admin Note: VIM dated 08/22/11 GIVEN TODAY 8Result Comment: [facility]#[id number] Medications acetaminophen 500 mg oral capsule 2 [...] 12/06/23 17:28:00 EDT, [facility]/pharmacy #5, Partial fill upon patient request if [...] Gm, 0 Refills, Maintenance, 02/28/21 16:31:00 EDT, [place], [facility]/pharmacy #2024, Partial fill upon patient request if the prescription is for... Start Date: 02/28/21 Status: Ordered FLUoxetine 10 mg oral capsule 1, capsule, By Mouth, Daily, INSTR:TO BE TAKEN WITH 20MG CAPSULES TO EQUAL 30MG DAILY, # 90 capsule, Refills 1, Maintenance, 01/25/24 9:11:00 EDT, Route to Pharmacy Electronically, [facility] 16129, 157.5, cm, 01/22/24 10:31:00 EDT, Height, 145.9, [...] Refills, Maintenance, 12/28/23 16:17:00 EDT, [facility], 157.5, cm, 10/18/23 15:15:00 EDT, Height, 145.9, [...] tablet, 1 Refills, Maintenance, 03/28/24 7:37:00 EDT, [facility]/pharmacy #2025, 157.5, cm, 02/12/24 14:48:00 EDT, Height, 145.9, kg, :39:00 EDT, Dry Weight Start Date: 03/28/24 Status: Ordered metFORMIN 500 mg oral tablet, extended release 1 tablet = 500 mg, By Mouth, Daily, # 90 tablet, 1 Refills, Maintenance, 01/22/24 11:02:00 EDT, ER Tablet, [facility]/pharmacy #2025, Partial fill [...] tablet, 0 Refills, Maintenance, 05/08/24 17:33:00 EDT, [facility]/pharmacy #5, Partial fill upon patient request if [...] Code MRI Safety Implantable Status Assigning Authority [id number] Unknown [id number] Unknown 08/26/24 Unknown Unknown Active GS1 Patient Care team information Care Team Personnel Name: Celestina Trinidad MD Position: [facility] Physician - Primary Care Member Role: PCP Address: Address: [address] [place] [id number] Name: Hemalatha Lucas RN [facility] [...] Bonilla RN Position: [facility] Cemetery Laborer Member Role: Primary Care Nurse Care Team Related Persons Name: DINESH SARGENT Address: home [address] [place] [address] Name: BON DE Address: [address] [address]
--- OUTSIDE RECORDS SUMMARY | 2024-06-24 14:19 | XMS_ITS | Continuity of Care Document ---
Author Organization [facility] Address [address] [place] [address]- Care Team Providers Care Antenna Design Engineer Name Role Phone Vivi HENNING, Celestina Givens Primary Care Physician [place] [facility] [place] 08/12/23 [facility] [address] [place] [address]- Attending Physician: Calixto Beltran Admitting Physician: Calixto [...] 08/21/22 Given tetanus/diphtheria/pertussis, acel(Tdap) 7 08/13/12 Given [id number] 12y+ bivalent booster vax 06/14/22 Recorded SARS-CoV-2 mRNA (nnxaxbr-cdru-clwgi) vax 02/14/22 Recorded SARS-CoV-2 (COVID-19) mRNA BNT-162b2 vac 05/06/21 Given SARS-CoV-2 (COVID-19) mRNA BNT-162b2 vac 11/04/20 Recorded SARS-CoV-2 (COVID-19) mRNA BNT-162b2 vac 10/14/20 Recorded pneumococcal 23-valent vaccine 8 04/07/19 Given 1Result Comment: screening negative 2Result Comment: [facility]# [id number] 3Result Comment: [05/25/2018] [facility] lot number [id number] exp 01/26/2019 [facility] [id number] 4Result Comment: [08/20/2017] [facility] [id number] 5Admin Note: VIM dated 01/29/12 GIVEN TODAY 6Result Comment: [facility]# [id number] 7Admin Note: VIM dated 08/22/11 GIVEN TODAY 8Result Comment: [facility]#[id number] Medications acetaminophen 500 mg oral capsule 2 [...] Gm, 1 Refills, Maintenance, 06/05/23 10:25:00 EST, [facility]/pharmacy #202, 50, APPLY TOPICALLY 4 TIMES A DAY, 157.5, cm, 05/22/23 7:39:00 EDT, Height, 145.9, kg, 05/22/23 7:39:00 EDT, Dry Weight Start Date: 06/05/23 Status: Ordered Flonase 50 mcg/inh nasal spray See Instructions, 2 sprays Nares twice daily x 1 week, then once daily x 1-2 weeks until symptoms improve, # 16 Gm, 0 Refills, Maintenance, 02/28/21 16:31:00 EDT, [place], [facility], Partial fill upon patient request [...] 07/31/23 19:01:00 EST, Route to Pharmacy Electronically, [facility]/pharmacy #2024, 157.5, cm, 07/13/23 9:57:00 EST, Height, 145.9, kg, 05/22/23 7:39:00 EDT, Dry Weight Start Date: 07/31/23 Status: Ordered gabapentin 300 mg oral capsule 600 mg, 2, capsule, By Mouth, 3 times a day, # 180 capsule, Refills 3, Tot. Refills 3, Maintenance,08/25/22 22:35:00 EST, Route to Pharmacy Electronically, [facility]/pharmacy #202, Partial fill upon patient request [...] tablet, 2 Refills, Maintenance, 02/27/23 7:25:00 EDT, [facility] STORE [facility], 157, cm, 12/08/22 14:27:00 EDT, Height, 145, kg, 08/29/22 20:13:00 EST, Dry... Start Date: 02/27/23 Status: Ordered levothyroxine 150 mcg (0.15 mg) oral tablet 1 tablet = 150 mcg, By Mouth, Daily, # 90 tablet, 0 Refills, Maintenance, 07/15/23 17:38:00 EST, Tablet, [facility]/pharmacy #202, Partial fill upon patient request if the prescription is for a schedule IIopioid drug., 157.5, cm, 07/13/23 9:57:00 EST, [place]... Start Date: 07/15/23 Status: Ordered meclizine 25 mg oral tablet See Instructions, PRN Dizziness, 1 tablet By Mouth 3 times a day, # 30 tablet, 0 Refills, Maintenance, 02/27/23 10:43:00 EDT, [facility]/pharmacy #202, Partial fill upon patient request if the prescriptionis for a schedule II opioid drug., 157, cm, ... Start Date: 02/27/23 Status: Ordered meloxicam 15 mg oral tablet See Instructions, TAKE 1 TABLET BY MOUTH DAILY WITH FOOD. LABS NEEDED FOR FURTHER REFILLS, # 30 tablet, 1 Refills, Maintenance, 07/28/23 10:21:00 EST, [facility], 157.5, cm, 07/13/23 9:57:00 EST, Height, 145.9, [...] tablet, 0 Refills, Maintenance, 08/05/23 12:22:00 EST, [facility]/pharmacy #2025, 157.5, cm, 07/13/23 9:57:00 EST, [...] 0 Refills, Maintenance, 08/09/23 20:17:00 EST, [facility], Partial fill upon patient [...] Code MRI Safety Implantable Status Assigning Authority [id number] Unknown [id number] Unknown 08/26/24 Unknown Unknown Active GS1 EKG study * Event Display: EKG Authored Date: Laboratory * Event Display: Laboratory Result Scanned Authored [...] Event Display: Radiology Results Scanned Authored Date: * Fernando Jamison S: PERFORM Event Display: Radiology Results Scanned Authored Date: Note * Event Display: Discharge/Transfer Note Hospital Authored Date: * Yesenia Kwon: PERFORM, SIGN, VERIFY Event Display: Patient Education/Instruction Authored Date: [facility] BMP PV Family Clinical Summary Person [...] primary care provider, you may find a [facility] provider by calling [facility] [employer] at [phone]. Patient Education Information Follow-up Details: Patient Education Material: Please follow instructions discussed with your provider during this visit as well as any education documents you were given today. Patient Care team information Care Team Personnel Name: Celestina Trinidad MD Position: [facility] Physician - Primary Care Member Role: PCP Address: Address: [address] [place] [address] Family Medicine [address] Name: Hemalatha Lucas RN Position: [facility] RN Member Role: Primary Care Nurse Name: Lauren Mack RN Position: [facility] Nurse Member Role: Primary Care Nurse Name: Madelaine Ruiz RN Position: [facility] RN Member Role: Primary Care Nurse Name: Lora Santiago RN Position: [facility] RN [...] Name: Nessa Bonilla RN Position: [facility] Reel Operator Member Role: Primary Care Nurse Care Team Related Persons Name: ROSETTA DINESH Address: home [address] [address] Name: BON DE Address: home [address] [address]
--- OUTSIDE RECORDS SUMMARY | 2024-06-24 14:19 | XMS_ITS | Continuity of Care Document ---
Author Organization [facility] Address [address] [place] [address]- Care Team Providers Care Protein Chemist Name Role Phone Florentino AHN, Elder Hannah Primary Care Physician [phone] [facility]counter [facility] Date[facility]s): 09/13/20 - 10/13/20 [facility] [address] [place] [address]- Allergies, Adverse Reactions, Alerts Substance Reaction Severity [...] 08/13/12 Given 1Result Comment: [facility]# [id number] 2Result Comment: [05/25/2018] [facility] lot number [id number] exp 01/26/2019 [facility] [id number] 3Result Comment: [08/20/2017] [facility] [id number] 4Admin Note: VIM dated 01/29/12 GIVEN TODAY 5Result Comment: [facility]#[id number] 6Admin Note: VIM dated 08/22/11 GIVEN TODAY [...] PUFFS EVERY 6 HOURS NEEDED FOR WHEEZE, [facility]/pharmacy #2024 Start Date: 05/27/19 Status: Ordered diclofenac 1% topical gel See Instructions, APPLY TOPICALLY 4 TIMES A DAY, # 100 Gm, 0 Refills, Maintenance, [facility], APPLY TOPICALLY 4 TIMES A DAY, 161, cm, 06/08/20 13:48:00 EST, Height Start Date: 07/12/20 Status: Ordered FLUoxetine 20 mg oral capsule 20 mg, 1, capsule, By Mouth, Daily, # 30 capsule, Refills 5, Tot. Refills 5, Maintenance, 05/13/20 9:34:00 EDT, Route to Pharmacy Electronically, [facility]/pharmacy #2024, replacing 10mg dose, 161, cm, 05/13/20 8:28:00 EDT, Height Start Date: 05/13/20 Status: Ordered levothyroxine 0.137 mg oral tablet See Instructions, Take 1 tablet by mouth on days 1-6, then take 2 tablets by mouth on day 7, # 121 tablet, 1 Refills, Maintenance, 08/31/20 7:32:00 EST, [facility]/pharmacy #2024, 161, cm, 08/18/20 15:29:00EST, Height Start Date: 08/31/20 Status: Ordered meloxicam 15 mg oral tablet 1 tablet, By Mouth, Daily, WITH FOOD., # 30 tablet, 1 Refills, Maintenance, 08/30/20 7:37:00 EST, [facility], 161, cm, 08/18/20 15:29:00 EST, Height Start [...] 08/04/19 17:54:00 EST, Route to Pharmacy Electronically, [facility]/pharmacy #5, 161, cm, 08/04/19 14:44:00 EST, Height Start Date: 08/04/19 Stop Date: 08/18/19 Status: Ordered traMADol 50 mg oral tablet 2 tablet = 100 mg, By Mouth, Every 12 hours, for 30 days, as needed for pain masspat checked, # 120tablet, 2 Refills, Hard Stop 11/15/20 16:20:00 EDT, 08/17/20 16:20:00 EST, [facility]/pharmacy #5, 161,cm, 06/08/20 13:48:00 EST, Height Start Date: 08/17/20 Stop Date: 11/15/20 Status: Ordered traMADol 50 mg oral tablet 2 tablet = 100 mg, By Mouth, Every 12 hours, as needed for pain masspat checked, # 120 tablet, 2 Refills, Maintenance, 09/13/20 16:54:00 EST, [facility]/pharmacy #5, 161, cm, 08/18/20 15:29:00 EST, Height Start Date: 09/13/20 Stop Date: 12/12/20 Status: Ordered zolpidem 10 mg oral tablet 1 tablet = 10 mg, By Mouth, Daily at bedtime, PRN for sleep, for 30 days, masspat check may fill less, # 30 tablet, 3 Refills, Acute 01/14/21 9:22:00 EDT, 09/16/20 9:22:00 EST, Tablet, [facility]/pharmacy #5, 161, cm, 08/18/20 15:29:00 EST, Height Start Date: 09/16/20 Stop Date: 01/14/21 Status: Ordered zolpidem 10 mg oral tablet 1 tablet = 10 mg, By Mouth, Daily at bedtime, PRN for sleep, for 30 days, masspat check may fill less, # 30 tablet, 3 Refills, Acute 01/08/21 9:34:00 EDT, 09/10/20 9:34:00 EST, Tablet, [facility]/pharmacy #5, 161, cm, 08/18/20 15:29:00 [...]
--- OUTSIDE RECORDS SUMMARY | 2024-06-24 14:19 | XMS_ITS | Continuity of Care Document ---
Author Organization [facility] Address [address] [place] [address]- Care Team Providers Care Draftsperson Name Role Phone Celestina Trinidad MD Primary Care Physician Encounter [facility] [place] Date(s): 06/01/23 - 06/08/23 [facility] [address] [place] [address]- Encounter Diagnosis COVID-19(Discharge Diagnosis) - 06/01/23 Severe obesity(Discharge Diagnosis) - 06/01/23 Moderate persistent asthma(Discharge Diagnosis) - 06/01/23 Attending Physician: Not on Staff, Attending MD Referring Physician: Celestina Trinidad MD Allergies, Adverse Reactions, Alerts No Known Allergies Immunizations Given and Recorded Vaccine Date Status Refusal Reason tetanus/diphtheria/pertussis, acel(Tdap) 1 08/21/22 Given tetanus/diphtheria/pertussis, acel(Tdap) 2 08/13/12 Given [id number] 12y+ bivalent booster vax 06/14/22 Recorded influenza [...] inactivated 6 07/31/12 Gi hali SARS-CoV-2 mRNA (zlxrfiu-hqbx-fhjew) vax 02/14/22 Recorded SARS-CoV-2 (COVID-19) mRNA BNT-162b2 vac 05/06/21 Given SARS-CoV-2 (COVID-19) mRNA BNT-162b2 vac 11/04/20 Recorded SARS-CoV-2 (COVID-19) mRNA BNT-162b2 vac 10/14/20 Recorded pneumococcal 23-valent vaccine 7 04/07/19 Given 1Result Comment: [facility]# [id number] 2Admin Note: VIM dated 08/22/11 GIVEN TODAY 3Result Comment: [facility]# [id number] 4Result Comment: [05/25/2018] [facility] lot number [id number] exp 01/26/2019 [facility] [id number] 5Result Comment: [08/20/2017] [facility] [id number] 6Admin Note: VIM dated 01/29/12 GIVEN TODAY 7Result Comment: [facility]#[id number] Medications acetaminophen 500 mg oral capsule 2 [...] Stop, 04/10/2215:14:00 EDT, Route to Pharmacy Electronically, [id number], [facility]/pharmacy #2025, 158, cm, 04/10/22 14:56:00 EDT, Height, [...] Route to Pharmacy Electronically, [facility]/pharmacy #2025, Partial fill upon patient request if the presc... Start Date: 05/17/23 Stop Date: 05/17/24 Status: Ordered diclofenac 1% topical gel See Instructions, APPLY TOPICALLY 4 TIMES A DAY, # 100 Gm, 1 Refills, Maintenance, 06/05/23 10:25:00 EST, [facility]/pharmacy #2024, 50, APPLY TOPICALLY 4 TIMES A DAY, 157.5, cm, 05/22/23 7:39:00 EDT, Height, 145.9, kg, 05/22/23 7:39:00 EDT, Dry Weight Start Date: 06/05/23 Status: Ordered Flonase 50 mcg/inh nasal spray See Instructions, 2 sprays Nares twice daily x 1 week, then once daily x 1-2 weeks until symptoms improve, # 16 Gm, 0 Refills, Maintenance, 02/28/21 16:31:00 EDT, [place], [facility]/pharmacy #2024, Partial fill upon patient request if the prescription is for... Start Date: 02/28/21 Status: Ordered FLUoxetine 10 mg oral capsule 10 mg, 1, capsule, By Mouth, Daily, to be taken with 20mg capsules to equal 30mg daily, # 90 capsule, Refills 1, Tot. Refills 1, Maintenance, 04/03/23 11:25:00 EDT, Route to Pharmacy Electronically, [facility]/pharmacy #2024, Partial fill upon patient reques... Start Date: 04/03/23 Status: Ordered FLUoxetine 20 mg oral capsule 1, capsule, By Mouth, Daily, # 90 capsule, Refills 1, Tot. Refills 1, Maintenance, 04/03/23 11:23:00 EDT, Route to Pharmacy Electronically, [facility]/pharmacy #2024, 157, cm, 03/14/23 11:02:00 EDT, Height,145, kg, 08/29/22 20:13:00 EST, Dry Weight Start Date: 04/03/23 Status: Ordered gabapentin 300 mg oral capsule 600 mg, 2, capsule, By Mouth, 3 times a day, # 180 capsule, Refills 3, Tot. Refills 3, Maintenance,08/25/22 22:35:00 EST, Route to Pharmacy Electronically, [facility]/pharmacy #2024, Partial fill upon patient request if [...] 2 Refills, Maintenance, 02/27/23 7:25:00 EDT, [facility] STORE 0[facility]73, 157, cm, 12/08/22 14:27:00 EDT, Height, 145, [...] 16:30:00 EST, [place], Route to Pharmacy Electronically, [id number], [facility]/pharmacy #2024, 157.5, cm, 05/22/23 7:39:00 EDT, Height... Start Date: 06/07/23 Status: Ordered traMADol 50 mg oral tablet See Instructions, 2 tab po qam and one tab po q pm prn moderate to severe pain. 28 days. mass pat ok, # 81 tablet, 0 Refills, Maintenance, 05/14/23 16:14:00 EDT, [facility]/pharmacy #2024, 157, cm, 03/14/2311:02:00 EDT, Height, 145, kg, 08/29/22 20:13:00 E... Start Date: 05/14/23 Status: Ordered zolpidem 10 mg oral tablet 1 tablet = 10 mg, By Mouth, Daily at bedtime, PRN for sleep, for 30 days, # 30 tablet, 0 Refills, Acute 06/10/23 12:40:00 EST, 05/11/23 12:40:00 EDT, Tablet, [facility]/pharmacy #2024, early refill for travel. Thanks., 157, [...] Mixed anxiety and depressive disorder 1 Confirmed 12/3/22 Active Moderate persistent asthma 2 Confirmed 07/01/22 [...] Combivent in place of an oral Ellipta. Diagnosis Diagnosis Type Effective Dates Health Status Clinical Service Informant COVID-19 Discharge Diagnosis 06/01/23 Severe obesity Discharge Diagnosis 06/01/23 Moderate persistent asthma Discharge Diagnosis 06/01/23 Social History Social History Type Response Smoking [...] Code MRI Safety Implantable Status Assigning Authority [id number] Unknown [id number] Unknown 08/26/24 Unknown Unknown Active GS1 Patient Care team information Care Team Personnel Name: Celestina Trinidad MD Position: [facility] Physician - Primary Care Member Role: PCP Address: Address: [address] [place] [address] Name: Hemalatha Lucas RN [facility] [...] Nessa Bonilla RN Position: [facility] Fagot Heater Helper Member Role: Primary Care Nurse Care Team Related Persons Name: DINESH SARGENT Address: home [address] [place] [address] Name: BON DE Address: home [address] [place] [id number]
--- OUTSIDE RECORDS SUMMARY | 2024-06-24 14:19 | XMS_ITS | Continuity of Care Document ---
Author Organization [facility] Address [address] [place] [address] [address], [address] [place] [address]- Care Team Providers Care Intermodal Dispatcher Name Role Phone Florentino AHN, Elder Hannah Primary Care Physician [phone] [facility]counter [facility] Date(s): 09/30/20 - 10/30/20 [facility] [address] [place] [address], [address] [place] [address]- Allergies, Adverse Reactions, Alerts Substance Reaction Severity [...] Given 1Result Comment: [facility]# [id number] 2Result Comment: [05/25/2018] [facility] lot number [id number] exp 01/26/2019 [facility] [id number] 3Result Comment: [08/20/2017] [facility] [id number] 4Admin Note: VIM dated 01/29/12 GIVEN TODAY 5Result Comment: [facility]#[id number] 6Admin Note: VIM dated 08/22/11 GIVEN TODAY [...] 10/27/20 14:48:00 EDT, Route to Pharmacy Electronically, [id number], [facility]/pharmacy #2024, 160.02, cm, 10/19/20 11:04:00 EDT, Height, 156... Start Date: 10/27/20 Status: Ordered diclofenac 1% topical gel See Instructions, APPLY TOPICALLY 4 TIMES A DAY, # 100 Gm, 1 Refills, 10/27/20 12:37:00 EDT, [facility]/pharmacy #2024, 25, APPLY TOPICALLY 4 TIMES A DAY, 160.02, cm, 10/19/20 11:04:00 EDT, Height, 156.81, kg, 10/19/20 11:04:00 EDT, Dry Weight Start Date: 10/27/20 Status: Ordered FLUoxetine 20 mg oral capsule 20 mg, 1, capsule, By Mouth, Daily, # 30 capsule, Refills 5, Tot. Refills 5, Maintenance, 05/13/20 9:34:00 EDT, Route to Pharmacy Electronically, [facility]/pharmacy #2024, replacing 10mg dose, 161, cm, 05/13/20 8:28:00 EDT, Height Start Date: 05/13/20 Status: Ordered levothyroxine 0.137 mg oral tablet See Instructions, Take 1 tablet by mouth on days 1-6, then take 2 tablets by mouth on day 7, # 121 tablet, 5 Refills, Maintenance, 10/27/20 12:37:00 EDT, [facility]/pharmacy #2024, 160.02, cm, 10/19/20 11:04:00 EDT, Height, 156.81, kg, 10/19/20 11:04:00 EDT,... Start Date: 10/27/20 Status: Ordered meloxicam 15 mg oral tablet 1 tablet, By Mouth, Daily, WITH FOOD., # 30 tablet, 1 Refills, Maintenance, 10/24/20 10:06:00 EDT, [facility] STORE 88077, 160.02, cm, 10/19/20 11:04:00 EDT, Height, 156.81, [...] 08/04/19 17:54:00 EST, [facility], cm, 08/04/19 14:44:00 EST, Height Start Date: 08/04/19 Stop Date: 08/18/19 Status: Ordered traMADol 50 mg oral tablet 2 tablet = 100 mg, By Mouth, Every 12 hours, for 30 days, as needed for pain masspat checked, # 120tablet, 2 Refills, Hard Stop 11/15/20 16:20:00 EDT, 08/17/20 16:20:00 EST, [facility]/pharmacy #2025, 161,cm, 06/08/20 13:48:00 EST, Height Start Date: 08/17/20 Stop Date: 11/15/20 Status: Ordered traMADol 50 mg oral tablet 2 tablet = 100 mg, By Mouth, Every 12 hours, as needed for pain masspat checked, # 120 tablet, 2 Refills, Maintenance, 09/13/20 16:54:00 EST, [facility]/pharmacy #2025, 161, cm, 08/18/20 15:29:00 EST, Height [...]
--- OUTSIDE RECORDS SUMMARY | 2024-06-24 14:19 | XMS_ITS | Continuity of Care Document ---
Author Organization [facility] Address [address] [place] [address]- Care Team Providers Care Gettering Filament Machine Operator Name Role Phone Vivi HENNING, Celestina Givens Primary Care Physician [facility] Date[facility]s): 04/03/23 - 05/03/23 [facility] [address] [place] [address]- Allergies, Adverse Reactions, Alerts No Known Allergies Immunizations Given and Recorded Vaccine Date Status Refusal Reason tetanus/diphtheria/pertussis, acel(Tdap) 1 08/21/22 Given tetanus/diphtheria/pertussis, acel(Tdap) 2 08/13/12 Given [id number] 12y+ bivalent booster vax 06/14/22 Recorded influenza [...] inactivated 6 07/31/12 Gi hali SARS-CoV-2 mRNA (fdgfedu-mmes-jqvlu) vax 02/14/22 Recorded SARS-CoV-2 (COVID-19) mRNA BNT-162b2 vac 05/06/21 Given SARS-CoV-2 (COVID-19) mRNA BNT-162b2 vac 11/04/20 Recorded SARS-CoV-2 (COVID-19) mRNA BNT-162b2 vac 10/14/20 Recorded pneumococcal 23-valent vaccine 7 04/07/19 Given 1Result Comment: [facility]# [id number] 2Admin Note: VIM dated 08/22/11 GIVEN TODAY 3Result Comment: [facility]# [id number] 4Result Comment: [05/25/2018] [facility] lot number [id number] exp 01/26/2019 [facility] [id number] 5Result Comment: [08/20/2017] [facility] [id number] 6Admin Note: VIM dated 01/29/12 GIVEN TODAY 7Result Comment: [facility]#[id number] Medications acetaminophen 500 mg oral capsule 2 [...] Stop, 04/10/2215:14:00 EDT, Route to Pharmacy Electronically, [id number], [facility]/pharmacy #2025, 158, cm, 04/10/22 14:56:00 EDT, Height, [...] 1 Refills, Maintenance, 01/08/23 9:36:00EDT, [facility], 50, APPLY TOPICALLY 4 TIMES A DAY, [...] Gm, 0 Refills, Maintenance, 02/28/21 16:31:00 EDT, [place], [facility]/pharmacy #202, Partial fill upon patient request if the prescription is for... Start Date: 02/28/21 Status: Ordered FLUoxetine 10 mg oral capsule 10 mg, 1, capsule, By Mouth, Daily, to be taken with 20mg capsules to equal 30mg daily, # 90 capsule, Refills 1, Tot. Refills 1, Maintenance, 04/03/23 11:25:00 EDT, Route to Pharmacy Electronically, [facility]/pharmacy #2024, Partial fill upon patient reques... Start Date: 04/03/23 Status: Ordered FLUoxetine 20 mg oral capsule 1, capsule, By Mouth, Daily, # 90 capsule, Refills 1, Tot. Refills 1, Maintenance, 04/03/23 11:23:00 EDT, Route to Pharmacy Electronically, [facility]/pharmacy #2024, 157, cm, 03/14/23 11:02:00 EDT, Height,145, kg, 08/29/22 20:13:00 EST, Dry Weight Start Date: 04/03/23 Status: Ordered gabapentin 300 mg oral capsule 600 mg, 2, capsule, By Mouth, 3 times a day, # 180 capsule, Refills 3, Tot. Refills 3, Maintenance,08/25/22 22:35:00 EST, Route to Pharmacy Electronically, [facility]/pharmacy #2024, Partial fill upon patient request if [...] Refills, Maintenance, 02/27/23 7:25:00 EDT, [facility] STORE 36028, 157, cm, 12/08/22 14:27:00 EDT, Height, 145, kg, 08/29/22 20:13:00 EST, Dry... Start Date: 02/27/23 Status: Ordered meclizine 25 mg oral tablet See Instructions, PRN Dizziness, 1 tablet By Mouth 3 times a day, # 30 tablet, 0 Refills, Maintenance, 02/27/23 10:43:00 EDT, [facility]/pharmacy #2024, Partial fill upon patient request if the prescriptionis for a schedule II opioid drug., 157, cm, ... Start Date: 02/27/23 Status: Ordered meloxicam 15 mg oral tablet See Instructions, TAKE 1 TABLET BY MOUTH DAILY WITH FOOD. LABS NEEDED FOR FURTHER REFILLS, # 30 tablet, 1 Refills, Maintenance, 05/01/23 14:45:00 EDT, [facility]/pharmacy #2025, 157, cm, 03/14/23 11:02:00 EDT, Height, [...] tablet, 0 Refills, Maintenance, 02/20/23 17:17:00 EDT, [facility]/pharmacy #5, 157, cm, 12/08/2313:27:00 EDT, Height, 145, [...] Team Personnel Name: Celestina Trinidad MD Position: [facility] Physician - Primary Care Member Role: PCP Address: Address: [address] [place] [address] Name: Hemalatha Lucas RN Position: [facility] RN Member Role: Primary Care Nurse Name: Lauren Mack RN Position: [facility] AMB Nurse Member Role: Primary Care Nurse Name: Madelaine Ruiz RN Position: [facility] RN Member Role: Primary Care Nurse Name: Lora Santiago RN Position: [facility] SN RN Member Role: Primary Care Nurse Name: Mayco Ro RN Position: [facility] RN Member Role: Primary Care Nurse Name: Heydi Potts RN Position: [facility] RN Member Role: Primary Care Nurse Name: Janice Romano LPN Position: [facility] RN Member Role: Primary Care Nurse Name: Nadya Low RN Position: [facility] RN Member Role: Primary Care Nurse Name: Mirna Greenfield RN Position: [facility] RN Member Role: Primary Care Nurse Name: Nessa Bonilla RN Position: [facility] Hospital Bass String Winder Member Role: Primary Care Nurse Care Team Related Persons Name: ROSETTA DINESH Address: home [address] [place] [address] Name: BON DE Address: home [address] [place] [id number]
--- OUTSIDE RECORDS SUMMARY | 2024-06-24 14:19 | XMS_ITS | Continuity of Care Document ---
Author Organization [facility] Address [address] [place] [address]- Care Team Providers Care Ethernet Network Architect Name Role Phone Vivi HENNING, Celestina Givens Primary Care Physician Encounter [facility] Date(s): 09/11/23 - 10/11/23 [facility] [address] [place] [address]- Allergies, Adverse Reactions, Alerts No Known Allergies [...] 08/21/22 Given tetanus/diphtheria/pertussis, acel(Tdap) 7 08/13/12 Given [id number]-KmR-2jWAD 12y+ bivalent booster vax 06/14/22 Recorded SARS-CoV-2 mRNA (vmlqtpi-htrx-zyorq) vax 02/14/22 Recorded SARS-CoV-2 (COVID-19) mRNA BNT-162b2 vac 05/06/21 Given SARS-CoV-2 (COVID-19) mRNA BNT-162b2 vac 11/04/20 Recorded SARS-CoV-2 (COVID-19) mRNA BNT-162b2 vac 10/14/20 Recorded pneumococcal 23-valent vaccine 8 04/07/19 Given 1Result Comment: screening negative 2Result Comment: [facility]# [id number] 3Result Comment: [05/25/2018] [employer] lot number [id number] exp 01/26/2019 [facility] [id number] 4Result Comment: [08/20/2017] [facility] [id number] 5Admin Note: VIM dated 01/29/12 GIVEN TODAY 6Result Comment: [facility]# [id number] 7Admin Note: VIM dated 08/22/11 GIVEN TODAY 8Result Comment: [facility]#[id number] Medications acetaminophen 500 mg oral capsule 2 [...] Refills, Maintenance, 09/02/23 8:08:00 EST, [facility], 25, APPLY TO AFFECTED AREA 4 TIMES [...] Gm, 0 Refills, Maintenance, 02/28/21 16:31:00 EDT, [place], Partial fill upon patient request [...] 07/31/23 19:01:00 EST, Route to Pharmacy Electronically, [facility]/pharmacy #2024, 157.5, cm, 07/13/23 9:57:00 [...] tablet, 2 Refills, Maintenance, 02/27/23 7:25:00 EDT, [facility], 157, cm, 12/08/22 14:27:00 EDT, Height, 145, kg, 08/29/22 20:13:00 EST, Dry... Start Date: 02/27/23 Status: Ordered levothyroxine 150 mcg (0.15 mg) oral tablet 1 tablet = 150 mcg, By Mouth, Daily, # 90 tablet, 0 Refills, Maintenance, 07/15/23 17:38:00 EST, Tablet, [facility]/pharmacy #2024, Partial fill upon [...] tablet, 0 Refills, Maintenance, 10/08/23 17:51:00 EDT, [facility]/pharmacy #2024, Partial fill upon [...] Code MRI Safety Implantable Status Assigning Authority [id number] Unknown [id number] Unknown 08/26/24 Unknown Unknown Active GS1 Patient Care team information Care Team Personnel Name: Celestina Trinidad MD Position: [facility] Physician - Primary Care Member Role: PCP Address: Address: [address] [place] [address]- Name: Hemalatha Lucas RN Position: [facility] RN Member Role: Primary Care Nurse Name: Lauren Mack RN Position: [facility] AMB Nurse Member Role: Primary Care Nurse Name: Madelaine Ruiz RN Position: [facility] RN Member Role: Primary Care Nurse Name: Lora Santiago RN Position: [facility] SN RN Member Role: Primary Care Nurse Name: Mayco Ro RN Position: [facility] RN Member Role: Primary Care Nurse Name: Heydi Potts RN Position: [facility] SN RN Member Role: Primary Care Nurse Name: Janice Romano LPN Position: [facility] RN Member Role: Primary Care Nurse Name: Nadya Low RN Position: [facility] RN Member Role: Primary Care Nurse Name: Mirna Greenfield RN Position: [facility] RN Member Role: Primary Care Nurse Name: Nessa Bonilla RN Position: [facility] Acquisition Marketing Manager Member Role: Primary Care Nurse Care Team Related Persons Name: DINESH SARGENT Address: home [address] [place] [address] Name: BON DE Address: home [address] [place] [address]
--- OUTSIDE RECORDS SUMMARY | 2024-06-24 14:19 | XMS_ITS | Continuity of Care Document ---
Author Organization [facility] Address [address] [place] [address]- Care Team Providers Care Department Manager Name Role Phone Vivi HENNING, Celestina Givens Primary Care Physician Encounter [facility] Date(s): 01/21/24 - 02/20/24 [facility] [address] [place] [address]- Allergies, Adverse Reactions, Alerts No Known Allergies [...] 08/21/22 Given tetanus/diphtheria/pertussis, acel(Tdap) 7 08/13/12 Given RCUZ-SbT-0rZXB 12y+ bivalent booster vax 06/14/22 Recorded SARS-CoV-2 mRNA (grumbhf-gudj-vrnfg) vax 02/14/22 Recorded SARS-CoV-2 (COVID-19) mRNA BNT-162b2 vac 05/06/21 Given SARS-CoV-2 (COVID-19) mRNA BNT-162b2 vac 11/04/20 Recorded SARS-CoV-2 (COVID-19) mRNA BNT-162b2 vac 10/14/20 Recorded pneumococcal 23-valent vaccine 8 04/07/19 Given 1Result Comment: screening negative 2Result Comment: [facility]# [id number] 3Result Comment: [05/25/2018] [employer] lot number [id number] exp 01/26/2019 [facility] [id number] 4Result Comment: [08/20/2017] [facility] [id number] 5Admin Note: VIM dated 01/29/12 GIVEN TODAY 6Result Comment: [facility]# [id number] 7Admin Note: VIM dated 08/22/11 GIVEN TODAY 8Result Comment: [facility]#[id number] Medications acetaminophen 500 mg oral capsule 2 [...] Soft Stop, 12/06/23 17:28:00 EDT, [facility]/pharmacy #5, Partial fill upon patient [...] Pharmacy Electronically, [facility]/pharmacy #2024, Partial fill upon patient request if the presc... Start Date: 05/17/23 Stop Date: 05/17/24 Status: Ordered diclofenac 1% topical gel See Instructions, APPLY TO AFFECTED AREA 4 TIMES A DAY, # 100 Gm, 1 Refills, Maintenance, 11/07/23 7:48:00 EDT, [facility]/pharmacy #2024, 25, APPLY TO AFFECTED AREA 4 TIMES A DAY, 157.5, cm, 10/18/23 15:15:00 EDT, Height, 145.9, kg, 05/22/23 7:39:00 EDT, . Start Date: 11/07/23 Status: Ordered diclofenac 1% topical gel See Instructions, APPLY TO AFFECTED AREA 4 TIMES A DAY. NOT COVERED, # 100 Gm, 1 Refills, Maintenance, 02/01/24 13:44:00 EDT, [facility], 30, APPLY TO AFFECTED AREA 4 TIMES [...] Gm, 0 Refills, Maintenance, 02/28/21 16:31:00 EDT, [place], [facility]/pharmacy #2025, Partial fill upon patient request if the prescription is for... Start Date: 02/28/21 Status: Ordered FLUoxetine 10 mg oral capsule 1, capsule, By Mouth, Daily, INSTR:TO BE TAKEN WITH 20MG CAPSULES TO EQUAL 30MG DAILY, # 90 capsule, Refills 1, Maintenance, 01/25/24 9:11:00 EDT, Route to Pharmacy Electronically, [facility], 157.5, cm, 01/22/24 10:31:00 EDT, Height, 145.9, kg,... Start Date: 01/25/24 Status: Ordered gabapentin 300 mg oral capsule 600 mg, 2, capsule, By Mouth, 3 times a day, # 180 capsule, Refills 3, Tot. Refills 3, Maintenance,08/25/22 22:35:00 EST, Route to Pharmacy Electronically, [facility]/pharmacy #2024, Partial fill upon patient [...] Refills, Maintenance, 12/28/23 16:17:00 EDT, [facility], 157.5, cm, 10/18/23 15:15:00 EDT, Height, 145.9, kg, 05/22/23 7:39:00 EDT, Dry Weight Start Date: 12/28/23 Status: Ordered meclizine 25 mg oral tablet See Instructions, PRN Dizziness, 1 tablet By Mouth 3 times a day, # 30 tablet, 0 Refills, Maintenance, 02/27/23 10:43:00 EDT, [facility]/pharmacy #2025, Partial fill upon patient [...] tablet, 0 Refills, Maintenance, 11/29/23 15:24:00 EDT, [facility]/pharmacy #2025, 157.5, cm, 10/18/23 1... Start Date: [...] Code MRI Safety Implantable Status Assigning Authority [id number] Unknown [id number] Unknown 08/26/24 Unknown Unknown Active GS1 Patient Care team information Care Team Personnel Name: Celestina Trinidad MD Position: [facility] Physician - Primary Care Member Role: PCP Address: Address: [address] [place] [address] Name: Hemalatha Lucas RN [facility] Bonilla RN Position: [facility] Hospital Work From Home Member Role: Primary Care Nurse Care Team Related Persons Name: DINESH SARGENT Address: [address] [address] Name: BON DE Address: home [address] [place] [address]
--- OUTSIDE RECORDS SUMMARY | 2024-06-24 14:19 | XMS_ITS | Continuity of Care Document ---
Author Organization [facility] Address [address] [place] [address]- Care Team Providers Care Mailing Machine Assistant Name Role Phone Vivi HENNING, Celestina Givens Primary Care Physician Encounter [facility] Date(s): 04/12/23 - 05/12/23 [facility] [address] [place] [address]- Allergies, Adverse Reactions, Alerts No Known Allergies Immunizations Given and Recorded Vaccine Date Status Refusal Reason tetanus/diphtheria/pertussis, acel(Tdap) 1 08/21/22 Given tetanus/diphtheria/pertussis, acel(Tdap) 2 08/13/12 Given [id number] 12y+ bivalent booster vax 06/14/22 Recorded influenza [...] inactivated 6 07/31/12 Gi hali SARS-CoV-2 mRNA (semiekn-pcnt-uqbvp) vax 02/14/22 Recorded SARS-CoV-2 (COVID-19) mRNA BNT-162b2 vac 05/06/21 Given SARS-CoV-2 (COVID-19) mRNA BNT-162b2 vac 11/04/20 Recorded SARS-CoV-2 (COVID-19) mRNA BNT-162b2 vac 10/14/20 Recorded pneumococcal 23-valent vaccine 7 04/07/19 Given 1Result Comment: [facility]# [id number] 2Admin Note: VIM dated 08/22/11 GIVEN TODAY 3Result Comment: [facility]# [id number] 4Result Comment: [05/25/2018] [employer] lot number [id number] exp 01/26/2019 [facility] [id number] 5Result Comment: [08/20/2017] [facility] [id number] 6Admin Note: VIM dated 01/29/12 GIVEN TODAY 7Result Comment: [facility]#[id number] Medications acetaminophen 500 mg oral capsule 2 [...] Stop, 04/10/2215:14:00 EDT, Route to Pharmacy Electronically, [id number], [facility]/pharmacy #2025, 158, cm, 04/10/22 14:56:00 [...] 1 Refills, Maintenance, 01/08/23 9:36:00EDT, [facility], 50, APPLY TOPICALLY 4 TIMES A DAY, [...] Gm, 0 Refills, Maintenance, 02/28/21 16:31:00 EDT, [place], [facility]/pharmacy #2024, Partial fill upon patient request if the prescription is for... Start Date: 02/28/21 Status: Ordered FLUoxetine 10 mg oral capsule 10 mg, 1, capsule, By Mouth, Daily, to be taken with 20mg capsules to equal 30mg daily, # 90 capsule, Refills 1, Tot. Refills 1, Maintenance, 04/03/23 11:25:00 EDT, Route to Pharmacy Electronically, [facility]/pharmacy #2024, Partial fill upon patient reques... Start Date: 04/03/23 Status: Ordered FLUoxetine 20 mg oral capsule 1, capsule, By Mouth, Daily, # 90 capsule, Refills 1, Tot. Refills 1, Maintenance, 04/03/23 11:23:00 EDT, Route to Pharmacy Electronically, [facility]/pharmacy #2024, 157, cm, 03/14/23 11:02:00 EDT, Height,145, kg, 08/29/22 20:13:00 EST, Dry Weight Start Date: 04/03/23 Status: Ordered gabapentin 300 mg oral capsule 600 mg, 2, capsule, By Mouth, 3 times a day, # 180 capsule, Refills 3, Tot. Refills 3, Maintenance,08/25/22 22:35:00 EST, Route to Pharmacy Electronically, [facility]/pharmacy #2024, Partial fill upon patient [...] tablet, 2 Refills, Maintenance, 02/27/23 7:25:00 EDT, [facility]ORE 387[facility], 157, cm, 12/08/22 14:27:00 EDT, Height, 145, [...] 12:40:00 EST, 05/11/23 12:40:00 EDT, [place], [facility] early refill for travel. Thanks., 157, [...] Care Member Role: PCP Address: Address: [address] [place] [address] Name: Hemalatha Lucas RN Position: [facility] RN Member Role: Primary Care Nurse Name: Lauren Mack RN Position: [facility] AMB Nurse Member Role: Primary Care Nurse Name: Madelaine Ruiz RN Position: [facility] RN Member Role: Primary Care Nurse Name: Lora Santiago RN Position: [facility] SN RN Member Role: Primary Care Nurse Name: Mayco Ro RN Position: [facility] RN Member Role: Primary Care Nurse Name: Heydi Potts RN Position: [facility] RN Member Role: Primary Care Nurse Name: Janice Romano LPN Position: [facility] RN Member Role: Primary Care Nurse Name: Nadya Low RN Position: [facility] RN Member Role: Primary Care Nurse Name: Mirna Greenfield RN Position: [facility] RN Member Role: Primary Care Nurse Name: Nessa Bonilla RN Position: [facility] Hospital Power Distributor Member Role: Primary Care Nurse Care Team Related Persons Name: ROSETTADINESH Address: home [address] [place] [address] Name: BON DE Address: home [address] [place] [id number]
--- OUTSIDE RECORDS SUMMARY | 2024-06-24 14:19 | XMS_ITS | Continuity of Care Document ---
Author Organization [facility] Address [address] [place] [address]- Care Team Providers Care Mcat Tutor Name Role Phone Vivi HENNING, Celestina Givens Primary Care Physician Encounter [facility] Date(s): 09/05/22 - 10/05/22 [facility] [address] [place] [address]- Attending Physician: Calixto Beltran Admitting Physician: Calixto Beltran Referring Physician: AdmtrCalixto Allergies, Adverse Reactions, Alerts No Known Allergies Immunizations Given and Recorded Vaccine Date Status Refusal Reason tetanus/diphtheria/pertussis, acel(Tdap) 1 08/21/22 Given tetanus/diphtheria/pertussis, acel(Tdap) 2 08/13/12 Given JWSL-KtX-2lFAA 12y+ bivalent booster vax 06/14/22 Recorded influenza [...] inactivated 6 07/31/12 Gi hali SARS-CoV-2 mRNA (wktoinn-ytgq-zuzci) vax 02/14/22 Recorded SARS-CoV-2 (COVID-19) mRNA BNT-162b2 vac 05/06/21 Given SARS-CoV-2 (COVID-19) mRNA BNT-162b2 vac 11/04/20 Recorded SARS-CoV-2 (COVID-19) mRNA BNT-162b2 vac 10/14/20 Recorded pneumococcal 23-valent vaccine 7 04/07/19 Given 1Result Comment: [facility]# [id number] 2Admin Note: VIM dated 08/22/11 GIVEN TODAY 3Result Comment: [facility]# [id number] 4Result Comment: [05/25/2018] [employer] lot number [id number] exp 01/26/2019 [facility] [id number] 5Result Comment: [08/20/2017] [facility] [id number] 6Admin Note: VIM dated 01/29/12 GIVEN TODAY 7Result Comment: [facility]#[id number] Medications acetaminophen 500 mg oral capsule 2 [...] Stop, 04/10/2215:14:00 EDT, Route to Pharmacy Electronically, [id number], [facility]/pharmacy #2025, 158, cm, 04/10/22 14:56:00 EDT, Height, 143,... Start Date: 04/10/22 Status: Ordered amLODIPine 5 mg oral tablet 1 tablet, By Mouth, Daily, # 30 tablet, 5 Refills, Maintenance, 08/24/22 20:08:00 EST, [facility], 159, cm, 08/21/22 11:38:00 EST, Height, 143, kg, 01/04/21 10:42:00 EDT, Dry Weight Start Date: 08/24/22 Status: Ordered Augmentin 875 mg-125 mg oral tablet 1 tablet, By Mouth, Every 12 hours, for 6 week(s), # 84 tablet, 0 Refills, Acute 10/12/22 13:28:00 EDT, 08/31/22 13:28:00 EST, Tablet, [facility]/pharmacy #2024, Partial fill upon patient [...] 11:06:00 EST, Aerosol, Route to Pharmacy Electronically, [id number]... Start Date: 09/12/22 Status: Ordered cilostazol 50 mg oral tablet 1 tablet = 50 mg, By Mouth, Daily, # 180 tablet, 0 Refills, Maintenance, 09/02/22 10:35:00 EST, Tablet, [facility]/pharmacy #2024, Partial fill upon patient [...] 100 Gm, 1 Refills, 09/22/22 7:28:00 EST, [facility]/pharmacy #2024, 25, APPLY TOPICALLY 4 [...] 08/31/22 13:30:00 EST, Route to Pharmacy Electronically, [facility]/pharmacy #2024, Partial fill upon patient request if the p... Start Date: 08/31/22 Status: Ordered Flonase 50 mcg/inh nasal spray See Instructions, 2 sprays Nares twice daily x 1 week, then once daily x 1-2 weeks until symptoms improve, # 16 Gm, 0 Refills, Maintenance, 02/28/21 16:31:00 EDT, [place], [facility]/pharmacy #2024, Partial fill upon patient request if the prescription is for... Start Date: 02/28/21 Status: Ordered fluconazole 200 mg oral tablet 2 tablet = 400 mg, By Mouth, Daily, for 6 week(s), # 84 tablet, 0 Refills, Acute 10/12/22 13:28:00 EDT, 08/31/22 13:28:00 EST, Tablet, [facility]/pharmacy #2024, Partial fill upon patient request if the prescription is for a schedule II opioid drug., 157, cm... Start Date: 08/31/22 Stop Date: 10/12/22 Status: Ordered FLUoxetine 20 mg oral capsule See Instructions, TAKE 1 CAPSULE BY MOUTH EVERY DAY, # 90 capsule, Refills 1, Maintenance, 06/13/2215:26:00 EST, Instructions Replace Required Details, Route to Pharmacy Electronically, [facility] STORE 12999, 158, cm, 06/09/22 11:21:00 EST, Height, 143, kg... Start Date: 06/13/22 Status: Ordered furosemide 20 mg oral tablet 1, tablet, By Mouth, Daily, MAY REPEAT IF NEEDED IN 2 HOURS, # 30 tablet, Refills 0, Maintenance, 09/26/22 15:09:00 EST, Route to Pharmacy Electronically, [facility] STORE 68942, 157, cm, 09/13/22 15:58:00 EST, Height, 145, kg, 08/29/22 20:13:00 EST, Dry Weight Start Date: 09/26/22 Status: Ordered gabapentin 300 mg oral capsule 600 mg, 2, capsule, By Mouth, 3 times a day, # 180 capsule, Refills 3, Tot. Refills 3, Maintenance,08/25/22 22:35:00 EST, Route to Pharmacy Electronically, [facility]/pharmacy #2024, Partial fill upon patient request if the prescription is for a schedule II... Start Date: 08/25/22 Status: Ordered levothyroxine 0.137 mg oral tablet 1 tablet = 137 mcg, By Mouth, Daily, 1 tab on days 1-6, take 2 tabs on day 7, # 102 tablet, 1 Refills, Maintenance, 07/03/22 14:41:00 EST, Tablet, [facility]/pharmacy #2024, Partial fill upon patient request if the prescription is for a schedule II opioid dr... Start Date: 07/03/22 Status: Ordered meclizine 25 mg oral tablet See Instructions, PRN Dizziness, 1 tablet By Mouth 3 times a day, # 30 tablet, 0 Refills, Maintenance, 05/11/21 13:11:00 EDT, [facility]/pharmacy #2024, Partial fill upon patient request if the prescriptionis for a schedule II opioid drug., 160.02, cm, 10/0... Start Date: 05/11/21 Status: Ordered meloxicam 15 mg oral tablet See Instructions, TAKE 1 TABLET BY MOUTH DAILY WITH FOOD. LABS NEEDED FOR FURTHER REFILLS, # 30 tablet, 3 Refills, Maintenance, 07/17/22 19:56:00 EST, [facility]/pharmacy #2024, 158, cm, 07/13/22 13:46:00 [...] 09/05/22 16:29:00 EST, Route to Pharmacy Electronically, [facility]/pharmacy #2024, Partialfill upon patient request if the prescription is fo... Start Date: 09/05/22 Stop Date: 09/12/22 Status: Ordered traMADol 50 mg oral tablet See Instructions, 2 tab po qam and one tab po q pm prn moderate to severe pain. 28 days. mass pat ok, # 81 tablet, 0 Refills, Maintenance, 09/21/22 16:44:00 EST, [facility]/pharmacy #2024, 157, cm, 09/13/2314:58:00 EST, Height, 145, kg, 08/29/22 20:13:00 E... Start Date: 09/21/22 Status: Ordered zolpidem 10 mg oral tablet 1 tablet = 10 mg, By Mouth, Daily at bedtime, PRN for sleep, for 30 days, masspat check may fill less, # 30 tablet, 0 Refills, Acute 11/01/22 17:14:00 EDT, 10/02/22 17:14:00 EST, Tablet, [facility]/pharmacy#2024, 157, cm, 09/13/22 15:58:00 EST, Height, 145... Start Date: 10/02/22 Stop Date: 11/01/22 Status: Ordered zolpidem 10 mg oral tablet 1 tablet = 10 mg, By Mouth, Daily at bedtime, PRN for sleep, for 30 days, masspat check may fill less, # 30 tablet, 0 Refills, Acute 11/20/22 16:47:00 EDT, 10/21/22 16:47:00 EDT, Tablet, [facility]/pharmacy#2024, 157, cm, 09/13/22 15:58:00 EST, Height, 145... Start Date: 10/21/22 Stop Date: 4/24/23 Status: Ordered Problem List Condition Confirmation Course [...] EKG Authored Date: Note * Event Display: Laboratory Result Scanned Authored [...] Non BH Radiology Results Authored Date: * Yesenia Kwon: PERFORM, SIGN, VERIFY Event Display: Patient Education/Instruction Authored Date: [facility] PV Family Clinical Summary Person [...] primary care provider, you may find a [facility] provider by calling [facility] [employer] at [phone]. Patient Education Information Follow-up Details: Patient Education Material: Please follow instructions discussed with your provider during this visit as well as any education documents you were given today. * Ada Odell: PERFORM Event Display: Radiology Results Scanned Authored Date: [id number] * Fernando Jamison: PERFORM Event Display: Radiology Results Scanned Authored Date: [id number] Deprecated MR Spine study * Event Display: MRI Spine Authored Date: Patient Care team information Care Team Personnel Name: Celestina Trinidad MD Position: [facility] Primary Care Physician Member Role: PCP Address: Address: [address] [place] [id number] Name: Hemalatha Lucas RN Position: [facility] [...] Bonilla RN Position: [facility] Recyclable Materials Collector Member Role: Primary Care Nurse Care Team Related Persons Name: DINESH SARGENT Address: home [address] [place] [address] Name: BON DE Address: home [address] [place] [id number]
--- OUTSIDE RECORDS SUMMARY | 2024-06-24 14:19 | XMS_ITS | Continuity of Care Document ---
Author Organization [facility] Address [address] [place] [address]- Care Team Providers Care Employee Development Director Name Role Phone Vivi HENNING, Celestina Givens Primary Care Physician [facility]23 - 07/03/23 [facility] [address] [place] [address]- Allergies, Adverse Reactions, Alerts No Known Allergies Immunizations Given and Recorded Vaccine Date Status Refusal Reason tetanus/diphtheria/pertussis, acel(Tdap) 1 08/21/22 Given tetanus/diphtheria/pertussis, acel(Tdap) 2 08/13/12 Given [id number]-[id number] 12y+ bivalent booster vax 06/14/22 Recorded influenza [...] inactivated 6 07/31/12 Gi hali SARS-CoV-2 mRNA (zvlkamk-zkog-bkrwo) vax 02/14/22 Recorded SARS-CoV-2 (COVID-19) mRNA BNT-162b2 vac 05/06/21 Given SARS-CoV-2 (COVID-19) mRNA BNT-162b2 vac 11/04/20 Recorded SARS-CoV-2 (COVID-19) mRNA BNT-162b2 vac 10/14/20 Recorded pneumococcal 23-valent vaccine 7 04/07/19 Given 1Result Comment: [facility]# [id number] 2Admin Note: VIM dated 08/22/11 GIVEN TODAY 3Result Comment: [facility]# [id number] 4Result Comment: [05/25/2018] [employer] lot number [id number] exp 01/26/2019 [facility] [id number] 5Result Comment: [08/20/2017] [facility] 92180-955-85 6Admin Note: VIM dated 01/29/12 GIVEN TODAY 7Result Comment: [facility]#[id number] Medications acetaminophen 500 mg oral capsule 2 [...] Stop, 04/10/2215:14:00 EDT, Route to Pharmacy Electronically, [id number], [facility]/pharmacy #2025, 158, cm, [...] Gm, 1 Refills, Maintenance, 06/05/23 10:25:00 EST, [facility]/pharmacy #2024, 50, APPLY TOPICALLY 4 TIMES A DAY, 157.5, cm, 05/22/23 7:39:00 EDT, Height, 145.9, kg, 05/22/23 7:39:00 EDT, Dry Weight Start Date: 06/05/23 Status: Ordered Flonase 50 mcg/inh nasal spray See Instructions, 2 sprays Nares twice daily x 1 week, then once daily x 1-2 weeks until symptoms improve, # 16 Gm, 0 Refills, Maintenance, 02/28/21 16:31:00 EDT, [place], [facility]/pharmacy #2024, Partial fill upon patient request if the prescription is for... Start Date: 02/28/21 Status: Ordered FLUoxetine 10 mg oral capsule 10 mg, 1, capsule, By Mouth, Daily, to be taken with 20mg capsules to equal 30mg daily, # 90 capsule, Refills 1, Tot. Refills 1, Maintenance, 04/03/23 11:25:00 EDT, Route to Pharmacy Electronically, [facility]/pharmacy #2024, Partial fill upon patient reques... Start Date: 04/03/23 Status: Ordered FLUoxetine 20 mg oral capsule 1, capsule, By Mouth, Daily, # 90 capsule, Refills 1, Tot. Refills 1, Maintenance, 04/03/23 11:23:00 EDT, Route to Pharmacy Electronically, [facility]/pharmacy #2024, 157, cm, 03/14/23 11:02:00 [...] tablet, 2 Refills, Maintenance, 02/27/23 7:25:00 EDT, [facility] STORE 81572, 157, cm, 12/08/22 14:27:00 EDT, Height, 145, [...] 16:30:00 EST, Aerosol, Route to Pharmacy Electronically, [id number], [facility]/pharmacy #2024, 157.5, cm, 05/22/23 7:39:00 EDT, Height... Start Date: 06/07/23 Status: Ordered traMADol 50 mg oral tablet See Instructions, 2 tab po qam and one tab po q pm prn moderate to severe pain. 28 days. mass pat ok, # 81 tablet, 0 Refills, Maintenance, 07/02/23 16:52:00 EST, [facility]/pharmacy #2024, 157.5, cm, 06/26/23 10:22:00 EST, Height, 145.9, kg, 05/22/23 7:39:0... Start Date: 07/02/23 Status: Ordered zolpidem 10 mg oral tablet 1 tablet = 10 mg, By Mouth, Daily at bedtime, PRN for sleep, for 30 days, # 30 tablet, 0 Refills, Acute 07/12/23 11:04:00 EST, 06/12/23 11:04:00 EST, Tablet, [facility]/pharmacy #2024, early refill for travel. [...] Code MRI Safety Implantable Status Assigning Authority [id number] Unknown [id number] Unknown 08/26/24 Unknown Unknown Active GS1 Patient Care team information Care Team Personnel Name: Celestina Trinidad MD Position: [facility] Physician - Primary Care Member Role: PCP Address: Address: [address] [place] [address] Name: Hemalatha Lucas RN Position: [facility] RN Member Role: Primary Care Nurse Name: Lauren Mack RN Position: [facility] AMB Nurse Member Role: Primary Care Nurse Name: Madelaine Ruiz RN Position: [facility] RN Member Role: Primary Care Nurse Name: Lora Santiago RN Position: [facility] SN RN Member Role: Primary Care Nurse Name: Mayco Ro RN Position: [facility] RN Member Role: Primary Care Nurse Name: Heydi Potts RN Position: [facility] RN Member Role: Primary Care Nurse Name: Janice Romano LPN Position: [facility] RN Member Role: Primary Care Nurse Name: Nadya Low RN Position: [facility] RN Member Role: Primary Care Nurse Name: Mirna Greenfield RN Position: [facility] RN Member Role: Primary Care Nurse Name: Nessa Bonilla RN Position: [facility] Hospital Fitter Helper Member Role: Primary Care Nurse Care Team Related Persons Name: ROSETTA DINESH Address: home [address] [place] [address] Name: BON DE Address: [address] [address]
--- OUTSIDE RECORDS SUMMARY | 2024-06-24 14:19 | XMS_ITS | Continuity of Care Document ---
Author Organization [facility] Address [address] [place] [address], [address] [place] [address]- Care Team Providers Care Health Information Clerk Name Role Phone Vivi HENNING, Celestina Givens Primary Care Physician [facility]counter [facility] Date(s): 08/28/23 - 09/27/[address], [address] [place] [address]- Allergies, Adverse Reactions, Alerts No Known Allergies [...] 08/21/22 Given tetanus/diphtheria/pertussis, acel(Tdap) 7 08/13/12 Given [id number]-HuS-[id number] 12y+ bivalent booster vax 06/14/22 Recorded SARS-CoV-2 mRNA (gjodtse-mdft-rikgd) vax 02/14/22 Recorded SARS-CoV-2 (COVID-19) mRNA BNT-162b2 vac 05/06/21 Given SARS-CoV-2 (COVID-19) mRNA BNT-162b2 vac 11/04/20 Recorded SARS-CoV-2 (COVID-19) mRNA BNT-162b2 vac 10/14/20 Recorded pneumococcal 23-valent vaccine 8 04/07/19 Given 1Result Comment: screening negative 2Result Comment: [facility]# [id number] 3Result Comment: [05/25/2018] [employer] lot number [id number] exp 01/26/2019 [facility] [id number] 4Result Comment: [08/20/2017] [facility] [id number] 5Admin Note: VIM dated 01/29/12 GIVEN TODAY 6Result Comment: [facility]# [id number] 7Admin Note: VIM dated 08/22/11 GIVEN TODAY 8Result Comment: [facility]#[id number] Medications acetaminophen 500 mg oral capsule 2 [...] 05/17/23 16:45:00 EDT, Route to Pharmacy Electronically, [facility]/pharmacy #2024, Partial fill upon patient request if the presc... Start Date: 05/17/23 Stop Date: 05/17/24 Status: Ordered diclofenac 1% topical gel See Instructions, APPLY TO AFFECTED AREA 4 TIMES A DAY, # 100 Gm, 1 Refills, Maintenance, 09/02/23 8:08:00 EST, [facility], 25, APPLY TO AFFECTED AREA 4 TIMES [...] 0 Refills, Maintenance, 02/28/21 16:31:00 EDT, [place], [facility]/pharmacy #2024, Partial fill upon patient request if the prescription is for... Start Date: 02/28/21 Status: Ordered FLUoxetine 10 mg oral capsule 10 mg, 1, capsule, By Mouth, Daily, to be taken with 20mg capsules to equal 30mg daily, # 90 capsule, Refills 1, Tot. Refills 1, Maintenance, 07/31/23 19:01:00 EST, Route to Pharmacy Electronically, [facility]/pharmacy #2024, Partial fill upon patient reques... Start Date: 07/31/23 Status: Ordered FLUoxetine 20 mg oral capsule 1, capsule, By Mouth, Daily, # 90 capsule, Refills 1, Tot. Refills 1, Maintenance, 07/31/23 19:01:00 EST, Route to Pharmacy Electronically, [facility]/pharmacy #2024, 157.5, cm, 07/13/23 9:57:00 EST, Height, 145.9, kg, 05/22/23 7:39:00 EDT, Dry Weight Start Date: 07/31/23 Status: Ordered gabapentin 300 mg oral capsule 600 mg, 2, capsule, By Mouth, 3 times a day, # 180 capsule, Refills 3, Tot. Refills 3, Maintenance,08/25/22 22:35:00 EST, [facility] fill upon patient request [...] tablet, 2 Refills, Maintenance, 02/27/23 7:25:00 EDT, [facility] STORE 97[facility], 157, cm, 12/08/22 14:27:00 EDT, Height, 145, kg, 08/29/22 20:13:00 EST, Dry... Start Date: 02/27/23 Status: Ordered levothyroxine 150 mcg (0.15 mg) oral tablet 1 tablet = 150 mcg, By Mouth, Daily, # 90 tablet, 0 Refills, Maintenance, 07/15/23 17:38:00 EST, Tablet, [facility]/pharmacy #2024, [...] REFILLS, # 30 tablet, 1 Refills, Maintenance, 09/14/23 13:42:00 EST, [facility], 157.5, cm, 07/13/23 9:57:00 EST, Height, 145.9, kg, 05/22/23 7:39:00 EDT, Dry We... Start Date: 09/14/23 Status: Ordered oxyCODONE 5 mg oral tablet [...] ok, # 81 tablet, 0 Refills, Maintenance, 09/11/23 12:45:00 EST, [facility], 157.5, cm, 07/13/23 9:57:00 EST, Height, 145.9, kg, 05/22/23 7:39:00... Start Date: 09/11/23 Status: Ordered Vitamin D3 2000 intl units [...] bedtime, # 30 tablet, 0 Refills, Maintenance, 09/11/23 12:45:00 EST, [facility], Partial fill upon patient request if the prescription is for a schedule II opioid drug., 157.5, cm, 07/13/23 9:57:00 EST, [place]... Start Date: 09/11/23 Status: Ordered Problem List Condition Confirmation Course [...] Code MRI Safety Implantable Status Assigning Authority [id number] Unknown [id number] Unknown 08/26/24 Unknown Unknown Active GS1 Patient Care team information Care Team Personnel Name: Celestina Trinidad MD Position: [facility] Physician - Primary Care Member Role: PCP Address: Address: [address] [place] [address]- Name: Hemalatha Lucas RN Position: [facility] RN Member Role: Primary Care Nurse Name: Lauren Mack RN Position: [facility] AMB Nurse Member Role: Primary Care Nurse Name: Madelaine Ruiz RN Position: [facility] RN Member Role: Primary Care Nurse Name: Lora Santiago RN Position: [facility] SN RN Member Role: Primary Care Nurse Name: Mayco Ro RN Position: [facility] RN Member Role: Primary Care Nurse Name: Heydi Potts RN Position: [facility] SN RN Member Role: Primary Care Nurse Name: Janice Romano LPN Position: [facility] RN Member Role: Primary Care Nurse Name: Nadya Low RN Position: [facility] RN Member Role: Primary Care Nurse Name: Mirna Greenfield RN Position: [facility] RN Member Role: Primary Care Nurse Name: Nessa Bonilla RN Position: [facility] [employer] Member Role: Primary Care Nurse Care Team Related Persons Name: DINESH SARGENT Address: home [address] [place] [address] Name: BON DE Address: home [address] [address]
--- OUTSIDE RECORDS SUMMARY | 2024-06-24 14:19 | XMS_ITS | Continuity of Care Document ---
Author Organization [facility] Address [address] [place] [address]- Care Team Providers Care Um Rn Name Role Phone Vivi HENNING, Celestina Givens Primary Care Physician Encounter [facility] Date(s): 08/16/22 - 09/15/[address] [address]- Allergies, Adverse Reactions, Alerts No Known Allergies Immunizations Given and Recorded Vaccine Date Status Refusal Reason tetanus/diphtheria/pertussis, acel(Tdap) 1 08/21/22 Given tetanus/diphtheria/pertussis, acel(Tdap) 2 08/13/12 Given [id number]-GwS-1mIEG 12y+ bivalent booster vax 06/14/22 Recorded influenza [...] inactivated 6 07/31/12 Gi hali SARS-CoV-2 mRNA (mtpkkfn-ktfw-ejlbh) vax 02/14/22 Recorded SARS-CoV-2 (COVID-19) mRNA BNT-162b2 vac 05/06/21 Given SARS-CoV-2 (COVID-19) mRNA BNT-162b2 vac 11/04/20 Recorded SARS-CoV-2 (COVID-19) mRNA BNT-162b2 vac 10/14/20 Recorded pneumococcal 23-valent vaccine 7 04/07/19 Given 1Result Comment: [facility]# [id number] 2Admin Note: VIM dated 08/22/11 GIVEN TODAY 3Result Comment: [facility]# [id number] 4Result Comment: [05/25/2018] [employer] lot number [id number] exp 01/26/2019 [facility] [id number] 5Result Comment: [08/20/2017] [facility] [id number] 6Admin Note: VIM dated 01/29/12 GIVEN TODAY 7Result Comment: [facility]#[id number] Medications acetaminophen 500 mg oral capsule 2 [...] Stop, 04/10/2215:14:00 EDT, Route to Pharmacy Electronically, [id number], [facility]/pharmacy #2025, 158, cm, 04/10/22 14:56:00 EDT, Height, 143,... Start Date: 04/10/22 Status: Ordered amLODIPine 5 mg oral tablet 1 tablet, By Mouth, Daily, # 30 tablet, 5 Refills, Maintenance, 08/24/22 20:08:00 EST, [facility], 159, cm, 08/21/22 11:38:00 EST, Height, 143, kg, 01/04/21 10:42:00 EDT, Dry Weight Start Date: 08/24/22 Status: Ordered Augmentin 875 mg-125 mg oral tablet 1 tablet, By Mouth, Every 12 hours, for 6 week(s), # 84 tablet, 0 Refills, Acute 10/12/22 13:28:00 EDT, 08/31/22 13:28:00 EST, Tablet, [facility]/pharmacy #2024, [...] 11:06:00 EST, Aerosol, Route to Pharmacy Electronically, [id number]... Start Date: 09/12/22 Status: Ordered cilostazol 50 mg oral tablet 1 tablet = 50 mg, By Mouth, Daily, # 180 tablet, 0 Refills, Maintenance, 09/02/22 10:35:00 EST, Tablet, [facility]/pharmacy #2024, [...] 100 Gm, 1 Refills, 09/19/21 12:51:00 EST, [facility]/pharmacy #202, 25, APPLY TOPICALLY [...] 08/31/22 13:30:00 EST, Route to Pharmacy Electronically, [facility]/pharmacy #202, Partial fill upon patient request if the p... Start Date: 08/31/22 Status: Ordered Flonase 50 mcg/inh nasal spray See Instructions, 2 sprays Nares twice daily x 1 week, then once daily x 1-2 weeks until symptoms improve, # 16 Gm, 0 Refills, Maintenance, 02/28/21 16:31:00 EDT, [place], [facility]/pharmacy #202, Partial fill upon patient request if the prescription is for... Start Date: 02/28/21 Status: Ordered fluconazole 200 mg oral tablet 2 tablet = 400 mg, By Mouth, Daily, for 6 week(s), # 84 tablet, 0 Refills, Acute 10/12/22 13:28:00 EDT, 08/31/22 13:28:00 EST, Tablet, [facility]/pharmacy #202, Partial fill upon patient request if the prescription is for a schedule II opioid drug., 157, cm... Start Date: 08/31/22 Stop Date: 10/12/22 Status: Ordered FLUoxetine 20 mg oral capsule See Instructions, TAKE 1 CAPSULE BY MOUTH EVERY DAY, # 90 capsule, Refills 1, Maintenance, 06/13/2215:26:00 EST, Instructions Replace Required Details, Route to Pharmacy Electronically, [facility] ST[facility], 158, cm, 06/09/22 11:21:00 EST, Height, 143, kg... Start Date: 06/13/22 Status: Ordered furosemide 20 mg oral tablet 1, tablet, By Mouth, Daily, MAY REPEAT IF NEEDED IN 2 HOURS, # 30 tablet, Refills 0, Maintenance, 09/07/22 12:45:00 EST, Route to Pharmacy Electronically, [facility] 44[facility], 157, cm, 09/05/22 15:49:00 EST, Height, 145, kg, 08/29/22 20:13:00 EST, Dry Weight Start Date: 09/07/22 Status: Ordered gabapentin 300 mg oral capsule 600 mg, 2, capsule, By Mouth, 3 times a day, # 180 capsule, Refills 3, Tot. Refills 3, Maintenance,08/25/22 22:35:00 EST, [facility] fill upon patient request if the prescription is for a schedule II... Start Date: 08/25/22 Status: Ordered levothyroxine 0.137 mg oral tablet 1 tablet = 137 mcg, By Mouth, Daily, 1 tab on days 1-6, take 2 tabs on day 7, # 102 tablet, 1 Refills, Maintenance, 07/03/22 14:41:00 EST, Tablet, [facility]/pharmacy #2024, Partial fill upon patient request if the prescription is for a schedule II opioid dr... Start Date: 07/03/22 Status: Ordered meclizine 25 mg oral tablet See Instructions, PRN Dizziness, 1 tablet By Mouth 3 times a day, # 30 tablet, 0 Refills, Maintenance, 05/11/21 13:11:00 EDT, [facility]/pharmacy #2024, Partial fill upon patient request if the prescriptionis for a schedule II opioid drug., 160.02, cm, 10/0... Start Date: 05/11/21 Status: Ordered meloxicam 15 mg oral tablet See Instructions, TAKE 1 TABLET BY MOUTH DAILY WITH FOOD. LABS NEEDED FOR FURTHER REFILLS, # 30 tablet, 3 Refills, Maintenance, 07/17/22 19:56:00 EST, [facility]/pharmacy #2024, 158, cm, 07/13/22 [...] 09/05/22 16:29:00 EST, Route to Pharmacy Electronically, [facility]/pharmacy #2024, Partialfill upon patient request if the prescription is fo... Start Date: 09/05/22 Stop Date: 09/12/22 Status: Ordered traMADol 50 mg oral tablet See Instructions, 2 tab po qam and one tab po q pm prn moderate to severe pain, # 81 tablet, 0 Refills, Maintenance, 07/11/22 17:21:00 EST, [facility]/pharmacy #2024, 158, cm, 07/07/22 11:19:00 EST, Height,143, [...] Celestina Trinidad MD Position: [facility] Primary Care Physician Member Role: PCP Address: Address: [address] [place] [id number] Name: Hemalatha Lucas RN Position: [facility] RN Member Role: Primary Care Nurse Name: Lauren Mack RN Position: [facility] MARY Nurse Member Role: Primary Care Nurse Name: Madelaine Ruiz RN Position: [facility] RN Member Role: Primary Care Nurse Name: Lora Santiago RN Position: [facility] RN Member [...] RN Position: [facility] Preliminary School Psychologist Member Role: Primary Care Nurse Care Team Related Persons Name: DINESH SARGENT Address: home [address] [place] [address] Name: BON DE Address: home [address] [address]
[2024-06-24 14:20] VITALS: BP 180/83; PULSE 81; RESP 19; O2SAT 96
--- OUTSIDE RECORDS SUMMARY | 2024-06-24 14:20 | XMS_ITS | Continuity of Care Document ---
Author Organization [facility] Address [address] [place] [address]- Care Team Providers Care Store Cashier Name Role Phone Vivi HENNING, Celestina Givens Primary Care Physician [facility] Date[facility]): 04[facility]23 - 05/02/23 [facility] [address] [place] [address]- Allergies, Adverse Reactions, Alerts No Known Allergies Immunizations Given and Recorded Vaccine Date Status Refusal Reason tetanus/diphtheria/pertussis, acel(Tdap) 1 08/21/22 Given tetanus/diphtheria/pertussis, acel(Tdap) 2 08/13/12 Given [id number]-BpS-[id number] 12y+ bivalent booster vax 06/14/22 Recorded influenza [...] inactivated 6 07/31/12 Gi hali SARS-CoV-2 mRNA (nfomulo-gqsk-jijww) vax 02/14/22 Recorded SARS-CoV-2 (COVID-19) mRNA BNT-162b2 vac 05/06/21 Given SARS-CoV-2 (COVID-19) mRNA BNT-162b2 vac 11/04/20 Recorded SARS-CoV-2 (COVID-19) mRNA BNT-162b2 vac 10/14/20 Recorded pneumococcal 23-valent vaccine 7 04/07/19 Given 1Result Comment: [facility]# [id number] 2Admin Note: VIM dated 08/22/11 GIVEN TODAY 3Result Comment: [facility]# [id number] 4Result Comment: [05/25/2018] [facility] lot number [id number] exp 01/26/2019 [facility] [id number] 5Result Comment: [08/20/2017] [facility] [id number] 6Admin Note: VIM dated 01/29/12 GIVEN TODAY 7Result Comment: [facility]#[id number] Medications acetaminophen 500 mg oral capsule 2 [...] Stop, 04/10/2215:14:00 EDT, Route to Pharmacy Electronically, [id number], [facility]/pharmacy #2025, 158, cm, 04/10/22 [...] 1 Refills, Maintenance, 01/08/23 9:36:00EDT, [facility], 50, APPLY TOPICALLY 4 TIMES A DAY, [...] Gm, 0 Refills, Maintenance, 02/28/21 16:31:00 EDT, [place], [facility]/pharmacy #2024, Partial fill upon patient request if the prescription is for... Start Date: 02/28/21 Status: Ordered FLUoxetine 10 mg oral capsule 10 mg, 1, capsule, By Mouth, Daily, to be taken with 20mg capsules to equal 30mg daily, # 90 capsule, Refills 1, Tot. Refills 1, Maintenance, 04/03/23 11:25:00 EDT, Route to Pharmacy Electronically, [facility]/pharmacy #2024, Partial fill upon patient reques... Start Date: 04/03/23 Status: Ordered FLUoxetine 20 mg oral capsule 1, capsule, By Mouth, Daily, # 90 capsule, Refills 1, Tot. Refills 1, Maintenance, 04/03/23 11:23:00 EDT, Route to Pharmacy Electronically, [facility]/pharmacy #2024, 157, cm, 03/14/23 11:02:00 EDT, [...] 2 Refills, Maintenance, 02/27/23 7:25:00 EDT, [facility] 7110[facility], 157, cm, 12/08/22 14:27:00 EDT, Height, 145, [...] tablet, 1 Refills, Maintenance, 05/01/23 14:45:00 EDT, [facility]/pharmacy #2025, 157, cm, 03/14/23 11:02:00 EDT, [...] tablet, 0 Refills, Maintenance, 02/20/23 17:17:00 EDT, [facility]/pharmacy #5, 157, cm, 12/08/2313:27:00 EDT, Height, 145, [...] MD Position: [facility] Physician - Primary Care Member Role: PCP Address: Address: [address] [place] [address] Name: Hemalatha Lucas RN Position: [facility] RN Member Role: Primary Care Nurse Name: Lauren Mack RN Position: [facility] AMB Nurse Member Role: Primary Care Nurse Name: Madelaine Ruiz RN Position: [facility] RN Member Role: Primary Care Nurse Name: Lora Santiago RN Position: [facility] SN RN Member Role: Primary Care Nurse Name: Mayco Ro RN Position: [facility] RN Member Role: Primary Care Nurse Name: Heydi Potts RN Position: [facility] RN Member Role: Primary Care Nurse Name: Janice Romano LPN Position: [facility] RN Member Role: Primary Care Nurse Name: Nadya Low RN Position: [facility] RN Member Role: Primary Care Nurse Name: Mirna Greenfield RN Position: [facility] RN Member Role: Primary Care Nurse Name: Nessa Bonilla RN Position: [facility] Hospital Professor Of Food Biochemistry Member Role: Primary Care Nurse Care Team Related Persons Name: DINESH SARGENT Address: [place] [address] Name: BON DE Address: home [address] [place] [address]
--- OUTSIDE RECORDS SUMMARY | 2024-06-24 14:20 | XMS_ITS | Continuity of Care Document ---
Author Organization [facility] Address [address] [place], [place] [address]ignacio durbin, [address] [place] [address]- Care Team Providers Care Bee Raiser Name Role Phone Celestina Trinidad MD Primary Care Physician [place] [facility] - 06/16/[address], [address] [place], [place] [address] Attending Physician: Admdavid, Calixto Admitting Physician: [id number] Referring Physician: Admtr, Ar8 Allergies, Adverse Reactions, [...] Given 1Result Comment: [facility]# [id number] 2Result Comment: [05/25/2018] [facility] lot number [id number] exp 01/26/[address] [facility] [id number] 3Result Comment: [08/20/2017] [facility] [id number] 4Admin Note: VIM dated 01/29/12 GIVEN TODAY 5Result Comment: [facility]#[id number] 6Admin Note: VIM dated 08/22/11 GIVEN TODAY [...] Stop, 04/10/2215:14:00 EDT, Route to Pharmacy Electronically, [id number], [facility]/pharmacy #2025, 158, cm, 04/10/22 14:56:00 EDT, Height, 143,... Start Date: 04/10/22 Status: Ordered Anoro Ellipta 62.5 mcg-25 mcg/inh inhalation powder 1 puffs, By Mouth, Daily, # 1 each, 6 Refills, Maintenance, 05/11/22 13:00:00 EDT, Powder, [facility], Partial fill upon patient [...] Gm, 1 Refills, 09/19/21 12:51:00 EST, [facility], 25, APPLY TOPICALLY 4 TIMES A DAY, 160.02, cm, 07/25/21 16:20:00 EST, Height, 143, kg,01/04/21 10:42:00 EDT, Dry Weight Start Date: 09/19/21 Status: Ordered Flonase 50 mcg/inh nasal spray See Instructions, 2 sprays Nares twice daily x 1 week, then once daily x 1-2 weeks until symptoms improve, # 16 Gm, 0 Refills, Maintenance, 02/28/21 16:31:00 EDT, [place], [facility], Partial fill upon patient request if the prescription is for... Start Date: 02/28/21 Status: Ordered FLUoxetine 20 mg oral capsule See Instructions, TAKE 1 CAPSULE BY MOUTH EVERY DAY, # 90 capsule, Refills 1, Maintenance, 06/13/2215:26:00 EST, Instructions Replace Required Details, Route to Pharmacy Electronically, [id number], 158, cm, 06/09/22 11:21:00 EST, Height, 143, kg... Start Date: 06/13/22 Status: Ordered levothyroxine 0.137 mg oral tablet See Instructions, TAKE 1 TABLET BY MOUTH ON DAYS 1-6, THEN TAKE 2 TABLETS BY MOUTH ON DAY 7, # 96 tablet, 1 Refills, [facility], 160.02, cm, 10/04/21 10:38:00 EST, Height, 143, [...] tablet, 3 Refills, Maintenance, 06/08/22 14:55:00 EST, [facility], 158, cm, 06/08/22 14:23:00 EST, [...] tablet, 0 Refills, Maintenance, 06/14/22 15:39:00 EST, [facility]/pharmacy #2024, 158, cm, 06/09/22 11:21:00 EST, Height,143, kg, 01/04/21 10:42:00 EDT, Dry Weight Start Date: 06/14/22 Status: Ordered zolpidem 10 mg oral tablet 1 tablet = 10 mg, By Mouth, Daily at bedtime, PRN for sleep, for 30 days, masspat check may fill less, # 30 tablet, 2 Refills, Acute 07/19/22 9:22:00 EST, 04/20/22 9:22:00 EDT, Tablet, [facility], 158, cm, 04/10/22 14:56:00 EDT, Height, 143, kg... Start Date: 04/20/22 Stop Date: 07/19/22 Status: Ordered zolpidem 10 mg oral tablet 1 tablet = 10 mg, By Mouth, Daily at bedtime, PRN for sleep, for 30 days, masspat check may fill less, # 30 tablet, 3 Refills, Acute 07/19/22 13:40:00 EST, 03/21/22 13:40:00 EDT, Tablet, [facility]/pharmacy#2024, 158, cm, 03/02/22 11:38:00 EDT, Height, 143... [...] Personnel Name: Celestina Trinidad MD Position: [facility] Primary Care Physician Member Role: PCP Address: Address: [address] [place] [address] Name: Lauren Mack RN Position: [facility] Nurse Member Role: Primary Care Nurse Name: Lora Santiago RN Position: [facility] RN Member Role: Primary Care Nurse Name: Mayco Ro RN Position: [facility] RN Member Role: Primary Care Nurse Name: Heydi Potts RN Position: [facility] RN Member Role: Primary Care Nurse Name: Nadya Low RN Position: [facility] RN Member Role: Primary Care Nurse Name: Mirna Greenfield RN Position: [facility] RN Member Role: Primary Care Nurse Name: Nessa Bonilla RN Position: [facility] Put In Beat Adjuster Member Role: Primary Care Nurse Care Team Related Persons Name: DINESH SARGENT Address: home [address] [place] [address] Name: BON DE Address: home [address] [address]
--- OUTSIDE RECORDS SUMMARY | 2024-06-24 14:20 | XMS_ITS | Continuity of Care Document ---
Author Organization [facility] Address [address] [place] [address]- Care Team Providers Care Plate Straightener Name Role Phone Vivi HENNING, Celestina Givens Primary Care Physician Encounter [facility] [place] Date(s): 03/28/24 - 04/27/24 [facility] [address] [place] [address]- Allergies, Adverse Reactions, Alerts No Known Allergies [...] 08/21/22 Given tetanus/diphtheria/pertussis, acel(Tdap) 7 08/13/12 Given BJAN-[id number]-[id number] 12y+ bivalent booster vax 06/14/22 Recorded SARS-CoV-2 mRNA (prlucix-jozb-uxkpf) vax 02/14/22 Recorded SARS-CoV-2 (COVID-19) mRNA BNT-162b2 vac 05/06/21 Given SARS-CoV-2 (COVID-19) mRNA BNT-162b2 vac 11/04/20 Recorded SARS-CoV-2 (COVID-19) mRNA BNT-162b2 vac 10/14/20 Recorded pneumococcal 23-valent vaccine 8 04/07/19 Given 1Result Comment: screening negative 2Result Comment: [facility]# [id number] 3Result Comment: [05/25/2018] [facility] lot number [id number] exp 01/26/2019 [facility] [id number] 4Result Comment: [08/20/2017] [facility] [id number] 5Admin Note: VIM dated 01/29/12 GIVEN TODAY 6Result Comment: [facility]# [id number] 7Admin Note: VIM dated 08/22/11 GIVEN TODAY 8Result Comment: [facility]#[id number] Medications acetaminophen 500 mg oral capsule 2 [...] 1 Refills, Soft Stop, 12/06/23 17:28:00 EDT, [facility]/pharmacy #5, Partial fill upon patient request [...] 0 Refills, Maintenance, 02/28/21 16:31:00 EDT, [place], [facility]/pharmacy #2024, Partial fill upon patient request if the prescription is for... Start Date: 02/28/21 Status: Ordered FLUoxetine 10 mg oral capsule 1, capsule, By Mouth, Daily, INSTR:TO BE TAKEN WITH 20MG CAPSULES TO EQUAL 30MG DAILY, # 90 capsule, Refills 1, Maintenance, 01/25/24 9:11:00 EDT, Route to Pharmacy Electronically, [facility] 64[facility], 157.5, cm, 01/22/24 10:31:00 EDT, Height, 145.9, kg,... Start Date: 01/25/24 Status: Ordered gabapentin 300 mg oral capsule 600 mg, 2, capsule, By Mouth, 3 times a day, # 180 capsule, Refills 3, Tot. Refills 3, Maintenance,08/25/22 22:35:00 EST, Route to Pharmacy Electronically, [facility]/pharmacy #2024, Partial fill upon patient request [...] Refills, Maintenance, 12/28/23 16:17:00 EDT, [facility], 157.5, cm, 10/18/23 15:15:00 EDT, Height, 145.9, [...] tablet, 1 Refills, Maintenance, 03/28/24 7:37:00 EDT, [facility]/pharmacy #2025, 157.5, cm, 02/12/24 14:48:00 EDT, Height, 145.9, kg, :39:00 EDT, Dry Weight Start Date: 03/28/24 Status: Ordered metFORMIN 500 mg oral tablet, extended release 1 tablet = 500 mg, By Mouth, Daily, # 90 tablet, 1 Refills, Maintenance, 01/22/24 11:02:00 EDT, ER Tablet, [facility]/pharmacy #2025, Partial fill upon patient request [...] tablet, 0 Refills, Maintenance, 03/31/24 17:50:00 EDT, [facility]/pharmacy #2025, Partial fill upon patient request [...] Code MRI Safety Implantable Status Assigning Authority [id number] Unknown [id number] Unknown 08/26/24 Unknown Unknown Active GS1 Patient Care team information Care Team Personnel Name: Celestina Trinidad MD Position: [facility] Physician - Primary Care Member Role: PCP Address: Address: [address] [place] [id number] Name: Hemalatha Lucas RN Position: [facility] RN Member Role: Primary Care Nurse Name: Lauren Mack RN Position: [facility] RN Member Role: Primary Care Nurse Name: Madelaine Ruiz RN Position: [facility] RN Member Role: Primary Care Nurse Name: Lora Santiago RN Position: [facility] SN RN Member Role: Primary Care Nurse Name: Mayco Ro RN Position: [facility] RN Member Role: Primary Care Nurse Name: Heydi Potts RN Position: [facility] SN RN Member Role: Primary Care Nurse Name: Janice Romano LPN Position: [facility] RN Member Role: Primary Care Nurse Name: Nadya Low RN Position: [facility] RN Member Role: Primary Care Nurse Name: Mirna Greenfield RN Position: [facility] RN Member Role: Primary Care Nurse Name: Nessa Bonilla RN Position: [facility] Church Secretary Member Role: Primary Care Nurse Care Team Related Persons Name: DINESH SARGENT Address: home [address] [place] [address] Name: BON DE Address: home [address] [address]
--- OUTSIDE RECORDS SUMMARY | 2024-06-24 14:20 | XMS_ITS | Continuity of Care Document ---
Author Organization [facility] Address [address] [place] [address] [address] [place] [address]- Care Team Providers Care Education Consultant Name Role Phone Kareen HENNING, Patrick Graham Primary Care Physician Encounter [facility] Date(s): 03/16/20 - 03/23/20 [facility] [address] [place] [address]- [place] Attending Physician: Jay Stafford MD Referring Physician: Patrick Mathur MD Allergies, [...] tetanus/diphtheria/pertussis, acel(Tdap) 6 08/13/12 Given 1Result Comment: [facility]# [id number] 2Result Comment: [05/25/2018] [facility] lot number [id number] exp 01/26/2019 [facility] [id number] 3Result Comment: [08/20/2017] [facility] [id number] 4Admin Note: VIM dated 01/29/12 GIVEN TODAY 5Result Comment: [facility]#[id number] 6Admin Note: VIM dated 08/22/11 GIVEN TODAY [...] 6 HOURS NEEDED FOR WHEEZE, [facility]/pharmacy #2024 Start Date: 05/27/19 Status: Ordered diclofenac 1% topical gel 1 applicator, Topically, 4 times a day, # 100 Gm, 0 Refills, Maintenance, 02/18/20 11:51:00 EDT, Gel, [facility]/pharmacy #2024, 161, cm, 01/08/20 13:51:00 EDT, Height Start Date: 02/18/20 Status: Ordered FLUoxetine 20 mg oral capsule 20 mg, 1, capsule, By Mouth, Daily, # 30 capsule, Refills 4, Tot. Refills 4, Maintenance, 08/30/19 20:34:00 EST, Route to Pharmacy Electronically, [facility]/pharmacy #2024, replacing 10mg dose, 161, cm, 08/12/19 12:43:00 EST, Height Start Date: 08/30/19 Status: Ordered levothyroxine 125 mcg (0.125 mg) oral tablet 1 tablet = 125 mcg, By Mouth, Daily, # 30 tablet, 5 Refills, Maintenance, 11/11/19 14:50:00 EDT, Tablet, [facility]/pharmacy #2024, 161, cm, 10/07/19 9:57:00 EDT, Height Start Date: 11/11/19 Status: Ordered meloxicam 15 mg oral tablet 1 tablet = 15 mg, By Mouth, Daily, Take w food., # 30 tablet, 1 Refills, Maintenance, 03/04/20 14:47:00 EDT, Tablet, [facility]/pharmacy #2024, Labs needed for further refills, [...] Pharmacy Electronically, [facility]/pharmacy #5, 161, cm, 08/04/19 14:44:00 [...] 04/17/20 12:28:00 EDT, 12/19/19 12:28:00 EDT, Tablet, [facility]/pharmacy#5, 161, cm, 10/07/19 9:57:00 EDT, Height [...]
--- OUTSIDE RECORDS SUMMARY | 2024-06-24 14:20 | XMS_ITS | Continuity of Care Document ---
Author Organization [facility] Address [address] [place] [address]- Care Team Providers Care Seal Delivery Vehicle Team Technician Name Role Phone Vivi HENNING, Celestina Givens Primary Care Physician Encounter [facility] Date(s): 05/11/22 - 06/10/22 [facility] [address] [place] [address]- Allergies, Adverse Reactions, Alerts No Known Allergies [...] acel(Tdap) 6 08/13/12 Given 1Result Comment: [facility]# [id number] 2Result Comment: [05/25/2018] [facility] lot number [id number] exp 01/26/2019 [facility] [id number] 3Result Comment: [08/20/2017] [facility] [id number] 4Admin Note: VIM dated 01/29/12 GIVEN TODAY 5Result Comment: [facility]#[id number] 6Admin Note: VIM dated 08/22/11 GIVEN TODAY [...] Stop, 04/10/2215:14:00 EDT, Route to Pharmacy Electronically, [id number], [facility]/pharmacy #2025, 158, cm, 04/10/22 14:56:00 EDT, Height, 143,... Start Date: 04/10/22 Status: Ordered Anoro Ellipta 62.5 mcg-25 mcg/inh inhalation powder 1 puffs, By Mouth, Daily, # 1 each, 6 Refills, Maintenance, 05/11/22 13:00:00 EDT, Powder, [facility], Partial fill upon [...] 100 Gm, 1 Refills, 09/19/21 12:51:00 EST, [facility]/pharmacy #2024, 25, APPLY TOPICALLY 4 TIMES A DAY, 160.02, cm, 07/25/21 16:20:00 EST, Height, 143, kg,01/04/21 10:42:00 EDT, Dry Weight Start Date: 09/19/21 Status: Ordered Flonase 50 mcg/inh nasal spray See Instructions, 2 sprays Nares twice daily x 1 week, then once daily x 1-2 weeks until symptoms improve, # 16 Gm, 0 Refills, Maintenance, 02/28/21 16:31:00 EDT, [place], [facility]/pharmacy #2024, Partial fill upon patient request if the prescription is for... Start Date: 02/28/21 Status: Ordered FLUoxetine 10 mg oral capsule 10 mg, 1, capsule, By Mouth, Daily, Take with 20mg capsule for total of 30mg daily, # 90 capsule, Refills 1, Tot. Refills 1, Maintenance, 04/11/22 14:55:00 EDT, Route to Pharmacy Electronically, [facility], Partial fill upon patient request if t... Start Date: 04/11/22 Status: Ordered levothyroxine 0.137 mg oral tablet See Instructions, TAKE 1 TABLET BY MOUTH ON DAYS 1-6, THEN TAKE 2 TABLETS BY MOUTH ON DAY 7, # 96 tablet, 1 Refills, [facility] 81962, 160.02, cm, 10/04/21 10:38:00 EST, Height, 143, [...] 0 Refills, Maintenance, 05/11/21 13:11:00 EDT, [facility]/pharmacy #2024, Partial fill upon patient request if the prescriptionis for a schedule II opioid drug., 160.02, cm, 10/0... Start Date: 05/11/21 Status: Ordered meloxicam 15 mg oral tablet See Instructions, TAKE 1 TABLET BY MOUTH DAILY WITH FOOD. LABS NEEDED FOR FURTHER REFILLS, # 30 tablet, 3 Refills, Maintenance, 06/08/22 14:55:00 EST, [facility], 158, cm, 06/08/22 14:23:00 [...] tablet, 0 Refills, Maintenance, 05/11/22 18:51:00 EDT, [facility], 158, cm, 05/08/22 11:49:00 EDT, Height, 143, kg, 01/04/21 10:42:00 EDT, Dry Weight Start Date: 05/11/22 Status: Ordered zolpidem 10 mg oral tablet 1 tablet = 10 mg, By Mouth, Daily at bedtime, PRN for sleep, for 30 days, masspat check may fill less, # 30 tablet, 2 Refills, Acute 07/19/22 9:22:00 EST, 04/20/22 9:22:00 EDT, Tablet, [facility], 158, cm, 04/10/22 14:56:00 [...] Team Personnel Name: Celestina Trinidad MD Position: [facility] Primary Care Physician Member Role: PCP Address: Address: [address] [place] [id number] Name: Lauren Mack RN Position: [facility] Nurse Member Role: Primary Care Nurse Name: Lora Santiago RN Position: [facility] SN RN Member Role: Primary Care Nurse Name: Mayco Ro RN Position: [facility] RN Member Role: Primary Care Nurse Name: Heydi Potts RN Position: [facility] RN Member Role: Primary Care Nurse Name: Nadya Low RN Position: [facility] RN Member Role: Primary Care Nurse Name: Mirna Greenfield RN Position: [facility] RN Member Role: Primary Care Nurse Name: Nessa Bonilla RN Position: [facility] Hospital Electronic Assembler Group Leader Member Role: Primary Care Nurse Care Team Related Persons Name: ROSETTA DINESH Address: home [address] [place] [address] Name: BON DE Address: home [address] [place] [id number]
--- OUTSIDE RECORDS SUMMARY | 2024-06-24 14:20 | XMS_ITS | Continuity of Care Document ---
Author Organization [facility] Address [address] [place] [address]- Care Team Providers Care Nuisance Animal Damage Control Agent Name Role Phone Vivi HENNING, Celestina Givens Primary Care Physician Encounter [facility] Date(s): 06/01/23 - 07/01/23 [facility] [address] [place] [address]- Allergies, Adverse Reactions, Alerts No Known Allergies Immunizations Given and Recorded Vaccine Date Status Refusal Reason tetanus/diphtheria/pertussis, acel(Tdap) 1 08/21/22 Given tetanus/diphtheria/pertussis, acel(Tdap) 2 08/13/12 Given MEWD-NmZ-3oHEH 12y+ bivalent booster vax 06/14/22 Recorded influenza [...] inactivated 6 07/31/12 Gi hali SARS-CoV-2 mRNA (bcljrfj-dgfk-czyoz) vax 02/14/22 Recorded SARS-CoV-2 (COVID-19) mRNA BNT-162b2 vac 05/06/21 Given SARS-CoV-2 (COVID-19) mRNA BNT-162b2 vac 11/04/20 Recorded SARS-CoV-2 (COVID-19) mRNA BNT-162b2 vac 10/14/20 Recorded pneumococcal 23-valent vaccine 7 04/07/19 Given 1Result Comment: [facility]# [id number] 2Admin Note: VIM dated 08/22/11 GIVEN TODAY 3Result Comment: [facility]# [id number] 4Result Comment: [05/25/2018] [facility] lot number [id number] exp 01/26/2019 [facility] [id number] 5Result Comment: [08/20/2017] [facility] [id number] 6Admin Note: VIM dated 01/29/12 GIVEN TODAY 7Result Comment: [facility]#[id number] Medications acetaminophen 500 mg oral capsule 2 [...] Stop, 04/10/2215:14:00 EDT, Route to Pharmacy Electronically, [id number], [facility]/pharmacy #2025, 158, cm, 04/10/22 14:56:00 [...] 16:45:00 EDT, Route to Pharmacy Electronically, [facility]/pharmacy #2024, Partial fill upon patient request if the presc... Start Date: 05/17/23 Stop Date: 05/17/24 Status: Ordered diclofenac 1% topical gel See Instructions, APPLY TOPICALLY 4 TIMES A DAY, # 100 Gm, 1 Refills, Maintenance, 06/05/23 10:25:00 EST, [facility]/pharmacy #2024, 50, APPLY TOPICALLY 4 TIMES A DAY, 157.5, cm, 05/22/23 7:39:00 EDT, Height, 145.9, kg, 05/22/23 7:39:00 EDT, Dry Weight Start Date: 06/05/23 Status: Ordered Flonase 50 mcg/inh nasal spray See Instructions, 2 sprays Nares twice daily x 1 week, then once daily x 1-2 weeks until symptoms improve, # 16 Gm, 0 Refills, Maintenance, 02/28/21 16:31:00 EDT, [place], [facility]/pharmacy #2024, Partial fill upon patient request if the prescription is for... Start Date: 02/28/21 Status: Ordered FLUoxetine 10 mg oral capsule 10 mg, 1, capsule, By Mouth, Daily, to be taken with 20mg capsules to equal 30mg daily, # 90 capsule, Refills 1, Tot. Refills 1, Maintenance, 04/03/23 11:25:00 EDT, Route to Pharmacy Electronically, [facility]/pharmacy #2024, Partial fill upon patient reques... Start Date: 04/03/23 Status: Ordered FLUoxetine 20 mg oral capsule 1, capsule, By Mouth, Daily, # 90 capsule, Refills 1, Tot. Refills 1, Maintenance, 04/03/23 11:23:00 EDT, Route to Pharmacy Electronically, [facility]/pharmacy #2024, 157, cm, 03/14/23 11:02:00 EDT, Height,145, kg, 08/29/22 20:13:00 EST, Dry Weight Start Date: 04/03/23 Status: Ordered gabapentin 300 mg oral capsule 600 mg, 2, capsule, By Mouth, 3 times a day, # 180 capsule, Refills 3, Tot. Refills 3, Maintenance,08/25/22 22:35:00 EST, Route to Pharmacy Electronically, [facility]/pharmacy #2024, Partial fill upon patient [...] 2 Refills, Maintenance, 02/27/23 7:25:00 EDT, [facility] STORE 57425, 157, cm, 12/08/22 14:27:00 EDT, Height, 145, [...] 16:30:00 EST, Aerosol, Route to Pharmacy Electronically, [id number], [facility]/pharmacy #2025, 157.5, cm, 05/22/23 7:39:00 EDT, Height... Start Date: 06/07/23 Status: Ordered traMADol 50 mg oral tablet See Instructions, 2 tab po qam and one tab po q pm prn moderate to severe pain. 28 days. mass pat ok, # 81 tablet, 0 Refills, Maintenance, 05/14/23 16:14:00 EDT, [facility]/pharmacy #5, 157, cm, 03/14/2311:02:00 EDT, Height, 145, kg, 08/29/22 20:13:00 E... Start Date: 05/14/23 Status: Ordered zolpidem 10 mg oral tablet 1 tablet = 10 mg, By Mouth, Daily at bedtime, PRN for sleep, for 30 days, # 30 tablet, 0 Refills, Acute 07/12/23 11:04:00 EST, 06/12/23 11:04:00 EST, Tablet, [facility]/pharmacy #2024, early refill for travel. [...] Code MRI Safety Implantable Status Assigning Authority [id number] Unknown [id number] Unknown 08/26/24 Unknown Unknown Active GS1 Patient Care team information Care Team Personnel Name: Celestina Trinidad MD Position: [facility] Physician - Primary Care Member Role: PCP Address: Address: [address] [place] [address] Name: Hemalatha Lucas RN Position: [facility] [...] Care Nurse Name: Nessa Bonilla RN Position: [facility] Hospital Instructor Decorating Member Role: Primary Care Nurse Care Team Related Persons Name: ROSETTA, DINESH Address: home [address] [place] [address] Name: BON DE Address: home [address] [address]
--- OUTSIDE RECORDS SUMMARY | 2024-06-24 14:20 | XMS_ITS | Continuity of Care Document ---
Author Organization [facility] Address [address] [place] [address]- Care Team Providers Care Hot Plate Plywood Press Operator Name Role Phone Madeline Lux NP Primary Care Physician Encounter [facility] Date(s): 02/10/22 - 03/12/22 [facility] [address] [place] [address]- Allergies, Adverse Reactions, Alerts No Known Allergies [...] acel(Tdap) 6 08/13/12 Given 1Result Comment: [facility]# [id number] 2Result Comment: [05/25/2018] [facility] lot number [id number] exp 01/26/2019 [facility] [id number] 3Result Comment: [08/20/2017] [facility] [id number] 4Admin Note: VIM dated 01/29/12 GIVEN TODAY 5Result Comment: [facility]#[id number] 6Admin Note: VIM dated 08/22/11 GIVEN TODAY [...] Stop, 03/02/2212:01:00 EDT, Route to Pharmacy Electronically, [id number], [facility] 158, cm, 03/02/22 11:38:00 EDT, [...] Gm, 0 Refills, Maintenance, 02/28/21 16:31:00 EDT, [place], [facility], Partial fill upon patient request if the prescription is for... Start Date: 02/28/21 Status: Ordered FLUoxetine 10 mg oral capsule 10 mg, 1, capsule, By Mouth, Daily, Take with 20mg capsule for total of 30mg daily, # 90 capsule, Refills 1, Tot. Refills 1, Maintenance, 03/11/22 11:03:00 EDT, Route to Pharmacy Electronically, [facility]/pharmacy #2025, Partial fill upon patient request if... Start Date: 03/11/22 Status: Ordered FLUoxetine 20 mg oral capsule 20 mg, 1, capsule, By Mouth, Daily, Take with Fluoxetine 10mg for a total of 30mg, # 90 capsule, Refills 1, Tot. Refills 1, Maintenance, 12/30/21 12:34:00 EDT, Route to Pharmacy Electronically, [facility]/pharmacy #2025, replacing 10mg dose, 160.02, cm, 1... Start Date: 12/30/21 Status: Ordered fluticasone-vilanterol 100 mcg-25 mcg/inh inhalation powder 1 puffs, Inhalation, Every 24 hours, rinse mouth and throat after use, j45.40, # 1 each, 11 Refills, Maintenance, 03/10/22 12:51:00 EDT, [place], [facility]/pharmacy #2025, Partial fill upon patient request if the prescription is for a schedule II opioid drug... Start Date: 03/10/22 Status: Ordered levothyroxine 0.137 mg oral tablet See Instructions, TAKE 1 TABLET BY MOUTH ON DAYS 1-6, THEN TAKE 2 TABLETS BY MOUTH ON DAY 7, # 96 tablet, 1 Refills, [facility] STORE 10370, 160.02, cm, 10/04/21 10:38:00 EST, Height, 143, [...]
--- OUTSIDE RECORDS SUMMARY | 2024-06-24 14:20 | XMS_ITS | Continuity of Care Document ---
Author Organization [facility] Address [address] [place] [address]- Care Team Providers Care Straw Baler Name Role Phone Vivi HENNING, Celestina Givens Primary Care Physician [place] [facility] [place] 03/28/24 - 04/27/24 [facility] [address] [place] [address]- Allergies, Adverse Reactions, Alerts No Known Allergies [...] 08/21/22 Given tetanus/diphtheria/pertussis, acel(Tdap) 7 08/13/12 Given [id number] 12y+ bivalent booster vax 06/14/22 Recorded SARS-CoV-2 mRNA (dsaqkyz-tpvr-iqmuc) vax 02/14/22 Recorded SARS-CoV-2 (COVID-19) mRNA BNT-162b2 vac 05/06/21 Given SARS-CoV-2 (COVID-19) mRNA BNT-162b2 vac 11/04/20 Recorded SARS-CoV-2 (COVID-19) mRNA BNT-162b2 vac 10/14/20 Recorded pneumococcal 23-valent vaccine 8 04/07/19 Given 1Result Comment: screening negative 2Result Comment: [facility]# [id number] 3Result Comment: [05/25/2018] [facility] lot number [id number] exp 01/26/2019 [facility] [id number] 4Result Comment: [08/20/2017] [facility] [id number] 5Admin Note: VIM dated 01/29/12 GIVEN TODAY 6Result Comment: [facility]# [id number] 7Admin Note: VIM dated 08/22/11 GIVEN TODAY 8Result Comment: [facility]#[id number] Medications acetaminophen 500 mg oral capsule 2 [...] Gm, 0 Refills, Maintenance, 02/28/21 16:31:00 EDT, [place], [facility]/pharmacy #2024, Partial fill upon patient request if the prescription is for... Start Date: 02/28/21 Status: Ordered FLUoxetine 10 mg oral capsule 1, capsule, By Mouth, Daily, INSTR:TO BE TAKEN WITH 20MG CAPSULES TO EQUAL 30MG DAILY, # 90 capsule, Refills 1, Maintenance, 01/25/24 9:11:00 EDT, Route to Pharmacy Electronically, [facility] STORE 31549, 157.5, cm, 01/22/24 10:31:00 EDT, Height, 145.9, [...] Refills, Maintenance, 12/28/23 16:17:00 EDT, [facility], 157.5, cm, 10/18/23 15:15:00 EDT, Height, 145.9, [...] Maintenance, 03/31/24 17:50:00 EDT, [facility]/pharmacy #2025, Partial fill upon [...] Code MRI Safety Implantable Status Assigning Authority [id number] Unknown [id number] Unknown 08/26/24 Unknown Unknown Active GS1 Patient Care team information Care Team Personnel Name: Celestina Trinidad MD Position: [facility] Physician - Primary Care Member Role: PCP Address: Address: [address] [place] [id number] Name: Hemalatha Lucas RN Position: [facility] RN Member Role: Primary Care Nurse Name: Lauren Mack RN Position: [facility] RN Member Role: Primary Care Nurse Name: Madelaine Ruiz RN Position: [facility] RN Member Role: Primary Care Nurse Name: Lora Santiago RN Position: [facility] SN RN Member [...] Nessa Bonilla RN Position: [facility] In Service Education Teacher Member Role: Primary Care Nurse Care Team Related Persons Name: DINESH SARGENT Address: home [address] [place] [address] Name: BON DE Address: home [address] [address]
--- OUTSIDE RECORDS SUMMARY | 2024-06-24 14:20 | XMS_ITS | Continuity of Care Document ---
Author Organization [facility] Address [address] [place] [address]- Care Team Providers Care Metropolitan Editor Name Role Phone Yolanda AHN, Padmaja Pelayo Primary Care Physician [place] [facility] [place] 11[place]25/21 [facility] [address] [place] [address]- Allergies, Adverse Reactions, Alerts No Known Allergies [...] 1Result Comment: [facility]# [id number] 2Result Comment: [05/25/2018] [facility] lot number [id number] exp 01/26/2019 [facility] [id number] 3Result Comment: [08/20/2017] [facility] [id number] 4Admin Note: VIM dated 01/29/12 GIVEN TODAY 5Result Comment: [facility]#[id number] 6Admin Note: VIM dated 08/22/11 GIVEN TODAY [...] Replace Required Details, Route to Pharmacy Electronically, [id number]... Start Date: 10/28/21 Status: Ordered Aerochamber w/Mask [...] 07/25/21 16:53:00 EST, Route to Pharmacy Electronically, [id number], [facility], 160.02, cm, 07/25/21 16:20:00 EST, [...] Gm, 0 Refills, Maintenance, 02/28/21 16:31:00 EDT, [place], [facility]/pharmacy #2025, Partial fill upon patient request if the prescription is for... Start Date: 02/28/21 Status: Ordered FLUoxetine 10 mg oral capsule 10 mg, 1, capsule, By Mouth, Daily, Take with 20mg capsule for total of 30mg daily, # 90 capsule, Refills 1, Tot. Refills 1, Maintenance, 09/19/21 12:45:00 EST, Route to Pharmacy Electronically, [facility]/pharmacy #202, Partial fill upon patient [...] DAY 7, # 96 tablet, 1 Refills, [facility] [address]90, 160.02, cm, 10/04/21 10:38:00 EST, Height, 143, [...] tablet, 3 Refills, 09/19/21 12:46:00 EST, [facility], 160.02, cm, 07/25/21 16:20:00 [...]
--- OUTSIDE RECORDS SUMMARY | 2024-06-24 14:20 | XMS_ITS | Continuity of Care Document ---
Author Organization [facility] Address [address] [place] [address]- Care Team Providers Care Academic Vice President Name Role Phone Vivi HENNING, Celestina Givens Primary Care Physician Encounter [facility] Date(s): 09/14/23 - 10/14/23 [facility] [address] [place] [address]- Allergies, Adverse Reactions, Alerts No Known Allergies [...] 08/21/22 Given tetanus/diphtheria/pertussis, acel(Tdap) 7 08/13/12 Given ABYV-PfV-5kNTP 12y+ bivalent booster vax 06/14/22 Recorded SARS-CoV-2 mRNA (dswylfz-wjun-ubnzl) vax 02/14/22 Recorded SARS-CoV-2 (COVID-19) mRNA BNT-162b2 vac 05/06/21 Given SARS-CoV-2 (COVID-19) mRNA BNT-162b2 vac 11/04/20 Recorded SARS-CoV-2 (COVID-19) mRNA BNT-162b2 vac 10/14/20 Recorded pneumococcal 23-valent vaccine 8 04/07/19 Given 1Result Comment: screening negative 2Result Comment: [facility]# [id number] 3Result Comment: [05/25/2018] [facility] lot number [id number] exp 01/26/2019 [facility] 16145-794-84 4Result Comment: [08/20/2017] [facility] [id number] 5Admin Note: VIM dated 01/29/12 GIVEN TODAY 6Result Comment: [facility]# [id number] 7Admin Note: VIM dated 08/22/11 GIVEN TODAY 8Result Comment: [facility]#[id number] Medications acetaminophen 500 mg oral capsule 2 [...] 05/17/23 16:45:00 EDT, Route to Pharmacy Electronically, [facility]/pharmacy #2024, Partial fill upon patient request if the presc... Start Date: 05/17/23 Stop Date: 05/17/24 Status: Ordered diclofenac 1% topical gel See Instructions, APPLY TO AFFECTED AREA 4 TIMES A DAY, # 100 Gm, 1 Refills, Maintenance, 09/02/23 8:08:00 EST, [facility], 25, APPLY TO AFFECTED AREA 4 TIMES [...] Gm, 0 Refills, Maintenance, 02/28/21 16:31:00 EDT, [place], [facility], Partial fill upon patient request [...] 07/31/23 19:01:00 EST, Route to Pharmacy Electronically, [facility]/pharmacy #2024, 157.5, cm, 07/13/23 9:57:00 EST, Height, 145.9, kg, 05/22/23 7:39:00 EDT, Dry Weight Start Date: 07/31/23 Status: Ordered gabapentin 300 mg oral capsule 600 mg, 2, capsule, By Mouth, 3 times a day, # 180 capsule, Refills 3, Tot. Refills 3, Maintenance,08/25/22 22:35:00 EST, [facility] fill upon patient [...] tablet, 0 Refills, Maintenance, 10/12/23 6:42:00 EDT, [facility]/pharmacy #2024, 157.5, cm, 07/13/23 9:57:00 EST, Height, 145.9, kg, 05/22/23 7:39:00 EDT, Dry Weight Start Date: 10/12/23 Status: Ordered meclizine 25 mg oral tablet See Instructions, PRN Dizziness, 1 tablet By Mouth 3 times a day, # 30 tablet, 0 Refills, Maintenance, 02/27/23 10:43:00 EDT, [facility]/pharmacy [...] Code MRI Safety Implantable Status Assigning Authority [id number] [id number] Unknown [id number] Unknown 08/26/24 Unknown Unknown Active GS1 Patient Care team information Care Team Personnel Name: Celestina Trinidad MD Position: [facility] Physician - Primary Care Member Role: PCP Address: Address: [address] [place] [id number] Name: Hemalatha Lucas RN Position: [facility] RN Member Role: Primary Care Nurse Name: Lauren Mack RN Position: [facility] Nurse Member Role: Primary Care Nurse Name: Madelaine Ruiz RN Position: [facility] RN Member Role: Primary Care Nurse Name: Lora Santiago RN Position: [facility] RN Member Role: Primary Care Nurse Name: Mayco Ro RN Position: [facility] RN Member Role: Primary Care Nurse Name: Heydi Potts RN Position: [facility] RN Member Role: Primary Care Nurse Name: Janice Romano LPN Position: [facility] RN Member Role: Primary Care Nurse Name: Nadya Low RN Position: [facility] RN Member Role: Primary Care Nurse Name: Mirna Greenfield RN Position: [facility] RN Member Role: Primary Care Nurse Name: Nessa Bonilla RN Position: [facility] Plug Maker Member Role: Primary Care Nurse Care Team Related Persons Name: DINESH SARGENT Address: home [address] [place] [address] Name: BON DE Address: home [address] [address]
--- OUTSIDE RECORDS SUMMARY | 2024-06-24 14:20 | XMS_ITS | Continuity of Care Document ---
Author Organization [facility] Address [address] [place] [address]- Care Team Providers Care Dial Polisher Name Role Phone Vivi HENNING, Celestina Givens Primary Care Physician En[place] [facility] Date(s): 07/21/22 - 08/20/22 [facility] [address] [place] [address]- Attending Physician: Calixto Beltran Admitting Physician: Calixto Beltran Referring Physician: AdmtrCalixto Allergies, Adverse Reactions, Alerts No Known Allergies Immunizations Given and Recorded Vaccine Date Status Refusal Reason [id number] 12y+ bivalent booster vax 06/14/22 Recorded influenza [...] vaccine, inactivated 07/31/12 Gi hali SARS-CoV-2 mRNA (jtssllg-ubyk-mmhzk) vax 02/14/22 Recorded SARS-CoV-2 (COVID-19) mRNA BNT-162b2 vac 05/06/21 Given SARS-CoV-2 (COVID-19) mRNA BNT-162b2 vac 11/04/20 Recorded SARS-CoV-2 (COVID-19) mRNA BNT-162b2 vac 10/14/20 Recorded pneumococcal 23-valent vaccine 5 04/07/19 Given tetanus/diphtheria/pertussis, acel(Tdap) 6 08/13/12 Given 1Result Comment: [facility]# [id number] 2Result Comment: [05/25/2018] [facility] lot number [id number] exp 01/26/[address] [facility] [id number] 3Result Comment: [08/20/2017] [facility] 20674-351-85 4Admin Note: VIM dated 01/29/12 GIVEN TODAY 5Result Comment: [facility]#[id number] 6Admin Note: VIM dated 08/22/11 GIVEN TODAY [...] Stop, 04/10/2215:14:00 EDT, Route to Pharmacy Electronically, [id number], [facility]/pharmacy #2025, 158, cm, 04/10/22 14:56:00 EDT, Height, 143,... Start Date: 04/10/22 Status: Ordered amLODIPine 10 mg oral tablet 1 tablet, By Mouth, Daily, # 90 tablet, 0 Refills, Maintenance, 07/21/22 17:34:00 EST, [facility], 158, cm, 07/21/22 15:09:00 EST, Height, 143, kg, 01/04/21 10:42:00 EDT, Dry Weight Start Date: 07/21/22 Status: Ordered Anoro Ellipta 62.5 mcg-25 mcg/inh inhalation powder 1 puffs, By Mouth, Daily, # 1 each, 6 Refills, Maintenance, 05/11/22 13:00:00 EDT, [place], [facility], Partial fill upon patient request if the prescription is for a schedule II opioid drug., 1puffs By Mouth Daily,x30 days, 158, cm, 05/08/22 11... Start Date: 05/11/22 Stop Date: 12/07/22 Status: Ordered cilostazol 100 mg oral tablet 1 tablet, By Mouth, 2 times a day, # 60 tablet, 0 Refills, Maintenance, 08/20/22 11:31:00 EST, [facility], 159, cm, 08/15/22 11:23:00 EST, Height, 143, [...] 09/19/21 12:51:00 EST, [facility]/pharmacy #2025, 25, APPLY TOPICALLY 4 TIMES A [...] Gm, 0 Refills, Maintenance, 02/28/21 16:31:00 EDT, [place], [facility]/pharmacy #2024, Partial fill upon patient request if the prescription is for... Start Date: 02/28/21 Status: Ordered FLUoxetine 20 mg oral capsule See Instructions, TAKE 1 CAPSULE BY MOUTH EVERY DAY, # 90 capsule, Refills 1, Maintenance, 06/13/2215:26:00 EST, Instructions Replace Required Details, Route to Pharmacy Electronically, [facility] STORE 35085, 158, cm, 06/09/22 11:21:00 EST, Height, 143, [...] 14:41:00 EST, Tablet, [facility]/pharmacy #2024, [...] 08/01/22 21:26:00EST, Ointment, [facility]/pharmacy #202, Partial fill upon patient request if the prescription is for a schedule II opioid drug., 1 application Topically [place]... Start Date: 08/01/22 Stop Date: 09/27/22 Status: [...] Team Personnel Name: Celestina Trinidad MD Position: [facility] Primary Care Physician Member Role: PCP Address: Address: [address] [place] [id number] Name: Lauren Mack RN Position: [facility] Nurse Member Role: Primary Care Nurse Name: Lora Santiago RN Position: [facility] RN Member Role: Primary Care Nurse Name: Mayco Ro RN Position: [facility] RN Member Role: Primary Care Nurse Name: Heydi Potts RN Position: [facility] RN Member Role: Primary Care Nurse Name: Nadya Low RN Position: [facility] RN Member Role: Primary Care Nurse Name: Mirna Greenfield RN Position: [facility] RN Member Role: Primary Care Nurse Name: Nessa Bonilla RN Position: [facility] Hospital Bridal Stylist Sales Consultant Member Role: Primary Care Nurse Care Team Related Persons Name: DINESH SARGENT Address: home [address] [place] [address] Name: BON DE Address: home [address] [place] [address]
--- OUTSIDE RECORDS SUMMARY | 2024-06-24 14:20 | XMS_ITS | Continuity of Care Document ---
Author Organization [facility] Address [address] [place] [address]- Care Team Providers Care Oncology Rep Name Role Phone Mónica Liu NP Primary Care Physician Encounter [facility] Date(s): 05/06/21 - 05/13/21 [facility] [address] [place], [place] [address] Encounter Diagnosis Macromastia(Discharge Diagnosis) - 05/06/21 Screen for STD (sexually transmitted disease)(Discharge Diagnosis) - 05/06/21 Attending Physician: Mónica Liu NP Allergies, Adverse [...] 1Result Comment: [facility]# [id number] 2Result Comment: [05/25/2018] [facility] lot number [id number] exp 01/26/2019 [facility] 53517-900-84 3Result Comment: [08/20/2017] [facility] [id number] 4Admin Note: VIM dated 01/29/12 GIVEN TODAY 5Result Comment: [facility]#[id number] 6Admin Note: VIM dated 08/22/11 GIVEN TODAY [...] 10/27/20 14:48:00 EDT, Route to Pharmacy Electronically, [id number], [facility]/pharmacy #5, 160.02, cm, 10/19/20 11:04:00 EDT, Height, 156... Start Date: 10/27/20 Status: Ordered betamethasone-clotrimazole 0.05%-1% topical cream 1 application, Topically, 2 times a day, # 45 Gm, 0 Refills, Maintenance, 12/27/20 14:13:00 EDT, [place], [facility]/pharmacy #2024, Partial fill upon [...] Gm, 0 Refills, Maintenance, 02/28/21 16:31:00 EDT, [place], [facility]/pharmacy #2024, Partial fill upon patient request if the prescription is for... Start Date: 02/28/21 Status: Ordered FLUoxetine 10 mg oral capsule 10 mg, 1, capsule, By Mouth, Daily, Take with 20mg capsule for total of 30mg daily, # 90 capsule, Refills 1, Tot. Refills 1, Maintenance, 05/04/21 16:44:00 EDT, Route to Pharmacy Electronically, [facility]/pharmacy #202, Partial fill upon patient request if... Start Date: 05/04/21 Status: Ordered FLUoxetine 20 mg oral capsule 20 mg, 1, capsule, By Mouth, Daily, Take with Fluoxetine 10mg for a total of 30mg, # 90 capsule, Refills 1, Tot. Refills 1, Maintenance, 05/04/21 16:44:00 EDT, Route to Pharmacy Electronically, [facility]/pharmacy #2025, replacing 10mg dose, 160.02, cm, 08/0... Start Date: 05/04/21 Status: Ordered levothyroxine 0.137 mg oral tablet See Instructions, Take 1 tablet by mouth on days 1-6, then take 2 tablets by mouth on day 7, # 121 tablet, 5 Refills, Maintenance, 12/07/20 9:46:00 EDT, [facility]/pharmacy #2025, 160.02, cm, 10/19/20 11:04:00 EDT, Height, 156.81, kg, 10/19/20 11:04:00 EDT,... Start Date: 12/07/20 Status: Ordered meclizine 25 mg oral tablet See Instructions, PRN Dizziness, 1 tablet By Mouth 3 times a day, # 30 tablet, 0 Refills, Maintenance, 05/11/21 13:11:00 EDT, [facility]/pharmacy #202, Partial fill upon patient request if the prescriptionis for a schedule II opioid drug., 160.02, cm, 10/0... Start Date: 05/11/21 Status: Ordered meloxicam 15 mg oral tablet 1 tablet, By Mouth, Daily, WITH FOOD., # 30 tablet, 1 Refills, [facility] STORE 83039, 160.02, cm, 02/28/21 15:45:00 EDT, Height, 143, [...] tablet, 2 Refills, Maintenance, 05/11/21 13:11:00 EDT, [facility]/pharmacy #2025, 160.02, cm, 05/06/21 10:09:00 EDT, Height, 143, kg, 01/04/21 10:42:00 EDT, Dry Weight Start Date: 05/11/21 Stop Date: 08/09/21 Status: Ordered traMADol 50 mg oral tablet 2 tablet = 100 mg, By Mouth, Every 12 hours, as needed for pain masspat checked, # 120 tablet, 2 Refills, Maintenance, 02/10/21 12:37:00 EDT, [facility]/pharmacy #2025, 160.02, cm, 01/04/21 10:42:00 EDT, Height, 143, kg, 01/04/21 10:42:00 EDT, Dry Weight Start Date: 02/10/21 Stop Date: 05/11/21 Status: Ordered zolpidem 10 mg oral tablet 1 tablet = 10 mg, By Mouth, Daily at bedtime, PRN for sleep, for 30 days, masspat check november fill less, # 30 tablet, 3 Refills, [...] Effective Dates Health Status Clinical Service Informant Macromastia Discharge Diagnosis 05/06/21 Screen for STD (sexually transmitted disease) Discharge Diagnosis 05/06/21 Vital Signs Most recent to oldest [Reference Range]: 1 Height 160.02 cm (05/06/21 10:09 AM) Oxygen Saturation [94-100 %] 96 % (05/06/21 10:09 AM) Pulse Rate [55-90 bpm] 70 bpm (05/06/21 10:09 AM) Blood Pressure [90-138/55-84 mm Hg] 137/ 78mm Hg (05/06/21 10:09 AM) Respiratory Rate [16-30 br/min] 26 br/mi n (05/06/21 10:09 AM) Blood pressure sites Arm, right (05/06/21 10:09 AM) Social History Social History Type Response Smoking Status Current every day sm oker; Tobacco user in household: No; Type: Cigarettes; Tobacco use times per day: 1/2 ppd; entered on: 07/08/15 Sex
--- OUTSIDE RECORDS SUMMARY | 2024-06-24 14:20 | XMS_ITS | Continuity of Care Document ---
Author Organization [facility] Address [address] [place] [address]- Care Team Providers Care Distribution Collection Operator Name Role Phone Vivi HENNING, Celestina Givens Primary Care Physician Encounter [facility] Date(s): 10/23/22 - 11/22/22 [facility] [address] [place] [address]- Allergies, Adverse Reactions, Alerts No Known Allergies Immunizations Given and Recorded Vaccine Date Status Refusal Reason tetanus/diphtheria/pertussis, acel(Tdap) 1 08/21/22 Given tetanus/diphtheria/pertussis, acel(Tdap) 2 08/13/12 Given [id number] 12y+ bivalent booster vax 06/14/22 Recorded influenza [...] inactivated 6 07/31/12 Gi hali SARS-CoV-2 mRNA (gsqwqke-adxw-cvrcb) vax 02/14/22 Recorded SARS-CoV-2 (COVID-19) mRNA BNT-162b2 vac 05/06/21 Given SARS-CoV-2 (COVID-19) mRNA BNT-162b2 vac 11/04/20 Recorded SARS-CoV-2 (COVID-19) mRNA BNT-162b2 vac 10/14/20 Recorded pneumococcal 23-valent vaccine 7 04/07/19 Given 1Result Comment: [facility]# [id number] 2Admin Note: VIM dated 08/22/11 GIVEN TODAY 3Result Comment: [facility]# [id number] 4Result Comment: [05/25/2018] [facility] lot number [id number] exp 01/26/2019 [facility] 39996-078-95 5Result Comment: [08/20/2017] [facility] 97005-875-36 6Admin Note: VIM dated 01/29/12 GIVEN TODAY 7Result Comment: [facility]#[id number] Medications acetaminophen 500 mg oral capsule 2 [...] Stop, 04/10/2215:14:00 EDT, Route to Pharmacy Electronically, [id number], [facility]/pharmacy #2025, 158, cm, 04/10/22 14:56:00 EDT, Height, 143,... Start Date: 04/10/22 Status: Ordered amLODIPine 10 mg oral tablet 1 tablet, By Mouth, Daily, # 90 tablet, 0 Refills, Maintenance, 10/23/22 12:47:00 EDT, [facility] STORE [facility], 157, cm, 09/13/22 15:58:00 EST, Height, 145, kg, 08/29/22 20:13:00 EST, Dry Weight Start Date: 10/23/22 Status: Ordered budesonide-formoterol 80 mcg-4.5 mcg/inh inhalation aerosol with adapter 2, puffs, Inhalation, 2 times a day, PRN, use with spacer chamber, rinse mouth and throat after use, # 10.2 Gm, Refills 5, Tot. Refills 5, Maintenance, 09/12/22 11:06:00 EST, Aerosol, Route to Pharmacy Electronically, [id number]... Start Date: 09/12/22 Status: Ordered Compression Stockings [...] Gm, 1 Refills, 09/22/22 7:28:00 EST, [facility]/pharmacy #2024, 25, APPLY TOPICALLY 4 [...] 13:30:00 EST, Route to Pharmacy Electronically, [facility]/pharmacy #2024, Partial fill upon patient request if the p... Start Date: 08/31/22 Status: Ordered Flonase 50 mcg/inh nasal spray See Instructions, 2 sprays Nares twice daily x 1 week, then once daily x 1-2 weeks until symptoms improve, # 16 Gm, 0 Refills, Maintenance, 02/28/21 16:31:00 EDT, [place], [facility], Partial fill upon patient request if the prescription is for... Start Date: 02/28/21 Status: Ordered FLUoxetine 20 mg oral capsule 1, capsule, By Mouth, Daily, # 90 capsule, Refills 1, Maintenance, 10/23/22 12:47:00 EDT, Route to Pharmacy Electronically, [facility], 157, cm, 09/13/22 15:58:00 EST, Height, 145, kg, 08/29/22 20:13:00 EST, Dry Weight Start Date: 10/23/22 Status: Ordered furosemide 20 mg oral tablet 1, tablet, By Mouth, Daily, MAY REPEAT IF NEEDED IN 2 HOURS, # 30 tablet, Refills 0, Maintenance, 11/21/22 14:18:00 EDT, Route to Pharmacy Electronically, [facility], 157, cm, 10/30/22 13:53:00 EDT, Height, 145, kg, 08/29/22 20:13:00 EST, Dry Weight Start Date: 11/21/22 Status: Ordered gabapentin 300 mg oral capsule [...] Refills, Maintenance, 10/18/22 21:31:00 EDT, [facility], 157, cm, 09/13/22 15:58:00 EST,Height, 145, kg, [...] Team Personnel Name: Celestina Trinidad MD Position: [facility] Primary Care Physician Member Role: PCP Address: Address: [address] [place] [id number] Name: Hemalatha Lucas RN Position: [facility] RN Member Role: Primary Care Nurse Name: Lauren Mack RN Position: [facility] AMB Nurse Member Role: Primary Care Nurse Name: Madelaine Ruiz RN Position: [facility] RN Member Role: Primary Care Nurse Name: Lora Santiago RN Position: [facility] SN RN Member Role: Primary Care Nurse Name: Mayco Ro RN Position: [facility] RN Member Role: Primary Care Nurse Name: Heydi Potts RN Position: [facility] RN Member Role: Primary Care Nurse Name: Janice Romano LPN Position: [facility] RN Member Role: Primary Care Nurse Name: Nadya Low RN Position: [facility] RN Member Role: Primary Care Nurse Name: Mirna Greenfield RN Position: [facility] RN Member Role: Primary Care Nurse Name: Nessa Bonilla RN Position: [facility] Hospital Core Maker Member Role: Primary Care Nurse Care Team Related Persons Name: DINESH SARGENT Address: home [address] [place] [address] Name: BON DE Address: home [address] [address]
--- OUTSIDE RECORDS SUMMARY | 2024-06-24 14:20 | XMS_ITS | Continuity of Care Document ---
Author Organization [facility] Address [address] [place] [address]- Care Team Providers Care Industrial Automation Engineer Name Role Phone Vivi HENNING, Celestina Givens Primary Care Physician [place] [facility] [place] 03/12/24 [facility] [address] [place] [address]- Allergies, Adverse Reactions, Alerts No Known Allergies [...] 08/21/22 Given tetanus/diphtheria/pertussis, acel(Tdap) 7 08/13/12 Given [id number] 12y+ bivalent booster vax 06/14/22 Recorded SARS-CoV-2 mRNA (lpfugvf-renr-iqcsy) vax 02/14/22 Recorded SARS-CoV-2 (COVID-19) mRNA BNT-162b2 vac 05/06/21 Given SARS-CoV-2 (COVID-19) mRNA BNT-162b2 vac 11/04/20 Recorded SARS-CoV-2 (COVID-19) mRNA BNT-162b2 vac 10/14/20 Recorded pneumococcal 23-valent vaccine 8 04/07/19 Given 1Result Comment: screening negative 2Result Comment: [facility]# 83415-448-83 3Result Comment: [05/25/2018] [facility] lot number [id number] exp 01/26/2019 [facility] 04360-107-96 4Result Comment: [08/20/2017] [facility] 49896-531-35 5Admin Note: VIM dated 01/29/12 GIVEN TODAY 6Result Comment: [facility]# [id number] 7Admin Note: VIM dated 08/22/11 GIVEN TODAY 8Result Comment: [facility]#[id number] Medications acetaminophen 500 mg oral capsule 2 [...] 1 Refills, Soft Stop, 12/06/23 17:28:00 EDT, [facility]/pharmacy #5, Partial fill upon patient [...] 05/17/24 16:46:00 EDT, Route to Pharmacy Electronically, [facility]/pharmacy #2024, Partial fill upon patient request if the prescription is for a... Start Date: 05/17/24 Status: Ordered cyclobenzaprine 10 mg oral tablet 10 mg, 1, tablet, By Mouth, 3 times a day, PRN, # 30 tablet, Refills 0, Tot. Refills 0, Acute 05/17/24 16:46:00 EDT, for spasm, 05/17/23 16:45:00 EDT, Route to Pharmacy Electronically, [facility]/pharmacy #2024, Partial fill upon patient [...] Refills, Maintenance, 02/01/24 13:44:00 EDT, [facility], 30, APPLY TO AFFECTED AREA 4 TIMES [...] Gm, 0 Refills, Maintenance, 02/28/21 16:31:00 EDT, [place], [facility]/pharmacy #5, Partial fill upon patient request if the prescription is for... Start Date: 02/28/21 Status: Ordered FLUoxetine 10 mg oral capsule 1, capsule, By Mouth, Daily, INSTR:TO BE TAKEN WITH 20MG CAPSULES TO EQUAL 30MG DAILY, # 90 capsule, Refills 1, Maintenance, 01/25/24 9:11:00 EDT, Route to Pharmacy Electronically, [facility] ST[facility]44[facility], 157.5, cm, 01/22/24 10:31:00 EDT, Height, 145.9, kg,... Start Date: 01/25/24 Status: Ordered gabapentin 300 mg oral capsule 600 mg, 2, capsule, By Mouth, 3 times a day, # 180 capsule, Refills 3, Tot. Refills 3, Maintenance,08/25/22 22:35:00 EST, Route to Pharmacy Electronically, [facility]/pharmacy #2024, Partial fill upon patient [...] Refills, Maintenance, 12/28/23 16:17:00 EDT, [facility], 157.5, cm, 10/18/23 15:15:00 EDT, Height, 145.9, [...] tablet, 5 Refills, Maintenance, 10/08/23 17:05:00 EDT, [facility]/pharmacy #2025, 157.5, cm, 07/13/23 9:57:00 EST, Height, 145.9, kg, 237:39:00 EDT, Dry Weight Start Date: 10/08/23 Status: Ordered metFORMIN 500 mg oral tablet, extended release 1 tablet = 500 mg, By Mouth, Daily, # 90 tablet, 1 Refills, Maintenance, 01/22/24 11:02:00 EDT, ER Tablet, [facility]/pharmacy #2025, Partial fill upon patient [...] Code MRI Safety Implantable Status Assigning Authority [id number] Unknown [id number] Unknown 08/26/24 Unknown Unknown Active GS1 Patient Care team information Care Team Personnel Name: Celestina Trinidad MD Position: [facility] Physician - Primary Care Member Role: PCP Address: Address: [address] [place] [address] Name: Hemalatha Lucas RN Position: [facility] RN Member Role: Primary Care Nurse Name: Lauren Mack RN Position: [facility] MARY Nurse Member Role: Primary Care Nurse Name: Madelaine Ruiz RN Position: [facility] RN Member Role: Primary Care Nurse Name: Lora Santiago RN Position: [facility] RN Member Role: Primary Care Nurse Name: Mayco Ro RN Position: [facility] RN Member Role: Primary Care Nurse Name: Heydi Potts RN Position: [facility] SN RN Member Role: Primary Care Nurse Name: Janice Romano LPN Position: [facility] RN Member Role: Primary Care Nurse Name: Nadya oLw RN Position: [facility] RN Member Role: Primary Care Nurse Name: Mirna Greenfield RN Position: [facility] RN Member Role: Primary Care Nurse Name: Nessa Bonilla RN Position: [facility] Professor Of Forest Planning Member Role: Primary Care Nurse Care Team Related Persons Name: DINESH SARGENT Address: home [address] [place] [address] Name: BON DE Address: home [address] [place] [id number]
--- OUTSIDE RECORDS SUMMARY | 2024-06-24 14:20 | XMS_ITS | Continuity of Care Document ---
Author Organization [facility] Address [address] [place] [address]- Care Team Providers Care Glue Maker Name Role Phone Vivi HENNING, Celestina Givens Primary Care Physician [place] [facility] [place] 01/25/24 - 02/24/24 [facility] [address] [place] [address]- Allergies, Adverse Reactions, Alerts No Known Allergies [...] 08/21/22 Given tetanus/diphtheria/pertussis, acel(Tdap) 7 08/13/12 Given [id number] 12y+ bivalent booster vax 06/14/22 Recorded SARS-CoV-2 mRNA (smjqkbf-kiqh-vrmht) vax 02/14/22 Recorded SARS-CoV-2 (COVID-19) mRNA BNT-162b2 vac 05/06/21 Given SARS-CoV-2 (COVID-19) mRNA BNT-162b2 vac 11/04/20 Recorded SARS-CoV-2 (COVID-19) mRNA BNT-162b2 vac 10/14/20 Recorded pneumococcal 23-valent vaccine 8 04/07/19 Given 1Result Comment: screening negative 2Result Comment: [facility]# [id number] 3Result Comment: [05/25/2018] [facility] lot number [id number] exp 01/26/2019 [facility] 33353-291-41 4Result Comment: [08/20/2017] [facility] 34733-470-57 5Admin Note: VIM dated 01/29/12 GIVEN TODAY 6Result Comment: [facility]# [id number] 7Admin Note: VIM dated 08/22/11 GIVEN TODAY 8Result Comment: [facility]#[id number] Medications acetaminophen 500 mg oral capsule 2 [...] 1 Refills, Soft Stop, 12/06/23 17:28:00 EDT, [facility]/pharmacy #5, Partial fill upon patient request [...] 05/17/23 16:45:00 EDT, Route to Pharmacy Electronically, [facility]/pharmacy #2024, Partial fill upon patient request if the presc... Start Date: 05/17/23 Stop Date: 05/17/24 Status: Ordered diclofenac 1% topical gel See Instructions, APPLY TO AFFECTED AREA 4 TIMES A DAY, # 100 Gm, 1 Refills, Maintenance, 11/07/23 7:48:00 EDT, [facility]/pharmacy #2024, 25, APPLY TO AFFECTED AREA 4 TIMES A DAY, 157.5, cm, 10/18/23 15:15:00 EDT, Height, 145.9, kg, 05/22/23 7:39:00 EDT, . Start Date: 11/07/23 Status: Ordered diclofenac 1% topical gel See Instructions, APPLY TO AFFECTED AREA 4 TIMES A DAY. NOT COVERED, # 100 Gm, 1 Refills, Maintenance, 02/01/24 13:44:00 EDT, [facility], 30, APPLY TO AFFECTED AREA 4 TIMES [...] Gm, 0 Refills, Maintenance, 02/28/21 16:31:00 EDT, [place], [facility]/pharmacy #5, Partial fill upon patient request if the prescription is for... Start Date: 02/28/21 Status: Ordered FLUoxetine 10 mg oral capsule 1, capsule, By Mouth, Daily, INSTR:TO BE TAKEN WITH 20MG CAPSULES TO EQUAL 30MG DAILY, # 90 capsule, Refills 1, Maintenance, 01/25/24 9:11:00 EDT, Route to Pharmacy Electronically, [facility], 157.5, cm, 01/22/24 10:31:00 EDT, Height, 145.9, kg,... Start Date: 01/25/24 Status: Ordered gabapentin 300 mg oral capsule 600 mg, 2, capsule, By Mouth, 3 times a day, # 180 capsule, Refills 3, Tot. Refills 3, Maintenance,08/25/22 22:35:00 EST, Route to Pharmacy Electronically, [facility]/pharmacy #2024, Partial fill upon patient request [...] Refills, Maintenance, 12/28/23 16:17:00 EDT, [facility], 157.5, cm, 10/18/23 15:15:00 EDT, Height, 145.9, kg, 05/22/23 7:39:00 EDT, Dry Weight Start Date: 12/28/23 Status: Ordered meclizine 25 mg oral tablet See Instructions, PRN Dizziness, 1 tablet By Mouth 3 times a day, # 30 tablet, 0 Refills, Maintenance, 02/27/23 10:43:00 EDT, [facility]/pharmacy #2025, Partial fill upon patient request [...] tablet, 0 Refills, Maintenance, 11/29/23 15:24:00 EDT, [facility]/pharmacy #2025, 157.5, cm, 10/18/23 1... Start [...] Code MRI Safety Implantable Status Assigning Authority [id number] Unknown [id number] Unknown 08/26/24 Unknown Unknown Active GS1 Patient Care team information Care Team Personnel Name: Celestina Trinidad MD Position: [facility] Physician - Primary Care Member Role: PCP Address: Address: [address] [place] [address] Name: Hemalatha Lucas RN Position: [facility] RN Member Role: Primary Care Nurse Name: Lauren Mack RN Position: [facility] AMB Nurse Member Role: Primary Care Nurse Name: Madelaine Ruiz RN Position: [facility] RN Member Role: Primary Care Nurse Name: Lora Santiago RN Position: [facility] SN RN Member Role: Primary Care Nurse Name: Mayco Ro RN Position: [facility] RN Member Role: Primary Care Nurse Name: Heydi Potts RN Position: [facility] SN RN Member Role: Primary Care Nurse Name: Janice Romano LPN Position: [facility] RN Member Role: Primary Care Nurse Name: Nadya Low RN Position: [facility] RN Member Role: Primary Care Nurse Name: Mirna Greenfield RN Position: [facility] RN Member Role: Primary Care Nurse Name: Nessa Bonilla RN Position: [facility] Hospital Industrial Technician Member Role: Primary Care Nurse Care Team Related Persons Name: DINESH SARGENT Address: [address] [place] [address] Name: BON DE Address: home [address] [place] [address]
--- OUTSIDE RECORDS SUMMARY | 2024-06-24 14:20 | XMS_ITS | Continuity of Care Document ---
Author Organization [facility] Address [address] [place] [address]- Care Team Providers Care Agitator Operator Name Role Phone Celestina Trinidad MD Primary Care Physician Encounter [facility] Date(s): 10/24/23 - 11/23/23 [facility] [address] [place] [address]- Allergies, Adverse Reactions, Alerts No Known Allergies [...] 08/21/22 Given tetanus/diphtheria/pertussis, acel(Tdap) 7 08/13/12 Given [id number]-[id number] 12y+ bivalent booster vax 06/14/22 Recorded SARS-CoV-2 mRNA (rdlgupt-vmeo-vvpuc) vax 02/14/22 Recorded SARS-CoV-2 (COVID-19) mRNA BNT-162b2 vac 05/06/21 Given SARS-CoV-2 (COVID-19) mRNA BNT-162b2 vac 11/04/20 Recorded SARS-CoV-2 (COVID-19) mRNA BNT-162b2 vac 10/14/20 Recorded pneumococcal 23-valent vaccine 8 04/07/19 Given 1Result Comment: screening negative 2Result Comment: [facility]# [id number] 3Result Comment: [05/25/2018] [facility] lot number [id number] exp 01/26/[address] [facility] 28173-551-76 4Result Comment: [08/20/2017] [facility] 46229-702-48 5Admin Note: VIM dated 01/29/12 GIVEN TODAY 6Result Comment: [facility]# [id number] 7Admin Note: VIM dated 08/22/11 GIVEN TODAY 8Result Comment: [facility]#[id number] Medications acetaminophen 500 mg oral capsule 2 [...] 05/17/23 16:45:00 EDT, Route to Pharmacy Electronically, [facility]/pharmacy #2024, Partial fill upon patient request [...] Gm, 0 Refills, Maintenance, 02/28/21 16:31:00 EDT, [place], Partial fill upon patient request [...] [facility], cm, 07/13/23 9:57:00 EST, Height, 145.9, kg, 05/22/23 7:39:00 EDT, Dry Weight Start Date: 07/31/23 Status: Ordered gabapentin 300 mg oral capsule 600 mg, 2, capsule, By Mouth, 3 times a day, # 180 capsule, Refills 3, Tot. Refills 3, Maintenance,08/25/22 22:35:00 EST, [facility]ically[facility] Partial fill upon patient request [...] tablet, 0 Refills, Maintenance, 10/12/23 6:42:00 EDT, [facility]/pharmacy #2024, 157.5, cm, 07/13/23 9:57:00 EST, Height, 145.9, kg, 05/22/23 7:39:00 EDT, Dry Weight Start Date: 10/12/23 Status: Ordered meclizine 25 mg oral tablet See Instructions, PRN Dizziness, 1 tablet By Mouth 3 times a day, # 30 tablet, 0 Refills, Maintenance, 02/27/23 10:43:00 EDT, [facility]/pharmacy #2024, Partial fill upon patient request if the prescriptionis for a schedule II opioid drug., 157, cm, ... Start Date: 02/27/23 Status: Ordered meloxicam 15 mg oral tablet See Instructions, TAKE 1 TABLET BY MOUTH DAILY WITH FOOD., # 30 tablet, 5 Refills, Maintenance, 10/08/23 17:05:00 EDT, [facility]/pharmacy #2024, 157.5, cm, 07/13/23 9:57:00 EST, Height, 145.9, kg, :39:00 EDT, Dry Weight Start Date: 10/08/23 Status: Ordered metFORMIN 500 mg oral tablet, extended release 1 tablet = 500 mg, By Mouth, Daily, # 90 tablet, 1 Refills, Maintenance, 10/24/23 11:39:00 EDT, ER Tablet, [facility]/pharmacy #2024, Partial fill upon patient request [...] tablet, 0 Refills, Maintenance, 11/05/23 16:28:00 EDT, [facility]/pharmacy #2025, Partial fill upon patient request [...] Code MRI Safety Implantable Status Assigning Authority [id number] Unknown [id number] Unknown 08/26/24 Unknown Unknown Active GS1 Patient Care team information Care Team Personnel Name: Celestina Trinidad MD Position: S Physician - Primary Care Member Role: PCP Address: Address: [address] [place] [address] Name: Hemalatha Lucas RN Position: [facility] RN Member Role: Primary Care Nurse Name: Lauren Mack RN Position: [facility] AMB Nurse Member Role: Primary Care Nurse Name: Madelaine Ruiz RN Position: [facility] RN Member Role: Primary Care Nurse Name: Lora Santiago RN Position: [facility] SN RN Member Role: Primary Care Nurse Name: Mayco Ro RN Position: [facility] RN Member Role: Primary Care Nurse Name: Heydi Potts RN Position: [facility] SN RN Member Role: Primary Care Nurse Name: Janice Romano LPN Position: [facility] RN Member Role: Primary Care Nurse Name: Nadya Low RN Position: [facility] RN Member Role: Primary Care Nurse Name: Mirna Greenfield RN Position: [facility] RN Member Role: Primary Care Nurse Name: Nessa Bonilla RN Position: [facility] [employer] Manager Member Role: Primary Care Nurse Care Team Related Persons Name: DINESH SARGENT Address: home [address] [place] [address] Name: BON DE Address: home [address] [place] [address]
--- OUTSIDE RECORDS SUMMARY | 2024-06-24 14:20 | XMS_ITS | Continuity of Care Document ---
Author Organization [facility] Address [address] [place] [address]- Care Team Providers Care Customer Sales Consultant Name Role Phone Vivi HENNING, Celestina Givens Primary Care Physician Encounter [facility] Date(s): 12/11/23 - 01/10/24 [facility] [address] [place] [address]- Allergies, Adverse Reactions, Alerts No Known Allergies [...] 08/21/22 Given tetanus/diphtheria/pertussis, acel(Tdap) 7 08/13/12 Given VDMA-KrD-3zVWI 12y+ bivalent booster vax 06/14/22 Recorded SARS-CoV-2 mRNA (urjiewq-xshs-ujuym) vax 02/14/22 Recorded SARS-CoV-2 (COVID-19) mRNA BNT-162b2 vac 05/06/21 Given SARS-CoV-2 (COVID-19) mRNA BNT-162b2 vac 11/04/20 Recorded SARS-CoV-2 (COVID-19) mRNA BNT-162b2 vac 10/14/20 Recorded pneumococcal 23-valent vaccine 8 04/07/19 Given 1Result Comment: screening negative 2Result Comment: [facility]# [id number] 3Result Comment: [05/25/2018] seq[employer] lot number [id number] exp 01/26/[address] [facility] [id number] 4Result Comment: [08/20/2017] [facility] [id number] 5Admin Note: VIM dated 01/29/12 GIVEN TODAY 6Result Comment: [facility]# [id number] 7Admin Note: VIM dated 08/22/11 GIVEN TODAY 8Result Comment: [facility]#[id number] Medications acetaminophen 500 mg oral capsule 2 [...] 1 Refills, Soft Stop, 12/06/23 17:28:00 EDT, [facility]/pharmacy #5, Partial fill upon [...] 05/17/23 16:45:00 EDT, Route to Pharmacy Electronically, [facility]/pharmacy #2024, Partial fill upon patient request if the presc... Start Date: 05/17/23 Stop Date: 05/17/24 Status: Ordered diclofenac 1% topical gel See Instructions, APPLY TO AFFECTED AREA 4 TIMES A DAY, # 100 Gm, 1 Refills, Maintenance, 11/07/23 7:48:00 EDT, [facility]/pharmacy #2024, 25, APPLY TO [...] Gm, 0 Refills, Maintenance, 02/28/21 16:31:00 EDT, [place], [facility]/pharmacy #2024, Partial fill upon patient request if the prescription is for... Start Date: 02/28/21 Status: Ordered FLUoxetine 10 mg oral capsule 10 mg, 1, capsule, By Mouth, Daily, to be taken with 20mg capsules to equal 30mg daily, # 90 capsule, Refills 1, Tot. Refills 1, Maintenance, 07/31/23 19:01:00 EST, Route to Pharmacy Electronically, [facility]/pharmacy #2024, Partial fill upon patient reques... Start Date: 07/31/23 Status: Ordered FLUoxetine 20 mg oral capsule 1, capsule, By Mouth, Daily, # 90 capsule, Refills 1, Tot. Refills 1, Maintenance, 07/31/23 19:01:00 EST, Route to Pharmacy Electronically, [facility]/pharmacy #2024, 157.5, cm, 07/13/23 9:57:00 EST, Height, 145.9, kg, 05/22/23 7:39:00 EDT, Dry Weight Start Date: 07/31/23 Status: Ordered gabapentin 300 mg oral capsule 600 mg, 2, capsule, By Mouth, 3 times a day, # 180 capsule, Refills 3, Tot. Refills 3, Maintenance,08/25/22 22:35:00 EST, Route to Pharmacy Electronically, [facility]/pharmacy #2024, Partial fill upon [...] tablet, 1 Refills, Maintenance, 12/28/23 16:17:00 EDT, [facility] STORE 30249, 157.5, cm, 10/18/23 15:15:00 EDT, Height, 145.9, kg, 05/22/23 7:39:00 EDT, Dry Weight Start Date: 12/28/23 Status: Ordered meclizine 25 mg oral tablet See Instructions, PRN Dizziness, 1 tablet By Mouth 3 times a day, # 30 tablet, 0 Refills, Maintenance, 02/27/23 10:43:00 EDT, [facility]/pharmacy #2025, Partial fill upon [...] Refills, Maintenance, 10/24/23 11:39:00 EDT, ER Tablet, [facility]/pharmacy #2025, Partial fill upon [...] Code MRI Safety Implantable Status Assigning Authority [id number] Unknown [id number] Unknown 08/26/24 Unknown Unknown Active GS1 Patient Care team information Care Team Personnel Name: Celestina Trinidad MD Position: [facility] Physician - Primary Care Member Role: PCP Address: Address: [address] [place] [address] Name: Hemalatha Lucas RN Position: [facility] RN Member Role: Primary Care Nurse Name: Lauren Mack RN Position: [facility] AMB Nurse Member Role: Primary Care Nurse Name: Madelaine Ruiz RN Position: [facility] RN Member Role: Primary Care Nurse Name: Lora Santiago RN Position: [facility] SN RN Member Role: Primary Care Nurse Name: Mayco Ro RN Position: [facility] RN Member Role: Primary Care Nurse Name: Heydi Potts RN Position: [facility] SN RN Member Role: Primary Care Nurse Name: Janice Romano LPN Position: [facility] RN Member Role: Primary Care Nurse Name: Nadya Low RN Position: [facility] RN Member Role: Primary Care Nurse Name: Mirna Greenfield RN Position: [facility] RN Member Role: Primary Care Nurse Name: Nessa Bonilla RN Position: [facility] Dye Box Operator Member Role: Primary Care Nurse Care Team Related Persons Name: DINESH SARGENT Address: home [address] [place] [address] Name: BON DE Address: home [address] [address]
--- OUTSIDE RECORDS SUMMARY | 2024-06-24 14:20 | XMS_ITS | Continuity of Care Document ---
Author Organization [facility] Address [address] [place] [address]- Care Team Providers Care Civil Manager Name Role Phone Kareen HENNING, Patrick Graham Primary Care Physician Encounter [facility] Date(s): 11/25/19 - 12/25/19 [facility] [address] [place] [address]- [facility] Attending Physician: Calixto Beltran Admitting Physician: AdmCalixto [...] acel(Tdap) 6 08/13/12 Given 1Result Comment: [facility]# [id number] 2Result Comment: [05/25/2018] [employer] lot number [id number] exp 01/26/2019 [facility] [id number] 3Result Comment: [08/20/2017] [facility] [id number] 4Admin Note: VIM dated 01/29/12 GIVEN TODAY 5Result Comment: [facility]#[id number] 6Admin Note: VIM dated 08/22/11 GIVEN TODAY [...] 0 Refills, Maintenance, 08/22/19 12:32:00 EST, Gel, [facility]/pharmacy #2024, 161, cm, 08/12/19 [...] 2 Refills, Maintenance, 10/06/19 15:04:00 EDT, Tablet, [facility]/pharmacy #2024, Labs needed for further refills, 161, cm, 08/12/19 12:43:00 EST, Height Start Date: 10/06/19 Status: Ordered tiZANidine 2 mg oral tablet 2 mg, 1, tablet, By Mouth, Daily at bedtime, PRN, # 14 tablet, Refills 0, Tot. Refills 0, Maintenance, as needed for muscle spasm, 08/04/19 17:54:00 EST, Route to Pharmacy Electronically, [facility]/pharmacy #5, 161, cm, 08/04/19 14:44:00 EST, Height Start Date: 08/04/19 Stop Date: 08/18/19 Status: Ordered traMADol 50 mg oral tablet 2 tablet = 100 mg, By Mouth, Every 12 hours, as needed for pain masspat checked, # 120 tablet, 2 Refills, Maintenance, 11/04/19 6:31:00 EDT, [facility], 161, cm, 10/07/19 9:57:00 EDT, Height [...]
--- OUTSIDE RECORDS SUMMARY | 2024-06-24 14:20 | XMS_ITS | Continuity of Care Document ---
Author Organization [facility] Address [address] [place] [address]- Care Team Providers Care Production Supervisor Name Role Phone Vivi HENNING, Celestina Givens Primary Care Physician [place] [facility] Date(s): 03/14/23 - 03/21/23 [facility] [address] [place] [address]- Encounter Diagnosis Breast pain, left(Discharge Diagnosis) - 03/14/23 Hernia, umbilical(Discharge Diagnosis) - 03/14/23 Obstructive sleep apnea on CPAP(Discharge Diagnosis) - 03/14/23 Attending Physician: Not on Staff, Attending MD Allergies, Adverse Reactions, Alerts No Known Allergies Immunizations Given and Recorded Vaccine Date Status Refusal Reason tetanus/diphtheria/pertussis, acel(Tdap) 1 08/21/22 Given tetanus/diphtheria/pertussis, acel(Tdap) 2 08/13/12 Given IJJK-PbO-1iLRL 12y+ bivalent booster vax 06/14/22 Recorded influenza [...] inactivated 6 07/31/12 Gi hali SARS-CoV-2 mRNA (urncqsk-ymql-evcpa) vax 02/14/22 Recorded SARS-CoV-2 (COVID-19) mRNA BNT-162b2 vac 05/06/21 Given SARS-CoV-2 (COVID-19) mRNA BNT-162b2 vac 11/04/20 Recorded SARS-CoV-2 (COVID-19) mRNA BNT-162b2 vac 10/14/20 Recorded pneumococcal 23-valent vaccine 7 04/07/19 Given 1Result Comment: [facility]# [id number] 2Admin Note: VIM dated 08/22/11 GIVEN TODAY 3Result Comment: [facility]# [id number] 4Result Comment: [05/25/2018] [employer] lot number [id number] exp 01/26/2019 [facility] [id number] 5Result Comment: [08/20/2017] [facility] 52329-437-44 6Admin Note: VIM dated 01/29/12 GIVEN TODAY 7Result Comment: [facility]#[id number] Medications acetaminophen 500 mg oral capsule 2 [...] Stop, 04/10/2215:14:00 EDT, Route to Pharmacy Electronically, [id number], [facility]/pharmacy #2025, 158, cm, [...] 100 Gm, 1 Refills, Maintenance, 01/08/23 9:36:00EDT, [facility] STORE 37729, 50, APPLY TOPICALLY 4 TIMES A DAY, [...] Gm, 0 Refills, Maintenance, 02/28/21 16:31:00 EDT, [place], [facility]/pharmacy #2025, Partial fill upon patient request if the prescription is for... Start Date: 02/28/21 Status: Ordered FLUoxetine 10 mg oral capsule 10 mg, 1, capsule, By Mouth, Daily, to be taken with 20mg capsules to equal 30mg daily, # 90 capsule, Refills 0, Tot. Refills 0, Maintenance, 01/18/23 9:13:00 EDT, Route to Pharmacy Electronically, [facility]/pharmacy #8915, Partial fill upon patient request... Start [...] 7:25:00 EDT, [facility] STORE 02004, 157, cm, 12/08/22 14:27:00 EDT, Height, 145, [...] 9:28:00 EDT, [facility] STORE 17083, 157, cm, 12/08/22 14:27:00 EDT, Height, 145, [...] 0 Refills, Maintenance, 02/20/23 17:17:00 EDT, [facility], 157, cm, 12/08/2313:27:00 EDT, Height, 145, [...] Effective Dates Health Status Clinical Service Informant Breast pain, left Discharge Diagnosis 03/14/23 Hernia, umbilical Discharge Diagnosis 03/14/23 Obstructive sleep apnea on CPAP Discharge Diagnosis 03/14/23 Vital Signs Most recent to oldest [Reference Range]: 1 Height 157 cm (03/14/23 11:02 AM) Pulse Rate [55-90 bpm] 72 bpm (03/14/23 11:02 AM) Blood Pressure [90-138/55-84 mm Hg] 120/ 82mm Hg (03/14/23 11:02 AM) Social History Social History Type Response Smoking Status Former smoker, quit more than 30 days ago; Other: smoked up to pack a day x 25 years; entered on: 11/14/21 Sex Patient Care team information Care Team Personnel Name: Celestina Trinidad MD Position: [facility] Physician - Primary Care Member Role: PCP Address: Address: [address] [place] [id number] Name: Hemalatha Lucas RN Position: [facility] [...] Nessa Bonilla RN Position: [facility] Machine Farmworker Member Role: Primary Care Nurse Care Team Related Persons Name: DINESH SARGENT Address: home [address] [place] [address] Name: BON DE Address: [address] [address]
--- OUTSIDE RECORDS SUMMARY | 2024-06-24 14:20 | XMS_ITS | Continuity of Care Document ---
Author Organization [facility] Address [address] [place] [address]- Care Team Providers Care Racecar Driver Name Role Phone Vivi HENNING, Celestina Givens Primary Care Physician Encounter [facility] Date(s): 02/01/24 - 03/02/24 [facility] [address] [place] [address]- Allergies, Adverse Reactions, Alerts No Known Allergies [...] 08/21/22 Given tetanus/diphtheria/pertussis, acel(Tdap) 7 08/13/12 Given [id number]-JuE-0bFKP 12y+ bivalent booster vax 06/14/22 Recorded SARS-CoV-2 mRNA (telcixh-gckp-dvanu) vax 02/14/22 Recorded SARS-CoV-2 (COVID-19) mRNA BNT-162b2 vac 05/06/21 Given SARS-CoV-2 (COVID-19) mRNA BNT-162b2 vac 11/04/20 Recorded SARS-CoV-2 (COVID-19) mRNA BNT-162b2 vac 10/14/20 Recorded pneumococcal 23-valent vaccine 8 04/07/19 Given 1Result Comment: screening negative 2Result Comment: [facility]# [id number] 3Result Comment: [05/25/2018] [facility] lot number [id number] exp 01/26/2019 [facility] [id number] 4Result Comment: [08/20/2017] [facility] [id number] 5Admin Note: VIM dated 01/29/12 GIVEN TODAY 6Result Comment: [facility]# [id number] 7Admin Note: VIM dated 08/22/11 GIVEN TODAY 8Result Comment: [facility]#[id number] Medications acetaminophen 500 mg oral capsule 2 [...] 1 Refills, Soft Stop, 12/06/23 17:28:00 EDT, [facility]/pharmacy #5, Partial fill upon [...] Refills, Maintenance, 02/01/24 13:44:00 EDT, [facility], 30, APPLY TO AFFECTED AREA 4 TIMES [...] Gm, 0 Refills, Maintenance, 02/28/21 16:31:00 EDT, [place], [facility]/pharmacy #5, Partial fill upon patient request if the prescription is for... Start Date: 02/28/21 Status: Ordered FLUoxetine 10 mg oral capsule 1, capsule, By Mouth, Daily, INSTR:TO BE TAKEN WITH 20MG CAPSULES TO EQUAL 30MG DAILY, # 90 capsule, Refills 1, Maintenance, 01/25/24 9:11:00 EDT, Route to Pharmacy Electronically, [facility], 157.5, cm, 01/22/24 10:31:00 EDT, Height, 145.9, [...] Refills, Maintenance, 12/28/23 16:17:00 EDT, [facility], 157.5, cm, 10/18/23 15:15:00 EDT, Height, 145.9, kg, 05/22/23 7:39:00 EDT, Dry Weight Start Date: 12/28/23 Status: Ordered meclizine 25 mg oral tablet See Instructions, PRN Dizziness, 1 tablet By Mouth 3 times a day, # 30 tablet, 0 Refills, Maintenance, 02/27/23 10:43:00 EDT, [facility]/pharmacy #2025, Partial [...] tablet, 0 Refills, Maintenance, 11/29/23 15:24:00 EDT, [facility]/pharmacy #2025, 157.5, cm, 10/18/23 [...] Code MRI Safety Implantable Status Assigning Authority [id number] Unknown [id number] Unknown 08/26/24 Unknown Unknown Active GS1 Patient Care team information Care Team Personnel Name: Celestina Trinidad MD Position: [facility] Physician - Primary Care Member Role: PCP Address: Address: [address] [place] [address] Name: Hemalatha Lucas RN Position: [facility] [...] Member Role: Primary Care Nurse Name: Mirna Greenfiled RN Position: [facility] RN Member Role: Primary Care Nurse Name: Nessa Bonilla RN Position: [facility] Hospital Glass Melt Operator Member Role: Primary Care Nurse Care Team Related Persons Name: DINESH SARGENT Address: [address] [place] [address] Name: BON DE Address: home [address] [place] [address]
--- OUTSIDE RECORDS SUMMARY | 2024-06-24 14:21 | XMS_ITS | Continuity of Care Document ---
Author Organization [facility] Address [address] [place] [address]- Care Team Providers Care Boiler Attendant Name Role Phone Vivi HENNING, Celestina Givens Primary Care Physician Encounter [facility] Date(s): 05/01/23 - 05/31/23 [facility] [address] [place] [address]- Allergies, Adverse Reactions, Alerts No Known Allergies Immunizations Given and Recorded Vaccine Date Status Refusal Reason tetanus/diphtheria/pertussis, acel(Tdap) 1 08/21/22 Given tetanus/diphtheria/pertussis, acel(Tdap) 2 08/13/12 Given [id number]-MdM-4bZGM 12y+ bivalent booster vax 06/14/22 Recorded influenza [...] inactivated 6 07/31/12 Gi hali SARS-CoV-2 mRNA (kwhbhkj-kwmp-ghqiw) vax 02/14/22 Recorded SARS-CoV-2 (COVID-19) mRNA BNT-162b2 vac 05/06/21 Given SARS-CoV-2 (COVID-19) mRNA BNT-162b2 vac 11/04/20 Recorded SARS-CoV-2 (COVID-19) mRNA BNT-162b2 vac 10/14/20 Recorded pneumococcal 23-valent vaccine 7 04/07/19 Given 1Result Comment: [facility]# [id number] 2Admin Note: VIM dated 08/22/11 GIVEN TODAY 3Result Comment: [facility]# [id number] 4Result Comment: [05/25/2018] [facility] lot number [id number] exp 01/26/2019 [facility] [id number] 5Result Comment: [08/20/2017] [facility] [id number] 6Admin Note: VIM dated 01/29/12 GIVEN TODAY 7Result Comment: [facility]#[id number] Medications acetaminophen 500 mg oral capsule 2 [...] Stop, 04/10/2215:14:00 EDT, Route to Pharmacy Electronically, [id number], [facility]/pharmacy #2025, 158, cm, 04/10/22 [...] 100 Gm, 1 Refills, Maintenance, 01/08/23 9:36:00EDT, [facility] STORE 17798, 50, APPLY TOPICALLY 4 TIMES A DAY, [...] Gm, 0 Refills, Maintenance, 02/28/21 16:31:00 EDT, [place], [facility]/pharmacy #5, Partial fill upon patient request if the prescription is for... Start Date: 02/28/21 Status: Ordered FLUoxetine 10 mg oral capsule 10 mg, 1, capsule, By Mouth, Daily, to be taken with 20mg capsules to equal 30mg daily, # 90 capsule, Refills 1, Tot. Refills 1, Maintenance, 04/03/23 11:25:00 EDT, Route to Pharmacy Electronically, [facility]/pharmacy #2024, Partial fill upon patient reques... Start Date: 04/03/23 Status: Ordered FLUoxetine 20 mg oral capsule 1, capsule, By Mouth, Daily, # 90 capsule, Refills 1, Tot. Refills 1, Maintenance, 04/03/23 11:23:00 EDT, Route to Pharmacy Electronically, [facility]/pharmacy #2024, 157, cm, 03/14/23 11:02:00 EDT, Height,145, [...] tablet, 2 Refills, Maintenance, 02/27/23 7:25:00 EDT, [facility] STORE 82224, 157, cm, 12/08/22 14:27:00 EDT, Height, 145, kg, 08/29/22 20:13:00 EST, Dry... Start Date: 02/27/23 Status: Ordered meclizine 25 mg oral tablet See Instructions, PRN Dizziness, 1 tablet By Mouth 3 times a day, # 30 tablet, 0 Refills, Maintenance, 02/27/23 10:43:00 EDT, [facility]/pharmacy #2024, Partial fill upon patient request if the prescriptionis for a schedule II opioid drug., 157, cm, ... Start Date: 02/27/23 Status: Ordered meloxicam 15 mg oral tablet See Instructions, TAKE 1 TABLET BY MOUTH DAILY WITH FOOD. LABS NEEDED FOR FURTHER REFILLS, # 30 tablet, 1 Refills, Maintenance, 05/01/23 14:45:00 EDT, [facility]/pharmacy #2024, 157, cm, 03/14/23 11:02:00 EDT, Height, 145, kg, 08/29/22 20:13:00 EST, Dry Weight Start Date: 05/01/23 Status: Ordered oxyCODONE 5 mg oral tablet 5 mg, 1, tablet, By Mouth, Every 4 hours, PRN, you may filll this prescription for fewer pills. Edward reviewed, # 20 tablet, Refills 0, Tot. Refills 0, Maintenance, Pain , Severe, 05/22/23 9:10:00 EDT, Route to Pharmacy Electronically, [facility]/pharmacy... Start Date: 05/22/23 Status: Ordered Splint See [...] holliday, # 81 tablet, 0 Refills, Maintenance, 05/14/23 [...] Code MRI Safety Implantable Status Assigning Authority [id number] Unknown [id number] Unknown 08/26/24 Unknown Unknown Active GS1 Patient Care team information Care Team Personnel Name: Celestina Trinidad MD Position: [facility] Physician - Primary Care Member Role: PCP Address: Address: [address] [place] [id number] Name: Hemalatha Lucas RN Position: [facility] RN Member Role: Primary Care Nurse Name: Lauren Mack RN Position: [facility] AMB Nurse Member Role: Primary Care Nurse Name: Madelaine Ruiz RN Position: [facility] RN Member Role: Primary Care Nurse Name: Lora Santiago RN Position: [facility] SN RN Member Role: Primary Care Nurse Name: Mayco Ro RN Position: [facility] RN Member Role: Primary Care Nurse Name: Heydi Potts RN Position: [facility] RN Member Role: Primary Care Nurse Name: Janice Romano LPN Position: [facility] RN Member Role: Primary Care Nurse Name: Nadya Low RN Position: [facility] RN Member Role: Primary Care Nurse Name: Mirna Greenfield RN Position: [facility] RN Member Role: Primary Care Nurse Name: Nessa Bonilla RN Position: [facility] Livestock Counter Member Role: Primary Care Nurse Care Team Related Persons Name: DINESH SARGENT Address: home [address] [place] [address] Name: BON DE Address: home [address] [address]
--- OUTSIDE RECORDS SUMMARY | 2024-06-24 14:21 | XMS_ITS | Continuity of Care Document ---
Author Organization [facility] Address [address] [place] [address]- Care Team Providers Care Experimental Mechanic Name Role Phone Vivi HENNING, Celestina Givens Primary Care Physician [facility]24 [facility] [address] [place] [address]- Allergies, Adverse Reactions, Alerts No Known Allergies [...] 08/21/22 Given tetanus/diphtheria/pertussis, acel(Tdap) 7 08/13/12 Given MWZA-WsA-7oQLS 12y+ bivalent booster vax 06/14/22 Recorded SARS-CoV-2 mRNA (axkrjjf-rked-jrtvj) vax 02/14/22 Recorded SARS-CoV-2 (COVID-19) mRNA BNT-162b2 vac 05/06/21 Given SARS-CoV-2 (COVID-19) mRNA BNT-162b2 vac 11/04/20 Recorded SARS-CoV-2 (COVID-19) mRNA BNT-162b2 vac 10/14/20 Recorded pneumococcal 23-valent vaccine 8 04/07/19 Given 1Result Comment: screening negative 2Result Comment: [facility]# [id number] 3Result Comment: [05/25/2018] [employer] lot number [id number] exp 01/26/2019 [facility] 87448-893-89 4Result Comment: [08/20/2017] [facility] [phone] 5Admin Note: VIM dated 01/29/12 GIVEN TODAY 6Result Comment: [facility]# [id number] 7Admin Note: VIM dated 08/22/11 GIVEN TODAY 8Result Comment: [facility]#[id number] Medications acetaminophen 500 mg oral capsule 2 [...] 1 Refills, Soft Stop, 12/06/23 17:28:00 EDT, [facility]/pharmacy #5, Partial fill upon patient request [...] 05/17/24 16:46:00 EDT, Route to Pharmacy Electronically, [facility]/pharmacy #202, Partial fill upon patient request if the prescription is for a... Start Date: 05/17/24 Status: Ordered diclofenac 1% topical gel See Instructions, APPLY TO AFFECTED AREA 4 TIMES A DAY. NOT COVERED, # 100 Gm, 1 Refills, Maintenance, 04/22/24 15:15:00 EDT, [facility]/pharmacy #2024, 30, APPLY TO AFFECTED AREA 4 TIMES A DAY. NOT COVERED, 157.5, cm, 02/12/24 14:48:00 EDT, Height, 145.9, k... Start Date: 04/22/24 Status: Ordered diclofenac 1% topical gel See Instructions, APPLY TO AFFECTED AREA 4 TIMES A DAY, # 100 Gm, 1 Refills, Maintenance, 11/07/23 7:48:00 EDT, [facility]/pharmacy #2024, 25, APPLY TO AFFECTED AREA [...] Gm, 0 Refills, Maintenance, 02/28/21 16:31:00 EDT, [place], [facility]/pharmacy #2025, Partial fill upon patient request if the prescription is for... Start Date: 02/28/21 Status: Ordered FLUoxetine 10 mg oral capsule 1, capsule, By Mouth, Daily, INSTR:TO BE TAKEN WITH 20MG CAPSULES TO EQUAL 30MG DAILY, # 90 capsule, Refills 1, Maintenance, 01/25/24 9:11:00 EDT, Route to Pharmacy Electronically, [facility], 157.5, cm, 01/22/24 10:31:00 EDT, Height, 145.9, kg,... Start Date: 01/25/24 Status: Ordered gabapentin 300 mg oral capsule 600 mg, 2, capsule, By Mouth, 3 times a day, # 180 capsule, Refills 3, Tot. Refills 3, Maintenance,08/25/22 22:35:00 EST, Route to Pharmacy Electronically, [facility]/pharmacy #202, Partial fill upon patient request [...] tablet, 1 Refills, Maintenance, 12/28/23 16:17:00 EDT, [facility], 157.5, cm, 10/18/23 15:15:00 EDT, Height, 145.9, [...] Code MRI Safety Implantable Status Assigning Authority [id number] Unknown [id number] Unknown 08/26/24 Unknown Unknown Active GS1 Patient Care team information Care Team Personnel Name: Celestina Trinidad MD Position: [facility] Physician - Primary Care Member Role: PCP Address: Address: [address] [place] [address] Name: Hemalatha Lucas RN Position: [facility] RN Member Role: Primary Care Nurse Name: Lauren Mack RN Position: [facility] RN Member Role: Primary Care Nurse Name: Madelaine Ruiz RN Position: [facility] RN Member Role: Primary Care Nurse Name: Lora Santiago RN Position: [facility] SN RN Member Role: Primary Care Nurse Name: Mayco Ro RN Position: [facility] RN Member Role: Primary Care Nurse Name: Heydi Potts RN Position: [facility] SN RN Member Role: Primary Care Nurse Name: Janice Romano LPN Position: [facility] RN Member Role: Primary Care Nurse Name: Nadya Low RN Position: [facility] RN Member Role: Primary Care Nurse Name: Mirna Greenfield RN Position: [facility] RN Member Role: Primary Care Nurse Name: Nessa Bonilla RN Position: [facility] Transcriber Member Role: Primary Care Nurse Care Team Related Persons Name: ROSETTA, DINESH Address: [address] [place] [address] Name: BON DE Address: home [address] [address]
--- OUTSIDE RECORDS SUMMARY | 2024-06-24 14:21 | XMS_ITS | Continuity of Care Document ---
Author Organization [facility] Address [address] [place] [address]- Care Team Providers Care Equity Manager Name Role Phone Vivi HENNING, Celestina Givens Primary Care Physician [facility]23 - [facility]16/23 [facility] [address] [place], [place] [address] Allergies, Adverse Reactions, Alerts No Known [...] 08/21/22 Given tetanus/diphtheria/pertussis, acel(Tdap) 7 08/13/12 Given [id number]-FdD-2lGLD 12y+ bivalent booster vax 06/14/22 Recorded SARS-CoV-2 mRNA (vocueci-jydx-zytgx) vax 02/14/22 Recorded SARS-CoV-2 (COVID-19) mRNA BNT-162b2 vac 05/06/21 Given SARS-CoV-2 (COVID-19) mRNA BNT-162b2 vac 11/04/20 Recorded SARS-CoV-2 (COVID-19) mRNA BNT-162b2 vac 10/14/20 Recorded pneumococcal 23-valent vaccine 8 04/07/19 Given 1Result Comment: screening negative 2Result Comment: [facility]# [id number] 3Result Comment: [05/25/2018] [employer] lot number [id number] exp 01/26/2019 [facility] 97737-654-44 4Result Comment: [08/20/2017] [facility] [phone] 5Admin Note: VIM dated 01/29/12 GIVEN TODAY 6Result Comment: [facility]# [id number] 7Admin Note: VIM dated 08/22/11 GIVEN TODAY 8Result Comment: [facility]#[id number] Medications acetaminophen 500 mg oral capsule 2 [...] Gm, 0 Refills, Maintenance, 02/28/21 16:31:00 EDT, [place], Partial fill upon patient request [...] Pharmacy Electronically, [facility]/pharmacy #2025, Partial [...] tablet, 2 Refills, Maintenance, 02/27/23 7:25:00 EDT, [facility] STORE 67932, 157, cm, 12/08/22 14:27:00 EDT, Height, 145, kg, 08/29/22 20:13:00 EST, Dry... Start Date: 02/27/23 Status: Ordered levothyroxine 150 mcg (0.15 mg) oral tablet 1 tablet = 150 mcg, By Mouth, Daily, # 90 tablet, 0 Refills, Maintenance, 07/15/23 17:38:00 EST, Tablet, [facility]/pharmacy #2024, Partial fill upon patient [...] Code MRI Safety Implantable Status Assigning Authority [id number] Unknown [id number] Unknown 08/26/24 Unknown Unknown Active GS1 Patient Care team information Care Team Personnel Name: Celestina Trinidad MD Position: [facility] Physician - Primary Care Member Role: PCP Address: Address: [address] [place] [address] Name: Hemalatha Lucas RN Position: [facility] [...] Bonilla RN Position: [facility] Percussion Teacher Member Role: Primary Care Nurse Care Team Related Persons Name: DINESH SARGENT Address: home [address] [place] [address] Name: BON DE Address: home [address] [address]
--- OUTSIDE RECORDS SUMMARY | 2024-06-24 14:21 | XMS_ITS | Continuity of Care Document ---
Author Organization [facility] Address [address] [place] [address]- Care Team Providers Care Forming Roll Operator Name Role Phone Kareen HENNING, Patrick Graham Primary Care Physician [facility]20 - 03/19/20 [facility] [address] [place] [address] Allergies, Adverse Reactions, Alerts Substance Reaction Severity [...] 1Result Comment: [facility]# [id number] 2Result Comment: [05/25/2018] [employer] lot number [id number] exp 01/26/2019 [facility] [id number] 3Result Comment: [08/20/2017] [facility] [id number] 4Admin Note: VIM dated 01/29/12 GIVEN TODAY 5Result Comment: [facility]#[id number] 6Admin Note: VIM dated 08/22/11 GIVEN TODAY [...]
--- OUTSIDE RECORDS SUMMARY | 2024-06-24 14:21 | XMS_ITS | Continuity of Care Document ---
Author Organization [facility] Address [address] [place] [address]- Care Team Providers Care Liquified Natural Gas Technician Name Role Phone Noe DIRECTOR OF COUNTERINTELLIGENCE, Mónica Graham Primary Care Physician [facility]): 07/18[facility]21 - 08/17/21 [facility] [address] [place] [address]- Allergies, Adverse Reactions, Alerts No Known Allergies [...] Comment: [facility]# [id number] 2Result Comment: [05/25/2018] [employer] lot number [id number] exp 01/26/2019 [facility] [id number] 3Result Comment: [08/20/2017] [facility] [id number] 4Admin Note: VIM dated 01/29/12 GIVEN TODAY 5Result Comment: [facility]#[id number] 6Admin Note: VIM dated 08/22/11 GIVEN TODAY [...] 16:52:00 EST, [place], Route to Pharmacy Electronically, [id number], [facility]/pharmacy #2024, 160.02, cm, 07/25/21 16:20:00 EST, Heigh... [...] 07/25/21 16:53:00 EST, Route to Pharmacy Electronically, [id number], [facility], 160.02, cm, 07/25/21 16:20:00 EST, [...] Gm, 0 Refills, Maintenance, 02/28/21 16:31:00 EDT, [place], [facility]/pharmacy #202, Partial fill upon patient request if the prescription is for... Start Date: 02/28/21 Status: Ordered FLUoxetine 10 mg oral capsule 10 mg, 1, capsule, By Mouth, Daily, Take with 20mg capsule for total of 30mg daily, # 90 capsule, Refills 1, Tot. Refills 1, Maintenance, 05/04/21 16:44:00 EDT, Route to Pharmacy Electronically, [facility]/pharmacy #202, Partial fill upon patient request if... Start Date: 05/04/21 Status: Ordered FLUoxetine 20 mg oral capsule 20 mg, 1, capsule, By Mouth, Daily, Take with Fluoxetine 10mg for a total of 30mg, # 90 capsule, Refills 1, Tot. Refills 1, Maintenance, 05/04/21 16:44:00 EDT, Route to Pharmacy Electronically, [facility]/pharmacy #2024, replacing 10mg dose, 160.02, [...] Refills, Maintenance, 05/11/21 13:11:00 EDT, [facility]/pharmacy #202, Partial fill upon patient request if the prescriptionis for a schedule II opioid drug., 160.02, cm, 100... Start Date: 05/11/21 Status: Ordered meloxicam 15 mg oral tablet 1 tablet, By Mouth, Daily, WITH FOOD., # 30 tablet, 0 Refills, [facility] STORE 86243, 160.02, cm, 05/06/21 10:09:00 EDT, Height, 143, [...] EST, Route to Pharmacy Electronically, [facility]/pharmacy #2024, 161, cm, 08/04/19 14:44:00 EST, Height Start Date: 08/04/19 Stop Date: 08/18/19 Status: Ordered traMADol 50 mg oral tablet 2 tablet = 100 mg, By Mouth, Every 12 hours, as needed for pain masspat checked, # 112 tablet, 0 Refills, Maintenance, 07/20/21 17:37:00 EST, [facility]/pharmacy #2024, 160.02, cm, 07/13/21 15:00:00 EST, Height, 143, kg, 01/04/21 10:42:00 EDT, Dry Weight Start Date: 07/20/21 Stop Date: 08/17/21 Status: Ordered zolpidem 10 mg oral tablet 1 tablet = 10 mg, By Mouth, Daily at bedtime, PRN for sleep, for 30 days, masspat check may fill less, # 30 tablet, 3 Refills, Acute 09/08/21 13:11:00 EST, 05/11/21 13:11:00 EDT, Tablet, [facility]/pharmacy#202, 160.02, cm, 05/06/21 10:09:00 EDT, Height,... Start [...]
--- OUTSIDE RECORDS SUMMARY | 2024-06-24 14:21 | XMS_ITS | Continuity of Care Document ---
Author Organization [facility] Address [address] [place] [address]- Care Team Providers Care Malt House Kiln Operator Name Role Phone Patrick Mathur MD Primary Care Physician Encounter [facility] Date(s): 01/08/20 - 01/15/20 [facility] [address] [place] [address]- [place] Encounter Diagnosis Acquired hypothyroidism(Discharge Diagnosis) - 01/08/20 BMI 50.0-59.9, adult(Discharge Diagnosis) - 01/08/20 Attending Physician: Patrick Mathur MD Allergies, Adverse [...] 1Result Comment: [facility]# [id number] 2Result Comment: [05/25/2018] [facility] lot number [id number] exp 01/26/2019 [facility] 24091-842-90 3Result Comment: [08/20/2017] [facility] [id number] 4Admin Note: VIM dated 01/29/12 GIVEN TODAY 5Result Comment: [facility]#[id number] 6Admin Note: VIM dated 08/22/11 GIVEN TODAY [...] PUFFS EVERY 6 HOURS NEEDED FOR WHEEZE, [facility]/pharmacy #2024 Start Date: 05/27/19 Status: Ordered diclofenac 1% topical gel 1 applicator, Topically, 4 times a day, # 100 Gm, 0 Refills, Maintenance, 08/22/19 12:32:00 EST, Gel, [facility]/pharmacy #2024, 161, cm, 08/12/19 12:43:00 EST, Height Start Date: 08/22/19 Status: Ordered FLUoxetine 20 mg oral capsule 20 mg, 1, capsule, By Mouth, Daily, # 30 capsule, Refills 4, Tot. Refills 4, Maintenance, 08/30/19 20:34:00 EST, Route to Pharmacy Electronically, [facility]/pharmacy #2024, replacing 10mg dose, 161, cm, 08/12/19 12:43:00 EST, Height Start Date: 08/30/19 Status: Ordered levothyroxine 125 mcg (0.125 mg) oral tablet 1 tablet = 125 mcg, By Mouth, Daily, # 30 tablet, 5 Refills, Maintenance, 11/11/19 14:50:00 EDT, Tablet, [facility]/pharmacy #2024, 161, cm, 10/07/19 9:57:00 EDT, Height Start Date: 11/11/19 Status: Ordered meloxicam 15 mg oral tablet 1 tablet = 15 mg, By Mouth, Daily, Take w food., # 30 tablet, 1 Refills, Maintenance, 12/31/19 8:12:00 EDT, Tablet, [facility]/pharmacy #2024, Labs needed for further refills, [...] to Pharmacy Electronically, [facility]/pharmacy #5, 161, cm, 08/04/19 14:44:00 EST, Height Start Date: 08/04/19 Stop Date: 08/18/19 Status: Ordered traMADol 50 mg oral tablet 2 tablet = 100 mg, By Mouth, Every 12 hours, as needed for pain masspat checked, # 120 tablet, 2 Refills, Maintenance, 11/04/19 6:31:00 EDT, [facility]/pharmacy #5, 161, cm, 10/07/19 9:57:00 EDT, Height Start Date: 11/04/19 Stop Date: 02/02/20 Status: Ordered zolpidem 10 mg oral tablet 1 tablet = 10 mg, By Mouth, Daily at bedtime, PRN for sleep, for 30 days, masspat check may fill less, # 30 tablet, 3 Refills, Acute 04/17/20 12:28:00 EDT, 12/19/19 12:28:00 EDT, Tablet, [facility]/pharmacy#5, 161, cm, 10/07/19 9:57:00 EDT, Height [...] Clinical Service Informant Acquired hypothyroidism Discharge Diagnosis 01/08/20 BMI 50.0-59.9, adult Discharge Diagnosis 01/08/20 Vital Signs Most recent to oldest [Reference Range]: 1 Height 161 cm (01/08/20 1:51 PM) Oxygen Saturation [94-100 %] 99 % (01/08/20 1:51 PM) Pulse Rate [55-90 bpm] 72 bpm (01/08/20 1:51 PM) Blood Pressure [90-138/55-84 mm Hg] 151/ 79mm Hg *H* (01/08/20 1:51 PM) Blood pressure sites Arm, left (01/08/20 1:51 PM) Social History Social History Type Response Smoking Status Current every day oliva weinberg; Tobacco user in household: No; Type: Cigarettes; Tobacco use times per day: 1/2 ppd; entered on: 07/08/15 Sex
--- OUTSIDE RECORDS SUMMARY | 2024-06-24 14:21 | XMS_ITS | Continuity of Care Document ---
Author Organization [facility] Address [address] [place] [address]- Care Team Providers Care Prescription Clerk Name Role Phone Vivi HENNING, Celestina Givens Primary Care Physician Encounter [facility] Date(s): 02/21/24 - 03/22/24 [facility] [address] [place] [address]- Allergies, Adverse Reactions, Alerts No Known Allergies [...] 08/21/22 Given tetanus/diphtheria/pertussis, acel(Tdap) 7 08/13/12 Given SNGV-TqC-3vLIQ 12y+ bivalent booster vax 06/14/22 Recorded SARS-CoV-2 mRNA (kvdwfil-uckn-wkdxu) vax 02/14/22 Recorded SARS-CoV-2 (COVID-19) mRNA BNT-162b2 vac 05/06/21 Given SARS-CoV-2 (COVID-19) mRNA BNT-162b2 vac 11/04/20 Recorded SARS-CoV-2 (COVID-19) mRNA BNT-162b2 vac 10/14/20 Recorded pneumococcal 23-valent vaccine 8 04/07/19 Given 1Result Comment: screening negative 2Result Comment: [facility]# [id number] 3Result Comment: [05/25/2018] [facility] lot number [id number] exp 01/26/2019 [facility] [id number] 4Result Comment: [08/20/2017] [facility] [id number] 5Admin Note: VIM dated 01/29/12 GIVEN TODAY 6Result Comment: [facility]# [id number] 7Admin Note: VIM dated 08/22/11 GIVEN TODAY 8Result Comment: [facility]#[id number] Medications acetaminophen 500 mg oral capsule 2 [...] 1 Refills, Soft Stop, 12/06/23 17:28:00 EDT, [facility]/pharmacy #5, Partial fill upon patient request [...] 05/17/24 16:46:00 EDT, Route to Pharmacy Electronically, [facility]/pharmacy #2024, Partial fill upon patient request if the prescription is for a... Start Date: 05/17/24 Status: Ordered cyclobenzaprine 10 mg oral tablet 10 mg, 1, tablet, By Mouth, 3 times a day, PRN, # 30 tablet, Refills 0, Tot. Refills 0, Acute 05/17/24 16:46:00 EDT, for spasm, 05/17/23 16:45:00 EDT, Route to Pharmacy Electronically, [facility]/pharmacy #2024, Partial fill upon patient request [...] Refills, Maintenance, 02/01/24 13:44:00 EDT, [facility], 30, APPLY TO AFFECTED AREA 4 TIMES [...] Gm, 0 Refills, Maintenance, 02/28/21 16:31:00 EDT, [place], [facility]/pharmacy #5, Partial fill upon patient request if the prescription is for... Start Date: 02/28/21 Status: Ordered FLUoxetine 10 mg oral capsule 1, capsule, By Mouth, Daily, INSTR:TO BE TAKEN WITH 20MG CAPSULES TO EQUAL 30MG DAILY, # 90 capsule, Refills 1, Maintenance, 01/25/24 9:11:00 EDT, Route to Pharmacy Electronically, [facility] STORE 16064, 157.5, cm, 01/22/24 10:31:00 EDT, Height, 145.9, kg,... Start Date: 01/25/24 Status: Ordered gabapentin 300 mg oral capsule 600 mg, 2, capsule, By Mouth, 3 times a day, # 180 capsule, Refills 3, Tot. Refills 3, Maintenance,08/25/22 22:35:00 EST, Route to Pharmacy Electronically, [facility]/pharmacy #2024, Partial fill upon patient request [...] Refills, Maintenance, 12/28/23 16:17:00 EDT, [facility], 157.5, cm, 10/18/23 15:15:00 EDT, Height, 145.9, [...] tablet, 5 Refills, Maintenance, 10/08/23 17:05:00 EDT, [facility]/pharmacy #2025, 157.5, cm, 07/13/23 9:57:00 EST, Height, 145.9, kg, 237:39:00 EDT, Dry Weight Start Date: 10/08/23 Status: Ordered metFORMIN 500 mg oral tablet, extended release 1 tablet = 500 mg, By Mouth, Daily, # 90 tablet, 1 Refills, Maintenance, 01/22/24 11:02:00 EDT, ER Tablet, [facility]/pharmacy #2025, Partial fill upon patient request [...] Code MRI Safety Implantable Status Assigning Authority [id number] Unknown [id number] Unknown 08/26/24 Unknown Unknown Active GS1 Patient Care team information Care Team Personnel Name: Celestina Trinidad MD Position: [facility] Physician - Primary Care Member Role: PCP Address: Address: [address] [place] [address] Name: Hemalatha Lucas RN Position: [facility] RN Member Role: Primary Care Nurse Name: Lauren Mack RN Position: [facility] MARY Nurse Member Role: Primary Care Nurse Name: Madelaine Ruiz RN Position: [facility] RN Member Role: Primary Care Nurse Name: Lora Santiago RN Position: [facility] RN Member Role: Primary Care Nurse Name: Mayco Ro RN Position: [facility] RN Member Role: Primary Care Nurse Name: Heydi Potts RN Position: [facility] SN [...] Nessa Bonilla RN Position: [facility] Trombone Slide Assembler Member Role: Primary Care Nurse Care Team Related Persons Name: DINESH SARGENT Address: home [address] [place] [address] Name: BON DE Address: home [address] [place] [id number]
--- OUTSIDE RECORDS SUMMARY | 2024-06-24 14:21 | XMS_ITS | Continuity of Care Document ---
Author Organization [facility] Address [address] [place] [address]- Care Team Providers Care Stove Installer Name Role Phone Vivi HENNING, Celestina Givens Primary Care Physician Encounter [facility] Date(s): 08/24/23 - 09/23/23 [facility] [address] [place], [place] [address] Allergies, Adverse Reactions, Alerts No Known [...] 08/21/22 Given tetanus/diphtheria/pertussis, acel(Tdap) 7 08/13/12 Given CKYO-[id number]-[id number] 12y+ bivalent booster vax 06/14/22 Recorded SARS-CoV-2 mRNA (lpowxzg-ardd-jupuh) vax 02/14/22 Recorded SARS-CoV-2 (COVID-19) mRNA BNT-162b2 vac 05/06/21 Given SARS-CoV-2 (COVID-19) mRNA BNT-162b2 vac 11/04/20 Recorded SARS-CoV-2 (COVID-19) mRNA BNT-162b2 vac 10/14/20 Recorded pneumococcal 23-valent vaccine 8 04/07/19 Given 1Result Comment: screening negative 2Result Comment: [facility]# [id number] 3Result Comment: [05/25/2018] [employer] lot number [id number] exp 01/26/2019 [facility] [id number] 4Result Comment: [08/20/2017] [facility] [id number] 5Admin Note: VIM dated 01/29/12 GIVEN TODAY 6Result Comment: [facility]# [id number] 7Admin Note: VIM dated 08/22/11 GIVEN TODAY 8Result Comment: [facility]#[id number] Medications acetaminophen 500 mg oral capsule 2 [...] Route to Pharmacy Electronically, [facility]/pharmacy #2025, Partial fill upon patient request if the presc... Start Date: 05/17/23 Stop Date: 05/17/24 Status: Ordered diclofenac 1% topical gel See Instructions, APPLY TO AFFECTED AREA 4 TIMES A DAY, # 100 Gm, 1 Refills, Maintenance, 09/02/23 8:08:00 EST, [id number], 25, APPLY TO AFFECTED AREA 4 TIMES [...] Gm, 0 Refills, Maintenance, 02/28/21 16:31:00 EDT, [place], [facility], Partial fill upon patient request if the prescription is for... Start Date: 02/28/21 Status: Ordered FLUoxetine 10 mg oral capsule 10 mg, 1, capsule, By Mouth, Daily, to be taken with 20mg capsules to equal 30mg daily, # 90 capsule, Refills 1, Tot. Refills 1, Maintenance, 07/31/23 19:01:00 EST, Route to Pharmacy Electronically, [facility]/pharmacy #2025, Partial fill upon patient reques... Start Date: 07/31/23 Status: Ordered FLUoxetine 20 mg oral capsule 1, capsule, By Mouth, Daily, # 90 capsule, Refills 1, Tot. Refills 1, Maintenance, 07/31/23 19:01:00 EST, Route to Pharmacy Electronically, [facility]/pharmacy #2024, 157.5, cm, 07/13/23 9:57:00 EST, Height, 145.9, kg, 05/22/23 7:39:00 EDT, Dry Weight Start Date: 07/31/23 Status: Ordered gabapentin 300 mg oral capsule 600 mg, 2, capsule, By Mouth, 3 times a day, # 180 capsule, Refills 3, Tot. Refills 3, Maintenance,08/25/22 22:35:00 EST, Route to Pharmacy Electronically, [facility]/pharmacy #2024, Partial fill upon [...] Refills, Maintenance, 02/27/23 7:25:00 EDT, [facility] STORE 14547, 157, cm, 12/08/22 14:27:00 EDT, Height, 145, kg, 08/29/22 20:13:00 EST, Dry... Start Date: 02/27/23 Status: Ordered levothyroxine 150 mcg (0.15 mg) oral tablet 1 tablet = 150 mcg, By Mouth, Daily, # 90 tablet, 0 Refills, Maintenance, 07/15/23 17:38:00 EST, Tablet, [facility]/pharmacy #2024, Partial fill upon [...] tablet, 0 Refills, Maintenance, 09/11/23 12:45:00 EST, [facility]/pharmacy #2024, Partial fill upon [...] Code MRI Safety Implantable Status Assigning Authority [id number] Unknown [id number] Unknown 08/26/24 Unknown Unknown Active GS1 Patient Care team information Care Team Personnel Name: Celestina Trinidad MD Position: [facility] Physician - Primary Care Member Role: PCP Address: Address: [address] [place] [address] Name: Hemalatha Lucas RN Position: [facility] RN Member Role: Primary Care Nurse Name: Lauren Mack RN Position: [facility] AMB Nurse Member Role: Primary Care Nurse Name: Madelaine Ruiz RN Position: [facility] RN Member Role: Primary Care Nurse Name: Lora Santiago RN Position: [facility] SN RN Member Role: Primary Care Nurse Name: Mayco Ro RN Position: [facility] RN Member Role: Primary Care Nurse Name: Heydi Potts RN Position: [facility] SN RN Member Role: Primary Care Nurse Name: Janice Romano LPN Position: [facility] RN Member Role: Primary Care Nurse Name: Nadya Low RN Position: [facility] RN Member Role: Primary Care Nurse Name: Mirna Greenfield RN Position: [facility] RN Member Role: Primary Care Nurse Name: Nessa Bonilla RN Position: [facility] Cigar Packer And Shader Member Role: Primary Care Nurse Care Team Related Persons Name: DINESH SARGENT Address: home [address] [address] Name: BON DE Address: home [address] [address]
--- OUTSIDE RECORDS SUMMARY | 2024-06-24 14:21 | XMS_ITS | Continuity of Care Document ---
Author Organization [facility] Address [address] [place] [address]- Care Team Providers Care Fleet Maintenance Foreman Name Role Phone Noe BLOW DOWN HELPER, Mónica Graham Primary Care Physician [facility]counter [facility] Date(s): 07/20/21 - 08/19/21 [facility] [address] [place] [address]- Allergies, Adverse Reactions, Alerts No Known Allergies [...] 1Result Comment: [facility]# [id number] 2Result Comment: [05/25/2018] [employer] lot number [id number] exp 01/26/[address] [facility] [phone] 3Result Comment: [08/20/2017] [facility] [id number] 4Admin Note: VIM dated 01/29/12 GIVEN TODAY 5Result Comment: [facility]NOTE 2]#[id number] 6Admin Note: VIM dated 08/22/11 GIVEN TODAY [...] 16:52:00 EST, [place], Route to Pharmacy Electronically, [id number], [facility]/pharmacy #2024, 160.02, cm, 07/25/21 [...] 07/25/21 16:53:00 EST, Route to Pharmacy Electronically, [id number], [facility], 160.02, cm, 07/25/21 16:20:00 EST, [...] Gm, 0 Refills, Maintenance, 02/28/21 16:31:00 EDT, [place], [facility]/pharmacy #202, Partial fill upon patient request if the prescription is for... Start Date: 02/28/21 Status: Ordered FLUoxetine 10 mg oral capsule 10 mg, 1, capsule, By Mouth, Daily, Take with 20mg capsule for total of 30mg daily, # 90 capsule, Refills 1, Tot. Refills 1, Maintenance, 05/04/21 16:44:00 EDT, Route to Pharmacy Electronically, [facility]/pharmacy #202, Partial fill upon patient request if... Start Date: 05/04/21 Status: Ordered FLUoxetine 20 mg oral capsule 20 mg, 1, capsule, By Mouth, Daily, Take with Fluoxetine 10mg for a total of 30mg, # 90 capsule, Refills 1, Tot. Refills 1, Maintenance, 05/04/21 16:44:00 EDT, Route to Pharmacy Electronically, [facility]/pharmacy #202, replacing 10mg dose, [...] tablet, 0 Refills, Maintenance, 05/11/21 13:11:00 EDT, [facility]/pharmacy #202, Partial fill upon patient request if the prescriptionis for a schedule II opioid drug., 160.02, cm, 100... Start Date: 05/11/21 Status: Ordered meloxicam 15 mg oral tablet 1 tablet, By Mouth, Daily, WITH FOOD., # 30 tablet, 0 Refills, [facility] STORE 81454, 160.02, cm, 05/06/21 10:09:00 EDT, Height, 143, [...] 08/04/19 17:54:00 EST, Route to Pharmacy Electronically, [facility]/pharmacy #2024, 161, cm, 08/04/19 14:44:00 EST, Height Start Date: 08/04/19 Stop Date: 08/18/19 Status: Ordered traMADol 50 mg oral tablet 2 tablet = 100 mg, By Mouth, Every 12 hours, as needed for pain masspat checked, # 112 tablet, 0 Refills, Maintenance, 07/20/21 17:37:00 EST, [facility]/pharmacy #2024, 160.02, cm, 07/13/21 15:00:00 EST, Height, 143, kg, 01/04/21 10:42:00 EDT, Dry Weight Start Date: 07/20/21 Stop Date: 08/17/21 Status: Ordered zolpidem 10 mg oral tablet 1 tablet = 10 mg, By Mouth, Daily at bedtime, PRN for sleep, for 30 days, masspat check may fill less, # 30 tablet, 3 Refills, Acute 09/08/21 13:11:00 EST, 05/11/21 13:11:00 EDT, Tablet, [facility]/pharmacy#202, 160.02, cm, 05/06/21 10:09:00 EDT, [...]
--- OUTSIDE RECORDS SUMMARY | 2024-06-24 14:21 | XMS_ITS | Continuity of Care Document ---
Author Organization [facility] Address [address] [place] [address]- Care Team Providers Care Fancy Needleworker Name Role Phone Vivi HENNING, Celestina Givens Primary Care Physician Encounter [facility] Date(s): 10/16/22 - 11/15/22 [facility] [address] [place] [address]- Allergies, Adverse Reactions, Alerts No Known Allergies Immunizations Given and Recorded Vaccine Date Status Refusal Reason tetanus/diphtheria/pertussis, acel(Tdap) 1 08/21/22 Given tetanus/diphtheria/pertussis, acel(Tdap) 2 08/13/12 Given [id number] 12y+ bivalent booster vax 06/14/22 Recorded influenza [...] inactivated 6 07/31/12 Gi hali SARS-CoV-2 mRNA (zkpmevk-xouz-fhjfw) vax 02/14/22 Recorded SARS-CoV-2 (COVID-19) mRNA BNT-162b2 vac 05/06/21 Given SARS-CoV-2 (COVID-19) mRNA BNT-162b2 vac 11/04/20 Recorded SARS-CoV-2 (COVID-19) mRNA BNT-162b2 vac 10/14/20 Recorded pneumococcal 23-valent vaccine 7 04/07/19 Given 1Result Comment: [facility]# [id number] 2Admin Note: VIM dated 08/22/11 GIVEN TODAY 3Result Comment: [facility]# [id number] 4Result Comment: [05/25/2018] [employer] lot number [id number] exp 01/26/2019 [facility] [id number] 5Result Comment: [08/20/2017] [facility] [id number] 6Admin Note: VIM dated 01/29/12 GIVEN TODAY 7Result Comment: [facility]#[id number] Medications acetaminophen 500 mg oral capsule 2 [...] Stop, 04/10/2215:14:00 EDT, Route to Pharmacy Electronically, [id number], [facility]/pharmacy #2025, 158, cm, 04/10/22 14:56:00 EDT, Height, 143,... Start Date: 04/10/22 Status: Ordered amLODIPine 10 mg oral tablet 1 tablet, By Mouth, Daily, # 90 tablet, 0 Refills, Maintenance, 10/23/22 12:47:00 EDT, [facility], 157, cm, 09/13/22 15:58:00 EST, Height, 145, kg, 08/29/22 20:13:00 EST, Dry Weight Start Date: 10/23/22 Status: Ordered budesonide-formoterol 80 mcg-4.5 mcg/inh inhalation aerosol with adapter 2, puffs, Inhalation, 2 times a day, PRN, use with spacer chamber, rinse mouth and throat after use, # 10.2 Gm, Refills 5, Tot. Refills 5, Maintenance, 09/12/22 11:06:00 EST, Aerosol, Route to Pharmacy Electronically, [id number]... Start Date: 09/12/22 Status: Ordered cilostazol 100 mg oral tablet 1 tablet, By Mouth, 2 times a day, # 60 tablet, 0 Refills, Maintenance, 11/15/22 22:18:00 EDT, [facility], 157, cm, 10/30/22 13:53:00 EDT, Height, 145, [...] to Pharmacy Electronically, [facility]/pharmacy #2025, Partial fill upon patient request if the p... Start Date: 08/31/22 Status: Ordered Flonase 50 mcg/inh nasal spray See Instructions, 2 sprays Nares twice daily x 1 week, then once daily x 1-2 weeks until symptoms improve, # 16 Gm, 0 Refills, Maintenance, 02/28/21 16:31:00 EDT, [place], [facility]/pharmacy #2025, Partial fill upon patient request if the prescription is for... Start Date: 02/28/21 Status: Ordered FLUoxetine 20 mg oral capsule 1, capsule, By Mouth, Daily, # 90 capsule, Refills 1, Maintenance, 10/23/22 12:47:00 EDT, Route to Pharmacy Electronically, [facility], 157, cm, 09/13/22 15:58:00 EST, Height, 145, kg, 08/29/22 20:13:00 EST, Dry Weight Start Date: 10/23/22 Status: Ordered furosemide 20 mg oral tablet 1, tablet, By Mouth, Daily, MAY REPEAT IF NEEDED IN 2 HOURS, # 30 tablet, Refills 0, Maintenance, 11/08/22 16:39:00 EDT, Route to Pharmacy Electronically, [facility], 157, cm, 10/30/22 13:53:00 EDT, Height, 145, kg, 08/29/22 20:13:00 EST, Dry Weight Start Date: 11/08/22 Status: Ordered gabapentin 300 mg oral capsule 600 mg, 2, capsule, By Mouth, 3 times a day, # 180 capsule, Refills 3, Tot. Refills 3, Maintenance,08/25/22 22:35:00 EST, Route to Pharmacy Electronically, [facility]/pharmacy #5, Partial fill upon patient request [...] Maintenance, 07/03/22 14:41:00 EST, Tablet, [facility]/pharmacy #2024, Partial fill upon patient request if the prescription is for a schedule II opioid dr... Start Date: 07/03/22 Status: Ordered meclizine 25 mg oral tablet See Instructions, PRN Dizziness, 1 tablet By Mouth 3 times a day, # 30 tablet, 0 Refills, Maintenance, 05/11/21 13:11:00 EDT, [facility]/pharmacy #2024, Partial fill upon patient request if the prescriptionis for a schedule II opioid drug., 160.02, cm, 10/0... Start Date: 05/11/21 Status: Ordered meloxicam 15 mg oral tablet See Instructions, TAKE 1 TABLET BY MOUTH DAILY WITH FOOD. LABS NEEDED FOR FURTHER REFILLS, # 30 tablet, 3 Refills, Maintenance, 10/18/22 21:31:00 EDT, [facility] STORE 42851, 157, cm, 09/13/22 15:58:00 EST,Height, 145, kg, [...] Route to Pharmacy Electronically, [facility]/pharmacy #2024, Partialfill upon patient request if the prescription is fo... Start Date: 09/05/22 Stop Date: 09/12/22 Status: Ordered traMADol 50 mg oral tablet See Instructions, 2 tab po qam and one tab po q pm prn moderate to severe pain. 28 days. mass pat ok, # 81 tablet, 0 Refills, Maintenance, 10/29/22 21:38:00 EDT, [facility]/pharmacy #2025, 157, cm, 09/13/2314:58:00 EST, Height, 145, kg, 08/29/22 20:13:00 E... Start Date: 10/29/22 Status: Ordered zolpidem 10 mg oral tablet 1 tablet = 10 mg, By Mouth, Daily at bedtime, PRN for sleep, for 30 days, masspat check may fill less, # 30 tablet, 0 Refills, Acute 11/20/22 16:47:00 EDT, 10/21/22 16:47:00 EDT, Tablet, [facility]/pharmacy#5, 157, cm, 09/13/22 15:58:00 EST, Height, [...] Care Physician Member Role: PCP Address: Address: [address] [place] [address] Name: Hemalatha Lucas RN Position: [facility] RN Member Role: Primary Care Nurse Name: Lauren Mack RN Position: [facility] AMB Nurse Member Role: Primary Care Nurse Name: Madelaine Ruiz RN Position: [facility] RN Member Role: Primary Care Nurse Name: Lora Santiago RN Position: [facility] RN Member [...] Name: Nessa Bonilla RN Position: [facility] Computer Graphic Artist Member Role: Primary Care Nurse Care Team Related Persons Name: ROSETTA DINESH Address: home [address] [place] [address] Name: BON DE Address: [address] [address]
--- OUTSIDE RECORDS SUMMARY | 2024-06-24 14:21 | XMS_ITS | Continuity of Care Document ---
Author Organization [facility] Address [address] [place] [address]- Care Team Providers Care Doll Wig Maker Rooted Hair Name Role Phone Florentino AHN, Elder Hannah Primary Care Physician [facility]counter [facility] Date(s): 07/25/20 - 08/01/20 [facility] [address] [place] [address]- Attending Physician: Karis Flores DO Referring Physician: Elder Good NP Allergies, [...] tetanus/diphtheria/pertussis, acel(Tdap) 6 08/13/12 Given 1Result Comment: [facility]# [id number] 2Result Comment: [05/25/2018] [facility] lot number [id number] exp 01/26/2019 [facility] [id number] 3Result Comment: [08/20/2017] [facility] [id number] 4Admin Note: VIM dated 01/29/12 GIVEN TODAY 5Result Comment: [facility]#[id number] 6Admin Note: VIM dated 08/22/11 GIVEN TODAY [...] 6 HOURS NEEDED FOR WHEEZE, [facility]/pharmacy #2024 Start Date: 05/27/19 Status: Ordered diclofenac 1% topical gel See Instructions, APPLY TOPICALLY 4 TIMES A DAY, # 100 Gm, 0 Refills, Maintenance, [facility] STORE 82447,25, APPLY TOPICALLY 4 TIMES A DAY, 161, cm, 06/08/20 13:48:00 EST, Height Start Date: 07/12/20 Status: Ordered FLUoxetine 20 mg oral capsule 20 mg, 1, capsule, By Mouth, Daily, # 30 capsule, Refills 5, Tot. Refills 5, Maintenance, 05/13/20 9:34:00 EDT, Route to Pharmacy Electronically, [facility]/pharmacy #2024, replacing 10mg dose, 161, cm, 05/13/20 8:28:00 EDT, Height Start Date: 05/13/20 Status: Ordered levothyroxine 0.137 mg oral tablet 1 tablet = 137 mcg, By Mouth, Daily, # 30 tablet, 3 Refills, Maintenance, 06/08/20 15:09:00 EST, Tablet, [facility]/pharmacy #2024, 161, cm, 06/08/20 13:48:00 EST, Height Start Date: 06/08/20 Stop Date: 10/06/20 Status: Ordered levothyroxine 125 mcg (0.125 mg) oral tablet 1 tablet = 125 mcg, By Mouth, Daily, # 30 tablet, 5 Refills, Maintenance, 05/13/20 9:34:00 EDT, Tablet, [facility]/pharmacy #2024, 161, cm, 05/13/20 8:28:00 EDT, Height Start Date: 05/13/20 Status: Ordered meloxicam 15 mg oral tablet 1 tablet = 15 mg, By Mouth, Daily, Take w food., # 30 tablet, 1 Refills, Maintenance, 07/08/20 11:31:00 EST, Tablet, [facility]/pharmacy #2025, Labs needed for further refills, [...] EST, Route to Pharmacy Electronically, [facility]/pharmacy #2024, 161, cm, 08/04/19 14:44:00 EST, [...] 09/10/20 9:34:00 EST, 05/13/20 9:34:00 EDT, Tablet, [facility], 161, [...]
--- OUTSIDE RECORDS SUMMARY | 2024-06-24 14:21 | XMS_ITS | Continuity of Care Document ---
Author Organization [facility] Address [address] [place], [place] [address]ign[address] durbin, [address] [place] [address]- Care Team Providers Care Vehicle Fuel Systems Converter Name Role Phone Celestina Trinidad MD Primary Care Physician [facility]counter [facility] Date(s): 05/08/22 - 06/07/[address], [address] [place], [place] [address] Attending Physician: AdmCalixto hernandez Admitting Physician: AdmtrCalixto Referring Physician: Admtr, Ar8 [...] [facility]# [id number] 2Result Comment: [05/25/2018] [facility] lot number [id number] exp 01/26/2019 [facility] [id number] 3Result Comment: [08/20/2017] [facility] [id number] 4Admin Note: VIM dated 01/29/12 GIVEN TODAY 5Result Comment: [facility]#[id number] 6Admin Note: VIM dated 08/22/11 GIVEN TODAY [...] Stop, 04/10/2215:14:00 EDT, Route to Pharmacy Electronically, [id number], [facility]/pharmacy #2025, 158, cm, 04/10/22 14:56:00 [...] 100 Gm, 1 Refills, 09/19/21 12:51:00 EST, [facility]/pharmacy #2025, 25, APPLY TOPICALLY 4 TIMES A DAY, 160.02, cm, 07/25/21 16:20:00 EST, Height, 143, kg,01/04/21 10:42:00 EDT, Dry Weight Start Date: 09/19/21 Status: Ordered Flonase 50 mcg/inh nasal spray See Instructions, 2 sprays Nares twice daily x 1 week, then once daily x 1-2 weeks until symptoms improve, # 16 Gm, 0 Refills, Maintenance, 02/28/21 16:31:00 EDT, [place], [facility]/pharmacy #202, Partial fill upon patient request if the prescription is for... Start Date: 02/28/21 Status: Ordered FLUoxetine 10 mg oral capsule 10 mg, 1, capsule, By Mouth, Daily, Take with 20mg capsule for total of 30mg daily, # 90 capsule, Refills 1, Tot. Refills 1, Maintenance, 04/11/22 14:55:00 EDT, Route to Pharmacy Electronically, [facility], Partial fill upon patient request if t... Start Date: 04/11/22 Status: Ordered levothyroxine 0.137 mg oral tablet See Instructions, TAKE 1 TABLET BY MOUTH ON DAYS 1-6, THEN TAKE 2 TABLETS BY MOUTH ON DAY 7, # 96 tablet, 1 Refills, [facility] STORE 85223, 160.02, cm, 10/04/21 10:38:00 EST, Height, 143, [...] 06/16/22 16:47:00 EST, 04/10/22 16:47:00 EDT, Tablet, [facility]/pharmacy #... Start Date: 04/10/22 Stop Date: 06/16/22 Status: Ordered meclizine 25 mg oral tablet See Instructions, PRN Dizziness, 1 tablet By Mouth 3 times a day, # 30 tablet, 0 Refills, Maintenance, 05/11/21 13:11:00 EDT, [facility]/pharmacy #2025, Partial fill upon patient request if the prescriptionis for a schedule II opioid drug., 160.02, cm, ... Start Date: 05/11/21 Status: Ordered meloxicam 15 mg oral tablet See Instructions, TAKE 1 TABLET BY MOUTH DAILY WITH FOOD. LABS NEEDED FOR FURTHER REFILLS, # 30 tablet, 0 Refills, Maintenance, 06/07/22 16:08:00 EST, [facility], 158, cm, 05/26/22 14:28:00 EDT, Height, 143, kg, 01/04/21 10:42:00 EDT, Dry Weight Start Date: 06/07/22 Status: Ordered Splint See Instructions, # 1 each, Maintenance, left wrist short cock-up splint, 01/08/20 14:28:00 EDT, Supply Start Date: 01/08/20 Status: Ordered traMADol 50 mg oral tablet See Instructions, 2 tab po qam and one tab po q pm prn moderate to severe pain, # 81 tablet, 0 Refills, Maintenance, 05/11/22 18:51:00 EDT, [facility], 158, cm, 05/08/22 11:49:00 EDT, Height, 143, kg, 01/04/21 10:42:00 EDT, Dry Weight Start Date: 05/11/22 Status: Ordered zolpidem 10 mg oral tablet 1 tablet = 10 mg, By Mouth, Daily at bedtime, PRN for sleep, for 30 days, masspat check may fill less, # 30 tablet, 2 Refills, Acute 07/19/22 9:22:00 EST, 04/20/22 9:22:00 EDT, Tablet, [facility], 158, cm, 04/10/22 14:56:00 EDT, Height, [...] Trinidad MD Position: [facility] Primary Care Physician Member Role: PCP Address: Address: [address] [place] [id number] Name: Lauren Mack RN Position: [facility] Nurse Member Role: Primary Care Nurse Name: Lora Santiago RN Position: [facility] Nurse Member Role: Primary Care Nurse Name: Mayco [...] Bonilla RN Position: [facility] Coordinator Member Role: Primary Care Nurse Care Team Related Persons Name: ROSETTADINESH Address: [address] [place] [address] Name: BON DE Address: home [address] [address]
--- OUTSIDE RECORDS SUMMARY | 2024-06-24 14:21 | XMS_ITS | Continuity of Care Document ---
Author Organization [facility] Address [address] [place] [address]- Care Team Providers Care Hydraulic Tester Name Role Phone Vivi HENNING, Celestina Givens Primary Care Physician Encounter [facility] Date(s): 10/28/22 - 11/27/22 [facility] [address] [place] [address]- Allergies, Adverse Reactions, Alerts No Known Allergies Immunizations Given and Recorded Vaccine Date Status Refusal Reason tetanus/diphtheria/pertussis, acel(Tdap) 1 08/21/22 Given tetanus/diphtheria/pertussis, acel(Tdap) 2 08/13/12 Given [id number] 12y+ bivalent booster vax 06/14/22 Recorded influenza [...] inactivated 6 07/31/12 Gi hali SARS-CoV-2 mRNA (yctgkak-mwuu-jytwj) vax 02/14/22 Recorded SARS-CoV-2 (COVID-19) mRNA BNT-162b2 vac 05/06/21 Given SARS-CoV-2 (COVID-19) mRNA BNT-162b2 vac 11/04/20 Recorded SARS-CoV-2 (COVID-19) mRNA BNT-162b2 vac 10/14/20 Recorded pneumococcal 23-valent vaccine 7 04/07/19 Given 1Result Comment: [facility]# [id number] 2Admin Note: VIM dated 08/22/11 GIVEN TODAY 3Result Comment: [facility]# [id number] 4Result Comment: [05/25/2018] [employer] lot number [id number] exp 01/26/2019 [facility] 41561-950-86 5Result Comment: [08/20/2017] [facility] 33555-446-16 6Admin Note: VIM dated 01/29/12 GIVEN TODAY 7Result Comment: [facility]#[id number] Medications acetaminophen 500 mg oral capsule 2 [...] Stop, 04/10/2215:14:00 EDT, Route to Pharmacy Electronically, [id number], [facility]/pharmacy #2025, 158, cm, 04/10/22 14:56:00 EDT, Height, 143,... Start Date: 04/10/22 Status: Ordered amLODIPine 10 mg oral tablet 1 tablet, By Mouth, Daily, # 90 tablet, 0 Refills, Maintenance, 10/23/22 12:47:00 EDT, [facility] STORE 00626, 157, cm, 09/13/22 15:58:00 EST, Height, 145, kg, 08/29/22 20:13:00 EST, Dry Weight Start Date: 10/23/22 Status: Ordered budesonide-formoterol 80 mcg-4.5 mcg/inh inhalation aerosol with adapter 2, puffs, Inhalation, 2 times a day, PRN, use with spacer chamber, rinse mouth and throat after use, # 10.2 Gm, Refills 5, Tot. Refills 5, Maintenance, 09/12/22 11:06:00 EST, Aerosol, Route to Pharmacy Electronically, [id number]... Start Date: 09/12/22 Status: Ordered Compression Stockings [...] 100 Gm, 1 Refills, 09/22/22 7:28:00 EST, [facility]/pharmacy #2024, 25, APPLY TOPICALLY 4 [...] Pharmacy Electronically, [facility]/pharmacy #2024, Partial fill upon patient request if the p... Start Date: 08/31/22 Status: Ordered Flonase 50 mcg/inh nasal spray See Instructions, 2 sprays Nares twice daily x 1 week, then once daily x 1-2 weeks until symptoms improve, # 16 Gm, 0 Refills, Maintenance, 02/28/21 16:31:00 EDT, [place], [facility], Partial fill upon patient request if the prescription is for... Start Date: 02/28/21 Status: Ordered FLUoxetine 20 mg oral capsule 1, capsule, By Mouth, Daily, # 90 capsule, Refills 1, Maintenance, 10/23/22 12:47:00 EDT, Route to Pharmacy Electronically, [facility], 157, cm, 09/13/22 15:58:00 EST, Height, 145, kg, 08/29/22 20:13:00 EST, Dry Weight Start Date: 10/23/22 Status: Ordered furosemide 20 mg oral tablet 1, tablet, By Mouth, Daily, MAY REPEAT IF NEEDED IN 2 HOURS, # 30 tablet, Refills 0, Maintenance, 11/21/22 14:18:00 EDT, Route to Pharmacy Electronically, [facility], 157, cm, 10/30/22 13:53:00 EDT, Height, 145, kg, 08/29/22 20:13:00 EST, Dry Weight Start Date: 11/21/22 Status: Ordered gabapentin 300 mg oral capsule 600 mg, 2, capsule, By Mouth, 3 times a day, # 180 capsule, Refills 3, Tot. Refills 3, Maintenance,08/25/22 22:35:00 EST, Route to Pharmacy Electronically, [facility]/pharmacy #2024, Partial fill upon patient [...] 13:11:00 EDT, [facility]/pharmacy #2024, Partial fill upon patient request if the prescriptionis for a schedule II opioid drug., 160.02, cm, 10/0... Start Date: 05/11/21 Status: Ordered meloxicam 15 mg oral tablet See Instructions, TAKE 1 TABLET BY MOUTH DAILY WITH FOOD. LABS NEEDED FOR FURTHER REFILLS, # 30 tablet, 3 Refills, Maintenance, 10/18/22 21:31:00 EDT, [facility], 157, cm, 09/13/22 15:58:00 EST,Height, 145, kg, [...] Pharmacy Electronically, [facility]/pharmacy #2024, Partialfill upon patient request if [...] Celestina Trinidad MD Position: [facility] Primary Care Physician Member Role: PCP Address: Address: [address] [place] [id number] Name: Hemalatha Lucas RN Position: [facility] Bonilla RN Position: [facility] Hospital Sand Cutting Machine Operator Member Role: Primary Care Nurse Care Team Related Persons Name: DINESH SARGENT Address: home [address] [place] [address] Name: BON DE Address: home [address] [address]
--- OUTSIDE RECORDS SUMMARY | 2024-06-24 14:21 | XMS_ITS | Continuity of Care Document ---
Author Organization [facility] Address [address] [place] [address]- Care Team Providers Care Title Curator Name Role Phone Vivi HENNING, Celestina Givens Primary Care Physician Encounter [facility] Date(s): 03/17/24 - 04/16/24 [facility] [address] [place] [address]- Allergies, Adverse Reactions, Alerts No Known Allergies [...] 08/21/22 Given tetanus/diphtheria/pertussis, acel(Tdap) 7 08/13/12 Given [id number]-QsS-[id number] 12y+ bivalent booster vax 06/14/22 Recorded SARS-CoV-2 mRNA (gpxalof-wmqp-wmktw) vax 02/14/22 Recorded SARS-CoV-2 (COVID-19) mRNA BNT-162b2 vac 05/06/21 Given SARS-CoV-2 (COVID-19) mRNA BNT-162b2 vac 11/04/20 Recorded SARS-CoV-2 (COVID-19) mRNA BNT-162b2 vac 10/14/20 Recorded pneumococcal 23-valent vaccine 8 04/07/19 Given 1Result Comment: screening negative 2Result Comment: [facility]# [id number] 3Result Comment: [05/25/2018] [facility] lot number [id number] exp 01/26/2019 [facility] [id number] 4Result Comment: [08/20/2017] [facility] 24004-584-82 5Admin Note: VIM dated 01/29/12 GIVEN TODAY 6Result Comment: [facility]# [id number] 7Admin Note: VIM dated 08/22/11 GIVEN TODAY 8Result Comment: [facility]#[id number] Medications acetaminophen 500 mg oral capsule 2 [...] Gm, 0 Refills, Maintenance, 02/28/21 16:31:00 EDT, [place], [facility]/pharmacy #2024, Partial fill upon patient request if the prescription is for... Start Date: 02/28/21 Status: Ordered FLUoxetine 10 mg oral capsule 1, capsule, By Mouth, Daily, INSTR:TO BE TAKEN WITH 20MG CAPSULES TO EQUAL 30MG DAILY, # 90 capsule, Refills 1, Maintenance, 01/25/24 9:11:00 EDT, Route to Pharmacy Electronically, [facility] STORE 90055, 157.5, cm, 01/22/24 10:31:00 EDT, Height, 145.9, [...] Refills, Maintenance, 12/28/23 16:17:00 EDT, [facility], 157.5, cm, 10/18/23 15:15:00 EDT, Height, 145.9, [...] tablet, 1 Refills, Maintenance, 03/28/24 7:37:00 EDT, [facility]/pharmacy #2025, 157.5, cm, 02/12/24 14:48:00 EDT, [...] tablet, 0 Refills, Maintenance, 03/31/24 17:50:00 EDT, [facility]/pharmacy #5, Partial fill upon [...] Code MRI Safety Implantable Status Assigning Authority [id number] Unknown [id number] Unknown 08/26/24 Unknown Unknown Active GS1 Patient Care team information Care Team Personnel Name: Celestina Trinidad MD Position: [facility] Physician - Primary Care Member Role: PCP Address: Address: [address] [place] [id number] Name: Hemalatha Luacs RN Position: [facility] RN Member Role: Primary Care Nurse Name: Lauren Mack RN Position: [facility] RN Member Role: Primary Care Nurse Name: Madelaine Ruiz RN Position: [facility] RN Member Role: Primary Care Nurse Name: Lora Santiago RN Position: [facility] SN RN Member Role: Primary Care Nurse Name: Mayco Ro RN Position: [facility] RN Member Role: Primary Care Nurse Name: Heydi Potts RN Position: [facility] SN RN Member Role: Primary Care Nurse Name: aJnice Romano LPN Position: [facility] RN Member Role: Primary Care Nurse Name: Nadya Low RN Position: [facility] RN Member Role: Primary Care Nurse Name: Mirna Greenfield RN Position: [facility] RN Member Role: Primary Care Nurse Name: Nessa Bonilla RN Position: [facility] Priming Mixture Carrier Member Role: Primary Care Nurse Care Team Related Persons Name: DINESH SARGENT Address: home [address] [place] [address] Name: BON DE Address: [address] [address]
--- OUTSIDE RECORDS SUMMARY | 2024-06-24 14:21 | XMS_ITS | Continuity of Care Document ---
Author Organization [facility] Address [address] [place] [address]- Care Team Providers Care Banquet Supervisor Name Role Phone Vivi HENNING, Celestina Givens Primary Care Physician Encounter [facility] Date(s): 12/28/23 - 01/27/24 [facility] [address] [place] [address]- Allergies, Adverse Reactions, Alerts No Known Allergies [...] 08/21/22 Given tetanus/diphtheria/pertussis, acel(Tdap) 7 08/13/12 Given BSQH-PqM-4mVGC 12y+ bivalent booster vax 06/14/22 Recorded SARS-CoV-2 mRNA (sqvvunl-lcdf-ntqyi) vax 02/14/22 Recorded SARS-CoV-2 (COVID-19) mRNA BNT-162b2 vac 05/06/21 Given SARS-CoV-2 (COVID-19) mRNA BNT-162b2 vac 11/04/20 Recorded SARS-CoV-2 (COVID-19) mRNA BNT-162b2 vac 10/14/20 Recorded pneumococcal 23-valent vaccine 8 04/07/19 Given 1Result Comment: screening negative 2Result Comment: [facility]# [id number] 3Result Comment: [05/25/2018] [employer] lot number [id number] exp 01/26/2019 [facility] [id number] 4Result Comment: [08/20/2017] [facility] 08384-918-26 5Admin Note: VIM dated 01/29/12 GIVEN TODAY 6Result Comment: [facility]# [id number] 7Admin Note: VIM dated 08/22/11 GIVEN TODAY 8Result Comment: [facility]#[id number] Medications acetaminophen 500 mg oral capsule 2 [...] 1 Refills, Soft Stop, 12/06/23 17:28:00 EDT, [facility]/pharmacy #5, Partial fill upon [...] 05/17/23 16:45:00 EDT, Route to Pharmacy Electronically, [facility]/pharmacy #2024, Partial fill upon patient request if the presc... Start Date: 05/17/23 Stop Date: 05/17/24 Status: Ordered diclofenac 1% topical gel See Instructions, APPLY TO AFFECTED AREA 4 TIMES A DAY, # 100 Gm, 1 Refills, Maintenance, 11/07/23 7:48:00 EDT, [facility]/pharmacy #2024, 25, APPLY TO [...] Gm, 0 Refills, Maintenance, 02/28/21 16:31:00 EDT, [place], [facility], Partial fill upon patient request if the prescription is for... Start Date: 02/28/21 Status: Ordered FLUoxetine 10 mg oral capsule 1, capsule, By Mouth, Daily, INSTR:TO BE TAKEN WITH 20MG CAPSULES TO EQUAL 30MG DAILY, # 90 capsule, Refills 1, Maintenance, 01/25/24 9:11:00 EDT, Route to Pharmacy Electronically, [facility], 157.5, cm, 01/22/24 10:31:00 EDT, Height, 145.9, kg,... Start Date: 01/25/24 Status: Ordered gabapentin 300 mg oral capsule 600 mg, 2, capsule, By Mouth, 3 times a day, # 180 capsule, Refills 3, Tot. Refills 3, Maintenance,08/25/22 22:35:00 EST, Route to Pharmacy Electronically, [facility]/pharmacy #2024, Partial fill upon [...] Refills, Maintenance, 12/28/23 16:17:00 EDT, [facility], 157.5, cm, 10/18/23 15:15:00 EDT, Height, 145.9, [...] may filll this prescription for fewer pills[facility], Refills 0, [...] Code MRI Safety Implantable Status Assigning Authority [id number] [id number] Unknown [id number] Unknown 08/26/24 Unknown Unknown Active GS1 Patient Care team information Care Team Personnel Name: Celestina Trinidad MD Position: [facility] Physician - Primary Care Member Role: PCP Address: Address: [address] [place] [address] Name: Hemalatha Lucas RN Position: [facility] RN Member Role: Primary Care Nurse Name: Lauren Mack RN Position: [facility] AMB Nurse Member Role: Primary Care Nurse Name: Madelaine Ruiz RN Position: [facility] RN Member Role: Primary Care Nurse Name: Lora Santiago RN Position: [facility] SN RN Member Role: Primary Care Nurse Name: Mayco Ro RN Position: [facility] RN Member Role: Primary Care Nurse Name: Heydi Potts RN Position: [facility] SN RN Member Role: Primary Care Nurse Name: Janice Romano LPN Position: [facility] RN Member Role: Primary Care Nurse Name: Nadya Low RN Position: [facility] RN Member Role: Primary Care Nurse Name: Mirna Greenfield RN Position: [facility] RN Member Role: Primary Care Nurse Name: Nessa Bonilla RN Position: [facility] Beauty Operator Apprentice Member Role: Primary Care Nurse Care Team Related Persons Name: DINESH SARGENT Address: home [address] [address] Name: BON DE Address: home [address] [address]
--- OUTSIDE RECORDS SUMMARY | 2024-06-24 14:21 | XMS_ITS | Continuity of Care Document ---
Author Organization [facility] Address [address] [place] [address]- Care Team Providers Care Seam Press Operator Name Role Phone Vivi HENNING, Celestnia Givens Primary Care Physician Encounter [facility] Date(s): 09/21/22 - 10/21/22 [facility] [address] [place] [address]- Allergies, Adverse Reactions, Alerts No Known Allergies Immunizations Given and Recorded Vaccine Date Status Refusal Reason tetanus/diphtheria/pertussis, acel(Tdap) 1 08/21/22 Given tetanus/diphtheria/pertussis, acel(Tdap) 2 08/13/12 Given [id number]-PfC-2rRTS 12y+ bivalent booster vax 06/14/22 Recorded influenza [...] inactivated 6 07/31/12 Gi hali SARS-CoV-2 mRNA (zbztlhs-gyqs-tsqar) vax 02/14/22 Recorded SARS-CoV-2 (COVID-19) mRNA BNT-162b2 vac 05/06/21 Given SARS-CoV-2 (COVID-19) mRNA BNT-162b2 vac 11/04/20 Recorded SARS-CoV-2 (COVID-19) mRNA BNT-162b2 vac 10/14/20 Recorded pneumococcal 23-valent vaccine 7 04/07/19 Given 1Result Comment: [facility]# [id number] 2Admin Note: VIM dated 08/22/11 GIVEN TODAY 3Result Comment: [facility]# [id number] 4Result Comment: [05/25/2018] [facility] lot number [id number] exp 01/26/2019 [facility] [id number] 5Result Comment: [08/20/2017] [facility] 61182-999-76 6Admin Note: VIM dated 01/29/12 GIVEN TODAY 7Result Comment: [facility]#[id number] Medications acetaminophen 500 mg oral capsule 2 [...] Stop, 04/10/2215:14:00 EDT, Route to Pharmacy Electronically, [id number], [facility]/pharmacy #2025, 158, cm, 04/10/22 14:56:00 EDT, Height, 143,... Start Date: 04/10/22 Status: Ordered amLODIPine 5 mg oral tablet 1 tablet, By Mouth, Daily, # 30 tablet, 5 Refills, Maintenance, 08/24/22 20:08:00 EST, [facility], 159, cm, 08/21/22 11:38:00 EST, Height, 143, kg, 01/04/21 10:42:00 EDT, Dry Weight Start Date: 08/24/22 Status: Ordered budesonide-formoterol 80 mcg-4.5 mcg/inh inhalation aerosol with adapter 2, puffs, Inhalation, 2 times a day, PRN, use with spacer chamber, rinse mouth and throat after use, # 10.2 Gm, Refills 5, Tot. Refills 5, Maintenance, 09/12/22 11:06:00 EST, Aerosol, Route to Pharmacy Electronically, [id number]... Start Date: 09/12/22 Status: Ordered cilostazol 50 mg oral tablet 1 tablet = 50 mg, By Mouth, Daily, # 180 tablet, 0 Refills, Maintenance, 09/02/22 10:35:00 EST, Tablet, [facility]/pharmacy #2024, Partial fill [...] 08/31/22 13:30:00 EST, Route to Pharmacy Electronically, [facility]/pharmacy #5, Partial fill upon patient request if the p... Start Date: 08/31/22 Status: Ordered Flonase 50 mcg/inh nasal spray See Instructions, 2 sprays Nares twice daily x 1 week, then once daily x 1-2 weeks until symptoms improve, # 16 Gm, 0 Refills, Maintenance, 02/28/21 16:31:00 EDT, [place], [facility]/pharmacy #2025, Partial fill upon patient request if the prescription is for... Start Date: 02/28/21 Status: Ordered FLUoxetine 20 mg oral capsule See Instructions, TAKE 1 CAPSULE BY MOUTH EVERY DAY, # 90 capsule, Refills 1, Maintenance, 06/13/2215:26:00 EST, Instructions Replace Required Details, Route to Pharmacy Electronically, [facility], 158, cm, 06/09/22 11:21:00 EST, Height, 143, kg... Start Date: 06/13/22 Status: Ordered furosemide 20 mg oral tablet 1, tablet, By Mouth, Daily, MAY REPEAT IF NEEDED IN 2 HOURS, # 30 tablet, Refills 0, Maintenance, 10/18/22 21:31:00 EDT, Route to Pharmacy Electronically, [facility], 157, cm, 09/13/22 15:58:00 EST, Height, 145, kg, 08/29/22 20:13:00 EST, Dry Weight Start Date: 10/18/22 Status: Ordered gabapentin 300 mg oral capsule 600 mg, 2, capsule, By Mouth, 3 times a day, # 180 capsule, Refills 3, Tot. Refills 3, Maintenance,08/25/22 22:35:00 EST, Route to Pharmacy Electronically, [facility]/pharmacy #5, Partial fill upon patient request if the prescription is for a schedule II... Start Date: 08/25/22 Status: Ordered levothyroxine 0.137 mg oral tablet 1 tablet = 137 mcg, By Mouth, Daily, 1 tab on days 1-6, take 2 tabs on day 7, # 102 tablet, 1 Refills, Maintenance, 07/03/22 14:41:00 EST, Tablet, [facility]/pharmacy #202, Partial fill upon patient request if the prescription is for a schedule II opioid dr... Start Date: 07/03/22 Status: Ordered meclizine 25 mg oral tablet See Instructions, PRN Dizziness, 1 tablet By Mouth 3 times a day, # 30 tablet, 0 Refills, Maintenance, 05/11/21 13:11:00 EDT, [facility]/pharmacy #2024, Partial fill upon patient request if the prescriptionis for a schedule II opioid drug., 160.02, cm, 10/0... Start Date: 05/11/21 Status: Ordered meloxicam 15 mg oral tablet See Instructions, TAKE 1 TABLET BY MOUTH DAILY WITH FOOD. LABS NEEDED FOR FURTHER REFILLS, # 30 tablet, 3 Refills, Maintenance, 10/18/22 21:31:00 EDT, [facility] STORE 62082, 157, cm, 09/13/22 15:58:00 EST,Height, 145, kg, [...] 09/05/22 16:29:00 EST, Route to Pharmacy Electronically, [facility]/pharmacy #2024, Partialfill upon patient [...] Physician Member Role: PCP Address: Address: [address] [place] [id number] Name: Hemalatha Lucas RN Position: [facility] RN Member Role: Primary Care Nurse Name: Lauren Mack RN Position: [facility] Nurse Member Role: Primary Care Nurse Name: [...] Bonilla RN Position: [facility] Visual Merchandising Specialist Member Role: Primary Care Nurse Care Team Related Persons Name: DINESH SARGENT Address: home [address] [place] [address] Name: BON DE Address: home [address] [address]
--- OUTSIDE RECORDS SUMMARY | 2024-06-24 14:21 | XMS_ITS | Continuity of Care Document ---
Author Organization [facility] em Address Unknown Care Team Providers Care Ground Water Technician Name Role Phone Celestina Trinidad MD Primary Care Physician Encounter [facility] Date(s): 10/30/22 - 11/29/22 [facility] Attending Physician: Calixto Beltran Admitting Physician: Calixto Beltran Referring Physician: Calixto Beltran Allergies, Adverse Reactions, Alerts No Known Allergies Immunizations Given and Recorded Vaccine Date Status Refusal Reason tetanus/diphtheria/pertussis, acel(Tdap) 1 08/21/22 Given tetanus/diphtheria/pertussis, acel(Tdap) 2 08/13/12 Given [id number] 12y+ bivalent booster vax 06/14/22 Recorded influenza [...] inactivated 6 07/31/12 Gi hali SARS-CoV-2 mRNA (mthddlt-rnxk-nzrzu) vax 02/14/22 Recorded SARS-CoV-2 (COVID-19) mRNA BNT-162b2 vac 05/06/21 Given SARS-CoV-2 (COVID-19) mRNA BNT-162b2 vac 11/04/20 Recorded SARS-CoV-2 (COVID-19) mRNA BNT-162b2 vac 10/14/20 Recorded pneumococcal 23-valent vaccine 7 04/07/19 Given 1Result Comment: [facility]# [id number] 2Admin Note: VIM dated 08/22/11 GIVEN TODAY 3Result Comment: [facility]# [id number] 4Result Comment: [05/25/2018] [employer] lot number [id number] exp 01/26/2019 [facility] [id number] 5Result Comment: [08/20/2017] [facility] 13504-547-42 6Admin Note: VIM dated 01/29/12 GIVEN TODAY 7Result Comment: [facility]#[id number] Medications acetaminophen 500 mg oral capsule 2 [...] Stop, 04/10/2215:14:00 EDT, Route to Pharmacy Electronically, [id number], [facility]/pharmacy #2025, 158, cm, 04/10/22 14:56:00 EDT, Height, 143,... Start Date: 04/10/22 Status: Ordered amLODIPine 10 mg oral tablet 1 tablet, By Mouth, Daily, # 90 tablet, 0 Refills, Maintenance, 10/23/22 12:47:00 EDT, [facility], 157, cm, 09/13/22 15:58:00 EST, Height, 145, kg, 08/29/22 20:13:00 EST, Dry Weight Start Date: 10/23/22 Status: Ordered budesonide-formoterol 80 mcg-4.5 mcg/inh inhalation aerosol with adapter 2, puffs, Inhalation, 2 times a day, PRN, use with spacer chamber, rinse mouth and throat after use, # 10.2 Gm, Refills 5, Tot. Refills 5, Maintenance, 09/12/22 11:06:00 EST, Aerosol, Route to Pharmacy Electronically, [id number]... Start Date: 09/12/22 Status: Ordered Compression Stockings [...] 100 Gm, 1 Refills, 09/22/22 7:28:00 EST, [facility]/pharmacy #2024, 25, APPLY TOPICALLY [...] 08/31/22 13:30:00 EST, Route to Pharmacy Electronically, [facility]/pharmacy #2024, Partial fill upon patient request if the p... Start Date: 08/31/22 Status: Ordered Flonase 50 mcg/inh nasal spray See Instructions, 2 sprays Nares twice daily x 1 week, then once daily x 1-2 weeks until symptoms improve, # 16 Gm, 0 Refills, Maintenance, 02/28/21 16:31:00 EDT, [place], [facility]/pharmacy #2024, Partial fill upon patient request if the prescription is for... Start Date: 02/28/21 Status: Ordered FLUoxetine 20 mg oral capsule 1, capsule, By Mouth, Daily, # 90 capsule, Refills 1, Maintenance, 10/23/22 12:47:00 EDT, Route to Pharmacy Electronically, [facility], 157, cm, 09/13/22 15:58:00 EST, Height, 145, kg, 08/29/22 20:13:00 EST, Dry Weight Start Date: 10/23/22 Status: Ordered furosemide 20 mg oral tablet 1, tablet, By Mouth, Daily, MAY REPEAT IF NEEDED IN 2 HOURS, # 30 tablet, Refills 0, Maintenance, 11/29/22 22:18:00 EDT, Route to Pharmacy Electronically, [facility], 157, cm, 10/30/22 13:53:00 EDT, Height, 145, kg, 08/29/22 20:13:00 EST, Dry Weight Start Date: 11/29/22 Status: Ordered gabapentin 300 mg oral capsule 600 mg, 2, capsule, By Mouth, 3 times a day, # 180 capsule, Refills 3, Tot. Refills 3, Maintenance,08/25/22 22:35:00 EST, Route to Pharmacy Electronically, [facility]/pharmacy #2024, Partial fill upon [...] 1 Refills, Maintenance, 07/03/22 14:41:00 EST, Tablet, [facility]/pharmacy #2024, Partial fill upon [...] Refills, Maintenance, 10/18/22 21:31:00 EDT, [facility], 157, cm, 09/13/22 15:58:00 EST,Height, 145, kg, [...] 09/05/22 16:29:00 EST, Route to Pharmacy Electronically, [facility]/pharmacy #2024, Partialfill upon patient [...] Trinidad MD Position: [facility] Primary Care Physician Member Role: PCP Address: Address: [address] [place] [id number] Name: Hemalatha Lucas RN Position: [facility] RN Member Role: Primary Care Nurse Name: Lauren Mack RN Position: [facility] AMB Nurse Member Role: Primary Care Nurse Name: Madelaine Ruiz RN Position: [facility] RN Member Role: Primary Care Nurse Name: Lora Santiago RN Position: [facility] SN RN Member Role: Primary Care Nurse Name: Mayco Ro RN Position: [facility] RN Member Role: Primary Care Nurse Name: Heydi Potts RN Position: [facility] RN Member Role: Primary Care Nurse Name: Janice Romano LPN Position: [facility] RN Member Role: Primary Care Nurse Name: Nadya Low RN Position: [facility] RN Member Role: Primary Care Nurse Name: Mirna Greenfield RN Position: [facility] RN Member Role: Primary Care Nurse Name: Nessa Bonilla RN Position: [facility] Hospital Sap Director Member Role: Primary Care Nurse Care Team Related Persons Name: ROSETTA DINESH Address: home [address] [place] [address] Name: BON DE Address: home [address] [address]
--- OUTSIDE RECORDS SUMMARY | 2024-06-24 14:21 | XMS_ITS | Continuity of Care Document ---
Author Organization [facility] Address [address] [place] [id number]- Care Team Providers Care Commissary Representative Name Role Phone Vivi HENNING, Celestina Givens Primary Care Physician Encounter [facility] Date(s): 08/24/23 - 09/23/23 [facility] [address] [place] [id number] Allergies, Adverse Reactions, Alerts [...] 08/21/22 Given tetanus/diphtheria/pertussis, acel(Tdap) 7 08/13/12 Given [id number] 12y+ bivalent booster vax 06/14/22 Recorded SARS-CoV-2 mRNA (nbwrmgz-izns-ejngc) vax 02/14/22 Recorded SARS-CoV-2 (COVID-19) mRNA BNT-162b2 vac 05/06/21 Given SARS-CoV-2 (COVID-19) mRNA BNT-162b2 vac 11/04/20 Recorded SARS-CoV-2 (COVID-19) mRNA BNT-162b2 vac 10/14/20 Recorded pneumococcal 23-valent vaccine 8 04/07/19 Given 1Result Comment: screening negative 2Result Comment: [facility]# [id number] 3Result Comment: [05/25/2018] [facility] lot number [id number] exp 01/26/2019 [facility] [id number] 4Result Comment: [08/20/2017] [facility] [id number] 5Admin Note: VIM dated 01/29/12 GIVEN TODAY 6Result Comment: [facility]# [id number] 7Admin Note: VIM dated 08/22/11 GIVEN TODAY 8Result Comment: [facility]#[id number] Medications acetaminophen 500 mg oral capsule 2 [...] Refills, Maintenance, 09/02/23 8:08:00 EST, [facility], 25, APPLY TO AFFECTED AREA 4 TIMES [...] Gm, 0 Refills, Maintenance, 02/28/21 16:31:00 EDT, [place], [facility], Partial fill upon patient request if the prescription is for... Start Date: 02/28/21 Status: Ordered FLUoxetine 10 mg oral capsule 10 mg, 1, capsule, By Mouth, Daily, to be taken with 20mg capsules to equal 30mg daily, # 90 capsule, Refills 1, Tot. Refills 1, Maintenance, 07/31/23 19:01:00 EST, Route to Pharmacy Electronically, [facility]/pharmacy #2024, Partial fill upon patient reques... Start Date: 07/31/23 Status: Ordered FLUoxetine 20 mg oral capsule 1, capsule, By Mouth, Daily, # 90 capsule, Refills 1, Tot. Refills 1, Maintenance, 07/31/23 19:01:00 EST, Route to Pharmacy Electronically, [facility]/pharmacy #2024, 157.5, cm, 07/13/23 9:57:00 EST, Height, 145.9, kg, 05/22/23 7:39:00 EDT, Dry Weight Start Date: 07/31/23 Status: Ordered gabapentin 300 mg oral capsule 600 mg, 2, capsule, By Mouth, 3 times a day, # 180 capsule, Refills 3, Tot. Refills 3, Maintenance,08/25/22 22:35:00 EST, [facility] upon patient [...] tablet, 2 Refills, Maintenance, 02/27/23 7:25:00 EDT, [facility], 157, cm, 12/08/22 14:27:00 EDT, Height, 145, [...] cm, 07/13/23 9:57:00 EST, [place]... Start Date: 12/17/23 Status: Ordered meclizine 25 mg oral tablet [...] holliday, # 81 tablet, 0 Refills, Maintenance, 09/11/23 [...] tablet, 0 Refills, Maintenance, 09/11/23 12:45:00 EST, [facility]/pharmacy #2024, Partial fill upon patient [...] Code MRI Safety Implantable Status Assigning Authority [id number] Unknown [id number] Unknown 08/26/24 Unknown Unknown Active GS1 Patient Care team information Care Team Personnel Name: Celestina Trinidad MD Position: [facility] Physician - Primary Care Member Role: PCP Address: Address: [address] [place] [id number] Name: Hemalatha Lucas RN [facility] [...] Name: Nessa Bonilla RN Position: [facility] [employer] Administrator Member Role: Primary Care Nurse Care Team Related Persons Name: DINESH SARGENT Address: home [address] [place] [address] Name: BON DE Address: home [address] [address]
--- OUTSIDE RECORDS SUMMARY | 2024-06-24 14:21 | XMS_ITS | Continuity of Care Document ---
Author Organization [facility] Address [address] [place] [address]- Care Team Providers Care Field Account Director Name Role Phone Mónica Liu NP Primary Care Physician Encounter [facility] Date(s): 07/11/21 - 08/20/21 [facility] [address] [place] [address]- Attending Physician: Mónica Liu NP Allergies, Adverse [...] 08/13/12 Given 1Result Comment: [facility]# [id number] 2Result Comment: [05/25/2018] [facility] lot number [id number] exp 01/26/2019 [facility] [id number] 3Result Comment: [08/20/2017] [facility] [id number] 4Admin Note: VIM dated 01/29/12 GIVEN TODAY 5Result Comment: [facility]#[id number] 6Admin Note: VIM dated 08/22/11 GIVEN TODAY [...] 16:52:00 EST, Powder, Route to Pharmacy Electronically, [id number], [facility]/pharmacy #2024, 160.02, cm, 07/25/21 16:20:00 EST, Heigh... [...] 07/25/21 16:53:00 EST, Route to Pharmacy Electronically, [id number], [facility]/pharmacy #2024, 160.02, cm, 07/25/21 16:20:00 EST, Height, 143... Start Date: 07/25/21 Status: Ordered diclofenac 1% topical gel See Instructions, APPLY TOPICALLY 4 TIMES A DAY, # 100 Gm, 1 Refills, 10/27/20 12:37:00 EDT, [facility]/pharmacy #202, 25, APPLY TOPICALLY 4 TIMES A DAY, 160.02, cm, 10/19/20 11:04:00 EDT, Height, 156.81, kg, 10/19/20 11:04:00 EDT, Dry Weight Start Date: 10/27/20 Status: Ordered Flonase 50 mcg/inh nasal spray See Instructions, 2 sprays Nares twice daily x 1 week, then once daily x 1-2 weeks until symptoms improve, # 16 Gm, 0 Refills, Maintenance, 02/28/21 16:31:00 EDT, [place], [facility]/pharmacy #202, Partial fill upon patient request if the prescription is for... Start Date: 02/28/21 Status: Ordered FLUoxetine 10 mg oral capsule 10 mg, 1, capsule, By Mouth, Daily, Take with 20mg capsule for total of 30mg daily, # 90 capsule, Refills 1, Tot. Refills 1, Maintenance, 05/04/21 16:44:00 EDT, Route to Pharmacy Electronically, [facility]/pharmacy #2024, Partial fill upon patient request if... Start Date: 05/04/21 Status: Ordered FLUoxetine 20 mg oral capsule 20 mg, 1, capsule, By Mouth, Daily, Take with Fluoxetine 10mg for a total of 30mg, # 90 capsule, Refills 1, Tot. Refills 1, Maintenance, 05/04/21 16:44:00 EDT, Route to Pharmacy Electronically, [facility]/pharmacy #2024, replacing 10mg dose, 160.02, cm, 08/0... Start Date: 05/04/21 Status: Ordered levothyroxine 0.137 mg oral tablet See Instructions, Take 1 tablet by mouth on days 1-6, then take 2 tablets by mouth on day 7, # 121 tablet, 5 Refills, Maintenance, 12/07/20 9:46:00 EDT, [facility]/pharmacy #202, 160.02, cm, 10/19/20 11:04:00 EDT, Height, 156.81, kg, 10/19/20 11:04:00 EDT,... Start Date: 12/07/20 Status: Ordered meclizine 25 mg oral tablet See Instructions, PRN Dizziness, 1 tablet By Mouth 3 times a day, # 30 tablet, 0 Refills, Maintenance, 05/11/21 13:11:00 EDT, [facility]/pharmacy #202, Partial fill upon patient request if the prescriptionis for a schedule II opioid drug., 160.02, cm, ... Start Date: 05/11/21 Status: Ordered meloxicam 15 mg oral tablet 1 tablet, By Mouth, Daily, WITH FOOD., # 30 tablet, 0 Refills, [facility] STORE 46521, 160.02, cm, 05/06/21 10:09:00 EDT, Height, 143, [...] 08/04/19 17:54:00 EST, Route to Pharmacy Electronically, [facility]/pharmacy #2024, 161, cm, 08/04/19 14:44:00 EST, Height [...] 09/08/21 13:11:00 EST, 05/11/21 13:11:00 EDT, Tablet, [facility], 160.02, cm, 05/06/21 10:09:00 EDT, Height,... Start [...]
--- OUTSIDE RECORDS SUMMARY | 2024-06-24 14:21 | XMS_ITS | Continuity of Care Document ---
Author Organization [facility] Address [address] [place] [address]- Care Team Providers Care Salad Counter Attendant Name Role Phone Celestina Trinidad MD Primary Care Physician Encounter [facility] Date(s): 07/17/22 - 08/24/22 [facility] [address] [place] [address]- Attending Physician: Renetta Trinidad MD Admitting Physician: Renetta Trinidad MD Referring Physician: Celestina Trinidad MD Allergies, Adverse Reactions, Alerts No Known Allergies Immunizations Given and Recorded Vaccine Date Status Refusal Reason tetanus/diphtheria/pertussis, acel(Tdap) 1 08/21/22 Given tetanus/diphtheria/pertussis, acel(Tdap) 2 08/13/12 Given [id number] 12y+ bivalent booster vax 06/14/22 Recorded influenza [...] inactivated 6 07/31/12 Gi hali SARS-CoV-2 mRNA (kuonxso-uhev-umenn) vax 02/14/22 Recorded SARS-CoV-2 (COVID-19) mRNA BNT-162b2 vac 05/06/21 Given SARS-CoV-2 (COVID-19) mRNA BNT-162b2 vac 11/04/20 Recorded SARS-CoV-2 (COVID-19) mRNA BNT-162b2 vac 10/14/20 Recorded pneumococcal 23-valent vaccine 7 04/07/19 Given 1Result Comment: [facility]# [id number] 2Admin Note: VIM dated 08/22/11 GIVEN TODAY 3Result Comment: [facility]# [id number] 4Result Comment: [05/25/2018] [facility] lot number [id number] exp 01/26/2019 [facility] 34432-143-73 5Result Comment: [08/20/2017] [facility] 22330-135-27 6Admin Note: VIM dated 01/29/12 GIVEN TODAY 7Result Comment: [facility]#[id number] Medications acetaminophen 500 mg oral capsule 2 [...] Stop, 04/10/2215:14:00 EDT, Route to Pharmacy Electronically, [id number], [facility]/pharmacy #2025, 158, cm, 04/10/22 14:56:00 EDT, Height, 143,... Start Date: 04/10/22 Status: Ordered amLODIPine 5 mg oral tablet 1 tablet, By Mouth, Daily, # 30 tablet, 5 Refills, Maintenance, 08/24/22 20:08:00 EST, [facility], 159, cm, 08/21/22 11:38:00 EST, Height, 143, kg, 06/08/21 10:42:00 EDT, Dry Weight Start Date: 08/24/22 Status: Ordered Anoro Ellipta 62.5 mcg-25 mcg/inh inhalation powder 1 puffs, By Mouth, Daily, # 1 each, 6 Refills, Maintenance, 05/11/22 13:00:00 EDT, Powder, [facility], Partial fill upon patient request if the prescription is for a schedule II opioid drug., 1puffs By Mouth Daily,x30 days, 158, cm, 05/08/22 11... Start Date: 05/11/22 Stop Date: 12/07/22 Status: Ordered cilostazol 100 mg oral tablet 1 tablet, By Mouth, 2 times a day, # 60 tablet, 0 Refills, Maintenance, 08/20/22 11:31:00 EST, [facility], 159, cm, 08/15/22 11:23:00 EST, Height, 143, [...] 100 Gm, 1 Refills, 09/19/21 12:51:00 EST, [facility]/pharmacy #2025, 25, APPLY TOPICALLY 4 TIMES A DAY, 160.02, cm, 07/25/21 16:20:00 EST, Height, 143, kg,01/04/21 10:42:00 EDT, Dry Weight Start Date: 09/19/21 Status: Ordered doxycycline hyclate 100 mg oral tablet 1 tablet, By Mouth, 2 times a day, # 20 tablet, 0 Refills, Maintenance, 08/10/22 16:34:00 EST, [facility]/pharmacy #2025, 159, cm, 08/01/22 14:14:00 EST, Height, 143, kg, 01/04/21 10:42:00 EDT, Dry Weight Start Date: 08/10/22 Stop Date: 08/20/22 Status: Ordered Flonase 50 mcg/inh nasal spray See Instructions, 2 sprays Nares twice daily x 1 week, then once daily x 1-2 weeks until symptoms improve, # 16 Gm, 0 Refills, Maintenance, 02/28/21 16:31:00 EDT, [place], [facility]/pharmacy #202, Partial fill upon patient request if the prescription is for... Start Date: 02/28/21 Status: Ordered FLUoxetine 20 mg oral capsule See Instructions, TAKE 1 CAPSULE BY MOUTH EVERY DAY, # 90 capsule, Refills 1, Maintenance, 06/13/2215:26:00 EST, Instructions Replace Required Details, Route to Pharmacy Electronically, [facility]70, 158, cm, 06/09/22 11:21:00 EST, Height, 143, kg... Start Date: 06/13/22 Status: Ordered gabapentin 300 mg oral capsule 600 mg, 2, capsule, By Mouth, 2 times a day, # 120 capsule, Refills 1, Tot. Refills 1, Maintenance,07/22/22 8:06:00 EST, Route to Pharmacy Electronically, [facility]/pharmacy #202, Partial fill upon patient request if the prescription is for a schedule II... Start Date: 07/22/22 Status: Ordered levothyroxine 0.137 mg oral tablet 1 tablet = 137 mcg, By Mouth, Daily, 1 tab on days 1-6, take 2 tabs on day 7, # 102 tablet, 1 Refills, Maintenance, 07/03/22 14:41:00 EST, Tablet, [facility]/pharmacy #202, Partial [...] 96 tablet, 0 Refills, 06/29/22 15:47:00 EST, [facility]/pharmacy #202, 158, cm,06/09/22 11:21:00 EST, Height, 143, kg, 01/04/21 1... Start Date: 06/29/22 Status: Ordered meclizine 25 mg oral tablet See Instructions, PRN Dizziness, 1 tablet By Mouth 3 times a day, # 30 tablet, 0 Refills, Maintenance, 05/11/21 13:11:00 EDT, [facility]/pharmacy #2024, Partial [...] 0 Refills, Maintenance, 08/01/22 16:58:00 EST, Tablet, [facility]/pharmacy #2024, Partial [...] Acute 09/27/22 16:00:00 EST, 08/01/22 21:26:00EST, Ointment, [facility]/pharmacy #2024, Partial [...] Name: Celestina Trinidad MD Position: [facility] Primary Care Physician Member Role: PCP Address: Address: [address] [place] [address] Name: Lauren Mack RN Position: [facility] Nurse Member Role: Primary Care Nurse Name: Lora Santiago RN Position: [facility] SN RN Member Role: Primary Care Nurse Name: Mayco Ro RN Position: [facility] RN Member Role: Primary Care Nurse Name: Heydi Potts RN Position: [facility] RN Member Role: Primary Care Nurse Name: Nadya Low RN Position: [facility] RN Member Role: Primary Care Nurse Name: Mirna Greenfield RN Position: [facility] RN Member Role: Primary Care Nurse Name: Nessa Bonilla RN Position: [facility] Hospital Family Worker Member Role: Primary Care Nurse Care Team Related Persons Name: ROLA SARGENTELLE Address: home [address] [place] [address] Name: BNO DE Address: home [address] [place] [address]
--- OUTSIDE RECORDS SUMMARY | 2024-06-24 14:21 | XMS_ITS | Continuity of Care Document ---
Author Organization [facility] Address [address] [place] [address]- Care Team Providers Care Public Service Director Name Role Phone Florentino AHN, Elder Hannah Primary Care Physician [phone] Encounter [facility] Date(s): 01/20/21 - 02/19/21 [facility] [address] [place] [address]- Allergies, Adverse Reactions, Alerts Substance Reaction Severity [...] 1Result Comment: [facility]# [id number] 2Result Comment: [05/25/2018] [facility] lot number [id number] exp 01/26/2019 [facility] 75421-359-19 3Result Comment: [08/20/2017] [facility] 42778-746-30 4Admin Note: VIM dated 01/29/12 GIVEN TODAY 5Result Comment: [facility]#[id number] 6Admin Note: VIM dated 08/22/11 GIVEN TODAY [...] 10/27/20 14:48:00 EDT, Route to Pharmacy Electronically, [id number], [facility]/pharmacy #2024, 160.02, cm, 10/19/20 11:04:00 EDT, Height, 156... Start Date: 10/27/20 Status: Ordered betamethasone-clotrimazole 0.05%-1% topical cream 1 application, Topically, 2 times a day, # 45 Gm, 0 Refills, Maintenance, 12/27/20 14:13:00 EDT, [place], [facility]/pharmacy #2024, Partial fill upon patient request if the prescription is for a schedule II opioid drug., 1 application Topically 2 times a day,... Start Date: 12/27/20 Status: Ordered diclofenac 1% topical gel See Instructions, APPLY TOPICALLY 4 TIMES A DAY, # 100 Gm, 1 Refills, 10/27/20 12:37:00 EDT, [facility]/pharmacy #2024, 25, APPLY TOPICALLY 4 TIMES A DAY, 160.02, cm, 10/19/20 11:04:00 EDT, Height, 156.81, kg, 10/19/20 11:04:00 EDT, Dry Weight Start Date: 10/27/20 Status: Ordered FLUoxetine 20 mg oral capsule 20 mg, 1, capsule, By Mouth, Daily, # 30 capsule, Refills 5, Tot. Refills 5, Maintenance, 12/20/20 14:39:00 EDT, Route to Pharmacy Electronically, [facility]/pharmacy #2024, replacing 10mg dose, 160.02, cm,12/20/20 11:59:00 EDT, Height, 156.81, kg, 10/19/20... Start Date: 12/20/20 Status: Ordered levothyroxine 0.137 mg oral tablet See Instructions, Take 1 tablet by mouth on days 1-6, then take 2 tablets by mouth on day 7, # 121 tablet, 5 Refills, Maintenance, 12/07/20 9:46:00 EDT, [facility]/pharmacy #2024, 160.02, cm, 10/19/20 11:04:00 EDT, Height, 156.81, kg, 10/19/20 11:04:00 EDT,... Start Date: 12/07/20 Status: Ordered meloxicam 15 mg oral tablet 1 tablet, By Mouth, Daily, WITH FOOD., # 30 tablet, 1 Refills, Maintenance, 02/13/21 16:32:00 EDT, [facility], 160.02, cm, 01/04/21 10:42:00 EDT, Height, 143, [...] 08/04/19 17:54:00 EST, Route to Pharmacy Electronically, [facility]/pharmacy #2024, 161, cm, 08/04/19 14:44:00 EST, [...] 05/20/21 10:28:00 EDT, 01/20/21 10:28:00 EDT, Tablet, [facility]/pharmacy#2025, 160.02, cm, 01/04/21 10:42:00 EDT, Height,... Start Date: 01/20/21 Stop Date: 05/20/21 Status: Ordered zolpidem 10 mg oral tablet 1 tablet = 10 mg, By Mouth, Daily at bedtime, PRN for sleep, for 30 days, masspat check may fill less, # 30 tablet, 3 Refills, Acute 03/19/21 10:02:00 EDT, 11/19/20 10:02:00 EDT, Tablet, [facility]/pharmacy#2025, 160.02, cm, 10/19/20 11:04:00 EDT, Height,... Start Date: 11/19/20 Stop Date: 03/19/21 Status: Ordered zolpidem 10 mg oral tablet 1 tablet = 10 mg, By Mouth, Daily at bedtime, PRN for sleep, for 30 days, masspat check may fill less, # 30 tablet, 0 Refills, Acute 03/19/21 16:45:00 EDT, 02/17/21 16:45:00 EDT, Tablet, [facility]/pharmacy#2025, 160.02, cm, 01/04/21 10:42:00 EDT, Height,... Start [...]
--- OUTSIDE RECORDS SUMMARY | 2024-06-24 14:21 | XMS_ITS | Continuity of Care Document ---
Author Organization [facility] Address [address] [place] [address]- Care Team Providers Care Machine Shop Worker Name Role Phone Vivi HENNING, Celestina Givens Primary Care Physician Encounter [facility] Date(s): 02/13/24 - 03/14/24 [facility] [address] [place] [address]- Allergies, Adverse Reactions, Alerts No Known Allergies [...] 08/21/22 Given tetanus/diphtheria/pertussis, acel(Tdap) 7 08/13/12 Given [id number]-ZtW-3pLTT 12y+ bivalent booster vax 06/14/22 Recorded SARS-CoV-2 mRNA (rbaztax-tquw-pglah) vax 02/14/22 Recorded SARS-CoV-2 (COVID-19) mRNA BNT-162b2 vac 05/06/21 Given SARS-CoV-2 (COVID-19) mRNA BNT-162b2 vac 11/04/20 Recorded SARS-CoV-2 (COVID-19) mRNA BNT-162b2 vac 10/14/20 Recorded pneumococcal 23-valent vaccine 8 04/07/19 Given 1Result Comment: screening negative 2Result Comment: [facility]# [id number] 3Result Comment: [05/25/2018] [facility] lot number [id number] exp 01/26/2019 [facility] [id number] 4Result Comment: [08/20/2017] [facility] [id number] 5Admin Note: VIM dated 01/29/12 GIVEN TODAY 6Result Comment: [facility]# [id number] 7Admin Note: VIM dated 08/22/11 GIVEN TODAY 8Result Comment: [facility]#[id number] Medications acetaminophen 500 mg oral capsule 2 [...] 1 Refills, Soft Stop, 12/06/23 17:28:00 EDT, [facility]/pharmacy #5, Partial fill upon patient [...] 05/17/24 16:46:00 EDT, Route to Pharmacy Electronically, [facility]/pharmacy #2024, Partial fill upon patient request if the prescription is for a... Start Date: 05/17/24 Status: Ordered cyclobenzaprine 10 mg oral tablet 10 mg, 1, tablet, By Mouth, 3 times a day, PRN, # 30 tablet, Refills 0, Tot. Refills 0, Acute 05/17/24 16:46:00 EDT, for spasm, 05/17/23 16:45:00 EDT, Route to Pharmacy Electronically, [facility]/pharmacy #2024, Partial fill upon patient [...] Refills, Maintenance, 02/01/24 13:44:00 EDT, [id number], 30, APPLY TO AFFECTED AREA 4 TIMES [...] Gm, 0 Refills, Maintenance, 02/28/21 16:31:00 EDT, [place], [facility]/pharmacy #5, Partial fill upon patient request if the prescription is for... Start Date: 02/28/21 Status: Ordered FLUoxetine 10 mg oral capsule 1, capsule, By Mouth, Daily, INSTR:TO BE TAKEN WITH 20MG CAPSULES TO EQUAL 30MG DAILY, # 90 capsule, Refills 1, Maintenance, 01/25/24 9:11:00 EDT, Route to Pharmacy Electronically, [facility], 157.5, cm, 01/22/24 10:31:00 EDT, Height, 145.9, kg,... Start Date: 01/25/24 Status: Ordered gabapentin 300 mg oral capsule 600 mg, 2, capsule, By Mouth, 3 times a day, # 180 capsule, Refills 3, Tot. Refills 3, Maintenance,08/25/22 22:35:00 EST, Route to Pharmacy Electronically, [facility]/pharmacy #2024, Partial fill upon patient [...] Refills, Maintenance, 12/28/23 16:17:00 EDT, [facility], 157.5, cm, 10/18/23 15:15:00 EDT, Height, 145.9, [...] tablet, 5 Refills, Maintenance, 10/08/23 17:05:00 EDT, [facility]/pharmacy #2025, 157.5, cm, 07/13/23 9:57:00 EST, Height, 145.9, kg, 237:39:00 EDT, Dry Weight Start Date: 10/08/23 Status: Ordered metFORMIN 500 mg oral tablet, extended release 1 tablet = 500 mg, By Mouth, Daily, # 90 tablet, 1 Refills, Maintenance, 01/22/24 11:02:00 EDT, ER Tablet, [facility]/pharmacy #2025, Partial fill upon patient [...] Code MRI Safety Implantable Status Assigning Authority [id number] Unknown [id number] Unknown 08/26/24 Unknown Unknown Active GS1 Patient Care team information Care Team Personnel Name: Celestina Trinidad MD Position: [facility] Physician - Primary Care Member Role: PCP Address: Address: [address] [place] [address] Name: Hemalatha Lucas RN Position: [facility] RN Member Role: Primary Care Nurse Name: Lauren Mack RN Position: [facility] MARY Nurse Member Role: Primary Care Nurse Name: Madelaine Ruiz RN Position: [facility] RN Member Role: Primary Care Nurse Name: Lora Santiago RN Position: [facility] RN Member Role: Primary Care Nurse Name: Mayco Ro RN Position: [facility] RN Member Role: Primary Care Nurse Name: Heydi Potts RN Position: [facility] SN RN Member Role: Primary Care Nurse Name: Janice Romano LPN Position: [facility] RN Member Role: Primary Care Nurse Name: Nadya Low RN Position: [facility] RN Member Role: Primary Care Nurse Name: Mirna Greenfield RN Position: [facility] RN Member Role: Primary Care Nurse Name: Nessa Bonilla RN Position: [facility] Stripping Shovel Operator Member Role: Primary Care Nurse Care Team Related Persons Name: DINESH SARGENT Address: home [address] [place] [address] Name: BON DE Address: home [address] [place] [id number]
--- OUTSIDE RECORDS SUMMARY | 2024-06-24 14:21 | XMS_ITS | Continuity of Care Document ---
Author Organization [facility] Address [address] [place] [address]- Care Team Providers Care Database Marketing Specialist Name Role Phone Vivi HENNING, Celestina Givens Primary Care Physician Encounter [facility] Date(s): 07/20/22 - 08/19/22 [facility] [address] [place] [address]- Allergies, Adverse Reactions, Alerts No Known Allergies Immunizations Given and Recorded Vaccine Date Status Refusal Reason [id number] 12y+ bivalent booster vax 06/14/22 Recorded influenza [...] inactivated 4 07/31/12 Gi hali SARS-CoV-2 mRNA (mbyvyrm-xwhb-pedqp) vax 02/14/22 Recorded SARS-CoV-2 (COVID-19) mRNA BNT-162b2 vac 05/06/21 Given SARS-CoV-2 (COVID-19) mRNA BNT-162b2 vac 11/04/20 Recorded SARS-CoV-2 (COVID-19) mRNA BNT-162b2 vac 10/14/20 Recorded pneumococcal 23-valent vaccine 5 04/07/19 Given tetanus/diphtheria/pertussis, acel(Tdap) 6 08/13/12 Given 1Result Comment: [facility]# [id number] 2Result Comment: [05/25/2018] [facility] lot number [id number] exp 01/26/2019 [facility] [id number] 3Result Comment: [08/20/2017] [facility] 14276-659-01 4Admin Note: VIM dated 01/29/12 GIVEN TODAY 5Result Comment: [facility]#[id number] 6Admin Note: VIM dated 08/22/11 GIVEN TODAY [...] Stop, 04/10/2215:14:00 EDT, Route to Pharmacy Electronically, [id number], [facility]/pharmacy #2025, 158, cm, 04/10/22 14:56:00 EDT, Height, 143,... Start Date: 04/10/22 Status: Ordered amLODIPine 10 mg oral tablet 1 tablet, By Mouth, Daily, # 90 tablet, 0 Refills, Maintenance, 07/21/22 17:34:00 EST, [facility], 158, cm, 07/21/22 15:09:00 EST, Height, 143, kg, 01/04/21 10:42:00 EDT, Dry Weight Start Date: 07/21/22 Status: Ordered Anoro Ellipta 62.5 mcg-25 mcg/inh inhalation powder 1 puffs, By Mouth, Daily, # 1 each, 6 Refills, Maintenance, 05/11/22 13:00:00 EDT, Powder, [facility], Partial fill upon patient request [...] 0 Refills, Maintenance, 08/01/22 16:58:00 EST, Tablet, [facility]/pharmacy #202, Partial fill upon patient request if [...] 100 Gm, 1 Refills, 09/19/21 12:51:00 EST, [facility]/pharmacy #202, 25, APPLY TOPICALLY 4 TIMES A [...] 0 Refills, Maintenance, 02/28/21 16:31:00 EDT, [place], [facility]/pharmacy #202, Partial fill upon patient request if the prescription is for... Start Date: 02/28/21 Status: Ordered FLUoxetine 20 mg oral capsule See Instructions, TAKE 1 CAPSULE BY MOUTH EVERY DAY, # 90 capsule, Refills 1, Maintenance, 06/13/2215:26:00 EST, Instructions Replace Required Details, Route to Pharmacy Electronically, [facility], 158, cm, 06/09/22 11:21:00 EST, Height, 143, kg... Start Date: 06/13/22 Status: Ordered gabapentin 300 mg oral capsule 600 mg, 2, capsule, By Mouth, 2 times a day, # 120 capsule, Refills 1, Tot. Refills 1, Maintenance,07/22/22 8:06:00 EST, Route to Pharmacy Electronically, [facility]/pharmacy #2024, Partial fill upon patient request if the prescription is for a schedule II... Start Date: 07/22/22 Status: Ordered levothyroxine 0.137 mg oral tablet 1 tablet = 137 mcg, By Mouth, Daily, 1 tab on days 1-6, take 2 tabs on day 7, # 102 tablet, 1 Refills, Maintenance, 07/03/22 14:41:00 EST, Tablet, [facility]/pharmacy #202, Partial fill upon patient request if the prescription is for a schedule II opioid dr... Start Date: 07/03/22 Status: Ordered levothyroxine 0.137 mg oral tablet See Instructions, TAKE 1 TABLET BY MOUTH ON DAYS 1-6, THEN TAKE 2 TABLETS BY MOUTH ON DAY 7 Needs TSH lab work for refills, # 96 tablet, 0 Refills, 06/29/22 15:47:00 EST, [facility]/pharmacy #2024, 158, cm,06/09/22 11:21:00 EST, Height, 143, kg, 01/04/21 1... Start Date: 06/29/22 Status: Ordered meclizine 25 mg oral tablet See Instructions, PRN Dizziness, 1 tablet By Mouth 3 times a day, # 30 tablet, 0 Refills, Maintenance, 05/11/21 13:11:00 EDT, [facility]/pharmacy #2024, Partial fill upon patient request [...] 0 Refills, Maintenance, 08/01/22 16:58:00 EST, Tablet, [facility]/pharmacy #2024, Partial fill upon patient request [...] Acute 09/27/22 16:00:00 EST, 08/01/22 21:26:00EST, Ointment, [facility]/pharmacy #2024, Partial fill upon patient request [...] Celestina Trinidad MD Position: [facility] Primary Care Physician Member Role: PCP Address: Address: [address] [place] [id number] Name: Lauren Mack RN Position: [facility] AMB Nurse Member Role: Primary Care Nurse Name: Lora Santiago RN Position: [facility] RN Member Role: Primary Care Nurse Name: Mayco Ro RN Position: [facility] RN Member Role: Primary Care Nurse Name: Heydi Potts RN Position: [facility] RN Member Role: Primary Care Nurse Name: Nadya Low RN Position: [facility] RN Member Role: Primary Care Nurse Name: Mirna Greenfield RN Position: [facility] RN Member Role: Primary Care Nurse Name: Nessa Bonilla RN Position: [facility] Hospital Accounting/Finance Tutor Member Role: Primary Care Nurse Care Team Related Persons Name: ROSETTAROLA JOHNSONELLE Address: home [address] [place] [address] Name: BON DE Address: home [address] [place] [address]
--- OUTSIDE RECORDS SUMMARY | 2024-06-24 14:22 | XMS_ITS | Continuity of Care Document ---
Author Organization [facility] Address [address] [place] [address]- Care Team Providers Care Capacitor Assembler Name Role Phone Kareen HENNING, Patrick Graham Primary Care Physician [phone] Encounter [facility] Date(s): 01/08/20 - 02/07/20 [facility] [address] [place] [address]- [facility] Attending Physician: Calixto Beltran Admitting Physician: AdmtrCalixto [...] 1Result Comment: [facility]# [id number] 2Result Comment: [05/25/2018] [facility] lot number [id number] exp 01/26/2019 [facility] [id number] 3Result Comment: [08/20/2017] [facility] [id number] 4Admin Note: VIM dated 01/29/12 GIVEN TODAY 5Result Comment: [facility]#[id number] 6Admin Note: VIM dated 08/22/11 GIVEN TODAY [...] PUFFS EVERY 6 HOURS NEEDED FOR WHEEZE, [facility]/pharmacy #2024 Start Date: 05/27/19 Status: Ordered diclofenac 1% topical gel 1 applicator, Topically, 4 times a day, # 100 Gm, 0 Refills, Maintenance, 08/22/19 12:32:00 EST, Gel, [facility]/pharmacy #2024, 161, cm, 08/12/19 12:43:00 EST, Height Start Date: 08/22/19 Status: Ordered FLUoxetine 20 mg oral capsule 20 mg, 1, capsule, By Mouth, Daily, # 30 capsule, Refills 4, Tot. Refills 4, Maintenance, 08/30/19 20:34:00 EST, Route to Pharmacy Electronically, [facility]/pharmacy #2024, replacing 10mg dose, 161, cm, 08/12/19 12:43:00 EST, Height Start Date: 08/30/19 Status: Ordered levothyroxine 125 mcg (0.125 mg) oral tablet 1 tablet = 125 mcg, By Mouth, Daily, # 30 tablet, 5 Refills, Maintenance, 11/11/19 14:50:00 EDT, Tablet, [facility]/pharmacy #2024, 161, cm, 10/07/19 9:57:00 EDT, Height Start Date: 11/11/19 Status: Ordered meloxicam 15 mg oral tablet 1 tablet = 15 mg, By Mouth, Daily, Take w food., # 30 tablet, 1 Refills, Maintenance, 12/31/19 8:12:00 EDT, Tablet, [facility]/pharmacy #2024, Labs needed for further refills, [...] 08/04/19 17:54:00 EST, Route to Pharmacy Electronically, [facility]/pharmacy #5, 161, cm, 08/04/19 14:44:00 EST, [...] 04/17/20 12:28:00 EDT, 12/19/19 12:28:00 EDT, Tablet, [facility]/pharmacy#5, 161, cm, 10/07/19 9:57:00 EDT, Height [...]
--- OUTSIDE RECORDS SUMMARY | 2024-06-24 14:22 | XMS_ITS | Continuity of Care Document ---
Author Organization [facility] Address [address] [place] [address]- Care Team Providers Care Snack Steward Name Role Phone Celestina Trinidad MD Primary Care Physician Encounter [facility] [id number] Date(s): 08/21/22 - 08/28/22 [facility] [address] [place] [address]- Attending Physician: Ever Haywood Referring Physician: Celestina Trinidad MD Allergies, Adverse Reactions, Alerts No Known Allergies Immunizations Given and Recorded Vaccine Date Status Refusal Reason tetanus/diphtheria/pertussis, acel(Tdap) 1 08/21/22 Given tetanus/diphtheria/pertussis, acel(Tdap) 2 08/13/12 Given QQGA-ClL-3xKNO 12y+ bivalent booster vax 06/14/22 Recorded influenza [...] inactivated 6 07/31/12 Gi hali SARS-CoV-2 mRNA (tfojvqn-ueig-cpjyr) vax 02/14/22 Recorded SARS-CoV-2 (COVID-19) mRNA BNT-162b2 vac 05/06/21 Given SARS-CoV-2 (COVID-19) mRNA BNT-162b2 vac 11/04/20 Recorded SARS-CoV-2 (COVID-19) mRNA BNT-162b2 vac 10/14/20 Recorded pneumococcal 23-valent vaccine 7 04/07/19 Given 1Result Comment: [facility]# [id number] 2Admin Note: VIM dated 08/22/11 GIVEN TODAY 3Result Comment: [facility]# [id number] 4Result Comment: [05/25/2018] [facility] lot number [id number] exp 01/26/2019 [facility] [id number] 5Result Comment: [08/20/2017] [facility] [id number] 6Admin Note: VIM dated 01/29/12 GIVEN TODAY 7Result Comment: [facility]#[id number] Medications acetaminophen 500 mg oral capsule 2 [...] Stop, 04/10/2215:14:00 EDT, Route to Pharmacy Electronically, [id number], [facility]/pharmacy #2025, 158, cm, 04/10/22 14:56:00 EDT, Height, 143,... Start Date: 04/10/22 Status: Ordered amLODIPine 5 mg oral tablet 1 tablet, By Mouth, Daily, # 30 tablet, 5 Refills, Maintenance, 08/24/22 20:08:00 EST, [facility], 159, cm, 08/21/22 11:38:00 EST, Height, 143, [...] Refills, Maintenance, 08/20/22 11:31:00 EST, [facility], 159, cm, 08/15/22 11:23:00 EST, Height, 143, [...] Gm, 1 Refills, 09/19/21 12:51:00 EST, [facility]/pharmacy #2025, 25, APPLY TOPICALLY 4 TIMES A DAY, 160.02, cm, 07/25/21 16:20:00 EST, Height, 143, kg,01/04/21 10:42:00 EDT, Dry Weight Start Date: 09/19/21 Status: Ordered Diflucan 100 mg oral tablet 1 tablet = 100 mg, By Mouth, Daily, Patient taking 200 mg, 0 Refills, Maintenance, 08/25/22 11:14:00 EST, Partial fill upon patient request if the prescription is for a schedule II opioid drug. Start Date: 08/25/22 Status: Ordered doxycycline hyclate 100 mg oral tablet 1 tablet, By Mouth, 2 times a day, # 20 tablet, 0 Refills, Maintenance, 08/10/22 16:34:00 EST, [facility]/pharmacy #2024, 159, cm, 08/01/22 14:14:00 EST, Height, 143, kg, 01/04/21 10:42:00 EDT, Dry Weight Start Date: 08/10/22 Stop Date: 08/20/22 Status: Ordered Flonase 50 mcg/inh nasal spray See Instructions, 2 sprays Nares twice daily x 1 week, then once daily x 1-2 weeks until symptoms improve, # 16 Gm, 0 Refills, Maintenance, 02/28/21 16:31:00 EDT, [place], [facility]/pharmacy #202, Partial fill upon patient request if the prescription is for... Start Date: 02/28/21 Status: Ordered FLUoxetine 20 mg oral capsule See Instructions, TAKE 1 CAPSULE BY MOUTH EVERY DAY, # 90 capsule, Refills 1, Maintenance, 06/13/2215:26:00 EST, Instructions Replace Required Details, Route to Pharmacy Electronically, [facility], 158, cm, 06/09/22 11:21:00 EST, Height, 143, kg... Start Date: 06/13/22 Status: Ordered gabapentin 300 mg oral capsule 600 mg, 2, capsule, By Mouth, 2 times a day, # 120 capsule, Refills 1, Tot. Refills 1, Maintenance,07/22/22 8:06:00 EST, Route to Pharmacy Electronically, [facility]/pharmacy #2025, Partial fill upon patient request if the prescription is for a schedule II... Start Date: 07/22/22 Status: Ordered gabapentin 300 mg oral capsule [...] tablet, 0 Refills, 06/29/22 15:47:00 EST, [facility]/pharmacy #2024, 158, cm,06/09/22 11:21:00 EST, [...] 0 Refills, Maintenance, 08/01/22 16:58:00 EST, Tablet, [facility]/pharmacy [...] Acute 09/27/22 16:00:00 EST, 08/01/22 21:26:00EST, [facility]int[facility], [facility], Partial fill upon patient request [...] oldest [Reference Range]: 1 Height 159 cm (08/21/22 11:38 AM) Oxygen Saturation [94-100 %] 97 % (08/21/22 11:38 AM) Pulse Rate [55-90 bpm] 84 bpm (08/21/22 11:38 AM) Blood Pressure [90-138/55-84 mm Hg] 164/ 100mm Hg *H* (08/21/22 11:38 AM) Respiratory Rate [16-30 br/min] 20 br/mi n (08/21/22 11:38 AM) Temperature [96.8-100.4 DegF] 95.4 DegF *L* (08/21/22 11:38 AM) Mode of Delivery (Oxygen) Room air (08/21/22 11:38 AM) Blood pressure sites Arm, right (08/21/22 11:38 AM) Temperature Route Temporal (08/21/22 11:38 AM) Social History Social History Type Response Smoking Status Former smoker, quit more than 30 days ago; Other: smoked up to pack a day x 25 years; entered on: 11/14/21 Sex Note * Ever Haywood: PERFORM, SIGN, VERIFY Event Display: Patient Education/Instruction Authored Date: [id number] [facility] *[facility] Clinical Summary Name JORGE ALBERTO SAHU Age 62 Years 1960 PCP Vivi HENNING, Celestina Givens PCP Visit Date 08/21/2022 11:23:00 Additional Instructions: Laceration closed with three 4-0 ethilon sutures. Wound covered with Bacitracin ointment and gauze.Tdap 0.5 cc given IM in office as it has been greater than 10 years since your last one. Keep clean and dry for 24 hours. Then may get wet briefly in the shower and pat dry gently. Change dressing daily with antibiotic ointment and a band aid.??? Just a bandaid after the first 3-4 days.??? May wash with warm soap and water in between dressing changes. Keep covered while active, but mayleave open to air while at rest. Rest and elevate as much as practical. Ice 15-20 minutes at a time every 2-3 times daily, especially for the first 48 hours. Tylenol (acetaminophen) 1000mg every 6-8 hours as needed for pain. Monitor for signs of infection including increased pain/swelling, spreading redness, red streaking,purulent discharge, high fever or any other concerning symptoms. Return or follow up with primary care provider if any of these occur. Return for suture removal in 10-14 days. Scheduled Appointments?? Future Appointments ?*[facility] ?[address]??[place],??[place],??[address] ?Phone:??--?Fax:??-- ?Appt. Date:??08/25/2022?11:40 AM ?Scheduled Provider:??Hui HENNING , Jeannine Moreira ?*[facility] ?[address]??[place],??[place],??[address] ?Phone:??--?Fax:??-- ?Appt. Date:??09/12/2022?10:40 AM ?Scheduled Provider:??Gera HENNING, [...] Breath. Refills: 11. Next Dose: Amlodipine (amLODIPine 10 mg oral tablet) 1 tab(s) Oral Daily. Refills: 0. Next Dose: Cilostazol (cilostazol 100 mg oral [...] Allergy Info:?? NKA Medications Given This Visit Medication Dose Route tetanus/diphtheria/pertussis, acel(Tdap) ((Tdap) diphtheria/pertussis, acel/tetanus vacc) 0.5 mL Intramuscular Future Orders ?No future orders Vital Signs Height 159 cm Weight BMI Blood Pressure 164 mm Hg/100 mm Hg Temperature 95.4 DegF Pulse Rate 84 bpm Respiratory Rate 20 br/min 02 Sat Mode of Delivery 97 %/Room air You can now view a summary of your hospital visit from the comfort of your home through a free online portal called [employer]. [employer] is a website that allows you to securely view your medical information including discharge summary, medications and follow-up visits. ??You can alsosend a secure electronic message to your doctor???s office to request appointments, renew medications or just ask a question. You can enroll at [email or web address] or register during your next office visit. [...] care provider, you may find a [facility] provider by calling [facility] at [phone]. For information about the plan of care [...] Care Physician Member Role: PCP Address: Address: [address] [place] [id number] Name: Lauren Mack RN Position: [facility] [...] Care Nurse Name: Nessa Bonilla RN Position: [facility] Director Digital Catalogue Member Role: Primary Care Nurse Care Team Related Persons Name: DINESH SARGENT Address: home [address] [place] [address] Name: BON DE Address: [address] [address]
--- OUTSIDE RECORDS SUMMARY | 2024-06-24 14:22 | XMS_ITS | Continuity of Care Document ---
Author Organization [facility] Address [address] [place] [address]- Care Team Providers Care Nursery Teacher Name Role Phone Vivi HENNING, Celestina Givens Primary Care Physician [facility] - 08/31/23 [facility] [address] [place], [place] [address] Allergies, Adverse Reactions, Alerts [...] 08/21/22 Given tetanus/diphtheria/pertussis, acel(Tdap) 7 08/13/12 Given [id number]-[id number] 12y+ bivalent booster vax 06/14/22 Recorded SARS-CoV-2 mRNA (upbojlh-vbof-ndzid) vax 02/14/22 Recorded SARS-CoV-2 (COVID-19) mRNA BNT-162b2 vac 05/06/21 Given SARS-CoV-2 (COVID-19) mRNA BNT-162b2 vac 11/04/20 Recorded SARS-CoV-2 (COVID-19) mRNA BNT-162b2 vac 10/14/20 Recorded pneumococcal 23-valent vaccine 8 04/07/19 Given 1Result Comment: screening negative 2Result Comment: [facility]# [id number] 3Result Comment: [05/25/2018] [employer] lot number [id number] exp 01/26/2019 [facility] [id number] 4Result Comment: [08/20/2017] [facility] [id number] 5Admin Note: VIM dated 01/29/12 GIVEN TODAY 6Result Comment: [facility]# [id number] 7Admin Note: VIM dated 08/22/11 GIVEN TODAY 8Result Comment: [facility]#[id number] Medications acetaminophen 500 mg oral capsule 2 [...] 05/17/23 16:45:00 EDT, Route to Pharmacy Electronically, [facility]/pharmacy #202, Partial fill upon patient request if the presc... Start Date: 05/17/23 Stop Date: 05/17/24 Status: Ordered diclofenac 1% topical gel See Instructions, APPLY TOPICALLY 4 TIMES A DAY, # 100 Gm, 1 Refills, Maintenance, 06/05/23 10:25:00 EST, [facility]/pharmacy #2024, 50, APPLY TOPICALLY 4 [...] Gm, 0 Refills, Maintenance, 02/28/21 16:31:00 EDT, [place], [facility], Partial fill upon patient request [...] 07/31/23 19:01:00 EST, Route to Pharmacy Electronically, [facility]/pharmacy #2024, 157.5, cm, 07/13/23 9:57:00 EST, Height, 145.9, kg, 05/22/23 7:39:00 EDT, Dry Weight Start Date: 07/31/23 Status: Ordered gabapentin 300 mg oral capsule 600 mg, 2, capsule, By Mouth, 3 times a day, # 180 capsule, Refills 3, Tot. Refills 3, Maintenance,08/25/22 22:35:00 EST, [facility] upon patient [...] tablet, 2 Refills, Maintenance, 02/27/23 7:25:00 EDT, [facility] STORE 40533, 157, cm, 12/08/22 14:27:00 EDT, Height, 145, kg, 08/29/22 20:13:00 EST, Dry... Start Date: 02/27/23 Status: Ordered levothyroxine 150 mcg (0.15 mg) oral tablet 1 tablet = 150 mcg, By Mouth, Daily, # 90 tablet, 0 Refills, Maintenance, 07/15/23 17:38:00 EST, Tablet, [facility]/pharmacy #2024, [...] Refills, Maintenance, 07/28/23 10:21:00 EST, [facility], 157.5, cm, 07/13/23 9:57:00 EST, Height, 145.9, [...] tablet, 0 Refills, Maintenance, 08/09/23 20:17:00 EST, [facility]/pharmacy #2024, Partial fill [...] Code MRI Safety Implantable Status Assigning Authority [id number] Unknown [id number] Unknown 08/26/24 Unknown Unknown Active GS1 Patient Care team information Care Team Personnel Name: Celestina Trinidad MD Position: [facility] Physician - Primary Care Member Role: PCP Address: Address: [address] [place] [address]- Name: Hemalatha Lucas RN Position: [facility] RN Member Role: Primary Care Nurse Name: Lauren Mack RN Position: [facility] AMB Nurse Member Role: Primary Care Nurse Name: Madelaine Ruiz RN Position: [facility] RN Member Role: Primary Care Nurse Name: Lora Santiago RN Position: [facility] SN RN Member Role: Primary Care Nurse Name: Mayco Ro RN Position: [facility] RN Member Role: Primary Care Nurse Name: Heydi Potts RN Position: [facility] RN Member Role: Primary Care Nurse Name: Janice Romano LPN Position: [facility] RN Member Role: Primary Care Nurse Name: Nadya Low RN Position: [facility] RN Member Role: Primary Care Nurse Name: Mirna Greenfield RN Position: [facility] RN Member Role: Primary Care Nurse Name: Nessa Bonilla RN Position: [facility] Dry Cleaner Member Role: Primary Care Nurse Care Team Related Persons Name: DINESH SARGENT Address: home [address] [place] [address] Name: BON DE Address: home [address] [place] [address]
--- OUTSIDE RECORDS SUMMARY | 2024-06-24 14:22 | XMS_ITS | Continuity of Care Document ---
Author Organization [facility] Address [address] [place] [address]- Care Team Providers Care Assistant Construction Superintendent Name Role Phone Vivi HENNING, Celestina Givens Primary Care Physician [facility] - 08/18/23 [facility] [address] [place], [place] [address] Allergies, Adverse Reactions, Alerts No [...] 08/21/22 Given tetanus/diphtheria/pertussis, acel(Tdap) 7 08/13/12 Given SJQO-CgH-9pPTL 12y+ bivalent booster vax 06/14/22 Recorded SARS-CoV-2 mRNA (vjxqcsq-kjjv-labhg) vax 02/14/22 Recorded SARS-CoV-2 (COVID-19) mRNA BNT-162b2 vac 05/06/21 Given SARS-CoV-2 (COVID-19) mRNA BNT-162b2 vac 11/04/20 Recorded SARS-CoV-2 (COVID-19) mRNA BNT-162b2 vac 10/14/20 Recorded pneumococcal 23-valent vaccine 8 04/07/19 Given 1Result Comment: screening negative 2Result Comment: [facility]# [id number] 3Result Comment: [05/25/2018] [facility] lot number [id number] exp 01/26/2019 [facility] [id number] 4Result Comment: [08/20/2017] [facility] [id number] 5Admin Note: VIM dated 01/29/12 GIVEN TODAY 6Result Comment: [facility]# [id number] 7Admin Note: VIM dated 08/22/11 GIVEN TODAY 8Result Comment: [facility]#[id number] Medications acetaminophen 500 mg oral capsule 2 [...] Gm, 0 Refills, Maintenance, 02/28/21 16:31:00 EDT, [place], [facility]/pharmacy #2025, Partial [...] EDT, [facility] STORE 89693, 157, cm, 12/08/22 14:27:00 EDT, Height, 145, kg, 08/29/22 20:13:00 EST, Dry... Start Date: 02/27/23 Status: Ordered levothyroxine 150 mcg (0.15 mg) oral tablet 1 tablet = 150 mcg, By Mouth, Daily, # 90 tablet, 0 Refills, Maintenance, 07/15/23 17:38:00 EST, Tablet, [facility]/pharmacy #2024, Partial [...] Refills, Maintenance, 07/28/23 10:21:00 EST, [facility], 157.5, cm, 07/13/23 9:57:00 EST, Height, 145.9, [...] tablet, 0 Refills, Maintenance, 08/05/23 12:22:00 EST, [facility]/pharmacy #5, 157.5, cm, 07/13/23 9:57:00 EST, Height, [...] Code MRI Safety Implantable Status Assigning Authority [id number] Unknown [id number] Unknown 08/26/24 Unknown Unknown Active GS1 Patient Care team information Care Team Personnel Name: Celestina Trinidad MD Position: [facility] Physician - Primary Care Member Role: PCP Address: Address: [address] [place] [id number]- Name: Hemalatha Lucas RN [facility]: [facility] [...] Heydi Potts RN Position: [facility] SN RN Member Role: Primary Care Nurse Name: Janice Romano LPN Position: [facility] RN Member Role: Primary Care Nurse Name: Nadya Low RN Position: [facility] RN Member Role: Primary Care Nurse Name: Mirna Greenfield RN Position: [facility] RN Member Role: Primary Care Nurse Name: Nessa Bonilla RN Position: [facility] Cook Morning Member Role: Primary Care Nurse Care Team Related Persons Name: DINESH SARGENT Address: home [address] [place] [address] Name: BON DE Address: home [address] [address]
--- OUTSIDE RECORDS SUMMARY | 2024-06-24 14:22 | XMS_ITS | Continuity of Care Document ---
Author Organization [facility] Address [address] [place] [address]- Care Team Providers Care Tread Tuber Machine Operator Name Role Phone Noe SIGNAL OPERATOR TECHNICAL, Mónica Graham Primary Care Physician [facility] 07[facility]21 - 08/01/21 [facility] [address] [place] [address]- Attending Physician: Aiyana HENNING, Celina Graham Allergies, Adverse Reactions, Alerts Substance Reaction Severity [...] 08/13/12 Given 1Result Comment: [facility]# [id number] 2Result Comment: [05/25/2018] [employer] lot number [id number] exp 01/26/2019 [facility] [id number] 3Result Comment: [08/20/2017] [facility] [id number] 4Admin Note: VIM dated 01/29/12 GIVEN TODAY 5Result Comment: [facility]#[id number] 6Admin Note: VIM dated 08/22/11 GIVEN TODAY [...] 16:52:00 EST, [place], Route to Pharmacy Electronically, [id number], [facility]/pharmacy #2024, 160.02, cm, 07/25/21 16:20:00 EST, [...] 07/25/21 16:53:00 EST, Route to Pharmacy Electronically, [id number], [facility]/pharmacy #2024, 160.02, cm, 07/25/21 16:20:00 EST, Height, 143... Start Date: 07/25/21 Status: Ordered diclofenac 1% topical gel See Instructions, APPLY TOPICALLY 4 TIMES A DAY, # 100 Gm, 1 Refills, 10/27/20 12:37:00 EDT, [facility]/pharmacy #2024, 25, APPLY TOPICALLY 4 TIMES A DAY, 160.02, cm, 10/19/20 11:04:00 EDT, Height, 156.81, kg, 10/19/20 11:04:00 EDT, Dry Weight Start Date: 10/27/20 Status: Ordered Flonase 50 mcg/inh nasal spray See Instructions, 2 sprays Nares twice daily x 1 week, then once daily x 1-2 weeks until symptoms improve, # 16 Gm, 0 Refills, Maintenance, 02/28/21 16:31:00 EDT, [place], [facility]/pharmacy #202, Partial fill upon patient request if the prescription is for... Start Date: 02/28/21 Status: Ordered FLUoxetine 10 mg oral capsule 10 mg, 1, capsule, By Mouth, Daily, Take with 20mg capsule for total of 30mg daily, # 90 capsule, Refills 1, Tot. Refills 1, Maintenance, 05/04/21 16:44:00 EDT, Route to Pharmacy Electronically, [facility]/pharmacy #202, Partial fill upon patient request if... Start Date: 05/04/21 Status: Ordered FLUoxetine 20 mg oral capsule 20 mg, 1, capsule, By Mouth, Daily, Take with Fluoxetine 10mg for a total of 30mg, # 90 capsule, Refills 1, Tot. Refills 1, Maintenance, 05/04/21 16:44:00 EDT, Route to Pharmacy Electronically, [facility]/pharmacy #202, replacing 10mg dose, 160.02, cm, 08/0... Start Date: 05/04/21 Status: Ordered levothyroxine 0.137 mg oral tablet See Instructions, Take 1 tablet by mouth on days 1-6, then take 2 tablets by mouth on day 7, # 121 tablet, 5 Refills, Maintenance, 12/07/20 9:46:00 EDT, [facility]/pharmacy #202, 160.02, cm, 10/19/20 11:04:00 EDT, Height, 156.81, kg, 10/19/20 11:04:00 EDT,... Start Date: 12/07/20 Status: Ordered meclizine 25 mg oral tablet See Instructions, PRN Dizziness, 1 tablet By Mouth 3 times a day, # 30 tablet, 0 Refills, Maintenance, 05/11/21 13:11:00 EDT, [facility]/pharmacy #202, Partial fill upon patient request if the prescriptionis for a schedule II opioid drug., 160.02, cm, 0... Start Date: 05/11/21 Status: Ordered meloxicam 15 mg oral tablet 1 tablet, By Mouth, Daily, WITH FOOD., # 30 tablet, 0 Refills, [facility] STORE 61216, 160.02, cm, 05/06/21 10:09:00 EDT, Height, 143, [...] 17:54:00 EST, Route to Pharmacy Electronically, [facility]/pharmacy #2024, 161, cm, 08/04/19 14:44:00 EST, [...] oldest [Reference Range]: 1 Height 160.02 cm (07/25/21 4:20 PM) Oxygen Saturation [94-100 %] 97 % (07/25/21 4:20 PM) Pulse Rate [55-90 bpm] 71 bpm (07/25/21 4:20 PM) Blood Pressure [90-138/55-84 mm Hg] 146/ 76mm Hg *H* (07/25/21 4:20 PM) Blood pressure sites Arm, left (07/25/21 4:20 PM) Social History Social History Type Response Smoking Status Former smoker, quit more than 30 days ago entered on: 07/25/21 Sex
--- OUTSIDE RECORDS SUMMARY | 2024-06-24 14:22 | XMS_ITS | Continuity of Care Document ---
Author Organization [facility] Address [address] [place] [address]- Care Team Providers Care Wind Development Director Name Role Phone Florentino AHN, Elder Hannah Primary Care Physician [facility] 07[facility]20 - 08/07/20 [facility] [address] [place] [address]- Allergies, Adverse Reactions, Alerts Substance Reaction Severity [...] acel(Tdap) 6 08/13/12 Given 1Result Comment: [facility]# [id number] 2Result Comment: [05/25/2018] [facility] lot number [id number] exp 01/26/2019 [facility] [id number] 3Result Comment: [08/20/2017] [facility] [id number] 4Admin Note: VIM dated 01/29/12 GIVEN TODAY 5Result Comment: [facility]#[id number] 6Admin Note: VIM dated 08/22/11 GIVEN TODAY [...] PUFFS EVERY 6 HOURS NEEDED FOR WHEEZE, [facility]/pharmacy #2024 Start Date: 05/27/19 Status: Ordered diclofenac 1% topical gel See Instructions, APPLY TOPICALLY 4 TIMES A DAY, # 100 Gm, 0 Refills, Maintenance, [facility],25, APPLY TOPICALLY 4 TIMES A DAY, 161, cm, 06/08/20 13:48:00 EST, Height Start Date: 07/12/20 Status: Ordered FLUoxetine 20 mg oral capsule 20 mg, 1, capsule, By Mouth, Daily, # 30 capsule, Refills 5, Tot. Refills 5, Maintenance, 05/13/20 9:34:00 EDT, Route to Pharmacy Electronically, [facility]/pharmacy #2024, replacing 10mg dose, 161, cm, 05/13/20 8:28:00 EDT, Height Start Date: 05/13/20 Status: Ordered levothyroxine 0.137 mg oral tablet 1 tablet = 137 mcg, By Mouth, Daily, # 30 tablet, 3 Refills, Maintenance, 06/08/20 15:09:00 EST, Tablet, [facility]/pharmacy #2024, 161, cm, 06/08/20 13:48:00 EST, Height Start Date: 06/08/20 Stop Date: 10/06/20 Status: Ordered levothyroxine 125 mcg (0.125 mg) oral tablet 1 tablet = 125 mcg, By Mouth, Daily, # 30 tablet, 5 Refills, Maintenance, 05/13/20 9:34:00 EDT, Tablet, [facility]/pharmacy #2024, 161, cm, 05/13/20 8:28:00 EDT, Height Start Date: 05/13/20 Status: Ordered meloxicam 15 mg oral tablet 1 tablet = 15 mg, By Mouth, Daily, Take w food., # 30 tablet, 1 Refills, Maintenance, 07/08/20 11:31:00 EST, Tablet, [facility]/pharmacy #2025, Labs needed for further refills, [...] 08/04/19 17:54:00 EST, Route to Pharmacy Electronically, [facility]/pharmacy #5, 161, cm, 08/04/19 14:44:00 EST, [...] 09/10/20 9:34:00 EST, 05/13/20 9:34:00 EDT, Tablet, [facility]/pharmacy #2024, 161, cm, 05/13/20 8:28:00 EDT, [...]
--- OUTSIDE RECORDS SUMMARY | 2024-06-24 14:22 | XMS_ITS | Continuity of Care Document ---
Author Organization [facility] Address [address] [place] [address] [address], [address] [place] [address]- Care Team Providers Care Sustainability Manager Name Role Phone Florentino AHN, Elder Hannah Primary Care Physician [phone] [facility] 09[facility] - 10/28/20 [facility] [address] [place] [address], [address] [place] [address]- Allergies, Adverse Reactions, Alerts Substance Reaction Severity [...] 1Result Comment: [facility]# [id number] 2Result Comment: [05/25/2018] [facility] lot number [id number] exp 01/26/2019 [facility] [id number] 3Result Comment: [08/20/2017] [facility] [id number] 4Admin Note: VIM dated 01/29/12 GIVEN TODAY 5Result Comment: [facility]#[id number] 6Admin Note: VIM dated 08/22/11 GIVEN TODAY [...] 10/27/20 14:48:00 EDT, Route to Pharmacy Electronically, [id number], [facility]/pharmacy #2024, 160.02, cm, 10/19/20 11:04:00 EDT, Height, 156... Start Date: 10/27/20 Status: Ordered diclofenac 1% topical gel See Instructions, APPLY TOPICALLY 4 TIMES A DAY, # 100 Gm, 1 Refills, 10/27/20 12:37:00 EDT, [facility]/pharmacy #2024, 25, APPLY TOPICALLY 4 TIMES A DAY, 160.02, cm, 10/19/20 11:04:00 EDT, Height, 156.81, kg, 10/19/20 11:04:00 EDT, Dry Weight Start Date: 10/27/20 Status: Ordered FLUoxetine 20 mg oral capsule 20 mg, 1, capsule, By Mouth, Daily, # 30 capsule, Refills 5, Tot. Refills 5, Maintenance, 05/13/20 9:34:00 EDT, Route to Pharmacy Electronically, [facility]/pharmacy #2024, replacing 10mg dose, 161, cm, 05/13/20 8:28:00 EDT, Height Start Date: 05/13/20 Status: Ordered levothyroxine 0.137 mg oral tablet See Instructions, Take 1 tablet by mouth on days 1-6, then take 2 tablets by mouth on day 7, # 121 tablet, 5 Refills, Maintenance, 10/27/20 12:37:00 EDT, [facility]/pharmacy #2024, 160.02, cm, 10/19/20 11:04:00 EDT, Height, 156.81, kg, 10/19/20 11:04:00 EDT,... Start Date: 10/27/20 Status: Ordered meloxicam 15 mg oral tablet 1 tablet, By Mouth, Daily, WITH FOOD., # 30 tablet, 1 Refills, Maintenance, 10/24/20 10:06:00 EDT, [facility] STORE 52248, 160.02, cm, 10/19/20 11:04:00 EDT, Height, 156.81, [...] 17:54:00 EST, [facility], cm, 08/04/19 14:44:00 EST, Height Start Date: 08/04/19 Stop Date: 08/18/19 Status: Ordered traMADol 50 mg oral tablet 2 tablet = 100 mg, By Mouth, Every 12 hours, for 30 days, as needed for pain masspat checked, # 120tablet, 2 Refills, Hard Stop 11/15/20 16:20:00 EDT, 08/17/20 16:20:00 EST, [facility]/pharmacy #2025, 161,cm, 06/08/20 13:48:00 EST, Height Start Date: 08/17/20 Stop Date: 11/15/20 Status: Ordered traMADol 50 mg oral tablet 2 tablet = 100 mg, By Mouth, Every 12 hours, as needed for pain masspat checked, # 120 tablet, 2 Refills, Maintenance, 09/13/20 16:54:00 EST, [facility]/pharmacy #2025, 161, cm, 08/18/20 15:29:00 EST, Height [...]
--- OUTSIDE RECORDS SUMMARY | 2024-06-24 14:22 | XMS_ITS | Continuity of Care Document ---
Author Organization [facility] Address [address] [place] [address]- Care Team Providers Care Thermostat Mechanic Name Role Phone Florentino AHN, Elder Hannah Primary Care Physician Encounter 12/16/20 - 12/23/20 [facility] [address], [address] [place] [address]- Attending Physician: Florentino AHN, Elder Hannah Admitting Physician: Florentino AHN, Elder Hannah Referring Physician: Florentino AHN, Elder Hannah Allergies, [...] 6 08/13/12 Given 1Result Comment: [facility]# [id number] 2Result Comment: [05/25/2018] [facility] lot number [id number] exp 01/26/2019 [facility] 85772-434-59 3Result Comment: [08/20/2017] [facility] [id number] 4Admin Note: VIM dated 01/29/12 GIVEN TODAY 5Result Comment: [facility]#[id number] 6Admin Note: VIM dated 08/22/11 GIVEN TODAY [...] 10/27/20 14:48:00 EDT, Route to Pharmacy Electronically, [id number], [facility]/pharmacy #2024, 160.02, cm, 10/19/20 11:04:00 EDT, Height, 156... Start Date: 10/27/20 Status: Ordered diclofenac 1% topical gel See Instructions, APPLY TOPICALLY 4 TIMES A DAY, # 100 Gm, 1 Refills, 10/27/20 12:37:00 EDT, [facility]/pharmacy #2024, 25, APPLY TOPICALLY 4 TIMES A DAY, 160.02, cm, 10/19/20 11:04:00 EDT, Height, 156.81, kg, 10/19/20 11:04:00 EDT, Dry Weight Start Date: 10/27/20 Status: Ordered FLUoxetine 20 mg oral capsule 20 mg, 1, capsule, By Mouth, Daily, # 30 capsule, Refills 5, Tot. Refills 5, Maintenance, 12/20/20 14:39:00 EDT, Route to Pharmacy Electronically, [facility]/pharmacy #2024, replacing 10mg dose, 160.02, cm,12/20/20 11:59:00 EDT, Height, 156.81, kg, 10/19/20... Start Date: 12/20/20 Status: Ordered levothyroxine 0.137 mg oral tablet See Instructions, Take 1 tablet by mouth on days 1-6, then take 2 tablets by mouth on day 7, # 121 tablet, 5 Refills, Maintenance, 12/07/20 9:46:00 EDT, [facility]/pharmacy #2024, 160.02, cm, 10/19/20 11:04:00 EDT, Height, 156.81, kg, 10/19/20 11:04:00 EDT,... Start Date: 12/07/20 Status: Ordered meloxicam 15 mg oral tablet 1 tablet, By Mouth, Daily, WITH FOOD., # 30 tablet, 1 Refills, Maintenance, 12/20/20 7:39:00 EDT, [facility], 160.02, cm, 10/19/20 11:04:00 EDT, Height, 156.81, [...] 17:54:00 EST, Route to Pharmacy Electronically, [facility]/pharmacy #5, 161, cm, 08/04/19 14:44:00 EST, Height Start Date: 08/04/19 Stop Date: 08/18/19 Status: Ordered traMADol 50 mg oral tablet 2 tablet = 100 mg, By Mouth, Every 12 hours, as needed for pain masspat checked, # 120 tablet, 2 Refills, Maintenance, 09/13/20 16:54:00 EST, [facility]/pharmacy #5, 161, cm, 08/18/20 15:29:00 EST, [...]
--- OUTSIDE RECORDS SUMMARY | 2024-06-24 14:22 | XMS_ITS | Continuity of Care Document ---
Author Organization [facility] Address [address] [place] [address]- Care Team Providers Care Oven Dumper Name Role Phone Florentino AHN, Elder Hannah Primary Care Physician En[place] [facility] Date(s): 02/22/21 - 03/24/21 [facility] [address] [place] [address]- Allergies, Adverse Reactions, Alerts Substance Reaction Severity [...] [facility]# [id number] 2Result Comment: [05/25/2018] [facility] lot number [id number] exp 01/26/2019 [facility] [id number] 3Result Comment: [08/20/2017] [facility] [id number] 4Admin Note: VIM dated 01/29/12 GIVEN TODAY 5Result Comment: [facility]#[id number] 6Admin Note: VIM dated 08/22/11 GIVEN TODAY [...] 10/27/20 14:48:00 EDT, Route to Pharmacy Electronically, [id number], [facility]/pharmacy #202, 160.02, cm, 10/19/20 11:04:00 EDT, Height, 156... Start Date: 10/27/20 Status: Ordered betamethasone-clotrimazole 0.05%-1% topical cream 1 application, Topically, 2 times a day, # 45 Gm, 0 Refills, Maintenance, 12/27/20 14:13:00 EDT, Cream, [facility]/pharmacy #2024, Partial fill upon patient request if the prescription is for a schedule II opioid drug., 1 application Topically 2 times a day,... Start Date: 12/27/20 Status: Ordered diclofenac 1% topical gel See Instructions, APPLY TOPICALLY 4 TIMES A DAY, # 100 Gm, 1 Refills, 10/27/20 12:37:00 EDT, [facility]/pharmacy #202, 25, APPLY TOPICALLY 4 TIMES A DAY, 160.02, cm, 10/19/20 11:04:00 EDT, Height, 156.81, kg, 10/19/20 11:04:00 EDT, Dry Weight Start Date: 10/27/20 Status: Ordered Flonase 50 mcg/inh nasal spray See Instructions, 2 sprays Nares twice daily x 1 week, then once daily x 1-2 weeks until symptoms improve, # 16 Gm, 0 Refills, Maintenance, 02/28/21 16:31:00 EDT, [place], [facility]/pharmacy #2025, Partial fill upon patient request if the prescription is for... Start Date: 02/28/21 Status: Ordered FLUoxetine 10 mg oral capsule 10 mg, 1, capsule, By Mouth, Daily, Take with 20mg capsule for total of 30mg daily, # 90 capsule, Refills 0, Tot. Refills 0, Maintenance, 03/11/21 12:00:00 EDT, Route to Pharmacy Electronically, [facility]/pharmacy #2024, Partial fill upon patient request if... Start Date: 03/11/21 Status: Ordered FLUoxetine 20 mg oral capsule 20 mg, 1, capsule, By Mouth, Daily, # 30 capsule, Refills 5, Tot. Refills 5, Maintenance, 12/20/20 14:39:00 EDT, Route to Pharmacy Electronically, [facility]/pharmacy #202, replacing 10mg dose, 160.02, cm,12/20/20 11:59:00 EDT, Height, 156.81, kg, 10/19/20... Start Date: 12/20/20 Status: Ordered levothyroxine 0.137 mg oral tablet See Instructions, Take 1 tablet by mouth on days 1-6, then take 2 tablets by mouth on day 7, # 121 tablet, 5 Refills, Maintenance, 12/07/20 9:46:00 EDT, [facility]/pharmacy #2024, 160.02, cm, 10/19/20 11:04:00 EDT, Height, 156.81, kg, 10/19/20 11:04:00 EDT,... Start Date: 12/07/20 Status: Ordered meclizine 25 mg oral tablet See Instructions, PRN Dizziness, 1 tablet By Mouth 3 times a day, # 30 tablet, 0 Refills, Acute 03/31/21 12:00:00 EDT, 03/17/21 9:08:00 EDT, [facility]/pharmacy #2024, Partial fill upon patient request if the prescription is for a schedule II opioid drug., 1... Start Date: 03/17/21 Stop Date: 03/31/21 Status: Ordered meloxicam 15 mg oral tablet 1 tablet, By Mouth, Daily, WITH FOOD., # 30 tablet, 1 Refills, Maintenance, 02/13/21 16:32:00 EDT, [facility] STORE 30549, 160.02, cm, 01/04/21 10:42:00 EDT, Height, 143, [...] tablet, 2 Refills, Maintenance, 02/10/21 12:37:00 EDT, [facility]/pharmacy #2025, 160.02, cm, 01/04/21 10:42:00 EDT, [...]
--- OUTSIDE RECORDS SUMMARY | 2024-06-24 14:22 | XMS_ITS | Continuity of Care Document ---
Author Organization [facility] [employer] [place] [facility] Address [address] [place] [address]- Care Team Providers Care Waiter/Waitress Bar Name Role Phone Kareen HENNING, Patrick Graham Primary Care Physician Encounter [facility] Date(s): 10/07/19 - 10/14/19 [facility] [address] [place] [address] Encounter Diagnosis Bleeding from varicose veins of right lower extremity(Discharge Diagnosis) - 10/07/19 Varicose veins of legs(Discharge Diagnosis) - 10/07/19 Hypothyroidism(Discharge Diagnosis) - 10/07/19 Attending Physician: Norberto Baugh MD Allergies, Adverse [...] 6 08/13/12 Given 1Result Comment: [facility]# [id number] 2Result Comment: [05/25/2018] [facility] lot number [id number] exp 01/26/2019 [facility] [id number] 3Result Comment: [08/20/2017] [facility] [id number] 4Admin Note: VIM dated 01/29/12 GIVEN TODAY 5Result Comment: [facility]#[id number] 6Admin Note: VIM dated 08/22/11 GIVEN TODAY [...] 0 Refills, Maintenance, 08/22/19 12:32:00 EST, Gel, [facility]/pharmacy #2024, 161, cm, 08/12/19 12:43:00 EST, Height Start Date: 08/22/19 Status: Ordered FLUoxetine 20 mg oral capsule 20 mg, 1, capsule, By Mouth, Daily, # 30 capsule, Refills 4, Tot. Refills 4, Maintenance, 08/30/19 20:34:00 EST, [facility] Pharm[facility] Electronically, [facility] 2 Refills, Maintenance, 10/06/19 15:04:00 EDT, Tablet, [facility]/pharmacy #2024, Labs needed for further refills, 161, cm, 08/12/19 12:43:00 EST, Height Start Date: 10/06/19 Status: Ordered tiZANidine 2 mg oral tablet 2 mg, 1, tablet, By Mouth, Daily at bedtime, PRN, # 14 tablet, Refills 0, Tot. Refills 0, Maintenance, as needed for muscle spasm, 08/04/19 17:54:00 EST, Route to Pharmacy Electronically, [facility]/pharmacy #2025, 161, cm, 08/04/19 14:44:00 EST, Height Start Date: 08/04/19 Stop Date: 08/18/19 Status: Ordered traMADol 50 mg oral tablet 2 tablet = 100 mg, By Mouth, Every 12 hours, as needed for pain masspat checked, # 120 tablet, 0 Refills, Maintenance, 08/19/19 12:27:00 EST, [facility]/pharmacy #5, 161, cm, 08/12/19 12:43:00 EST, Height Start [...] Effective Dates Health Status Clinical Service Informant Bleeding from varicose veins of right lower extremity Discharge Diagnosis 10/07/19 Varicose veins of legs Discharge Diagnosis 10/07/19 Hypothyroidism Discharge Diagnosis 10/07/19 Vital Signs Most recent to oldest [Reference Range]: 1 Height 161 cm (10/07/19 9:57 AM) Oxygen Saturation [94-100 %] 98 % (10/07/19 9:57 AM) Pulse Rate [55-90 bpm] 86 bpm (10/07/19 9:57 AM) Blood Pressure [90-138/55-84 mm Hg] 132/ 84mm Hg (10/07/19 9:57 AM) Respiratory Rate [16-30 br/min] 16 br/mi n (10/07/19 9:57 AM) Mode of Delivery (Oxygen) Room air (10/07/19 9:57 AM) Blood pressure sites Arm, right (10/07/19 9:57 AM) Temperature Route Oral (10/07/19 9:57 AM) Social History Social History Type Response Smoking Status Current every day sm oker; Tobacco user in household: No; Type: Cigarettes; Tobacco use times per day: 1/2 ppd; entered on: 07/08/15 Sex
--- OUTSIDE RECORDS SUMMARY | 2024-06-24 14:22 | XMS_ITS | Continuity of Care Document ---
Author Organization [facility] Address [address] [place] [address]- Care Team Providers Care Director Of Marketing Communications Name Role Phone Vivi HENNING, Celestina Givens Primary Care Physician Encounter [facility] Date(s): 03/23/23 - 04/22/23 [facility] [address] [place] [address]- Allergies, Adverse Reactions, Alerts No Known Allergies Immunizations Given and Recorded Vaccine Date Status Refusal Reason tetanus/diphtheria/pertussis, acel(Tdap) 1 08/21/22 Given tetanus/diphtheria/pertussis, acel(Tdap) 2 08/13/12 Given [id number] 12y+ bivalent booster vax 06/14/22 Recorded influenza [...] inactivated 6 07/31/12 Gi hali SARS-CoV-2 mRNA ([id number]) vax 02/14/22 Recorded SARS-CoV-2 (COVID-19) mRNA BNT-162b2 vac 05/06/21 Given SARS-CoV-2 (COVID-19) mRNA BNT-162b2 vac 11/04/20 Recorded SARS-CoV-2 (COVID-19) mRNA BNT-162b2 vac 10/14/20 Recorded pneumococcal 23-valent vaccine 7 04/07/19 Given 1Result Comment: [facility]# [id number] 2Admin Note: VIM dated 08/22/11 GIVEN TODAY 3Result Comment: [facility]# [id number] 4Result Comment: [05/25/2018] [facility] lot number [id number] exp 01/26/[address] [facility] [id number] 5Result Comment: [08/20/2017] [facility] [id number] 6Admin Note: VIM dated 01/29/12 GIVEN TODAY 7Result Comment: [facility]#[id number] Medications acetaminophen 500 mg oral capsule 2 [...] Stop, 04/10/2215:14:00 EDT, Route to Pharmacy Electronically, [id number], [facility]/pharmacy #2025, 158, cm, 04/10/22 14:56:00 EDT, [...] 1 Refills, Maintenance, 01/08/23 9:36:00EDT, [facility], 50, APPLY TOPICALLY 4 TIMES A DAY, [...] Gm, 0 Refills, Maintenance, 02/28/21 16:31:00 EDT, [place], [facility]/pharmacy #2024, Partial fill upon patient request if the prescription is for... Start Date: 02/28/21 Status: Ordered FLUoxetine 10 mg oral capsule 10 mg, 1, capsule, By Mouth, Daily, to be taken with 20mg capsules to equal 30mg daily, # 90 capsule, Refills 1, Tot. Refills 1, Maintenance, 04/03/23 11:25:00 EDT, Route to Pharmacy Electronically, [facility]/pharmacy #2024, Partial fill upon patient reques... Start Date: 04/03/23 Status: Ordered FLUoxetine 20 mg oral capsule 1, capsule, By Mouth, Daily, # 90 capsule, Refills 1, Tot. Refills 1, Maintenance, 04/03/23 11:23:00 EDT, Route to Pharmacy Electronically, [facility]/pharmacy #2024, 157, cm, 03/14/23 11:02:00 EDT, Height,145, kg, 08/29/22 20:13:00 EST, Dry Weight Start Date: 04/03/23 Status: Ordered gabapentin 300 mg oral capsule 600 mg, 2, capsule, By Mouth, 3 times a day, # 180 capsule, Refills 3, Tot. Refills 3, Maintenance,08/25/22 22:35:00 EST, Route to Pharmacy Electronically, [facility]/pharmacy #2024, Partial fill upon patient request [...] tablet, 2 Refills, Maintenance, 02/27/23 7:25:00 EDT, [facility] STORE 47634, 157, cm, 12/08/22 14:27:00 EDT, Height, 145, kg, 08/29/22 20:13:00 EST, Dry... Start Date: 02/27/23 Status: Ordered meclizine 25 mg oral tablet See Instructions, PRN Dizziness, 1 tablet By Mouth 3 times a day, # 30 tablet, 0 Refills, Maintenance, 02/27/23 10:43:00 EDT, [facility]/pharmacy #2024, Partial fill upon patient request if the prescriptionis for a schedule II opioid drug., 157, cm, ... Start Date: 02/27/23 Status: Ordered meloxicam 15 mg oral tablet See Instructions, TAKE 1 TABLET BY MOUTH DAILY WITH FOOD. LABS NEEDED FOR FURTHER REFILLS, # 30 tablet, 1 Refills, Maintenance, 03/05/23 9:28:00 EDT, [facility], 157, cm, 12/08/22 14:27:00 EDT, Height, 145, [...] tablet, 0 Refills, Maintenance, 02/20/23 17:17:00 EDT, [facility]/pharmacy #2025, 157, cm, 12/08/2313:27:00 EDT, Height, [...] Care Member Role: PCP Address: Address: [address] [place] [id number] Name: Hemalatha Lucas RN Position: [facility] Bonilla RN Position: [facility] Hospital Police [employer] Member Role: Primary Care Nurse Care Team Related Persons Name: DINESH SARGENT Address: [place] [address] Name: BON DE Address: home [address] [place] [address]
--- OUTSIDE RECORDS SUMMARY | 2024-06-24 14:22 | XMS_ITS | Continuity of Care Document ---
Author Organization [facility] Address [address] [place] [address]- Care Team Providers Care Wireless Technician Name Role Phone Florentino AHN, Elder Hannah Primary Care Physician Encounter [facility] Date(s): 05/07/20 - 06/06/20 [facility] [address] [place] [address]- Allergies, Adverse Reactions, Alerts Substance Reaction Severity [...] Given 1Result Comment: [facility]# [id number] 2Result Comment: [05/25/2018] [facility] lot number [id number] exp 01/26/2019 [facility] [id number] 3Result Comment: [08/20/2017] [facility] [id number] 4Admin Note: VIM dated 01/29/12 GIVEN TODAY 5Result Comment: [facility]#[id number] 6Admin Note: VIM dated 08/22/11 GIVEN TODAY [...] PUFFS EVERY 6 HOURS NEEDED FOR WHEEZE, [facility]/pharmacy #2024 Start Date: 05/27/19 Status: Ordered diclofenac 1% topical gel 1 applicator, Topically, 4 times a day, # 100 Gm, 0 Refills, Maintenance, 02/18/20 11:51:00 EDT, Gel, [facility]/pharmacy #2024, 161, cm, 01/08/20 13:51:00 EDT, Height Start Date: 02/18/20 Status: Ordered FLUoxetine 20 mg oral capsule 20 mg, 1, capsule, By Mouth, Daily, # 30 capsule, Refills 5, Tot. Refills 5, Maintenance, 05/13/20 9:34:00 EDT, Route to Pharmacy Electronically, [facility]/pharmacy #2024, replacing 10mg dose, 161, cm, 05/13/20 8:28:00 EDT, Height Start Date: 05/13/20 Status: Ordered levothyroxine 125 mcg (0.125 mg) oral tablet 1 tablet = 125 mcg, By Mouth, Daily, # 30 tablet, 5 Refills, Maintenance, 05/13/20 9:34:00 EDT, Tablet, [facility]/pharmacy #2024, 161, cm, 05/13/20 8:28:00 EDT, Height Start Date: 05/13/20 Status: Ordered meloxicam 15 mg oral tablet 1 tablet = 15 mg, By Mouth, Daily, Take w food., # 30 tablet, 1 Refills, Maintenance, 05/10/20 12:59:00 EDT, Tablet, [facility]/pharmacy #2024, Labs needed for further [...] 08/04/19 17:54:00 EST, Route to Pharmacy Electronically, [facility]/pharmacy #5, 161, cm, 08/04/19 14:44:00 [...] 09/10/20 9:34:00 EST, 05/13/20 9:34:00 EDT, Tablet, [facility]/pharmacy #5, 161, cm, 05/13/20 8:28:00 EDT, [...]
--- OUTSIDE RECORDS SUMMARY | 2024-06-24 14:22 | XMS_ITS | Continuity of Care Document ---
Author Organization [facility] Address [address] [place] [address] [address], [address] [place] [address]- Care Team Providers Care Glassware Maker Name Role Phone Celestina Trinidad MD Primary Care Physician [place] [facility] [place] 04/20/22 - 06/16/22 [facility] [address] [place] [address] Drive, [address] [place], [place] [address] Attending Physician: Shae Mosqueda DO Allergies, Adverse [...] 08/13/12 Given 1Result Comment: [facility]# [id number] 2Result Comment: [05/25/2018] [facility] lot number [id number] exp 01/26/2019 [facility] [id number] 3Result Comment: [08/20/2017] [facility] [id number] 4Admin Note: VIM dated 01/29/12 GIVEN TODAY 5Result Comment: [facility]#[id number] 6Admin Note: VIM dated 08/22/11 GIVEN TODAY [...] Stop, 04/10/2215:14:00 EDT, Route to Pharmacy Electronically, [id number], [facility]/pharmacy #2025, 158, cm, 04/10/22 14:56:00 EDT, Height, 143,... Start Date: 04/10/22 Status: Ordered Anoro Ellipta 62.5 mcg-25 mcg/inh inhalation powder 1 puffs, By Mouth, Daily, # 1 each, 6 Refills, Maintenance, 05/11/22 13:00:00 EDT, Powder, [facility], Partial fill upon patient request [...] Gm, 0 Refills, Maintenance, 02/28/21 16:31:00 EDT, [place], Partial fill upon patient request if the prescription is for... Start Date: 02/28/21 Status: Ordered FLUoxetine 20 mg oral capsule See Instructions, TAKE 1 CAPSULE BY MOUTH EVERY DAY, # 90 capsule, Refills 1, Maintenance, 06/13/2215:26:00 EST, Instructions Replace Required Details, Route to Pharmacy Electronically, [facility], 158, cm, 06/09/22 11:21:00 EST, Height, 143, kg... Start Date: 06/13/22 Status: Ordered levothyroxine 0.137 mg oral tablet See Instructions, TAKE 1 TABLET BY MOUTH ON DAYS 1-6, THEN TAKE 2 TABLETS BY MOUTH ON DAY 7, # 96 tablet, 1 Refills, [facility], 160.02, cm, 10/04/21 10:38:00 EST, Height, 143, [...] tablet, 3 Refills, Maintenance, 06/08/22 14:55:00 EST, [facility], 158, cm, 06/08/22 14:23:00 EST, Height, [...] tablet, 0 Refills, Maintenance, 06/14/22 15:39:00 EST, [facility]/pharmacy #2025, 158, cm, 06/09/22 11:21:00 EST, Height,143, kg, 01/04/21 10:42:00 EDT, Dry Weight Start Date: 06/14/22 Status: Ordered zolpidem 10 mg oral tablet 1 tablet = 10 mg, By Mouth, Daily at bedtime, PRN for sleep, for 30 days, masspat check may fill less, # 30 tablet, 2 Refills, Acute 07/19/22 9:22:00 EST, 04/20/22 9:22:00 EDT, Tablet, [facility], 158, cm, 04/10/22 14:56:00 EDT, Height, 143, kg... Start Date: 04/20/22 Stop Date: 07/19/22 Status: Ordered zolpidem 10 mg oral tablet 1 tablet = 10 mg, By Mouth, Daily at bedtime, PRN for sleep, for 30 days, masspat check may fill less, # 30 tablet, 3 Refills, Acute 07/19/22 13:40:00 EST, 03/21/22 13:40:00 EDT, Tablet, [facility]/pharmacy#2025, 158, cm, 03/02/22 11:38:00 EDT, Height, 143... [...] Trinidad MD Position: [facility] Primary Care Physician Member Role: PCP Address: Address: [address] [place] [address] Name: Lauren Mack RN Position: [facility] Nurse Member Role: Primary Care Nurse Name: Lora Santiago RN Position: [facility] RN Member Role: Primary Care Nurse [...] Care Nurse Name: Nessa Bonilla RN Position: [facility] Hospital Nurse Licensed Practical Member Role: Primary Care Nurse Care Team Related Persons Name: DINESH SARGENT Address: [place] [address] Name: BON DE Address: home [address] [address]
--- OUTSIDE RECORDS SUMMARY | 2024-06-24 14:22 | XMS_ITS | Continuity of Care Document ---
Author Organization [facility] Address Unknown Care Team Providers Care Firefighter Marine Name Role Phone Noe MARKETING OPERATIONS MANAGER, Mónica Graham Primary Care Physician Encounter [facility] Date(s): 05/04/21 - 06/03/21 [facility] Allergies, Adverse Reactions, Alerts Substance Reaction [...] Given 1Result Comment: [facility]# [id number] 2Result Comment: [05/25/2018] [facility] lot number [id number] exp 01/26/[address] [facility] [id number] 3Result Comment: [08/20/2017] [facility] [id number] 4Admin Note: VIM dated 01/29/12 GIVEN TODAY 5Result Comment: [facility]#[id number] 6Admin Note: VIM dated 08/22/11 GIVEN TODAY [...] 10/27/20 14:48:00 EDT, Route to Pharmacy Electronically, [id number], [facility]/pharmacy #2024, 160.02, cm, 10/19/20 11:04:00 EDT, Height, 156... Start Date: 10/27/20 Status: Ordered betamethasone-clotrimazole 0.05%-1% topical cream 1 application, Topically, 2 times a day, # 45 Gm, 0 Refills, Maintenance, 12/27/20 14:13:00 EDT, Cream, [facility]/pharmacy #2024, Partial fill upon patient request if the prescription is for a schedule II opioid drug., 1 application Topically 2 times a day,... Start Date: 12/27/20 Status: Ordered diclofenac 1% topical gel See Instructions, APPLY TOPICALLY 4 TIMES A DAY, # 100 Gm, 1 Refills, 10/27/20 12:37:00 EDT, [facility]/pharmacy #2024, 25, APPLY TOPICALLY 4 TIMES A DAY, 160.02, cm, 10/19/20 11:04:00 EDT, Height, 156.81, kg, 10/19/20 11:04:00 EDT, Dry Weight Start Date: 10/27/20 Status: Ordered Flonase 50 mcg/inh nasal spray See Instructions, 2 sprays Nares twice daily x 1 week, then once daily x 1-2 weeks until symptoms improve, # 16 Gm, 0 Refills, Maintenance, 02/28/21 16:31:00 EDT, [place], [facility]/pharmacy #202, Partial fill upon patient request if the prescription is for... Start Date: 02/28/21 Status: Ordered FLUoxetine 10 mg oral capsule 10 mg, 1, capsule, By Mouth, Daily, Take with 20mg capsule for total of 30mg daily, # 90 capsule, Refills 1, Tot. Refills 1, Maintenance, 05/04/21 16:44:00 EDT, [facility] fill upon patient request if... Start Date: 05/04/21 Status: Ordered FLUoxetine 20 mg oral capsule 20 mg, 1, capsule, By Mouth, Daily, Take with Fluoxetine 10mg for a total of 30mg, # 90 capsule, Refills 1, Tot. Refills 1, Maintenance, 05/04/21 16:44:00 EDT, [facility]ically[facility] replacing 10mg dose, 160.02, cm, 08/0... Start Date: 05/04/21 Status: Ordered levothyroxine 0.137 mg oral tablet See Instructions, Take 1 tablet by mouth on days 1-6, then take 2 tablets by mouth on day 7, # 121 tablet, 5 Refills, Maintenance, 12/07/20 9:46:00 EDT, [facility]/pharmacy #202, 160.02, cm, 10/19/20 11:04:00 EDT, Height, 156.81, kg, 10/19/20 11:04:00 EDT,... Start Date: 12/07/20 Status: Ordered meclizine 25 mg oral tablet See Instructions, PRN Dizziness, 1 tablet By Mouth 3 times a day, # 30 tablet, 0 Refills, Maintenance, 05/11/21 13:11:00 EDT, [facility]/pharmacy #202, Partial fill upon patient request if the prescriptionis for a schedule II opioid drug., 160.02, cm, 10/0... Start Date: 05/11/21 Status: Ordered meloxicam 15 mg oral tablet 1 tablet, By Mouth, Daily, WITH FOOD., # 30 tablet, 1 Refills, [facility] STORE 42442, 160.02, cm, 02/28/21 15:45:00 EDT, Height, 143, [...] 08/04/19 17:54:00 EST, Route to Pharmacy Electronically, [facility]/pharmacy #2025, 161, cm, 08/04/19 14:44:00 EST, Height Start Date: 08/04/19 Stop Date: 08/18/19 Status: Ordered traMADol 50 mg oral tablet 2 tablet = 100 mg, By Mouth, Every 12 hours, as needed for pain masspat checked, # 120 tablet, 2 Refills, Maintenance, 05/11/21 13:11:00 EDT, [facility]/pharmacy #2025, 160.02, cm, 05/06/21 10:09:00 EDT, [...]
--- OUTSIDE RECORDS SUMMARY | 2024-06-24 14:22 | XMS_ITS | Continuity of Care Document ---
Author Organization [facility] Address [address] [place] [address]- Care Team Providers Care Denture Model Maker Name Role Phone Florentino AHN, Elder Hannah Primary Care Physician [phone] [facility]counter [facility] Date[facility]11[facility]20 [facility] [address] [place] [address]- Allergies, Adverse Reactions, Alerts Substance Reaction Severity [...] 1Result Comment: [facility]# [id number] 2Result Comment: [05/25/2018] [employer] lot number [id number] 01/26/2019 [facility] [id number] 3Result Comment: [08/20/2017] [facility] [id number] 4Admin Note: VIM dated 01/29/12 GIVEN TODAY 5Result Comment: [facility]#[id number] 6Admin Note: VIM dated 08/22/11 GIVEN TODAY [...] 10/27/20 14:48:00 EDT, Route to Pharmacy Electronically, [id number], [facility]/pharmacy #2024, 160.02, cm, 10/19/20 11:04:00 EDT, Height, 156... Start Date: 10/27/20 Status: Ordered diclofenac 1% topical gel See Instructions, APPLY TOPICALLY 4 TIMES A DAY, # 100 Gm, 1 Refills, 10/27/20 12:37:00 EDT, [facility]/pharmacy #2024, 25, APPLY TOPICALLY 4 TIMES A DAY, 160.02, cm, 10/19/20 11:04:00 EDT, Height, 156.81, kg, 10/19/20 11:04:00 EDT, Dry Weight Start Date: 10/27/20 Status: Ordered FLUoxetine 20 mg oral capsule 20 mg, 1, capsule, By Mouth, Daily, # 30 capsule, Refills 5, Tot. Refills 5, Maintenance, 05/13/20 9:34:00 EDT, Route to Pharmacy Electronically, [facility]/pharmacy #2024, replacing 10mg dose, 161, cm, 05/13/20 8:28:00 EDT, Height Start Date: 05/13/20 Status: Ordered levothyroxine 0.137 mg oral tablet See Instructions, Take 1 tablet by mouth on days 1-6, then take 2 tablets by mouth on day 7, # 121 tablet, 5 Refills, Maintenance, 10/27/20 12:37:00 EDT, [facility]/pharmacy #2024, 160.02, cm, 10/19/20 11:04:00 EDT, Height, 156.81, kg, 10/19/20 11:04:00 EDT,... Start Date: 10/27/20 Status: Ordered meloxicam 15 mg oral tablet 1 tablet, By Mouth, Daily, WITH FOOD., # 30 tablet, 1 Refills, Maintenance, 10/24/20 10:06:00 EDT, [facility] STORE 28242, 160.02, cm, 10/19/20 11:04:00 EDT, Height, 156.81, [...] 08/04/19 17:54:00 EST, [facility] 161, cm, 08/04/19 14:44:00 EST, Height Start Date: 08/04/19 Stop Date: 08/18/19 Status: Ordered traMADol 50 mg oral tablet 2 tablet = 100 mg, By Mouth, Every 12 hours, for 30 days, as needed for pain masspat checked, # 120tablet, 2 Refills, Hard Stop 11/15/20 16:20:00 EDT, 08/17/20 16:20:00 EST, [facility]/pharmacy #5, 161,cm, 06/08/20 13:48:00 EST, Height Start Date: 08/17/20 Stop Date: 11/15/20 Status: Ordered traMADol 50 mg oral tablet 2 tablet = 100 mg, By Mouth, Every 12 hours, as needed for pain masspat checked, # 120 tablet, 2 Refills, Maintenance, 09/13/20 16:54:00 EST, [facility]/pharmacy #2025, 161, cm, 08/18/20 15:29:00 EST, [...]
--- OUTSIDE RECORDS SUMMARY | 2024-06-24 14:22 | XMS_ITS | Continuity of Care Document ---
Author Organization [facility] Address [address] [place] [address]- Care Team Providers Care Director Of Student Affairs Name Role Phone Vivi HENNING, Celestina Givens Primary Care Physician [facility]counter [facility] Date[facility]s): 02/03/23 - 03/05/23 [facility] [address] [place] [address]- Allergies, Adverse Reactions, Alerts No Known Allergies Immunizations Given and Recorded Vaccine Date Status Refusal Reason tetanus/diphtheria/pertussis, acel(Tdap) 1 08/21/22 Given tetanus/diphtheria/pertussis, acel(Tdap) 2 08/13/12 Given CIDE-XcX-7fGKM 12y+ bivalent booster vax 06/14/22 Recorded influenza [...] inactivated 6 07/31/12 Gi hali SARS-CoV-2 mRNA (bnrqvhf-saru-bkrdf) vax 02/14/22 Recorded SARS-CoV-2 (COVID-19) mRNA BNT-162b2 vac 05/06/21 Given SARS-CoV-2 (COVID-19) mRNA BNT-162b2 vac 11/04/20 Recorded SARS-CoV-2 (COVID-19) mRNA BNT-162b2 vac 10/14/20 Recorded pneumococcal 23-valent vaccine 7 04/07/19 Given 1Result Comment: [facility]# [id number] 2Admin Note: VIM dated 08/22/11 GIVEN TODAY 3Result Comment: [facility]# [id number] 4Result Comment: [05/25/2018] [employer] lot number [id number] exp 01/26/2019 [facility] [id number] 5Result Comment: [08/20/2017] [facility] [phone] 6Admin Note: VIM dated 01/29/12 GIVEN TODAY 7Result Comment: [facility]#[id number] Medications acetaminophen 500 mg oral capsule 2 [...] Stop, 04/10/2215:14:00 EDT, Route to Pharmacy Electronically, [id number], [facility]/pharmacy #2025, 158, cm, 04/10/22 14:56:00 EDT, Height, 143,... Start Date: 04/10/22 Status: Ordered amLODIPine 10 mg oral tablet 1 tablet, By Mouth, Daily, # 90 tablet, 0 Refills, Maintenance, 10/23/22 12:47:00 EDT, [facility] STORE 20012, 157, cm, 09/13/22 15:58:00 EST, Height, 145, kg, 08/29/22 20:13:00 EST, Dry Weight Start Date: 10/23/22 Status: Ordered budesonide-formoterol 80 mcg-4.5 mcg/inh inhalation aerosol with adapter 2, puffs, Inhalation, 2 times a day, PRN, use with spacer chamber, rinse mouth and throat after use, j44.9, # 1 each, Refills 6, Tot. Refills 6, Maintenance, 12/08/22 12:55:00 EDT, Aerosol, Route to Pharmacy Electronically, [id number]... Start Date: 12/08/22 Status: Ordered cilostazol 50 mg oral tablet 1 tablet, By Mouth, Daily, # 90 tablet, 1 Refills, Maintenance, 02/08/23 7:54:00 EDT, [facility], 157, cm, 12/08/22 14:27:00 EDT, Height, 145, [...] 1 Refills, Maintenance, 01/08/23 9:36:00EDT, [facility], 50, APPLY TOPICALLY 4 TIMES A DAY, 157, cm, 12/08/22 14:27:00 EDT, Height, 145, kg, 08/29/22 20:13:00 EST, Dry Weight Start Date: 01/08/23 Status: Ordered docusate sodium 100 mg oral capsule 100 mg, 1, capsule, By Mouth, 2 times a day, PRN, # 20 capsule, Refills 0, Tot. Refills 0, Maintenance, as needed for constipation, 08/31/22 13:30:00 EST, Route to Pharmacy Electronically, [facility]/pharmacy #2025, Partial fill upon patient request if the p... Start Date: 08/31/22 Status: Ordered Flonase 50 mcg/inh nasal spray See Instructions, 2 sprays Nares twice daily x 1 week, then once daily x 1-2 weeks until symptoms improve, # 16 Gm, 0 Refills, Maintenance, 02/28/21 16:31:00 EDT, [place], [facility]/pharmacy #2025, Partial fill upon patient request if the prescription is for... Start Date: 02/28/21 Status: Ordered FLUoxetine 10 mg oral capsule 10 mg, 1, capsule, By Mouth, Daily, to be taken with 20mg capsules to equal 30mg daily, # 90 capsule, Refills 0, Tot. Refills 0, Maintenance, 01/18/23 9:13:00 EDT, Route to Pharmacy Electronically, [facility]/pharmacy #8912, Partial fill upon patient request... Start Date: [...] 11/29/22 22:18:00 EDT, Route to Pharmacy Electronically, [facility] STORE 44743, 157, cm, 10/30/22 13:53:00 EDT, Height, 145, kg, 08/29/22 20:13:00 EST, Dry Weight Start Date: 11/29/22 Status: Ordered gabapentin 300 mg oral capsule 600 mg, 2, capsule, By Mouth, 3 times a day, # 180 capsule, Refills 3, Tot. Refills 3, Maintenance,08/25/22 22:35:00 EST, Route to Pharmacy Electronically, [facility]/pharmacy #2025, Partial fill upon [...] Refills, Maintenance, 02/27/23 7:25:00 EDT, [facility], 157, cm, 12/08/22 14:27:00 EDT, Height, 145, kg, 08/29/22 20:13:00 EST, Dry... Start Date: 02/27/23 Status: Ordered meclizine 25 mg oral tablet See Instructions, PRN Dizziness, 1 tablet By Mouth 3 times a day, # 30 tablet, 0 Refills, Maintenance, 02/27/23 10:43:00 EDT, [facility]/pharmacy #2025, Partial fill upon patient request if the prescriptionis for a schedule II opioid drug., 157, cm, ... Start Date: 02/27/23 Status: Ordered meloxicam 15 mg oral tablet See Instructions, TAKE 1 TABLET BY MOUTH DAILY WITH FOOD. LABS NEEDED FOR FURTHER REFILLS, # 30 tablet, 1 Refills, Maintenance, 03/05/23 9:28:00 EDT, [facility], 157, cm, 12/08/22 14:27:00 EDT, Height, 145, [...] 09/05/22 16:29:00 EST, Route to Pharmacy Electronically, [facility]/pharmacy #2025, Partialfill upon patient request if [...] Team Personnel Name: Celestina Trinidad MD Position: [facility] Physician - Primary Care Member Role: PCP Address: Address: [address] [place] [id number] Name: Hemalatha Lucas RN Position: [facility] RN Member Role: Primary Care Nurse Name: Lauren Mack RN Position: [facility] AMB Nurse Member Role: Primary Care Nurse Name: Madelaine Ruiz RN Position: [facility] RN Member Role: Primary Care Nurse Name: Lora Santiago RN Position: [facility] RN Member Role: Primary Care Nurse Name: Mayco Ro RN Position: [facility] RN Member Role: Primary Care Nurse Name: Heydi Potts RN Position: [facility] RN Member Role: Primary Care Nurse Name: Janice Romano LPN Position: [facility] RN Member Role: Primary Care Nurse Name: Nadya Low RN Position: [facility] RN Member Role: Primary Care Nurse Name: Mirna Greenfield RN Position: [facility] RN Member Role: Primary Care Nurse Name: Nessa Bonilla RN Position: [facility] Field Scout Member Role: Primary Care Nurse Care Team Related Persons Name: DINESH SARGENT Address: home [address] [place] [address] Name: BON DE Address: [address] [address]
--- OUTSIDE RECORDS SUMMARY | 2024-06-24 14:22 | XMS_ITS | Continuity of Care Document ---
Author Organization [facility] Address [address] [place] [address]- Care Team Providers Care Museum Host/Hostess Name Role Phone Vivi HENNING, Celestina Givens Primary Care Physician [place] [facility] Date[place]s): 02/05/24 - 03/06/24 [facility] [address] [place] [address]- Allergies, Adverse Reactions, Alerts No Known Allergies [...] 08/21/22 Given tetanus/diphtheria/pertussis, acel(Tdap) 7 08/13/12 Given NLPS-NuW-2sHTA 12y+ bivalent booster vax 06/14/22 Recorded SARS-CoV-2 mRNA (bulsjdy-yazd-curdz) vax 02/14/22 Recorded SARS-CoV-2 (COVID-19) mRNA BNT-162b2 vac 05/06/21 Given SARS-CoV-2 (COVID-19) mRNA BNT-162b2 vac 11/04/20 Recorded SARS-CoV-2 (COVID-19) mRNA BNT-162b2 vac 10/14/20 Recorded pneumococcal 23-valent vaccine 8 04/07/19 Given 1Result Comment: screening negative 2Result Comment: [facility]# [id number] 3Result Comment: [05/25/2018] [employer] lot number [id number] exp 01/26/2019 [facility] 59804-441-16 4Result Comment: [08/20/2017] [facility] [id number] 5Admin Note: VIM dated 01/29/12 GIVEN TODAY 6Result Comment: [facility]# [id number] 7Admin Note: VIM dated 08/22/11 GIVEN TODAY 8Result Comment: [facility]#[id number] Medications acetaminophen 500 mg oral capsule 2 [...] Stop, 12/06/23 17:28:00 EDT, [facility]/pharmacy #5, Partial fill upon patient request [...] 05/17/24 16:46:00 EDT, [facility] to Pharmacy Electronically, [facility] Gm, 1 Refills, Maintenance, 02/01/24 13:44:00 EDT, [facility] STORE 70235, 30, APPLY TO AFFECTED AREA 4 TIMES [...] Gm, 0 Refills, Maintenance, 02/28/21 16:31:00 EDT, [place], [facility]/pharmacy #2024, Partial fill upon patient request if the prescription is for... Start Date: 02/28/21 Status: Ordered FLUoxetine 10 mg oral capsule 1, capsule, By Mouth, Daily, INSTR:TO BE TAKEN WITH 20MG CAPSULES TO EQUAL 30MG DAILY, # 90 capsule, Refills 1, Maintenance, 01/25/24 9:11:00 EDT, Route to Pharmacy Electronically, [facility] STORE 32415, 157.5, cm, 01/22/24 10:31:00 EDT, Height, 145.9, [...] Refills, Maintenance, 12/28/23 16:17:00 EDT, [facility], 157.5, cm, 10/18/23 15:15:00 EDT, Height, 145.9, [...] Maintenance, 10/08/23 17:05:00 EDT, [facility]/pharmacy #2025, 157.5, cm, 07/13/23 9:57:00 EST, Height, 145.9, kg, :39:00 EDT, Dry Weight Start Date: 10/08/23 Status: Ordered metFORMIN 500 mg oral tablet, extended release 1 tablet = 500 mg, By Mouth, Daily, # 90 tablet, 1 Refills, Maintenance, 01/22/24 11:02:00 EDT, ER Tablet, [facility]/pharmacy #2025, Partial fill [...] Code MRI Safety Implantable Status Assigning Authority [id number] Unknown [id number] Unknown 08/26/24 Unknown Unknown Active GS1 Patient Care team information Care Team Personnel Name: Celestina Trinidad MD Position: [facility] Physician - Primary Care Member Role: PCP Address: Address: [address] [place] [address] Name: Hemalatha Lucas RN Position: [facility] RN Member Role: Primary Care Nurse Name: Lauren Mack RN Position: [facility] Nurse Member Role: Primary Care Nurse Name: Madelaine Ruiz RN Position: [facility] RN Member Role: Primary Care Nurse Name: Lora Santiago RN Position: [facility] RN Member [...] Bonilla RN Position: [facility] Medical Director Member Role: Primary Care Nurse Care Team Related Persons Name: DINESH SARGENT Address: home [address] [place] [address] Name: BON DE Address: [address] [address]
--- OUTSIDE RECORDS SUMMARY | 2024-06-24 14:22 | XMS_ITS | Continuity of Care Document ---
Author Organization [facility] Address [address] [place] [address]- Care Team Providers Care Manager Ecommerce Name Role Phone Vivi HENNING, Celestina Givens Primary Care Physician [place] [facility] [place]04[place] 03/05/24 [facility] [address] [place] [address]- Allergies, Adverse Reactions, Alerts No Known Allergies [...] 08/21/22 Given tetanus/diphtheria/pertussis, acel(Tdap) 7 08/13/12 Given GGGM-QpV-0fMFX 12y+ bivalent booster vax 06/14/22 Recorded SARS-CoV-2 mRNA (xinbtqc-wofk-hlxjl) vax 02/14/22 Recorded SARS-CoV-2 (COVID-19) mRNA BNT-162b2 vac 05/06/21 Given SARS-CoV-2 (COVID-19) mRNA BNT-162b2 vac 11/04/20 Recorded SARS-CoV-2 (COVID-19) mRNA BNT-162b2 vac 10/14/20 Recorded pneumococcal 23-valent vaccine 8 04/07/19 Given 1Result Comment: screening negative 2Result Comment: [facility]# [id number] 3Result Comment: [05/25/2018] [facility] lot number [id number] exp 01/26/2019 [facility] [id number] 4Result Comment: [08/20/2017] [facility] [id number] 5Admin Note: VIM dated 01/29/12 GIVEN TODAY 6Result Comment: [facility]# [id number] 7Admin Note: VIM dated 08/22/11 GIVEN TODAY 8Result Comment: [facility]#[id number] Medications acetaminophen 500 mg oral capsule 2 [...] EDT, [facility]/pharmacy #5, Partial fill upon patient request [...] [facility]/pharmacy #2024, 25, APPLY TO AFFECTED AREA 4 TIMES A DAY, 157.5, cm, 10/18/23 15:15:00 EDT, Height, 145.9, kg, 05/22/23 7:39:00 EDT, Start Date: 11/07/23 Status: Ordered diclofenac 1% topical gel See Instructions, APPLY TO AFFECTED AREA 4 TIMES A DAY. NOT COVERED, # 100 Gm, 1 Refills, Maintenance, 02/01/24 13:44:00 EDT, [facility] STORE 43505, 30, APPLY TO AFFECTED AREA 4 TIMES [...] Gm, 0 Refills, Maintenance, 02/28/21 16:31:00 EDT, [place], [facility]/pharmacy #2024, Partial fill upon patient request if the prescription is for... Start Date: 02/28/21 Status: Ordered FLUoxetine 10 mg oral capsule 1, capsule, By Mouth, Daily, INSTR:TO BE TAKEN WITH 20MG CAPSULES TO EQUAL 30MG DAILY, # 90 capsule, Refills 1, Maintenance, 01/25/24 9:11:00 EDT, Route to Pharmacy Electronically, [facility] STORE 72999, 157.5, cm, 01/22/24 10:31:00 EDT, Height, 145.9, [...] Refills, Maintenance, 12/28/23 16:17:00 EDT, [facility], 157.5, cm, 10/18/23 15:15:00 EDT, Height, 145.9, [...] [facility]/pharmacy #2025, 157.5, cm, 07/13/23 9:57:00 EST, Height, 145.9, kg, :39:00 EDT, Dry Weight Start Date: 10/08/23 Status: Ordered metFORMIN 500 mg oral tablet, extended release 1 tablet = 500 mg, By Mouth, Daily, # 90 tablet, 1 Refills, Maintenance, 01/22/24 11:02:00 EDT, ER Tablet, [facility]/pharmacy #2025, [...] Code MRI Safety Implantable Status Assigning Authority [id number] Unknown [id number] Unknown 08/26/24 Unknown Unknown Active GS1 Patient Care team information Care Team Personnel Name: Celestina Trinidad MD Position: [facility] Physician - Primary Care Member Role: PCP Address: Address: [address] [place] [address] Name: Hemalatha Lucas RN Position: [facility] RN Member Role: Primary Care Nurse Name: Lauren Mack RN Position: [facility] Nurse Member Role: Primary Care Nurse Name: Madelaine Ruiz RN Position: [facility] RN Member Role: Primary Care Nurse Name: Lora Santiago RN Position: [facility] RN Member Role: [...] Name: Nessa Bonilla RN Position: [facility] Director Member Role: Primary Care Nurse Care Team Related Persons Name: DINESH SARGENT Address: home [address] [place] [address] Name: BON DE Address: [address] [address]
--- OUTSIDE RECORDS SUMMARY | 2024-06-24 14:22 | XMS_ITS | Continuity of Care Document ---
Author Organization [facility] Address [address] [place] [address]- Care Team Providers Care Animal Assisted Therapist Name Role Phone Vivi HENNING, Celestina Givens Primary Care Physician [facility] Date(s): 10/23/22 - 11/22/22 [facility] [address] [place] [address]- Allergies, Adverse Reactions, Alerts No Known Allergies Immunizations Given and Recorded Vaccine Date Status Refusal Reason tetanus/diphtheria/pertussis, acel(Tdap) 1 08/21/22 Given tetanus/diphtheria/pertussis, acel(Tdap) 2 08/13/12 Given HVSU-WfH-5zOSY 12y+ bivalent booster vax 06/14/22 Recorded influenza [...] inactivated 6 07/31/12 Gi hali SARS-CoV-2 mRNA (yzbfrtg-hbtu-oaonf) vax 02/14/22 Recorded SARS-CoV-2 (COVID-19) mRNA BNT-162b2 vac 05/06/21 Given SARS-CoV-2 (COVID-19) mRNA BNT-162b2 vac 11/04/20 Recorded SARS-CoV-2 (COVID-19) mRNA BNT-162b2 vac 10/14/20 Recorded pneumococcal 23-valent vaccine 7 04/07/19 Given 1Result Comment: [facility]# [id number] 2Admin Note: VIM dated 08/22/11 GIVEN TODAY 3Result Comment: [facility]# [id number] 4Result Comment: [05/25/2018] [facility] lot number [id number] exp 01/26/2019 [facility] [id number] 5Result Comment: [08/20/2017] [facility] [id number] 6Admin Note: VIM dated 01/29/12 GIVEN TODAY 7Result Comment: [facility]#[id number] Medications acetaminophen 500 mg oral capsule 2 [...] Stop, 04/10/2215:14:00 EDT, Route to Pharmacy Electronically, [id number], [facility]/pharmacy #2025, 158, cm, 04/10/22 14:56:00 EDT, Height, 143,... Start Date: 04/10/22 Status: Ordered amLODIPine 10 mg oral tablet 1 tablet, By Mouth, Daily, # 90 tablet, 0 Refills, Maintenance, 10/23/22 12:47:00 EDT, [facility] STORE 19752, 157, cm, 09/13/22 15:58:00 EST, Height, 145, kg, 08/29/22 20:13:00 EST, Dry Weight Start Date: 10/23/22 Status: Ordered budesonide-formoterol 80 mcg-4.5 mcg/inh inhalation aerosol with adapter 2, puffs, Inhalation, 2 times a day, PRN, use with spacer chamber, rinse mouth and throat after use, # 10.2 Gm, Refills 5, Tot. Refills 5, Maintenance, 09/12/22 11:06:00 EST, Aerosol, Route to Pharmacy Electronically, [id number]... Start Date: 09/12/22 Status: Ordered Compression Stockings [...] 100 Gm, 1 Refills, 09/22/22 7:28:00 EST, [facility]/pharmacy #2024, 25, APPLY TOPICALLY 4 TIMES [...] 08/31/22 13:30:00 EST, Route to Pharmacy Electronically, [facility]/pharmacy #2024, Partial fill upon patient request if the p... Start Date: 08/31/22 Status: Ordered Flonase 50 mcg/inh nasal spray See Instructions, 2 sprays Nares twice daily x 1 week, then once daily x 1-2 weeks until symptoms improve, # 16 Gm, 0 Refills, Maintenance, 02/28/21 16:31:00 EDT, [place], Partial fill upon patient request if the prescription is for... Start Date: 02/28/21 Status: Ordered FLUoxetine 20 mg oral capsule 1, capsule, By Mouth, Daily, # 90 capsule, Refills 1, Maintenance, 10/23/22 12:47:00 EDT, Route to Pharmacy Electronically, [facility], 157, cm, 09/13/22 15:58:00 EST, Height, 145, kg, 08/29/22 20:13:00 EST, Dry Weight Start Date: 10/23/22 Status: Ordered furosemide 20 mg oral tablet 1, tablet, By Mouth, Daily, MAY REPEAT IF NEEDED IN 2 HOURS, # 30 tablet, Refills 0, Maintenance, 11/21/22 14:18:00 EDT, Route to Pharmacy Electronically, [facility], 157, cm, 10/30/22 13:53:00 EDT, Height, 145, kg, 08/29/22 20:13:00 EST, Dry Weight Start Date: 11/21/22 Status: Ordered gabapentin 300 mg oral capsule 600 mg, 2, capsule, By Mouth, 3 times a day, # 180 capsule, Refills 3, Tot. Refills 3, Maintenance,08/25/22 22:35:00 EST, Route to Pharmacy Electronically, [facility]/pharmacy #2024, Partial fill upon patient [...] tablet, 0 Refills, Maintenance, 05/11/21 13:11:00 EDT, [facility]/pharmacy #2024, Partial fill upon patient request if the prescriptionis for a schedule II opioid drug., 160.02, cm, 10/0... Start Date: 05/11/21 Status: Ordered meloxicam 15 mg oral tablet See Instructions, TAKE 1 TABLET BY MOUTH DAILY WITH FOOD. LABS NEEDED FOR FURTHER REFILLS, # 30 tablet, 3 Refills, Maintenance, 10/18/22 21:31:00 EDT, [facility], 157, cm, 09/13/22 15:58:00 EST,Height, 145, kg, [...] 09/05/22 16:29:00 EST, Route to Pharmacy Electronically, [facility]/pharmacy #2024, Partialfill upon patient request if [...] Celestina Trinidad MD Position: [facility] Primary Care Physician Member Role: PCP Address: Address: [address] [place] [id number] Name: Hemalatha Lucas RN Position: [facility] [...] Name: Nessa Bonilla RN Position: [facility] Hospital Administrative Program Specialist Member Role: Primary Care Nurse Care Team Related Persons Name: DINESH SARGENT Address: home [address] [place] [address] Name: BON DE Address: home [address] [address]
--- OUTSIDE RECORDS SUMMARY | 2024-06-24 14:22 | XMS_ITS | Continuity of Care Document ---
Author Organization [facility] Address [address] [place] [address]- Care Team Providers Care Vocational Auto Body Instructor Name Role Phone Vivi HENNING, Celestina Givens Primary Care Physician [facility] - 03/[facility]/24 [facility] [address] [place] [address]- Allergies, Adverse Reactions, Alerts No Known Allergies [...] 08/21/22 Given tetanus/diphtheria/pertussis, acel(Tdap) 7 08/13/12 Given WAVU-CoL-4iRRY 12y+ bivalent booster vax 06/14/22 Recorded SARS-CoV-2 mRNA (hbwjrwc-bhkf-hjjlc) vax 02/14/22 Recorded SARS-CoV-2 (COVID-19) mRNA BNT-162b2 vac 05/06/21 Given SARS-CoV-2 (COVID-19) mRNA BNT-162b2 vac 11/04/20 Recorded SARS-CoV-2 (COVID-19) mRNA BNT-162b2 vac 10/14/20 Recorded pneumococcal 23-valent vaccine 8 04/07/19 Given 1Result Comment: screening negative 2Result Comment: [facility]# [id number] 3Result Comment: [05/25/2018] [facility] lot number [id number] exp 01/26/2019 [facility] [id number] 4Result Comment: [08/20/2017] [facility] [id number] 5Admin Note: VIM dated 01/29/12 GIVEN TODAY 6Result Comment: [facility]# [id number] 7Admin Note: VIM dated 08/22/11 GIVEN TODAY 8Result Comment: [facility]#[id number] Medications acetaminophen 500 mg oral capsule 2 [...] 05/17/24 16:46:00 EDT, Route to Pharmacy Electronically, [facility]/pharmacy #2024, Partial fill upon patient request if the prescription is for a... Start Date: 05/17/24 Status: Ordered cyclobenzaprine 10 mg oral tablet 10 mg, 1, tablet, By Mouth, 3 times a day, PRN, # 30 tablet, Refills 0, Tot. Refills 0, Acute 05/17/24 16:46:00 EDT, for spasm, 05/17/23 16:45:00 EDT, [facility], [facility] [...] Refills, Maintenance, 02/01/24 13:44:00 EDT, [facility], 30, APPLY TO AFFECTED AREA 4 TIMES [...] 0 Refills, Maintenance, 02/28/21 16:31:00 EDT, [place], [facility]/pharmacy #5, Partial fill upon patient request if the prescription is for... Start Date: 02/28/21 Status: Ordered FLUoxetine 10 mg oral capsule 1, capsule, By Mouth, Daily, INSTR:TO BE TAKEN WITH 20MG CAPSULES TO EQUAL 30MG DAILY, # 90 capsule, Refills 1, Maintenance, 01/25/24 9:11:00 EDT, Route to Pharmacy Electronically, [facility], 157.5, cm, 01/22/24 10:31:00 EDT, Height, 145.9, [...] Refills, Maintenance, 12/28/23 16:17:00 EDT, [facility], 157.5, cm, 10/18/23 15:15:00 EDT, Height, 145.9, [...] tablet, 5 Refills, Maintenance, 10/08/23 17:05:00 EDT, [facility]/pharmacy #2025, 157.5, cm, 07/13/23 9:57:00 EST, [...] Code MRI Safety Implantable Status Assigning Authority [id number] Unknown [id number] Unknown 08/26/24 Unknown Unknown Active GS1 Patient Care team information Care Team Personnel Name: Celestina Trinidad MD Position: [facility] Physician - Primary Care Member Role: PCP Address: Address: [address] [place] [address] Name: Hemalatha Lucas RN [facility] Bonilla RN Position: [facility] Multimedia Instructional Designer Member Role: Primary Care Nurse Care Team Related Persons Name: ROSETTA DINESH Address: home [address] [place] [address] Name: BON DE Address: [address] [address]
--- OUTSIDE RECORDS SUMMARY | 2024-06-24 14:22 | XMS_ITS | Continuity of Care Document ---
Author Organization [facility] Address [address] [place] [address]- Care Team Providers Care Strapping Machine Tender Name Role Phone Florentino AHN, Elder Hannah Primary Care Physician [phone] [facility]20 [facility] [address] [place], [place] [address] Allergies, Adverse Reactions, Alerts Substance Reaction [...] system [facility]# 38716-782-13 2Result Comment: [05/25/2018] [facility] lot number [id number] exp 01/26/[facility] [id number] 3Result Comment: [08/20/2017] [facility] 64793-588-87 4Admin Note: VIM dated 01/29/12 GIVEN TODAY 5Result Comment: [facility]#[id number] 6Admin Note: VIM dated 08/22/11 GIVEN TODAY [...] 10/27/20 14:48:00 EDT, Route to Pharmacy Electronically, [id number], [facility]/pharmacy #2024, 160.02, cm, 10/19/20 11:04:00 EDT, Height, 156... Start Date: 10/27/20 Status: Ordered diclofenac 1% topical gel See Instructions, APPLY TOPICALLY 4 TIMES A DAY, # 100 Gm, 1 Refills, 10/27/20 12:37:00 EDT, [facility]/pharmacy #2024, 25, APPLY TOPICALLY 4 TIMES A DAY, 160.02, cm, 10/19/20 11:04:00 EDT, Height, 156.81, kg, 10/19/20 11:04:00 EDT, Dry Weight Start Date: 10/27/20 Status: Ordered FLUoxetine 20 mg oral capsule 20 mg, 1, capsule, By Mouth, Daily, # 30 capsule, Refills 5, Tot. Refills 5, Maintenance, 05/13/20 9:34:00 EDT, Route to Pharmacy Electronically, [facility]/pharmacy #2024, replacing 10mg dose, 161, cm, 05/13/20 8:28:00 EDT, Height Start Date: 05/13/20 Status: Ordered levothyroxine 0.137 mg oral tablet See Instructions, Take 1 tablet by mouth on days 1-6, then take 2 tablets by mouth on day 7, # 121 tablet, 5 Refills, Maintenance, 10/27/20 12:37:00 EDT, [facility]/pharmacy #2024, 160.02, cm, 10/19/20 11:04:00 EDT, Height, 156.81, kg, 10/19/20 11:04:00 EDT,... Start Date: 10/27/20 Status: Ordered meloxicam 15 mg oral tablet 1 tablet, By Mouth, Daily, WITH FOOD., # 30 tablet, 1 Refills, Maintenance, 10/24/20 10:06:00 EDT, [facility] STORE 315[facility], 160.02, cm, 10/19/20 11:04:00 EDT, Height, 156.81, [...] 08/04/19 17:54:00 EST, [facility] 161, cm, 08/04/19 14:44:00 EST, Height Start Date: 08/04/19 Stop Date: 08/18/19 Status: Ordered traMADol 50 mg oral tablet 2 tablet = 100 mg, By Mouth, Every 12 hours, as needed for pain masspat checked, # 120 tablet, 2 Refills, Maintenance, 09/13/20 16:54:00 EST, [facility]/pharmacy #5, 161, cm, 08/18/20 15:29:00 EST, Height Start Date: 09/13/20 Stop Date: 12/12/20 Status: Ordered zolpidem 10 mg oral tablet 1 tablet = 10 mg, By Mouth, Daily at bedtime, PRN for sleep, for 30 days, masspat check may fill less, # 30 tablet, 3 Refills, Acute 01/08/21 9:34:00 EDT, 09/10/20 9:34:00 EST, Tablet, [facility]/pharmacy #2024, 161, cm, 08/18/20 15:29:00 EST, [...]
--- OUTSIDE RECORDS SUMMARY | 2024-06-24 14:22 | XMS_ITS | Continuity of Care Document ---
Author Organization [facility] Address [address] [place] [address]- Care Team Providers Care Computer Peripheral Equipment Operator Name Role Phone Vivi HENNING, Celestina Givens Primary Care Physician [facility] 10[facility]22 - 10/31/22 [facility] [address] [place] [address]- Allergies, Adverse Reactions, Alerts No Known Allergies Immunizations Given and Recorded Vaccine Date Status Refusal Reason tetanus/diphtheria/pertussis, acel(Tdap) 1 08/21/22 Given tetanus/diphtheria/pertussis, acel(Tdap) 2 08/13/12 Given FQII-ElZ-7uCDJ 12y+ bivalent booster vax 06/14/22 Recorded influenza [...] inactivated 6 07/31/12 Gi hali SARS-CoV-2 mRNA (ixgoitb-mwqf-ocvou) vax 02/14/22 Recorded SARS-CoV-2 (COVID-19) mRNA BNT-162b2 vac 05/06/21 Given SARS-CoV-2 (COVID-19) mRNA BNT-162b2 vac 11/04/20 Recorded SARS-CoV-2 (COVID-19) mRNA BNT-162b2 vac 10/14/20 Recorded pneumococcal 23-valent vaccine 7 04/07/19 Given 1Result Comment: [facility]# [id number] 2Admin Note: VIM dated 08/22/11 GIVEN TODAY 3Result Comment: [facility]# [id number] 4Result Comment: [05/25/2018] [facility] lot number [id number] exp 01/26/2019 [facility] [id number] 5Result Comment: [08/20/2017] [facility] [id number] 6Admin Note: VIM dated 01/29/12 GIVEN TODAY 7Result Comment: [facility]#[id number] Medications acetaminophen 500 mg oral capsule 2 [...] Stop, 04/10/2215:14:00 EDT, Route to Pharmacy Electronically, [id number], [facility]/pharmacy #2025, 158, cm, 04/10/22 14:56:00 EDT, Height, 143,... Start Date: 04/10/22 Status: Ordered amLODIPine 10 mg oral tablet 1 tablet, By Mouth, Daily, # 90 tablet, 0 Refills, Maintenance, 10/23/22 12:47:00 EDT, [facility] STORE 43168, 157, cm, 09/13/22 15:58:00 EST, Height, 145, kg, 08/29/22 20:13:00 EST, Dry Weight Start Date: 10/23/22 Status: Ordered budesonide-formoterol 80 mcg-4.5 mcg/inh inhalation aerosol with adapter 2, puffs, Inhalation, 2 times a day, PRN, use with spacer chamber, rinse mouth and throat after use, # 10.2 Gm, Refills 5, Tot. Refills 5, Maintenance, 09/12/22 11:06:00 EST, Aerosol, Route to Pharmacy Electronically, [id number]... Start Date: 09/12/22 Status: Ordered cilostazol 100 mg oral tablet 1 tablet, By Mouth, 2 times a day, # 60 tablet, 0 Refills, Maintenance, 10/23/22 12:47:00 EDT, [facility], 157, cm, 09/13/22 15:58:00 EST, Height, 145, [...] 08/31/22 13:30:00 EST, Route to Pharmacy Electronically, [facility]/pharmacy #2025, Partial fill upon patient request if the p... Start Date: 08/31/22 Status: Ordered Flonase 50 mcg/inh nasal spray See Instructions, 2 sprays Nares twice daily x 1 week, then once daily x 1-2 weeks until symptoms improve, # 16 Gm, 0 Refills, Maintenance, 02/28/21 16:31:00 EDT, [place], [facility]/pharmacy #2025, Partial fill upon patient request if the prescription is for... Start Date: 02/28/21 Status: Ordered FLUoxetine 20 mg oral capsule 1, capsule, By Mouth, Daily, # 90 capsule, Refills 1, Maintenance, 10/23/22 12:47:00 EDT, Route to Pharmacy Electronically, [facility], 157, cm, 09/13/22 15:58:00 EST, Height, 145, kg, 08/29/22 20:13:00 EST, Dry Weight Start Date: 10/23/22 Status: Ordered furosemide 20 mg oral tablet 1, tablet, By Mouth, Daily, MAY REPEAT IF NEEDED IN 2 HOURS, # 30 tablet, Refills 0, Maintenance, 10/29/22 21:42:00 EDT, Route to Pharmacy Electronically, [facility], 157, cm, 09/13/22 15:58:00 EST, Height, 145, [...] 1 Refills, Maintenance, 07/03/22 14:41:00 EST, Tablet, [facility]/pharmacy #202, Partial fill upon patient request if the prescription is for a schedule II opioid dr... Start Date: 07/03/22 Status: Ordered meclizine 25 mg oral tablet See Instructions, PRN Dizziness, 1 tablet By Mouth 3 times a day, # 30 tablet, 0 Refills, Maintenance, 05/11/21 13:11:00 EDT, [facility]/pharmacy #202, Partial fill upon patient request if the prescriptionis for a schedule II opioid drug., 160.02, cm, 100... Start Date: 05/11/21 Status: Ordered meloxicam 15 mg oral tablet See Instructions, TAKE 1 TABLET BY MOUTH DAILY WITH FOOD. LABS NEEDED FOR FURTHER REFILLS, # 30 tablet, 3 Refills, Maintenance, 10/18/22 21:31:00 EDT, [facility], 157, cm, 09/13/22 15:58:00 EST,Height, 145, kg, [...] 09/05/22 16:29:00 EST, Route to Pharmacy Electronically, [facility]/pharmacy #2025, Partialfill upon patient request [...] Care Physician Member Role: PCP Address: Address: [address] [place] [address] Name: Hemalatha Lucas RN Position: [facility] RN Member Role: Primary Care Nurse Name: Lauren Mack RN Position: [facility] AMB Nurse Member Role: Primary Care Nurse Name: Madelaine Ruiz RN Position: [facility] RN Member Role: Primary Care Nurse Name: Lora Santiago RN Position: [facility] SN RN Member Role: Primary Care Nurse Name: Mayco Ro RN Position: [facility] RN Member Role: Primary Care Nurse Name: Heydi Potts RN Position: [facility] RN Member Role: Primary Care Nurse Name: Janice Romano LPN Position: [facility] RN Member Role: Primary Care Nurse Name: Nadya Low RN Position: [facility] RN Member Role: Primary Care Nurse Name: Mirna Greenfield RN Position: [facility] RN Member Role: Primary Care Nurse Name: Nessa Bonilla RN Position: [facility] Dry Color Mixer Member Role: Primary Care Nurse Care Team Related Persons Name: DINESH SARGENT Address: home [address] [place] [address] Name: BON DE Address: home [address] [place] [id number]
--- OUTSIDE RECORDS SUMMARY | 2024-06-24 14:22 | XMS_ITS | Continuity of Care Document ---
Author Organization [facility] Address [address] [place] [address] ve [address] [place] [address]- Care Team Providers Care Grocery Associate Name Role Phone Vivi HENNING, Celestina Givens Primary Care Physician [facility] Date[facility]s): 10/17/22 - 11/16/[address] [place] [address]- Allergies, Adverse Reactions, Alerts No Known Allergies Immunizations Given and Recorded Vaccine Date Status Refusal Reason tetanus/diphtheria/pertussis, acel(Tdap) 1 08/21/22 Given tetanus/diphtheria/pertussis, acel(Tdap) 2 08/13/12 Given KWJW-KrC-3oQGM 12y+ bivalent booster vax 06/14/22 Recorded influenza [...] inactivated 6 07/31/12 Gi hali SARS-CoV-2 mRNA (oihyfxf-fmmo-nuvbi) vax 02/14/22 Recorded SARS-CoV-2 (COVID-19) mRNA BNT-162b2 vac 05/06/21 Given SARS-CoV-2 (COVID-19) mRNA BNT-162b2 vac 11/04/20 Recorded SARS-CoV-2 (COVID-19) mRNA BNT-162b2 vac 10/14/20 Recorded pneumococcal 23-valent vaccine 7 04/07/19 Given 1Result Comment: [facility]# [id number] 2Admin Note: VIM dated 08/22/11 GIVEN TODAY 3Result Comment: [facility]# [id number] 4Result Comment: [05/25/2018] [facility] lot number [id number] exp 01/26/2019 [facility] [id number] 5Result Comment: [08/20/2017] [facility] [id number] 6Admin Note: VIM dated 01/29/12 GIVEN TODAY 7Result Comment: [facility]#[id number] Medications acetaminophen 500 mg oral capsule 2 [...] Stop, 04/10/2215:14:00 EDT, Route to Pharmacy Electronically, [id number], [facility]/pharmacy #2025, 158, cm, 04/10/22 14:56:00 EDT, Height, 143,... Start Date: 04/10/22 Status: Ordered amLODIPine 10 mg oral tablet 1 tablet, By Mouth, Daily, # 90 tablet, 0 Refills, Maintenance, 10/23/22 12:47:00 EDT, [facility] STORE 61515, 157, cm, 09/13/22 15:58:00 EST, Height, 145, kg, 08/29/22 20:13:00 EST, Dry Weight Start Date: 10/23/22 Status: Ordered budesonide-formoterol 80 mcg-4.5 mcg/inh inhalation aerosol with adapter 2, puffs, Inhalation, 2 times a day, PRN, use with spacer chamber, rinse mouth and throat after use, # 10.2 Gm, Refills 5, Tot. Refills 5, Maintenance, 09/12/22 11:06:00 EST, Aerosol, Route to Pharmacy Electronically, [id number]... Start Date: 09/12/22 Status: Ordered cilostazol 100 mg oral tablet 1 tablet, By Mouth, 2 times a day, # 60 tablet, 0 Refills, Maintenance, 11/15/22 22:18:00 EDT, [facility], 157, cm, 10/30/22 13:53:00 EDT, Height, 145, [...] 08/31/22 13:30:00 EST, Route to Pharmacy Electronically, [facility]/pharmacy #2025, Partial fill upon patient request if the p... Start Date: 08/31/22 Status: Ordered Flonase 50 mcg/inh nasal spray See Instructions, 2 sprays Nares twice daily x 1 week, then once daily x 1-2 weeks until symptoms improve, # 16 Gm, 0 Refills, Maintenance, 02/28/21 16:31:00 EDT, [place], [facility]/pharmacy #2025, Partial fill upon patient request if the prescription is for... Start Date: 02/28/21 Status: Ordered FLUoxetine 20 mg oral capsule 1, capsule, By Mouth, Daily, # 90 capsule, Refills 1, Maintenance, 10/23/22 12:47:00 EDT, Route to Pharmacy Electronically, [facility], 157, cm, 09/13/22 15:58:00 EST, Height, 145, kg, 08/29/22 20:13:00 EST, Dry Weight Start Date: 10/23/22 Status: Ordered furosemide 20 mg oral tablet 1, tablet, By Mouth, Daily, MAY REPEAT IF NEEDED IN 2 HOURS, # 30 tablet, Refills 0, Maintenance, 11/08/22 16:39:00 EDT, Route to Pharmacy Electronically, [facility], 157, cm, 10/30/22 13:53:00 EDT, Height, 145, kg, 08/29/22 20:13:00 EST, Dry Weight Start Date: 11/08/22 Status: Ordered gabapentin 300 mg oral capsule 600 mg, 2, capsule, By Mouth, 3 times a day, # 180 capsule, Refills 3, Tot. Refills 3, Maintenance,08/25/22 22:35:00 EST, [facility]acy Electronically, [facility] [...] 1 Refills, Maintenance, 07/03/22 14:41:00 EST, Tablet, [facility]/pharmacy #2024, Partial fill upon patient request if the prescription is for a schedule II opioid dr... Start Date: 07/03/22 Status: Ordered meclizine 25 mg oral tablet See Instructions, PRN Dizziness, 1 tablet By Mouth 3 times a day, # 30 tablet, 0 Refills, Maintenance, 05/11/21 13:11:00 EDT, [facility]/pharmacy #2024, Partial fill upon patient request if the prescriptionis for a schedule II opioid drug., 160.02, cm, 10/0... Start Date: 05/11/21 Status: Ordered meloxicam 15 mg oral tablet See Instructions, TAKE 1 TABLET BY MOUTH DAILY WITH FOOD. LABS NEEDED FOR FURTHER REFILLS, # 30 tablet, 3 Refills, Maintenance, 10/18/22 21:31:00 EDT, [facility] STORE 47611, 157, cm, 09/13/22 15:58:00 EST,Height, 145, kg, [...] 09/05/22 16:29:00 EST, Route to Pharmacy Electronically, [facility]/pharmacy #202, Partialfill upon patient request if [...] Team Personnel Name: Celestina Trinidad MD Position: [facility] Primary Care Physician Member Role: PCP Address: Address: [address] [place] [address] Name: Hemalatha Lucas RN Position: [facility] RN Member Role: Primary Care Nurse Name: Lauren Mack RN Position: [facility] AMB Nurse Member Role: Primary Care Nurse Name: Madelaine Ruiz RN Position: [facility] RN Member Role: Primary Care Nurse Name: Lora Santiago RN Position: [facility] RN Member Role: Primary Care Nurse Name: Mayco Ro RN Position: [facility] RN Member Role: Primary Care Nurse Name: Heydi Potts RN Position: [facility] RN Member Role: Primary Care Nurse Name: Janice Romano LPN Position: [facility] RN Member Role: Primary Care Nurse Name: Nadya Low RN Position: [facility] RN Member Role: Primary Care Nurse Name: Mirna Greenfield RN Position: [facility] RN Member Role: Primary Care Nurse Name: Nessa Bonilla RN Position: [facility] Consultant Intern Member Role: Primary Care Nurse Care Team Related Persons Name: DINESH SARGENT Address: home [address] [place] [address] Name: BON DE Address: home [address] [place] [id number]
--- OUTSIDE RECORDS SUMMARY | 2024-06-24 14:23 | XMS_ITS | Continuity of Care Document ---
Author Organization [facility] Address [address] [place] [address]- Care Team Providers Care Claims Vice President Name Role Phone Vivi HENNING, Celestina Givens Primary Care Physician Encounter [facility] Date(s): 02/21/24 - 03/22/24 [facility] [address] [place] [address]- Allergies, Adverse Reactions, Alerts No Known Allergies [...] 08/21/22 Given tetanus/diphtheria/pertussis, acel(Tdap) 7 08/13/12 Given KJFA-VyB-3cPAF 12y+ bivalent booster vax 06/14/22 Recorded SARS-CoV-2 mRNA (zodzvde-pwlp-bsqwq) vax 02/14/22 Recorded SARS-CoV-2 (COVID-19) mRNA BNT-162b2 vac 05/06/21 Given SARS-CoV-2 (COVID-19) mRNA BNT-162b2 vac 11/04/20 Recorded SARS-CoV-2 (COVID-19) mRNA BNT-162b2 vac 10/14/20 Recorded pneumococcal 23-valent vaccine 8 04/07/19 Given 1Result Comment: screening negative 2Result Comment: [facility]# [id number] 3Result Comment: [05/25/2018] [facility] lot number [id number] exp 01/26/2019 [facility] 11063-561-26 4Result Comment: [08/20/2017] [facility] [id number] 5Admin Note: VIM dated 01/29/12 GIVEN TODAY 6Result Comment: [facility]# [id number] 7Admin Note: VIM dated 08/22/11 GIVEN TODAY 8Result Comment: [facility]#[id number] Medications acetaminophen 500 mg oral capsule 2 [...] Refills, Soft Stop, 12/06/23 17:28:00 EDT, [facility]/pharmacy #5, Partial fill upon patient request [...] 16:46:00 EDT, Route to Pharmacy Electronically, [facility]/pharmacy #2024, Partial fill upon patient request if the prescription is for a... Start Date: 05/17/24 Status: Ordered cyclobenzaprine 10 mg oral tablet 10 mg, 1, tablet, By Mouth, 3 times a day, PRN, # 30 tablet, Refills 0, Tot. Refills 0, Acute 05/17/24 16:46:00 EDT, for spasm, 05/17/23 16:45:00 EDT, Route to Pharmacy Electronically, [facility]/pharmacy #2024, Partial fill upon patient request if the presc... Start Date: 05/17/23 Stop Date: 05/17/24 Status: Ordered diclofenac 1% topical gel See Instructions, APPLY TO AFFECTED AREA 4 TIMES A DAY, # 100 Gm, 1 Refills, Maintenance, 11/07/23 7:48:00 EDT, [facility]/pharmacy #2024, 25, APPLY TO AFFECTED AREA 4 TIMES A DAY, 157.5, cm, 10/18/23 15:15:00 EDT, Height, 145.9, kg, 05/22/23 7:39:00 EDT, Start Date: 11/07/23 Status: Ordered diclofenac 1% topical gel See Instructions, APPLY TO AFFECTED AREA 4 TIMES A DAY. NOT COVERED, # 100 Gm, 1 Refills, Maintenance, 02/01/24 13:44:00 EDT, [facility], 30, APPLY TO AFFECTED AREA 4 TIMES [...] Gm, 0 Refills, Maintenance, 02/28/21 16:31:00 EDT, [place], [facility]/pharmacy #2024, Partial fill upon patient request if the prescription is for... Start Date: 02/28/21 Status: Ordered FLUoxetine 10 mg oral capsule 1, capsule, By Mouth, Daily, INSTR:TO BE TAKEN WITH 20MG CAPSULES TO EQUAL 30MG DAILY, # 90 capsule, Refills 1, Maintenance, 01/25/24 9:11:00 EDT, Route to Pharmacy Electronically, [facility] 21361, 157.5, cm, 01/22/24 10:31:00 EDT, Height, 145.9, kg,... Start Date: 01/25/24 Status: Ordered gabapentin 300 mg oral capsule 600 mg, 2, capsule, By Mouth, 3 times a day, # 180 capsule, Refills 3, Tot. Refills 3, Maintenance,08/25/22 22:35:00 EST, Route to Pharmacy Electronically, [facility]/pharmacy #2024, Partial [...] Refills, Maintenance, 12/28/23 16:17:00 EDT, [facility], 157.5, cm, 10/18/23 15:15:00 EDT, Height, 145.9, [...] 5 Refills, Maintenance, 10/08/23 17:05:00 EDT, [facility]/pharmacy #2025, 157.5, cm, 07/13/23 9:57:00 EST, Height, 145.9, kg, :39:00 EDT, Dry Weight Start Date: 10/08/23 Status: Ordered metFORMIN 500 mg oral tablet, extended release 1 tablet = 500 mg, By Mouth, Daily, # 90 tablet, 1 Refills, Maintenance, 01/22/24 11:02:00 EDT, ER Tablet, [facility]/pharmacy #2025, Partial fill upon patient request [...] Code MRI Safety Implantable Status Assigning Authority [id number] Unknown [id number] Unknown 08/26/24 Unknown Unknown Active GS1 Patient Care team information Care Team Personnel Name: Celestina Trinidad MD Position: [facility] Physician - Primary Care Member Role: PCP Address: Address: [address] [place] [address] Name: Hemalatha Lucas RN [facility] Care Nurse Name: Nadya Low RN Position: [facility] RN Member Role: Primary Care Nurse Name: Mirna Greenfield RN Position: [facility] RN Member Role: Primary Care Nurse Name: Nessa Bonilla RN Position: [facility] Optometrist President/Practice Owner Member Role: Primary Care Nurse Care Team Related Persons Name: ROSETTA DINESH Address: home [address] [place] [address] Name: BON DE Address: home [address] [address]
--- OUTSIDE RECORDS SUMMARY | 2024-06-24 14:23 | XMS_ITS | Continuity of Care Document ---
Author Organization [facility] Address [address] [place] [address]- Care Team Providers Care 3Rd Grade Teacher Name Role Phone Florentino AHN, Elder Hannah Primary Care Physician Encounter [facility] Date(s): 02/28/21 - 03/07/21 [facility] [address] [place] [address]- Encounter Diagnosis Peripheral vertigo involving right ear(Discharge Diagnosis) - 02/28/21 Serous otitis media(Discharge Diagnosis) - 02/28/21 Cerumen impaction(Discharge Diagnosis) - 02/28/21 Attending Physician: Lalo Mason MD Referring Physician: Elder Good NP Allergies, Adverse [...] Comment: [facility] [place] [facility]# [id number] 2Result Comment: [05/25/2018] [facility] lot number [id number] exp 01/26/[address] [facility] [id number] 3Result Comment: [08/20/2017] [facility] [id number] 4Admin Note: VIM dated 01/29/12 GIVEN TODAY 5Result Comment: [facility]#[id number] 6Admin Note: VIM dated 08/22/11 GIVEN TODAY [...] 10/27/20 14:48:00 EDT, Route to Pharmacy Electronically, [id number], [facility]/pharmacy #2024, 160.02, cm, 10/19/20 11:04:00 EDT, Height, 156... Start Date: 10/27/20 Status: Ordered betamethasone-clotrimazole 0.05%-1% topical cream 1 application, Topically, 2 times a day, # 45 Gm, 0 Refills, Maintenance, 12/27/20 14:13:00 EDT, Cream, [facility]/pharmacy #2024, Partial fill upon [...] Gm, 0 Refills, Maintenance, 02/28/21 16:31:00 EDT, [place], [facility]/pharmacy #2024, Partial fill upon patient request if the prescription is for... Start Date: 02/28/21 Status: Ordered FLUoxetine 20 mg oral capsule 20 mg, 1, capsule, By Mouth, Daily, # 30 capsule, Refills 5, Tot. Refills 5, Maintenance, 12/20/20 14:39:00 EDT, Route to Pharmacy Electronically, [facility]/pharmacy #2024, replacing 10mg dose, 160.02, cm,12/20/20 11:59:00 EDT, Height, 156.81, kg, 10/19/20... Start Date: 12/20/20 Status: Ordered levothyroxine 0.137 mg oral tablet See Instructions, Take 1 tablet by mouth on days 1-6, then take 2 tablets by mouth on day 7, # 121 tablet, 5 Refills, Maintenance, 12/07/20 9:46:00 EDT, [facility]/pharmacy #2024, 160.02, cm, 10/19/20 11:04:00 EDT, Height, 156.81, kg, 10/19/20 11:04:00 EDT,... Start Date: 12/07/20 Status: Ordered meloxicam 15 mg oral tablet 1 tablet, By Mouth, Daily, WITH FOOD., # 30 tablet, 1 Refills, Maintenance, 02/13/21 16:32:00 EDT, [facility] STORE [facility], 160.02, cm, 01/04/21 10:42:00 EDT, Height, 143, [...] 08/04/19 17:54:00 EST, Route to Pharmacy Electronically, [facility]/pharmacy #2024, 161, cm, 08/04/19 14:44:00 EST, Height [...] 05/20/21 10:28:00 EDT, 01/20/21 10:28:00 EDT, Tablet, [facility], 160.02, cm, 01/04/21 10:42:00 EDT, Height,... Start [...] Effective Dates Health Status Clinical Service Informant Peripheral vertigo involving right ear Discharge Diagnosis 02/28/21 Cerumen impaction Discharge Diagnosis 02/28/21 Serous otitis media Discharge Diagnosis 02/28/21 Vital Signs Most recent to oldest [Reference Range]: 1 Height 160.02 cm (02/28/21 3:45 PM) Oxygen Saturation [94-100 %] 99 % (02/28/21 3:45 PM) Pulse Rate [55-90 bpm] 63 bpm (02/28/21 3:45 PM) Blood Pressure [90-138/55-84 mm Hg] 133/ 84mm Hg (02/28/21 3:45 PM) Respiratory Rate [16-30 br/min] 20 br/mi n (02/28/21 3:45 PM) Temperature [96.8-100.4 DegF] 97.3 DegF (02/28/21 3:45 PM) Mode of Delivery (Oxygen) Room air (02/28/21 3:45 PM) Blood pressure sites Arm, left (02/28/21 3:45 PM) Temperature Route Temporal (02/28/21 3:45 PM) Social History Social History Type Response Smoking Status Current every day sm oker; Tobacco user in household: No; Type: Cigarettes; Tobacco use times per day: 1/2 ppd; entered on: 07/08/15 Sex
--- OUTSIDE RECORDS SUMMARY | 2024-06-24 14:23 | XMS_ITS | Continuity of Care Document ---
Author Organization [facility] Address [address] [place] [address]- Care Team Providers Care Sketch Liner Name Role Phone Vivi HENNING, Celestina Givens Primary Care Physician [facility] Date[facility] 06[facility]22 - 07/24/22 [facility] [address] [place] [address]- Allergies, Adverse Reactions, Alerts No Known Allergies Immunizations Given and Recorded Vaccine Date Status Refusal Reason [id number] 12y+ bivalent booster vax 06/14/22 Recorded influenza [...] inactivated 4 07/31/12 Gi hali SARS-CoV-2 mRNA ([id number]) vax 02/14/22 Recorded SARS-CoV-2 (COVID-19) mRNA BNT-162b2 vac 05/06/21 Given SARS-CoV-2 (COVID-19) mRNA BNT-162b2 vac 11/04/20 Recorded SARS-CoV-2 (COVID-19) mRNA BNT-162b2 vac 10/14/20 Recorded pneumococcal 23-valent vaccine 5 04/07/19 Given tetanus/diphtheria/pertussis, acel(Tdap) 6 08/13/12 Given 1Result Comment: [facility]# [id number] 2Result Comment: [05/25/2018] [facility] lot number [id number] exp 01/26/2019 [facility] [id number] 3Result Comment: [08/20/2017] [facility] [id number] 4Admin Note: VIM dated 01/29/12 GIVEN TODAY 5Result Comment: [facility]#[id number] 6Admin Note: VIM dated 08/22/11 GIVEN TODAY [...] Stop, 04/10/2215:14:00 EDT, Route to Pharmacy Electronically, [id number], [facility]/pharmacy #2025, 158, cm, 04/10/22 14:56:00 EDT, Height, 143,... Start Date: 04/10/22 Status: Ordered amLODIPine 10 mg oral tablet 1 tablet, By Mouth, Daily, # 90 tablet, 0 Refills, Maintenance, 07/21/22 17:34:00 EST, [facility], 158, cm, 07/21/22 15:09:00 EST, Height, 143, kg, 01/04/21 10:42:00 EDT, Dry Weight Start Date: 07/21/22 Status: Ordered Anoro Ellipta 62.5 mcg-25 mcg/inh inhalation powder 1 puffs, By Mouth, Daily, # 1 each, 6 Refills, Maintenance, 05/11/22 13:00:00 EDT, Powder, [facility], Partial fill upon patient request if [...] Gm, 1 Refills, 09/19/21 12:51:00 EST, [facility]/pharmacy #2024, 25, APPLY TOPICALLY 4 TIMES A DAY, 160.02, cm, 07/25/21 16:20:00 EST, Height, 143, kg,01/04/21 10:42:00 EDT, Dry Weight Start Date: 09/19/21 Status: Ordered doxycycline hyclate 100 mg oral tablet 1 tablet = 100 mg, By Mouth, 2 times a day, for 10 days, # 20 tablet, 0 Refills, Acute 08/02/22 1:51:00 EST, 07/23/22 1:51:00 EST, Capsule, [facility]/pharmacy #2024, Partial fill upon patient request if the prescription is for a schedule II opioid drug., 15... Start Date: 07/23/22 Stop Date: 08/02/22 Status: Ordered doxycycline hyclate 100 mg oral tablet 1 tablet, By Mouth, 2 times a day, # 20 tablet, 0 Refills, Maintenance, 07/21/22 17:34:00 EST, [facility], 158, cm, 07/21/22 15:09:00 EST, Height, 143, kg, 01/04/21 10:42:00 EDT, Dry Weight Start Date: 07/21/22 Stop Date: 07/31/22 Status: Ordered Flonase 50 mcg/inh nasal spray See Instructions, 2 sprays Nares twice daily x 1 week, then once daily x 1-2 weeks until symptoms improve, # 16 Gm, 0 Refills, Maintenance, 02/28/21 16:31:00 EDT, [place], [facility]/pharmacy #2024, Partial fill upon patient request if the prescription is for... Start Date: 02/28/21 Status: Ordered FLUoxetine 20 mg oral capsule See Instructions, TAKE 1 CAPSULE BY MOUTH EVERY DAY, # 90 capsule, Refills 1, Maintenance, 06/13/2215:26:00 EST, Instructions Replace Required Details, Route to Pharmacy Electronically, [facility] STORE [facility], 158, cm, 06/09/22 11:21:00 EST, Height, 143, kg... Start Date: 06/13/22 Status: Ordered gabapentin 300 mg oral capsule 600 mg, 2, capsule, By Mouth, 2 times a day, # 120 capsule, Refills 1, Tot. Refills 1, Maintenance,07/22/22 8:06:00 EST, Route to Pharmacy Electronically, [facility]/pharmacy #2025, Partial fill upon patient request if the prescription is for a schedule II... Start Date: 07/22/22 Status: Ordered levothyroxine 0.137 mg oral tablet 1 tablet = 137 mcg, By Mouth, Daily, 1 tab on days 1-6, take 2 tabs on day 7, # 102 tablet, 1 Refills, Maintenance, 07/03/22 14:41:00 EST, Tablet, [facility]/pharmacy #2025, Partial fill upon patient request if the prescription is for a schedule II opioid drMelonie.. Start Date: 07/03/22 Status: Ordered levothyroxine 0.137 mg oral tablet See Instructions, TAKE 1 TABLET BY MOUTH ON DAYS 1-6, THEN TAKE 2 TABLETS BY MOUTH ON DAY 7 Needs TSH lab work for refills, # 96 tablet, 0 Refills, 06/29/22 15:47:00 EST, [facility]/pharmacy #5, 158, cm,06/09/22 11:21:00 EST, Height, 143, kg, 01/04/21 1... Start Date: 06/29/22 Status: Ordered meclizine 25 mg oral tablet See Instructions, PRN Dizziness, 1 tablet By Mouth 3 times a day, # 30 tablet, 0 Refills, Maintenance, 05/11/21 13:11:00 EDT, [facility]/pharmacy #2024, Partial fill [...] Celestina Trinidad MD Position: [facility] Primary Care Physician Member Role: PCP Address: Address: [address] [place] [id number] Name: Lauren Mack RN Position: [facility] Nurse Member Role: Primary Care [...] Bonilla RN Position: [facility] Hospital Excellence Coach Member Role: Primary Care Nurse Care Team Related Persons Name: ROSETTA DINESH Address: home [address] [place] [address] Name: BNO DE Address: home [address] [address]
--- OUTSIDE RECORDS SUMMARY | 2024-06-24 14:23 | XMS_ITS | Continuity of Care Document ---
Author Organization [facility] Address [address] [place] [address]- Care Team Providers Care Story Writer Name Role Phone Vivi HENNING, Celestina Givens Primary Care Physician [facility] Date[facility]): 08[facility]22 - 09/08/22 [facility] [address] [place] [address]- Allergies, Adverse Reactions, Alerts No Known Allergies Immunizations Given and Recorded Vaccine Date Status Refusal Reason tetanus/diphtheria/pertussis, acel(Tdap) 1 08/21/22 Given tetanus/diphtheria/pertussis, acel(Tdap) 2 08/13/12 Given [id number] 12y+ bivalent booster vax 06/14/22 Recorded influenza virus vaccine, inactivated 06/08/22 Give n influenza virus vaccine, inactivated 05/06/21 Give n influenza virus vaccine, inactivated 06/08/20 Give n influenza virus vaccine, inactivated 3 05/27/19 Gi ahli influenza virus vaccine, inactivated 4 05/25/18 Gi hali influenza virus vaccine, inactivated 5 08/20/17 Gi hali influenza virus vaccine, inactivated 05/17/16 Give n influenza virus vaccine, inactivated 08/11/15 Give n influenza virus vaccine, inactivated 6 07/31/12 Gi hali SARS-CoV-2 mRNA ([id number]-[id number]) vax 02/14/22 Recorded SARS-CoV-2 (COVID-19) mRNA BNT-162b2 vac 05/06/21 Given SARS-CoV-2 (COVID-19) mRNA BNT-162b2 vac 11/04/20 Recorded SARS-CoV-2 (COVID-19) mRNA BNT-162b2 vac 10/14/20 Recorded pneumococcal 23-valent vaccine 7 04/07/19 Given 1Result Comment: [facility]# [id number] 2Admin Note: VIM dated 08/22/11 GIVEN TODAY 3Result Comment: [facility]# [id number] 4Result Comment: [05/25/2018] [facility] lot number [id number] exp 01/26/2019 [facility] [id number] 5Result Comment: [08/20/2017] [facility] [id number] 6Admin Note: VIM dated 01/29/12 GIVEN TODAY 7Result Comment: [facility]#[id number] Medications acetaminophen 500 mg oral capsule 2 [...] Stop, 04/10/2215:14:00 EDT, Route to Pharmacy Electronically, [id number], [facility]/pharmacy #2025, 158, cm, 04/10/22 14:56:00 EDT, Height, 143,... Start Date: 04/10/22 Status: Ordered amLODIPine 5 mg oral tablet 1 tablet, By Mouth, Daily, # 30 tablet, 5 Refills, Maintenance, 08/24/22 20:08:00 EST, [facility], 159, cm, 08/21/22 11:38:00 EST, Height, 143, kg, 01/04/21 10:42:00 EDT, Dry Weight Start Date: 08/24/22 Status: Ordered Anoro Ellipta 62.5 mcg-25 mcg/inh inhalation powder 1 puffs, By Mouth, Daily, # 1 each, 6 Refills, Maintenance, 05/11/22 13:00:00 EDT, Powder, [facility], Partial fill upon patient request if the prescription is for a schedule II opioid drug., 1puffs By Mouth Daily,x30 days, 158, cm, 05/08/22 11... Start Date: 05/11/22 Stop Date: 12/07/22 Status: Ordered Augmentin 875 mg-125 mg oral tablet 1 tablet, By Mouth, Every 12 hours, for 6 week(s), # 84 tablet, 0 Refills, Acute 10/12/22 13:28:00 EDT, 08/31/22 13:28:00 EST, Tablet, [facility]/pharmacy #5, Partial fill upon patient request if the prescription is for a schedule II opioid drug., 157, cm... Start Date: 08/31/22 Stop Date: 10/12/22 Status: Ordered cilostazol 50 mg oral tablet 1 tablet = 50 mg, By Mouth, Daily, # 180 tablet, 0 Refills, Maintenance, 09/02/22 10:35:00 EST, Tablet, [facility]/pharmacy #5, Partial fill upon patient request if [...] Gm, 1 Refills, 09/19/21 12:51:00 EST, [facility]/pharmacy #202, 25, APPLY TOPICALLY 4 TIMES A DAY, 160.02, cm, 07/25/21 16:20:00 EST, Height, 143, kg,01/04/21 10:42:00 EDT, Dry Weight Start Date: 09/19/21 Status: Ordered docusate sodium 100 mg oral capsule 100 mg, 1, capsule, By Mouth, 2 times a day, PRN, # 20 capsule, Refills 0, Tot. Refills 0, Maintenance, as needed for constipation, 08/31/22 13:30:00 EST, Route to Pharmacy Electronically, [facility]/pharmacy #202, Partial fill upon patient request if the p... Start Date: 08/31/22 Status: Ordered Flonase 50 mcg/inh nasal spray See Instructions, 2 sprays Nares twice daily x 1 week, then once daily x 1-2 weeks until symptoms improve, # 16 Gm, 0 Refills, Maintenance, 02/28/21 16:31:00 EDT, [place], [facility]/pharmacy #202, Partial fill upon patient request if the prescription is for... Start Date: 02/28/21 Status: Ordered fluconazole 200 mg oral tablet 2 tablet = 400 mg, By Mouth, Daily, for 6 week(s), # 84 tablet, 0 Refills, Acute 10/12/22 13:28:00 EDT, 08/31/22 13:28:00 EST, Tablet, [facility]/pharmacy #202, Partial fill upon patient request if the prescription is for a schedule II opioid drug., 157, cm... Start Date: 08/31/22 Stop Date: 10/12/22 Status: Ordered FLUoxetine 20 mg oral capsule See Instructions, TAKE 1 CAPSULE BY MOUTH EVERY DAY, # 90 capsule, Refills 1, Maintenance, 06/13/2215:26:00 EST, Instructions Replace Required Details, Route to Pharmacy Electronically, [facility], 158, cm, 06/09/22 11:21:00 EST, Height, 143, kg... Start Date: 06/13/22 Status: Ordered furosemide 20 mg oral tablet 1, tablet, By Mouth, Daily, MAY REPEAT IF NEEDED IN 2 HOURS, # 30 tablet, Refills 0, Maintenance, 09/07/22 12:45:00 EST, Route to Pharmacy Electronically, [facility], 157, cm, 09/05/22 15:49:00 EST, Height, 145, [...] Refills, Maintenance, 07/03/22 14:41:00 EST, Tablet, [facility]/pharmacy #2024, Partial fill upon patient request if the prescription is for a schedule II opioid drMelonie.. Start Date: 07/03/22 Status: Ordered meclizine 25 mg oral tablet See Instructions, PRN Dizziness, 1 tablet By Mouth 3 times a day, # 30 tablet, 0 Refills, Maintenance, 05/11/21 13:11:00 EDT, [facility]/pharmacy #2024, Partial fill upon patient request if the prescriptionis for a schedule II opioid drug., 160.02, cm, 10/0... Start Date: 05/11/21 Status: Ordered meloxicam 15 mg oral tablet See Instructions, TAKE 1 TABLET BY MOUTH DAILY WITH FOOD. LABS NEEDED FOR FURTHER REFILLS, # 30 tablet, 3 Refills, Maintenance, 07/17/22 19:56:00 EST, [facility]/pharmacy #2024, 158, cm, 07/13/22 13:46:00 EST, Height, [...] 16:29:00 EST, Route to Pharmacy Electronically, [facility]/pharmacy #2024, Partialfill upon patient request if the prescription is fo... Start Date: 09/05/22 Stop Date: 09/12/22 Status: Ordered traMADol 50 mg oral tablet See Instructions, 2 tab po qam and one tab po q pm prn moderate to severe pain, # 81 tablet, 0 Refills, Maintenance, 07/11/22 17:21:00 EST, [facility]/pharmacy #2024, 158, cm, 07/07/22 11:19:00 EST, Height,143, [...] Care Physician Member Role: PCP Address: Address: [address] [place] [id number] Name: Hemalatha Lucas RN Position: [facility] RN Member Role: Primary Care Nurse Name: Lauren Mack RN Position: [facility] AMB Nurse Member Role: Primary Care Nurse Name: Madelaine Ruiz RN Position: [facility] RN Member Role: Primary Care Nurse Name: Lora Santiago RN Position: [facility] RN Member [...] Nessa Bonilla RN Position: [facility] Relay Tester Member Role: Primary Care Nurse Care Team Related Persons Name: DINESH SARGENT Address: home [address] [place] [address] Name: BON DE Address: home [address] [place] [address]
--- OUTSIDE RECORDS SUMMARY | 2024-06-24 14:23 | XMS_ITS | Continuity of Care Document ---
Author Organization [facility] Address [address] [place] [address]- Care Team Providers Care Leather Case Finisher Name Role Phone Florentino AHN, Elder Hannah Primary Care Physician [phone] [facility]20 [facility] [address] [place] [address]- Attending Physician: Calixto Beltran Admitting Physician: Calixto [...] 6 08/13/12 Given 1Result Comment: [facility]# [id number] 2Result Comment: [05/25/2018] [facility] lot number [id number] exp 01/26/2019 [facility] [id number] 3Result Comment: [08/20/2017] [facility] [id number] 4Admin Note: VIM dated 01/29/12 GIVEN TODAY 5Result Comment: [facility]#[id number] 6Admin Note: VIM dated 08/22/11 GIVEN TODAY [...] EVERY 6 HOURS NEEDED FOR WHEEZE, [facility]/pharmacy #2024 Start Date: 05/27/19 Status: Ordered diclofenac 1% topical gel 1 applicator, Topically, 4 times a day, # 100 Gm, 0 Refills, Maintenance, 06/08/20 15:07:00 EST, Gel, [facility]/pharmacy #2024, 161, cm, 06/08/20 13:48:00 EST, Height Start Date: 06/08/20 Status: Ordered FLUoxetine 20 mg oral capsule 20 mg, 1, capsule, By Mouth, Daily, # 30 capsule, Refills 5, Tot. Refills 5, Maintenance, 05/13/20 9:34:00 EDT, Route to Pharmacy Electronically, [facility]/pharmacy #2024, replacing 10mg dose, 161, cm, 05/13/20 8:28:00 EDT, Height Start Date: 05/13/20 Status: Ordered levothyroxine 0.137 mg oral tablet 1 tablet = 137 mcg, By Mouth, Daily, # 30 tablet, 3 Refills, Maintenance, 06/08/20 15:09:00 EST, Tablet, [facility]/pharmacy #2024, 161, cm, 06/08/20 13:48:00 EST, Height Start Date: 06/08/20 Stop Date: 10/06/20 Status: Ordered levothyroxine 125 mcg (0.125 mg) oral tablet 1 tablet = 125 mcg, By Mouth, Daily, # 30 tablet, 5 Refills, Maintenance, 05/13/20 9:34:00 EDT, Tablet, [facility]/pharmacy #2024, 161, cm, 05/13/20 8:28:00 EDT, Height Start Date: 05/13/20 Status: Ordered meloxicam 15 mg oral tablet 1 tablet = 15 mg, By Mouth, Daily, Take w food., # 30 tablet, 1 Refills, Maintenance, 07/08/20 11:31:00 EST, Tablet, [facility]/pharmacy #2025, Labs needed for further refills, 161, [...] 17:54:00 EST, Route to Pharmacy Electronically, [facility]/pharmacy #5, 161, cm, 08/04/19 14:44:00 EST, Height [...] 9:34:00 EST, 05/13/20 9:34:00 EDT, Tablet, [facility], 161, cm, 05/13/20 8:28:00 EDT, [...]
--- OUTSIDE RECORDS SUMMARY | 2024-06-24 14:23 | XMS_ITS | Continuity of Care Document ---
Author Organization [facility] Address [address] [place] [address]- Care Team Providers Care Facilities Engineering Manager Name Role Phone Florentino AHN, Elder Hannah Primary Care Physician [phone] [facility] - 08/24/20 [facility] [address] [place] [address]- Attending Physician: Calixto Beltran Admitting Physician: Calixto [...] 08/13/12 Given 1Result Comment: [facility]# [id number] 2Result Comment: [05/25/2018] [facility] lot number [id number] exp 01/26/2019 [facility] [id number] 3Result Comment: [08/20/2017] [facility] [id number] 4Admin Note: VIM dated 01/29/12 GIVEN TODAY 5Result Comment: [facility]#[id number] 6Admin Note: VIM dated 08/22/11 GIVEN TODAY [...] PUFFS EVERY 6 HOURS NEEDED FOR WHEEZE, [facility]/pharmacy #2024 Start Date: 05/27/19 Status: Ordered diclofenac 1% topical gel See Instructions, APPLY TOPICALLY 4 TIMES A DAY, # 100 Gm, 0 Refills, Maintenance, [facility] STORE ,25, APPLY TOPICALLY 4 TIMES A DAY, 161, cm, 06/08/20 13:48:00 EST, Height Start Date: 07/12/20 Status: Ordered FLUoxetine 20 mg oral capsule 20 mg, 1, capsule, By Mouth, Daily, # 30 capsule, Refills 5, Tot. Refills 5, Maintenance, 05/13/20 9:34:00 EDT, Route to Pharmacy Electronically, [facility]/pharmacy #2024, replacing 10mg dose, 161, cm, 05/13/20 8:28:00 EDT, Height Start Date: 05/13/20 Status: Ordered levothyroxine 0.137 mg oral tablet 1 tablet = 137 mcg, By Mouth, Daily, # 30 tablet, 3 Refills, Maintenance, 06/08/20 15:09:00 EST, Tablet, [facility]/pharmacy #2024, 161, cm, 06/08/20 13:48:00 EST, Height Start Date: 06/08/20 Stop Date: 10/06/20 Status: Ordered levothyroxine 125 mcg (0.125 mg) oral tablet 1 tablet = 125 mcg, By Mouth, Daily, # 30 tablet, 5 Refills, Maintenance, 05/13/20 9:34:00 EDT, Tablet, [facility]/pharmacy #2024, 161, cm, 05/13/20 8:28:00 EDT, Height Start Date: 05/13/20 Status: Ordered meloxicam 15 mg oral tablet 1 tablet = 15 mg, By Mouth, Daily, Take w food., # 30 tablet, 1 Refills, Maintenance, 07/08/20 11:31:00 EST, Tablet, [facility]/pharmacy #2025, Labs needed for further refills, [...] 09/10/20 9:34:00 EST, 05/13/20 9:34:00 EDT, Tablet, [facility]/pharmacy #2024, 161, cm, 05/13/20 8:28:00 EDT, [...]
--- OUTSIDE RECORDS SUMMARY | 2024-06-24 14:23 | XMS_ITS | Continuity of Care Document ---
Author Organization [facility] Address [address] [place] [address]- Care Team Providers Care Digital Campaign Specialist Name Role Phone Vivi HENNING, Celestina Givens Primary Care Physician [facility]counter [facility] Date(s): 07/20/22 - 08/19/22 [facility] [address] [place] [address]- Allergies, Adverse Reactions, Alerts No Known Allergies Immunizations Given and Recorded Vaccine Date Status Refusal Reason [id number]-[id number] 12y+ bivalent booster vax 06/14/22 Recorded influenza [...] inactivated 4 07/31/12 Gi hali SARS-CoV-2 mRNA (gbuwcrt-koco-uprrk) vax 02/14/22 Recorded SARS-CoV-2 (COVID-19) mRNA BNT-162b2 vac 05/06/21 Given SARS-CoV-2 (COVID-19) mRNA BNT-162b2 vac 11/04/20 Recorded SARS-CoV-2 (COVID-19) mRNA BNT-162b2 vac 10/14/20 Recorded pneumococcal 23-valent vaccine 5 04/07/19 Given tetanus/diphtheria/pertussis, acel(Tdap) 6 08/13/12 Given 1Result Comment: [facility]# [id number] 2Result Comment: [05/25/2018] seq[employer] lot number [id number] exp 01/26/2019 [facility] [id number] 3Result Comment: [08/20/2017] [facility] [id number] 4Admin Note: VIM dated 01/29/12 GIVEN TODAY 5Result Comment: [facility]#[id number] 6Admin Note: VIM dated 08/22/11 GIVEN TODAY [...] Stop, 04/10/2215:14:00 EDT, Route to Pharmacy Electronically, [id number], [facility]/pharmacy #2025, 158, cm, 04/10/22 14:56:00 EDT, Height, 143,... Start Date: 04/10/22 Status: Ordered amLODIPine 10 mg oral tablet 1 tablet, By Mouth, Daily, # 90 tablet, 0 Refills, Maintenance, 07/21/22 17:34:00 EST, [facility], 158, cm, 07/21/22 15:09:00 EST, Height, 143, kg, 01/04/21 10:42:00 EDT, Dry Weight Start Date: 07/21/22 Status: Ordered Anoro Ellipta 62.5 mcg-25 mcg/inh inhalation powder 1 puffs, By Mouth, Daily, # 1 each, 6 Refills, Maintenance, 05/11/22 13:00:00 EDT, Powder, [facility], Partial fill upon patient request if [...] 0 Refills, Maintenance, 08/01/22 16:58:00 EST, Tablet, [facility]/pharmacy #202, Partial fill upon patient request [...] 100 Gm, 1 Refills, 09/19/21 12:51:00 EST, [facility]/pharmacy #202, 25, APPLY TOPICALLY 4 TIMES [...] Gm, 0 Refills, Maintenance, 02/28/21 16:31:00 EDT, [place], [facility]/pharmacy #202, Partial fill upon patient request if the prescription is for... Start Date: 02/28/21 Status: Ordered FLUoxetine 20 mg oral capsule See Instructions, TAKE 1 CAPSULE BY MOUTH EVERY DAY, # 90 capsule, Refills 1, Maintenance, 06/13/2215:26:00 EST, Instructions Replace Required Details, Route to Pharmacy Electronically, [facility] STORE [facility], 158, cm, 06/09/22 11:21:00 EST, Height, 143, kg... Start Date: 06/13/22 Status: Ordered gabapentin 300 mg oral capsule 600 mg, 2, capsule, By Mouth, 2 times a day, # 120 capsule, Refills 1, Tot. Refills 1, Maintenance,07/22/22 8:06:00 EST, Route to Pharmacy Electronically, [facility]/pharmacy #2024, Partial fill upon patient request if the prescription is for a schedule II... Start Date: 07/22/22 Status: Ordered levothyroxine 0.137 mg oral tablet 1 tablet = 137 mcg, By Mouth, Daily, 1 tab on days 1-6, take 2 tabs on day 7, # 102 tablet, 1 Refills, Maintenance, 07/03/22 14:41:00 EST, Tablet, [facility]/pharmacy #202, Partial fill upon patient request if the prescription is for a schedule II opioid dr... Start Date: 07/03/22 Status: Ordered levothyroxine 0.137 mg oral tablet See Instructions, TAKE 1 TABLET BY MOUTH ON DAYS 1-6, THEN TAKE 2 TABLETS BY MOUTH ON DAY 7 Needs TSH lab work for refills, # 96 tablet, 0 Refills, 06/29/22 15:47:00 EST, [facility]/pharmacy #2024, 158, cm,06/09/22 11:21:00 EST, Height, 143, kg, 01/04/21 1... Start Date: 06/29/22 Status: Ordered meclizine 25 mg oral tablet See Instructions, PRN Dizziness, 1 tablet By Mouth 3 times a day, # 30 tablet, 0 Refills, Maintenance, 05/11/21 13:11:00 EDT, [facility]/pharmacy #2024, Partial fill [...] 0 Refills, Maintenance, 08/01/22 16:58:00 EST, Tablet, [facility]/pharmacy #2024, Partial fill [...] Acute 09/27/22 16:00:00 EST, 08/01/22 21:26:00EST, Ointment, [facility]/pharmacy #2024, Partial fill [...] Celestina Trinidad MD Position: [facility] Primary Care Physician Member Role: PCP Address: Address: [address] [place] [id number] Name: Lauren Mack RN Position: [facility] [...] Care Nurse Name: Nessa Bonilla RN Position: [facility] Public Safety Dispatcher Member Role: Primary Care Nurse Care Team Related Persons Name: ROLA SARGENTELLE Address: home [address] [place] [address] Name: BON DE Address: home [address] [place] [address]
--- OUTSIDE RECORDS SUMMARY | 2024-06-24 14:23 | XMS_ITS | Continuity of Care Document ---
Author Organization [facility] Address [address] [place] [address]- Care Team Providers Care Safety Aide Name Role Phone Vivi HENNING, Celestina Givens Primary Care Physician [facility] Date[facility]s): 07/10/23 - 08/09/23 [facility] [address] [place], [place] [address] Allergies, Adverse Reactions, Alerts [...] 08/21/22 Given tetanus/diphtheria/pertussis, acel(Tdap) 7 08/13/12 Given IFAA-RtX-9wLZG 12y+ bivalent booster vax 06/14/22 Recorded SARS-CoV-2 mRNA (fbzgmzp-tcbq-xbehn) vax 02/14/22 Recorded SARS-CoV-2 (COVID-19) mRNA BNT-162b2 vac 05/06/21 Given SARS-CoV-2 (COVID-19) mRNA BNT-162b2 vac 11/04/20 Recorded SARS-CoV-2 (COVID-19) mRNA BNT-162b2 vac 10/14/20 Recorded pneumococcal 23-valent vaccine 8 04/07/19 Given 1Result Comment: screening negative 2Result Comment: [facility]# [id number] 3Result Comment: [05/25/2018] [employer] lot number [id number] exp 01/26/2019 [facility] 49460-551-34 4Result Comment: [08/20/2017] [facility] 52465-982-60 5Admin Note: VIM dated 01/29/12 GIVEN TODAY 6Result Comment: [facility]# [id number] 7Admin Note: VIM dated 08/22/11 GIVEN TODAY 8Result Comment: [facility]#[id number] Medications acetaminophen 500 mg oral capsule 2 [...] Refills, Maintenance, 02/28/21 16:31:00 EDT, [place], [facility], Partial fill upon patient request [...] Refills, Maintenance, 02/27/23 7:25:00 EDT, [facility] STORE [facility]008, 157, cm, 12/08/22 14:27:00 EDT, Height, 145, kg, 08/29/22 20:13:00 EST, Dry... Start Date: 02/27/23 Status: Ordered levothyroxine 150 mcg (0.15 mg) oral tablet 1 tablet = 150 mcg, By Mouth, Daily, # 90 tablet, 0 Refills, Maintenance, 07/15/23 17:38:00 EST, Tablet, [facility]/pharmacy [...] Refills, Maintenance, 07/28/23 10:21:00 EST, [facility], 157.5, cm, 07/13/23 9:57:00 EST, Height, 145.9, [...] tablet, 0 Refills, Maintenance, 08/05/23 12:22:00 EST, [facility]/pharmacy #5, 157.5, cm, 07/13/23 9:57:00 EST, Height, [...] Code MRI Safety Implantable Status Assigning Authority [id number] [id number] Unknown [id number] Unknown 08/26/24 Unknown Unknown Active GS1 Patient Care team information Care Team Personnel Name: Celestina Trinidad MD Position: [facility] Physician - Primary Care Member Role: PCP Address: Address: [address] [place] [id number]- Name: Hemalatha Lucas RN Position: [facility] RN Member Role: Primary Care Nurse Name: Lauren Mack RN Position: [facility] AMB Nurse Member Role: Primary Care Nurse Name: Madelaine Ruiz RN Position: [facility] RN Member Role: Primary Care Nurse Name: Lora Santiago RN Position: [facility] SN RN Member Role: Primary Care Nurse Name: Mayco Ro RN Position: [facility] RN Member Role: Primary Care Nurse Name: Heydi Potts RN Position: [facility] SN RN Member Role: Primary Care Nurse Name: Janice Romano LPN Position: [facility] RN Member Role: Primary Care Nurse Name: Nadya Low RN Position: [facility] RN Member Role: Primary Care Nurse Name: Mirna Greenfield RN Position: [facility] RN Member Role: Primary Care Nurse Name: Nessa Bonilla RN Position: [facility] Grit Removal Operator Member Role: Primary Care Nurse Care Team Related Persons Name: DINESH SARGENT Address: home [address] [place] [address] Name: BON DE Address: home [address] [address]
--- OUTSIDE RECORDS SUMMARY | 2024-06-24 14:23 | XMS_ITS | Continuity of Care Document ---
Author Organization [facility] Address [address] [place] [address]- Care Team Providers Care Rail Crew Member Name Role Phone Vivi HENNING, Celestina Givens Primary Care Physician Encounter [facility] Date(s): 03/28/24 - 04/27/24 [facility] [address] [place] [address]- Allergies, Adverse Reactions, Alerts No Known Allergies [...] 08/21/22 Given tetanus/diphtheria/pertussis, acel(Tdap) 7 08/13/12 Given ONMX-XgM-8dIHX 12y+ bivalent booster vax 06/14/22 Recorded SARS-CoV-2 mRNA (wftjzyf-gckn-aqlwc) vax 02/14/22 Recorded SARS-CoV-2 (COVID-19) mRNA BNT-162b2 vac 05/06/21 Given SARS-CoV-2 (COVID-19) mRNA BNT-162b2 vac 11/04/20 Recorded SARS-CoV-2 (COVID-19) mRNA BNT-162b2 vac 10/14/20 Recorded pneumococcal 23-valent vaccine 8 04/07/19 Given 1Result Comment: screening negative 2Result Comment: [facility]# [id number] 3Result Comment: [05/25/2018] seq[facility] lot number [id number] exp 01/26/2019 [facility] 74941-373-16 4Result Comment: [08/20/2017] [facility] [id number] 5Admin Note: VIM dated 01/29/12 GIVEN TODAY 6Result Comment: [facility]# [id number] 7Admin Note: VIM dated 08/22/11 GIVEN TODAY 8Result Comment: [facility]#[id number] Medications acetaminophen 500 mg oral capsule 2 [...] 1 Refills, Soft Stop, 12/06/23 17:28:00 EDT, [facility]/pharmacy #5, Partial fill upon [...] Gm, 0 Refills, Maintenance, 02/28/21 16:31:00 EDT, [place], [facility]/pharmacy #2024, Partial fill upon patient request if the prescription is for... Start Date: 02/28/21 Status: Ordered FLUoxetine 10 mg oral capsule 1, capsule, By Mouth, Daily, INSTR:TO BE TAKEN WITH 20MG CAPSULES TO EQUAL 30MG DAILY, # 90 capsule, Refills 1, Maintenance, 01/25/24 9:11:00 EDT, Route to Pharmacy Electronically, [facility] STORE 0[facility]82, 157.5, cm, 01/22/24 10:31:00 EDT, Height, 145.9, kg,... Start Date: 01/25/24 Status: Ordered gabapentin 300 mg oral capsule 600 mg, 2, capsule, By Mouth, 3 times a day, # 180 capsule, Refills 3, Tot. Refills 3, Maintenance,08/25/22 22:35:00 EST, Route to Pharmacy Electronically, [facility]/pharmacy #2024, Partial fill upon [...] Refills, Maintenance, 12/28/23 16:17:00 EDT, [facility], 157.5, cm, 10/18/23 15:15:00 EDT, Height, 145.9, [...] tablet, 1 Refills, Maintenance, 03/28/24 7:37:00 EDT, [facility]/pharmacy #2025, 157.5, cm, 02/12/24 14:48:00 EDT, Height, 145.9, kg, :39:00 EDT, Dry Weight Start Date: 03/28/24 Status: Ordered metFORMIN 500 mg oral tablet, extended release 1 tablet = 500 mg, By Mouth, Daily, # 90 tablet, 1 Refills, Maintenance, 01/22/24 11:02:00 EDT, ER Tablet, [facility]/pharmacy #2025, Partial fill upon [...] tablet, 0 Refills, Maintenance, 03/31/24 17:50:00 EDT, [facility]/pharmacy #2025, Partial fill upon [...] Code MRI Safety Implantable Status Assigning Authority [id number] [id number] Unknown [id number] Unknown 08/26/24 Unknown Unknown Active GS1 Patient Care team information Care Team Personnel Name: Celestina Trinidad MD Position: [facility] Physician - Primary Care Member Role: PCP Address: Address: [address] [place] [id number] Name: Hemalatha Lucas RN Position: [facility] Bonilla RN Position: [facility] Laborer Construction [employer] Member Role: Primary Care Nurse Care Team Related Persons Name: DINESH SARGENT Address: home [address] [place] [address] Name: BON DE Address: home [address] [address]
--- OUTSIDE RECORDS SUMMARY | 2024-06-24 14:23 | XMS_ITS | Continuity of Care Document ---
Author Organization [facility] Address [address] [place] [address]- Care Team Providers Care Kardex Clerk Name Role Phone Noe AHN, Mónica Graham Primary Care Physician [facility] Date(s): 07/11/21 - 08/10/21 [facility] [address] [place] [address]- Allergies, Adverse Reactions, Alerts Substance Reaction Severity [...] 08/13/12 Given 1Result Comment: [facility]# [id number] 2Result Comment: [05/25/2018] seq[facility] lot number [id number] exp 01/26/2019 [facility] [id number] 3Result Comment: [08/20/2017] [facility] [id number] 4Admin Note: VIM dated 01/29/12 GIVEN TODAY 5Result Comment: [facility]#[id number] 6Admin Note: VIM dated 08/22/11 GIVEN TODAY [...] 16:52:00 EST, Powder, Route to Pharmacy Electronically, [id number], [facility]/pharmacy #2024, 160.02, cm, 07/25/21 16:20:00 EST, [place]... [...] 07/25/21 16:53:00 EST, Route to Pharmacy Electronically, [id number], [facility], 160.02, cm, 07/25/21 16:20:00 EST, [...] Gm, 0 Refills, Maintenance, 02/28/21 16:31:00 EDT, [place], [facility]/pharmacy #2024, Partial fill upon patient request if the prescription is for... Start Date: 02/28/21 Status: Ordered FLUoxetine 10 mg oral capsule 10 mg, 1, capsule, By Mouth, Daily, Take with 20mg capsule for total of 30mg daily, # 90 capsule, Refills 1, Tot. Refills 1, Maintenance, 05/04/21 16:44:00 EDT, Route to Pharmacy Electronically, [facility]/pharmacy #2024, Partial fill upon patient request if... Start Date: 05/04/21 Status: Ordered FLUoxetine 20 mg oral capsule 20 mg, 1, capsule, By Mouth, Daily, Take with Fluoxetine 10mg for a total of 30mg, # 90 capsule, Refills 1, Tot. Refills 1, Maintenance, 05/04/21 16:44:00 EDT, Route to Pharmacy Electronically, [facility]/pharmacy #2024, replacing 10mg dose, 160.02, cm, 080... [...] 0 Refills, Maintenance, 05/11/21 13:11:00 EDT, [facility]/pharmacy #202, Partial fill upon patient request if the prescriptionis for a schedule II opioid drug., 160.02, cm, 100... Start Date: 05/11/21 Status: Ordered meloxicam 15 mg oral tablet 1 tablet, By Mouth, Daily, WITH FOOD., # 30 tablet, 0 Refills, [facility] STORE 19815, 160.02, cm, 05/06/21 10:09:00 EDT, Height, 143, [...] tablet, 0 Refills, Maintenance, 07/20/21 17:37:00 EST, [facility]/pharmacy #2024, 160.02, cm, 07/13/21 15:00:00 EST, Height, 143, kg, 01/04/21 10:42:00 EDT, Dry Weight Start Date: 07/20/21 Stop Date: 08/17/21 Status: Ordered zolpidem 10 mg oral tablet 1 tablet = 10 mg, By Mouth, Daily at bedtime, PRN for sleep, for 30 days, masspat check may fill less, # 30 tablet, 3 Refills, Acute 09/08/21 13:11:00 EST, 05/11/21 13:11:00 EDT, Tablet, [facility]/pharmacy#2024, 160.02, cm, 05/06/21 10:09:00 EDT, Height,... Start [...]
--- OUTSIDE RECORDS SUMMARY | 2024-06-24 14:23 | XMS_ITS | Continuity of Care Document ---
Author Organization [facility] Address [address] [place] [address], [address] [place] [address]- Care Team Providers Care Impregnation Operator Name Role Phone Vivi HENNING, Celestina Givens Primary Care Physician [facility] Date(s): 05/23/24 - 06/22/[address] [place], [place] [address] Encounter Type: Triage Allergies, Adverse Reactions, Alerts [...] 08/21/22 Given tetanus/diphtheria/pertussis, acel(Tdap) 7 08/13/12 Given OYEC-OoG-6fWAC 12y+ bivalent booster vax 06/14/22 Recorded SARS-CoV-2 mRNA (ghlnzqg-dbne-vbvwb) vax 02/14/22 Recorded SARS-CoV-2 (COVID-19) mRNA BNT-162b2 vac 05/06/21 Given SARS-CoV-2 (COVID-19) mRNA BNT-162b2 vac 11/04/20 Recorded SARS-CoV-2 (COVID-19) mRNA BNT-162b2 vac 10/14/20 Recorded pneumococcal 23-valent vaccine 8 04/07/19 Given 1Result Comment: screening negative 2Result Comment: [facility]# [id number] 3Result Comment: [05/25/2018] seq[facility] lot number [id number] exp 01/26/[address] [facility] [id number] 4Result Comment: [08/20/2017] [facility] [id number] 5Admin Note: VIM dated 01/29/12 GIVEN TODAY 6Result Comment: [facility]# [id number] 7Admin Note: VIM dated 08/22/11 GIVEN TODAY 8Result Comment: [facility]#[id number] Medications acetaminophen 500 mg oral capsule 2 [...] Refills, Soft Stop, :28:00 PM EDT, [facility] fill upon patient request if the [...] 4:46:00 PM EDT, Route to Pharmacy Electronically, [facility] [...] 1 Refills, Maintenance, 04/22/24 3:15:00 PM EDT, [facility]/pharmacy #2024, 30, APPLY TO AFFECTED AREA 4 TIMES A DAY. NOT COVERED, 157.5, cm, 02/12/24 14:48:00 EDT, Height, 145.9, kg, 05/22/23 7:39:00 EDT, Dry Weight Start Date: 04/22/24 Status: Ordered Quantity: 100.0 Unit: g Repeat number: 2 diclofenac 1% topical gel See Instructions, APPLY TO AFFECTED AREA 4 TIMES A DAY, # 100 Gm, 1 Refills, Maintenance, 11/07/23 7:48:00 AM EDT, [facility]/pharmacy #2024, 25, APPLY TO AFFECTED AREA 4 [...] Refills, Maintenance, 08/29/23 5:07:00 PM EST, [place], [facility]/pharmacy #2024, Partial fill upon [...] 0 Refills, Maintenance, 02/28/21 4:31:00 PM EDT, [place], [facility]/pharmacy #2025, Partial fill upon [...] 9:11:00 AM EDT, Route to Pharmacy Electronically, [facility] STORE 28006,157.5, cm, 01/22/24 10:31:00 EDT, Height, 145.9, kg, 05/22/23 7:39:00 EDT, Dry Weight Start Date: 01/25/24 Status: Ordered Quantity: 90.0 Unit: capsule Repeat number: 1 FLUoxetine 20 mg oral capsule See Instructions, TAKE 1 CAPSULE BY MOUTH EVERY DAY, # 90 capsule, Refills 1, Maintenance, 06/20/2411:48:00 AM EST, Instructions Replace Required Details, Route to Pharmacy Electronically, [facility] [id number], 157.5, cm, 06/16/24 14:53:00 EST, Height, 145.9, kg, 05/22/23 7:39:00 EDT, Dry Weight Start Date: 06/20/24 Status: Ordered Quantity: 90.0 Unit: capsule Repeat number: 1 gabapentin 300 mg oral capsule 600 mg, 2, capsule, By Mouth, 3 times a day, # 180 capsule, Refills 3, Tot. Refills 3, Maintenance,08/25/22 10:35:00 PM EST, Route to Pharmacy Electronically, [facility] [...] Maintenance, 12/28/23 4:17:00 PM EDT, [facility], 157.5, cm, 10/18/23 15:15:00 EDT, Height, 145.9, kg, 05/22/23 7:39:00 EDT, Dry Weight Start Date: 12/28/23 Status: Ordered Quantity: 90.0 Unit: tablet Repeat number: 1 levothyroxine 175 mcg (0.175 mg) oral tablet 1 tablet = 175 mcg, By Mouth, Daily, # 90 tablet, 2 Refills, Maintenance, 06/17/24 1:48:00 PM EST, Tablet, [facility]/pharmacy #2025, Partial [...] 1 Refills, Maintenance, 03/28/24 7:37:00 AM EDT, [facility]/pharmacy #2024, 157.5, cm, 02/12/24 14:48:00 EDT, Height, 145.9, kg, 05/22/23 7:39:00 EDT, Dry Weight Start Date: 03/28/24 Status: Ordered Quantity: 30.0 Unit: tablet Repeat number: 2 metFORMIN 500 mg oral tablet, extended release 1 tablet = 500 mg, By Mouth, Daily, # 90 tablet, 1 Refills, Maintenance, 01/22/24 11:02:00 AM EDT, ER Tablet, [facility]/pharmacy #2024, Partial fill upon [...] may filll this prescription for fewer pills[facility] # [facility], Refills 0, Tot. Refills 0, Maintenance, Pain , Severe, 05/28/24 4:27:00 PM EDT, Route to Pharmacy Electronically, [facility]/pharmacy #2024, Partial fill upon patient request, 157.5, [...] 30 tablet, 0 Refills, Maintenance, 06/10/24 2:39:00PM [facility], [facility]/pharmacy #2024, Partial fill upon [...] Code MRI Safety Implantable Status Assigning Authority [id number] [id number] Unknown [id number] Unknown 08/26/24 Unknown Unknown Active GS1 Patient Care team information Care Team Personnel Name: Celestina Trinidad MD Position: [facility] Physician - Primary Care Member Role: PCP Address: [address] [place] [id number] Telecom: Name: Hemalatha Lucas RN Position: [facility] RN Member Role: Primary Care Nurse Name: Lauren Mack RN Position: [facility] RN Member Role: Primary Care Nurse Name: Madelaine Ruiz RN Position: [facility] RN Member Role: Primary Care Nurse Name: Lora Santiago RN Position: [facility] SN RN Member Role: Primary Care Nurse Name: Mayco Ro RN Position: [facility] RN Member Role: Primary Care Nurse Name: Heydi Potts RN Position: [facility] SN RN Member Role: Primary Care Nurse Name: Janice Romano LPN Position: [facility] RN Member Role: Primary Care Nurse Name: Nadya Low RN Position: [facility] RN Member Role: Primary Care Nurse Name: Mirna Greenfield RN Position: [facility] RN Member Role: Primary Care Nurse Name: Nessa Bonilla RN Position: [facility] Basketball Assembler Member Role: Primary Care Nurse Care [...]
--- OUTSIDE RECORDS SUMMARY | 2024-06-24 14:23 | XMS_ITS | Continuity of Care Document ---
Author Organization [facility] Address [address] [place] [address]- Care Team Providers Care Bookie Name Role Phone Vivi HENNING, Celestina Givens Primary Care Physician [facility] Date[facility]): 07[facility]23 - 08/15/23 [facility] [address] [place], [place] [address] Allergies, Adverse Reactions, Alerts No [...] 08/21/22 Given tetanus/diphtheria/pertussis, acel(Tdap) 7 08/13/12 Given [id number]-VsW-[id number] 12y+ bivalent booster vax 06/14/22 Recorded SARS-CoV-2 mRNA (conuoar-bazt-jfqry) vax 02/14/22 Recorded SARS-CoV-2 (COVID-19) mRNA BNT-162b2 vac 05/06/21 Given SARS-CoV-2 (COVID-19) mRNA BNT-162b2 vac 11/04/20 Recorded SARS-CoV-2 (COVID-19) mRNA BNT-162b2 vac 10/14/20 Recorded pneumococcal 23-valent vaccine 8 04/07/19 Given 1Result Comment: screening negative 2Result Comment: [facility]# [id number] 3Result Comment: [05/25/2018] [employer] lot number [id number] exp 01/26/2019 [facility] [id number] 4Result Comment: [08/20/2017] [facility] [phone] 5Admin Note: VIM dated 01/29/12 GIVEN TODAY 6Result Comment: [facility]# [id number] 7Admin Note: VIM dated 08/22/11 GIVEN TODAY 8Result Comment: [facility]#[id number] Medications acetaminophen 500 mg oral capsule 2 [...] Gm, 0 Refills, Maintenance, 02/28/21 16:31:00 EDT, [place] Partial fill upon patient request [...] Maintenance,08/25/22 22:35:00 EST, Route to Pharmacy Electronically, [facility]/pharmacy #2024, Partial fill upon [...] tablet, 2 Refills, Maintenance, 02/27/23 7:25:00 EDT, [facility] STORE 13358, 157, cm, 12/08/22 14:27:00 EDT, Height, 145, kg, 08/29/22 20:13:00 EST, Dry... Start Date: 02/27/23 Status: Ordered levothyroxine 150 mcg (0.15 mg) oral tablet 1 tablet = 150 mcg, By Mouth, Daily, # 90 tablet, 0 Refills, Maintenance, 07/15/23 17:38:00 EST, Tablet, [facility]/pharmacy #2024, Partial fill upon [...] Refills, Maintenance, 07/28/23 10:21:00 EST, [facility], 157.5, cm, 07/13/23 9:57:00 EST, Height, 145.9, [...] tablet, 0 Refills, Maintenance, 08/05/23 12:22:00 EST, [facility]/pharmacy #5, 157.5, cm, 07/13/23 9:57:00 EST, [...] Code MRI Safety Implantable Status Assigning Authority [id number] Unknown [id number] Unknown 08/26/24 Unknown Unknown Active GS1 Patient Care team information Care Team Personnel Name: Celestina Trinidad MD Position: [facility] Physician - Primary Care Member Role: PCP Address: Address: [address] [place] [address]- Name: Hemalatha Lucas RN Position: [facility] RN Member Role: Primary Care Nurse Name: Lauren Mack RN Position: [facility] AMB Nurse Member Role: Primary Care Nurse Name: Madelaine Ruiz RN Position: [facility] RN Member Role: Primary Care Nurse Name: Lora Santiago RN Position: [facility] SN RN Member Role: Primary Care Nurse Name: Mayco Ro RN Position: [facility] RN Member Role: Primary Care Nurse Name: Heydi Potts RN Position: [facility] SN RN Member Role: Primary Care Nurse Name: Janice Romano LPN Position: [facility] RN Member Role: Primary Care Nurse Name: Nadya Low RN Position: [facility] RN Member Role: Primary Care Nurse Name: Mirna Greenfield RN Position: [facility] RN Member Role: Primary Care Nurse Name: Nessa Bonilla RN Position: [facility] Slip Seat Coverer Member Role: Primary Care Nurse Care Team Related Persons Name: DINESH SARGENT Address: home [address] [address] Name: BON DE Address: home [address] [address]
--- OUTSIDE RECORDS SUMMARY | 2024-06-24 14:23 | XMS_ITS | Continuity of Care Document ---
Author Organization [facility] Address [address] [place] [address]- Care Team Providers Care Managing Consultant Name Role Phone Vivi HENNING, Celestina Givens Primary Care Physician [facility] Date[facility]): 10/23/22 - 11/22/22 [facility] [address] [place] [address]- Allergies, Adverse Reactions, Alerts No Known Allergies Immunizations Given and Recorded Vaccine Date Status Refusal Reason tetanus/diphtheria/pertussis, acel(Tdap) 1 08/21/22 Given tetanus/diphtheria/pertussis, acel(Tdap) 2 08/13/12 Given [id number] 12y+ bivalent booster vax 06/14/22 Recorded influenza [...] inactivated 6 07/31/12 Gi hali SARS-CoV-2 mRNA (pzgarfc-zzcc-eqszs) vax 02/14/22 Recorded SARS-CoV-2 (COVID-19) mRNA BNT-162b2 vac 05/06/21 Given SARS-CoV-2 (COVID-19) mRNA BNT-162b2 vac 11/04/20 Recorded SARS-CoV-2 (COVID-19) mRNA BNT-162b2 vac 10/14/20 Recorded pneumococcal 23-valent vaccine 7 04/07/19 Given 1Result Comment: [facility]# [id number] 2Admin Note: VIM dated 08/22/11 GIVEN TODAY 3Result Comment: [facility]# [id number] 4Result Comment: [05/25/2018] [employer] lot number [id number] exp 01/26/2019 [facility] 26602-101-67 5Result Comment: [08/20/2017] [facility] [id number] 6Admin Note: VIM dated 01/29/12 GIVEN TODAY 7Result Comment: [facility]#[id number] Medications acetaminophen 500 mg oral capsule 2 [...] Stop, 04/10/2215:14:00 EDT, Route to Pharmacy Electronically, [id number], [facility]/pharmacy #2025, 158, cm, 04/10/22 14:56:00 EDT, Height, 143,... Start Date: 04/10/22 Status: Ordered amLODIPine 10 mg oral tablet 1 tablet, By Mouth, Daily, # 90 tablet, 0 Refills, Maintenance, 10/23/22 12:47:00 EDT, [facility] STORE 44213, 157, cm, 09/13/22 15:58:00 EST, Height, 145, kg, 08/29/22 20:13:00 EST, Dry Weight Start Date: 10/23/22 Status: Ordered budesonide-formoterol 80 mcg-4.5 mcg/inh inhalation aerosol with adapter 2, puffs, Inhalation, 2 times a day, PRN, use with spacer chamber, rinse mouth and throat after use, # 10.2 Gm, Refills 5, Tot. Refills 5, Maintenance, 09/12/22 11:06:00 EST, Aerosol, Route to Pharmacy Electronically, [id number]... Start Date: 09/12/22 Status: Ordered Compression Stockings [...] Gm, 1 Refills, 09/22/22 7:28:00 EST, [facility]/pharmacy [...] Gm, 0 Refills, Maintenance, 02/28/21 16:31:00 EDT, [place], [facility], Partial fill upon patient request if the prescription is for... Start Date: 02/28/21 Status: Ordered FLUoxetine 20 mg oral capsule 1, capsule, By Mouth, Daily, # 90 capsule, Refills 1, Maintenance, 10/23/22 12:47:00 EDT, Route to [facility] Electronically, [facility], 157, cm, 09/13/22 15:58:00 EST, Height, 145, kg, 08/29/22 20:13:00 EST, Dry Weight Start Date: 10/23/22 Status: Ordered furosemide 20 mg oral tablet 1, tablet, By Mouth, Daily, MAY REPEAT IF NEEDED IN 2 HOURS, # 30 tablet, Refills 0, Maintenance, 11/21/22 14:18:00 EDT, Route to [facility] Electronically, [facility], 157, cm, 10/30/22 13:53:00 EDT, Height, 145, [...] Refills, Maintenance, 10/18/22 21:31:00 EDT, [facility], 157, cm, 09/13/22 15:58:00 EST,Height, 145, kg, [...] 16:29:00 EST, [facility] [...] Name: Celestina Trinidad MD Position: [facility] Primary Care Physician Member Role: PCP Address: Address: [address] [place] [id number] Name: Hemalatha Lucas RN Position: [facility] RN Member Role: Primary Care Nurse Name: Lauren Mack RN Position: [facility] AMB Nurse Member Role: Primary Care Nurse Name: Madelaine Ruiz RN Position: [facility] RN Member Role: Primary Care Nurse Name: Lora Santiago RN Position: [facility] SN RN Member Role: Primary Care Nurse Name: Mayco Ro RN Position: [facility] RN Member Role: Primary Care Nurse Name: Heydi Potts RN Position: [facility] RN Member Role: Primary Care Nurse Name: Janice Romano LPN Position: [facility] RN Member Role: Primary Care Nurse Name: Nadya Low RN Position: [facility] RN Member Role: Primary Care Nurse Name: Mirna Greenfield RN Position: [facility] RN Member Role: Primary Care Nurse Name: Nessa Bonilla RN Position: [facility] Hospital Php Consultant Member Role: Primary Care Nurse Care Team Related Persons Name: DINESH SARGENT Address: home [address] [place] [address] Name: BON DE Address: home [address] [address]
--- OUTSIDE RECORDS SUMMARY | 2024-06-24 14:23 | XMS_ITS | Continuity of Care Document ---
Author Organization [facility] Address [address] [place] [address]- Care Team Providers Care Spikemaking Supervisor Name Role Phone Vivi HENNING, Celestina Givens Primary Care Physician Encounter [facility] Date(s): 05/22/22 - 06/21/22 [facility] [address] [place] [address]- Allergies, Adverse Reactions, Alerts No Known Allergies [...] [facility]# [id number] 2Result Comment: [05/25/2018] [facility] lot number [id number] exp 01/26/2019 [facility] [id number] 3Result Comment: [08/20/2017] [facility] [id number] 4Admin Note: VIM dated 01/29/12 GIVEN TODAY 5Result Comment: [facility]#[id number] 6Admin Note: VIM dated 08/22/11 GIVEN TODAY [...] Stop, 04/10/2215:14:00 EDT, Route to Pharmacy Electronically, [id number], [facility]/pharmacy #2025, 158, cm, 04/10/22 14:56:00 EDT, Height, 143,... Start Date: 04/10/22 Status: Ordered Anoro Ellipta 62.5 mcg-25 mcg/inh inhalation powder 1 puffs, By Mouth, Daily, # 1 each, 6 Refills, Maintenance, 05/11/22 13:00:00 EDT, [place], [facility], Partial fill upon patient request [...] 100 Gm, 1 Refills, 09/19/21 12:51:00 EST, [facility]/pharmacy #2025, 25, APPLY TOPICALLY 4 TIMES A DAY, 160.02, cm, 07/25/21 16:20:00 EST, Height, 143, kg,01/04/21 10:42:00 EDT, Dry Weight Start Date: 09/19/21 Status: Ordered Flonase 50 mcg/inh nasal spray See Instructions, 2 sprays Nares twice daily x 1 week, then once daily x 1-2 weeks until symptoms improve, # 16 Gm, 0 Refills, Maintenance, 02/28/21 16:31:00 EDT, [place], [facility]/pharmacy #202, Partial fill upon patient request if the prescription is for... Start Date: 02/28/21 Status: Ordered FLUoxetine 20 mg oral capsule See Instructions, TAKE 1 CAPSULE BY MOUTH EVERY DAY, # 90 capsule, Refills 1, Maintenance, 06/13/2215:26:00 EST, Instructions Replace Required Details, Route to Pharmacy Electronically, [facility], 158, cm, 06/09/22 11:21:00 EST, Height, 143, kg... Start Date: 06/13/22 Status: Ordered levothyroxine 0.137 mg oral tablet See Instructions, TAKE 1 TABLET BY MOUTH ON DAYS 1-6, THEN TAKE 2 TABLETS BY MOUTH ON DAY 7, # 96 tablet, 1 Refills, [facility], 160.02, cm, 10/04/21 10:38:00 EST, Height, 143, kg, 01/04/21 10:42:00 EDT, Dry Weight Start Date: 11/08/21 Status: Ordered meclizine 25 mg oral tablet See Instructions, PRN Dizziness, 1 tablet By Mouth 3 times a day, # 30 tablet, 0 Refills, Maintenance, 05/11/21 13:11:00 EDT, [facility]/pharmacy #2025, Partial fill upon patient request if the prescriptionis for a schedule II opioid drug., 160.02, cm, 10/0... Start Date: 05/11/21 Status: Ordered meloxicam 15 mg oral tablet See Instructions, TAKE 1 TABLET BY MOUTH DAILY WITH FOOD. LABS NEEDED FOR FURTHER REFILLS, # 30 tablet, 3 Refills, Maintenance, 06/08/22 14:55:00 EST[facility], cm, 06/08/22 14:23:00 EST, Height, [...] tablet, 0 Refills, Maintenance, 06/14/22 15:39:00 EST, [facility]/pharmacy #2024, 158, cm, 06/09/22 11:21:00 EST, Height,143, kg, 01/04/21 10:42:00 EDT, Dry Weight Start Date: 06/14/22 Status: Ordered zolpidem 10 mg oral tablet 1 tablet = 10 mg, By Mouth, Daily at bedtime, PRN for sleep, for 30 days, masspat check may fill less, # 30 tablet, 2 Refills, Acute 07/19/22 9:22:00 EST, 04/20/22 9:22:00 EDT, Tablet, [facility], 158, cm, 04/10/22 14:56:00 EDT, Height, 143, kg... Start Date: 04/20/22 Stop Date: 07/19/22 Status: Ordered zolpidem 10 mg oral tablet 1 tablet = 10 mg, By Mouth, Daily at bedtime, PRN for sleep, for 30 days, masspat check may fill less, # 30 tablet, 3 Refills, Acute 07/19/22 13:40:00 EST, 03/21/22 13:40:00 EDT, Tablet, [facility]/pharmacy#2024, 158, cm, 03/02/22 11:38:00 EDT, Height, 143... [...] Name: Celestina Trinidad MD Position: [facility] Primary Care Physician Member Role: PCP Address: Address: [address] [place] [id number] Name: Lauren Mack RN Position: [facility] Nurse Member Role: Primary Care Nurse Name: [...] Bonilla RN Position: [facility] Member Role: Primary Care Nurse Care Team Related Persons Name: DINESH SARGENT Address: home [address] [place] [address] Name: BON DE Address: home [address] [address]
--- OUTSIDE RECORDS SUMMARY | 2024-06-24 14:23 | XMS_ITS | Continuity of Care Document ---
Author Organization [facility] Address [address] [place] [address]- Care Team Providers Care Senior Underwriter Name Role Phone Vivi HENNING, Celestina Givens Primary Care Physician Encounter [facility] Date(s): 01/08/24 - 02/07/24 [facility] [address] [place] [address]- Allergies, Adverse Reactions, Alerts No Known Allergies [...] 08/21/22 Given tetanus/diphtheria/pertussis, acel(Tdap) 7 08/13/12 Given DEPV-TkN-3lJZZ 12y+ bivalent booster vax 06/14/22 Recorded SARS-CoV-2 mRNA (efmwide-xtvr-uogyc) vax 02/14/22 Recorded SARS-CoV-2 (COVID-19) mRNA BNT-162b2 vac 05/06/21 Given SARS-CoV-2 (COVID-19) mRNA BNT-162b2 vac 11/04/20 Recorded SARS-CoV-2 (COVID-19) mRNA BNT-162b2 vac 10/14/20 Recorded pneumococcal 23-valent vaccine 8 04/07/19 Given 1Result Comment: screening negative 2Result Comment: [facility]# [id number] 3Result Comment: [05/25/2018] [facility] lot number [id number] exp 01/26/2019 [facility] [id number] 4Result Comment: [08/20/2017] [facility] [id number] 5Admin Note: VIM dated 01/29/12 GIVEN TODAY 6Result Comment: [facility]# [id number] 7Admin Note: VIM dated 08/22/11 GIVEN TODAY 8Result Comment: [facility]#[id number] Medications acetaminophen 500 mg oral capsule 2 [...] Refills, Maintenance, 02/01/24 13:44:00 EDT, [facility], 30, APPLY TO AFFECTED AREA 4 TIMES [...] Gm, 0 Refills, Maintenance, 02/28/21 16:31:00 EDT, [place], [facility]/pharmacy #2025, Partial fill upon patient request if the prescription is for... Start Date: 02/28/21 Status: Ordered FLUoxetine 10 mg oral capsule 1, capsule, By Mouth, Daily, INSTR:TO BE TAKEN WITH 20MG CAPSULES TO EQUAL 30MG DAILY, # 90 capsule, Refills 1, Maintenance, 01/25/24 9:11:00 EDT, Route to Pharmacy Electronically, [facility], 157.5, cm, 01/22/24 10:31:00 EDT, Height, 145.9, [...] Refills, Maintenance, 12/28/23 16:17:00 EDT, [facility], 157.5, cm, 10/18/23 15:15:00 EDT, Height, 145.9, [...] 01/22/24 11:02:00 EDT, ER Tablet, [facility]/pharmacy [...] 02/19/24 11:11:00 EDT, 01/22/24 11:08:00 EDT, Tablet, [facility]/pharmacy #2025, Partial fill uponpatient request if the [...] tablet, 0 Refills, Maintenance, 02/05/24 8:12:00EDT, [facility], Partial fill upon patient request [...] Code MRI Safety Implantable Status Assigning Authority [id number] Unknown [id number] Unknown 08/26/24 Unknown Unknown Active GS1 Patient Care team information Care Team Personnel Name: Celestina Trinidad MD Position: [facility] Physician - Primary Care Member Role: PCP Address: Address: [address] [place] [address] Name: Hemalatha Lucas RN [facility] Care Nurse Name: Nessa Bonilla RN Position: [facility] Hospital Registration Scheduling Specialist Member Role: Primary Care Nurse Care Team Related Persons Name: ROSETTADINESH Address: home [address] [place] [address] Name: BON DE Address: [address] [address]
--- OUTSIDE RECORDS SUMMARY | 2024-06-24 14:23 | XMS_ITS | Continuity of Care Document ---
Author Organization [facility] Address [address] [place] [address]- Care Team Providers Care Look Out Tower Fire Watcher Name Role Phone Yolanda AHN, Padmaja Pelayo Primary Care Physician [phone] [facility]counter [facility] Date(s): 09/20/21 - 10/20/21 [facility] [address] [place] [address]- Allergies, Adverse Reactions, Alerts No Known Allergies [...] tetanus/diphtheria/pertussis, acel(Tdap) 6 08/13/12 Given 1Result Comment: [facility]# [id number] 2Result Comment: [05/25/2018] [facility] lot number [id number] exp 01/26/2019 [facility] [id number] 3Result Comment: [08/20/2017] [facility] [id number] 4Admin Note: VIM dated 01/29/12 GIVEN TODAY 5Result Comment: [facility]NOTE 3[facility]#[id number] 6Admin Note: VIM dated 08/22/11 GIVEN TODAY [...] Replace Required Details, Route to Pharmacy Electronically, [id number]... Start Date: 09/15/21 Status: Ordered Aerochamber w/Mask [...] 07/25/21 16:53:00 EST, Route to Pharmacy Electronically, [id number], [facility]/pharmacy #2025, 160.02, cm, 07/25/21 [...] Gm, 0 Refills, Maintenance, 02/28/21 16:31:00 EDT, [place], [facility]/pharmacy #2024, Partial fill upon patient request if the prescription is for... Start Date: 02/28/21 Status: Ordered FLUoxetine 10 mg oral capsule 10 mg, 1, capsule, By Mouth, Daily, Take with 20mg capsule for total of 30mg daily, # 90 capsule, Refills 1, Tot. Refills 1, Maintenance, 09/19/21 12:45:00 EST, Route to Pharmacy Electronically, [facility]/pharmacy #2024, Partial fill upon patient request if... Start Date: 09/19/21 Status: Ordered FLUoxetine 20 mg oral capsule 20 mg, 1, capsule, By Mouth, Daily, Take with Fluoxetine 10mg for a total of 30mg, # 90 capsule, Refills 1, Tot. Refills 1, Maintenance, 05/04/21 16:44:00 EDT, Route to Pharmacy Electronically, [facility]/pharmacy #202, replacing 10mg dose, 160.02, cm, 08/0... Start Date: 05/04/21 Status: Ordered levothyroxine 0.137 mg oral tablet See Instructions, Take 1 tablet by mouth on days 1-6, then take 2 tablets by mouth on day 7, # 121 tablet, 5 Refills, Maintenance, 12/07/20 9:46:00 EDT, [facility]/pharmacy #2024, 160.02, cm, 10/19/20 [...] 30 tablet, 3 Refills, 09/19/21 12:46:00 EST, [facility]/pharmacy #5, 160.02, cm, 07/25/21 [...] 13:47:00 EST, Aerosol, Route to Pharmacy Electronically, [id number], [facility]/pharmacy #2024, 160.02, cm, 07/25/21 16:20:00 EST, [place]... Start Date: 10/03/21 Status: Ordered traMADol 50 mg oral tablet 2 tablet = 100 mg, By Mouth, Every 12 hours, as needed for pain masspat checked, # 112 tablet, 0 Refills, Maintenance, 09/20/21 10:55:00 EST, [facility]/pharmacy #5, 160.02, cm, 07/25/21 [...] 01/20/22 10:19:00 EDT, 09/22/21 10:19:00 EST, Tablet, [facility]/pharmacy#5, 160.02, cm, 07/25/21 16:20:00 EST, Height,... [...]
--- OUTSIDE RECORDS SUMMARY | 2024-06-24 14:23 | XMS_ITS | Continuity of Care Document ---
Author Organization [facility] Address [address] [place] [address]- Care Team Providers Care Outside Sales Representative Insurance Name Role Phone Vivi HENNING, Celestina Givens Primary Care Physician [place] [facility] 05/29/24 [facility] [address] [place] [address]- Allergies, Adverse Reactions, Alerts No Known Allergies [...] 08/21/22 Given tetanus/diphtheria/pertussis, acel(Tdap) 7 08/13/12 Given [id number]-DmH-1bSNB 12y+ bivalent booster vax 06/14/22 Recorded SARS-CoV-2 mRNA (epkytuz-crme-sdvns) vax 02/14/22 Recorded SARS-CoV-2 (COVID-19) mRNA BNT-162b2 vac 05/06/21 Given SARS-CoV-2 (COVID-19) mRNA BNT-162b2 vac 11/04/20 Recorded SARS-CoV-2 (COVID-19) mRNA BNT-162b2 vac 10/14/20 Recorded pneumococcal 23-valent vaccine 8 04/07/19 Given 1Result Comment: screening negative 2Result Comment: [facility]# [id number] 3Result Comment: [05/25/2018] seq[employer] lot number [id number] exp 01/26/2019 [facility] [id number] 4Result Comment: [08/20/2017] [facility] [id number] 5Admin Note: VIM dated 01/29/12 GIVEN TODAY 6Result Comment: [facility]# [id number] 7Admin Note: VIM dated 08/22/11 GIVEN TODAY 8Result Comment: [facility]#[id number] Medications acetaminophen 500 mg oral capsule 2 [...] 1 Refills, Soft Stop, 12/06/23 17:28:00 EDT, [facility]/pharmacy #5, Partial fill upon patient [...] 05/17/24 16:46:00 EDT, Route to Pharmacy Electronically, [facility]/pharmacy #2024, Partial fill upon patient request if the prescription is for a... Start Date: 05/17/24 Status: Ordered diclofenac 1% topical gel See Instructions, APPLY TO AFFECTED AREA 4 TIMES A DAY. NOT COVERED, # 100 Gm, 1 Refills, Maintenance, 04/22/24 15:15:00 EDT, [facility]/pharmacy #2024, 30, APPLY TO AFFECTED AREA 4 TIMES A DAY. NOT COVERED, 157.5, cm, 02/12/24 14:48:00 EDT, Height, 145.9, k... Start Date: 04/22/24 Status: Ordered diclofenac 1% topical gel See Instructions, APPLY TO AFFECTED AREA 4 TIMES A DAY, # 100 Gm, 1 Refills, Maintenance, 11/07/23 7:48:00 EDT, [facility]/pharmacy #2024, 25, APPLY TO AFFECTED [...] Gm, 0 Refills, Maintenance, 02/28/21 16:31:00 EDT, [place], [facility]/pharmacy #2025, Partial fill upon patient request if the prescription is for... Start Date: 02/28/21 Status: Ordered FLUoxetine 10 mg oral capsule 1, capsule, By Mouth, Daily, INSTR:TO BE TAKEN WITH 20MG CAPSULES TO EQUAL 30MG DAILY, # 90 capsule, Refills 1, Maintenance, 01/25/24 9:11:00 EDT, Route to Pharmacy Electronically, [facility], 157.5, cm, 01/22/24 10:31:00 EDT, Height, 145.9, [...] tablet, 1 Refills, Maintenance, 12/28/23 16:17:00 EDT, [facility], 157.5, cm, 10/18/23 15:15:00 EDT, Height, 145.9, [...] Code MRI Safety Implantable Status Assigning Authority [id number] Unknown [id number] Unknown 08/26/24 Unknown Unknown Active GS1 Patient Care team information Care Team Personnel Name: Celestina Trinidad MD Position: [facility] Physician - Primary Care Member Role: PCP Address: Address: [address] [place] [address] Name: Hemalatha Lucas RN Position: [facility] RN Member Role: Primary Care Nurse Name: Lauren Mack RN Position: [facility] RN Member Role: Primary Care Nurse Name: Madelaine Ruiz RN Position: [facility] RN Member Role: Primary Care Nurse Name: Lora Santiago RN Position: [facility] SN RN Member Role: Primary Care Nurse Name: Mayco Ro RN Position: [facility] RN Member Role: Primary Care Nurse Name: Heydi Potts RN Position: [facility] SN RN Member Role: Primary Care Nurse Name: Janice Romano LPN Position: [facility] RN Member Role: Primary Care Nurse Name: Nadya Low RN Position: [facility] RN Member Role: Primary Care Nurse Name: Mirna Greenfield RN Position: [facility] RN Member Role: Primary Care Nurse Name: Nessa Bonilla RN Position: [facility] Counselor Member Role: Primary Care Nurse Care Team Related Persons Name: ROSETTA, DINESH Address: [address] [place] [address] Name: BON DE Address: home [address] [address]
--- OUTSIDE RECORDS SUMMARY | 2024-06-24 14:23 | XMS_ITS | Continuity of Care Document ---
Author Organization [facility] Address [address] [place] [address]- Care Team Providers Care Transportation Maintenance Supervisor Name Role Phone Vivi HENNING, Celestina Givens Primary Care Physician [place] [facility] [place]20/23 - 03/22/23 [facility] [address] [place] [address]- Allergies, Adverse Reactions, Alerts No Known Allergies Immunizations Given and Recorded Vaccine Date Status Refusal Reason tetanus/diphtheria/pertussis, acel(Tdap) 1 08/21/22 Given tetanus/diphtheria/pertussis, acel(Tdap) 2 08/13/12 Given [id number] 12y+ bivalent booster vax 06/14/22 Recorded influenza [...] inactivated 6 07/31/12 Gi hali SARS-CoV-2 mRNA (ezcbqxr-lwvd-wdkec) vax 02/14/22 Recorded SARS-CoV-2 (COVID-19) mRNA BNT-162b2 vac 05/06/21 Given SARS-CoV-2 (COVID-19) mRNA BNT-162b2 vac 11/04/20 Recorded SARS-CoV-2 (COVID-19) mRNA BNT-162b2 vac 10/14/20 Recorded pneumococcal 23-valent vaccine 7 04/07/19 Given 1Result Comment: [facility]# [id number] 2Admin Note: VIM dated 08/22/11 GIVEN TODAY 3Result Comment: [facility]# [id number] 4Result Comment: [05/25/2018] [employer] lot number [id number] exp 01/26/2019 [facility] [id number] 5Result Comment: [08/20/2017] [facility] [id number] 6Admin Note: VIM dated 01/29/12 GIVEN TODAY 7Result Comment: [facility]#[id number] Medications acetaminophen 500 mg oral capsule 2 [...] Stop, 04/10/2215:14:00 EDT, Route to Pharmacy Electronically, [id number], [facility]/pharmacy #2025, 158, cm, [...] 1 Refills, Maintenance, 01/08/23 9:36:00EDT, [facility], 50, APPLY TOPICALLY 4 TIMES A DAY, [...] Gm, 0 Refills, Maintenance, 02/28/21 16:31:00 EDT, [place], [facility]/pharmacy #2024, Partial fill upon patient request if the prescription is for... Start Date: 02/28/21 Status: Ordered FLUoxetine 10 mg oral capsule 10 mg, 1, capsule, By Mouth, Daily, to be taken with 20mg capsules to equal 30mg daily, # 90 capsule, Refills 0, Tot. Refills 0, Maintenance, 01/18/23 9:13:00 EDT, Route to Pharmacy Electronically, [facility]/pharmacy #4981, Partial fill upon patient request... Start Date: [...] Pharmacy Electronically, [facility]/pharmacy #2025, Partial fill [...] tablet, 2 Refills, Maintenance, 02/27/23 7:25:00 EDT, [facility], 157, cm, 12/08/22 14:27:00 EDT, Height, 145, kg, 08/29/22 20:13:00 EST, Dry... Start Date: 02/27/23 Status: Ordered meclizine 25 mg oral tablet See Instructions, PRN Dizziness, 1 tablet By Mouth 3 times a day, # 30 tablet, 0 Refills, Maintenance, 02/27/23 10:43:00 EDT, [facility]/pharmacy #2025, Partial fill upon patient request if the prescriptionis for a schedule II opioid drug., 157, cm, ... Start Date: 02/27/23 Status: Ordered meloxicam 15 mg oral tablet See Instructions, TAKE 1 TABLET BY MOUTH DAILY WITH FOOD. LABS NEEDED FOR FURTHER REFILLS, # 30 tablet, 1 Refills, Maintenance, 03/05/23 9:28:00 EDT, [facility], 157, cm, 12/08/22 14:27:00 EDT, Height, 145, [...] Care Member Role: PCP Address: Address: [address] [place] [address] Name: Hemalatha Lucas RN Position: [facility] RN Member Role: Primary Care Nurse Name: Lauren Mack RN Position: [facility] Nurse Member Role: Primary Care [...] Care Nurse Name: Nessa Bonilla RN Position: [facility] Hospital General Distillery Worker Member Role: Primary Care Nurse Care Team Related Persons Name: ROLA SARGENTELLE Address: home [address] [place] [address] Name: BON DE Address: home [address] [address]
--- OUTSIDE RECORDS SUMMARY | 2024-06-24 14:23 | XMS_ITS | Continuity of Care Document ---
Author Organization [facility] Address [address] [place] [address]- Care Team Providers Care Senior Reservations Agent Name Role Phone Vivi HENNING, Celestina Givens Primary Care Physician En[place] [facility] [place] 12/10/23 - 01/09/24 [facility] [address] [place] [address]- Allergies, Adverse Reactions, Alerts No Known Allergies [...] 08/21/22 Given tetanus/diphtheria/pertussis, acel(Tdap) 7 08/13/12 Given [id number] 12y+ bivalent booster vax 06/14/22 Recorded SARS-CoV-2 mRNA (xypwlow-btqx-igsri) vax 02/14/22 Recorded SARS-CoV-2 (COVID-19) mRNA BNT-162b2 vac 05/06/21 Given SARS-CoV-2 (COVID-19) mRNA BNT-162b2 vac 11/04/20 Recorded SARS-CoV-2 (COVID-19) mRNA BNT-162b2 vac 10/14/20 Recorded pneumococcal 23-valent vaccine 8 04/07/19 Given 1Result Comment: screening negative 2Result Comment: [facility]# [id number] 3Result Comment: [05/25/2018] seq[employer] lot number [id number] exp 01/26/2019 [facility] 40288-382-25 4Result Comment: [08/20/2017] [facility] [id number] 5Admin Note: VIM dated 01/29/12 GIVEN TODAY 6Result Comment: [facility]# [id number] 7Admin Note: VIM dated 08/22/11 GIVEN TODAY 8Result Comment: [facility]#[id number] Medications acetaminophen 500 mg oral capsule 2 [...] 1 Refills, Soft Stop, 12/06/23 17:28:00 EDT, [facility]/pharmacy #5, Partial fill upon patient [...] 05/17/23 16:45:00 EDT, Route to Pharmacy Electronically, [facility]/pharmacy #2024, Partial fill upon patient request if the presc... Start Date: 05/17/23 Stop Date: 05/17/24 Status: Ordered diclofenac 1% topical gel See Instructions, APPLY TO AFFECTED AREA 4 TIMES A DAY, # 100 Gm, 1 Refills, Maintenance, 11/07/23 7:48:00 EDT, [facility]/pharmacy #2024, 25, APPLY TO AFFECTED [...] Gm, 0 Refills, Maintenance, 02/28/21 16:31:00 EDT, [place], [facility]/pharmacy #2024, Partial fill upon patient request if the prescription is for... Start Date: 02/28/21 Status: Ordered FLUoxetine 10 mg oral capsule 10 mg, 1, capsule, By Mouth, Daily, to be taken with 20mg capsules to equal 30mg daily, # 90 capsule, Refills 1, Tot. Refills 1, Maintenance, 07/31/23 19:01:00 EST, Route to Pharmacy Electronically, [facility]/pharmacy #2024, Partial fill upon patient reques... Start Date: 07/31/23 Status: Ordered FLUoxetine 20 mg oral capsule 1, capsule, By Mouth, Daily, # 90 capsule, Refills 1, Tot. Refills 1, Maintenance, 07/31/23 19:01:00 EST, Route to Pharmacy Electronically, [facility]/pharmacy #2024, 157.5, cm, 07/13/23 9:57:00 EST, Height, 145.9, kg, 05/22/23 7:39:00 EDT, Dry Weight Start Date: 07/31/23 Status: Ordered gabapentin 300 mg oral capsule 600 mg, 2, capsule, By Mouth, 3 times a day, # 180 capsule, Refills 3, Tot. Refills 3, Maintenance,08/25/22 22:35:00 EST, Route to Pharmacy Electronically, [facility]/pharmacy #2024, Partial fill upon patient [...] tablet, 1 Refills, Maintenance, 12/28/23 16:17:00 EDT, [facility], 157.5, cm, 10/18/23 15:15:00 EDT, Height, 145.9, kg, 05/22/23 7:39:00 EDT, Dry Weight Start Date: 12/28/23 Status: Ordered meclizine 25 mg oral tablet See Instructions, PRN Dizziness, 1 tablet By Mouth 3 times a day, # 30 tablet, 0 Refills, Maintenance, 02/27/23 10:43:00 EDT, [facility]/pharmacy #2025, Partial fill upon patient [...] Refills, Maintenance, 10/24/23 11:39:00 EDT, ER Tablet, [facility]/pharmacy #2025, Partial fill upon patient [...] Code MRI Safety Implantable Status Assigning Authority [id number] [id number] Unknown [id number] Unknown 08/26/24 Unknown Unknown Active GS1 Patient Care team information Care Team Personnel Name: Celestina Trinidad MD Position: [facility] Physician - Primary Care Member Role: PCP Address: Address: [address] [place] [address] Name: Hemalatha Lucas RN Position: [facility] RN Member Role: Primary Care Nurse Name: Lauren Mack RN Position: [facility] AMB Nurse Member Role: Primary Care Nurse Name: Madelaine Ruiz RN Position: [facility] RN Member Role: Primary Care Nurse Name: Lora Santiago RN Position: [facility] SN RN Member Role: Primary Care Nurse Name: Mayco Ro RN Position: [facility] RN Member Role: Primary Care Nurse Name: Heydi Potts RN Position: [facility] SN RN Member Role: Primary Care Nurse Name: Janice Romano LPN Position: [facility] RN Member Role: Primary Care Nurse Name: Nadya Low RN Position: [facility] RN Member Role: Primary Care Nurse Name: Mirna Greenfield RN Position: [facility] RN Member Role: Primary Care Nurse Name: Nessa Bonilla RN Position: [facility] Filling Separator Member Role: Primary Care Nurse Care Team Related Persons Name: DINESH SARGENT Address: home [address] [place] [address] Name: BON DE Address: home [address] [address]
--- OUTSIDE RECORDS SUMMARY | 2024-06-24 14:23 | XMS_ITS | Continuity of Care Document ---
Author Organization [facility] Address [address] [place] [address]- Care Team Providers Care Tester Food Products Name Role Phone Vivi HENNING, Celestina Givens Primary Care Physician Encounter [facility] Date(s): 05/01/23 - 05/31/23 [facility] [address] [place] [address]- Allergies, Adverse Reactions, Alerts No Known Allergies Immunizations Given and Recorded Vaccine Date Status Refusal Reason tetanus/diphtheria/pertussis, acel(Tdap) 1 08/21/22 Given tetanus/diphtheria/pertussis, acel(Tdap) 2 08/13/12 Given [id number]-[id number]-[id number] 12y+ bivalent booster vax 06/14/22 Recorded influenza [...] inactivated 6 07/31/12 Gi hali SARS-CoV-2 mRNA (kfuzurr-dfcv-kzahn) vax 02/14/22 Recorded SARS-CoV-2 (COVID-19) mRNA BNT-162b2 vac 05/06/21 Given SARS-CoV-2 (COVID-19) mRNA BNT-162b2 vac 11/04/20 Recorded SARS-CoV-2 (COVID-19) mRNA BNT-162b2 vac 10/14/20 Recorded pneumococcal 23-valent vaccine 7 04/07/19 Given 1Result Comment: [facility]# [id number] 2Admin Note: VIM dated 08/22/11 GIVEN TODAY 3Result Comment: [facility]# [id number] 4Result Comment: [05/25/2018] [facility] lot number [id number] exp 01/26/2019 [facility] [id number] 5Result Comment: [08/20/2017] [facility] [id number] 6Admin Note: VIM dated 01/29/12 GIVEN TODAY 7Result Comment: [facility]#[id number] Medications acetaminophen 500 mg oral capsule 2 [...] Stop, 04/10/2215:14:00 EDT, Route to Pharmacy Electronically, [id number], [facility]/pharmacy #2025, 158, cm, 04/10/22 14:56:00 EDT, Height, [...] 16:45:00 EDT, Route to Pharmacy Electronically, [facility]/pharmacy #2024, Partial fill upon patient request if the presc... Start Date: 05/17/23 Stop Date: 05/17/24 Status: Ordered diclofenac 1% topical gel See Instructions, APPLY TOPICALLY 4 TIMES A DAY, # 100 Gm, 1 Refills, Maintenance, 01/08/23 9:36:00EDT, [facility], 50, APPLY TOPICALLY 4 TIMES A DAY, [...] Gm, 0 Refills, Maintenance, 02/28/21 16:31:00 EDT, [place], [facility]/pharmacy #5, Partial fill upon patient request if the prescription is for... Start Date: 02/28/21 Status: Ordered FLUoxetine 10 mg oral capsule 10 mg, 1, capsule, By Mouth, Daily, to be taken with 20mg capsules to equal 30mg daily, # 90 capsule, Refills 1, Tot. Refills 1, Maintenance, 04/03/23 11:25:00 EDT, Route to Pharmacy Electronically, [facility]/pharmacy #2024, Partial fill upon patient reques... Start Date: 04/03/23 Status: Ordered FLUoxetine 20 mg oral capsule 1, capsule, By Mouth, Daily, # 90 capsule, Refills 1, Tot. Refills 1, Maintenance, 04/03/23 11:23:00 EDT, Route to Pharmacy Electronically, [facility]/pharmacy #2024, 157, cm, 03/14/23 11:02:00 EDT, Height,145, kg, 08/29/22 20:13:00 EST, Dry Weight Start Date: 04/03/23 Status: Ordered gabapentin 300 mg oral capsule 600 mg, 2, capsule, By Mouth, 3 times a day, # 180 capsule, Refills 3, Tot. Refills 3, Maintenance,08/25/22 22:35:00 EST, Route to Pharmacy Electronically, [facility]/pharmacy #202, Partial fill upon patient request if [...] 2 Refills, Maintenance, 02/27/23 7:25:00 EDT, [facility], 157, cm, 12/08/22 14:27:00 EDT, Height, 145, kg, 08/29/22 20:13:00 EST, Dry... Start Date: 02/27/23 Status: Ordered meclizine 25 mg oral tablet See Instructions, PRN Dizziness, 1 tablet By Mouth 3 times a day, # 30 tablet, 0 Refills, Maintenance, 02/27/23 10:43:00 EDT, [facility]/pharmacy #2024, Partial fill upon patient request if the prescriptionis for a schedule II opioid drug., 157, cm, ... Start Date: 02/27/23 Status: Ordered meloxicam 15 mg oral tablet See Instructions, TAKE 1 TABLET BY MOUTH DAILY WITH FOOD. LABS NEEDED FOR FURTHER REFILLS, # 30 tablet, 1 Refills, Maintenance, 05/01/23 14:45:00 EDT, [facility]/pharmacy #2024, 157, cm, 03/14/23 11:02:00 EDT, Height, 145, kg, 08/29/22 20:13:00 EST, Dry Weight Start Date: 05/01/23 Status: Ordered oxyCODONE 5 mg oral tablet 5 mg, 1, tablet, By Mouth, Every 4 hours, PRN, you may filll this prescription for fewer pills. Edward reviewed, # 20 tablet, Refills 0, Tot. Refills 0, Maintenance, Pain , Severe, 05/22/23 9:10:00 EDT, Route to Pharmacy Electronically, [facility]/pharmacy... Start Date: 05/22/23 Status: Ordered Splint See [...] Type Site Repair Hernia Umbilical Laparoscopic Yasemin Diza MD 05/22/23 Unknown Umbilicus Device Identifier Serial Number Lot or Batch Number Manufacturing Date Expiration Date Distinct Identification Code MRI Safety Implantable Status Assigning Authority [id number] Unknown [id number] Unknown 08/26/24 Unknown Unknown Active GS1 Patient Care team information Care Team Personnel Name: Celestina Trinidad MD Position: [facility] Physician - Primary Care Member Role: PCP Address: Address: [address] [place] [address] Name: Hemalatha Lucas RN [facility] Bonilla RN Position: [facility] Chemical Laboratory Tester Member Role: Primary Care Nurse Care Team Related Persons Name: DINESH SARGENT Address: home [address] [address] Name: BON DE Address: home [address] [address]
--- OUTSIDE RECORDS SUMMARY | 2024-06-24 14:24 | XMS_ITS | Continuity of Care Document ---
Author Organization [facility] Address [address] [place] [address]- Care Team Providers Care Secondary Special Education Teacher Name Role Phone Florentino AHN, Elder Hannah Primary Care Physician Encounter [facility] Date(s): 12/17/20 - 01/16/21 [facility] [address] [place] [address]- Allergies, Adverse Reactions, Alerts Substance Reaction Severity [...] [facility]# [id number] 2Result Comment: [05/25/2018] [facility] lot number [id number] exp 01/26/[facility] 94923-583-21 3Result Comment: [08/20/2017] [facility] 48410-832-01 4Admin Note: VIM dated 01/29/12 GIVEN TODAY 5Result Comment: [facility]#[id number] 6Admin Note: VIM dated 08/22/11 GIVEN TODAY [...] 10/27/20 14:48:00 EDT, Route to Pharmacy Electronically, [id number], [facility]/pharmacy #2024, 160.02, cm, 10/19/20 11:04:00 EDT, Height, 156... Start Date: 10/27/20 Status: Ordered betamethasone-clotrimazole 0.05%-1% topical cream 1 application, Topically, 2 times a day, # 45 Gm, 0 Refills, Maintenance, 12/27/20 14:13:00 EDT, [place], [facility]/pharmacy #2024, Partial fill upon patient request if the prescription is for a schedule II opioid drug., 1 application Topically 2 times a day,... Start Date: 12/27/20 Status: Ordered diclofenac 1% topical gel See Instructions, APPLY TOPICALLY 4 TIMES A DAY, # 100 Gm, 1 Refills, 10/27/20 12:37:00 EDT, [facility]/pharmacy #2024, 25, APPLY TOPICALLY 4 TIMES A DAY, 160.02, cm, 10/19/20 11:04:00 EDT, Height, 156.81, kg, 10/19/20 11:04:00 EDT, Dry Weight Start Date: 10/27/20 Status: Ordered FLUoxetine 20 mg oral capsule 20 mg, 1, capsule, By Mouth, Daily, # 30 capsule, Refills 5, Tot. Refills 5, Maintenance, 12/20/20 14:39:00 EDT, Route to Pharmacy Electronically, [facility]/pharmacy #2024, replacing 10mg dose, 160.02, cm,12/20/20 11:59:00 EDT, Height, 156.81, kg, 10/19/20... Start Date: 12/20/20 Status: Ordered levothyroxine 0.137 mg oral tablet See Instructions, Take 1 tablet by mouth on days 1-6, then take 2 tablets by mouth on day 7, # 121 tablet, 5 Refills, Maintenance, 12/07/20 9:46:00 EDT, [facility]/pharmacy #5, 160.02, cm, 10/19/20 11:04:00 EDT, Height, 156.81, kg, 10/19/20 11:04:00 EDT,... Start Date: 12/07/20 Status: Ordered meloxicam 15 mg oral tablet 1 tablet, By Mouth, Daily, WITH FOOD., # 30 tablet, 1 Refills, Maintenance, 12/20/20 7:39:00 EDT, [facility], 160.02, cm, 10/19/20 11:04:00 EDT, Height, 156.81, [...] 08/04/19 17:54:00 EST, Route to Pharmacy Electronically, [facility]/pharmacy #2024, 161, cm, 08/04/19 14:44:00 EST, Height Start Date: 08/04/19 Stop Date: 08/18/19 Status: Ordered traMADol 50 mg oral tablet 2 tablet = 100 mg, By Mouth, Every 12 hours, as needed for pain masspat checked, # 120 tablet, 2 Refills, Maintenance, 09/13/20 16:54:00 EST, [facility]/pharmacy #5, 161, cm, 08/18/20 15:29:00 EST, Height [...]
--- OUTSIDE RECORDS SUMMARY | 2024-06-24 14:24 | XMS_ITS | Continuity of Care Document ---
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 Name Role Phone Celestina Trinidad MD Primary Care Physician [place] [facility] [place](s): 08/25/22 - 09/01/22 [facility] [address] [place] [address]- Encounter Diagnosis Finger pain(Discharge Diagnosis) - 08/25/22 Finger infection(Discharge Diagnosis) - 08/25/22 Attending Physician: Celestina Trinidad MD Allergies, Adverse Reactions, Alerts No Known Allergies Immunizations Given and Recorded Vaccine Date Status Refusal Reason tetanus/diphtheria/pertussis, acel(Tdap) 1 08/21/22 Given tetanus/diphtheria/pertussis, acel(Tdap) 2 08/13/12 Given [id number] 12y+ bivalent booster vax 06/14/22 Recorded influenza [...] inactivated 6 07/31/12 Gi hali SARS-CoV-2 mRNA (sapcbmf-vcfw-sndyb) vax 02/14/22 Recorded SARS-CoV-2 (COVID-19) mRNA BNT-162b2 vac 05/06/21 Given SARS-CoV-2 (COVID-19) mRNA BNT-162b2 vac 11/04/20 Recorded SARS-CoV-2 (COVID-19) mRNA BNT-162b2 vac 10/14/20 Recorded pneumococcal 23-valent vaccine 7 04/07/19 Given 1Result Comment: [facility]# [id number] 2Admin Note: VIM dated 08/22/11 GIVEN TODAY 3Result Comment: [facility]# [id number] 4Result Comment: [05/25/2018] [facility] lot number [id number] exp 01/26/2019 [facility] [id number] 5Result Comment: [08/20/2017] [facility] [id number] 6Admin Note: VIM dated 01/29/12 GIVEN TODAY 7Result Comment: [facility]#[id number] Medications acetaminophen 500 mg oral capsule 2 [...] Stop, 04/10/2215:14:00 EDT, Route to Pharmacy Electronically, [id number], [facility]/pharmacy #2025, 158, cm, 04/10/22 14:56:00 EDT, Height, 143,... Start Date: 04/10/22 Status: Ordered amLODIPine 5 mg oral tablet 1 tablet, By Mouth, Daily, # 30 tablet, 5 Refills, Maintenance, 08/24/22 20:08:00 EST, [facility], 159, cm, 08/21/22 11:38:00 EST, Height, 143, kg, 01/04/21 10:42:00 EDT, Dry Weight Start Date: 08/24/22 Status: Ordered Anoro Ellipta 62.5 mcg-25 mcg/inh inhalation powder 1 puffs, By Mouth, Daily, # 1 each, 6 Refills, Maintenance, 05/11/22 13:00:00 EDT, Powder, [facility], Partial fill upon patient [...] 10/12/22 13:28:00 EDT, 08/31/22 13:28:00 EST, Tablet, [facility]/pharmacy #202, Partial fill upon patient request if the prescription is for a schedule II opioid drug., 157, cm... Start Date: 08/31/22 Stop Date: 10/12/22 Status: Ordered cilostazol 100 mg oral tablet 1 tablet, By Mouth, 2 times a day, # 60 tablet, 0 Refills, Maintenance, 08/20/22 11:31:00 EST, [facility], 159, cm, 08/15/22 11:23:00 EST, Height, 143, [...] 08/31/22 13:30:00 EST, Route to Pharmacy Electronically, [facility]/pharmacy #2025, Partial fill upon patient request if the p... Start Date: 08/31/22 Status: Ordered Flonase 50 mcg/inh nasal spray See Instructions, 2 sprays Nares twice daily x 1 week, then once daily x 1-2 weeks until symptoms improve, # 16 Gm, 0 Refills, Maintenance, 02/28/21 16:31:00 EDT, [place], [facility]/pharmacy #202, Partial fill upon patient request if the prescription is for... Start Date: 02/28/21 Status: Ordered fluconazole 200 mg oral tablet 2 tablet = 400 mg, By Mouth, Daily, for 6 week(s), # 84 tablet, 0 Refills, Acute 10/12/22 13:28:00 EDT, 08/31/22 13:28:00 EST, Tablet, [facility]/pharmacy #202, Partial fill upon patient request if the prescription is for a schedule II opioid drug., 157, cm... Start Date: 08/31/22 Stop Date: 10/12/22 Status: Ordered FLUoxetine 20 mg oral capsule See Instructions, TAKE 1 CAPSULE BY MOUTH EVERY DAY, # 90 capsule, Refills 1, Maintenance, 06/13/2215:26:00 EST, Instructions Replace Required Details, Route to Pharmacy Electronically, [facility]ORE [facility], 158, cm, 06/09/22 11:21:00 EST, Height, 143, [...] 1 Refills, Maintenance, 07/03/22 14:41:00 EST, Tablet, [facility]/pharmacy #2024, Partial fill upon patient request if the prescription is for a schedule II opioid dr... Start Date: 07/03/22 Status: Ordered meclizine 25 mg oral tablet See Instructions, PRN Dizziness, 1 tablet By Mouth 3 times a day, # 30 tablet, 0 Refills, Maintenance, 05/11/21 13:11:00 EDT, [facility]/pharmacy #2024, Partial fill upon patient request if the prescriptionis for a schedule II opioid drug., 160.02, cm, 10/0... Start Date: 05/11/21 Status: Ordered meloxicam 15 mg oral tablet See Instructions, TAKE 1 TABLET BY MOUTH DAILY WITH FOOD. LABS NEEDED FOR FURTHER REFILLS, # 30 tablet, 3 Refills, Maintenance, 07/17/22 19:56:00 EST, [facility]/pharmacy #2024, 158, cm, 07/13/22 13:46:00 EST, Height, 143, kg, 01/04/21 10:42:00 EDT, Dry Weight Start Date: 07/17/22 Status: Ordered oxyCODONE 10 mg oral tablet 1 tablet = 10 mg, By Mouth, Every 6 hours, PRN as needed for pain, for 5 days, # 20 tablet, 0 Refills, Acute 09/05/22 13:29:00 EST, 08/31/22 13:29:00 EST, Tablet, [facility] [...] Dates Health Status Cl inical Service Informant Finger pain Discharge Diagnosis 08/25/22 Finger infection Discharge Diagnosis 08/25/22 Vital Signs Most recent to oldest [Reference Range]: 1 Height 159 cm (08/25/22 11:07 AM) Oxygen Saturation [94-100 %] 99 % (08/25/22 11:07 AM) Pulse Rate [55-90 bpm] 88 bpm (08/25/22 11:07 AM) Blood Pressure [90-138/55-84 mm Hg] 118/ 67mm Hg (08/25/22 11:07 AM) Blood pressure sites Arm, left (08/25/22 11:07 AM) Weight Obtained Via Patient lift hanging scale (08/25/22 11:07 AM) Social History Social History Type Response Smoking Status Former smoker, quit more than 30 days ago; Other: smoked up to pack a day x 25 years; entered on: 11/14/21 Sex Note * Yesenia Reid: PERFORM, SIGN, VERIFY Event Display: Patient Education/Instruction Authored Date: [id number] [facility] Clinical Summary Name JORGE ALBERTO SAHU Age 62 Years 1960 PCP Vivi HENNING, Celestina Givens PCP Visit Date 08/25/2022 11:00:00 Additional Instructions: Scheduled Appointments?? Future Appointments ?*[facility] ?Phone:??--?Fax:??-- ?Appt. Date:??08/28/2022?8:40 AM ?Scheduled Provider:??Jay Stafofrd MD ?*[facility]urg??[facility] ?Phone:??--?Fax:??-- ?Appt. Date:??09/05/2022?4:20 PM ?Scheduled Provider:??Wanda Panchal ?*[facility] ?[address]??[place],??[place],??[address] ?Phone:??--?Fax:??-- ?Appt. Date:??09/12/2022?10:40 AM ?Scheduled Provider:??Gera HENNING, [...] Panel? Order Date:08/25/22?- Complete on or after?08/25/22 Vital Signs Height 159 cm Weight BMI Blood Pressure 118 mm Hg/67 mm Hg Temperature Pulse Rate 88 bpm Respiratory Rate 02 Sat Mode of Delivery 99 %/ You can now view a summary of your hospital visit from the comfort of your home through a free online portal called oroeco. [employer]eco is a website that allows you to securely view your medical information including discharge summary, medications and follow-up visits. ??You can alsosend a secure electronic message to your doctor???s office to request appointments, renew medications or just ask a question. You can enroll at [email or web address] or register during your next [...] primary care provider, you may find a [facility] provider by calling [facility] [employer] Link at [phone]. For information about the plan of care [...] Team Personnel Name: Celestina Trinidad MD Position: [facility] Primary Care Physician Member Role: PCP Address: Address: [address] [place] [address] Name: Hemalatha Lucas RN Position: [facility] RN Member Role: Primary Care Nurse Name: Lauren Mack RN Position: [facility] AMB Nurse Member Role: Primary Care Nurse Name: Madelaine Ruiz RN Position: [facility] RN Member Role: Primary Care Nurse Name: Lora Santiago RN Position: [facility] SN RN Member Role: Primary Care Nurse Name: Mayco Ro RN Position: [facility] RN Member Role: Primary Care Nurse Name: Heydi Potts RN Position: [facility] RN Member Role: Primary Care Nurse Name: Janice Romano LPN Position: [facility] RN Member Role: Primary Care Nurse Name: Nadya Low RN Position: [facility] RN Member Role: Primary Care Nurse Name: Mirna Greenfield RN Position: [facility] RN Member Role: Primary Care Nurse Name: Nessa Bonilla RN Position: [facility] Hospital Hydrator Member Role: Primary Care Nurse Care Team Related Persons Name: ROSETTAROLADINESH Address: [address] [place] [address] Name: BON DE Address: [address] [address]
--- OUTSIDE RECORDS SUMMARY | 2024-06-24 14:24 | XMS_ITS | Continuity of Care Document ---
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 Name Role Phone Celestina Trinidad MD Primary Care Physician Encounter [facility] [place] Date(s): 10/12/23 - 11/11/23 [facility] [address] [place] [address]- Allergies, Adverse Reactions, Alerts No Known Allergies [...] 08/21/22 Given tetanus/diphtheria/pertussis, acel(Tdap) 7 08/13/12 Given [id number] 12y+ bivalent booster vax 06/14/22 Recorded SARS-CoV-2 mRNA (gkykepf-kvvh-eczws) vax 02/14/22 Recorded SARS-CoV-2 (COVID-19) mRNA BNT-162b2 vac 05/06/21 Given SARS-CoV-2 (COVID-19) mRNA BNT-162b2 vac 11/04/20 Recorded SARS-CoV-2 (COVID-19) mRNA BNT-162b2 vac 10/14/20 Recorded pneumococcal 23-valent vaccine 8 04/07/19 Given 1Result Comment: screening negative 2Result Comment: [facility]# [id number] 3Result Comment: [05/25/2018] [facility] lot number [id number] exp 01/26/2019 [facility] 74901-512-85 4Result Comment: [08/20/2017] [facility] 72489-514-06 5Admin Note: VIM dated 01/29/12 GIVEN TODAY 6Result Comment: [facility]# [id number] 7Admin Note: VIM dated 08/22/11 GIVEN TODAY 8Result Comment: [facility]#[id number] Medications acetaminophen 500 mg oral capsule 2 [...] 16:45:00 EDT, Route to Pharmacy Electronically, [facility] [...] Gm, 0 Refills, Maintenance, 02/28/21 16:31:00 EDT, [place], Partial fill upon patient request [...] 19:01:00 EST, [facility] 157.5, cm, 07/13/23 9:57:00 EST, Height, 145.9, kg, 05/22/23 7:39:00 EDT, Dry Weight Start Date: 07/31/23 Status: Ordered gabapentin 300 mg oral capsule 600 mg, 2, capsule, By Mouth, 3 times a day, # 180 capsule, Refills 3, Tot. Refills 3, Maintenance,08/25/22 22:35:00 EST, [facility]ically[facility] Partial fill upon patient [...] tablet, 0 Refills, Maintenance, 10/12/23 6:42:00 EDT, [facility]/pharm[facility]2024, 157.5, cm, 07/13/23 9:57:00 EST, Height, 145.9, kg, 05/22/23 7:39:00 EDT, Dry Weight Start Date: 10/12/23 Status: Ordered meclizine 25 mg oral tablet See Instructions, PRN Dizziness, 1 tablet By Mouth 3 times a day, # 30 tablet, 0 Refills, Maintenance, 02/27/23 10:43:00 EDT, [facility]/pharmacy #2024, Partial fill upon patient request if the prescriptionis for a schedule II opioid drug., 157, cm, ... Start Date: 02/27/23 Status: Ordered meloxicam 15 mg oral tablet See Instructions, TAKE 1 TABLET BY MOUTH DAILY WITH FOOD., # 30 tablet, 5 Refills, Maintenance, 10/08/23 17:05:00 EDT, [facility]/pharmacy #2024, 157.5, cm, 07/13/23 9:57:00 EST, Height, 145.9, kg, :39:00 EDT, Dry Weight Start Date: 10/08/23 Status: Ordered metFORMIN 500 mg oral tablet, extended release 1 tablet = 500 mg, By Mouth, Daily, # 90 tablet, 1 Refills, Maintenance, 10/24/23 11:39:00 EDT, ER Tablet, [facility]/pharmacy #2024, Partial fill [...] tablet, 0 Refills, Maintenance, 11/05/23 16:28:00 EDT, [facility]/pharmacy #2025, Partial [...] Code MRI Safety Implantable Status Assigning Authority [id number] Unknown [id number] Unknown 08/26/24 Unknown Unknown Active GS1 Patient Care team information Care Team Personnel Name: Celestina Trinidad MD Position: S Physician - Primary Care Member Role: PCP Address: Address: [address] [place] [address] Name: Hemalatha Lucas RN Position: [facility] Potts RN Position: [facility] SN [...] Nessa Bonilla RN Position: [facility] Bricklayer Supervisor Member Role: Primary Care Nurse Care Team Related Persons Name: ROSETTAROLADINESH Address: home [address] [place] [address] Name: BON DE Address: home [address] [address]
--- OUTSIDE RECORDS SUMMARY | 2024-06-24 14:24 | XMS_ITS | Continuity of Care Document ---
Author Organization [facility] Address [address] [place] [address]- Care Team Providers Care Broadcast Operations Director Name Role Phone Vivi HENNING, Celestina Givens Primary Care Physician Encounter [facility] Date(s): 11/30/22 - 12/30/22 [facility] [address] [place] [address]- Allergies, Adverse Reactions, Alerts No Known Allergies Immunizations Given and Recorded Vaccine Date Status Refusal Reason tetanus/diphtheria/pertussis, acel(Tdap) 1 08/21/22 Given tetanus/diphtheria/pertussis, acel(Tdap) 2 08/13/12 Given [id number] 12y+ bivalent booster vax 06/14/22 Recorded influenza [...] inactivated 6 07/31/12 Gi hali SARS-CoV-2 mRNA (ovyhzfb-mtyi-pneum) vax 02/14/22 Recorded SARS-CoV-2 (COVID-19) mRNA BNT-162b2 vac 05/06/21 Given SARS-CoV-2 (COVID-19) mRNA BNT-162b2 vac 11/04/20 Recorded SARS-CoV-2 (COVID-19) mRNA BNT-162b2 vac 10/14/20 Recorded pneumococcal 23-valent vaccine 7 04/07/19 Given 1Result Comment: [facility]# [id number] 2Admin Note: VIM dated 08/22/11 GIVEN TODAY 3Result Comment: [facility]# [id number] 4Result Comment: [05/25/2018] [facility] lot number [id number] exp 01/26/2019 [facility] [id number] 5Result Comment: [08/20/2017] [facility] [id number] 6Admin Note: VIM dated 01/29/12 GIVEN TODAY 7Result Comment: [facility]#[id number] Medications acetaminophen 500 mg oral capsule 2 [...] Stop, 04/10/2215:14:00 EDT, Route to Pharmacy Electronically, [id number], [facility]/pharmacy #2025, 158, cm, 04/10/22 14:56:00 EDT, Height, 143,... Start Date: 04/10/22 Status: Ordered amLODIPine 10 mg oral tablet 1 tablet, By Mouth, Daily, # 90 tablet, 0 Refills, Maintenance, 10/23/22 12:47:00 EDT, [facility] STORE [facility], 157, cm, 09/13/22 15:58:00 EST, Height, 145, kg, 08/29/22 20:13:00 EST, Dry Weight Start Date: 10/23/22 Status: Ordered budesonide-formoterol 80 mcg-4.5 mcg/inh inhalation aerosol with adapter 2, puffs, Inhalation, 2 times a day, PRN, use with spacer chamber, rinse mouth and throat after use, j44.9, # 1 each, Refills 6, Tot. Refills 6, Maintenance, 12/08/22 12:55:00 EDT, Aerosol, Route to Pharmacy Electronically, [id number]... Start Date: 12/08/22 Status: Ordered Compression Stockings [...] 100 Gm, 1 Refills, 09/22/22 7:28:00 EST, [facility]/pharmacy #2024, 25, APPLY TOPICALLY 4 TIMES [...] 13:30:00 EST, Route to Pharmacy Electronically, [facility]/pharmacy #2024, Partial fill upon patient request if the p... Start Date: 08/31/22 Status: Ordered Flonase 50 mcg/inh nasal spray See Instructions, 2 sprays Nares twice daily x 1 week, then once daily x 1-2 weeks until symptoms improve, # 16 Gm, 0 Refills, Maintenance, 02/28/21 16:31:00 EDT, [place], [facility]/pharmacy #2024, Partial [...] 11/29/22 22:18:00 EDT, Route to Pharmacy Electronically, [facility] STORE 97548, 157, cm, 10/30/22 13:53:00 EDT, Height, 145, [...] 1 Refills, Maintenance, 07/03/22 14:41:00 EST, Tablet, [facility]/pharmacy [...] Refills, Maintenance, 10/18/22 21:31:00 EDT, [facility], 157, cm, 09/13/22 15:58:00 EST,Height, 145, kg, [...] Care Member Role: PCP Address: Address: [address] [place] [address] Name: Hemalatha Lucas RN Position: [facility] [...] Member Role: Primary Care Nurse Name: Mirna Greenfiedl RN Position: [facility] RN Member Role: Primary Care Nurse Name: Nessa Bonilla RN Position: [facility] Remote Encoding Center Manager Member Role: Primary Care Nurse Care Team Related Persons Name: DINESH SARGENT Address: home [address] [place] [address] Name: BON DE Address: [address] [address]
--- OUTSIDE RECORDS SUMMARY | 2024-06-24 14:24 | XMS_ITS | Continuity of Care Document ---
Author Organization [facility] Address [address] [place] [address]- Care Team Providers Care Liquor Department Manager Name Role Phone Yolanda AHN, Padmaja Pelayo Primary Care Physician [phone] [place] [facility] [place] 11/03/21 [facility] [address] [place] [address]- Attending Physician: Calixto Beltran Admitting Physician: Calixto [...] acel(Tdap) 6 08/13/12 Given 1Result Comment: [facility]# [id number] 2Result Comment: [05/25/2018] [facility] lot number [id number] exp 01/26/2019 [facility] [id number] 3Result Comment: [08/20/2017] [facility] [id number] 4Admin Note: VIM dated 01/29/12 GIVEN TODAY 5Result Comment: [facility]#[id number] 6Admin Note: VIM dated 08/22/11 GIVEN TODAY [...] Replace Required Details, Route to Pharmacy Electronically, [id number]... Start Date: 10/28/21 Status: Ordered Aerochamber w/Mask [...] 07/25/21 16:53:00 EST, Route to Pharmacy Electronically, [id number], [facility], 160.02, cm, 07/25/21 16:20:00 EST, [...] Gm, 0 Refills, Maintenance, 02/28/21 16:31:00 EDT, [place], [facility]/pharmacy #202, Partial fill upon patient request if the prescription is for... Start Date: 02/28/21 Status: Ordered FLUoxetine 10 mg oral capsule 10 mg, 1, capsule, By Mouth, Daily, Take with 20mg capsule for total of 30mg daily, # 90 capsule, Refills 1, Tot. Refills 1, Maintenance, 09/19/21 12:45:00 EST, Route to Pharmacy Electronically, [facility]/pharmacy #202, Partial fill upon patient request if... Start Date: 09/19/21 Status: Ordered FLUoxetine 20 mg oral capsule 20 mg, 1, capsule, By Mouth, Daily, Take with Fluoxetine 10mg for a total of 30mg, # 90 capsule, Refills 1, Tot. Refills 1, Maintenance, 05/04/21 16:44:00 EDT, Route to [facility] Electronically, [facility], replacing 10mg dose, 160.02, cm, 080... Start Date: 05/04/21 Status: Ordered levothyroxine 0.137 mg oral tablet See Instructions, Take 1 tablet by mouth on days 1-6, then take 2 tablets by mouth on day 7, # 121 tablet, 5 Refills, Maintenance, 12/07/20 9:46:00 EDT, [facility], 160.02, cm, 10/19/20 11:04:00 EDT, Height, 156.81, kg, 10/19/20 11:04:00 EDT,... Start Date: 12/07/20 Status: Ordered meclizine 25 mg oral tablet See Instructions, PRN Dizziness, 1 tablet By Mouth 3 times a day, # 30 tablet, 0 Refills, Maintenance, 05/11/21 13:11:00 EDT, [facility]/pharmacy #202, Partial fill upon patient request if [...] 01/20/22 10:19:00 EDT, 09/22/21 10:19:00 EST, Tablet, [facility]/pharmacy#2024, 160.02, cm, 07/25/21 16:20:00 EST, Height,... Start [...]
--- OUTSIDE RECORDS SUMMARY | 2024-06-24 14:24 | XMS_ITS | Continuity of Care Document ---
Author Organization [facility] Address [address] [place] [address] [address] [place] [address]- Care Team Providers Care Plate Slitter And Inspector Name Role Phone Vivi HENNING, Celestina Givens Primary Care Physician Encounter [facility] Date(s): 07/18/22 - 07/25/[address] [place] [address]- Attending Physician: Jay Stafford MD Referring Physician: Celestina Trinidad MD Allergies, Adverse Reactions, Alerts No Known Allergies Immunizations Given and Recorded Vaccine Date Status Refusal Reason QHIN-DwH-0yQDE 12y+ bivalent booster vax 06/14/22 Recorded influenza [...] inactivated 4 07/31/12 Gi hali SARS-CoV-2 mRNA (yvfvybc-dcqy-oukcq) vax 02/14/22 Recorded SARS-CoV-2 (COVID-19) mRNA BNT-162b2 vac 05/06/21 Given SARS-CoV-2 (COVID-19) mRNA BNT-162b2 vac 11/04/20 Recorded SARS-CoV-2 (COVID-19) mRNA BNT-162b2 vac 10/14/20 Recorded pneumococcal 23-valent vaccine 5 04/07/19 Given tetanus/diphtheria/pertussis, acel(Tdap) 6 08/13/12 Given 1Result Comment: [facility]# [id number] 2Result Comment: [05/25/2018] [facility] lot number [id number] exp 01/26/2019 [facility] [id number] 3Result Comment: [08/20/2017] [facility] [id number] 4Admin Note: VIM dated 01/29/12 GIVEN TODAY 5Result Comment: [facility]#[id number] 6Admin Note: VIM dated 08/22/11 GIVEN TODAY [...] Stop, 04/10/2215:14:00 EDT, Route to Pharmacy Electronically, [id number], [facility]/pharmacy #2025, 158, cm, 04/10/22 14:56:00 EDT, Height, 143,... Start Date: 04/10/22 Status: Ordered amLODIPine 10 mg oral tablet 1 tablet, By Mouth, Daily, # 90 tablet, 0 Refills, Maintenance, 07/21/22 17:34:00 EST, [facility], 158, cm, 07/21/22 15:09:00 EST, Height, 143, kg, 01/04/21 10:42:00 EDT, Dry Weight Start Date: 07/21/22 Status: Ordered Anoro Ellipta 62.5 mcg-25 mcg/inh inhalation powder 1 puffs, By Mouth, Daily, # 1 each, 6 Refills, Maintenance, 05/11/22 13:00:00 EDT, Powder, [facility], Partial fill upon patient request [...] Refills, Maintenance, 07/21/22 17:34:00 EST, [facility], 158, cm, 07/21/22 15:09:00 EST, Height, 143, kg, 01/04/21 10:42:00 EDT, Dry Weight Start Date: 07/21/22 Stop Date: 07/31/22 Status: Ordered Flonase 50 mcg/inh nasal spray See Instructions, 2 sprays Nares twice daily x 1 week, then once daily x 1-2 weeks until symptoms improve, # 16 Gm, 0 Refills, Maintenance, 02/28/21 16:31:00 EDT, [place], [facility]/pharmacy #2025, Partial fill upon patient request if the prescription is for... Start Date: 02/28/21 Status: Ordered FLUoxetine 20 mg oral capsule See Instructions, TAKE 1 CAPSULE BY MOUTH EVERY DAY, # 90 capsule, Refills 1, Maintenance, 06/13/2215:26:00 EST, Instructions Replace Required Details, Route to Pharmacy Electronically, [facility], 158, cm, 06/09/22 11:21:00 EST, Height, 143, kg... Start Date: 06/13/22 Status: Ordered gabapentin 300 mg oral capsule 600 mg, 2, capsule, By Mouth, 2 times a day, # 120 capsule, Refills 1, Tot. Refills 1, Maintenance,07/22/22 8:06:00 EST, Route to Pharmacy Electronically, [facility]/pharmacy #2025, Partial fill upon [...] 96 tablet, 0 Refills, 06/29/22 15:47:00 EST, [facility]/pharmacy #2024, 158, cm,06/09/22 11:21:00 EST, [...] tablet, 3 Refills, Maintenance, 07/17/22 19:56:00 EST, [facility]/pharmacy #2024, 158, cm, 07/13/22 13:46:00 EST, Height, 143, kg, 01/04/21 10:42:00 EDT, Dry Weight Start Date: 07/17/22 Status: Ordered oxyCODONE 10 mg oral tablet 1 tablet = 10 mg, By Mouth, Every 6 hours, PRN as needed for pain, # 20 tablet, 0 Refills, Acute 08/04/22 9:15:00 EST, 07/21/22 9:15:00 EST, Tablet, [facility]/pharmacy #2024, Partial fill upon [...] oldest [Reference Range]: 1 Height 158 cm (07/18/22 11:49 AM) Social History Social History Type Response Smoking Status Former smoker, quit more than 30 days ago; Other: smoked up to pack a day x 25 years; entered on: 11/14/21 Sex Patient Care team information Care Team Personnel Name: Celestina Trinidad MD Position: [facility] Primary Care Physician Member Role: PCP Address: Address: [address] [place] [id number] Name: Lauren Makc RN Position: [facility] Nurse Member Role: Primary Care Nurse Name: Lora Santiago RN Position: [facility] RN Member Role: Primary Care Nurse [...] [facility] Hospital Fashion Photographer Member Role: Primary Care Nurse Care Team Related Persons Name: ROSETTA DINESH Address: home [address] [place] [address] Name: BON DE Address: [address] [address]
--- OUTSIDE RECORDS SUMMARY | 2024-06-24 14:24 | XMS_ITS | Continuity of Care Document ---
Author Organization [facility] Address [address] [place] [address]- Care Team Providers Care Shot Grinder Operator Name Role Phone Vivi HENNING, Celestina Givens Primary Care Physician Encounter [facility] Date(s): 04/18/24 - 05/18/24 [facility] [address] [place] [address]- Allergies, Adverse Reactions, Alerts No Known Allergies [...] 08/21/22 Given tetanus/diphtheria/pertussis, acel(Tdap) 7 08/13/12 Given MTLP-YiT-2vSYI 12y+ bivalent booster vax 06/14/22 Recorded SARS-CoV-2 mRNA (ujakvji-mhlf-fifjv) vax 02/14/22 Recorded SARS-CoV-2 (COVID-19) mRNA BNT-162b2 vac 05/06/21 Given SARS-CoV-2 (COVID-19) mRNA BNT-162b2 vac 11/04/20 Recorded SARS-CoV-2 (COVID-19) mRNA BNT-162b2 vac 10/14/20 Recorded pneumococcal 23-valent vaccine 8 04/07/19 Given 1Result Comment: screening negative 2Result Comment: [facility]# [id number] 3Result Comment: [05/25/2018] [facility] lot number [id number] exp 01/26/2019 [facility] [id number] 4Result Comment: [08/20/2017] [facility] [id number] 5Admin Note: VIM dated 01/29/12 GIVEN TODAY 6Result Comment: [facility]# [id number] 7Admin Note: VIM dated 08/22/11 GIVEN TODAY 8Result Comment: [facility]#[id number] Medications acetaminophen 500 mg oral capsule 2 [...] 1 Refills, Soft Stop, 12/06/23 17:28:00 EDT, [facility]/pharmacy #5, Partial fill upon patient request [...] 05/17/24 16:46:00 EDT, Route to Pharmacy Electronically, [facility]/pharmacy #202, Partial fill upon patient request if the prescription is for a... Start Date: 05/17/24 Status: Ordered diclofenac 1% topical gel See Instructions, APPLY TO AFFECTED AREA 4 TIMES A DAY. NOT COVERED, # 100 Gm, 1 Refills, Maintenance, 04/22/24 15:15:00 EDT, [facility]/pharmacy #2024, 30, APPLY TO AFFECTED AREA 4 TIMES A DAY. NOT COVERED, 157.5, cm, 02/12/24 14:48:00 EDT, Height, 145.9, k... Start Date: 04/22/24 Status: Ordered diclofenac 1% topical gel See Instructions, APPLY TO AFFECTED AREA 4 TIMES A DAY, # 100 Gm, 1 Refills, Maintenance, 11/07/23 7:48:00 EDT, [facility]/pharmacy #2024, 25, APPLY TO AFFECTED AREA [...] Gm, 0 Refills, Maintenance, 02/28/21 16:31:00 EDT, [place], [facility]/pharmacy #2025, Partial fill upon patient request if the prescription is for... Start Date: 02/28/21 Status: Ordered FLUoxetine 10 mg oral capsule 1, capsule, By Mouth, Daily, INSTR:TO BE TAKEN WITH 20MG CAPSULES TO EQUAL 30MG DAILY, # 90 capsule, Refills 1, Maintenance, 01/25/24 9:11:00 EDT, Route to Pharmacy Electronically, [facility], 157.5, cm, 01/22/24 10:31:00 EDT, Height, 145.9, kg,... Start Date: 01/25/24 Status: Ordered gabapentin 300 mg oral capsule 600 mg, 2, capsule, By Mouth, 3 times a day, # 180 capsule, Refills 3, Tot. Refills 3, Maintenance,08/25/22 22:35:00 EST, Route to Pharmacy Electronically, [facility]/pharmacy #202, Partial [...] tablet, 1 Refills, Maintenance, 12/28/23 16:17:00 EDT, [facility], 157.5, cm, 10/18/23 15:15:00 EDT, Height, 145.9, [...] Code MRI Safety Implantable Status Assigning Authority [id number] Unknown [id number] 4 Unknown 08/26/24 Unknown Unknown Active GS1 Patient Care team information Care Team Personnel Name: Celestina Trinidad MD Position: [facility] Physician - Primary Care Member Role: PCP Address: Address: [address] [place] [address] Name: Hemalatha Lucas RN Position: [facility] RN Member Role: Primary Care Nurse Name: Lauren Mack RN Position: [facility] RN Member Role: Primary Care Nurse Name: Madelaine Ruiz RN Position: [facility] RN Member Role: Primary Care Nurse Name: Lora Santiago RN Position: [facility] SN RN Member Role: Primary Care Nurse Name: Mayco Ro RN Position: [facility] RN Member Role: Primary Care Nurse Name: Heydi Potts RN Position: [facility] SN RN Member Role: Primary Care Nurse Name: Janice Romano LPN Position: [facility] RN Member Role: Primary Care Nurse Name: Nadya Low RN Position: [facility] RN Member Role: Primary Care Nurse Name: Mirna Greenfield RN Position: [facility] RN Member Role: Primary Care Nurse Name: Nessa Bonilla RN Position: [facility] Machine Straw Hat Presser Member Role: Primary Care Nurse Care Team Related Persons Name: ROSETTA, DINESH Address: home [address] [place] [address] Name: BON DE Address: home [address] [address]
--- OUTSIDE RECORDS SUMMARY | 2024-06-24 14:24 | XMS_ITS | Continuity of Care Document ---
Author Organization [facility] Address [address] [place] [address]- Care Team Providers Care Warehouse Delivery Driver Name Role Phone Celestina Trinidad MD Primary Care Physician Encounter 10/25/23 - 05/01/24 [facility] [address], [address] [place] [address]- Attending Physician: Celestina Trinidad MD Admitting Physician: [...] 08/21/22 Given tetanus/diphtheria/pertussis, acel(Tdap) 7 08/13/12 Given QLRU-SbX-8iHLA 12y+ bivalent booster vax 06/14/22 Recorded SARS-CoV-2 mRNA (pipwoaf-qgca-tvmjs) vax 02/14/22 Recorded SARS-CoV-2 (COVID-19) mRNA BNT-162b2 vac 05/06/21 Given SARS-CoV-2 (COVID-19) mRNA BNT-162b2 vac 11/04/20 Recorded SARS-CoV-2 (COVID-19) mRNA BNT-162b2 vac 10/14/20 Recorded pneumococcal 23-valent vaccine 8 04/07/19 Given 1Result Comment: screening negative 2Result Comment: [facility]# [id number] 3Result Comment: [05/25/2018] [facility] lot number [id number] exp 01/26/2019 [facility] [id number] 4Result Comment: [08/20/2017] [facility] 83565-848-60 5Admin Note: VIM dated 01/29/12 GIVEN TODAY 6Result Comment: [facility]# [id number] 7Admin Note: VIM dated 08/22/11 GIVEN TODAY 8Result Comment: [facility]#[id number] Medications acetaminophen 500 mg oral capsule 2 [...] 1 Refills, Soft Stop, 12/06/23 17:28:00 EDT, [facility]/pharmacy #2025, [...] 05/17/24 16:46:00 EDT, Route to Pharmacy Electronically, [facility] Gm, 0 Refills, Maintenance, 02/28/21 16:31:00 EDT, [place], [facility]/pharmacy #2024, Partial fill upon patient request if the prescription is for... Start Date: 02/28/21 Status: Ordered FLUoxetine 10 mg oral capsule 1, capsule, By Mouth, Daily, INSTR:TO BE TAKEN WITH 20MG CAPSULES TO EQUAL 30MG DAILY, # 90 capsule, Refills 1, Maintenance, 01/25/24 9:11:00 EDT, Route to Pharmacy Electronically, [facility], 157.5, cm, 01/22/24 10:31:00 EDT, Height, 145.9, [...] Refills, Maintenance, 12/28/23 16:17:00 EDT, [facility], 157.5, cm, 10/18/23 15:15:00 EDT, Height, 145.9, kg, 05/22/23 7:39:00 EDT, Dry Weight Start Date: 12/28/23 Status: Ordered meclizine 25 mg oral tablet See Instructions, PRN Dizziness, 1 tablet By Mouth 3 times a day, # 30 tablet, 0 Refills, Maintenance, 02/27/23 10:43:00 EDT, [facility]/pharmacy #2025, Partial fill upon patient request if the prescriptionis for a schedule II opioid drug., 157, cm, ... Start Date: 02/27/23 Status: Ordered meloxicam 15 mg oral tablet See Instructions, TAKE 1 TABLET BY MOUTH DAILY WITH FOOD., # 30 tablet, 1 Refills, Maintenance, 03/28/24 7:37:00 EDT, [facility]/pharmacy #2025, 157.5, cm, 02/12/24 14:48:00 EDT, Height, 145.9, kg, :39:00 EDT, Dry Weight Start Date: 03/28/24 Status: Ordered metFORMIN 500 mg oral tablet, extended release 1 tablet = 500 mg, By Mouth, Daily, # 90 tablet, 1 Refills, Maintenance, 01/22/24 11:02:00 EDT, ER Tablet, [facility]/pharmacy #2025, Partial [...] Refills, Maintenance, 03/28/24 16:39:00 EDT, [facility], [facility], Partial fill upon patient requestif the prescription [...] tablet, 0 Refills, Maintenance, 03/31/24 17:50:00 EDT, [facility]/pharmacy #2025, [...] Code MRI Safety Implantable Status Assigning Authority [id number] [id number] Unknown [id number] 4 Unknown 08/26/24 Unknown Unknown Active GS1 Patient Care team information Care Team Personnel Name: Celestina Trinidad MD Position: S Physician - Primary Care Member Role: PCP Address: Address: [address] [place] [id number] Name: Hemalatha Lucas RN Position: [facility] RN Member Role: Primary Care Nurse Name: Lauren Mack RN Position: [facility] RN Member Role: Primary Care Nurse Name: Madelaine Ruiz RN Position: [facility] RN Member Role: Primary Care Nurse Name: Lora Santiago RN Position: [facility] SN RN Member Role: Primary Care Nurse Name: Mayco Ro RN Position: [facility] RN Member Role: Primary Care Nurse Name: Heydi Potts RN Position: [facility] SN RN Member Role: Primary Care Nurse Name: Janice Romano LPN Position: [facility] RN Member Role: Primary Care Nurse Name: Nadya Low RN Position: [facility] RN Member Role: Primary Care Nurse Name: Mirna Greenfield RN Position: [facility] RN Member Role: Primary Care Nurse Name: Nessa Bonilla RN Position: [facility] Automatic Seamer Member Role: Primary Care Nurse Care Team Related Persons Name: DINESH SARGENT Address: home [address] [place] [address] Name: BON DE Address: home [address] [place] [address]
--- OUTSIDE RECORDS SUMMARY | 2024-06-24 14:24 | XMS_ITS | Continuity of Care Document ---
Author Organization [facility] Address [address] [place] [address]- Care Team Providers Care Armored Car Messenger Name Role Phone Florentino AHN, Elder Hannah Primary Care Physician [phone] Encounter [facility] Date(s): 12/07/20 - 01/06/21 [facility] [address] [place] [address]- Allergies, Adverse Reactions, Alerts Substance Reaction Severity [...] tetanus/diphtheria/pertussis, acel(Tdap) 6 08/13/12 Given 1Result Comment: [facility]# [id number] 2Result Comment: [05/25/2018] [facility] lot number [id number] exp 01/26/2019 [facility] 56418-890-55 3Result Comment: [08/20/2017] [facility] 27442-105-06 4Admin Note: VIM dated 01/29/12 GIVEN TODAY 5Result Comment: [facility]#[id number] 6Admin Note: VIM dated 08/22/11 GIVEN TODAY [...] 10/27/20 14:48:00 EDT, Route to Pharmacy Electronically, [id number], [facility]/pharmacy #2024, 160.02, cm, 10/19/20 11:04:00 EDT, Height, 156... Start Date: 10/27/20 Status: Ordered betamethasone-clotrimazole 0.05%-1% topical cream 1 application, Topically, 2 times a day, # 45 Gm, 0 Refills, Maintenance, 12/27/20 14:13:00 EDT, [place], [facility]/pharmacy #2024, Partial fill upon patient request if the prescription is for a schedule II opioid drug., 1 application Topically 2 times a day,... Start Date: 12/27/20 Status: Ordered diclofenac 1% topical gel See Instructions, APPLY TOPICALLY 4 TIMES A DAY, # 100 Gm, 1 Refills, 10/27/20 12:37:00 EDT, [facility]/pharmacy #2024, 25, APPLY TOPICALLY 4 TIMES A DAY, 160.02, cm, 10/19/20 11:04:00 EDT, Height, 156.81, kg, 10/19/20 11:04:00 EDT, Dry Weight Start Date: 10/27/20 Status: Ordered FLUoxetine 20 mg oral capsule 20 mg, 1, capsule, By Mouth, Daily, # 30 capsule, Refills 5, Tot. Refills 5, Maintenance, 12/20/20 14:39:00 EDT, Route to Pharmacy Electronically, [facility]/pharmacy #2024, replacing 10mg dose, 160.02, cm,12/20/20 11:59:00 EDT, Height, 156.81, kg, 10/19/20... Start Date: 12/20/20 Status: Ordered levothyroxine 0.137 mg oral tablet See Instructions, Take 1 tablet by mouth on days 1-6, then take 2 tablets by mouth on day 7, # 121 tablet, 5 Refills, Maintenance, 12/07/20 9:46:00 EDT, [facility]/pharmacy #5, 160.02, cm, 10/19/20 11:04:00 EDT, Height, 156.81, kg, 10/19/20 11:04:00 EDT,... Start Date: 12/07/20 Status: Ordered meloxicam 15 mg oral tablet 1 tablet, By Mouth, Daily, WITH FOOD., # 30 tablet, 1 Refills, Maintenance, 12/20/20 7:39:00 EDT, [facility], 160.02, cm, 10/19/20 11:04:00 EDT, Height, 156.81, [...] to Pharmacy Electronically, [facility]/pharmacy #2024, 161, cm, 08/04/19 14:44:00 EST, Height Start Date: 08/04/19 Stop Date: 08/18/19 Status: Ordered traMADol 50 mg oral tablet 2 tablet = 100 mg, By Mouth, Every 12 hours, as needed for pain masspat checked, # 120 tablet, 2 Refills, Maintenance, 09/13/20 16:54:00 EST, [facility]/pharmacy #5, 161, cm, 08/18/20 15:29:00 EST, Height [...]
--- OUTSIDE RECORDS SUMMARY | 2024-06-24 14:24 | XMS_ITS | Continuity of Care Document ---
Author Organization [facility] Address [address] [place] [address]- Care Team Providers Care Television Parts Tester Name Role Phone Vivi HENNING, Celestina Givens Primary Care Physician Encounter [facility] Date(s): 12/28/23 - 01/27/24 [facility] [address] [place] [address]- Allergies, Adverse Reactions, Alerts No Known Allergies [...] 08/21/22 Given tetanus/diphtheria/pertussis, acel(Tdap) 7 08/13/12 Given MEQR-SaG-9uFRB 12y+ bivalent booster vax 06/14/22 Recorded SARS-CoV-2 mRNA (cpywsga-wqpn-cvuye) vax 02/14/22 Recorded SARS-CoV-2 (COVID-19) mRNA BNT-162b2 vac 05/06/21 Given SARS-CoV-2 (COVID-19) mRNA BNT-162b2 vac 11/04/20 Recorded SARS-CoV-2 (COVID-19) mRNA BNT-162b2 vac 10/14/20 Recorded pneumococcal 23-valent vaccine 8 04/07/19 Given 1Result Comment: screening negative 2Result Comment: [facility]# [id number] 3Result Comment: [05/25/2018] [facility] lot number [id number] exp 01/26/2019 [facility] 08579-158-56 4Result Comment: [08/20/2017] [facility] 81793-450-38 5Admin Note: VIM dated 01/29/12 GIVEN TODAY 6Result Comment: [facility]# [id number] 7Admin Note: VIM dated 08/22/11 GIVEN TODAY 8Result Comment: [facility]#[id number] Medications acetaminophen 500 mg oral capsule 2 [...] Refills, Soft Stop, 12/06/23 17:28:00 EDT, [facility]/pharmacy #5, Partial fill upon patient request if [...] Pharmacy Electronically, [facility]/pharmacy #2024, Partial fill upon patient request if the presc... Start Date: 05/17/23 Stop Date: 05/17/24 Status: Ordered diclofenac 1% topical gel See Instructions, APPLY TO AFFECTED AREA 4 TIMES A DAY, # 100 Gm, 1 Refills, Maintenance, 11/07/23 7:48:00 EDT, [facility]/pharmacy #2024, 25, APPLY TO AFFECTED AREA 4 [...] Gm, 0 Refills, Maintenance, 02/28/21 16:31:00 EDT, [place], Partial fill upon patient request if the prescription is for... Start Date: 02/28/21 Status: Ordered FLUoxetine 10 mg oral capsule 1, capsule, By Mouth, Daily, INSTR:TO BE TAKEN WITH 20MG CAPSULES TO EQUAL 30MG DAILY, # 90 capsule, Refills 1, Maintenance, 01/25/24 9:11:00 EDT, Route to Pharmacy Electronically, [facility], 157.5, cm, 01/22/24 10:31:00 EDT, Height, 145.9, kg,... Start Date: 01/25/24 Status: Ordered gabapentin 300 mg oral capsule 600 mg, 2, capsule, By Mouth, 3 times a day, # 180 capsule, Refills 3, Tot. Refills 3, Maintenance,08/25/22 22:35:00 EST, Route to Pharmacy Electronically, [facility]/pharmacy #2024, Partial fill upon patient request if [...] Refills, Maintenance, 12/28/23 16:17:00 EDT, [facility], 157.5, cm, 10/18/23 15:15:00 EDT, Height, 145.9, [...] may filll this prescription for fewer pills. [facility] # [facility], Refills [...] Code MRI Safety Implantable Status Assigning Authority [id number] 731 Unknown [id number] Unknown 08/26/24 Unknown Unknown Active GS1 Patient Care team information Care Team Personnel Name: Celestina Trinidad MD Position: [facility] Physician - Primary Care Member Role: PCP Address: Address: [address] [place] [address] Name: Hemalatha Lucas RN Position: [facility] RN Member Role: Primary Care Nurse Name: Lauren Mack RN Position: [facility] AMB Nurse Member Role: Primary Care Nurse Name: Madelaine Ruiz RN Position: [facility] RN Member Role: Primary Care Nurse Name: Lora Santiago RN Position: [facility] SN RN Member Role: Primary Care Nurse Name: Mayco Ro RN Position: [facility] RN Member Role: Primary Care Nurse Name: Heydi Potts RN Position: [facility] SN RN Member Role: Primary Care Nurse Name: Janice Romano LPN Position: [facility] RN Member Role: Primary Care Nurse Name: Nadya Low RN Position: [facility] RN Member Role: Primary Care Nurse Name: Mirna Greenfield RN Position: [facility] RN Member Role: Primary Care Nurse Name: Nessa Bonilla RN Position: [facility] Senior Technical Trainer Member Role: Primary Care Nurse Care Team Related Persons Name: DINESH SARGENT Address: home [address] [place] [address] Name: BON DE Address: home [address] [address]
--- OUTSIDE RECORDS SUMMARY | 2024-06-24 14:24 | XMS_ITS | Continuity of Care Document ---
Author Organization [facility] em Address Unknown Care Team Providers Care Paste Worker Name Role Phone Celestina Trinidad MD Primary Care Physician Encounter [facility] Date(s): 06/08/23 - 06/15/23 [facility] Encounter Diagnosis Encounter for surgical aftercare following surgery of digestive system(Discharge Diagnosis) - 06/08/23 Elevated blood pressure reading(Discharge Diagnosis) - 06/08/23 Attending Physician: Yasemin Diaz MD Admitting Physician: Yasemin Diaz MD Allergies, Adverse Reactions, Alerts No Known Allergies Immunizations Given and Recorded Vaccine Date Status Refusal Reason tetanus/diphtheria/pertussis, acel(Tdap) 1 08/21/22 Given tetanus/diphtheria/pertussis, acel(Tdap) 2 08/13/12 Given [id number] 12y+ bivalent booster vax 06/14/22 Recorded influenza [...] inactivated 6 07/31/12 Gi hali SARS-CoV-2 mRNA (ungifbx-qtys-dsfas) vax 02/14/22 Recorded SARS-CoV-2 (COVID-19) mRNA BNT-162b2 vac 05/06/21 Given SARS-CoV-2 (COVID-19) mRNA BNT-162b2 vac 11/04/20 Recorded SARS-CoV-2 (COVID-19) mRNA BNT-162b2 vac 10/14/20 Recorded pneumococcal 23-valent vaccine 7 04/07/19 Given 1Result Comment: [facility]# [id number] 2Admin Note: VIM dated 08/22/11 GIVEN TODAY 3Result Comment: [facility]# [id number] 4Result Comment: [05/25/2018] [employer] lot number [id number] exp 01/26/2019 [facility] [id number] 5Result Comment: [08/20/2017] [facility] [id number] 6Admin Note: VIM dated 01/29/12 GIVEN TODAY 7Result Comment: [facility]#[id number] Medications acetaminophen 500 mg oral capsule 2 [...] Stop, 04/10/2215:14:00 EDT, Route to Pharmacy Electronically, [id number], [facility]/pharmacy #2025, 158, cm, 04/10/22 14:56:00 EDT, Height, [...] 06/17/23 15:49:00 EST, 06/12/23 15:49:00 EST, Tablet, [facility]/pharmacy #2024, Partial fill upon [...] EDT, Route to Pharmacy Electronically, [facility]/pharmacy #2024, Partial fill upon patient request if the presc... Start Date: 05/17/23 Stop Date: 05/17/24 Status: Ordered diclofenac 1% topical gel See Instructions, APPLY TOPICALLY 4 TIMES A DAY, # 100 Gm, 1 Refills, Maintenance, 06/05/23 10:25:00 EST, [facility]/pharmacy #2024, 50, APPLY TOPICALLY 4 TIMES A DAY, 157.5, cm, 05/22/23 7:39:00 EDT, Height, 145.9, kg, 05/22/23 7:39:00 EDT, Dry Weight Start Date: 06/05/23 Status: Ordered Flonase 50 mcg/inh nasal spray See Instructions, 2 sprays Nares twice daily x 1 week, then once daily x 1-2 weeks until symptoms improve, # 16 Gm, 0 Refills, Maintenance, 02/28/21 16:31:00 EDT, [place], [facility]/pharmacy #202, Partial fill upon patient request if the prescription is for... Start Date: 02/28/21 Status: Ordered FLUoxetine 10 mg oral capsule 10 mg, 1, capsule, By Mouth, Daily, to be taken with 20mg capsules to equal 30mg daily, # 90 capsule, Refills 1, Tot. Refills 1, Maintenance, 04/03/23 11:25:00 EDT, Route to Pharmacy Electronically, [facility]/pharmacy #202, Partial fill upon patient reques... Start Date: 04/03/23 Status: Ordered FLUoxetine 20 mg oral capsule 1, capsule, By Mouth, Daily, # 90 capsule, Refills 1, Tot. Refills 1, Maintenance, 04/03/23 11:23:00 EDT, Route to Pharmacy Electronically, [facility]/pharmacy #2024, 157, cm, 03/14/23 11:02:00 EDT, Height,145, kg, 08/29/22 20:13:00 EST, Dry Weight Start Date: 04/03/23 Status: Ordered gabapentin 300 mg oral capsule 600 mg, 2, capsule, By Mouth, 3 times a day, # 180 capsule, Refills 3, Tot. Refills 3, Maintenance,08/25/22 22:35:00 EST, Route to Pharmacy Electronically, [facility]/pharmacy #202, Partial fill upon patient request if [...] Refills, Maintenance, 02/27/23 7:25:00 EDT, [facility], 157, cm, 12/08/22 14:27:00 EDT, Height, 145, [...] 16:30:00 EST, Aerosol, Route to Pharmacy Electronically, [id number], [facility]/pharmacy #2024, 157.5, cm, 05/22/23 7:39:00 EDT, Height... Start Date: 06/07/23 Status: Ordered traMADol 50 mg oral tablet See Instructions, 2 tab po qam and one tab po q pm prn moderate to severe pain. 28 days. mass pat ok, # 81 tablet, 0 Refills, Maintenance, 05/14/23 16:14:00 EDT, [facility]/pharmacy #2024, 157, cm, 03/14/2311:02:00 EDT, Height, 145, kg, 08/29/22 20:13:00 E... Start Date: 05/14/23 Status: Ordered zolpidem 10 mg oral tablet 1 tablet = 10 mg, By Mouth, Daily at bedtime, PRN for sleep, for 30 days, # 30 tablet, 0 Refills, Acute 07/12/23 11:04:00 EST, 06/12/23 11:04:00 EST, Tablet, [facility]/pharmacy #2024, early refill for travel. Thanks., 157.5, [...] Dates Health Status Cl inical Service Informant Encounter for surgical aftercare following surgery of digestive system Discharge Diagnosis 06/08/23 Elevated blood pressure reading Discharge Diagnosis 06/08/23 Vital Signs Most recent to oldest [Reference Range]: 1 Height 157.5 cm (06/08/23 11:48 AM) Oxygen Saturation [94-100 %] 98 % (06/08/23 11:48 AM) Pulse Rate [55-90 bpm] 76 bpm (06/08/23 11:48 AM) Blood Pressure [90-138/55-84 mm Hg] 168/ 92mm Hg *H* (06/08/23 11:48 AM) Mode of Delivery (Oxygen) Room air (06/08/23 11:48 AM) Blood pressure sites Arm, right (06/08/23 11:48 AM) Social History Social History Type Response [...] Code MRI Safety Implantable Status Assigning Authority [id number] Unknown [id number] Unknown 08/26/24 Unknown Unknown Active GS1 Patient Care team information Care Team Personnel Name: Celestina Trinidad MD Position: [facility] Physician - Primary Care Member Role: PCP Address: Address: [address] [place] [address] Name: Hemalatha Lucas RN Position: [facility] RN Member Role: Primary Care Nurse Name: Lauren Mack RN Position: [facility] AMB Nurse Member Role: Primary Care Nurse Name: Madelaine Ruiz RN Position: [facility] RN Member Role: Primary Care Nurse Name: Lora Santiago RN Position: [facility] SN RN Member Role: Primary Care Nurse Name: Mayco Ro RN Position: [facility] RN Member Role: Primary Care Nurse Name: Heydi Potts RN Position: [facility] RN Member Role: Primary Care Nurse Name: Janice Romano LPN Position: [facility] RN Member Role: Primary Care Nurse Name: Nadya Low RN Position: [facility] RN Member Role: Primary Care Nurse Name: Mirna Greenfield RN Position: [facility] RN Member Role: Primary Care Nurse Name: Nessa Bonilla RN Position: [facility] Operations Agent Member Role: Primary Care Nurse Care Team Related Persons Name: DINESH SARGENT Address: home [address] [place] [address] Name: BON DE Address: home [address] [place] [id number]
--- OUTSIDE RECORDS SUMMARY | 2024-06-24 14:24 | XMS_ITS | Continuity of Care Document ---
Author Organization [facility] Address [address] [place] [address]- Care Team Providers Care Staff Pharmacist Name Role Phone Florentino AHN, Elder Hannah Primary Care Physician [facility] Date[facility]s): 06[facility]20 - 07/10/20 [facility] [address] [place], [place] [address] Allergies, Adverse Reactions, Alerts Substance Reaction [...] 08/13/12 Given 1Result Comment: [facility]# [id number] 2Result Comment: [05/25/2018] [facility] lot number [id number] exp 01/26/2019 [facility] [id number] 3Result Comment: [08/20/2017] [facility] [id number] 4Admin Note: VIM dated 01/29/12 GIVEN TODAY 5Result Comment: [facility]#[id number] 6Admin Note: VIM dated 08/22/11 GIVEN TODAY [...] PUFFS EVERY 6 HOURS NEEDED FOR WHEEZE, [facility]/pharmacy #2024 Start Date: 05/27/19 Status: Ordered diclofenac 1% topical gel 1 applicator, Topically, 4 times a day, # 100 Gm, 0 Refills, Maintenance, 06/08/20 15:07:00 EST, Gel, [facility]/pharmacy #2024, 161, cm, 06/08/20 13:48:00 EST, Height Start Date: 06/08/20 Status: Ordered FLUoxetine 20 mg oral capsule 20 mg, 1, capsule, By Mouth, Daily, # 30 capsule, Refills 5, Tot. Refills 5, Maintenance, 05/13/20 9:34:00 EDT, Route to Pharmacy Electronically, [facility]/pharmacy #2024, replacing 10mg dose, 161, cm, 05/13/20 8:28:00 EDT, Height Start Date: 05/13/20 Status: Ordered levothyroxine 0.137 mg oral tablet 1 tablet = 137 mcg, By Mouth, Daily, # 30 tablet, 3 Refills, Maintenance, 06/08/20 15:09:00 EST, Tablet, [facility]/pharmacy #2024, 161, cm, 06/08/20 13:48:00 EST, Height Start Date: 06/08/20 Stop Date: 10/06/20 Status: Ordered levothyroxine 125 mcg (0.125 mg) oral tablet 1 tablet = 125 mcg, By Mouth, Daily, # 30 tablet, 5 Refills, Maintenance, 05/13/20 9:34:00 EDT, Tablet, [facility]/pharmacy #2024, 161, cm, 05/13/20 8:28:00 EDT, Height Start Date: 05/13/20 Status: Ordered meloxicam 15 mg oral tablet 1 tablet = 15 mg, By Mouth, Daily, Take w food., # 30 tablet, 1 Refills, Maintenance, 07/08/20 11:31:00 EST, Tablet, [facility]/pharmacy #2025, Labs needed for further refills, [...] 08/04/19 17:54:00 EST, Route to Pharmacy Electronically, [facility]/pharmacy #2024, 161, cm, 08/04/19 14:44:00 EST, [...] 09/10/20 9:34:00 EST, 05/13/20 9:34:00 EDT, Tablet, [facility]/pharmacy #2024, 161, cm, 05/13/20 8:28:00 EDT, [...]
--- OUTSIDE RECORDS SUMMARY | 2024-06-24 14:24 | XMS_ITS | Continuity of Care Document ---
Author Organization [facility] Address [address] [place] [address]- Care Team Providers Care Ambulance Dispatcher Name Role Phone Vivi EHNNING, Celestina Givens Primary Care Physician [facility]counter [facility] Date(s): 06/13/22 - 07/13/22 [facility] [address] [place] [address]- Allergies, Adverse Reactions, Alerts No Known Allergies Immunizations Given and Recorded Vaccine Date Status Refusal Reason [id number] 12y+ bivalent booster vax 06/14/22 Recorded influenza [...] inactivated 4 07/31/12 Gi hali SARS-CoV-2 mRNA (yugglfw-cqah-hmmci) vax 02/14/22 Recorded SARS-CoV-2 (COVID-19) mRNA BNT-162b2 vac 05/06/21 Given SARS-CoV-2 (COVID-19) mRNA BNT-162b2 vac 11/04/20 Recorded SARS-CoV-2 (COVID-19) mRNA BNT-162b2 vac 10/14/20 Recorded pneumococcal 23-valent vaccine 5 04/07/19 Given tetanus/diphtheria/pertussis, acel(Tdap) 6 08/13/12 Given 1Result Comment: [facility]# [id number] 2Result Comment: [05/25/2018] [facility] lot number [id number] exp 01/26/2019 [facility] [id number] 3Result Comment: [08/20/2017] [facility] [id number] 4Admin Note: VIM dated 01/29/12 GIVEN TODAY 5Result Comment: [facility]#[id number] 6Admin Note: VIM dated 08/22/11 GIVEN TODAY [...] Stop, 04/10/2215:14:00 EDT, Route to Pharmacy Electronically, [id number], [facility]/pharmacy #202, 158, cm, 04/10/22 14:56:00 EDT, Height, 143,... Start Date: 04/10/22 Status: Ordered Amlodipine By Mouth, Daily, 0 Refills, Maintenance, 07/03/22 13:46:00 EST, Partial fill upon patient request if the prescription is for a schedule II opioid drug. Start Date: 07/03/22 Status: Ordered amLODIPine 10 mg oral tablet 10 mg, 1, tablet, By Mouth, Daily, new dosage, # 30 tablet, Refills 2, Tot. Refills 2, Maintenance,07/11/22 16:33:00 EST, Route to Pharmacy Electronically, [facility]/pharmacy #2024, Partial fill upon patient request if the prescription is for a schedule II... Start Date: 07/11/22 Status: Ordered Anoro Ellipta 62.5 mcg-25 mcg/inh inhalation powder 1 puffs, By Mouth, Daily, # 1 each, 6 Refills, Maintenance, 05/11/22 13:00:00 EDT, Powder, [facility], Partial fill upon [...] 07/17/22 11:52:00 EST, 07/07/22 11:52:00 EST, Tablet, [facility], Partial fill upon patient request if the prescription is for a schedule II opioid drug., 1... Start Date: 07/07/22 Stop Date: 07/17/22 Status: Ordered doxycycline hyclate 100 mg oral tablet 1 tablet = 100 mg, By Mouth, 2 times a day, # 20 tablet, 0 Refills, Maintenance, 07/13/22 21:24:00 EST, Tablet, [facility]/pharmacy #2024, Partial fill upon [...] Gm, 0 Refills, Maintenance, 02/28/21 16:31:00 EDT, [place], [facility]/pharmacy #202, Partial fill upon patient request if the prescription is for... Start Date: 02/28/21 Status: Ordered FLUoxetine 20 mg oral capsule See Instructions, TAKE 1 CAPSULE BY MOUTH EVERY DAY, # 90 capsule, Refills 1, Maintenance, 06/13/2215:26:00 EST, Instructions Replace Required Details, Route to Pharmacy Electronically, [facility], 158, cm, 06/09/22 11:21:00 EST, Height, 143, kg... Start Date: 06/13/22 Status: Ordered gabapentin 300 mg oral capsule 300 mg, 1, capsule, By Mouth, 3 times a day, # 90 capsule, Refills 1, Tot. Refills 1, Maintenance, 07/03/22 14:24:00 EST, Route to Pharmacy Electronically, [facility]/pharmacy #2025, Partial fill upon patient request if the prescription is for a schedule II... Start Date: 07/03/22 Status: Ordered levothyroxine 0.137 mg oral tablet 1 tablet = 137 mcg, By Mouth, Daily, 1 tab on days 1-6, take 2 tabs on day 7, # 102 tablet, 1 Refills, Maintenance, 07/03/22 14:41:00 EST, Tablet, [facility]/pharmacy #2025, Partial fill upon patient request if the prescription is for a schedule II opioid dr... Start Date: 07/03/22 Status: Ordered levothyroxine 0.137 mg oral tablet See Instructions, TAKE 1 TABLET BY MOUTH ON DAYS 1-6, THEN TAKE 2 TABLETS BY MOUTH ON DAY 7 Needs TSH lab work for refills, # 96 tablet, 0 Refills, 06/29/22 15:47:00 EST, [facility]/pharmacy #2024, 158, cm,06/09/22 11:21:00 EST, Height, 143, kg, 01/04/21 1... Start Date: 06/29/22 Status: Ordered meclizine 25 mg oral tablet See Instructions, PRN Dizziness, 1 tablet By Mouth 3 times a day, # 30 tablet, 0 Refills, Maintenance, 05/11/21 13:11:00 EDT, [facility]/pharmacy #2024, Partial fill upon patient request if the prescriptionis for a schedule II opioid drug., 160.02, cm, 0... Start Date: 05/11/21 Status: Ordered meloxicam 15 mg oral tablet See Instructions, TAKE 1 TABLET BY MOUTH DAILY WITH FOOD. LABS NEEDED FOR FURTHER REFILLS, # 30 tablet, 3 Refills, Maintenance, 06/08/22 14:55:00 EST, [facility], 158, cm, 06/08/22 14:23:00 EST, Height, 143, kg, 01/04/21 10:42:00 EDT, Dry Weight Start Date: 06/08/22 Status: Ordered oxyCODONE 5 mg oral tablet [...] tablet, 0 Refills, Maintenance, 07/11/22 17:21:00 EST, [facility]/pharmacy #2024, 158, cm, 07/07/22 11:19:00 EST, Height,143, kg, 01/04/21 10:42:00 EDT, Dry Weight Start Date: 07/11/22 Status: Ordered zolpidem 10 mg oral tablet [...] 07/19/22 13:40:00 EST, 03/21/22 13:40:00 EDT, Tablet, [facility]/pharmacy#2025, 158, cm, 03/02/22 11:38:00 EDT, Height, [...] MD Position: [facility] Primary Care Physician Member Role: PCP Address: Address: [address] [place] [id number] Name: Lauren Mack RN Position: [facility] [...] Name: Nessa Bonilla RN Position: [facility] Specialist Member Role: Primary Care Nurse Care Team Related Persons Name: ROSETTAROLADINESH Address: home [address] [place] [address] Name: BON DE Address: home [address] [address]
--- OUTSIDE RECORDS SUMMARY | 2024-06-24 14:24 | XMS_ITS | Continuity of Care Document ---
Author Organization [facility] Address [address] [place] [address]- Care Team Providers Care Nutritional Yeast Supervisor Name Role Phone Vivi HENNING, Celestina Givens Primary Care Physician Encounter [facility] Date(s): 09/21/22 - 10/21/22 [facility] [address] [place] [address]- Allergies, Adverse Reactions, Alerts No Known Allergies Immunizations Given and Recorded Vaccine Date Status Refusal Reason tetanus/diphtheria/pertussis, acel(Tdap) 1 08/21/22 Given tetanus/diphtheria/pertussis, acel(Tdap) 2 08/13/12 Given [id number]-DmF-3fHRV 12y+ bivalent booster vax 06/14/22 Recorded influenza [...] inactivated 6 07/31/12 Gi hali SARS-CoV-2 mRNA (xwlpdfs-xqiv-dmoht) vax 02/14/22 Recorded SARS-CoV-2 (COVID-19) mRNA BNT-162b2 vac 05/06/21 Given SARS-CoV-2 (COVID-19) mRNA BNT-162b2 vac 11/04/20 Recorded SARS-CoV-2 (COVID-19) mRNA BNT-162b2 vac 10/14/20 Recorded pneumococcal 23-valent vaccine 7 04/07/19 Given 1Result Comment: [facility]# [id number] 2Admin Note: VIM dated 08/22/11 GIVEN TODAY 3Result Comment: [facility]# [id number] 4Result Comment: [05/25/2018] [facility] lot number [id number] exp 01/26/2019 [facility] [id number] 5Result Comment: [08/20/2017] [facility] [id number] 6Admin Note: VIM dated 01/29/12 GIVEN TODAY 7Result Comment: [facility]#[id number] Medications acetaminophen 500 mg oral capsule 2 [...] Stop, 04/10/2215:14:00 EDT, Route to Pharmacy Electronically, [id number], [facility]/pharmacy #2025, 158, cm, 04/10/22 14:56:00 EDT, Height, 143,... Start Date: 04/10/22 Status: Ordered amLODIPine 5 mg oral tablet 1 tablet, By Mouth, Daily, # 30 tablet, 5 Refills, Maintenance, 08/24/22 20:08:00 EST, [facility], 159, cm, 08/21/22 11:38:00 EST, Height, 143, kg, 01/04/21 10:42:00 EDT, Dry Weight Start Date: 08/24/22 Status: Ordered budesonide-formoterol 80 mcg-4.5 mcg/inh inhalation aerosol with adapter 2, puffs, Inhalation, 2 times a day, PRN, use with spacer chamber, rinse mouth and throat after use, # 10.2 Gm, Refills 5, Tot. Refills 5, Maintenance, 09/12/22 11:06:00 EST, Aerosol, Route to Pharmacy Electronically, [id number]... Start Date: 09/12/22 Status: Ordered cilostazol 50 mg oral tablet 1 tablet = 50 mg, By Mouth, Daily, # 180 tablet, 0 Refills, Maintenance, 09/02/22 10:35:00 EST, Tablet, [facility]/pharmacy #2024, Partial [...] 13:30:00 EST, Route to Pharmacy Electronically, [facility]/pharmacy #5, Partial fill upon patient request if the p... Start Date: 08/31/22 Status: Ordered Flonase 50 mcg/inh nasal spray See Instructions, 2 sprays Nares twice daily x 1 week, then once daily x 1-2 weeks until symptoms improve, # 16 Gm, 0 Refills, Maintenance, 02/28/21 16:31:00 EDT, [place], [facility]/pharmacy #2025, Partial fill upon patient request if the prescription is for... Start Date: 02/28/21 Status: Ordered FLUoxetine 20 mg oral capsule See Instructions, TAKE 1 CAPSULE BY MOUTH EVERY DAY, # 90 capsule, Refills 1, Maintenance, 06/13/2215:26:00 EST, Instructions Replace Required Details, Route to Pharmacy Electronically, [facility], 158, cm, 06/09/22 11:21:00 EST, Height, 143, kg... Start Date: 06/13/22 Status: Ordered furosemide 20 mg oral tablet 1, tablet, By Mouth, Daily, MAY REPEAT IF NEEDED IN 2 HOURS, # 30 tablet, Refills 0, Maintenance, 10/18/22 21:31:00 EDT, Route to Pharmacy Electronically, [facility], 157, cm, 09/13/22 15:58:00 EST, Height, 145, kg, 08/29/22 20:13:00 EST, Dry Weight Start Date: 10/18/22 Status: Ordered gabapentin 300 mg oral capsule 600 mg, 2, capsule, By Mouth, 3 times a day, # 180 capsule, Refills 3, Tot. Refills 3, Maintenance,08/25/22 22:35:00 EST, Route to Pharmacy Electronically, [facility]/pharmacy #5, Partial fill upon patient request if the prescription is for a schedule II... Start Date: 08/25/22 Status: Ordered levothyroxine 0.137 mg oral tablet 1 tablet = 137 mcg, By Mouth, Daily, 1 tab on days 1-6, take 2 tabs on day 7, # 102 tablet, 1 Refills, Maintenance, 07/03/22 14:41:00 EST, Tablet, [facility]/pharmacy #202, Partial fill upon patient request if the prescription is for a schedule II opioid dr... Start Date: 07/03/22 Status: Ordered meclizine 25 mg oral tablet See Instructions, PRN Dizziness, 1 tablet By Mouth 3 times a day, # 30 tablet, 0 Refills, Maintenance, 05/11/21 13:11:00 EDT, [facility]/pharmacy #2024, Partial fill upon patient request if the prescriptionis for a schedule II opioid drug., 160.02, cm, 10/0... Start Date: 05/11/21 Status: Ordered meloxicam 15 mg oral tablet See Instructions, TAKE 1 TABLET BY MOUTH DAILY WITH FOOD. LABS NEEDED FOR FURTHER REFILLS, # 30 tablet, 3 Refills, Maintenance, 10/18/22 21:31:00 EDT, [facility], 157, cm, 09/13/22 15:58:00 EST,Height, 145, kg, [...] 16:29:00 EST, Route to Pharmacy Electronically, [facility]/pharmacy #2024, Partialfill upon patient request if the [...] Physician Member Role: PCP Address: Address: [address] [place] [id number] Name: Hemalatha Lucas RN Position: [facility] RN Member Role: Primary Care Nurse Name: Lauren Mack RN Position: [facility] Nurse Member Role: Primary Care [...] Bonilla RN Position: [facility] Crocheter Hand Member Role: Primary Care Nurse Care Team Related Persons Name: DINESH SARGENT Address: home [address] [place] [address] Name: BON DE Address: home [address] [address]
--- OUTSIDE RECORDS SUMMARY | 2024-06-24 14:24 | XMS_ITS | Continuity of Care Document ---
Author Organization [facility] Address [address] [place] [address]- Care Team Providers Care Pipe Manufacture Supervisor Name Role Phone Noe AHN, Mónica Graham Primary Care Physician Unava ilable [facility]counter [facility] Date(s): 12/17/21 - 01/16/22 [facility] [address] [place] [address]- Allergies, Adverse Reactions, Alerts No Known Allergies [...] 6 08/13/12 Given 1Result Comment: [facility]# [id number] 2Result Comment: [05/25/2018] [facility] lot number [id number] exp 01/26/2019 [facility] [id number] 3Result Comment: [08/20/2017] [facility] [id number] 4Admin Note: VIM dated 01/29/12 GIVEN TODAY 5Result Comment: [facility]#[id number] 6Admin Note: VIM dated 08/22/11 GIVEN TODAY [...] 100 Gm, 1 Refills, 09/19/21 12:51:00 EST, [facility]/pharmacy #2024, 25, APPLY TOPICALLY 4 TIMES A DAY, 160.02, cm, 07/25/21 16:20:00 EST, Height, 143, kg,01/04/21 10:42:00 EDT, Dry Weight Start Date: 09/19/21 Status: Ordered Flonase 50 mcg/inh nasal spray See Instructions, 2 sprays Nares twice daily x 1 week, then once daily x 1-2 weeks until symptoms improve, # 16 Gm, 0 Refills, Maintenance, 02/28/21 16:31:00 EDT, [place], [facility]/pharmacy #202, Partial fill upon patient request if the prescription is for... Start Date: 02/28/21 Status: Ordered FLUoxetine 20 mg oral capsule 20 mg, 1, capsule, By Mouth, Daily, Take with Fluoxetine 10mg for a total of 30mg, # 90 capsule, Refills 1, Tot. Refills 1, Maintenance, 12/30/21 12:34:00 EDT, Route to Pharmacy Electronically, [facility]/pharmacy #2025, replacing 10mg dose, 160.02, cm, 1... Start Date: 12/30/21 Status: Ordered levothyroxine 0.137 mg oral tablet See Instructions, TAKE 1 TABLET BY MOUTH ON DAYS 1-6, THEN TAKE 2 TABLETS BY MOUTH ON DAY 7, # 96 tablet, 1 Refills, [facility] STORE 23744, 160.02, cm, 10/04/21 10:38:00 EST, Height, 143, [...]
--- OUTSIDE RECORDS SUMMARY | 2024-06-24 14:24 | XMS_ITS | Continuity of Care Document ---
Author Organization [facility] Address [address] [place] [address]- Care Team Providers Care Teacher Adventure Education Name Role Phone Noe AHN, Mónica Graham Primary Care Physician Encounter [facility] Date(s): 04/06/21 - 05/06/21 [facility] [address] [place] [address]- Allergies, Adverse Reactions, Alerts Substance Reaction Severity [...] acel(Tdap) 6 08/13/12 Given 1Result Comment: [facility]# [id number] 2Result Comment: [05/25/2018] [facility] lot number [id number] exp 01/26/2019 [facility] [id number] 3Result Comment: [08/20/2017] [facility] [id number] 4Admin Note: VIM dated 01/29/12 GIVEN TODAY 5Result Comment: [facility]#[id number] 6Admin Note: VIM dated 08/22/11 GIVEN TODAY [...] 10/27/20 14:48:00 EDT, Route to Pharmacy Electronically, [id number], [facility]/pharmacy #2024, 160.02, cm, 10/19/20 11:04:00 EDT, Height, 156... Start Date: 10/27/20 Status: Ordered betamethasone-clotrimazole 0.05%-1% topical cream 1 application, Topically, 2 times a day, # 45 Gm, 0 Refills, Maintenance, 12/27/20 14:13:00 EDT, [place], [facility]/pharmacy #2024, Partial fill [...] Gm, 0 Refills, Maintenance, 02/28/21 16:31:00 EDT, [place], [facility]/pharmacy #202, Partial fill upon patient request if the prescription is for... Start Date: 02/28/21 Status: Ordered FLUoxetine 10 mg oral capsule 10 mg, 1, capsule, By Mouth, Daily, Take with 20mg capsule for total of 30mg daily, # 90 capsule, Refills 1, Tot. Refills 1, Maintenance, 05/04/21 16:44:00 EDT, Route to Pharmacy Electronically, [facility]/pharmacy #202, Partial fill upon patient request if... Start Date: 05/04/21 Status: Ordered FLUoxetine 20 mg oral capsule 20 mg, 1, capsule, By Mouth, Daily, Take with Fluoxetine 10mg for a total of 30mg, # 90 capsule, Refills 1, Tot. Refills 1, Maintenance, 05/04/21 16:44:00 EDT, Route to Pharmacy Electronically, [facility]/pharmacy #202, replacing 10mg dose, 160.02, cm, 080... Start Date: 05/04/21 Status: Ordered levothyroxine 0.137 mg oral tablet See Instructions, Take 1 tablet by mouth on days 1-6, then take 2 tablets by mouth on day 7, # 121 tablet, 5 Refills, Maintenance, 12/07/20 9:46:00 EDT, [facility]/pharmacy #202, 160.02, cm, 10/19/20 11:04:00 EDT, Height, 156.81, kg, 10/19/20 11:04:00 EDT,... Start Date: 12/07/20 Status: Ordered meloxicam 15 mg oral tablet 1 tablet, By Mouth, Daily, WITH FOOD., # 30 tablet, 1 Refills, [facility] STORE [id number], 160.02, cm, 02/28/21 15:45:00 EDT, Height, 143, [...] 08/04/19 17:54:00 EST, Route to Pharmacy Electronically, [facility]/pharmacy #2025, 161, cm, 08/04/19 14:44:00 EST, Height Start Date: 08/04/19 Stop Date: 08/18/19 Status: Ordered traMADol 50 mg oral tablet 2 tablet = 100 mg, By Mouth, Every 12 hours, as needed for pain masspat checked, # 120 tablet, 2 Refills, Maintenance, 02/10/21 12:37:00 EDT, [facility]/pharmacy #2025, 160.02, cm, 01/04/21 10:42:00 EDT, [...]
--- OUTSIDE RECORDS SUMMARY | 2024-06-24 14:24 | XMS_ITS | Continuity of Care Document ---
Author Organization [facility] Address [address] [place] [address]- Care Team Providers Care Employee Relations Advisor Name Role Phone Vivi HENNING, Celestina Givens Primary Care Physician Encounter [facility] Date(s): 05/14/23 - 06/13/23 [facility] [address] [place] [address]- Allergies, Adverse Reactions, Alerts No Known Allergies Immunizations Given and Recorded Vaccine Date Status Refusal Reason tetanus/diphtheria/pertussis, acel(Tdap) 1 08/21/22 Given tetanus/diphtheria/pertussis, acel(Tdap) 2 08/13/12 Given [id number] 12y+ bivalent booster vax 06/14/22 Recorded influenza [...] inactivated 6 07/31/12 Gi hali SARS-CoV-2 mRNA ([id number]-klgj-[id number]) vax 02/14/22 Recorded SARS-CoV-2 (COVID-19) mRNA BNT-162b2 vac 05/06/21 Given SARS-CoV-2 (COVID-19) mRNA BNT-162b2 vac 11/04/20 Recorded SARS-CoV-2 (COVID-19) mRNA BNT-162b2 vac 10/14/20 Recorded pneumococcal 23-valent vaccine 7 04/07/19 Given 1Result Comment: [facility]# [id number] 2Admin Note: VIM dated 08/22/11 GIVEN TODAY 3Result Comment: [facility]# [id number] 4Result Comment: [05/25/2018] [employer] lot number [id number] exp 01/26/2019 [facility] [id number] 5Result Comment: [08/20/2017] [facility] [id number] 6Admin Note: VIM dated 01/29/12 GIVEN TODAY 7Result Comment: [facility]#[id number] Medications acetaminophen 500 mg oral capsule 2 [...] Stop, 04/10/2215:14:00 EDT, Route to Pharmacy Electronically, [id number], [facility]/pharmacy #2025, 158, cm, 04/10/22 [...] 06/17/23 15:49:00 EST, 06/12/23 15:49:00 EST, Tablet, [facility]/pharmacy #2024, Partial [...] Gm, 1 Refills, Maintenance, 06/05/23 10:25:00 EST, [facility]/pharmacy #2025, 50, APPLY TOPICALLY 4 TIMES A DAY, 157.5, cm, 05/22/23 7:39:00 EDT, Height, 145.9, kg, 05/22/23 7:39:00 EDT, Dry Weight Start Date: 06/05/23 Status: Ordered Flonase 50 mcg/inh nasal spray See Instructions, 2 sprays Nares twice daily x 1 week, then once daily x 1-2 weeks until symptoms improve, # 16 Gm, 0 Refills, Maintenance, 02/28/21 16:31:00 EDT, [place], [facility]/pharmacy #202, Partial fill upon patient request if the prescription is for... Start Date: 02/28/21 Status: Ordered FLUoxetine 10 mg oral capsule 10 mg, 1, capsule, By Mouth, Daily, to be taken with 20mg capsules to equal 30mg daily, # 90 capsule, Refills 1, Tot. Refills 1, Maintenance, 04/03/23 11:25:00 EDT, Route to Pharmacy Electronically, [facility]/pharmacy #2024, Partial fill upon patient reques... Start Date: 04/03/23 Status: Ordered FLUoxetine 20 mg oral capsule 1, capsule, By Mouth, Daily, # 90 capsule, Refills 1, Tot. Refills 1, Maintenance, 04/03/23 11:23:00 EDT, Route to Pharmacy Electronically, [facility]/pharmacy #2024, 157, cm, 03/14/23 11:02:00 [...] Refills, Maintenance, 02/27/23 7:25:00 EDT, [facility], 157, cm, 12/08/22 14:27:00 EDT, Height, 145, [...] 16:30:00 EST, Aerosol, Route to Pharmacy Electronically, [id number], [facility]/pharmacy #2024, 157.5, cm, 05/22/23 7:39:00 EDT, Height... Start Date: 06/07/23 Status: Ordered traMADol 50 mg oral tablet See Instructions, 2 tab po qam and one tab po q pm prn moderate to severe pain. 28 days. mass pat ok, # 81 tablet, 0 Refills, Maintenance, 05/14/23 16:14:00 EDT, [facility]/pharmacy #2024, 157, cm, 03/14/2311:02:00 EDT, Height, 145, kg, 08/29/22 20:13:00 E... Start Date: 05/14/23 Status: Ordered zolpidem 10 mg oral tablet 1 tablet = 10 mg, By Mouth, Daily at bedtime, PRN for sleep, for 30 days, # 30 tablet, 0 Refills, Acute 07/12/23 11:04:00 EST, 06/12/23 11:04:00 EST, Tablet, [facility]/pharmacy #2024, early refill for travel. [...] Code MRI Safety Implantable Status Assigning Authority [id number] Unknown [id number] Unknown 08/26/24 Unknown Unknown Active GS1 Patient Care team information Care Team Personnel Name: Celestina Trinidad MD Position: [facility] Physician - Primary Care Member Role: PCP Address: Address: [address] [place] [address] Name: Hemalatha Lucas RN [facility] Potts RN Position: [facility] RN Member Role: Primary Care Nurse Name: Janice Romano LPN Position: [facility] RN Member Role: Primary Care Nurse Name: Nadya Low RN Position: [facility] RN Member Role: Primary Care Nurse Name: Mirna Greenfield RN Position: [facility] RN Member Role: Primary Care Nurse Name: Nessa Bonilla RN Position: [facility] Stamp Press Operator Member Role: Primary Care Nurse Care Team Related Persons Name: ROSETTADINESH JOHNSON Address: home [address] [id number] Name: BON DE Address: home [address] [address]
--- OUTSIDE RECORDS SUMMARY | 2024-06-24 14:24 | XMS_ITS | Continuity of Care Document ---
Author Organization [facility] Address [address] [place] [address]- Care Team Providers Care Erosion Control Coordinator Name Role Phone Florentino AHN, Elder Hannah Primary Care Physician Encounter [facility] Date(s): 03/22/21 - 04/21/21 [facility] [address] [place] [address]- Attending Physician: Calixto Beltran Admitting Physician: AdmCalixto [...] 1Result Comment: [facility]# [id number] 2Result Comment: [05/25/2018] [facility] lot number [id number] exp 01/26/2019 [facility] [id number] 3Result Comment: [08/20/2017] [facility] [id number] 4Admin Note: VIM dated 01/29/12 GIVEN TODAY 5Result Comment: [facility]#[id number] 6Admin Note: VIM dated 08/22/11 GIVEN TODAY [...] 10/27/20 14:48:00 EDT, Route to Pharmacy Electronically, [id number], [facility]/pharmacy #2024, 160.02, cm, 10/19/20 11:04:00 EDT, [...] Gm, 0 Refills, Maintenance, 02/28/21 16:31:00 EDT, [place], Partial fill upon patient request if the prescription is for... Start Date: 02/28/21 Status: Ordered FLUoxetine 10 mg oral capsule 10 mg, 1, capsule, By Mouth, Daily, Take with 20mg capsule for total of 30mg daily, # 90 capsule, Refills 0, Tot. Refills 0, Maintenance, 03/11/21 12:00:00 EDT, Route to Pharmacy Electronically, [facility]/pharmacy #2025, Partial fill upon patient request if... Start Date: 03/11/21 Status: Ordered FLUoxetine 20 mg oral capsule 20 mg, 1, capsule, By Mouth, Daily, # 30 capsule, Refills 5, Tot. Refills 5, Maintenance, 12/20/20 14:39:00 EDT, [facility] dose, 160.02, cm,12/20/20 11:59:00 EDT, Height, 156.81, kg, 10/19/20... Start Date: 12/20/20 Status: Ordered levothyroxine 0.137 mg oral tablet See Instructions, Take 1 tablet by mouth on days 1-6, then take 2 tablets by mouth on day 7, # 121 tablet, 5 Refills, Maintenance, 12/07/20 9:46:00 EDT, [facility]/pharmacy #202, 160.02, cm, 10/19/20 11:04:00 EDT, Height, 156.81, kg, 10/19/20 11:04:00 EDT,... Start Date: 12/07/20 Status: Ordered meloxicam 15 mg oral tablet 1 tablet, By Mouth, Daily, WITH FOOD., # 30 tablet, 1 Refills, [facility] STORE 59635, 160.02, cm, 02/28/21 15:45:00 EDT, Height, 143, [...] 17:54:00 EST, Route to Pharmacy Electronically, [facility]/pharmacy #2024, 161, cm, 08/04/19 14:44:00 EST, [...]
--- OUTSIDE RECORDS SUMMARY | 2024-06-24 14:24 | XMS_ITS | Continuity of Care Document ---
Author Organization [facility] Address [address] [place] [address]- Care Team Providers Care Med Specialist Name Role Phone Celestina Trinidad MD Primary Care Physician [place] [facility] Date(s): 07/07/22 - 07/14/22 [facility] [address] [place] [address]- Encounter Diagnosis Ischemic finger(Discharge Diagnosis) - 07/07/22 Attending Physician: Norberto Baugh MD Allergies, Adverse Reactions, Alerts No Known Allergies Immunizations Given and Recorded Vaccine Date Status Refusal Reason [id number] 12y+ bivalent booster vax 06/14/22 Recorded influenza [...] inactivated 4 07/31/12 Gi hali SARS-CoV-2 mRNA (azvejdn-kfeb-bjnmx) vax 02/14/22 Recorded SARS-CoV-2 (COVID-19) mRNA BNT-162b2 vac 05/06/21 Given SARS-CoV-2 (COVID-19) mRNA BNT-162b2 vac 11/04/20 Recorded SARS-CoV-2 (COVID-19) mRNA BNT-162b2 vac 10/14/20 Recorded pneumococcal 23-valent vaccine 5 04/07/19 Given tetanus/diphtheria/pertussis, acel(Tdap) 6 08/13/12 Given 1Result Comment: [facility]# [id number] 2Result Comment: [05/25/2018] [facility] lot number [id number] exp 01/26/2019 [facility] [id number] 3Result Comment: [08/20/2017] [facility] [id number] 4Admin Note: VIM dated 01/29/12 GIVEN TODAY 5Result Comment: [facility]#[id number] 6Admin Note: VIM dated 08/22/11 GIVEN TODAY [...] Stop, 04/10/2215:14:00 EDT, Route to Pharmacy Electronically, [id number], [facility]/pharmacy #2025, 158, cm, 04/10/22 14:56:00 EDT, Height, [...] Maintenance,07/11/22 16:33:00 EST, Route to Pharmacy Electronically, [facility]/pharmacy #202, Partial fill upon patient request [...] 100 Gm, 1 Refills, 09/19/21 12:51:00 EST, [facility]/pharmacy #2024, 25, APPLY TOPICALLY 4 TIMES A DAY, 160.02, cm, 07/25/21 16:20:00 EST, Height, 143, kg,01/04/21 10:42:00 EDT, Dry Weight Start Date: 09/19/21 Status: Ordered doxycycline hyclate 100 mg oral tablet 1 tablet = 100 mg, By Mouth, 2 times a day, for 10 days, # 20 tablet, 0 Refills, Acute 07/17/22 11:52:00 EST, 07/07/22 11:52:00 EST, Tablet, [facility]/pharmacy #2025, Partial fill upon patient request if the prescription is for a schedule II opioid drug., 1... Start Date: 07/07/22 Stop Date: 07/17/22 Status: Ordered doxycycline hyclate 100 mg oral tablet 1 tablet = 100 mg, By Mouth, 2 times a day, # 20 tablet, 0 Refills, Maintenance, 07/13/22 21:24:00 EST, Tablet, [facility]/pharmacy #2025, Partial fill upon patient request if the prescription is for a schedule II opioid drug., 158, cm, 07/13/22 13:46:00 EST... Start Date: 07/13/22 Stop Date: 07/23/22 Status: Ordered Flonase 50 mcg/inh nasal spray See Instructions, 2 sprays Nares twice daily x 1 week, then once daily x 1-2 weeks until symptoms improve, # 16 Gm, 0 Refills, Maintenance, 02/28/21 16:31:00 EDT, [place], [facility]/pharmacy #2025, Partial fill upon patient request if the prescription is for... Start Date: 02/28/21 Status: Ordered FLUoxetine 20 mg oral capsule See Instructions, TAKE 1 CAPSULE BY MOUTH EVERY DAY, # 90 capsule, Refills 1, Maintenance, 06/13/2215:26:00 EST, Instructions Replace Required Details, Route to Pharmacy Electronically, [facility] STORE [facility]8979, 158, cm, 06/09/22 11:21:00 EST, Height, 143, kg... Start Date: 06/13/22 Status: Ordered gabapentin 300 mg oral capsule 300 mg, 1, capsule, By Mouth, 3 times a day, # 90 capsule, Refills 1, Tot. Refills 1, Maintenance, 07/03/22 14:24:00 EST, Route to Pharmacy Electronically, [facility]/pharmacy #2025, Partial fill upon patient request if the prescription is for a schedule II... Start Date: 07/03/22 Status: Ordered levothyroxine 0.137 mg oral tablet 1 tablet = 137 mcg, By Mouth, Daily, 1 tab on days 1-6, take 2 tabs on day 7, # 102 tablet, 1 Refills, Maintenance, 07/03/22 14:41:00 EST, Tablet, [facility]/pharmacy #2025, Partial fill upon patient request if the prescription is for a schedule II opioid dr... Start Date: 07/03/22 Status: Ordered levothyroxine 0.137 mg oral tablet See Instructions, TAKE 1 TABLET BY MOUTH ON DAYS 1-6, THEN TAKE 2 TABLETS BY MOUTH ON DAY 7 Needs TSH lab work for refills, # 96 tablet, 0 Refills, 06/29/22 15:47:00 EST, [facility]/pharmacy #5, 158, cm,06/09/22 11:21:00 EST, Height, 143, kg, 01/04/21 1... Start Date: 06/29/22 Status: Ordered meclizine 25 mg oral tablet See Instructions, PRN Dizziness, 1 tablet By Mouth 3 times a day, # 30 tablet, 0 Refills, Maintenance, 05/11/21 13:11:00 EDT, [facility]/pharmacy #2024, Partial fill upon patient request if the prescriptionis for a schedule II opioid drug., 160.02, cm, 10/0... Start Date: 05/11/21 Status: Ordered meloxicam 15 mg oral tablet See Instructions, TAKE 1 TABLET BY MOUTH DAILY WITH FOOD. LABS NEEDED FOR FURTHER REFILLS, # 30 tablet, 3 Refills, Maintenance, 06/08/22 14:55:00 EST, [facility], 158, cm, 06/08/22 14:23:00 EST, Height, [...] tablet, 0 Refills, Maintenance, 07/11/22 17:21:00 EST, [facility]/pharmacy #2024, 158, cm, 07/07/22 11:19:00 EST, Height,143, kg, 01/04/21 10:42:00 EDT, Dry Weight Start Date: 07/11/22 Status: Ordered zolpidem 10 mg oral tablet 1 tablet = 10 mg, By Mouth, Daily at bedtime, PRN for sleep, for 30 days, masspat check may fill less, # 30 tablet, 2 Refills, Acute 07/19/22 9:22:00 EST, 04/20/22 9:22:00 EDT, Tablet, [facility], 158, cm, 04/10/22 14:56:00 EDT, Height, 143, kg... Start Date: 04/20/22 Stop Date: 07/19/22 Status: Ordered zolpidem 10 mg oral tablet 1 tablet = 10 mg, By Mouth, Daily at bedtime, PRN for sleep, for 30 days, masspat check may fill less, # 30 tablet, 3 Refills, Acute 07/19/22 13:40:00 EST, 03/21/22 13:40:00 EDT, Tablet, [facility]/pharmacy#2025, 158, cm, 03/02/22 11:38:00 EDT, Height, 143... [...] Dates Health Status Cl inical Service Informant Ischemic finger Discharge Diagnosis 07/07/22 Vital Signs Most recent to oldest [Reference Range]: 1 Height 158 cm (07/07/22 11:19 AM) Oxygen Saturation [94-100 %] 99 % (07/07/22 11:19 AM) Pulse Rate [55-90 bpm] 64 bpm (07/07/22 11:19 AM) Blood Pressure [90-138/55-84 mm Hg] 156/ 91mm Hg *H* (07/07/22 11:19 AM) Blood pressure sites Arm, right (07/07/22 11:19 AM) Weight Obtained Via Standing scale (07/07/22 11:19 AM) Social History Social History Type Response Smoking Status Former smoker, quit more than 30 days ago; Other: smoked up to pack a day x 25 years; entered on: 11/14/21 Sex Note * Ada Zheng: PERFORM, SIGN, VERIFY Event Display: Patient Education/Instruction Authored Date: [id number] [facility] *[facility] Clinical Summary Name JORGE ALBERTO SAHU Age 62 Years 1960 PCP Celestina Trinidad MD PCP Visit Date 07/07/2022 11:18:00 Patient Instructions increase gabapentin to two 300 mg 3x a day oxycodone 10 mg 3x a day as needed start antibiotic follow up next week w/ PCP Additional Instructions: Scheduled Appointments?? Future Appointments ?*[facility] ?[address]??[place],??[place],??[address] ?Phone:??--?Fax:??-- ?Appt. Date:??07/13/2022?1:40 PM ?Scheduled Provider:??Celestina Trinidad MD ?*[facility] ?[address]??[place],??[place],??[address] ?Phone:??--?Fax:??-- ?Appt. Date:??07/14/2022?11:40 AM ?Scheduled Provider:??Gera HENNING, Hector Graham Follow-Up Instructions ?? With: Address: When: Celestina Trinidad [facility] [place] [address] Business (1) 07/13/2022 1:40 PM Diagnosis Other disorder of circulatory system Medications: Please continue your medications until treatment is completed or stopped by your provider. Discuss any questions related to medications with your provider. New Medications [facility], [address] [place] [id number], [phone] Doxycycline (doxycycline hyclate 100 mg oral tablet) 1 tab(s) Oral twice a day for 10 Days. Refills: 0. Next Dose: Medications to Continue Taking That Have Changed [facility]/pharmacy #2024, [address], [place] [id number], [phone] - Amlodipine (amLODIPine 5 mg oral tablet) 1 tab(s) Oral Daily. Refills: 1. Next Dose: - Oxycodone (oxyCODONE 10 mg oral tablet) 1 tab(s) Oral every 8 hours. Refills: 0. Next Dose: These medications were not printed or sent to your pharmacy - Amlodipine Oral Daily. Next Dose: - Oxycodone (oxyCODONE 5 mg oral tablet) 1 tab(s) Oral every 6 hours. Next Dose: Medications to Continue with No Changes These medications were not printed or sent to your pharmacy Acetaminophen (acetaminophen 500 mg oral capsule) 2 capsule Oral twice a day. Next Dose: Albuterol (albuterol CFC free 90 mcg/inh inhalation aerosol) 2 puff(s) Inhalation every 4 hours as needed Wheezing/Shortness of Breath. Refills: 11. Next Dose: Cilostazol (cilostazol 100 mg oral [...] FOR FURTHER REFILLS. Refills: 3. Next Dose: Tramadol (traMADol 50 mg oral [...] Height 158 cm Weight BMI Blood Pressure 156 mm Hg/91 mm Hg Temperature Pulse Rate 64 bpm Respiratory Rate 02 Sat Mode of Delivery 99 %/ You can now view a summary of your hospital visit from the comfort of your home through a free online portal called [employer]. [employer] is a website that allows you to securely view your medical information including discharge summary, medications and follow-up visits. ??You can alsosend a secure electronic message to your doctor???s office to request appointments, renew medications or just ask a question. You can enroll at [email or web address] or register during your next office visit. [...] primary care provider, you may find a [facility] provider by calling [facility] [employer] Link at [phone]. For information about the plan of care [...] Celestina Trinidad MD Position: [facility] Primary Care Physician Member Role: PCP Address: Address: [address] [place] [address]- Name: Lauren Mack RN Position: [facility] [...] Name: Nessa Bonilla RN Position: [facility] [employer] Assembler Member Role: Primary Care Nurse Care Team Related Persons Name: DINESH SARGENT Address: home [address] [place] [address] Name: BON DE Address: home [address] [address]
--- OUTSIDE RECORDS SUMMARY | 2024-06-24 14:24 | XMS_ITS | Continuity of Care Document ---
Author Organization [facility] Geovanna liana Address [address] [place] [address] ve [address] [place] [address]- Care Team Providers Care Esthetician Name Role Phone Kareen HENNING, Patrick Graham Primary Care Physician [phone] [facility]counter [facility] Date[facility]s): 03/16/20 - 04/15/20 [facility] [address] [place] [address]- [facility] Attending Physician: Calixto Beltran Admitting Physician: AdmCalixto [...] Given 1Result Comment: [facility]# [id number] 2Result Comment: [05/25/2018] [facility] lot number [id number] exp 01/26/2019 [facility] [id number] 3Result Comment: [08/20/2017] [facility] [id number] 4Admin Note: VIM dated 01/29/12 GIVEN TODAY 5Result Comment: [facility]#[id number] 6Admin Note: VIM dated 08/22/11 GIVEN TODAY [...] EVERY 6 HOURS NEEDED FOR WHEEZE, [facility]/pharmacy #2024 Start Date: 05/27/19 Status: Ordered diclofenac 1% topical gel 1 applicator, Topically, 4 times a day, # 100 Gm, 0 Refills, Maintenance, 02/18/20 11:51:00 EDT, Gel, [facility]/pharmacy #2024, 161, cm, 01/08/20 13:51:00 EDT, Height Start Date: 02/18/20 Status: Ordered FLUoxetine 20 mg oral capsule 20 mg, 1, capsule, By Mouth, Daily, # 30 capsule, Refills 4, Tot. Refills 4, Maintenance, 08/30/19 20:34:00 EST, Route to Pharmacy Electronically, [facility]/pharmacy #2024, replacing 10mg dose, 161, cm, 08/12/19 12:43:00 EST, Height Start Date: 08/30/19 Status: Ordered levothyroxine 125 mcg (0.125 mg) oral tablet 1 tablet = 125 mcg, By Mouth, Daily, # 30 tablet, 5 Refills, Maintenance, 11/11/19 14:50:00 EDT, Tablet, [facility]/pharmacy #2024, 161, cm, 10/07/19 9:57:00 EDT, Height Start Date: 11/11/19 Status: Ordered meloxicam 15 mg oral tablet 1 tablet = 15 mg, By Mouth, Daily, Take w food., # 30 tablet, 1 Refills, Maintenance, 03/04/20 14:47:00 EDT, Tablet, [facility]/pharmacy #2024, Labs needed for further refills, 161, [...] 17:54:00 EST, Route to Pharmacy Electronically, [facility]/pharmacy #5, 161, cm, 08/04/19 14:44:00 EST, Height Start Date: 08/04/19 Stop Date: 08/18/19 Status: Ordered traMADol 50 mg oral tablet 2 tablet = 100 mg, By Mouth, Every 12 hours, as needed for pain masspat checked, # 120 tablet, 2 Refills, Maintenance, 03/11/20 16:48:00 EDT, [facility]/pharmacy #5, 161, cm, 02/24/20 10:51:00 EDT, Height Start Date: 03/11/20 Stop Date: 06/09/20 Status: Ordered zolpidem 10 mg oral tablet 1 tablet = 10 mg, By Mouth, Daily at bedtime, PRN for sleep, for 30 days, masspat check may fill less, # 30 tablet, 3 Refills, Acute 04/17/20 12:28:00 EDT, 12/19/19 12:28:00 EDT, Tablet, [facility]/pharmacy#5, 161, cm, 10/07/19 9:57:00 EDT, Height Start [...]
--- OUTSIDE RECORDS SUMMARY | 2024-06-24 14:24 | XMS_ITS | Continuity of Care Document ---
Author Organization [facility] Address [address] [place] [address]- Care Team Providers Care Striker Off Name Role Phone Florentino AHN, Elder Hannah Primary Care Physician [phone] [facility] Date[facility] 09[facility]20 - 10/01/20 [facility] [address] [place] [address]- Allergies, Adverse Reactions, Alerts Substance Reaction Severity [...] 6 08/13/12 Given 1Result Comment: [facility]# [id number] 2Result Comment: [05/25/2018] [facility] lot number [id number] exp 01/26/2019 [facility] [id number] 3Result Comment: [08/20/2017] [facility] [id number] 4Admin Note: VIM dated 01/29/12 GIVEN TODAY 5Result Comment: [facility]#[id number] 6Admin Note: VIM dated 08/22/11 GIVEN TODAY [...] 6 HOURS NEEDED FOR WHEEZE, [facility]/pharmacy #2024 Start Date: 05/27/19 Status: Ordered diclofenac 1% topical gel See Instructions, APPLY TOPICALLY 4 TIMES A DAY, # 100 Gm, 0 Refills, Maintenance, [facility],25, APPLY TOPICALLY 4 TIMES A DAY, 161, cm, 06/08/20 13:48:00 EST, Height Start Date: 07/12/20 Status: Ordered FLUoxetine 20 mg oral capsule 20 mg, 1, capsule, By Mouth, Daily, # 30 capsule, Refills 5, Tot. Refills 5, Maintenance, 05/13/20 9:34:00 EDT, Route to Pharmacy Electronically, [facility]/pharmacy #2024, replacing 10mg dose, 161, cm, 05/13/20 8:28:00 EDT, Height Start Date: 05/13/20 Status: Ordered levothyroxine 0.137 mg oral tablet See Instructions, Take 1 tablet by mouth on days 1-6, then take 2 tablets by mouth on day 7, # 121 tablet, 1 Refills, Maintenance, 08/31/20 7:32:00 EST, [facility]/pharmacy #2024, 161, cm, 08/18/20 15:29:00EST, Height Start Date: 08/31/20 Status: Ordered meloxicam 15 mg oral tablet 1 tablet, By Mouth, Daily, WITH FOOD., # 30 tablet, 1 Refills, Maintenance, 08/30/20 7:37:00 EST, [facility], 161, cm, 08/18/20 15:29:00 EST, Height Start [...] Route to Pharmacy Electronically, [facility]/pharmacy #5, 161, cm, 08/04/19 14:44:00 EST, Height Start Date: 08/04/19 Stop Date: 08/18/19 Status: Ordered traMADol 50 mg oral tablet 2 tablet = 100 mg, By Mouth, Every 12 hours, for 30 days, as needed for pain masspat checked, # 120tablet, 2 Refills, Hard Stop 11/15/20 16:20:00 EDT, 08/17/20 16:20:00 EST, [facility]/pharmacy #5, 161,cm, 06/08/20 13:48:00 EST, Height Start Date: 08/17/20 Stop Date: 11/15/20 Status: Ordered traMADol 50 mg oral tablet 2 tablet = 100 mg, By Mouth, Every 12 hours, as needed for pain masspat checked, # 120 tablet, 2 Refills, Maintenance, 09/13/20 16:54:00 EST, [facility]/pharmacy #5, 161, cm, 08/18/20 15:29:00 EST, Height Start Date: 09/13/20 Stop Date: 12/12/20 Status: Ordered zolpidem 10 mg oral tablet 1 tablet = 10 mg, By Mouth, Daily at bedtime, PRN for sleep, for 30 days, masspat check may fill less, # 30 tablet, 3 Refills, Acute 01/14/21 9:22:00 EDT, 09/16/20 9:22:00 EST, Tablet, [facility]/pharmacy #5, 161, cm, 08/18/20 15:29:00 EST, Height Start Date: 09/16/20 Stop Date: 01/14/21 Status: Ordered zolpidem 10 mg oral tablet 1 tablet = 10 mg, By Mouth, Daily at bedtime, PRN for sleep, for 30 days, masspat check may fill less, # 30 tablet, 3 Refills, Acute 01/08/21 9:34:00 EDT, 09/10/20 9:34:00 EST, Tablet, [facility]/pharmacy #5, 161, cm, 08/18/20 15:29:00 EST, Height [...]
--- OUTSIDE RECORDS SUMMARY | 2024-06-24 14:24 | XMS_ITS | Continuity of Care Document ---
Author Organization [facility] Address [address] [place] [address]- Care Team Providers Care Contract Technical Writer Name Role Phone Vivi HENNING, Celestina Givens Primary Care Physician [place] [facility] [place] 04/22/24 - 05/22/24 [facility] [address] [place] [address]- Allergies, Adverse Reactions, Alerts No Known Allergies [...] 08/21/22 Given tetanus/diphtheria/pertussis, acel(Tdap) 7 08/13/12 Given [id number] 12y+ bivalent booster vax 06/14/22 Recorded SARS-CoV-2 mRNA (unqztpn-fngl-jiubc) vax 02/14/22 Recorded SARS-CoV-2 (COVID-19) mRNA BNT-162b2 vac 05/06/21 Given SARS-CoV-2 (COVID-19) mRNA BNT-162b2 vac 11/04/20 Recorded SARS-CoV-2 (COVID-19) mRNA BNT-162b2 vac 10/14/20 Recorded pneumococcal 23-valent vaccine 8 04/07/19 Given 1Result Comment: screening negative 2Result Comment: [facility]# [id number] 3Result Comment: [05/25/2018] [facility] lot number [id number] exp 01/26/2019 [facility] [id number] 4Result Comment: [08/20/2017] [facility] [id number] 5Admin Note: VIM dated 01/29/12 GIVEN TODAY 6Result Comment: [facility]# [id number] 7Admin Note: VIM dated 08/22/11 GIVEN TODAY 8Result Comment: [facility]#[id number] Medications acetaminophen 500 mg oral capsule 2 [...] 05/17/24 16:46:00 EDT, Route to Pharmacy Electronically, [facility]/pharmacy #2024, Partial fill upon patient request if the prescription is for a... Start Date: 05/17/24 Status: Ordered diclofenac 1% topical gel See Instructions, APPLY TO AFFECTED AREA 4 TIMES A DAY. NOT COVERED, # 100 Gm, 1 Refills, Maintenance, 04/22/24 15:15:00 EDT, [facility]/pharmacy #2024, 30, APPLY TO AFFECTED AREA 4 TIMES A DAY. NOT COVERED, 157.5, cm, 02/12/24 14:48:00 EDT, Height, 145.9, k... Start Date: 04/22/24 Status: Ordered diclofenac 1% topical gel See Instructions, APPLY TO AFFECTED AREA 4 TIMES A DAY, # 100 Gm, 1 Refills, Maintenance, 11/07/23 7:48:00 EDT, [facility]/pharmacy #2024, 25, APPLY TO [...] Gm, 0 Refills, Maintenance, 02/28/21 16:31:00 EDT, [place], [facility]/pharmacy #2025, Partial fill upon patient request if the prescription is for... Start Date: 02/28/21 Status: Ordered FLUoxetine 10 mg oral capsule 1, capsule, By Mouth, Daily, INSTR:TO BE TAKEN WITH 20MG CAPSULES TO EQUAL 30MG DAILY, # 90 capsule, Refills 1, Maintenance, 01/25/24 9:11:00 EDT, Route to Pharmacy Electronically, [facility], 157.5, cm, 01/22/24 10:31:00 EDT, Height, 145.9, [...] tablet, 1 Refills, Maintenance, 12/28/23 16:17:00 EDT, [facility], 157.5, cm, 10/18/23 15:15:00 EDT, Height, 145.9, [...] Code MRI Safety Implantable Status Assigning Authority [id number] Unknown [id number] Unknown 08/26/24 Unknown Unknown Active GS1 Patient Care team information Care Team Personnel Name: Celestina Trinidad MD Position: [facility] Physician - Primary Care Member Role: PCP Address: Address: [address] [place] [address] Name: Hemalatha Lucas RN [facility] RN Member Role: Primary Care Nurse Name: Miran Greenfield RN Position: [facility] RN Member Role: Primary Care Nurse Name: Nessa Bonilla RN Position: [facility] Lead Man [employer] Member Role: Primary Care Nurse Care Team Related Persons Name: ROSETTA, DINESH Address: home [address] [place] [address] Name: BON [place] Address: home [address] [address]
--- OUTSIDE RECORDS SUMMARY | 2024-06-24 14:24 | XMS_ITS | Continuity of Care Document ---
Author Organization [facility] Address [address] [place] [address]- Care Team Providers Care Bariatric Surgeon Name Role Phone Vivi HENNING, Celestina Givens Primary Care Physician [facility] Date[facility]s): 07/17/22 - 08/16/22 [facility] [address] [place] [address]- Allergies, Adverse Reactions, Alerts No Known Allergies Immunizations Given and Recorded Vaccine Date Status Refusal Reason [id number] 12y+ bivalent booster vax 06/14/22 Recorded influenza [...] inactivated 4 07/31/12 Gi hali SARS-CoV-2 mRNA (zyehnlx-fjld-ovpjy) vax 02/14/22 Recorded SARS-CoV-2 (COVID-19) mRNA BNT-162b2 vac 05/06/21 Given SARS-CoV-2 (COVID-19) mRNA BNT-162b2 vac 11/04/20 Recorded SARS-CoV-2 (COVID-19) mRNA BNT-162b2 vac 10/14/20 Recorded pneumococcal 23-valent vaccine 5 04/07/19 Given tetanus/diphtheria/pertussis, acel(Tdap) 6 08/13/12 Given 1Result Comment: [facility]# [id number] 2Result Comment: [05/25/2018] [facility] lot number [id number] exp 01/26/2019 [facility] [id number] 3Result Comment: [08/20/2017] [facility] [id number] 4Admin Note: VIM dated 01/29/12 GIVEN TODAY 5Result Comment: [facility]#[id number] 6Admin Note: VIM dated 08/22/11 GIVEN TODAY [...] Stop, 04/10/2215:14:00 EDT, Route to Pharmacy Electronically, [id number], [facility]/pharmacy #2025, 158, cm, 04/10/22 14:56:00 EDT, Height, 143,... Start Date: 04/10/22 Status: Ordered amLODIPine 10 mg oral tablet 1 tablet, By Mouth, Daily, # 90 tablet, 0 Refills, Maintenance, 07/21/22 17:34:00 EST, [facility], 158, cm, 07/21/22 15:09:00 EST, Height, 143, kg, 01/04/21 10:42:00 EDT, Dry Weight Start Date: 07/21/22 Status: Ordered Anoro Ellipta 62.5 mcg-25 mcg/inh inhalation powder 1 puffs, By Mouth, Daily, # 1 each, 6 Refills, Maintenance, 05/11/22 13:00:00 EDT, Powder, [facility], Partial fill upon patient request if [...] 16:58:00 EST, Tablet, [facility]/pharmacy #2025, Partial fill [...] 09/19/21 12:51:00 EST, [facility]/pharmacy #2025, 25, APPLY TOPICALLY 4 TIMES [...] Gm, 0 Refills, Maintenance, 02/28/21 16:31:00 EDT, [place], [facility]/pharmacy #202, Partial fill upon patient request if the prescription is for... Start Date: 02/28/21 Status: Ordered FLUoxetine 20 mg oral capsule See Instructions, TAKE 1 CAPSULE BY MOUTH EVERY DAY, # 90 capsule, Refills 1, Maintenance, 06/13/2215:26:00 EST, Instructions Replace Required Details, Route to Pharmacy Electronically, [facility], 158, cm, 06/09/22 11:21:00 EST, Height, 143, [...] Physician Member Role: PCP Address: Address: [address] [place] [id number] Name: Lauren aMck RN Position: [facility] [...] Care Nurse Name: Nessa Bonilla RN Position: [facility] Hospital Plant Controller Member Role: Primary Care Nurse Care Team Related Persons Name: DINESH SARGENT Address: home [address] [place] [address] Name: BON [place] Address: home [address] [place] [address]
--- OUTSIDE RECORDS SUMMARY | 2024-06-24 14:25 | XMS_ITS | Continuity of Care Document ---
Author Organization [facility] Address [address] [address]- Care Team Providers Care Line Operator Name Role Phone Celestina Trinidad MD Primary Care Physician En[place] [facility] Date(s): 09/14/22 - 11/29/22 [facility] [address] [address]- Attending Physician: Hui HENNING, Jeannine Moreira Admitting Physician: Hui HENNING, Jeannine Moreira Referring Physician: Celestina Trinidad MD Allergies, Adverse Reactions, Alerts No Known Allergies Immunizations Given and Recorded Vaccine Date Status Refusal Reason tetanus/diphtheria/pertussis, acel(Tdap) 1 08/21/22 Given tetanus/diphtheria/pertussis, acel(Tdap) 2 08/13/12 Given [id number] 12y+ bivalent booster vax 06/14/22 Recorded influenza [...] inactivated 6 07/31/12 Gi hali SARS-CoV-2 mRNA (uzhjdtv-vuij-obmbb) vax 02/14/22 Recorded SARS-CoV-2 (COVID-19) mRNA BNT-162b2 vac 05/06/21 Given SARS-CoV-2 (COVID-19) mRNA BNT-162b2 vac 11/04/20 Recorded SARS-CoV-2 (COVID-19) mRNA BNT-162b2 vac 10/14/20 Recorded pneumococcal 23-valent vaccine 7 04/07/19 Given 1Result Comment: [facility]# [id number] 2Admin Note: VIM dated 08/22/11 GIVEN TODAY 3Result Comment: [facility]# [id number] 4Result Comment: [05/25/2018] [facility] lot number [id number] exp 01/26/2019 [facility] [id number] 5Result Comment: [08/20/2017] [facility] [id number] 6Admin Note: VIM dated 01/29/12 GIVEN TODAY 7Result Comment: [facility]#[id number] Medications acetaminophen 500 mg oral capsule 2 [...] Stop, 04/10/2215:14:00 EDT, Route to Pharmacy Electronically, [id number], [facility]/pharmacy #2025, 158, cm, 04/10/22 14:56:00 EDT, Height, 143,... Start Date: 04/10/22 Status: Ordered amLODIPine 10 mg oral tablet 1 tablet, By Mouth, Daily, # 90 tablet, 0 Refills, Maintenance, 10/23/22 12:47:00 EDT, [facility], 157, cm, 09/13/22 15:58:00 EST, Height, 145, kg, 08/29/22 20:13:00 EST, Dry Weight Start Date: 10/23/22 Status: Ordered budesonide-formoterol 80 mcg-4.5 mcg/inh inhalation aerosol with adapter 2, puffs, Inhalation, 2 times a day, PRN, use with spacer chamber, rinse mouth and throat after use, # 10.2 Gm, Refills 5, Tot. Refills 5, Maintenance, 09/12/22 11:06:00 EST, Aerosol, Route to Pharmacy Electronically, [id number]... Start Date: 09/12/22 Status: Ordered Compression Stockings [...] 100 Gm, 1 Refills, 09/22/22 7:28:00 EST, [facility]/pharmacy #2024, [...] 08/31/22 13:30:00 EST, Route to Pharmacy Electronically, [facility]/pharmacy #2024, Partial fill upon patient request if the p... Start Date: 08/31/22 Status: Ordered Flonase 50 mcg/inh nasal spray See Instructions, 2 sprays Nares twice daily x 1 week, then once daily x 1-2 weeks until symptoms improve, # 16 Gm, 0 Refills, Maintenance, 02/28/21 16:31:00 EDT, [place], [facility]/pharmacy #5, Partial fill upon patient request if the prescription is for... Start Date: 02/28/21 Status: Ordered FLUoxetine 20 mg oral capsule 1, capsule, By Mouth, Daily, # 90 capsule, Refills 1, Maintenance, 10/23/22 12:47:00 EDT, Route to Pharmacy Electronically, [facility], 157, cm, 09/13/22 15:58:00 EST, Height, 145, kg, 08/29/22 20:13:00 EST, Dry Weight Start Date: 10/23/22 Status: Ordered furosemide 20 mg oral tablet 1, tablet, By Mouth, Daily, MAY REPEAT IF NEEDED IN 2 HOURS, # 30 tablet, Refills 0, Maintenance, 11/29/22 22:18:00 EDT, Route to Pharmacy Electronically, [facility], 157, cm, 10/30/22 13:53:00 EDT, Height, 145, [...] 1 Refills, Maintenance, 07/03/22 14:41:00 EST, Tablet, [facility]/pharmacy #2024, Partial fill upon patient request if the prescription is for a schedule II opioid dr... Start Date: 07/03/22 Status: Ordered meclizine 25 mg oral tablet See Instructions, PRN Dizziness, 1 tablet By Mouth 3 times a day, # 30 tablet, 0 Refills, Maintenance, 05/11/21 13:11:00 EDT, [facility]/pharmacy #2024, Partial fill upon patient request if the prescriptionis for a schedule II opioid drug., 160.02, cm, 10/0... Start Date: 05/11/21 Status: Ordered meloxicam 15 mg oral tablet See Instructions, TAKE 1 TABLET BY MOUTH DAILY WITH FOOD. LABS NEEDED FOR FURTHER REFILLS, # 30 tablet, 3 Refills, Maintenance, 10/18/22 21:31:00 EDT, [facility], 157, cm, 09/13/22 15:58:00 EST,Height, 145, kg, [...] 09/05/22 16:29:00 EST, Route to Pharmacy Electronically, [facility]/pharmacy #2024, Partialfill upon patient request if the prescription is fo... Start Date: 09/05/22 Stop Date: 09/12/22 Status: Ordered traMADol 50 mg oral tablet See Instructions, 2 tab po qam and one tab po q pm prn moderate to severe pain. 28 days. mass pat ok, # 81 tablet, 0 Refills, Maintenance, 10/29/22 21:38:00 EDT, [facility]/pharmacy #2024, 157, cm, 09/13/2314:58:00 EST, [...] Care Physician Member Role: PCP Address: Address: [address] [place] [address] Name: Hemalatha Lucas RN Position: [facility] RN Member Role: Primary Care Nurse Name: Lauren Mack RN Position: [facility] Nurse Member Role: Primary Care [...] Bonilla RN Position: [facility] Hospital Pharm Spec Member Role: Primary Care Nurse Care Team Related Persons Name: ROSETTA DINESH Address: home [address] [place] [address] Name: BON [place] Address: [address] [address]
--- OUTSIDE RECORDS SUMMARY | 2024-06-24 14:25 | XMS_ITS | Continuity of Care Document ---
Author Organization [facility] Address [address] [address]- Care Team Providers Care Administrative Support Specialist Name Role Phone Celestina Trinidad MD Primary Care Physician Encounter [facility] Date(s): 08/07/22 - 09/06/22 [facility] [address] [address] Allergies, Adverse Reactions, Alerts No Known Allergies Immunizations Given and Recorded Vaccine Date Status Refusal Reason tetanus/diphtheria/pertussis, acel(Tdap) 1 08/21/22 Given tetanus/diphtheria/pertussis, acel(Tdap) 2 08/13/12 Given [id number] 12y+ bivalent booster vax 06/14/22 Recorded influenza [...] inactivated 6 07/31/12 Gi hali SARS-CoV-2 mRNA (kkpxvze-onue-nzdzw) vax 02/14/22 Recorded SARS-CoV-2 (COVID-19) mRNA BNT-162b2 vac 05/06/21 Given SARS-CoV-2 (COVID-19) mRNA BNT-162b2 vac 11/04/20 Recorded SARS-CoV-2 (COVID-19) mRNA BNT-162b2 vac 10/14/20 Recorded pneumococcal 23-valent vaccine 7 9/9/19 Given 1Result Comment: [facility]# 18254-411-81 2Admin Note: VIM dated 08/22/11 GIVEN TODAY 3Result Comment: [facility]# [id number] 4Result Comment: [05/25/2018] [employer] lot number [id number] exp 01/26/2019 [facility] [id number] 5Result Comment: [08/20/2017] [facility] [id number] 6Admin Note: VIM dated 01/29/12 GIVEN TODAY 7Result Comment: [facility][NOTE 2]#[id number] Medications acetaminophen 500 mg oral capsule 2 [...] Stop, 04/10/2215:14:00 EDT, Route to Pharmacy Electronically, [id number], [facility]/pharmacy #2025, 158, cm, 04/10/22 14:56:00 EDT, Height, 143,... Start Date: 04/10/22 Status: Ordered amLODIPine 5 mg oral tablet 1 tablet, By Mouth, Daily, # 30 tablet, 5 Refills, Maintenance, 08/24/22 20:08:00 EST, [facility], 159, cm, 08/21/22 11:38:00 EST, Height, 143, [...] 10/12/22 13:28:00 EDT, 08/31/22 13:28:00 EST, Tablet, [facility]/pharmacy #202, Partial fill upon patient request [...] 13:30:00 EST, [facility] fill upon patient request if the p... Start Date: 08/31/22 Status: Ordered Flonase 50 mcg/inh nasal spray See Instructions, 2 sprays Nares twice daily x 1 week, then once daily x 1-2 weeks until symptoms improve, # 16 Gm, 0 Refills, Maintenance, 02/28/21 16:31:00 EDT, [place], [facility]/pharmacy #2025, Partial fill upon patient request if the prescription is for... Start Date: 02/28/21 Status: Ordered fluconazole 200 mg oral tablet 2 tablet = 400 mg, By Mouth, Daily, for 6 week(s), # 84 tablet, 0 Refills, Acute 10/12/22 13:28:00 EDT, 08/31/22 13:28:00 EST, Tablet, [facility]/pharmacy #5, Partial fill upon patient request if the prescription is for a schedule II opioid drug., 157, cm... Start Date: 08/31/22 Stop Date: 10/12/22 Status: Ordered FLUoxetine 20 mg oral capsule See Instructions, TAKE 1 CAPSULE BY MOUTH EVERY DAY, # 90 capsule, Refills 1, Maintenance, 06/13/2215:26:00 EST, Instructions Replace Required Details, Route to Pharmacy Electronically, [facility], 158, cm, 06/09/22 11:21:00 EST, Height, 143, kg... Start Date: 06/13/22 Status: Ordered gabapentin 300 mg oral capsule 600 mg, 2, capsule, By Mouth, 3 times a day, # 180 capsule, Refills 3, Tot. Refills 3, Maintenance,08/25/22 22:35:00 EST, Route to Pharmacy Electronically, [facility]/pharmacy #2025, Partial fill upon patient request if the prescription is for a schedule II... Start Date: 08/25/22 Status: Ordered Lasix 20 mg oral tablet 20 mg, 1, tablet, By Mouth, Daily, May repeat if needed in 2 hours, # 30 tablet, Refills 0, Tot. Refills 0, Soft Stop, 09/05/22 16:55:00 EST, [facility] to [facility] Electronically, [facility] tablet, 0 Refills, Maintenance, 05/11/21 13:11:00 EDT, [facility]/pharmacy #2024, Partial fill upon patient request if the prescriptionis for a schedule II opioid drug., 160.02, cm, 10/0... Start Date: 05/11/21 Status: Ordered meloxicam 15 mg oral tablet See Instructions, TAKE 1 TABLET BY MOUTH DAILY WITH FOOD. LABS NEEDED FOR FURTHER REFILLS, # 30 tablet, 3 Refills, Maintenance, 07/17/22 19:56:00 EST, [facility]/pharmacy #2024, 158, cm, 07/13/22 13:46:00 EST, [...] 09/05/22 16:29:00 EST, Route to Pharmacy Electronically, [facility]/pharmacy #2024, Partialfill upon patient request if [...] MD Position: [facility] Primary Care Physician Member Role: PCP Address: Address: [address] [place] [address] Name: Hemalatha Lucas RN [facility] Bonilla RN Position: [facility] Retail Bakery Manager Member Role: Primary Care Nurse Care Team Related Persons Name: DINESH SARGENT Address: home [address] [place] [address] Name: BON DE Address: home [address] [place] [id number]
--- OUTSIDE RECORDS SUMMARY | 2024-06-24 14:25 | XMS_ITS | Continuity of Care Document ---
Author Organization [facility] Address [address] [place] [address]- Care Team Providers Care Concierge Name Role Phone Florentino AHN, Elder Hannah Primary Care Physician Encounter [facility] Date(s): 05/03/20 - 06/05/20 [facility] [address] [place] [address]- Attending Physician: Not on Staff, Attending MD [...] tetanus/diphtheria/pertussis, acel(Tdap) 6 08/13/12 Given 1Result Comment: [facility]# [id number] 2Result Comment: [05/25/2018] [facility] lot number [id number] exp 01/26/2019 [facility] [id number] 3Result Comment: [08/20/2017] [facility] 57158-718-75 4Admin Note: VIM dated 01/29/12 GIVEN TODAY 5Result Comment: [facility]#[id number] 6Admin Note: VIM dated 08/22/11 GIVEN TODAY [...] 0 Refills, Maintenance, 02/18/20 11:51:00 EDT, [place], [facility]/pharmacy #2024, 161, cm, 01/08/20 13:51:00 EDT, Height Start Date: 02/18/20 Status: Ordered FLUoxetine 20 mg oral capsule 20 mg, 1, capsule, By Mouth, Daily, # 30 capsule, Refills 5, Tot. Refills 5, Maintenance, 05/13/20 9:34:00 EDT, Route to Pharmacy Electronically, [facility]/pharmacy #2024, replacing 10mg dose, 161, cm, 05/13/20 8:28:00 EDT, Height Start Date: 05/13/20 Status: Ordered levothyroxine 125 mcg (0.125 mg) oral tablet 1 tablet = 125 mcg, By Mouth, Daily, # 30 tablet, 5 Refills, Maintenance, 05/13/20 9:34:00 EDT, Tablet, [facility]/pharmacy #2024, 161, cm, 05/13/20 8:28:00 EDT, Height Start Date: 05/13/20 Status: Ordered meloxicam 15 mg oral tablet 1 tablet = 15 mg, By Mouth, Daily, Take w food., # 30 tablet, 1 Refills, Maintenance, 05/10/20 12:59:00 EDT, Tablet, [facility]/pharmacy [...] tablet, 2 Refills, Maintenance, 05/13/20 9:34:00 EDT, [facility]/pharmacy #5, 161, cm, 05/13/20 8:28:00 EDT, Height Start Date: 05/13/20 Stop Date: 08/11/20 Status: Ordered zolpidem 10 mg oral tablet 1 tablet = 10 mg, By Mouth, Daily at bedtime, PRN for sleep, for 30 days, masspat check may fill less, # 30 tablet, 3 Refills, Acute 09/10/20 9:34:00 EST, 05/13/20 9:34:00 EDT, Tablet, [facility]/pharmacy #5, 161, cm, 05/13/20 8:28:00 EDT, Height [...]
--- OUTSIDE RECORDS SUMMARY | 2024-06-24 14:25 | XMS_ITS | Continuity of Care Document ---
Author Organization [facility] Address [address] [place] [address]- Care Team Providers Care Organic Preparation Technician Name Role Phone Celestina Trinidad MD Primary Care Physician Encounter [facility] Date(s): 11/03/23 - 12/03/23 [facility] [address] [place] [address]- Allergies, Adverse Reactions, Alerts No Known Allergies [...] 08/21/22 Given tetanus/diphtheria/pertussis, acel(Tdap) 7 08/13/12 Given [id number] 12y+ bivalent booster vax 06/14/22 Recorded SARS-CoV-2 mRNA (hcycktm-lkeh-uxnjj) vax 02/14/22 Recorded SARS-CoV-2 (COVID-19) mRNA BNT-162b2 vac 05/06/21 Given SARS-CoV-2 (COVID-19) mRNA BNT-162b2 vac 11/04/20 Recorded SARS-CoV-2 (COVID-19) mRNA BNT-162b2 vac 10/14/20 Recorded pneumococcal 23-valent vaccine 8 04/07/19 Given 1Result Comment: screening negative 2Result Comment: [facility]# [id number] 3Result Comment: [05/25/2018] [facility] lot number [id number] exp 01/26/2019 [facility] [id number] 4Result Comment: [08/20/2017] [facility] [id number] 5Admin Note: VIM dated 01/29/12 GIVEN TODAY 6Result Comment: [facility]# [id number] 7Admin Note: VIM dated 08/22/11 GIVEN TODAY 8Result Comment: [facility]#[id number] Medications acetaminophen 500 mg oral capsule 2 [...] 05/17/23 16:45:00 EDT, Route to Pharmacy Electronically, [facility] [...] Gm, 0 Refills, Maintenance, 02/28/21 16:31:00 EDT, [place], Partial fill upon patient [...] [facility].5, cm, 07/13/23 9:57:00 EST, Height, 145.9, kg, 05/22/23 7:39:00 EDT, Dry Weight Start Date: 07/31/23 Status: Ordered gabapentin 300 mg oral capsule 600 mg, 2, capsule, By Mouth, 3 times a day, # 180 capsule, Refills 3, Tot. Refills 3, Maintenance,08/25/22 22:35:00 EST, [facility] Electronically[facility] Partial fill upon patient request if [...] tablet, 0 Refills, Maintenance, 10/12/23 6:42:00 EDT, [facility]/pharmacy #2024, 157.5, cm, 07/13/23 9:57:00 EST, Height, 145.9, kg, 05/22/23 7:39:00 EDT, Dry Weight Start Date: 10/12/23 Status: Ordered meclizine 25 mg oral tablet See Instructions, PRN Dizziness, 1 tablet By Mouth 3 times a day, # 30 tablet, 0 Refills, Maintenance, 02/27/23 10:43:00 EDT, [facility]/pharmacy #2024, Partial fill upon [...] may filll this prescription for fewer pills. [facility] # [facility], Refills 0, Tot. [...] tablet, 0 Refills, Maintenance, 11/05/23 16:28:00 EDT, [facility]/pharmacy #2025, Partial fill upon patient [...] Code MRI Safety Implantable Status Assigning Authority [id number] Unknown [id number] Unknown 08/26/24 Unknown Unknown Active GS1 Patient Care team information Care Team Personnel Name: Celestina Trinidad MD Position: [facility] Physician - Primary Care Member Role: PCP Address: Address: [address] [place] [address] Name: Hemalatha Lucas RN Position: [facility] [...] Nessa Bonilla RN Position: [facility] Subject Scientific Research Member Role: Primary Care Nurse Care Team Related Persons Name: ROSETTA DINESH Address: home [address] [place] [address] Name: BON DE Address: [address] [address]
--- OUTSIDE RECORDS SUMMARY | 2024-06-24 14:25 | XMS_ITS | Continuity of Care Document ---
Author Organization [facility] Address [address] [place] [address]- Care Team Providers Care Showroom Sales Consultant Name Role Phone Florentino AHN, Elder Hannah Primary Care Physician Encounter [facility] Date(s): 08/13/20 - 09/12/20 [facility] [address] [place] [address]- Allergies, Adverse Reactions, Alerts Substance Reaction Severity [...] acel(Tdap) 6 08/13/12 Given 1Result Comment: [facility]# [id number] 2Result Comment: [05/25/2018] [facility] lot number [id number] exp 01/26/2019 [facility] [id number] 3Result Comment: [08/20/2017] [facility] 56061-353-46 4Admin Note: VIM dated 01/29/12 GIVEN TODAY 5Result Comment: [facility]#[id number] 6Admin Note: VIM dated 08/22/11 GIVEN TODAY [...] EVERY 6 HOURS NEEDED FOR WHEEZE, [facility]/pharmacy #2024 Start Date: 05/27/19 Status: Ordered diclofenac 1% topical gel See Instructions, APPLY TOPICALLY 4 TIMES A DAY, # 100 Gm, 0 Refills, Maintenance, [facility], APPLY TOPICALLY 4 TIMES A DAY, 161, cm, 06/08/20 13:48:00 EST, Height Start Date: 07/12/20 Status: Ordered FLUoxetine 20 mg oral capsule 20 mg, 1, capsule, By Mouth, Daily, # 30 capsule, Refills 5, Tot. Refills 5, Maintenance, 05/13/20 9:34:00 EDT, Route to Pharmacy Electronically, [facility]/pharmacy #2024, replacing 10mg dose, 161, cm, 05/13/20 8:28:00 EDT, Height Start Date: 05/13/20 Status: Ordered levothyroxine 0.137 mg oral tablet See Instructions, Take 1 tablet by mouth on days 1-6, then take 2 tablets by mouth on day 7, # 121 tablet, 1 Refills, Maintenance, 08/31/20 7:32:00 EST, [facility]/pharmacy #2024, 161, cm, 08/18/20 15:29:00EST, Height Start Date: 08/31/20 Status: Ordered meloxicam 15 mg oral tablet 1 tablet, By Mouth, Daily, WITH FOOD., # 30 tablet, 1 Refills, Maintenance, 08/30/20 7:37:00 EST, [facility], 161, cm, 08/18/20 15:29:00 EST, Height Start [...] 17:54:00 EST, Route to Pharmacy Electronically, [facility]/pharmacy #5, 161, cm, 08/04/19 14:44:00 EST, Height Start Date: 08/04/19 Stop Date: 08/18/19 Status: Ordered traMADol 50 mg oral tablet 2 tablet = 100 mg, By Mouth, Every 12 hours, as needed for pain masspat checked, # 120 tablet, 2 Refills, Maintenance, 08/17/20 16:20:00 EST, [facility]/pharmacy #5, 161, cm, 06/08/20 13:48:00 EST, Height Start Date: 08/17/20 Stop Date: 11/15/20 Status: Ordered zolpidem 10 mg oral tablet 1 tablet = 10 mg, By Mouth, Daily at bedtime, PRN for sleep, for 30 days, masspat check may fill less, # 30 tablet, 3 Refills, Acute 01/08/21 9:34:00 EDT, 09/10/20 9:34:00 EST, Tablet, [facility]/pharmacy #5, 161, cm, 08/18/20 15:29:00 [...]
--- OUTSIDE RECORDS SUMMARY | 2024-06-24 14:25 | XMS_ITS | Continuity of Care Document ---
Author Organization [facility] Address [address] [place] [address], [address] [place] [address]- Care Team Providers Care Molding Technician Name Role Phone Vivi HENNING, Celestnia Givens Primary Care Physician Encounter [facility] Date(s): 05/02/22 - 06/01/[address], [address] [place] [address]- Allergies, Adverse Reactions, Alerts No Known Allergies [...] 08/13/12 Given 1Result Comment: [facility]# [id number] 2Result Comment: [05/25/2018] [facility] lot number [id number] exp 01/26/2019 [facility] [id number] 3Result Comment: [08/20/2017] [facility] [id number] 4Admin Note: VIM dated 01/29/12 GIVEN TODAY 5Result Comment: [facility]#[id number] 6Admin Note: VIM dated 08/22/11 GIVEN TODAY [...] Stop, 04/10/2215:14:00 EDT, Route to Pharmacy Electronically, [id number], [facility]/pharmacy #2025, 158, [...] 100 Gm, 1 Refills, 09/19/21 12:51:00 EST, [facility]/pharmacy #2024, [...] Gm, 0 Refills, Maintenance, 02/28/21 16:31:00 EDT, [place], [facility]/pharmacy #2024, Partial fill upon patient request if the prescription is for... Start Date: 02/28/21 Status: Ordered FLUoxetine 10 mg oral capsule 10 mg, 1, capsule, By Mouth, Daily, Take with 20mg capsule for total of 30mg daily, # 90 capsule, Refills 1, Tot. Refills 1, Maintenance, 04/11/22 14:55:00 EDT, Route to Pharmacy Electronically, [facility], Partial fill upon patient request if t... Start Date: 04/11/22 Status: Ordered levothyroxine 0.137 mg oral tablet See Instructions, TAKE 1 TABLET BY MOUTH ON DAYS 1-6, THEN TAKE 2 TABLETS BY MOUTH ON DAY 7, # 96 tablet, 1 Refills, [facility] 34[facility], 160.02, cm, 10/04/21 10:38:00 EST, Height, 143, [...] Refills, Maintenance, 05/11/22 18:51:00 EDT, [facility], Labs needed for further refills., [...] Refills, Maintenance, 05/11/22 18:51:00 EDT, [facility], 158, cm, 05/08/22 11:49:00 EDT, Height, 143, kg, 01/04/21 10:42:00 EDT, Dry Weight Start Date: 05/11/22 Status: Ordered zolpidem 10 mg oral tablet 1 tablet = 10 mg, By Mouth, Daily at bedtime, PRN for sleep, for 30 days, masspat check may fill less, # 30 tablet, 2 Refills, Acute 07/19/22 9:22:00 EST, 04/20/22 9:22:00 EDT, Tablet, [facility], 158, cm, 04/10/22 14:56:00 EDT, [...] Sex Patient Care team information Personnel Name: Vivi HENNING, Celestina Givens Address: Address: [address] [place] [id number]
--- OUTSIDE RECORDS SUMMARY | 2024-06-24 14:25 | XMS_ITS | Continuity of Care Document ---
Author Organization [facility] Address [address] [place] [address]- Care Team Providers Care Brush Holder Assembler Name Role Phone Vivi HENNING, Celestina Givens Primary Care Physician Encounter [facility] Date(s): 10/17/22 - 11/16/22 [facility] [address] [place], [place] [address] Allergies, Adverse Reactions, Alerts No Known Allergies Immunizations Given and Recorded Vaccine Date Status Refusal Reason tetanus/diphtheria/pertussis, acel(Tdap) 1 08/21/22 Given tetanus/diphtheria/pertussis, acel(Tdap) 2 08/13/12 Given [id number] 12y+ bivalent booster vax 06/14/22 Recorded influenza [...] inactivated 6 07/31/12 Gi hali SARS-CoV-2 mRNA (zxmshfh-cwmw-xeydy) vax 02/14/22 Recorded SARS-CoV-2 (COVID-19) mRNA BNT-162b2 vac 05/06/21 Given SARS-CoV-2 (COVID-19) mRNA BNT-162b2 vac 11/04/20 Recorded SARS-CoV-2 (COVID-19) mRNA BNT-162b2 vac 10/14/20 Recorded pneumococcal 23-valent vaccine 7 04/07/19 Given 1Result Comment: [facility]# [id number] 2Admin Note: VIM dated 08/22/11 GIVEN TODAY 3Result Comment: [facility]# [id number] 4Result Comment: [05/25/2018] [facility] lot number [id number] exp 01/26/2019 [facility] [id number] 5Result Comment: [08/20/2017] [facility] [id number] 6Admin Note: VIM dated 01/29/12 GIVEN TODAY 7Result Comment: [facility]#[id number] Medications acetaminophen 500 mg oral capsule 2 [...] Stop, 04/10/2215:14:00 EDT, Route to Pharmacy Electronically, [id number], [facility]/pharmacy #2025, 158, cm, 04/10/22 14:56:00 EDT, Height, 143,... Start Date: 04/10/22 Status: Ordered amLODIPine 10 mg oral tablet 1 tablet, By Mouth, Daily, # 90 tablet, 0 Refills, Maintenance, 10/23/22 12:47:00 EDT, [facility], 157, cm, 09/13/22 15:58:00 EST, Height, 145, kg, 08/29/22 20:13:00 EST, Dry Weight Start Date: 10/23/22 Status: Ordered budesonide-formoterol 80 mcg-4.5 mcg/inh inhalation aerosol with adapter 2, puffs, Inhalation, 2 times a day, PRN, use with spacer chamber, rinse mouth and throat after use, # 10.2 Gm, Refills 5, Tot. Refills 5, Maintenance, 09/12/22 11:06:00 EST, Aerosol, Route to Pharmacy Electronically, [id number]... Start Date: 09/12/22 Status: Ordered cilostazol 100 mg oral tablet 1 tablet, By Mouth, 2 times a day, # 60 tablet, 0 Refills, Maintenance, 11/15/22 22:18:00 EDT, [facility], 157, cm, 10/30/22 13:53:00 EDT, Height, 145, [...] 13:30:00 EST, Route to Pharmacy Electronically, [facility]/pharmacy #2025, Partial fill upon patient request if the p... Start Date: 08/31/22 Status: Ordered Flonase 50 mcg/inh nasal spray See Instructions, 2 sprays Nares twice daily x 1 week, then once daily x 1-2 weeks until symptoms improve, # 16 Gm, 0 Refills, Maintenance, 02/28/21 16:31:00 EDT, [place], [facility]/pharmacy #2025, Partial fill upon patient request if the prescription is for... Start Date: 02/28/21 Status: Ordered FLUoxetine 20 mg oral capsule 1, capsule, By Mouth, Daily, # 90 capsule, Refills 1, Maintenance, 10/23/22 12:47:00 EDT, Route to Pharmacy Electronically, [facility], 157, cm, 09/13/22 15:58:00 EST, Height, 145, kg, 08/29/22 20:13:00 EST, Dry Weight Start Date: 10/23/22 Status: Ordered furosemide 20 mg oral tablet 1, tablet, By Mouth, Daily, MAY REPEAT IF NEEDED IN 2 HOURS, # 30 tablet, Refills 0, Maintenance, 11/08/22 16:39:00 EDT, Route to Pharmacy Electronically, [facility], 157, cm, 10/30/22 13:53:00 EDT, Height, 145, kg, 08/29/22 20:13:00 EST, Dry Weight Start Date: 11/08/22 Status: Ordered gabapentin 300 mg oral capsule 600 mg, 2, capsule, By Mouth, 3 times a day, # 180 capsule, Refills 3, Tot. Refills 3, Maintenance,08/25/22 22:35:00 EST, Route to Pharmacy Electronically, [facility]/pharmacy #5, Partial fill upon patient request if [...] 1 Refills, Maintenance, 07/03/22 14:41:00 EST, Tablet, [facility]/pharmacy #2024, Partial fill upon patient request if the prescription is for a schedule II opioid dr... Start Date: 07/03/22 Status: Ordered meclizine 25 mg oral tablet See Instructions, PRN Dizziness, 1 tablet By Mouth 3 times a day, # 30 tablet, 0 Refills, Maintenance, 05/11/21 13:11:00 EDT, [facility]/pharmacy #2024, Partial fill upon patient request if the prescriptionis for a schedule II opioid drug., 160.02, cm, 10/0... Start Date: 05/11/21 Status: Ordered meloxicam 15 mg oral tablet See Instructions, TAKE 1 TABLET BY MOUTH DAILY WITH FOOD. LABS NEEDED FOR FURTHER REFILLS, # 30 tablet, 3 Refills, Maintenance, 10/18/22 21:31:00 EDT, [facility] STORE 70[facility], 157, cm, 09/13/22 15:58:00 EST,Height, 145, kg, [...] 09/05/22 16:29:00 EST, Route to Pharmacy Electronically, [facility]/pharmacy #2024, Partialfill upon patient request if the prescription is fo... Start Date: 09/05/22 Stop Date: 09/12/22 Status: Ordered traMADol 50 mg oral tablet See Instructions, 2 tab po qam and one tab po q pm prn moderate to severe pain. 28 days. mass pat ok, # 81 tablet, 0 Refills, Maintenance, 10/29/22 21:38:00 EDT, [facility]/pharmacy #2025, 157, cm, 09/13/2314:58:00 EST, Height, 145, kg, 08/29/22 20:13:00 E... Start Date: 10/29/22 Status: Ordered zolpidem 10 mg oral tablet 1 tablet = 10 mg, By Mouth, Daily at bedtime, PRN for sleep, for 30 days, masspat check may fill less, # 30 tablet, 0 Refills, Acute 11/20/22 16:47:00 EDT, 10/21/22 16:47:00 EDT, Tablet, [facility]/pharmacy#5, 157, cm, 09/13/22 15:58:00 EST, Height, 145... [...] Name: Celestina Trinidad MD Position: [facility] Primary Care Physician Member Role: PCP Address: Address: [address] [place] [address] Name: Hemalatha Lucas RN Position: [facility] RN Member Role: Primary Care Nurse Name: Lauren Mack RN Position: [facility] AMB Nurse Member Role: Primary Care Nurse Name: Madelaine Ruiz RN Position: [facility] RN Member Role: Primary Care Nurse Name: Lora Santiago RN Position: [facility] RN Member Role: Primary Care Nurse Name: Mayco Ro RN Position: [facility] RN Member Role: Primary Care Nurse Name: Heydi Potts RN Position: [facility] RN Member Role: Primary Care Nurse Name: Janice Romnao LPN Position: [facility] RN Member Role: Primary Care Nurse Name: Nadya Low RN Position: [facility] RN Member Role: Primary Care Nurse Name: Mirna Greenfield RN Position: [facility] RN Member Role: Primary Care Nurse Name: Nessa Bonilla RN Position: [facility] Armature Coil Winder Member Role: Primary Care Nurse Care Team Related Persons Name: ROSETTA DINESH Address: home [address] [address] Name: BON DE Address: [address] [address]
--- OUTSIDE RECORDS SUMMARY | 2024-06-24 14:25 | XMS_ITS | Continuity of Care Document ---
Author Organization [facility] Address [address] [place] [address]- Care Team Providers Care Rating Examiner Name Role Phone Vivi HENNING, Celestina Givens Primary Care Physician [place] [facility] 12/23/23 [facility] [address] [place] [address]- Allergies, Adverse Reactions, Alerts No Known Allergies [...] 08/21/22 Given tetanus/diphtheria/pertussis, acel(Tdap) 7 08/13/12 Given HPEF-[id number]-6qKKS 12y+ bivalent booster vax 06/14/22 Recorded SARS-CoV-2 mRNA (ssekbfx-nlxh-gfydm) vax 02/14/22 Recorded SARS-CoV-2 (COVID-19) mRNA BNT-162b2 vac 05/06/21 Given SARS-CoV-2 (COVID-19) mRNA BNT-162b2 vac 11/04/20 Recorded SARS-CoV-2 (COVID-19) mRNA BNT-162b2 vac 10/14/20 Recorded pneumococcal 23-valent vaccine 8 04/07/19 Given 1Result Comment: screening negative 2Result Comment: [facility]# [id number] 3Result Comment: [05/25/2018] [facility] lot number [id number] exp 01/26/2019 [facility] [id number] 4Result Comment: [08/20/2017] [facility] [id number] 5Admin Note: VIM dated 01/29/12 GIVEN TODAY 6Result Comment: [facility]# [id number] 7Admin Note: VIM dated 08/22/11 GIVEN TODAY 8Result Comment: [facility]#[id number] Medications acetaminophen 500 mg oral capsule 2 [...] Gm, 0 Refills, Maintenance, 02/28/21 16:31:00 EDT, [place], [facility]/pharmacy #2024, Partial fill [...] tablet, 0 Refills, Maintenance, 10/12/23 6:42:00 EDT, [facility]/pharmacy #2024, 157.5, cm, [...] Code MRI Safety Implantable Status Assigning Authority [id number] 731 Unknown [id number] Unknown 08/26/24 Unknown Unknown Active GS1 Patient Care team information Care Team Personnel Name: Celestina Trinidad MD Position: [facility] Physician - Primary Care Member Role: PCP Address: Address: [address] [place] [address] Name: Hemalatha Lucas RN Position: [facility] RN Member Role: Primary Care Nurse Name: Lauren Mack RN Position: [facility] AMB Nurse Member Role: Primary Care Nurse Name: Madelaine Ruiz RN Position: [facility] RN Member Role: Primary Care Nurse Name: Lora Santiago RN Position: [facility] SN RN Member Role: Primary Care Nurse Name: Mayco Ro RN Position: [facility] RN Member Role: Primary Care Nurse Name: Heydi Potts RN Position: [facility] SN RN Member Role: Primary Care Nurse Name: Janice Romano LPN Position: [facility] RN Member Role: Primary Care Nurse Name: Nadya Low RN Position: [facility] RN Member Role: Primary Care Nurse Name: Mirna Greenfield RN Position: [facility] RN Member Role: Primary Care Nurse Name: Nessa Bonilla RN Position: [facility] [employer]ovoltaic Designer Member Role: Primary Care Nurse Care Team Related Persons Name: DINESH SARGENT Address: home [address] [place] [address] Name: BON DE Address: home [address] [address]
--- OUTSIDE RECORDS SUMMARY | 2024-06-24 14:25 | XMS_ITS | Continuity of Care Document ---
Author Organization [facility] Address [address] [place] [address]- Care Team Providers Care Machining And Assembly Supervisor Name Role Phone Florentino AHN, Elder Hannah Primary Care Physician Encounter [facility] Date(s): 02/17/21 - 03/19/21 [facility] [address] [place] [address]- Allergies, Adverse Reactions, Alerts Substance Reaction Severity [...] Given 1Result Comment: [facility]# [id number] 2Result Comment: [05/25/2018] [facility] lot number [id number] exp 01/26/2019 [facility] 21405-928-44 3Result Comment: [08/20/2017] [facility] [id number] 4Admin Note: VIM dated 01/29/12 GIVEN TODAY 5Result Comment: [facility]#[id number] 6Admin Note: VIM dated 08/22/11 GIVEN TODAY [...] 10/27/20 14:48:00 EDT, Route to Pharmacy Electronically, [id number], [facility]/pharmacy #2024, 160.02, cm, 10/19/20 11:04:00 EDT, Height, 156... Start Date: 10/27/20 Status: Ordered betamethasone-clotrimazole 0.05%-1% topical cream 1 application, Topically, 2 times a day, # 45 Gm, 0 Refills, Maintenance, 12/27/20 14:13:00 EDT, [place], [facility]/pharmacy #2024, Partial fill upon patient request if the prescription is for a schedule II opioid drug., 1 application Topically 2 times a day,... Start Date: 12/27/20 Status: Ordered diclofenac 1% topical gel See Instructions, APPLY TOPICALLY 4 TIMES A DAY, # 100 Gm, 1 Refills, 10/27/20 12:37:00 EDT, [facility]/pharmacy #2024, 25, APPLY TOPICALLY 4 TIMES A DAY, 160.02, cm, 10/19/20 11:04:00 EDT, Height, 156.81, kg, 10/19/20 11:04:00 EDT, Dry Weight Start Date: 10/27/20 Status: Ordered Flonase 50 mcg/inh nasal spray See Instructions, 2 sprays Nares twice daily x 1 week, then once daily x 1-2 weeks until symptoms improve, # 16 Gm, 0 Refills, Maintenance, 02/28/21 16:31:00 EDT, [place], [facility]/pharmacy #202, Partial fill upon patient request if the prescription is for... Start Date: 02/28/21 Status: Ordered FLUoxetine 10 mg oral capsule 10 mg, 1, capsule, By Mouth, Daily, Take with 20mg capsule for total of 30mg daily, # 90 capsule, Refills 0, Tot. Refills 0, Maintenance, 03/11/21 12:00:00 EDT, Route to Pharmacy Electronically, [facility]/pharmacy #202, Partial fill upon patient request if... Start Date: 03/11/21 Status: Ordered FLUoxetine 20 mg oral capsule 20 mg, 1, capsule, By Mouth, Daily, # 30 capsule, Refills 5, Tot. Refills 5, Maintenance, 12/20/20 14:39:00 EDT, Route to Pharmacy Electronically, [facility]/pharmacy #202, replacing 10mg dose, 160.02, cm,12/20/20 11:59:00 EDT, Height, 156.81, kg, 10/19/20... Start Date: 12/20/20 Status: Ordered levothyroxine 0.137 mg oral tablet See Instructions, Take 1 tablet by mouth on days 1-6, then take 2 tablets by mouth on day 7, # 121 tablet, 5 Refills, Maintenance, 12/07/20 9:46:00 EDT, [facility]/pharmacy #2024, 160.02, cm, 10/19/20 11:04:00 EDT, Height, 156.81, kg, 10/19/20 11:04:00 EDT,... Start Date: 12/07/20 Status: Ordered meclizine 25 mg oral tablet See Instructions, PRN Dizziness, 1 tablet By Mouth 3 times a day, # 30 tablet, 0 Refills, Acute 03/31/21 12:00:00 EDT, 03/17/21 9:08:00 EDT, [facility]/pharmacy #2024, Partial fill upon patient request if the prescription is for a schedule II opioid drug., 1... Start Date: 03/17/21 Stop Date: 03/31/21 Status: Ordered meloxicam 15 mg oral tablet 1 tablet, By Mouth, Daily, WITH FOOD., # 30 tablet, 1 Refills, Maintenance, 02/13/21 16:32:00 EDT, [facility] STORE 08325, 160.02, cm, 01/04/21 10:42:00 EDT, Height, 143, [...] tablet, 2 Refills, Maintenance, 02/10/21 12:37:00 EDT, [facility]/pharmacy #202, 160.02, cm, 01/04/21 10:42:00 EDT, Height, 143, [...]
--- OUTSIDE RECORDS SUMMARY | 2024-06-24 14:25 | XMS_ITS | Continuity of Care Document ---
Author Organization [facility] Address [address] [place] [address]- Care Team Providers Care Residential Door Unit Installer Name Role Phone Celestina Trinidad MD Primary Care Physician [place] [facility] 02/19/24 [facility] [address] [place] [address]- Encounter Diagnosis Diabetes mellitus, type 2(Discharge Diagnosis) - 02/12/24 Chronic low back pain(Discharge Diagnosis) - 02/12/24 Muscle spasm of left shoulder(Discharge Diagnosis) - 02/12/24 Attending Physician: Celestina Trinidad MD Allergies, Adverse [...] 08/21/22 Given tetanus/diphtheria/pertussis, acel(Tdap) 7 08/13/12 Given THQD-NqC-4zUCG 12y+ bivalent booster vax 06/14/22 Recorded SARS-CoV-2 mRNA (uumpbgr-xtsd-arxtv) vax 02/14/22 Recorded SARS-CoV-2 (COVID-19) mRNA BNT-162b2 vac 05/06/21 Given SARS-CoV-2 (COVID-19) mRNA BNT-162b2 vac 11/04/20 Recorded SARS-CoV-2 (COVID-19) mRNA BNT-162b2 vac 10/14/20 Recorded pneumococcal 23-valent vaccine 8 04/07/19 Given 1Result Comment: screening negative 2Result Comment: [facility]# [id number] 3Result Comment: [05/25/2018] [facility] lot number [id number] exp 01/26/2019 [facility] 97230-926-85 4Result Comment: [08/20/2017] [facility] [id number] 5Admin Note: VIM dated 01/29/12 GIVEN TODAY 6Result Comment: [facility]# [id number] 7Admin Note: VIM dated 08/22/11 GIVEN TODAY 8Result Comment: [facility]#[id number] Medications acetaminophen 500 mg oral capsule 2 [...] Soft Stop, 12/06/23 17:28:00 EDT, [facility]/pharmacy #8788, Partial fill upon patient request if the [...] Refills, Maintenance, 02/01/24 13:44:00 EDT, [facility], 30, APPLY TO AFFECTED AREA 4 TIMES [...] Gm, 0 Refills, Maintenance, 02/28/21 16:31:00 EDT, [place], [facility]/pharmacy #5, Partial fill upon patient request if the prescription is for... Start Date: 02/28/21 Status: Ordered FLUoxetine 10 mg oral capsule 1, capsule, By Mouth, Daily, INSTR:TO BE TAKEN WITH 20MG CAPSULES TO EQUAL 30MG DAILY, # 90 capsule, Refills 1, Maintenance, 01/25/24 9:11:00 EDT, Route to Pharmacy Electronically, [facility], 157.5, cm, 01/22/24 10:31:00 EDT, Height, 145.9, kg,... Start Date: 01/25/24 Status: Ordered gabapentin 300 mg oral capsule 600 mg, 2, capsule, By Mouth, 3 times a day, # 180 capsule, Refills 3, Tot. Refills 3, Maintenance,08/25/22 22:35:00 EST, Route to Pharmacy Electronically, [facility]/pharmacy #2025, Partial [...] tablet, 1 Refills, Maintenance, 12/28/23 16:17:00 EDT, [facility] STORE 21043, 157.5, cm, 10/18/23 15:15:00 EDT, Height, 145.9, kg, 05/22/23 7:39:00 EDT, Dry Weight Start Date: 12/28/23 Status: Ordered meclizine 25 mg oral tablet See Instructions, PRN Dizziness, 1 tablet By Mouth 3 times a day, # 30 tablet, 0 Refills, Maintenance, 02/27/23 10:43:00 EDT, [facility]/pharmacy #202, Partial fill upon patient request [...] Refills, Maintenance, 01/22/24 11:02:00 EDT, ER Tablet, [facility]/pharmacy #2025, Partial [...] Dates Health Status Cl inical Service Informant Diabetes mellitus, type 2 Discharge Diagnosis 02/12/24 Chronic low back pain Discharge Diagnosis 02/12/24 Muscle spasm of left shoulder Discharge Diagnosis 02/12/24 Vital Signs Most recent to oldest [Reference Range]: 1 Height 157.5 cm (02/12/24 2:48 PM) Oxygen Saturation [94-100 %] 97 % (02/12/24 2:48 PM) Pulse Rate [55-90 bpm] 73 bpm (02/12/24 2:48 PM) Blood Pressure [90-138/55-84 mm Hg] 138/ 80mm Hg (02/12/24 2:48 PM) Mode of Delivery (Oxygen) Room air (02/12/24 2:48 PM) Blood pressure sites Arm, left (02/12/24 2:48 PM) Social History Social History Type Response [...] Code MRI Safety Implantable Status Assigning Authority [id number] [id number] Unknown [id number] Unknown 08/26/24 Unknown Unknown Active GS1 Patient Care team information Care Team Personnel Name: Celestina Trinidad MD Position: [facility] Physician - Primary Care Member Role: PCP Address: Address: [address] [place] [id number] Name: Hemalatha Lucas RN Position: [facility] RN Member Role: Primary Care Nurse Name: Lauren Mack RN Position: [facility] AMB Nurse Member Role: Primary Care Nurse Name: Madelaine Ruiz RN Position: [facility] RN Member Role: Primary Care Nurse Name: Lora Santiago RN Position: [facility] SN RN Member Role: Primary Care Nurse Name: Mayco Ro RN Position: [facility] RN Member Role: Primary Care Nurse Name: Heydi Potts RN Position: [facility] SN RN Member Role: Primary Care Nurse Name: Janice Romano LPN Position: [facility] RN Member Role: Primary Care Nurse Name: Nadya Low RN Position: [facility] RN Member Role: Primary Care Nurse Name: Mirna Greenfield RN Position: [facility] RN Member Role: Primary Care Nurse Name: Nessa Bonilla RN Position: [facility] [employer] Dyeing Machine Feeder Member Role: Primary Care Nurse Care Team Related Persons Name: DINESH SARGENT Address: home [address] [place] [address] Name: BON DE Address: home [address] [address]
--- OUTSIDE RECORDS SUMMARY | 2024-06-24 14:25 | XMS_ITS | Continuity of Care Document ---
Author Organization [facility] Address [address] [place] [address]- Care Team Providers Care Manager Program Management Name Role Phone Celestina Trinidad MD Primary Care Physician Encounter [facility] Date(s): 09/26/23 - 10/26/23 [facility] [address] [place] [address]- Allergies, Adverse Reactions, Alerts No Known Allergies [...] 08/21/22 Given tetanus/diphtheria/pertussis, acel(Tdap) 7 08/13/12 Given CQSX-XaP-9nIFL 12y+ bivalent booster vax 06/14/22 Recorded SARS-CoV-2 mRNA (nrkbbqr-pfpw-qzetw) vax 02/14/22 Recorded SARS-CoV-2 (COVID-19) mRNA BNT-162b2 vac 05/06/21 Given SARS-CoV-2 (COVID-19) mRNA BNT-162b2 vac 11/04/20 Recorded SARS-CoV-2 (COVID-19) mRNA BNT-162b2 vac 10/14/20 Recorded pneumococcal 23-valent vaccine 8 04/07/19 Given 1Result Comment: screening negative 2Result Comment: [facility]# [id number] 3Result Comment: [05/25/2018] [facility] lot number [id number] exp 01/26/[address] [facility] [id number] 4Result Comment: [08/20/2017] [facility] [id number] 5Admin Note: VIM dated 01/29/12 GIVEN TODAY 6Result Comment: [facility]# [id number] 7Admin Note: VIM dated 08/22/11 GIVEN TODAY 8Result Comment: [facility]#[id number] Medications acetaminophen 500 mg oral capsule 2 [...] to Pharmacy Electronically, [facility]/pharmacy #2025, Partial fill upon patient request if the presc... Start Date: 05/17/23 Stop Date: 05/17/24 Status: Ordered diclofenac 1% topical gel See Instructions, APPLY TO AFFECTED AREA 4 TIMES A DAY, # 100 Gm, 1 Refills, Maintenance, 09/02/23 8:08:00 EST, [facility], 25, APPLY TO AFFECTED AREA 4 TIMES [...] Gm, 0 Refills, Maintenance, 02/28/21 16:31:00 EDT, [place], Partial fill upon patient request [...] 07/31/23 19:01:00 EST, [facility], cm, 07/13/23 9:57:00 EST, Height, 145.9, kg, 05/22/23 7:39:00 EDT, Dry Weight Start Date: 07/31/23 Status: Ordered gabapentin 300 mg oral capsule 600 mg, 2, capsule, By Mouth, 3 times a day, # 180 capsule, Refills 3, Tot. Refills 3, Maintenance,08/25/22 22:35:00 EST, [facility] Partial fill upon patient [...] tablet, 0 Refills, Maintenance, 10/08/23 17:51:00 EDT, [facility]/pharmacy #2025, Partial [...] Code MRI Safety Implantable Status Assigning Authority [id number] 731 Unknown [id number] Unknown 08/26/24 Unknown Unknown Active GS1 Patient Care team information Care Team Personnel Name: Celestina Trinidad MD Position: [facility] Physician - Primary Care Member Role: PCP Address: Address: [address] [place] [address] Name: Hemalatha Lucas RN [facility] Bonilla RN Position: [facility] Gold Tooler Member Role: Primary Care Nurse Care Team Related Persons Name: ROSETTA DINESH Address: home [address] [place] [address] Name: BON DE Address: [address] [address]
--- OUTSIDE RECORDS SUMMARY | 2024-06-24 14:25 | XMS_ITS | Continuity of Care Document ---
Author Organization [facility] Address [address] [place] [address]- Care Team Providers Care Claim Clinician Name Role Phone Yolanda AHN, Padmaja Pelayo Primary Care Physician [place] [facility](s): 11/14/21 - 11/21/21 [facility] [address] [place] [address]- Encounter Diagnosis Hyperkeratosis of skin(Discharge Diagnosis) - 11/14/21 Mild persistent asthma without complication(Discharge Diagnosis) - 11/14/21 Attending Physician: Madeline Lux NP Allergies, Adverse [...] Given 1Result Comment: [facility]# [id number] 2Result Comment: [05/25/2018] [facility] lot number [id number] exp 01/26/2019 [facility] [id number] 3Result Comment: [08/20/2017] [facility] [id number] 4Admin Note: VIM dated 01/29/12 GIVEN TODAY 5Result Comment: [facility]#[id number] 6Admin Note: VIM dated 08/22/11 GIVEN TODAY [...] Replace Required Details, Route to Pharmacy Electronically, [id number]... Start Date: 10/28/21 Status: Ordered Aerochamber w/Mask [...] 07/25/21 16:53:00 EST, Route to Pharmacy Electronically, [id number], [facility]/pharmacy #2025, 160.02, cm, 07/25/21 16:20:00 EST, Height, [...] Gm, 0 Refills, Maintenance, 02/28/21 16:31:00 EDT, [place], [facility]/pharmacy #202, Partial fill upon patient request if the prescription is for... Start Date: 02/28/21 Status: Ordered FLUoxetine 10 mg oral capsule 10 mg, 1, capsule, By Mouth, Daily, Take with 20mg capsule for total of 30mg daily, # 90 capsule, Refills 1, Tot. Refills 1, Maintenance, 09/19/21 12:45:00 EST, Route to Pharmacy Electronically, [facility]/pharmacy #202, Partial fill upon patient request if... Start Date: 09/19/21 Status: Ordered FLUoxetine 20 mg oral capsule 20 mg, 1, capsule, By Mouth, Daily, Take with Fluoxetine 10mg for a total of 30mg, # 90 capsule, Refills 1, Tot. Refills 1, Maintenance, 05/04/21 16:44:00 EDT, Route to Pharmacy Electronically, [facility]/pharmacy #202, replacing 10mg dose, 160.02, cm, 08/0... Start Date: 05/04/21 Status: Ordered levothyroxine 0.137 mg oral tablet See Instructions, TAKE 1 TABLET BY MOUTH ON DAYS 1-6, THEN TAKE 2 TABLETS BY MOUTH ON DAY 7, # 96 tablet, 1 Refills, [facility] ST[facility], 160.02, cm, 10/04/21 10:38:00 EST, Height, 143, kg, 01/04/21 10:42:00 EDT, Dry Weight Start Date: 11/08/21 Status: Ordered meclizine 25 mg oral tablet See Instructions, PRN Dizziness, 1 tablet By Mouth 3 times a day, # 30 tablet, 0 Refills, Maintenance, 05/11/21 13:11:00 EDT, [facility]/pharmacy #202, Partial fill upon patient request if [...] Dates Health Status Clinical Service Informant Mild persistent asthma without complication Discharge Diagnosis 11/14/21 Hyperkeratosis of skin Discharge Diagnosis 11/14/21 Vital Signs Most recent to oldest [Reference Range]: 1 Height 160.02 cm (11/14/21 3:33 PM) Oxygen Saturation [94-100 %] 98 % (11/14/21 3:33 PM) Pulse Rate [55-90 bpm] 68 bpm (11/14/21 3:33 PM) Blood Pressure [90-138/55-84 mm Hg] 110/ 78mm Hg (11/14/21 3:33 PM) Respiratory Rate [16-30 br/min] 18 br/mi n (11/14/21 3:33 PM) Blood pressure sites Arm, left (11/14/21 3:33 PM) Social History Social History Type Response Smoking Status Former smoker, quit more than 30 days ago; Other: smoked up to pack a day x 25 years; entered on: 11/14/21 Sex
--- OUTSIDE RECORDS SUMMARY | 2024-06-24 14:25 | XMS_ITS | Continuity of Care Document ---
Author Organization [facility] Address [address] [place] [address]- Care Team Providers Care Fur Stylist Name Role Phone Noe AHN, Mónica Graham Primary Care Physician Unava ilable Encounter [facility] Date(s): 01/09/22 - 02/08/22 [facility] [address] [place] [address]- Allergies, Adverse Reactions, Alerts No Known Allergies [...] [facility]# [id number] 2Result Comment: [05/25/2018] [facility] lot number [id number] exp 01/26/2019 [facility] [id number] 3Result Comment: [08/20/2017] [facility] [id number] 4Admin Note: VIM dated 01/29/12 GIVEN TODAY 5Result Comment: [facility]#[id number] 6Admin Note: VIM dated 08/22/11 GIVEN TODAY [...] Gm, 0 Refills, Maintenance, 02/28/21 16:31:00 EDT, [place], [facility]/pharmacy #202, Partial fill upon patient request if the prescription is for... Start Date: 02/28/21 Status: Ordered FLUoxetine 20 mg oral capsule 20 mg, 1, capsule, By Mouth, Daily, Take with Fluoxetine 10mg for a total of 30mg, # 90 capsule, Refills 1, Tot. Refills 1, Maintenance, 12/30/21 12:34:00 EDT, [facility] dose, 160.02, cm, 10/28... Start Date: 12/30/21 Status: Ordered levothyroxine 0.137 mg oral tablet See Instructions, TAKE 1 TABLET BY MOUTH ON DAYS 1-6, THEN TAKE 2 TABLETS BY MOUTH ON DAY 7, # 96 tablet, 1 Refills, [facility] STORE [facility]154, 160.02, cm, 10/04/21 10:38:00 EST, Height, 143, kg, 01/04/21 10:42:00 EDT, Dry Weight Start Date: 11/08/21 Status: Ordered meclizine 25 mg oral tablet See Instructions, PRN Dizziness, 1 tablet By Mouth 3 times a day, # 30 tablet, 0 Refills, Maintenance, 05/11/21 13:11:00 EDT, [facility]/pharmacy #202, Partial fill upon patient request if the prescriptionis for a schedule II opioid drug., 160.02, cm, 100... Start Date: 05/11/21 Status: Ordered meloxicam 15 mg oral tablet 1 tablet, By Mouth, Daily, WITH FOOD., # 30 tablet, 1 Refills, 02/08/22 14:04:00 EDT, [facility]/pharmacy #202, 160.02, cm, 01/12/22 11:09:00 EDT, Height, 143, [...]
--- OUTSIDE RECORDS SUMMARY | 2024-06-24 14:25 | XMS_ITS | Continuity of Care Document ---
Author Organization [facility] Address [address] [place] [address]- Care Team Providers Care Commercial Floor Covering Installer Name Role Phone Vivi HENNING, Celestina Givens Primary Care Physician [facility]23 - [facility]/02/23 [facility] [address] [place] [address]- Allergies, Adverse Reactions, Alerts No Known Allergies Immunizations Given and Recorded Vaccine Date Status Refusal Reason tetanus/diphtheria/pertussis, acel(Tdap) 1 08/21/22 Given tetanus/diphtheria/pertussis, acel(Tdap) 2 08/13/12 Given [id number] 12y+ bivalent booster vax 06/14/22 Recorded influenza [...] inactivated 6 07/31/12 Gi hali SARS-CoV-2 mRNA (hnufuds-zsgq-gizfq) vax 02/14/22 Recorded SARS-CoV-2 (COVID-19) mRNA BNT-162b2 vac 05/06/21 Given SARS-CoV-2 (COVID-19) mRNA BNT-162b2 vac 11/04/20 Recorded SARS-CoV-2 (COVID-19) mRNA BNT-162b2 vac 10/14/20 Recorded pneumococcal 23-valent vaccine 7 04/07/19 Given 1Result Comment: [facility]# [id number] 2Admin Note: VIM dated 08/22/11 GIVEN TODAY 3Result Comment: [facility]# [id number] 4Result Comment: [05/25/2018] [facility] lot number [id number] exp 01/26/2019 [facility] [id number] 5Result Comment: [08/20/2017] [facility] [id number] 6Admin Note: VIM dated 01/29/12 GIVEN TODAY 7Result Comment: [facility]#[id number] Medications acetaminophen 500 mg oral capsule 2 [...] Stop, 04/10/2215:14:00 EDT, Route to Pharmacy Electronically, [id number], [facility]/pharmacy #2025, 158, cm, 04/10/22 [...] 1 Refills, Maintenance, 01/08/23 9:36:00EDT, [facility], 50, APPLY TOPICALLY 4 TIMES A DAY, [...] Gm, 0 Refills, Maintenance, 02/28/21 16:31:00 EDT, [place], [facility]/pharmacy #202, Partial fill upon patient request if the prescription is for... Start Date: 02/28/21 Status: Ordered FLUoxetine 10 mg oral capsule 10 mg, 1, capsule, By Mouth, Daily, to be taken with 20mg capsules to equal 30mg daily, # 90 capsule, Refills 1, Tot. Refills 1, Maintenance, 04/03/23 11:25:00 EDT, Route to Pharmacy Electronically, [facility]/pharmacy #2024, Partial fill upon patient reques... Start Date: 04/03/23 Status: Ordered FLUoxetine 20 mg oral capsule 1, capsule, By Mouth, Daily, # 90 capsule, Refills 1, Tot. Refills 1, Maintenance, 04/03/23 11:23:00 EDT, Route to Pharmacy Electronically, [facility]/pharmacy #2024, 157, cm, 03/14/23 11:02:00 EDT, Height,145, kg, 08/29/22 20:13:00 EST, Dry Weight Start Date: 04/03/23 Status: Ordered gabapentin 300 mg oral capsule 600 mg, 2, capsule, By Mouth, 3 times a day, # 180 capsule, Refills 3, Tot. Refills 3, Maintenance,08/25/22 22:35:00 EST, Route to Pharmacy Electronically, [facility]/pharmacy #2024, Partial fill upon patient [...] tablet, 2 Refills, Maintenance, 02/27/23 7:25:00 EDT, [facility] STORE [facility]3499, 157, cm, 12/08/22 14:27:00 EDT, Height, 145, kg, 08/29/22 20:13:00 EST, Dry... Start Date: 02/27/23 Status: Ordered meclizine 25 mg oral tablet See Instructions, PRN Dizziness, 1 tablet By Mouth 3 times a day, # 30 tablet, 0 Refills, Maintenance, 02/27/23 10:43:00 EDT, [facility]/pharmacy #2024, Partial fill upon patient request if the prescriptionis for a schedule II opioid drug., 157, cm, ... Start Date: 02/27/23 Status: Ordered meloxicam 15 mg oral tablet See Instructions, TAKE 1 TABLET BY MOUTH DAILY WITH FOOD. LABS NEEDED FOR FURTHER REFILLS, # 30 tablet, 1 Refills, Maintenance, 05/01/23 14:45:00 EDT, [facility]/pharmacy #2025, 157, cm, 03/14/23 11:02:00 EDT, [...] tablet, 0 Refills, Maintenance, 02/20/23 17:17:00 EDT, [facility]/pharmacy #5, 157, cm, 12/08/2313:27:00 EDT, Height, [...] Position: [facility] Physician - Primary Care Member Role: PCP Address: Address: [address] [place] [address] Name: Hemalatha Lucas RN [facility] [...] Care Nurse Name: Nessa Bonilla RN Position: [facility] Hospital Quilter Fixer Member Role: Primary Care Nurse Care Team Related Persons Name: ROSETTA DINESH Address: home [address] [place] [address] Name: BON DE Address: home [address] [place] [id number]
--- OUTSIDE RECORDS SUMMARY | 2024-06-24 14:25 | XMS_ITS | Continuity of Care Document ---
Author Organization [facility] Address [address] [place] [address]- Care Team Providers Care Canceling And Cutting Control Clerk Name Role Phone Florentino AHN, Elder Hannah Primary Care Physician [facility] 12[facility]20 - 01/16/21 [facility] [address] [place] [address]- Allergies, Adverse Reactions, Alerts Substance Reaction Severity [...] tetanus/diphtheria/pertussis, acel(Tdap) 6 08/13/12 Given 1Result Comment: [facility]# [id number] 2Result Comment: [05/25/2018] [facility] lot number [id number] exp 01/26/2019 [facility] [id number] 3Result Comment: [08/20/2017] [facility] [id number] 4Admin Note: VIM dated 01/29/12 GIVEN TODAY 5Result Comment: [facility]#[id number] 6Admin Note: VIM dated 08/22/11 GIVEN TODAY [...] 10/27/20 14:48:00 EDT, Route to Pharmacy Electronically, [id number], [facility]/pharmacy #2024, 160.02, cm, 10/19/20 11:04:00 [...] Refills, Maintenance, 12/07/20 9:46:00 EDT, [facility]/pharmacy #5, 160.02, cm, 10/19/20 11:04:00 EDT, Height, 156.81, kg, 10/19/20 11:04:00 EDT,... Start Date: 12/07/20 Status: Ordered meloxicam 15 mg oral tablet 1 tablet, By Mouth, Daily, WITH FOOD., # 30 tablet, 1 Refills, Maintenance, 12/20/20 7:39:00 EDT, [facility], 160.02, cm, 10/19/20 11:04:00 EDT, Height, 156.81, [...] Refills, Maintenance, 09/13/20 16:54:00 EST, [facility]/pharmacy #5, 161, cm, 08/18/20 15:29:00 EST, [...]
--- OUTSIDE RECORDS SUMMARY | 2024-06-24 14:25 | XMS_ITS | Continuity of Care Document ---
Author Organization [facility] Address [address] [place] [address]- Care Team Providers Care Gut Carrier Name Role Phone Celestina Trinidad MD Primary Care Physician [place] [facility] [place] 10/08/23 - 11/07/23 [facility] [address] [place] [address]- Allergies, Adverse Reactions, Alerts No Known Allergies [...] 08/21/22 Given tetanus/diphtheria/pertussis, acel(Tdap) 7 08/13/12 Given ETKV-LkQ-0qHUQ 12y+ bivalent booster vax 06/14/22 Recorded SARS-CoV-2 mRNA (aqlrhaz-uyeb-sygku) vax 02/14/22 Recorded SARS-CoV-2 (COVID-19) mRNA BNT-162b2 vac 05/06/21 Given SARS-CoV-2 (COVID-19) mRNA BNT-162b2 vac 11/04/20 Recorded SARS-CoV-2 (COVID-19) mRNA BNT-162b2 vac 10/14/20 Recorded pneumococcal 23-valent vaccine 8 04/07/19 Given 1Result Comment: screening negative 2Result Comment: [facility]# [id number] 3Result Comment: [05/25/2018] [facility] lot number [id number] exp 01/26/2019 [facility] [id number] 4Result Comment: [08/20/2017] [facility] 10765-765-05 5Admin Note: VIM dated 01/29/12 GIVEN TODAY 6Result Comment: [facility]# [id number] 7Admin Note: VIM dated 08/22/11 GIVEN TODAY 8Result Comment: [facility]#[id number] Medications acetaminophen 500 mg oral capsule 2 [...] to Pharmacy Electronically, [facility]/pharmacy #2024, Partial fill [...] Gm, 0 Refills, Maintenance, 02/28/21 16:31:00 EDT, [place], Partial fill upon patient request [...] 19:01:00 EST, [facility]5, cm, 07/13/23 9:57:00 EST, Height, 145.9, kg, 05/22/23 7:39:00 EDT, Dry Weight Start Date: 07/31/23 Status: Ordered gabapentin 300 mg oral capsule 600 mg, 2, capsule, By Mouth, 3 times a day, # 180 capsule, Refills 3, Tot. Refills 3, Maintenance,08/25/22 22:35:00 EST, [facility]ically[facility] Partial fill upon patient request [...] Refills, Maintenance, 10/12/23 6:42:00 EDT, [facility]/pharmacy #2024, 157.5, cm, 07/13/23 9:57:00 EST, Height, 145.9, kg, 05/22/23 7:39:00 EDT, Dry Weight Start Date: 10/12/23 Status: Ordered meclizine 25 mg oral tablet See Instructions, PRN Dizziness, 1 tablet By Mouth 3 times a day, # 30 tablet, 0 Refills, Maintenance, 02/27/23 10:43:00 EDT, [facility]/pharmacy #2024, Partial fill upon patient request if the prescriptionis for a schedule II opioid drug., 157, cm, ... Start Date: 02/27/23 Status: Ordered meloxicam 15 mg oral tablet See Instructions, TAKE 1 TABLET BY MOUTH DAILY WITH FOOD., # 30 tablet, 5 Refills, Maintenance, 10/08/23 17:05:00 EDT, [facility]/pharmacy #2024, 157.5, cm, 07/13/23 9:57:00 EST, Height, 145.9, kg, :39:00 EDT, Dry Weight Start Date: 10/08/23 Status: Ordered metFORMIN 500 mg oral tablet, extended release 1 tablet = 500 mg, By Mouth, Daily, # 90 tablet, 1 Refills, Maintenance, 10/24/23 11:39:00 EDT, ER Tablet, [facility]/pharmacy #2024, Partial fill [...] Refills, Maintenance, 11/05/23 16:28:00 EDT, [facility]/pharmacy #2025, Partial [...] Code MRI Safety Implantable Status Assigning Authority [id number] Unknown [id number] Unknown 08/26/24 Unknown Unknown Active GS1 Patient Care team information Care Team Personnel Name: Celestina Trinidad MD Position: S Physician - Primary Care Member Role: PCP Address: Address: [address] [place] [address] Name: Hemalatha Lucas RN Position: [facility] [...] Nessa Bonilla RN Position: [facility] Electric Motor Mechanic Member Role: Primary Care Nurse Care Team Related Persons Name: ROSETTAROLADINESH Address: [address] [place] [address] Name: BON DE Address: home [address] [address]
--- OUTSIDE RECORDS SUMMARY | 2024-06-24 14:25 | XMS_ITS | Continuity of Care Document ---
Author Organization [facility] Address [address] [place] [address]- Care Team Providers Care Die Maker Trim Name Role Phone Noe AHN, Mónica Graham Primary Care Physician [facility]): [facility]21 - 05/05/21 [facility] [address] [place], [place] [address] Allergies, Adverse Reactions, Alerts [...] 1Result Comment: [facility]# [id number] 2Result Comment: [05/25/2018] [facility] lot number [id number] exp 01/26/2019 [facility] [id number] 3Result Comment: [08/20/2017] [facility] [id number] 4Admin Note: VIM dated 01/29/12 GIVEN TODAY 5Result Comment: [facility]#[id number] 6Admin Note: VIM dated 08/22/11 GIVEN TODAY [...] 10/27/20 14:48:00 EDT, Route to Pharmacy Electronically, [id number], [facility]/pharmacy #2024, 160.02, cm, 10/19/20 11:04:00 EDT, Height, 156... Start Date: 10/27/20 Status: Ordered betamethasone-clotrimazole 0.05%-1% topical cream 1 application, Topically, 2 times a day, # 45 Gm, 0 Refills, Maintenance, 12/27/20 14:13:00 EDT, Cream, [facility]/pharmacy #2024, Partial fill upon [...] Gm, 0 Refills, Maintenance, 02/28/21 16:31:00 EDT, [place], [facility]/pharmacy #2024, Partial fill upon patient request if the prescription is for... Start Date: 02/28/21 Status: Ordered FLUoxetine 10 mg oral capsule 10 mg, 1, capsule, By Mouth, Daily, Take with 20mg capsule for total of 30mg daily, # 90 capsule, Refills 1, Tot. Refills 1, Maintenance, 05/04/21 16:44:00 EDT, [facility]ically[facility] Partial fill upon patient request if... Start Date: 05/04/21 Status: Ordered FLUoxetine 20 mg oral capsule 20 mg, 1, capsule, By Mouth, Daily, Take with Fluoxetine 10mg for a total of 30mg, # 90 capsule, Refills 1, Tot. Refills 1, Maintenance, 05/04/21 16:44:00 EDT, [facility] Electronically[facility] replacing 10mg dose, 160.02, cm, 0... Start Date: 05/04/21 Status: Ordered levothyroxine 0.137 mg oral tablet See Instructions, Take 1 tablet by mouth on days 1-6, then take 2 tablets by mouth on day 7, # 121 tablet, 5 Refills, Maintenance, 12/07/20 9:46:00 EDT, [facility]/pharmacy #2024, 160.02, cm, 10/19/20 11:04:00 EDT, Height, 156.81, kg, 10/19/20 11:04:00 EDT,... Start Date: 12/07/20 Status: Ordered meloxicam 15 mg oral tablet 1 tablet, By Mouth, Daily, WITH FOOD., # 30 tablet, 1 Refills, [facility], 160.02, cm, 02/28/21 15:45:00 EDT, Height, 143, [...] 08/04/19 17:54:00 EST, [facility] Electronically, [facility], 161, cm, 08/04/19 14:44:00 EST, [...]
--- OUTSIDE RECORDS SUMMARY | 2024-06-24 14:25 | XMS_ITS | Continuity of Care Document ---
Author Organization [facility] Address [address] [place] [address]- Care Team Providers Care Mineral Engineer Name Role Phone Yolanda AHN, Padmaja Pelayo Primary Care Physician [facility] 10[facility]21 - 11/18/21 [facility] [address] [place] [address]- Allergies, Adverse Reactions, Alerts No Known Allergies [...] Given 1Result Comment: [facility]# [id number] 2Result Comment: [05/25/2018] [facility] lot number [id number] exp 01/26/2019 [facility] [id number] 3Result Comment: [08/20/2017] [facility] [id number] 4Admin Note: VIM dated 01/29/12 GIVEN TODAY 5Result Comment: [facility]#[id number] 6Admin Note: VIM dated 08/22/11 GIVEN TODAY [...] Replace Required Details, Route to Pharmacy Electronically, [id number]... Start Date: 10/28/21 Status: Ordered Aerochamber w/Mask [...] 07/25/21 16:53:00 EST, Route to Pharmacy Electronically, [id number], [facility]/pharmacy #5, 160.02, cm, 07/25/21 16:20:00 [...] Gm, 0 Refills, Maintenance, 02/28/21 16:31:00 EDT, [place], [facility]/pharmacy #2025, Partial fill upon patient request if the prescription is for... Start Date: 02/28/21 Status: Ordered FLUoxetine 10 mg oral capsule 10 mg, 1, capsule, By Mouth, Daily, Take with 20mg capsule for total of 30mg daily, # 90 capsule, Refills 1, Tot. Refills 1, Maintenance, 09/19/21 12:45:00 EST, Route to Pharmacy Electronically, [facility]/pharmacy #202, Partial fill upon patient [...] 7, # 96 tablet, 1 Refills, [facility] STORE 26809, 160.02, cm, 10/04/21 10:38:00 EST, Height, 143, kg, 01/04/21 10:42:00 EDT, Dry Weight Start Date: 11/08/21 Status: Ordered meclizine 25 mg oral tablet See Instructions, PRN Dizziness, 1 tablet By Mouth 3 times a day, # 30 tablet, 0 Refills, Maintenance, 05/11/21 13:11:00 EDT, [facility]/pharmacy #2025, Partial fill upon patient [...]
--- OUTSIDE RECORDS SUMMARY | 2024-06-24 14:25 | XMS_ITS | Continuity of Care Document ---
Author Organization [facility] Address [address] [place] [address]- Care Team Providers Care Camp Program Director Name Role Phone Yolanda AHN, Padmaja Pelayo Primary Care Physician [facility]): 09[facility]21 - 10/19/21 [facility] [address] [place] [address]- Allergies, Adverse Reactions, Alerts No Known Allergies [...] 08/13/12 Given 1Result Comment: [facility]# [id number] 2Result Comment: [05/25/2018] [facility] lot number [id number] exp 01/26/2019 [facility] [id number] 3Result Comment: [08/20/2017] [facility] [id number] 4Admin Note: VIM dated 01/29/12 GIVEN TODAY 5Result Comment: [facility]#[id number] 6Admin Note: VIM dated 08/22/11 GIVEN TODAY [...] Replace Required Details, Route to Pharmacy Electronically, [id number]... Start Date: 09/15/21 Status: Ordered Aerochamber w/Mask [...] 07/25/21 16:53:00 EST, Route to Pharmacy Electronically, [id number], [facility]/pharmacy #2025, 160.02, cm, 07/25/21 16:20:00 EST, [...] Gm, 0 Refills, Maintenance, 02/28/21 16:31:00 EDT, [place], [facility]/pharmacy #2024, Partial fill upon patient request if the prescription is for... Start Date: 02/28/21 Status: Ordered FLUoxetine 10 mg oral capsule 10 mg, 1, capsule, By Mouth, Daily, Take with 20mg capsule for total of 30mg daily, # 90 capsule, Refills 1, Tot. Refills 1, Maintenance, 09/19/21 12:45:00 EST, Route to Pharmacy Electronically, [facility]/pharmacy #2024, Partial fill upon patient request if... Start Date: 09/19/21 Status: Ordered FLUoxetine 20 mg oral capsule 20 mg, 1, capsule, By Mouth, Daily, Take with Fluoxetine 10mg for a total of 30mg, # 90 capsule, Refills 1, Tot. Refills 1, Maintenance, 05/04/21 16:44:00 EDT, Route to Pharmacy Electronically, [facility]/pharmacy #202, replacing 10mg dose, 160.02, cm, 08/0... Start Date: 05/04/21 Status: Ordered levothyroxine 0.137 mg oral tablet See Instructions, Take 1 tablet by mouth on days 1-6, then take 2 tablets by mouth on day 7, # 121 tablet, 5 Refills, Maintenance, 12/07/20 9:46:00 EDT, [facility]/pharmacy #202, 160.02, cm, 10/19/20 11:04:00 EDT, [...] 30 tablet, 3 Refills, 09/19/21 12:46:00 EST, [facility]/pharmacy #2025, 160.02, cm, 07/25/21 16:20:00 EST, [...] 13:47:00 EST, Aerosol, Route to Pharmacy Electronically, [id number], [facility]/pharmacy #2024, 160.02, cm, 07/25/21 16:20:00 EST, [place]... Start Date: 10/03/21 Status: Ordered traMADol 50 mg oral tablet 2 tablet = 100 mg, By Mouth, Every 12 hours, as needed for pain masspat checked, # 112 tablet, 0 Refills, Maintenance, 09/20/21 10:55:00 EST, [facility]/pharmacy #5, 160.02, cm, 07/25/21 16:20:00 EST, Height, 143, kg, 01/04/21 10:42:00 EDT, Dry Weight Start Date: 09/20/21 Stop Date: 10/18/21 Status: Ordered zolpidem 10 mg oral tablet 1 tablet = 10 mg, By Mouth, Daily at bedtime, PRN for sleep, for 30 days, masspat check may fill less, # 30 tablet, 3 Refills, Acute 01/20/22 10:19:00 EDT, 09/22/21 10:19:00 EST, Tablet, [facility]/pharmacy#5, 160.02, cm, 07/25/21 16:20:00 EST, Height,... [...]
--- OUTSIDE RECORDS SUMMARY | 2024-06-24 14:25 | XMS_ITS | Continuity of Care Document ---
Author Organization [facility] Address [address] [place] [address], [address] [place] [address]- Care Team Providers Care Tech Writer Name Role Phone Florentino AHN, Elder Hannah Primary Care Physician [facility]): [facility] - 10/06/20 [facility] [address] [place] [address], [address] [place] [address]- Attending Physician: Shae Mosqueda DO Referring Physician: [...] 08/13/12 Given 1Result Comment: [facility]# [id number] 2Result Comment: [05/25/2018] [facility] lot number [id number] exp 01/26/2019 [facility] [id number] 3Result Comment: [08/20/2017] [facility] [id number] 4Admin Note: VIM dated 01/29/12 GIVEN TODAY 5Result Comment: [facility]#[id number] 6Admin Note: VIM dated 08/22/11 GIVEN TODAY [...] 6 HOURS NEEDED FOR WHEEZE, [facility]/pharmacy #2024 Start Date: 05/27/19 Status: Ordered diclofenac 1% topical gel See Instructions, APPLY TOPICALLY 4 TIMES A DAY, # 100 Gm, 0 Refills, Maintenance, [facility], APPLY TOPICALLY 4 TIMES A DAY, 161, cm, 06/08/20 13:48:00 EST, Height Start Date: 07/12/20 Status: Ordered FLUoxetine 20 mg oral capsule 20 mg, 1, capsule, By Mouth, Daily, # 30 capsule, Refills 5, Tot. Refills 5, Maintenance, 05/13/20 9:34:00 EDT, Route to Pharmacy Electronically, [facility]/pharmacy #2024, replacing 10mg dose, 161, cm, 05/13/20 8:28:00 EDT, Height Start Date: 05/13/20 Status: Ordered levothyroxine 0.137 mg oral tablet See Instructions, Take 1 tablet by mouth on days 1-6, then take 2 tablets by mouth on day 7, # 121 tablet, 1 Refills, Maintenance, 08/31/20 7:32:00 EST, [facility]/pharmacy #2024, 161, cm, 08/18/20 15:29:00EST, Height Start Date: 08/31/20 Status: Ordered meloxicam 15 mg oral tablet 1 tablet, By Mouth, Daily, WITH FOOD., # 30 tablet, 1 Refills, Maintenance, 08/30/20 7:37:00 EST, [facility], 161, cm, 08/18/20 15:29:00 EST, Height Start [...] to Pharmacy Electronically, [facility]/pharmacy #2025, 161, cm, 08/04/19 14:44:00 EST, Height Start Date: 08/04/19 Stop Date: 08/18/19 Status: Ordered traMADol 50 mg oral tablet 2 tablet = 100 mg, By Mouth, Every 12 hours, for 30 days, as needed for pain masspat checked, # 120tablet, 2 Refills, Hard Stop 11/15/20 16:20:00 EDT, 08/17/20 16:20:00 EST, [facility]/pharmacy #5, 161,cm, 06/08/20 13:48:00 EST, Height Start [...] oldest [Reference Range]: 1 Height 161 cm (09/28/20 4:49 PM) Weight 155 kg (09/28/20 4:49 PM) Body Mass Index [18.5-24.99] 59.8 *>HHI* (09/28/20 4:49 PM) Social History Social History Type Response Smoking Status Current every day sm sultana; Tobacco user in household: No; Type: Cigarettes; Tobacco use times per day: 1/2 ppd; entered on: 07/08/15 Sex
--- OUTSIDE RECORDS SUMMARY | 2024-06-24 14:25 | XMS_ITS | Continuity of Care Document ---
Author Organization [facility] Address [address] [place] [address]- Care Team Providers Care Baked And Graphite Inspector Name Role Phone Vivi HENNING, Celestina Givens Primary Care Physician Encounter [facility] Date(s): 10/24/22 - 11/23/22 [facility] [address] [place] [address]- Allergies, Adverse Reactions, Alerts No Known Allergies Immunizations Given and Recorded Vaccine Date Status Refusal Reason tetanus/diphtheria/pertussis, acel(Tdap) 1 08/21/22 Given tetanus/diphtheria/pertussis, acel(Tdap) 2 08/13/12 Given [id number] 12y+ bivalent booster vax 06/14/22 Recorded influenza [...] inactivated 6 07/31/12 Gi hali SARS-CoV-2 mRNA (oluefvt-cmfa-gzysx) vax 02/14/22 Recorded SARS-CoV-2 (COVID-19) mRNA BNT-162b2 vac 05/06/21 Given SARS-CoV-2 (COVID-19) mRNA BNT-162b2 vac 11/04/20 Recorded SARS-CoV-2 (COVID-19) mRNA BNT-162b2 vac 10/14/20 Recorded pneumococcal 23-valent vaccine 7 04/07/19 Given 1Result Comment: [facility]# [id number] 2Admin Note: VIM dated 08/22/11 GIVEN TODAY 3Result Comment: [facility]# [id number] 4Result Comment: [05/25/2018] [employer] lot number [id number] exp 01/26/2019 [facility] [id number] 5Result Comment: [08/20/2017] [facility] [id number] 6Admin Note: VIM dated 01/29/12 GIVEN TODAY 7Result Comment: [facility]#[id number] Medications acetaminophen 500 mg oral capsule 2 [...] Stop, 04/10/2215:14:00 EDT, Route to Pharmacy Electronically, [id number], [facility]/pharmacy #2025, 158, cm, 04/10/22 14:56:00 EDT, Height, 143,... Start Date: 04/10/22 Status: Ordered amLODIPine 10 mg oral tablet 1 tablet, By Mouth, Daily, # 90 tablet, 0 Refills, Maintenance, 10/23/22 12:47:00 EDT, [facility] STORE 50112, 157, cm, 09/13/22 15:58:00 EST, Height, 145, kg, 08/29/22 20:13:00 EST, Dry Weight Start Date: 10/23/22 Status: Ordered budesonide-formoterol 80 mcg-4.5 mcg/inh inhalation aerosol with adapter 2, puffs, Inhalation, 2 times a day, PRN, use with spacer chamber, rinse mouth and throat after use, # 10.2 Gm, Refills 5, Tot. Refills 5, Maintenance, 09/12/22 11:06:00 EST, Aerosol, Route to Pharmacy Electronically, [id number]... Start Date: 09/12/22 Status: Ordered Compression Stockings [...] 100 Gm, 1 Refills, 09/22/22 7:28:00 EST, [facility]/pharmacy #2024, 25, APPLY TOPICALLY 4 [...] 08/31/22 13:30:00 EST, Route to Pharmacy Electronically, [facility]/pharmacy #2024, Partial fill upon patient request if the p... Start Date: 08/31/22 Status: Ordered Flonase 50 mcg/inh nasal spray See Instructions, 2 sprays Nares twice daily x 1 week, then once daily x 1-2 weeks until symptoms improve, # 16 Gm, 0 Refills, Maintenance, 02/28/21 16:31:00 EDT, [place], [facility], Partial fill upon patient request if the prescription is for... Start Date: 02/28/21 Status: Ordered FLUoxetine 20 mg oral capsule 1, capsule, By Mouth, Daily, # 90 capsule, Refills 1, Maintenance, 10/23/22 12:47:00 EDT, Route to Pharmacy Electronically, [facility], 157, cm, 09/13/22 15:58:00 EST, Height, 145, kg, 08/29/22 20:13:00 EST, Dry Weight Start Date: 10/23/22 Status: Ordered furosemide 20 mg oral tablet 1, tablet, By Mouth, Daily, MAY REPEAT IF NEEDED IN 2 HOURS, # 30 tablet, Refills 0, Maintenance, 11/21/22 14:18:00 EDT, Route to Pharmacy Electronically, [facility], 157, cm, 10/30/22 13:53:00 EDT, Height, 145, kg, 08/29/22 20:13:00 EST, Dry Weight Start Date: 11/21/22 Status: Ordered gabapentin 300 mg oral capsule 600 mg, 2, capsule, By Mouth, 3 times a day, # 180 capsule, Refills 3, Tot. Refills 3, Maintenance,08/25/22 22:35:00 EST, Route to Pharmacy Electronically, [facility]/pharmacy #2024, Partial fill upon patient [...] 0 Refills, Maintenance, 05/11/21 13:11:00 EDT, [facility]/pharmacy #2024, Partial fill upon patient request if the prescriptionis for a schedule II opioid drug., 160.02, cm, 10/0... Start Date: 05/11/21 Status: Ordered meloxicam 15 mg oral tablet See Instructions, TAKE 1 TABLET BY MOUTH DAILY WITH FOOD. LABS NEEDED FOR FURTHER REFILLS, # 30 tablet, 3 Refills, Maintenance, 10/18/22 21:31:00 EDT, [facility], 157, cm, 09/13/22 15:58:00 EST,Height, 145, kg, [...] 09/05/22 16:29:00 EST, Route to Pharmacy Electronically, [facility]/pharmacy #2024, Partialfill upon patient request [...] Trinidad MD Position: [facility] Primary Care Physician Member Role: PCP Address: Address: [address] [place] [id number] Name: Hemalatha Lucas RN Position: [facility] RN Member Role: Primary Care Nurse Name: Lauren Mack RN Position: [facility] AMB Nurse Member Role: Primary Care Nurse Name: Madelaine Ruiz RN Position: [facility] RN Member Role: Primary Care Nurse Name: Lora Santiago RN Position: [facility] SN RN Member Role: Primary [...] Care Nurse Name: Nessa Bonilla RN Position: [facility] Hospital Clinical Case Manager Member Role: Primary Care Nurse Care Team Related Persons Name: DINESH SARGENT Address: home [address] [place] [address] Name: BON DE Address: home [address] [address]
--- OUTSIDE RECORDS SUMMARY | 2024-06-24 14:25 | XMS_ITS | Continuity of Care Document ---
Author Organization [facility] Address [address] [place] [address]- Care Team Providers Care Beef Cattle Specialist Name Role Phone Vivi HENNING, Celestina Givens Primary Care Physician Encounter [facility] Date(s): 02/27/24 - 03/28/24 [facility] [address] [place] [address]- Allergies, Adverse Reactions, Alerts No Known Allergies [...] 08/21/22 Given tetanus/diphtheria/pertussis, acel(Tdap) 7 08/13/12 Given [id number] 12y+ bivalent booster vax 06/14/22 Recorded SARS-CoV-2 mRNA (ipqzuan-hvcx-tfsjn) vax 02/14/22 Recorded SARS-CoV-2 (COVID-19) mRNA BNT-162b2 vac 05/06/21 Given SARS-CoV-2 (COVID-19) mRNA BNT-162b2 vac 11/04/20 Recorded SARS-CoV-2 (COVID-19) mRNA BNT-162b2 vac 10/14/20 Recorded pneumococcal 23-valent vaccine 8 04/07/19 Given 1Result Comment: screening negative 2Result Comment: [facility]# [id number] 3Result Comment: [05/25/2018] [facility] lot number [id number] exp 01/26/2019 [facility] [id number] 4Result Comment: [08/20/2017] [facility] [id number] 5Admin Note: VIM dated 01/29/12 GIVEN TODAY 6Result Comment: [facility]# [id number] 7Admin Note: VIM dated 08/22/11 GIVEN TODAY 8Result Comment: [facility]#[id number] Medications acetaminophen 500 mg oral capsule 2 [...] Gm, 0 Refills, Maintenance, 02/28/21 16:31:00 EDT, [place], [facility]/pharmacy #2024, Partial fill upon patient request if the prescription is for... Start Date: 02/28/21 Status: Ordered FLUoxetine 10 mg oral capsule 1, capsule, By Mouth, Daily, INSTR:TO BE TAKEN WITH 20MG CAPSULES TO EQUAL 30MG DAILY, # 90 capsule, Refills 1, Maintenance, 01/25/24 9:11:00 EDT, Route to Pharmacy Electronically, [facility] STORE 68991, 157.5, cm, 01/22/24 10:31:00 EDT, Height, 145.9, [...] Refills, Maintenance, 12/28/23 16:17:00 EDT, [facility], 157.5, cm, 10/18/23 15:15:00 EDT, Height, 145.9, [...] tablet, 1 Refills, Maintenance, 03/28/24 7:37:00 EDT, [facility]/pharmacy #2025, 157.5, cm, 02/12/24 14:48:00 [...] tablet, 0 Refills, Maintenance, 03/07/24 17:13:00 EDT, [facility]/pharmacy #5, [...] Code MRI Safety Implantable Status Assigning Authority [id number] Unknown [id number] Unknown 08/26/24 Unknown Unknown Active GS1 Patient Care team information Care Team Personnel Name: Celestina Trinidad MD Position: [facility] Physician - Primary Care Member Role: PCP Address: Address: [address] [place] [id number] Name: Hemalatha Lucas RN Position: [facility] RN Member Role: Primary Care Nurse Name: Lauren Mack RN Position: [facility] AMB Nurse Member Role: Primary Care Nurse Name: Madelaine Ruiz RN Position: [facility] RN Member Role: Primary Care Nurse Name: Lora Santiago RN Position: [facility] SN RN Member Role: Primary Care Nurse Name: Mayco Ro RN Position: [facility] RN Member Role: Primary Care Nurse Name: Heydi Potts RN Position: [facility] SN RN Member Role: Primary Care Nurse Name: Janice Romano LPN Position: [facility] RN Member Role: Primary Care Nurse Name: Nadya Low RN Position: [facility] RN Member Role: Primary Care Nurse Name: Mirna Greenfield RN Position: [facility] RN Member Role: Primary Care Nurse Name: Nessa Bonilla RN Position: [facility] Set Up Mechanic Automatic Line Member Role: Primary Care Nurse Care Team Related Persons Name: DINESH SARGENT Address: home [address] [place] [address] Name: BON DE Address: [address] [address]
--- OUTSIDE RECORDS SUMMARY | 2024-06-24 14:25 | XMS_ITS | Continuity of Care Document ---
Author Organization [facility] Address [address] [place] [address]- Care Team Providers Care Surgery Consultant Name Role Phone Florentino AHN, Elder Hannah Primary Care Physician [phone] Encounter [facility] Date(s): 04/01/21 - 05/01/21 [facility] [address] [place] [address]- Allergies, Adverse Reactions, Alerts Substance Reaction Severity [...] Comment: [facility]# [id number] 2Result Comment: [05/25/2018] [facility] lot number [id number] exp 01/26/2019 [facility] 34140-412-01 3Result Comment: [08/20/2017] [facility] [id number] 4Admin Note: VIM dated 01/29/12 GIVEN TODAY 5Result Comment: [facility]#[id number] 6Admin Note: VIM dated 08/22/11 GIVEN TODAY [...] 10/27/20 14:48:00 EDT, Route to Pharmacy Electronically, [id number], [facility]/pharmacy #2024, 160.02, cm, 10/19/20 11:04:00 EDT, Height, 156... Start Date: 10/27/20 Status: Ordered betamethasone-clotrimazole 0.05%-1% topical cream 1 application, Topically, 2 times a day, # 45 Gm, 0 Refills, Maintenance, 12/27/20 14:13:00 EDT, [place], [facility]/pharmacy #2024, Partial fill upon patient request if the prescription is for a schedule II opioid drug., 1 application Topically 2 times a day,... Start Date: 12/27/20 Status: Ordered diclofenac 1% topical gel See Instructions, APPLY TOPICALLY 4 TIMES A DAY, # 100 Gm, 1 Refills, 10/27/20 12:37:00 EDT, [facility]/pharmacy #2024, 25, APPLY TOPICALLY 4 TIMES A DAY, 160.02, cm, 10/19/20 11:04:00 EDT, Height, 156.81, kg, 10/19/20 11:04:00 EDT, Dry Weight Start Date: 10/27/20 Status: Ordered Flonase 50 mcg/inh nasal spray See Instructions, 2 sprays Nares twice daily x 1 week, then once daily x 1-2 weeks until symptoms improve, # 16 Gm, 0 Refills, Maintenance, 02/28/21 16:31:00 EDT, [place], [facility]/pharmacy #202, Partial fill upon patient request if the prescription is for... Start Date: 02/28/21 Status: Ordered FLUoxetine 10 mg oral capsule 10 mg, 1, capsule, By Mouth, Daily, Take with 20mg capsule for total of 30mg daily, # 90 capsule, Refills 0, Tot. Refills 0, Maintenance, 03/11/21 12:00:00 EDT, Route to Pharmacy Electronically, [facility]/pharmacy #2024, Partial fill upon patient request if... Start Date: 03/11/21 Status: Ordered FLUoxetine 20 mg oral capsule 20 mg, 1, capsule, By Mouth, Daily, # 30 capsule, Refills 5, Tot. Refills 5, Maintenance, 12/20/20 14:39:00 EDT, Route to Pharmacy Electronically, [facility]/pharmacy #2024, replacing 10mg dose, 160.02, cm,12/20/20 11:59:00 EDT, Height, 156.81, kg, 10/19/20... Start Date: 12/20/20 Status: Ordered levothyroxine 0.137 mg oral tablet See Instructions, Take 1 tablet by mouth on days 1-6, then take 2 tablets by mouth on day 7, # 121 tablet, 5 Refills, Maintenance, 12/07/20 9:46:00 EDT, [facility]/pharmacy #2024, 160.02, cm, 10/19/20 11:04:00 EDT, Height, 156.81, kg, 10/19/20 11:04:00 EDT,... Start Date: 12/07/20 Status: Ordered meloxicam 15 mg oral tablet 1 tablet, By Mouth, Daily, WITH FOOD., # 30 tablet, 1 Refills, [facility] STORE 95110, 160.02, cm, 02/28/21 15:45:00 EDT, Height, 143, [...]
--- OUTSIDE RECORDS SUMMARY | 2024-06-24 14:26 | XMS_ITS | Continuity of Care Document ---
Author Organization [facility] Address [address] [place] [address]- Care Team Providers Care System Dispatcher Name Role Phone Vivi HENNING, eClestina Givens Primary Care Physician Encounter [facility] Date(s): 11/27/23 - 12/27/23 [facility] [address] [place] [address]- Allergies, Adverse Reactions, Alerts No Known Allergies [...] 08/21/22 Given tetanus/diphtheria/pertussis, acel(Tdap) 7 08/13/12 Given [id number] 12y+ bivalent booster vax 06/14/22 Recorded SARS-CoV-2 mRNA (etmpeuh-cwfb-ivyta) vax 02/14/22 Recorded SARS-CoV-2 (COVID-19) mRNA BNT-162b2 vac 05/06/21 Given SARS-CoV-2 (COVID-19) mRNA BNT-162b2 vac 11/04/20 Recorded SARS-CoV-2 (COVID-19) mRNA BNT-162b2 vac 10/14/20 Recorded pneumococcal 23-valent vaccine 8 04/07/19 Given 1Result Comment: screening negative 2Result Comment: [facility]# 56908-782-34 3Result Comment: [05/25/2018] [facility] lot number [id number] exp 01/26/2019 [facility] [place] 11381-511-13 4Result Comment: [08/20/2017] [facility] [place] [id number] 5Admin Note: VIM dated 01/29/12 GIVEN TODAY 6Result Comment: [facility]# [id number] 7Admin Note: VIM dated 08/22/11 GIVEN TODAY 8Result Comment: [facility]#[id number] Medications acetaminophen 500 mg oral capsule 2 [...] 1 Refills, Soft Stop, 12/06/23 17:28:00 EDT, [facility]/pharmacy #5, Partial fill upon patient [...] 05/17/23 16:45:00 EDT, Route to Pharmacy Electronically, [facility]/pharmacy #2024, Partial fill upon patient request if the presc... Start Date: 05/17/23 Stop Date: 05/17/24 Status: Ordered diclofenac 1% topical gel See Instructions, APPLY TO AFFECTED AREA 4 TIMES A DAY, # 100 Gm, 1 Refills, Maintenance, 11/07/23 7:48:00 EDT, [facility]/pharmacy #2024, 25, APPLY TO AFFECTED [...] Gm, 0 Refills, Maintenance, 02/28/21 16:31:00 EDT, [place], [facility]/pharmacy #2024, Partial fill upon patient request if the prescription is for... Start Date: 02/28/21 Status: Ordered FLUoxetine 10 mg oral capsule 10 mg, 1, capsule, By Mouth, Daily, to be taken with 20mg capsules to equal 30mg daily, # 90 capsule, Refills 1, Tot. Refills 1, Maintenance, 07/31/23 19:01:00 EST, Route to Pharmacy Electronically, [facility]/pharmacy #2024, Partial fill upon patient reques... Start Date: 07/31/23 Status: Ordered FLUoxetine 20 mg oral capsule 1, capsule, By Mouth, Daily, # 90 capsule, Refills 1, Tot. Refills 1, Maintenance, 07/31/23 19:01:00 EST, Route to Pharmacy Electronically, [facility]/pharmacy #2024, 157.5, cm, 07/13/23 9:57:00 [...] tablet, 0 Refills, Maintenance, 10/12/23 6:42:00 EDT, [facility]/pharmacy #2024, 157.5, cm, 07/13/23 9:57:00 EST, Height, 145.9, kg, 05/22/23 7:39:00 EDT, Dry Weight Start Date: 10/12/23 Status: Ordered meclizine 25 mg oral tablet See Instructions, PRN Dizziness, 1 tablet By Mouth 3 times a day, # 30 tablet, 0 Refills, Maintenance, 02/27/23 10:43:00 EDT, [facility]/pharmacy #2025, Partial fill upon patient [...] Refills, Maintenance, 10/24/23 11:39:00 EDT, ER Tablet, [facility]/pharmacy #2025, Partial fill upon patient [...] Code MRI Safety Implantable Status Assigning Authority [id number] Unknown [id number] Unknown 08/26/24 Unknown Unknown Active GS1 Patient Care team information Care Team Personnel Name: Celestina Trinidad MD Position: [facility] Physician - Primary Care Member Role: PCP Address: Address: [address] [place] [address] Name: Hemalatha Lucas RN Position: [facility] RN Member Role: Primary Care Nurse Name: Lauren Mack RN Position: [facility] AMB Nurse Member Role: Primary Care Nurse Name: Madelaine Ruiz RN Position: [facility] RN Member Role: Primary Care Nurse Name: Lora Santiago RN Position: [facility] SN RN Member Role: Primary Care Nurse Name: Mayco Ro RN Position: [facility] RN Member Role: Primary Care Nurse Name: Heydi Potts RN Position: [facility] SN RN Member Role: Primary Care Nurse Name: Janice Romano LPN Position: [facility] RN Member Role: Primary Care Nurse Name: Nadya Low RN Position: [facility] RN Member Role: Primary Care Nurse Name: Mirna Greenfield RN Position: [facility] RN Member Role: Primary Care Nurse Name: Nessa Bonilla RN Position: [facility] [employer] Heel Compressor Member Role: Primary Care Nurse Care Team Related Persons Name: DINESH SARGENT Address: home [address] [place] [address] Name: BON DE Address: home [address] [address]
--- OUTSIDE RECORDS SUMMARY | 2024-06-24 14:26 | XMS_ITS | Continuity of Care Document ---
Author Organization [facility] Geovanna liana Address [address] [place] [address] [address] [place] [address]- Care Team Providers Care Upstairs Maid Name Role Phone Celestina Trinidad MD Primary Care Physician [place] [facility] [place]): 09/05/22 - 09/12/22 [facility] [address] [place] [address]- Attending Physician: Jay Stafford MD Referring Physician: Celestina Trinidad MD Allergies, Adverse Reactions, Alerts No Known Allergies Immunizations Given and Recorded Vaccine Date Status Refusal Reason tetanus/diphtheria/pertussis, acel(Tdap) 1 08/21/22 Given tetanus/diphtheria/pertussis, acel(Tdap) 2 08/13/12 Given [id number] 12y+ bivalent booster vax 06/14/22 Recorded influenza [...] inactivated 6 07/31/12 Gi hali SARS-CoV-2 mRNA (nurijsv-gnpy-vyjwg) vax 02/14/22 Recorded SARS-CoV-2 (COVID-19) mRNA BNT-162b2 vac 05/06/21 Given SARS-CoV-2 (COVID-19) mRNA BNT-162b2 vac 11/04/20 Recorded SARS-CoV-2 (COVID-19) mRNA BNT-162b2 vac 10/14/20 Recorded pneumococcal 23-valent vaccine 7 04/07/19 Given 1Result Comment: [facility]# [id number] 2Admin Note: VIM dated 08/22/11 GIVEN TODAY 3Result Comment: [facility]# [id number] 4Result Comment: [05/25/2018] [employer] lot number [id number] exp 01/26/2019 [facility] [id number] 5Result Comment: [08/20/2017] [facility] [id number] 6Admin Note: VIM dated 01/29/12 GIVEN TODAY 7Result Comment: [facility]#[id number] Medications acetaminophen 500 mg oral capsule 2 [...] Stop, 04/10/2215:14:00 EDT, Route to Pharmacy Electronically, [id number], [facility]/pharmacy #2025, 158, cm, 04/10/22 14:56:00 EDT, Height, 143,... Start Date: 04/10/22 Status: Ordered amLODIPine 5 mg oral tablet 1 tablet, By Mouth, Daily, # 30 tablet, 5 Refills, Maintenance, 08/24/22 20:08:00 EST, [facility], 159, cm, 08/21/22 11:38:00 EST, Height, 143, kg, 01/04/21 10:42:00 EDT, Dry Weight Start Date: 08/24/22 Status: Ordered Augmentin 875 mg-125 mg oral tablet 1 tablet, By Mouth, Every 12 hours, for 6 week(s), # 84 tablet, 0 Refills, Acute 10/12/22 13:28:00 EDT, 08/31/22 13:28:00 EST, Tablet, [facility]/pharmacy #2024, Partial fill [...] 11:06:00 EST, Aerosol, Route to Pharmacy Electronically, [id number]... Start Date: 09/12/22 Status: Ordered cilostazol 50 mg oral tablet 1 tablet = 50 mg, By Mouth, Daily, # 180 tablet, 0 Refills, Maintenance, 09/02/22 10:35:00 EST, Tablet, [facility]/pharmacy #2024, Partial fill [...] 1 Refills, 09/19/21 12:51:00 EST, [facility]/pharmacy #2024, 25, APPLY TOPICALLY 4 [...] Gm, 0 Refills, Maintenance, 02/28/21 16:31:00 EDT, [place], [facility]/pharmacy #2024, Partial fill upon patient request if the prescription is for... Start Date: 02/28/21 Status: Ordered fluconazole 200 mg oral tablet 2 tablet = 400 mg, By Mouth, Daily, for 6 week(s), # 84 tablet, 0 Refills, Acute 10/12/22 13:28:00 EDT, 08/31/22 13:28:00 EST, Tablet, [facility]/pharmacy #2025, Partial fill upon patient request if the prescription is for a schedule II opioid drug., 157, cm... Start Date: 08/31/22 Stop Date: 10/12/22 Status: Ordered FLUoxetine 20 mg oral capsule See Instructions, TAKE 1 CAPSULE BY MOUTH EVERY DAY, # 90 capsule, Refills 1, Maintenance, 06/13/2215:26:00 EST, Instructions Replace Required Details, Route to Pharmacy Electronically, [facility], 158, cm, 06/09/22 11:21:00 EST, Height, 143, kg... Start Date: 06/13/22 Status: Ordered furosemide 20 mg oral tablet 1, tablet, By Mouth, Daily, MAY REPEAT IF NEEDED IN 2 HOURS, # 30 tablet, Refills 0, Maintenance, 09/07/22 12:45:00 EST, Route to Pharmacy Electronically, [facility], 157, cm, 09/05/22 15:49:00 EST, Height, 145, [...] Refills, Maintenance, 05/11/21 13:11:00 EDT, [facility]/pharmacy #202, Partial fill upon patient request if the prescriptionis for a schedule II opioid drug., 160.02, cm, 100... Start Date: 05/11/21 Status: Ordered meloxicam 15 mg oral tablet See Instructions, TAKE 1 TABLET BY MOUTH DAILY WITH FOOD. LABS NEEDED FOR FURTHER REFILLS, # 30 tablet, 3 Refills, Maintenance, 07/17/22 19:56:00 EST, [facility]/pharmacy #2024, 158, cm, 07/13/22 13:46:00 EST, [...] EST, Route to Pharmacy Electronically, [facility]/pharmacy #5, Partialfill upon patient request if the prescription is fo... Start Date: 09/05/22 Stop Date: 09/12/22 Status: Ordered traMADol 50 mg oral tablet See Instructions, 2 tab po qam and one tab po q pm prn moderate to severe pain, # 81 tablet, 0 Refills, Maintenance, 07/11/22 17:21:00 EST, [facility]/pharmacy #2024, 158, cm, 07/07/22 11:19:00 EST, [...] MD Position: [facility] Primary Care Physician Member Role: PCP Address: Address: [address] [place] [id number] Name: Hemalatha Lucas RN Position: [facility] RN Member Role: Primary Care Nurse Name: Lauren Mack RN Position: [facility] AMB Nurse Member Role: Primary Care Nurse Name: Madelaine Ruiz RN Position: [facility] RN Member Role: Primary Care Nurse Name: Lora Santiago RN Position: [facility] SN RN Member Role: Primary Care Nurse Name: Mayco Ro RN Position: [facility] RN Member Role: Primary Care Nurse Name: Heydi Potts RN Position: [facility] RN Member Role: Primary Care Nurse Name: Janice Romano LPN Position: [facility] RN Member Role: Primary Care Nurse Name: Nadya Low RN Position: [facility] RN Member Role: Primary Care Nurse Name: Mirna Greenfield RN Position: [facility] RN Member Role: Primary Care Nurse Name: Nessa Bonilla RN Position: [facility] [employer]er Member Role: Primary Care Nurse Care Team Related Persons Name: ROSETTAROLADINESH Address: [address] [place] [address] Name: BON DE Address: [address] [address]
--- OUTSIDE RECORDS SUMMARY | 2024-06-24 14:26 | XMS_ITS | Continuity of Care Document ---
Author Organization [facility] Address [address] [place] [address]- Care Team Providers Care Personnel Counselor Name Role Phone Vivi HENNING, Celestina Givens Primary Care Physician Encounter [facility] [place] Date(s): 09/07/22 - 10/07/22 [facility] [address] [place] [address]- Allergies, Adverse Reactions, Alerts No Known Allergies Immunizations Given and Recorded Vaccine Date Status Refusal Reason tetanus/diphtheria/pertussis, acel(Tdap) 1 08/21/22 Given tetanus/diphtheria/pertussis, acel(Tdap) 2 08/13/12 Given [id number] 12y+ bivalent booster vax 06/14/22 Recorded influenza [...] inactivated 6 07/31/12 Gi hali SARS-CoV-2 mRNA (poepxun-wxwq-ufctp) vax 02/14/22 Recorded SARS-CoV-2 (COVID-19) mRNA BNT-162b2 vac 05/06/21 Given SARS-CoV-2 (COVID-19) mRNA BNT-162b2 vac 11/04/20 Recorded SARS-CoV-2 (COVID-19) mRNA BNT-162b2 vac 10/14/20 Recorded pneumococcal 23-valent vaccine 7 04/07/19 Given 1Result Comment: [facility]# [id number] 2Admin Note: VIM dated 08/22/11 GIVEN TODAY 3Result Comment: [facility]# [id number] 4Result Comment: [05/25/2018] [employer] lot number [id number] exp 01/26/2019 [facility] [id number] 5Result Comment: [08/20/2017] [facility] [id number] 6Admin Note: VIM dated 01/29/12 GIVEN TODAY 7Result Comment: [facility]#[id number] Medications acetaminophen 500 mg oral capsule 2 [...] Stop, 04/10/2215:14:00 EDT, Route to Pharmacy Electronically, [id number], [facility]/pharmacy #2025, 158, cm, 04/10/22 14:56:00 EDT, Height, 143,... Start Date: 04/10/22 Status: Ordered amLODIPine 5 mg oral tablet 1 tablet, By Mouth, Daily, # 30 tablet, 5 Refills, Maintenance, 08/24/22 20:08:00 EST, [facility], 159, cm, 08/21/22 11:38:00 EST, Height, 143, kg, 01/04/21 10:42:00 EDT, Dry Weight Start Date: 08/24/22 Status: Ordered Augmentin 875 mg-125 mg oral tablet 1 tablet, By Mouth, Every 12 hours, for 6 week(s), # 84 tablet, 0 Refills, Acute 10/12/22 13:28:00 EDT, 08/31/22 13:28:00 EST, Tablet, [facility]/pharmacy #2024, Partial fill upon [...] 11:06:00 EST, Aerosol, Route to Pharmacy Electronically, [id number]... Start Date: 09/12/22 Status: Ordered cilostazol 50 mg oral tablet 1 tablet = 50 mg, By Mouth, Daily, # 180 tablet, 0 Refills, Maintenance, 09/02/22 10:35:00 EST, Tablet, [facility]/pharmacy #2024, Partial fill upon [...] 100 Gm, 1 Refills, 09/22/22 7:28:00 EST, [facility]/pharmacy #202, 25, APPLY TOPICALLY 4 TIMES A DAY, 157, cm, 09/13/22 15:58:00 EST, Height, 145, kg, 08/29/22 20:13:00 EST, Dry Weight Start Date: 09/22/22 Status: Ordered docusate sodium 100 mg oral capsule 100 mg, 1, capsule, By Mouth, 2 times a day, PRN, # 20 capsule, Refills 0, Tot. Refills 0, Maintenance, as needed for constipation, 08/31/22 13:30:00 EST, Route to Pharmacy Electronically, [facility]/pharmacy #202, Partial fill upon patient request if the p... Start Date: 08/31/22 Status: Ordered Flonase 50 mcg/inh nasal spray See Instructions, 2 sprays Nares twice daily x 1 week, then once daily x 1-2 weeks until symptoms improve, # 16 Gm, 0 Refills, Maintenance, 02/28/21 16:31:00 EDT, [place], [facility]/pharmacy #202, Partial fill upon patient request if the prescription is for... Start Date: 02/28/21 Status: Ordered fluconazole 200 mg oral tablet 2 tablet = 400 mg, By Mouth, Daily, for 6 week(s), # 84 tablet, 0 Refills, Acute 10/12/22 13:28:00 EDT, 08/31/22 13:28:00 EST, Tablet, [facility]/pharmacy #202, Partial fill upon patient request if the prescription is for a schedule II opioid drug., 157, cm... Start Date: 08/31/22 Stop Date: 10/12/22 Status: Ordered FLUoxetine 20 mg oral capsule See Instructions, TAKE 1 CAPSULE BY MOUTH EVERY DAY, # 90 capsule, Refills 1, Maintenance, 06/13/2215:26:00 EST, Instructions Replace Required Details, Route to Pharmacy Electronically, [facility], 158, cm, 06/09/22 11:21:00 EST, Height, 143, kg... Start Date: 06/13/22 Status: Ordered furosemide 20 mg oral tablet 1, tablet, By Mouth, Daily, MAY REPEAT IF NEEDED IN 2 HOURS, # 30 tablet, Refills 0, Maintenance, 10/06/22 15:44:00 EST, Route to Pharmacy Electronically, [facility], 157, cm, 09/13/22 15:58:00 EST, Height, 145, kg, 08/29/22 20:13:00 EST, Dry Weight Start Date: 10/06/22 Status: Ordered gabapentin 300 mg oral capsule 600 mg, 2, capsule, By Mouth, 3 times a day, # 180 capsule, Refills 3, Tot. Refills 3, Maintenance,08/25/22 22:35:00 EST, [facility] Partial fill upon patient request if the prescription is for a schedule II... Start Date: 08/25/22 Status: Ordered levothyroxine 0.137 mg oral tablet 1 tablet = 137 mcg, By Mouth, Daily, 1 tab on days 1-6, take 2 tabs on day 7, # 102 tablet, 1 Refills, Maintenance, 07/03/22 14:41:00 EST, Tablet, [facility] Partial fill upon patient request if the prescription is for a schedule II opioid dr... Start Date: 07/03/22 Status: Ordered meclizine 25 mg oral tablet See Instructions, PRN Dizziness, 1 tablet By Mouth 3 times a day, # 30 tablet, 0 Refills, Maintenance, 05/11/21 13:11:00 EDT, [facility]/pharmacy #2024, Partial fill upon patient request if the prescriptionis for a schedule II opioid drug., 160.02, cm, 10/0... Start Date: 05/11/21 Status: Ordered meloxicam 15 mg oral tablet See Instructions, TAKE 1 TABLET BY MOUTH DAILY WITH FOOD. LABS NEEDED FOR FURTHER REFILLS, # 30 tablet, 3 Refills, Maintenance, 07/17/22 19:56:00 EST, [facility]/pharmacy #2024, 158, cm, 07/13/22 13:46:00 EST, Height, [...] to Pharmacy Electronically, [facility] Partial[facility] upon patient request if the prescription is fo... Start Date: 09/05/22 Stop Date: 09/12/22 Status: Ordered traMADol 50 mg oral tablet See Instructions, 2 tab po qam and one tab po q pm prn moderate to severe pain. 28 days. mass pat ok, # 81 tablet, 0 Refills, Maintenance, 09/21/22 16:44:00 EST, [facility]/pharmacy #2024, 157, cm, 09/13/2314:58:00 EST, Height, 145, kg, 08/29/22 20:13:00 E... Start Date: 09/21/22 Status: Ordered zolpidem 10 mg oral tablet 1 tablet = 10 mg, By Mouth, Daily at bedtime, PRN for sleep, for 30 days, masspat check may fill less, # 30 tablet, 0 Refills, Acute 11/01/22 17:14:00 EDT, 10/02/22 17:14:00 EST, Tablet, [facility]/pharmacy#2024, 157, cm, 09/13/22 15:58:00 EST, Height, 145... Start Date: 10/02/22 Stop Date: 11/01/22 Status: Ordered zolpidem 10 mg oral tablet 1 tablet = 10 mg, By Mouth, Daily at bedtime, PRN for sleep, for 30 days, masspat check may fill less, # 30 tablet, 0 Refills, Acute 11/20/22 16:47:00 EDT, 10/21/22 16:47:00 EDT, Tablet, [facility]/pharmacy#2024, 157, cm, 09/13/22 15:58:00 EST, Height, 145... [...] Name: Celestina Trinidad MD Position: [facility] Primary Care Physician Member Role: PCP Address: Address: [address] [place] [id number] Name: Hemalatha Lucas RN Position: [facility] [...] Nessa Bonilla RN Position: [facility] Hospital International Coordinator Member Role: Primary Care Nurse Care Team Related Persons Name: DINESH SARGENT Address: home [address] [place] [address] Name: BON DE Address: home [address] [address]
--- OUTSIDE RECORDS SUMMARY | 2024-06-24 14:26 | XMS_ITS | Continuity of Care Document ---
Author Organization [facility] Address [address] [place] [address]- Care Team Providers Care Cut Out Operator Name Role Phone Vivi HENNING, Celestina Givens Primary Care Physician Encounter [facility] Date(s): 09/05/22 - 10/05/22 [facility] [address] [place] [address]- Allergies, Adverse Reactions, Alerts No Known Allergies Immunizations Given and Recorded Vaccine Date Status Refusal Reason tetanus/diphtheria/pertussis, acel(Tdap) 1 08/21/22 Given tetanus/diphtheria/pertussis, acel(Tdap) 2 08/13/12 Given [id number]-LyM-5pXHE 12y+ bivalent booster vax 06/14/22 Recorded influenza [...] inactivated 6 07/31/12 Gi hali SARS-CoV-2 mRNA (uovlcri-gfrm-jcpqi) vax 02/14/22 Recorded SARS-CoV-2 (COVID-19) mRNA BNT-162b2 vac 05/06/21 Given SARS-CoV-2 (COVID-19) mRNA BNT-162b2 vac 11/04/20 Recorded SARS-CoV-2 (COVID-19) mRNA BNT-162b2 vac 10/14/20 Recorded pneumococcal 23-valent vaccine 7 04/07/19 Given 1Result Comment: [facility]# [id number] 2Admin Note: VIM dated 08/22/11 GIVEN TODAY 3Result Comment: [facility]# [id number] 4Result Comment: [05/25/2018] [facility] lot number [id number] exp 01/26/2019 [facility] [id number] 5Result Comment: [08/20/2017] [facility] [id number] 6Admin Note: VIM dated 01/29/12 GIVEN TODAY 7Result Comment: [facility]#[id number] Medications acetaminophen 500 mg oral capsule 2 [...] Stop, 04/10/2215:14:00 EDT, Route to Pharmacy Electronically, [id number], [facility]/pharmacy #2025, 158, cm, 04/10/22 14:56:00 EDT, Height, 143,... Start Date: 04/10/22 Status: Ordered amLODIPine 5 mg oral tablet 1 tablet, By Mouth, Daily, # 30 tablet, 5 Refills, Maintenance, 08/24/22 20:08:00 EST, [facility], 159, cm, 08/21/22 11:38:00 EST, Height, 143, kg, 01/04/21 10:42:00 EDT, Dry Weight Start Date: 08/24/22 Status: Ordered Augmentin 875 mg-125 mg oral tablet 1 tablet, By Mouth, Every 12 hours, for 6 week(s), # 84 tablet, 0 Refills, Acute 10/12/22 13:28:00 EDT, 08/31/22 13:28:00 EST, Tablet, [facility]/pharmacy #2024, Partial fill upon [...] 11:06:00 EST, Aerosol, Route to Pharmacy Electronically, [id number]... Start Date: 09/12/22 Status: Ordered cilostazol 50 mg oral tablet 1 tablet = 50 mg, By Mouth, Daily, # 180 tablet, 0 Refills, Maintenance, 09/02/22 10:35:00 EST, Tablet, [facility]/pharmacy #2024, Partial fill upon [...] Gm, 1 Refills, 09/22/22 7:28:00 EST, [facility]/pharmacy #2025, 25, APPLY TOPICALLY 4 TIMES [...] Route to Pharmacy Electronically, [facility]/pharmacy #202, Partial fill upon patient request if the p... Start Date: 08/31/22 Status: Ordered Flonase 50 mcg/inh nasal spray See Instructions, 2 sprays Nares twice daily x 1 week, then once daily x 1-2 weeks until symptoms improve, # 16 Gm, 0 Refills, Maintenance, 02/28/21 16:31:00 EDT, [place], [facility]/pharmacy #2025, Partial fill upon patient request if the prescription is for... Start Date: 02/28/21 Status: Ordered fluconazole 200 mg oral tablet 2 tablet = 400 mg, By Mouth, Daily, for 6 week(s), # 84 tablet, 0 Refills, Acute 10/12/22 13:28:00 EDT, 08/31/22 13:28:00 EST, Tablet, [facility]/pharmacy #2025, Partial fill upon patient request if the prescription is for a schedule II opioid drug., 157, cm... Start Date: 08/31/22 Stop Date: 10/12/22 Status: Ordered FLUoxetine 20 mg oral capsule See Instructions, TAKE 1 CAPSULE BY MOUTH EVERY DAY, # 90 capsule, Refills 1, Maintenance, 06/13/2215:26:00 EST, Instructions Replace Required Details, Route to Pharmacy Electronically, [facility], 158, cm, 06/09/22 11:21:00 EST, Height, 143, kg... Start Date: 06/13/22 Status: Ordered furosemide 20 mg oral tablet 1, tablet, By Mouth, Daily, MAY REPEAT IF NEEDED IN 2 HOURS, # 30 tablet, Refills 0, Maintenance, 09/26/22 15:09:00 EST, Route to Pharmacy Electronically, [facility], 157, cm, 09/13/22 15:58:00 EST, Height, 145, kg, 08/29/22 20:13:00 EST, Dry Weight Start Date: 09/26/22 Status: Ordered gabapentin 300 mg oral capsule 600 mg, 2, capsule, By Mouth, 3 times a day, # 180 capsule, Refills 3, Tot. Refills 3, Maintenance,08/25/22 22:35:00 EST, [facility] Partial fill upon patient request if the prescription is for a schedule II... Start Date: 08/25/22 Status: Ordered levothyroxine 0.137 mg oral tablet 1 tablet = 137 mcg, By Mouth, Daily, 1 tab on days 1-6, take 2 tabs on day 7, # 102 tablet, 1 Refills, Maintenance, 07/03/22 14:41:00 EST, Tablet, [facility]/pharmacy #2024, Partial fill upon patient request if the prescription is for a schedule II opioid drJim. Start Date: 07/03/22 Status: Ordered meclizine 25 mg oral tablet See Instructions, PRN Dizziness, 1 tablet By Mouth 3 times a day, # 30 tablet, 0 Refills, Maintenance, 05/11/21 13:11:00 EDT, [facility]/pharmacy #2024, Partial fill upon patient request if the prescriptionis for a schedule II opioid drug., 160.02, cm, 10/0... Start Date: 05/11/21 Status: Ordered meloxicam 15 mg oral tablet See Instructions, TAKE 1 TABLET BY MOUTH DAILY WITH FOOD. LABS NEEDED FOR FURTHER REFILLS, # 30 tablet, 3 Refills, Maintenance, 07/17/22 19:56:00 EST, [facility]/pharmacy #2024, 158, cm, 07/13/22 13:46:00 EST, [...] to Pharmacy Electronically, [facility]/pharmacy #2024, Partialfill upon patient request if the prescription is fo... Start Date: 09/05/22 Stop Date: 09/12/22 Status: Ordered traMADol 50 mg oral tablet See Instructions, 2 tab po qam and one tab po q pm prn moderate to severe pain. 28 days. mass pat ok, # 81 tablet, 0 Refills, Maintenance, 09/21/22 16:44:00 EST, [facility]/pharmacy #2024, 157, cm, 09/13/2314:58:00 EST, Height, 145, kg, 08/29/22 20:13:00 E... Start Date: 09/21/22 Status: Ordered zolpidem 10 mg oral tablet 1 tablet = 10 mg, By Mouth, Daily at bedtime, PRN for sleep, for 30 days, masspat check may fill less, # 30 tablet, 0 Refills, Acute 11/01/22 17:14:00 EDT, 10/02/22 17:14:00 EST, Tablet, [facility]/pharmacy#2024, 157, cm, 09/13/22 15:58:00 EST, Height, 145... Start Date: 10/02/22 Stop Date: 11/01/22 Status: Ordered zolpidem 10 mg oral tablet 1 tablet = 10 mg, By Mouth, Daily at bedtime, PRN for sleep, for 30 days, masspat check may fill less, # 30 tablet, 0 Refills, Acute 11/20/22 16:47:00 EDT, 10/21/22 16:47:00 EDT, Tablet, [facility]/pharmacy#2024, 157, cm, 09/13/22 15:58:00 EST, Height, [...] Trinidad MD Position: [facility] Primary Care Physician Member Role: PCP Address: Address: [address] [place] [id number] Name: Hemalatha Lucas RN [facility] RN Position: [facility] Hospital Seat Nailer Member Role: Primary Care Nurse Care Team Related Persons Name: DINESH SARGENT Address: home [address] [place] [address] Name: BON DE Address: home [address] [address]
--- OUTSIDE RECORDS SUMMARY | 2024-06-24 14:26 | XMS_ITS | Continuity of Care Document ---
Author Organization [facility] Address [address] [place] [address]- Care Team Providers Care Straightener Hand Name Role Phone Vivi HENNING, Celestina Givens Primary Care Physician [place] [facility] [place] 04/06/24 [facility] [address] [place] [address]- Allergies, Adverse Reactions, Alerts No Known Allergies [...] 08/21/22 Given tetanus/diphtheria/pertussis, acel(Tdap) 7 08/13/12 Given [id number] 12y+ bivalent booster vax 06/14/22 Recorded SARS-CoV-2 mRNA (fipdvdl-bqeg-nyeie) vax 02/14/22 Recorded SARS-CoV-2 (COVID-19) mRNA BNT-162b2 vac 05/06/21 Given SARS-CoV-2 (COVID-19) mRNA BNT-162b2 vac 11/04/20 Recorded SARS-CoV-2 (COVID-19) mRNA BNT-162b2 vac 10/14/20 Recorded pneumococcal 23-valent vaccine 8 04/07/19 Given 1Result Comment: screening negative 2Result Comment: [facility]# [id number] 3Result Comment: [05/25/2018] seqirus lot number [id number] exp 01/26/2019 [facility] [id number] 4Result Comment: [08/20/2017] [facility] [id number] 5Admin Note: VIM dated 01/29/12 GIVEN TODAY 6Result Comment: [facility]# [id number] 7Admin Note: VIM dated 08/22/11 GIVEN TODAY 8Result Comment: [facility]#[id number] Medications acetaminophen 500 mg oral capsule 2 [...] 1 Refills, Soft Stop, 12/06/23 17:28:00 EDT, [facility]/pharmacy #5, Partial fill upon patient request if [...] Gm, 0 Refills, Maintenance, 02/28/21 16:31:00 EDT, [place], [facility]/pharmacy #2024, Partial fill upon patient request if the prescription is for... Start Date: 02/28/21 Status: Ordered FLUoxetine 10 mg oral capsule 1, capsule, By Mouth, Daily, INSTR:TO BE TAKEN WITH 20MG CAPSULES TO EQUAL 30MG DAILY, # 90 capsule, Refills 1, Maintenance, 01/25/24 9:11:00 EDT, Route to Pharmacy Electronically, [facility] STORE 09926, 157.5, cm, 01/22/24 10:31:00 EDT, Height, 145.9, kg,... Start Date: 01/25/24 Status: Ordered gabapentin 300 mg oral capsule 600 mg, 2, capsule, By Mouth, 3 times a day, # 180 capsule, Refills 3, Tot. Refills 3, Maintenance,08/25/22 22:35:00 EST, Route to Pharmacy Electronically, [facility]/pharmacy #2024, Partial fill upon patient request if [...] Refills, Maintenance, 12/28/23 16:17:00 EDT, [facility], 157.5, cm, 10/18/23 15:15:00 EDT, Height, 145.9, [...] tablet, 1 Refills, Maintenance, 03/28/24 7:37:00 EDT, [facility]/pharmacy #2025, 157.5, cm, 02/12/24 14:48:00 EDT, Height, 145.9, kg, :39:00 EDT, Dry Weight Start Date: 03/28/24 Status: Ordered metFORMIN 500 mg oral tablet, extended release 1 tablet = 500 mg, By Mouth, Daily, # 90 tablet, 1 Refills, Maintenance, 01/22/24 11:02:00 EDT, ER Tablet, [facility]/pharmacy #2025, Partial fill upon patient request if [...] tablet, 0 Refills, Maintenance, 03/31/24 17:50:00 EDT, [facility]/pharmacy #2025, Partial fill upon patient request if [...] Code MRI Safety Implantable Status Assigning Authority [id number] Unknown [id number] Unknown 08/26/24 Unknown Unknown Active GS1 Patient Care team information Care Team Personnel Name: Celestina Trinidad MD Position: [facility] Physician - Primary Care Member Role: PCP Address: Address: [address] [place] [id number] Name: Hemalatha Lucas RN Position: [facility] RN Member Role: Primary Care Nurse Name: Lauren Mack RN Position: [facility] RN Member Role: Primary Care Nurse Name: Madelaine Ruiz RN Position: [facility] RN Member Role: Primary Care Nurse Name: Lora Santiago RN Position: [facility] SN RN Member Role: Primary Care Nurse Name: Mayco Ro RN Position: [facility] RN Member Role: Primary Care Nurse Name: Heydi Potts RN Position: [facility] SN RN Member Role: Primary Care Nurse Name: Janice Romano LPN Position: [facility] RN Member Role: Primary Care Nurse Name: Nadya Low RN Position: [facility] RN Member Role: Primary Care Nurse Name: Mirna Greenfield RN Position: [facility] RN Member Role: Primary Care Nurse Name: Nessa Bonilla RN Position: [facility] Nuclear Test Technician Member Role: Primary Care Nurse Care Team Related Persons Name: DINESH SARGENT Address: home [address] [place] [address] Name: BON DE Address: home [address] [address]
--- OUTSIDE RECORDS SUMMARY | 2024-06-24 14:26 | XMS_ITS | Continuity of Care Document ---
Author Organization [facility] Address [address] [place] [address]- Care Team Providers Care Hardboard Grinder Name Role Phone Vivi HENNING, Celestina Givens Primary Care Physician [facility]counter [facility] Date(s): 07/24/23 - 08/23/23 [facility] [address] [place], [place] [address] Allergies, Adverse Reactions, Alerts No Known [...] 08/21/22 Given tetanus/diphtheria/pertussis, acel(Tdap) 7 08/13/12 Given [id number]-JiW-[id number] 12y+ bivalent booster vax 06/14/22 Recorded SARS-CoV-2 mRNA (kvjaakg-ioeb-jleph) vax 02/14/22 Recorded SARS-CoV-2 (COVID-19) mRNA BNT-162b2 vac 05/06/21 Given SARS-CoV-2 (COVID-19) mRNA BNT-162b2 vac 11/04/20 Recorded SARS-CoV-2 (COVID-19) mRNA BNT-162b2 vac 10/14/20 Recorded pneumococcal 23-valent vaccine 8 04/07/19 Given 1Result Comment: screening negative 2Result Comment: [facility]# [id number] 3Result Comment: [05/25/2018] seq[facility] lot number [id number] exp 01/26/2019 [facility] [id number] 4Result Comment: [08/20/2017] [facility] [id number] 5Admin Note: VIM dated 01/29/12 GIVEN TODAY 6Result Comment: [facility]# [id number] 7Admin Note: VIM dated 08/22/11 GIVEN TODAY 8Result Comment: [facility]#[id number] Medications acetaminophen 500 mg oral capsule 2 [...] Gm, 0 Refills, Maintenance, 02/28/21 16:31:00 EDT, [place], Partial fill upon patient request [...] 2 Refills, Maintenance, 02/27/23 7:25:00 EDT, [facility] STORE 26743, 157, cm, 12/08/22 14:27:00 EDT, Height, 145, kg, 08/29/22 20:13:00 EST, Dry... Start Date: 02/27/23 Status: Ordered levothyroxine 150 mcg (0.15 mg) oral tablet 1 tablet = 150 mcg, By Mouth, Daily, # 90 tablet, 0 Refills, Maintenance, 07/15/23 17:38:00 EST, Tablet, [facility]/pharmacy #2024, Partial [...] Refills, Maintenance, 07/28/23 10:21:00 EST, [facility], 157.5, cm, 07/13/23 9:57:00 EST, Height, 145.9, [...] 0 Refills, Maintenance, 08/05/23 12:22:00 EST, [facility]/pharmacy #5, 157.5, cm, 07/13/23 9:57:00 EST, [...] Code MRI Safety Implantable Status Assigning Authority [id number] [id number] Unknown [id number] Unknown 08/26/24 Unknown Unknown Active GS1 Patient Care team information Care Team Personnel Name: Celestina Trinidad MD Position: [facility] Physician - Primary Care Member Role: PCP Address: Address: [address] [place] [id number]- Name: Hemalatha Lucas RN Position: [facility] RN Member Role: Primary Care Nurse Name: Lauren Mack RN Position: [facility] AMB Nurse Member Role: Primary Care Nurse Name: Madelaine Ruiz RN Position: [facility] RN Member Role: Primary Care Nurse Name: Lora Santiago RN Position: [facility] SN RN Member Role: Primary Care Nurse Name: Mayco Ro RN Position: [facility] RN Member Role: Primary Care Nurse Name: Heydi Potts RN Position: [facility] RN Member Role: Primary Care Nurse Name: Janice Romano LPN Position: [facility] RN Member Role: Primary Care Nurse Name: Nadya Low RN Position: [facility] RN Member Role: Primary Care Nurse Name: Mirna Greenfield RN Position: [facility] RN Member Role: Primary Care Nurse Name: Nessa Bonilla RN Position: [facility] Hospital Winery Cellar Hand Member Role: Primary Care Nurse Care Team Related Persons Name: DINESH SARGENT Address: home [address] [place] [address] Name: BON DE Address: home [address] [address]
--- OUTSIDE RECORDS SUMMARY | 2024-06-24 14:26 | XMS_ITS | Continuity of Care Document ---
Author Organization [facility] Address [address] [place] [address]- Care Team Providers Care Skin Drier Name Role Phone Florentino AHN, Elder Hannah Primary Care Physician [phone] Encounter [facility] Date(s): 08/18/20 - 09/17/20 [facility] [address] [place], [place] [address] Allergies, Adverse Reactions, Alerts Substance Reaction [...] Comment: [facility]# [id number] 2Result Comment: [05/25/2018] seq[facility] lot number [id number] exp 01/26/2019 [facility] [id number] 3Result Comment: [08/20/2017] [facility] [id number] 4Admin Note: VIM dated 01/29/12 GIVEN TODAY 5Result Comment: [facility]#[id number] 6Admin Note: VIM dated 08/22/11 GIVEN TODAY [...] 100 Gm, 0 Refills, Maintenance, [facility],25, APPLY TOPICALLY 4 TIMES A DAY, 161, cm, 06/08/20 13:48:00 EST, Height Start Date: 07/12/20 Status: Ordered FLUoxetine 20 mg oral capsule 20 mg, 1, capsule, By Mouth, Daily, # 30 capsule, Refills 5, Tot. Refills 5, Maintenance, 05/13/20 9:34:00 EDT, Route to Pharmacy Electronically, [facility]/pharmacy #2024, replacing 10mg dose, 161, cm, 05/13/20 8:28:00 EDT, Height Start Date: 05/13/20 Status: Ordered levothyroxine 0.137 mg oral tablet See Instructions, Take 1 tablet by mouth on days 1-6, then take 2 tablets by mouth on day 7, # 121 tablet, 1 Refills, Maintenance, 08/31/20 7:32:00 EST, [facility]/pharmacy #2024, 161, cm, 08/18/20 15:29:00EST, Height Start Date: 08/31/20 Status: Ordered meloxicam 15 mg oral tablet 1 tablet, By Mouth, Daily, WITH FOOD., # 30 tablet, 1 Refills, Maintenance, 08/30/20 7:37:00 EST, [facility] STORE 97983, 161, cm, 08/18/20 15:29:00 EST, Height Start [...] to Pharmacy Electronically, [facility]/pharmacy #5, 161, cm, 08/04/19 14:44:00 EST, Height Start Date: 08/04/19 Stop Date: 08/18/19 Status: Ordered traMADol 50 mg oral tablet 2 tablet = 100 mg, By Mouth, Every 12 hours, for 30 days, as needed for pain masspat checked, # 120tablet, 2 Refills, Hard Stop 11/15/20 16:20:00 EDT, 08/17/20 16:20:00 EST, [facility]/pharmacy #5, 161,cm, 06/08/20 13:48:00 EST, Height Start Date: 08/17/20 Stop Date: 11/15/20 Status: Ordered traMADol 50 mg oral tablet 2 tablet = 100 mg, By Mouth, Every 12 hours, as needed for pain masspat checked, # 120 tablet, 2 Refills, Maintenance, 09/13/20 16:54:00 EST, [facility]/pharmacy #5, 161, cm, 08/18/20 15:29:00 EST, Height Start Date: 09/13/20 Stop Date: 12/12/20 Status: Ordered zolpidem 10 mg oral tablet 1 tablet = 10 mg, By Mouth, Daily at bedtime, PRN for sleep, for 30 days, masspat check may fill less, # 30 tablet, 3 Refills, Acute 01/14/21 9:22:00 EDT, 09/16/20 9:22:00 EST, Tablet, [facility]/pharmacy #5, 161, cm, 08/18/20 15:29:00 EST, Height Start Date: 09/16/20 Stop Date: 01/14/21 Status: Ordered zolpidem 10 mg oral tablet 1 tablet = 10 mg, By Mouth, Daily at bedtime, PRN for sleep, for 30 days, masspat check may fill less, # 30 tablet, 3 Refills, Acute 01/08/21 9:34:00 EDT, 09/10/20 9:34:00 EST, Tablet, [facility]/pharmacy #5, 161, cm, 08/18/20 15:29:00 [...]
--- OUTSIDE RECORDS SUMMARY | 2024-06-24 14:26 | XMS_ITS | Continuity of Care Document ---
Author Organization [facility] em Address Unknown Care Team Providers Care Straightedge Man Name Role Phone Celestina Trinidad MD Primary Care Physician [place] [facility] [place](s): 05/24/23 - 07/11/23 [facility] Attending Physician: Yasemin Diaz MD Admitting Physician: Yasemin Diaz MD Allergies, Adverse Reactions, Alerts No Known Allergies Immunizations Given and Recorded Vaccine Date Status Refusal Reason tetanus/diphtheria/pertussis, acel(Tdap) 1 08/21/22 Given tetanus/diphtheria/pertussis, acel(Tdap) 2 08/13/12 Given [id number] 12y+ bivalent booster vax 06/14/22 Recorded influenza [...] inactivated 6 07/31/12 [facility]i SARS-CoV-2 mRNA (lariomo-wcth-huzru) vax 02/14/22 Recorded SARS-CoV-2 (COVID-19) mRNA BNT-162b2 vac 05/06/21 Given SARS-CoV-2 (COVID-19) mRNA BNT-162b2 vac 11/04/20 Recorded SARS-CoV-2 (COVID-19) mRNA BNT-162b2 vac 10/14/20 Recorded pneumococcal 23-valent vaccine 7 04/07/19 Given 1Result Comment: [facility]# [id number] 2Admin Note: VIM dated 08/22/11 GIVEN TODAY 3Result Comment: [facility]# [id number] 4Result Comment: [05/25/2018] seqirus lot number [id number] exp 01/26/2019 [facility] [id number] 5Result Comment: [08/20/2017] [facility] [id number] 6Admin Note: VIM dated 01/29/12 GIVEN TODAY 7Result Comment: [facility]#[id number] Medications acetaminophen 500 mg oral capsule 2 [...] 16:45:00 EDT, Route to Pharmacy Electronically, [facility]/pharmacy #2025, Partial fill upon patient request if the presc... Start Date: 05/17/23 Stop Date: 05/17/24 Status: Ordered diclofenac 1% topical gel See Instructions, APPLY TOPICALLY 4 TIMES A DAY, # 100 Gm, 1 Refills, Maintenance, 06/05/23 10:25:00 EST, [facility]/pharmacy #2024, 50, APPLY TOPICALLY 4 TIMES A DAY, 157.5, cm, 05/22/23 7:39:00 EDT, Height, 145.9, kg, 05/22/23 7:39:00 EDT, Dry Weight Start Date: 06/05/23 Status: Ordered Flonase 50 mcg/inh nasal spray See Instructions, 2 sprays Nares twice daily x 1 week, then once daily x 1-2 weeks until symptoms improve, # 16 Gm, 0 Refills, Maintenance, 02/28/21 16:31:00 EDT, [place], [facility]/pharmacy #2025, Partial fill upon patient request if the prescription is for... Start Date: 02/28/21 Status: Ordered FLUoxetine 10 mg oral capsule 10 mg, 1, capsule, By Mouth, Daily, to be taken with 20mg capsules to equal 30mg daily, # 90 capsule, Refills 1, Tot. Refills 1, Maintenance, 04/03/23 11:25:00 EDT, Route to Pharmacy Electronically, [facility]/pharmacy #2025, Partial fill upon patient reques... Start Date: 04/03/23 Status: Ordered FLUoxetine 20 mg oral capsule 1, capsule, By Mouth, Daily, # 90 capsule, Refills 1, Tot. Refills 1, Maintenance, 04/03/23 11:23:00 EDT, Route to Pharmacy Electronically, [facility]/pharmacy #2025, 157, cm, 03/14/23 11:02:00 EDT, Height,145, kg, 08/29/22 20:13:00 EST, Dry Weight Start Date: 04/03/23 Status: Ordered gabapentin 300 mg oral capsule 600 mg, 2, capsule, By Mouth, 3 times a day, # 180 capsule, Refills 3, Tot. Refills 3, Maintenance,08/25/22 22:35:00 EST, Route to Pharmacy Electronically, [facility]/pharmacy #2024, Partial fill upon patient request if [...] 2 Refills, Maintenance, 02/27/23 7:25:00 EDT, [facility] STORE 54410, 157, cm, 12/08/22 14:27:00 EDT, Height, 145, kg, 08/29/22 20:13:00 EST, Dry... Start Date: 02/27/23 Status: Ordered meclizine 25 mg oral tablet See Instructions, PRN Dizziness, 1 tablet By Mouth 3 times a day, # 30 tablet, 0 Refills, Maintenance, 02/27/23 10:43:00 EDT, [facility]/pharmacy #202, Partial fill upon patient request if the prescriptionis for a schedule II opioid drug., 157, cm, ... Start Date: 02/27/23 Status: Ordered meloxicam 15 mg oral tablet See Instructions, TAKE 1 TABLET BY MOUTH DAILY WITH FOOD. LABS NEEDED FOR FURTHER REFILLS, # 30 tablet, 1 Refills, Maintenance, 05/01/23 14:45:00 EDT, [facility]/pharmacy #2025, 157, cm, 03/14/23 11:02:00 EDT, Height, [...] 9:10:00 EDT, Route to Pharmacy Electronically, [facility]/pharmacy... Start Date: 05/22/23 Status: Ordered Splint See [...] tablet, 0 Refills, Maintenance, 07/02/23 16:52:00 EST, [facility]/pharmacy #2024, 157.5, cm, 06/26/23 10:22:00 EST, Height, 145.9, kg, 05/22/23 7:39:0... Start Date: 07/02/23 Status: Ordered zolpidem 10 mg oral tablet 1 tablet = 10 mg, By Mouth, Daily at bedtime, PRN for sleep, for 30 days, # 30 tablet, 0 Refills, Acute 07/12/23 11:04:00 EST, 06/12/23 11:04:00 EST, Tablet, [facility]/pharmacy #2024, early refill for travel. Thanks., 157.5, cm, 06/08/23 11:48:00 EST, [place]... Start Date: 06/12/23 Stop Date: 07/12/23 Status: Ordered zolpidem 10 mg oral tablet 1 tablet = 10 mg, By Mouth, Daily at bedtime, # 30 tablet, 0 Refills, Maintenance, 07/10/23 11:57:00 EST, [facility]/pharmacy #2024, Partial fill upon patient request if [...] Code MRI Safety Implantable Status Assigning Authority [id number] Unknown [id number] Unknown 08/26/24 Unknown Unknown Active GS1 Patient Care team information Care Team Personnel Name: Celestina Trinidad MD Position: [facility] Physician - Primary Care Member Role: PCP Address: Address: [address] [place] [address] Name: Hemalatha Lucas RN Position: [facility] RN Member Role: Primary Care Nurse Name: Lauren Mack RN Position: [facility] MARY Nurse Member Role: Primary Care Nurse Name: Madelaine Ruiz RN Position: [facility] RN Member Role: Primary Care Nurse Name: Lora Santiago RN Position: [facility] SN RN Member Role: Primary Care Nurse Name: Mayco Ro RN Position: [facility] RN Member Role: Primary Care Nurse Name: Heydi Potts RN Position: [facility] RN Member Role: Primary Care Nurse [...] [facility] Bottom Cager Member Role: Primary Care Nurse Care Team Related Persons Name: DINESH SARGENT Address: home [address] [place] [address] Name: BON DE Address: home [address] [place] [address]
--- OUTSIDE RECORDS SUMMARY | 2024-06-24 14:26 | XMS_ITS | Continuity of Care Document ---
Author Organization [facility] Address [address] [place] [address]- Care Team Providers Care Agronomy Advisor Name Role Phone Vivi HENNING, Celestina Givens Primary Care Physician [facility] Date[facility]s): 08/09/23 - 09/08/23 [facility] [address] [place] [address]- Allergies, Adverse Reactions, Alerts No Known Allergies [...] 08/21/22 Given tetanus/diphtheria/pertussis, acel(Tdap) 7 08/13/12 Given [id number]-BmU-3dJFC 12y+ bivalent booster vax 06/14/22 Recorded SARS-CoV-2 mRNA (pldirig-vjac-lzwmk) vax 02/14/22 Recorded SARS-CoV-2 (COVID-19) mRNA BNT-162b2 vac 05/06/21 Given SARS-CoV-2 (COVID-19) mRNA BNT-162b2 vac 11/04/20 Recorded SARS-CoV-2 (COVID-19) mRNA BNT-162b2 vac 10/14/20 Recorded pneumococcal 23-valent vaccine 8 04/07/19 Given 1Result Comment: screening negative 2Result Comment: [facility]# [id number] 3Result Comment: [05/25/2018] seqirus lot number [id number] exp 01/26/2019 [facility] [id number] 4Result Comment: [08/20/2017] [facility] [id number] 5Admin Note: VIM dated 01/29/12 GIVEN TODAY 6Result Comment: [facility]# [id number] 7Admin Note: VIM dated 08/22/11 GIVEN TODAY 8Result Comment: [facility]#[id number] Medications acetaminophen 500 mg oral capsule 2 [...] 05/17/23 16:45:00 EDT, Route to Pharmacy Electronically, [facility]/pharmacy #2025, Partial fill upon patient request if the presc... Start Date: 05/17/23 Stop Date: 05/17/24 Status: Ordered diclofenac 1% topical gel See Instructions, APPLY TO AFFECTED AREA 4 TIMES A DAY, # 100 Gm, 1 Refills, Maintenance, 09/02/23 8:08:00 EST, [facility], 25, APPLY TO AFFECTED AREA 4 TIMES [...] Gm, 0 Refills, Maintenance, 02/28/21 16:31:00 EDT, [place], Partial fill upon patient request if the prescription is for... Start Date: 02/28/21 Status: Ordered FLUoxetine 10 mg oral capsule 10 mg, 1, capsule, By Mouth, Daily, to be taken with 20mg capsules to equal 30mg daily, # 90 capsule, Refills 1, Tot. Refills 1, Maintenance, 07/31/23 19:01:00 EST, Route to Pharmacy Electronically, [facility]/pharmacy #2025, Partial fill upon patient reques... Start Date: 07/31/23 Status: Ordered FLUoxetine 20 mg oral capsule 1, capsule, By Mouth, Daily, # 90 capsule, Refills 1, Tot. Refills 1, Maintenance, 07/31/23 19:01:00 EST, Route to Pharmacy Electronically, [facility]/pharmacy #2024, 157.5, cm, 07/13/23 9:57:00 EST, Height, 145.9, kg, 05/22/23 7:39:00 EDT, Dry Weight Start Date: 07/31/23 Status: Ordered gabapentin 300 mg oral capsule 600 mg, 2, capsule, By Mouth, 3 times a day, # 180 capsule, Refills 3, Tot. Refills 3, Maintenance,08/25/22 22:35:00 EST, Route to Pharmacy Electronically, [facility]/pharmacy #2024, Partial fill upon [...] tablet, 2 Refills, Maintenance, 02/27/23 7:25:00 EDT, [facility] STORE 33120, 157, cm, 12/08/22 14:27:00 EDT, Height, 145, kg, 08/29/22 20:13:00 EST, Dry... Start Date: 02/27/23 Status: Ordered levothyroxine 150 mcg (0.15 mg) oral tablet 1 tablet = 150 mcg, By Mouth, Daily, # 90 tablet, 0 Refills, Maintenance, 07/15/23 17:38:00 EST, Tablet, [facility]/pharmacy #2024, Partial fill upon [...] Refills, Maintenance, 07/28/23 10:21:00 EST, [facility], 157.5, cm, 07/13/23 9:57:00 EST, Height, 145.9, [...] tablet, 0 Refills, Maintenance, 08/09/23 20:17:00 EST, [facility]/pharmacy #2024, Partial fill upon [...] Code MRI Safety Implantable Status Assigning Authority [id number] Unknown [id number] Unknown 08/26/24 Unknown Unknown Active GS1 Patient Care team information Care Team Personnel Name: Celestina Trinidad MD Position: [facility] Physician - Primary Care Member Role: PCP Address: Address: [address] [place] [address]- Name: Hemalatha Lucas RN [facility] Bonilla RN Position: [facility] [employer] Member Role: Primary Care Nurse Care Team Related Persons Name: DINESH SARGENT Address: home [address] [place] [address] Name: BON DE Address: home [address] [place] [address]
--- OUTSIDE RECORDS SUMMARY | 2024-06-24 14:26 | XMS_ITS | Continuity of Care Document ---
Author Organization [facility] Address [address] [place] [address]- Care Team Providers Care Content Checker Name Role Phone Vivi HENNING, Celestina Givens Primary Care Physician Encounter [facility] Date(s): 11/23/23 - 12/23/23 [facility] [address] [place] [address]- Allergies, Adverse Reactions, Alerts No Known Allergies [...] 08/21/22 Given tetanus/diphtheria/pertussis, acel(Tdap) 7 08/13/12 Given NUIL-WaI-0iHRT 12y+ bivalent booster vax 06/14/22 Recorded SARS-CoV-2 mRNA (yhxxfwu-gmrq-njyjd) vax 02/14/22 Recorded SARS-CoV-2 (COVID-19) mRNA BNT-162b2 vac 05/06/21 Given SARS-CoV-2 (COVID-19) mRNA BNT-162b2 vac 11/04/20 Recorded SARS-CoV-2 (COVID-19) mRNA BNT-162b2 vac 10/14/20 Recorded pneumococcal 23-valent vaccine 8 04/07/19 Given 1Result Comment: screening negative 2Result Comment: [facility]# [id number] 3Result Comment: [05/25/2018] seqirus lot number [id number] exp 01/26/2019 [facility] [id number] 4Result Comment: [08/20/2017] [facility] [id number] 5Admin Note: VIM dated 01/29/12 GIVEN TODAY 6Result Comment: [facility]# [id number] 7Admin Note: VIM dated 08/22/11 GIVEN TODAY 8Result Comment: [facility]#[id number] Medications acetaminophen 500 mg oral capsule 2 [...] 1 Refills, Soft Stop, 12/06/23 17:28:00 EDT, [facility]/pharmacy #5, Partial fill upon patient [...] 05/17/23 16:45:00 EDT, Route to Pharmacy Electronically, [facility]/pharmacy #2024, Partial fill upon patient request if the presc... Start Date: 05/17/23 Stop Date: 05/17/24 Status: Ordered diclofenac 1% topical gel See Instructions, APPLY TO AFFECTED AREA 4 TIMES A DAY, # 100 Gm, 1 Refills, Maintenance, 11/07/23 7:48:00 EDT, [facility]/pharmacy #2024, 25, APPLY TO AFFECTED [...] Gm, 0 Refills, Maintenance, 02/28/21 16:31:00 EDT, [place], [facility]/pharmacy #2024, Partial fill upon patient request if the prescription is for... Start Date: 02/28/21 Status: Ordered FLUoxetine 10 mg oral capsule 10 mg, 1, capsule, By Mouth, Daily, to be taken with 20mg capsules to equal 30mg daily, # 90 capsule, Refills 1, Tot. Refills 1, Maintenance, 07/31/23 19:01:00 EST, Route to Pharmacy Electronically, [facility]/pharmacy #2024, Partial fill upon patient reques... Start Date: 07/31/23 Status: Ordered FLUoxetine 20 mg oral capsule 1, capsule, By Mouth, Daily, # 90 capsule, Refills 1, Tot. Refills 1, Maintenance, 07/31/23 19:01:00 EST, Route to Pharmacy Electronically, [facility]/pharmacy #2024, 157.5, cm, 07/13/23 9:57:00 [...] tablet, 0 Refills, Maintenance, 10/12/23 6:42:00 EDT, [facility]/pharmacy #2024, 157.5, cm, 07/13/23 9:57:00 EST, Height, 145.9, kg, 05/22/23 7:39:00 EDT, Dry Weight Start Date: 10/12/23 Status: Ordered meclizine 25 mg oral tablet See Instructions, PRN Dizziness, 1 tablet By Mouth 3 times a day, # 30 tablet, 0 Refills, Maintenance, 02/27/23 10:43:00 EDT, [facility]/pharmacy #2025, Partial fill [...] Refills, Maintenance, 10/24/23 11:39:00 EDT, ER Tablet, [facility]/pharmacy #2025, Partial fill [...] Code MRI Safety Implantable Status Assigning Authority [id number] Unknown [id number] Unknown 08/26/24 Unknown Unknown Active GS1 Patient Care team information Care Team Personnel Name: Celestina Trinidad MD Position: [facility] Physician - Primary Care Member Role: PCP Address: Address: [address] [place] [address] Name: Hemalatha Lucas RN [facility] Heydi Potts RN Position: [facility] SN RN Member Role: Primary Care Nurse Name: Janice Romano LPN Position: [facility] RN Member Role: Primary Care Nurse Name: Nadya Low RN Position: [facility] RN Member Role: Primary Care Nurse Name: Mirna Greenfield RN Position: [facility] RN Member Role: Primary Care Nurse Name: Nessa Bonilla RN Position: [facility] Enterprise Data Architect Member Role: Primary Care Nurse Care Team Related Persons Name: DINESH SARGENT Address: home [address] [place] [address] Name: BON DE Address: home [address] [address]
--- OUTSIDE RECORDS SUMMARY | 2024-06-24 14:26 | XMS_ITS | Continuity of Care Document ---
Author Organization [facility] Address [address] [place] [address]- Care Team Providers Care Site Project Manager Name Role Phone Celestina Trinidad MD Primary Care Physician Encounter [facility] Date(s): 10/26/23 - 11/25/23 [facility] [address] [place] [address]- Allergies, Adverse Reactions, Alerts No Known Allergies [...] 08/21/22 Given tetanus/diphtheria/pertussis, acel(Tdap) 7 08/13/12 Given SRCP-VzH-7sAIH 12y+ bivalent booster vax 06/14/22 Recorded SARS-CoV-2 mRNA (uttnbib-dkoi-cxbga) vax 02/14/22 Recorded SARS-CoV-2 (COVID-19) mRNA BNT-162b2 vac 05/06/21 Given SARS-CoV-2 (COVID-19) mRNA BNT-162b2 vac 11/04/20 Recorded SARS-CoV-2 (COVID-19) mRNA BNT-162b2 vac 10/14/20 Recorded pneumococcal 23-valent vaccine 8 04/07/19 Given 1Result Comment: screening negative 2Result Comment: [facility]# [id number] 3Result Comment: [05/25/2018] [facility] lot number [id number] exp 01/26/2019 [facility] 37279-309-74 4Result Comment: [08/20/2017] [facility] 34831-226-59 5Admin Note: VIM dated 01/29/12 GIVEN TODAY 6Result Comment: [facility]# [id number] 7Admin Note: VIM dated 08/22/11 GIVEN TODAY 8Result Comment: [facility]#[id number] Medications acetaminophen 500 mg oral capsule 2 [...] Gm, 0 Refills, Maintenance, 02/28/21 16:31:00 EDT, [place], [facility], Partial fill upon patient request [...] Maintenance,08/25/22 22:35:00 EST, [facility] fill upon patient [...] tablet, 0 Refills, Maintenance, 10/12/23 6:42:00 EDT, [facility]/pharmacy #2024, 157.5, cm, 07/13/23 9:57:00 EST, Height, 145.9, kg, 05/22/23 7:39:00 EDT, Dry Weight Start Date: 10/12/23 Status: Ordered meclizine 25 mg oral tablet See Instructions, PRN Dizziness, 1 tablet By Mouth 3 times a day, # 30 tablet, 0 Refills, Maintenance, 02/27/23 10:43:00 EDT, [facility]/pharmacy #2024, Partial fill upon patient request if the prescriptionis for a schedule II opioid drug., 157, cm, ... Start Date: 02/27/23 Status: Ordered meloxicam 15 mg oral tablet See Instructions, TAKE 1 TABLET BY MOUTH DAILY WITH FOOD., # 30 tablet, 5 Refills, Maintenance, 10/08/23 17:05:00 EDT, [facility]/pharmacy #2024, 157.5, cm, 07/13/23 9:57:00 EST, Height, 145.9, kg, :39:00 EDT, Dry Weight Start Date: 10/08/23 Status: Ordered metFORMIN 500 mg oral tablet, extended release 1 tablet = 500 mg, By Mouth, Daily, # 90 tablet, 1 Refills, Maintenance, 10/24/23 11:39:00 EDT, ER Tablet, [facility]/pharmacy #202, Partial fill upon patient [...] tablet, 0 Refills, Maintenance, 11/05/23 16:28:00 EDT, [facility]/pharmacy #2025, Partial fill upon [...] Code MRI Safety Implantable Status Assigning Authority [id number] [id number] Unknown [id number] Unknown 08/26/24 Unknown Unknown Active GS1 Patient Care team information Care Team Personnel Name: Celestina Trinidad MD Position: S Physician - Primary Care Member Role: PCP Address: Address: [address] [place] [id number] Name: Hemalatha Lucas RN Position: [facility] Name: Nessa Bonilla RN Position: [facility] Spaghetti Press Helper Member Role: Primary Care Nurse Care Team Related Persons Name: DINESH SARGENT Address: home [address] [place] [address] Name: BON DE Address: home [address] [place] [address]
--- OUTSIDE RECORDS SUMMARY | 2024-06-24 14:26 | XMS_ITS | Continuity of Care Document ---
Author Organization [facility] Address [address] [place] [address]- Care Team Providers Care Senior Tax Manager Name Role Phone Vivi HENNING, Celestina Givens Primary Care Physician Encounter [facility] Date(s): 06/13/22 - 07/13/22 [facility] [address] [place] [address]- Allergies, Adverse Reactions, Alerts No Known Allergies Immunizations Given and Recorded Vaccine Date Status Refusal Reason [id number]-XfU-[id number] 12y+ bivalent booster vax 06/14/22 Recorded influenza [...] inactivated 4 07/31/12 Gi hali SARS-CoV-2 mRNA (ejmztch-owtp-jepcp) vax 02/14/22 Recorded SARS-CoV-2 (COVID-19) mRNA BNT-162b2 vac 05/06/21 Given SARS-CoV-2 (COVID-19) mRNA BNT-162b2 vac 11/04/20 Recorded SARS-CoV-2 (COVID-19) mRNA BNT-162b2 vac 10/14/20 Recorded pneumococcal 23-valent vaccine 5 04/07/19 Given tetanus/diphtheria/pertussis, acel(Tdap) 6 08/13/12 Given 1Result Comment: [facility]# [id number] 2Result Comment: [05/25/2018] [facility] lot number [id number] exp 01/26/2019 [facility] 61722-443-86 3Result Comment: [08/20/2017] [facility] [phone] 4Admin Note: VIM dated 01/29/12 GIVEN TODAY 5Result Comment: [facility]#[id number] 6Admin Note: VIM dated 08/22/11 GIVEN TODAY [...] Stop, 04/10/2215:14:00 EDT, Route to Pharmacy Electronically, [id number], [facility]/pharmacy #202, 158, cm, 04/10/22 14:56:00 [...] Maintenance,07/11/22 16:33:00 EST, Route to Pharmacy Electronically, [facility]/pharmacy #2024, Partial fill upon patient request if the prescription is for a schedule II... Start Date: 07/11/22 Status: Ordered Anoro Ellipta 62.5 mcg-25 mcg/inh inhalation powder 1 puffs, By Mouth, Daily, # 1 each, 6 Refills, Maintenance, 05/11/22 13:00:00 EDT, Pow[place], [facility], Partial fill upon patient request if [...] 0 Refills, Maintenance, 07/13/22 21:24:00 EST, Tablet, [facility]/pharmacy #202, Partial fill upon patient [...] Gm, 0 Refills, Maintenance, 02/28/21 16:31:00 EDT, [place], [facility]/pharmacy #2025, Partial fill upon patient request if the prescription is for... Start Date: 02/28/21 Status: Ordered FLUoxetine 20 mg oral capsule See Instructions, TAKE 1 CAPSULE BY MOUTH EVERY DAY, # 90 capsule, Refills 1, Maintenance, 06/13/2215:26:00 EST, Instructions Replace Required Details, Route to Pharmacy Electronically, [facility]ORE [facility], 158, cm, 06/09/22 11:21:00 EST, Height, 143, kg... Start Date: 06/13/22 Status: Ordered gabapentin 300 mg oral capsule 300 mg, 1, capsule, By Mouth, 3 times a day, # 90 capsule, Refills 1, Tot. Refills 1, Maintenance, 07/03/22 14:24:00 EST, Route to Pharmacy Electronically, [facility]/pharmacy #202, Partial fill upon patient request if the prescription is for a schedule II... Start Date: 07/03/22 Status: Ordered levothyroxine 0.137 mg oral tablet 1 tablet = 137 mcg, By Mouth, Daily, 1 tab on days 1-6, take 2 tabs on day 7, # 102 tablet, 1 Refills, Maintenance, 07/03/22 14:41:00 EST, Tablet, [facility]/pharmacy #2025, Partial fill [...] tablet, 0 Refills, Maintenance, 05/11/21 13:11:00 EDT, [facility]/pharmacy #202, Partial fill upon patient request if the prescriptionis for a schedule II opioid drug., 160.02, cm, ... Start Date: 05/11/21 Status: Ordered meloxicam 15 mg oral tablet See Instructions, TAKE 1 TABLET BY MOUTH DAILY WITH FOOD. LABS NEEDED FOR FURTHER REFILLS, # 30 tablet, 3 Refills, Maintenance, 06/08/22 14:55:00 EST, [facility], 158, cm, 06/08/22 14:23:00 EST, [...] tablet, 0 Refills, Maintenance, 07/11/22 17:21:00 EST, [facility]/pharmacy #2024, 158, cm, 07/07/22 11:19:00 EST, Height,143, kg, 01/04/21 10:42:00 EDT, Dry Weight Start Date: 07/11/22 Status: Ordered zolpidem 10 mg oral tablet 1 tablet = 10 mg, By Mouth, Daily at bedtime, PRN for sleep, for 30 days, masspat check may fill less, # 30 tablet, 2 Refills, Acute 07/19/22 9:22:00 EST, 04/20/22 9:22:00 EDT, Tablet, [facility], 158, cm, 04/10/22 14:56:00 EDT, Height, 143, kg... Start Date: 04/20/22 Stop Date: 07/19/22 Status: Ordered zolpidem 10 mg oral tablet 1 tablet = 10 mg, By Mouth, Daily at bedtime, PRN for sleep, for 30 days, masspat check may fill less, # 30 tablet, 3 Refills, Acute 07/19/22 13:40:00 EST, 03/21/22 13:40:00 EDT, Tablet, [facility]/pharmacy#2025, 158, cm, 03/02/22 11:38:00 EDT, [...] Care Physician Member Role: PCP Address: Address: [address] [place] [id number] Name: Lauren Mack RN Position: [facility] [...] Nessa Bonilla RN Position: [facility] Historical Records Administrator Member Role: Primary Care Nurse Care Team Related Persons Name: ROSETTA DINESH Address: home [address] [place] [address] Name: BON DE Address: home [address] [address]
--- OUTSIDE RECORDS SUMMARY | 2024-06-24 14:26 | XMS_ITS | Continuity of Care Document ---
Author Organization [facility] Address [address] [place] [address]- Care Team Providers Care Complaint Operator Name Role Phone Vivi HENNING, Celestina Givens Primary Care Physician Encounter [facility] Date(s): 09/14/23 - 10/14/23 [facility] [address] [place] [address]- Allergies, Adverse Reactions, Alerts No Known Allergies [...] 08/21/22 Given tetanus/diphtheria/pertussis, acel(Tdap) 7 08/13/12 Given XYLZ-AiQ-7vEMT 12y+ bivalent booster vax 06/14/22 Recorded SARS-CoV-2 mRNA (qsaduiy-bids-kcsap) vax 02/14/22 Recorded SARS-CoV-2 (COVID-19) mRNA BNT-162b2 vac 05/06/21 Given SARS-CoV-2 (COVID-19) mRNA BNT-162b2 vac 11/04/20 Recorded SARS-CoV-2 (COVID-19) mRNA BNT-162b2 vac 10/14/20 Recorded pneumococcal 23-valent vaccine 8 04/07/19 Given 1Result Comment: screening negative 2Result Comment: [facility]# 01219-817-09 3Result Comment: [05/25/2018] seq[facility] lot number [id number] exp 01/26/2019 [facility] 38237-186-09 4Result Comment: [08/20/2017] [facility] 13848-222-21 5Admin Note: VIM dated 01/29/12 GIVEN TODAY 6Result Comment: [facility]# [id number] 7Admin Note: VIM dated 08/22/11 GIVEN TODAY 8Result Comment: [facility]#[id number] Medications acetaminophen 500 mg oral capsule 2 [...] 05/17/23 16:45:00 EDT, Route to Pharmacy Electronically, [facility]/pharmacy #2024, Partial fill upon patient request if the presc... Start Date: 05/17/23 Stop Date: 05/17/24 Status: Ordered diclofenac 1% topical gel See Instructions, APPLY TO AFFECTED AREA 4 TIMES A DAY, # 100 Gm, 1 Refills, Maintenance, 09/02/23 8:08:00 EST, [facility], 25, APPLY TO AFFECTED AREA 4 TIMES [...] Gm, 0 Refills, Maintenance, 02/28/21 16:31:00 EDT, [place], [facility], Partial fill upon patient request [...] 07/31/23 19:01:00 EST, Route to Pharmacy Electronically, [facility]/pharmacy #2024, 157.5, cm, 07/13/23 9:57:00 EST, Height, 145.9, kg, 05/22/23 7:39:00 EDT, Dry Weight Start Date: 07/31/23 Status: Ordered gabapentin 300 mg oral capsule 600 mg, 2, capsule, By Mouth, 3 times a day, # 180 capsule, Refills 3, Tot. Refills 3, Maintenance,08/25/22 22:35:00 EST, [facility] fill upon patient request [...] tablet, 0 Refills, Maintenance, 10/12/23 6:42:00 EDT, [facility]/pharmacy #2024, 157.5, cm, 07/13/23 9:57:00 EST, Height, 145.9, kg, 05/22/23 7:39:00 EDT, Dry Weight Start Date: 10/12/23 Status: Ordered meclizine 25 mg oral tablet See Instructions, PRN Dizziness, 1 tablet By Mouth 3 times a day, # 30 tablet, 0 Refills, Maintenance, 02/27/23 10:43:00 EDT, [facility]/pharmacy #2024, Partial fill upon patient [...] Code MRI Safety Implantable Status Assigning Authority [id number] [id number] Unknown [id number] Unknown 08/26/24 Unknown Unknown Active GS1 Patient Care team information Care Team Personnel Name: Celestina Trinidad MD Position: [facility] Physician - Primary Care Member Role: PCP Address: Address: [address] [place] [id number] Name: Hemalatha Lucas RN Position: [facility] RN Member Role: Primary Care Nurse Name: Lauren Mack RN Position: [facility] MARY Nurse Member Role: Primary Care Nurse Name: Madelaine Ruiz RN Position: [facility] RN Member Role: Primary Care Nurse Name: Lora Santiago RN Position: [facility] RN Member Role: Primary Care Nurse Name: Mayco Ro RN Position: [facility] RN Member Role: Primary Care Nurse Name: Heydi Potts RN Position: [facility] RN Member Role: Primary Care Nurse Name: Janice Romano LPN Position: [facility] RN Member Role: Primary Care Nurse Name: Nadya Low RN Position: [facility] RN Member Role: Primary Care Nurse Name: Mirna Greenfield RN Position: [facility] RN Member Role: Primary Care Nurse Name: Nessa Bonilla RN Position: [facility] Women'S Studies Lecturer Member Role: Primary Care Nurse Care Team Related Persons Name: DINESH SARGENT Address: home [address] [place] [address] Name: BON DE Address: home [address] [address]
--- OUTSIDE RECORDS SUMMARY | 2024-06-24 14:26 | XMS_ITS | Continuity of Care Document ---
Author Organization [facility] Address [address] [place] [address]- Care Team Providers Care Superintendent Building Name Role Phone Vivi HENNING, Celestina Givens Primary Care Physician Encounter [facility] Date(s): 04/11/23 - 05/11/23 [facility] [address] [place] [address]- Allergies, Adverse Reactions, Alerts No Known Allergies Immunizations Given and Recorded Vaccine Date Status Refusal Reason tetanus/diphtheria/pertussis, acel(Tdap) 1 08/21/22 Given tetanus/diphtheria/pertussis, acel(Tdap) 2 08/13/12 Given XXEB-GxU-7lAST 12y+ bivalent booster vax 06/14/22 Recorded influenza [...] inactivated 6 07/31/12 Gi hali SARS-CoV-2 mRNA (goginsz-ezno-bcqfp) vax 02/14/22 Recorded SARS-CoV-2 (COVID-19) mRNA BNT-162b2 vac 05/06/21 Given SARS-CoV-2 (COVID-19) mRNA BNT-162b2 vac 11/04/20 Recorded SARS-CoV-2 (COVID-19) mRNA BNT-162b2 vac 10/14/20 Recorded pneumococcal 23-valent vaccine 7 04/07/19 Given 1Result Comment: [facility]# 90022-793-56 2Admin Note: VIM dated 08/22/11 GIVEN TODAY 3Result Comment: [facility]# [id number] 4Result Comment: [05/25/2018] [facility] lot number [id number] exp 01/26/2019 [facility] 63732-816-96 5Result Comment: [08/20/2017] [facility] [id number] 6Admin Note: VIM dated 01/29/12 GIVEN TODAY 7Result Comment: [facility]#[id number] Medications acetaminophen 500 mg oral capsule 2 [...] Stop, 04/10/2215:14:00 EDT, Route to Pharmacy Electronically, [id number], [facility]/pharmacy #2025, 158, cm, 04/10/22 [...] 1 Refills, Maintenance, 01/08/23 9:36:00EDT, [facility], 50, APPLY TOPICALLY 4 TIMES A DAY, [...] Gm, 0 Refills, Maintenance, 02/28/21 16:31:00 EDT, [place], [facility]/pharmacy #2024, Partial fill upon patient request if the prescription is for... Start Date: 02/28/21 Status: Ordered FLUoxetine 10 mg oral capsule 10 mg, 1, capsule, By Mouth, Daily, to be taken with 20mg capsules to equal 30mg daily, # 90 capsule, Refills 1, Tot. Refills 1, Maintenance, 04/03/23 11:25:00 EDT, Route to Pharmacy Electronically, [facility]/pharmacy #2024, Partial fill upon patient reques... Start Date: 04/03/23 Status: Ordered FLUoxetine 20 mg oral capsule 1, capsule, By Mouth, Daily, # 90 capsule, Refills 1, Tot. Refills 1, Maintenance, 04/03/23 11:23:00 EDT, Route to Pharmacy Electronically, [facility]/pharmacy #2024, 157, cm, 03/14/23 11:02:00 EDT, Height,145, kg, 08/29/22 20:13:00 EST, Dry Weight Start Date: 04/03/23 Status: Ordered gabapentin 300 mg oral capsule 600 mg, 2, capsule, By Mouth, 3 times a day, # 180 capsule, Refills 3, Tot. Refills 3, Maintenance,08/25/22 22:35:00 EST, Route to Pharmacy Electronically, [facility]/pharmacy #2024, Partial fill upon [...] tablet, 2 Refills, Maintenance, 02/27/23 7:25:00 EDT, [facility], 157, cm, 12/08/22 14:27:00 EDT, Height, 145, [...] Care Member Role: PCP Address: Address: [address] [place] [address] Name: Hemalatha Lucas RN Position: [facility] RN Member Role: Primary Care Nurse Name: Lauren Mack RN Position: [facility] AMB Nurse Member Role: Primary Care Nurse Name: Madelaine Ruiz RN Position: [facility] RN [...] RN Position: [facility] Hospital Moving Picture Producer Member Role: Primary Care Nurse Care Team Related Persons Name: ROSETTADINESH Address: home [address] [place] [address] Name: BON DE Address: home [address] [place] [id number]
--- OUTSIDE RECORDS SUMMARY | 2024-06-24 14:26 | XMS_ITS | Continuity of Care Document ---
Author Organization [facility] Address [address] [place] [address]- Care Team Providers Care Unhairing Machine Operator Name Role Phone Noe VISUAL INSPECTOR, Mónica Graham Primary Care Physician Encounter [facility] Date(s): 07/13/21 - 08/12/21 [facility] [address] [place] [address]- Allergies, Adverse Reactions, Alerts No Known Allergies [...] tetanus/diphtheria/pertussis, acel(Tdap) 6 08/13/12 Given 1Result Comment: [facility]# [id number] 2Result Comment: [05/25/2018] [facility] lot number [id number] exp 01/26/2019 [facility] [id number] 3Result Comment: [08/20/2017] [facility] [id number] 4Admin Note: VIM dated 01/29/12 GIVEN TODAY 5Result Comment: [facility]#[id number] 6Admin Note: VIM dated 08/22/11 GIVEN TODAY [...] 16:52:00 EST, [place], Route to Pharmacy Electronically, [id number], [facility]/pharmacy #2024, 160.02, cm, [...] 07/25/21 16:53:00 EST, Route to Pharmacy Electronically, [id number], [facility], 160.02, cm, 07/25/21 16:20:00 EST, [...] Gm, 0 Refills, Maintenance, 02/28/21 16:31:00 EDT, [place], [facility]/pharmacy #202, Partial fill [...] 0 Refills, [facility] 70451, 160.02, cm, 05/06/21 10:09:00 EDT, Height, 143, [...]
--- OUTSIDE RECORDS SUMMARY | 2024-06-24 14:26 | XMS_ITS | Continuity of Care Document ---
Author Organization [facility] Address [address] [place] [address]- Care Team Providers Care Claims Processor Name Role Phone Vivi HENNING, Celestina Givens Primary Care Physician Encounter [facility] [place] [place] Date(s): 12/10/23 - 01/09/24 [facility] [address] [place] [address]- Allergies, Adverse Reactions, Alerts No Known Allergies [...] 08/21/22 Given tetanus/diphtheria/pertussis, acel(Tdap) 7 08/13/12 Given [id number] 12y+ bivalent booster vax 06/14/22 Recorded SARS-CoV-2 mRNA (ceixymd-mimy-psbfl) vax 02/14/22 Recorded SARS-CoV-2 (COVID-19) mRNA BNT-162b2 vac 05/06/21 Given SARS-CoV-2 (COVID-19) mRNA BNT-162b2 vac 11/04/20 Recorded SARS-CoV-2 (COVID-19) mRNA BNT-162b2 vac 10/14/20 Recorded pneumococcal 23-valent vaccine 8 04/07/19 Given 1Result Comment: screening negative 2Result Comment: [facility]# [id number] 3Result Comment: [05/25/2018] seqirus lot number [id number] exp 01/26/2019 [facility] [id number] 4Result Comment: [08/20/2017] [facility] [id number] 5Admin Note: VIM dated 01/29/12 GIVEN TODAY 6Result Comment: [facility]# [id number] 7Admin Note: VIM dated 08/22/11 GIVEN TODAY 8Result Comment: [facility]#[id number] Medications acetaminophen 500 mg oral capsule 2 [...] 1 Refills, Soft Stop, 12/06/23 17:28:00 EDT, [facility]/pharmacy #5, Partial fill upon patient [...] 05/17/23 16:45:00 EDT, Route to Pharmacy Electronically, [facility]/pharmacy #2024, Partial fill upon patient request if the presc... Start Date: 05/17/23 Stop Date: 05/17/24 Status: Ordered diclofenac 1% topical gel See Instructions, APPLY TO AFFECTED AREA 4 TIMES A DAY, # 100 Gm, 1 Refills, Maintenance, 11/07/23 7:48:00 EDT, [facility]/pharmacy #2024, 25, APPLY TO AFFECTED [...] Gm, 0 Refills, Maintenance, 02/28/21 16:31:00 EDT, [place], [facility]/pharmacy #2024, Partial fill upon patient request if the prescription is for... Start Date: 02/28/21 Status: Ordered FLUoxetine 10 mg oral capsule 10 mg, 1, capsule, By Mouth, Daily, to be taken with 20mg capsules to equal 30mg daily, # 90 capsule, Refills 1, Tot. Refills 1, Maintenance, 07/31/23 19:01:00 EST, Route to Pharmacy Electronically, [facility]/pharmacy #2024, Partial fill upon patient reques... Start Date: 07/31/23 Status: Ordered FLUoxetine 20 mg oral capsule 1, capsule, By Mouth, Daily, # 90 capsule, Refills 1, Tot. Refills 1, Maintenance, 07/31/23 19:01:00 EST, Route to Pharmacy Electronically, [facility]/pharmacy #2024, 157.5, cm, 07/13/23 9:57:00 EST, Height, 145.9, kg, 05/22/23 7:39:00 EDT, Dry Weight Start Date: 07/31/23 Status: Ordered gabapentin 300 mg oral capsule 600 mg, 2, capsule, By Mouth, 3 times a day, # 180 capsule, Refills 3, Tot. Refills 3, Maintenance,08/25/22 22:35:00 EST, Route to Pharmacy Electronically, [facility]/pharmacy #2024, Partial fill upon patient [...] tablet, 1 Refills, Maintenance, 12/28/23 16:17:00 EDT, [facility] STORE [id number], 157.5, cm, 10/18/23 15:15:00 EDT, Height, 145.9, [...] Code MRI Safety Implantable Status Assigning Authority [id number] Unknown [id number] Unknown 08/26/24 Unknown Unknown Active GS1 Patient Care team information Care Team Personnel Name: Celestina Trinidad MD Position: [facility] Physician - Primary Care Member Role: PCP Address: Address: [address] [place] [address] Name: Hemalatha Lucas RN Position: [facility] RN Member Role: Primary Care Nurse Name: Lauren Mack RN Position: [facility] AMB Nurse Member Role: Primary Care Nurse Name: Madelaine Ruiz RN Position: [facility] RN Member Role: Primary Care Nurse Name: Lora Santiago RN Position: [facility] SN RN Member Role: Primary Care Nurse Name: Mayco Ro RN Position: [facility] RN Member Role: Primary Care Nurse Name: Heydi Potts RN Position: [facility] SN RN Member Role: Primary Care Nurse Name: Janice Romano LPN Position: [facility] RN Member Role: Primary Care Nurse Name: Nadya Low RN Position: [facility] RN Member Role: Primary Care Nurse Name: Mirna Greenfield RN Position: [facility] RN Member Role: Primary Care Nurse Name: Nessa Bonilla RN Position: [facility] Feed Mill Manager Member Role: Primary Care Nurse Care Team Related Persons Name: ROSETTADINESH AVILA Address: home [address] [place] [address] Name: BON DE Address: home [address] [address]
--- OUTSIDE RECORDS SUMMARY | 2024-06-24 14:26 | XMS_ITS | Continuity of Care Document ---
Author Organization [facility] Address [address] [place] [address]- Care Team Providers Care Media Clerk Name Role Phone Vivi HENNING, Celestina Givens Primary Care Physician Encounter [facility] Date(s): 06/26/22 - 07/26/22 [facility] [address] [place] [address]- Allergies, Adverse Reactions, Alerts No Known Allergies Immunizations Given and Recorded Vaccine Date Status Refusal Reason [id number] 12y+ bivalent booster vax 06/14/22 Recorded influenza [...] inactivated 4 07/31/12 Gi hali SARS-CoV-2 mRNA (nvmubzu-yfet-dhkzq) vax 02/14/22 Recorded SARS-CoV-2 (COVID-19) mRNA BNT-162b2 vac 05/06/21 Given SARS-CoV-2 (COVID-19) mRNA BNT-162b2 vac 11/04/20 Recorded SARS-CoV-2 (COVID-19) mRNA BNT-162b2 vac 10/14/20 Recorded pneumococcal 23-valent vaccine 5 04/07/19 Given tetanus/diphtheria/pertussis, acel(Tdap) 6 08/13/12 Given 1Result Comment: [facility]# [id number] 2Result Comment: [05/25/2018] seq[facility] lot number [id number] exp 01/26/2019 [facility] [id number] 3Result Comment: [08/20/2017] [facility] [id number] 4Admin Note: VIM dated 01/29/12 GIVEN TODAY 5Result Comment: [facility]#[id number] 6Admin Note: VIM dated 08/22/11 GIVEN TODAY [...] Stop, 04/10/2215:14:00 EDT, Route to Pharmacy Electronically, [id number], [facility]/pharmacy #2025, 158, cm, 04/10/22 14:56:00 EDT, Height, 143,... Start Date: 04/10/22 Status: Ordered amLODIPine 10 mg oral tablet 1 tablet, By Mouth, Daily, # 90 tablet, 0 Refills, Maintenance, 07/21/22 17:34:00 EST, [facility], 158, cm, 07/21/22 15:09:00 EST, Height, 143, kg, 01/04/21 10:42:00 EDT, Dry Weight Start Date: 07/21/22 Status: Ordered Anoro Ellipta 62.5 mcg-25 mcg/inh inhalation powder 1 puffs, By Mouth, Daily, # 1 each, 6 Refills, Maintenance, 05/11/22 13:00:00 EDT, Powder, [facility], Partial fill upon patient request [...] 100 Gm, 1 Refills, 09/19/21 12:51:00 EST, [facility]/pharmacy #2024, 25, APPLY TOPICALLY 4 TIMES A DAY, 160.02, cm, 07/25/21 16:20:00 EST, Height, 143, kg,01/04/21 10:42:00 EDT, Dry Weight Start Date: 09/19/21 Status: Ordered doxycycline hyclate 100 mg oral tablet 1 tablet = 100 mg, By Mouth, 2 times a day, for 10 days, # 20 tablet, 0 Refills, Acute 08/02/22 1:51:00 EST, 07/23/22 1:51:00 EST, Capsule, [facility]/pharmacy #2024, Partial fill upon patient request if the prescription is for a schedule II opioid drug., 15... Start Date: 07/23/22 Stop Date: 08/02/22 Status: Ordered doxycycline hyclate 100 mg oral tablet 1 tablet, By Mouth, 2 times a day, # 20 tablet, 0 Refills, Maintenance, 07/21/22 17:34:00 EST, [facility], 158, cm, 07/21/22 15:09:00 EST, Height, 143, kg, 01/04/21 10:42:00 EDT, Dry Weight Start Date: 07/21/22 Stop Date: 07/31/22 Status: Ordered Flonase 50 mcg/inh nasal spray See Instructions, 2 sprays Nares twice daily x 1 week, then once daily x 1-2 weeks until symptoms improve, # 16 Gm, 0 Refills, Maintenance, 02/28/21 16:31:00 EDT, [place], [facility]/pharmacy #202, Partial fill upon patient request if the prescription is for... Start Date: 02/28/21 Status: Ordered FLUoxetine 20 mg oral capsule See Instructions, TAKE 1 CAPSULE BY MOUTH EVERY DAY, # 90 capsule, Refills 1, Maintenance, 06/13/2215:26:00 EST, Instructions Replace Required Details, Route to Pharmacy Electronically, [facility] STORE 9[facility]10, 158, cm, 06/09/22 11:21:00 EST, Height, 143, kg... Start Date: 06/13/22 Status: Ordered gabapentin 300 mg oral capsule 600 mg, 2, capsule, By Mouth, 2 times a day, # 120 capsule, Refills 1, Tot. Refills 1, Maintenance,07/22/22 8:06:00 EST, Route to Pharmacy Electronically, [facility]/pharmacy #202, Partial fill upon patient request if the prescription is for a schedule II... Start Date: 07/22/22 Status: Ordered levothyroxine 0.137 mg oral tablet 1 tablet = 137 mcg, By Mouth, Daily, 1 tab on days 1-6, take 2 tabs on day 7, # 102 tablet, 1 Refills, Maintenance, 07/03/22 14:41:00 EST, Tablet, [facility]/pharmacy #2025, Partial fill [...] tablet, 0 Refills, Maintenance, 05/11/21 13:11:00 EDT, [facility]/pharmacy #2025, Partial fill [...] Care Physician Member Role: PCP Address: Address: [address] [place] [id number] Name: Lauren Mack RN Position: [facility] Nurse Member Role: Primary Care Nurse [...] Care Nurse Name: Nessa Bonilla RN Position: [facility] Jet Aircraft Servicer Member Role: Primary Care Nurse Care Team Related Persons Name: ROSETTA DINESH Address: home [address] [place] [address] Name: BON DE Address: home [address] [address]
--- OUTSIDE RECORDS SUMMARY | 2024-06-24 14:26 | XMS_ITS | Continuity of Care Document ---
Author Organization [facility] Address [address] [place] [address]- Care Team Providers Care Joint Sealer Name Role Phone Celestina Trinidad MD Primary Care Physician Encounter [facility] [place] Date(s): 10/18/23 - 10/25/23 [facility] [address] [place] [address]- Encounter Diagnosis Hypothyroidism(Discharge Diagnosis) - 10/18/23 Chronic low back pain(Discharge Diagnosis) - 10/18/23 Controlled substance agreement signed(Discharge Diagnosis) - 10/18/23 Breast hypertrophy(Discharge Diagnosis) - 10/18/23 Morbid obesity(Discharge Diagnosis) - 10/18/23 Attending Physician: Celestina Trinidad MD Allergies, Adverse [...] 08/21/22 Given tetanus/diphtheria/pertussis, acel(Tdap) 7 08/13/12 Given EVVJ-OaK-4aDYB 12y+ bivalent booster vax 06/14/22 Recorded SARS-CoV-2 mRNA (erdwmkh-xkhk-hhowh) vax 02/14/22 Recorded SARS-CoV-2 (COVID-19) mRNA BNT-162b2 vac 05/06/21 Given SARS-CoV-2 (COVID-19) mRNA BNT-162b2 vac 11/04/20 Recorded SARS-CoV-2 (COVID-19) mRNA BNT-162b2 vac 10/14/20 Recorded pneumococcal 23-valent vaccine 8 04/07/19 Given 1Result Comment: screening negative 2Result Comment: [facility]# [id number] 3Result Comment: [05/25/2018] seq[facility] lot number [id number] exp 01/26/[address] [facility] 28273-187-83 4Result Comment: [08/20/2017] [facility] 98356-857-00 5Admin Note: VIM dated 01/29/12 GIVEN TODAY 6Result Comment: [facility]# [id number] 7Admin Note: VIM dated 08/22/11 GIVEN TODAY 8Result Comment: [facility]#[id number] Medications acetaminophen 500 mg oral capsule 2 [...] Refills, Maintenance, 09/02/23 8:08:00 EST, [facility], 25, APPLY TO AFFECTED AREA 4 TIMES [...] Gm, 0 Refills, Maintenance, 02/28/21 16:31:00 EDT, [place], [facility]/pharmacy #2024, Partial fill [...] 0 Refills, Maintenance, 10/12/23 6:42:00 EDT, [facility]/pharmacy #2024, 157.5, cm, [...] Effective Dates Health Status Clinical Service Informant Hypothyroidism Discharge Diagnosis 10/18/23 Chronic low back pain Discharge Diagnosis 10/18/23 Controlled substance agreement signed Discharge Diagnosis 10/18/23 Breast hypertrophy Discharge Diagnosis 10/18/23 Morbid obesity Discharge Diagnosis 10/18/23 Vital Signs Most recent to oldest [Reference Range]: 1 2 Height 157.5 cm (10/18/23 3:15 PM) 157.5 cm (10/18/23 3:08 PM) Oxygen Saturation [94-100 %] 97 % (10/18/23 3:08 PM) Pulse Rate [55-90 bpm] 75 bpm (10/18/23 3:08 PM) Blood Pressure [90-138/55-84 mm Hg] 165/ 80mm Hg *H* (10/18/23 3:15 PM) 172/95mm Hg *H* (10/18/23 3:08 PM) Blood pressure sites Arm, right (10/18/23 3:15 PM) Arm, right (10/18/23 3:08 PM) Weight Obtained Via Standing scale (10/18/23 3:08 PM) Social History Social History Type Response [...] Code MRI Safety Implantable Status Assigning Authority [id number] [id number] Unknown [id number] Unknown 08/26/24 Unknown Unknown Active GS1 Patient Care team information Care Team Personnel Name: Celestina Trinidad MD Position: [facility] Physician - Primary Care Member Role: PCP Address: Address: [address] [place] [address] Name: Hemalatha Lucas RN Position: [facility] [...] Name: Nessa Bonilla RN Position: [facility] Limb Driver Member Role: Primary Care Nurse Care Team Related Persons Name: DINESH SARGENT Address: home [address] [place] [address] Name: BON DE Address: home [address] [address]
--- OUTSIDE RECORDS SUMMARY | 2024-06-24 14:26 | XMS_ITS | Continuity of Care Document ---
Author Organization [facility] Address [address] [place] [address]- Care Team Providers Care Regional Economist Name Role Phone Celestina Trinidad MD Primary Care Physician Encounter [facility] Date(s): 10/18/23 - 11/17/23 [facility] [address] [place], [place] [address] Attending Physician: Calixto Beltran Admitting Physician: AdmtrCalixto [...] 08/21/22 Given tetanus/diphtheria/pertussis, acel(Tdap) 7 08/13/12 Given [id number]-KzM-9eUZW 12y+ bivalent booster vax 06/14/22 Recorded SARS-CoV-2 mRNA (vvfqtio-bcnj-ubdfm) vax 02/14/22 Recorded SARS-CoV-2 (COVID-19) mRNA BNT-162b2 vac 05/06/21 Given SARS-CoV-2 (COVID-19) mRNA BNT-162b2 vac 11/04/20 Recorded SARS-CoV-2 (COVID-19) mRNA BNT-162b2 vac 10/14/20 Recorded pneumococcal 23-valent vaccine 8 04/07/19 Given 1Result Comment: screening negative 2Result Comment: [facility]# [id number] 3Result Comment: [05/25/2018] seq[facility] lot number [id number] exp 01/26/2019 [facility] [id number] 4Result Comment: [08/20/2017] [facility] [id number] 5Admin Note: VIM dated 01/29/12 GIVEN TODAY 6Result Comment: [facility]# [id number] 7Admin Note: VIM dated 08/22/11 GIVEN TODAY 8Result Comment: [facility]#[id number] Medications acetaminophen 500 mg oral capsule 2 [...] EDT, Route to Pharmacy Electronically, [facility]/pharmacy #5, Partial fill upon patient request if the presc... Start Date: 05/17/23 Stop Date: 05/17/24 Status: Ordered diclofenac 1% topical gel See Instructions, APPLY TO AFFECTED AREA 4 TIMES A DAY, # 100 Gm, 1 Refills, Maintenance, 11/07/23 7:48:00 EDT, [facility]/pharmacy #2024, 25, APPLY TO AFFECTED AREA [...] 0 Refills, Maintenance, 02/28/21 16:31:00 EDT, [place], [facility]/pharmacy #202, Partial fill upon patient request [...] Route to Pharmacy Electronically, [facility]/pharmacy #2024, 157.5, cm, 07/13/23 9:57:00 [...] tablet, 0 Refills, Maintenance, 02/27/23 10:43:00 EDT, [facility]/pharmacy #2024, Partial fill upon patient [...] tablet, 0 Refills, Maintenance, 11/05/23 16:28:00 EDT, [facility]/pharmacy #2024, Partial fill upon patient [...] Code MRI Safety Implantable Status Assigning Authority [id number] [id number] Unknown [id number] Unknown 08/26/24 Unknown Unknown Active GS1 [...] Radiology Results Scanned Authored Date: * Fernando Jamison: PERFORM Event Display: Radiology Results Scanned Authored Date: Note * Event Display: Discharge/Transfer Note Hospital Authored Date: * Yesenia Kwon: PERFORM, SIGN, VERIFY Event Display: Patient Education/Instruction Authored Date: [facility] BMP PV Family Clinical Summary Person [...] [facility] provider by calling [facility] at [phone]. Patient Education Information Follow-up Details: Patient Education Material: Please follow instructions discussed with your provider during this visit as well as any education documents you were given today. Patient Care team information Care Team Personnel Name: Celestina Trinidad MD Position: [facility] Physician - Primary Care Member Role: PCP Address: Address: [address] [place] [address] Name: Hemalatha Lucas RN Position: [facility] RN Member Role: Primary Care Nurse Name: Lauren Mack RN Position: [facility] AMB Nurse Member Role: Primary Care Nurse Name: Madelaine Ruiz RN Position: [facility] RN Member Role: Primary Care Nurse Name: Lora Santiago RN Position: [facility] RN Member Role: Primary Care Nurse Name: Mayco Ro RN Position: [facility] RN Member Role: Primary Care Nurse Name: Heydi Potts RN Position: [facility] RN Member Role: Primary Care Nurse Name: Janice Romano LPN Position: [facility] RN Member Role: Primary Care Nurse Name: Nadya Low RN Position: [facility] RN Member Role: Primary Care Nurse Name: Mirna Greenfield RN Position: [facility] RN Member Role: Primary Care Nurse Name: Nessa Bonilla RN Position: [facility] Community Living Coach Member Role: Primary Care Nurse Care Team Related Persons Name: ROSETTADINESH Address: home [address] [place] [address] Name: BON DE Address: home [address] [address]
--- OUTSIDE RECORDS SUMMARY | 2024-06-24 14:26 | XMS_ITS | Continuity of Care Document ---
Author Organization [facility] Address [address] [place] [address]- Care Team Providers Care Portfolio Architect Name Role Phone Vivi HENNING, Celestina Givens Primary Care Physician Encounter [facility] Date(s): 06/12/23 - 07/12/23 [facility] [address] [place] [address]- Allergies, Adverse Reactions, Alerts No Known Allergies Immunizations Given and Recorded Vaccine Date Status Refusal Reason tetanus/diphtheria/pertussis, acel(Tdap) 1 08/21/22 Given tetanus/diphtheria/pertussis, acel(Tdap) 2 08/13/12 Given EQVU-RpA-0dXNJ 12y+ bivalent booster vax 06/14/22 Recorded influenza [...] inactivated 6 07/31/12 Gi hali SARS-CoV-2 mRNA (uwezbrr-czqq-xyjfn) vax 02/14/22 Recorded SARS-CoV-2 (COVID-19) mRNA BNT-162b2 vac 05/06/21 Given SARS-CoV-2 (COVID-19) mRNA BNT-162b2 vac 11/04/20 Recorded SARS-CoV-2 (COVID-19) mRNA BNT-162b2 vac 10/14/20 Recorded pneumococcal 23-valent vaccine 7 04/07/19 Given 1Result Comment: [facility]# [id number] 2Admin Note: VIM dated 08/22/11 GIVEN TODAY 3Result Comment: [facility]# [id number] 4Result Comment: [05/25/2018] [facility] lot number [id number] exp 01/26/2019 [facility] [id number] 5Result Comment: [08/20/2017] [facility] [id number] 6Admin Note: VIM dated 01/29/12 GIVEN TODAY 7Result Comment: [facility]#[id number] Medications acetaminophen 500 mg oral capsule 2 [...] Gm, 0 Refills, Maintenance, 02/28/21 16:31:00 EDT, [place], [facility]/pharmacy #2024, Partial fill upon [...] 11:23:00 EDT, Route to Pharmacy Electronically, [facility]/pharmacy #2024, 157, cm, 03/14/23 11:02:00 EDT, Height,145, kg, 08/29/22 20:13:00 EST, Dry Weight Start Date: 04/03/23 Status: Ordered gabapentin 300 mg oral capsule 600 mg, 2, capsule, By Mouth, 3 times a day, # 180 capsule, Refills 3, Tot. Refills 3, Maintenance,08/25/22 22:35:00 EST, Route to Pharmacy Electronically, [facility]/pharmacy #2025, Partial fill upon [...] 2 Refills, Maintenance, 02/27/23 7:25:00 EDT, [facility] STORE 64945, 157, cm, 12/08/22 14:27:00 EDT, Height, 145, kg, 08/29/22 20:13:00 EST, Dry... Start Date: 02/27/23 Status: Ordered meclizine 25 mg oral tablet See Instructions, PRN Dizziness, 1 tablet By Mouth 3 times a day, # 30 tablet, 0 Refills, Maintenance, 02/27/23 10:43:00 EDT, [facility]/pharmacy #202, Partial fill upon patient request if the prescriptionis for a schedule II opioid drug., 157, cm, ... Start Date: 02/27/23 Status: Ordered meloxicam 15 mg oral tablet See Instructions, TAKE 1 TABLET BY MOUTH DAILY WITH FOOD. LABS NEEDED FOR FURTHER REFILLS, # 30 tablet, 1 Refills, Maintenance, 05/01/23 14:45:00 EDT, [facility]/pharmacy #2025, 157, cm, 03/14/23 11:02:00 EDT, [...] 05/22/23 9:10:00 EDT, Route to Pharmacy Electronically, [facility]/pharmacy... Start Date: 05/22/23 Status: Ordered Splint [...] tablet, 0 Refills, Maintenance, 07/10/23 11:57:00 EST, [facility]/pharmacy #2024, Partial fill upon [...] Code MRI Safety Implantable Status Assigning Authority [id number] [id number] Unknown [id number] Unknown 08/26/24 Unknown Unknown Active GS1 Patient Care team information Care Team Personnel Name: Celestina Trinidad MD Position: [facility] Physician - Primary Care Member Role: PCP Address: Address: [address] [place] [address] Name: Hemalatha Lucas RN [facility] Hospital Incident Engineer Member Role: Primary Care Nurse Care Team Related Persons Name: ROSETTADINESH AVILA Address: home [address] [place] [address] Name: BON DE Address: home [address] [place] [id number]
--- OUTSIDE RECORDS SUMMARY | 2024-06-24 14:27 | XMS_ITS | Continuity of Care Document ---
Author Organization [facility] Address [address] [place] [address]- Care Team Providers Care Fisher Terrapin Name Role Phone Vivi HENNING, Celestina Givens Primary Care Physician En[place] [facility] Date(s): 04/01/24 - 05/01/24 [facility] [address] [place] [address]- Allergies, Adverse Reactions, Alerts No Known Allergies [...] 08/21/22 Given tetanus/diphtheria/pertussis, acel(Tdap) 7 08/13/12 Given [id number]-PsC-[id number] 12y+ bivalent booster vax 06/14/22 Recorded SARS-CoV-2 mRNA (kryxsez-xafg-swpeg) vax 02/14/22 Recorded SARS-CoV-2 (COVID-19) mRNA BNT-162b2 vac 05/06/21 Given SARS-CoV-2 (COVID-19) mRNA BNT-162b2 vac 11/04/20 Recorded SARS-CoV-2 (COVID-19) mRNA BNT-162b2 vac 10/14/20 Recorded pneumococcal 23-valent vaccine 8 04/07/19 Given 1Result Comment: screening negative 2Result Comment: [facility]# [id number] 3Result Comment: [05/25/2018] [facility] lot number [id number] exp 01/26/2019 [facility] [place] 16734-404-90 4Result Comment: [08/20/2017] [facility] [phone] 5Admin Note: VIM dated 01/29/12 GIVEN TODAY 6Result Comment: [facility]# [id number] 7Admin Note: VIM dated 08/22/11 GIVEN TODAY 8Result Comment: [facility]#[id number] Medications acetaminophen 500 mg oral capsule 2 [...] Gm, 0 Refills, Maintenance, 02/28/21 16:31:00 EDT, [place], [facility]/pharmacy #2024, Partial fill upon patient request if the prescription is for... Start Date: 02/28/21 Status: Ordered FLUoxetine 10 mg oral capsule 1, capsule, By Mouth, Daily, INSTR:TO BE TAKEN WITH 20MG CAPSULES TO EQUAL 30MG DAILY, # 90 capsule, Refills 1, Maintenance, 01/25/24 9:11:00 EDT, Route to Pharmacy Electronically, [facility] STORE 76652, 157.5, cm, 01/22/24 10:31:00 EDT, Height, 145.9, [...] Refills, Maintenance, 12/28/23 16:17:00 EDT, [facility], 157.5, cm, 10/18/23 15:15:00 EDT, Height, 145.9, [...] 0 Refills, Maintenance, 03/31/24 17:50:00 EDT, [facility]/pharmacy #5, Partial [...] Code MRI Safety Implantable Status Assigning Authority [id number] Unknown [id number] Unknown 08/26/24 Unknown Unknown Active GS1 Patient Care team information Care Team Personnel Name: Celestina Trinidad MD Position: [facility] Physician - Primary Care Member Role: PCP Address: Address: [address] [place] [id number] Name: Hemalatha Lucas RN Position: [facility] RN Member Role: Primary Care Nurse Name: Lauren Mack RN Position: [facility] RN [...] Potts RN Position: [facility] SN [...] Nessa Bonilla RN Position: [facility] Sweat Band Separator Member Role: Primary Care Nurse Care Team Related Persons Name: DINESH SARGENT Address: home [address] [place] [address] Name: BON DE Address: [address] [address]
--- OUTSIDE RECORDS SUMMARY | 2024-06-24 14:27 | XMS_ITS | Continuity of Care Document ---
Author Organization [facility] Address [address] [place] [address]- Care Team Providers Care Programming Instructor Name Role Phone Vivi HENNING, Celestina Givens Primary Care Physician Encounter [facility] Date(s): 05/26/22 - 06/02/22 [facility] [address] [place] [address]- Encounter Diagnosis Umbilical hernia(Discharge Diagnosis) - 05/26/22 Attending Physician: Madeline Lux NP Referring Physician: [...] acel(Tdap) 6 08/13/12 Given 1Result Comment: [facility]# [id number] 2Result Comment: [05/25/2018] [facility] lot number [id number] exp 01/26/2019 [facility] [phone] 3Result Comment: [08/20/2017] [facility] [phone] 4Admin Note: VIM dated 01/29/12 GIVEN TODAY 5Result Comment: [facility]#[id number] 6Admin Note: VIM dated 08/22/11 GIVEN TODAY [...] Stop, 04/10/2215:14:00 EDT, Route to Pharmacy Electronically, [id number], [facility]/pharmacy #2025, 158, cm, 04/10/22 14:56:00 EDT, Height, 143,... Start Date: 04/10/22 Status: Ordered Anoro Ellipta 62.5 mcg-25 mcg/inh inhalation powder 1 puffs, By Mouth, Daily, # 1 each, 6 Refills, Maintenance, 05/11/22 13:00:00 EDT, Pow[place], [facility], Partial fill upon patient [...] 100 Gm, 1 Refills, 09/19/21 12:51:00 EST, [facility]/pharmacy #2024, 25, APPLY TOPICALLY 4 TIMES A DAY, 160.02, cm, 07/25/21 16:20:00 EST, Height, 143, kg,01/04/21 10:42:00 EDT, Dry Weight Start Date: 09/19/21 Status: Ordered Flonase 50 mcg/inh nasal spray See Instructions, 2 sprays Nares twice daily x 1 week, then once daily x 1-2 weeks until symptoms improve, # 16 Gm, 0 Refills, Maintenance, 02/28/21 16:31:00 EDT, [place], [facility]/pharmacy #2024, Partial fill upon patient request if the prescription is for... Start Date: 02/28/21 Status: Ordered FLUoxetine 10 mg oral capsule 10 mg, 1, capsule, By Mouth, Daily, Take with 20mg capsule for total of 30mg daily, # 90 capsule, Refills 1, Tot. Refills 1, Maintenance, 04/11/22 14:55:00 EDT, Route to Pharmacy Electronically, [facility], Partial fill upon patient request if t... Start Date: 04/11/22 Status: Ordered levothyroxine 0.137 mg oral tablet See Instructions, TAKE 1 TABLET BY MOUTH ON DAYS 1-6, THEN TAKE 2 TABLETS BY MOUTH ON DAY 7, # 96 tablet, 1 Refills, [facility] STORE 02795, 160.02, cm, 10/04/21 10:38:00 EST, Height, 143, [...] 06/16/22 16:47:00 EST, 04/10/22 16:47:00 EDT, Tablet, [facility]/pharmacy #... Start Date: 04/10/22 Stop Date: 06/16/22 Status: Ordered meclizine 25 mg oral tablet See Instructions, PRN Dizziness, 1 tablet By Mouth 3 times a day, # 30 tablet, 0 Refills, Maintenance, 05/11/21 13:11:00 EDT, [facility]/pharmacy #2024, Partial fill upon patient request if the prescriptionis for a schedule II opioid drug., 160.02, cm, 100... Start Date: 05/11/21 Status: Ordered meloxicam 15 mg oral tablet See Instructions, TAKE 1 TABLET BY MOUTH DAILY WITH FOOD, # 30 tablet, 0 Refills, Maintenance, 05/11/22 18:51:00 EDT, [facility], Labs needed for further refills., 158, [...] tablet, 0 Refills, Maintenance, 05/11/22 18:51:00 EDT, [facility], 158, cm, 05/08/22 11:49:00 EDT, Height, 143, kg, 01/04/21 10:42:00 EDT, Dry Weight Start Date: 05/11/22 Status: Ordered zolpidem 10 mg oral tablet 1 tablet = 10 mg, By Mouth, Daily at bedtime, PRN for sleep, for 30 days, masspat check may fill less, # 30 tablet, 2 Refills, Acute 07/19/22 9:22:00 EST, 04/20/22 9:22:00 EDT, Tablet, [facility], 158, cm, 04/10/22 14:56:00 EDT, Height, [...] Health Status Cl inical Service Informant Umbilical hernia Discharge Diagnosis 05/26/22 Vital Signs Most recent to oldest [Reference Range]: 1 Height 158 cm (05/26/22 2:28 PM) Oxygen Saturation [94-100 %] 98 % (05/26/22 2:28 PM) Pulse Rate [55-90 bpm] 75 bpm (05/26/22 2:28 PM) Blood Pressure [90-138/55-84 mm Hg] 148/ 79mm Hg *H* (05/26/22 2:28 PM) Respiratory Rate [16-30 br/min] 18 br/mi n (05/26/22 2:28 PM) Blood pressure sites Arm, left (05/26/22 2:28 PM) Social History Social History Type Response Smoking Status Former smoker, quit more than 30 days ago; Other: smoked up to pack a day x 25 years; entered on: 11/14/21 Sex Patient Care team information Personnel Name: Vivi HENNING, Celestina Givens [facility] [address]
--- OUTSIDE RECORDS SUMMARY | 2024-06-24 14:27 | XMS_ITS | Continuity of Care Document ---
Author Organization [facility] Address [address] [place] [address]- Care Team Providers Care Sand Digger Name Role Phone Vivi HENNING, Celestina Givens Primary Care Physician Encounter [facility] Date(s): 12/17/23 - 01/16/24 [facility] [address] [place] [address]- Allergies, Adverse Reactions, Alerts No Known Allergies [...] 08/21/22 Given tetanus/diphtheria/pertussis, acel(Tdap) 7 08/13/12 Given TUQS-DpJ-1yBHH 12y+ bivalent booster vax 06/14/22 Recorded SARS-CoV-2 mRNA (jbzoyqe-wwyh-kqczt) vax 02/14/22 Recorded SARS-CoV-2 (COVID-19) mRNA BNT-162b2 vac 05/06/21 Given SARS-CoV-2 (COVID-19) mRNA BNT-162b2 vac 11/04/20 Recorded SARS-CoV-2 (COVID-19) mRNA BNT-162b2 vac 10/14/20 Recorded pneumococcal 23-valent vaccine 8 04/07/19 Given 1Result Comment: screening negative 2Result Comment: [facility]# [id number] 3Result Comment: [05/25/2018] [facility] lot number [id number] exp 01/26/2019 [facility] 81313-589-51 4Result Comment: [08/20/2017] [facility] 01861-574-80 5Admin Note: VIM dated 01/29/12 GIVEN TODAY 6Result Comment: [facility]# [id number] 7Admin Note: VIM dated 08/22/11 GIVEN TODAY 8Result Comment: [facility]#[id number] Medications acetaminophen 500 mg oral capsule 2 [...] Soft Stop, 12/06/23 17:28:00 EDT, [facility]/pharmacy #5, Partial fill upon [...] EDT, Route to Pharmacy Electronically, [facility]/pharmacy #2024, Partial fill upon patient request if the presc... Start Date: 05/17/23 Stop Date: 05/17/24 Status: Ordered diclofenac 1% topical gel See Instructions, APPLY TO AFFECTED AREA 4 TIMES A DAY, # 100 Gm, 1 Refills, Maintenance, 11/07/23 7:48:00 EDT, [facility]/pharmacy #2024, 25, APPLY TO [...] Gm, 0 Refills, Maintenance, 02/28/21 16:31:00 EDT, [place], [facility]/pharmacy #2024, Partial [...] Electronically, [facility]/pharmacy #2024, 157.5, cm, 07/13/23 [...] tablet, 1 Refills, Maintenance, 12/28/23 16:17:00 EDT, [facility] STORE 52442, 157.5, cm, 10/18/23 15:15:00 EDT, Height, 145.9, kg, 05/22/23 7:39:00 EDT, Dry Weight Start Date: 12/28/23 Status: Ordered meclizine 25 mg oral tablet See Instructions, PRN Dizziness, 1 tablet By Mouth 3 times a day, # 30 tablet, 0 Refills, Maintenance, 02/27/23 10:43:00 EDT, [facility]/pharmacy #2025, [...] Refills, Maintenance, 10/24/23 11:39:00 EDT, ER Tablet, [facility]/pharmacy #2025, Partial [...] Code MRI Safety Implantable Status Assigning Authority [id number] Unknown [id number] Unknown 08/26/24 Unknown Unknown Active GS1 Patient Care team information Care Team Personnel Name: Celestina Trinidad MD Position: [facility] Physician - Primary Care Member Role: PCP Address: Address: [address] [place] [address] Name: Hemalatha Lucas RN [facility]: [facility] [...] Care Nurse Name: Nessa Bonilla RN Position: [facility] Receiving Weigher Member Role: Primary Care Nurse Care Team Related Persons Name: DINESH SARGENT Address: home [address] [place] [address] Name: BON DE Address: home [address] [address]
--- OUTSIDE RECORDS SUMMARY | 2024-06-24 14:27 | XMS_ITS | Continuity of Care Document ---
Author Organization [facility] Address [address] [place] [address]- Care Team Providers Care Imaging Specialist Name Role Phone Vivi HENNING, Celestina Givens Primary Care Physician [place] [facility] 10/21/22 [facility] [address] [place] [address]- Allergies, Adverse Reactions, Alerts No Known Allergies Immunizations Given and Recorded Vaccine Date Status Refusal Reason tetanus/diphtheria/pertussis, acel(Tdap) 1 08/21/22 Given tetanus/diphtheria/pertussis, acel(Tdap) 2 08/13/12 Given ULZK-RxT-4rVIB 12y+ bivalent booster vax 06/14/22 Recorded influenza [...] inactivated 6 07/31/12 Gi hali SARS-CoV-2 mRNA (ofptips-mcdu-xrnox) vax 02/14/22 Recorded SARS-CoV-2 (COVID-19) mRNA BNT-162b2 vac 05/06/21 Given SARS-CoV-2 (COVID-19) mRNA BNT-162b2 vac 11/04/20 Recorded SARS-CoV-2 (COVID-19) mRNA BNT-162b2 vac 10/14/20 Recorded pneumococcal 23-valent vaccine 7 04/07/19 Given 1Result Comment: [facility]# [id number] 2Admin Note: VIM dated 08/22/11 GIVEN TODAY 3Result Comment: [facility]# 18060-482-68 4Result Comment: [05/25/2018] [facility] lot number [id number] exp 01/26/2019 [facility] 10921-810-40 5Result Comment: [08/20/2017] [facility] 82418-968-11 6Admin Note: VIM dated 01/29/12 GIVEN TODAY 7Result Comment: [facility]#[id number] Medications acetaminophen 500 mg oral capsule 2 [...] Stop, 04/10/2215:14:00 EDT, Route to Pharmacy Electronically, [id number], [facility]/pharmacy #2025, 158, cm, 04/10/22 14:56:00 EDT, Height, 143,... Start Date: 04/10/22 Status: Ordered amLODIPine 5 mg oral tablet 1 tablet, By Mouth, Daily, # 30 tablet, 5 Refills, Maintenance, 08/24/22 20:08:00 EST, [facility], 159, cm, 08/21/22 11:38:00 EST, Height, 143, kg, 01/04/21 10:42:00 EDT, Dry Weight Start Date: 08/24/22 Status: Ordered budesonide-formoterol 80 mcg-4.5 mcg/inh inhalation aerosol with adapter 2, puffs, Inhalation, 2 times a day, PRN, use with spacer chamber, rinse mouth and throat after use, # 10.2 Gm, Refills 5, Tot. Refills 5, Maintenance, 09/12/22 11:06:00 EST, Aerosol, Route to Pharmacy Electronically, [id number]... Start Date: 09/12/22 Status: Ordered cilostazol 50 mg oral tablet 1 tablet = 50 mg, By Mouth, Daily, # 180 tablet, 0 Refills, Maintenance, 09/02/22 10:35:00 EST, Tablet, [facility]/pharmacy #2024, Partial [...] 08/31/22 13:30:00 EST, Route to Pharmacy Electronically, [facility]/pharmacy #5, Partial fill upon patient request if the p... Start Date: 08/31/22 Status: Ordered Flonase 50 mcg/inh nasal spray See Instructions, 2 sprays Nares twice daily x 1 week, then once daily x 1-2 weeks until symptoms improve, # 16 Gm, 0 Refills, Maintenance, 02/28/21 16:31:00 EDT, [place], [facility]/pharmacy #2025, Partial fill upon patient request if the prescription is for... Start Date: 02/28/21 Status: Ordered FLUoxetine 20 mg oral capsule See Instructions, TAKE 1 CAPSULE BY MOUTH EVERY DAY, # 90 capsule, Refills 1, Maintenance, 06/13/2215:26:00 EST, Instructions Replace Required Details, Route to Pharmacy Electronically, [facility], 158, cm, 06/09/22 11:21:00 EST, Height, 143, kg... Start Date: 06/13/22 Status: Ordered furosemide 20 mg oral tablet 1, tablet, By Mouth, Daily, MAY REPEAT IF NEEDED IN 2 HOURS, # 30 tablet, Refills 0, Maintenance, 10/18/22 21:31:00 EDT, Route to Pharmacy Electronically, [facility], 157, cm, 09/13/22 15:58:00 EST, Height, 145, [...] 1 Refills, Maintenance, 07/03/22 14:41:00 EST, Tablet, [facility]/pharmacy #2024, Partial fill upon patient request if the prescription is for a schedule II opioid dr... Start Date: 07/03/22 Status: Ordered meclizine 25 mg oral tablet See Instructions, PRN Dizziness, 1 tablet By Mouth 3 times a day, # 30 tablet, 0 Refills, Maintenance, 05/11/21 13:11:00 EDT, [facility]/pharmacy #2024, Partial fill upon patient request if the prescriptionis for a schedule II opioid drug., 160.02, cm, 10/0... Start Date: 05/11/21 Status: Ordered meloxicam 15 mg oral tablet See Instructions, TAKE 1 TABLET BY MOUTH DAILY WITH FOOD. LABS NEEDED FOR FURTHER REFILLS, # 30 tablet, 3 Refills, Maintenance, 10/18/22 21:31:00 EDT, [facility] STORE 59330, 157, cm, 09/13/22 15:58:00 EST,Height, 145, kg, [...] 09/05/22 16:29:00 EST, Route to Pharmacy Electronically, [facility]/pharmacy #2024, Partialfill upon patient request if the [...] Team Personnel Name: Celestina Trinidad MD Position: [facility] Primary Care Physician Member Role: PCP Address: Address: [address] [place] [id number] Name: Hemalatha Lucas RN Position: [facility] RN Member Role: Primary Care Nurse Name: Lauren Mack RN Position: [facility] Nurse Member Role: Primary Care Nurse Name: Madelaine Ruiz RN Position: [facility] RN Member Role: Primary Care Nurse Name: Lora Santiago RN Position: [facility] SN RN Member Role: Primary Care Nurse Name: Mayco Ro RN Position: [facility] RN Member Role: Primary Care Nurse Name: Heydi Potts RN Position: [facility] RN Member Role: Primary Care Nurse Name: Janice Romano LPN Position: [facility] RN Member Role: Primary Care Nurse Name: Nadya Low RN Position: [facility] RN Member Role: Primary Care Nurse Name: Mirna Greenfield RN Position: [facility] RN Member Role: Primary Care Nurse Name: Nessa Bonilla RN Position: [facility] Sports Recruiter Member Role: Primary Care Nurse Care Team Related Persons Name: DINESH SARGENT Address: home [address] [place] [address] Name: BON DE Address: home [address] [address]
--- OUTSIDE RECORDS SUMMARY | 2024-06-24 14:27 | XMS_ITS | Continuity of Care Document ---
Author Organization [facility] Address [address] [place] [address]- Care Team Providers Care Film Reader Name Role Phone Florentino AHN, Elder Hannah Primary Care Physician [phone] Encounter [facility] Date(s): 12/20/20 - 01/19/21 [facility] [address] [place], [place] [address] Allergies, Adverse Reactions, Alerts Substance Reaction [...] 08/13/12 Given 1Result Comment: [facility]# [id number] 2Result Comment: [05/25/2018] [facility] lot number [id number] exp 01/26/2019 [facility] 76453-762-26 3Result Comment: [08/20/2017] [facility] 75413-957-42 4Admin Note: VIM dated 01/29/12 GIVEN TODAY 5Result Comment: [facility]#[id number] 6Admin Note: VIM dated 08/22/11 GIVEN TODAY [...] 10/27/20 14:48:00 EDT, Route to Pharmacy Electronically, [id number], [facility]/pharmacy #2024, 160.02, cm, 10/19/20 11:04:00 EDT, Height, 156... Start Date: 10/27/20 Status: Ordered betamethasone-clotrimazole 0.05%-1% topical cream 1 application, Topically, 2 times a day, # 45 Gm, 0 Refills, Maintenance, 12/27/20 14:13:00 EDT, [place], [facility]/pharmacy #2024, Partial fill upon patient request if the prescription is for a schedule II opioid drug., 1 application Topically 2 times a day,... Start Date: 12/27/20 Status: Ordered diclofenac 1% topical gel See Instructions, APPLY TOPICALLY 4 TIMES A DAY, # 100 Gm, 1 Refills, 10/27/20 12:37:00 EDT, [facility]/pharmacy #2024, 25, APPLY TOPICALLY 4 TIMES A DAY, 160.02, cm, 10/19/20 11:04:00 EDT, Height, 156.81, kg, 10/19/20 11:04:00 EDT, Dry Weight Start Date: 10/27/20 Status: Ordered FLUoxetine 20 mg oral capsule 20 mg, 1, capsule, By Mouth, Daily, # 30 capsule, Refills 5, Tot. Refills 5, Maintenance, 12/20/20 14:39:00 EDT, Route to Pharmacy Electronically, [facility]/pharmacy #2024, replacing 10mg dose, 160.02, cm,12/20/20 11:59:00 EDT, Height, 156.81, kg, 10/19/20... Start Date: 12/20/20 Status: Ordered levothyroxine 0.137 mg oral tablet See Instructions, Take 1 tablet by mouth on days 1-6, then take 2 tablets by mouth on day 7, # 121 tablet, 5 Refills, Maintenance, 12/07/20 9:46:00 EDT, [facility]/pharmacy #5, 160.02, cm, 10/19/20 11:04:00 EDT, Height, 156.81, kg, 10/19/20 11:04:00 EDT,... Start Date: 12/07/20 Status: Ordered meloxicam 15 mg oral tablet 1 tablet, By Mouth, Daily, WITH FOOD., # 30 tablet, 1 Refills, Maintenance, 12/20/20 7:39:00 EDT, [facility], 160.02, cm, 10/19/20 11:04:00 EDT, Height, 156.81, [...] tablet, 2 Refills, Maintenance, 09/13/20 16:54:00 EST, [facility]/pharmacy #5, 161, cm, 08/18/20 [...]
--- OUTSIDE RECORDS SUMMARY | 2024-06-24 14:27 | XMS_ITS | Continuity of Care Document ---
Author Organization [facility] Address [address] [place] [address]- Care Team Providers Care Head Buyer Tobacco Name Role Phone Florentino AHN, Elder Hannah Primary Care Physician Encounter [facility] Date(s): 12/06/20 - 01/05/21 [facility] [address] [place] [address]- Allergies, Adverse Reactions, Alerts Substance Reaction Severity [...] 1Result Comment: [facility]# [id number] 2Result Comment: [05/25/2018] [facility] lot number [id number] exp 01/26/2019 [facility] [id number] 3Result Comment: [08/20/2017] [facility] [id number] 4Admin Note: VIM dated 01/29/12 GIVEN TODAY 5Result Comment: [facility]#[id number] 6Admin Note: VIM dated 08/22/11 GIVEN TODAY [...] 10/27/20 14:48:00 EDT, Route to Pharmacy Electronically, [id number], [facility]/pharmacy #2024, 160.02, cm, 10/19/20 11:04:00 EDT, Height, 156... Start Date: 10/27/20 Status: Ordered betamethasone-clotrimazole 0.05%-1% topical cream 1 application, Topically, 2 times a day, # 45 Gm, 0 Refills, Maintenance, 12/27/20 14:13:00 EDT, Cream, [facility]/pharmacy #2024, Partial fill upon patient request if the prescription is for a schedule II opioid drug., 1 application Topically 2 times a day,... Start Date: 12/27/20 Status: Ordered diclofenac 1% topical gel See Instructions, APPLY TOPICALLY 4 TIMES A DAY, # 100 Gm, 1 Refills, 10/27/20 12:37:00 EDT, [facility]/pharmacy #2024, 25, APPLY TOPICALLY 4 TIMES A DAY, 160.02, cm, 10/19/20 11:04:00 EDT, Height, 156.81, kg, 10/19/20 11:04:00 EDT, Dry Weight Start Date: 10/27/20 Status: Ordered FLUoxetine 20 mg oral capsule 20 mg, 1, capsule, By Mouth, Daily, # 30 capsule, Refills 5, Tot. Refills 5, Maintenance, 12/20/20 14:39:00 EDT, Route to Pharmacy Electronically, [facility]/pharmacy #2024, replacing 10mg dose, 160.02, cm,12/20/20 11:59:00 EDT, Height, 156.81, kg, 10/19/20... Start Date: 12/20/20 Status: Ordered levothyroxine 0.137 mg oral tablet See Instructions, Take 1 tablet by mouth on days 1-6, then take 2 tablets by mouth on day 7, # 121 tablet, 5 Refills, Maintenance, 12/07/20 9:46:00 EDT, [facility]/pharmacy #5, 160.02, cm, 10/19/20 11:04:00 EDT, Height, 156.81, kg, 10/19/20 11:04:00 EDT,... Start Date: 12/07/20 Status: Ordered meloxicam 15 mg oral tablet 1 tablet, By Mouth, Daily, WITH FOOD., # 30 tablet, 1 Refills, Maintenance, 12/20/20 7:39:00 EDT, [facility], 160.02, cm, 10/19/20 11:04:00 EDT, Height, 156.81, [...] 08/04/19 17:54:00 EST, Route to Pharmacy Electronically, [facility]/pharmacy #2024, 161, cm, 08/04/19 14:44:00 EST, Height Start Date: 08/04/19 Stop Date: 08/18/19 Status: Ordered traMADol 50 mg oral tablet 2 tablet = 100 mg, By Mouth, Every 12 hours, as needed for pain masspat checked, # 120 tablet, 2 Refills, Maintenance, 09/13/20 16:54:00 EST, [facility]/pharmacy #5, 161, cm, 08/18/20 15:29:00 EST, [...]
--- OUTSIDE RECORDS SUMMARY | 2024-06-24 14:27 | XMS_ITS | Continuity of Care Document ---
Author Organization [facility] em Address Unknown Care Team Providers Care Mixing Roll Operator Name Role Phone Celestina Trinidad MD Primary Care Physician [place] [facility] [place] 06/16/22 [facility] Encounter Diagnosis Umbilical hernia without obstruction or gangrene(Discharge Diagnosis) - 06/09/22 BMI 50.0-59.9, adult(Discharge Diagnosis) - 06/09/22 Attending Physician: Yasemin Diaz MD Admitting Physician: Yasemin Diaz MD Referring Physician: Celestina Trinidad MD Allergies, [...] acel(Tdap) 6 08/13/12 Given 1Result Comment: [facility]# [id number] 2Result Comment: [05/25/2018] [facility] lot number [id number] exp 01/26/[address] [facility] [id number] 3Result Comment: [08/20/2017] [facility] [id number] 4Admin Note: VIM dated 01/29/12 GIVEN TODAY 5Result Comment: [facility]#[id number] 6Admin Note: VIM dated 08/22/11 GIVEN TODAY [...] Stop, 04/10/2215:14:00 EDT, Route to Pharmacy Electronically, [id number], [facility]/pharmacy #2025, 158, cm, 04/10/22 14:56:00 EDT, Height, 143,... Start Date: 04/10/22 Status: Ordered Anoro Ellipta 62.5 mcg-25 mcg/inh inhalation powder 1 puffs, By Mouth, Daily, # 1 each, 6 Refills, Maintenance, 05/11/22 13:00:00 EDT, Powder, [facility], Partial fill upon patient [...] Gm, 0 Refills, Maintenance, 02/28/21 16:31:00 EDT, [place], [facility], Partial fill upon patient request if the prescription is for... Start Date: 02/28/21 Status: Ordered FLUoxetine 20 mg oral capsule See Instructions, TAKE 1 CAPSULE BY MOUTH EVERY DAY, # 90 capsule, Refills 1, Maintenance, 06/13/2215:26:00 EST, Instructions Replace Required Details, Route to Pharmacy Electronically, [facility], 158, cm, 06/09/22 11:21:00 EST, Height, 143, kg... Start Date: 06/13/22 Status: Ordered levothyroxine 0.137 mg oral tablet See Instructions, TAKE 1 TABLET BY MOUTH ON DAYS 1-6, THEN TAKE 2 TABLETS BY MOUTH ON DAY 7, # 96 tablet, 1 Refills, [facility], 160.02, cm, 10/04/21 10:38:00 EST, Height, 143, [...] tablet, 3 Refills, Maintenance, 06/08/22 14:55:00 EST, [facility], 158, cm, 06/08/22 14:23:00 EST, Height, [...] tablet, 0 Refills, Maintenance, 06/14/22 15:39:00 EST, [facility]/pharmacy #2024, 158, cm, 06/09/22 11:21:00 EST, Height,143, kg, 01/04/21 10:42:00 EDT, Dry Weight Start Date: 06/14/22 Status: Ordered zolpidem 10 mg oral tablet 1 tablet = 10 mg, By Mouth, Daily at bedtime, PRN for sleep, for 30 days, masspat check may fill less, # 30 tablet, 2 Refills, Acute 07/19/22 9:22:00 EST, 04/20/22 9:22:00 EDT, [facility], 158, cm, 04/10/22 14:56:00 EDT, Height, 143, kg... Start Date: 04/20/22 Stop Date: 07/19/22 Status: Ordered zolpidem 10 mg oral tablet 1 tablet = 10 mg, By Mouth, Daily at bedtime, PRN for sleep, for 30 days, masspat check may fill less, # 30 tablet, 3 Refills, Acute 07/19/22 13:40:00 EST, 03/21/22 13:40:00 EDT, Tablet, [facility]/pharmacy#2024, 158, cm, 03/02/22 11:38:00 EDT, Height, [...] Effective Dates Health Status Clinical Service Informant Umbilical hernia without obstruction or gangrene Discharge Diagnosis 06/09/22 BMI 50.0-59.9, adult Discharge Diagnosis 06/09/22 Vital Signs Most recent to oldest [Reference Range]: 1 Height 158 cm (06/09/22 11:21 AM) Weight 145.55 kg (06/09/22 11:21 AM) Oxygen Saturation [94-100 %] 98 % (06/09/22 11:21 AM) Pulse Rate [55-90 bpm] 69 bpm (06/09/22 11:21 AM) Body Mass Index [18.5-24.99 kg/m2] 58.3 kg/m2 *>HHI* (06/09/22 11:21 AM) Blood Pressure [90-138/55-84 mm Hg] 164/ 73mm Hg *H* (06/09/22 11:21 AM) Respiratory Rate [16-30 br/min] 22 br/mi n (06/09/22 11:21 AM) Blood pressure sites Arm, left (06/09/22 11:21 AM) Weight Obtained Via Standing scale (06/09/22 11:21 AM) Social History Social History Type Response Smoking Status Former smoker, quit more than 30 days ago; Other: smoked up to pack a day x 25 years; entered on: 11/14/21 Sex Patient Care team information Care Team Personnel Name: Celestina Trinidad MD Position: [facility] Primary Care Physician Member Role: PCP Address: Address: [address] [place] [id number] Name: Lauren Mack RN Position: [facility] AMB Nurse Member Role: Primary Care Nurse Name: Lora Santiago RN Position: [facility] RN Member Role: Primary Care Nurse Name: Mayco Ro RN Position: [facility] RN Member Role: Primary Care Nurse Name: Heydi Potts RN Position: [facility] RN Member Role: Primary Care Nurse Name: Nadya Low RN Position: [facility] RN Member Role: Primary Care Nurse Name: Mirna Greenfield RN Position: [facility] RN Member Role: Primary Care Nurse Name: Nessa Bonilla RN Position: [facility] [employer] Truck Driver Member Role: Primary Care Nurse Care Team Related Persons Name: DINESH SARGENT Address: home [address] [place] [address] Name: BON DE Address: home [address] [address]
--- OUTSIDE RECORDS SUMMARY | 2024-06-24 14:27 | XMS_ITS | Continuity of Care Document ---
Author Organization [facility] Address [address] [place] [address]- Care Team Providers Care Scientific Specialist Name Role Phone Yolanda AHN, Padmaja Pelayo Primary Care Physician Encounter 10/17/21 - 10/24/21 [facility] [address], [facility] [address] [place] [address]- Attending Physician: Noe AHN, Mónica Graham Admitting Physician: Mónica Liu NP Referring Physician: Mónica Liu NP Allergies, Adverse [...] Given 1Result Comment: [facility]# [id number] 2Result Comment: [05/25/2018] [facility] lot number [id number] exp 01/26/2019 [facility] [id number] 3Result Comment: [08/20/2017] [facility] [id number] 4Admin Note: VIM dated 01/29/12 GIVEN TODAY 5Result Comment: [facility]#[id number] 6Admin Note: VIM dated 08/22/11 GIVEN TODAY [...] Replace Required Details, Route to Pharmacy Electronically, [id number]... Start Date: 09/15/21 Status: Ordered Aerochamber w/Mask [...] 07/25/21 16:53:00 EST, Route to Pharmacy Electronically, [id number], [facility], 160.02, cm, 07/25/21 16:20:00 EST, [...] Gm, 0 Refills, Maintenance, 02/28/21 16:31:00 EDT, [place], [facility]/pharmacy #2024, Partial fill upon patient request if the prescription is for... Start Date: 02/28/21 Status: Ordered FLUoxetine 10 mg oral capsule 10 mg, 1, capsule, By Mouth, Daily, Take with 20mg capsule for total of 30mg daily, # 90 capsule, Refills 1, Tot. Refills 1, Maintenance, 09/19/21 12:45:00 EST, Route to [facility]acy Electronically, [facility], Partial fill upon patient request if... Start Date: 09/19/21 Status: Ordered FLUoxetine 20 mg oral capsule 20 mg, 1, capsule, By Mouth, Daily, Take with Fluoxetine 10mg for a total of 30mg, # 90 capsule, Refills 1, Tot. Refills 1, Maintenance, 05/04/21 16:44:00 EDT, Route to Pharmacy Electronically, [facility], replacing 10mg dose, 160.02, cm, 08/0... [...] 30 tablet, 3 Refills, 09/19/21 12:46:00 EST, [facility]/pharmacy #2025, 160.02, cm, [...] 13:47:00 EST, Aerosol, Route to Pharmacy Electronically, [id number], [facility]/pharmacy #2024, 160.02, cm, 07/25/21 16:20:00 EST, [place]... Start Date: 10/03/21 Status: Ordered traMADol 50 mg oral tablet 2 tablet = 100 mg, By Mouth, Every 12 hours, as needed for pain masspat checked, # 112 tablet, 0 Refills, Maintenance, 09/20/21 10:55:00 EST, [facility]/pharmacy #5, 160.02, cm, 07/25/21 [...]
--- OUTSIDE RECORDS SUMMARY | 2024-06-24 14:27 | XMS_ITS | Continuity of Care Document ---
Author Organization [facility] Address [address] [place] [address]- Care Team Providers Care Community Fundraiser Name Role Phone Vivi HENNING, Celestina Givens Primary Care Physician [facility]counter [facility] Date(s): 04/03/23 - 05/03/23 [facility] [address] [place] [address]- Allergies, Adverse Reactions, Alerts No Known Allergies Immunizations Given and Recorded Vaccine Date Status Refusal Reason tetanus/diphtheria/pertussis, acel(Tdap) 1 08/21/22 Given tetanus/diphtheria/pertussis, acel(Tdap) 2 08/13/12 Given [id number] 12y+ bivalent booster vax 06/14/22 Recorded influenza [...] inactivated 6 07/31/12 Gi hali SARS-CoV-2 mRNA (wqjtwqu-rtlk-molat) vax 02/14/22 Recorded SARS-CoV-2 (COVID-19) mRNA BNT-162b2 vac 05/06/21 Given SARS-CoV-2 (COVID-19) mRNA BNT-162b2 vac 11/04/20 Recorded SARS-CoV-2 (COVID-19) mRNA BNT-162b2 vac 10/14/20 Recorded pneumococcal 23-valent vaccine 7 04/07/19 Given 1Result Comment: [facility]# [id number] 2Admin Note: VIM dated 08/22/11 GIVEN TODAY 3Result Comment: [facility]# [id number] 4Result Comment: [05/25/2018] [facility] lot number [id number] exp 01/26/2019 [facility] [id number] 5Result Comment: [08/20/2017] [facility] [id number] 6Admin Note: VIM dated 01/29/12 GIVEN TODAY 7Result Comment: [facility]#[id number] Medications acetaminophen 500 mg oral capsule 2 [...] Stop, 04/10/2215:14:00 EDT, Route to Pharmacy Electronically, [id number], [facility]/pharmacy #2025, 158, cm, 04/10/22 14:56:00 EDT, Height, [...] 1 Refills, Maintenance, 01/08/23 9:36:00EDT, [facility], 50, APPLY TOPICALLY 4 TIMES A DAY, [...] Gm, 0 Refills, Maintenance, 02/28/21 16:31:00 EDT, [place], [facility]/pharmacy #202, Partial fill upon patient request if the prescription is for... Start Date: 02/28/21 Status: Ordered FLUoxetine 10 mg oral capsule 10 mg, 1, capsule, By Mouth, Daily, to be taken with 20mg capsules to equal 30mg daily, # 90 capsule, Refills 1, Tot. Refills 1, Maintenance, 04/03/23 11:25:00 EDT, Route to Pharmacy Electronically, [facility]/pharmacy #2024, Partial fill upon patient reques... Start Date: 04/03/23 Status: Ordered FLUoxetine 20 mg oral capsule 1, capsule, By Mouth, Daily, # 90 capsule, Refills 1, Tot. Refills 1, Maintenance, 04/03/23 11:23:00 EDT, Route to Pharmacy Electronically, [facility]/pharmacy #2024, 157, cm, 03/14/23 11:02:00 EDT, Height,145, [...] 2 Refills, Maintenance, 02/27/23 7:25:00 EDT, [facility] STORE 82934, 157, cm, 12/08/22 14:27:00 EDT, Height, 145, kg, 08/29/22 20:13:00 EST, Dry... Start Date: 02/27/23 Status: Ordered meclizine 25 mg oral tablet See Instructions, PRN Dizziness, 1 tablet By Mouth 3 times a day, # 30 tablet, 0 Refills, Maintenance, 02/27/23 10:43:00 EDT, [facility]/pharmacy #2024, Partial fill upon patient request if the prescriptionis for a schedule II opioid drug., 157, cm, ... Start Date: 02/27/23 Status: Ordered meloxicam 15 mg oral tablet See Instructions, TAKE 1 TABLET BY MOUTH DAILY WITH FOOD. LABS NEEDED FOR FURTHER REFILLS, # 30 tablet, 1 Refills, Maintenance, 05/01/23 14:45:00 EDT, [facility]/pharmacy #2025, 157, cm, 03/14/23 11:02:00 EDT, Height, [...] 0 Refills, Maintenance, 02/20/23 17:17:00 EDT, [facility]/pharmacy #5, 157, cm, 12/08/2313:27:00 EDT, Height, 145, [...] Primary Care Member Role: PCP Address: Address: [address] [place] [address] Name: Hemalatha Lucas RN Position: [facility] [...] Nurse Name: Nessa Bonilla RN Position: [facility] Carpet Layer Helper Member Role: Primary Care Nurse Care Team Related Persons Name: ROSETTA DINESH Address: home [address] [place] [address] Name: BON DE Address: home [address] [place] [id number]
--- OUTSIDE RECORDS SUMMARY | 2024-06-24 14:27 | XMS_ITS | Continuity of Care Document ---
Author Organization [facility] Address [address] [place] [address]- Care Team Providers Care Light Rail Transit Operator Name Role Phone Vivi HENNING, Celestina Givens Primary Care Physician Encounter [facility] Date(s): 06/05/23 - 07/05/23 [facility] [address] [place] [address]- Allergies, Adverse Reactions, Alerts No Known Allergies Immunizations Given and Recorded Vaccine Date Status Refusal Reason tetanus/diphtheria/pertussis, acel(Tdap) 1 08/21/22 Given tetanus/diphtheria/pertussis, acel(Tdap) 2 08/13/12 Given [id number] 12y+ bivalent booster vax 06/14/22 Recorded influenza [...] inactivated 6 07/31/12 Gi hali SARS-CoV-2 mRNA (ybnewzj-euua-kfsux) vax 02/14/22 Recorded SARS-CoV-2 (COVID-19) mRNA BNT-162b2 vac 05/06/21 Given SARS-CoV-2 (COVID-19) mRNA BNT-162b2 vac 11/04/20 Recorded SARS-CoV-2 (COVID-19) mRNA BNT-162b2 vac 10/14/20 Recorded pneumococcal 23-valent vaccine 7 04/07/19 Given 1Result Comment: [facility]# [id number] 2Admin Note: VIM dated 08/22/11 GIVEN TODAY 3Result Comment: [facility]# [id number] 4Result Comment: [05/25/2018] [facility] lot number [id number] exp 01/26/2019 [facility] [id number] 5Result Comment: [08/20/2017] [facility] [id number] 6Admin Note: VIM dated 01/29/12 GIVEN TODAY 7Result Comment: [facility]#[id number] Medications acetaminophen 500 mg oral capsule 2 [...] Pharmacy Electronically, [facility]/pharmacy #2025, Partial fill upon patient request if the presc... Start Date: 05/17/23 Stop Date: 05/17/24 Status: Ordered diclofenac 1% topical gel See Instructions, APPLY TOPICALLY 4 TIMES A DAY, # 100 Gm, 1 Refills, Maintenance, 06/05/23 10:25:00 EST, [facility]/pharmacy #2024, 50, APPLY TOPICALLY 4 TIMES A DAY, 157.5, cm, 05/22/23 7:39:00 EDT, Height, 145.9, kg, 05/22/23 7:39:00 EDT, Dry Weight Start Date: 06/05/23 Status: Ordered Flonase 50 mcg/inh nasal spray See Instructions, 2 sprays Nares twice daily x 1 week, then once daily x 1-2 weeks until symptoms improve, # 16 Gm, 0 Refills, Maintenance, 02/28/21 16:31:00 EDT, [place], [facility]/pharmacy #2025, Partial fill upon [...] 11:23:00 EDT, Route to Pharmacy Electronically, [facility]/pharmacy #202, 157, cm, 03/14/23 11:02:00 EDT, Height,145, kg, 08/29/22 20:13:00 EST, Dry Weight Start Date: 04/03/23 Status: Ordered gabapentin 300 mg oral capsule 600 mg, 2, capsule, By Mouth, 3 times a day, # 180 capsule, Refills 3, Tot. Refills 3, Maintenance,08/25/22 22:35:00 EST, Route to Pharmacy Electronically, [facility]/pharmacy #2024, Partial [...] 2 Refills, Maintenance, 02/27/23 7:25:00 EDT, [facility] STORE 116[facility], 157, cm, 12/08/22 14:27:00 EDT, Height, 145, kg, 08/29/22 20:13:00 EST, Dry... Start Date: 02/27/23 Status: Ordered meclizine 25 mg oral tablet See Instructions, PRN Dizziness, 1 tablet By Mouth 3 times a day, # 30 tablet, 0 Refills, Maintenance, 02/27/23 10:43:00 EDT, [facility]/pharmacy #2024, Partial [...] Code MRI Safety Implantable Status Assigning Authority [id number] Unknown [id number] Unknown 08/26/24 Unknown Unknown Active GS1 Patient Care team information Care Team Personnel Name: Celestnia Trinidad MD Position: [facility] Physician - Primary Care Member Role: PCP Address: Address: [address] [place] [address] Name: Hemalatha Lucas RN [facility] Bonilla RN Position: [facility] Hospital Scrap Drop Crane Operator Member Role: Primary Care Nurse Care Team Related Persons Name: ROSETTADINESH AVILA Address: home [address] [place] [address] Name: BON DE Address: home [address] [place] [id number]
--- OUTSIDE RECORDS SUMMARY | 2024-06-24 14:27 | XMS_ITS | Continuity of Care Document ---
Author Organization [facility] Address [address] [place] [address]- Care Team Providers Care Production Designer Name Role Phone Vivi HENNING, Celestina Givens Primary Care Physician [place] [facility] Date(s): 11/27/23 - 12/27/23 [facility] [address] [place] [address]- Allergies, Adverse Reactions, Alerts No Known Allergies [...] 08/21/22 Given tetanus/diphtheria/pertussis, acel(Tdap) 7 08/13/12 Given [id number] 12y+ bivalent booster vax 06/14/22 Recorded SARS-CoV-2 mRNA (klkdaeo-sbgj-xsyiv) vax 02/14/22 Recorded SARS-CoV-2 (COVID-19) mRNA BNT-162b2 vac 05/06/21 Given SARS-CoV-2 (COVID-19) mRNA BNT-162b2 vac 11/04/20 Recorded SARS-CoV-2 (COVID-19) mRNA BNT-162b2 vac 10/14/20 Recorded pneumococcal 23-valent vaccine 8 04/07/19 Given 1Result Comment: screening negative 2Result Comment: [facility]# [id number] 3Result Comment: [05/25/2018] [facility] lot number [id number] exp 01/26/2019 [facility] [id number] 4Result Comment: [08/20/2017] [facility] [id number] 5Admin Note: VIM dated 01/29/12 GIVEN TODAY 6Result Comment: [facility]# [id number] 7Admin Note: VIM dated 08/22/11 GIVEN TODAY 8Result Comment: [facility]#[id number] Medications acetaminophen 500 mg oral capsule 2 [...] Refills, Soft Stop, 12/06/23 17:28:00 EDT, [facility]/pharmacy #5, Partial fill upon patient request if [...] 16:45:00 EDT, Route to Pharmacy Electronically, [facility]/pharmacy #2024, Partial fill upon patient request if the presc... Start Date: 05/17/23 Stop Date: 05/17/24 Status: Ordered diclofenac 1% topical gel See Instructions, APPLY TO AFFECTED AREA 4 TIMES A DAY, # 100 Gm, 1 Refills, Maintenance, 11/07/23 7:48:00 EDT, [facility]/pharmacy #2024, 25, APPLY TO AFFECTED AREA 4 [...] Gm, 0 Refills, Maintenance, 02/28/21 16:31:00 EDT, [place], [facility]/pharmacy #2024, Partial fill upon patient request if the prescription is for... Start Date: 02/28/21 Status: Ordered FLUoxetine 10 mg oral capsule 10 mg, 1, capsule, By Mouth, Daily, to be taken with 20mg capsules to equal 30mg daily, # 90 capsule, Refills 1, Tot. Refills 1, Maintenance, 07/31/23 19:01:00 EST, Route to Pharmacy Electronically, [facility]/pharmacy #2024, Partial fill upon patient reques... Start Date: 07/31/23 Status: Ordered FLUoxetine 20 mg oral capsule 1, capsule, By Mouth, Daily, # 90 capsule, Refills 1, Tot. Refills 1, Maintenance, 07/31/23 19:01:00 EST, Route to Pharmacy Electronically, [facility]/pharmacy #2024, 157.5, cm, 07/13/23 9:57:00 EST, Height, [...] tablet, 0 Refills, Maintenance, 10/12/23 6:42:00 EDT, [facility]/pharmacy #2024, 157.5, cm, 07/13/23 9:57:00 EST, Height, 145.9, kg, 05/22/23 7:39:00 EDT, Dry Weight Start Date: 10/12/23 Status: Ordered meclizine 25 mg oral tablet See Instructions, PRN Dizziness, 1 tablet By Mouth 3 times a day, # 30 tablet, 0 Refills, Maintenance, 02/27/23 10:43:00 EDT, [facility]/pharmacy #2025, Partial fill [...] Refills, Maintenance, 10/24/23 11:39:00 EDT, ER Tablet, [facility]/pharmacy #2025, Partial fill upon [...] Code MRI Safety Implantable Status Assigning Authority [id number] [id number] Unknown [id number] Unknown 08/26/24 Unknown Unknown Active GS1 Patient Care team information Care Team Personnel Name: Celestina Trinidad MD Position: [facility] Physician - Primary Care Member Role: PCP Address: Address: [address] [place] [address] Name: Hemalatha Lucas RN Position: [facility] RN Member Role: Primary Care Nurse Name: Lauren Mack RN Position: [facility] AMB Nurse Member Role: Primary Care Nurse Name: Madelaine Ruiz RN Position: [facility] RN Member Role: Primary Care Nurse Name: Lora Santiago RN Position: [facility] SN RN Member Role: Primary Care Nurse Name: Mayco Ro RN Position: [facility] RN Member Role: Primary Care Nurse Name: Heydi Potts RN Position: [facility] SN RN Member Role: Primary Care Nurse Name: Janice Romano LPN Position: [facility] RN Member Role: Primary Care Nurse Name: Nadya Low RN Position: [facility] RN Member Role: Primary Care Nurse Name: Mirna Greenfield RN Position: [facility] RN Member Role: Primary Care Nurse Name: Nessa Bonilla RN Position: [facility] Radiation Therapy Technician Member Role: Primary Care Nurse Care Team Related Persons Name: DINESH SARGENT Address: home [address] [place] [address] Name: BON DE Address: home [address] [address]
--- OUTSIDE RECORDS SUMMARY | 2024-06-24 14:27 | XMS_ITS | Continuity of Care Document ---
Author Organization [facility] Address [address] [place] [address]- Care Team Providers Care Loan Analyst Name Role Phone Yolanda AHN, Padmaja Heard Primary Care Physician Encounter [facility] Date(s): 04/17/22 - 05/17/22 [facility] [address] [place] [address]- Allergies, Adverse Reactions, Alerts No Known Allergies [...] tetanus/diphtheria/pertussis, acel(Tdap) 6 08/13/12 Given 1Result Comment: [facility]# [id number] 2Result Comment: [05/25/2018] [facility] lot number [id number] exp 01/26/2019 [facility] 62319-231-90 3Result Comment: [08/20/2017] [facility] [id number] 4Admin Note: VIM dated 01/29/12 GIVEN TODAY 5Result Comment: [facility]#[id number] 6Admin Note: VIM dated 08/22/11 GIVEN TODAY [...] Stop, 04/10/2215:14:00 EDT, Route to Pharmacy Electronically, [id number], [facility]/pharmacy #2025, 158, cm, 04/10/22 [...] 100 Gm, 1 Refills, 09/19/21 12:51:00 EST, [facility]/pharmacy #2024, 25, APPLY TOPICALLY 4 TIMES A DAY, 160.02, cm, 07/25/21 16:20:00 EST, Height, 143, kg,01/04/21 10:42:00 EDT, Dry Weight Start Date: 09/19/21 Status: Ordered Flonase 50 mcg/inh nasal spray See Instructions, 2 sprays Nares twice daily x 1 week, then once daily x 1-2 weeks until symptoms improve, # 16 Gm, 0 Refills, Maintenance, 02/28/21 16:31:00 EDT, [place], [facility]/pharmacy #2024, Partial fill upon patient request if the prescription is for... Start Date: 02/28/21 Status: Ordered FLUoxetine 10 mg oral capsule 10 mg, 1, capsule, By Mouth, Daily, Take with 20mg capsule for total of 30mg daily, # 90 capsule, Refills 1, Tot. Refills 1, Maintenance, 04/11/22 14:55:00 EDT, Route to Pharmacy Electronically, [facility], Partial fill upon patient request if t... Start Date: 04/11/22 Status: Ordered levothyroxine 0.137 mg oral tablet See Instructions, TAKE 1 TABLET BY MOUTH ON DAYS 1-6, THEN TAKE 2 TABLETS BY MOUTH ON DAY 7, # 96 tablet, 1 Refills, [facility] ST[facility] 80131, 160.02, cm, 10/04/21 10:38:00 EST, Height, 143, [...] tablet, 0 Refills, Maintenance, 05/11/21 13:11:00 EDT, [facility]/pharmacy #2024, Partial fill upon patient request if the prescriptionis for a schedule II opioid drug., 160.02, cm, 100... Start Date: 05/11/21 Status: Ordered meloxicam 15 mg oral tablet See Instructions, TAKE 1 TABLET BY MOUTH DAILY WITH FOOD, # 30 tablet, 0 Refills, Maintenance, 05/11/22 18:51:00 EDT, [facility], Labs needed for further refills., [...] Name: Yolanda AHN, Padmaja Heard Address: Address: [address] [place] [address] G[place] [place], [place] [address] [place]
--- OUTSIDE RECORDS SUMMARY | 2024-06-24 14:27 | XMS_ITS | Continuity of Care Document ---
Author Organization [facility] Address [address] [place] [address]- Care Team Providers Care Creamery Worker Name Role Phone Florentino AHN, Elder Hannah Primary Care Physician Encounter [facility] Date(s): 10/27/20 - 11/26/20 [facility] [address] [place], [place] [address] Allergies, Adverse Reactions, Alerts Substance Reaction [...] 1Result Comment: [facility]# [id number] 2Result Comment: [05/25/2018] [facility] lot number [id number] exp 01/26/[address] [facility] 94302-399-86 3Result Comment: [08/20/2017] [facility] [id number] 4Admin Note: VIM dated 01/29/12 GIVEN TODAY 5Result Comment: [facility]#[id number] 6Admin Note: VIM dated 08/22/11 GIVEN TODAY [...] 10/27/20 14:48:00 EDT, Route to Pharmacy Electronically, [id number], [facility]/pharmacy #2024, 160.02, cm, 10/19/20 [...] tablet, 5 Refills, Maintenance, 10/27/20 12:37:00 EDT, [facility]/pharmacy #2024, 160.02, cm, 10/19/20 11:04:00 EDT, Height, 156.81, kg, 10/19/20 11:04:00 EDT,... Start Date: 10/27/20 Status: Ordered meloxicam 15 mg oral tablet 1 tablet, By Mouth, Daily, WITH FOOD., # 30 tablet, 1 Refills, Maintenance, 10/24/20 10:06:00 EDT, [facility] STORE 52763, 160.02, cm, 10/19/20 11:04:00 EDT, Height, 156.81, [...] [facility] 161, cm, 08/04/19 14:44:00 EST, Height Start Date: 08/04/19 Stop Date: 08/18/19 Status: Ordered traMADol 50 mg oral tablet 2 tablet = 100 mg, By Mouth, Every 12 hours, as needed for pain masspat checked, # 120 tablet, 2 Refills, Maintenance, 09/13/20 16:54:00 EST, [facility]/pharmacy #5, 161, cm, 08/18/20 15:29:00 EST, Height Start Date: 09/13/20 Stop Date: 12/12/20 Status: Ordered zolpidem 10 mg oral tablet 1 tablet = 10 mg, By Mouth, Daily at bedtime, PRN for sleep, for 30 days, masspat check may fill less, # 30 tablet, 3 Refills, Acute 01/08/21 9:34:00 EDT, 09/10/20 9:34:00 EST, Tablet, [facility]/pharmacy #2024, 161, cm, 08/18/20 15:29:00 EST, Height [...]
--- OUTSIDE RECORDS SUMMARY | 2024-06-24 14:27 | XMS_ITS | Continuity of Care Document ---
Author Organization [facility] Address [address] [place] [address]- Care Team Providers Care Commercial Electrician Name Role Phone Vivi HENNING, Celestina Givens Primary Care Physician Encounter [facility] Date(s): 07/02/23 - 08/01/23 [facility] [address] [place], [place] [address] Allergies, Adverse Reactions, Alerts No Known [...] 08/21/22 Given tetanus/diphtheria/pertussis, acel(Tdap) 7 08/13/12 Given IBZA-ZrP-5oQQO 12y+ bivalent booster vax 06/14/22 Recorded SARS-CoV-2 mRNA (ducexhn-cegs-xefuw) vax 02/14/22 Recorded SARS-CoV-2 (COVID-19) mRNA BNT-162b2 vac 05/06/21 Given SARS-CoV-2 (COVID-19) mRNA BNT-162b2 vac 11/04/20 Recorded SARS-CoV-2 (COVID-19) mRNA BNT-162b2 vac 10/14/20 Recorded pneumococcal 23-valent vaccine 8 04/07/19 Given 1Result Comment: screening negative 2Result Comment: [facility]# [id number] 3Result Comment: [05/25/2018] [facility] lot number [id number] exp 01/26/[address] [facility] 85403-468-59 4Result Comment: [08/20/2017] [facility] [id number] 5Admin Note: VIM dated 01/29/12 GIVEN TODAY 6Result Comment: [facility]# [id number] 7Admin Note: VIM dated 08/22/11 GIVEN TODAY 8Result Comment: [facility]#[id number] Medications acetaminophen 500 mg oral capsule 2 [...] 0 Refills, Maintenance, 02/28/21 16:31:00 EDT, [place], [facility], Partial fill upon patient request [...] 22:35:00 EST, Route to Pharmacy Electronically, [facility]/pharmacy #2024, Partial fill upon patient request [...] tablet, 2 Refills, Maintenance, 02/27/23 7:25:00 EDT, [facility] STORE 37936, 157, cm, 12/08/22 14:27:00 EDT, Height, 145, kg, 08/29/22 20:13:00 EST, Dry... Start Date: 02/27/23 Status: Ordered levothyroxine 150 mcg (0.15 mg) oral tablet 1 tablet = 150 mcg, By Mouth, Daily, # 90 tablet, 0 Refills, Maintenance, 07/15/23 17:38:00 EST, Tablet, [facility]/pharmacy #2024, Partial fill upon patient request [...] Refills, Maintenance, 07/28/23 10:21:00 EST, [facility], 157.5, cm, 07/13/23 9:57:00 EST, Height, 145.9, [...] tablet, 0 Refills, Maintenance, 07/02/23 16:52:00 EST, [facility]/pharmacy #5, 157.5, cm, 06/26/23 10:22:00 EST, Height, [...] Code MRI Safety Implantable Status Assigning Authority [id number] 731 Unknown [id number] Unknown 08/26/24 Unknown Unknown Active GS1 Patient Care team information Care Team Personnel Name: Celestina Trinidad MD Position: [facility] Physician - Primary Care Member Role: PCP Address: Address: [address] [place] [address]- Name: Hemalatha Lucas RN Position: [facility] RN Member Role: Primary Care Nurse Name: Lauren Mack RN Position: [facility] AMB Nurse Member Role: Primary Care Nurse Name: Madelaine Ruiz RN Position: [facility] RN Member Role: Primary Care Nurse Name: Lora Santiago RN Position: [facility] SN RN Member Role: Primary Care Nurse Name: Mayco Ro RN Position: [facility] RN Member Role: Primary Care Nurse Name: Heydi Potts RN Position: [facility] SN RN Member Role: Primary Care Nurse Name: Janice Romano LPN Position: [facility] RN Member Role: Primary Care Nurse Name: Nadya Low RN Position: [facility] RN Member Role: Primary Care Nurse Name: Mirna Greenfield RN Position: [facility] RN Member Role: Primary Care Nurse Name: Nessa Bonilla RN Position: [facility] Dumb Waiter Operator Member Role: Primary Care Nurse Care Team Related Persons Name: DINESH SARGENT Address: home [address] [place] [address] Name: BON DE Address: home [address] [address]
--- OUTSIDE RECORDS SUMMARY | 2024-06-24 14:27 | XMS_ITS | Continuity of Care Document ---
Author Organization [facility] Address [address] [place] [address]- Care Team Providers Care Steam Box Tender Name Role Phone Vivi HENNING, Celestina Givens Primary Care Physician [place] [facility] [place] 09[place]11/23 - 10/11/23 [facility] [address] [place] [address]- Allergies, Adverse Reactions, Alerts No Known Allergies [...] 08/21/22 Given tetanus/diphtheria/pertussis, acel(Tdap) 7 08/13/12 Given LPQU-NyO-4mKSO 12y+ bivalent booster vax 06/14/22 Recorded SARS-CoV-2 mRNA (zeudfhd-junq-gkbzv) vax 02/14/22 Recorded SARS-CoV-2 (COVID-19) mRNA BNT-162b2 vac 05/06/21 Given SARS-CoV-2 (COVID-19) mRNA BNT-162b2 vac 11/04/20 Recorded SARS-CoV-2 (COVID-19) mRNA BNT-162b2 vac 10/14/20 Recorded pneumococcal 23-valent vaccine 8 04/07/19 Given 1Result Comment: screening negative 2Result Comment: [facility]# [id number] 3Result Comment: [05/25/2018] [facility] lot number [id number] exp 01/26/2019 [facility] 07029-933-76 4Result Comment: [08/20/2017] [facility] [id number] 5Admin Note: VIM dated 01/29/12 GIVEN TODAY 6Result Comment: [facility]# [id number] 7Admin Note: VIM dated 08/22/11 GIVEN TODAY 8Result Comment: [facility]#[id number] Medications acetaminophen 500 mg oral capsule 2 [...] Refills, Maintenance, 09/02/23 8:08:00 EST, [facility], 25, APPLY TO AFFECTED AREA 4 TIMES [...] 0 Refills, Maintenance, 02/28/21 16:31:00 EDT, [place], [facility], Partial fill upon patient request [...] 07/31/23 19:01:00 EST, Route to Pharmacy Electronically, [facility]/pharmacy #2024, 157.5, cm, 07/13/23 9:57:00 [...] 2 Refills, Maintenance, 02/27/23 7:25:00 EDT, [facility] STORE 41063, 157, cm, 12/08/22 14:27:00 EDT, Height, 145, kg, 08/29/22 20:13:00 EST, Dry... Start Date: 02/27/23 Status: Ordered levothyroxine 150 mcg (0.15 mg) oral tablet 1 tablet = 150 mcg, By Mouth, Daily, # 90 tablet, 0 Refills, Maintenance, 07/15/23 17:38:00 EST, Tablet, [facility]/pharmacy [...] tablet, 0 Refills, Maintenance, 10/08/23 17:51:00 EDT, [facility]/pharmacy #2024, [...] Code MRI Safety Implantable Status Assigning Authority [id number] 731 Unknown [id number] Unknown 08/26/24 Unknown Unknown Active GS1 Patient Care team information Care Team Personnel Name: Celestina Trinidad MD Position: [facility] Physician - Primary Care Member Role: PCP Address: Address: [address] [place] [address]- Name: Hemalatha Lucas RN Position: [facility] RN Member Role: Primary Care Nurse Name: Lauren Mack RN Position: [facility] AMB Nurse Member Role: Primary Care Nurse Name: Madelaine Ruiz RN Position: [facility] RN Member Role: Primary Care Nurse Name: Lora Santiago RN Position: [facility] SN RN Member Role: Primary Care Nurse Name: Mayco Ro RN Position: [facility] RN Member Role: Primary Care Nurse Name: Heydi Potts RN Position: [facility] SN RN Member Role: Primary Care Nurse Name: Janice Romano LPN Position: [facility] RN Member Role: Primary Care Nurse Name: Nadya Low RN Position: [facility] RN Member Role: Primary Care Nurse Name: Mirna Greenfield RN Position: [facility] RN Member Role: Primary Care Nurse Name: Nessa Bonilla RN Position: [facility] Ground Host/Hostess Member Role: Primary Care Nurse Care Team Related Persons Name: DINESH SARGENT Address: home [address] [place] [address] Name: BON DE Address: home [address] [place] [address]
--- OUTSIDE RECORDS SUMMARY | 2024-06-24 14:27 | XMS_ITS | Continuity of Care Document ---
Author Organization [facility] Address [address] [place] [address]- Care Team Providers Care Vocational Director Name Role Phone Vivi HENNING, Celestina Givens Primary Care Physician Encounter [facility] Date(s): 12/04/23 - 01/03/24 [facility] [address] [place] [address]- Allergies, Adverse Reactions, Alerts No Known Allergies [...] 08/21/22 Given tetanus/diphtheria/pertussis, acel(Tdap) 7 08/13/12 Given XOTC-VgQ-1sJXS 12y+ bivalent booster vax 06/14/22 Recorded SARS-CoV-2 mRNA (usowrys-wndd-msqcm) vax 02/14/22 Recorded SARS-CoV-2 (COVID-19) mRNA BNT-162b2 vac 05/06/21 Given SARS-CoV-2 (COVID-19) mRNA BNT-162b2 vac 11/04/20 Recorded SARS-CoV-2 (COVID-19) mRNA BNT-162b2 vac 10/14/20 Recorded pneumococcal 23-valent vaccine 8 04/07/19 Given 1Result Comment: screening negative 2Result Comment: [facility]# [id number] 3Result Comment: [05/25/2018] [facility] lot number [id number] exp 01/26/2019 [facility] 91498-616-60 4Result Comment: [08/20/2017] [facility] [id number] 5Admin Note: VIM dated 01/29/12 GIVEN TODAY 6Result Comment: [facility]# [id number] 7Admin Note: VIM dated 08/22/11 GIVEN TODAY 8Result Comment: [facility]#[id number] Medications acetaminophen 500 mg oral capsule 2 [...] Gm, 0 Refills, Maintenance, 02/28/21 16:31:00 EDT, [place], [facility]/pharmacy #2024, Partial fill upon patient [...] tablet, 1 Refills, Maintenance, 12/28/23 16:17:00 EDT, [facility] STORE 27901, 157.5, cm, 10/18/23 15:15:00 EDT, Height, 145.9, kg, 05/22/23 7:39:00 EDT, Dry Weight Start Date: 12/28/23 Status: Ordered meclizine 25 mg oral tablet See Instructions, PRN Dizziness, 1 tablet By Mouth 3 times a day, # 30 tablet, 0 Refills, Maintenance, 02/27/23 10:43:00 EDT, [facility]/pharmacy #2025, Partial fill upon [...] 10/24/23 11:39:00 EDT, ER Tablet, [facility]/pharmacy #2025, Partial [...] Code MRI Safety Implantable Status Assigning Authority [id number] 731 Unknown [id number] Unknown 08/26/24 Unknown Unknown Active GS1 Patient Care team information Care Team Personnel Name: Celestina Trinidad MD Position: [facility] Physician - Primary Care Member Role: PCP Address: Address: [address] [place] [address] Name: Hemalatha Lucas RN Position: [facility] [...] Bonilla RN Position: [facility] Vehicle Body Sander Member Role: Primary Care Nurse Care Team Related Persons Name: DINESH SARGENT Address: home [address] [place] [address] Name: BON DE Address: home [address] [address]
--- OUTSIDE RECORDS SUMMARY | 2024-06-24 14:27 | XMS_ITS | Continuity of Care Document ---
Author Organization [facility] em Address Unknown Care Team Providers Care Social Science Instructor Name Role Phone Celestina Trinidad MD Primary Care Physician [place] [facility] [place]23 [place] 07/08/23 [facility] Attending Physician: Calixto Beltran Admitting Physician: Calixto Beltran Referring Physician: Calixto Beltran Allergies, Adverse Reactions, Alerts No Known Allergies Immunizations Given and Recorded Vaccine Date Status Refusal Reason tetanus/diphtheria/pertussis, acel(Tdap) 1 08/21/22 Given tetanus/diphtheria/pertussis, acel(Tdap) 2 08/13/12 Given VETN-UeM-4kROX 12y+ bivalent booster vax 06/14/22 Recorded influenza [...] inactivated 6 07/31/12 [facility] SARS-CoV-2 mRNA (xpmtwdd-vdhn-ikrza) vax 02/14/22 Recorded SARS-CoV-2 (COVID-19) mRNA BNT-162b2 vac 05/06/21 Given SARS-CoV-2 (COVID-19) mRNA BNT-162b2 vac 11/04/20 Recorded SARS-CoV-2 (COVID-19) mRNA BNT-162b2 vac 10/14/20 Recorded pneumococcal 23-valent vaccine 7 04/07/19 Given 1Result Comment: [facility]# [id number] 2Admin Note: VIM dated 08/22/11 GIVEN TODAY 3Result Comment: [facility]# [id number] 4Result Comment: [05/25/2018] [facility] lot number [id number] exp 01/26/2019 [facility] [id number] 5Result Comment: [08/20/2017] [facility] [id number] 6Admin Note: VIM dated 01/29/12 GIVEN TODAY 7Result Comment: [facility]#[id number] Medications acetaminophen 500 mg oral capsule 2 [...] Route to Pharmacy Electronically, [facility]/pharmacy #2025, Partial fill upon patient request if the presc... Start Date: 05/17/23 Stop Date: 05/17/24 Status: Ordered diclofenac 1% topical gel See Instructions, APPLY TOPICALLY 4 TIMES A DAY, # 100 Gm, 1 Refills, Maintenance, 06/05/23 10:25:00 EST, [facility]/pharmacy #2024, 50, APPLY TOPICALLY 4 TIMES A DAY, 157.5, cm, 05/22/23 7:39:00 EDT, Height, 145.9, kg, 05/22/23 7:39:00 EDT, Dry Weight Start Date: 06/05/23 Status: Ordered Flonase 50 mcg/inh nasal spray See Instructions, 2 sprays Nares twice daily x 1 week, then once daily x 1-2 weeks until symptoms improve, # 16 Gm, 0 Refills, Maintenance, 02/28/21 16:31:00 EDT, [place], [facility]/pharmacy #2025, Partial fill upon patient request if the prescription is for... Start Date: 02/28/21 Status: Ordered FLUoxetine 10 mg oral capsule 10 mg, 1, capsule, By Mouth, Daily, to be taken with 20mg capsules to equal 30mg daily, # 90 capsule, Refills 1, Tot. Refills 1, Maintenance, 04/03/23 11:25:00 EDT, Route to Pharmacy Electronically, [facility]/pharmacy #2025, Partial fill upon patient reques... Start Date: 04/03/23 Status: Ordered FLUoxetine 20 mg oral capsule 1, capsule, By Mouth, Daily, # 90 capsule, Refills 1, Tot. Refills 1, Maintenance, 04/03/23 11:23:00 EDT, Route to Pharmacy Electronically, [facility]/pharmacy #2025, 157, cm, 03/14/23 11:02:00 EDT, Height,145, [...] 02/27/23 7:25:00 EDT, [facility] STORE 68841, 157, cm, 12/08/22 14:27:00 EDT, Height, 145, [...] may filll this prescription for fewer pills. [facility] # 20 tablet, Refills 0, Tot. Refills 0, Maintenance, Pain , Severe, 05/22/23 9:10:00 EDT, Route to Pharmacy Electronically, [facility]/pharmacy... Start Date: 05/22/23 Status: Ordered Splint See [...] to severe pain. 28 days. ariel merly holliday, # 81 tablet, 0 Refills, [...] Code MRI Safety Implantable Status Assigning Authority [id number] 731 Unknown [id number] Unknown 08/26/24 Unknown Unknown Active GS1 Patient Care team information Care Team Personnel Name: Celestina Trinidad MD Position: [facility] Physician - Primary Care Member Role: PCP Address: Address: [address] [place] [address] Name: Hemalatha Lucas RN [facility] RN Position: [facility] Hospital Member Role: Primary Care Nurse Care Team Related Persons Name: ROSETTA DINESH Address: home [address] [address] Name: BON DE Address: home [address] [place] [address]
--- OUTSIDE RECORDS SUMMARY | 2024-06-24 14:27 | XMS_ITS | Continuity of Care Document ---
Author Organization [facility] Address [address] [place] [address]- Care Team Providers Care Medical Researcher Name Role Phone Vivi HENNING, Celestina Givens Primary Care Physician Encounter [facility] Date(s): 02/22/24 - 03/23/24 [facility] [address] [place] [address]- Allergies, Adverse Reactions, Alerts No Known Allergies [...] 08/21/22 Given tetanus/diphtheria/pertussis, acel(Tdap) 7 08/13/12 Given TONS-SoD-9uDAL 12y+ bivalent booster vax 06/14/22 Recorded SARS-CoV-2 mRNA (xtlolmu-jsdd-iavmr) vax 02/14/22 Recorded SARS-CoV-2 (COVID-19) mRNA BNT-162b2 vac 05/06/21 Given SARS-CoV-2 (COVID-19) mRNA BNT-162b2 vac 11/04/20 Recorded SARS-CoV-2 (COVID-19) mRNA BNT-162b2 vac 10/14/20 Recorded pneumococcal 23-valent vaccine 8 04/07/19 Given 1Result Comment: screening negative 2Result Comment: [facility]# [id number] 3Result Comment: [05/25/2018] [facility] lot number [id number] exp 01/26/2019 [facility] [id number] 4Result Comment: [08/20/2017] [facility] [id number] 5Admin Note: VIM dated 01/29/12 GIVEN TODAY 6Result Comment: [facility]# [id number] 7Admin Note: VIM dated 08/22/11 GIVEN TODAY 8Result Comment: [facility]#[id number] Medications acetaminophen 500 mg oral capsule 2 [...] 1 Refills, Soft Stop, 12/06/23 17:28:00 EDT, [facility]/pharmacy #5, Partial fill upon [...] 05/17/24 16:46:00 EDT, Route to Pharmacy Electronically, [facility] [...] Refills, Maintenance, 02/01/24 13:44:00 EDT, [facility], 30, APPLY TO AFFECTED AREA 4 TIMES [...] Gm, 0 Refills, Maintenance, 02/28/21 16:31:00 EDT, [place], [facility]/pharmacy #5, Partial fill upon patient request if the prescription is for... Start Date: 02/28/21 Status: Ordered FLUoxetine 10 mg oral capsule 1, capsule, By Mouth, Daily, INSTR:TO BE TAKEN WITH 20MG CAPSULES TO EQUAL 30MG DAILY, # 90 capsule, Refills 1, Maintenance, 01/25/24 9:11:00 EDT, Route to Pharmacy Electronically, [facility], 157.5, cm, 01/22/24 10:31:00 EDT, Height, 145.9, [...] Refills, Maintenance, 12/28/23 16:17:00 EDT, [facility], 157.5, cm, 10/18/23 15:15:00 EDT, Height, 145.9, [...] tablet, 5 Refills, Maintenance, 10/08/23 17:05:00 EDT, [facility]/pharmacy #2025, 157.5, cm, 07/13/23 9:57:00 EST, Height, 145.9, kg, 237:39:00 EDT, Dry Weight Start Date: 10/08/23 Status: Ordered metFORMIN 500 mg oral tablet, extended release 1 tablet = 500 mg, By Mouth, Daily, # 90 tablet, 1 Refills, Maintenance, 01/22/24 11:02:00 EDT, [place] Tablet, [facility]/pharmacy #2025, Partial fill upon [...] Code MRI Safety Implantable Status Assigning Authority [id number] 731 Unknown [id number] Unknown 08/26/24 Unknown Unknown Active GS1 Patient Care team information Care Team Personnel Name: Celestina Trinidad MD Position: [facility] Physician - Primary Care Member Role: PCP Address: Address: [address] [place] [address] Name: Hemalatha Lucas RN Position: [facility] RN Member Role: Primary Care Nurse Name: Lauren Mack RN Position: [facility] Nurse Member Role: Primary Care Nurse Name: Madelaine Ruiz RN Position: [facility] RN Member Role: Primary Care Nurse Name: Lora Santiago RN Position: [facility] RN Member Role: Primary Care Nurse Name: Mayco Ro RN Position: [facility] RN Member Role: Primary Care Nurse Name: Heydi Potts RN Position: [facility] SN [...] Nessa Bonilla RN Position: [facility] Soil Technician Member Role: Primary Care Nurse Care Team Related Persons Name: DINESH SARGENT Address: home [address] [place] [address] Name: BON DE Address: home [address] [place] [address]
--- OUTSIDE RECORDS SUMMARY | 2024-06-24 14:27 | XMS_ITS | Continuity of Care Document ---
Author Organization [facility] Address [address] [place] [address]- Care Team Providers Care Ship'S Officer Name Role Phone Noe AHN, Mónica Graham Primary Care Physician [facility]counter [facility] Date(s): 04/06/21 - 05/06/21 [facility] [address], [place] [address] Allergies, Adverse Reactions, Alerts Substance [...] 1Result Comment: [facility]# [id number] 2Result Comment: [05/25/2018] [employer] lot number [id number] exp 01/26/2019 [facility] [id number] 3Result Comment: [08/20/2017] [facility] [id number] 4Admin Note: VIM dated 01/29/12 GIVEN TODAY 5Result Comment: [facility]#[id number] 6Admin Note: VIM dated 08/22/11 GIVEN TODAY [...] 10/27/20 14:48:00 EDT, Route to Pharmacy Electronically, [id number], [facility]/pharmacy #2024, 160.02, cm, 10/19/20 11:04:00 EDT, Height, 156... Start Date: 10/27/20 Status: Ordered betamethasone-clotrimazole 0.05%-1% topical cream 1 application, Topically, 2 times a day, # 45 Gm, 0 Refills, Maintenance, 12/27/20 14:13:00 EDT, Cream, [facility]/pharmacy #2024, Partial fill upon patient [...] Gm, 0 Refills, Maintenance, 02/28/21 16:31:00 EDT, [place], [facility]/pharmacy #202, Partial fill upon patient request if the prescription is for... Start Date: 02/28/21 Status: Ordered FLUoxetine 10 mg oral capsule 10 mg, 1, capsule, By Mouth, Daily, Take with 20mg capsule for total of 30mg daily, # 90 capsule, Refills 1, Tot. Refills 1, Maintenance, 05/04/21 16:44:00 EDT, Route to Pharmacy Electronically, [facility]/pharmacy #202, Partial fill upon patient request if... Start Date: 05/04/21 Status: Ordered FLUoxetine 20 mg oral capsule 20 mg, 1, capsule, By Mouth, Daily, Take with Fluoxetine 10mg for a total of 30mg, # 90 capsule, Refills 1, Tot. Refills 1, Maintenance, 05/04/21 16:44:00 EDT, Route to Pharmacy Electronically, [facility]/pharmacy #202, replacing 10mg dose, 160.02, cm, 080... Start Date: 05/04/21 Status: Ordered levothyroxine 0.137 mg oral tablet See Instructions, Take 1 tablet by mouth on days 1-6, then take 2 tablets by mouth on day 7, # 121 tablet, 5 Refills, Maintenance, 12/07/20 9:46:00 EDT, [facility]/pharmacy #202, 160.02, cm, 10/19/20 11:04:00 EDT, Height, 156.81, kg, 10/19/20 11:04:00 EDT,... Start Date: 12/07/20 Status: Ordered meloxicam 15 mg oral tablet 1 tablet, By Mouth, Daily, WITH FOOD., # 30 tablet, 1 Refills, [facility] STORE 29364, 160.02, cm, 02/28/21 15:45:00 EDT, Height, 143, [...] 08/04/19 17:54:00 EST, Route to Pharmacy Electronically, [facility]/pharmacy #2025, 161, cm, 08/04/19 14:44:00 EST, Height Start Date: 08/04/19 Stop Date: 08/18/19 Status: Ordered traMADol 50 mg oral tablet 2 tablet = 100 mg, By Mouth, Every 12 hours, as needed for pain masspat checked, # 120 tablet, 2 Refills, Maintenance, 02/10/21 12:37:00 EDT, [facility]/pharmacy #202, 160.02, cm, 01/04/21 10:42:00 EDT, Height, [...]
--- OUTSIDE RECORDS SUMMARY | 2024-06-24 14:27 | XMS_ITS | Continuity of Care Document ---
Author Organization [facility] Address [address] [place] [address] Dr [address] [place] [address]- Care Team Providers Care Power Wood Sawyer Name Role Phone Vivi HENNING, Celestina Givens Primary Care Physician [place] [facility] [place] 09[place]05[place]22 - 10/05/22 [facility] [address] [place] [address]- Attending Physician: Calixto Beltran Admitting Physician: AdmCalixto hernandez Referring Physician: AdmtrCalixto Allergies, Adverse Reactions, Alerts No Known Allergies Immunizations Given and Recorded Vaccine Date Status Refusal Reason tetanus/diphtheria/pertussis, acel(Tdap) 1 08/21/22 Given tetanus/diphtheria/pertussis, acel(Tdap) 2 08/13/12 Given [id number] 12y+ bivalent booster vax 06/14/22 Recorded influenza [...] inactivated 6 07/31/12 Gi hali SARS-CoV-2 mRNA (wgihxpm-hdxs-xcwzv) vax 02/14/22 Recorded SARS-CoV-2 (COVID-19) mRNA BNT-162b2 vac 05/06/21 Given SARS-CoV-2 (COVID-19) mRNA BNT-162b2 vac 11/04/20 Recorded SARS-CoV-2 (COVID-19) mRNA BNT-162b2 vac 10/14/20 Recorded pneumococcal 23-valent vaccine 7 04/07/19 Given 1Result Comment: [facility]# [id number] 2Admin Note: VIM dated 08/22/11 GIVEN TODAY 3Result Comment: [facility]# [id number] 4Result Comment: [05/25/2018] [employer] lot number [id number] exp 01/26/2019 [facility] [id number] 5Result Comment: [08/20/2017] [facility] [id number] 6Admin Note: VIM dated 01/29/12 GIVEN TODAY 7Result Comment: [facility]#[id number] Medications acetaminophen 500 mg oral capsule 2 [...] Stop, 04/10/2215:14:00 EDT, Route to Pharmacy Electronically, [id number], [facility]/pharmacy #2025, 158, cm, 04/10/22 14:56:00 EDT, Height, 143,... Start Date: 04/10/22 Status: Ordered amLODIPine 5 mg oral tablet 1 tablet, By Mouth, Daily, # 30 tablet, 5 Refills, Maintenance, 08/24/22 20:08:00 EST, [facility], 159, cm, 08/21/22 11:38:00 EST, Height, 143, kg, 06/08/21 10:42:00 EDT, Dry Weight Start Date: 08/24/22 Status: Ordered Augmentin 875 mg-125 mg oral tablet 1 tablet, By Mouth, Every 12 hours, for 6 week(s), # 84 tablet, 0 Refills, Acute 10/12/22 13:28:00 EDT, 08/31/22 13:28:00 EST, Tablet, [facility]/pharmacy #2024, Partial fill [...] 11:06:00 EST, Aerosol, Route to Pharmacy Electronically, [id number]... Start Date: 09/12/22 Status: Ordered cilostazol 50 mg oral tablet 1 tablet = 50 mg, By Mouth, Daily, # 180 tablet, 0 Refills, Maintenance, 09/02/22 10:35:00 EST, Tablet, [facility]/pharmacy #2024, Partial fill [...] Gm, 0 Refills, Maintenance, 02/28/21 16:31:00 EDT, [place], [facility]/pharmacy #2024, Partial fill upon patient request if the prescription is for... Start Date: 02/28/21 Status: Ordered fluconazole 200 mg oral tablet 2 tablet = 400 mg, By Mouth, Daily, for 6 week(s), # 84 tablet, 0 Refills, Acute 10/12/22 13:28:00 EDT, 08/31/22 13:28:00 EST, Tablet, [facility]/pharmacy #202, Partial fill upon patient request if the prescription is for a schedule II opioid drug., 157, cm... Start Date: 08/31/22 Stop Date: 10/12/22 Status: Ordered FLUoxetine 20 mg oral capsule See Instructions, TAKE 1 CAPSULE BY MOUTH EVERY DAY, # 90 capsule, Refills 1, Maintenance, 06/13/2215:26:00 EST, Instructions Replace Required Details, Route to Pharmacy Electronically, [facility], 158, cm, 06/09/22 11:21:00 EST, Height, 143, kg... Start Date: 06/13/22 Status: Ordered furosemide 20 mg oral tablet 1, tablet, By Mouth, Daily, MAY REPEAT IF NEEDED IN 2 HOURS, # 30 tablet, Refills 0, Maintenance, 09/26/22 15:09:00 EST, Route to Pharmacy Electronically, [facility], 157, cm, 09/13/22 15:58:00 EST, Height, 145, [...] Refills, Maintenance, 05/11/21 13:11:00 EDT, [facility]/pharmacy #2024, Partial fill upon patient request if the prescriptionis for a schedule II opioid drug., 160.02, cm, 10/0... Start Date: 05/11/21 Status: Ordered meloxicam 15 mg oral tablet See Instructions, TAKE 1 TABLET BY MOUTH DAILY WITH FOOD. LABS NEEDED FOR FURTHER REFILLS, # 30 tablet, 3 Refills, Maintenance, 07/17/22 19:56:00 EST, [facility]/pharmacy #2024, 158, cm, 07/13/22 13:46:00 EST, Height, [...] Route to Pharmacy Electronically, [facility]/pharmacy #2024, Partialfill upon patient request if the prescription is fo... Start Date: 09/05/22 Stop Date: 09/12/22 Status: Ordered traMADol 50 mg oral tablet See Instructions, 2 tab po qam and one tab po q pm prn moderate to severe pain. 28 days. mass pat ok, # 81 tablet, 0 Refills, Maintenance, 09/21/22 16:44:00 EST, [facility]/pharmacy #2024, 157, cm, 09/13/2314:58:00 EST, Height, 145, kg, 08/29/22 20:13:00 E... Start Date: 09/21/22 Status: Ordered zolpidem 10 mg oral tablet 1 tablet = 10 mg, By Mouth, Daily at bedtime, PRN for sleep, for 30 days, masspat check may fill less, # 30 tablet, 0 Refills, Acute 11/01/22 17:14:00 EDT, 10/02/22 17:14:00 EST, Tablet, [facility]/pharmacy#2024, 157, cm, 09/13/22 15:58:00 EST, Height, 145... Start Date: 10/02/22 Stop Date: 11/01/22 Status: Ordered zolpidem 10 mg oral tablet 1 tablet = 10 mg, By Mouth, Daily at bedtime, PRN for sleep, for 30 days, masspat check may fill less, # 30 tablet, 0 Refills, Acute 11/20/22 16:47:00 EDT, 10/21/22 16:47:00 EDT, Tablet, [facility]/pharmacy#2024, 157, cm, 09/13/22 15:58:00 EST, Height, 145... [...] Physician Member Role: PCP Address: Address: [address] [place] [address] Name: Hemalatha Lucas RN Position: [facility] RN Member Role: Primary Care Nurse Name: Lauren Mack RN Position: [facility] Nurse Member Role: Primary [...] Bonilla RN Position: [facility] Hospital Winding Department Supervisor Member Role: Primary Care Nurse Care Team Related Persons Name: DINESH SARGENT Address: home [address] [place] [address] Name: BON DE Address: home [address] [address]
--- OUTSIDE RECORDS SUMMARY | 2024-06-24 14:27 | XMS_ITS | Continuity of Care Document ---
Author Organization [facility] Address [address] [place] [address]- Care Team Providers Care Demolition Specialist Name Role Phone Vivi HENNING, Celestina Givens Primary Care Physician Encounter [facility] Date(s): 09/22/22 - 10/22/22 [facility] [address] [place] [address]- Allergies, Adverse Reactions, Alerts No Known Allergies Immunizations Given and Recorded Vaccine Date Status Refusal Reason tetanus/diphtheria/pertussis, acel(Tdap) 1 08/21/22 Given tetanus/diphtheria/pertussis, acel(Tdap) 2 08/13/12 Given DJLA-XxB-1vVQI 12y+ bivalent booster vax 06/14/22 Recorded influenza virus vaccine, inactivated 06/08/22 Give n influenza virus vaccine, inactivated 05/06/21 Give n influenza virus vaccine, inactivated 06/08/20 Give n influenza virus vaccine, inactivated 3 05/27/19 Gi hail influenza virus vaccine, inactivated 4 05/25/18 Gi hali influenza virus vaccine, inactivated 5 08/20/17 Gi hali influenza virus vaccine, inactivated 05/17/16 Give n influenza virus vaccine, inactivated 08/11/15 Give n influenza virus vaccine, inactivated 6 07/31/12 Gi hali SARS-CoV-2 mRNA (pqrjiom-dmhs-ovxlk) vax 02/14/22 Recorded SARS-CoV-2 (COVID-19) mRNA BNT-162b2 vac 05/06/21 Given SARS-CoV-2 (COVID-19) mRNA BNT-162b2 vac 11/04/20 Recorded SARS-CoV-2 (COVID-19) mRNA BNT-162b2 vac 10/14/20 Recorded pneumococcal 23-valent vaccine 7 04/07/19 Given 1Result Comment: [facility]# [id number] 2Admin Note: VIM dated 08/22/11 GIVEN TODAY 3Result Comment: [facility]# [id number] 4Result Comment: [05/25/2018] [employer] lot number [id number] exp 01/26/2019 [facility] [id number] 5Result Comment: [08/20/2017] [facility] [id number] 6Admin Note: VIM dated 01/29/12 GIVEN TODAY 7Result Comment: [facility]#[id number] Medications acetaminophen 500 mg oral capsule 2 [...] Stop, 04/10/2215:14:00 EDT, Route to Pharmacy Electronically, [id number], [facility]/pharmacy #2025, 158, cm, 04/10/22 14:56:00 EDT, Height, 143,... Start Date: 04/10/22 Status: Ordered amLODIPine 5 mg oral tablet 1 tablet, By Mouth, Daily, # 30 tablet, 5 Refills, Maintenance, 08/24/22 20:08:00 EST, [facility], 159, cm, 08/21/22 11:38:00 EST, Height, 143, kg, 01/04/21 10:42:00 EDT, Dry Weight Start Date: 08/24/22 Status: Ordered budesonide-formoterol 80 mcg-4.5 mcg/inh inhalation aerosol with adapter 2, puffs, Inhalation, 2 times a day, PRN, use with spacer chamber, rinse mouth and throat after use, # 10.2 Gm, Refills 5, Tot. Refills 5, Maintenance, 09/12/22 11:06:00 EST, Aerosol, Route to Pharmacy Electronically, [id number]... Start Date: 09/12/22 Status: Ordered cilostazol 50 mg oral tablet 1 tablet = 50 mg, By Mouth, Daily, # 180 tablet, 0 Refills, Maintenance, 09/02/22 10:35:00 EST, Tablet, [facility]/pharmacy #2024, Partial [...] 08/31/22 13:30:00 EST, Route to Pharmacy Electronically, [facility]/pharmacy #5, Partial fill upon patient request if the p... Start Date: 08/31/22 Status: Ordered Flonase 50 mcg/inh nasal spray See Instructions, 2 sprays Nares twice daily x 1 week, then once daily x 1-2 weeks until symptoms improve, # 16 Gm, 0 Refills, Maintenance, 02/28/21 16:31:00 EDT, [place], [facility]/pharmacy #2025, Partial fill upon patient request if the prescription is for... Start Date: 02/28/21 Status: Ordered FLUoxetine 20 mg oral capsule See Instructions, TAKE 1 CAPSULE BY MOUTH EVERY DAY, # 90 capsule, Refills 1, Maintenance, 06/13/2215:26:00 EST, Instructions Replace Required Details, Route to Pharmacy Electronically, [facility], 158, cm, 06/09/22 11:21:00 EST, Height, 143, kg... Start Date: 06/13/22 Status: Ordered furosemide 20 mg oral tablet 1, tablet, By Mouth, Daily, MAY REPEAT IF NEEDED IN 2 HOURS, # 30 tablet, Refills 0, Maintenance, 10/18/22 21:31:00 EDT, Route to Pharmacy Electronically, [facility], 157, cm, 09/13/22 15:58:00 EST, Height, 145, kg, 08/29/22 20:13:00 EST, Dry Weight Start Date: 10/18/22 Status: Ordered gabapentin 300 mg oral capsule 600 mg, 2, capsule, By Mouth, 3 times a day, # 180 capsule, Refills 3, Tot. Refills 3, Maintenance,08/25/22 22:35:00 EST, Route to Pharmacy Electronically, [facility]/pharmacy #5, Partial fill upon patient request if the prescription is for a schedule II... Start Date: 08/25/22 Status: Ordered levothyroxine 0.137 mg oral tablet 1 tablet = 137 mcg, By Mouth, Daily, 1 tab on days 1-6, take 2 tabs on day 7, # 102 tablet, 1 Refills, Maintenance, 07/03/22 14:41:00 EST, Tablet, [facility]/pharmacy #202, Partial fill upon patient request if the prescription is for a schedule II opioid dr... Start Date: 07/03/22 Status: Ordered meclizine 25 mg oral tablet See Instructions, PRN Dizziness, 1 tablet By Mouth 3 times a day, # 30 tablet, 0 Refills, Maintenance, 05/11/21 13:11:00 EDT, [facility]/pharmacy #2024, Partial fill upon patient request if the prescriptionis for a schedule II opioid drug., 160.02, cm, 10/0... Start Date: 05/11/21 Status: Ordered meloxicam 15 mg oral tablet See Instructions, TAKE 1 TABLET BY MOUTH DAILY WITH FOOD. LABS NEEDED FOR FURTHER REFILLS, # 30 tablet, 3 Refills, Maintenance, 10/18/22 21:31:00 EDT, [facility] STORE 609[facility], 157, cm, 09/13/22 15:58:00 EST,Height, 145, kg, [...] 09/05/22 16:29:00 EST, Route to Pharmacy Electronically, [facility]/pharmacy #2024, Partialfill upon patient [...] Trinidad MD Position: [facility] Primary Care Physician Member Role: PCP Address: Address: [address] [place] [id number] Name: Hemalatha Lucas RN Position: [facility] RN Member Role: Primary Care Nurse Name: Lauren Mack RN Position: [facility] Nurse Member Role: Primary Care Nurse Name: Madelaine Ruiz RN Position: [facility] RN Member Role: Primary Care Nurse Name: Lora Santiago RN Position: [facility] SN RN Member Role: Primary Care Nurse Name: Mayco Ro RN Position: [facility] RN Member Role: Primary Care Nurse Name: Heydi Potts RN Position: [facility] RN [...] Nessa Bonilla RN Position: [facility] Coffee Shop Manager Member Role: Primary Care Nurse Care Team Related Persons Name: DINESH SARGENT Address: home [address] [place] [address] Name: BON DE Address: home [address] [address]
--- OUTSIDE RECORDS SUMMARY | 2024-06-24 14:27 | XMS_ITS | Continuity of Care Document ---
Author Organization [facility] Address [address] [place] [address]- Care Team Providers Care Small Package And Bundle Sorter Clerk Name Role Phone Vivi HENNING, Celestina Givens Primary Care Physician [facility] Date(s): 05/08/24 - 06/07/24 [facility] [address] [place] [address]- Allergies, Adverse Reactions, Alerts No Known Allergies [...] 08/21/22 Given tetanus/diphtheria/pertussis, acel(Tdap) 7 08/13/12 Given YBWU-QfO-7iCBF 12y+ bivalent booster vax 06/14/22 Recorded SARS-CoV-2 mRNA (horvftx-mmdh-hszsf) vax 02/14/22 Recorded SARS-CoV-2 (COVID-19) mRNA BNT-162b2 vac 05/06/21 Given SARS-CoV-2 (COVID-19) mRNA BNT-162b2 vac 11/04/20 Recorded SARS-CoV-2 (COVID-19) mRNA BNT-162b2 vac 10/14/20 Recorded pneumococcal 23-valent vaccine 8 04/07/19 Given 1Result Comment: screening negative 2Result Comment: [facility]# [id number] 3Result Comment: [05/25/2018] [facility] lot number [id number] exp 01/26/2019 [facility] [id number] 4Result Comment: [08/20/2017] [facility] [id number] 5Admin Note: VIM dated 01/29/12 GIVEN TODAY 6Result Comment: [facility]# [id number] 7Admin Note: VIM dated 08/22/11 GIVEN TODAY 8Result Comment: [facility]#[id number] Medications acetaminophen 500 mg oral capsule 2 [...] 1 Refills, Soft Stop, 12/06/23 17:28:00 EDT, [facility]/pharmacy #5, Partial fill upon patient request [...] 05/17/24 16:46:00 EDT, Route to Pharmacy Electronically, [facility]/pharmacy #2024, Partial fill upon patient request if the prescription is for a... Start Date: 05/17/24 Status: Ordered diclofenac 1% topical gel See Instructions, APPLY TO AFFECTED AREA 4 TIMES A DAY. NOT COVERED, # 100 Gm, 1 Refills, Maintenance, 04/22/24 15:15:00 EDT, [facility]/pharmacy #2024, 30, APPLY TO AFFECTED AREA [...] Gm, 0 Refills, Maintenance, 02/28/21 16:31:00 EDT, [place], [facility]/pharmacy #2025, Partial fill upon patient request if the prescription is for... Start Date: 02/28/21 Status: Ordered FLUoxetine 10 mg oral capsule 1, capsule, By Mouth, Daily, INSTR:TO BE TAKEN WITH 20MG CAPSULES TO EQUAL 30MG DAILY, # 90 capsule, Refills 1, Maintenance, 01/25/24 9:11:00 EDT, Route to Pharmacy Electronically, [facility]2928, 157.5, cm, 01/22/24 10:31:00 EDT, Height, 145.9, [...] tablet, 1 Refills, Maintenance, 12/28/23 16:17:00 EDT, [facility] 41690, 157.5, cm, 10/18/23 15:15:00 EDT, Height, 145.9, [...] Code MRI Safety Implantable Status Assigning Authority [id number] Unknown [id number] Unknown 08/26/24 Unknown Unknown Active GS1 Patient Care team information Care Team Personnel Name: Celestina Trinidad MD Position: [facility] Physician - Primary Care Member Role: PCP Address: Address: [address] [place] [address] Name: Hemalatha Lucas RN Position: [facility] RN Member Role: Primary Care Nurse Name: Lauren Mack RN Position: [facility] RN Member Role: Primary Care Nurse Name: Madelaine Ruiz RN Position: [facility] RN Member Role: Primary Care Nurse Name: Lora Santiago RN Position: [facility] SN RN Member Role: Primary Care Nurse Name: Mayco Ro RN Position: [facility] RN Member Role: Primary Care Nurse Name: Heydi Potts RN Position: [facility] SN RN Member Role: Primary Care Nurse Name: Janice Romano LPN Position: [facility] RN Member Role: Primary Care Nurse Name: Nadya Low RN Position: [facility] RN Member Role: Primary Care Nurse Name: Mirna Greenfield RN Position: [facility] RN Member Role: Primary Care Nurse Name: Nessa Bonilla RN Position: [facility] Video Game Tester Member Role: Primary Care Nurse Care Team Related Persons Name: ROSETTA, DINESH Address: home [address] [place] [address] Name: BON DE Address: home [address] [address]
--- NOTE | 2024-06-24 14:28 | MHC.OFFVIS ---
Vital Signs 06/24/24 14:20 06/24/24 14:57 BP 180/83 H 174/98 H Blood Pressure Location Lt brachial Lt brachial Position Sitting Sitting Respiration 19 17 Pulse 81 74 Pulse Source Pulse Oximeter Pulse Oximeter Pulse Oximetry (%) 96 96 Oxygen Delivery Method Room Air Room Air Comment Pre-op Post-op Intake Visit Reasons: RIGHT THERAPEUTIC SIJ INJECTION Allergies No Known Allergies Allergy (Verified 04/24/24 10:44) Physical Exam Vital Signs: Last Vital Signs Pulse 74 06/24/24 14:57 Resp 17 06/24/24 14:57 BP 174/98 H 06/24/24 14:57 Pulse Ox 96 06/24/24 14:57 Oxygen Delivery Method Room Air 06/24/24 14:57 Assessment & Plan Assessment & Plan (1) Sacroiliac joint dysfunction of right side: Code(s): M53.3 - Sacrococcygeal disorders, not elsewhere classified Category: Medical Plan Right therapeutic sacroiliac joint injection Informed consent was explained thoroughly to the patient.? All questions about benefits and risks for the procedure were answered. Patient came to the operating room and was positioned prone on the operating table with the pillow under the pelvis.? The lower back and buttocks of the patient were prepped with ChloraPrep prepped and draped with sterile utility towels.? Sterilely draped C-arm was brought over the operating field and sq picture of patient's pelvis was demonstrated on the screen.? For the right joint tilting C-arm contralateral to the site of the joint the most posterior portion of the joints was superimposed with anterior silhouette of the joint.? Skin was injected in the projection of the joint slightly medial to the location of the joint with 25 gauge 1/2 inch needle using local lidocaine 2% . After that 22 gauge 3 and 1/2 inch needle was driven to the right joint in tunnel vision fashion.? When needle entered the joint capsule injection of the contrast was performed demonstrating intra-articular and minimally periarticular spread of the contrast.? After that 4 cc. of ropivacaine 0.5% mixed with kenalog 40 mg was injected into the right joint.? Upon completion of the injections the needles were removed and pressure were applied.? Sterile dressing was applied.? Upon completion of the injection patient was taken outside of the operating room to the recovery room where recovered uneventful Orders: Orders FL guidance in treatment room 06/24/24 M48.00 - Spinal stenosis, site unspecified, M53.3 - Sacrococcygeal disorders, not elsewhere classified, M54.50 - Low back pain, unspecified Coding Level of Care Code Procedure Only Diagnoses Sacroiliac joint dysfunction of right side M53.3
[2024-06-24 14:57] VITALS: BP 174/98; PULSE 74; RESP 17; O2SAT 96
== END 2024-06-24 15:07 | disposition home or self-care (01) ==
LOC: HO.PMCPRC 14:05
PROVIDERS: PCP Pediatrics; Visit Provider Anesthesiology
DX: M53.3 Sacrococcygeal disorders, not elsewhere classified (principal)
CPT/HCPCS: 27096

== ENCOUNTER 2024-07-16 14:44 | Outpatient (AMB) | payer MEDICARE, MEDICAID, SELFPAY ==
--- NOTE | 2024-07-16 14:45 | A.OFFVIS_ITS ---
Vital Signs 3 07/16/24 14:45 Height 5 ft 2 in Intake Visit Reasons: RIGHT THERAPEUTIC SIJ INJECTION Allergies No Known Allergies Allergy (Verified 04/24/24 10:44) HPI Comments Details: Telephone visit completed today for follow-up, 1 month status post right therapeutic sacroiliac joint injection Reports injection was ?successful . Improvement in pain over the SI joint since. Unable to provide detailed account of how much % pain relief as the right hip pain has been over shadowing with severe pain Scheduled with [facility] and [place] next month for the right hip pain Has been using the SI joint belt with good effect. Reports it is overused and could benefit with replacement as SIJ belt Continues with physical therapy though pain persists. Using topical NSAIDs, oral NSAIDs, muscle relaxers, prescription medications but pain persists Prior: Telephone visit completed today for follow-up, review of recent MRI and x-rays. Imaging reviewed, results as per below Radiology findings reviewed with patient, questions and concerns were answered. She has been working to find an orthopedic office that will not discriminate because of her weight. She has been unsuccessful so far, unable to find anybody who would be willing to proceed with hip replacement surgery. Finding this frustrating as she is suffering in pain and her mobility/function are declining. Prior: Telephone visit completed today for follow up, patient with some questions about medications Has been taking Methocarbamol with minimal effect, she was advised yesterday she can increase to 1000mg TID as needed. Has questions about dosing and when to take in regards to her other medications continues with right SIJ pain and reports worsening function and mobility using two canes and at times a walker for ambulation has appt with [facility] for eval next Sunday Prior: Telephone visit performed today for follow-up, 2 days status post right diagnostic sacroiliac joint injection She reports for 3 hours after the procedure she had no pain and her mobility was significantly improved. After this pain continued to improve though she did find that the instability and difficulty with walking and lifting her right leg remained Overall she would reports 80% pain relief in the hours after the procedure. She would like referral to spine surgeon can evaluate her for SI fusion with external hardware Intake note: Lilli is a very pleasant 63-year-old who presents the office today for evaluation and management of their chronic right lower back pain Patient has been suffering with this pain for greater than 10 years, does endorse many accidents, falls and injuries in the past Right lower back pain with radiation down the thigh to the knee. Pain does not travel past the knee. Denies numbness, tingling, weakness of either lower extremity. History of bilateral knee replacements, does endorse chronic knee pain also Pain today is rated as a 10/10, constant. Pain is exacerbated by moving, bending, twisting, sitting for extended period of time, standing for extended period of time, doing housework. Patient is currently taking tramadol every 4-6 hours with oxycodone as needed. Cyclobenzaprine 10 mg 3 times daily as needed. Meloxicam daily. All without improvement of the pain. Currently attending formal physical therapy as well as seeing a physical therapist on their own. Working on core strength but there pain persists. Currently also doing home exercise therapy and water aerobics Patient has been using a sacroiliac joint belt without improvement of her pain. Endorses some urinary dribbling over the last several months, denies any loss of bladder without sensory awareness. Denies saddle anesthesia. Denies loss of bowel. In terms of muscle damage condition is described as spasming, stabbing, sharp, shooting, tiring, exhausting, cramping, numb. Pain is negatively impacting patient's enjoyment of life, general activity, recreational activities, relationships with people, sleep, walking, dressing, yd work, cooking, hygiene, housework. Physical Exam Telephone visit only, physical exam and vital signs deferred Telehealth Telehealth Telehealth Platform: Telephone Location of provider rendering services: practice address Location of patient: address on file Patient Identification confirmed using: Name, : Yes Telehealth method: voice only Patient verbally consented to treatment: Yes Patient verbally consented to billing insurance company: Yes Patient informed of any privacy concerns related to visit: Yes Minutes spent on Phone/Video with Pt.: 22 Results Reviewed Results Reviewed: 04/202404/17/24 MR/MR lumbar spine wo con FINDINGS: Minimal left convex curvature of the lumbar spine. Degenerative grade 1 anterolisthesis of L4 on L5. Moderate degenerative disc disease from L2-S1. Mild degenerative disc disease at all additional levels. Associated mixed Modic type discogenic endplate changes including Modic type I discogenic edema from T12-S1 . Mild marrow edema within the posterior elements of L3-S1 consistent with degenerative stress reaction. No additional suspicious marrow edema. The vertebral body heights are well-maintained. The conus medullaris terminates at the level of L1. The distal spinal cord is normal in appearance. No significant abnormalities of the paraspinal musculature. Limited evaluation of the intra-abdominal structures without significant abnormalities. The abdominal aorta is of normal contour and caliber. AXIAL SPINAL LEVELS: L1-L2: Mild diffuse disc bulge. There is mild bilateral facet joint arthropathy. There is mild bilateral neural foraminal stenosis. There is no spinal canal stenosis. L2-L3: Mild diffuse disc bulge. There is severe right and moderate left facet joint arthropathy. There is moderate bilateral neural foraminal stenosis. There is stenosis of the subarticular zones with moderate spinal canal stenosis centrally. L3-L4: Moderate diffuse disc bulge with posterior osseous ridging. There is moderate bilateral facet joint arthropathy. There is severe bilateral neural foraminal stenosis. There is stenosis of the subarticular zones with moderate spinal canal stenosis centrally. L4-L5: Prominent diffuse disc bulge exacerbated by uncovering from anterolisthesis. There is severe bilateral facet joint arthropathy. There is moderate to severe bilateral neural foraminal stenosis. There is stenosis of the subarticular zones with moderate to severe spinal canal stenosis centrally. L5-S1: Moderate diffuse disc bulge. Left lateral osteophyte complex abutting the exited left L5 nerve root. There is severe right and moderate left facet joint arthropathy. There is moderate to severe left and moderate right neural foraminal stenosis. There is narrowing of the subarticular zones with no overt spinal canal stenosis centrally. IMPRESSION: Moderate to advanced multilevel degenerative spondyloarthropathy of the lumbar spine as described in detail above. Most notably, there is moderate to severe spinal canal stenosis at L4-L5. Moderate spinal canal stenoses at L2-L3 and L3-L4. Narrowing/stenoses of the subarticular zones from L2-S1. Moderate to severe neural foraminal stenoses from L2-S1. 06/2023 XR LS 04/2022 MRI LS Assessment & Plan Assessment & Plan (1) Sacroiliac joint dysfunction of right side: Code(s): M53.3 - Sacrococcygeal disorders, not elsewhere classified Category: Medical (2) Bilateral knee pain: Code(s): M25.561 - Pain in right knee; M25.562 - Pain in left knee Category: Medical (3) Gait instability: Code(s): R26.81 - Unsteadiness on feet Category: Medical (4) Spinal stenosis: Code(s): M48.00 - Spinal stenosis, site unspecified Category: Medical Plan Telephone visit completed today for follow-up, status post right therapeutic SI J injection Today reports continued right hip pain Patient has exhausted conservative therapy including brace, PT, home exercise program, nonsteroidal anti-inflammatory medications, prescription medications and [id number] medications Will schedule for fluoroscopy guided intra-articular right hip injection with local anesthetic. Follow-up with orthopedics as planned in 1 month All questions and concerns have been answered and patient agrees with the plan. Follow up after injections and sooner if needed. Medications: New 2 back brace As directed Sacroiliac Belt 1 ea 0RF M53.3 - Sacrococcygeal disorders, not elsewhere classified Coding Level of Care Code Tele Est Pt Level 3 (48593) Complex EM visit Add On G2211 Diagnoses Sacroiliac joint dysfunction of right side M53.3 Bilateral knee pain M25.561; M25.562 Gait instability R26.81 Spinal stenosis M48.00
--- OUTSIDE RECORDS SUMMARY | 2024-07-16 14:46 | XMS_ITS | Continuity of Care Document ---
Author Organization [facility] Address [address] [place] [address]- Care Team Providers Care Supervisor Properties Name Role Phone Vivi HENNING, Celestina Givens Primary Care Physician Encounter [facility] [place] Date(s): 06/10/24 - 07/10/24 [facility] [address] [place] [address]- Encounter Type: Triage Allergies, Adverse Reactions, Alerts [...] 08/21/22 Given tetanus/diphtheria/pertussis, acel(Tdap) 7 08/13/12 Given [id number] 12y+ bivalent booster vax 06/14/22 Recorded SARS-CoV-2 mRNA ([id number]) vax 02/14/22 Recorded SARS-CoV-2 (COVID-19) mRNA BNT-162b2 vac 05/06/21 Given SARS-CoV-2 (COVID-19) mRNA BNT-162b2 vac 11/04/20 Recorded SARS-CoV-2 (COVID-19) mRNA BNT-162b2 vac 10/14/20 Recorded pneumococcal 23-valent vaccine 8 04/07/19 Given 1Result Comment: screening negative 2Result Comment: [facility]# [id number] 3Result Comment: [05/25/2018] [employer] lot number [id number] exp 01/26/2019 [facility] [id number] 4Result Comment: [08/20/2017] [facility] [id number] 5Admin Note: VIM dated 01/29/12 GIVEN TODAY 6Result Comment: [facility]# [id number] 7Admin Note: VIM dated 08/22/11 GIVEN TODAY 8Result Comment: [facility]#[id number] Medications acetaminophen 500 mg oral capsule 2 [...] Refills, Soft Stop, :28:00 PM EDT, [facility], Partial fill upon patient request if [...] 4:46:00 PM EDT, Route to Pharmacy Electronically, [facility]/pharmacy #[id number], Partial fill upon [...] COVERED, # 100 Gm, 1 Refills, Maintenance, 07/03/24 12:05:00 PM EST, [facility] STORE [id number], 25, APPLY TO AFFECTED AREA 4 TIMES A DAY. NOT COVERED,157.5, cm, 06/16/24 14:53:00 EST, Height, 145.9, kg, 05/22/23 7:39:00 EDT, Dry Weight Start Date: 07/03/24 Status: Ordered Quantity: 100.0 Unit: g Repeat number: 1 Dulera 50 mcg-5 mcg/inh inhalation aerosol 2 puffs, Inhalation, 2 times a day, PRN Other, as needed for cough, wheezing, or shortness of breath; may use up to 4 times daily for up to 1 week due to acute symptoms but notify prescriber if needing longer. Rinse mouth and throat after use., # 13 Gm, 11 Refills, Maintenance, 08/29/23 5:07:00 PM EST, Aerosol, [id number], Partial fill upon patient request [...] 0 Refills, Maintenance, 02/28/21 4:31:00 PM EDT, [place], [facility], Partial fill upon patient request [...] 9:11:00 AM EDT, Route to Pharmacy Electronically, [facility]ORE [id number],157.5, cm, 01/22/24 10:31:00 EDT, Height, 145.9, kg, 05/22/23 7:39:00 EDT, Dry Weight Start Date: 01/25/24 Status: Ordered Quantity: 90.0 Unit: capsule Repeat number: 1 FLUoxetine 20 mg oral capsule See Instructions, TAKE 1 CAPSULE BY MOUTH EVERY DAY, # 90 capsule, Refills 1, Maintenance, 06/20/2411:48:00 AM EST, Instructions Replace Required Details, Route to Pharmacy Electronically, [facility] [id number], 157.5, cm, 06/16/24 14:53:00 EST, Height, 145.9, kg, 05/22/23 7:39:00 EDT, Dry Weight Start Date: 06/20/24 Status: Ordered Quantity: 90.0 Unit: capsule Repeat number: 1 gabapentin 300 mg oral capsule 600 mg, 2, capsule, By Mouth, 3 times a day, # 180 capsule, Refills 3, Tot. Refills 3, Maintenance,08/25/22 10:35:00 PM EST, Route to Pharmacy Electronically, [facility]/pharmacy #2024, Partial fill upon [...] 1 Refills, Maintenance, 12/28/23 4:17:00 PM EDT, [facility] STORE [id number], 157.5, cm, 10/18/23 15:15:00 EDT, Height, 145.9, kg, 05/22/23 7:39:00 EDT, Dry Weight Start Date: 12/28/23 Status: Ordered Quantity: 90.0 Unit: tablet Repeat number: 1 levothyroxine 175 mcg (0.175 mg) oral tablet 1 tablet = 175 mcg, By Mouth, Daily, # 90 tablet, 2 Refills, Maintenance, 06/17/24 1:48:00 PM EST, Tablet, [facility]/pharmacy #2025, Partial fill upon [...] 0 Refills, Maintenance, 02/27/23 10:43:00 AM EDT, [facility]/pharmacy #2025, Partial fill upon [...] 1 Refills, Maintenance, 03/28/24 7:37:00 AM EDT, [facility]/pharmacy #2025, 157.5, cm, 02/12/24 14:48:00 EDT, Height, 145.9, kg, 05/22/23 7:39:00 EDT, Dry Weight Start Date: 03/28/24 Status: Ordered Quantity: 30.0 Unit: tablet Repeat number: 2 metFORMIN 500 mg oral tablet, extended release 1 tablet = 500 mg, By Mouth, Daily, # 90 tablet, 1 Refills, Maintenance, 01/22/24 11:02:00 AM EDT, ER Tablet, [facility]/pharmacy #2025, Partial fill upon [...] may [facility]l this [facility], Refills 0, Tot. Refills 0, Maintenance, Pain , Severe, 06/30/24 5:17:00 PM EST, Route to Pharmacy Electronically, [facility]/pharmacy #2024, Partial fill upon patient request, 157.5, cm, 06/16/24 14:53:00 EST, Height, 145.9, kg, 05/22/23 7:39:00 EDT, Dry Weight Start Date: 06/30/24 Status: Ordered Quantity: 20.0 Unit: tablet Repeat [...] day, # 140 tablet, 0 Refills, Maintenance, 06/30/24 5:18:00 PM EST, Tablet, [facility], Partial fill upon patient request if the prescription is for a schedule II opioid drug. DNF 07/08/24, 157.5, cm, 06/16/24 14:53:00 EST, Height, 145.9, kg, 05/22/23 7:39:00 EDT, Dry Weight Start Date: 06/30/24 Status: Ordered Quantity: 140.0 Unit: tablet Repeat [...] bedtime, # 30 tablet, 0 Refills, Maintenance, 07/08/24 4:50:00PM EST, [facility]/pharmacy #2025, Partial fill upon patient request if the prescription is for a scheduleII opioid drug., 157.5, cm, 06/16/24 14:53:00 EST, Height, 145.9, kg, 05/22/23 7:39:00 EDT, Dry Weight Start Date: 07/08/24 Status: Ordered Quantity: 30.0 Unit: tablet Repeat [...] Code MRI Safety Implantable Status Assigning Authority [id number] Unknown [id number] Unknown 08/26/24 Unknown Unknown Active GS1 Patient Care team information Care Team Personnel Name: Celestina Trinidad MD Position: [facility] Physician - Primary Care Member Role: PCP Address: [address] [place] [address] Telecom: Name: Hemalatha Lucas RN [facility] RN Member Role: Primary Care Nurse Name: Minra Greenfield RN Position: [facility] RN Member Role: Primary Care Nurse Name: Nessa Bonilla RN Position: [facility] Dairy Clerk Member Role: Primary Care Nurse Care [...]
--- OUTSIDE RECORDS SUMMARY | 2024-07-16 14:46 | XMS_ITS | Continuity of Care Document ---
Author Organization [facility] Address [address] [place] [address]- Care Team Providers Care Terrestrial Ecologist Name Role Phone Vivi HENNING, Celestina Givens Primary Care Physician Encounter [facility] [place] Date(s): 06/10/24 - 07/10/24 [facility] [address] [place] [address]- Encounter Type: Triage Allergies, Adverse Reactions, Alerts [...] 08/21/22 Given tetanus/diphtheria/pertussis, acel(Tdap) 7 08/13/12 Given [id number] 12y+ bivalent booster vax 06/14/22 Recorded SARS-CoV-2 mRNA ([id number]) vax 02/14/22 Recorded SARS-CoV-2 (COVID-19) mRNA BNT-162b2 vac 05/06/21 Given SARS-CoV-2 (COVID-19) mRNA BNT-162b2 vac 11/04/20 Recorded SARS-CoV-2 (COVID-19) mRNA BNT-162b2 vac 10/14/20 Recorded pneumococcal 23-valent vaccine 8 04/07/19 Given 1Result Comment: screening negative 2Result Comment: [facility]# [id number] 3Result Comment: [05/25/2018] [employer] lot number [id number] exp 01/26/2019 [facility] [id number] 4Result Comment: [08/20/2017] [facility] [id number] 5Admin Note: VIM dated 01/29/12 GIVEN TODAY 6Result Comment: [facility]# [id number] 7Admin Note: VIM dated 08/22/11 GIVEN TODAY 8Result Comment: [facility]#[id number] Medications acetaminophen 500 mg oral capsule 2 [...] 4:46:00 PM EDT, [facility], [facility] 1 Refills, Maintenance, 07/03/24 12:05:00 PM EST, [facility] [id number], 25, APPLY TO AFFECTED AREA 4 TIMES [...] 0 Refills, Maintenance, 02/28/21 4:31:00 PM EDT, [place], [facility], Partial fill upon patient request [...] 9:11:00 AM EDT, Route to Pharmacy Electronically, [facility] STORE 94386,157.5, cm, 01/22/24 10:31:00 EDT, Height, 145.9, kg, 05/22/23 7:39:00 EDT, Dry Weight Start Date: 01/25/24 Status: Ordered Quantity: 90.0 Unit: capsule Repeat number: 1 FLUoxetine 20 mg oral capsule See Instructions, TAKE 1 CAPSULE BY MOUTH EVERY DAY, # 90 capsule, Refills 1, Maintenance, 06/20/2411:48:00 AM EST, Instructions Replace Required Details, Route to Pharmacy Electronically, [facility] [id number], 157.5, cm, 06/16/24 14:53:00 EST, Height, 145.9, kg, 05/22/23 7:39:00 EDT, Dry Weight Start Date: 06/20/24 Status: Ordered Quantity: 90.0 Unit: capsule Repeat number: 1 gabapentin 300 mg oral capsule 600 mg, 2, capsule, By Mouth, 3 times a day, # 180 capsule, Refills 3, Tot. Refills 3, Maintenance,08/25/22 10:35:00 PM EST, [facility] Electron[facility], [facility] [...] 1 Refills, Maintenance, 12/28/23 4:17:00 PM EDT, [facility] STORE [id number], 157.5, cm, 10/18/23 15:15:00 EDT, Height, 145.9, kg, 05/22/23 7:39:00 EDT, Dry Weight Start Date: 12/28/23 Status: Ordered Quantity: 90.0 Unit: tablet Repeat number: 1 levothyroxine 175 mcg (0.175 mg) oral tablet 1 tablet = 175 mcg, By Mouth, Daily, # 90 tablet, 2 Refills, Maintenance, 06/17/24 1:48:00 PM EST, Tablet, [facility]/pharmacy #2025, Partial fill upon patient request [...] 0 Refills, Maintenance, 02/27/23 10:43:00 AM EDT, [facility]/pharmacy #2025, Partial fill upon patient request [...] 1 Refills, Maintenance, 03/28/24 7:37:00 AM EDT, [facility]/pharmacy #2025, 157.5, cm, 02/12/24 14:48:00 EDT, Height, 145.9, kg, 05/22/23 7:39:00 EDT, Dry Weight Start Date: 03/28/24 Status: Ordered Quantity: 30.0 Unit: tablet Repeat number: 2 metFORMIN 500 mg oral tablet, extended release 1 tablet = 500 mg, By Mouth, Daily, # 90 tablet, 1 Refills, Maintenance, 01/22/24 11:02:00 AM EDT, ER Tablet, [facility]/pharmacy #2025, Partial fill upon patient request [...] may filll this [facility] for [facility], Refills 0, Tot. Refills 0, Maintenance, Pain , Severe, 06/30/24 5:17:00 PM EST, Route to Pharmacy Electronically, [facility]/pharmacy #2024, Partial fill upon patient request, [...] tablet, 0 Refills, Maintenance, 07/08/24 4:50:00PM EST, [facility]/pharmacy #2025, Partial fill upon patient request [...] Code MRI Safety Implantable Status Assigning Authority [id number] Unknown [id number] Unknown 08/26/24 Unknown Unknown Active GS1 Patient Care team information Care Team Personnel Name: Celestina Trinidad MD Position: [facility] Physician - Primary Care Member Role: PCP Address: [address] [place] [address] Telecom: Name: Hemalatha Lucas RN [facility]: [facility] [...] Nessa Bonilla RN Position: [facility] Human Resources Consultant Member Role: Primary Care Nurse Care [...]
--- OUTSIDE RECORDS SUMMARY | 2024-07-16 14:46 | XMS_ITS | Continuity of Care Document ---
Author Organization [facility] Address [address] [place] [address]- Care Team Providers Care Composition Professor Name Role Phone Vivi HENNING, Celestina Givens Primary Care Physician [place] [facility] Date([place]): 05/28/24 - 06/27/24 [facility] [address] [place] [address]- Encounter Type: Triage Allergies, Adverse Reactions, Alerts [...] 08/21/22 Given tetanus/diphtheria/pertussis, acel(Tdap) 7 08/13/12 Given XGZH-VcR-[id number] 12y+ bivalent booster vax 06/14/22 Recorded SARS-CoV-2 mRNA (nquqkpq-jctz-datpq) vax 02/14/22 Recorded SARS-CoV-2 (COVID-19) mRNA BNT-162b2 vac 05/06/21 Given SARS-CoV-2 (COVID-19) mRNA BNT-162b2 vac 11/04/20 Recorded SARS-CoV-2 (COVID-19) mRNA BNT-162b2 vac 10/14/20 Recorded pneumococcal 23-valent vaccine 8 04/07/19 Given 1Result Comment: screening negative 2Result Comment: [facility]# [id number] 3Result Comment: [05/25/2018] seq[facility] lot number [id number] 01/26/2019 [facility] [id number] 4Result Comment: [08/20/2017] [facility] [id number] 5Admin Note: VIM dated 01/29/12 GIVEN TODAY 6Result Comment: [facility]# [id number] 7Admin Note: VIM dated 08/22/11 GIVEN TODAY 8Result Comment: [facility]#[id number] Medications acetaminophen 500 mg oral capsule 2 [...] Refills, Soft Stop, :28:00 PM EDT, [facility] Partial fill upon patient request if the [...] 4:46:00 PM EDT, Route to Pharmacy Electronically, [facility] 1 Refills, Maintenance, 04/22/24 3:15:00 PM EDT, [facility]/pharmacy #2024, 30, APPLY TO AFFECTED AREA 4 TIMES A DAY. NOT COVERED, 157.5, cm, 02/12/24 14:48:00 EDT, Height, 145.9, kg, 05/22/23 7:39:00 EDT, Dry Weight Start Date: 04/22/24 Status: Ordered Quantity: 100.0 Unit: g Repeat number: 2 diclofenac 1% topical gel See Instructions, APPLY TO AFFECTED AREA 4 TIMES A DAY, # 100 Gm, 1 Refills, Maintenance, 11/07/23 7:48:00 AM EDT, [facility]/pharmacy #2024, 25, APPLY TO AFFECTED AREA 4 [...] Refills, Maintenance, 08/29/23 5:07:00 PM EST, Aerosol, [facility]/pharmacy #2024, Partial fill [...] 0 Refills, Maintenance, 02/28/21 4:31:00 PM EDT, [place], [facility]/pharmacy #2025, Partial fill [...] 9:11:00 AM EDT, Route to Pharmacy Electronically, [facility] STORE 67210,157.5, cm, 01/22/24 10:31:00 EDT, Height, 145.9, kg, 05/22/23 7:39:00 EDT, Dry Weight Start Date: 01/25/24 Status: Ordered Quantity: 90.0 Unit: capsule Repeat number: 1 FLUoxetine 20 mg oral capsule See Instructions, TAKE 1 CAPSULE BY MOUTH EVERY DAY, # 90 capsule, Refills 1, Maintenance, 06/20/2411:48:00 AM EST, Instructions Replace Required Details, Route to Pharmacy Electronically, [facility] [id number], 157.5, cm, 06/16/24 14:53:00 EST, Height, 145.9, kg, 05/22/23 7:39:00 EDT, Dry Weight Start Date: 06/20/24 Status: Ordered Quantity: 90.0 Unit: capsule Repeat number: 1 gabapentin 300 mg oral capsule 600 mg, 2, capsule, By Mouth, 3 times a day, # 180 capsule, Refills 3, Tot. Refills 3, Maintenance,08/25/22 10:35:00 PM EST, Route to Pharmacy Electronically, [facility]/pharmacy #202, Partial fill [...] Maintenance, 12/28/23 4:17:00 PM EDT, [id number], 157.5, cm, 10/18/23 15:15:00 EDT, Height, 145.9, kg, 05/22/23 7:39:00 EDT, Dry Weight Start Date: 12/28/23 Status: Ordered Quantity: 90.0 Unit: tablet Repeat number: 1 levothyroxine 175 mcg (0.175 mg) oral tablet 1 tablet = 175 mcg, By Mouth, Daily, # 90 tablet, 2 Refills, Maintenance, 06/17/24 1:48:00 PM EST, Tablet, [facility]/pharmacy #2025, Partial fill [...] 1 Refills, Maintenance, 03/28/24 7:37:00 AM EDT, [facility]/pharmacy #2024, 157.5, cm, 02/12/24 14:48:00 EDT, Height, 145.9, kg, 05/22/23 7:39:00 EDT, Dry Weight Start Date: 03/28/24 Status: Ordered Quantity: 30.0 Unit: tablet Repeat number: 2 metFORMIN 500 mg oral tablet, extended release 1 tablet = 500 mg, By Mouth, Daily, # 90 tablet, 1 Refills, Maintenance, 01/22/24 11:02:00 AM EDT, ER Tablet, [facility]/pharmacy #2024, Partial [...] may filll this prescription for fewer pills. [facility] reviewed, # 20 tablet, Refills 0, Tot. Refills 0, Maintenance, Pain , Severe, 05/28/24 4:27:00 PM EDT, Route to Pharmacy Electronically, [facility]/pharmacy #2024, Partial fill upon patient request, 157.5, [...] Refills, Maintenance, 06/23/24 12:55:00 PM EST, Solution, [facility]/pharmacy #2024, Partial fill [...] tablet, 0 Refills, Maintenance, 06/10/24 2:39:00PM EST, [facility]/pharmacy #2024, Partial fill [...] Code MRI Safety Implantable Status Assigning Authority [id number] Unknown [id number] Unknown 08/26/24 Unknown Unknown Active GS1 Patient Care team information Care Team Personnel Name: Celestina Trinidad MD Position: [facility] Physician - Primary Care Member Role: PCP Address: [address] [place] [address] Telecom: Name: Hemalatha Lucas RN Position: [facility] RN Member Role: Primary Care Nurse Name: Lauren Mack RN Position: [facility] RN Member Role: Primary Care Nurse Name: Madelaine Ruiz RN Position: [facility] RN Member Role: Primary Care Nurse Name: Lora Santiago RN Position: [facility] SN RN Member Role: Primary Care Nurse Name: Mayco Ro RN Position: [facility] RN Member Role: Primary Care Nurse Name: Heydi Potts RN Position: [facility] SN RN Member Role: Primary Care Nurse Name: Janice Romano LPN Position: [facility] RN Member Role: Primary Care Nurse Name: Nadya Low RN Position: [facility] RN Member Role: Primary Care Nurse Name: Mirna Greenfield RN Position: [facility] RN Member Role: Primary Care Nurse Name: Nessa Bonilla RN Position: [facility] Hospital Aqueduct And Reservoir Keeper Member Role: Primary Care Nurse Care Team Related Persons Name: DINESH SARGENT Name: BON DE Insurance Providers Guarantor name: JORGE ALBERTO SAHU Health Plan Information #: 1 Payer: MEDICARE PART B OUTPT Member Number: NA Policy Number: NA Group Number: NA Health Plan Information #: 2 [facility] Member Number: NA Policy Number: NA Group Number: NA
--- OUTSIDE RECORDS SUMMARY | 2024-07-16 14:46 | XMS_ITS | Continuity of Care Document ---
Author Organization [facility] Address [address] [place] [address]- Care Team Providers Care Presbyterian Clergy Name Role Phone Vivi HENNING, Celestina Givens Primary Care Physician Encounter [facility] Date(s): 05/28/24 - 06/27/24 [facility] [address] [place] [address]- Encounter Type: Triage Allergies, Adverse Reactions, Alerts [...] 08/21/22 Given tetanus/diphtheria/pertussis, acel(Tdap) 7 08/13/12 Given [id number]-[id number]-[id number] 12y+ bivalent booster vax 06/14/22 Recorded SARS-CoV-2 mRNA (txjrkfr-iedb-iznzl) vax 02/14/22 Recorded SARS-CoV-2 (COVID-19) mRNA BNT-162b2 vac 05/06/21 Given SARS-CoV-2 (COVID-19) mRNA BNT-162b2 vac 11/04/20 Recorded SARS-CoV-2 (COVID-19) mRNA BNT-162b2 vac 10/14/20 Recorded pneumococcal 23-valent vaccine 8 04/07/19 Given 1Result Comment: screening negative 2Result Comment: [facility]# [id number] 3Result Comment: [05/25/2018] [facility] lot number [id number] exp 01/26/2019 [facility] [id number] 4Result Comment: [08/20/2017] [facility] [id number] 5Admin Note: VIM dated 01/29/12 GIVEN TODAY 6Result Comment: [facility]# [id number] 7Admin Note: VIM dated 08/22/11 GIVEN TODAY 8Result Comment: [facility]#[id number] Medications acetaminophen 500 mg oral capsule 2 [...] Refills, Soft Stop, :28:00 PM EDT, [facility], Partial fill upon patient request if the [...] 4:46:00 PM EDT, Route to Pharmacy Electronically, [facility] 1 Refills, Maintenance, 04/22/24 3:15:00 PM EDT, [facility]/pharmacy #2024, 30, APPLY TO AFFECTED AREA 4 TIMES A DAY. NOT COVERED, 157.5, cm, 02/12/24 14:48:00 EDT, Height, 145.9, kg, 05/22/23 7:39:00 EDT, Dry Weight Start Date: 04/22/24 Status: Ordered Quantity: 100.0 Unit: g Repeat number: 2 diclofenac 1% topical gel See Instructions, APPLY TO AFFECTED AREA 4 TIMES A DAY, # 100 Gm, 1 Refills, Maintenance, 11/07/23 7:48:00 AM EDT, [facility]/pharmacy #2024, 25, APPLY TO AFFECTED AREA [...] Refills, Maintenance, 08/29/23 5:07:00 PM EST, Aerosol, [facility]/pharmacy #2024, Partial fill upon [...] 0 Refills, Maintenance, 02/28/21 4:31:00 PM EDT, [place], [facility]/pharmacy #2025, Partial fill upon patient request [...] 9:11:00 AM EDT, Route to Pharmacy Electronically, [facility] STORE 78631,157.5, cm, 01/22/24 10:31:00 EDT, Height, 145.9, kg, 05/22/23 7:39:00 EDT, Dry Weight Start Date: 01/25/24 Status: Ordered Quantity: 90.0 Unit: capsule Repeat number: 1 FLUoxetine 20 mg oral capsule See Instructions, TAKE 1 CAPSULE BY MOUTH EVERY DAY, # 90 capsule, Refills 1, Maintenance, 06/20/2411:48:00 AM EST, Instructions Replace Required Details, Route to Pharmacy Electronically, [facility] [id number], 157.5, cm, 06/16/24 14:53:00 EST, Height, 145.9, kg, 05/22/23 7:39:00 EDT, Dry Weight Start Date: 06/20/24 Status: Ordered Quantity: 90.0 Unit: capsule Repeat number: 1 gabapentin 300 mg oral capsule 600 mg, 2, capsule, By Mouth, 3 times a day, # 180 capsule, Refills 3, Tot. Refills 3, Maintenance,08/25/22 10:35:00 PM EST, Route to Pharmacy Electronically, [facility]/pharmacy #202, Partial fill upon patient request [...] Maintenance, 12/28/23 4:17:00 PM EDT, [facility], 157.5, cm, 10/18/23 15:15:00 EDT, Height, 145.9, kg, 05/22/23 7:39:00 EDT, Dry Weight Start Date: 12/28/23 Status: Ordered Quantity: 90.0 Unit: tablet Repeat number: 1 levothyroxine 175 mcg (0.175 mg) oral tablet 1 tablet = 175 mcg, By Mouth, Daily, # 90 tablet, 2 Refills, Maintenance, 06/17/24 1:48:00 PM EST, Tablet, [facility]/pharmacy #2025, Partial fill upon patient request [...] 1 Refills, Maintenance, 03/28/24 7:37:00 AM EDT, [facility]/pharmacy #2024, 157.5, cm, 02/12/24 14:48:00 EDT, Height, 145.9, kg, 05/22/23 7:39:00 EDT, Dry Weight Start Date: 03/28/24 Status: Ordered Quantity: 30.0 Unit: tablet Repeat number: 2 metFORMIN 500 mg oral tablet, extended release 1 tablet = 500 mg, By Mouth, Daily, # 90 tablet, 1 Refills, Maintenance, 01/22/24 11:02:00 AM EDT, ER Tablet, [facility]/pharmacy #2024, Partial fill [...] may filll this prescription for fewer pills. [facility] reviewed, # 20 tablet, Refills 0, Tot. Refills 0, Maintenance, Pain , Severe, 05/28/24 4:27:00 PM EDT, Route to Pharmacy Electronically, [facility]/pharmacy #2024, Partial fill upon patient request, [...] Refills, Maintenance, 06/23/24 12:55:00 PM EST, Solution, [facility]/pharmacy #2024, Partial fill upon [...] tablet, 0 Refills, Maintenance, 06/10/24 2:39:00PM EST, [facility]/pharmacy #2024, Partial fill upon [...] Code MRI Safety Implantable Status Assigning Authority [id number] Unknown [id number] Unknown 08/26/24 Unknown Unknown Active GS1 Patient Care team information Care Team Personnel Name: Celestina Trinidad MD Position: [facility] Physician - Primary Care Member Role: PCP Address: [address] [place] [address] Telecom: Name: Hemalatha Lucas RN [facility] Care Nurse Name: Mirna Greenfiled RN Position: [facility] RN Member Role: Primary Care Nurse Name: Nessa Bonilla RN Position: [facility] Hospital Building Services Supervisor Member Role: Primary Care Nurse Care Team Related Persons Name: DINESH SARGENT Name: BON DE Insurance Providers Guarantor name: JORGE ALBERTO SAHU Health Plan Information #: 1 Payer: MEDICARE PART B OUTPT Member Number: NA Policy Number: NA Group Number: NA Health Plan Information #: 2 [facility]: [facility] Member Number: NA Policy Number: NA Group Number: NA
--- OUTSIDE RECORDS SUMMARY | 2024-07-16 14:47 | XMS_ITS | Continuity of Care Document ---
Author Organization [facility] Address [address] [place] [address]- Care Team Providers Care Media Senior Recruiter Name Role Phone Vivi HENNING, Celestina Givens Primary Care Physician Encounter [facility] Date(s): 05/26/24 - 06/25/24 [facility] [address] [place] [address]- Encounter Type: Triage Allergies, Adverse Reactions, Alerts [...] 08/21/22 Given tetanus/diphtheria/pertussis, acel(Tdap) 7 08/13/12 Given DPUQ-FiJ-3cPWJ 12y+ bivalent booster vax 06/14/22 Recorded SARS-CoV-2 mRNA (urhfzvc-sdle-pjahc) vax 02/14/22 Recorded SARS-CoV-2 (COVID-19) mRNA BNT-162b2 vac 05/06/21 Given SARS-CoV-2 (COVID-19) mRNA BNT-162b2 vac 11/04/20 Recorded SARS-CoV-2 (COVID-19) mRNA BNT-162b2 vac 10/14/20 Recorded pneumococcal 23-valent vaccine 8 04/07/19 Given 1Result Comment: screening negative 2Result Comment: [facility]# [id number] 3Result Comment: [05/25/2018] [facility] lot number [id number] exp 01/26/2019 [facility] [id number] 4Result Comment: [08/20/2017] [facility] [id number] 5Admin Note: VIM dated 01/29/12 GIVEN TODAY 6Result Comment: [facility] [id number] 7Admin Note: VIM dated 08/22/11 GIVEN TODAY 8Result Comment: [facility]#[id number] Medications acetaminophen 500 mg oral capsule 2 [...] Refills, Soft Stop, :28:00 PM EDT, [facility], Partial fill upon patient request if [...] 4:46:00 PM EDT, Route to Pharmacy Electronically, [facility]/pharmacy #2024, Partial fill [...] 1 Refills, Maintenance, 04/22/24 3:15:00 PM EDT, [facility]/pharmacy #2024, 30, APPLY TO [...] 1 Refills, Maintenance, 11/07/23 7:48:00 AM EDT, [facility]/pharmacy #2024, 25, APPLY TO [...] Refills, Maintenance, 08/29/23 5:07:00 PM EST, [place], [facility]/pharmacy #2024, Partial fill [...] 0 Refills, Maintenance, 02/28/21 4:31:00 PM EDT, [place], [facility]/pharmacy #2025, Partial fill [...] 9:11:00 AM EDT, Route to Pharmacy Electronically, [facility] STORE 28864,157.5, cm, 01/22/24 10:31:00 EDT, Height, 145.9, kg, 05/22/23 7:39:00 EDT, Dry Weight Start Date: 01/25/24 Status: Ordered Quantity: 90.0 Unit: capsule Repeat number: 1 FLUoxetine 20 mg oral capsule See Instructions, TAKE 1 CAPSULE BY MOUTH EVERY DAY, # 90 capsule, Refills 1, Maintenance, 06/20/2411:48:00 AM EST, Instructions Replace Required Details, Route to Pharmacy Electronically, [facility] [id number], 157.5, cm, 06/16/24 14:53:00 EST, Height, 145.9, kg, 05/22/23 7:39:00 EDT, Dry Weight Start Date: 06/20/24 Status: Ordered Quantity: 90.0 Unit: capsule Repeat number: 1 gabapentin 300 mg oral capsule 600 mg, 2, capsule, By Mouth, 3 times a day, # 180 capsule, Refills 3, Tot. Refills 3, Maintenance,08/25/22 10:35:00 PM EST, [facility]acy Electron[facility], [facility] [...] Maintenance, 12/28/23 4:17:00 PM EDT, [facility], 157.5, cm, 10/18/23 15:15:00 EDT, Height, 145.9, kg, 05/22/23 7:39:00 EDT, Dry Weight Start Date: 12/28/23 Status: Ordered Quantity: 90.0 Unit: tablet Repeat number: 1 levothyroxine 175 mcg (0.175 mg) oral tablet 1 tablet = 175 mcg, By Mouth, Daily, # 90 tablet, 2 Refills, Maintenance, 06/17/24 1:48:00 PM EST, Tablet, [facility]/pharmacy #2025, Partial fill [...] 1 Refills, Maintenance, 03/28/24 7:37:00 AM EDT, [facility]/pharmacy #2024, 157.5, cm, 02/12/24 14:48:00 EDT, Height, 145.9, kg, 05/22/23 7:39:00 EDT, Dry Weight Start Date: 03/28/24 Status: Ordered Quantity: 30.0 Unit: tablet Repeat number: 2 metFORMIN 500 mg oral tablet, extended release 1 tablet = 500 mg, By Mouth, Daily, # 90 tablet, 1 Refills, Maintenance, 01/22/24 11:02:00 AM EDT, ER Tablet, [facility]/pharmacy #2024, Partial fill [...] may filll this prescription for fewer pills. [facility] reviewed, # 20 tablet, Refills 0, Tot. Refills 0, Maintenance, Pain , Severe, 05/28/24 4:27:00 PM EDT, Route to Pharmacy Electronically, [facility]/pharmacy #2024, Partial fill [...] Refills, Maintenance, 06/23/24 12:55:00 PM EST, Solution, [facility]/pharmacy #2024, Partial fill [...] tablet, 0 Refills, Maintenance, 06/10/24 2:39:00PM EST, [facility]/pharmacy #2024, Partial [...] Code MRI Safety Implantable Status Assigning Authority [id number] Unknown [id number] Unknown 08/26/24 Unknown Unknown Active GS1 Patient Care team information Care Team Personnel Name: Celestina Trinidad MD Position: [facility] Physician - Primary Care Member Role: PCP Address: [address] [place] [address] Telecom: Name: Hemalatha Lucas RN Position: [facility] [...] Care Nurse Name: Nessa Bonilla RN Position: [facility] Hospital Audit Officer Member Role: Primary Care Nurse Care Team Related Persons Name: DINESH SARGENT Name: BON DE Insurance Providers Guarantor name: JORGE ALBERTO SAHU Health Plan Information #: 1 Payer: MEDICARE PART B OUTPT Member Number: NA Policy Number: NA Group Number: NA Health Plan Information #: 2 Payer: [facility] Member Number: NA Policy Number: NA Group Number: NA
--- OUTSIDE RECORDS SUMMARY | 2024-07-16 14:47 | XMS_ITS | Continuity of Care Document ---
Author Organization [facility] Address [address] [place] [address]- Care Team Providers Care Wire Mill Operator Name Role Phone Vivi HENNING, Celestina Givens Primary Care Physician Encounter [facility] Date(s): 06/10/24 - 07/10/24 [facility] [address] [place] [address]- Encounter Type: Triage Allergies, Adverse Reactions, Alerts [...] 08/21/22 Given tetanus/diphtheria/pertussis, acel(Tdap) 7 08/13/12 Given OAUE-UiK-9eHDJ 12y+ bivalent booster vax 06/14/22 Recorded SARS-CoV-2 mRNA (nuetgkj-kusp-mgmsx) vax 02/14/22 Recorded SARS-CoV-2 (COVID-19) mRNA BNT-162b2 vac 05/06/21 Given SARS-CoV-2 (COVID-19) mRNA BNT-162b2 vac 11/04/20 Recorded SARS-CoV-2 (COVID-19) mRNA BNT-162b2 vac 10/14/20 Recorded pneumococcal 23-valent vaccine 8 04/07/19 Given 1Result Comment: screening negative 2Result Comment: [facility] [place]# [id number] 3Result Comment: [05/25/2018] [facility] lot number [id number] exp 01/26/2019 [facility] [place] 2] 18661-801-74 4Result Comment: [08/20/2017] [facility] [place] 2] [id number] 5Admin Note: VIM dated 01/29/12 GIVEN TODAY 6Result Comment: [facility]# [id number] 7Admin Note: VIM dated 08/22/11 GIVEN TODAY 8Result Comment: [facility]#[id number] Medications acetaminophen 500 mg oral capsule 2 [...] Refills, Soft Stop, :28:00 PM EDT, [facility], Partial fill upon patient request if the [...] PM EDT, [facility], [facility] 1 Refills, Maintenance, 07/03/24 12:05:00 PM EST, [facility] STORE [id number], 25, APPLY TO AFFECTED AREA 4 TIMES [...] 0 Refills, Maintenance, 02/28/21 4:31:00 PM EDT, [place], [facility], Partial fill upon patient request [...] AM EDT, Route to Pharmacy Electronically, [facility] STORE 35321,157.5, cm, 01/22/24 10:31:00 EDT, Height, 145.9, kg, 05/22/23 7:39:00 EDT, Dry Weight Start Date: 01/25/24 Status: Ordered Quantity: 90.0 Unit: capsule Repeat number: 1 FLUoxetine 20 mg oral capsule See Instructions, TAKE 1 CAPSULE BY MOUTH EVERY DAY, # 90 capsule, Refills 1, Maintenance, 06/20/2411:48:00 AM EST, Instructions Replace Required Details, Route to Pharmacy Electronically, [facility] [id number], 157.5, cm, 06/16/24 14:53:00 EST, Height, 145.9, kg, 05/22/23 7:39:00 EDT, Dry Weight Start Date: 06/20/24 Status: Ordered Quantity: 90.0 Unit: capsule Repeat number: 1 gabapentin 300 mg oral capsule 600 mg, 2, capsule, By Mouth, 3 times a day, # 180 capsule, Refills 3, Tot. Refills 3, Maintenance,08/25/22 10:35:00 PM EST, [facility] Pharmacy Electron[facility], [facility] 1 Refills, Maintenance, 12/28/23 4:17:00 PM EDT, [facility] STORE [id number], 157.5, cm, 10/18/23 15:15:00 EDT, Height, 145.9, kg, 05/22/23 7:39:00 EDT, Dry Weight Start Date: 12/28/23 Status: Ordered Quantity: 90.0 Unit: tablet Repeat number: 1 levothyroxine 175 mcg (0.175 mg) oral tablet 1 tablet = 175 mcg, By Mouth, Daily, # 90 tablet, 2 Refills, Maintenance, 06/17/24 1:48:00 PM EST, Tablet, [facility]/pharmacy #2025, Partial [...] 0 Refills, Maintenance, 02/27/23 10:43:00 AM EDT, [facility]/pharmacy #2025, Partial [...] Refills, Maintenance, 03/28/24 7:37:00 AM EDT, [facility]/pharmacy #2025, 157.5, cm, 02/12/24 14:48:00 EDT, Height, 145.9, kg, 05/22/23 7:39:00 EDT, Dry Weight Start Date: 03/28/24 Status: Ordered Quantity: 30.0 Unit: tablet Repeat number: 2 metFORMIN 500 mg oral tablet, extended release 1 tablet = 500 mg, By Mouth, Daily, # 90 tablet, 1 Refills, Maintenance, 01/22/24 11:02:00 AM EDT, ER Tablet, [facility]/pharmacy [...] may filll this [facility] for fewer pills[facility] # [facility], Refills 0, Tot. Refills 0, Maintenance, Pain , Severe, 06/30/24 5:17:00 PM EST, Route to Pharmacy Electronically, [facility]/pharmacy #2024, Partial fill upon patient request, 157.5, [...] tablet, 0 Refills, Maintenance, 07/08/24 4:50:00PM EST, [facility]/pharmacy #2025, Partial fill [...] Code MRI Safety Implantable Status Assigning Authority [id number] Unknown [id number] Unknown 08/26/24 Unknown Unknown Active GS1 Patient Care team information Care Team Personnel Name: Celestina Trinidad MD Position: [facility] Physician - Primary Care Member Role: PCP Address: [address] [place] [address] Telecom: Name: Hemalatha Lucas RN Position: [facility] RN Member Role: Primary Care Nurse Name: Lauren Mack RN Position: [facility] RN [...] Potts RN Position: [facility] SN [...] Nessa Bonilla RN Position: [facility] Elevator Service Technician Member Role: Primary Care Nurse [...]
--- OUTSIDE RECORDS SUMMARY | 2024-07-16 14:47 | XMS_ITS | Continuity of Care Document ---
Author Organization [facility] Address [address] [place] [address]- Care Team Providers Care Gas Meter Repairer Name Role Phone Vivi HENNING, Celestina Givens Primary Care Physician [place] [facility] [place] 07[place]24 [facility] [address] [place] [address]- Encounter Type: Triage Allergies, Adverse Reactions, Alerts [...] 08/21/22 Given tetanus/diphtheria/pertussis, acel(Tdap) 7 08/13/12 Given [id number]-[id number]-[id number] 12y+ bivalent booster vax 06/14/22 Recorded SARS-CoV-2 mRNA (azuoong-rjpo-tcvcw) vax 02/14/22 Recorded SARS-CoV-2 (COVID-19) mRNA BNT-162b2 vac 05/06/21 Given SARS-CoV-2 (COVID-19) mRNA BNT-162b2 vac 11/04/20 Recorded SARS-CoV-2 (COVID-19) mRNA BNT-162b2 vac 10/14/20 Recorded pneumococcal 23-valent vaccine 8 04/07/19 Given 1Result Comment: screening negative 2Result Comment: [facility]# [id number] 3Result Comment: [05/25/2018] [employer] lot number [id number] exp 01/26/2019 [facility] [id number] 4Result Comment: [08/20/2017] [facility] [id number] 5Admin Note: VIM dated 01/29/12 GIVEN TODAY 6Result Comment: [facility]# [id number] 7Admin Note: VIM dated 08/22/11 GIVEN TODAY 8Result Comment: [facility]#[id number] Medications acetaminophen 500 mg oral capsule 2 [...] Refills, Soft Stop, :28:00 PM EDT, [facility] Partial fill upon patient request if the [...] PM EST, [facility] STORE 76013, 25, APPLY TO AFFECTED AREA 4 TIMES [...] 0 Refills, Maintenance, 02/28/21 4:31:00 PM EDT, [place], [facility], Partial fill upon patient request [...] Pharmacy Electronically, [facility] STORE 77103,157.5, cm, 01/22/24 10:31:00 EDT, Height, 145.9, kg, 05/22/23 7:39:00 EDT, Dry Weight Start Date: 01/25/24 Status: Ordered Quantity: 90.0 Unit: capsule Repeat number: 1 FLUoxetine 20 mg oral capsule See Instructions, TAKE 1 CAPSULE BY MOUTH EVERY DAY, # 90 capsule, Refills 1, Maintenance, 06/20/2411:48:00 AM EST, Instructions Replace Required Details, Route to Pharmacy Electronically, [facility] [id number], 157.5, cm, 06/16/24 14:53:00 EST, Height, 145.9, [...] PM EDT, [facility] STORE 04432, 157.5, cm, 10/18/23 15:15:00 EDT, Height, 145.9, [...] [facility]l [facility], Refills [...] tablet, 0 Refills, Maintenance, 06/10/24 2:39:00PM EST, [facility]/pharmacy #2025, Partial [...] Code MRI Safety Implantable Status Assigning Authority [id number] [id number] Unknown [id number] Unknown 08/26/24 Unknown Unknown Active GS1 Patient Care team information Care Team Personnel Name: Celestina Trinidad MD Position: [facility] Physician - Primary Care Member Role: PCP Address: [address] [place] [address] Telecom: Name: Hemalatha Lucas RN Position: [facility] RN Member Role: Primary Care Nurse Name: Lauren Mack RN Position: [facility] RN Member Role: Primary Care Nurse Name: Madelaine Ruiz RN Position: [facility] RN Member Role: Primary Care Nurse Name: Lora Santiago RN Position: [facility] SN RN Member Role: Primary Care Nurse Name: Mayco Ro RN Position: [facility] RN Member Role: Primary Care Nurse Name: Heydi Potts RN Position: [facility] RN Member Role: Primary Care Nurse Name: Janice Romano LPN Position: [facility] RN Member Role: Primary Care Nurse Name: Nadya Low RN Position: [facility] RN Member Role: Primary Care Nurse Name: Mirna Greenfield RN Position: [facility] RN Member Role: Primary Care Nurse Name: Nessa Bonilla RN Position: [facility] Wool Shearing Supervisor Member Role: Primary Care Nurse Care [...]
--- OUTSIDE RECORDS SUMMARY | 2024-07-16 14:47 | XMS_ITS | Continuity of Care Document ---
Author Organization [facility] Address [address] [place] [address]- Care Team Providers Care Supervisor Name Role Phone Vivi HENNING, Celestina Givens Primary Care Physician Encounter [facility] [place] Date(s): 05/26/24 - 06/25/24 [facility] [address] [place] [address]- Encounter Type: Triage Allergies, Adverse Reactions, Alerts [...] 08/21/22 Given tetanus/diphtheria/pertussis, acel(Tdap) 7 08/13/12 Given YJGN-IkN-2nYCO 12y+ bivalent booster vax 06/14/22 Recorded SARS-CoV-2 mRNA (jbfsfhd-agjm-ghxbt) vax 02/14/22 Recorded SARS-CoV-2 (COVID-19) mRNA BNT-162b2 vac 05/06/21 Given SARS-CoV-2 (COVID-19) mRNA BNT-162b2 vac 11/04/20 Recorded SARS-CoV-2 (COVID-19) mRNA BNT-162b2 vac 10/14/20 Recorded pneumococcal 23-valent vaccine 8 04/07/19 Given 1Result Comment: screening negative 2Result Comment: [facility]# [id number] 3Result Comment: [05/25/2018] [employer] lot number [id number] exp 01/26/2019 [facility] [id number] 4Result Comment: [08/20/2017] [facility] [phone] 5Admin Note: VIM dated 01/29/12 GIVEN TODAY 6Result Comment: [facility]# [id number] 7Admin Note: VIM dated 08/22/11 GIVEN TODAY 8Result Comment: [facility]#[id number] Medications acetaminophen 500 mg oral capsule 2 [...] 4:46:00 PM EDT, Route to Pharmacy Electronically, [facility], Partial fill upon patient [...] 1 Refills, Maintenance, 04/22/24 3:15:00 PM EDT, [facility] #2024, 30, APPLY TO AFFECTED AREA 4 TIMES A DAY. NOT COVERED, 157.5, cm, 02/12/24 14:48:00 EDT, Height, 145.9, kg, 05/22/23 7:39:00 EDT, Dry Weight Start Date: 04/22/24 Status: Ordered Quantity: 100.0 Unit: g Repeat number: 2 diclofenac 1% topical gel See Instructions, APPLY TO AFFECTED AREA 4 TIMES A DAY, # 100 Gm, 1 Refills, Maintenance, 11/07/23 7:48:00 AM EDT, [facility]2024, 25, APPLY TO AFFECTED [...] Refills, Maintenance, 08/29/23 5:07:00 PM EST, [place], [facility]2024, Partial fill upon patient [...] 0 Refills, Maintenance, 02/28/21 4:31:00 PM EDT, [place], [facility]2025, Partial fill upon patient [...] 9:11:00 AM EDT, Route to Pharmacy Electronically, [facility] STORE 23773,157.5, cm, 01/22/24 10:31:00 EDT, Height, 145.9, kg, 05/22/23 7:39:00 EDT, Dry Weight Start Date: 01/25/24 Status: Ordered Quantity: 90.0 Unit: capsule Repeat number: 1 FLUoxetine 20 mg oral capsule See Instructions, TAKE 1 CAPSULE BY MOUTH EVERY DAY, # 90 capsule, Refills 1, Maintenance, 06/20/2411:48:00 AM EST, Instructions Replace Required Details, Route to Pharmacy Electronically, [facility] [id number], 157.5, cm, 06/16/24 14:53:00 EST, Height, 145.9, kg, 05/22/23 7:39:00 EDT, Dry Weight Start Date: 06/20/24 Status: Ordered Quantity: 90.0 Unit: capsule Repeat number: 1 gabapentin 300 mg oral capsule 600 mg, 2, capsule, By Mouth, 3 times a day, # 180 capsule, Refills 3, Tot. Refills 3, Maintenance,08/25/22 10:35:00 PM EST, Route to Pharmacy Electronically, [facility]202, Partial fill upon patient request [...] Maintenance, 12/28/23 4:17:00 PM EDT, [facility], 157.5, cm, 10/18/23 15:15:00 EDT, Height, 145.9, kg, 05/22/23 7:39:00 EDT, Dry Weight Start Date: 12/28/23 Status: Ordered Quantity: 90.0 Unit: tablet Repeat number: 1 levothyroxine 175 mcg (0.175 mg) oral tablet 1 tablet = 175 mcg, By Mouth, Daily, # 90 tablet, 2 Refills, Maintenance, 06/17/24 1:48:00 PM EST, Tablet, [facility]2025, Partial fill upon patient [...] 1 Refills, Maintenance, 03/28/24 7:37:00 AM EDT, [facility]2024, 157.5, cm, 02/12/24 14:48:00 EDT, Height, 145.9, kg, 05/22/23 7:39:00 EDT, Dry Weight Start Date: 03/28/24 Status: Ordered Quantity: 30.0 Unit: tablet Repeat number: 2 metFORMIN 500 mg oral tablet, extended release 1 tablet = 500 mg, By Mouth, Daily, # 90 tablet, 1 Refills, Maintenance, 01/22/24 11:02:00 AM EDT, ER Tablet, [facility]2024, Partial fill upon patient [...] may filll this prescription for fewer pills. [facility] reviewed, # 20 tablet, Refills 0, Tot. Refills 0, Maintenance, Pain , Severe, 05/28/24 4:27:00 PM EDT, Route to Pharmacy Electronically, [facility]2024, Partial fill upon patient request, [...] Refills, Maintenance, 06/23/24 12:55:00 PM EST, Solution, [facility]2024, Partial fill upon patient [...] tablet, 0 Refills, Maintenance, 06/10/24 2:39:00PM EST, [facility]2024, Partial fill upon patient [...] Code MRI Safety Implantable Status Assigning Authority [id number] 731 Unknown [id number] Unknown 08/26/24 Unknown Unknown Active GS1 Patient Care team information Care Team Personnel Name: Celestina Trinidad MD Position: [facility] Physician - Primary Care Member Role: PCP Address: [address] [place] [address] Telecom: Name: Hemalatha Lucas RN Position: [facility] RN Member Role: Primary Care Nurse Name: Lauren Mack RN Position: [facility] RN Member Role: Primary Care Nurse Name: Madelaine Ruiz RN Position: [facility] RN Member Role: Primary Care Nurse Name: Lora Santiago RN Position: [facility] SN RN Member Role: Primary Care Nurse Name: Mayco Ro RN Position: [facility] RN Member Role: Primary Care Nurse Name: Heydi Potts RN Position: [facility] SN RN Member Role: Primary Care Nurse Name: Janice Romano LPN Position: [facility] RN Member Role: Primary Care Nurse Name: Nadya Low RN Position: [facility] RN Member Role: Primary Care Nurse Name: Mirna Greenfield RN Position: [facility] RN Member Role: Primary Care Nurse Name: Nessa Bonilla RN Position: [facility] Hospital Supervising Bailiff Member Role: Primary Care Nurse Care Team Related Persons Name: DINESH SARGENT Name: BON DE Insurance Providers Guarantor name: JORGE ALBERTO SAHU Health Plan Information #: 1 Payer: MEDICARE PART B OUTPT Member Number: NA Policy Number: NA Group Number: NA Health Plan Information #: 2 [facility] Member Number: NA Policy Number: NA Group Number: NA
--- OUTSIDE RECORDS SUMMARY | 2024-07-16 14:47 | XMS_ITS | Continuity of Care Document ---
Author Organization [facility] Address [address] [place] [address]- Care Team Providers Care Collar Trimmer Name Role Phone Vivi HENNING, Celestina Givens Primary Care Physician Encounter [facility] Date(s): 06/11/24 - 07/11/24 [facility] [address] [place] [address]- Encounter Type: Triage Allergies, Adverse Reactions, Alerts [...] 08/21/22 Given tetanus/diphtheria/pertussis, acel(Tdap) 7 08/13/12 Given BEPS-GrP-[id number] 12y+ bivalent booster vax 06/14/22 Recorded SARS-CoV-2 mRNA (qxygcvv-zcry-mudcf) vax 02/14/22 Recorded SARS-CoV-2 (COVID-19) mRNA BNT-162b2 vac 05/06/21 Given SARS-CoV-2 (COVID-19) mRNA BNT-162b2 vac 11/04/20 Recorded SARS-CoV-2 (COVID-19) mRNA BNT-162b2 vac 10/14/20 Recorded pneumococcal 23-valent vaccine 8 04/07/19 Given 1Result Comment: screening negative 2Result Comment: [facility][note 3]# [id number] 3Result Comment: [05/25/2018] [facility] lot number [id number] exp 01/26/2019 [facility][note 3] [id number] 4Result Comment: [08/20/2017] [facility][note 3] [id number] 5Admin Note: VIM dated 01/29/12 GIVEN TODAY 6Result Comment: [facility]# [id number] 7Admin Note: VIM dated 08/22/11 GIVEN TODAY 8Result Comment: [facility]#[id number] Medications acetaminophen 500 mg oral capsule 2 [...] 4:46:00 PM EDT, [facility] Pharmacy Electronically, [facility] [...] 1 Refills, Maintenance, 07/03/24 12:05:00 PM EST, [facility] STORE 36730, 25, APPLY TO AFFECTED AREA 4 TIMES [...] 0 Refills, Maintenance, 02/28/21 4:31:00 PM EDT, [place], [facility], Partial fill upon patient request [...] 9:11:00 AM EDT, Route to Pharmacy Electronically, [facility] STORE 15788,157.5, cm, 01/22/24 10:31:00 EDT, Height, 145.9, kg, 05/22/23 7:39:00 EDT, Dry Weight Start Date: 01/25/24 Status: Ordered Quantity: 90.0 Unit: capsule Repeat number: 1 FLUoxetine 20 mg oral capsule See Instructions, TAKE 1 CAPSULE BY MOUTH EVERY DAY, # 90 capsule, Refills 1, Maintenance, 06/20/2411:48:00 AM EST, Instructions Replace Required Details, Route to Pharmacy Electronically, [facility] [id number], 157.5, cm, 06/16/24 14:53:00 EST, Height, 145.9, kg, 05/22/23 7:39:00 EDT, Dry Weight Start Date: 06/20/24 Status: Ordered Quantity: 90.0 Unit: capsule Repeat number: 1 gabapentin 300 mg oral capsule 600 mg, 2, capsule, By Mouth, 3 times a day, # 180 capsule, Refills 3, Tot. Refills 3, Maintenance,08/25/22 10:35:00 PM EST, Route [facility] Pharmacy Electronically, [facility] [...] 1 Refills, Maintenance, 12/28/23 4:17:00 PM EDT, [facility] STORE 79880, 157.5, cm, 10/18/23 15:15:00 EDT, Height, 145.9, kg, 05/22/23 7:39:00 EDT, Dry Weight Start Date: 12/28/23 Status: Ordered Quantity: 90.0 Unit: tablet Repeat number: 1 levothyroxine 175 mcg (0.175 mg) oral tablet 1 tablet = 175 mcg, By Mouth, Daily, # 90 tablet, 2 Refills, Maintenance, 06/17/24 1:48:00 PM EST, Tablet, [facility]/pharmacy #2025, Partial fill [...] 0 Refills, Maintenance, 02/27/23 10:43:00 AM EDT, [facility]/pharmacy #2025, Partial [...] 1 Refills, Maintenance, 03/28/24 7:37:00 AM EDT, [facility]/pharmacy #2025, 157.5, cm, 02/12/24 14:48:00 EDT, Height, 145.9, kg, 05/22/23 7:39:00 EDT, Dry Weight Start Date: 03/28/24 Status: Ordered Quantity: 30.0 Unit: tablet Repeat number: 2 metFORMIN 500 mg oral tablet, extended release 1 tablet = 500 mg, By Mouth, Daily, # 90 tablet, 1 Refills, Maintenance, 01/22/24 11:02:00 AM EDT, ER Tablet, [facility]/pharmacy #2025, Partial fill [...] [facility]l [facility], Refills 0, Tot. Refills 0, Maintenance, Pain , Severe, 06/30/24 5:17:00 PM EST, Route [facility] Pharmacy Electronically, [facility] [...] tablet, 0 Refills, Maintenance, 07/08/24 4:50:00PM EST, [facility]/pharmacy #2025, Partial fill [...] Code MRI Safety Implantable Status Assigning Authority [id number] [id number] Unknown [id number] Unknown 08/26/24 Unknown Unknown Active GS1 Patient Care team information Care Team Personnel Name: Celestina Trinidad MD Position: [facility] Physician - Primary Care Member Role: PCP Address: [address] [place] [address] Telecom: Name: Hemalatha Lucas RN Position: [facility] [...] Member Role: Primary Care Nurse Name: Janice oRmano LPN Position: [facility] RN Member Role: Primary Care Nurse Name: Nadya Low RN Position: [facility] RN Member Role: Primary Care Nurse Name: Mirna Greenfield RN Position: [facility] RN Member Role: Primary Care Nurse Name: Nessa Bonilla RN Position: [facility] Guide Foreign Tour Member Role: Primary Care Nurse Care Team [...]
--- OUTSIDE RECORDS SUMMARY | 2024-07-16 14:47 | XMS_ITS | Continuity of Care Document ---
Author Organization [facility] Address [address] [place] [address]- Care Team Providers Care Transporter Driver Name Role Phone Vivi HENNING, Celestina Givens Primary Care Physician Encounter [facility] Date(s): 06/10/24 - 07/10/24 [facility] [address] [place] [address]- Encounter Type: Triage Allergies, Adverse Reactions, Alerts [...] 08/21/22 Given tetanus/diphtheria/pertussis, acel(Tdap) 7 08/13/12 Given KNFM-LyL-0sVAD 12y+ bivalent booster vax 06/14/22 Recorded SARS-CoV-2 mRNA (ldmfcbg-wbdt-tlzmm) vax 02/14/22 Recorded SARS-CoV-2 (COVID-19) mRNA BNT-162b2 vac 05/06/21 Given SARS-CoV-2 (COVID-19) mRNA BNT-162b2 vac 11/04/20 Recorded SARS-CoV-2 (COVID-19) mRNA BNT-162b2 vac 10/14/20 Recorded pneumococcal 23-valent vaccine 8 04/07/19 Given 1Result Comment: screening negative 2Result Comment: [facility]# [id number] 3Result Comment: [05/25/2018] [facility] lot number [id number] exp 01/26/2019 [facility] 86930-816-75 4Result Comment: [08/20/2017] [facility] [id number] 5Admin Note: VIM dated 01/29/12 GIVEN TODAY 6Result Comment: [facility]# [id number] 7Admin Note: VIM dated 08/22/11 GIVEN TODAY 8Result Comment: [facility]#[id number] Medications acetaminophen 500 mg oral capsule 2 [...] 4:46:00 PM EDT, [place] Pharmacy Electronically, [facility] [place] [place] 1 Refills, Maintenance, 07/03/24 12:05:00 PM EST, [facility] STORE 38892, 25, APPLY TO AFFECTED AREA 4 TIMES [...] 0 Refills, Maintenance, 02/28/21 4:31:00 PM EDT, [place], [facility], Partial fill upon patient request [...] 9:11:00 AM EDT, Route to Pharmacy Electronically, [facility] STORE 93935,157.5, cm, 01/22/24 10:31:00 EDT, Height, 145.9, kg, 05/22/23 7:39:00 EDT, Dry Weight Start Date: 01/25/24 Status: Ordered Quantity: 90.0 Unit: capsule Repeat number: 1 FLUoxetine 20 mg oral capsule See Instructions, TAKE 1 CAPSULE BY MOUTH EVERY DAY, # 90 capsule, Refills 1, Maintenance, 06/20/2411:48:00 AM EST, Instructions Replace Required Details, Route to Pharmacy Electronically, [facility] [id number], 157.5, cm, 06/16/24 14:53:00 EST, Height, 145.9, kg, 05/22/23 7:39:00 EDT, Dry Weight Start Date: 06/20/24 Status: Ordered Quantity: 90.0 Unit: capsule Repeat number: 1 gabapentin 300 mg oral capsule 600 mg, 2, capsule, By Mouth, 3 times a day, # 180 capsule, Refills 3, Tot. Refills 3, Maintenance,08/25/22 10:35:00 PM EST, Route [place] Pharmacy Electronically, [facility] [place] [...] 1 Refills, Maintenance, 12/28/23 4:17:00 PM EDT, [facility] STORE 51627, 157.5, cm, 10/18/23 15:15:00 EDT, Height, 145.9, kg, 05/22/23 7:39:00 EDT, Dry Weight Start Date: 12/28/23 Status: Ordered Quantity: 90.0 Unit: tablet Repeat number: 1 levothyroxine 175 mcg (0.175 mg) oral tablet 1 tablet = 175 mcg, By Mouth, Daily, # 90 tablet, 2 Refills, Maintenance, 06/17/24 1:48:00 PM EST, Tablet, [facility]/pharmacy #2025, Partial [...] 0 Refills, Maintenance, 02/27/23 10:43:00 AM EDT, [facility]/pharmacy #2025, Partial [...] 1 Refills, Maintenance, 03/28/24 7:37:00 AM EDT, [facility]/pharmacy #2025, 157.5, cm, 02/12/24 14:48:00 EDT, Height, 145.9, kg, 05/22/23 7:39:00 EDT, Dry Weight Start Date: 03/28/24 Status: Ordered Quantity: 30.0 Unit: tablet Repeat number: 2 metFORMIN 500 mg oral tablet, extended release 1 tablet = 500 mg, By Mouth, Daily, # 90 tablet, 1 Refills, Maintenance, 01/22/24 11:02:00 AM EDT, ER Tablet, [facility]/pharmacy #2025, Partial [...] may filll this prescription for fewer pills[facility] # [facility] tablet, Refills 0, Tot. Refills 0, Maintenance, Pain , Severe, 06/30/24 5:17:00 PM EST, Route to Pharmacy Electronically, [facility]/pharmacy #2024, Partial fill upon patient request, 157.5, [...] tablet, 0 Refills, Maintenance, 07/08/24 4:50:00PM EST, [facility]/pharmacy #2025, Partial [...] Code MRI Safety Implantable Status Assigning Authority [id number] [id number] Unknown [id number] Unknown 08/26/24 Unknown Unknown Active GS1 Patient Care team information Care Team Personnel Name: Celestina Trinidad MD Position: [facility] Physician - Primary Care Member Role: PCP Address: [address] [place] [address] Telecom: Name: Hemalatha Lucas RN Position: [facility] RN Member Role: Primary Care Nurse Name: Lauren Mack RN Position: [facility] RN Member Role: Primary Care Nurse Name: Madelaine Ruiz RN Position: [facility] RN Member Role: Primary Care Nurse Name: Lora Santiago RN Position: [facility] SN RN Member Role: Primary Care Nurse Name: Mayco Ro RN Position: [facility] RN Member Role: Primary Care Nurse Name: Heydi Potts RN Position: [facility] SN RN Member Role: Primary Care Nurse Name: Janice Romano LPN Position: [facility] RN Member Role: Primary Care Nurse Name: Nadya Low RN Position: [facility] RN Member Role: Primary Care Nurse Name: Mirna Greenfield RN Position: [facility] RN Member Role: Primary Care Nurse Name: Nessa Bonilla RN Position: [facility] [employer] Member Role: Primary Care Nurse Care Team [...]
--- OUTSIDE RECORDS SUMMARY | 2024-07-16 14:47 | XMS_ITS | Data Portability ---
Author Organization [facility] [employer] [facility], [facility], [facility]_Office Address [address] [place] [id number] Care Team Providers Care Casting Associate Name Role Phone YAW FOSTER Primary Care Provider Unavailabl YAW Oliva Referring Provider Unavailable Assessment Encounter Date Assessment Date Assessment LastModified by Organization Details LastModified Time 02/21/2018 02/21/2018 X-rays of the ankle On the right and left show minor medial osteochondral abnormalities. I do not see any arthritis of the talonavicular joint or the subtalar joint. There is no evident deformity but the x-rays were not weightbearing. There are also no x-rays of the foot. The patient did not bring any x-rays although they have been done. Impression: I was unable to find mechanical pain to explain the discomfort. Some of the discomfort sounded neuritic. Some of the discomfort appears to be related to the weight situation.There are already good arch supports and high top shoes that should help hold both feet in neutral. The posterior tibial tendons were intact. There is no pain over the second tarsometatarsal joints. The patient indicated that the pain felt deep but I was unable to identify anything that I could treat. Plan: I spent some time discussing weight loss. I spent quite a bit of time looking for any mechanical pain. I suggested going through physical therapy to help. The patient has a carbon fiber AFO but I do not feel that there is indeed for this. I was unable to identify any need for an injection or surgical procedure. Aspercreme and lidocaine or possibly hemp oil might decrease some of his discomfort. He is already using the hemp oil and as identified that it helps him for about an hour or 2 at a time [email or web address] Not available 02/21/2018 17:09:30 Plan of Treatment Reminders Order Date Submit Date Provider Last Modified By Organization Details Last Modified Time Details Appointments None record ed. Lab None record ed. Referral None record ed. Procedures None record ed. Surgeries None record ed. Imaging None record ed. Medication Orders None record ed. Patient TargetsNo targets recorded. Patient InstructionsNo instructions recorded. Reason for Referral None Reported. Results Created Date Observation Date Name Description Value Unit Range Abnormal Flag Note LastModifiedBy Organization Detail LastModifiedTime 02/22/20 18 02/21/2018 XR, ankle , 3 or more view [facility] Dep[facility] of Radiol ogy [address] [place] [address], [id number] Name: Chon SAHU : [id number] Date of Servic e: [birth year]26 Acct Number : [id number] Order Number : [id number] Locati on: WORD Report Number : [id number] Servic e: REG REF/ Reques ting Physic jeimy: Flaquito caballero,Car ol Catego ry: ORTHOP EDIC RADIOL OGY [facility] Exam: ANKLE 3 VIEWS Right Access ion #: [id number] VH Signs/ Sympto ms: RIGHT ANKLE PAIN POST OP Report Status : Sig karina EXAM: Right ankle, 3 views HISTOR Y: Pain. Postop . COMPAR ALYSSIA: No prior exam. FINDIN GS: There is some subcho ndral lucenc y with sclero tic rim in the medial talar dome consis tent with prior osteoc hondra l injury . There is a lucent area with sclero tic lesion in the medial malleo eleonora, questi on subcho ndral cyst versus relate d to recons tructi ve surger y. Mild nonuni form narrow ing of the tibiot alar joint is seen with margin al osteop hytes handtools repairer iorly. There is no acute fractu re or disloc ation. A modera te planta r calcan eal spur is presen t. Soft tissue swelli ng circum ferent ially. Mild subcut aneous edema in the distal lower leg. IMPRES TERESA: Osteoc hondra l injury medial talar dome and degene rative change s of the tibiot alar joint. Questi on degene rative cystic change in the medial malleo eleonora. Date/T alvino of Dictat ion: 1625 Radiol ogy Reside nt (if applic able): Approv ed By Attend ing Radiol ogist: Patsy Vee 1625 Orderi ng physic jeimy: Ari caballero Other provid ers: Ari caballero, Ari caballero, , [facility] , Ari caballero, , [facility] [address] [place] [address], [id number], 02/26/2018 07:00:25 02/22/20 18 02/21/2018 XR, ankle , 3 or more view [facility] Hospit al Depart ment of Radiol ogy [address] [place] [address], [id number] [phone] Name: Chon SAHU : [id number] Date of Servic e: 1427 Acct Number : [id number] Order Number : [id number] Locati on: WORD Report Number : [id number] Servic e: REG REF/ Reques ting Physic jeimy: Flaquito caballero,Car vikram Catego ry: ORTHOP EDIC RADIOL OGY [facility] Exam: ANKLE 3 VIEWS Left Access ion #: [id number] VH Signs/ Sympto ms: LEFT ANKLE PAIN POST OP Report Status : Sig karina EXAM: Left ankle, 3 views HISTOR Y: Pain. Postop . COMPAR ALYSSIA: No prior exam. FINDIN GS: There is some subcho ndral lucenc y with sclero tic rim in the medial talar dome consis tent with prior osteoc hondra l injury . Margin al osteop hytes of the tibial plafon d handtools repairer iorly. There is no acute fractu re or disloc ation. A modera te planta r calcan eal spur is presen t. Os trigon um is presen t. Soft tissue swelli ng circum ferent ially. Mild subcut aneous edema in the distal lower leg. IMPRES TERESA: Osteoc hondra l injury medial talar dome. Planta r calcan eal spur.. Date/T alvino of Dictat ion: 162 Radiol ogy Reside nt (if applic able): Approv ed By Attend ing Radiol ogist: Patsy Vee 1626 Orderi indy physic jeimy: Ari caballero Other provid ers: Ari caballero, Ari caballero, , [facility] , Ari caballero, , [facility] (Radiology) [address] [place] [address], [id number], 02/26/2018 07:00:25 Result Notes None recorded. Problems Name Problem SNOMED Code Status Onset Date Resolution Date Notes Provider Name and Address Organization Details Recorded Time [facility]thritis 5660631 [facility] [employer], [facility] [place], [facility] 8 15:02:06 Asthma 198342972 Active Jeannine Abdirahman [employer], [email or web address] [place], [facility] 8 15:02:11 Problem Notes None recorded. Procedures Surgical History Date Name Laterality Status Provider Name and Address Organization Details Recorded Time Knee arthroscopy/surg franco [facility] [place], [facility] 02/21/2018 15:03:15 Shoulder joint surgery completed [facility] [place], [facility] 02/21/2018 15:03:21 Elbow arthroscopy [facility] [place], [facility] 02/21/2018 15:03:26 Unlisted px hands/fingers [facility] 02/21/2018 15:03:30 Imaging Results Imaging Date Name Status LastModified by Organiz [facility] Details LastModified Time 02/21/2018 XR, ankle, 3 or more view completed [facility] (Radiology) [address] [place] [address], [id number], 02/26/2018 07:00:25 02/21/2018 XR, ankle, 3 or more view completed [facility] (Radiology) [address] [place] [address], [id number], 02/26/2018 07:00:25 Procedure Notes None recorded. Medical Equipment None Reported. Allergies No known drug allergies Medications Name Sig Start Date Stop Date Status Note LastModified by Organization Details LastModified Time cyclobenzaprine 10 mg tablet active Not Available Not Available Not Available amoxicillin 500 mg capsule 02/21 completed Not Available Not Available Not Available ibuprofen 800 mg tablet active Not Available Not Available Not Available fluconazole 150 mg tablet 02/21 completed Not Available Not Available Not Available meloxicam 15 mg tablet active Not Available Not Available Not Available prednisone 20 mg tablet 02/21 completed Not Available Not Available Not Available penicillin V potassium 500 mg tablet 02/21 completed Not Available Not Available Not Available metronidazole 500 mg tablet 02/21 completed Not Available Not Available Not Available tramadol 50 mg tablet active Not Available Not Available Not Available meclizine 25 mg tablet 02/21 completed Not Available Not Available Not Available zolpidem 5 mg tablet active Not Available Not Available Not Available zolpidem 10 mg tablet active Not Available Not Available Not Available fluoxetine 20 mg capsule active Not Available Not Available Not Available fluticasone propionate 50 mcg/actuation nasal spray,suspension 02/21 completed Not Available Not Available Not Available Ventolin HFA 90 mcg/actuation aerosol inhaler active Not Available Not Availa ble Not Available cyclobenzaprine 5 mg tablet active Not Available Not Available Not Available Ambien active Not Available Not Availa ble Not Available diclofenac 1 % topical gel active Not Available Not Available Not Available Vitals Date Recorded Body height Body mass index (BMI) Body weight Systolic blood pressure Diastolic blood pressure Provider Name and Address Organization Details Last Updated DateTime 02/21/2018 160.02 cm 50.5 kg/m2 894545.8 3 g 128 mm[Hg] 84 mm[Hg] Jeannine Gary [facility] [employer] [facility] 8 14:49:38 Social History Question Answer Notes LastModified by Organizat ion Details LastModified Time Tobacco Smoking Status Former Smoker Jeannine galo [facility] [employer] [facility] 02/21/2018 15:02:54 What Is Your Level Of Alcohol Consumption? None Information not available 02/21/2018 Are You Currently Employed? No Information not available 02/21/2018 What Is Your Occupation? Disabled Information not available 02/21/2018 What Was The Date Of Your Most Recent Tobacco Screening? 02/21/2018 Information not available 02/20/2019 How Many Years Have You Smoked Tobacco? 20 Information not available 02/21/2018 Sex: Unknown Functional Status None recorded. Mental Status None recorded. Family History Relationship Description Onset Age of this Age Resolved Age Notes LastModified by Organization Details LastModified Time Father Heart disease [email or web address] Not available 2017 15:02:22 Father Hypertensive disorder [email or web address] Not available 2017 15:02:28 Medical History Condition Response Coronary Artery Disease N Anxiety/Depression N Gout N Blood Transfusion N Hernia N COPD N Lung Disease N Pacemaker N Edema N Deep Vein Thrombosis N Varicose Veins N Orthotics N Arthritis Y Blood Clot N Cancer N Stroke N Leg or Foot Ulcers N Raynaud's Disease N Polio N High Cholesterol N Liver Disease N Organ Transplant N Rheumatoid Arthritis N Fibromyalgia N Foot Deformity N Dialysis N Kidney Disease N Heart Problems N Artificial Joints N Migraines N Thyroid Problems N Anemia N Back Pain N Ulcers N Diabetes N Bleeding Disorder N Seizures/Epilepsy N Tuberculosis N AIDS/HIV N Asthma Y Substance Abuse N Peripheral Vascular Disease N Hepatitis N Heart Disease N Pulmonary Embolism N Hypertension N Osteoporosis N Gynecological HistoryNo gynecological history recorded. Obstetrics History GPAL:G 0 P 0 0 0 0 Past Encounters Encounter ID Performer Location Encounter Start Date Encounter Closed Date Diagnosis/Indication Diagnosis SNOMED-CT Code Diagnosis ICD10 Code [id number] ARI JOSEPH MD [facility]_ Office [address] [place] [phone] 02/21/2018 14:31:27 02/21/2018 16:10:28 Ankle pain 698105776 M25.572 M25.571 Health Concerns Section Related Observation LastModified by Organization Detai ls LastModified Time None Recorded Concern Status LastModified by Organization Details LastModified Time None Recorded Advance Directives Directive None Recorded Payers Encounter Date Sequence Insurance Name Policy Number Policy Black Covered Member ID Black Member ID Guarantor Name 02/21/2018 1 [place] [email or web address] Lilli Sahu [id number] Lilli Sahu 02/21/2018 2 [place] Lilli Sahu [id number] Lilli Sahu Notes Date Note Type Note Provider Name and Address Organization Details Recorded Time 02/21/2018 text/html AnkleReported bypatient.Location:b ilateral Quality:aching; not changing Severity:severe; pain level 10 Timing:chronic Alleviating Factors:rest; limited weight bearing Aggravating Factors:walking; weightbearing Associated Symptoms:no redness; no warmth; no buckling Previous Surgery:none Prior Imaging:x ray Previous Injections:none Previous PT:none Work Related:no Working:noNotes:Tanisha pan is a 57 year old white individual who presents today for an evaluation of bilateral ankle pain that is worse on the right side. There has been pain in the ankles for many years. There is a recollection of falling a lot over the years. Several doctors have been consulted for this. Custom orthotics were made which did help somewhat. Several different kinds of shoes have been tried. There was a recommendation for possible surgery but the patient does not know what was entailed in this. Apparently an stock unloader, a thermal cutting machine operator and Dr Hsu in [place] have been seen for this. There is a shooting pain over the tops of the feet especially at the end of the day or when the feet are elevated. The patient has been trying to lose weight. There was a 45 pound weight loss before bilateral total knees done recently. Before this the patient had bowlegs and now they are straight. Prior to the total knee surgery there had been an identification that there was bilateral shooting pain going down the iliotibial band area. This pain has not decreased since the surgery was done and the knees are now straighter. This also bothers the patient when the patient tries to ambulate. Recently the patient had a reverse total shoulder on the left side. The patient is 5'3 and weighs about 285-290 pounds. The patient indicates that hemp oil has been helping the pain. When the hemp oil was used there is1-2 hours of pain-free time.The patient recorded the entire discussion about predisposing problems as well as the physical exam and quite a bit of the discussion after the exam ARI JOSEPH MD [address] [place] [address], [phone], [facility], [facility] 02/21/2018 17:11:12 OBGyn Episode No OBEpisode recorded.
--- OUTSIDE RECORDS SUMMARY | 2024-07-16 14:47 | XMS_ITS | Continuity of Care Document ---
Author Organization [facility] Address [address] [place] [address]- Care Team Providers Care Firebrick Layer Name Role Phone Vivi HENNING, Celestina Givens Primary Care Physician Encounter [facility] Date(s): 06/04/24 - 07/04/24 [facility] [address] [place] [address]- Encounter Type: Triage Allergies, Adverse Reactions, Alerts [...] 08/21/22 Given tetanus/diphtheria/pertussis, acel(Tdap) 7 08/13/12 Given [id number] 12y+ bivalent booster vax 06/14/22 Recorded SARS-CoV-2 mRNA ([id number]) vax 02/14/22 Recorded SARS-CoV-2 (COVID-19) mRNA BNT-162b2 vac 05/06/21 Given SARS-CoV-2 (COVID-19) mRNA BNT-162b2 vac 11/04/20 Recorded SARS-CoV-2 (COVID-19) mRNA BNT-162b2 vac 10/14/20 Recorded pneumococcal 23-valent vaccine 8 04/07/19 Given 1Result Comment: screening negative 2Result Comment: [facility]# [id number] 3Result Comment: [05/25/2018] [employer] lot number [id number] exp 01/26/2019 [facility] [id number] 4Result Comment: [08/20/2017] [facility] [id number] 5Admin Note: VIM dated 01/29/12 GIVEN TODAY 6Result Comment: [facility]# [id number] 7Admin Note: VIM dated 08/22/11 GIVEN TODAY 8Result Comment: [facility]#[id number] Medications acetaminophen 500 mg oral capsule 2 [...] Refills, Maintenance, 07/03/24 12:05:00 PM EST, [id number], 25, APPLY TO AFFECTED AREA 4 TIMES [...] 0 Refills, Maintenance, 02/28/21 4:31:00 PM EDT, [place], [id number], Partial fill upon patient request [...] Pharmacy Electronically, [facility] [id number],157.5, cm, 01/22/24 10:31:00 EDT, Height, 145.9, kg, 05/22/23 7:39:00 EDT, Dry Weight Start Date: 01/25/24 Status: Ordered Quantity: 90.0 Unit: capsule Repeat number: 1 FLUoxetine 20 mg oral capsule See Instructions, TAKE 1 CAPSULE BY MOUTH EVERY DAY, # 90 capsule, Refills 1, Maintenance, 06/20/2411:48:00 AM EST, Instructions Replace Required Details, Route to Pharmacy Electronically, [id number], 157.5, cm, 06/16/24 14:53:00 EST, Height, 145.9, [...] Refills, Maintenance, 12/28/23 4:17:00 PM EDT, [facility] [id number], 157.5, cm, 10/18/23 15:15:00 EDT, Height, 145.9, kg, 05/22/23 7:39:00 EDT, Dry Weight Start Date: 12/28/23 Status: Ordered Quantity: 90.0 Unit: tablet Repeat number: 1 levothyroxine 175 mcg (0.175 mg) oral tablet 1 tablet = 175 mcg, By Mouth, Daily, # 90 tablet, 2 Refills, Maintenance, 06/17/24 1:48:00 PM EST, Tablet, [facility][id number], Partial fill [...] Refills, Maintenance, 02/27/23 10:43:00 AM EDT, [id number], Partial fill [...] Maintenance, 03/28/24 7:37:00 AM EDT, [facility][id number], 157.5, cm, 02/12/24 14:48:00 EDT, Height, 145.9, kg, 05/22/23 7:39:00 EDT, Dry Weight Start Date: 03/28/24 Status: Ordered Quantity: 30.0 Unit: tablet Repeat number: 2 metFORMIN 500 mg oral tablet, extended release 1 tablet = 500 mg, By Mouth, Daily, # 90 tablet, 1 Refills, Maintenance, 01/22/24 11:02:00 AM EDT, ER Tablet, [facility] #2025, Partial fill [...] may filll this prescription for fewer pills. [facility], Refills [...] 0 Refills, Maintenance, 06/10/24 2:39:00PM EST, [facility]/pharmacy #[id number], Partial fill [...] Code MRI Safety Implantable Status Assigning Authority [id number] Unknown [id number] Unknown 08/26/24 Unknown Unknown Active GS1 Patient Care team information Care Team Personnel Name: Celestina Trinidad MD Position: [facility] Physician - Primary Care Member Role: PCP Address: [address] [place] [address] Telecom: Name: Hemalatha Lucas RN Position: [facility] RN Member Role: Primary Care Nurse Name: Lauren Mack RN Position: [facility] RN Member Role: Primary Care Nurse Name: Madelaine Ruiz RN Position: [facility] RN Member Role: Primary Care Nurse Name: Lora Santiago RN Position: [facility] SN RN Member Role: Primary Care Nurse Name: Mayco Ro RN Position: [facility] RN Member Role: Primary Care Nurse Name: Heydi Potts RN Position: [facility] RN Member Role: Primary Care Nurse Name: Janice Romano LPN Position: [facility] RN Member Role: Primary Care Nurse Name: Nadya Low RN Position: [facility] RN Member Role: Primary Care Nurse Name: Mirna Greenfield RN Position: [facility] RN Member Role: Primary Care Nurse Name: Nessa Bonlila RN Position: [facility] Registered Mail Clerk Member Role: Primary Care Nurse Care [...]
== END 2024-07-16 15:22 | disposition home or self-care (01) ==
LOC: HO.PMC 14:44
PROVIDERS: PCP Pediatrics; Visit Provider Registered Nurse Emergency
DX: M53.3 Sacrococcygeal disorders, not elsewhere classified (principal); M25.561 Pain in right knee; M25.562 Pain in left knee; M25.551 Pain in right hip; R26.81 Unsteadiness on feet; M48.00 Spinal stenosis, site unspecified
CPT/HCPCS: 99443

== ENCOUNTER 2024-08-05 06:22 | Outpatient (REF) | payer MEDICARE, MEDICAID, SELFPAY ==
--- NOTE | ~2024-08-05 | FL_ITS ---
EXAMINATION: FLUOROSCOPY GUIDANCE FOR NEEDLE PLACEMENT CLINICAL INFORMATION: M54.50 - Low back pain, unspecified COMPARISON: None available. TECHNIQUE: Intraoperative fluoroscopy guidance for treatment. 2 images provided, right hip. Effusion present. Patient's positioning, left side down. FINDINGS: Nondiagnostic fluoroscopy guidance for treatment, right hip. FLUOROSCOPY TIME: 0.3 minutes. DOSE AREA PRODUCT: 10.7 uGy-m2 (microgray-meter squared) FL/FL guidance in treatment room IMPRESSION: Intraoperative fluoroscopy guidance for treatment procedure right hip. Electronically signed by: Steve Marrufo MD 08/14/2024 09:29 AM [facility]
--- OUTSIDE RECORDS SUMMARY | 2024-08-05 06:24 | XMS_ITS | Continuity of Care Document ---
Author Organization [facility] Address [address] [place] [address]- Care Team Providers Care Continuous Improvement Black Belt Name Role Phone Vivi HENNING, Celestina Givens Primary Care Physician Encounter [facility] Date(s): 06/20/24 - 07/20/24 [facility] [address] [place] [address]- Encounter Type: Triage Allergies, Adverse Reactions, Alerts [...] 08/21/22 Given tetanus/diphtheria/pertussis, acel(Tdap) 7 08/13/12 Given [id number]-IiE-3vWJT 12y+ bivalent booster vax 06/14/22 Recorded SARS-CoV-2 mRNA (olwypxo-szqv-cpufv) vax 02/14/22 Recorded SARS-CoV-2 (COVID-19) mRNA BNT-162b2 vac 05/06/21 Given SARS-CoV-2 (COVID-19) mRNA BNT-162b2 vac 11/04/20 Recorded SARS-CoV-2 (COVID-19) mRNA BNT-162b2 vac 10/14/20 Recorded pneumococcal 23-valent vaccine 8 04/07/19 Given 1Result Comment: screening negative 2Result Comment: [facility]# [id number] 3Result Comment: [05/25/2018] [employer] lot number [id number] exp 01/26/2019 [facility] 13849-192-16 4Result Comment: [08/20/2017] [facility] 47435-689-21 5Admin Note: VIM dated 01/29/12 GIVEN TODAY 6Result Comment: [facility]# [id number] 7Admin Note: VIM dated 08/22/11 GIVEN TODAY 8Result Comment: [facility]#[id number] Medications acetaminophen 500 mg oral capsule 2 [...] PM EDT, [facility], [facility] Refills, Maintenance, 07/03/24 12:05:00 PM EST, [facility] STORE 18615, 25, APPLY TO AFFECTED AREA 4 TIMES [...] 0 Refills, Maintenance, 02/28/21 4:31:00 PM EDT, [place], [facility], Partial fill upon patient request [...] AM EDT, Route to Pharmacy Electronically, [facility] STORE 41523,157.5, cm, 01/22/24 10:31:00 EDT, Height, 145.9, kg, 05/22/23 7:39:00 EDT, Dry Weight Start Date: 01/25/24 Status: Ordered Quantity: 90.0 Unit: capsule Repeat number: 1 FLUoxetine 20 mg oral capsule See Instructions, TAKE 1 CAPSULE BY MOUTH EVERY DAY, # 90 capsule, Refills 1, Maintenance, 06/20/2411:48:00 AM EST, Instructions Replace Required Details, Route to Pharmacy Electronically, [facility] [id number], 157.5, cm, 06/16/24 14:53:00 EST, Height, 145.9, kg, 05/22/23 7:39:00 EDT, Dry Weight Start Date: 06/20/24 Status: Ordered Quantity: 90.0 Unit: capsule Repeat number: 1 gabapentin 300 mg oral capsule 600 mg, 2, capsule, By Mouth, 3 times a day, # 180 capsule, Refills 3, Tot. Refills 3, Maintenance,08/25/22 10:35:00 PM EST, [facility] Pharmacy Electronically, [facility] Refills, Maintenance, 12/28/23 4:17:00 PM EDT, [facility] STORE [id number], 157.5, cm, 10/18/23 15:15:00 EDT, Height, 145.9, kg, 05/22/23 7:39:00 EDT, Dry Weight Start Date: 12/28/23 Status: Ordered Quantity: 90.0 Unit: tablet Repeat number: 1 levothyroxine 175 mcg (0.175 mg) oral tablet 1 tablet = 175 mcg, By Mouth, Daily, # 90 tablet, 2 Refills, Maintenance, 06/17/24 1:48:00 PM EST, Tablet, [facility]/pharmacy #2025, Partial fill [...] Refills, Maintenance, 02/27/23 10:43:00 AM EDT, [facility]/pharmacy #2025, Partial fill [...] Refills, Maintenance, 03/28/24 7:37:00 AM EDT, [facility]/pharmacy #2025, 157.5, cm, 02/12/24 14:48:00 EDT, Height, 145.9, kg, 05/22/23 7:39:00 EDT, Dry Weight Start Date: 03/28/24 Status: Ordered Quantity: 30.0 Unit: tablet Repeat number: 2 metFORMIN 500 mg oral tablet, extended release 1 tablet = 500 mg, By Mouth, Daily, # 90 tablet, 1 Refills, Maintenance, 01/22/24 11:02:00 AM EDT, ER Tablet, [facility]/pharmacy #2025, Partial fill [...] may filll this [facility] pills[facility], # [facility], Refills 0, Tot. Refills 0, Maintenance, Pain , Severe, 06/30/24 5:17:00 PM EST, Route to Pharmacy Electronically, [facility]/pharmacy #2024, Partial fill upon patient request, [...] 0 Refills, Maintenance, 07/08/24 4:50:00PM EST, [facility]/pharmacy #2025, Partial fill [...] Code MRI Safety Implantable Status Assigning Authority [id number] Unknown [id number] Unknown 08/26/24 Unknown Unknown Active GS1 Patient Care team information Care Team Personnel Name: Celestina Trinidad MD Position: [facility] Physician - Primary Care Member Role: PCP Address: [address] [place] [address] Telecom: Name: Hemalatha Lucas RN [facility] Nessa Bonilla RN Position: [facility] Powdered Sugar Supervisor Member Role: Primary Care Nurse Care [...]
--- OUTSIDE RECORDS SUMMARY | 2024-08-05 06:24 | XMS_ITS | Continuity of Care Document ---
Author Organization [facility] Address [address] [place] [address]- Care Team Providers Care Seasonal Driver Name Role Phone Vivi HENNING, Celestina Givens Primary Care Physician Encounter [facility] Date(s): 07/01/24 - 07/31/24 [facility] [address] [place] [address]- Encounter Type: Triage Allergies, Adverse Reactions, Alerts [...] 08/21/22 Given tetanus/diphtheria/pertussis, acel(Tdap) 7 08/13/12 Given [id number]-HiM-9vZQM 12y+ bivalent booster vax 06/14/22 Recorded SARS-CoV-2 mRNA (odadolr-pzea-iebpv) vax 02/14/22 Recorded SARS-CoV-2 (COVID-19) mRNA BNT-162b2 vac 05/06/21 Given SARS-CoV-2 (COVID-19) mRNA BNT-162b2 vac 11/04/20 Recorded SARS-CoV-2 (COVID-19) mRNA BNT-162b2 vac 10/14/20 Recorded pneumococcal 23-valent vaccine 8 04/07/19 Given 1Result Comment: screening negative 2Result Comment: [facility]note 3]# [id number] 3Result Comment: [05/25/2018] [employer] lot number [id number] exp 01/26/2019 [facility][note 3] 76100-443-36 4Result Comment: [08/20/2017] [facility][note 3] [id number] 5Admin Note: VIM dated 01/29/12 GIVEN TODAY 6Result Comment: [facility]# [id number] 7Admin Note: VIM dated 08/22/11 GIVEN TODAY 8Result Comment: [facility]#[id number] Medications acetaminophen 500 mg oral capsule 2 [...] 4:46:00 PM EDT, [facility], [facility] 1 Refills, Maintenance, 07/03/24 12:05:00 PM EST, [facility] STORE 37300, 25, APPLY TO AFFECTED AREA 4 TIMES [...] Maintenance, 02/28/21 4:31:00 PM EDT, [place], [facility], Partial fill upon patient request [...] DAILY, # 90 capsule, Refills 1, Maintenance, 07/22/24 12:28:00 PM EST, Route to Pharmacy Electronically, [facility] [id number], 157.5, cm, 06/16/24 14:53:00 EST, Height, 145.9, kg, 05/22/23 7:39:00 EDT, Dry Weight Start Date: 07/22/24 Status: Ordered Quantity: 90.0 Unit: capsule Repeat number: 1 gabapentin 300 mg oral capsule 600 mg, 2, capsule, By Mouth, 3 times a day, # 180 capsule, Refills 3, Tot. Refills 3, Maintenance,08/25/22 10:35:00 PM EST, Route to Pharmacy Electronically, [facility]/pharmacy #5, Partial fill upon patient [...] 1 Refills, Maintenance, 12/28/23 4:17:00 PM EDT, [facility] ST[facility] 02198, 157.5, cm, 10/18/23 15:15:00 EDT, Height, 145.9, kg, 05/22/23 7:39:00 EDT, Dry Weight Start Date: 12/28/23 Status: Ordered Quantity: 90.0 Unit: tablet Repeat number: 1 levothyroxine 175 mcg (0.175 mg) oral tablet 1 tablet = 175 mcg, By Mouth, Daily, # 90 tablet, 2 Refills, Maintenance, 06/17/24 1:48:00 PM EST, Tablet, [facility]/pharmacy #202, Partial fill upon [...] 0 Refills, Maintenance, 02/27/23 10:43:00 AM EDT, [facility]/pharmacy #202, Partial fill [...] 1 Refills, Maintenance, 03/28/24 7:37:00 AM EDT, [facility]/pharmacy #202, 157.5, cm, 02/12/24 14:48:00 EDT, Height, 145.9, kg, 05/22/23 7:39:00 EDT, Dry Weight Start Date: 03/28/24 Status: Ordered Quantity: 30.0 Unit: tablet Repeat number: 2 metFORMIN 500 mg oral tablet, extended release 1 tablet = 500 mg, By Mouth, Daily, # 90 tablet, 1 Refills, Maintenance, 01/22/24 11:02:00 AM EDT, ER Tablet, [facility]/pharmacy #202, Partial fill upon [...] may filll this prescription for fewer pills. [facility] reviewed, # 20 tablet, Refills 0, Tot. Refills 0, Maintenance, Pain , Severe, 06/30/24 5:17:00 PM EST, Route to Pharmacy Electronically, [facility] Refills, Maintenance, 06/30/24 5:18:00 PM EST, Tablet, [facility]/pharmacy #2024, Partial fill upon [...] Refills, Maintenance, 11/23/23 5:40:00 PM EDT, Capsule, [facility]/pharmacy #2024, Partial fill upon [...] Refills, Maintenance, 06/23/24 12:55:00 PM EST, Solution, [facility]/pharmacy #202, Partial fill upon [...] tablet, 0 Refills, Maintenance, 07/08/24 4:50:00PM EST, [facility]/pharmacy #2025, Partial fill upon [...] Code MRI Safety Implantable Status Assigning Authority [id number] Unknown [id number] Unknown 08/26/24 Unknown Unknown Active GS1 Patient Care team information Care Team Personnel Name: Celestina Trinidad MD Position: [facility] Physician - Primary Care Member Role: PCP Address: [address] [place] [address] Telecom: Name: Hemalatha Lucas RN Position: [facility] RN Member Role: Primary Care Nurse Name: Lauren Mack RN Position: [facility] RN Member Role: Primary Care Nurse Name: Madelaine Ruiz RN Position: [facility] RN Member Role: Primary Care Nurse Name: Lora Santiago RN Position: [facility] SN RN Member Role: Primary Care Nurse Name: Mayco Ro RN Position: [facility] RN Member Role: Primary Care Nurse Name: Heydi Potts RN Position: [facility] SN RN Member Role: Primary Care Nurse Name: Janice Romano LPN Position: [facility] RN Member Role: Primary Care Nurse Name: Nadya Low RN Position: [facility] RN Member Role: Primary Care Nurse Name: Mirna Greenfield RN Position: [facility] RN Member Role: Primary Care Nurse Name: Nessa Bonilla RN Position: [facility] Investigation Specialist Member Role: Primary Care Nurse Care Team Related Persons Name: DINESH SARGENT Name: BON DE Insurance Providers Guarantor name: JORGE ALBERTOKUSH SAHU Health Plan Information #: 1 Payer: MEDICARE PART B OUTPT Member Number: NA Policy Number: NA Group Number: NA Health Plan Information #: 2 [facility] Member Number: NA Policy Number: NA Group Number: NA
--- OUTSIDE RECORDS SUMMARY | 2024-08-05 06:24 | XMS_ITS | Continuity of Care Document ---
Author Organization [facility] Address [address] [place] [address]- Care Team Providers Care Program Assistant Name Role Phone Vivi HENNING, Celestina Givens Primary Care Physician Encounter [facility] Date(s): 06/17/24 - 07/17/24 [facility] [address] [place], [place] [address] Encounter Type: Triage Allergies, Adverse Reactions, Alerts [...] 08/21/22 Given tetanus/diphtheria/pertussis, acel(Tdap) 7 08/13/12 Given MTRP-OeH-6mILE 12y+ bivalent booster vax 06/14/22 Recorded SARS-CoV-2 mRNA (mfcoyit-njij-pyrtw) vax 02/14/22 Recorded SARS-CoV-2 (COVID-19) mRNA BNT-162b2 vac 05/06/21 Given SARS-CoV-2 (COVID-19) mRNA BNT-162b2 vac 11/04/20 Recorded SARS-CoV-2 (COVID-19) mRNA BNT-162b2 vac 10/14/20 Recorded pneumococcal 23-valent vaccine 8 04/07/19 Given 1Result Comment: screening negative 2Result Comment: [facility]# [id number] 3Result Comment: [05/25/2018] [employer] lot number [id number] exp 01/26/2019 [facility] 40528-246-12 4Result Comment: [08/20/2017] [facility] [id number] 5Admin Note: VIM dated 01/29/12 GIVEN TODAY 6Result Comment: [facility]# [id number] 7Admin Note: VIM dated 08/22/11 GIVEN TODAY 8Result Comment: [facility]#[id number] Medications acetaminophen 500 mg oral capsule 2 [...] 1 Refills, Soft Stop, :28:00 PM EDT, [facility]/pharmacy #5, Partial fill upon patient request [...] 4:46:00 PM EDT, Route to Pharmacy Electronically, [facility]/pharmacy [...] 1 Refills, Maintenance, 07/03/24 12:05:00 PM EST, [facility] STORE 10029, 25, APPLY TO AFFECTED AREA 4 TIMES [...] 0 Refills, Maintenance, 02/28/21 4:31:00 PM EDT, [place], [facility], Partial fill upon patient request [...] 9:11:00 AM EDT, Route to Pharmacy Electronically, [facility] STORE 44590,157.5, cm, 01/22/24 10:31:00 EDT, Height, 145.9, kg, 05/22/23 7:39:00 EDT, Dry Weight Start Date: 01/25/24 Status: Ordered Quantity: 90.0 Unit: capsule Repeat number: 1 FLUoxetine 20 mg oral capsule See Instructions, TAKE 1 CAPSULE BY MOUTH EVERY DAY, # 90 capsule, Refills 1, Maintenance, 06/20/2411:48:00 AM EST, Instructions Replace Required Details, Route to Pharmacy Electronically, [facility] [id number], 157.5, cm, 06/16/24 14:53:00 EST, Height, 145.9, kg, 05/22/23 7:39:00 EDT, Dry Weight Start Date: 06/20/24 Status: Ordered Quantity: 90.0 Unit: capsule Repeat number: 1 gabapentin 300 mg oral capsule 600 mg, 2, capsule, By Mouth, 3 times a day, # 180 capsule, Refills 3, Tot. Refills 3, Maintenance,08/25/22 10:35:00 PM EST, Route to Pharmacy Electronically, [facility]/pharmacy [...] 1 Refills, Maintenance, 12/28/23 4:17:00 PM EDT, [facility] STORE 52991, 157.5, cm, 10/18/23 15:15:00 EDT, Height, 145.9, kg, 05/22/23 7:39:00 EDT, Dry Weight Start Date: 12/28/23 Status: Ordered Quantity: 90.0 Unit: tablet Repeat number: 1 levothyroxine 175 mcg (0.175 mg) oral tablet 1 tablet = 175 mcg, By Mouth, Daily, # 90 tablet, 2 Refills, Maintenance, 06/17/24 1:48:00 PM EST, Tablet, [facility]/pharmacy #2025, Partial fill upon patient [...] 0 Refills, Maintenance, 02/27/23 10:43:00 AM EDT, [facility]/pharmacy #2025, Partial fill upon [...] 1 Refills, Maintenance, 03/28/24 7:37:00 AM EDT, [facility]/pharmacy #2025, 157.5, cm, 02/12/24 14:48:00 EDT, Height, 145.9, kg, 05/22/23 7:39:00 EDT, Dry Weight Start Date: 03/28/24 Status: Ordered Quantity: 30.0 Unit: tablet Repeat number: 2 metFORMIN 500 mg oral tablet, extended release 1 tablet = 500 mg, By Mouth, Daily, # 90 tablet, 1 Refills, Maintenance, 01/22/24 11:02:00 AM EDT, ER Tablet, [facility]/pharmacy #2024, Partial [...] [facility], Refills 0, Tot. Refills 0, Maintenance, Pain , Severe, 06/30/24 5:17:00 PM EST, Route to Pharmacy Electronically, [facility]/pharmacy #2024, Partial fill upon patient request, 157.5, [...] Maintenance, 06/23/24 12:55:00 PM EST, [place], [facility], [facility] fill upon patient request [...] tablet, 0 Refills, Maintenance, 07/08/24 4:50:00PM EST, [facility]/pharmacy #5, Partial fill upon patient request [...] Code MRI Safety Implantable Status Assigning Authority [id number] Unknown [id number] Unknown 08/26/24 Unknown Unknown Active GS1 Patient Care team information Care Team Personnel Name: Celestina Trinidad MD Position: [facility] Physician - Primary Care Member Role: PCP Address: [address] [place] [address] Telecom: Name: Hemalatha Lucas RN Position: [facility] RN Member Role: Primary Care Nurse Name: Lauren Mack RN Position: [facility] RN Member [...] RN Position: [facility] Program Writer Member Role: Primary Care Nurse Care [...]
--- OUTSIDE RECORDS SUMMARY | 2024-08-05 06:24 | XMS_ITS | Continuity of Care Document ---
Author Organization [facility] Address [address] [place] [address]- Care Team Providers Care Wood Mechanist Name Role Phone Vivi HENNING, Celestina Givens Primary Care Physician Encounter [facility] Date(s): 06/30/24 - 07/30/24 [facility] [address] [place] [address]- Encounter Type: Triage Allergies, Adverse Reactions, Alerts [...] 08/21/22 Given tetanus/diphtheria/pertussis, acel(Tdap) 7 08/13/12 Given RKGW-KbC-3pYZM 12y+ bivalent booster vax 06/14/22 Recorded SARS-CoV-2 mRNA (eslbcnv-rzin-bhxtz) vax 02/14/22 Recorded SARS-CoV-2 (COVID-19) mRNA BNT-162b2 vac 05/06/21 Given SARS-CoV-2 (COVID-19) mRNA BNT-162b2 vac 11/04/20 Recorded SARS-CoV-2 (COVID-19) mRNA BNT-162b2 vac 10/14/20 Recorded pneumococcal 23-valent vaccine 8 04/07/19 Given 1Result Comment: screening negative 2Result Comment: [facility]# 10974-274-12 3Result Comment: [05/25/2018] [facility] lot number [id number] exp 01/26/2019 [facility] 71398-357-01 4Result Comment: [08/20/2017] [facility] [id number] 5Admin Note: VIM dated 01/29/12 GIVEN TODAY 6Result Comment: [facility]# [id number] 7Admin Note: VIM dated 08/22/11 GIVEN TODAY 8Result Comment: [facility]#[id number] Medications acetaminophen 500 mg oral capsule 2 [...] 4:46:00 PM EDT, Route to Pharmacy Electronically, [facility]/pharmacy #2024, Partial fill upon patient request [...] 1 Refills, Maintenance, 07/03/24 12:05:00 PM EST, [facility] STORE 19611, 25, APPLY TO AFFECTED AREA 4 TIMES [...] 0 Refills, Maintenance, 02/28/21 4:31:00 PM EDT, [place], [facility], Partial fill upon patient request [...] 12:28:00 PM EST, Route to Pharmacy Electronically, [facility] STORE 26927, 157.5, cm, 06/16/24 14:53:00 EST, Height, 145.9, kg, 05/22/23 7:39:00 EDT, Dry Weight Start Date: 07/22/24 Status: Ordered Quantity: 90.0 Unit: capsule Repeat number: 1 gabapentin 300 mg oral capsule 600 mg, 2, capsule, By Mouth, 3 times a day, # 180 capsule, Refills 3, Tot. Refills 3, Maintenance,08/25/22 10:35:00 PM EST, Route to Pharmacy Electronically, [facility]/pharmacy #5, Partial fill upon patient request [...] 1 Refills, Maintenance, 12/28/23 4:17:00 PM EDT, [facility] STORE 31168, 157.5, cm, 10/18/23 15:15:00 EDT, Height, 145.9, kg, 05/22/23 7:39:00 EDT, Dry Weight Start Date: 12/28/23 Status: Ordered Quantity: 90.0 Unit: tablet Repeat number: 1 levothyroxine 175 mcg (0.175 mg) oral tablet 1 tablet = 175 mcg, By Mouth, Daily, # 90 tablet, 2 Refills, Maintenance, 06/17/24 1:48:00 PM EST, Tablet, [facility]/pharmacy #202, Partial fill upon patient [...] 0 Refills, Maintenance, 02/27/23 10:43:00 AM EDT, [facility]/pharmacy #202, Partial fill upon [...] 1 Refills, Maintenance, 03/28/24 7:37:00 AM EDT, [facility]/pharmacy #202, 157.5, cm, 02/12/24 14:48:00 EDT, Height, 145.9, kg, 05/22/23 7:39:00 EDT, Dry Weight Start Date: 03/28/24 Status: Ordered Quantity: 30.0 Unit: tablet Repeat number: 2 metFORMIN 500 mg oral tablet, extended release 1 tablet = 500 mg, By Mouth, Daily, # 90 tablet, 1 Refills, Maintenance, 01/22/24 11:02:00 AM EDT, ER Tablet, [facility]/pharmacy #202, Partial fill upon patient [...] may filll this prescription for fewer pills. [facility] reviewed, # 20 tablet, Refills 0, Tot. Refills 0, Maintenance, Pain , Severe, 06/30/24 5:17:00 PM EST, Route to Pharmacy Electronically, [facility]/pharmacy #2024, Partial fill upon patient request, [...] Refills, Maintenance, 06/30/24 5:18:00 PM EST, Tablet, [facility]/pharmacy #2024, Partial fill upon patient request [...] Refills, Maintenance, 11/23/23 5:40:00 PM EDT, Capsule, [facility]/pharmacy #2024, Partial fill upon patient request [...] Refills, Maintenance, 06/23/24 12:55:00 PM EST, Solution, [facility]/pharmacy #202, Partial fill upon patient [...] tablet, 0 Refills, Maintenance, 07/08/24 4:50:00PM EST, [facility]/pharmacy #2025, Partial fill upon patient [...] Code MRI Safety Implantable Status Assigning Authority [id number] Unknown [id number] Unknown 08/26/24 Unknown Unknown Active GS1 Patient Care team information Care Team Personnel Name: Celestina Trinidad MD Position: [facility] Physician - Primary Care Member Role: PCP Address: [address] [place] [address] Telecom: Name: Hemalatha Lucas RN Position: [facility] RN Member Role: Primary Care Nurse Name: Lauren Mack RN Position: [facility] RN Member Role: Primary Care Nurse Name: Madelaine Ruiz RN Position: [facility] RN Member Role: Primary Care Nurse Name: Lora Santiago RN Position: [facility] SN RN Member Role: Primary Care Nurse Name: Mayco Ro RN Position: [facility] RN Member Role: Primary Care Nurse Name: Heydi Potts RN Position: [facility] SN RN Member Role: Primary Care Nurse Name: Janice Romano LPN Position: [facility] RN Member Role: Primary Care Nurse Name: Nadya Low RN Position: [facility] RN Member Role: Primary Care Nurse Name: Mirna Greenfield RN Position: [facility] RN Member Role: Primary Care Nurse Name: Nessa Bonilla RN Position: [facility] Cold Roller Member Role: Primary Care Nurse Care Team Related Persons Name: DINESH SARGENT Name: BON DE Insurance Providers Guarantor name: JORGE ALBERTOKUSH SAHU Health Plan Information #: 1 Payer: MEDICARE PART B OUTPT Member Number: NA Policy Number: NA Group Number: NA Health Plan Information #: 2 [facility] Member Number: NA Policy Number: NA Group Number: NA
--- OUTSIDE RECORDS SUMMARY | 2024-08-05 06:24 | XMS_ITS | Continuity of Care Document ---
Author Organization [facility] Address [address] [place] [address]- Care Team Providers Care Aquatics Manager Name Role Phone Vivi HENNING, Celestina Givens Primary Care Physician Encounter [facility] Date(s): 07/02/24 - 08/01/24 [facility] [address] [place] [address]- Encounter Type: Triage Allergies, Adverse Reactions, Alerts [...] 08/21/22 Given tetanus/diphtheria/pertussis, acel(Tdap) 7 08/13/12 Given WQAS-QcF-9pAVJ 12y+ bivalent booster vax 06/14/22 Recorded SARS-CoV-2 mRNA (yqvtyhs-onds-fsxvl) vax 02/14/22 Recorded SARS-CoV-2 (COVID-19) mRNA BNT-162b2 vac 05/06/21 Given SARS-CoV-2 (COVID-19) mRNA BNT-162b2 vac 11/04/20 Recorded SARS-CoV-2 (COVID-19) mRNA BNT-162b2 vac 10/14/20 Recorded pneumococcal 23-valent vaccine 8 04/07/19 Given 1Result Comment: screening negative 2Result Comment: [facility]# [id number] 3Result Comment: [05/25/2018] [employer]irus lot number [id number] exp 01/26/2019 [facility] [id number] 4Result Comment: [08/20/2017] [facility] [phone] 5Admin Note: VIM dated 01/29/12 GIVEN TODAY 6Result Comment: [facility]# [id number] 7Admin Note: VIM dated 08/22/11 GIVEN TODAY 8Result Comment: [facility]#[id number] Medications acetaminophen 500 mg oral capsule 2 [...] Refills, Soft Stop, :28:00 PM EDT, [facility] Partial fill upon patient request if the [...] 4:46:00 PM EDT, Route to Pharmacy Electronically, [facility]/pharmacy #2024, Partial fill upon [...] 1 Refills, Maintenance, 07/03/24 12:05:00 PM EST, [facility] STORE 34199, 25, APPLY TO AFFECTED AREA 4 TIMES [...] 0 Refills, Maintenance, 02/28/21 4:31:00 PM EDT, [place], [facility], Partial fill upon patient request [...] 12:28:00 PM EST, Route to Pharmacy Electronically, [email or web address] STORE 78301, 157.5, cm, 06/16/24 14:53:00 EST, Height, 145.9, kg, 05/22/23 7:39:00 EDT, Dry Weight Start Date: 07/22/24 Status: Ordered Quantity: 90.0 Unit: capsule Repeat number: 1 gabapentin 300 mg oral capsule 600 mg, 2, capsule, By Mouth, 3 times a day, # 180 capsule, Refills 3, Tot. Refills 3, Maintenance,08/25/22 10:35:00 PM EST, Route to Pharmacy Electronically, [facility]/pharmacy #5, Partial fill upon patient [...] 1 Refills, Maintenance, 12/28/23 4:17:00 PM EDT, [email or web address] STORE 08573, 157.5, cm, 10/18/23 15:15:00 EDT, Height, 145.9, kg, 05/22/23 7:39:00 EDT, Dry Weight Start Date: 12/28/23 Status: Ordered Quantity: 90.0 Unit: tablet Repeat number: 1 levothyroxine 175 mcg (0.175 mg) oral tablet 1 tablet = 175 mcg, By Mouth, Daily, # 90 tablet, 2 Refills, Maintenance, 06/17/24 1:48:00 PM EST, Tablet, [facility]/pharmacy #202, Partial fill upon [...] 0 Refills, Maintenance, 02/27/23 10:43:00 AM EDT, [facility]/pharmacy #202, Partial fill upon [...] 1 Refills, Maintenance, 03/28/24 7:37:00 AM EDT, [facility]/pharmacy #202, 157.5, cm, 02/12/24 14:48:00 EDT, Height, 145.9, kg, 05/22/23 7:39:00 EDT, Dry Weight Start Date: 03/28/24 Status: Ordered Quantity: 30.0 Unit: tablet Repeat number: 2 metFORMIN 500 mg oral tablet, extended release 1 tablet = 500 mg, By Mouth, Daily, # 90 tablet, 1 Refills, Maintenance, 01/22/24 11:02:00 AM EDT, ER Tablet, [facility]/pharmacy #202, Partial fill upon [...] may filll this prescription for fewer pills. [facility] reviewed, # 20 tablet, Refills 0, Tot. Refills 0, Maintenance, Pain , Severe, 06/30/24 5:17:00 PM EST, Route to Pharmacy Electronically, [facility]/pharmacy #2024, Partial fill upon [...] Refills, Maintenance, 06/30/24 5:18:00 PM EST, Tablet, [facility]/pharmacy #2024, Partial fill upon [...] Refills, Maintenance, 11/23/23 5:40:00 PM EDT, Capsule, [facility]/pharmacy #2024, Partial fill upon [...] Refills, Maintenance, 06/23/24 12:55:00 PM EST, Solution, [facility]/pharmacy #202, Partial fill upon [...] tablet, 0 Refills, Maintenance, 07/08/24 4:50:00PM EST, [facility]/pharmacy #2025, Partial fill upon patient [...] Code MRI Safety Implantable Status Assigning Authority [id number] Unknown [id number] Unknown 08/26/24 Unknown Unknown Active GS1 Patient Care team information Care Team Personnel Name: Celestina Trinidad MD Position: [facility] Physician - Primary Care Member Role: PCP Address: [address] [place] [address] Telecom: Name: Hemalatha Lucas RN Position: [facility] RN Member Role: Primary Care Nurse Name: Lauren Mack RN Position: [facility] RN [...] Bonilla RN Position: [facility] Wine Bottle Inspector Member Role: Primary Care Nurse Care Team Related Persons Name: DINESH SARGENT Name: BON DE Insurance Providers Guarantor name: JORGE ALBERTOKUSH SAHU Health Plan Information #: 1 Payer: MEDICARE PART B OUTPT Member Number: NA Policy Number: NA Group Number: NA Health Plan Information #: 2 [facility] Member Number: NA Policy Number: NA Group Number: NA
--- OUTSIDE RECORDS SUMMARY | 2024-08-05 06:24 | XMS_ITS | Continuity of Care Document ---
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 Name Role Phone Vivi HENNING, Celestina Givens Primary Care Physician Encounter [facility] Date(s): 07/02/24 - 08/01/24 [facility] [address] [place] [address]- Encounter Type: Triage Allergies, Adverse Reactions, Alerts [...] 08/21/22 Given tetanus/diphtheria/pertussis, acel(Tdap) 7 08/13/12 Given PFWD-NqY-9iSED 12y+ bivalent booster vax 06/14/22 Recorded SARS-CoV-2 mRNA (vvcvaol-samq-iabli) vax 02/14/22 Recorded SARS-CoV-2 (COVID-19) mRNA BNT-162b2 vac 05/06/21 Given SARS-CoV-2 (COVID-19) mRNA BNT-162b2 vac 11/04/20 Recorded SARS-CoV-2 (COVID-19) mRNA BNT-162b2 vac 10/14/20 Recorded pneumococcal 23-valent vaccine 8 04/07/19 Given 1Result Comment: screening negative 2Result Comment: [facility]# [id number] 3Result Comment: [05/25/2018] [employer] lot number [id number] exp 01/26/2019 [facility] [id number] 4Result Comment: [08/20/2017] [facility] [id number] 5Admin Note: VIM dated 01/29/12 GIVEN TODAY 6Result Comment: [facility]# [id number] 7Admin Note: VIM dated 08/22/11 GIVEN TODAY 8Result Comment: [facility]#[id number] Medications acetaminophen 500 mg oral capsule 2 [...] PM EDT, Route to Pharmacy Electronically, [facility]/pharmacy #2024, Partial fill [...] Refills, Maintenance, 07/03/24 12:05:00 PM EST, [facility] STORE 62164, 25, APPLY TO AFFECTED AREA 4 TIMES [...] 0 Refills, Maintenance, 02/28/21 4:31:00 PM EDT, [place], [facility], Partial fill upon patient request [...] 12:28:00 PM EST, Route to Pharmacy Electronically, [facility] STORE 16551, 157.5, cm, 06/16/24 14:53:00 EST, Height, 145.9, kg, 05/22/23 7:39:00 EDT, Dry Weight Start Date: 07/22/24 Status: Ordered Quantity: 90.0 Unit: capsule Repeat number: 1 gabapentin 300 mg oral capsule 600 mg, 2, capsule, By Mouth, 3 times a day, # 180 capsule, Refills 3, Tot. Refills 3, Maintenance,08/25/22 10:35:00 PM EST, Route to Pharmacy Electronically, [facility]/pharmacy #5, Partial fill upon patient request if [...] 1 Refills, Maintenance, 12/28/23 4:17:00 PM EDT, [facility] STORE 07733, 157.5, cm, 10/18/23 15:15:00 EDT, Height, 145.9, kg, 05/22/23 7:39:00 EDT, Dry Weight Start Date: 12/28/23 Status: Ordered Quantity: 90.0 Unit: tablet Repeat number: 1 levothyroxine 175 mcg (0.175 mg) oral tablet 1 tablet = 175 mcg, By Mouth, Daily, # 90 tablet, 2 Refills, Maintenance, 06/17/24 1:48:00 PM EST, Tablet, [facility]/pharmacy #202, Partial fill [...] Refills, Maintenance, 02/27/23 10:43:00 AM EDT, [facility]/pharmacy #202, Partial [...] Refills, Maintenance, 03/28/24 7:37:00 AM EDT, [facility]/pharmacy #202, 157.5, cm, 02/12/24 14:48:00 EDT, Height, 145.9, kg, 05/22/23 7:39:00 EDT, Dry Weight Start Date: 03/28/24 Status: Ordered Quantity: 30.0 Unit: tablet Repeat number: 2 metFORMIN 500 mg oral tablet, extended release 1 tablet = 500 mg, By Mouth, Daily, # 90 tablet, 1 Refills, Maintenance, 01/22/24 11:02:00 AM EDT, ER Tablet, [facility]/pharmacy #202, Partial fill [...] may filll this prescription for fewer pills. [facility] reviewed, # 20 tablet, Refills 0, Tot. Refills 0, Maintenance, Pain , Severe, 06/30/24 5:17:00 PM EST, Route to Pharmacy Electronically, [facility]/pharmacy #2024, Partial fill upon patient request, 157.5, [...] Refills, Maintenance, 06/30/24 5:18:00 PM EST, Tablet, [facility]/pharmacy #2024, [...] Refills, Maintenance, 11/23/23 5:40:00 PM EDT, Capsule, [facility]/pharmacy #2024, Partial fill [...] Refills, Maintenance, 06/23/24 12:55:00 PM EST, Solution, [facility]/pharmacy #202, Partial fill [...] 0 Refills, Maintenance, 07/08/24 4:50:00PM EST, [facility]/pharmacy #2025, Partial fill [...] Code MRI Safety Implantable Status Assigning Authority [id number] Unknown [id number] Unknown 08/26/24 Unknown Unknown Active GS1 Patient Care team information Care Team Personnel Name: Celestina Trinidad MD Position: [facility] Physician - Primary Care Member Role: PCP Address: [address] [place] [address] Telecom: Name: Hemalatha Lucas RN Position: [facility] RN Member Role: Primary Care Nurse Name: Lauren Mack RN Position: [facility] RN Member Role: Primary Care Nurse Name: Madelaine Ruiz RN Position: [facility] RN Member Role: Primary Care Nurse Name: Lora Santiago RN Position: [facility] SN RN Member Role: Primary Care Nurse Name: Mayco Ro RN Position: [facility] RN Member Role: Primary Care Nurse Name: Heydi Potts RN Position: [facility] SN [...] Nessa Bonilla RN Position: [facility] Home Appliance Technician Member Role: Primary Care Nurse Care Team Related Persons Name: DINESH SARGENT Name: BON DE Insurance Providers Guarantor name: JORGE ALBERTOKUSH SAHU Health Plan Information #: 1 Payer: MEDICARE PART B OUTPT Member Number: NA Policy Number: NA Group Number: NA Health Plan Information #: 2 [facility] Member Number: NA Policy Number: NA Group Number: NA
--- OUTSIDE RECORDS SUMMARY | 2024-08-05 06:25 | XMS_ITS | Data Portability ---
Author Organization [facility] [email or web address] [facility], [facility], [facility]_[place]_Office Address [address] [place] [id number] Care Team Providers Care Door Puller Name Role Phone YAW FOSTER Primary Care [...] XR, ankle , 3 or more view [facility] Radiol ogy [address] [place] [address], [address] Name: Chon SAHU : [id number] Date of Servic e: [birth year] Acct Number : [id number] Order Number : [id number] Locati on: WORD Report Number : [id number] Servic e: REG REF/ Reques ting Physic jeimy: Flaquito caballero,Car ol Catego ry: ORTHOP EDIC RADIOL OGY [facility] Exam: ANKLE 3 VIEWS Right Access ion #: [id number] VH Signs/ Sympto ms: RIGHT ANKLE [...] is seen with margin al osteop hytes patient safety coordinator iorly. There is no acute fractu re [...] provid ers: Ari caballero, Ari caballero, , [facility] , Ari caballero, , [facility] [address] [place] [address], [address], 02/26/2018 07:00:25 02/22/20 18 02/21/2018 XR, ankle , 3 or more view [facility] Radiol o[facility] [address] [place] [address], [address] Name: Chon SAHU : [id number] Date of Servic e: [birth year]27 Acct Number : [id number] Order Number : [id number] Locati on: WORD Report Number : [id number] Servic e: REG REF/ Reques ting Physic jeimy: Flaquito caballero,Car vikram Catego ry: ORTHOP EDIC RADIOL OGY [facility] Exam: ANKLE 3 VIEWS Left Access ion #: [id number] VH Signs/ Sympto ms: LEFT ANKLE [...] osteop hytes of the tibial plafon d patient safety coordinator iorly. There is no acute fractu re [...] provid ers: Ari caballero, Ari caballero, , [facility] , Ari caballero, , [facility] (Radiology) [address] [place] [address], [address], 02/26/2018 07:00:25 Result Notes None recorded. Problems Name Problem SNOMED Code Status Onset Date Resolution Date Notes Provider Name and Address Organization Details Recorded Time Arthritis 2559170 [facility], [place] [facility] [place], [facility] 8 15:02:06 Asthma 350115839 Active Jeannine Abdirahman [facility], [facility] [place], [facility] 8 15:02:11 Problem Notes None recorded. Procedures Surgical History Date Name Laterality Status Provider Name and Address Organization Details Recorded Time Knee arthroscopy/surg franco completed [facility] [place], [facility] 02/21/2018 15:03:15 Shoulder joint surgery completed [facility] [place], [facility] 02/21/2018 15:03:21 Elbow arthroscopy completed [facility] [place], [facility] 02/21/2018 15:03:26 Unlisted px hands/fingers [facility] 02/21/2018 15:03:30 Imaging Results Imaging Date Name Status LastModified by Organiz [facility] Details LastModified Time 02/21/2018 XR, ankle, 3 or more view completed [facility] (Radiology) [address] [place] [address], [address], 02/26/2018 07:00:25 02/21/2018 XR, ankle, 3 or more view completed [facility] (Radiology) [address] [place] [address], [address], 02/26/2018 07:00:25 Procedure Notes None recorded. Medical [...] Updated DateTime 02/21/2018 160.02 cm 50.5 kg/m2 062512.8 3 g 128 mm[Hg] 84 mm[Hg] Jeannine Gary [facility] [email or web address] [facility] 8 14:49:38 Social History Question Answer Notes LastModified by Organizat ion Details LastModified Time Tobacco Smoking Status Former Smoker Jeannine galo [facility] [email or web address] [facility] 02/21/2018 15:02:54 What Is Your [...] History Condition Response Coronary Artery Disease N Gout N Anxiety/Depression N Blood Transfusion N Hernia N COPD N Lung Disease N Pacemaker N Edema N Deep Vein Thrombosis N Varicose Veins N Orthotics N Arthritis Y Blood Clot N Cancer N Stroke N Leg or Foot Ulcers N Raynaud's Disease N Polio N High Cholesterol N Liver Disease N Organ Transplant N Rheumatoid Arthritis N Dialysis N Fibromyalgia N Foot Deformity N Kidney Disease N Heart Problems N Migraines N Artificial Joints N Thyroid Problems N Anemia N Back [...] Diagnosis/Indication Diagnosis SNOMED-CT Code Diagnosis ICD10 Code Diagnosis Note [id number] ARI JOSEPH MD [facility]_Main_ Office [address] [place] [phone] 02/21/2018 14:31:27 02/21/2018 16:10:28 Ankle pain 839900305 M25.572 M25.571 Health Concerns Section Related Observation LastModified by Organization Detai ls LastModified Time None Recorded Concern Status LastModified by Organization Details LastModified Time None Recorded Advance Directives Directive None Recorded Payers Encounter Date Sequence Insurance Name Policy Number Policy Black Covered Member ID Black Member ID Guarantor Name 02/21/2018 1 [place] [employer] Lilli Sahu [id number] Lilli Sahu 02/21/2018 2 [place] Lilli Sahu [id number] Lilli Sahu Notes Date Note Type Note [...] what was entailed in this. 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 There is [...] discussion after the exam ARI JOSEPH MD [address] [place] [address], [phone], [facility], [facility] 02/21/2018 17:11:12 OBGyn Episode No OBEpisode recorded.
--- OUTSIDE RECORDS SUMMARY | 2024-08-05 06:25 | XMS_ITS | Continuity of Care Document ---
Author Organization [facility] Address [address] [place] [address]- Care Team Providers Care Ratoprinter Name Role Phone Vivi HENNING, Celestina Givens Primary Care Physician Encounter [facility] Date(s): 06/16/24 - 07/16/24 [facility] [address] [place] [address]- Attending Physician: AdmCalixto hernandez Admitting Physician: AdmtrCailxto Referring Physician: Admtr, Ar8 Encounter Type: Triage Allergies, Adverse Reactions, Alerts [...] 08/21/22 Given tetanus/diphtheria/pertussis, acel(Tdap) 7 08/13/12 Given OIXO-NiG-4oZOF 12y+ bivalent booster vax 06/14/22 Recorded SARS-CoV-2 mRNA (wlybvzb-gapl-doobo) vax 02/14/22 Recorded SARS-CoV-2 (COVID-19) mRNA BNT-162b2 vac 05/06/21 Given SARS-CoV-2 (COVID-19) mRNA BNT-162b2 vac 11/04/20 Recorded SARS-CoV-2 (COVID-19) mRNA BNT-162b2 vac 10/14/20 Recorded pneumococcal 23-valent vaccine 8 04/07/19 Given 1Result Comment: screening negative 2Result Comment: [facility]# [id number] 3Result Comment: [05/25/2018] [facility] lot number [id number] exp 01/26/2019 [facility] [id number] 4Result Comment: [08/20/2017] [facility] 95723-962-83 5Admin Note: VIM dated 01/29/12 GIVEN TODAY 6Result Comment: [facility]# 29291-304-35 7Admin Note: VIM dated 08/22/11 GIVEN TODAY 8Result Comment: [facility]#[id number] Medications acetaminophen 500 mg oral capsule 2 [...] 4:46:00 PM EDT, [facility] 1 Refills, Maintenance, 07/03/24 12:05:00 PM EST, [facility] STORE 43272, 25, APPLY TO AFFECTED AREA 4 TIMES [...] Refills, Maintenance, 08/29/23 5:07:00 PM EST, [place], [facility]/pharmacy #5, Partial fill upon patient request if [...] 0 Refills, Maintenance, 02/28/21 4:31:00 PM EDT, [place], [facility], Partial fill upon patient request [...] 9:11:00 AM EDT, Route to Pharmacy Electronically, [facility] STORE 60817,157.5, cm, 01/22/24 10:31:00 EDT, Height, 145.9, kg, 05/22/23 7:39:00 EDT, Dry Weight Start Date: 01/25/24 Status: Ordered Quantity: 90.0 Unit: capsule Repeat number: 1 FLUoxetine 20 mg oral capsule See Instructions, TAKE 1 CAPSULE BY MOUTH EVERY DAY, # 90 capsule, Refills 1, Maintenance, 06/20/2411:48:00 AM EST, Instructions Replace Required Details, Route to Pharmacy Electronically, [facility] [id number], 157.5, cm, 06/16/24 14:53:00 EST, Height, 145.9, kg, 05/22/23 7:39:00 EDT, Dry Weight Start Date: 06/20/24 Status: Ordered Quantity: 90.0 Unit: capsule Repeat number: 1 gabapentin 300 mg oral capsule 600 mg, 2, capsule, By Mouth, 3 times a day, # 180 capsule, Refills 3, Tot. Refills 3, Maintenance,08/25/22 10:35:00 PM EST, Route to Pharmacy Electronically, [facility]/pharmacy #5, Partial fill upon patient [...] 1 Refills, Maintenance, 12/28/23 4:17:00 PM EDT, [facility] STORE 30398, 157.5, cm, 10/18/23 15:15:00 EDT, Height, 145.9, kg, 05/22/23 7:39:00 EDT, Dry Weight Start Date: 12/28/23 Status: Ordered Quantity: 90.0 Unit: tablet Repeat number: 1 levothyroxine 175 mcg (0.175 mg) oral tablet 1 tablet = 175 mcg, By Mouth, Daily, # 90 tablet, 2 Refills, Maintenance, 06/17/24 1:48:00 PM EST, Tablet, [facility]/pharmacy #2025, Partial fill [...] 0 Refills, Maintenance, 02/27/23 10:43:00 AM EDT, [facility]/pharmacy #2025, Partial [...] 1 Refills, Maintenance, 03/28/24 7:37:00 AM EDT, [facility]/pharmacy #2025, 157.5, cm, 02/12/24 14:48:00 EDT, Height, 145.9, kg, 05/22/23 7:39:00 EDT, Dry Weight Start Date: 03/28/24 Status: Ordered Quantity: 30.0 Unit: tablet Repeat number: 2 metFORMIN 500 mg oral tablet, extended release 1 tablet = 500 mg, By Mouth, Daily, # 90 tablet, 1 Refills, Maintenance, 01/22/24 11:02:00 AM EDT, ER Tablet, [facility]/pharmacy #2024, Partial fill [...] may filll this prescription for fewer pills. [facility] # [facility] tablet, Refills 0, Tot. Refills 0, Maintenance, Pain , Severe, 06/30/24 5:17:00 PM EST, Route to [facility] Electron[facility] tablet, 0 Refills, Maintenance, 07/08/24 4:50:00PM EST, [facility], Partial fill upon patient [...] Device Type Site Repair Hernia Umbilical Laparoscopic Debbink MD, Yasemin 05/22/23 Unknown Umbilicus Device Identifier Serial Number Lot or Batch Number Manufacturing Date Expiration Date Distinct Identification Code MRI Safety Implantable Status Assigning Authority [id number] Unknown [id number] Unknown 08/26/24 Unknown Unknown Active GS1 [...] Display: Non BH Lab Results Authored Date: Radiology * Event Display: X-Ray Hip/Groin, Non- BH Authored Date: * Event Display: X-Ray Hip/Groin, Non- BH Authored Date: * Event Display: MRI Spine, Non- BH Authored Date: * Event Display: Non BH Radiology Results Authored Date: * Ada Odell: PERFORM Event Display: Radiology Results Scanned Authored Date: * Fernando Jamison S: PERFORM Event Display: Radiology Results Scanned Authored Date: MR Spine * Event Display: MRI Spine Authored Date: Note * Event Display: Discharge/Transfer Note Hospital Authored Date: * Yesenia Kwon: PERFORM, SIGN, VERIFY Event Display: Patient Education/Instruction Authored Date: [facility] BMP PV Family Clinical Summary Person Information Name JORGE ALBERTO SAHU Age 52 Years 1960 12:00 AM PCP Patrick Mathur MD PCP Reason for Visit: Allergy Info: NKA [...] primary care provider, you may find a [facility] provider by calling [facility] [employer] at [phone]. Patient Education Information Follow-up Details: Patient Education Material: Please follow instructions discussed with your provider during this visit as well as any education documents you were given today. Patient Care team information Care Team Personnel Name: Celestina Trinidad MD Position: [facility] Physician - Primary Care Member Role: PCP Address: [address] [place] [address]- [place] Telecom: Name: Hemalatha Lucas RN Position: [facility] [...] Nessa Bonilla RN Position: [facility] Asbestos Abatement Worker Member Role: Primary Care Nurse Care [...]
--- OUTSIDE RECORDS SUMMARY | 2024-08-05 06:25 | XMS_ITS | Continuity of Care Document ---
Author Organization [facility] Address [address] [place] [address]- Care Team Providers Care Physician Gynecologist Name Role Phone Vivi HENNING, Celestina Givens Primary Care Physician Encounter [facility] Date(s): 06/30/24 - 07/30/24 [facility] [address] [place] [address]- Encounter Type: Triage Allergies, Adverse Reactions, Alerts [...] 08/21/22 Given tetanus/diphtheria/pertussis, acel(Tdap) 7 08/13/12 Given [id number] 12y+ bivalent booster vax 06/14/22 Recorded SARS-CoV-2 mRNA (riscrxe-nwmw-osdwm) vax 02/14/22 Recorded SARS-CoV-2 (COVID-19) mRNA BNT-162b2 vac 05/06/21 Given SARS-CoV-2 (COVID-19) mRNA BNT-162b2 vac 11/04/20 Recorded SARS-CoV-2 (COVID-19) mRNA BNT-162b2 vac 10/14/20 Recorded pneumococcal 23-valent vaccine 8 04/07/19 Given 1Result Comment: screening negative 2Result Comment: [facility]# [id number] 3Result Comment: [05/25/2018] [facility] lot number [id number] exp 01/26/[address] [facility] [id number] 4Result Comment: [08/20/2017] [facility] [id number] 5Admin Note: VIM dated 01/29/12 GIVEN TODAY 6Result Comment: [facility]# [id number] 7Admin Note: VIM dated 08/22/11 GIVEN TODAY 8Result Comment: [facility]#[id number] Medications acetaminophen 500 mg oral capsule 2 [...] 4:46:00 PM EDT, Route to [facility]acy Electronically, [facility] 1 Refills, Maintenance, 07/03/24 12:05:00 PM EST, [facility] STORE [facility], 25, APPLY TO AFFECTED AREA 4 TIMES [...] 0 Refills, Maintenance, 02/28/21 4:31:00 PM EDT, [place], [facility], Partial fill upon patient request [...] 12:28:00 PM EST, Route to Pharmacy Electronically, [facility] STORE 94889, 157.5, cm, 06/16/24 14:53:00 EST, Height, 145.9, kg, 05/22/23 7:39:00 EDT, Dry Weight Start Date: 07/22/24 Status: Ordered Quantity: 90.0 Unit: capsule Repeat number: 1 gabapentin 300 mg oral capsule 600 mg, 2, capsule, By Mouth, 3 times a day, # 180 capsule, Refills 3, Tot. Refills 3, Maintenance,08/25/22 10:35:00 PM EST, Route to Pharmacy Electronically, [facility], Partial fill upon patient request [...] 1 Refills, Maintenance, 12/28/23 4:17:00 PM EDT, [facility] STORE 73345, 157.5, cm, 10/18/23 15:15:00 EDT, Height, 145.9, kg, 05/22/23 7:39:00 EDT, Dry Weight Start Date: 12/28/23 Status: Ordered Quantity: 90.0 Unit: tablet Repeat number: 1 levothyroxine 175 mcg (0.175 mg) oral tablet 1 tablet = 175 mcg, By Mouth, Daily, # 90 tablet, 2 Refills, Maintenance, 06/17/24 1:48:00 PM EST, Tablet, [facility], Partial fill upon patient [...] 0 Refills, Maintenance, 02/27/23 10:43:00 AM EDT, [facility], Partial fill upon patient [...] 1 Refills, Maintenance, 03/28/24 7:37:00 AM EDT, [facility], 157.5, cm, 02/12/24 14:48:00 EDT, Height, 145.9, kg, 05/22/23 7:39:00 EDT, Dry Weight Start Date: 03/28/24 Status: Ordered Quantity: 30.0 Unit: tablet Repeat number: 2 metFORMIN 500 mg oral tablet, extended release 1 tablet = 500 mg, By Mouth, Daily, # 90 tablet, 1 Refills, Maintenance, 01/22/24 11:02:00 AM EDT, ER Tablet, [facility], Partial fill upon patient [...] may filll this prescription for fewer pills. [facility] reviewed, # 20 tablet, Refills 0, Tot. Refills 0, Maintenance, Pain , Severe, 06/30/24 5:17:00 PM EST, Route to Pharmacy Electronically, [facility]2024, Partial fill upon patient request, [...] Refills, Maintenance, 06/30/24 5:18:00 PM EST, Tablet, [facility]2024, Partial fill upon [...] Refills, Maintenance, 11/23/23 5:40:00 PM EDT, Capsule, [facility]2024, Partial fill upon [...] Refills, Maintenance, 06/23/24 12:55:00 PM EST, Solution, [facility], Partial fill upon patient [...] tablet, 0 Refills, Maintenance, 07/08/24 4:50:00PM EST, [facility]2025, Partial fill upon patient [...] Code MRI Safety Implantable Status Assigning Authority [id number] Unknown [id number] Unknown 08/26/24 Unknown Unknown Active GS1 Patient Care team information Care Team Personnel Name: Celestina Trinidad MD Position: [facility] Physician - Primary Care Member Role: PCP Address: [address] [place] [address] Telecom: Name: Hemalatha Lucas RN Position: [facility] [...] RN Position: [place] [employer] Member Role: Primary Care Nurse Care Team Related Persons Name: DINESH SARGENT Name: BON DE Insurance Providers Guarantor name: JORGE ALBERTOKUSH SAHU Health Plan Information #: 1 Payer: MEDICARE PART B OUTPT Member Number: NA Policy Number: NA Group Number: NA Health Plan Information #: 2 Payer: [facility] Member Number: NA Policy Number: NA Group Number: NA
--- OUTSIDE RECORDS SUMMARY | 2024-08-05 06:25 | XMS_ITS | Continuity of Care Document ---
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 Name Role Phone Vivi HENNING, Celestina Givens Primary Care Physician Encounter [facility] Date(s): 06/30/24 - 07/30/24 [facility] [address] [place] [address]- Encounter Type: Triage Allergies, Adverse Reactions, Alerts [...] 08/21/22 Given tetanus/diphtheria/pertussis, acel(Tdap) 7 08/13/12 Given [id number] 12y+ bivalent booster vax 06/14/22 Recorded SARS-CoV-2 mRNA (mqkmpsn-onif-wjqck) vax 02/14/22 Recorded SARS-CoV-2 (COVID-19) mRNA BNT-162b2 vac 05/06/21 Given SARS-CoV-2 (COVID-19) mRNA BNT-162b2 vac 11/04/20 Recorded SARS-CoV-2 (COVID-19) mRNA BNT-162b2 vac 10/14/20 Recorded pneumococcal 23-valent vaccine 8 04/07/19 Given 1Result Comment: screening negative 2Result Comment: [facility]# [id number] 3Result Comment: [05/25/2018] [facility] lot number [id number] exp 01/26/2019 [facility] [id number] 4Result Comment: [08/20/2017] [facility] [id number] 5Admin Note: VIM dated 01/29/12 GIVEN TODAY 6Result Comment: [facility]# [id number] 7Admin Note: VIM dated 08/22/11 GIVEN TODAY 8Result Comment: [facility]#[id number] Medications acetaminophen 500 mg oral capsule 2 [...] 4:46:00 PM EDT, Route to Pharmacy Electronically, [facility]/pharmacy #2024, Partial fill upon patient [...] 1 Refills, Maintenance, 07/03/24 12:05:00 PM EST, [facility] STORE 66960, 25, APPLY TO AFFECTED AREA 4 TIMES [...] 0 Refills, Maintenance, 02/28/21 4:31:00 PM EDT, [place], [facility], Partial fill upon patient [...] 12:28:00 PM EST, Route to Pharmacy Electronically, [facility] STORE 31999, 157.5, cm, 06/16/24 14:53:00 EST, Height, 145.9, kg, 05/22/23 7:39:00 EDT, Dry Weight Start Date: 07/22/24 Status: Ordered Quantity: 90.0 Unit: capsule Repeat number: 1 gabapentin 300 mg oral capsule 600 mg, 2, capsule, By Mouth, 3 times a day, # 180 capsule, Refills 3, Tot. Refills 3, Maintenance,08/25/22 10:35:00 PM EST, Route to Pharmacy Electronically, [facility]/pharmacy #5, Partial fill upon patient request [...] 1 Refills, Maintenance, 12/28/23 4:17:00 PM EDT, [facility] STORE 49239, 157.5, cm, 10/18/23 15:15:00 EDT, Height, 145.9, kg, 05/22/23 7:39:00 EDT, Dry Weight Start Date: 12/28/23 Status: Ordered Quantity: 90.0 Unit: tablet Repeat number: 1 levothyroxine 175 mcg (0.175 mg) oral tablet 1 tablet = 175 mcg, By Mouth, Daily, # 90 tablet, 2 Refills, Maintenance, 06/17/24 1:48:00 PM EST, Tablet, [facility]/pharmacy #202, Partial fill upon patient [...] 0 Refills, Maintenance, 02/27/23 10:43:00 AM EDT, [facility]/pharmacy #202, Partial fill upon patient [...] 1 Refills, Maintenance, 03/28/24 7:37:00 AM EDT, [facility]/pharmacy #202, 157.5, cm, 02/12/24 14:48:00 EDT, Height, 145.9, kg, 05/22/23 7:39:00 EDT, Dry Weight Start Date: 03/28/24 Status: Ordered Quantity: 30.0 Unit: tablet Repeat number: 2 metFORMIN 500 mg oral tablet, extended release 1 tablet = 500 mg, By Mouth, Daily, # 90 tablet, 1 Refills, Maintenance, 01/22/24 11:02:00 AM EDT, ER Tablet, [facility]/pharmacy #202, Partial fill upon patient [...] may filll this prescription for fewer pills. [facility] reviewed, # 20 tablet, Refills 0, Tot. Refills 0, Maintenance, Pain , Severe, 06/30/24 5:17:00 PM EST, Route to Pharmacy Electronically, [facility]/pharmacy #2024, Partial fill upon patient [...] Refills, Maintenance, 06/30/24 5:18:00 PM EST, Tablet, [facility]/pharmacy #2024, Partial fill upon patient [...] Refills, Maintenance, 11/23/23 5:40:00 PM EDT, Capsule, [facility]/pharmacy #2024, Partial fill upon patient [...] Refills, Maintenance, 06/23/24 12:55:00 PM EST, Solution, [facility]/pharmacy #202, Partial fill upon patient [...] tablet, 0 Refills, Maintenance, 07/08/24 4:50:00PM EST, [facility]/pharmacy #2025, Partial fill upon patient [...] Code MRI Safety Implantable Status Assigning Authority [id number] Unknown [id number] Unknown 08/26/24 Unknown Unknown Active GS1 Patient Care team information Care Team Personnel Name: Celestina Trinidad MD Position: [facility] Physician - Primary Care Member Role: PCP Address: [address] [place] [address] Telecom: Name: Hemalatha Lucas RN Position: [facility] [...] Bonilla RN Position: [facility] [employer] Printer Member Role: Primary Care Nurse Care Team Related Persons Name: DINESH SARGENT Name: BON DE Insurance Providers Guarantor name: JORGE ALBERTOKUSH SAHU Health Plan Information #: 1 Payer: MEDICARE PART B OUTPT Member Number: NA Policy Number: NA Group Number: NA Health Plan Information #: 2 Payer: [facility] Member Number: NA Policy Number: NA Group Number: NA
== END 2024-08-05 06:23 | disposition home or self-care (01) ==
LOC: CF 06:22
PROVIDERS: Visit Provider Anesthesiology
DX: M54.50 Low back pain, unspecified (principal)
CPT/HCPCS: 20610; J2003; J2795; J3301; Q9967

== ENCOUNTER 2024-08-05 10:29 | Outpatient (AMB) | payer MEDICARE, MEDICAID, SELFPAY ==
[2024-08-05 10:37] VITALS: BP 155/92; PULSE 71; O2SAT 99
--- NOTE | 2024-08-05 10:37 | A.OFFVIS_ITS ---
Vital Signs 08/05/24 10:37 08/05/24 11:25 BP 155/92 H 195/82 H Blood Pressure Location Lt brachial Lt brachial Position Sitting Sitting Pulse 71 64 Pulse Source Pulse Oximeter Pulse Oximeter Pulse Oximetry (%) 99 97 Oxygen Delivery Method Room Air Room Air Comment Pre Procedure Post procedure Intake Visit Reasons: RIGHT HIP INJECTION Allergies No Known Allergies Allergy (Verified 04/24/24 10:44) Physical Exam Vital Signs: Last Vital Signs Pulse 64 08/05/24 11:25 BP 195/82 H 08/05/24 11:25 Pulse Ox 97 08/05/24 11:25 Oxygen Delivery Method Room Air 08/05/24 11:25 Assessment & Plan Assessment & Plan (1) Right hip pain: Code(s): M25.551 - Pain in right hip Category: Medical (2) Osteoarthritis of right hip: Code(s): M16.11 - Unilateral primary osteoarthritis, right hip Category: Medical Plan intra-articular right hip steroid injection. Informed consent was explained to the patient. All questions were explained and? answered.? The patient was taken inside the operating room where he was positioned left lateral decubitus on the operating table.? Time-out was performed delineating correct site, side, the nature of the procedure, patient's allergy, preoperative antibiotic if needed.? All operating room staff was participating in OR time-out procedure.? The patient stated his name. Non dependent right hip was prepped with ChloraPrep and draped with sterile towels.? The C-arm was brought over the operating field and the picture of bilateral hip joints were obtained on the screen.? The right hip joint was chosen as the target for the injection.? The trochanter position was noted on the screen.? The projection of the trochanter to the skin was noted, the d irection of the femoral neck was noted.? The skin was anesthetized using 2% lidocaine at the trochanter area.? 22 gauge 5 in needle was inserted through the skin and advanced to the hip joint silhouette on anterior posterior view.? When needle entered the joint the injection of the contrast was performed demonstrating intra-articular spread of the contrast.? After that 6 cc of ropivacaine 0.5% mixed with Kenalog 30 mg was injected into the area.? The needle was removed sterile dressing was applied. The patient tolerated procedure well. Orders: Orders FL guidance in treatment room Today M54.50 - Low back pain, unspecified Patient Instructions: The patient is prediabetic and she was recommended to watch for excessive thirst and excessive urination, if this would occur she is recommended to go to emergency room to measure her blood sugar. Risk of diabetes exacerbation was explained to the patient. Coding Level of Care Code Procedure Only Diagnoses Right hip pain M25.551 Osteoarthritis of right hip M16.11
[2024-08-05 11:25] VITALS: BP 195/82; PULSE 64; O2SAT 97
== END 2024-08-05 11:37 | disposition home or self-care (01) ==
LOC: HO.PMCPRC 10:29
PROVIDERS: PCP Pediatrics; Visit Provider Anesthesiology
DX: M25.551 Pain in right hip (principal); M16.11 Unilateral primary osteoarthritis, right hip
CPT/HCPCS: 20610; 77002

== ENCOUNTER 2024-08-20 13:09 | Outpatient (AMB) | payer MEDICARE, MEDICAID, SELFPAY ==
[2024-08-20 13:10] VITALS: BMI 54.3
--- NOTE | 2024-08-20 13:10 | A.OFFVIS_ITS ---
Vital Signs 3 08/20/24 13:10 Height 5 ft 2 in Weight 297 lb BMI 54.3 Intake Visit Reasons: RIGHT HIP INJECTION Allergies No Known Allergies Allergy (Verified 08/20/24 13:10) HPI Comments Details: Telephone visit completed today for follow-up, 2 weeks status post right intra- articular hip injection She reports 80% pain relief with improvement in functional mobility since the injection Denies any untoward effects of the injection Still awaiting SI belt replacement Doing well on Zepbound, hoping to lose enough weight so she can have hip replacement surgery. Prior: Telephone visit completed today for follow-up, 1 month status post right therapeutic sacroiliac joint injection Reports injection was ?successful . Improvement in pain over the SI joint since. Unable to provide detailed account of how much % pain relief as the right hip pain has been over shadowing with severe pain Scheduled with [facility] and [place] next month for the right hip pain Has been using the SI joint belt with good effect. Reports it is overused and could benefit with replacement as SIJ belt Continues with physical therapy though pain persists. Using topical NSAIDs, oral NSAIDs, muscle relaxers, prescription medications but pain persists Prior: Telephone visit completed today for follow-up, review of recent MRI and x-rays. Imaging reviewed, results as per below Radiology findings reviewed with patient, questions and concerns were answered. She has been working to find an orthopedic office that will not discriminate because of her weight. She has been unsuccessful so far, unable to find anybody who would be willing to proceed with hip replacement surgery. Finding this frustrating as she is suffering in pain and her mobility/function are declining. Prior: Telephone visit completed today for follow up, patient with some questions about medications Has been taking Methocarbamol with minimal effect, she was advised yesterday she can increase to 1000mg TID as needed. Has questions about dosing and when to take in regards to her other medications continues with right SIJ pain and reports worsening function and mobility using two canes and at times a walker for ambulation has appt with [facility] for eval next Sunday Prior: Telephone visit performed today for follow-up, 2 days status post right diagnostic sacroiliac joint injection She reports for 3 hours after the procedure she had no pain and her mobility was significantly improved. After this pain continued to improve though she did find that the instability and difficulty with walking and lifting her right leg remained Overall she would reports 80% pain relief in the hours after the procedure. She would like referral to spine surgeon can evaluate her for SI fusion with external hardware Intake note: Lilli is a very pleasant 63-year-old who presents the office today for evaluation and management of their chronic right lower back pain Patient has been suffering with this pain for greater than 10 years, does endorse many accidents, falls and injuries in the past Right lower back pain with radiation down the thigh to the knee. Pain does not travel past the knee. Denies numbness, tingling, weakness of either lower extremity. History of bilateral knee replacements, does endorse chronic knee pain also Pain today is rated as a 10/10, constant. Pain is exacerbated by moving, bending, twisting, sitting for extended period of time, standing for extended period of time, doing housework. Patient is currently taking tramadol every 4-6 hours with oxycodone as needed. Cyclobenzaprine 10 mg 3 times daily as needed. Meloxicam daily. All without improvement of the pain. Currently attending formal physical therapy as well as seeing a physical therapist on their own. Working on core strength but there pain persists. Currently also doing home exercise therapy and water aerobics Patient has been using a sacroiliac joint belt without improvement of her pain. Endorses some urinary dribbling over the last several months, denies any loss of bladder without sensory awareness. Denies saddle anesthesia. Denies loss of bowel. In terms of muscle damage condition is described as spasming, stabbing, sharp, shooting, tiring, exhausting, cramping, numb. Pain is negatively impacting patient's enjoyment of life, general activity, recreational activities, relationships with people, sleep, walking, dressing, yd work, cooking, hygiene, housework. Review of Systems Const All systems reviewed & are unremarkable except as noted in HPI and below Physical Exam Vital Signs: BMI result Body Mass Index 54.3 Telephone visit only, physical exam and vital signs deferred Telehealth Telehealth Telehealth Platform: Telephone Location of provider rendering services: practice address Location of patient: address on file Patient Identification confirmed using: Name, : Yes Telehealth method: voice only Patient verbally consented to treatment: Yes Patient verbally consented to billing insurance company: Yes Patient informed of any privacy concerns related to visit: Yes Minutes spent on Phone/Video with Pt.: 24 Results Reviewed Results Reviewed: 04/202404/17/24 MR/MR lumbar spine wo con FINDINGS: Minimal left convex curvature of the lumbar spine. Degenerative grade 1 anterolisthesis of L4 on L5. Moderate degenerative disc disease from L2-S1. Mild degenerative disc disease at all additional levels. Associated mixed Modic type discogenic endplate changes including Modic type I discogenic edema from T12-S1 . Mild marrow edema within the posterior elements of L3-S1 consistent with degenerative stress reaction. No additional suspicious marrow edema. The vertebral body heights are well-maintained. The conus medullaris terminates at the level of L1. The distal spinal cord is normal in appearance. No significant abnormalities of the paraspinal musculature. Limited evaluation of the intra-abdominal structures without significant abnormalities. The abdominal aorta is of normal contour and caliber. AXIAL SPINAL LEVELS: L1-L2: Mild diffuse disc bulge. There is mild bilateral facet joint arthropathy. There is mild bilateral neural foraminal stenosis. There is no spinal canal stenosis. L2-L3: Mild diffuse disc bulge. There is severe right and moderate left facet joint arthropathy. There is moderate bilateral neural foraminal stenosis. There is stenosis of the subarticular zones with moderate spinal canal stenosis centrally. L3-L4: Moderate diffuse disc bulge with posterior osseous ridging. There is moderate bilateral facet joint arthropathy. There is severe bilateral neural foraminal stenosis. There is stenosis of the subarticular zones with moderate spinal canal stenosis centrally. L4-L5: Prominent diffuse disc bulge exacerbated by uncovering from anterolisthesis. There is severe bilateral facet joint arthropathy. There is moderate to severe bilateral neural foraminal stenosis. There is stenosis of the subarticular zones with moderate to severe spinal canal stenosis centrally. L5-S1: Moderate diffuse disc bulge. Left lateral osteophyte complex abutting the exited left L5 nerve root. There is severe right and moderate left facet joint arthropathy. There is moderate to severe left and moderate right neural foraminal stenosis. There is narrowing of the subarticular zones with no overt spinal canal stenosis centrally. IMPRESSION: Moderate to advanced multilevel degenerative spondyloarthropathy of the lumbar spine as described in detail above. Most notably, there is moderate to severe spinal canal stenosis at L4-L5. Moderate spinal canal stenoses at L2-L3 and L3-L4. Narrowing/stenoses of the subarticular zones from L2-S1. Moderate to severe neural foraminal stenoses from L2-S1. 06/2023 XR LS 04/2022 MRI LS Assessment & Plan Assessment & Plan (1) Sacroiliac joint dysfunction of right side: Code(s): M53.3 - Sacrococcygeal disorders, not elsewhere classified Category: Medical (2) Bilateral knee pain: Code(s): M25.561 - Pain in right knee; M25.562 - Pain in left knee Category: Medical (3) Gait instability: Code(s): R26.81 - Unsteadiness on feet Category: Medical (4) Spinal stenosis: Code(s): M48.00 - Spinal stenosis, site unspecified Category: Medical Plan Telephone visit completed today for follow-up, status post right therapeutic SI J injection Endorses 80% pain relief with improvement in function and mobililty since the injection. Patient has exhausted conservative therapy including brace, PT, home exercise program, nonsteroidal anti-inflammatory medications, prescription medications and vope-xhj-bjiuwvo medications All questions and concerns have been answered and patient agrees with the plan. Follow up in 2 months, sooner if needed. Coding Level of Care Code Tele Est Pt Level 3 (18875) Complex EM visit Add On G2211 Diagnoses Sacroiliac joint dysfunction of right side M53.3 Bilateral knee pain M25.561; M25.562 Gait instability R26.81 Spinal stenosis M48.00
--- OUTSIDE RECORDS SUMMARY | 2024-08-20 15:06 | XMS_ITS | Continuity of Care Document ---
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 Name Role Phone Vivi HENNING, Celestina Givens Primary Care Physician Encounter [facility] Date(s): 07/18/24 - 08/17/24 [facility] [address] [place] [address]- Encounter Type: Triage Allergies, Adverse Reactions, Alerts [...] 08/21/22 Given tetanus/diphtheria/pertussis, acel(Tdap) 7 08/13/12 Given [id number]-[id number] 12y+ bivalent booster vax 06/14/22 Recorded SARS-CoV-2 mRNA (zzbliye-dcbj-vswwx) vax 02/14/22 Recorded SARS-CoV-2 (COVID-19) mRNA BNT-162b2 vac 05/06/21 Given SARS-CoV-2 (COVID-19) mRNA BNT-162b2 vac 11/04/20 Recorded SARS-CoV-2 (COVID-19) mRNA BNT-162b2 vac 10/14/20 Recorded pneumococcal 23-valent vaccine 8 04/07/19 Given 1Result Comment: screening negative 2Result Comment: [facility]# [id number] 3Result Comment: [05/25/2018] [employer] lot number [id number] exp 01/26/2019 [facility] [id number] 4Result Comment: [08/20/2017] [facility] [id number] 5Admin Note: VIM dated 01/29/12 GIVEN TODAY 6Result Comment: [facility]# [id number] 7Admin Note: VIM dated 08/22/11 GIVEN TODAY 8Result Comment: [facility]#[id number] Medications acetaminophen 500 mg oral capsule 2 [...] 4:46:00 PM EDT, [facility]acy Electronically, [facility] [...] 1 Refills, Maintenance, 07/03/24 12:05:00 PM EST, [facility] STORE 25247, 25, APPLY TO AFFECTED AREA 4 TIMES [...] 0 Refills, Maintenance, 02/28/21 4:31:00 PM EDT, [place], [facility], Partial fill upon patient request [...] 12:28:00 PM EST, Route to Pharmacy Electronically, [facility] STORE 75258, 157.5, cm, 06/16/24 14:53:00 EST, Height, 145.9, kg, 05/22/23 7:39:00 EDT, Dry Weight Start Date: 07/22/24 Status: Ordered Quantity: 90.0 Unit: capsule Repeat number: 1 gabapentin 300 mg oral capsule 600 mg, 2, capsule, By Mouth, 3 times a day, # 180 capsule, Refills 3, Tot. Refills 3, Maintenance,08/25/22 10:35:00 PM EST, [facility]acy Electronically, [facility] [...] 1 Refills, Maintenance, 12/28/23 4:17:00 PM EDT, [facility] STORE 42353, 157.5, cm, 10/18/23 15:15:00 EDT, Height, 145.9, kg, 05/22/23 7:39:00 EDT, Dry Weight Start Date: 12/28/23 Status: Ordered Quantity: 90.0 Unit: tablet Repeat number: 1 levothyroxine 175 mcg (0.175 mg) oral tablet 1 tablet = 175 mcg, By Mouth, Daily, # 90 tablet, 2 Refills, Maintenance, 06/17/24 1:48:00 PM EST, Tablet, [facility]2025, Partial fill upon [...] 0 Refills, Maintenance, 02/27/23 10:43:00 AM EDT, [facility]pharm[facility] #2025, Partial fill upon patient request if the prescription is for a schedule II opioid drug., 157, cm, 12/08/22 14:27:00 EDT, Height, 145, kg, 08/29/22 20:13:00 EST, Dry Weight Start Date: 02/27/23 Status: Ordered Quantity: 30.0 Unit: tablet Repeat number: 1 meloxicam 15 mg oral tablet 1 tablet, By Mouth, Daily, WITH FOOD., # 30 tablet, 1 Refills, Maintenance, 08/07/24 10:46:00 AM EST,[facility] STORE 19448, 157.5, cm, 06/16/24 14:53:00 EST, Height, 145.9, kg, 05/22/23 7:39:00 EDT, Dry Weight Start Date: 08/07/24 Status: Ordered Quantity: 30.0 Unit: tablet Repeat number: 1 metFORMIN 500 mg oral tablet, extended release 1 tablet = 500 mg, By Mouth, Daily, # 90 tablet, 1 Refills, Maintenance, 01/22/24 11:02:00 AM EDT, ER Tablet, [facility]/pharmacy #2025, Partial fill upon [...] may filll this [facility], Refills 0, Tot. Refills 0, Maintenance, Pain , Severe, 08/11/24 5:48:00 PM EST, Route to Pharmacy Electronically, [facility]/pharmacy #2024, Partial fill upon patient request, 157.5, cm, 06/16/24 14:53:00 EST, Height, 145.9, kg, 05/22/23 7:39:00 EDT, Dry Weight Start Date: 08/11/24 Status: Ordered Quantity: 20.0 Unit: tablet Repeat [...] left wrist traMADol 50 mg oral tablet See Instructions, Take 2 tablets (100 mg) in the morning, 1 tab (50 mg) in afternoon,. and 1 tab (50 mg) at bedtime. Total of 4 tabs (200 mg) daily., # 81 tablet, 0 Refills, Maintenance, 11/29/23 3:24:00 PM EDT, [facility]pharm[facility] #2024, 157.5, cm, 10/18/23 15:15:00 EDT, Height, 145.9, kg, 05/22/23 7:39:00EDT, Dry Weight Start Date: 11/29/23 Status: Ordered Quantity: 81.0 Unit: tablet Repeat number: 1 traMADol 50 mg oral tablet 1 tablet = 50 mg, By Mouth, Every 4 hours, PRN for pain, max 5 tabs per day, # 140 tablet, 0 Refills, Maintenance, 08/11/24 5:49:00 PM EST, Tablet, [facility], Partial fill upon patient request if the prescription is for a schedule II opioid drug. DNF 07/08/24, 157.5, cm, 06/16/24 14:53:00 EST, Height, 145.9, kg, 05/22/23 7:39:00 EDT, Dry Weight Start Date: 08/11/24 Status: Ordered Quantity: 140.0 Unit: tablet Repeat number: 1 Vitamin D3 [...] sites, # 4 each, 2 Refills, Maintenance, 08/08/24 3:55:00 PM EST, [place], [facility], Partial fill upon patient request if the prescription is for a schedule II opioid drug., 157.5, cm, 06/16/24 14:53:00 EST, Height, 145.9, kg,05/22/23 7:39:00 EDT, Dry Weight Start Date: 08/08/24 Status: Ordered Quantity: 4.0 Unit: each Repeat number: 3 zolpidem 10 mg oral tablet 1 tablet = 10 mg, By Mouth, Daily at bedtime, # 30 tablet, 0 Refills, Maintenance, 08/11/24 5:50:00 PM EST, [facility], Partial fill upon patient request if the prescription is for a schedule II opioid drug., 157.5, cm, 06/16/24 14:53:00 EST, Height, 145.9, kg, 05/22/23 7:39:00 EDT, Dry Weight Start Date: 08/11/24 Status: Ordered Quantity: 30.0 Unit: tablet Repeat [...] Code MRI Safety Implantable Status Assigning Authority [id number] Unknown [id number] Unknown 08/26/24 Unknown Unknown Active GS1 Patient Care team information Care Team Personnel Name: Celestina Trinidad MD Position: [facility] Physician - Primary Care Member Role: PCP Address: [address] [place] [address] Telecom: Name: Hemalatha Lucas RN Position: [facility] [...] Bonilla RN Position: [facility] 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
--- OUTSIDE RECORDS SUMMARY | 2024-08-20 15:07 | XMS_ITS | Continuity of Care Document ---
Author Organization [facility] Address [address] [place] [address]- Care Team Providers Care Woodworking Machine Offbearer Name Role Phone Vivi HENNING, Celestina Givens Primary Care Physician Encounter [facility] Date(s): 07/08/24 - 08/07/24 [facility] [address] [place] [address]- Encounter Type: Triage Allergies, Adverse Reactions, Alerts [...] 08/21/22 Given tetanus/diphtheria/pertussis, acel(Tdap) 7 08/13/12 Given [id number] 12y+ bivalent booster vax 06/14/22 Recorded SARS-CoV-2 mRNA (syoplal-tghn-taugk) vax 02/14/22 Recorded SARS-CoV-2 (COVID-19) mRNA BNT-162b2 vac 05/06/21 Given SARS-CoV-2 (COVID-19) mRNA BNT-162b2 vac 11/04/20 Recorded SARS-CoV-2 (COVID-19) mRNA BNT-162b2 vac 10/14/20 Recorded pneumococcal 23-valent vaccine 8 04/07/19 Given 1Result Comment: screening negative 2Result Comment: [facility]# [id number] 3Result Comment: [05/25/2018] [facility] lot number [id number] exp 01/26/2019 [facility] [id number] 4Result Comment: [08/20/2017] [facility] [id number] 5Admin Note: VIM dated 01/29/12 GIVEN TODAY 6Result Comment: [facility]# [id number] 7Admin Note: VIM dated 08/22/11 GIVEN TODAY 8Result Comment: [facility]#[id number] Medications acetaminophen 500 mg oral capsule 2 [...] 4:46:00 PM EDT, [facility] [...] 1 Refills, Maintenance, 07/03/24 12:05:00 PM EST, [facility] STORE 28097, 25, APPLY TO AFFECTED AREA 4 TIMES [...] 0 Refills, Maintenance, 02/28/21 4:31:00 PM EDT, [place], [facility], Partial fill upon patient request [...] 12:28:00 PM EST, Route to Pharmacy Electronically, [facility] STORE 15777, 157.5, cm, 06/16/24 14:53:00 EST, Height, 145.9, kg, 05/22/23 7:39:00 EDT, Dry Weight Start Date: 07/22/24 Status: Ordered Quantity: 90.0 Unit: capsule Repeat number: 1 gabapentin 300 mg oral capsule 600 mg, 2, capsule, By Mouth, 3 times a day, # 180 capsule, Refills 3, Tot. Refills 3, Maintenance,08/25/22 10:35:00 PM EST, Route to Pharmacy Electronically, [facility]/pharmacy #5, Partial fill upon patient request [...] 1 Refills, Maintenance, 12/28/23 4:17:00 PM EDT, [facility] STORE 44263, 157.5, cm, 10/18/23 15:15:00 EDT, Height, 145.9, kg, 05/22/23 7:39:00 EDT, Dry Weight Start Date: 12/28/23 Status: Ordered Quantity: 90.0 Unit: tablet Repeat number: 1 levothyroxine 175 mcg (0.175 mg) oral tablet 1 tablet = 175 mcg, By Mouth, Daily, # 90 tablet, 2 Refills, Maintenance, 06/17/24 1:48:00 PM EST, Tablet, [facility]/pharmacy #2025, [...] 0 Refills, Maintenance, 02/27/23 10:43:00 AM EDT, [facility]/pharmacy #2025, [...] tablet, 1 Refills, Maintenance, 08/07/24 10:46:00 AM EST,[facility] STORE 33934, 157.5, cm, 06/16/24 14:53:00 EST, Height, 145.9, kg, 05/22/23 7:39:00 EDT, Dry Weight Start Date: 08/07/24 Status: Ordered Quantity: 30.0 Unit: tablet Repeat number: 1 metFORMIN 500 mg oral tablet, extended release 1 tablet = 500 mg, By Mouth, Daily, # 90 tablet, 1 Refills, Maintenance, 01/22/24 11:02:00 AM EDT, ER Tablet, [facility]/pharmacy #2025, [...] may filll this [facility] pills[facility], Refills 0, Tot. Refills 0, Maintenance, Pain , Severe, 06/30/24 5:17:00 PM EST, Route to Pharmacy Electronically, [facility]/pharmacy #2024, Partial fill upon patient request, [...] Refills, Maintenance, 06/30/24 5:18:00 PM EST, Tablet, [facility]/pharmacy #2024, [...] 0 Refills, Maintenance, 11/29/23 3:24:00 PM EDT, [facility]/pharmacy #2024, 157.5, cm, 10/18/23 15:15:00 EDT, Height, 145.9, kg, 05/22/23 7:39:00EDT, Dry Weight Start Date: 11/29/23 Status: Ordered Quantity: 81.0 Unit: tablet Repeat number: 1 Vitamin D3 2000 intl units oral capsule 2 capsule = 100 mcg, By Mouth, Daily, # 180 capsule, 1 Refills, Maintenance, 11/23/23 5:40:00 PM EDT, Capsule, [facility]/pharmacy #2024, [...] Refills, Maintenance, 06/23/24 12:55:00 PM EST, Solution, [facility]/pharmacy #2024, [...] tablet, 0 Refills, Maintenance, 07/08/24 4:50:00PM EST, [facility]/pharmacy #202, [...] Code MRI Safety Implantable Status Assigning Authority [id number] Unknown [id number] Unknown 08/26/24 Unknown Unknown Active GS1 Patient Care team information Care Team Personnel Name: Celestina Trinidad MD Position: [facility] Physician - Primary Care Member Role: PCP Address: [address] [place] [address] Telecom: Name: Hemalatha Lucas RN Position: [facility] [...] Nessa Bonilla RN Position: [facility] Manager Net Member Role: Primary Care Nurse Care Team [...]
--- OUTSIDE RECORDS SUMMARY | 2024-08-20 15:07 | XMS_ITS | Clinical Summary ---
Author Organization [facility] Address [address] [place] [address] Care Team Providers Care Burglar Alarm Mechanic Name Role Phone Celestina Trinidad Primary Care Provider Unava ilable Allergies No known active allergies Medications diclofenac sodium 1 % kit See Instructions, APPLY TO AFFECTED AREA 4 TIMES A DAY, # 100 Gm, 1 Refills, Maintenance, 11/07/23 7:48:00 EDT, [facility], 25, APPLY TO AFFECTED AREA 4 TIMES A DAY, 157.5, cm, 10/18/23 15:15:00 EDT, Height, 145.9, kg, 05/22/23 7:39:00 EDT, .. 4 Active metFORMIN ER (RIOMET ER) 500 mg/5 mL oral suspension Take 500 mg by mouth. 4 Active albuterol (PROAIR HFA,VENTOLIN HFA) 90 mcg inhaler Inhale 2 puffs by mouth every 4 hours as needed. Active FLUoxetine (PROzac) 10 mg capsule Take 10 mg by mouth daily. 4 Active FLUoxetine (PROzac) 20 mg capsule SMARTSI Capsule(s) By Mouth Daily Active levothyroxine (SYNTHROID, LEVOTHROID) 150 mcg tablet Take 1 tablet by mouth. 4 Active meclizine (ANTIVERT) 25 mg tablet SMARTSI Tablet(s) By Mouth 3 Times Daily PRN 3 Active meloxicam (MOBIC) 15 mg tablet SMARTSI Tablet(s) By Mouth Daily Active Dulera 50-5 mcg/actuation PLEASE SEE ATTACHED FOR DETAILED DIRECTIONS 4 Active oxyCODONE IR (ROXICODONE) 5 mg tablet SMARTSI Tablet(s) By Mouth Every 4 Hours PRN Active traMADoL (ULTRAM) 50 mg tablet TAKE 2 TABLETS IN THE MORNING, 1 TAB IN AFTERNOON AND 1 TAB AT BEDTIME. TOTAL OF 4 TABS DAILY. Active zolpidem (AMBIEN) 10 mg tablet Take 10 mg by mouth. 4 Active cholecalciferol (VITAMIN D3) 2,000 unit tablet Take 100 mcg by mouth. 4 Active acetaminophen (TYLENOL) 500 mg tablet Take 500 mg by mouth every 6 hours as needed for pain. Active Active Problems No known active problems Encounters Date Type Department Care Team Description 05/20/2024 10:00 AM EDT Office Visit [facility] [address] [place], [place] [id number] Jair Chacko MD Right hip pain (Primary Dx); Spondylolisthesis of lumbar region from Last 3 Months Social History Tobacco Use Types Packs/Day Years Used Date Smoking Tobacco: Never Assessed Comments Unknown Sex and Gender Information Value Date Recorded Sex Assigned at Female 12/10/2023 12:43 PM EDT Legal Sex Female 12:41 PM EDT Gender Identity Female 04/24/2024 11:26 AM EDT Sexual Orientation Queer 04/24/2024 11 :26 AM EDT Last Filed Vital Signs Vital Sign Reading Time Taken Comments Blood Pressure 183/97 05/20/2024 10:25 AM EDT Pulse 74 05/20/2024 10:25 AM EDT Temperature - - Respiratory Rate - - Oxygen Saturation 99% 05/20/2024 10:25 AM EDT Inhaled Oxygen Concentration - - Weight - - Height - - Body Mass Index - - Plan of Treatment Scheduled Procedures Name Priority Associated Diagnoses Date/Ti me RECONSTRUCTION OF NIPPLE AND AREOLA Gender dysphoria Transgender MASTECTOMY, SIMPLE Gender dysphoria Transgender Health Maintenance Due Date Last Done Comments Cervical Cancer Screening 1962 Cologuard 1962 Colon Cancer Screening 1962 Colonoscopy 1962 FOBT / Fit Test 1962 HIV Screening 1962 HPV and Pap Smear 1962 Hepatitis C Screening 1962 Pap Smear 1962 Sigmoidoscopy 1962 Mammogram 2002 Pneumococcal Vaccine: Pediatric (0-5 Years) and At-Risk Patients (6-64 Years) (2 of 2 - PCV) 04/07/2020 04/07/2019 RSV Vaccine (60+ years old and patients) (1 - Risk 60-74 years 1-dose series) 2022 Influenza Vaccine (#1) 2024 , 06/08/2022, 05/06/2021, Additional history exists Zoster Vaccines (2 of 2) 06/27/2024 05/02/2024 Alcohol/Substance Use Screening 07/30/2024 Depression Screening and Follow-Up 07/30/2024 Social Drivers of Health Annual Screening 07/30/2024 DTaP,Tdap,and Td Vaccines (3 - Td or Tdap) 08/21/2032 08/21/2022, 08/13/2012 COVID-19 Vaccine Completed 05/02/2024, 01/2024, 05/15/2023, Additional history exists Hepatitis B Vaccines Aged Out No long er eligible based on patient's age to complete this topic Procedures * Due to [email or web address] law, this organization might not be sharing negative HIV tests. Procedure Name Priority Date/Time Associated Diagnosis Comments XR LUMBAR SPINE 4+ VIEWS INCLUDING FLEXION/EXTENSION Routine 05/20/2024 11:26 AM EDT Spondylolisthesis of lumbar region XR HIP RIGHT 2 VIEWS AND 1 VIEW PELVIS Routine 05/20/2024 11:25 AM EDT Right hip pain from Last 3 Months Results * Due to [place] [email or web address] law, this organization might not be sharing negative HIV tests. * X-ray lumbar spine flexion and extension only 4+ views (05/20/2024 11:26 AM EDT) Anatomical Region Laterality Modality Spine, L-spine Computed Radiogr aphy 05/20/2024 6:30 PM EDT Impressions 05/20/2024 6:34 PM EDT FINDINGS/IMPRESSION: Lumbar spine: The normal lumbar lordosis is straightened. Grade 1 anterolisthesis of L4-L5, increases with flexion relative to extension. No visible acute vertebral body compression fracture. Multilevel moderate disc degeneration most pronounced at L5-S1. Multilevel facet arthropathy most pronounced within the lower lumbar spine. No visible acute vertebral body compression fracture. Right hip: Advanced end-stage arthropathy of the right hip with flattening/deformity of the femoral head, which may be due to articular surface collapse secondary to underlying avascular necrosis, subchondral fracture, or osseous erosion, versus secondary to remodeling. Recommend correlation with clinical presentation. Pelvis: The left hip is congruent. Sacroiliac joints are congruent. Pubis symphysis is intact. Osseous structures appear demineralized. Vascular atherosclerotic calcifications. If this radiology report contains a blank impression section, it is an incomplete radiology report. ??Please contact the interpreting radiologist or applicable radiology division as soon as possible to obtain the completed interpretation. ? Workstation ID: [id number] Narrative 05/20/2024 6:34 PM EDT COMPARISON: MRI lumbar spine from outside hospital 04/17/2024. Resulting Agency Comment [id number] Procedure Note Hector Stafford MD - 05/20/2024 COMPARISON: MRI lumbar spine from outside hospital 04/17/2024. IMPRESSION: FINDINGS/IMPRESSION: Lumbar spine: The normal lumbar lordosis is straightened. Grade 1 anterolisthesis ofL4-L5, increases with flexion relative to extension. No visible acutevertebral body compression fracture. Multilevel moderate disc degenerationmost pronounced at L5-S1. Multilevel facet arthropathy most pronouncedwithin the lower lumbar spine. No visible acute vertebral body compressionfracture. Right hip: Advanced end-stage arthropathy of the right hip withflattening/deformity of the femoral head, which may be due to articularsurface collapse secondary to underlying avascular necrosis, subchondralfracture, or osseous erosion, versus secondary to remodeling. Recommendcorrelation with clinical presentation. Pelvis: The left hip is congruent. Sacroiliac joints are congruent. Pubissymphysis is intact. Osseous structures appear demineralized. Vascularatherosclerotic calcifications. If this radiology report contains a blank impression section, it is anincomplete radiology report. Please contact the interpreting radiologistor applicable radiology division as soon as possible to obtain thecompleted interpretation. Workstation ID: [id number] us Jair Chacko MD IMG XR PROCEDURES Final Res ult * XR Hip Right 2 Views And 1 View Pelvis (05/20/2024 11:25 AM EDT) Anatomical Region Laterality Modality Body, Pelvis, Hip Right Computed Radio graphy 05/20/2024 6:30 PM EDT Impressions 05/20/2024 6:34 PM EDT FINDINGS/IMPRESSION: Lumbar spine: The normal lumbar lordosis is straightened. Grade 1 anterolisthesis of L4-L5, increases with flexion relative to extension. No visible acute vertebral body compression fracture. Multilevel moderate disc degeneration most pronounced at L5-S1. Multilevel facet arthropathy most pronounced within the lower lumbar spine. No visible acute vertebral body compression fracture. Right hip: Advanced end-stage arthropathy of the right hip with flattening/deformity of the femoral head, which may be due to articular surface collapse secondary to underlying avascular necrosis, subchondral fracture, or osseous erosion, versus secondary to remodeling. Recommend correlation with clinical presentation. Pelvis: The left hip is congruent. Sacroiliac joints are congruent. Pubis symphysis is intact. Osseous structures appear demineralized. Vascular atherosclerotic calcifications. If this radiology report contains a blank impression section, it is an incomplete radiology report. ??Please contact the interpreting radiologist or applicable radiology division as soon as possible to obtain the completed interpretation. ? Workstation ID: [id number] Narrative 05/20/2024 6:34 PM EDT COMPARISON: MRI lumbar spine from outside hospital 04/17/2024. Resulting Agency Comment [id number] Procedure Note Hector Stafford MD - 05/20/2024 COMPARISON: MRI lumbar spine from outside hospital 04/17/2024. IMPRESSION: FINDINGS/IMPRESSION: Lumbar spine: The normal lumbar lordosis is straightened. Grade 1 anterolisthesis ofL4-L5, increases with flexion relative to extension. No visible acutevertebral body compression fracture. Multilevel moderate disc degenerationmost pronounced at L5-S1. Multilevel facet arthropathy most pronouncedwithin the lower lumbar spine. No visible acute vertebral body compressionfracture. Right hip: Advanced end-stage arthropathy of the right hip withflattening/deformity of the femoral head, which may be due to articularsurface collapse secondary to underlying avascular necrosis, subchondralfracture, or osseous erosion, versus secondary to remodeling. Recommendcorrelation with clinical presentation. Pelvis: The left hip is congruent. Sacroiliac joints are congruent. Pubissymphysis is intact. Osseous structures appear demineralized. Vascularatherosclerotic calcifications. If this radiology report contains a blank impression section, it is anincomplete radiology report. Please contact the interpreting radiologistor applicable radiology division as soon as possible to obtain thecompleted interpretation. Workstation ID: [id number] Jair Chacko MD IMG XR PROCEDURES Final Res ult from Last 3 Months Insurance [facility] MEDICARE Care Teams Burglar Alarm Mechanic Relationship Specialty Start Date End Date Celestina Trinidad [address] [place] [address] PCP - General Internal Medicine 12/10/23
--- OUTSIDE RECORDS SUMMARY | 2024-08-20 15:07 | XMS_ITS | Referral Summary ---
Author Organization [facility] Address [address] [place] [address] Care Team Providers Care Tool Machine Setup Operator Name Role Phone Celestina Trinidad Primary Care Provider Perez sesay Encounters Date Type Department Care Team Description 05/20/2024 10:00 AM EDT Office Visit [facility] [address] [place] [id number] Jair Chacko MD Right hip pain (Primary Dx); Spondylolisthesis of lumbar region from Last 3 Months Allergies No known active allergies Medications diclofenac sodium 1 % kit See Instructions, APPLY TO AFFECTED AREA 4 TIMES A DAY, # 100 Gm, 1 Refills, Maintenance, 11/07/23 7:48:00 EDT, [facility], APPLY TO AFFECTED AREA 4 TIMES [...] Active Active Problems No known active problems Social History Tobacco Use Types Packs/Day Years [...] dysphoria Transgender MASTECTOMY, SIMPLE Gender dysphoria Transgender Procedures * Due to [place] state law, this organization might not be sharing negative HIV tests. Procedure Name Priority Date/Time Associated Diagnosis Comments XR LUMBAR SPINE 4+ VIEWS INCLUDING FLEXION/EXTENSION Routine 05/20/2024 11:26 AM EDT Spondylolisthesis of lumbar region XR HIP RIGHT 2 VIEWS AND 1 VIEW PELVIS Routine 05/20/2024 11:25 AM EDT Right hip pain from Last 3 Months Results * Due to [place] state law, this organization might not be sharing [...] obtain the completed interpretation. ? Workstation ID: [id number] Narrative 05/20/2024 6:34 PM EDT COMPARISON: MRI lumbar spine from outside hospital 04/17/2024. Resulting Agency Comment [id number] Procedure Note Hector Stafford MD - 05/20/2024 [...] possible to obtain thecompleted interpretation. Workstation ID: [id number] us Jair Chacko MD IMG XR PROCEDURES [...] obtain the completed interpretation. ? Workstation ID: [id number] Narrative 05/20/2024 6:34 PM EDT COMPARISON: MRI lumbar spine from outside hospital 04/17/2024. Resulting Agency Comment [id number] Procedure Note Hector Stafford MD - 05/20/2024 [...] possible to obtain thecompleted interpretation. Workstation ID: [id number] us Jair Chacko MD IMG XR PROCEDURES Final Res ult from Last 3 Months Insurance [facility] MEDICARE Care Teams Tool Machine Setup Operator Relationship Specialty Start Date End Date Celestina Trinidad [address] [place] [id number] PCP - General Internal Medicine 12/10/23
--- OUTSIDE RECORDS SUMMARY | 2024-08-20 15:07 | XMS_ITS | Data Portability ---
Author Organization [facility] [employer] [facility], [facility], [facility]_Office Address [address] [place] [phone] Care Team Providers Care Mixed Crop Farmer Name Role Phone YAW FOSTER Primary Care [...] XR, ankle , 3 or more view [facility] Depart ment of Radiol ogy [address] [place] [address], [id number] Name: Chon SAHU : [id number] Date of Servic e: 1426 Acct Number : [id number] Order Number : [id number] Locati on: WORD Report Number : [id number] Servic e: REG REF/ Reques ting Physic jeimy: Flaquito caballero,Car ol Catego ry: ORTHOP EDIC RADIOL OGY [facility] Exam: ANKLE 3 VIEWS Right Access ion #: [id number] VH Signs/ Sympto ms: RIGHT ANKLE [...] is seen with margin 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 There is no acute fractu [...] provid ers: Ari caballero, Ari caballero, , [facility] , Ari caballero, , [facility] [address] [place] [address], [id number], 02/26/2018 07:00:25 02/22/20 18 02/21/2018 XR, ankle , 3 or more view [facility] Hospit [facility] Depart ment of Radiol ogy [address] [place] [address], [id number] Name: Chon SAHU : [id number] Date of Servic e: 1427 Acct Number : [id number] Order Number : [id number] Locati on: WORD Report Number : [id number] Servic e: REG REF/ Reques ting Physic jeimy: Flaquito caballero,Car vikram Catego ry: ORTHOP EDIC RADIOL OGY [facility] Exam: ANKLE 3 VIEWS Left Access ion #: [id number] VH Signs/ Sympto ms: LEFT ANKLE [...] osteop hytes of the tibial plafon d fixture fabricator repairer iorly. There is no acute fractu [...] provid ers: Ari caballero, Ari caballero, , [facility] , Ari caballero, , [facility] (Radiology) [address] [place] [address], [id number], 02/26/2018 07:00:25 Result Notes None recorded. Problems Name Problem SNOMED Code Status Onset Date Resolution Date Notes Provider Name and Address Organization Details Recorded Time Arthritis 3696549 [facility], [facility] [place], [facility] 8 15:02:06 Asthma 555824323 Active Jeannine Abdirahman [employer], [facility] [place], [facility] 8 15:02:11 Problem Notes None recorded. Procedures Surgical History Date Name Laterality Status Provider Name and Address Organization Details Recorded Time Knee arthroscopy/surg franco completed [facility]blems[facility] [place], [facility] 02/21/2018 15:03:15 Shoulder joint surgery completed [facility] [place], [facility] 02/21/2018 15:03:21 Elbow arthroscopy completed JeannineProblemsolutions24[facility] [place], [facility] 02/21/2018 15:03:26 Unlisted px hands/fingers [facility] 02/21/2018 15:03:30 Imaging Results Imaging Date Name Status LastModified by [facility] Details LastModified Time 02/21/2018 XR, ankle, 3 or more view completed [facility] (Radiology) [address] [place] [address], [address], 02/26/2018 07:00:25 02/21/2018 XR, ankle, 3 or more view completed [facility] (Radiology) [address] [place] [address], [address], 02/26/2018 07:00:25 Procedure Notes None recorded. Medical [...] Updated DateTime 02/21/2018 160.02 cm 50.5 kg/m2 276942.8 3 g 128 mm[Hg] 84 mm[Hg] Jeannine Gary [facility] [employer] [facility] [place] 8 14:49:38 Social History Question Answer Notes LastModified by Organizat ion Details LastModified Time Tobacco Smoking Status Former Smoker Jeannine galo [facility] [employer] [facility] [place] 02/21/2018 15:02:54 What Is Your Level Of [...] Anxiety/Depression N Blood Transfusion N Hernia N Lung Disease N COPD N Pacemaker N Edema N Deep Vein Thrombosis N Varicose Veins N Orthotics N Arthritis Y Blood Clot N Cancer N Stroke N Leg or Foot Ulcers N Raynaud's Disease N Polio N High Cholesterol N Liver Disease N Organ Transplant N Rheumatoid Arthritis N Foot Deformity N Fibromyalgia N Dialysis N Kidney Disease N Heart [...] SNOMED-CT Code Diagnosis ICD10 Code Diagnosis Note [id number] ARI JOSEPH MD [facility]_Main_ Office [address] [place] [phone] 02/21/2018 14:31:27 02/21/2018 16:10:28 Ankle pain 106970439 M25.572 M25.571 Health Concerns Section Related Observation LastModified by Organization Detai ls LastModified Time None Recorded Concern Status LastModified by Organization Details LastModified Time None Recorded Advance Directives Directive None Recorded Payers Encounter Date Sequence Insurance Name Policy Number Policy Black Covered Member ID Black Member ID Guarantor Name 02/21/2018 1 [place] [employer] Lilli Sahu [id number] Lilli Sahu 02/21/2018 2 [place] Lilli Sahu [id number] Lilli Sahu Notes Date Note Type Note [...] what was entailed in this. Apparently an modeler, a optician manager and Dr Hsu in [place] have been seen for this. There is [...] discussion after the exam ARI JOSEPH MD [address] [place] [address], [phone], [facility], [facility] 02/21/2018 17:11:12 OBGyn Episode No OBEpisode recorded.
== END 2024-08-20 13:34 | disposition home or self-care (01) ==
LOC: HO.PMC 13:09
PROVIDERS: PCP Pediatrics; Visit Provider Registered Nurse Emergency
DX: M53.3 Sacrococcygeal disorders, not elsewhere classified (principal); M25.561 Pain in right knee; M25.562 Pain in left knee; R26.81 Unsteadiness on feet; M48.00 Spinal stenosis, site unspecified
CPT/HCPCS: 99213; G2211

== ENCOUNTER → 2024-08-20 13:09 | Outpatient (BNVA) | payer MEDICARE, MEDICAID, SELFPAY | PROVIDERS: PCP Pediatrics; Visit Provider Registered Nurse Emergency ==

== ENCOUNTER 2024-10-28 06:23 | Outpatient (REF) | payer MEDICARE, MEDICAID, SELFPAY ==
--- NOTE | ~2024-10-28 | FL_ITS ---
EXAMINATION: XR FLUOROSCOPY WITH IMAGES CLINICAL INFORMATION: Right hip primary osteoarthritis. Pain management injection. COMPARISON: None available. TECHNIQUE: Fluoroscopy provided to: Dr. Srinivasan Fluoroscopy time: 0.4 minutes DAP: 0.344 mGycm2 Images: 1 FINDINGS: Solitary spot image taken during right hip pain management intra-articular injection. Please refer to procedural note for details. FL/FL guidance in treatment room IMPRESSION: Fluoroscopic guidance. Electronically signed by: Hector Roberto MD 10/29/2024 12:26 PM EDT
--- OUTSIDE RECORDS SUMMARY | 2024-10-28 06:27 | XMS_ITS | Continuity of Care Document ---
Author Organization [facility] Address [address] [place] [address]- Care Team Providers Care Weeder Name Role Phone Vivi HENNING, Celestina Givens Primary Care Physician Encounter [facility] Date(s): 09/25/24 - 10/25/24 [facility] [address] [place] [address]- Encounter Type: Triage Allergies, Adverse Reactions, Alerts [...] 08/21/22 Given tetanus/diphtheria/pertussis, acel(Tdap) 7 08/13/12 Given WYIF-AtH-9dNUA 12y+ bivalent booster vax 06/14/22 Recorded SARS-CoV-2 mRNA (nzadqjt-ncpn-qctqv) vax 02/14/22 Recorded SARS-CoV-2 (COVID-19) mRNA BNT-162b2 vac 05/06/21 Given SARS-CoV-2 (COVID-19) mRNA BNT-162b2 vac 11/04/20 Recorded SARS-CoV-2 (COVID-19) mRNA BNT-162b2 vac 10/14/20 Recorded pneumococcal 23-valent vaccine 8 04/07/19 Given 1Result Comment: screening negative 2Result Comment: [facility]# [id number] 3Result Comment: [05/25/2018] [employer] lot number [id number] exp 01/26/2019 [facility] [id number] 4Result Comment: [08/20/2017] [facility] [id number] 5Admin Note: VIM dated 01/29/12 GIVEN TODAY 6Result Comment: [facility]# [id number] 7Admin Note: VIM dated 08/22/11 GIVEN TODAY 8Result Comment: [facility]#[id number] Medications acetaminophen 500 mg oral capsule 2 [...] 4:46:00 PM EDT, [facility] COVERED, # 100 Gm, 1 Refills, Maintenance, 08/19/24 9:39:00 AM EST, [facility]/pharmacy #2024, 25, APPLY TO AFFECTED AREA 4 TIMES A DAY. NOT COVERED, 157.5, cm, 06/16/24 14:53:00 EST, Height, 145.9, kg, 05/22/23 7:39:00 EDT, Dry Weight Start Date: 08/19/24 Status: Ordered Quantity: 100.0 Unit: g Repeat [...] 0 Refills, Maintenance, 02/28/21 4:31:00 PM EDT, [place], [facility], Partial fill upon patient request [...] 12:28:00 PM EST, Route to Pharmacy Electronically, [facility], 157.5, cm, 06/16/24 14:53:00 EST, Height, 145.9, kg, 05/22/23 7:39:00 EDT, Dry Weight Start Date: 07/22/24 Status: Ordered Quantity: 90.0 Unit: capsule Repeat number: 1 gabapentin 300 mg oral capsule 600 mg, 2, capsule, By Mouth, 3 times a day, # 180 capsule, Refills 3, Tot. Refills 3, Maintenance,08/25/22 10:35:00 PM EST, Route to Pharmacy Electronically, [facility]/pharmacy #5, Partial fill upon [...] 1 Refills, Maintenance, 12/28/23 4:17:00 PM EDT, [facility], 157.5, cm, 10/18/23 15:15:00 EDT, Height, 145.9, kg, 05/22/23 7:39:00 EDT, Dry Weight Start Date: 12/28/23 Status: Ordered Quantity: 90.0 Unit: tablet Repeat number: 1 levothyroxine 175 mcg (0.175 mg) oral tablet 1 tablet = 175 mcg, By Mouth, Daily, # 90 tablet, 2 Refills, Maintenance, 06/17/24 1:48:00 PM EST, [place]t, [facility], Partial fill [...] Refills, Maintenance, 02/27/23 10:43:00 AM EDT, [facility], Partial fill upon patient request if the prescription is for a schedule II opioid drug., 157, cm, 12/08/22 14:27:00 EDT, Height, 145, kg, 08/29/22 20:13:00 EST, Dry Weight Start Date: 02/27/23 Status: Ordered Quantity: 30.0 Unit: tablet Repeat number: 1 meloxicam 15 mg oral tablet 1 tablet, By Mouth, Daily, WITH FOOD. Please ask pt to go to lab needs to get CBC lab done only forthis med overdue, before any further refills, non-fasting lab, # 30 tablet, 0 Refills, Maintenance,09/28/24 8:55:00 AM EST, [facility], 157.5, cm, 06/16/24 14:53:00 EST, Height, 145.9, kg, 05/22/23 7:39:00 EDT, Dry Weight Start Date: 09/28/24 Status: Ordered Quantity: 30.0 Unit: tablet Repeat number: 1 metFORMIN 500 mg oral tablet, extended release 1 tablet = 500 mg, By Mouth, Daily, # 90 tablet, 1 Refills, Maintenance, 10/14/24 3:11:00 PM EDT, [place], [facility], Partial fill upon patient request if the prescription is for a scheduleII opioid drug., 157.5, cm, 06/16/24 14:53:00 EST, Height, 145.9, kg, 05/22/23 7:39:00 EDT, Dry Weight Start Date: 10/14/24 Status: Ordered Quantity: 90.0 Unit: tablet Repeat number: 2 oxyCODONE 5 mg oral tablet 5 mg, 1, tablet, By Mouth, Every 4 hours, PRN, you may filll this prescription for fewer pills. Edward reviewed, # 20 tablet, Refills 0, Tot. Refills 0, Maintenance, Pain , Severe, 10/13/24 9:39:00 PM EDT, Route to Pharmacy Electronically, [facility]/pharmacy #2024, Partial fill upon patient request, 157.5, cm, 06/16/24 14:53:00 EST, Height, 145.9, kg, 05/22/23 7:39:00 EDT, Dry Weight Start Date: 10/13/24 Status: Ordered Quantity: 20.0 Unit: tablet Repeat [...] day, # 140 tablet, 0 Refills, Maintenance, 10/13/24 9:33:00 PM EDT, [place]t, [facility], Partial fill upon patient request if the prescription is for a schedule II opioid drug. DNF 07/08/24, 157.5, cm, 06/16/24 14:53:00 EST, Height, 145.9, kg, 05/22/23 7:39:00 EDT, Dry Weight Start Date: 10/13/24 Status: Ordered Quantity: 140.0 Unit: tablet Repeat [...] Maintenance, 08/08/24 3:55:00 PM EST, [facility], [facility], Partial fill upon patient request if the prescription is for a schedule II opioid drug., 157.5, cm, 06/16/24 14:53:00 EST, Height, 145.9, kg,05/22/23 7:39:00 EDT, Dry Weight Start Date: 08/08/24 Status: Ordered Quantity: 4.0 Unit: each Repeat number: 3 Zepbound Pen 5 mg/0.5 mL subcutaneous solution = 5 mg, Subcutaneous Injection, Every week, rotate injection sites, # 2 mL, 3 Refills, Maintenance,09/22/24 3:54:00 PM EST, Solution, [facility], Partial fill upon patient request if the prescription is for a schedule II opioid drug., 157.5, cm, 06/16/24 14:53:00 EST, Height, 145.9, kg, 05/22/23 7:39:00 EDT, Dry Weight Start Date: 09/22/24 Status: Ordered Quantity: 2.0 Unit: mL Repeat number: 4 Zepbound Pen 5 mg/0.5 mL subcutaneous solution = 5 mg, Subcutaneous Infusion, Every week, # 2 mL, 2 Refills, Maintenance, 08/21/24 3:23:00 PM EST, [facility]/pharmacy #2024, Partial fill upon patient request if the prescription is for a schedule II opioid drug., 157.5, cm, 06/16/24 14:53:00 EST, Height, 145.9, kg, 05/22/23 7:39:00 EDT, Dry Weight Start Date: 08/21/24 Status: Ordered Quantity: 2.0 Unit: mL Repeat number: 3 zolpidem 10 mg oral tablet See Instructions, TAKE 1 TABLET BY MOUTH EVERYDAY AT BEDTIME, # 30 tablet, 0 Refills, Maintenance, 10/20/24 5:26:00 PM EDT, [facility]/pharmacy #2024, 157.5, cm, 06/16/24 14:53:00 EST, Height, 145.9, kg, 05/22/23 7:39:00 EDT, Dry Weight Start Date: 10/20/24 Stop Date: 11/20/24 Status: Ordered Quantity: 30.0 Unit: tablet Repeat number: 1 zolpidem 10 mg oral tablet 1 tablet = 10 mg, By Mouth, Daily at bedtime, # 30 tablet, 0 Refills, Acute 11/23/24 2:58:00 PM EDT,10/23/24 2:57:00 PM EDT, [facility]/pharmacy #202, Partial fill upon patient request if the prescription is for a schedule II opioid drug., 157.5, cm, 06/16/24 14:53:00 EST, Height, 145.9, kg, 05/22/23 7:39:00 EDT, Dry Weight Start Date: 10/23/24 Stop Date: 11/23/24 Status: Ordered Quantity: 30.0 Unit: tablet Repeat number: 1 zolpidem 10 mg oral tablet 1 tablet = 10 mg, By Mouth, Daily at bedtime, # 30 tablet, 0 Refills, Maintenance, 09/18/24 12:13:00PM EST, [facility]/pharmacy #5, Partial fill upon patient request if the prescription is for a scheduleII opioid drug., 157.5, cm, 06/16/24 14:53:00 EST, Height, 145.9, kg, 05/22/23 7:39:00 EDT, Dry Weight Start Date: 09/18/24 Status: Ordered Quantity: 30.0 Unit: tablet Repeat [...] Code MRI Safety Implantable Status Assigning Authority [id number] Unknown [id number] Unknown 08/26/24 Unknown Unknown Active GS1 Patient Care team information Care Team Personnel Name: Celetsina Trinidad MD Position: [facility] Physician - Primary Care Member Role: PCP Address: [address] [place] [address] Telecom: Name: Hemalatha Lucas RN Position: [facility] RN Member Role: Primary Care Nurse Name: Lauren Mack RN Position: [facility] RN Member Role: Primary Care Nurse Name: Madelanie Ruiz RN Position: [facility] RN [...] Nessa Bonilla RN Position: [facility] Wetland Scientist Member Role: Primary Care Nurse Care Team Related Persons Name: DINESH SARGENT Name: BON DE Insurance Providers Guarantor name: JORGE ALBERTO LUIS ALBERTO Health Plan Information #: 1 Payer: MEDICARE PART B OUTPT Member Number: NA Policy Number: NA Group Number: NA Health Plan Information #: 2 Payer: [place] Member Number: NA Policy Number: NA Group Number: NA
--- OUTSIDE RECORDS SUMMARY | 2024-10-28 06:27 | XMS_ITS | Continuity of Care Document ---
Author Organization [facility] Address [address] [place] [address]- Care Team Providers Care Pr Specialist Name Role Phone Vivi HENNING, Celestina Givens Primary Care Physician Encounter [facility] Date(s): 09/22/24 - 10/22/24 [facility] [address] [place] [address]- Attending Physician: AdmCalixto hernandez Admitting Physician: AdmtrCalixto Referring Physician: Admtr, Ar8 Encounter Type: Triage [...] 08/21/22 Given tetanus/diphtheria/pertussis, acel(Tdap) 7 08/13/12 Given NPQU-QcB-3wHOR 12y+ bivalent booster vax 06/14/22 Recorded SARS-CoV-2 mRNA (qjhamax-atgr-bdmwu) vax 02/14/22 Recorded SARS-CoV-2 (COVID-19) mRNA BNT-162b2 vac 05/06/21 Given SARS-CoV-2 (COVID-19) mRNA BNT-162b2 vac 11/04/20 Recorded SARS-CoV-2 (COVID-19) mRNA BNT-162b2 vac 10/14/20 Recorded pneumococcal 23-valent vaccine 8 04/07/19 Given 1Result Comment: screening negative 2Result Comment: [facility]# [id number] 3Result Comment: [05/25/2018] [employer] lot number [id number] exp 01/26/2019 [facility] [id number] 4Result Comment: [08/20/2017] [facility] [id number] 5Admin Note: VIM dated 01/29/12 GIVEN TODAY 6Result Comment: [facility]# [id number] 7Admin Note: VIM dated 08/22/11 GIVEN TODAY 8Result Comment: [facility]#[id number] Medications acetaminophen 500 mg oral capsule 2 [...] PM EDT, [facility] 1 Refills, Maintenance, 08/19/24 9:39:00 AM EST, [facility], APPLY TO AFFECTED AREA [...] 0 Refills, Maintenance, 02/28/21 4:31:00 PM EDT, [place], [facility], Partial fill upon patient request [...] 12:28:00 PM EST, Route to Pharmacy Electronically, [facility], 157.5, cm, 06/16/24 14:53:00 EST, Height, 145.9, kg, 05/22/23 7:39:00 EDT, Dry Weight Start Date: 07/22/24 Status: Ordered Quantity: 90.0 Unit: capsule Repeat number: 1 gabapentin 300 mg oral capsule 600 mg, 2, capsule, By Mouth, 3 times a day, # 180 capsule, Refills 3, Tot. Refills 3, Maintenance,08/25/22 10:35:00 PM EST, [facility] 1 Refills, Maintenance, 12/28/23 4:17:00 PM EDT, [facility], 157.5, cm, 10/18/23 15:15:00 EDT, Height, 145.9, [...] 9:39:00 PM EDT, Route to Pharmacy Electronically, [facility]/pharmacy #2024, Partial fill upon patient request, 157.5, [...] Refills, Maintenance, 08/08/24 3:55:00 PM EST, Solution, [facility]/pharmacy #202, Partial fill upon patient request [...] 3 Refills, Maintenance,09/22/24 3:54:00 PM EST, Solution, [facility], Partial fill upon patient request if [...] 2 Refills, Maintenance, 08/21/24 3:23:00 PM EST, [facility]/pharmacy #2024, Partial [...] 0 Refills, Maintenance, 10/20/24 5:26:00 PM EDT, [facility]/pharmacy #2024, 157.5, cm, 06/16/24 14:53:00 EST, Height, 145.9, kg, 05/22/23 7:39:00 EDT, Dry Weight Start Date: 10/20/24 Stop Date: 11/20/24 Status: Ordered Quantity: 30.0 Unit: tablet Repeat number: 1 zolpidem 10 mg oral tablet 1 tablet = 10 mg, By Mouth, Daily at bedtime, # 30 tablet, 0 Refills, Maintenance, 09/18/24 12:13:00PM EST, [facility]/pharmacy #202, Partial fill upon patient request [...] Site Repair Hernia Umbilical Laparoscopic Emily HENNING, [facility] 05/22/23 Unknown Umbilicus Device Identifier Serial Number Lot or Batch Number Manufacturing Date Expiration Date Distinct Identification Code MRI Safety Implantable Status Assigning Authority [id number] Unknown [id number] Unknown 08/26/24 Unknown Unknown Active GS1 [...] VERIFY Event Display: Patient Education/Instruction Authored Date: [facility] BMP PV Family Clinical Summary Person Information [...] care provider, you may find a [facility] provider by calling [facility] at [phone]. Patient Education Information Follow-up Details: Patient Education Material: Please follow instructions discussed with your provider during this visit as well as any education documents you were given today. Patient Care team information Care Team Personnel Name: Celestina Trinidad MD Position: [facility] Physician - Primary Care Member Role: PCP Address: [address] [place], [place] [address] Telecom: Name: Hemalatha Lucas RN Position: [facility] [...] Care Nurse Name: Nessa Bonilla RN Position: [facility] Hospital Card Hand Member Role: Primary Care Nurse Care Team Related Persons Name: DINESH SARGENT Name: BON DE Insurance Providers Guarantor name: JORGE ALBERTOKUSH SAHU Health Plan Information #: 1 Payer: MEDICARE PART B OUTPT Member Number: NA Policy Number: NA Group Number: NA Health Plan Information #: 2 Payer: [facility] Member Number: NA Policy Number: NA Group Number: NA
--- OUTSIDE RECORDS SUMMARY | 2024-10-28 06:27 | XMS_ITS | Clinical Summary ---
Author Organization [facility] Address [address] [place] [address] Care Team Providers Care Command Post Superintendent Name Role Phone Celestina Trinidad Primary Care [...] Screening 1962 Pap Smear 1962 Sigmoidoscopy 1962 Medicare AWV 1963 Mammogram 2002 Pneumococcal Vaccine: 50+ Years (2 of 2 - PCV) 04/07/2020 04/07/2019 RSV Vaccine (60+ years old and patients) (1 - Risk 60-74 years 1-dose series) 2022 Influenza Vaccine (#1) 2024 , 06/08/2022, 05/06/2021, Additional history exists Zoster Vaccines (2 of 2) 06/27/2024 05/02/2024 Alcohol/Substance Use Screening 07/30/2024 05/20/2024 Depression Screening and Follow-Up 07/30/2024 Social Drivers of Health Annual Screening 07/30/2024 DTaP,Tdap,and Td Vaccines (3 - Td or Tdap) 08/21/2032 08/21/2022, 08/13/2012 COVID-19 Vaccine Completed 05/02/2024, 01/2024, 05/15/2023, Additional history exists Hepatitis B Vaccines Aged Out No long er eligible based on patient's age to complete this topic Insurance [facility] MEDICARE Care Teams Command Post Superintendent Relationship Specialty Start Date End Date Celestina Trinidad [address] [place] [address] PCP - General Internal Medicine 12/10/23
--- OUTSIDE RECORDS SUMMARY | 2024-10-28 06:27 | XMS_ITS | Continuity of Care Document ---
Author Organization [facility] Address [address] [place] [address]- Care Team Providers Care Radiophone Operator Name Role Phone Vivi HENNING, Celestina Givens Primary Care Physician Encounter [facility] Date(s): 09/24/24 - 10/24/24 [facility] [address] [place] [address]- Encounter Type: Triage Allergies, Adverse Reactions, Alerts [...] 08/21/22 Given tetanus/diphtheria/pertussis, acel(Tdap) 7 08/13/12 Given UDFQ-GzF-1vGQV 12y+ bivalent booster vax 06/14/22 Recorded SARS-CoV-2 mRNA (fdpgmom-udlb-gshsj) vax 02/14/22 Recorded SARS-CoV-2 (COVID-19) mRNA BNT-162b2 vac 05/06/21 Given SARS-CoV-2 (COVID-19) mRNA BNT-162b2 vac 11/04/20 Recorded SARS-CoV-2 (COVID-19) mRNA BNT-162b2 vac 10/14/20 Recorded pneumococcal 23-valent vaccine 8 04/07/19 Given 1Result Comment: screening negative 2Result Comment: [facility]# [id number] 3Result Comment: [05/25/2018] [employer] lot number [id number] exp 01/26/2019 [facility] [id number] 4Result Comment: [08/20/2017] [facility] [id number] 5Admin Note: VIM dated 01/29/12 GIVEN TODAY 6Result Comment: [facility]# [id number] 7Admin Note: VIM dated 08/22/11 GIVEN TODAY 8Result Comment: [facility]#[id number] Medications acetaminophen 500 mg oral capsule 2 [...] 4:46:00 PM EDT, Route to Pharmacy Electronically, [facility]/pharmacy #2024, Partial fill upon patient request if [...] 1 Refills, Maintenance, 08/19/24 9:39:00 AM EST, [facility]/pharmacy #2024, 25, APPLY TO AFFECTED AREA 4 [...] 0 Refills, Maintenance, 02/28/21 4:31:00 PM EDT, [place], [facility], Partial fill upon patient request [...] 12:28:00 PM EST, Route to Pharmacy Electronically, [facility] STORE 61637, 157.5, cm, 06/16/24 14:53:00 EST, Height, 145.9, kg, 05/22/23 7:39:00 EDT, Dry Weight Start Date: 07/22/24 Status: Ordered Quantity: 90.0 Unit: capsule Repeat number: 1 gabapentin 300 mg oral capsule 600 mg, 2, capsule, By Mouth, 3 times a day, # 180 capsule, Refills 3, Tot. Refills 3, Maintenance,08/25/22 10:35:00 PM EST, Route to Pharmacy Electronically, [facility]/pharmacy #2024, Partial fill upon patient request if [...] 1 Refills, Maintenance, 12/28/23 4:17:00 PM EDT, [facility] STORE 89231, 157.5, cm, 10/18/23 15:15:00 EDT, Height, 145.9, [...] 9:39:00 PM EDT, Route to Pharmacy Electronically, [facility], Partial fill upon patient request, 157.5, [...] 3 Refills, Maintenance,09/22/24 3:54:00 PM EST, Solution, [facility], Partial fill upon patient request if [...] 2 Refills, Maintenance, 08/21/24 3:23:00 PM EST, [facility]/pharmacy #2024, Partial fill upon patient request if [...] 0 Refills, Maintenance, 10/20/24 5:26:00 PM EDT, [facility]/pharmacy #2024, 157.5, cm, 06/16/24 14:53:00 EST, Height, 145.9, kg, 05/22/23 7:39:00 EDT, Dry Weight Start Date: 10/20/24 Stop Date: 11/20/24 Status: Ordered Quantity: 30.0 Unit: tablet Repeat number: 1 zolpidem 10 mg oral tablet 1 tablet = 10 mg, By Mouth, Daily at bedtime, # 30 tablet, 0 Refills, Acute 11/23/24 2:58:00 PM EDT,10/23/24 2:57:00 PM EDT, [facility], Partial fill upon patient [...] tablet, 0 Refills, Maintenance, 09/18/24 12:13:00PM EST, [facility]/pharmacy #5, Partial fill upon patient request if [...] Code MRI Safety Implantable Status Assigning Authority [id number] Unknown [id number] Unknown 08/26/24 Unknown Unknown Active GS1 Patient Care team information Care Team Personnel Name: Celestina Trinidad MD Position: [facility] Physician - Primary Care Member Role: PCP Address: [address] [place] [address] Telecom: Name: Hemalatha Lucas RN Position: [facility] [...] Nessa Bonilla RN Position: [facility] Early Breastfeeding Care Specialist Member Role: Primary Care Nurse Care [...]
--- OUTSIDE RECORDS SUMMARY | 2024-10-28 06:27 | XMS_ITS | Continuity of Care Document ---
Author Organization [facility] Address [address] [place] [address]- Care Team Providers Care Supervisor Pyrotechnic Loading Name Role Phone Vivi HENNING, Celestina Givens Primary Care Physician Encounter [facility] Date(s): 09/24/24 - 10/24/24 [facility] [address] [place] [address]- Encounter Type: Triage Allergies, Adverse Reactions, Alerts [...] 08/21/22 Given tetanus/diphtheria/pertussis, acel(Tdap) 7 08/13/12 Given ZMXE-BwS-3xWID 12y+ bivalent booster vax 06/14/22 Recorded SARS-CoV-2 mRNA (otrmimy-nsgk-wwhlt) vax 02/14/22 Recorded SARS-CoV-2 (COVID-19) mRNA BNT-162b2 vac 05/06/21 Given SARS-CoV-2 (COVID-19) mRNA BNT-162b2 vac 11/04/20 Recorded SARS-CoV-2 (COVID-19) mRNA BNT-162b2 vac 10/14/20 Recorded pneumococcal 23-valent vaccine 8 04/07/19 Given 1Result Comment: screening negative 2Result Comment: [facility]# [id number] 3Result Comment: [05/25/2018] [facility] lot number [id number] exp 01/26/2019 [facility] [id number] 4Result Comment: [08/20/2017] [facility] [id number] 5Admin Note: VIM dated 01/29/12 GIVEN TODAY 6Result Comment: [facility]# [id number] 7Admin Note: VIM dated 08/22/11 GIVEN TODAY 8Result Comment: [facility]#[id number] Medications acetaminophen 500 mg oral capsule 2 [...] 4:46:00 PM EDT, Route to Pharmacy Electronically, [facility] [...] 1 Refills, Maintenance, 08/19/24 9:39:00 AM EST, [facility]/pharmacy #2024, 25, APPLY TO [...] 0 Refills, Maintenance, 02/28/21 4:31:00 PM EDT, [place], [facility], Partial fill upon patient request [...] 12:28:00 PM EST, Route to Pharmacy Electronically, [facility] ST[facility] 80000, 157.5, cm, 06/16/24 14:53:00 EST, Height, 145.9, kg, 05/22/23 7:39:00 EDT, Dry Weight Start Date: 07/22/24 Status: Ordered Quantity: 90.0 Unit: capsule Repeat number: 1 gabapentin 300 mg oral capsule 600 mg, 2, capsule, By Mouth, 3 times a day, # 180 capsule, Refills 3, Tot. Refills 3, Maintenance,08/25/22 10:35:00 PM EST, Route to Pharmacy Electronically, [facility]/pharmacy #5, Partial fill upon [...] 1 Refills, Maintenance, 12/28/23 4:17:00 PM EDT, [facility] STORE 57525, 157.5, cm, 10/18/23 15:15:00 EDT, Height, 145.9, [...] 9:39:00 PM EDT, Route to Pharmacy Electronically, [facility]/pharmacy #2024, Partial fill upon patient request, 157.5, [...] 3 Refills, Maintenance,09/22/24 3:54:00 PM EST, Solution, [facility], Partial fill upon patient request if [...] 2 Refills, Maintenance, 08/21/24 3:23:00 PM EST, [facility]/pharmacy #2024, Partial fill upon [...] 0 Refills, Maintenance, 10/20/24 5:26:00 PM EDT, [facility]/pharmacy #2024, 157.5, cm, 06/16/24 14:53:00 EST, Height, 145.9, kg, 05/22/23 7:39:00 EDT, Dry Weight Start Date: 10/20/24 Stop Date: 11/20/24 Status: Ordered Quantity: 30.0 Unit: tablet Repeat number: 1 zolpidem 10 mg oral tablet 1 tablet = 10 mg, By Mouth, Daily at bedtime, # 30 tablet, 0 Refills, Acute 11/23/24 2:58:00 PM EDT,10/23/24 2:57:00 PM EDT, [facility]/pharmacy #202, Partial fill upon [...] tablet, 0 Refills, Maintenance, 09/18/24 12:13:00PM EST, [facility]/pharmacy #5, Partial fill upon [...] Code MRI Safety Implantable Status Assigning Authority [id number] Unknown [id number] Unknown 08/26/24 Unknown Unknown Active GS1 Patient Care team information Care Team Personnel Name: Celestina Trinidad MD Position: [facility] Physician - Primary Care Member Role: PCP Address: [address] [place] [address] Telecom: Name: Hemalatha Lucas RN Position: [facility] RN Member Role: Primary Care Nurse Name: Lauren Mack RN Position: [facility] RN Member Role: Primary Care Nurse Name: Madelaine Ruiz RN Position: [facility] RN Member Role: Primary Care Nurse Name: Lora Santiago RN Position: [facility] SN RN Member Role: Primary Care Nurse Name: Mayco Ro RN Position: [facility] RN Member Role: Primary Care Nurse Name: Heydi Potts RN Position: [facility] SN RN Member Role: Primary Care Nurse Name: Janice Romano LPN Position: [facility] RN Member Role: Primary Care Nurse Name: Nadya Low RN Position: [facility] RN Member Role: Primary Care Nurse Name: Mirna Greenfield RN Position: [facility] RN Member Role: Primary Care Nurse Name: Nessa Bonilla RN Position: [facility] Card Stripper Member Role: Primary Care Nurse Care Team [...]
--- OUTSIDE RECORDS SUMMARY | 2024-10-28 06:27 | XMS_ITS | Data Portability ---
Author Organization [facility] [employer] [facility], [facility], [facility]_Schwertner_Office Address [address] [place] [id number] Care Team Providers Care Academic Support Coordinator Name Role Phone YAW FOSTER Primary Care Provider Unavailabl e YAW FOSTER Referring Provider Unavailable Assessment Encounter Date Assessment [...] XR, ankle , 3 or more view [facility] Depart ment of Radiol ogy [address] [place] [address], [id number] Name: Chon SAHU : 5509 Date of Servic e: [birth year]26 Acct Number : [id number] Order Number : [id number] Locati on: WORD Report Number : [id number] Servic e: REG REF/ Reques ting Physic jeimy: Flaquito caballero,Car ol Catego ry: ORTHOP EDIC RADIOL OGY [facility] Exam: ANKLE 3 VIEWS Right Access ion #: [id number] VH Signs/ Sympto ms: RIGHT ANKLE [...] is seen with margin al osteop hytes environmental sampler iorly. There is no acute fractu re [...] provid ers: Ari caballero, Ari caballero, , [facility] , Ari caballero, , [facility] [address] [place] [address], [address], 02/26/2018 07:00:25 02/22/20 18 02/21/2018 XR, ankle , 3 or more view [facility] Depart ment of Radiol ogy [address] [place] [address], [address] Name: Chon SAHU : [id number] Date of Servic e: 1427 Acct Number : [id number] Order Number : [id number] Locati on: WORD Report Number : [id number] Servic e: REG REF/ Reques ting Physic jeimy: Flaquito caballero,Car vikram Catego ry: ORTHOP EDIC RADIOL OGY [facility] Exam: ANKLE 3 VIEWS Left Access ion #: [id number] VH Signs/ Sympto ms: LEFT ANKLE [...] osteop hytes of the tibial plafon d environmental sampler iorly. There is no acute fractu re [...] provid ers: Ari caballero, Ari caballero, , [facility] , Ari caballero, , [facility] (Radiology) [address] [place] [address], [address], 02/26/2018 07:00:25 Result Notes None recorded. Problems Name Problem SNOMED Code Status Onset Date Resolution Date Notes Provider Name and Address Organization Details Recorded Time Arthritis 2019682 Active [facility] [place], [facility] 8 15:02:06 Asthma [id number] Active Jeannine Abdirahman [employer], [facility] [place], [facility] 8 15:02:11 Problem Notes None recorded. Procedures Surgical History Date Name Laterality Status Provider Name and Address Organization Details Recorded Time Knee arthroscopy/surg franco completed JeannineSweet [facility] [facility] [place], [facility] 02/21/2018 15:03:15 Shoulder joint surgery completed [facility] [place], [facility] 02/21/2018 15:03:21 Elbow arthroscopy completed [facility]ann[facility]Sweet [facility] [place], [facility] 02/21/2018 15:03:26 Unlisted px hands/fingers completed [facility] 02/21/2018 15:03:30 Imaging Results Imaging Date Name Status LastModified by Organiz [facility] Details LastModified Time 02/21/2018 XR, ankle, 3 or more view completed [facility] (Radiology) [address] [place] [address], [address], 02/26/2018 07:00:25 02/21/2018 XR, ankle, 3 or more view completed [facility] (Radiology) [address] [place] [address], [address], 02/26/2018 07:00:25 Procedure Notes None recorded. Medical [...] Updated DateTime 02/21/2018 160.02 cm 50.5 kg/m2 495200.8 3 g 128 mm[Hg] 84 mm[Hg] Jeannine Gary [facility] [employer] [facility] [employer] 8 14:49:38 Social History Question Answer Notes LastModified by Organizat ion Details LastModified Time Tobacco Smoking Status Former Smoker Jeannine galo [facility] [employer] [facility] [employer] [facility] 02/21/2018 15:02:54 What Is Your Level Of [...] SNOMED-CT Code Diagnosis ICD10 Code Diagnosis Note [id number] ARI JOSEPH MD CAB_Main_ Office [address] [place] [phone] 02/21/2018 14:31:27 02/21/2018 16:10:28 Ankle pain [id number] M25.572 M25.571 Health Concerns Section Related Observation LastModified by Organization Detai ls LastModified Time None Recorded Concern Status LastModified by Organization Details LastModified Time None Recorded Advance Directives Directive None Recorded Payers Encounter Date Sequence Insurance Name Policy Number Policy Black Covered Member ID Black Member ID Guarantor Name 02/21/2018 1 [place] [employer] Lilli Sahu [id number] Lilli Sahu 02/21/2018 2 [place] Lilli Sahu [id number] Lilli Sahu Notes Date Note Type Note [...] what was entailed in this. Apparently an chief clerk, a candy department manager and Dr Hsu in [place] have been seen for this. There is [...] discussion after the exam ARI JOSEPH MD [address] [place] [address], [phone], [facility], [facility] 02/21/2018 17:11:12 OBGyn Episode No OBEpisode recorded.
--- OUTSIDE RECORDS SUMMARY | 2024-10-28 06:27 | XMS_ITS | Referral Summary ---
Author Organization [facility] Address [address] [place] [address] Care Team Providers Care Carton Marker Machine Name Role Phone Celestina Trinidad Primary Care [...] dysphoria Transgender MASTECTOMY, SIMPLE Gender dysphoria Transgender Insurance [facility] MEDICARE Care Teams Carton Marker Machine Relationship Specialty Start Date End Date Celestina Trinidad [address] [place] [address] PCP - General Internal Medicine 12/10/23
== END 2024-10-28 06:24 | disposition home or self-care (01) ==
LOC: CF 06:23
PROVIDERS: Visit Provider Anesthesiology
DX: M16.11 Unilateral primary osteoarthritis, right hip (principal); M25.551 Pain in right hip
CPT/HCPCS: 20610; 77002; J2003; J2795; J3301; Q9967

== ENCOUNTER 2024-10-28 12:20 | Outpatient (AMB) | payer MEDICARE, MEDICAID, SELFPAY ==
[2024-10-28 12:38] VITALS: BP 180/90; PULSE 75; RESP 17; O2SAT 98
--- NOTE | 2024-10-28 12:38 | MHC.OFFVIS ---
Vital Signs 10/28/24 12:38 10/28/24 13:45 BP 180/90 H 168/90 H Blood Pressure Location Lt radial Lt radial Position Sitting Sitting Respiration 17 16 Pulse 75 70 Pulse Source Pulse Oximeter Pulse Oximeter Pulse Oximetry (%) 98 96 Oxygen Delivery Method Room Air Room Air Intake Visit Reasons: RIGHT INTRA-ARTICULAR HIP INJECTION Product Marketing Programs Manager Required: No Allergies No Known Allergies Allergy (Verified 10/28/24 12:38) Medication List - Last Reconciled 10/28/24 by Maddison Jones LPN back brace As directed Sacroiliac Belt cholecalciferol (vitamin D3) (Vitamin D3) 100 mcg PO DAILY diclofenac sodium 1% topical BID fluoxetine 10 mg PO DAILY fluoxetine 20 mg PO DAILY levothyroxine 175 mcg PO DAILY meloxicam 15 mg PO DAILY metformin ER 500 mg PO DAILY methocarbamol 1,000 mg (2 x 500 mg) PO TID PRN mometasone-formoterol 50-5 mcg/actuation (Dulera) inhalation oxycodone mg PO tirzepatide (weight loss) (Zepbound) 2.5 mg subcut QWEEK tramadol mg PO zolpidem 10 mg PO BEDTIME PRN HPI Comments Details: Lilli Is today in my office with intention to receive right intra-articular hip steroid injection. She received intra-articular right hip steroid injection in the beginning of July with very good results. She had improved mobility and activities of daily living. She had improved social interactions. She came today in the office with a note from her orthopedic surgeon who requested a physician who would be performing her hip injection to obtain synovial fluid aspiration and perform synovial fluid cell count and I aerobic and anaerobic cultures with specific requirements to grow this cultures for 14 days or more. I explained to the patient the risks and benefits of the procedure. I told her that using large bore 18 gauge needle I maybe able to aspirate synovial fluid from the patient's joint however it is unlikely because her joint silhouette on the last injection was very narrow and unlikely I will be able to perform the requested specimen flexion. Patient understood and nevertheless requested me to try. Review of Systems Const All systems reviewed & are unremarkable except as noted in HPI and below Physical Exam Vital Signs: Last Vital Signs Pulse 70 10/28/24 13:45 Resp 16 10/28/24 13:45 BP 168/90 H 10/28/24 13:45 Pulse Ox 96 04/01/25 13:45 Oxygen Delivery Method Room Air 10/28/24 13:45 General: awake, alert, oriented. Answers questions appropriately. Fully engaged in examination. Skin: warm, dry, intact HEENT: Normocephalic. Hearing intact. Cardiac: External chest normal in appearance. Respiratory: No cough, audible wheezing or stridor. Abdomen: without gross distension. MS: No obvious swelling or deformities. Able to transition from sit to stand unassisted. Ambulates with bilaterally normal heel strike and toe off Bilateral lower extremity strength 5/5 Tenderness over right PSIS [place] positive in the right Thigh thrust positive on the right SI compression positive on the right SLR negative bilaterally Decreased range of motion of lumbar spine Facet loading positive Neurological: Oriented to person, place, time and situation. Thought process intact. Ambulates with the use of a cane/walker Psychiatric: Appropriate mood and affect. Good judgment and insight. Assessment & Plan Assessment & Plan (1) Hip arthritis: Code(s): M16.10 - Unilateral primary osteoarthritis, unspecified hip Category: Medical Plan: The note from orthopedic surgeon stated that during the injection I would need to obtain synovial fluid for laboratory studies delineated as below. Unfortunately I was not able to obtain any synovial fluid. Therefore procedure was performed as a simple intra-articular knee steroid injection (2) Right hip pain: Code(s): M25.551 - Pain in right hip Category: Medical (3) Osteoarthritis of right hip: Code(s): M16.11 - Unilateral primary osteoarthritis, right hip Category: Medical Plan intra-articular right hip steroid injection. Informed consent was explained to the patient. All questions were explained and? answered. The discussion about possible obscure and indolent infection in the right hip was held before the procedure.? The patient was taken inside the operating room where she was positioned left lateral decubitus on the operating table.? Time-out was performed delineating correct site, side, the nature of the procedure, patient's allergy, preoperative antibiotic if needed.? All operating room staff was participating in OR time-out procedure.? The patient stated his name. Non dependent right hip was prepped with ChloraPrep and draped with sterile towels.? The C-arm was brought over the operating field and the picture of bilateral hip joints were obtained on the screen.? The right hip joint was chosen as the target for the injection.? The trochanter position was noted on the screen.? The projection of the trochanter to the skin was noted, the direction of the femoral neck was noted.? The skin was anesthetized using 2% lidocaine at the trochanter area.? 18 gauge 6 inch needle was inserted through the skin and advanced to the hip joint silhouette on under intermittent lateral and anterior posterior views.? When needle entered the Silhouette of the joint aspiration was attempted using 3 cc syringe. Unfortunately no synovial fluid was obtained from the joint. After that the injection of the contrast was performed demonstrating intra-articular spread of the contrast.? After that 6 cc of ropivacaine 0.5% mixed with Kenalog 40 mg was injected into the area.? The needle was removed sterile dressing was applied. The patient tolerated procedure well. Orders: Orders Cell Ct wDiff Synovial Fl Today M16.10 - Unilateral primary osteoarthritis, unspecified hip Anaerobic Culture (incl CULT) Today M16.10 - Unilateral primary osteoarthritis, unspecified hip Routine Culture w Gram Stain Today M16.10 - Unilateral primary osteoarthritis, unspecified hip FL guidance in treatment room Today M16.11 - Unilateral primary osteoarthritis, right hip, M25.551 - Pain in right hip Coding Level of Care Code Est Pt Level 3 (27160) Procedure Only Diagnoses Hip arthritis M16.10 Right hip pain M25.551 Osteoarthritis of right hip M16.11
[2024-10-28 13:45] VITALS: BP 168/90; PULSE 70; RESP 16; O2SAT 96
--- OUTSIDE RECORDS SUMMARY | 2024-10-28 14:33 | XMS_ITS | Clinical Summary ---
Author Organization [facility] Address [address] [place] [address] Care Team Providers Care Inseamer Name Role Phone Celestina Trinidad Primary Care [...] patient's age to complete this topic Insurance [facility] MEDICARE Care Teams Inseamer Relationship Specialty Start Date End Date Celestina Trinidad [address] [place] [address] PCP - General Internal Medicine 12/10/23
--- OUTSIDE RECORDS SUMMARY | 2024-10-28 14:33 | XMS_ITS | Referral Summary ---
Author Organization [facility] Address [address] [place] [address] Care Team Providers Care Malt House Kiln Operator Name Role Phone Celestina Trinidad Primary [...] Transgender MASTECTOMY, SIMPLE Gender dysphoria Transgender Insurance [facility] MEDICARE Care Teams Malt House Kiln Operator Relationship Specialty Start Date End Date Celestina Trinidad [address] [place] [address] PCP - General Internal Medicine 12/10/23
== END 2024-10-28 13:46 | disposition home or self-care (01) ==
LOC: HO.PMCPRC 12:20
PROVIDERS: PCP Pediatrics; Visit Provider Anesthesiology
DX: M25.551 Pain in right hip (principal); M16.11 Unilateral primary osteoarthritis, right hip
CPT/HCPCS: 20610; 77002

== ENCOUNTER 2024-11-19 12:54 | Outpatient (AMB) | payer MEDICARE, MEDICAID, SELFPAY ==
--- NOTE | 2024-11-19 13:03 | A.OFFVIS_ITS ---
Vital Signs 3 11/19/24 13:04 Height 5 ft 2 in Weight 294 lb BMI 53.8 BP 190/81 H Blood Pressure Location Rt radial Position Sitting Respiration 16 Pulse 70 Pulse Source Pulse Oximeter Pulse Oximetry (%) 96 Oxygen Delivery Method Room Air Intake Visit Reasons: RIGHT INTRA-ARTICULAR HIP INJECTION Rivet Tapping Machine Operator Required: No Allergies No Known Allergies Allergy (Verified 11/19/24 13:03) Medication List - Last Reconciled 11/19/24 by Maddison Jones LPN back brace As directed Sacroiliac Belt cholecalciferol (vitamin D3) (Vitamin D3) 100 mcg PO DAILY diclofenac sodium 1% topical BID fluoxetine 10 mg PO DAILY fluoxetine 20 mg PO DAILY levothyroxine 175 mcg PO DAILY meloxicam 15 mg PO DAILY metformin ER 500 mg PO DAILY methocarbamol 1,000 mg (2 x 500 mg) PO TID PRN mometasone-formoterol 50-5 mcg/actuation (Dulera) inhalation oxycodone mg PO tirzepatide (weight loss) (Zepbound) 2.5 mg subcut QWEEK tramadol mg PO zolpidem 10 mg PO BEDTIME PRN HPI Comments Details: Patient presents to the office today for follow up, 3 weeks s/p right intra- articular hip injection Reports 75% pain relief since the injection Concern today is tightness and spasms to the left posterior thigh that has been occuring on a daily basis for the last one month Working with PT and HEP but the symptoms persist Has a follow up with ortho surgeon in 10 days with plan to discuss further. surgery for right hip is pending tho has been delayed d/t BMI despite patients weightloss progress Prior: Telephone visit completed today for follow-up, 2 weeks status post right intra-articular hip injection She reports 80% pain relief with improvement in functional mobility since the injection Denies any untoward effects of the injection Still awaiting SI belt replacement Doing well on Zepbound, hoping to lose enough weight so she can have hip replacement surgery. Prior: Telephone visit completed today for follow-up, 1 month status post right therapeutic sacroiliac joint injection Reports injection was ?successful . Improvement in pain over the SI joint since. Unable to provide detailed account of how much % pain relief as the right hip pain has been over shadowing with severe pain Scheduled with [facility] next month for the right hip pain Has been using the SI joint belt with good effect. Reports it is overused and could benefit with replacement as SIJ belt Continues with physical therapy though pain persists. Using topical NSAIDs, oral NSAIDs, muscle relaxers, prescription medications but pain persists Prior: Telephone visit completed today for follow-up, review of recent MRI and x-rays. Imaging reviewed, results as per below Radiology findings reviewed with patient, questions and concerns were answered. She has been working to find an orthopedic office that will not discriminate because of her weight. She has been unsuccessful so far, unable to find anybody who would be willing to proceed with hip replacement surgery. Finding this frustrating as she is suffering in pain and her mobility/function are declining. Prior: Telephone visit completed today for follow up, patient with some questions about medications Has been taking Methocarbamol with minimal effect, she was advised yesterday she can increase to 1000mg TID as needed. Has questions about dosing and when to take in regards to her other medications continues with right SIJ pain and reports worsening function and mobility using two canes and at times a walker for ambulation has appt with [facility] for eval next Sunday Prior: Telephone visit performed today for follow-up, 2 days status post right diagnostic sacroiliac joint injection She reports for 3 hours after the procedure she had no pain and her mobility was significantly improved. After this pain continued to improve though she did find that the instability and difficulty with walking and lifting her right leg remained Overall she would reports 80% pain relief in the hours after the procedure. She would like referral to spine surgeon can evaluate her for SI fusion with external hardware Intake note: Lilli is a very pleasant 63-year-old who presents the office today for evaluation and management of their chronic right lower back pain Patient has been suffering with this pain for greater than 10 years, does endorse many accidents, falls and injuries in the past Right lower back pain with radiation down the thigh to the knee. Pain does not travel past the knee. Denies numbness, tingling, weakness of either lower extremity. History of bilateral knee replacements, does endorse chronic knee pain also Pain today is rated as a 10/10, constant. Pain is exacerbated by moving, bending, twisting, sitting for extended period of time, standing for extended period of time, doing housework. Patient is currently taking tramadol every 4-6 hours with oxycodone as needed. Cyclobenzaprine 10 mg 3 times daily as needed. Meloxicam daily. All without improvement of the pain. Currently attending formal physical therapy as well as seeing a physical therapist on their own. Working on core strength but there pain persists. Currently also doing home exercise therapy and water aerobics Patient has been using a sacroiliac joint belt without improvement of her pain. Endorses some urinary dribbling over the last several months, denies any loss of bladder without sensory awareness. Denies saddle anesthesia. Denies loss of bowel. In terms of muscle damage condition is described as spasming, stabbing, sharp, shooting, tiring, exhausting, cramping, numb. Pain is negatively impacting patient's enjoyment of life, general activity, recreational activities, relationships with people, sleep, walking, dressing, yd work, cooking, hygiene, housework. Review of Systems Const All systems reviewed & are unremarkable except as noted in HPI and below Physical Exam Vital Signs: Last Vital Signs Pulse 70 11/19/24 13:04 Resp 16 11/19/24 13:04 BP 190/81 H 11/19/24 13:04 Pulse Ox 96 11/19/24 13:04 Oxygen Delivery Method Room Air 11/19/24 13:04 BMI result Body Mass Index 53.8 General: awake, alert, oriented. Answers questions appropriately. Fully engaged in examination. Skin: warm, dry, intact HEENT: Normocephalic. Hearing intact. Cardiac: External chest normal in appearance. Respiratory: No cough, audible wheezing or stridor. Abdomen: without gross distension. MS: No obvious swelling or deformities. Able to transition from sit to stand with boost assistance Neurological: Oriented to person, place, time and situation. Thought process intact. Ambulates with the use of a cane/walker Psychiatric: Appropriate mood and affect. Good judgment and insight. Results Reviewed Results Reviewed: 04/202404/17/24 MR/MR lumbar spine wo con FINDINGS: Minimal left convex curvature of the lumbar spine. Degenerative grade 1 anterolisthesis of L4 on L5. Moderate degenerative disc disease from L2-S1. Mild degenerative disc disease at all additional levels. Associated mixed Modic type discogenic endplate changes including Modic type I discogenic edema from T12-S1 . Mild marrow edema within the posterior elements of L3-S1 consistent with degenerative stress reaction. No additional suspicious marrow edema. The vertebral body heights are well-maintained. The conus medullaris terminates at the level of L1. The distal spinal cord is normal in appearance. No significant abnormalities of the paraspinal musculature. Limited evaluation of the intra-abdominal structures without significant abnormalities. The abdominal aorta is of normal contour and caliber. AXIAL SPINAL LEVELS: L1-L2: Mild diffuse disc bulge. There is mild bilateral facet joint arthropathy. There is mild bilateral neural foraminal stenosis. There is no spinal canal stenosis. L2-L3: Mild diffuse disc bulge. There is severe right and moderate left facet joint arthropathy. There is moderate bilateral neural foraminal stenosis. There is stenosis of the subarticular zones with moderate spinal canal stenosis centrally. L3-L4: Moderate diffuse disc bulge with posterior osseous ridging. There is moderate bilateral facet joint arthropathy. There is severe bilateral neural foraminal stenosis. There is stenosis of the subarticular zones with moderate spinal canal stenosis centrally. L4-L5: Prominent diffuse disc bulge exacerbated by uncovering from anterolisthesis. There is severe bilateral facet joint arthropathy. There is moderate to severe bilateral neural foraminal stenosis. There is stenosis of the subarticular zones with moderate to severe spinal canal stenosis centrally. L5-S1: Moderate diffuse disc bulge. Left lateral osteophyte complex abutting the exited left L5 nerve root. There is severe right and moderate left facet joint arthropathy. There is moderate to severe left and moderate right neural foraminal stenosis. There is narrowing of the subarticular zones with no overt spinal canal stenosis centrally. IMPRESSION: Moderate to advanced multilevel degenerative spondyloarthropathy of the lumbar spine as described in detail above. Most notably, there is moderate to severe spinal canal stenosis at L4-L5. Moderate spinal canal stenoses at L2-L3 and L3-L4. Narrowing/stenoses of the subarticular zones from L2-S1. Moderate to severe neural foraminal stenoses from L2-S1. 06/2023 XR LS 04/2022 MRI LS Assessment & Plan Assessment & Plan (1) Sacroiliac joint dysfunction of right side: Code(s): M53.3 - Sacrococcygeal disorders, not elsewhere classified Category: Medical (2) Bilateral knee pain: Code(s): M25.561 - Pain in right knee; M25.562 - Pain in left knee Category: Medical (3) Gait instability: Code(s): R26.81 - Unsteadiness on feet Category: Medical (4) Spinal stenosis: Code(s): M48.00 - Spinal stenosis, site unspecified Category: Medical Plan Telephone visit completed today for follow-up, status post right intraarticular hip injection Endorses 75% pain relief with improvement in function and mobililty since the injection. Refill of Methocarbamol sent to pharmacy Patient requesting RX for new SI belt be resent, office notes to be sent with RX per patient request. Follow up with ortho surgeon as planned All questions and concerns have been answered and patient agrees with the plan. Follow up in 2 months, sooner if needed. Medications: Refilled 2 methocarbamol No driving while taking this medication. 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
[2024-11-19 13:04] VITALS: BP 190/81; PULSE 70; RESP 16; O2SAT 96; BMI 53.8
--- OUTSIDE RECORDS SUMMARY | 2024-11-19 15:13 | XMS_ITS | Data Portability ---
Author Organization [facility] [employer] [facility], [facility], [facility]_[place]_Office Address [address] [place] [phone] Care Team Providers Care Sales Advisory Manager Name Role Phone YAW FOSTER Primary Care [...] XR, ankle , 3 or more view [facility] Dep[facility] ment of Radiol ogy [address] [place] [address], [id number] Name: Chon SAHU : [id number] Date of Servic e: 1426 Acct Number : [id number] Order Number : [id number] Locati on: W[place] Report Number : [id number] Servic e: REG REF/ Reques ting Physic jeimy: Flaquito caballero,Car ol Catego ry: ORTHOP EDIC RADIOL OGY [facility] Exam: ANKLE 3 VIEWS Right Access ion #: [id number] VH Signs/ Sympto ms: RIGHT ANKLE [...] is seen with margin al osteop hytes weaver hand iorly. There is no acute fractu re [...] provid ers: Ari caballero, Ari caballero, , [facility] , Ari caballero, , [facility] [address] [place] [address], [id number], 02/26/2018 07:00:25 02/22/20 18 02/21/2018 XR, ankle , 3 or more view [facility] Depart ment of Radiol ogy [address] [place] [address], [phone] Name: Chon SAHU : [id number] Date of Servic e: 1427 Acct Number : [id number] Order Number : [id number] Locati on: WORD Report Number : [id number] Servic e: REG REF/ Reques ting Physic jeimy: Flaquito caballero,Car vikram Catego ry: ORTHOP EDIC RADIOL OGY [facility] Exam: ANKLE 3 VIEWS Left Access ion #: [id number] VH Signs/ Sympto ms: LEFT ANKLE [...] osteop hytes of the tibial plafon d weaver hand iorly. There is no acute fractu re [...] provid ers: Ari caballero, Ari caballero, , [facility] , Ari caballero, , [facility] (Radiology) [address] [place] [address], [id number], 02/26/2018 07:00:25 Result Notes None recorded. Problems Name Problem SNOMED Code Status Onset Date Resolution Date Notes Provider Name and Address Organization Details Recorded Time Arthritis 9428495 [facility] [employer], [facility], [facility] 8 15:02:06 Asthma 107951061 Active Jeannine Abdirahman [employer], [facility], [facility] 8 15:02:11 Problem Notes None recorded. Procedures Surgical History Date Name Laterality Status Provider Name and Address Organization Details Recorded Time Knee arthroscopy/surg franco [facility], [facility] 02/21/2018 15:03:15 Shoulder joint surgery completed [facility], [facility] 02/21/2018 15:03:21 Elbow arthroscopy [facility], [facility] 02/21/2018 15:03:26 Unlisted px hands/fingers [facility] 02/21/2018 15:03:30 Imaging Results Imaging Date Name Status LastModified by [facility]iz [facility] Details LastModified Time 02/21/2018 XR, ankle, 3 or more view completed [facility] (Radiology) [address] [place] [address], [id number], 02/26/2018 07:00:25 02/21/2018 XR, ankle, 3 or more view completed [facility] (Radiology) [address] [place] [address], [id number], 02/26/2018 07:00:25 Procedure Notes None recorded. Medical [...] Updated DateTime 02/21/2018 160.02 cm 50.5 kg/m2 483496.8 3 g 128 mm[Hg] 84 mm[Hg] Jeannine Gary [facility] [employer] [facility] 8 14:49:38 Social History Question Answer Notes LastModified by Organizat ion Details LastModified Time Tobacco Smoking Status Former Smoker Jeannine galo [facility] [employer] [facility] 02/21/2018 15:02:54 What Is Your [...] Gout N Blood Transfusion N Hernia N Lung Disease N COPD N Pacemaker N Edema N Deep Vein Thrombosis N Varicose Veins N Orthotics N Arthritis Y Blood Clot N Cancer N Stroke N Leg or Foot Ulcers N Raynaud's Disease N Polio N High Cholesterol N Liver Disease N Organ Transplant N Rheumatoid Arthritis N Dialysis N Foot Deformity N Fibromyalgia N Kidney Disease N Heart Problems N [...] SNOMED-CT Code Diagnosis ICD10 Code Diagnosis Note [id number] ARI JOSEPH MD [facility]_Main_ Office [address] [place] [phone] 02/21/2018 14:31:27 02/21/2018 16:10:28 Ankle pain [id number] M25.572 M25.571 Health Concerns Section Related Observation LastModified by Organization Detai ls LastModified Time None Recorded Concern Status LastModified by Organization Details LastModified Time None Recorded Advance Directives Directive None Recorded Payers Encounter Date Sequence Insurance Name Policy Number Policy Black Covered Member ID Black Member ID Guarantor Name 02/21/2018 1 [place] [employer] Lilli Sahu [id number] Lilli Sahu 02/21/2018 2 [place] Lilli Sahu [id number] Lilli Sahu Notes Date Note Type Note [...] what was entailed in this. 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 There is [...] discussion after the exam ARI JOSEPH MD [address] [place] [address], [phone], [facility], [facility] 02/21/2018 17:11:12 OBGyn Episode No OBEpisode recorded.
--- OUTSIDE RECORDS SUMMARY | 2024-11-19 15:13 | XMS_ITS | Referral Summary ---
Author Organization [facility] Address [address] [place] [address] Care Team Providers Care Marine Safety Officer Name Role Phone Celestina Trinidad Primary Care [...] Gender dysphoria Transgender Insurance [facility] MEDICARE Care Teams Marine Safety Officer Relationship Specialty Start Date End Date Celestina Trinidad [address] [place] [address] PCP - General Internal Medicine 12/10/23
--- OUTSIDE RECORDS SUMMARY | 2024-11-19 15:13 | XMS_ITS | Clinical Summary ---
Author Organization [facility] Address [address] [place] [address] Care Team Providers Care Frontend Engineer Name Role Phone Celestina Trinidad Primary Care [...] - Risk 60-74 years 1-dose series) 2022 Zoster Vaccines (2 of 2) 06/27/2024 05/02/2024 Alcohol/Substance Use Screening 07/30/2024 05/20/2024 Depression Screening and Follow-Up 07/30/2024 Social Drivers of Health Annual Screening 07/30/2024 Influenza Vaccine (Season Ended) 2025 07/13/2023, 06/08/2022, 05/06/2021, Additional history exists DTaP,Tdap,and Td Vaccines (3 - Td or Tdap) 08/21/2032 08/21/2022, 08/13/2012 COVID-19 Vaccine Completed 05/02/2024, 01/2024, 05/15/2023, Additional history exists Hepatitis B Vaccines Aged Out No long er eligible based on patient's age to complete this topic Insurance [facility] MEDICARE Care Teams Frontend Engineer Relationship Specialty Start Date End Date Celestina Trinidad [address] [place] [address] PCP - General Internal Medicine 12/10/23
== END 2024-11-19 13:44 | disposition home or self-care (01) ==
LOC: HO.PMC 12:55
PROVIDERS: PCP Pediatrics; Visit Provider Registered Nurse Emergency
DX: M53.3 Sacrococcygeal disorders, not elsewhere classified (principal); M25.561 Pain in right knee; M25.562 Pain in left knee; R26.81 Unsteadiness on feet; M48.00 Spinal stenosis, site unspecified
CPT/HCPCS: 99213; G2211

== ENCOUNTER → 2024-11-19 12:54 | Outpatient (BNVA) | payer MEDICARE, MEDICAID, SELFPAY | PROVIDERS: PCP Pediatrics; Visit Provider Registered Nurse Emergency | DX: M53.3 Sacrococcygeal disorders, not elsewhere classified (principal); M25.561 Pain in right knee; M25.562 Pain in left knee; R26.81 Unsteadiness on feet; M48.00 Spinal stenosis, site unspecified | CPT/HCPCS: 99212 ==

== ENCOUNTER 2025-05-05 06:23 | Outpatient (REF) | payer MEDICARE, MEDICAID, SELFPAY ==
--- OUTSIDE RECORDS SUMMARY | 2015-11-12 | XMS_ITS | Encounter Summary ---
Author Organization [facility] Address [address] [place] [address] Phone Care Team Providers Care Manufacturing Operations Manager Name Role Phone Patrick Mathur MD Primary Care Provider Encounter Details Date Type Department Care Team (Late st Contact Info) Description 11/12/2015 Hospital Encounter [facility] [address] [place] [address] Jeferson Rondon Jp, MD [address] [facility] [address] [place] [address] [email or web address] Social History Tobacco Use Types [...] 12:06 PM EDT Vandana Barrios RN * [place] Suicide Severity Rating Scale (Screener/Recent Self-Report) Question Answer Date of Assessment Author 1. Wish to be (Past 1 Month) No 04/15/2025 12:06 PM EDT Vandana Barrios RN 2. Non-Specific Active Suici crissy Thoughts (Past 1 Month) No 04/15/2025 12:06 PM EDT Lindsey Barrios RN 6. Suicidal Behavior (Lifetime) No 12:06 PM EDT Vandana Barrios RN documented as of this encounter Plan of Treatment Not on file documented as of this encounter Procedures Procedure Name Priority Date/Time Associated Diagnosis Comments MRI UPPER EXTREMITY OUTSIDE (NO INTERPRETATION) Routine 11/12/2015 12:00 AM EDT documented in this encounter Results * MRI Outside Upper Extremity (No Interpretation) (11/12/2015 12:00 AM EDT) Narrative [facility] [place] - 12/24/2015 10:46 AM EDT This study is for PACS storage only and not for interpretation. Procedure Note SYSTEMGENERATED, DOCUMENTATION - 12/24/2015 This study is for PACS storage only and not for interpretation. us Jeferson Rondon MD IMG OUTSIDE IMAGING W/OUT INTER PRETATION Final Result [facility] [place] documented in this encounter Visit Diagnoses Not on filedocumented in this encounter Care Teams Manufacturing Operations Manager Relationship Specialty Start Date End Date Patrick Mathur MD [address] [place] [phone] [email or web address] PCP - General 11/09/15 12/02/23 documented as of this encounter Additional Source Comments The information contained in this document represents components of the legal health record. It is not the complete legal health record.[facility]
--- NOTE | ~2025-05-05 | FL_ITS ---
EXAMINATION: FL GUIDANCE ONLY HISTORY: M16.11 - Unilateral primary osteoarthritis, right hip COMPARISON: None available. TECHNIQUE: Fluoroscopy time: 13.0 seconds. Cumulative Dose: 9.63 mGy. Images: 3. FINDINGS: Fluoroscopic spot films of the right hip demonstrate a needle and contrast material in place. FL/FL guidance in treatment room IMPRESSION: Fluoroscopy during procedure. Please see procedure report for additional information. Electronically signed by: Mario Hannah MD 05/05/2025 03:52 PM EDT
--- OUTSIDE RECORDS SUMMARY | 2025-05-05 06:25 | XMS_ITS | Encounter Summary ---
Author Organization [facility] Address [address] [place] [address] Phone Care Team Providers Care Oim Architect Name Role Phone Patrick Mathur MD Primary Care Provider [phone] Celestina Trinidad MD Primary Care Provid er Encounter Details Date Type Department Care Team (Late st Contact Info) Description 10/06/2021 Transcribe Orders [facility] [address] [place] [address] Celina Mclean MD [address] [place], [place] [id number] [email or web address] Social History Tobacco Use Types Packs/Day Years Used Date Smoking Tobacco: Former Smokeless Tobacco: Never Alcohol Use Standard Drinks/Week Comments Yes 0 (1 standard drink = 0.6 oz pur e alcohol) 2/MO Comments Unknown Sex and Gender Information Value Date Recorded Sex Assigned at Not on file Legal Sex Female 7:41 PM EST Gender Identity Genderqueer/Queer 01/20/2025 1:3 5 PM EDT Sexual Orientation Queer 01/20/2025 1: 35 PM EDT documented as of this encounter Plan of Treatment Not on file documented as of this encounter Visit Diagnoses Not on filedocumented in this encounter Care Teams Oim Architect Relationship Specialty Start Date End Date Patrick Mathur MD [address] [place] [address] [email or web address] PCP - General 11/09/15 12/02/23 Celestina Trinidad MD [address] [address] PCP - General Internal Medicine 12/03/23 documented as of this encounter Additional Source Comments The information contained in this document represents components of the legal health record. It is not the complete legal health record.[facility]
--- OUTSIDE RECORDS SUMMARY | 2025-05-05 06:26 | XMS_ITS | Encounter Summary ---
Author Organization [facility] Address [address] [place] [address] Phone Care Team Providers Care Handicapped Teacher Name Role Phone Patrick Mathur MD Primary Care Provider Celestina Trinidad MD Primary Care Provid er Encounter Details Date Type Department Care Team (Late st Contact Info) Description 04/27/2022 Transcribe Orders Virtual Department [address] [place] [address] Shae Mosquead, DO [address] [address] Social History Tobacco Use Types Packs/Day Years [...] on filedocumented in this encounter Care Teams Handicapped Teacher Relationship Specialty Start Date End Date Patrick Mathur MD [address] [place] [address] PCP - General 11/09/15 12/02/23 Celestina Trinidad MD [address] [address] PCP - General Internal Medicine 12/03/23 documented as of this encounter Additional Source Comments The information contained in this document represents components of the legal health record. It is not the complete legal health record.[facility]
--- OUTSIDE RECORDS SUMMARY | 2025-05-05 06:26 | XMS_ITS | Clinical Summary ---
Author Organization [facility] Address [address] [place] [address] Care Team Providers Care Bisque Brusher Name Role Phone Celestina Trinidad Primary Care [...] of Health Annual Screening 07/30/2024 Influenza Vaccine (#1) 2025 3, 06/08/2022, 05/06/2021, Additional history exists DTaP,Tdap,and Td Vaccines (3 - Td or Tdap) 08/21/2032 08/21/2022, 08/13/2012 COVID-19 Vaccine Completed 05/02/2024, 01/2024, 05/15/2023, Additional history exists Hepatitis B Vaccines Aged Out No long er eligible based on patient's age to complete this topic Insurance [facility] MEDICARE Care Teams Bisque Brusher Relationship Specialty Start Date End Date Celestina Trinidad [address] [place] [address] PCP - General Internal Medicine 12/10/23
--- OUTSIDE RECORDS SUMMARY | 2025-05-05 06:26 | XMS_ITS | Encounter Summary ---
Author Organization [facility] Address [address] [place] [address] Phone Care Team Providers Care Medical Investigator Name Role Phone Patrick Mathur MD Primary Care Provider Celestina Trinidad MD Primary Care Provid er Encounter Details Date Type Department Care Team (Latest Contact Info) Description 08/20/2018 Transcribe Orders [facility] Laboratory [address] [place] [address] Cece Sheth PA-C [address] [place] [address] [email or web address] Change in bowel habits (Primary Dx) Social History Tobacco Use Types Packs/Day Years [...] on file documented as of this encounter Results * Tissue transglutaminase IgA (08/20/2018 2:31 PM EST) TTG IGA ANTIBODY <1.2 <4.0 (Negative) U/mL [facility] DPT OF LAB MED AND PAT+ Blood 08/20/2018 2:31 PM EST 08/20/2018 2:38 PM EST Cece Sheth PA-C LAB BLOOD ORDERABLES Final Resu lt Performing Organization Address City/[facility]/ZIP Co de Phone Number [facility] DPT OF LAB MED AND PAT+ [address] [place] [address] * (ABNORMAL) TSH (08/20/2018 2:30 PM EST) TSH 29.06(H) 0.27 - 4.20 uIU/mL [facility] Blood 08/20/2018 2:30 PM EST 08/20/2018 2:38 PM EST Cece Sheth PA-C LAB BLOOD ORDERABLES Final Resu lt Performing Organization Address [facility]/ZIP Co de Phone Number [address] [address] * (ABNORMAL) C-Reactive Protein (08/20/2018 2:30 PM EST) Pathologist [facility] C REACTIVE PROTEIN 6.8(H) 0.0 - 4.0 mg/L [facility] Blood 08/20/2018 2:30 PM EST 08/20/2018 2:38 PM EST Cece Sheth PA-C LAB BLOOD ORDERABLES Final Resu lt Performing Organization Address [facility]/ZIP Co de Phone Number [address] [address] * Comprehensive metabolic panel (08/20/2018 2:30 PM EST) SODIUM 140 133 - 146 mmol/L [facility] POTASSIUM 4.2 3.3 - 5.1 mmol/L [facility] CHLORIDE 101 96 - 108 mmol/L [facility] CO2 28 21 - 35 mmol/L [facility] BUN 18 6 - 19 mg/dL [facility] CREATININE 0.60 0.5 - 1.5 mg/dL [facility] GLUCOSE 92 70 - 99 mg/dL [facility] ALBUMIN 4.2 3.9 - 4.8 g/dL [facility] TOTAL PROTEIN 7.5 6.5 - 8.0 g/dL [facility] CALCIUM 9.4 8.4 - 10.3 mg/dL [facility] ALKALINE PHOSPHATASE 97 39 - 117 U/L [facility] TOTAL BILIRUBIN 0.3 0.0 - 1.2 mg/dL [facility] AST 28 0 - 37 U/L [facility] ALT 26 0 - 40 U/L [facility] GLOBULIN 3.3 1 - 4.8 g/dL [facility] EGFR 102 >59 mL/min/1.7 3m2 [facility] Comment:If patient is black, multiply result by 1.159. Estimated glomerular filtration rate calculated using the CKD-EPI equation. ANION GAP 15 10 - 20 mmol/L [facility] Blood 08/20/2018 2:30 PM EST 08/20/2018 2:38 PM EST us Cece Sheth PA-C LAB BLOOD ORDERABLES Final Resu lt [facility] [address] [place] [address] * CBC (08/20/2018 2:30 PM EST) WBC 8.26 3.40 - 11.20 K/uL [facility] RBC 4.19 3.80 - 4.80 M/uL [facility] HGB 13.3 12.0 - 15.0 g/dL [facility] HCT 40.1 36.0 - 46.0 % [facility] PLT 332 130 - 400 K/uL [facility] MCV 95.7 79.0 - 98.0 [facility] MCH 31.7 27.0 - 34.8 pg [facility] MCHC 33.2 31.5 - 36.0 g/dL [facility] RDW 12.6 10.8 - 14.6 % [facility] MPV 9.6 9.4 - 12.4 [facility] NRBC 0.00 0.00 /100 WBCs [facility] ABSOLUTE NRBC 0.00 0.00 K/uL [facility] Blood 08/20/2018 2:30 PM EST 08/20/2018 2:38 PM EST us Cece STOKES-C LAB BLOOD ORDERABLES Final Resu lt Performing Organization Address [facility] Co de Phone Number [address] [address] * Immunoglobulin A (08/20/2018 2:30 PM EST) IgA 239 70 - 400 mg/dL [facility] Blood 08/20/2018 2:30 PM EST 08/20/2018 2:38 PM EST us Cece STOKES-C LAB BLOOD ORDERABLES Final Resu lt Performing Organization Address [facility] de Phone Number [address] [address] documented in this encounter Visit Diagnoses Diagnosis Change in bowel habits- Primary Other symptoms involving digestive system documented in this encounter Care Teams Medical Investigator Relationship Specialty Start Date End Date Patrick Mathur MD [address] [place] [address] PCP - General 11/09/15 12/02/23 Celestina Trinidad MD [address] [address] PCP - General Internal Medicine 12/03/23 documented as of this encounter Additional Source Comments The information contained in this document represents components of the legal health record. It is not the complete legal health record.[facility]
--- OUTSIDE RECORDS SUMMARY | 2025-05-05 06:26 | XMS_ITS | Encounter Summary ---
Author Organization [facility] Address [address] [place] [address] Phone Care Team Providers Care Animal Daycare Provider Name Role Phone Patrick Mathur MD Primary Care Provider Celestina Trinidad MD Primary Care Provid er Encounter Details Date Type Department Care Team (Late st Contact Info) Description 09/17/2018 Procedure Pass [facility] Endoscopy Admitting Dept Virtual Department [address] [place] [address] Social History Tobacco Use Types Packs/Day Years [...] on filedocumented in this encounter Care Teams Animal Daycare Provider Relationship Specialty Start Date End Date Patrick Mathur MD [address] [place] [address] PCP - General 4/12/16 5/5/24 [facility] [place] [address] PCP - General Internal Medicine 12/03/23 documented as of this encounter Additional Source Comments The information contained in this document represents components of the legal health record. It is not the complete legal health record.[facility]
--- OUTSIDE RECORDS SUMMARY | 2025-05-05 06:26 | XMS_ITS | Clinical Summary ---
Author Organization [facility] Address [address] [place] [address] Phone Care Team Providers Care Entrepreneur Name Role Phone Celestina Trinidad MD Primary Care Provid er Allergies No known active allergies Medications zolpidem (AMBIEN) 10 mg tablet Take 10 mg by mouth nightly as needed for sleep. Active meloxicam (MOBIC) 15 MG tablet Take 15 mg by mouth daily. Active FLUoxetine (PROZAC) 20 MG capsule Take 40 mg by mouth daily. Taken with 10 mg dose for total of 30 mg daily Active traMADoL (ULTRAM) 50 mg tablet Take 50 mg by mouth every 6 (six) hours as needed for pain (specific location in comments). 2 Active levothyroxine (SYNTHROID, LEVOTHROID) 137 MCG tablet Take 175 mcg by mouth daily. 1 tablet 6 days a week and 2 tablets on day #7 2 Active acetaminophen (TYLENOL) 325 mg tablet Take 2 tablets (650 mg total) by mouth every 6 (six) hours as needed. 0 2 Active Additional Information Patient taking differently:650 mg Oral Every 6 hours PRN,pain (specific location in comments), Reported on 04/15/2025 amLODIPine (NORVASC) 5 MG tablet Take 1 tablet (5 mg total) by mouth daily. 30 tablet 2 Active VITAMIN D3 50 mcg (2,000 unit) capsule Take 4,000 Units by mouth every morning. 4 Active DULERA 50-5 mcg/actuation HFAA PLEASE SEE ATTACHED FOR DETAILED DIRECTIONS 4 Active oxyCODONE 5 MG immediate release tablet Take 5 mg by mouth every 8 (eight) hours as needed. 4 Active tiZANidine (ZANAFLEX) 4 MG tablet PLEASE SEE ATTACHED FOR DETAILED DIRECTIONS 5 Active ZEPBOUND 10 mg/0.5 mL subcutaneous pen Inject 12.5 mg under the skin once a week. Active metFORMIN (GLUCOPHAGE-XR) 500 MG 24 hr tablet Take 1 tablet by mouth every morning. 5 Active gabapentin (NEURONTIN) 300 MG capsule Take 600 mg by mouth. 3 Active ketorolac (TORADOL) 10 mg tablet Take 1 tablet (10 mg total) by mouth every 6 (six) hours as needed for pain (specific location in comments). 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 It looks enough like this that I am empirically starting amlodipine 2.5 daily and Pletal. She was encouraged to continue with smoking cessation, marijuana sensation and avoid stimulants. ED discussed the case with cardiology and I will consult them to see her in person. I will check for other rheumatic causes with complement levels, rheumatoid factor, MILA, anticentromere, anti-SCL 70, etc. I will continue with her aspirin. Pain control was not achieved with oxycodone. ED physician is doing a digital block, but she has also tolerated gabapentin in the past for her knee surgery. I will order this as hopefully this will treat more of her neuropathic pain symptoms. She was informed that she may end up losing that finger, but we will see how these measures do at restoring blood flow to the finger. She was instructed to avoid submersion in cold water. Moderate persistent asthma 07/01/2022 Assessment & Plan (07/01/2022 3:54 AM EST): I will give scheduled Combivent in place of an oral Ellipta. Hypothyroidism 07/01/2022 Assessment & Plan (07/01/2022 3:54 AM EST): Continue levothyroxine. Depression with anxiety 07/01/2022 Assessment & Plan (07/01/2022 3:54 AM EST): Continue outpatient medications. Encounters Date Type Department Care Team Description 04/15/2025 12:52 PM EDT - 04/15/2025 6:02 PM EDT Emergency [facility] [address] [place] [address] Discharge Disposition: Home or Self Care from Last 3 Months Family History Medical History Relation Comments Dementia Father Vascular Heart failure Father Stroke Father Dementia Mother Lewy body Autoimmune disease Neg Hx Bleeding/Clotting Disorder Neg Hx Relation Status Comments Father Alive Mother Social History Tobacco Use Types Packs/Day Years Used Date Smoking Tobacco: Former Smokeless Tobacco: Never Tobacco Cessation:Counseling Given: Not Answered Alcohol Use Standard Drinks/Week Comments Yes 0 [...] Orientation Queer 01/20/2025 1: 35 PM EDT Last Filed Vital Signs Vital Sign Reading Time Taken Comments Blood Pressure 171/79 04/15/2025 2:54 PM EDT Pulse 74 04/15/2025 12:08 PM EDT Temperature 36.8 C (98.2 F) 04/15/2025 12:08 PM EDT Respiratory Rate 20 04/15/2025 12:08 PM EDT Oxygen Saturation 100% 04/15/2025 2:54 PM EDT Inhaled Oxygen Concentration - - Weight 135.2 kg (298 lb) 01/27/2025 3:15 PM EDT Height 157.2 cm (5' 1.89 ) 11/26/2024 1:35 PM ED T Body Mass Index 54.7 11/26/2024 1:35 PM EDT Plan of Treatment Health Maintenance Due Date Last Done Comments LIPID PANEL 1960 DEPRESSION SCREENING 1974 SMOKING Hx and SMOKELESS TOBACCO SCREENING 1975 HEPATITIS C SCREENING 1980 HIV ONE-TIME SCREENING (18-65 YEARS) 1980 PAP SMEAR 1983 MAMMOGRAM 2002 COLOGUARD 2007 FIT TEST 2007 FOBT 2007 SIGMOIDOSCOPY 2007 VIRTUAL COLONOSCOPY 2007 RSV VACCINE (1 - Risk 50-74 years 1-dose series) 2012 TSH LEVEL 08/20/2019 08/20/2018 PNEUMOCOCCAL VACCINES (50+ years) (2 of 2 - PCV) 04/07/2020 04/07/2019 Adult Td,Tdap Booster 08/13/2022 08/13/2012 INFLUENZA VACCINE (#1) 2025 , 07/13/2023, 06/08/2022, Additional history exists COVID-19 VACCINE ( season) 2025 05/02/2024, 12/04/2023, 05/15/2023, Additional history exists CREATININE LEVEL 04/15/2026 04/15/2025, 09/2021, 07/01/2022, Additional history exists SCREENING FOR DIABETES 04/15/2028 04/15/2025, 2021 COLONOSCOPY 09/17/2028 09/17/2018 COLORECTAL CANCER SCREENING 09/17/2028 ZOSTER VACCINES Completed 08/20/2024, 05/02/2024 HEPATITIS A VACCINES Aged Out No long er eligible based on patient's age to complete this topic HIB VACCINES Aged Out No longer eligi ble based on patient's age to complete this topic MENINGOCOCCAL VACCINES (ACWY) Aged Out No longer eligible based on patient's age to complete this topic MENINGOCOCCAL VACCINES (B) Aged Out N o longer eligible based on patient's age to complete this topic Medical Devices Not on file Procedures Procedure Name Priority Date/Time Associated Diagnosis Comments LIPASE STAT 04/15/2025 2:14 PM EDT LFTS (HEPATIC PANEL) STAT 04/15/2025 2:14 PM EDT CBC AND DIFFERENTIAL STAT 04/15/2025 2:14 PM EDT BASIC METABOLIC PANEL STAT 04/15/2025 2:14 PM EDT XR CHEST PA AND LATERAL 2 VIEWS Routine 04/15/2025 2:08 PM EDT URINALYSIS W/REFLEX URINE CULTURE STAT 04/15/2025 2:03 PM EDT ENDOSCOPY, COLON 09/17/2018 1:17 PM EST TSH Routine 08/20/2018 2:30 PM EST Change in bowel habits from Last 3 Months or Most Recently Relevant to Health Maintenance Results * (ABNORMAL) LFTs (hepatic panel) (04/15/2025 2:14 PM EDT) ALKALINE PHOSPHATASE 123(H) 39 - 117 U/L [facility] TOTAL BILIRUBIN 0.4 0.0 - 1.2 mg/dL [facility] DIRECT BILIRUBIN <0.1 0.0 - 0.2 mg/dL [facility] Bilirubin (Indirect) NOT CALCULATED 0 - 1.5 mg/dL [facility] AST 21 0 - 37 U/L [facility] ALT 13 0 - 40 U/L [facility] TOTAL PROTEIN 8.0 6.5 - 8.0 g/dL [facility] ALBUMIN 4.4 3.9 - 4.8 g/dL [facility] GLOBULIN 3.6 1 - 4.8 g/dL [facility] A/G Ratio 1.22 1.00 - 4.80 RATIO [facility] Blood 04/15/2025 2:14 PM EDT 04/15/2025 2:28 PM EDT us Gladys Berman PA-C LAB BLOOD ORDERABLES Final Result [facility] [address] [place] [address] * CBC and differential (04/15/2025 2:14 PM EDT) WBC 7.14 4.00 - 11.00 K/uL [facility] RBC 4.20 4.00 - 5.20 M/uL [facility] HGB 13.0 12.0 - 16.0 g/dL [facility] HCT 40.3 36.0 - 46.0 % [facility] PLT 343 150 - 450 K/uL [facility] MCV 96.0 80.0 - 100.0 fL [facility] MCH 31.0 27.0 - 31.0 pg [facility] MCHC 32.3 32.0 - 36.0 g/dL [facility] RDW 13.1 11.5 - 14.5 % [facility] MPV 9.3 8.4 - 12.0 fL [facility] NRBC 0.00 0.00 /100 WBCs [facility] ABSOLUTE NRBC 0.00 0.00 K/uL [facility] DIFF METHOD Auto [facility] NEUTS 63.0 48.0 - 76.0 % [facility] LYMPHS 24.2 18.0 - 41.0 % [facility] MONOS 7.7 4.0 - 11.0 % [facility] EOS 3.9 0.0 - 5.0 % [facility] BASOS 0.8 0.0 - 1.5 % [facility] Granulocytes, immature (%) 0.4 0.0 - 0.9 % [facility] ABSOLUTE NEUTS 4.49 1.92 - 7.60 K/uL [facility] ABSOLUTE LYMPHS 1.73 0.72 - 4.10 K/uL [facility] ABSOLUTE MONOS 0.55 0.16 - 1.10 K/uL [facility] ABSOLUTE EOS 0.28 0.00 - 0.50 K/uL [facility] ABSOLUTE BASOS 0.06 0.00 - 0.15 K/uL [facility] Granulocytes, immature 0.03 0.00 - 0.09 K/uL [facility] Blood 04/15/2025 2:14 PM EDT 04/15/2025 2:28 PM EDT us Gladys Berman PA-C LAB BLOOD ORDERABLES Final Result [address] [address] * Lipase (04/15/2025 2:14 PM EDT) LIPASE 21 16 - 63 U/L [facility] Blood 04/15/2025 2:14 PM EDT 04/15/2025 2:28 PM EDT us Gladys Berman PA-C LAB BLOOD ORDERABLES Final Result Performing Organization Address [facility] Co de Phone Number [address] [address] * (ABNORMAL) Basic metabolic panel (04/15/2025 2:14 PM EDT) SODIUM 136 133 - 146 mmol/L [facility] CHLORIDE 100 96 - 108 mmol/L [facility] POTASSIUM 4.6 3.3 - 5.1 mmol/L [facility] Comment:Specimen slightly he molyzed, result may be falsely elevated. CO2 25 21 - 35 mmol/L [facility] BUN 15 6 - 19 mg/dL [facility] CREATININE 0.60 0.5 - 1.5 mg/dL [facility] GLUCOSE 103(H) 70 - 99 mg/dL [facility] CALCIUM 9.3 8.4 - 10.3 mg/dL [facility] EGFR 101 >59 mL/min/1.7 3m2 [facility] Comment:Estimated glomerular filtration rate calculated using the CKD-EPI refit equation. ANION GAP 16 10 - 20 mmol/L [facility] Blood 04/15/2025 2:14 PM EDT 04/15/2025 2:28 PM EDT us Gladys Berman PA-C LAB BLOOD ORDERABLES Final Result Performing Organization Address [facility] Co de Phone Number [address] [address] * XR CHEST PA AND LATERAL 2 VIEWS (04/15/2025 2:08 PM EDT) Anatomical Region Laterality Modality Chest Computed Radiogr aphy 04/15/2025 2:41 PM EDT Impressions 04/15/2025 2:53 PM EDT No acute abnormality. ATTESTATION: Anjum Jackson as teaching physician, have reviewed the images for this case and if necessary edited the report originally created by Gladys Menjivar. Narrative 04/15/2025 2:53 PM EDT XR CHEST PA AND LATERAL 2 VIEWS Referring clinician's provided indication for this examination in [facility]: Pain COMPARISON: [facility] CHEST SINGLE VIEW E088 FINDINGS: Devices/Tubes/Lines: None. Lungs: No focal consolidation or pulmonary edema. Pleura: No pleural effusion or pneumothorax. Heart/Mediastinum: Normal heart size. Bones/Soft Tissues: No acute abnormality. Mild degenerative changes of the spine. Left shoulder arthroplasty. Procedure Note Anjum Miller MD - 04/15/2025 XR CHEST PA AND LATERAL 2 VIEWS Referring clinician's provided indication for this examination in [facility]:Pain COMPARISON: [facility] CHEST SINGLE VIEW E088 FINDINGS: Devices/Tubes/Lines: None. Lungs: No focal consolidation or pulmonary edema. Pleura: No pleural effusion or pneumothorax. Heart/Mediastinum: Normal heart size. Bones/Soft Tissues: No acute abnormality. Mild degenerative changes of thespine. Left shoulder arthroplasty. IMPRESSION: No acute abnormality. ATTESTATION: Anjum Jackson as teaching physician, have reviewed theimages for this case and if necessary edited the report originally createdby Gladys Menjivar. us Gladys Berman PA-C IMG XR CHEST Final Result * Urinalysis w/reflex Urine Culture (04/15/2025 2:03 PM EDT) COLOR Yellow Yellow [facility] CLARITY Clear [facility] GLUCOSE Negative Negative [facility] BILI Negative Negative [facility] KETONES Negative Negative [facility] SPECIFIC GRAVITY 1.010 1.005 - 1.030 [facility] BLOOD Negative Negative [facility] PH 6.0 5.0 - 8.0 [facility] Protein-UA Negative Negative [facility] NITRITE Negative Negative [facility] Leukocyte esterase, ur Negative Negative [facility] Urine (Urine) 04/15/2025 2:0 3 PM EDT 04/15/2025 3:01 PM EDT us Gladys Berman PA-C URINE ORDERABLES Lennie brownlee Result [facility] [address] [place] [address] * ENDOSCOPY, COLON (09/17/2018 1:17 PM EST) Narrative Transcriptions Chuck Sprague MD - 09/17/2018 1:17 PM EST Patient Name: Lilli Gambino Attending MD:: CHUCK SPRAGUE MD Procedure Date: 09/17/2018 1:17 PM Date of : 1960 Age: 58 Admit Type: Outpatient Gender: Female Room: [facility] 05 Referring MD: PATRICK MATHUR MD Exam Type: Colonoscopy Indications: Last colonoscopy: September 2012, Follow-up for history of adenomatous polyps in the colon, Change in bowelhabits Medications: Monitored Anesthesia Care Procedure: Informed consent was obtained from the patient after discussion of the indications, limitations,alternatives, benefits, and risks of the procedure. Risksspecifically discussed include but are not limited to medication reactions, missed lesions, bleeding, perforation, orthe need for emergent surgery. Throughout the procedure, the patient's blood pressure, pulse, end-tidal CO2, and oxygen saturations were monitored continuously. The Olympus adult variable colonoscope [id number] #6 was introduced through the anus and advanced to theterminal ileum, with identification of the appendiceal orificeand IC valve. The colonoscopy was performed without difficulty. The patient tolerated the procedure fairly well. The quality of the bowel preparation was good. Complications: No immediate complications. Estimated blood loss:None. Findings: Normal mucosa was found in the entire colon. The terminal ileum appeared normal. The exam was otherwise without abnormality on directand retroflexion views. Impression: - Normal mucosa in the entire examined colon. - The examined portion of the ileum was normal. - The examination was otherwise normal on direct and retroflexion views. - No specimens collected. Recommendation: - Repeat colonoscopy in 5 years for surveillance. - Use fiber, for example Citrucel, Fibercon, Konsyl or Metamucil. - Reassurance CHUCK SPRAGUE MD 09/17/2018 2:03:18 PM This report has been signed electronically. Number of Addenda: 0 Note Initiated On: 09/17/2018 1:17 PM Procedure Code(s): --- Professional --- 87922, Colonoscopy, flexible; diagnostic, including collection of specimen(s) by brushing or washing, when performed (separateprocedure) --- Technical --- 74260, Colonoscopy, flexible; diagnostic, including collection of specimen(s) by brushing or washing, when performed (separateprocedure) Diagnosis Code(s): --- Professional --- Z86.010, Personal history of colonic polyps R19.4, Change in bowel habit --- Technical --- Z86.010, Personal history of colonic polyps R19.4, Change in bowel habit CPT copyright 2016 [employer]. All rights reserved. The codes documented in this report are preliminary and upon teacher preschool reviewmay be revised to meet current compliance requirements. [address] [place] [address] us Patrick Mathur MD GI PROCEDURE ORDERABLES Lennie l Result * (ABNORMAL) TSH (08/20/2018 2:30 PM EST) TSH 29.06(H) 0.27 - 4.20 uIU/mL [facility] Blood 08/20/2018 2:30 PM EST 08/20/2018 2:38 PM EST us Cece Sheth PA-C LAB BLOOD ORDERABLES Final Resu lt [facility] [address] [place] [address] from Last 3 Months or Most Recently Relevant to Health Maintenance Insurance MEDICARE PART A & B Member Subscriber Plan / Payer (Ef fective 2015-Present) Name:Lilli Gambino Member ID:[id number] Relation to Subscriber:Self Name:Lilli Gambino Subscriber ID:[id number] Payer ID:[id number] Group ID:Not on file Type:Medicare Address: [facility] [employer] [facility]. [address] [facility] [place] [address] [facility] MEDICARE PART A & B HEALTH MEDICARE PART A & B [place] MEDICARE PART A & B MEDICARE PART A & B MEDICARE PART A & B [facility] A & B [facility] Advance Directives For more information, please contact: [phone] (9AM - 5PM Bettye/[facility], Sunday-Sunday) * Full Code (Latest Code Status on File) Date Activated Date Inactivated Comments 07/01/2022 5:17 AM Question Answer Comments Code Status Confirmed With: PatientFamily Care Teams Entrepreneur Relationship Specialty Start Date End Date Celestina Trinidad MD [address] [address] PCP - General Internal Medicine 12/03/23 Additional Source Comments The information contained in this document represents components of the legal health record. It is not the complete legal health record.[facility]
--- OUTSIDE RECORDS SUMMARY | 2025-05-05 06:26 | XMS_ITS | Encounter Summary ---
Author Organization [facility] Address [address] [place] [address] Phone Care Team Providers Care Cotton Machine Operator Name Role Phone Patrick Mathur MD Primary Care Provider [phone] Celestina Trinidad MD Primary Care Provid er Reason for Referral * MRI/CAT Scan - Closed Specialty Diagnoses / Procedures Referred By Yvonne t Referred To Contact Radiology Diagnoses Lumbar radiculopathy Procedures MRI Lumbar Spine Elder Good NP Phone: tel: fax: Referral ID Status Reason Start Date Expiration Date Visits Re quested Visits Authorized [id number] Closed 09/01/2020 09/01/2021 1 1 Encounter Details Date Type Department Care Team (Latest Contact Info) Description 09/01/2020 Transcribe Orders Virtual Department [address] [place] [address] Elder Good NP [address] [place] [address] Lumbar radiculopathy (Primary Dx) Social History Tobacco Use Types [...] documented as of this encounter Results * MRI LUMBAR SPINE (NEURO) WITH AND WITHOUT CONTRAST (09/15/2020 3:20 PM EST) Anatomical Region Laterality Modality L-spine Magnetic Resonan ce 09/15/2020 2:13 PM EST Impressions 09/15/2020 2:37 PM EST 1. Severe central canal stenosis at L4-L5 due to multiple factors but largely due to a 1 cm mass in the posterior aspect of the spinal canal abutting the ligamentum flavum. This is suspected to be a degenerative cyst, potentially synovial cyst. 2. Moderate to severe bilateral facet arthropathy at L4-L5 which likely accounts for the grade 1 spondylolisthesis of L4 and L5. 3. Moderate to severe narrowing of the left neuroforamen at L4-L5. Moderate narrowing of the left neuroforamen at L3-L4, right neuroforamen at L4-L5, left neuroforamen at L5-S1. 4. Mild edema within the pedicles of L5 extending to the facet pillars. Cannot exclude healing pars fractures which can be correlated clinically. 5. Multilevel degenerative disc changes. Narrative 09/15/2020 2:37 PM EST HISTORY: Chronic lower back pain radiating down both legs into both inguinal regions. COMPARISON: None. TECHNIQUE: Exam performed on a 1.5 Laura high-field MRI scanner. Sagittal T1, T2 and STIR, axial T1 and T2 sequences were obtained along with an axial T1 post gadolinium-enhanced sequence. FINDINGS: Conus medullaris: Normal L1-L2: No significant abnormalities. L2-L3: Loss of T2 signal within the disc. Moderate disc space narrowing with mild degenerative endplate changes. Small broad-based disc-osteophyte complex. Minimal facet arthropathy. No central canal stenosis. Minimal neuroforaminal narrowing. L3-L4: Loss of T2 signal within the disc. Mild disc space narrowing. Mild degenerative endplate changes. Small broad-based disc-osteophyte complex. Minimal facet arthropathy. No central canal stenosis. Moderate bilateral neuroforaminal narrowing, slightly more on left than right, by disc-osteophyte complexes. L4-L5: Loss of T2 signal within the disc. Mild-moderate disc space narrowing. Proximally 3 mm of spondylolisthesis of L4 and L5. Small broad-based disc protrusion. Moderate-severe bilateral facet arthropathy with thickening of the ligamentum flavum. Questionable laminectomy defect on the right. 10 mm x 9 mm x 7 mm round mass in the posterior aspect of the spinal canal centrally-right paracentrally. This abuts the ligamentum flavum bilaterally and is adjacent to the facet joints. No evidence of central enhancement within the mass. Severe central canal stenosis at this level. Moderate to severe neuroforaminal narrowing on the left and moderate narrowing of the right neuroforamen. L5-S1: Mild-moderate disc space narrowing and degenerative endplate changes. Small broad-based disc-osteophyte complex. Mild-moderate bilateral facet arthropathy. No central canal stenosis. Moderate narrowing of the proximal aspect of the left neuroforamen. Mild narrowing of the right neuroforamen. Soft tissues: No evidence of other paravertebral masses. Vertebral bodies: No evidence of compression fractures. Mild edema within the pedicles of L5 extending to the facet pillars. Procedure Note Franki Anaya MD - 09/15/2020 HISTORY: Chronic lower back pain radiating down both legs into bothinguinal regions. COMPARISON: None. TECHNIQUE: Exam performed on a 1.5 Laura high-field MRI scanner. SagittalT1, T2 and STIR, axial T1 and T2 sequences were obtained along with anaxial T1 post gadolinium-enhanced sequence. FINDINGS: Conus medullaris: Normal L1-L2: No significant abnormalities. L2-L3: Loss of T2 signal within the disc. Moderate disc space narrowingwith mild degenerative endplate changes. Small broad-based disc-osteophytecomplex. Minimal facet arthropathy. No central canal stenosis. Minimalneuroforaminal narrowing. L3-L4: Loss of T2 signal within the disc. Mild disc space narrowing. Milddegenerative endplate changes. Small broad-based disc-osteophyte complex.Minimal facet arthropathy. No central canal stenosis. Moderate bilateralneuroforaminal narrowing, slightly more on left than right, bydisc-osteophyte complexes. L4-L5: Loss of T2 signal within the disc. Mild-moderate disc spacenarrowing. Proximally 3 mm of spondylolisthesis of L4 and L5. Smallbroad-based disc protrusion. Moderate-severe bilateral facet arthropathywith thickening of the ligamentum flavum. Questionable laminectomy defecton the right. 10 mm x 9 mm x 7 mm round mass in the posterior aspect ofthe spinal canal centrally-right paracentrally. This abuts the ligamentumflavum bilaterally and is adjacent to the facet joints. No evidence ofcentral enhancement within the mass. Severe central canal stenosis at thislevel. Moderate to severe neuroforaminal narrowing on the left andmoderate narrowing of the right neuroforamen. L5-S1: Mild-moderate disc space narrowing and degenerative endplatechanges. Small broad-based disc-osteophyte complex. Mild-moderatebilateral facet arthropathy. No central canal stenosis. Moderate narrowingof the proximal aspect of the left neuroforamen. Mild narrowing of theright neuroforamen. Soft tissues: No evidence of other paravertebral masses. Vertebral bodies: No evidence of compression fractures. Mild edema withinthe pedicles of L5 extending to the facet pillars. IMPRESSION: 1. Severe central canal stenosis at L4-L5 due to multiple factors butlargely due to a 1 cm mass in the posterior aspect of the spinal canalabutting the ligamentum flavum. This is suspected to be a degenerativecyst, potentially synovial cyst. 2. Moderate to severe bilateral facet arthropathy at L4-L5 which likelyaccounts for the grade 1 spondylolisthesis of L4 and L5. 3. Moderate to severe narrowing of the left neuroforamen at L4-L5.Moderate narrowing of the left neuroforamen at L3-L4, right neuroforamenat L4-L5, left neuroforamen at L5-S1. 4. Mild edema within the pedicles of L5 extending to the facet pillars.Cannot exclude healing pars fractures which can be correlatedclinically. 5. Multilevel degenerative disc changes. us Elder Brielle Onofrey UPPER SHAPER IMG MR XSPECIALTY Final Re sult documented in this encounter Visit Diagnoses Diagnosis Lumbar radiculopathy- Primary Thoracic or lumbosacral neuritis or radiculitis, unspecified Lumbar radiculopathy Thoracic or lumbosacral neuritis or radiculitis, unspecified documented in this encounter Care Teams Cotton Machine Operator Relationship Specialty Start Date End Date Patrick Mathur MD [address] [place] [address] [email or web address] PCP - General 11/09/15 12/02/23 Celestina Trinidad MD [address] [address] PCP - General Internal Medicine 12/03/23 documented as of this encounter Additional Source Comments The information contained in this document represents components of the legal health record. It is not the complete legal health record.[facility]
--- OUTSIDE RECORDS SUMMARY | 2025-05-05 06:26 | XMS_ITS | Encounter Summary ---
Author Organization [facility] Address [address] [place] [address] Phone Care Team Providers Care Crew Person Name Role Phone Patrick Mathur MD Primary Care Provider [phone] Celestina Trinidad MD Primary Care Provid er Encounter Details Date Type Department Care Team (Late st Contact Info) Description 04/24/2022 Procedure Pass [address] [place] [address] Social History Tobacco Use Types Packs/Day Years [...] PM EDT documented as of this encounter Last Filed Vital Signs Vital Sign Reading Time Taken Comments Blood Pressure - - Pulse - - Temperature - - Respiratory Rate - - Oxygen Saturation - - Inhaled Oxygen Concentration - - Weight 161 kg (355 lb) 04/27/2022 5:52 PM EDT Height 157.5 cm (5' 2 ) 04/27/2022 5:52 PM EDT Body Mass Index 64.93 04/27/2022 5:52 PM EDT documented in this encounter Plan of Treatment Not on file documented as of this encounter Visit Diagnoses Not on filedocumented in this encounter Care Teams Crew Person Relationship Specialty Start Date End Date Patrick Mathur MD [address] [place] [address] [email or web address] PCP - General 11/09/15 12/02/23 Celestina Trinidad MD [address] [address] PCP - General Internal Medicine 12/03/23 documented as of this encounter Additional Source Comments The information contained in this document represents components of the legal health record. It is not the complete legal health record.[facility]
--- OUTSIDE RECORDS SUMMARY | 2025-05-05 06:26 | XMS_ITS | Encounter Summary ---
Author Organization [facility] Address [address] [place] [address] Phone Care Team Providers Care Environmental Studies Program Director Name Role Phone Patrick Mathur MD Primary Care Provider Celestina Trinidad MD Primary Care Provid er Encounter Details Date Type Department Care Team (Late st Contact Info) Description 09/01/2020 Procedure Pass [address] [place] [address] Social History Tobacco Use Types Packs/Day Years [...] on filedocumented in this encounter Care Teams Environmental Studies Program Director Relationship Specialty Start Date End Date Patrick Mathur MD [address] [place] [address] PCP - General 11/09/15 12/02/23 Celest[facility] [place] [address] PCP - General Internal Medicine 12/03/23 documented as of this encounter Additional Source Comments The information contained in this document represents components of the legal health record. It is not the complete legal health record.[facility]
== END 2025-05-05 06:24 | disposition home or self-care (01) ==
LOC: CF 06:23
PROVIDERS: Visit Provider Anesthesiology
DX: M16.11 Unilateral primary osteoarthritis, right hip (principal)
CPT/HCPCS: 20610; J2003; J2795; J3301; Q9967

== ENCOUNTER 2025-05-05 13:46 | Outpatient (AMB) | payer MEDICARE, MEDICAID, SELFPAY ==
--- OUTSIDE RECORDS SUMMARY | 2015-11-12 | XMS_ITS | Encounter Summary ---
Author Organization [facility] Address [address] [place] [address] Phone Care Team Providers Care Electronics Instructor Name Role Phone Patrick Mathur MD Primary Care Provider [phone] Encounter Details Date Type Department Care Team (Late st Contact Info) Description 11/12/2015 Hospital Encounter [facility] [address] [place] [address] Jeferson Rondon Jp, MD [address] [facility] [address] [place] [address] [email or web address] Social History Tobacco Use Types Packs/Day Years [...] as food, clothing, or medical care? No 04/15/2025 In the past 12 months have y ou been in a relationship with a person who hurts, threatens, or tries to control you? No 04/15/2025 Are you denied basic needs s uch as food, clothing, or medical care? No 04/15/2025 In the past 12 months have y ou been in a relationship with a person who hurts, threatens, or tries to control you? No 04/15/2025 Comments Unknown Sex and Gender Information Value [...] 12:06 PM EDT Vandana Barrios RN * [place] Suicide Severity Rating Scale (Screener/Recent Self-Report) Question [...] Care Team (Late st Contact Info) Description 05/25/2025 2:30 PM EDT Office Visit [facility] Department of Orthopaedics [address] [place] [address] Rodrigo John MD [address] [place] [address] Department [place] [address] [email or web address] documented as of this encounter Procedures Procedure Name Priority Date/Time Associated Diagnosis Comments MRI UPPER EXTREMITY OUTSIDE (NO INTERPRETATION) Routine 11/12/2015 12:00 AM EDT documented in this encounter Results * MRI Outside Upper Extremity (No Interpretation) (11/12/2015 12:00 AM EDT) Narrative [facility] [place]G INTERFACES - 12/24/2015 10:46 AM EDT This study is for PACS storage only and not for interpretation. Procedure Note SYSTEMGENERATED, DOCUMENTATION - 12/24/2015 This study is for PACS storage only and not for interpretation. us Jeferson Rondon MD IMG OUTSIDE IMAGING W/OUT INTER PRETATION Final Result [facility]ACES documented in this encounter Visit Diagnoses Not on filedocumented in this encounter Care Teams Electronics Instructor Relationship Specialty Start Date End Date Patrick Mathur MD [address] [place] [address] [email or web address] PCP - General 11/09/15 12/02/23 documented as of this encounter Additional Source Comments The information contained in this document represents components of the legal health record. It is not the complete legal health record.[facility]
[2025-05-05 13:53] VITALS: BP 199/89; PULSE 73; RESP 16; O2SAT 98; BMI 53.8
--- NOTE | 2025-05-05 13:53 | A.OFFVIS_ITS ---
Vital Signs 05/05/25 13:53 05/05/25 14:21 Height 5 ft 2 in Weight 294 lb BMI 53.8 BP 199/89 H 205/91 H Blood Pressure Location Lt radial Rt radial Position Sitting Sitting Respiration 16 16 Pulse 73 75 Pulse Source Pulse Oximeter Pulse Oximeter Pulse Oximetry (%) 98 97 Oxygen Delivery Method Room Air Room Air Intake Visit Reasons: RIGHT INTRA-ARTICULAR HIP INJECTION Allergies No Known Allergies Allergy (Verified 11/19/24 13:03) Physical Exam Vital Signs: Last Vital Signs Pulse 75 05/05/25 14:21 Resp 16 05/05/25 14:21 BP 205/91 H 05/05/25 14:21 Pulse Ox 97 05/05/25 14:21 Oxygen Delivery Method Room Air 05/05/25 14:21 BMI result Body Mass Index 53.8 Assessment & Plan Assessment & Plan (1) Hip arthritis: Code(s): M16.10 - Unilateral primary osteoarthritis, unspecified hip Category: Medical (2) Right hip pain: Code(s): M25.551 - Pain in right hip Category: Medical (3) Osteoarthritis of right hip: Code(s): M16.11 - Unilateral primary osteoarthritis, right hip Category: Medical Plan intra-articular right hip steroid injection. Informed consent was explained to the patient. All questions were explained and? answered. The discussion about possible obscure and indolent infection in the right hip was held before the procedure.? The patient was taken inside the operating room where she was positioned left lateral decubitus on the operating table.? Time-out was performed delineating correct site, side, the nature of the procedure, patient's allergy, preoperative antibiotic if needed.? All operating room staff was participating in OR time-out procedure.? The patient stated his name. Non dependent right hip was prepped with ChloraPrep and draped with sterile towels.? The C-arm was brought over the operating field and the picture of bilateral hip joints were obtained on the screen.? The right hip joint was chosen as the target for the injection.? The trochanter position was noted on the screen.? The projection of the trochanter to the skin was noted, the direction of the femoral neck was noted.? The skin was anesthetized using 2% lidocaine at the trochanter area.? 18 gauge 6 inch needle was inserted through t he skin and advanced to the hip joint silhouette on under intermittent lateral and anterior posterior views.? When needle entered the Silhouette of the joint aspiration was attempted using 3 cc syringe. Unfortunately no synovial fluid was obtained from the joint. After that the injection of the contrast was performed demonstrating intra-articular spread of the contrast.? After that 6 cc of ropivacaine 0.5% mixed with Kenalog 40 mg was injected into the joint.? The needle was removed sterile dressing was applied. The patient tolerated procedure well. Orders: Orders FL guidance in treatment room Today M16.11 - Unilateral primary osteoarthritis, right hip Coding Level of Care Code Procedure Only Diagnoses Hip arthritis M16.10 Right hip pain M25.551 Osteoarthritis of right hip M16.11
[2025-05-05 14:21] VITALS: BP 205/91; PULSE 75; RESP 16; O2SAT 97
--- OUTSIDE RECORDS SUMMARY | 2025-05-05 16:57 | XMS_ITS | Encounter Summary ---
Author Organization [facility] Address [address] [place] [address] Phone Care Team Providers Care Dispatcher Radio Name Role Phone Patrick Mathur MD Primary Care Provider Celestina Trinidad MD Primary Care Provid er Encounter Details Date Type Department Care Team (Late st Contact Info) Description 09/17/2018 Procedure Pass [facility] Endoscopy Admitting Dept Virtual Department [address] [place] [id number] Social History Tobacco Use Types Packs/Day Years [...] Description 05/25/2025 2:30 PM EDT Office Visit [facility] Department of Orthopaedics [address] [place] [address] Rodrigo John MD [address] [place] [address] Department [place] [address] [email or web address] documented as of this encounter Visit Diagnoses Not on filedocumented in this encounter Care Teams Dispatcher Radio Relationship Specialty Start Date End Date Patrick Mathur MD [address] [place] [address] [email or web address] PCP - General 11/09/15 12/02/23 Celestina Trinidad MD [address] [address] PCP - General Internal Medicine 12/03/23 documented as of this encounter Additional Source Comments The information contained in this document represents components of the legal health record. It is not the complete legal health record.[facility]
--- OUTSIDE RECORDS SUMMARY | 2025-05-05 16:57 | XMS_ITS | Encounter Summary ---
Author Organization [facility] Address [address] [place] [address] Phone Care Team Providers Care Bid Writer Name Role Phone Patrick Mathur MD Primary Care Provider [phone] Celestina Trinidad MD Primary Care Provid er Encounter Details Date Type Department Care Team (Late st Contact Info) Description 04/24/2022 Procedure Pass [address] [place] [address] Social History Tobacco Use Types Packs/Day Years [...] documented in this encounter Plan of Treatment Upcoming Encounters Date Type Department Care Team (Late st Contact Info) Description 05/25/2025 2:30 PM EDT Office Visit [facility] Department of Orthopaedics [address] [place] [address] Rodrigo John MD [address] [place] [address] Department [place] [address] [email or web address] documented as of this encounter Visit Diagnoses Not on filedocumented in this encounter Care Teams Bid Writer Relationship Specialty Start Date End Date Patrick Mathur MD [address] [place] [address] PCP - General 11/09/15 12/02/23 Celestina Trinidad MD [address] [address] PCP - General Internal Medicine 12/03/23 documented as of this encounter Additional Source Comments The information contained in this document represents components of the legal health record. It is not the complete legal health record.[facility]
--- OUTSIDE RECORDS SUMMARY | 2025-05-05 16:57 | XMS_ITS | Encounter Summary ---
Author Organization [facility] Address [address] [place] [address] Phone Care Team Providers Care First Assistant Manager Name Role Phone Patrick Mathur MD Primary Care Provider Celestina Trinidad MD Primary Care Provid er Encounter Details Date Type Department Care Team (Late st Contact Info) Description 09/01/2020 Procedure Pass [facility], [address] [place] [address] Social History Tobacco Use Types Packs/Day Years [...] Description 05/25/2025 2:30 PM EDT Office Visit [facility] Department of Orthopaedics [address] [place] [address] Rodrigo John MD [address] [place] [address] Department [place] [address] [email or web address] documented as of this encounter Visit Diagnoses Not on filedocumented in this encounter Care Teams First Assistant Manager Relationship Specialty Start Date End Date Patrick Mathur MD [address] [place] [address] [email or web address] PCP - General 11/09/15 12/02/23 Celestina Trinidad MD [address] [address] PCP - General Internal Medicine 12/03/23 documented as of this encounter Additional Source Comments The information contained in this document represents components of the legal health record. It is not the complete legal health record.[facility]
--- OUTSIDE RECORDS SUMMARY | 2025-05-05 16:57 | XMS_ITS | Clinical Summary ---
Author Organization [facility] Address [address] [place] [address] Phone Care Team Providers Care Genetics Physician Name Role Phone Celestina Trinidad MD [...] 6:02 PM EDT Emergency [facility] Emergency [address] [place] [address] Discharge Disposition: Home or Self Care from [...] 11/26/2024 1:35 PM EDT Plan of Treatment Upcoming Encounters Date Type Department Care Team (Late st Contact Info) Description 05/25/2025 2:30 PM EDT Office Visit [facility] [address] [place] [address] Rodrigo John MD [address] [place] [address] Department [place] [address] [email or web address] Health Maintenance Due Date Last Done Comments [...] 07/13/2023, 06/08/2022, Additional history exists COVID-19 VACCINE (2024- season) 2025 05/02/2024, 12/04/2023, 05/15/2023, Additional history [...] ALKALINE PHOSPHATASE 123(H) 39 - 117 U/L [facility] TOTAL BILIRUBIN 0.4 0.0 - 1.2 mg/dL [facility] DIRECT BILIRUBIN <0.1 0.0 - 0.2 mg/dL [facility] Bilirubin (Indirect) NOT CALCULATED 0 - 1.5 mg/dL [facility] AST 21 0 - 37 U/L [facility] ALT 13 0 - 40 U/L [facility] TOTAL PROTEIN 8.0 6.5 - 8.0 g/dL [facility] ALBUMIN 4.4 3.9 - 4.8 g/dL [facility] GLOBULIN 3.6 1 - 4.8 g/dL [facility] A/G Ratio 1.22 1.00 - 4.80 RATIO [facility] Blood 04/15/2025 2:14 PM EDT 04/15/2025 2:28 PM EDT us Gladys Berman PA-C LAB BLOOD ORDERABLES Final Result [facility] [address] [place] [address] * CBC and differential (04/15/2025 2:14 PM EDT) WBC 7.14 4.00 - 11.00 K/uL [facility] RBC 4.20 4.00 - 5.20 M/uL [facility] HGB 13.0 12.0 - 16.0 g/dL [facility] HCT 40.3 36.0 - 46.0 % [facility] PLT 343 150 - 450 K/uL [facility] MCV 96.0 80.0 - 100.0 fL [facility] MCH 31.0 27.0 - 31.0 pg [facility] MCHC 32.3 32.0 - 36.0 g/dL [facility] RDW 13.1 11.5 - 14.5 % [facility] MPV 9.3 8.4 - 12.0 fL [facility] NRBC 0.00 0.00 /100 WBCs [facility] ABSOLUTE NRBC 0.00 0.00 K/uL [facility] DIFF METHOD Auto [facility] NEUTS 63.0 48.0 - 76.0 % [facility] LYMPHS 24.2 18.0 - 41.0 % [facility] MONOS 7.7 4.0 - 11.0 % [facility] EOS 3.9 0.0 - 5.0 % [facility] BASOS 0.8 0.0 - 1.5 % [facility] Granulocytes, immature (%) 0.4 0.0 - 0.9 % [facility] ABSOLUTE NEUTS 4.49 1.92 - 7.60 K/uL [facility] ABSOLUTE LYMPHS 1.73 0.72 - 4.10 K/uL [facility] ABSOLUTE MONOS 0.55 0.16 - 1.10 K/uL [facility] ABSOLUTE EOS 0.28 0.00 - 0.50 K/uL [facility] ABSOLUTE BASOS 0.06 0.00 - 0.15 K/uL [facility] Granulocytes, immature 0.03 0.00 - 0.09 K/uL [facility] Blood 04/15/2025 2:14 PM EDT 04/15/2025 2:28 PM EDT Gladys Berman PA-C LAB BLOOD ORDERABLES Final Result [address] [address] * Lipase (04/15/2025 2:14 PM EDT) LIPASE 21 16 - 63 U/L [facility] Blood 04/15/2025 2:14 PM EDT 04/15/2025 2:28 PM EDT Gladys Berman PA-C LAB BLOOD ORDERABLES Final Result [address] [address] * (ABNORMAL) Basic metabolic panel (04/15/2025 2:14 PM EDT) SODIUM 136 133 - 146 mmol/L [facility] CHLORIDE 100 96 - 108 mmol/L [facility] POTASSIUM 4.6 3.3 - 5.1 mmol/L [facility] Comment:Specimen slightly he molyzed, result may be falsely elevated. CO2 25 21 - 35 mmol/L [facility] BUN 15 6 - 19 mg/dL [facility] CREATININE 0.60 0.5 - 1.5 mg/dL [facility] GLUCOSE 103(H) 70 - 99 mg/dL [facility] CALCIUM 9.3 8.4 - 10.3 mg/dL [facility] EGFR 101 >59 mL/min/1.7 3m2 [facility] Comment:Estimated glomerular filtration rate calculated using the CKD-EPI refit equation. ANION GAP 16 10 - 20 mmol/L [facility] Blood 04/15/2025 2:14 PM EDT 04/15/2025 2:28 PM EDT us Gladys Berman PA-C LAB BLOOD ORDERABLES Final Result [address] [address] * XR CHEST PA AND LATERAL 2 [...] clinician's provided indication for this examination in [facility]: Pain COMPARISON: [facility] CHEST SINGLE VIEW E088 FINDINGS: Devices/Tubes/Lines: None. Lungs: No focal consolidation or pulmonary edema. Pleura: No pleural effusion or pneumothorax. Heart/Mediastinum: Normal heart size. Bones/Soft Tissues: No acute abnormality. Mild degenerative changes of the spine. Left shoulder arthroplasty. Procedure Note Anjum Miller MD - 04/15/2025 XR CHEST PA AND LATERAL 2 VIEWS Referring clinician's provided indication for this examination in [facility]:Pain COMPARISON: [facility] CHEST SINGLE VIEW E088 FINDINGS: Devices/Tubes/Lines: [...] (04/15/2025 2:03 PM EDT) COLOR Yellow Yellow [facility] CLARITY Clear [facility] GLUCOSE Negative Negative [facility] BILI Negative Negative [facility] KETONES Negative Negative [facility] SPECIFIC GRAVITY 1.010 1.005 - 1.030 [facility] BLOOD Negative Negative [facility] PH 6.0 5.0 - 8.0 [facility] Protein-UA Negative Negative [facility] NITRITE Negative Negative [facility] Leukocyte esterase, ur Negative Negative [facility] Urine (Urine) 04/15/2025 2:0 3 PM EDT 04/15/2025 3:01 PM EDT us Gladys Berman PA-C URINE ORDERABLES Lennie l Result [address] [address] * ENDOSCOPY, COLON (09/17/2018 1:17 PM EST) Narrative Transcriptions Chuck Sprague MD - 09/17/2018 1:17 PM EST Patient Name: Lilli Edward MD:: CHUCK SPRAGUE MD Procedure Date: 09/17/2018 1:17 PM Date of : 1960 Age: 58 Admit Type: Outpatient Gender: Female Room: Endo 05 Referring MD: PATRICK MATHUR MD Exam [...] monitored continuously. The Olympus adult variable colonoscope [id number] #6 was introduced through the anus and [...] 1:17 PM Procedure Code(s): --- Professional --- 62604, Colonoscopy, flexible; diagnostic, including collection of specimen(s) by brushing or washing, when performed (separateprocedure) --- Technical --- 05022, Colonoscopy, flexible; diagnostic, including collection of specimen(s) by brushing or washing, when performed (separateprocedure) Diagnosis Code(s): --- Professional --- Z86.010, Personal history of colonic polyps R19.4, Change in bowel habit --- Technical --- Z86.010, Personal history of colonic polyps R19.4, Change in bowel habit CPT copyright 2016 [employer]. All rights reserved. The codes documented in this report are preliminary and upon accountant clerk reviewmay be revised to meet current compliance requirements. [address] [place], [place] [id number] us Patrick Mathur MD GI PROCEDURE ORDERABLES Lennie l Result * (ABNORMAL) TSH (08/20/2018 2:30 PM EST) TSH 29.06(H) 0.27 - 4.20 uIU/mL [facility] Blood 08/20/2018 2:30 PM EST 08/20/2018 2:38 PM EST us Cece Sheth PA-C LAB BLOOD ORDERABLES Final Resu lt [facility] [address], [place] [id number] from Last 3 Months or Most Recently Relevant to Health Maintenance Insurance MEDICARE PART A & [place] [id number] [facility] MEDICARE PART A & B [facility] MEDICARE PART A & B [facility] MEDICARE PART A & B [facility] MEDICARE PART A & B [facility] MEDICARE PART A & B [facility] MEDICARE PART A & B MEDICARE PART A & B MEDICARE PART A & B [facility] Advance Directives For more information, please contact: [phone] (9AM - 5PM [facility], Sunday-Sunday) * Full Code (Latest Code Status on File) Date Activated Date Inactivated Comments 07/01/2022 5:17 AM Question Answer Comments Code Status Confirmed With: PatientFamily Care Teams Genetics Physician Relationship Specialty Start Date End Date Celestina Trinidad MD [address] [address] PCP - General Internal Medicine 12/03/23 Additional Source Comments The information contained in this document represents components of the legal health record. It is not the complete legal health record.[facility]
--- OUTSIDE RECORDS SUMMARY | 2025-05-05 16:57 | XMS_ITS | Encounter Summary ---
Author Organization [facility] Address [address] [place] [address] Phone Care Team Providers Care Web Applications Programmer Name Role Phone Patrick Mathur MD Primary Care Provider Celestina Trinidad MD Primary Care Provid er Encounter Details Date Type Department Care Team (Latest Contact Info) Description 08/20/2018 Transcribe Orders [facility] Laboratory [address]nd [place] [address] Cece Sheth PA-C [address] [place] [address] Change in bowel habits (Primary Dx) Social [...] [facility] of [facility] [address] [place] [address] Rodrigo John MD [address] [place] [address] Department [place] [address] [email or web address] documented as of this encounter Results * Tissue transglutaminase IgA (08/20/2018 2:31 PM EST) TTG IGA ANTIBODY <1.2 <4.0 (Negative) U/mL [facility] DPT OF LAB MED AND PAT+ Blood 08/20/2018 2:31 PM EST 08/20/2018 2:38 PM EST us Cece Sheth PA-C LAB BLOOD ORDERABLES Final Resu lt Performing Organization Address City/[facility]/ZIP Co de Phone Number [facility] DPT OF LAB MED AND PAT+ [address] [place] [address] * (ABNORMAL) TSH (08/20/2018 2:30 PM EST) TSH 29.06(H) 0.27 - 4.20 uIU/mL [facility] Blood 08/20/2018 2:30 PM EST 08/20/2018 2:38 PM EST us Cece Sheth PA-C LAB BLOOD ORDERABLES Final Resu lt Performing Organization Address [facility]/ZIP Co de Phone Number [address] [address] * (ABNORMAL) C-Reactive Protein (08/20/2018 2:30 PM EST) C REACTIVE PROTEIN 6.8(H) 0.0 - 4.0 mg/L [facility] Blood 08/20/2018 2:30 PM EST 08/20/2018 2:38 PM EST us Cece Sheth PA-C LAB BLOOD ORDERABLES Final Resu lt Performing Organization Address [facility]/ZIP Co de Phone Number [address] [address] * Comprehensive metabolic panel (08/20/2018 2:30 PM EST) SODIUM 140 133 - 146 mmol/L [facility] POTASSIUM 4.2 3.3 - 5.1 mmol/L [facility] CHLORIDE 101 96 - 108 mmol/L [facility] CO2 28 21 - 35 mmol/L [facility] BUN 18 6 - 19 mg/dL [facility] CREATININE 0.60 0.5 - 1.5 mg/dL [facility] GLUCOSE 92 70 - 99 mg/dL [facility] ALBUMIN 4.2 3.9 - 4.8 g/dL [facility] TOTAL PROTEIN 7.5 6.5 - 8.0 g/dL [facility] CALCIUM 9.4 8.4 - 10.3 mg/dL [facility] ALKALINE PHOSPHATASE 97 39 - 117 U/L [facility] TOTAL BILIRUBIN 0.3 0.0 - 1.2 mg/dL [facility] AST 28 0 - 37 U/L [facility] ALT 26 0 - 40 U/L [facility] GLOBULIN 3.3 1 - 4.8 g/dL [facility] EGFR 102 >59 mL/min/1.7 3m2 [facility] Comment:If patient is black, multiply result by 1.159. Estimated glomerular filtration rate calculated using the CKD-EPI equation. ANION GAP 15 10 - 20 mmol/L [facility] Blood 08/20/2018 2:30 PM EST 08/20/2018 2:38 PM EST Cece Sheth PA-C LAB BLOOD ORDERABLES Final Resu lt [facility] [address] [place] [address] * CBC (08/20/2018 2:30 PM EST) WBC 8.26 3.40 - 11.20 K/uL [facility] RBC 4.19 3.80 - 4.80 M/uL [facility] HGB 13.3 12.0 - 15.0 g/dL [facility] HCT 40.1 36.0 - 46.0 % [facility] PLT 332 130 - 400 K/uL [facility] MCV 95.7 79.0 - 98.0 fL [facility] MCH 31.7 27.0 - 34.8 pg [facility] MCHC 33.2 31.5 - 36.0 g/dL [facility] RDW 12.6 10.8 - 14.6 % [facility] MPV 9.6 9.4 - 12.4 fl [facility] NRBC 0.00 0.00 /100 WBCs [facility] ABSOLUTE NRBC 0.00 0.00 K/uL [facility] Blood 08/20/2018 2:30 PM EST 08/20/2018 2:38 PM EST Cece Sehth PA-C LAB BLOOD ORDERABLES Final Resu lt Performing Organization Address [facility] Co de Phone Number [address] [address] * Immunoglobulin A (08/20/2018 2:30 PM EST) IgA 239 70 - 400 mg/dL [facility] Blood 08/20/2018 2:30 PM EST 08/20/2018 2:38 PM EST Cece Sheth PA-C LAB BLOOD ORDERABLES Final Resu lt Performing Organization Address [facility] Co de Phone Number [address] [address] documented in this encounter Visit Diagnoses Diagnosis Change in bowel habits- Primary Other symptoms involving digestive system documented in this encounter Care Teams Web Applications Programmer Relationship Specialty Start Date End Date Patrick Mathur MD [address] [place] [address] [email or web address] PCP - General 11/09/15 12/02/23 Celestina Trinidad MD [address] [address] PCP - General Internal Medicine 12/03/23 documented as of this encounter Additional Source Comments The information contained in this document represents components of the legal health record. It is not the complete legal health record.[facility]
--- OUTSIDE RECORDS SUMMARY | 2025-05-05 16:57 | XMS_ITS | Encounter Summary ---
Author Organization [facility] Address [address] [facility] [address] [place] [address] Phone Care Team Providers Care Appraisal Specialist Name Role Phone Patrick Mathur MD Primary Care Provider Celestina Trinidad MD Primary Care Provid er Encounter Details Date Type Department Care Team (Late st Contact Info) Description 04/27/2022 Transcribe Orders Virtual Department [address] [place] [address] Shae Mosqueda, DO [address] [facility] [facility] [address] [address] Social History Tobacco Use Types Packs/Day Years [...] Description 05/25/2025 2:30 PM EDT Office Visit [facility] Department of Orthopaedics [address] [place] [address] Rodrigo John MD [address] [place] [address] Department [place] [address] [email or web address] documented as of this encounter Visit Diagnoses Not on filedocumented in this encounter Care Teams Appraisal Specialist Relationship Specialty Start Date End Date Patrick Mathur MD [address] [place] [address] [email or web address] PCP - General 11/09/15 12/02/23 Celestina Trinidad MD [address] [address] PCP - General Internal Medicine 12/03/23 documented as of this encounter Additional Source Comments The information contained in this document represents components of the legal health record. It is not the complete legal health record.[facility]
--- OUTSIDE RECORDS SUMMARY | 2025-05-05 16:57 | XMS_ITS | Encounter Summary ---
Author Organization [facility] Address [address] [facility] [facility] [address] [place] [address] Phone Care Team Providers Care Certified Registered Dental Assistant Name Role Phone Patrick Mathur MD Primary Care Provider + [phone] Celestina Trinidad MD Primary Care Provid er Reason for Referral * MRI/CAT Scan - Closed Specialty Diagnoses / Procedures Referred By Yvonne t Referred To Contact Radiology Diagnoses Lumbar radiculopathy Procedures MRI Lumbar Spine Elder Good NP Phone: tel: fax: Referral ID Status Reason Start Date Expiration Date Visits Re quested Visits Authorized [id number] Closed 09/01/2020 09/01/2021 1 1 Encounter Details Date Type Department Care Team (Latest Contact Info) Description 09/01/2020 Transcribe Orders Virtual Department [address] [place] [address] Elder Good NP [address] [place] [address] Lumbar radiculopathy (Primary Dx) Social History Tobacco [...] Description 05/25/2025 2:30 PM EDT Office Visit [facility] Department of Orthopaedics [address] [place] [address] Rodrigo John MD [address] [place] [address] Department of [place] [address] [email or web address] documented as of this encounter Results [...] be correlatedclinically. 5. Multilevel degenerative disc changes. 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 XSPECIALTY Final Re sult documented in this encounter Visit Diagnoses Diagnosis Lumbar radiculopathy- Primary Thoracic or lumbosacral neuritis or radiculitis, unspecified Lumbar radiculopathy Thoracic or lumbosacral neuritis or radiculitis, unspecified documented in this encounter Care Teams Certified Registered Dental Assistant Relationship Specialty Start Date End Date Patrick Mathur MD [address] [place] [address] PCP - General 11/09/15 12/02/23 Celestina Trinidad MD [address] [address] PCP - General Internal Medicine 12/03/23 documented as of this encounter Additional Source Comments The information contained in this document represents components of the legal health record. It is not the complete legal health record.[facility]
--- OUTSIDE RECORDS SUMMARY | 2025-05-05 16:57 | XMS_ITS | Encounter Summary ---
Author Organization [facility] Address [address] [facility] [address] [place] [address] Phone Care Team Providers Care Cloth Winder Name Role Phone Patrick Mathur MD Primary Care Provider Celestina Trinidad MD Primary Care Provid er Encounter Details Date Type Department Care Team (Late st Contact Info) Description 10/06/2021 Transcribe Orders [facility] [address] [place] [address] Celina Mclean MD [address] [place], [place] [id number] [email or web address] Social History Tobacco Use Types Packs/Day Years [...] Description 05/25/2025 2:30 PM EDT Office Visit [facility] Department of Orthopaedics [address] [place] [address] Rodrigo John MD [address] [place] [address] Department [place] [address] [email or web address] documented as of this encounter Visit Diagnoses Not on filedocumented in this encounter Care Teams Cloth Winder Relationship Specialty Start Date End Date Patrick Mathur MD [address] [place] [address] PCP - General 11/09/15 12/02/23 Celestina Trinidad MD [address] [address] PCP - General Internal Medicine 12/03/23 documented as of this encounter Additional Source Comments The information contained in this document represents components of the legal health record. It is not the complete legal health record.[facility]
--- OUTSIDE RECORDS SUMMARY | 2025-05-05 16:57 | XMS_ITS | Clinical Summary ---
Author Organization [facility] Address [address] [place] [address] Care Team Providers Care Dust Mixer Name Role Phone Celestina Trinidad Primary Care [...] patient's age to complete this topic Insurance [facility] MEDICARE Care Teams Dust Mixer Relationship Specialty Start Date End Date Celestina Trinidad [address] [place] [address] PCP - General Internal Medicine 12/10/23
== END 2025-05-05 14:29 | disposition home or self-care (01) ==
LOC: HO.PMCPRC 13:46
PROVIDERS: PCP Pediatrics; Visit Provider Anesthesiology
DX: M25.551 Pain in right hip (principal); M16.11 Unilateral primary osteoarthritis, right hip
CPT/HCPCS: 20610; 77002

== ENCOUNTER 2025-06-11 13:44 | Outpatient (AMB) | payer MEDICARE, MEDICAID, SELFPAY ==
--- OUTSIDE RECORDS SUMMARY | 2015-11-11 23:00 | XMS_ITS | Encounter Summary ---
Author Organization [facility] Address [address] [place] [address] Phone Care Team Providers Care Sales Promotion Officer Name Role Phone Patrick Mathur MD Primary Care Provider Encounter Details Date Type Department Care Team (Late st Contact Info) Description 11/12/2015 Hospital Encounter [facility] [address] [place] [address] Jeferson Rondon Jp, MD [address] [place] [address] [email or web address] Social History Tobacco Use Types Packs/Day Years Used Date Smoking Tobacco: Former Smokeless Tobacco: Never Alcohol Use Standard Drinks/Week Comments Yes 0 (1 standard drink = 0.6 oz pur e alcohol) 2/MO Education Answer Date Recorded Are you interested in more education? Not on bruno e 11/23/2022 Are you concerned about learning? Not on file 11/23/2022 No 11/23/2022 No 11/23/2022 Food Answer Date Recorded Within the past 6 months we worried whether our food would run out before we got money to buy more. I choose not to answer 04/15/2025 Within the past 6 months the food we bought just didn't last and we didn't have enough money to get more. I choose not to answer 04/15/2025 Residential Stability Answer Date Recor ded What is your housing situation today? I choose n ot to answer 04/15/2025 How many times have you move d in the past 12 months? I choose not to answer 04/15/2025 Paying for Meds Answer Date Recorded Do you have trouble paying for medicines? I karina se not to answer 04/15/2025 Paying Utility Bills Answer Date Record ed Do you have trouble paying y our heating or electricity bill? I choose not to answer 04/15/2025 Transportation Answer Date Recorded Has the lack of transportati on kept you from medical appointments or from getting medications? I choose not to answer 04/15/2025 Digital Access Answer Date Recorded No 04/15/2025 No 04/15/2025 Do you have reliable internet access at home? I choose not to answer 04/15/2025 Do you have a device (e.g., phone, tablet, computer) with a working camera? I choose not to answer 04/15/2025 Intimate Partner Violence Answer Date R ecorded Are you denied basic needs s uch as food, clothing, or medical care? No 06/03/2025 In the past 12 months have y ou been in a relationship with a person who hurts, threatens, or tries to control you? No 06/03/2025 Are you denied basic needs s uch as food, clothing, or medical care? No 06/03/2025 In the past 12 months have y ou been in a relationship with a person who hurts, threatens, or tries to control you? No 06/03/2025 Comments Unknown Sex and Gender Information Value Date Recorded Sex Assigned at Not on file Legal Sex Female 7:41 PM EST Gender Identity Genderqueer/Queer 01/20/2025 1:3 5 PM EDT Sexual Orientation Queer 01/20/2025 1: 35 PM EDT documented as of this encounter Functional Status * Calculated C-SSRS Risk Score (Lifetime/Recent) Answer Date of Assessment Author No Risk Indicated 04/15/2025 12:06 PM EDT Vandana Barrios RN * [place] Suicide Severity Rating Scale (Screener/Recent Self-Report) Question Answer Date of Assessment Author 1. Wish to be (Past 1 Month) No 04/15/2025 12:06 PM EDT Vandana Barrios RN 2. Non-Specific Active Suici crissy Thoughts (Past 1 Month) No 04/15/2025 12:06 PM EDT Lindsey Barrios RN 6. Suicidal Behavior (Lifetime) No 12:06 PM EDT Vandana Barrios RN documented as of this encounter Plan of Treatment Upcoming Encounters Date Type Department Care Team (Late st Contact Info) Description 10/27/[address] [facility] [address] [address] Linus Herman, [address] [address] [email or web address] 10/27/2025 Procedure Pass [address] [address] Scheduled Procedures Name Priority Associated Diagnoses Date/Ti me REPLACEMENT TOTAL HIP ANTERIOR Avascular necrosis of bone of right hip documented as of this encounter Procedures Procedure Name Priority Date/Time Associated Diagnosis Comments MRI UPPER EXTREMITY OUTSIDE (NO INTERPRETATION) Routine 11/12/2015 12:00 AM EDT documented in this encounter Results * MRI Outside Upper Extremity (No Interpretation) (11/12/2015 12:00 AM EDT) Narrative [facility] IMG INTERFACES - 12/24/2015 10:46 AM EDT This study is for PACS storage only and not for interpretation. Procedure Note SYSTEMGENERATED, DOCUMENTATION - 12/24/2015 This study is for PACS storage only and not for interpretation. us Jeferson Rondon MD IMG OUTSIDE IMAGING W/OUT INTER PRETATION Final Result [facility] IMG INTERFACES documented in this encounter Visit Diagnoses Not on filedocumented in this encounter Care Teams Sales Promotion Officer Relationship Specialty Start Date End Date Patrick Mathur MD [facility] [place] [address] [email or web address] PCP - General 11/09/15 12/02/23 documented as of this encounter Additional Source Comments The information contained in this document represents components of the legal health record. It is not the complete legal health record.[facility]
--- OUTSIDE RECORDS SUMMARY | 2025-06-07 23:59 | XMS_ITS | Continuity of Care Document ---
Author Organization [facility] Address [address] [place] [address]- Care Team Providers Care Manual Winder Name Role Phone Vivi HENNING, Celestina Givens Primary Care Physician Encounter [facility] Date(s): 05/08/25 - 06/07/25 [facility] [address] [place] [address]- Encounter Type: Triage Allergies, Adverse Reactions, Alerts [...] 08/21/22 Given tetanus/diphtheria/pertussis, acel(Tdap) 7 08/13/12 Given [id number] 12y+ bivalent booster vax 06/14/22 Recorded SARS-CoV-2 mRNA (urfihiy-jxjp-gibip) vax 02/14/22 Recorded SARS-CoV-2 (COVID-19) mRNA BNT-162b2 vac 05/06/21 Given SARS-CoV-2 (COVID-19) mRNA BNT-162b2 vac 11/04/20 Recorded SARS-CoV-2 (COVID-19) mRNA BNT-162b2 vac 10/14/20 Recorded pneumococcal 23-valent vaccine 8 04/07/19 Given 1Result Comment: screening negative 2Result Comment: [facility]# [id number] 3Result Comment: [05/25/2018] seq[employer] lot number [id number] exp 01/26/2019 [facility] [id number] 4Result Comment: [08/20/2017] [facility] [id number] 5Admin Note: VIM dated 01/29/12 GIVEN TODAY 6Result Comment: [facility]# [id number] 7Admin Note: VIM dated 08/22/11 GIVEN TODAY 8Result Comment: [facility]#[id number] Medications acetaminophen 500 mg oral capsule 2 capsule = 1,000 mg, By Mouth, 2 times a day, 0 Refills, Maintenance, 07/25/21 4:23:00 PM EST, Partial fill upon patient request if the prescription is for a schedule II opioid drug. Start Date: 07/25/21 Status: Ordered Medication Dispense Status: Completed Total Allowed Fills: 1 Fills Dispensed: 0 Aerochamber w/Mask (Medium) See Instructions, # 1 each, Maintenance, Use as directed with albuterol inhaler. Asthma ICD 10 codeJ45.909, 06/13/24 11:42:00 AM EST, Compound, 157.5, cm, 02/12/24 14:48:00 EDT, Height, 145.9, kg, 05/22/23 7:39:00 EDT, Dry Weight Start Date: 06/13/24 Status: Ordered Medication Dispense Status: Completed Quantity: 1.0 Unit: each Total Allowed Fills: 1 Fills Dispensed: 0 Compression Stockings See Instructions, # 2 each, Refills 2, Tot. Refills 2, Maintenance, surgical, calf length 20-30 mm Hg Dx: venous insufficiency, 07/01/22 6:53:00 AM EST, Compound, 158, cm, 06/09/22 11:21:00 EST, Height, 143, kg, 01/04/21 10:42:00 EDT, Dry Weight Start Date: 07/01/22 Status: Ordered Medication Dispense Status: Completed Quantity: 2.0 Unit: each Total Allowed Fills: 3 Fills Dispensed: 0 Compression Stockings See Instructions, # 3 each, Maintenance, surgical, calf length 20-30 mm Hg Venous insufficiency. (187.2), 10/30/22 4:07:00 PM EDT, Venous insufficiency. (187.2), Supply Start Date: 10/30/22 Status: Ordered Medication Dispense Status: Completed Quantity: 3.0 Unit: each Total Allowed Fills: 1 Fills Dispensed: 0 diclofenac 1% topical gel See Instructions, APPLY TO AFFECTED AREA 4 TIMES A DAY. NOT COVERED, # 100 Gm, 1 Refills, Maintenance, 04/16/25 11:02:00 AM EDT, [facility], 30, APPLY TO AFFECTED AREA 4 TIMES A DAY. NOT COVERED,157.5, cm, 02/11/25 16:37:00 EDT, Height, 145.9, kg, 05/22/23 7:39:00 EDT, Dry Weight Start Date: 04/16/25 Status: Ordered Medication Dispense Status: Completed Quantity: 100.0 Unit: g Total Allowed Fills: 1 Fills Dispensed: 0 Dulera 50 mcg-5 mcg/inh inhalation aerosol 2 puffs, Inhalation, 2 times a day, PRN Other, as needed for cough, wheezing, or shortness of breath; may use up to 4 times daily for up to 1 week due to acute symptoms but notify prescriber if needing longer. Rinse mouth and throat after use., # 13 Gm, 11 Refills, Maintenance, 08/29/23 5:07:00 PM EST, Aerosol, [facility]/pharmacy #2024, Partial fill upon [...] Dry Weight Start Date: 08/29/23 Status: Ordered Medication Dispense Status: Completed Quantity: 13.0 Unit: g Total Allowed Fills: 12 Fills Dispensed: 0 Indications: Mild persistent asthma, uncomplicated; Flonase 50 mcg/inh nasal spray See Instructions, 2 sprays Nares twice daily x 1 week, then once daily x 1-2 weeks until symptoms improve, # 16 Gm, 0 Refills, Maintenance, 02/28/21 4:31:00 PM EDT, [place], [facility]/pharmacy #2025, Partial fill upon patient request if the prescription is for a schedule II opioid drug., 2 sprays Nares twicedaily x 1 week, then once daily x 1-2 weeks until symptoms improve, 160.02, cm, 02/28/21 15:45:00 EDT, Height, 143, kg, 01/04/21 10:42:00 EDT, Dry Weight Start Date: 02/28/21 Status: Ordered Medication Dispense Status: Completed Quantity: 16.0 Unit: g Total Allowed Fills: 1 Fills Dispensed: 0 Indications: Unspecified nonsuppurative otitis media, unspecified ear; FLUoxetine 10 mg oral capsule 1, capsule, By Mouth, Daily, INSTR:TO BE TAKEN WITH 20MG CAPSULES TO EQUAL 30MG DAILY, # 90 capsule, Refills 1, Maintenance, 01/15/25 12:40:00 PM EDT, Route to Pharmacy Electronically, [id number], 157.5, cm, 12/18/24 10:06:00 EDT, Height, 145.9, kg, 05/22/23 7:39:00 EDT, Dry Weight Start Date: 01/15/25 Status: Ordered Medication Dispense Status: Completed Quantity: 90.0 Unit: capsule Total Allowed Fills: 1 Fills Dispensed: 0 FLUoxetine 40 mg oral capsule 1 capsule = 40 mg, By Mouth, Daily, # 90 capsule, 2 Refills, Maintenance, 02/06/25 5:08:00 PM EDT, Capsule, [facility]/pharmacy #2025, Partial fill upon patient request if the prescription is for a schedule II opioid drug., 157.5, cm, 12/18/24 10:06:00 EDT, Height, 145.9, kg, 05/22/23 7:39:00 EDT, Dry Weight Start Date: 02/06/25 Status: Ordered Medication Dispense Status: Completed Quantity: 90.0 Unit: capsule Total Allowed Fills: 3 Fills Dispensed: 0 gabapentin 300 mg oral capsule 600 mg, [...] Dry Weight Start Date: 08/25/22 Status: Ordered Medication Dispense Status: Completed Quantity: 180.0 Unit: capsule Total Allowed Fills: 4 Fills Dispensed: 0 Hibiclens 4% soap See Instructions, use as directed on skinfolds, # 120 mL, 4 Refills, Soft Stop, 02/06/25 5:07:00 PM EDT, [facility]/pharmacy #2024, Partial fill upon patient request if the prescription is for a schedule II opioid drug., use as directed on skinfolds, 157.5, cm, 12/18/24 10:06:00 EDT, Height, 145.9, kg, 05/22/23 7:39:00 EDT, Dry Weight Start Date: 02/06/25 Status: Ordered Medication Dispense Status: Completed Quantity: 120.0 Unit: mL Total Allowed Fills: 5 Fills Dispensed: 0 Home Blood Pressure Monitor See Instructions, # 1 each, Maintenance, use to check pressure daily, 10/24/22 11:58:00 AM EDT, Please ensure available cuff will fit pt's arm or wrist, Supply Start Date: 10/24/22 Status: Ordered Medication Dispense Status: Completed Quantity: 1.0 Unit: each Total Allowed Fills: 1 Fills Dispensed: 0 levothyroxine 175 mcg (0.175 mg) oral tablet 1 tablet = 175 mcg, By Mouth, Daily, # 90 tablet, 0 Refills, Maintenance, 03/11/25 10:17:00 AM EDT, Tablet, [facility], Partial fill upon patient request if the prescription is for a schedule II opioid drug., 157.5, cm, 02/11/25 16:37:00 EDT, Height, 145.9, kg, 05/22/23 7:39:00 EDT, Dry Weight Start Date: 03/11/25 Status: Ordered Medication Dispense Status: Completed Quantity: 90.0 Unit: tablet Total Allowed Fills: 1 Fills Dispensed: 0 levothyroxine 175 mcg (0.175 mg) oral tablet 1 tablet = 175 mcg, By Mouth, Daily, # 90 tablet, 2 Refills, Maintenance, 06/17/24 1:48:00 PM EST, Tablet, [facility]/pharmacy #2025, Partial fill upon patient request if the prescription is for a schedule II opioid drug., 157.5, cm, 06/16/24 14:53:00 EST, Height, 145.9, kg, 05/22/23 7:39:00 EDT, Dry Weight Start Date: 06/17/24 Status: Ordered Medication Dispense Status: Completed Quantity: 90.0 Unit: tablet Total Allowed Fills: 3 Fills Dispensed: 0 meclizine 25 mg oral tablet See Instructions, PRN Dizziness, 1 tablet By Mouth 3 times a day, # 30 tablet, 0 Refills, Maintenance, 02/27/23 10:43:00 AM EDT, [facility]/pharmacy #2025, Partial fill upon patient request if the prescription is for a schedule II opioid drug., 157, cm, 12/08/22 14:27:00 EDT, Height, 145, kg, 08/29/22 20:13:00 EST, Dry Weight Start Date: 02/27/23 Status: Ordered Medication Dispense Status: Completed Quantity: 30.0 Unit: tablet Total Allowed Fills: 1 Fills Dispensed: 0 meloxicam 15 mg oral tablet See Instructions, TAKE 1 TABLET BY MOUTH DAILY WITH FOOD. *NEEDS TO GET CBC LAB FOR REFILLS, # 30 tablet, 1 Refills, Maintenance, 04/20/25 4:09:00 PM EDT, [id number], 157.5, cm, 04/20/25 15:45:00EDT, Height, 145.9, kg, 05/22/23 7:39:00 EDT, Dry Weight Start Date: 04/20/25 Status: Ordered Medication Dispense Status: Completed Quantity: 30.0 Unit: tablet Total Allowed Fills: 1 Fills Dispensed: 0 meloxicam 15 mg oral tablet See Instructions, TAKE 1 TABLET BY MOUTH DAILY WITH FOOD. *NEEDS TO GET CBC LAB FOR REFILLS, # 30 tablet, 0 Refills, Maintenance, 01/16/25 9:26:00 AM EDT, [id number], 157.5, cm, 12/18/24 10:06:00EDT, Height, 145.9, kg, 05/22/23 7:39:00 EDT, Dry Weight Start Date: 01/16/25 Status: Ordered Medication Dispense Status: Completed Quantity: 30.0 Unit: tablet Total Allowed Fills: 1 Fills Dispensed: 0 meloxicam 15 mg oral tablet See Instructions, TAKE 1 TABLET BY MOUTH DAILY WITH FOOD. *NEEDS TO GET CBC LAB FOR REFILLS, # 30 tablet, 1 Refills, Maintenance, 02/18/25 11:13:00 AM EDT, [id number], 157.5, cm, 02/11/25 16:37:00 EDT, Height, 145.9, kg, 05/22/23 7:39:00 EDT, Dry Weight Start Date: 02/18/25 Status: Ordered Medication Dispense Status: Completed Quantity: 30.0 Unit: tablet Total Allowed Fills: 2 Fills Dispensed: 0 oxyCODONE 5 mg oral tablet 5 mg, 1, tablet, By Mouth, Every 4 hours, PRN, For use during acute kidney stone symptoms, # 30 tablet, Refills 0, Tot. Refills 0, Maintenance, Pain , Severe, 04/16/25 12:02:00 PM EDT, Route to Pharmacy Electronically, [facility]/pharmacy #[id number], Partial fill upon patient request, 157.5, cm, 02/11/25 16:37:00 EDT, Height, 145.9, kg, 05/22/23 7:39:00 EDT, Dry Weight Start Date: 04/16/25 Status: Ordered Medication Dispense Status: Completed Quantity: 30.0 Unit: tablet Total Allowed Fills: 1 Fills Dispensed: 0 Indications: Calculus of kidney; ROLLATOR WALKER with seat and wheels, HEAVY DUTY ROLLATOR WALKER with seat and wheels, HEAVY DUTY, See Instructions, # 1 each, Refills 0, Tot. Refills 0, Maintenance, use as directed. Diagnosis: osteoarthritis, Sacroiliiac dysfunction, sciatica, 02/22/24 8:47:00 AM EDT, Supply Start Date: 02/22/24 Status: Ordered Medication Dispense Status: Completed Quantity: 1.0 Unit: each Total Allowed Fills: 1 Fills Dispensed: 0 Rollator wheeled walker with seat Rollator wheeled walker with seat, See Instructions, # 1 each, Refills 0, Tot. Refills 0, Maintenance, DX: Sacroiliac pain, 02/12/24 3:46:00 PM EDT, Supply Start Date: 02/12/24 Status: Ordered Medication Dispense Status: Completed Quantity: 1.0 Unit: each Total Allowed Fills: 1 Fills Dispensed: 0 Splint See Instructions, # 1 each, Maintenance, left wrist short cock-up splint, 01/08/20 2:28:00 PM EDT, Supply Start Date: 01/08/20 Status: Ordered Medication Dispense Status: Completed Quantity: 1.0 Unit: each Total Allowed Fills: 1 Fills Dispensed: 0 Indications: Pain in left wrist; traMADol 50 mg oral tablet 1 tablet = 50 mg, By Mouth, Every 4 hours, PRN for pain, max 5 tabs per day, # 140 tablet, 0 Refills, Maintenance, 06/03/25 4:49:00 PM EST, Tablet, [facility], 157.5, cm, 04/20/25 15:45:00 EDT, Height Start Date: 06/03/25 Status: Ordered Medication Dispense Status: Completed Quantity: 140.0 Unit: tablet Total Allowed Fills: 1 Fills Dispensed: 0 Vitamin D3 2000 intl units oral capsule 2 capsule = 100 mcg, By Mouth, Daily, # 180 capsule, 1 Refills, Maintenance, 11/23/23 5:40:00 PM EDT, Capsule, [facility], Partial fill upon patient request if the prescription is for a schedule II opioid drug., 157.5, cm, 10/18/23 15:15:00 EDT, Height, 145.9, kg, 05/22/23 7:39:00 EDT, Dry Weight Start Date: 11/23/23 Status: Ordered Medication Dispense Status: Completed Quantity: 180.0 Unit: capsule Total Allowed Fills: 2 Fills Dispensed: 0 Zepbound Pen 12.5 mg/0.5 mL subcutaneous solution = 12.5 mg, Subcutaneous Injection, Every week, rotate injection sites, # 2 mL, 3 Refills, Maintenance, 05/12/25 11:09:00 AM EDT, Solution, [facility]/pharmacy #2024, Partial fill upon patient request if theprescription is for a schedule II opioid drug., 157.5, cm, 04/20/25 15:45:00 EDT, Height, 145.9, kg, 05/22/23 7:39:00 EDT, Dry Weight Start Date: 05/12/25 Status: Ordered Medication Dispense Status: Completed Quantity: 2.0 Unit: mL Total Allowed Fills: 4 Fills Dispensed: 0 zolpidem 10 mg oral tablet 1 tablet, By Mouth, Daily at bedtime, PRN NEEDED FOR INSOMNIA, # 30 tablet, 0 Refills, Maintenance, 05/27/25 6:25:00 PM EDT, [facility], 157.5, cm, 04/20/25 15:45:00 EDT, Height Start Date: 05/27/25 Stop Date: 06/27/25 Status: Ordered Medication Dispense Status: Completed Quantity: 30.0 Unit: tablet Total Allowed Fills: 1 Fills Dispensed: 0 Problem List Condition Confirmation Course Effective Dates [...] day x 25 years; entered on: 11/14/21 Sexual Orientation Self described orien tation: ; Lesbian, johnston or homosexual Sex Sex Representation Female (finding) Implantable Device List Procedure Provider Procedure Date Device Type Site Repair Hernia Umbilical Laparoscopic Yasemin Diaz MD 05/22/23 Unknown Umbilicus Device Identifier Serial Number Lot or Batch Number Manufacturing Date Expiration Date Distinct Identification Code MRI Safety Implantable Status Assigning Authority [id number] Unknown [id number] Unknown 08/26/24 Unknown Unknown Active GS1 Patient Care team information Care Team Personnel Name: Celestina Trinidad MD Position: [facility] Physician - Primary Care Member Role: PCP Address: [address] [place] [address] Telecom: Name: Hemalatha Lucas RN Position: [facility] RN Member Role: Primary Care Nurse Name: Lauren Mack RN Position: [facility] RN Member [...] Bonilla RN Position: [facility] Hospital Recreational Assistant Member Role: Primary Care Nurse Care Team Related Persons Name: DINESH SARGENT Name: BON DE Insurance Providers Guarantor name: JORGE ALBERTOKUSH SAHU [employer] Plan Information #: 1 Payer: MEDICARE B Payer Identifier: NA Member Number: [id number] Group Number: NA Subscriber Identifier: NA Relationship to Subscriber: self Coverage Type: NA Coverage Verification Date: NA Telecom: NA Address: NA Health Plan Information #: 2 Payer: [employer] Payer Identifier: NA Member Number: [id number] Group Number: NA Subscriber Identifier: NA Relationship to Subscriber: self Coverage Type: MEDICAID Coverage Verification Date: NA Telecom: NA Address: NA
--- OUTSIDE RECORDS SUMMARY | 2025-06-09 23:59 | XMS_ITS | Continuity of Care Document ---
Author Organization [facility] Address [address] [place] [address]- Care Team Providers Care Mold Checker Name Role Phone Vivi HENNING, Celestina Givens Primary Care Physician Encounter [facility] [place] Date(s): 05/10/25 - 06/09/25 [facility] [address] [place] [address]- Encounter Type: Triage Allergies, Adverse Reactions, Alerts [...] 08/21/22 Given tetanus/diphtheria/pertussis, acel(Tdap) 7 08/13/12 Given [id number] 12y+ bivalent booster vax 06/14/22 Recorded SARS-CoV-2 mRNA (oukwsbq-asba-bbwpv) vax 02/14/22 Recorded SARS-CoV-2 (COVID-19) mRNA BNT-162b2 vac 05/06/21 Given SARS-CoV-2 (COVID-19) mRNA BNT-162b2 vac 11/04/20 Recorded SARS-CoV-2 (COVID-19) mRNA BNT-162b2 vac 10/14/20 Recorded pneumococcal 23-valent vaccine 8 04/07/19 Given 1Result Comment: screening negative 2Result Comment: [facility] [place]# [id number] 3Result Comment: [05/25/2018] seq[employer] lot number [id number] exp 01/26/[address] [facility] [id number] 4Result Comment: [08/20/2017] [facility] [id number] 5Admin Note: VIM dated 01/29/12 GIVEN TODAY 6Result Comment: [facility]# [id number] 7Admin Note: VIM dated 08/22/11 GIVEN TODAY 8Result Comment: [facility]#[id number] Medications acetaminophen 500 mg oral capsule 2 [...] Maintenance, 04/16/25 11:02:00 AM EDT, [facility], 30, APPLY TO AFFECTED AREA 4 TIMES [...] Refills, Maintenance, 08/29/23 5:07:00 PM EST, Aerosol, [facility]/pharmacy #2024, Partial fill upon patient request [...] 0 Refills, Maintenance, 02/28/21 4:31:00 PM EDT, [place], [facility]/pharmacy #2025, Partial fill [...] EDT, Route to Pharmacy Electronically, [facility], 157.5, cm, 12/18/24 10:06:00 EDT, Height, 145.9, kg, 05/22/23 7:39:00 EDT, Dry Weight Start Date: 01/15/25 Status: Ordered Medication Dispense Status: Completed Quantity: 90.0 Unit: capsule Total Allowed Fills: 1 Fills Dispensed: 0 FLUoxetine 40 mg oral capsule 1 capsule = 40 mg, By Mouth, Daily, # 90 capsule, 2 Refills, Maintenance, 02/06/25 5:08:00 PM EDT, Capsule, [facility]/pharmacy #2025, Partial fill [...] 10:35:00 PM EST, Route to Pharmacy Electronically, [facility]/pharmacy #2024, Partial fill upon patient request [...] Refills, Soft Stop, 02/06/25 5:07:00 PM EDT, [facility]/pharmacy #2024, Partial fill upon patient request [...] Refills, Maintenance, 06/17/24 1:48:00 PM EST, Tablet, [facility]/pharmacy #2025, Partial fill [...] 0 Refills, Maintenance, 02/27/23 10:43:00 AM EDT, [facility]/pharmacy #2025, Partial fill [...] 1 Refills, Maintenance, 04/20/25 4:09:00 PM EDT, [facility], 157.5, cm, 04/20/25 15:45:00EDT, Height, 145.9, kg, [...] 0 Refills, Maintenance, 01/16/25 9:26:00 AM EDT, [facility], 157.5, cm, 12/18/24 10:06:00EDT, Height, 145.9, kg, [...] 1 Refills, Maintenance, 02/18/25 11:13:00 AM EDT, [facility], 157.5, cm, 02/11/25 16:37:00 EDT, Height, 145.9, [...] 12:02:00 PM EDT, Route to Pharmacy Electronically, [facility]/pharmacy #8511, Partial fill upon patient request, 157.5, cm, [...] Refills, Maintenance, 05/12/25 11:09:00 AM EDT, [facility], [facility], Partial fill upon patient request if theprescription is for a schedule II opioid drug., 157.5, cm, 04/20/25 15:45:00 EDT, Height, 145.9, kg, 05/22/23 7:39:00 EDT, Dry Weight Start Date: 05/12/25 Status: Ordered Medication Dispense Status: Completed Quantity: 2.0 Unit: mL Total Allowed Fills: 4 Fills Dispensed: 0 Zepbound Pen 15 mg/0.5 mL subcutaneous solution = 15 mg, Subcutaneous Injection, Every week, rotate injection sites, # 2 mL, 3 Refills, Maintenance, 06/08/25 9:42:00 AM EST, Solution, [facility], Partial fill upon patient request if the prescription is for a schedule II opioid drug., 157.5, cm, 04/20/25 15:45:00 EDT, Height Start Date: 06/08/25 Status: Ordered Medication Dispense Status: Completed Quantity: [...] Code MRI Safety Implantable Status Assigning Authority [id number] Unknown [id number] Unknown 08/26/24 Unknown Unknown Active GS1 Patient Care team information Care Team Personnel Name: Celestina Trinidad MD Position: [facility] Physician - Primary Care Member Role: PCP Address: [address] [place] [address] Telecom: Name: Hemalatha Lucas RN Position: [facility] ED RN W/OE and Tasks Member Role: Primary Care Nurse Name: Lauren [...] Nessa Bonilla RN Position: [facility] Automatic Beading Lathe Operator Member Role: Primary Care Nurse Care Team Related Persons Name: DINESH SARGENT Name: BON DE Insurance Providers Guarantor name: JORGE ALBERTO SAHU [employer] Plan Information #: 1 Payer: MEDICARE B Payer Identifier: NA Member Number: [id number] Group Number: NA Subscriber Identifier: NA Relationship to Subscriber: self Coverage Type: NA Coverage Verification Date: NA Telecom: NA Address: NA Health Plan Information #: 2 Payer: [employer] Payer Identifier: NA Member Number: [id number] Group Number: NA Subscriber Identifier: NA Relationship to Subscriber: self Coverage Type: MEDICAID Coverage Verification Date: NA Telecom: NA Address: NA
[2025-06-11 13:51] VITALS: BP 140/78; PULSE 69; RESP 16; O2SAT 99; BMI 54.0
--- NOTE | 2025-06-11 13:51 | MHC.OFFVIS ---
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 Clinical Research Required: No Accompanied by: Family/Other Allergies No Known Allergies Allergy (Verified 06/11/25 13:54) Medication List - Last Reconciled 06/11/25 by Maddison Jones LPN back brace As directed Sacroiliac Belt cholecalciferol (vitamin D3) (Vitamin D3) 100 mcg PO DAILY diclofenac sodium 1% topical BID fluoxetine 40 mg PO DAILY levothyroxine 175 mcg PO DAILY meloxicam 15 mg PO DAILY mometasone-formoterol 50-5 mcg/actuation (Dulera) inhalation oxycodone mg PO tirzepatide (weight loss) (Zepbound) 15 mg subcut QWEEK tramadol mg PO zolpidem 10 mg PO BEDTIME PRN HPI Comments Details: The patient is a 65-year-old female presenting with hip pain, 1 month s/p right intra-articular hip injection. She reports 80% pain relief since the injection. The hip pain has been significant enough to warrant a scheduled hip replacement surgery on October 27. She has been placed on a cancellation list to potentially expedite the surgery date. The patient reports a decrease in mobility, which has been exacerbated by the hip condition. She has attempted to use a recumbent bike for exercise but finds it difficult due to her hip limitations. Winter conditions further limit her ability to find alternative exercise options, such as swimming. Pain management has been challenging, with the patient using tramadol inconsistently. She reports taking tramadol in the morning and sometimes in the evening, but not regularly, which results in chasing the pain rather than preventing it. She has also used extra strength Tylenol to manage breakthrough pain. - Onset and Timing: Chronic hip pain with significant impact on daily activities. - Quality and Character: Pain is severe enough to require surgical intervention. - Primary Location: Hip region. - Exacerbating Factors: Physical activity and lack of regular pain medication use. - Relieving Factors: Use of tramadol and extra strength Tylenol. - Affect: Pain impacts mobility and daily activities. - Analgesia: Tramadol used inconsistently; extra strength Tylenol for breakthrough pain. - Adverse Effects: None reported. - Activities of Daily Living: Limited by hip pain and reduced mobility. - Aberrant Drug Related Behaviors: None reported. Review of Systems Narrative - Musculoskeletal: Reports chronic hip pain and reduced mobility. - General: Reports difficulty with exercise due to hip pain. Physical Exam Exam Exam: General: awake, alert, oriented. Answers questions appropriately. Fully engaged in examination. Skin: warm, dry, intact HEENT: Normocephalic. Hearing intact. Cardiac: External chest normal in appearance. Respiratory: No cough, audible wheezing or stridor. Abdomen: without gross distension. MS: No obvious swelling or deformities. Neurological: Oriented to person, place, time and situation. Thought process intact. Ambulates with the use of a cane Psychiatric: Appropriate mood and affect. Good judgment and insight. Vital Signs: Last Vital Signs Pulse 69 06/11/25 13:51 Resp 16 06/11/25 13:51 BP 140/78 H 06/11/25 13:51 Pulse Ox 99 06/11/25 13:51 Oxygen Delivery Method Room Air 06/11/25 13:51 BMI result Body Mass Index 54.0 Results Reviewed Results Reviewed: 04/202404/17/24 MR/MR lumbar spine wo con FINDINGS: Minimal left convex curvature of the lumbar spine. Degenerative grade 1 anterolisthesis of L4 on L5. Moderate degenerative disc disease from L2-S1. Mild degenerative disc disease at all additional levels. Associated mixed Modic type discogenic endplate changes including Modic type I discogenic edema from T12-S1 . Mild marrow edema within the posterior elements of L3-S1 consistent with degenerative stress reaction. No additional suspicious marrow edema. The vertebral body heights are well-maintained. The conus medullaris terminates at the level of L1. The distal spinal cord is normal in appearance. No significant abnormalities of the paraspinal musculature. Limited evaluation of the intra-abdominal structures without significant abnormalities. The abdominal aorta is of normal contour and caliber. AXIAL SPINAL LEVELS: L1-L2: Mild diffuse disc bulge. There is mild bilateral facet joint arthropathy. There is mild bilateral neural foraminal stenosis. There is no spinal canal stenosis. L2-L3: Mild diffuse disc bulge. There is severe right and moderate left facet joint arthropathy. There is moderate bilateral neural foraminal stenosis. There is stenosis of the subarticular zones with moderate spinal canal stenosis centrally. L3-L4: Moderate diffuse disc bulge with posterior osseous ridging. There is moderate bilateral facet joint arthropathy. There is severe bilateral neural foraminal stenosis. There is stenosis of the subarticular zones with moderate spinal canal stenosis centrally. L4-L5: Prominent diffuse disc bulge exacerbated by uncovering from anterolisthesis. There is severe bilateral facet joint arthropathy. There is moderate to severe bilateral neural foraminal stenosis. There is stenosis of the subarticular zones with moderate to severe spinal canal stenosis centrally. L5-S1: Moderate diffuse disc bulge. Left lateral osteophyte complex abutting the exited left L5 nerve root. There is severe right and moderate left facet joint arthropathy. There is moderate to severe left and moderate right neural foraminal stenosis. There is narrowing of the subarticular zones with no overt spinal canal stenosis centrally. IMPRESSION: Moderate to advanced multilevel degenerative spondyloarthropathy of the lumbar spine as described in detail above. Most notably, there is moderate to severe spinal canal stenosis at L4-L5. Moderate spinal canal stenoses at L2-L3 and L3-L4. Narrowing/stenoses of the subarticular zones from L2-S1. Moderate to severe neural foraminal stenoses from L2-S1. 06/2023 XR LS 04/2022 MRI LS Assessment & Plan Assessment & Plan (1) Osteoarthritis of right hip: Code(s): M16.11 - Unilateral primary osteoarthritis, right hip Category: Medical (2) Hip arthritis: Code(s): M16.10 - Unilateral primary osteoarthritis, unspecified hip Category: Medical (3) Right hip pain: Code(s): M25.551 - Pain in right hip Category: Medical Plan The patient is scheduled for hip replacement surgery on October 27, with a request to be placed on a cancellation list to potentially expedite the procedure. Pain management strategies include the use of tramadol, with a recommendation to regularize its intake to prevent pain rather than react to it. Physical therapy is advised to improve mobility and strength prior to surgery, with a script provided for the patient to take to her preferred therapist. Patient was informed and verbally consented to the use of an ambient scribe for clinic note documentation during this visit. Orders: Orders PT Evaluation and Treatment Today M16.10 - Unilateral primary osteoarthritis, unspecified hip, M16.11 - Unilateral primary osteoarthritis, right hip, M25.551 - Pain in right hip Patient Instructions: - Take tramadol regularly as prescribed to manage pain effectively. - Attend physical therapy sessions to improve hip strength and mobility before surgery. - Monitor for any changes in pain or mobility and report them promptly. - Prepare for hip replacement surgery on October 27, and be ready for a possible earlier date if a cancellation occurs. Coding Level of Care Code Est Pt Level 3 (53299) Complex EM visit Add On G2211 Diagnoses Osteoarthritis of right hip M16.11 Hip arthritis M16.10 Right hip pain M25.551
--- OUTSIDE RECORDS SUMMARY | 2025-06-11 17:05 | XMS_ITS | Data Portability ---
Author Organization [facility], [employer], [facility] Address [address] [place] [phone] Care Team Providers Care Wind Tunnel Mechanic Name Role Phone YAW FOSTER Primary Care [...] XR, ankle , 3 or more view [facility] [address] [place] [address], [address] Name: Chon SAHU : [id number] Date of Servic e: 1426 Acct Number : [id number] Order Number : [id number] Locati on: [facility] Report Number : [id number] Servic e: REG REF/ Reques ting Physic jeimy: Flaquito te,Car ol Catego ry: ORTHOP EDIC RADIOL OGY [facility] Exam: ANKLE 3 VIEWS Right Access ion #: [id number] VH Signs/ Sympto ms: RIGHT ANKLE [...] is seen with 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 There is no acute fractu re [...] Approv ed By Attend ing Radiol ogist: Lisa olivaresPatsy 1625 Orderi ng physic jeimy: Ari caballero Other provid ers: Ari caballero, Ari caballero, , [facility] , Ari caballero, , [facility] [address] [place] [address], [address], 02/26/2018 07:00:25 02/22/20 18 02/21/2018 XR, ankle , 3 or more view [facility] [address] [place] [address], [address] Name: Chon SAHU : [id number] Date of Servic e: 1426 Acct Number : [id number] Order Number : [id number] Locati on: [facility] Report Number : [id number] Servic e: REG REF/ Reques ting Physic jeimy: Rolf Pierson Catego ry: ORTHOP EDIC RADIOL OGY [facility] Exam: ANKLE 3 VIEWS Left Access ion #: [id number] VH Signs/ Sympto ms: LEFT ANKLE [...] osteop hytes of the tibial plafon d 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 There is no acute fractu re or disloc ation. A modera te planta r calcan eal spur is presen t. Os trigon um is presen t. Soft tissue swelli ng circum ferent ially. Mild subcut aneous edema in the distal lower leg. IMPRES TERESA: Osteoc hondra l injury medial talar dome. Planta r calcan eal spur.. Date/T alvino of Dictat ion: 1626 Radiol ogy Reside nt (if applic able): Approv ed By Attend ing Radiol ogist: Patsy Vee 1626 Orderi ng physic jeimy: Ari caballero Other provid ers: Ari caballero, Ari caballero, , [facility] , Ari caballero, , [facility] [address] [place] [address], [address], 02/26/2018 07:00:25 Result Notes Documentation Provider Name and Address Organization Details Recorded Time Xr, Ankle, 3 Or More View : [facility] Department of Radiology [address] [place] [address], [id number] Name: JORGE ALBERTO SAHU : 64 Date of Service: 02/21/18 142 Acct Number: [id number] Order Number: [id number] Location: [facility] Report Number: [id number] Service: REG REF/ Requesting Physician: Ari Joseph Category: ORTHOPEDIC RADIOLOGY [facility] Exam: ANKLE 3 VIEWS Right Signs/Symptoms: RIGHT ANKLE PAIN POST OP Report Status: Signed EXAM: Right ankle, 3 views HISTORY: Pain. Postop. COMPARISON: No prior exam. FINDINGS: There is some subchondral lucency with sclerotic rim in the medial talar dome consistent with prior osteochondral injury. There is a lucent area with sclerotic lesion in the medial malleolus, question subchondral cyst versus related to reconstructive surgery. Mild nonuniform narrowing of the tibiotalar joint is seen with marginal osteophytes posteriorly. There is no acute fracture or dislocation. A moderate plantar calcaneal spur is present. Soft tissue swelling circumferentially. Mild subcutaneous edema in the distal lower leg. IMPRESSION: Osteochondral injury medial talar dome and degenerative changes of the tibiotalar joint. Question degenerative cystic change in the medial malleolus. Date/Time of Dictation: 02/21/181624 Film Mounter (if applicable): Approved By Attending Radiologist: Adilene Matthews 02/21/18 1625 Ordering physician: Ari Joseph Other providers: Ari Newell, , [facility], Ari Joseph, , Ari galo, HANNAH - [facility], [facility] 02/26/2018 07:00:25 Xr, Ankle, 3 Or More View : [facility] Department of Radiology [address] [place] [address], [id number] Name: JORGE ALBERTO SAHU : 64 Date of Service: 02/21/18 1427 Acct Number: [id number] Order Number: [id number] Location: [facility] Report Number: [id number] Service: REG REF/ Requesting Physician: Ari Joseph Category: ORTHOPEDIC RADIOLOGY [facility] Exam: ANKLE 3 VIEWS Left Signs/Symptoms: LEFT ANKLE PAIN POST OP Report Status: Signed EXAM: Left ankle, 3 views HISTORY: Pain. Postop. COMPARISON: No prior exam. FINDINGS: There is some subchondral lucency with sclerotic rim in the medial talar dome consistent with prior osteochondral injury. Marginal osteophytes of the tibial plafond posteriorly. There is no acute fracture or dislocation. A moderate plantar calcaneal spur is present. Os trigonum is present. Soft tissue swelling circumferentially. Mild subcutaneous edema in the distal lower leg. IMPRESSION: Osteochondral injury medial talar dome. Plantar calcaneal spur.. Date/Time of Dictation: 02/21/181626 Film Mounter (if applicable): Approved By Attending Radiologist: Adilene Matthews 02/21/18 1627 Ordering physician: Ari Joseph Other providers: Ari Newell, , [facility], Ari Joseph, Ari, HANNAH López [facility] 02/26/2018 07:00:25 Problems Name Problem SNOMED Code Status Onset Date Resolution Date Notes Provider Name and Address Organization Details Recorded Time Arthritis 6739930 Active Jeannine galo MA - [facility] 8 15:02:06 Asthma 495675334 Active Jeannine galo MA - [facility] 8 15:02:11 Problem Notes None recorded. Procedures Surgical History Date Name Laterality Status Provider Name and Address Organization Details Recorded Time Knee arthroscopy/surg franco completed [facility] 02/21/2018 15:03:15 Shoulder joint surgery completed [facility] 02/21/2018 15:03:21 Elbow arthroscopy completed [facility] 02/21/2018 15:03:26 Unlisted px hands/fingers completed [facility] 02/21/2018 15:03:30 Imaging Results None recorded. Procedure Notes None recorded. Medical Equipment None [...] Body mass index (BMI) Body weight Systolic And Diastolic Provider Name and Address Organization Details Last Updated DateTime 02/21/2018 160.02 cm 50.5 kg/m2 342693.83 g 128/84 mm[Hg] Jeannine Gary [place] - [facility] [place], [facility] 02/21/2018 14:49:38 Social History Question Answer Notes LastModified by Organizat ion Details LastModified Time Tobacco Smoking Status Former Smoker Jeannine galo [place] - [facility] [place], [facility] 02/21/2018 15:02:54 What Was The Date Of Your Most Recent Tobacco Screening? 02/21/2018 Information n ot available 02/20/2019 How Many Years Have You Smoked Tobacco? 20 Information not available 02/21/2018 Sex: Unknown Functional Status Question Answer Note LastModified by Organization D etails LastModified Time What is your level of alcohol consumption? None Information not available 02/21/2018 Are you currently employed? No Information not available 02/21/2018 What is your occupation? Disabled Information not available 02/21/2018 Mental Status None recorded. Family History Relationship [...] Diagnosis SNOMED-CT Code Diagnosis ICD10 Code Diagnosis IMO Codes Diagnosis Note 23004 ARI JOSEPH MD [facility]_Main_ Office [address] [place] [phone] 02/21/2018 14:31:27 02/21/2018 16:10:28 Ankle pain 813611465 M25.572 M25.571 Health Concerns Section Related Observation LastModified by Organization Detai ls LastModified Time None Recorded Concern Status LastModified by Organization Details LastModified Time None Recorded Advance Directives Directive None Recorded Payers Insurance Date Sequence Insurance Name Policy Number Policy Black Covered Member ID Black Member ID Guarantor Name 02/05/2018 1 [place] [employer] Jorge Alberto Sahu [id number] Jorge Alberto Sahu 02/05/2018 2 [place] [facility] Jorge Alberto Sahu [id number] Jorge Alberto Sahu Notes Date Note Type Note Provider Name and Address Organization Details Recorded Time 8 text/html AnkleReported by PatientHPIFor location, patient reportsbilateral. For quality, patient reportsachingandnot changing. For severity, patient reportssevereandpain level 05/08. For timing, patient reportschronic. For alleviating factors, patient reportsrestandlimited weight bearing. For aggravating factors, patient reportswalkingandweightbe aring. For associated symptoms, patient reportsno redness,no warmth, andno buckling. For previous surgery, patient reportsnone. For prior imaging, patient reportsx ray. For previous injections, patient reportsnone. For previous pt, patient reportsnone. For work related, patient reportsno. For working, patient reportsno.Jorge Alberto is a 57 year old white individual [...] what was entailed in this. 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 There [...] bit of the discussion after the exam Ari galo MA - [facility], [facility] 02/21/2018 17:11:12 OBGyn Episode No OBEpisode recorded.
--- OUTSIDE RECORDS SUMMARY | 2025-06-11 17:05 | XMS_ITS | Encounter Summary ---
Author Organization [facility] Address [address] [place] [address] Phone Care Team Providers Care Mixer Tender Name Role Phone Patrick Mathur MD Primary Care Provider Celestina Trinidad MD Primary Care Provid er Encounter Details Date Type Department Care Team (Late st Contact Info) Description 04/24/2022 Procedure Pass [address] [place] [address] Social History Tobacco Use Types Packs/Day Years [...] st Contact Info) Description 10/27/2025 Hospital Encounter [facility] Periop [address] [place] [address] Linus Herman, [facility] [address] [place] [address] [email or web address] 10/27/2025 Procedure Pass [facility] Periop [address] [place] [address] Scheduled Procedures Name Priority Associated Diagnoses Date/Ti me REPLACEMENT TOTAL HIP ANTERIOR Avascular necrosis of bone of right hip documented as of this encounter Visit Diagnoses Not on filedocumented in this encounter Care Teams Mixer Tender Relationship Specialty Start Date End Date Patrick Mathur MD [address] [place] [address] PCP - General 11/09/15 12/02/23 Celestina Trinidad MD [address] [address] PCP - General Internal Medicine 12/03/23 documented as of this encounter Additional Source Comments The information contained in this document represents components of the legal health record. It is not the complete legal health record.[facility]
--- OUTSIDE RECORDS SUMMARY | 2025-06-11 17:05 | XMS_ITS | Encounter Summary ---
Author Organization [facility] Address [address] [place] [address] Phone Care Team Providers Care Rn Assessment Name Role Phone Patrick Mathur MD Primary Care Provider Celestina Trinidad MD Primary Care Provid er Encounter Details Date Type Department Care Team (Late st Contact Info) Description 09/17/2018 Procedure Pass [facility] Endoscopy Admitting Dept Virtual Department [address] [place] [phone] Social History Tobacco Use Types Packs/Day Years [...] Encounters Date Type Department Care Team (Late Contact Info) Description 10/27/2025 Hospital Encounter [facility] Periop [address] [place] [address] Linus Herman, [facility] [address] [place] [address] [email or web address] 10/27/2025 Procedure Pass [facility] Periop [address] [place] [address] Scheduled Procedures Name Priority Associated Diagnoses Date/Ti me REPLACEMENT TOTAL HIP ANTERIOR Avascular necrosis of bone of right hip documented as of this encounter Visit Diagnoses Not on filedocumented in this encounter Care Teams Rn Assessment Relationship Specialty Start Date End Date Patrick Mathur MD [address] [place] [address] PCP - General 11/09/15 12/02/23 Celestina Trinidad MD [address] [address] PCP - General Internal Medicine 12/03/23 documented as of this encounter Additional Source Comments The information contained in this document represents components of the legal health record. It is not the complete legal health record.[facility]
--- OUTSIDE RECORDS SUMMARY | 2025-06-11 17:05 | XMS_ITS | Encounter Summary ---
Author Organization [facility] Address [address] [place] [address] Phone Care Team Providers Care Light Industrial Supervisor Name Role Phone Patrick Mathur MD Primary Care Provider + [phone] Celestina Trinidad MD Primary Care Provid er Reason for Referral * MRI/CAT Scan - Closed Specialty Diagnoses / Procedures Referred By Yvonne t Referred To Contact Radiology Diagnoses Lumbar radiculopathy Procedures MRI Lumbar Spine Elder Good NP Phone: tel: fax: Referral ID Status Reason Start Date Expiration Date Visits Re quested Visits Authorized [id number] Closed 09/01/2020 09/01/2021 1 1 Encounter Details Date Type Department Care Team (Latest Contact Info) Description 09/01/2020 Transcribe Orders Virtual Department [address] [place] [address] Elder Good NP [address] [place] [address] Lumbar radiculopathy (Primary Dx) Social History Tobacco [...] st Contact Info) Description 10/27/2025 Hospital Encounter [facility] Periop [address] [place] [address] Linus Herman, [address] [address] [email or web address] 10/27/2025 Procedure Pass [facility] [address] [address] Scheduled Procedures Name Priority Associated Diagnoses Date/Ti me REPLACEMENT TOTAL HIP ANTERIOR Avascular necrosis of bone of right hip documented as of this encounter Results * [...] 5. Multilevel degenerative disc changes. Elder Good PAUNCH TRIMMER IMG MR XSPECIALTY Final Re sult documented in this encounter Visit Diagnoses Diagnosis Lumbar radiculopathy- Primary Thoracic or lumbosacral neuritis or radiculitis, unspecified Lumbar radiculopathy Thoracic or lumbosacral neuritis or radiculitis, unspecified documented in this encounter Care Teams Light Industrial Supervisor Relationship Specialty Start Date End Date Patrick Mathur MD [address] [place] [address] [email or web address] PCP - General 11/09/15 12/02/23 Celestina Trinidad MD [address] [address] PCP - General Internal Medicine 12/03/23 documented as of this encounter Additional Source Comments The information contained in this document represents components of the legal health record. It is not the complete legal health record.[facility]
--- OUTSIDE RECORDS SUMMARY | 2025-06-11 17:05 | XMS_ITS | Encounter Summary ---
Author Organization [facility] Address [address] [place] [address] Phone Care Team Providers Care Food Taster Name Role Phone Patrick Mathur MD Primary Care Provider Celestina Trinidad MD Primary Care Provid er Encounter Details Date Type Department Care Team (Late st Contact Info) Description 09/01/2020 Procedure Pass [address] [place] [address] Social History Tobacco Use Types Packs/Day Years [...] Contact Info) Description 10/27/[address] [facility] Periop [address] [place] [address] Linus Herman, [facility] [address] [place] [address] [email or web address] 10/27/[address] [facility] Periop [address] [place] [address] Scheduled Procedures Name Priority Associated Diagnoses Date/Ti me REPLACEMENT TOTAL HIP ANTERIOR Avascular necrosis of bone of right hip documented as of this encounter Visit Diagnoses Not on filedocumented in this encounter Care Teams Food Taster Relationship Specialty Start Date End Date Patrick Mathur MD [address] [place] [address] [email or web address] PCP - General 11/09/15 12/02/23 Celestina Trinidad MD [address] [address] PCP - General Internal Medicine 12/03/23 documented as of this encounter Additional Source Comments The information contained in this document represents components of the legal health record. It is not the complete legal health record.[facility]
--- OUTSIDE RECORDS SUMMARY | 2025-06-11 17:05 | XMS_ITS | Encounter Summary ---
Author Organization Located Within [facility] Address [address] [place] [address] Phone Care Team Providers Care Neurourologist Name Role Phone Patrick Mathur MD Primary Care Provider [phone] Celestina Trinidad MD Primary Care Provid er Encounter Details Date Type Department Care Team (Latest Contact Info) Description 08/20/2018 Transcribe Orders [facility] [address] [place] [address] Cece Sheth, RANDY [address] Lamin Zaman, Chriss. [address] [place] [address] [email or web address] Change in bowel habits (Primary Dx) Social [...] Contact Info) Description 10/27/[address] [facility] Periop [address] [place] [address] Linus Herman, [address] [address] [email or web address] 10/27/[address] [facility] Periop [address] [place] [address] Scheduled Procedures Name Priority Associated Diagnoses Date/Ti me REPLACEMENT TOTAL HIP ANTERIOR Avascular necrosis of bone of right hip documented as of this encounter Results * Tissue transglutaminase IgA (08/20/2018 2:31 PM EST) TTG IGA ANTIBODY <1.2 <4.0 (Negative) U/mL [facility] DPT OF LAB MED AND PAT+ Blood 08/20/2018 2:31 PM EST 08/20/2018 2:38 PM EST us Cece Sheth PA-C LAB BLOOD BKR ORDERABLES Final Result [facility] DPT OF LAB MED AND PAT+ [address] [place] [address] * (ABNORMAL) TSH (08/20/2018 2:30 PM EST) TSH 29.06(H) 0.27 - 4.20 uIU/mL [facility] Blood 08/20/2018 2:30 PM EST 08/20/2018 2:38 PM EST us Cece Sheth PA-C LAB BLOOD BKR ORDERABLES Final Result [facility] [address] [place] [address] * (ABNORMAL) C-Reactive Protein (08/20/2018 2:30 PM EST) C REACTIVE PROTEIN 6.8(H) 0.0 - 4.0 mg/L [facility] Blood 08/20/2018 2:30 PM EST 08/20/2018 2:38 PM EST us Cece Sheth PA-C LAB BLOOD BKR ORDERABLES Final Result [address] [address] * Comprehensive metabolic panel (08/20/2018 2:30 PM EST) SODIUM 140 133 - 146 mmol/L [facility] POTASSIUM 4.2 3.3 - 5.1 mmol/L [facility] CHLORIDE 101 96 - 108 mmol/L [facility] CO2 28 21 - 35 mmol/L [facility] BUN 18 6 - 19 mg/dL [facility] CREATININE 0.60 0.5 - 1.5 mg/dL [facility] GLUCOSE 92 70 - 99 mg/dL [facility] ALBUMIN 4.2 3.9 - 4.8 g/dL [facility] TOTAL PROTEIN 7.5 6.5 - 8.0 g/dL [facility] CALCIUM 9.4 8.4 - 10.3 mg/dL [facility] ALKALINE PHOSPHATASE 97 39 - 117 U/L [facility] TOTAL BILIRUBIN 0.3 0.0 - 1.2 mg/dL [facility] AST 28 0 - 37 U/L [facility] ALT 26 0 - 40 U/L [facility] GLOBULIN 3.3 1 - 4.8 g/dL [facility] EGFR 102 >59 mL/min/1.7 3m2 [facility] Comment:If patient is black, multiply result by 1.159. Estimated glomerular filtration rate calculated using the CKD-EPI equation. ANION GAP 15 10 - 20 mmol/L [facility] Blood 08/20/2018 2:30 PM EST 08/20/2018 2:38 PM EST Cece Sheth PA-C LAB BLOOD BKR ORDERABLES Final Result [address] [address] * CBC (08/20/2018 2:30 PM EST) WBC 8.26 3.40 - 11.20 K/uL [facility] RBC 4.19 3.80 - 4.80 M/uL [facility] HGB 13.3 12.0 - 15.0 g/dL [facility] HCT 40.1 36.0 - 46.0 % [facility] PLT 332 130 - 400 K/uL [facility] MCV 95.7 79.0 - 98.0 fL [facility] MCH 31.7 27.0 - 34.8 pg [facility] MCHC 33.2 31.5 - 36.0 g/dL [facility] RDW 12.6 10.8 - 14.6 % [facility] MPV 9.6 9.4 - 12.4 fl [facility] NRBC 0.00 0.00 /100 WBCs [facility] ABSOLUTE NRBC 0.00 0.00 K/uL [facility] Blood 08/20/2018 2:30 PM EST 08/20/2018 2:38 PM EST us Cece Sheth PA-C LAB BLOOD BKR ORDERABLES Final Result Performing Organization Address City/[facility] Co de Phone Number [address] [address] * Immunoglobulin A (08/20/2018 2:30 PM EST) IgA 239 70 - 400 mg/dL [facility] Blood 08/20/2018 2:30 PM EST 08/20/2018 2:38 PM EST Cece Sheth PA-C LAB BLOOD BKR ORDERABLES Final Result Performing Organization Address [facility] de Phone Number [address] [address] documented in this encounter Visit Diagnoses Diagnosis Change in bowel habits- Primary Other symptoms involving digestive system documented in this encounter Care Teams Neurourologist Relationship Specialty Start Date End Date Patrick Mathur MD [address] [place] [address] PCP - General 11/09/15 12/02/23 Celestina Trinidad MD [address] [address] PCP - General Internal Medicine 12/03/23 documented as of this encounter Additional Source Comments The information contained in this document represents components of the legal health record. It is not the complete legal health record.[facility]
--- OUTSIDE RECORDS SUMMARY | 2025-06-11 17:05 | XMS_ITS | Encounter Summary ---
Author Organization [facility] Address [address] [place] [address] Phone Care Team Providers Care Road Cleaner Name Role Phone Patrick Mathur MD Primary Care Provider [phone] Celestina Trinidad MD Primary Care Provid er Encounter Details Date Type Department Care Team (Late st Contact Info) Description 04/27/2022 Transcribe Orders Virtual Department [address] [place] [address] Shae Mosqueda, DO [address] [address] Social History Tobacco Use Types Packs/Day Years [...] st Contact Info) Description 10/27/20[address] En[address] [facility] Periop [address] [place] [address] Linus Herman, [facility] [address] [place] [address] [email or web address] 10/27/[address] [facility] Periop [address] [place] [address] Scheduled Procedures Name Priority Associated Diagnoses Date/Ti me REPLACEMENT TOTAL HIP ANTERIOR Avascular necrosis of bone of right hip documented as of this encounter Visit Diagnoses Not on filedocumented in this encounter Care Teams Road Cleaner Relationship Specialty Start Date End Date Patrick Mathur MD [address] [place] [address] PCP - General 11/09/15 12/02/23 Celestina Trinidad MD [address] [address] PCP - General Internal Medicine 12/03/23 documented as of this encounter Additional Source Comments The information contained in this document represents components of the legal health record. It is not the complete legal health record.[facility]
--- OUTSIDE RECORDS SUMMARY | 2025-06-11 17:05 | XMS_ITS | Encounter Summary ---
Author Organization [facility] Address [address] [facility] [address] [place] [address] Phone Care Team Providers Care Instrument Mechanic Weapons System Name Role Phone Patrick Mathur MD Primary Care Provider [phone] Celestina Trinidad MD Primary Care Provid er Encounter Details Date Type Department Care Team (Late st Contact Info) Description 10/06/2021 Transcribe Orders [facility] [address] [place] [address] Celina Mclean MD [address] [place], [place] [id number] [email or web address] Social History Tobacco Use Types Packs/Day Years [...] st Contact Info) Description 10/27/2025 Hospital Encounter [facility] Periop [address] [place] [address] Linus Herman, [facility] [address] [place] [address] [email or web address] 10/27/2025 Procedure Pass [facility] Periop [address] [place] [address] Scheduled Procedures Name Priority Associated Diagnoses Date/Ti me REPLACEMENT TOTAL HIP ANTERIOR Avascular necrosis of bone of right hip documented as of this encounter Visit Diagnoses Not on filedocumented in this encounter Care Teams Instrument Mechanic Weapons System Relationship Specialty Start Date End Date Patrick Mathur MD [address] [place] [address] PCP - General 11/09/15 12/02/23 Celestina Trinidad MD [address] [address] PCP - General Internal Medicine 12/03/23 documented as of this encounter Additional Source Comments The information contained in this document represents components of the legal health record. It is not the complete legal health record.[facility]
--- OUTSIDE RECORDS SUMMARY | 2025-06-11 17:05 | XMS_ITS | Encounter Summary ---
Author Organization [facility] Address [address] [place] [address] Phone Care Team Providers Care J2Ee Developer Name Role Phone Celestina Trinidad MD Primary Care Provid er Encounter Details Date Type Department Care Team (Late st Contact Info) Description 05/25/2025 Orders Only [facility] Department of Orthopaedics [address] [place] [address] Rebecca Gilman [address] [place] [address] [email or web address] Pain (Primary Dx) Social History Tobacco Use Types [...] st Contact Info) Description 10/27/2025 Hospital Encounter [facility] Periop [address] [place] [address] Linus Herman, [facility] [address] [place] [address] [email or web address] 10/27/2025 Procedure Pass [facility] Periop [address] [place] [address] Scheduled Procedures Name Priority Associated Diagnoses Date/Ti me REPLACEMENT TOTAL HIP ANTERIOR Avascular necrosis of bone of right hip documented as of this encounter Results * XR HIP 2 VW RIGHT PLUS PELVIS (06/03/2025 12:32 PM EST) Anatomical Region Laterality Modality Hip, Pelvis Computed Radiogr aphy 06/03/2025 2:52 PM EST Impressions 06/03/2025 2:54 PM EST There is unchanged sclerosis of the right femoral head with superior subchondral collapse. Sclerosis of the acetabulum is also seen. 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 Left hip preserved. Degenerative changes of the lower lumbar spine. Hernia clips seen throughout the pelvis. Narrative 06/03/2025 2:54 PM EST XR HIP 2 VW RIGHT PLUS PELVIS Referring clinician's provided indication for this examination in [facility]: Pain COMPARISON: XR HIP 2 VW RIGHT PLUS PELVIS Procedure Note Babak Holden MD - 06/03/2025 XR HIP 2 VW RIGHT PLUS PELVIS Referring clinician's provided indication for this examination in [facility]:Pain COMPARISON: XR HIP 2 VW RIGHT PLUS PELVIS IMPRESSION: There is unchanged sclerosis of the right femoral head with superiorsubchondral collapse. Sclerosis of the acetabulum is also seen. Findingsare most compatible with avascular necrosis with secondary osteoarthritisand findings are stable. Left hip preserved. Degenerative changes of thelower lumbar spine. Hernia clips seen throughout the pelvis. Linus Herman [facility] IMG XR PELVIS Lennie l Result documented in this encounter Visit Diagnoses Diagnosis Pain- Primary Generalized pain Pain Generalized pain documented in this encounter Care Teams J2Ee Developer Relationship Specialty Start Date End Date Celestina Trinidad MD [address] [address] PCP - General Internal Medicine 12/03/23 documented as of this encounter Additional Source Comments The information contained in this document represents components of the legal health record. It is not the complete legal health record.[facility]
--- OUTSIDE RECORDS SUMMARY | 2025-06-11 17:06 | XMS_ITS | Clinical Summary ---
Author Organization [facility] Address [address] [place] [address] Care Team Providers Care Car Body Designer Name Role Phone Celestina Trinidad Primary Care Provider Allergies No known active allergies Medications diclofenac sodium 1 % kit See Instructions, APPLY TO AFFECTED AREA 4 TIMES A DAY, # 100 Gm, 1 Refills, Maintenance, 11/07/23 7:48:00 EDT, [facility]/pharmacy #[id number], 25, APPLY TO AFFECTED AREA 4 TIMES A DAY, 157.5, cm, 10/18/23 15:15:00 EDT, Height, 145.9, kg, 05/22/23 7:39:00 EDT, . 4 Active metFORMIN ER (RIOMET ER) 500 [...] 05/20/2024 Depression Screening and Follow-Up 07/30/2024 Social SPO Medical of Health Annual Screening 07/30/2024 COVID-19 Vaccine ( season) 2025 05/02/2024, 12/04/2023, 05/15/2023, Additional history exists Influenza Vaccine (#1) 2025 , 06/08/2022, 05/06/2021, Additional history exists DTaP,Tdap,and Td Vaccines (3 - Td or Tdap) 08/21/2032 08/21/2022, 08/13/2012 Hepatitis B Vaccines Aged Out No long er eligible based on patient's age to complete this topic Insurance [facility] MEDICARE Care Teams Car Body Designer Relationship Specialty Start Date End Date [facility] [address] [address] PCP - General Internal Medicine 12/10/23
--- OUTSIDE RECORDS SUMMARY | 2025-06-11 17:06 | XMS_ITS | Clinical Summary ---
Author Organization [facility] Address [address] [place] [address] Phone Care Team Providers Care Procurement Assistant Name Role Phone Celestina Trinidad MD Primary [...] needed for pain (specific location in comments). 06/14/20 Active levothyroxine (SYNTHROID, LEVOTHROID) 137 MCG tablet Take 175 mcg by mouth daily. 1 tablet 6 days a week and 2 tablets on day #7 11/09/19 Active acetaminophen (TYLENOL) 325 mg tablet Take 2 tablets (650 mg total) by mouth every 6 (six) hours as needed. 0 07/01/20 Active Additional Information Patient taking differently:650 mg Oral Every 6 hours PRN,pain (specific location in comments), Reported on 06/03/2025 amLODIPine (NORVASC) 5 MG tablet Take 1 tablet (5 mg total) by mouth daily. 30 tablet 07/02/20 Active VITAMIN D3 50 mcg (2,000 unit) capsule Take 4,000 Units by mouth every morning. 10/08/19 Active DULERA 50-5 mcg/actuation HFAA PLEASE SEE ATTACHED FOR DETAILED DIRECTIONS 08/30/19 Active oxyCODONE 5 MG immediate release tablet Take 5 mg by mouth every 8 (eight) hours as needed. 10/22/19 Active ZEPBOUND 10 mg/0.5 mL subcutaneous pen Inject 12.5 mg under the skin once a week. Active tiZANidine (ZANAFLEX) 4 MG tablet PLEASE SEE ATTACHED FOR DETAILED DIRECTIONS 11/22/19 Discontin ued(No longer taking) metFORMIN (GLUCOPHAGE-XR) 500 MG 24 hr tablet Take 1 tablet by mouth every morning. 11/20/19 Discontin ued(No longer taking) gabapentin (NEURONTIN) 300 MG capsule Take 600 mg by mouth. 08/25/19 Discontin ued(No longer taking) ketorolac (TORADOL) 10 mg tablet Take 1 tablet (10 mg total) by mouth every 6 (six) hours as needed for pain (specific location in comments). 16 tablet 04/15/20 Discontin ued(No longer taking) Active Problems Problem Noted Date Diagnosed Date [...] Encounters Date Type Department Care Team Description 06/04/2025 Orders Only VIRTUAL DEPARTMENT [address] [place] [address] Rey Sullivan PA-C Avascular necrosis of bone of right hip (Primary Dx) 06/03/2025 1:00 PM EST Office Visit [facility] Department of Orthopaedics [address] [place] [address] [facility] Avascular necrosis of bone of right hip (Primary Dx) 06/03/2025 11:59 AM EST - 06/03/2025 11:59 PM EST Hospital Encounter [facility] Diagnostic X-ray Imaging, [place] [address] [place] [address] Linus Herman MBChB Discharge Disposition: Home or Self Care 05/25/2025 Orders Only [facility] Department of Orthopaedics [address] [place] [address] Gilman Rebecca Pain (Primary Dx) 04/15/2025 12:52 PM EDT - 04/15/2025 6:02 PM EDT Emergency [facility] [address] [place] [address] Discharge Disposition: Home or Self Care from [...] EDT Inhaled Oxygen Concentration - - Weight 130.2 kg (287 lb) 06/03/2025 1:16 PM EST Height 159.4 cm (5' 2.75 ) 06/03/2025 1:16 PM ES T Body Mass Index 51.25 06/03/2025 1:16 PM EST Plan of Treatment Upcoming Encounters Date Type Department Care Team (Late st Contact Info) Description 10/27/2025 Hospital Encounter [facility] Periop [address] [place] [id number] Linus Herman, [address] [address] [email or web address] 10/27/2025 Procedure Pass [facility] Periop [address] [place] [phone] Scheduled Procedures Name Priority Associated Diagnoses Date/Ti me REPLACEMENT TOTAL HIP ANTERIOR Avascular necrosis of bone of right hip Health Maintenance Due Date Last Done Comments [...] 2025 05/02/2024, 12/04/2023, 05/15/2023, Additional history exists SCREENING FOR DIABETES 04/15/2028 04/15/2025, 2021 COLONOSCOPY 09/17/2028 09/17/2018 COLORECTAL CANCER SCREENING 09/17/2028 ZOSTER VACCINES Completed 08/20/2024, 05/02/2024 HEPATITIS A VACCINES Aged Out No long er eligible based on patient's age to complete this topic HIB VACCINES Aged Out No longer eligi ble based on patient's age to complete this topic IPV VACCINES Aged Out No longer eligi ble based on patient's age to complete this topic MENINGOCOCCAL VACCINES (ACWY) Aged Out No longer eligible based on patient's age to complete this topic MENINGOCOCCAL VACCINES (B) Aged Out N o longer eligible based on patient's age to complete this topic Medical Devices Not on file Procedures Procedure Name Priority Date/Time Associated Diagnosis Comments XR HIP 2 VW RIGHT PLUS PELVIS Routine 06/03/2025 12:32 PM EST Pain LIPASE STAT 04/15/2025 2:14 PM EDT LFTS (HEPATIC PANEL) STAT 04/15/2025 2:14 PM EDT CBC AND DIFFERENTIAL STAT 04/15/2025 2:14 PM EDT BASIC METABOLIC PANEL (BMP) STAT 04/15/2025 2:14 PM EDT XR CHEST PA AND LATERAL 2 VIEWS Routine 04/15/2025 2:08 PM EDT URINALYSIS WITH REFLEX TO URINE CULTURE STAT 04/15/2025 2:03 PM EDT ENDOSCOPY, COLON 09/17/2018 1:17 PM EST THYROID STIMULATING HORMONE (TSH) Routine 08/20/2018 2:30 PM EST Change in bowel habits from Last 3 Months or Most Recently Relevant to Health Maintenance Results * XR HIP 2 VW RIGHT [...] clinician's provided indication for this examination in [facility]: Pain COMPARISON: XR HIP 2 VW RIGHT PLUS PELVIS Procedure Note Babak Holden MD - 06/03/2025 XR HIP 2 VW RIGHT PLUS PELVIS Referring clinician's provided indication for this examination in [facility]:Pain COMPARISON: XR HIP 2 VW RIGHT PLUS PELVIS IMPRESSION: There is unchanged sclerosis of the right femoral head with superiorsubchondral collapse. Sclerosis of the acetabulum is also seen. Findingsare most compatible with avascular necrosis with secondary osteoarthritisand findings are stable. Left hip preserved. Degenerative changes of thelower lumbar spine. Hernia clips seen throughout the pelvis. Linus Herman [facility] IMG XR PELVIS Lennie l Result * (ABNORMAL) LFTs (hepatic panel) (04/15/2025 2:14 PM EDT) ALKALINE PHOSPHATASE 123(H) 39 - 117 U/L [facility] TOTAL BILIRUBIN 0.4 0.0 - 1.2 mg/dL [facility] DIRECT BILIRUBIN <0.1 0.0 - 0.2 mg/dL [facility] Bilirubin (Indirect) NOT CALCULATED 0 - 1.5 mg/dL [facility] AST 21 0 - 37 U/L [facility] ALT 13 0 - 40 U/L [facility] TOTAL PROTEIN 8.0 6.5 - 8.0 g/dL [facility] ALBUMIN 4.4 3.9 - 4.8 g/dL [facility] GLOBULIN 3.6 1 - 4.8 g/dL [facility] A/G Ratio 1.22 1.00 - 4.80 RATIO [facility] Blood 04/15/2025 2:14 PM EDT 04/15/2025 2:28 PM EDT us Gladys Berman PA-C LAB BLOOD BKR ORDERAB LES Final Result Performing Organization Address City/State/[facility] Co de Phone Number [address] [address] * CBC and differential (04/15/2025 2:14 PM EDT) WBC 7.14 4.00 - 11.00 K/uL [facility] RBC 4.20 4.00 - 5.20 M/uL [facility] HGB 13.0 12.0 - 16.0 g/dL [facility] HCT 40.3 36.0 - 46.0 % [facility] PLT 343 150 - 450 K/uL [facility] MCV 96.0 80.0 - 100.0 [facility] MCH 31.0 27.0 - 31.0 pg [facility] MCHC 32.3 32.0 - 36.0 g/dL [facility] RDW 13.1 11.5 - 14.5 % [facility] MPV 9.3 8.4 - 12.0 [facility] NRBC 0.00 0.00 /100 WBCs [facility] ABSOLUTE NRBC 0.00 0.00 K/uL [facility] DIFF METHOD Auto [facility] NEUTS 63.0 48.0 - 76.0 % [facility] LYMPHS 24.2 18.0 - 41.0 % [facility] MONOS 7.7 4.0 - 11.0 % [facility] EOS 3.9 0.0 - 5.0 % [facility] BASOS 0.8 0.0 - 1.5 % [facility] Granulocytes, immature (%) 0.4 0.0 - 0.9 % [facility] ABSOLUTE NEUTS 4.49 1.92 - 7.60 K/uL [facility] ABSOLUTE LYMPHS 1.73 0.72 - 4.10 K/uL [facility] ABSOLUTE MONOS 0.55 0.16 - 1.10 K/uL [facility] ABSOLUTE EOS 0.28 0.00 - 0.50 K/uL [facility] ABSOLUTE BASOS 0.06 0.00 - 0.15 K/uL [facility] Granulocytes, immature 0.03 0.00 - 0.09 K/uL [facility] Blood 04/15/2025 2:14 PM EDT 04/15/2025 2:28 PM EDT us Gladys Berman PA-C LAB BLOOD BKR ORDERAB LES Final Result [address] [address] * Lipase (04/15/2025 2:14 PM EDT) LIPASE 21 16 - 63 U/L [facility] Blood 04/15/2025 2:14 PM EDT 04/15/2025 2:28 PM EDT us Gladys Berman PA-C LAB BLOOD BKR ORDERAB LES Final Result [address] [address] * (ABNORMAL) Basic metabolic panel (04/15/2025 2:14 PM EDT) SODIUM 136 133 - 146 mmol/L [facility] CHLORIDE 100 96 - 108 mmol/L [facility] POTASSIUM 4.6 3.3 - 5.1 mmol/L [facility] Comment:Specimen slightly he molyzed, result may be falsely elevated. CO2 25 21 - 35 mmol/L [facility] BUN 15 6 - 19 mg/dL [facility] CREATININE 0.60 0.5 - 1.5 mg/dL [facility] GLUCOSE 103(H) 70 - 99 mg/dL [facility] CALCIUM 9.3 8.4 - 10.3 mg/dL [facility] EGFR 101 >59 mL/min/1.7 3m2 [facility] Comment:Estimated glomerular filtration rate calculated using the CKD-EPI refit equation. ANION GAP 16 10 - 20 mmol/L [facility] Blood 04/15/2025 2:14 PM EDT 04/15/2025 2:28 PM EDT us Gladys Berman PA-C LAB BLOOD BKR ORDERAB LES Final Result Performing Organization Address City/State/[facility] Co de Phone Number [address] [address] * XR CHEST PA AND LATERAL 2 VIEWS (04/15/2025 2:08 PM EDT) Anatomical Region Laterality Modality Chest Computed Radiogr aphy 04/15/2025 2:41 PM EDT Impressions 04/15/2025 2:53 PM EDT No acute abnormality. ATTESTATION: I, Anjum Miller as teaching physician, have reviewed the images for this case and if necessary edited the report originally created by Gladys Menjivar. Narrative 04/15/2025 2:53 PM EDT XR CHEST PA AND LATERAL 2 VIEWS Referring clinician's provided indication for this examination in Epic: Pain COMPARISON: [facility] CHEST SINGLE VIEW E088 FINDINGS: Devices/Tubes/Lines: None. Lungs: No focal consolidation or pulmonary edema. Pleura: No pleural effusion or pneumothorax. Heart/Mediastinum: Normal heart size. Bones/Soft Tissues: No acute abnormality. Mild degenerative changes of the spine. Left shoulder arthroplasty. Procedure Note Anjum Miller MD - 04/15/2025 XR CHEST PA AND LATERAL 2 VIEWS Referring clinician's provided indication for this examination in [facility]:Pain COMPARISON: [facility] CHEST SINGLE VIEW E088 FINDINGS: Devices/Tubes/Lines: None. Lungs: No focal consolidation or pulmonary edema. Pleura: No pleural effusion or pneumothorax. Heart/Mediastinum: Normal heart size. Bones/Soft Tissues: No acute abnormality. Mild degenerative changes of thespine. Left shoulder arthroplasty. IMPRESSION: No acute abnormality. ATTESTATION: I, Anjum Miller as teaching physician, have reviewed theimages for this case and if necessary edited the report originally createdby Gladys Menjivar. us Gladys Berman PA-C IMG XR CHEST Final Result * Urinalysis w/reflex Urine Culture (04/15/2025 2:03 PM EDT) COLOR Yellow Yellow [facility] CLARITY Clear [facility] GLUCOSE Negative Negative [facility] BILI Negative Negative [facility] KETONES Negative Negative [facility] SPECIFIC GRAVITY 1.010 1.005 - 1.030 [facility] BLOOD Negative Negative [facility] PH 6.0 5.0 - 8.0 [facility] Protein-UA Negative Negative [facility] NITRITE Negative Negative [facility] Leukocyte esterase, ur Negative Negative [facility] Urine (Urine) 04/15/2025 2:0 3 PM EDT 04/15/2025 3:01 PM EDT us Gladys Berman PA-C LAB URINE ORDERABLES Final Result [facility] [address] [place] [address] * ENDOSCOPY, COLON (09/17/2018 1:17 PM EST) Narrative Transcriptions Chuck Britt MD - 09/17/2018 1:17 PM EST Patient Name: Lilli Immanuel Attending MD:: CHUCK BRITT MD Procedure Date: 09/17/2018 1:17 PM Date of : 1960 Age: 58 Admit Type: Outpatient Gender: Female Room: [place] [address] Referring MD: PATRIKC FOSTER MD Exam Type: Colonoscopy Indications: Last colonoscopy: [...] monitored continuously. The Olympus adult variable colonoscope [id number] #6 was introduced through the anus and [...] Fibercon, Konsyl or Metamucil. - Reassurance CHUCK BRITT MD 09/17/2018 2:03:18 PM This report has been signed electronically. Number of Addenda: 0 Note Initiated On: 09/17/2018 1:17 PM Procedure Code(s): --- Professional --- 32048, Colonoscopy, flexible; diagnostic, including collection of specimen(s) by brushing or washing, when performed (separateprocedure) --- Technical --- 79333, Colonoscopy, flexible; diagnostic, including collection of specimen(s) by brushing or washing, when performed (separateprocedure) Diagnosis Code(s): --- Professional --- Z86.010, Personal history of colonic polyps R19.4, Change in bowel habit --- Technical --- Z86.010, Personal history of colonic polyps R19.4, Change in bowel habit CPT copyright 2016 [employer]. All rights reserved. The codes documented in this report are preliminary and upon guest attendant reviewmay be revised to meet current compliance requirements. [address] [place] [id number] us Patrick Foster MD GI PROCEDURE ORDERABLES Lennie l Result * (ABNORMAL) TSH (08/20/2018 2:30 PM EST) TSH 29.06(H) 0.27 - 4.20 uIU/mL [facility] Blood 08/20/2018 2:30 PM EST 08/20/2018 2:38 PM EST us Cece Sheth PA-C LAB BLOOD BKR ORDERABLES Final Result [address] [address] from Last 3 Months or Most Recently Relevant to Health Maintenance Insurance MEDICARE PART A & B MEDICARE PART A & B MEDICARE PART A & B [facility] & [facility] Advance Directives For more information, please contact: [phone] (9AM - 5PM Bettye/[facility], Sunday-Sunday) * Full Code (Latest Code Status on File) Date Activated Date Inactivated Comments 07/01/2022 5:17 AM Question Answer Comments Code Status Confirmed With: PatientFamily Care Teams Procurement Assistant Relationship Specialty Start Date End Date [facility]est[facility] [address] [address] PCP - General Internal Medicine 12/03/23 Additional Source Comments The information contained in this document represents components of the legal health record. It is not the complete legal health record.[facility]
== END 2025-06-11 14:34 | disposition home or self-care (01) ==
PROVIDERS: PCP Pediatrics; Visit Provider Registered Nurse Emergency
DX: M16.11 Unilateral primary osteoarthritis, right hip (principal); M16.10 Unilateral primary osteoarthritis, unspecified hip; M25.551 Pain in right hip
CPT/HCPCS: 99213; G2211

== ENCOUNTER → 2025-06-11 13:44 | Outpatient (BNVA) | payer MEDICARE, MEDICAID, SELFPAY | PROVIDERS: PCP Pediatrics; Visit Provider Registered Nurse Emergency | DX: M25.551 Pain in right hip (principal); M16.11 Unilateral primary osteoarthritis, right hip | CPT/HCPCS: 99212 ==